=== PATIENT | female | born 1965 | race Caucasian/White ===

== ENCOUNTER 2018-07-25 12:23 | Emergency (ER) | payer SELFPAY ==
[2018-07-25 12:41] VITALS: BP 156/85; PULSE 91; RESP 18; TEMP 36.6; O2SAT 98
--- NOTE | 2018-07-25 13:03 | ED.GENADUL_ITS ---
Discharge Plan Disposition Condition: Improving Discharge Details Chief Complaint: Nausea/Vomit/Diar Clinical Impression: Gastroenteritis, UTI (urinary tract infection) Primary Care Provider: Terese Fischer ED Provider: Rashid Barakat Home Meds and New Rx's Prescriptions: New ciprofloxacin HCl [Cipro] 500 mg tablet 500 mg PO BID Qty: 10 RF: 0 No Action lisinopril 20 MG tablet 20 mg PO DAILY RF: 0 atenolol 50 MG tablet 50 mg PO DAILY Qty: 30 RF: 0 metformin 500 MG tablet 500 mg PO BID@0800,1700 Qty: 30 RF: 1 ibuprofen [Ibuprofen IB] 200 mg Tablet 600 mg PO QID PRNRF: 0 Discharge Instructions Instructions: Urinary Tract Infection in Women (ED) Additional Instructions: Small, frequent sips of fluids to maintain hydration. May use popsicles as well. Please take antibiotics as prescribed both for urinary tract infection and complicated diarrheal illness. Return for any acute concerns. Follow-up with regular doctor if not improving in 5-7 days time Medical Decision Making 53-year-old female presents from home with 1 week of nausea, intermittent episodes of nonbilious, nonbloody emesis, and loose watery stool but is also been nonbloody. Denies recent travel or suspicious food contacts. She states that she feels weak and lightheaded but is not had syncope. She has not had a fever. She is well-appearing with a reassuring exam but does appear clinically dehydrated. Differential diagnosis includes gastroenteritis, colitis, dehydration or electrolyte abnormalities. Patient had IV access established, screening labs obtained, given parenteral fluids and antiemetic. Labs reveal positive urinary tract infection with nitrates and leukoesterase. White blood cell count is 6, hematocrit 40, platelets 280. Chemistries essentially reassuring. Improved following fluids and antiemetic, able to take a popsicle by mouth. She does have both may be a complicated diarrhea and urinary tract infection I do feel treatment with fluoroquinolone is appropriate. Discussed with her home management as well as follow-up and return precautions. HPI General Mode of arrival: ambulatory . Date/Time Provider Initiated Documentation: 07/25/18 12:28 . Limitations to Documentation: no limitations . History of Present Illness 53 year old F presents to the emergency department with the chief complaint of Nausea, vomiting, loose watery stools without blood over days time, described as moderate, Quality is described as burning and aching, and is localized to the abdomen. Patient reports no radiation. Patient started experiencing this day(s) and it has been constant. No relieving factors improve symptom(s), Eating worsens symptoms . Patient notes fever/chills and nausea/vomiting. Patient did receive the following treatments prior to arrival, none Related Data Home Medications Medication Instructions Recorded Confirmed lisinopril 20 mg PO DAILY 06/18/15 07/25/18 atenolol 50 mg PO DAILY #30 tablet 01/12/16 07/25/18 metformin 500 mg PO BID@0800,1700 #30 tab 09/03/17 07/25/18 ciprofloxacin HCl [Cipro] 500 mg PO BID #10 tab 07/25/18 ibuprofen [Ibuprofen IB] 600 mg PO QID PRN 07/25/18 07/25/18 Previous Rx's Medication Instructions Recorded atenolol 50 mg PO DAILY #30 tablet 01/12/16 metformin 500 mg PO BID@0800,1700 #30 tab 09/03/17 ciprofloxacin HCl [Cipro] 500 mg PO BID #10 tab 07/25/18 Allergies Allergy/AdvReac Type Severity Reaction Status Date / Time Sulfa (Sulfonamide Allergy Hives Unverified 07/25/18 12:49 Antibiotics) General Stated Complaint: Nausea/Vomit/Diar NELSY: 3 Review of Systems Review of Systems 6 systems are reviewed and otherwise negative PFSH Social History Smoking/Tobacco Use Status: Never History History Para 5 Hx # Term Pregnancies Multiple births Hx # Pregnancies Ectopic pregnancies AB induced Hx Number of Living Children AB spontaneous Exam Narrative Exam Narrative: GEN: awake, alert, oriented 3. Pleasant, well groomed, interactive. HEAD: Normocephalic, atraumatic ENT: Mucous membranes dry, oropharynx unremarkable, External ear exam unremarkable EYES: PERRL, EOMI NECK: Full ROM, no DELORES, no menigismus CHEST/RESP: Nontender, clear to auscultation bilateral, no wheeze/rhonchi/rales CARDIOVASCULAR: RRR, no murmur, rub cindy. 2+ Rad pulse bilateral ABDOMEN: Soft, nontender, no mass. +Bowel sounds EXT: Full ROM, no edema, no rash Neuro: Grossly normal neurologic exam, conversant, interactive. Psych: Speech fluent, thoughts congruent, affect normal Course Vital Signs Temperature 36.6 C 07/25/18 12:41 Pulse 91 H 07/25/18 12:41 Respiratory Rate 18 07/25/18 12:41 Blood Pressure 156/85 H 07/25/18 12:41 Pulse Oximetry 98 07/25/18 12:41 Temperature 36.6 C 07/25/18 12:41 Temperature Source Oral 07/25/18 12:41 Pulse 91 H 07/25/18 12:41 Respiratory Rate 18 07/25/18 12:41 Respiratory Effort Non-Labored 07/25/18 12:47 Blood Pressure 156/85 H 07/25/18 12:41 Blood Pressure Position Sitting 07/25/18 12:41 Pulse Oximetry 98 07/25/18 12:41 Oxygen Delivery Method Room Air 07/25/18 12:41 Oxygen Flow Rate 0 07/25/18 12:41 Pain Level 4 07/25/18 12:41
[2018-07-25 13:16] LABS: Bilirubin Negative (Negative); Blood Trace-lysed (Negative); Clarity Sl Cloudy; Glucose Negative (Negative); Ketones Negative (Negative); Leukocyte Esterase Trace (Negative); Nitrite Positive (Negative); Specific Gravity 1.025 (1.005-1.025)
[2018-07-25] MEDS: Lactated Ringers 1,000 ML 2000 ML IV (13:20)
[2018-07-25 13:23] LABS: Bacteria Many HPF (Negative); C & S Indicated? No/Sq. Contamination; Casts Negative LPF (Negative); Crystals Negative HPF (Negative); Epithelial Cells Many HPF (Negative); Mucus Trace (Negative)
[2018-07-25] MEDS: Ondansetron 4 MG/2 ML VIAL IVP (13:29)
[2018-07-25 13:43] LABS: Abs Immature Grans 0.01 k/cumm (0.0-0.09); HCT 40.6 % (36.0-46.0); HGB 14.3 g/dL (12.0-15.5); Mean Corp. HGB Concentration 35.2 g/dL (32.0-36.0); Mean Corpuscular Volume 88.1 fL (80-95); Mean Platelet Volume 11.7 fL (8.0-11.0); Platelet Count 280 x1000/uL (130-400); RBC 4.61 m/cumm (4.00-5.20); White Blood Cell Count 6.32 k/cumm (4.4-10.8)
[2018-07-25 13:54] LABS: ALT 30 U/L (12-78); AST 13 U/L (15-37); Albumin 3.5 g/dL (3.4-5.0); Alkaline Phosphatase 99 U/L (46-116); Anion Gap 7.9 mmol/L (3-11); BUN 12 mg/dL (7-18); Bilirubin, Total 0.2 mg/dL (0.2-1.0); CO2 28.1 mmol/L (21.0-32.0); CREATININE 0.71 mg/dL (0.55-1.02); Calcium 8.8 mg/dL (8.5-10.1); Chloride 106 mmol/L (98-107); Glucose 127 mg/dL (70-100); Lipase 127 U/L (73-393); Magnesium 1.6 mg/dL (1.8-2.4); Potassium 3.8 mmol/L (3.5-5.1); Sodium 142 mmol/L (136-145); Total Protein 6.7 g/dL (6.4-8.2)
[2018-07-25 13:56] LABS: Absolute Eosinophil Count 0.44 k/cumm (0.0-0.7); Absolute Lymphocyte Count 2.15 k/cumm (1.2-3.4); Absolute Neutrophil Count 3.03 k/cumm (1.2-6.7); Atypical Lymphocytes % 6; Diff Comment Manual Differential; RBC Morphology Normal
[2018-07-25] MEDS: MAGNESIUM SULFATE 1 GM/100 ML BAG IVPB (14:28)
[2018-07-25 14:34] VITALS: BP 153/88; PULSE 69; RESP 12; TEMP 37; O2SAT 97
[2018-07-25 15:52] VITALS: BP 147/104; PULSE 68; RESP 16; O2SAT 99
== END 2018-07-25 16:01 | disposition home or self-care (01) ==
PROVIDERS: Emergency Provider Emergency Medicine; PCP Nurse Practitioner Family
DX: K52.9 Noninfective gastroenteritis and colitis, unspecified (principal); N39.0 Urinary tract infection, site not specified
CPT/HCPCS: 80053; 83690; 96365; 99284; 81003; 81015; 83735; 85025; J2405; J3475

== ENCOUNTER 2018-10-15 00:05 | Emergency (ER) | payer SELFPAY ==
[2018-10-15 00:08] VITALS: BP 153/89; PULSE 98; RESP 16; TEMP 36.5; O2SAT 98
--- NOTE | 2018-10-15 00:22 | W.ED.GENAD ---
Discharge Plan Disposition Patient Disposition: HOME Condition: Improving Discharge Details Chief Complaint: Sorethroat Clinical Impression: Right shoulder strain, Acute pharyngitis Primary Care Provider: Terese Fischer ED Provider: Rashid Barakat Home Meds and New Rx's Prescriptions: Continued lisinopril 20 MG tablet 20 mg PO DAILY RF: 0 atenolol 50 MG tablet 50 mg PO DAILY Qty: 30 RF: 0 metformin 500 MG tablet 500 mg PO BID@0800,1700 Qty: 30 RF: 1 ibuprofen [Ibuprofen IB] 200 mg Tablet 600 mg PO QID PRNRF: 0 Discharge Instructions Instructions: Pharyngitis (ED) Additional Instructions: Wear sling as needed for comfort after work and in the evenings for 3-5 days time. Gentle range of motion exercises as we discussed. May use Lidoderm patch 12 hours on, 12 hours off. Ibuprofen as needed for pain. Best taken with food. Follow-up with Terese Fischer if not improving in 1 week's time. Return to the emergency department for any acute concerns. 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 She complains of a mild sore throat and of achy right shoulder pain that is worse after her job. Afebrile and well-appearing. Her exam is reassuring and notable for right anterior glenoid tenderness without motor or sensory dysfunction. Rapid strep test obtained and negative. Sore throat likely secondary to viral URI. Patient offered Lidoderm patch and sling. Discussed with the range of motion exercises. She will be treated with acetaminophen. Given single one-time dose of dexamethasone for anti-inflammatory properties. HPI General Mode of arrival: ambulatory. Date/Time Provider Initiated Documentation: 10/15/18 00:06. Limitations to Documentation: no limitations. Information obtained by: patient. History of Present Illness 53 year old F presents to the emergency department with the chief complaint of Right shoulder pain and sore throat, described as moderate, Quality is described as aching, dull and constant, and is localized to the right and upper extremity. Patient reports no radiation. Patient started experiencing this hour(s) and it has been constant. Rest improves symptom(s), Movement worsens symptoms . Patient notes other (Sore throat and runny nose); denies chest pain, cough, fever/chills and rash. Patient did receive the following treatments prior to arrival, none Related Data Home Medications Medication Instructions Recorded Confirmed lisinopril 20 mg PO DAILY 06/18/15 10/15/18 atenolol 50 mg PO DAILY #30 tablet 01/12/16 10/15/18 metformin 500 mg PO BID@0800,1700 #30 tab 09/03/17 10/15/18 ibuprofen [Ibuprofen IB] 600 mg PO QID PRN 07/25/18 10/15/18 Previous Rx's Medication Instructions Recorded atenolol 50 mg PO DAILY #30 tablet 01/12/16 metformin 500 mg PO BID@0800,1700 #30 tab 09/03/17 Allergies Allergy/AdvReac Type Severity Reaction Status Date / Time Sulfa (Sulfonamide Allergy Hives Unverified 07/25/18 12:49 Antibiotics) General Stated Complaint: Sorethroat NELSY: 4 Review of Systems Review of Systems 6 systems reviewed and otherwise negative. 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 Pleasant, well groomed, interactive. HEAD: Normocephalic, atraumatic ENT: Mucous membranes moist, oropharynx unremarkable mild erythema to the tonsillar pillars without exudate or, External ear exam unremarkable EYES: PERRL, EOMI NECK: Full ROM, no DELORES, no menigismus CHEST/RESP: Nontender, clear to auscultation bilateral, no wheeze/rhonchi/rales CARDIOVASCULAR: RRR, no murmur, rub cindy. 2+ Rad pulse bilateral ABDOMEN: Soft, nontender, no mass. +Bowel sounds EXT: Full ROM, no edema, no rash. Right anterior shoulder tender to palpation. Motor is 5 out of 5. Sensation intact throughout. Neuro: Grossly normal neurologic exam, conversant, interactive. Psych: Speech fluent, thoughts congruent, affect normal Course Vital Signs Temperature 36.5 C 10/15/18 00:08 Pulse 98 H 10/15/18 00:08 Respiratory Rate 16 10/15/18 00:08 Blood Pressure 153/89 H 10/15/18 00:08 Pulse Oximetry 98 10/15/18 00:08 Temperature 36.5 C 10/15/18 00:08 Temperature Source Temporal Artery Scan 10/15/18 00:08 Pulse 98 H 10/15/18 00:08 Respiratory Rate 16 10/15/18 00:08 Respiratory Effort 10/15/18 00:11 Blood Pressure 153/89 H 10/15/18 00:08 Blood Pressure Position Sitting 10/15/18 00:08 Pulse Oximetry 98 10/15/18 00:08 Oxygen Delivery Method Room Air 10/15/18 00:08 Oxygen Flow Rate 0 10/15/18 00:08 Comment 10/15/18 00:08
[2018-10-15] MEDS: Dexamethasone 4 MG TAB 8 MG PO (00:33)
[2018-10-15] MEDS: Lidocaine 5% Patch 2 PATCH TP (00:33)
[2018-10-15] MEDS: Acetaminophen 500 MG TAB 1000 MG PO (00:33)
== END 2018-10-15 00:40 | disposition home or self-care (01) ==
LOC: ER 00:42
PROVIDERS: Emergency Provider Emergency Medicine; PCP Nurse Practitioner Family
DX: J02.9 Acute pharyngitis, unspecified (principal); S46.911A Strain of unspecified muscle, fascia and tendon at shoulder and upper arm level, right arm, initial encounter; X50.3XXA Overexertion from repetitive movements, initial encounter
CPT/HCPCS: 99283; J8540; L3650

== ENCOUNTER 2018-11-29 00:15 | Observation (INO) | payer SELFPAY ==
[2018-11-29] VITALS (49 sets, daily range): BP systolic 139–195; BP diastolic 69–149; PULSE 74–99; RESP 14–37; TEMP 35.7–36.6; O2SAT 94–100
--- NOTE | 2018-11-29 01:19 | W.ED.GENAD ---
Discharge Plan Disposition Patient Disposition: [facility] INPATIENT Condition: Fair Discharge Details Chief Complaint: Chest Pain Clinical Impression: Hypertensive urgency, Left arm numbness, Left arm weakness Primary Care Provider: Terese Fischer ED Provider: Heriberto Romero [place] Meds and New Rx's Prescriptions: No Action lisinopril 20 MG tablet 20 mg PO DAILY RF: 0 atenolol 50 MG tablet 50 mg PO DAILY Qty: 30 RF: 0 metformin 500 MG tablet 500 mg PO BID@0800,1700 Qty: 30 RF: 1 ibuprofen [Ibuprofen IB] 200 mg Tablet 600 mg PO QID PRNRF: 0 amlodipine 10 mg Tablet 10 mg PO DAILY RF: 0 Medical Decision Making Patient presenting with complaints of upper back pain and neck pain with associated left arm neurologic symptoms. She is hypertensive. Differential includes dissection, TIA, hypertensive urgency. Her NIH scale is 0 despite her complaining that her left arm still does not feel right. EKG is normal. We will establish IV and get laboratory studies including troponin. Dissection needs to be ruled out so we will get CTA of chest and neck. In discussion with county program technician, no good way to continue this up to brain. Obtained a noncontrast CT head. Will maintain on monitor but as of now no evidence of arrhythmia. Laboratory studies unremarkable other than slightly low potassium and glucose a little high. CT head is negative. CT chest and neck is negative. Patient's blood pressure is still elevated but better than on arrival. She remains unchanged neurologically. Should complete her evaluation with MRI of the brain and ECHO of the heart. There are no telemetry beds upstairs currently but in discussion with the hospitalist he thinks they will be in the morning. We will therefore hold the patient in the ER. Hospitalist, Dr. Gerardo, has seen the patient and put in admission orders. Lab Data Lab results reviewed: Yes I reviewed the patient's lab results. ECG Data Attestation: I personally reviewed and interpreted this ECG (s) as follows: Interpretation: Normal sinus rhythm at 75. Normal axis and intervals. No ST changes. HPI General Mode of arrival: ambulatory. Date/Time Provider Initiated Documentation: 11/29/18 00:54. Limitations to Documentation: no limitations. Information obtained by: patient and RN notes reviewed. HPI Narrative: Patient presents to ED stating she developed left arm weakness and numbness today at work. 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 Symptoms began around 5 PM. She was unable to use her left arm like she normally does and stand most of the groceries with her right arm. She developed some neck and back pain but denies having any chest pain. She denies headache. She felt a little dizzy on and off. There was no shortness of breath. She still states that her arm does not feel right although it is better. She could not afford to not finish her shift so once she finished she drove home which is up here and stopped in the ED. She has never had symptoms like this previously. She does have a history of hypertension and diabetes and has not been able to afford her medications for the last few weeks. She just got them filled today but has not taken them. Related Data Home Medications Medication Instructions Recorded Confirmed lisinopril 20 mg PO DAILY 06/18/15 11/29/18 atenolol 50 mg PO DAILY #30 tablet 01/12/16 11/29/18 metformin 500 mg PO BID@0800,1700 #30 tab 09/03/17 11/29/18 ibuprofen [Ibuprofen IB] 600 mg PO QID PRN 07/25/18 11/29/18 amlodipine 10 mg PO DAILY 11/29/18 11/29/18 Previous Rx's Medication Instructions Recorded atenolol 50 mg PO DAILY #30 tablet 01/12/16 metformin 500 mg PO BID@0800,1700 #30 tab 09/03/17 Allergies Allergy/AdvReac Type Severity Reaction Status Date / Time Sulfa (Sulfonamide Allergy Hives Unverified 07/25/18 12:49 Antibiotics) General Stated Complaint: Chest Pain NELSY: 2 Review of Systems Review of Systems 05/05 Review of Systems completed and is negative except as stated above in HPI (Systems reviewed: Const, Eyes, ENT, Resp, CV, GI, , MSK, Skin, Neuro) [facility] Medical History Diabetes mellitus (Chronic) Hypertension (Chronic) Surgical History History of tubal ligation (Chronic) Social History Smoking/Tobacco Use Status: Never Alcohol Intake: never Drug use: Never Substance use type: does not use Do you feel safe at home: Yes Do you feel safe in your relationship?: Yes History History Para 5 Hx # Term Pregnancies Multiple births Hx # Pregnancies Ectopic pregnancies AB induced Hx Number of Living Children AB spontaneous Exam Narrative Exam Narrative: Vitals: Hypertensive but otherwise normal. Normal oxygen saturation. Const: WDWN female in NAD. HEENT: NC/AT. Normal facial exam. Eyes: Normal conjunctiva and sclera. PERRL and EOMI. Neck: Supple. Trachea midline. Lungs: Normal respiratory effort. Lungs are clear. Cor: RRR without murmur/gallop. Good radial pulses. GI: Soft. NT/ND. No guarding or rebound. Neuro: A+O x 3. CN II - XII in tact. 5/5 strength with no drift. Sensory in tact. Gait normal. Speech normal. Ext: No C/C/E. No deformity or tenderness. Skin: Warm and dry without rash. Course Vital Signs Temperature 97.9 F 11/29/18 00:38 Pulse 89 11/29/18 00:38 Respiratory Rate 18 11/29/18 00:38 Blood Pressure 191/109 H 11/29/18 00:38 Pulse Oximetry 95 11/29/18 00:38 Temperature 97.9 F 11/29/18 00:38 Temperature Source Tympanic 11/29/18 00:38 Pulse 89 11/29/18 00:38 Respiratory Rate 18 11/29/18 01:08 Respiratory Effort 11/29/18 01:08 Respiratory Depth Normal 11/29/18 01:08 Respiratory Pattern Normal 11/29/18 01:08 Blood Pressure 191/109 H 11/29/18 00:38 Pulse Oximetry 95 11/29/18 00:38 Oxygen Delivery Method Room Air 11/29/18 00:38 Oxygen Flow Rate 0 11/29/18 00:38 Pain Level 5 11/29/18 00:38
--- NOTE | 2018-11-29 01:31 | DI.CT_ITS ---
SYMPTOM/DIAGNOSIS: NECK PAIN/LEFT ARM NUMBNESS/WEAKNESS CRANIAL CT (WITHOUT CONTRAST): 11/[address] was performed. The ventricular system is normal in appearance. There is no evidence of an intracranial mass lesion. There is no evidence of a subdural or epidural hematoma. No focal areas of decreased attenuation are seen. CONCLUSION: Normal noncontrast Cranial CT. CT ANGIOGRAPHY CHEST AND NECK: 11/29 CT angiography was performed with multi slice acquisition and multi planar and 3D reconstruction. CT angiography of the chest and neck was performed with intravenous infusion of 100 cc Omnipaque 350. Images obtained through the upper abdomen show unremarkable appearance of visualized portions of liver, spleen, pancreas, adrenals and left kidney. The abdominal aorta and visualized upper abdominal branches are normal. The lungs are clear. Tracheobronchial tree appears intact. No pleural effusion. No mediastinal or hilar adenopathy No evidence of pulmonary embolic disease. Thoracic aorta is of normal diameter and there is no evidence of dissection. Major branches of the aortic arch appear normal. Common carotid arteries are normal bilaterally. Internal carotid arteries are normal in appearance to the skull base with no evidence of aneurysm or dissection and no significant stenosis. Vertebral arteries, left dominant circulation. No evidence of vertebral artery stenosis, aneurysm or dissection on either side. No cervical mass or adenopathy seen. CONCLUSION: Negative CTA chest/neck
[2018-11-29 02:09] LABS: Abs Immature Grans 0.02 k/cumm (0.0-0.09); Absolute Basophil Count 0.02 k/cumm (0.0-0.2); Absolute Eosinophil Count 0.29 k/cumm (0.0-0.7); Absolute Lymphocyte Count 3.88 k/cumm (1.2-3.4); Absolute Monocyte Count 0.73 k/cumm (0.11-0.7); Absolute Neutrophil Count 3.37 k/cumm (1.2-6.7); Basophils % 0.2; Eosinophils % 3.5; HCT 40.7 % (36.0-46.0); HGB 14.7 g/dL (12.0-15.5); Immature Grans % 0.2; Lymphocytes % 46.7; Mean Corp. HGB Concentration 36.1 g/dL (32.0-36.0); Mean Corpuscular Hemoglobin 31.1 pg (27.0-33.0); Mean Corpuscular Volume 86.2 fL (80-95); Mean Platelet Volume 11.6 fL (8.0-11.0); Monocytes % 8.8; Neutrophils % 40.6; Platelet Count 287 x1000/uL (130-400); RBC 4.72 m/cumm (4.00-5.20); RBC Distribution Width 12.2 % (11.7-14.6); White Blood Cell Count 8.31 k/cumm (4.4-10.8)
[2018-11-29] MEDS: Normal Saline 1,000 ML 125 ML IV (02:12)
[2018-11-29 02:22] LABS: ALT 51 U/L (12-78); AST 27 U/L (15-37); Albumin 3.7 g/dL (3.4-5.0); Alkaline Phosphatase 131 U/L (46-116); Anion Gap 10.1 mmol/L (3-11); BUN 9 mg/dL (7-18); Bilirubin, Total 0.2 mg/dL (0.2-1.0); CO2 26.9 mmol/L (21.0-32.0); CREATININE 0.59 mg/dL (0.55-1.02); Calcium 8.8 mg/dL (8.5-10.1); Chloride 102 mmol/L (98-107); Glucose 196 mg/dL (70-100); Magnesium 1.8 mg/dL (1.8-2.4); Potassium 3.4 mmol/L (3.5-5.1); Sodium 139 mmol/L (136-145); Troponin I 0.02 ng/mL (0.00-0.06)
[2018-11-29 02:42] LABS: INR 0.9 (0.9-1.1); PTT Activated 25.2 sec (21.0-31.4); Prothrombin Time 9.3 sec (9.3-11.0)
--- NOTE | 2018-11-29 03:17 | DI.VRAD_ITS ---
EXAM: CT Head Without Contrast EXAM DATE/TIME: 11/29/2018 1:19 AM CLINICAL HISTORY: 53 years old, female; Signs and symptoms; Weakness, extremity; Left; Patient HX: L arm weakness TECHNIQUE: Imaging protocol: Axial computed tomography images of the head/brain without contrast. Coronal and sagittal reformatted images were created and reviewed. Radiation optimization: All CT scans at this facility use at least one of these dose optimization techniques: automated exposure control; mA and/or kV adjustment per patient size (includes targeted exams where dose is matched to clinical indication); or iterative reconstruction. COMPARISON: No relevant prior studies available. FINDINGS: Brain: Normal. No hemorrhage. No significant white matter disease. No edema. Ventricles: Normal. No ventriculomegaly. Bones/joints: Unremarkable. No acute fracture. Sinuses: Visualized sinuses are unremarkable. No acute sinusitis. Mastoid air cells: Visualized mastoid air cells are unremarkable. No mastoid effusion. Soft tissues: Unremarkable. IMPRESSION: No acute intracranial abnormality. Dictated and Authenticated by: Dusty Weber MD. Ordering:MALIKA Louis MD
--- NOTE | 2018-11-29 03:18 | DI.VRAD_ITS ---
EXAM: CT Angiography Neck With Contrast EXAM DATE/TIME: 11/29/2018 1:19 AM CLINICAL HISTORY: 53 years old, female; Signs and symptoms; Cough and other: L arm weakness, back pain, L side numbness; Patient HX: Back pain/left arm numbness/weakness TECHNIQUE: Imaging protocol: Axial computed tomographic angiography images of the neck with intravenous contrast using CT angiography protocol. 3D rendering: MIP reconstructed images were created and reviewed. Radiation optimization: All CT scans at this facility use at least one of these dose optimization techniques: automated exposure control; mA and/or kV adjustment per patient size (includes targeted exams where dose is matched to clinical indication); or iterative reconstruction. COMPARISON: No relevant prior studies available. FINDINGS: VASCULATURE: Right common carotid artery: Normal. No significant stenosis. No dissection or occlusion. Right internal carotid artery: Normal. Extracranial segment is patent with no significant stenosis. No dissection or occlusion. Right external carotid artery: Normal. No occlusion or significant stenosis. Right vertebral artery: Normal. No significant stenosis. No dissection or occlusion. Left common carotid artery: Normal. No significant stenosis. No dissection or occlusion. Left internal carotid artery: Normal. Extracranial segment is patent with no significant stenosis. No dissection or occlusion. Left external carotid artery: Normal. No occlusion or significant stenosis. Left vertebral artery: Normal. No significant stenosis. No dissection or occlusion. NECK: Bones/joints: C5-6 predominant degenerative disk disease and facet arthropathy with neuroforaminal and canal stenosis. Soft tissues: Normal. No significant soft tissue swelling. IMPRESSION: No acute finding. Dictated and Authenticated by: Dusty Weber MD. Ordering:MALIKA Louis MD
[2018-11-29] MEDS: Omnipaque 350 MG/ML 100 ML BTL IJ (03:26)
--- NOTE | 2018-11-29 04:40 | W.PM.HP.N ---
Date of service: 11/29/18 Time of Service: 04:40 Assessment and Plan (1) Hypertensive urgency: Current visit: Yes Status: Acute Her acute neurologic symptoms may have been secondary to hypertensive urgency in setting of microvascular disease, however, we have not completely ruled out a CVA. I will check MRI/MRA of her brain this a.m. and continue to monitor her on telemetry while she is here. I will begin treatment of her HTN w/ resumption of her prior meds but try to not drop her BP too much or too rapidly. If her MRI/MRA does not confirm a CVA then she can be discharged home once her bp is under reasonable control i.e. under 160 systolic. (2) TIA (transient ischemic attack): Current visit: Yes Status: Suspected will keep her on ASA and begin a statin while we check her MRI/MRA of the brain. She will also get an echo while she is here. If no evidence for embolic disease or PAF then she will remain on ASA 81 mg daily. (3) Diabetes mellitus type 2 in obese: Current visit: Yes Status: Chronic will withold her metformin for now as she had iv contrast. monitor glucose AC and give prn novolog per insulin sensitive sliding scale. check her A1C. (4) Essential hypertension: Current visit: Yes Status: Chronic as above. need to be cautious about not dropping her BP too rapidly and possibly worsen her neuro symptoms History of Present Illness Chief Complaint: out of bp meds, L. arm numb/heavy, weak Narrative: 53-year-old female non-smoker with a history of type 2 diabetes mellitus treated with metformin and a history of essential hypertension treated with amlodipine and lisinopril who reportedly has been out of her medications for the last 2 weeks. She has no health insurance despite working for [employer] in [facility]. Today she was at work around 5 PM when she had acute onset of left arm weakness and a feeling of heaviness in her left shoulder and arm radiating down to her left hand. 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 She is right-handed dominant. She finished up her shift around 10:30 PM and picked up her who was at work in [facility] and her encouraged her to come to the emergency department. She arrived to the emergency department around 12:30 AM. She had associated symptoms of headache and dizziness and nausea. The headache was bifrontal in location and she also noted some interscapular back pain and neck pain. On arrival to the emergency department she was noted to be hypertensive with systolic blood pressures as high as 191 and diastolic pressure of 109. Because of her acute headache and neck and back pain she underwent a CTA of her chest and neck to rule out a dissecting aneurysm. CT angiography of her neck showed no significant cervical vascular occlusion or stenosis or dissection. Bones and joints of the neck showed C5-6 predominant degenerative disc disease and facet arthropathy with neuroforaminal canal stenosis. She had no soft tissue swelling. Thoracic CTA showed no acute findings. Noncontrast CT scan of her head showed no acute intracranial abnormalities. Her ECG showed normal sinus rhythm with an isolated PVC but no acute ischemic ST or T wave changes. Laboratory studies include a CMP, magnesium level, troponin level, pro time and PTT and CBC. CMP was remarkable for elevated glucose of 196 and potassium of 3.4. Renal liver function tests were normal. Coagulation profile was normal and CBC was unremarkable. Troponin was negative at 0.02. Dr. Romero call me to see about admitting to the patient to the medical floor without telemetry. I advised him because of her hypertensive presentation and TIA like symptoms she will need telemetry monitoring. We anticipate one of our ICU beds opening up this morning and therefore the patient will be admitted temporarily to the emergency room for continued telemetry monitoring while we pursue completion of TIA work-up including an MRI/MRA of the brain and an echocardiogram. Patient will be resumed on her usual blood pressure medications. Once a telemetry bed opens up patient will be admitted overnight while her blood pressure is brought under control. I ordered a dose of aspirin 3 and 24 mg chewable to be given to the patient. Review of Systems Constitutional Reports system reviewed and no additional complaints, except as docu and Reports weakness Eyes Reports system reviewed and no additional complaints, except as docu, Denies blurry vision, Denies change in vision and Denies loss of vision ENT Reports system reviewed and no additional complaints, except as docu Cardiovascular Reports chest pain with activity and Reports dyspnea on exertion Respiratory Reports dyspnea on exertion Gastrointestinal Reports nausea and Denies vomiting Genitourinary Reports system reviewed and no additional complaints, except as docu Musculoskeletal Reports muscle weakness and Reports numbness Integumentary/Breasts Reports system reviewed and no additional complaints, except as docu Neurologic Reports as per HPI, Denies abnormal movements, Denies abnormal speech, Denies confusion, Reports lack of coordination, Reports focal weakness (Left arm and left hand), Denies loss of vision, Reports numbness, Reports paresthesias and Reports weakness Psychiatric Reports system reviewed and no additional complaints, except as docu and Denies confusion Endocrine Reports system reviewed and no additional complaints, except as docu Hematologic/Lymphatic Reports system reviewed and no additional complaints, except as docu Allergic/Immunologic Reports system reviewed and no additional complaints, except as docu PFSH Medical History Diabetes mellitus type 2 in obese (Chronic) Essential hypertension (Chronic) Diabetes mellitus (Chronic) Hypertension (Chronic) Surgical History History of tubal ligation (Resolved) Social History Smoking/Tobacco Use Status: Never Alcohol Intake: never Drug use: Never Substance use type: does not use Do you feel safe at home: Yes Do you feel safe in your relationship?: Yes History History 6 Para 5 Hx # Term Pregnancies Multiple births Hx # Pregnancies Ectopic pregnancies AB induced Hx Number of Living Children AB spontaneous Meds Home Medications Medication Instructions Recorded Confirmed Type lisinopril 20 mg PO DAILY 06/18/15 11/29/18 History atenolol 50 mg PO DAILY #30 tablet 01/12/16 11/29/18 Rx metformin 500 mg PO BID@0800,1700 #30 tab 09/03/17 11/29/18 Rx ibuprofen [Ibuprofen IB] 600 mg PO QID PRN 07/25/18 11/29/18 History amlodipine 10 mg PO DAILY 11/29/18 11/29/18 History Allergies Allergy/AdvReac Type Severity Reaction Status Date / Time Sulfa (Sulfonamide Allergy Hives Unverified 07/25/18 12:49 Antibiotics) Exam Const General: cooperative, comfortable and no acute distress Nutritional Appearance: overweight Orientation: alert, awake and oriented x3 HENMT Head: normal to inspection, no palpable skull fracture, normocephalic and atraumatic Ears: hearing grossly normal bilaterally, external ears normal and TM's normal bilaterally General nose exam: external nose normal, nares normal and nasal mucous membranes and turbinates normal Face and sinus: normal facial exam Mouth: oral mucosae normal and oropharynx normal Teeth and gingiva: dentition normal Throat: posterior oropharynx normal Eyes General: appearance normal, both eyes and all related structures Visual Hess: normal visual hess by confrontation Alignment and Position: alignment normal Periorbital: periorbital findings normal Eyelids: eyelids normal Conjunctivae: conjunctivae normal Sclera: sclerae normal Cornea: corneas normal Pupils: PERRL EOM: EOM intact bilaterally Direct ophthalmoscopy: normal light reflex Resp Effort & Inspection: normal respiratory effort and able to speak in complete sentences Auscultation: clear to auscultation bilaterally Cardio Jugular venous pressure: no JVD Palpation: normal PMI Rate: regular rate Rhythm: regular rhythm Heart Sounds: S1 normal, S2 normal, normal, physiologic split S2, no gallops, no murmurs and no rubs Pulses: normal peripheral pulses GI Inspection: obesity Palpation: soft and no hepatosplenomegaly Percussion: normal to percussion Auscultation: normal bowel sounds Back/Spine/Pelvis Back: no CVA tenderness Cervical Spine: normal cervical lordosis and cervical ROM normal Thoracic/Lumbar Spine: thoracic and lumbar spine normal to inspection Skin General skin exam: no rashes or lesions noted, elasticity normal and turgor normal Neuro General: alert, awake, oriented x3, moves all extremities, normal light touch, pain and propioception and no focal motor deficits Cranial Nerves: CN's II-XI intact bilaterally, PERRL, accommodation normal, EOM intact bilaterally, no nystagmus, facial strength normal, tongue midline, gag reflex normal, hearing normal, able to rotate head bilaterally and able to elevate shoulders bilaterally Cognition: normal cognition Speech: speech normal Motor: muscle tone normal throughout, strength 5/5 throughout, no pronator drift, no movement abnormalities noted and no fasciculations Sensory Exam: no sensory deficits noted and normal double simultaneous stimulation Plantar Reflexes: Downgoing: right and Equivocal: left Coordination: [id number] test abnormal (some difficulty w/ finger to nose testing w/ her left hand; hesitancy) Pupils: Normal pupillary reactivity/response: bilateral and Mid position: bilateral Extrem General: normal to inspection, full ROM, normal capillary refill, no joint enlargement and no clubbing, cyanosis or edema Psych Appearance: grossly normal Mental Status: mental status grossly normal Speech and Movement: speech and movement normal Mood: congruent mood Affect: normal affect Attitude: cooperative Thought Process: normal Thought Content: normal Insight: insight good Judgment: judgment good Results Imaging Additional studies: CT angiogram of neck: IMPRESSION: No acute finding. CT head w/out contrast: IMPRESSION: No acute intracranial abnormality. EKG: image reviewed Labs : 11/29/18 01:55 11/29/18 01:55 Laboratory Results - last 24 hr 11/29/18 11/29/18 11/29/18 01:55 01:55 01:55 WBC 8.31 RBC 4.72 Hgb 14.7 Hct 40.7 MCV 86.2 MCH 31.1 MCHC 36.1 H RDW 12.2 Plt Count 287 MPV 11.6 H Immature Gran % 0.2 Neutrophils % 40.6 Lymphocytes % 46.7 Monocytes % 8.8 Eosinophils % 3.5 Basophils % 0.2 Absolute Neutrophils 3.37 Absolute Lymphocytes 3.88 H Absolute Monocytes 0.73 H Absolute Eosinophils 0.29 Absolute Basophils 0.02 PT 9.3 INR 0.9 APTT 25.2 Sodium 139 Potassium 3.4 L Chloride 102 Carbon Dioxide 26.9 Anion Gap 10.1 BUN 9 Creatinine 0.59 Estimated GFR/1.73 m2 >= 60.00 Glucose 196 H Calcium 8.8 Magnesium 1.8 Total Bilirubin 0.2 AST 27 ALT 51 Alkaline Phosphatase 131 H Troponin I 0.02 Total Protein 7.0 Albumin 3.7 Last Vital Signs Temp 36.6 C 11/29/18 00:38 Pulse 82 11/29/18 03:46 Resp 20 11/29/18 03:50 BP 172/96 H 11/29/18 03:46 Pulse Ox 95 11/29/18 03:50
[2018-11-29] MEDS: Aspirin 81 MG CHEW 324 MG CH (05:37)
[2018-11-29 06:18] LABS: Cholesterol 214 mg/dL (50-200); HDL Cholesterol 65 mg/dL (40-60); LDL CHOLESTEROL 118 mg/dL (<100); Triglyceride 190 mg/dL (30-150)
--- NOTE | 2018-11-29 06:44 | NUR.NOTE ---
Nursing Note: Pt up to bathroom with steady gait. Pt's breakfast is here.
[2018-11-29 06:50] LABS: Hemoglobin A1C 7.3 % (4.5-6.2)
--- NOTE | 2018-11-29 07:00 | DI.MRI_ITS ---
SYMPTOM/DIAGNOSIS: TIA BRAIN MRI: 11/29 MRI examination of the brain was performed according to the usual protocol. There are a few scattered focal areas of increased signal in periventricular white matter consistent with mild microvascular ischemic change. No other signal abnormality identified in the brain. Ventricular system is normal in appearance. Orbital and temporal bone structures appear intact. There is normal flow void in the [place] vasculature. Diffusion weighted images shows no evidence of intracranial infarct. Susceptibility weighted imaging shows no evidence of hemorrhage. CONCLUSION: Brain MRI essentially negative for age. MR ANGIOGRAPHY [place]: 11/29 MR angiography of the region of [place] was performed according to the usual protocol. There is a left dominant vertebral circulation, Vertebral and basilar arteries appear normal. Intracranial internal carotid arteries appear normal, no evidence of aneurysm, stenosis or dissection. The middle cerebral arteries and major branches appear normal bilaterally with no evidence of aneurysm, stenosis or dissection. Anterior cerebral arteries appear normal bilaterally with no evidence of aneurysm, stenosis or dissection. Posterior cerebral arteries appear normal bilaterally with no evidence of aneurysm, stenosis or dissection. CONCLUSION: Negative MR angiography [place].
[2018-11-29] MEDS: Insulin Aspart 300 UNITS/3 ML PEN SC ×3 (07:11→16:50)
--- NOTE | 2018-11-29 07:30 | MERGE_ITS ---
*[facility]* * Cardiology* [address] [place] [address] Date of study: 11/29/2018 Transthoracic Echocardiography M-mode, complete 2D, complete spectral Doppler, and color Doppler *STUDY CONCLUSIONS* Summary: 1. Left ventricle: The cavity size was normal. Systolic function was hyperdynamic. The estimated ejection fraction was 65-70%. Findings consistent with diastolic dysfunction. There was no evidence of elevated ventricular filling pressure by Doppler parameters. 2. Aortic valve: There was mild regurgitation. 3. Mitral valve: There was mild regurgitation. 4. Left atrium: The atrium was mildly dilated. 5. Right ventricle: The cavity size was normal. Wall thickness was normal. Systolic function was normal. 6. Atrial septum: No defect or patent foramen ovale was identified. 7. Tricuspid valve: There was moderate regurgitation. 8. Pulmonary arteries: Pulmonary systolic pressure was in the range of 35mm Hg to 45mm Hg. 9. Inferior vena cava: The vessel was patent and normal in size. The respirophasic diameter changes were in the normal range (greater than or equal to 50%), consistent with normal central venous pressure. 10. Baseline ECG: Normal sinus rhythm. *PATIENT PRESENTATION* Height: 167.6cm ((66in) ) S/D Pressure: 159 / 94 Weight: 92.1kg ((202.6lb) ) BSA: 2.1m^2 Test start time: 07:45 AM. Test stop time: 08:40 AM. PERFORMING Unknown PERFORMING Nv ORDERING Michael Gerardo REFERRING Michael Gerardo CONSULTING Terese Fischer SUPERVISING EDITOR NEWS REELSHILPA Matthews RT Roth)(CT), RDCS *PROCEDURE DATA* Procedure information: The patient was identified by two identifiers. This study was interpreted by [facility]. Pertinent images and digital data are archived for permanent storage and are available for subsequent review. No prior study was available for comparison. Study status: Routine. Transthoracic echocardiography. M-mode, complete 2D, complete spectral Doppler, and color Doppler. A Transthoracic Echocardiogram was performed. Scanning was performed from the parasternal, apical, subcostal, and suprasternal notch acoustic windows. Images were obtained using an [id number] cardiac ultrasound machine. Image quality was good. Study completion: The patient tolerated the procedure well. History: PMH: TIA , left arm weakness,. dizziness. *CARDIAC ANATOMY* Left ventricle: The cavity size was normal. Systolic function was hyperdynamic. The estimated ejection fraction was 65-70%. The tissue Doppler parameters were abnormal. Findings consistent with diastolic dysfunction. There was no evidence of elevated ventricular filling pressure by Doppler parameters. Aortic valve: Trileaflet. Doppler: There was no stenosis. There was mild regurgitation. VTI ratio of LVOT to aortic valve: 0.77. Valve area (VTI): 2.3cm^2. Indexed valve area (VTI): 1.1cm^2/m^2. Peak velocity ratio of LVOT to aortic valve: 0.74. Valve area (Vmax): 2.2cm^2. Indexed valve area (Vmax): 1.1cm^2/m^2. Mean velocity ratio of LVOT to aortic valve: 0.75. Valve area (Vmean): 2.2cm^2. Indexed valve area (Vmean): 1.1cm^2/m^2. Mean gradient (S): 6.2mm Hg. Peak gradient (S): 12mm Hg. Aorta: Aortic root: The aortic root was normal in size. Ascending aorta: The ascending aorta was mildly dilated. Mitral valve: Doppler: There was no evidence for stenosis. There was mild regurgitation. Valve area by pressure half-time: 3.3cm^2. Indexed valve area by pressure half-time: 1.5cm^2/m^2. Peak gradient (D): 2.2mm Hg. Left atrium: The atrium was mildly dilated. Atrial septum: No defect or patent foramen ovale was identified. Right ventricle: The cavity size was normal. Wall thickness was normal. Systolic function was normal. Pulmonic valve: Doppler: There was no evidence for stenosis. There was no significant regurgitation. Peak gradient (S): 2.9mm Hg. Tricuspid valve: Doppler: There was moderate regurgitation. Pulmonary artery: Poorly visualized. Pulmonary systolic pressure was in the range of 35mm Hg to 45mm Hg. Right atrium: The atrium was normal in size. Pericardium: There was no pericardial effusion. Systemic veins: Inferior vena cava: Well visualized. The vessel was patent and normal in size. The respirophasic diameter changes were in the normal range (greater than or equal to 50%), consistent with normal central venous pressure. Baseline ECG: Normal sinus rhythm. Measurements Left ventricle Value Reference LV ID, ED, PLAX 4.4 cm 3.5 - 6.0 LV ID, ES, PLAX 2.8 cm 2.1 - 4.0 LV PW thickness, ED, PLAX 1.1 cm LV end-diastolic volume, 1-p A2C 65 ml LV ejection fraction, 1-p A2C 67 % LV end-diastolic volume, 1-p A4C 67 ml LV ejection fraction, 1-p A4C 64 % LV e', lateral 0.084 m/sec LV E/e', lateral 9 LV e', medial 0.069 m/sec LV E/e', medial 11 LV e', average 0.076 m/sec LV E/e', average 10 Ventricular septum Value Reference IVS thickness, ED, PLAX 1.1 cm LVOT Value Reference LVOT ID, A-P 2.0 cm LVOT area 3 cm^2 LVOT peak velocity, S 1.28 m/sec LVOT mean velocity, S 0.88 m/sec LVOT VTI, S 26.3 cm LVOT peak gradient, S 6.6 mm Hg LVOT mean gradient, S 3.5 mm Hg Stroke volume (SV), LVOT DP 79 ml Stroke index (SV/bsa), LVOT DP 37 ml/m^2 Aortic valve Value Reference Aortic valve peak velocity, S 1.7 m/sec Aortic valve mean velocity, S 1.18 m/sec Aortic valve VTI, S 34.0 cm Aortic mean gradient, S 6.2 mm Hg Aortic peak gradient, S 12 mm Hg VTI ratio, LVOT/AV 0.77 Aortic valve area, VTI 2.3 cm^2 Velocity ratio, peak, LVOT/AV 0.74 Aortic valve area, peak velocity 2.2 cm^2 Velocity ratio, mean, LVOT/AV 0.75 Aortic valve area, mean velocity 2.2 cm^2 Aortic valve area/bsa, mean velocity 1.1 cm^2/m^2 Aorta Value Reference Aortic root ID, ED 2.9 cm Ascending aorta ID, A-P, S 3.4 cm Left atrium Value Reference LA ID, A-P, ES 3.8 cm LA ID/bsa, A-P 1.8 cm/m^2 <=2.2 LA area, ES, A4C 20.8 cm^2 8.8 - 23.4 LA area, ES, A2C 20 cm^2 LA volume/bsa, ES, 1-p A4C 35 ml/m^2 LA volume, ES, 2-p 64 ml LA volume/bsa, ES, 2-p 31 ml/m^2 LA/aortic root ratio 1.31 Mitral valve Value Reference Mitral E-wave peak velocity 0.74 m/sec Mitral A-wave peak velocity 0.89 m/sec Mitral deceleration time (H) 233 ms 150 - 230 Mitral pressure half-time 68 ms Mitral peak gradient, D 2.2 mm Hg Mitral E/A ratio, peak 0.83 Mitral valve area, PHT, DP 3.3 cm^2 Pulmonary veins Value Reference Pulmonary vein peak velocity, S 0.76 m/sec Pulmonary vein peak velocity, D 0.52 m/sec Pulmonary vein velocity ratio, peak, 1.45 S/D Pulmonary vein A-wave reversal peak 0.36 m/sec velocity Tricuspid valve Value Reference Tricuspid regurg peak velocity 3.1 m/sec Tricuspid peak RV-RA gradient 38.3 mm Hg Right atrium Value Reference RA area, ES, A4C 16.7 cm^2 8.3 - 19.5 Pulmonic valve Value Reference Pulmonic peak gradient, S 2.9 mm Hg Legend: (L) and (H) agustín values outside specified reference range. I have personally reviewed the images and have reviewed and edited the reported findings. Electronically signed by Dusty Villatoro MD 11/29/2018 10:06
--- NOTE | 2018-11-29 08:01 | CMPROGNOTE_ITS ---
Care Management Progress Note 11/29-Hayley Zuñiga RN, requested that Martha be followed by the clinical staff educator once she is admitted. Hayley reports that Martha does not check her blood sugars on a regular basis and she also drinks the coffee latte drinks from [employer], several a day. Martha is being admitted. This CM discussed above with inpatient care management for diabetic education.
[2018-11-29] MEDS: Lisinopril 20 MG TAB PO (11:04)
[2018-11-29] MEDS: amLODIPine 10 MG TAB PO (11:04)
--- NOTE | 2018-11-29 13:41 | DI.MRI_ITS ---
SYMPTOMS/DIAGNOSIS: SUSPECTED RADICULOPATHY, TRANSIENT ISCHEMIC ATTACK CERVICAL SPINE MRI: MRI examination of the cervical spine was performed according to the usual protocol. No significant bony signal abnormality seen. There is no significant narrowing of the bony spinal canal or bony neural foramina. Spinal cord shows normal signal and normal diameter throughout. Note is made of a small to moderate-sized right paracentral disc herniation at C5-6 with perhaps minimal cord deformity associated at this site. Slight narrowing of right neural foramen may be present at this level as well, but this is a questionable finding. No additional disc abnormality identified in the cervical region. CONCLUSION: Small to moderate-sized right paracentral disc herniation at C5-6; question minimal associated cord deformity. Please correlate clinically and with the patient's neurologic exam.
[2018-11-29] MEDS: Ibuprofen 600 MG TAB PO (16:50)
--- NOTE | 2018-11-29 18:18 | W.PM.DS.N ---
Date of service: 11/29/18 Time of Service: 18:18 DS: Diagnosis Discharge Diagnosis (1) Herniated nucleus pulposus, C5-6 right: Status: Acute (2) Atypical chest pain: Status: Chronic (3) Hypertensive urgency: Status: Acute (4) TIA (transient ischemic attack): Status: Ruled-out (5) Diabetes mellitus type 2 in obese: Status: Chronic (6) Essential hypertension: Status: Chronic (7) Radiculopathy affecting upper extremity: Status: Acute (8) Diastolic dysfunction: Status: Chronic (9) Pulmonary hypertension: Status: Chronic (10) GEOFF (obstructive sleep apnea): Status: Suspected Discharge Plan Disposition Patient Disposition: HOME Condition: Stable Discharge Details Reason For Visit: TIA Admit Date/Time: 11/29/18 04:34 Admit Provider: Dayo Gerardo Attending Provider: Dayo Gerardo Primary Care Provider: Terese Fischer [facility] Hospital Course: Ms Rodriguez is a 53 year old female with PMHx of NIDDM2, essential hypertension, obesity with BMI of 32.8, snoring, as well as medication noncompliance due to monitory concerns, who presented to [facility] ED and was observed briefly on 11/29/18 for Left arm numbness and heaviness going on since 5 pm on 11/28/18, thought to be a TIA. There was a little bit of chest pain that the patient states she always has, neck pain a little bit of Left shoulder pain. She describes occasional numbness and tingling in both of her hands. At the time of her presentation, her troponin was negative, her BP was 191/109. There was no evidence of ACS. Chest pain was chronic and not different from her normal. She was ruled out for TIA with negative CT/CTA of her head and neck, MRI/MRA of her head. She also underwent an echocardiogram revealing EF of 65-70%, diastolic dysfunction, pulmonary hypertension with PA pressures of 35 mmHg to 45 mmHg. Her symptoms essentially resolved. She did have an MRI of her c-spine, which revealed a Small to moderate-sized right paracentral disc herniation at C5-6; question minimal associated cord deformity. The findings noted were, of course, contralateral to the symptoms the patient was having. The MRI results were discussed with neurosurgery at [facility] - outpatient follow up was felt appropriate. Patient's information was communicated to [facility] neurosurgery, who will be contacting the patient for follow up. She will also benefit from a stress test as outpatient. Her BP's are much better controlled. She had no arrhythmic events on tele. She is being discharged with her current BP meds (I am writing her a refill). The patient also would benefit from a sleep study as outpatient. She is medically stable for discharge. Please, note that in the below medication reconcilliation discontinue metformin is a system glitch. The patient is to resume metformin in 48 hours. Home Meds and New Rx's Prescriptions: New atorvastatin [Lipitor] 40 mg Tablet 40 mg PO QPM Qty: 30 RF: 0 aspirin 81 mg Tablet,Delayed Release (Dr/Ec) 81 mg PO DAILY Qty: 30 RF: 0 acetaminophen [Tylenol] 325 mg Tablet 650 mg PO Q4H PRN PRNQty: 0 RF: 0 Continued lisinopril 20 MG tablet 20 mg PO DAILY Qty: 30 RF: 0 amlodipine 10 mg Tablet 10 mg PO DAILY Qty: 30 RF: 0 atenolol 50 MG tablet 50 mg PO DAILY Qty: 30 RF: 0 metformin 500 mg Tablet 500 mg PO BID Qty: 0 RF: 0 Changed ibuprofen [Ibuprofen IB] 200 mg Tablet 400 mg PO QID PRNQty: 0 RF: 0 Discontinued metformin 500 MG tablet 500 mg PO BID@0800,1700 Qty: 30 RF: 1 Discharge Instructions Instructions: Cardiac Stress Test (DC), Chest Pain (DC), Chronic Hypertension (DC), Cervical Radiculopathy (GEN), Chronic Neck Pain (DC) Additional Instructions: Resume metformin in 48 hours. Return to the hospital with any fever, bleeding, chest pain that's not like your usual chest pain, shortness of breath. Follow up with [facility] neurosurgery and for your stress test at [facility]. Contact [facility] neurosurgery at [phone] if you don't hear from them on Sunday or Sunday next week to schedule your appointment. Make sure you discuss getting a sleep study to rule out obstructive sleep apnea with your PCP. Activity:: Activity as Tolerated Equipment/Supplies:: No Equipment Needed Diet:: Diabetic cardiac Discharge Orders Discharge Orders: Discharge Order (Routine); Ordered 11/29/18 Ordered By: Mer Gilman Other Ambulatory Orders: Nuclear Medicine Stress Test (Outpt) (ONCE) Timeframe: [id number] Facility: [facility] - Location: CARDIAC LAB Ordered By: Mer Gilman Exam Narrative Exam Narrative: General: Very pleasant obese female, sitting up comfortably in bed, A&Ox3 HEENT: EOMI, MMM, poor dentition Heart: RRR, no m/r/g Lungs: CTAB GI: abdomen is soft, nontender, nondistended Extremities: no e/c/c BLE's, 2+ pedal pulses B DS: Data Vitals/I&O Vitals and I&O: Vital Signs Temperature 36.4 C L 11/29/18 15:59 Temperature Source Tympanic 11/29/18 15:59 Pulse 94 H 11/29/18 15:59 Pulse Rhythm Regular 11/29/18 15:50 Pulse 77 11/29/18 06:20 Respiratory Rate 18 11/29/18 15:59 Respiratory Effort 11/29/18 15:50 Respiratory Depth Normal 11/29/18 15:50 Respiratory Pattern Normal 11/29/18 15:50 Blood Pressure 139/90 11/29/18 15:59 Blood Pressure Mean 102 11/29/18 06:16 Pulse Oximetry 98 11/29/18 15:59 Oxygen Delivery Method Room Air 11/29/18 15:59 Oxygen Flow Rate 0 11/29/18 15:59 Pain Level 8 11/29/18 16:50 Comment 11/29/18 14:55 Intake & Output 11/28/18 11/29/18 11/29/18 23:59 11:59 23:59 Intake Total 988.333 / 988.333 Output Total 400 / 875 475 / 875 Balance -400 / 113.333 513.333 / 113.333 Weight 92.1 kg Intake: IV 748.333 / 748.333 Oral 240 / 240 Output: Urine 400 / 875 475 / 875 Other: Urine Color Yellow Yellow Urine Appearance Clear Clear Urine Odor Normal Voiding Methods Toilet Toilet Completed studies during hospitalization [Text1]: CT brain 11/29/18: Normal noncontrast Cranial CT. CTA chest and neck 11/29/18: Negative CTA chest/neck Brain MRI 11/29/18: Brain MRI essentially negative for age. Brain MRA 11/29/18: Negative MR angiography [place] [facility] [place]. Echo 11/29/18: 1. Left ventricle: The cavity size was normal. Systolic function was hyperdynamic. The estimated ejection fraction was 65-70%. Findings consistent with diastolic dysfunction. There was no evidence of elevated ventricular filling pressure by Doppler parameters. 2. Aortic valve: There was mild regurgitation. 3. Mitral valve: There was mild regurgitation. 4. Left atrium: The atrium was mildly dilated. 5. Right ventricle: The cavity size was normal. Wall thickness was normal. Systolic function was normal. 6. Atrial septum: No defect or patent foramen ovale was identified. 7. Tricuspid valve: There was moderate regurgitation. 8. Pulmonary arteries: Pulmonary systolic pressure was in the range of 35mm Hg to 45mm Hg. 9. Inferior vena cava: The vessel was patent and normal in size. The respirophasic diameter changes were in the normal range (greater than or equal to 50%), consistent with normal central venous pressure. 10. Baseline ECG: Normal sinus rhythm. MRI c-spine 11/29/18; Small to moderate-sized right paracentral disc herniation at C5-6; question minimal associated cord deformity. Please correlate clinically and with the patient's neurologic exam. Labs on day of discharge: Labs from last 24 hours 11/29/18 11/29/18 11/29/18 01:55 01:55 01:55 WBC 8.31 RBC 4.72 Hgb 14.7 Hct 40.7 MCV 86.2 MCH 31.1 MCHC 36.1 H RDW 12.2 Plt Count 287 MPV 11.6 H Immature Gran % 0.2 Neutrophils % 40.6 Lymphocytes % 46.7 Monocytes % 8.8 Eosinophils % 3.5 Basophils % 0.2 Absolute Neutrophils 3.37 Absolute Lymphocytes 3.88 H Absolute Monocytes 0.73 H Absolute Eosinophils 0.29 Absolute Basophils 0.02 PT INR APTT Sodium Potassium Chloride Carbon Dioxide Anion Gap BUN Creatinine Estimated GFR/1.73 m2 Glucose Hemoglobin A1c 7.3 H Calcium Magnesium Total Bilirubin AST ALT Alkaline Phosphatase Troponin I Total Protein Albumin Triglycerides 190 H Total Cholesterol 214 H LDL Cholesterol Direct 118 H HDL Cholesterol 65 H 11/29/18 11/29/18 01:55 01:55 WBC RBC Hgb Hct MCV MCH MCHC RDW Plt Count MPV Immature Gran % Neutrophils % Lymphocytes % Monocytes % Eosinophils % Basophils % Absolute Neutrophils Absolute Lymphocytes Absolute Monocytes Absolute Eosinophils Absolute Basophils PT 9.3 INR 0.9 APTT 25.2 Sodium 139 Potassium 3.4 L Chloride 102 Carbon Dioxide 26.9 Anion Gap 10.1 BUN 9 Creatinine 0.59 Estimated GFR/1.73 m2 >= 60.00 Glucose 196 H Hemoglobin A1c Calcium 8.8 Magnesium 1.8 Total Bilirubin 0.2 AST 27 ALT 51 Alkaline Phosphatase 131 H Troponin I 0.02 Total Protein 7.0 Albumin 3.7 Triglycerides Total Cholesterol LDL Cholesterol Direct HDL Cholesterol PFSH Medical History Diabetes mellitus type 2 in obese (Chronic) Essential hypertension (Chronic) Diabetes mellitus (Chronic) Hypertension (Chronic) Surgical History History of tubal ligation (Resolved) Social History Smoking/Tobacco Use Status: Never Alcohol Intake: never Drug use: Never Substance use type: does not use Do you feel safe at home: Yes Do you feel safe in your relationship?: Yes History History 6 Para 5 Hx # Term Pregnancies Multiple births Hx # Pregnancies Ectopic pregnancies AB induced Hx Number of Living Children AB spontaneous
--- NOTE | 2018-11-29 18:39 | DSE_ITS ---
Date of service: 11/29/18 Time of Service: 18:18 DS: Diagnosis Discharge Diagnosis (1) Herniated nucleus pulposus, C5-6 right: Status: Acute (2) Atypical chest pain: Status: Chronic (3) Hypertensive urgency: Status: Acute (4) TIA (transient ischemic attack): Status: Ruled-out (5) Diabetes mellitus type 2 in obese: Status: Chronic (6) Essential hypertension: Status: Chronic (7) Radiculopathy affecting upper extremity: Status: Acute (8) Diastolic dysfunction: Status: Chronic (9) Pulmonary hypertension: Status: Chronic (10) GEOFF (obstructive sleep apnea): Status: Suspected Discharge Plan Disposition Patient Disposition: HOME Condition: Stable Discharge Details Reason For Visit: TIA Admit Date/Time: 11/29/18 04:34 Admit Provider: Dayo Gerardo Attending Provider: Dayo Gerardo Primary Care Provider: Terese Fischer [facility] Course Hospital Course: Ms oRdriguez is a 53 year old female with PMHx of NIDDM2, essential hypertension, obesity with BMI of 32.8, snoring, as well as medication noncompliance due to monitory concerns, who presented to [facility] ED and was observed briefly on 11/29/18 for Left arm numbness and heaviness going on since 5 pm on 11/28/18, thought to be a TIA. There was a little bit of chest pain that the patient states she always has, neck pain a little bit of Left shoulder pain. She describes occasional numbness and tingling in both of her hands. At the time of her presentation, her troponin was negative, her BP was 191/109. There was no evidence of ACS. Chest pain was chronic and not different from her normal. She was ruled out for TIA with negative CT/CTA of her head and neck, MRI/MRA of her head. She also underwent an echocardiogram revealing EF of 65-70%, diastolic dysfunction, pulmonary hypertension with PA pressures of 35 mmHg to 45 mmHg. Her symptoms essentially resolved. She did have an MRI of her c-spine, which revealed a Small to moderate-sized right paracentral disc herniation at C5-6; question minimal associated cord deformity. The findings noted were, of course, contralateral to the symptoms the patient was having. The MRI results were discussed with neurosurgery at [facility] - outpatient follow up was felt appropriate. Patient's information was communicated to [facility] neurosurgery, who will be contacting the patient for follow up. She will also benefit from a stress test as outpatient. Her BP's are much better controlled. She had no arrhythmic events on tele. She is being discharged with her current BP meds (I am writing her a refill). The patient also would benefit from a sleep study as outpatient. She is medically stable for discharge. Please, note that in the below medication reconcilliation discontinue metformin is a system glitch. The patient is to resume metformin in 48 hours. Home Meds and New Rx's Prescriptions: New atorvastatin [Lipitor] 40 mg Tablet 40 mg PO QPM Qty: 30 RF: 0 aspirin 81 mg Tablet,Delayed Release (Dr/Ec) 81 mg PO DAILY Qty: 30 RF: 0 acetaminophen [Tylenol] 325 mg Tablet 650 mg PO Q4H PRN PRNQty: 0 RF: 0 Continued lisinopril 20 MG tablet 20 mg PO DAILY Qty: 30 RF: 0 amlodipine 10 mg Tablet 10 mg PO DAILY Qty: 30 RF: 0 atenolol 50 MG tablet 50 mg PO DAILY Qty: 30 RF: 0 metformin 500 mg Tablet 500 mg PO BID Qty: 0 RF: 0 Changed ibuprofen [Ibuprofen IB] 200 mg Tablet 400 mg PO QID PRNQty: 0 RF: 0 Discontinued metformin 500 MG tablet 500 mg PO BID@0800,1700 Qty: 30 RF: 1 Discharge Instructions Instructions: Cardiac Stress Test (DC), Chest Pain (DC), Chronic Hypertension (DC), Cervical Radiculopathy (GEN), Chronic Neck Pain (DC) Additional Instructions: Resume metformin in 48 hours. Return to the hospital with any fever, bleeding, chest pain that's not like your usual chest pain, shortness of breath. Follow up with [facility] neurosurgery and for your stress test at [facility]. Contact [facility] neurosurgery at [phone] if you don't hear from them on Sunday or Sunday next week to schedule your appointment. Make sure you discuss getting a sleep study to rule out obstructive sleep apnea with your PCP. Activity:: Activity as Tolerated Equipment/Supplies:: No Equipment Needed Diet:: Diabetic cardiac Discharge Orders Discharge Orders: Discharge Order (Routine); Ordered 11/29/18 Ordered By: Mer Gilman Other Ambulatory Orders: Nuclear Medicine Stress Test (Outpt) (ONCE) Timeframe: 20181206 Facility: [facility] - Location: CARDIAC LAB Ordered By: Mer Gilman Exam Narrative Exam Narrative: General: Very pleasant obese female, sitting up comfortably in bed, A&Ox3 HEENT: EOMI, MMM, poor dentition Heart: RRR, no m/r/g Lungs: CTAB GI: abdomen is soft, nontender, nondistended Extremities: no e/c/c BLE's, 2+ pedal pulses B DS: Data Vitals/I&O Vitals and I&O: Vital Signs Temperature 36.4 C L 11/29/18 15:59 Temperature Source Tympanic 11/29/18 15:59 Pulse 94 H 11/29/18 15:59 Pulse Rhythm Regular 11/29/18 15:50 Pulse 77 11/29/18 06:20 Respiratory Rate 18 11/29/18 15:59 Respiratory Effort 11/29/18 15:50 Respiratory Depth Normal 11/29/18 15:50 Respiratory Pattern Normal 11/29/18 15:50 Blood Pressure 139/90 11/29/18 15:59 Blood Pressure Mean 102 11/29/18 06:16 Pulse Oximetry 98 11/29/18 15:59 Oxygen Delivery Method Room Air 11/29/18 15:59 Oxygen Flow Rate 0 11/29/18 15:59 Pain Level 8 11/29/18 16:50 Comment 11/29/18 14:55 Intake & Output 11/28/18 11/29/18 11/29/18 23:59 11:59 23:59 Intake Total 988.333 / 988.333 Output Total 400 / 875 475 / 875 Balance -400 / 113.333 513.333 / 113.333 Weight 92.1 kg Intake: IV 748.333 / 748.333 Oral 240 / 240 Output: Urine 400 / 875 475 / 875 Other: Urine Color Yellow Yellow Urine Appearance Clear Clear Urine Odor Normal Voiding Methods Toilet Toilet Completed studies during hospitalization [Text1]: CT brain 11/29/18: Normal noncontrast Cranial CT. CTA chest and neck 11/29/18: Negative CTA chest/neck Brain MRI 11/29/18: Brain MRI essentially negative for age. Brain MRA 11/29/18: Negative MR angiography [place] [facility] [place]. Echo 11/29/18: 1. Left ventricle: The cavity size was normal. Systolic function was hyperdynamic. The estimated ejection fraction was 65-70%. Findings consistent with diastolic dysfunction. There was no evidence of elevated ventricular filling pressure by Doppler parameters. 2. Aortic valve: There was mild regurgitation. 3. Mitral valve: There was mild regurgitation. 4. Left atrium: The atrium was mildly dilated. 5. Right ventricle: The cavity size was normal. Wall thickness was normal. Systolic function was normal. 6. Atrial septum: No defect or patent foramen ovale was identified. 7. Tricuspid valve: There was moderate regurgitation. 8. Pulmonary arteries: Pulmonary systolic pressure was in the range of 35mm Hg to 45mm Hg. 9. Inferior vena cava: The vessel was patent and normal in size. The respirophasic diameter changes were in the normal range (greater than or equal to 50%), consistent with normal central venous pressure. 10. Baseline ECG: Normal sinus rhythm. MRI c-spine 11/29/18; Small to moderate-sized right paracentral disc herniation at C5-6; question minimal associated cord deformity. Please correlate clinically and with the patient's neurologic exam. Labs on day of discharge: Labs from last 24 hours 11/29/18 11/29/18 11/29/18 01:55 01:55 01:55 WBC 8.31 RBC 4.72 Hgb 14.7 Hct 40.7 MCV 86.2 MCH 31.1 MCHC 36.1 H RDW 12.2 Plt Count 287 MPV 11.6 H Immature Gran % 0.2 Neutrophils % 40.6 Lymphocytes % 46.7 Monocytes % 8.8 Eosinophils % 3.5 Basophils % 0.2 Absolute Neutrophils 3.37 Absolute Lymphocytes 3.88 H Absolute Monocytes 0.73 H Absolute Eosinophils 0.29 Absolute Basophils 0.02 PT INR APTT Sodium Potassium Chloride Carbon Dioxide Anion Gap BUN Creatinine Estimated GFR/1.73 m2 Glucose Hemoglobin A1c 7.3 H Calcium Magnesium Total Bilirubin AST ALT Alkaline Phosphatase Troponin I Total Protein Albumin Triglycerides 190 H Total Cholesterol 214 H LDL Cholesterol Direct 118 H HDL Cholesterol 65 H 11/29/18 11/29/18 01:55 01:55 WBC RBC Hgb Hct MCV MCH MCHC RDW Plt Count MPV Immature Gran % Neutrophils % Lymphocytes % Monocytes % Eosinophils % Basophils % Absolute Neutrophils Absolute Lymphocytes Absolute Monocytes Absolute Eosinophils Absolute Basophils PT 9.3 INR 0.9 APTT 25.2 Sodium 139 Potassium 3.4 L Chloride 102 Carbon Dioxide 26.9 Anion Gap 10.1 BUN 9 Creatinine 0.59 Estimated GFR/1.73 m2 >= 60.00 Glucose 196 H Hemoglobin A1c Calcium 8.8 Magnesium 1.8 Total Bilirubin 0.2 AST 27 ALT 51 Alkaline Phosphatase 131 H Troponin I 0.02 Total Protein 7.0 Albumin 3.7 Triglycerides Total Cholesterol LDL Cholesterol Direct HDL Cholesterol PFSH Medical History Diabetes mellitus type 2 in obese (Chronic) Essential hypertension (Chronic) Diabetes mellitus (Chronic) Hypertension (Chronic) Surgical History History of tubal ligation (Resolved) Social History Smoking/Tobacco Use Status: Never Alcohol Intake: never Drug use: Never Substance use type: does not use Do you feel safe at home: Yes Do you feel safe in your relationship?: Yes History History 6 Para 5 Hx # Term Pregnancies Multiple births Hx # Pregnancies Ectopic pregnancies AB induced Hx Number of Living Children AB spontaneous
[2018-11-29 19:14] LABS: Troponin I < 0.02 ng/mL (0.00-0.06)
== END 2018-11-29 19:40 | disposition home or self-care (01) ==
LOC: ER 09:45 → MS 10:14
PROVIDERS: Admitting Provider Internal Medicine; Emergency Provider Emergency Medicine; PCP Nurse Practitioner Family; Visit Provider Internal Medicine
DX: I16.0 Hypertensive urgency (principal); G45.9 Transient cerebral ischemic attack, unspecified; I10 Essential (primary) hypertension; T50.906A Underdosing of unspecified drugs, medicaments and biological substances, initial encounter; Z91.120 Patient's intentional underdosing of medication regimen due to financial hardship; M50.122 Cervical disc disorder at C5-C6 level with radiculopathy; R20.8 Other disturbances of skin sensation; E11.9 Type 2 diabetes mellitus without complications; E66.9 Obesity, unspecified; Z79.84 Long term (current) use of oral hypoglycemic drugs; I51.89 Other ill-defined heart diseases; I27.20 Pulmonary hypertension, unspecified; G47.33 Obstructive sleep apnea (adult) (pediatric); I08.3 Combined rheumatic disorders of mitral, aortic and tricuspid valves
CPT/HCPCS: 36415; 36416; 70498; 70544; 71275; 80053; 80061; 82962; 83721; 93005; 96360; 96361; 99217; 99220; 99285; 70450; 70551; 72141; 83036; 83735; 84484; 85025; 85610; 85730; 93010; 93306; G0378; J3490

== ENCOUNTER 2019-01-25 08:14 | Emergency (ER) | payer SELFPAY ==
--- NOTE | 2019-01-25 08:16 | W.ED.GENAD ---
Discharge Plan Disposition Patient Disposition: HOME Condition: Improving Discharge Details Chief Complaint: Dizzy/Sync Clinical Impression: Vertigo, Temporomandibular joint pain Primary Care Provider: Terese Fischer ED Provider: Yokasta Yi Home Meds and New Rx's Prescriptions: New ondansetron 4 mg tablet,disintegrating 4 mg PO QID PRN (Reason: nausea and vomiting) Qty: 14 RF: 0 meclizine 25 mg tablet 25 mg PO TID PRN (Reason: dizziness) Qty: 10 RF: 0 naproxen 250 mg tablet 250 mg PO BID PRN (Reason: pain) Qty: 20 RF: 0 Continued atorvastatin [Lipitor] 40 mg Tablet 40 mg PO QPM Qty: 30 RF: 0 aspirin 81 mg Tablet,Delayed Release (Dr/Ec) 81 mg PO DAILY Qty: 30 RF: 0 acetaminophen [Tylenol] 325 mg Tablet 650 mg PO Q4H PRN PRNQty: 0 RF: 0 lisinopril 20 MG tablet 20 mg PO DAILY Qty: 30 RF: 0 amlodipine 10 mg Tablet 10 mg PO DAILY Qty: 30 RF: 0 ibuprofen [Ibuprofen IB] 200 mg Tablet 400 mg PO QID PRNQty: 0 RF: 0 atenolol 50 MG tablet 50 mg PO DAILY Qty: 30 RF: 0 metformin 500 mg Tablet 500 mg PO BID Qty: 0 RF: 0 Discharge Instructions Instructions: Vertigo (ED), Temporomandibular Disorder (ED) Additional Instructions: Encourage hydration. Please use the Zofran as prescribed to help with nausea if this reoccurs. Use the meclizine as prescribed to help with any recurrence of your vertigo. Please rest today. In regard to your left-sided jaw pain, please take the naproxen as prescribed to help with inflammation. You may augment this with Tylenol as needed for discomfort. May try heat or ice to this area. Please follow up with primary care this week for reevaluation. If you develop headaches, visual changes, weakness, or develop with a new/worsening symptoms please seek care urgently once again. Stand Alone Forms: Work Release Referrals: Terese Fischer [Primary Care Provider] - Discharge Data Discharge Date/Time-TO BE ENTERED AT DEPARTURE: 01/25/19 10:12 Medical Decision Making Patient is a 49-year-old female presents today with chief complaint of vertigo. She reports she had issues with vertigo historically and typically responds very well to meclizine. States that she awoke with the symptoms this morning. Is currently endorsing the room spinning, particularly with movements to the right. She denies any headache or visual changes. No neurologic deficit. She is also endorsing an incidental finding of left TMJ pain that began a few days ago. States it is worse with talking, opening her mouth widely. Does not have any dental pain or pain with chewing. Pain elicited with palpation of the left TMJ. I do not see any evidence of infection. Left ear is unremarkable. Patient has no signs of infection. She is noted to be hypertensive with a blood pressure of 199/103. Patient reports that she typically has quite high blood pressure, it has been elevated like this historically on chart review. Patient medical history also significant for diabetes, GEOFF, radiculopathy, herniated disc, TIA, hypertension. [place]-Hallpike maneuver was performed and positive to the right side with horizontal nystagmus. Exam is otherwise benign. Patient I discussed performing the Carter maneuver and she prefers treatment with meclizine as this worked well for us to correct historically. Will give meclizine Zofran to help with symptom medic management. I do not feel that imaging or other work-up is necessary at this time. I also encouraged hydration as the patient does appear dehydrated. Advised that this is likely associated with the heat that we have been having recently may be exacerbating her symptoms Patient is feeling much improved after Zofran and meclizine is requesting discharge home. We will give her a work note for today. Encourage hydration. I will prescribed meclizine and Zofran to help with symptomatic management. We discussed the Carter maneuver which she declines at this time. We will give her information on how to perform this at home. Patient reports that she has not been able to order picker her typical hypertension medications, states she will try to pick them up today. Has been out for the past 4 to 5 days. I rechecked her blood pressure manually and she is now 170/100. She reports the typical for her, this is confirmed with chart review. Patient was given strict return precautions. To follow-up with primary care this week for reevaluation. She will order picker her hypertensive medications as well as the prescribed medications from here today. All her questions and concerns were addressed she is in agreement this plan. HPI General Mode of arrival: ambulatory. Date/Time Provider Initiated Documentation: 01/25/19 08:15. Limitations to Documentation: no limitations. Information obtained by: patient and RN notes reviewed. History of Present Illness 53 year old F presents to the emergency department with the chief complaint of vertigo, described as severe, with intensity rated at 8. Quality is described as aching (left TMJ), and is localized to the face. Patient reports no radiation. Patient started experiencing this hour(s) and it has been constant. No relieving factors improve symptom(s), No exacerbating factors reported . Patient notes nausea/vomiting (nausea with vertigo); denies chest pain, cough, diaphoresis, fever/chills, headaches, loss of appetite, rash, shortness of breath and weakness. Patient did receive the following treatments prior to arrival, none Related Data Home Medications Medication Instructions Recorded Confirmed acetaminophen [Tylenol] 650 mg PO Q4H PRN PRN #0 tab 11/29/18 01/25/19 amlodipine 10 mg PO DAILY #30 tab 11/29/18 01/25/19 aspirin 81 mg PO DAILY #30 tab 11/29/18 01/25/19 atenolol 50 mg PO DAILY #30 tab 11/29/18 01/25/19 atorvastatin [Lipitor] 40 mg PO QPM #30 tab 11/29/18 01/25/19 ibuprofen [Ibuprofen IB] 400 mg PO QID PRN #0 tab 11/29/18 01/25/19 lisinopril 20 mg PO DAILY #30 tab 11/29/18 01/25/19 metformin 500 mg PO BID #0 tab 11/29/18 01/25/19 meclizine 25 mg PO TID PRN #10 tab 01/25/19 naproxen 250 mg PO BID PRN #20 tab 01/25/19 ondansetron 4 mg PO QID PRN #14 tab 01/25/19 Previous Rx's Medication Instructions Recorded acetaminophen [Tylenol] 650 mg PO Q4H PRN PRN #0 tab 11/29/18 amlodipine 10 mg PO DAILY #30 tab 11/29/18 aspirin 81 mg PO DAILY #30 tab 11/29/18 atenolol 50 mg PO DAILY #30 tab 11/29/18 atorvastatin [Lipitor] 40 mg PO QPM #30 tab 11/29/18 ibuprofen [Ibuprofen IB] 400 mg PO QID PRN #0 tab 11/29/18 lisinopril 20 mg PO DAILY #30 tab 11/29/18 metformin 500 mg PO BID #0 tab 11/29/18 meclizine 25 mg PO TID PRN #10 tab 01/25/19 naproxen 250 mg PO BID PRN #20 tab 01/25/19 ondansetron 4 mg PO QID PRN #14 tab 01/25/19 Allergies Allergy/AdvReac Type Severity Reaction Status Date / Time Sulfa (Sulfonamide Allergy Hives Unverified 01/25/19 08:20 Antibiotics) General NELSY: 2 Review of Systems Constitutional Reports as per HPI, Denies chills, Reports fatigue, Denies fever(s), Denies frequent falls, Denies headache(s), Denies snoring and Denies weakness Eyes Reports as per HPI, Denies blurry vision, Denies change in vision, Denies loss of peripheral vision, Denies loss of vision and Reports photophobia ENT Denies change in voice, Reports vertigo, Denies ear discharge, Denies otalgia, Reports facial pain (pain at left TMJ), Denies headache(s) and Denies neck pain Cardiovascular Reports as per HPI, Denies chest pain, Denies lightheadedness, Denies radiating jaw, neck or arm pain, Denies dyspnea and Denies dyspnea on exertion Respiratory Reports as per HPI, Denies chest congestion, Denies cough, Denies dyspnea, Denies dyspnea on exertion, Denies snoring, Denies stridor and Denies wheezing Gastrointestinal Reports as per HPI, Denies abdominal pain, Denies change in bowel habits, Denies nausea and Denies vomiting Musculoskeletal Reports as per HPI, Denies back pain, Denies myalgias, Denies muscle cramps, Denies neck pain and Denies numbness Integumentary/Breasts Reports as per HPI and Denies rash Neurologic Reports as per HPI, Denies abnormal movements, Denies abnormal speech, Denies behavioral changes, Denies confusion, Reports vertigo, Denies frequent falls, Denies headache(s), Denies focal weakness, Denies loss of vision, Denies numbness, Denies sensory deficit and Denies weakness Psychiatric Denies behavioral changes and Denies confusion Endocrine Reports fatigue Allergic/Immunologic Denies wheezing PFSH Medical History Diabetes mellitus type 2 in obese (Chronic) Essential hypertension (Chronic) Diabetes mellitus (Chronic) Hypertension (Chronic) Surgical History History of tubal ligation (Resolved) Social History Smoking/Tobacco Use Status: Never Alcohol Intake: never Drug use: Never Substance use type: does not use Do you feel safe at home: Yes Do you feel safe in your relationship?: Yes History History 6 Para 5 Hx # Term Pregnancies Multiple births Hx # Pregnancies Ectopic pregnancies AB induced Hx Number of Living Children AB spontaneous Exam Const General: cooperative, healthy appearing, uncomfortable, no acute distress, well developed and well groomed Nutritional Appearance: average body habitus and well nourished Orientation: alert, awake and oriented x3 HENMT Head: normal to inspection, no palpable skull fracture, normocephalic and atraumatic Ears: hearing grossly normal bilaterally, external ears normal and TM's normal bilaterally General nose exam: external nose normal Face and sinus: no crepitus, no edema, no fluctuance, tenderness on the left (TMJ) and dry mucous membranes Mouth: oral mucosae normal, lip normal, tongue normal, oropharynx normal, mucous membranes dry, no muffled voice, abnormal TMJ (pain with palpation over the left TMJ), no trismus and No restricted motion Teeth and gingiva: dentition normal Throat: posterior oropharynx normal Eyes General: appearance normal, both eyes and all related structures Alignment and Position: alignment normal Periorbital: periorbital findings normal Eyelids: eyelids normal Sclera: sclerae normal Cornea: corneas normal Pupils: PERRL EOM: EOM intact bilaterally Neck Neck: normal visual inspection, full ROM, no lymphadenopathy and no meningeal signs Resp Effort & Inspection: normal respiratory effort, able to speak in complete sentences and no respiratory distress Auscultation: clear to auscultation bilaterally, no rales, no rhonchi and no wheezes Cardio Rate: regular rate Rhythm: regular rhythm Heart Sounds: S1 normal and S2 normal GI Inspection: normal to inspection and non-distended Palpation: soft, no hepatosplenomegaly, not firm, no guarding, not rigid and nontender Percussion: normal to percussion Auscultation: normal bowel sounds Back/Spine/Pelvis Cervical Spine: normal cervical lordosis and cervical ROM normal Skin General skin exam: no rashes or lesions noted Neuro General: alert, awake and oriented x3 Cranial Nerves: CN's II-XI intact bilaterally Cognition: normal cognition Speech: speech normal Gait: normal gait Motor: muscle tone normal throughout, strength 5/5 throughout, no pronator drift, no movement abnormalities noted and no fasciculations Sensory Exam: no sensory deficits noted Coordination: [id number] test normal and [id number] test normal Extrem General: normal to inspection, normal capillary refill, no pedal edema and no calf tenderness Psych Appearance: grossly normal and well kempt Mental Status: mental status grossly normal Speech and Movement: speech and movement normal
[2019-01-25 08:17] VITALS: BP 199/103; PULSE 66; RESP 14; TEMP 36.5; O2SAT 97
[2019-01-25] MEDS: Ondansetron O.D.T. 4 MG TABEF PO (08:49)
[2019-01-25] MEDS: Meclizine 25 MG TAB PO (08:49)
--- NOTE | 2019-01-25 08:51 | ED.GENADUL_ITS ---
Discharge Plan Disposition Patient Disposition: HOME Condition: Improving Discharge Details Chief Complaint: Dizzy/Sync Clinical Impression: Vertigo, Temporomandibular joint pain Primary Care Provider: Terese Fischer ED Provider: Yokasta Yi Home Meds and New Rx's Prescriptions: New ondansetron 4 mg tablet,disintegrating 4 mg PO QID PRN (Reason: nausea and vomiting) Qty: 14 RF: 0 meclizine 25 mg tablet 25 mg PO TID PRN (Reason: dizziness) Qty: 10 RF: 0 naproxen 250 mg tablet 250 mg PO BID PRN (Reason: pain) Qty: 20 RF: 0 Continued atorvastatin [Lipitor] 40 mg Tablet 40 mg PO QPM Qty: 30 RF: 0 aspirin 81 mg Tablet,Delayed Release (Dr/Ec) 81 mg PO DAILY Qty: 30 RF: 0 acetaminophen [Tylenol] 325 mg Tablet 650 mg PO Q4H PRN PRNQty: 0 RF: 0 lisinopril 20 MG tablet 20 mg PO DAILY Qty: 30 RF: 0 amlodipine 10 mg Tablet 10 mg PO DAILY Qty: 30 RF: 0 ibuprofen [Ibuprofen IB] 200 mg Tablet 400 mg PO QID PRNQty: 0 RF: 0 atenolol 50 MG tablet 50 mg PO DAILY Qty: 30 RF: 0 metformin 500 mg Tablet 500 mg PO BID Qty: 0 RF: 0 Discharge Instructions Instructions: Vertigo (ED), Temporomandibular Disorder (ED) Additional Instructions: Encourage hydration. Please use the Zofran as prescribed to help with nausea if this reoccurs. Use the meclizine as prescribed to help with any recurrence of your vertigo. Please rest today. In regard to your left-sided jaw pain, please take the naproxen as prescribed to help with inflammation. You may augment this with Tylenol as needed for discomfort. May try heat or ice to this area. Please follow up with primary care this week for reevaluation. If you develop headaches, visual changes, weakness, or develop with a new/worsening symptoms please seek care urgently once again. Stand Alone Forms: Work Release Referrals: Terese Fischer [Primary Care Provider] - Discharge Data Discharge Date/Time-TO BE ENTERED AT DEPARTURE: 01/25/19 10:12 Medical Decision Making Patient is a 49-year-old female presents today with chief complaint of vertigo. She reports she had issues with vertigo historically and typically responds very well to meclizine. States that she awoke with the symptoms this morning. Is currently endorsing the room spinning, particularly with movements to the right. She denies any headache or visual changes. No neurologic deficit. She is also endorsing an incidental finding of left TMJ pain that began a few days ago. States it is worse with talking, opening her mouth widely. Does not have any d ental pain or pain with chewing. Pain elicited with palpation of the left TMJ. I do not see any evidence of infection. Left ear is unremarkable. Patient has no signs of infection. She is noted to be hypertensive with a blood pressure of 199/103. Patient reports that she typically has quite high blood pressure, it has been elevated like this historically on chart review. Patient medical hist ory also significant for diabetes, GEOFF, radiculopathy, herniated disc, TIA, hypertension. [place]-Hallpike maneuver was performed and positive to the right side with horizontal nystagmus. Exam is otherwise benign. Patient I discussed performing the Carter maneuver and she prefers treatment with meclizine as this worked well for us to correct historically. Will give meclizine Zofran to help with symptom medic management. I do not feel that imaging or other work-up is necessary at this time. I also encouraged hydration as the patient does appear dehydrated. Advised that this is likely associated with the heat that we have been having recently may be exacerbating her symptoms Patient is feeling much improved after Zofran and meclizine is requesting discharge home. We will give her a work note for today. Encourage hydration. I will prescribed meclizine and Zofran to help with symptomatic management. We discussed the Carter maneuver which she declines at this time. We will give her information on how to perform this at home. Patient reports that she has not been able to miner pick her typical hypertension medications, states she will try to pick them up today. Has been out for the past 4 to 5 days. I rechecked her blood pressure manually and she is now 170/100. She reports the typical for her, this is confirmed with chart review. Patient was given strict return precautions. To follow-up with primary care this week for reevaluation. She will miner pick her hypertensive medications as well as the prescribed medications from here today. All her questions and concerns were addressed she is in agreement this plan. HPI General Mode of arrival: ambulatory . Date/Time Provider Initiated Documentation: 01/25/19 08:15 . Limitations to Documentation: no limitations . Information obtained by: patient and RN notes reviewed . History of Present Illness 53 year old F presents to the emergency department with the chief complaint of vertigo, described as severe, with intensity rated at 8. Quality is described as aching (left TMJ), and is localized to the face. Patient reports no radiation. Patient started experiencing this hour(s) and it has been constant. No relieving factors improve symptom(s), No exacerbating factors reported . Patient notes nausea/vomiting (nausea with vertigo); denies chest pain, cough, diaphoresis, fever/chills, headaches, loss of appetite, rash, shortness of breath and weakness. Patient did receive the following treatments prior to arrival, none Related Data Home Medications Medication Instructions Recorded Confirmed acetaminophen [Tylenol] 650 mg PO Q4H PRN PRN #0 tab 11/29/18 01/25/19 amlodipine 10 mg PO DAILY #30 tab 11/29/18 01/25/19 aspirin 81 mg PO DAILY #30 tab 11/29/18 01/25/19 atenolol 50 mg PO DAILY #30 tab 11/29/18 01/25/19 atorvastatin [Lipitor] 40 mg PO QPM #30 tab 11/29/18 01/25/19 ibuprofen [Ibuprofen IB] 400 mg PO QID PRN #0 tab 11/29/18 01/25/19 lisinopril 20 mg PO DAILY #30 tab 11/29/18 01/25/19 metformin 500 mg PO BID #0 tab 11/29/18 01/25/19 meclizine 25 mg PO TID PRN #10 tab 01/25/19 naproxen 250 mg PO BID PRN #20 tab 01/25/19 ondansetron 4 mg PO QID PRN #14 tab 01/25/19 Previous Rx's Medication Instructions Recorded acetaminophen [Tylenol] 650 mg PO Q4H PRN PRN #0 tab 11/29/18 amlodipine 10 mg PO DAILY #30 tab 11/29/18 aspirin 81 mg PO DAILY #30 tab 11/29/18 atenolol 50 mg PO DAILY #30 tab 11/29/18 atorvastatin [Lipitor] 40 mg PO QPM #30 tab 11/29/18 ibuprofen [Ibuprofen IB] 400 mg PO QID PRN #0 tab 11/29/18 lisinopril 20 mg PO DAILY #30 tab 11/29/18 metformin 500 mg PO BID #0 tab 11/29/18 meclizine 25 mg PO TID PRN #10 tab 01/25/19 naproxen 250 mg PO BID PRN #20 tab 01/25/19 ondansetron 4 mg PO QID PRN #14 tab 01/25/19 Allergies Allergy/AdvReac Type Severity Reaction Status Date / Time Sulfa (Sulfonamide Allergy Hives Unverified 01/25/19 08:20 Antibiotics) General NELSY: 2 Review of Systems Constitutional Reports as per HPI, Denies chills, Reports fatigue, Denies fever(s), Denies frequent falls, Denies headache(s), Denies snoring and Denies weakness Eyes Reports as per HPI, Denies blurry vision, Denies change in vision, Denies loss of peripheral vision, Denies loss of vision and Reports photophobia ENT Denies change in voice, Reports vertigo, Denies ear discharge, Denies otalgia, Reports facial pain (pain at left TMJ), Denies headache(s) and Denies neck pain Cardiovascular Reports as per HPI, Denies chest pain, Denies lightheadedness, Denies radiating jaw, neck or arm pain, Denies dyspnea and Denies dyspnea on exertion Respiratory Reports as per HPI, Denies chest congestion, Denies cough, Denies dyspnea, Denies dyspnea on exertion, Denies snoring, Denies stridor and Denies wheezing Gastrointestinal Reports as per HPI, Denies abdominal pain, Denies change in bowel habits, Denies nausea and Denies vomiting Musculoskeletal Reports as per HPI, Denies back pain, Denies myalgias, Denies muscle cramps, Denies neck pain and Denies numbness Integumentary/Breasts Reports as per HPI and Denies rash Neurologic Reports as per HPI, Denies abnormal movements, Denies abnormal speech, Denies behavioral changes, Denies confusion, Reports vertigo, Denies frequent falls, Denies headache(s), Denies focal weakness, Denies loss of vision, Denies numbness, Denies sensory deficit and Denies weakness Psychiatric Denies behavioral changes and Denies confusion Endocrine Reports fatigue Allergic/Immunologic Denies wheezing [facility] Medical History Diabetes mellitus type 2 in obese (Chronic) Essential hypertension (Chronic) Diabetes mellitus (Chronic) Hypertension (Chronic) Surgical History History of tubal ligation (Resolved) Social History Smoking/Tobacco Use Status: Never Alcohol Intake: never Drug use: Never Substance use type: does not use Do you feel safe at home: Yes Do you feel safe in your relationship?: Yes History History 6 Para 5 Hx # Term Pregnancies Multiple births Hx # Pregnancies Ectopic pregnancies AB induced Hx Number of Living Children AB spontaneous Exam Const General: cooperative, healthy appearing, uncomfortable, no acute distress, well developed and well groomed Nutritional Appearance: average body habitus and well nourished Orientation: alert, awake and oriented x3 HENMT Head: normal to inspection, no palpable skull fracture, normocephalic and atraumatic Ears: hearing grossly normal bilaterally, external ears normal and TM's normal bilaterally General nose exam: external nose normal Face and sinus: no crepitus, no edema, no fluctuance, tenderness on the left (TMJ) and dry mucous membranes Mouth: oral mucosae normal, lip normal, tongue normal, oropharynx normal, mucous membranes dry, no muffled voice, abnormal TMJ (pain with palpation over the left TMJ), no trismus and No restricted motion Teeth and gingiva: dentition normal Throat: posterior oropharynx normal Eyes General: appearance normal, both eyes and all related structures Alignment and Position: alignment normal Periorbital: periorbital findings normal Eyelids: eyelids normal Sclera: sclerae normal Cornea: corneas normal Pupils: PERRL EOM: EOM intact bilaterally Neck Neck: normal visual inspection, full ROM, no lymphadenopathy and no meningeal signs Resp Effort & Inspection: normal respiratory effort, able to speak in complete sentences and no respiratory distress Auscultation: clear to auscultation bilaterally, no rales, no rhonchi and no wheezes Cardio Rate: regular rate Rhythm: regular rhythm Heart Sounds: S1 normal and S2 normal GI Inspection: normal to inspection and non-distended Palpation: soft, no hepatosplenomegaly, not firm, no guarding, not rigid and nontender Percussion: normal to percussion Auscultation: normal bowel sounds Back/Spine/Pelvis Cervical Spine: normal cervical lordosis and cervical ROM normal Skin General skin exam: no rashes or lesions noted Neuro General: alert, awake and oriented x3 Cranial Nerves: CN's II-XI intact bilaterally Cognition: normal cognition Speech: speech normal Gait: normal gait Motor: muscle tone normal throughout, strength 5/5 throughout, no pronator drift, no movement abnormalities noted and no fasciculations Sensory Exam: no sensory deficits noted Coordination: [id number] test normal and [id number] test normal Extrem General: normal to inspection, normal capillary refill, no pedal edema and no calf tenderness Psych Appearance: grossly normal and well kempt Mental Status: mental status grossly normal Speech and Movement: speech and movement normal
[2019-01-25 10:01] VITALS: BP 172/69; PULSE 65; RESP 18; O2SAT 95
== END 2019-01-25 10:12 | disposition home or self-care (01) ==
PROVIDERS: Emergency Provider Physician Assistant; PCP Nurse Practitioner Family
DX: R42 Dizziness and giddiness (principal); M26.622 Arthralgia of left temporomandibular joint; R11.0 Nausea; E11.9 Type 2 diabetes mellitus without complications; I10 Essential (primary) hypertension
CPT/HCPCS: 99283

== ENCOUNTER 2019-06-01 05:50 | Emergency (ER) | payer SELFPAY ==
[2019-06-01 05:58] VITALS: BP 199/124; PULSE 86; RESP 16; TEMP 36.5; O2SAT 98
--- NOTE | 2019-06-01 06:47 | ED.GENADUL_ITS ---
Discharge Plan Disposition Patient Disposition: HOME Condition: Good Discharge Details Chief Complaint: Dizzy/Sync Clinical Impression: Dizziness Primary Care Provider: Terese Fischer ED Provider: Dorian Almanzar Home Meds and New Rx's Prescriptions: New meclizine 25 mg tablet 25 mg PO TID Qty: 60 RF: 0 ondansetron HCl [Zofran] 4 mg tablet 4 mg PO Q8H Qty: 14 RF: 0 No Action ondansetron 4 mg tablet,disintegrating 4 mg PO QID PRN (Reason: nausea and vomiting) Qty: 14 RF: 0 meclizine 25 mg tablet 25 mg PO TID PRN (Reason: dizziness) Qty: 10 RF: 0 naproxen 250 mg tablet 250 mg PO BID PRN (Reason: pain) Qty: 20 RF: 0 atorvastatin [Lipitor] 40 mg Tablet 40 mg PO QPM Qty: 30 RF: 0 aspirin 81 mg Tablet,Delayed Release (Dr/Ec) 81 mg PO DAILY Qty: 30 RF: 0 acetaminophen [Tylenol] 325 mg Tablet 650 mg PO Q4H PRN PRNQty: 0 RF: 0 lisinopril 20 MG tablet 20 mg PO DAILY Qty: 30 RF: 0 amlodipine 10 mg Tablet 10 mg PO DAILY Qty: 30 RF: 0 ibuprofen [Ibuprofen IB] 200 mg Tablet 400 mg PO QID PRNQty: 0 RF: 0 atenolol 50 MG tablet 50 mg PO DAILY Qty: 30 RF: 0 metformin 500 mg Tablet 500 mg PO BID Qty: 0 RF: 0 Discharge Instructions Instructions: Dizziness (ED) Additional Instructions: At this time your signs and symptoms are concerning for peripheral vertigo. Jessica adlerase take the Zofran and meclizine as directed for this. It is very important that you take your home blood pressure medications, please take this as often as directed. If your symptoms persist or do not improve I would recommend immediate return for the imaging that we discussed. If you notice any worsening of your symptoms, or any new symptoms such as vomiting, diarrhea, fever, chills, shortness of breath, chest pain, numbness, weakness, or fainting , please return immediately to the emergency department for reevaluation. Please follow up with your primary care provider as soon as possible for reassessment and reevaluation. As always, it was a pleasure participating in your medical care today. Stand Alone Forms: Work Release Referrals: Terese Fischer [Primary Care Provider] - Medical Decision Making This is a 54-year-old female with past medical history of chronic hypertension, chronic vertigo, medical noncompliance and diabetes. She presents today for evaluation of mild dizziness. She states that she was driving to work when she turned her head suddenly, and this caused a room spinning sensation. She denies any tinnitus. Symptoms resolved on their own, however she is still sensitive if she moves her head quickly. She denies any chest pain or shortness of breath. She denies any headache. She denies any numbness tingling or weakness. Physical exam demonstrates a normal neurologic exam, no focal neurologic deficits. Patient had an MRI of her head 5 months ago which was normal. She states that her symptoms have otherwise been unchanged since then with her chronic dizziness. Physical exam shows signs and symptoms concerning for peripheral etiology, and clinically inconsistent with central etiology. Signs and symptoms are inconsistent with cerebellar infarct, or acute life- threatening intracranial abnormality at this time. However I did discuss getting further imaging, and that this time the patient states that she would like to hold off on any additional imaging. We will give Zofran and meclizine and reassess. EKG shows no evidence of STEMI or significant abnormality. She does have an inversion in lead III but this is present on prior EKGs. No acute changes. 7:49 AM Repeat exam after medication demonstrates notable improvement of her symptoms. She ambulates well and she does not show any signs of ataxia. Symptoms seem improved. Blood pressure is lowered, I did offer to give her her home blood pressure medications but she does not want these at this time and will take her home meds. She has been able to tolerate p.o. and is able to tolerate oral medications now in general though. I did again offer repeat imaging however she would still like to hold off at this time. With her improvement of her symptoms, and her symptoms being clinically consistent with a peripheral etiology she will be discharged home. We will give Zofran and meclizine for home use, recommend close follow-up with her PCP. Discussed the absolute importance of following her antihypertensive medication regimen. I have extensively reviewed the treatment plan and discharge instructions with the patient. I have addressed all patient concerns at this time. The patient was made aware of what symptoms to monitor for that would warrant a return to the emergency department. Discussed the plan with the patient, they demonstrate verbal understanding and agreement with our assessment and plan at this time. EKG 1: 03 Rate 75, intervals normal, sinus rhythm, no significant ST elevations or depressions, inverted T wave is present in lead III, however this is present on prior EKG from 11/29/2018 as well as 11/01/2016. HPI General Date/Time Provider Initiated Documentation: 06/01/19 05:52 . HPI Narrative: 54-year-old female with a past medical history of medical no ncompliance, hypertension, chronic vertigo, diabetes, presents today for evaluation of dizziness. Patient states that she chronically has vertigo and is always dizzy, because of this often vomits in the morning, and because of this she does not take her blood pressure medications. This morning she was driving to work when she turned her head suddenly and felt notably dizzy which is slightly atypical. She stopped, rested, symptoms went away on their own, she drove to the ER for further evaluation. Currently she states that she feels better and the dizziness is improved. She is concerned that she does need a work note though because she did not arrive at work that her required time. She denies any headache, chest pain, shortness of breath, arm neck or shoulder pain. She denies any numbness or tingling. She denies any recent falls. She denies any vision changes. She describes the dizziness is being made worse with movement of her head, and a room spinning sensation. She denies any tinnitus. She has no other complaints at this time. Related Data Home Medications Medication Instructions Recorded Confirmed acetaminophen [Tylenol] 650 mg PO Q4H PRN PRN #0 tab 11/29/18 01/25/19 amlodipine 10 mg PO DAILY #30 tab 11/29/18 01/25/19 aspirin 81 mg PO DAILY #30 tab 11/29/18 01/25/19 atenolol 50 mg PO DAILY #30 tab 11/29/18 01/25/19 atorvastatin [Lipitor] 40 mg PO QPM #30 tab 11/29/18 01/25/19 ibuprofen [Ibuprofen IB] 400 mg PO QID PRN #0 tab 11/29/18 01/25/19 lisinopril 20 mg PO DAILY #30 tab 11/29/18 01/25/19 metformin 500 mg PO BID #0 tab 11/29/18 01/25/19 meclizine 25 mg PO TID PRN #10 tab 01/25/19 naproxen 250 mg PO BID PRN #20 tab 01/25/19 ondansetron 4 mg PO QID PRN #14 tab 01/25/19 meclizine 25 mg PO TID #60 tab 06/01/19 ondansetron HCl [Zofran] 4 mg PO Q8H #14 tab 06/01/19 Previous Rx's Medication Instructions Recorded acetaminophen [Tylenol] 650 mg PO Q4H PRN PRN #0 tab 11/29/18 amlodipine 10 mg PO DAILY #30 tab 11/29/18 aspirin 81 mg PO DAILY #30 tab 11/29/18 atenolol 50 mg PO DAILY #30 tab 11/29/18 atorvastatin [Lipitor] 40 mg PO QPM #30 tab 11/29/18 ibuprofen [Ibuprofen IB] 400 mg PO QID PRN #0 tab 11/29/18 lisinopril 20 mg PO DAILY #30 tab 11/29/18 metformin 500 mg PO BID #0 tab 11/29/18 meclizine 25 mg PO TID PRN #10 tab 01/25/19 naproxen 250 mg PO BID PRN #20 tab 01/25/19 ondansetron 4 mg PO QID PRN #14 tab 01/25/19 meclizine 25 mg PO TID #60 tab 06/01/19 ondansetron HCl [Zofran] 4 mg PO Q8H #14 tab 06/01/19 Allergies Allergy/AdvReac Type Severity Reaction Status Date / Time Sulfa (Sulfonamide Allergy Hives Unverified 01/25/19 08:20 Antibiotics) General Stated Complaint: Dizzy/Sync NELSY: 3 Review of Systems All systems reviewed & are unremarkable except as noted in HPI and below PFSH Social History Smoking/Tobacco Use Status: Never Alcohol Intake: never Drug use: Never Substance use type: does not use Do you feel safe at home: Yes Do you feel safe in your relationship?: Yes History History 6 Para 5 Hx # Term Pregnancies Multiple births Hx # Pregnancies Ectopic pregnancies AB induced Hx Number of Living Children AB spontaneous Exam Narrative Exam Narrative: 1.Const: Well-nourished, Well-developed, appearing stated age 2.Eyes: PERRL, no conjunctival injection, and symmetrical lids. Notable horizontal nystagmus. No vertical or rotatory nystagmus. 3.ENT: Atraumatic external nose and ears. Moist MM. Neck: Symmetric, trachea midline, No thyromegaly. No evidence of otitis media or externa. 4.CVS: +S1/S2, No murmurs or gallops. Peripheral pulses 2+ and equal in all extremities. Brisk capillary refill in all extremities. 5.RESP: Unlabored respiratory effort. Clear to auscultation bilaterally. No wheezes rales or rhonchi 6.GI: Soft, Nontender/Nondistended, No hepatosplenomegaly. No guarding or rebound. 7.MSK: Normocephalic/Atraumatic, Extremities w/o deformity or ttp No cyanosis or clubbing, Normal movement of all extremities 8.Skin: Warm, Dry. No rashes or lesions. 9.Neuro: inserting operator II-XII grossly intact. Sensation grossly intact, no focal neurologic deficits. All 6 cardinal planes of vision are fully intact. No evidence of rotatory or vertical nystagmus. The patient demonstrated a normal [id number], good dexterity. There was no evidence of dysdiadochokinesia. Patient was able to ambulate without difficulty. There was no wide-based gait. Romberg, and [id number] are both normal on testing. Sensation was intact bilaterally as well as muscle strength bilaterally for all extremities. Patient was able to verbalize butter cup with no slurring, or miss pronunciation. Cerebellar function testing is normal. The patient demonstrates a normal hints exam with no findings concerning for a central event. No vertical nystagmus. She does have notable horizontal nystagmus though. The head impulse test notably worsens her symptoms and is positive suggestive of a peripheral etiology. Normal test of skew. No suggestion of a central cerebellar event. 10.Psych: (AAO) x3. Appropriate mood and affect Course Vital Signs Vital signs: Vital Signs Temperature 36.5 C 06/01/19 05:58 Pulse 86 06/01/19 05:58 Respiratory Rate 16 06/01/19 05:58 Blood Pressure 199/124 H 11/10/19 05:58 Pulse Oximetry 98 06/01/19 05:58 Temperature 36.5 C 06/01/19 05:58 Temperature Source Tympanic 06/01/19 05:58 Pulse 86 06/01/19 05:58 Respiratory Rate 16 06/01/19 05:58 Respiratory Effort 06/01/19 06:03 Blood Pressure 199/124 H 06/01/19 05:58 Blood Pressure Position Sitting 06/01/19 05:58 Pulse Oximetry 98 06/01/19 05:58 Oxygen Delivery Method Room Air 06/01/19 05:58 Oxygen Flow Rate 0 06/01/19 05:58 Pain Level 0 06/01/19 05:58
[2019-06-01] MEDS: Ondansetron 0.8 MG/ML Solution 4 MG PO (07:04)
[2019-06-01] MEDS: Meclizine 25 MG TAB PO (07:04)
[2019-06-01 07:53] VITALS: BP 176/103; PULSE 68; RESP 18; TEMP 36.4; O2SAT 97
[2019-06-01 07:59] VITALS: RESP 14
== END 2019-06-01 08:02 | disposition home or self-care (01) ==
PROVIDERS: Emergency Provider Student in an Organized Health Care Education/Training Program; PCP Nurse Practitioner Family
DX: R42 Dizziness and giddiness (principal); I10 Essential (primary) hypertension; E11.9 Type 2 diabetes mellitus without complications; Z79.84 Long term (current) use of oral hypoglycemic drugs
CPT/HCPCS: 93005; 99283; 93010; J8597

== ENCOUNTER 2019-07-19 00:02 | Emergency (ER) | payer SELFPAY ==
[2019-07-19 00:05] VITALS: BP 183/122; PULSE 132; RESP 96; TEMP 36.2
--- NOTE | 2019-07-19 00:12 | ED.GENADUL_ITS ---
Discharge Plan Disposition Patient Disposition: HOME Condition: Stable Discharge Details Chief Complaint: RespSymp Clinical Impression: Community acquired pneumonia Primary Care Provider: Carl Garvey ED Provider: Dusty Israel Home Meds and New Rx's Prescriptions: New amoxicillin-pot clavulanate [Augmentin] 875-125 mg tablet 1 tab PO BID Qty: 14 RF: 0 azithromycin 250 mg tablet 250 mg PO DAILY 4 Days Qty: 4 RF: 0 Continued hydrochlorothiazide 25 mg tablet 12.5 mg PO DAILY RF: 0 metoprolol succinate 50 mg tablet extended release 24 hr 50 mg PO DAILY RF: 0 meclizine 25 mg tablet 25 mg PO TID PRN (Reason: dizziness) Qty: 10 RF: 0 naproxen 250 mg tablet 250 mg PO BID PRN (Reason: pain) Qty: 20 RF: 0 atorvastatin [Lipitor] 40 mg Tablet 40 mg PO QPM Qty: 30 RF: 0 aspirin 81 mg Tablet,Delayed Release (Dr/Ec) 81 mg PO DAILY Qty: 30 RF: 0 acetaminophen [Tylenol] 325 mg Tablet 650 mg PO Q4H PRN PRNQty: 0 RF: 0 lisinopril 20 MG tablet 20 mg PO DAILY Qty: 30 RF: 0 amlodipine 10 mg Tablet 10 mg PO DAILY Qty: 30 RF: 0 ibuprofen [Ibuprofen IB] 200 mg Tablet 400 mg PO QID PRNQty: 0 RF: 0 atenolol 50 MG tablet 50 mg PO DAILY Qty: 30 RF: 0 metformin 500 mg Tablet 500 mg PO BID Qty: 0 RF: 0 Discharge Instructions Instructions: Community Acquired Pneumonia (ED) Additional Instructions: follow up with your primary care provider within 1 week if you feel more ill, have worsening shortness of breath or weakness return to the emergency department Stand Alone Forms: Work Release Medical Decision Making 54 yo female with hx of htn who hasn't been taking her meds, t2dm, who comes in with 2 weeks of worsening cough and also has had chills without fevers, no vomit, no recent travel. Has had a sore throat and left ear pain as well and body aches. On exam she is speaking in full sentences and has wheezing in both lower lobes with rhonchi also in right lower lobe. HAs normal tm's and normal oropharynx, no pain over hyoid or restricted neck movements. HAs HR of 98 on my exam without murmurs, denies smoking alcohol or drug use. Seems most likely based on her exam to be CAP and will treat with abx and also give a duoneb and steroids and reassess. pt feels much better and wheezing improved, remains hd stable. Will d/c with inhaler and abx and steroid prescription. Advised to f/u with pcp and return precautions given Differential Diagnosis Differential Diagnosis: pna, influenza, bronchitis, uri HPI General Mode of arrival: ambulatory . Date/Time Provider Initiated Documentation: 07/19/19 00:04 . Limitations to Documentation: no limitations . Information obtained by: patient . History of Present Illness 54 year old F presents to the emergency department with the chief complaint of cough, descri bed as moderate, Patient started experiencing this week(s) (2) and it has been constant. No relieving factors improve symptom(s), No exacerbating factors reported . Patient did receive the following treatments prior to arrival, none Related Data Home Medications Medication Instructions Recorded Confirmed acetaminophen [Tylenol] 650 mg PO Q4H PRN PRN #0 tab 11/29/18 07/19/19 amlodipine 10 mg PO DAILY #30 tab 11/29/18 07/19/19 aspirin 81 mg PO DAILY #30 tab 11/29/18 07/19/19 atenolol 50 mg PO DAILY #30 tab 11/29/18 07/19/19 atorvastatin [Lipitor] 40 mg PO QPM #30 tab 11/29/18 07/19/19 ibuprofen [Ibuprofen IB] 400 mg PO QID PRN #0 tab 11/29/18 07/19/19 lisinopril 20 mg PO DAILY #30 tab 11/29/18 07/19/19 metformin 500 mg PO BID #0 tab 11/29/18 07/19/19 meclizine 25 mg PO TID PRN #10 tab 01/25/19 07/19/19 naproxen 250 mg PO BID PRN #20 tab 01/25/19 07/19/19 hydrochlorothiazide 25 mg tablet 12.5 mg PO DAILY tab 07/10/19 07/19/19 metoprolol succinate 50 mg 50 mg PO DAILY 07/10/19 07/19/19 tablet,extended release 24 hr amoxicillin-pot clavulanate 1 tab PO BID #14 tab 07/19/19 [Augmentin] azithromycin 250 mg PO DAILY 4 Days #4 tab 07/19/19 Previous Rx's Medication Instructions Recorded acetaminophen [Tylenol] 650 mg PO Q4H PRN PRN #0 tab 11/29/18 amlodipine 10 mg PO DAILY #30 tab 11/29/18 aspirin 81 mg PO DAILY #30 tab 11/29/18 atenolol 50 mg PO DAILY #30 tab 11/29/18 atorvastatin [Lipitor] 40 mg PO QPM #30 tab 11/29/18 ibuprofen [Ibuprofen IB] 400 mg PO QID PRN #0 tab 11/29/18 lisinopril 20 mg PO DAILY #30 tab 11/29/18 metformin 500 mg PO BID #0 tab 11/29/18 meclizine 25 mg PO TID PRN #10 tab 01/25/19 naproxen 250 mg PO BID PRN #20 tab 01/25/19 amoxicillin-pot clavulanate 1 tab PO BID #14 tab 07/19/19 [Augmentin] azithromycin 250 mg PO DAILY 4 Days #4 tab 07/19/19 Allergies Allergy/AdvReac Type Severity Reaction Status Date / Time Sulfa (Sulfonamide Allergy Hives Unverified 01/25/19 08:20 Antibiotics) General Stated Complaint: RespSymp NELSY: 3 Review of Systems All systems reviewed & are unremarkable except as noted in HPI and below Constitutional Constitutional: Denies fever(s) Cardiovascular Cardiovascular: Denies chest pain Gastrointestinal Gastrointestinal: Denies abdominal pain, Denies nausea and Denies vomiting Musculoskeletal Musculoskeletal: Denies joint swelling Integumentary/Breasts Skin/Breast: Denies rash Psychiatric Psychiatric: Denies depression [facility] Medical History (Updated 07/02/19 @ 09:20 by Yanni Russell) BPPV (benign paroxysmal positional vertigo) (Acute) Diabetes mellitus (Chronic) Diabetes mellitus type 2 in obese (Chronic) Essential hypertension (Chronic) Hypertension (Chronic) Surgical History History of tubal ligation (Resolved) Social History Smoking/Tobacco Use Status: Never Alcohol Intake: never Drug use: Never Substance use type: does not use Do you feel safe at home: Yes Do you feel safe in your relationship?: Yes History History 6 Para 5 Hx # Term Pregnancies Multiple births Hx # Pregnancies Ectopic pregnancies AB induced Hx Number of Living Children AB spontaneous Exam Const General: no acute distress Orientation: alert HENMT Head: normal to inspection Ears: external ears normal General nose exam: external nose normal Mouth: moist mucous membranes Eyes General: appearance normal, both eyes and all related structures Neck Neck: normal visual inspection Resp Effort & Inspection: normal respiratory effort and able to speak in complete sentences Cardio Rate: regular rate Skin General skin exam: no rashes or lesions noted Neuro General: alert and oriented x3 Extrem General: normal to inspection Psych Mental Status: mental status grossly normal Course Vital Signs Vital signs: Vital Signs Temperature 36.2 C L 07/19/19 00:05 Pulse 132 H 07/19/19 00:05 Respiratory Rate 96 H 07/19/19 00:05 Blood Pressure 183/122 H 07/19/19 00:05 Temperature 36.2 C L 07/19/19 00:05 Temperature Source Skin 07/19/19 00:05 Pulse 132 H 07/19/19 00:05 Respiratory Rate 96 H 07/19/19 00:05 Respiratory Effort 07/19/19 00:07 Respiratory Depth Normal 07/19/19 00:07 Blood Pressure 183/122 H 07/19/19 00:05
[2019-07-19 00:17] VITALS: RESP 5
[2019-07-19] MEDS: Albuterol/Ipratropium 3 ML UPD VIAL UPD (00:17)
[2019-07-19] MEDS: predniSONE 20 MG TAB 60 MG PO (00:17)
[2019-07-19] MEDS: Amoxicillin 875/Clav. 125 TAB PO (00:18)
[2019-07-19] MEDS: Azithromycin 250 MG TAB 500 MG PO (00:18)
--- NOTE | 2019-07-19 00:37 | NUR.NOTE ---
BP elevated. pt reports she has not taken her BP meds in several days as she is not feeling well. encouraged to take meds as prescribed.
[2019-07-19] MEDS: Inhaler, Assist Device 1 EACH MC (00:47)
[2019-07-19] MEDS: Albuterol HFA 8 GM 60 PUFF INH IH (00:47)
== END 2019-07-19 00:50 | disposition home or self-care (01) ==
PROVIDERS: Emergency Provider Emergency Medicine; PCP Nurse Practitioner Family
DX: J18.9 Pneumonia, unspecified organism (principal); I10 Essential (primary) hypertension; E11.9 Type 2 diabetes mellitus without complications
CPT/HCPCS: 94640; 99283; J7512; J7620

== ENCOUNTER 2019-07-29 09:40 | Outpatient (REF) | payer BC, SELFPAY ==
[2019-07-29 19:31] LABS: PROTEIN 43.7 mg/dL
[2019-07-29 19:34] LABS: COMMENT (LAB VIEW ONLY) 174.86 mg/dL; Microalb ug/mg Crea 31.1 ug/mg Cr
[2019-07-29 20:03] LABS: COMMENT (LAB VIEW ONLY) 175.45 mg/dL; Prot/Crea Ur Ratio 0.24
== END 2019-07-29 10:00 ==
LOC: NCHCN 09:40
PROVIDERS: PCP Nurse Practitioner Family; Visit Provider Nurse Practitioner Family
DX: Z00.00 Encounter for general adult medical examination without abnormal findings (principal); E11.9 Type 2 diabetes mellitus without complications; I10 Essential (primary) hypertension
CPT/HCPCS: 82043; 82565; 82570; 84156

== ENCOUNTER 2019-10-06 00:32 | Outpatient (CLI) | payer SELFPAY ==
--- NOTE | 2019-10-06 | DI.MAMMO_ITS ---
EXAM: MAMMO SCREENING CLINICAL HISTORY: SCREENING Z12.39 TECHNIQUE: Mammograms were interpreted according to the usual protocol including computer analysis w [employer] CAD system, tomosynthesis and C-view imaging. COMPARISON: Examination is compared with previous examination of February 2006. FINDINGS: The breasts are of moderate density with fairly symmetrical distribution of fibroglandular tissue. N o dominant mass or clumped microcalcification is identified in either breast. Examination is compare d with previous examination of February 2006. There is a question of interval development of an area o f asymmetric density projected centrally in left breast on CC as well as an area of asymmetric densit y projected centrally in the right breast on MLO view. No other significant change seen. IMPRESSION: Additional evaluation requested with bilateral spot compression views to evaluate questionable focal areas of asymmetric density of both breasts. Additional evaluation with breast ultrasound should prob ably be obtained as well. Category 0, breast density category B.
== END 2019-10-06 00:52 ==
PROVIDERS: PCP Nurse Practitioner Family; Visit Provider Nurse Practitioner Family
DX: Z12.31 Encounter for screening mammogram for malignant neoplasm of breast (principal); R92.8 Other abnormal and inconclusive findings on diagnostic imaging of breast
CPT/HCPCS: 77063; 77067

== ENCOUNTER 2019-10-17 03:35 | Outpatient (CLI) | payer BC, SELFPAY ==
--- NOTE | 2019-10-17 | DI.US_ITS ---
EXAM: MG MAMMO SCREEN CALL BACK BI AND US BREAST BI LIMITED CLINICAL HISTORY: F/U ABNORMAL MAMMO, ?INTERVAL DEVELOPMENT ASYMMETRIC DENSITY LT BREAST,?ASYMMETRI C DENSITY RT BREAST. TECHNIQUE: Craniocaudal and mediolateral oblique Full Field Digital Mammography views of the bilater al breast with Computer Aided Diagnosis followed by Tomosynthesis and bilateral breast ultrasound. COMPARISON: Priors for comparison FINDINGS: Mammography/Tomosynthesis: Masses/Architectural Distortion: None seen. Microcalcifications: No suspicious pleomorphic-type are seen. Skin Thickening/Nipple Retraction: None. Bilateral breast US: The upper outer quadrant of the right breast was evaluated. The central left br east was evaluated sonographically. Echotexture: Normal appearance of the glandular tissue. Shadowing: No suspicious foci. Cyst: 0.4 x 0.3 x 0.5 cm cyst at the 4 o'clock position of the left breast 3 cm from the nipple. No masses are seen in the right breast. Solid lesions: None seen. Ductal dilation: None. IMPRESSION: 1. No evidence of malignancy is noted. 2. Unless there is more urgent need, follow-up screening mammography is recommended, as per [employer] guidelines. BI-RADS Cat 1 - Negative Breast Density - Category B - Scattered areas of fibroglandular density The findings were discussed with the patient on the date of the examination. A negative radiographic report should not delay biopsy if a dominant or clinically suspicious mass is present. Up to ten percent of cancers are not identified on mammography. A negative report may reinforce clinical impression. Adenosis and dense breasts may obscure an underlying neoplasm. False positive reports average 6 to 10%. Patient will receive a letter notifying them of these results.
== END 2019-10-17 03:55 ==
PROVIDERS: PCP Nurse Practitioner Family; Visit Provider Nurse Practitioner Family
DX: Z12.31 Encounter for screening mammogram for malignant neoplasm of breast (principal); R92.8 Other abnormal and inconclusive findings on diagnostic imaging of breast; N60.02 Solitary cyst of left breast
CPT/HCPCS: 76642; 77063; 77067

== ENCOUNTER 2019-12-18 10:52 | Outpatient (REF) | payer OTHER, SELFPAY ==
[2019-12-18 15:21] LABS: HCT 45.3 % (36.0-46.0); HGB 16.1 g/dL (12.0-15.5); Mean Corp. HGB Concentration 35.5 g/dL (32.0-36.0); Mean Corpuscular Hemoglobin 31.1 pg (27.0-33.0); Mean Corpuscular Volume 87.5 fL (80-95); Mean Platelet Volume 12.4 fL (8.0-11.0); Platelet Count 309 x1000/uL (130-400); RBC 5.18 m/cumm (4.00-5.20); RBC Distribution Width 11.7 % (11.7-14.6); White Blood Cell Count 8.12 k/cumm (4.4-10.8)
[2019-12-18 16:53] LABS: ALT 51 U/L (14-59); AST 22 U/L (15-37); Albumin 4.3 g/dL (3.4-5.0); Alkaline Phosphatase 146 U/L (46-116); Anion Gap 6.8 mmol/L (3-11); BUN 19 mg/dL (7-18); Bilirubin, Total 0.4 mg/dL (0.2-1.0); CO2 30.2 mmol/L (21.0-32.0); CREATININE 0.95 mg/dL (0.55-1.02); Calcium 9.9 mg/dL (8.5-10.1); Calculated LDL 98 mg/dL (<100); Chloride 98 mmol/L (98-107); Cholesterol 183 mg/dL (<200); Glucose 237 mg/dL (74-106); HDL Cholesterol 66 mg/dL (40-60); Sodium 135 mmol/L (136-145); TSH (W/Ref FT4) 2.67 uIU/mL (0.36-3.74); Total Protein 7.3 g/dL (6.4-8.2); Triglyceride 95 mg/dL (<150)
[2019-12-18 17:12] LABS: Hemoglobin A1C 8.4 % (3.8-5.6)
== END 2019-12-18 11:12 ==
LOC: NCHCN 10:52
PROVIDERS: PCP Nurse Practitioner Family; Visit Provider Nurse Practitioner Family
DX: Z00.00 Encounter for general adult medical examination without abnormal findings (principal); I10 Essential (primary) hypertension; E11.9 Type 2 diabetes mellitus without complications
CPT/HCPCS: 80053; 80061; 85027; 83036; 84443

== ENCOUNTER 2020-01-29 14:56 | Outpatient (REF) | payer OTHER, SELFPAY ==
[2020-01-29 16:17] LABS: Anion Gap 11.3 mmol/L (3-11); BUN 15 mg/dL (7-18); CO2 24.7 mmol/L (21.0-32.0); CREATININE 0.95 mg/dL (0.55-1.02); Calcium 9.6 mg/dL (8.5-10.1); Chloride 101 mmol/L (98-107); Potassium 4.2 mmol/L (3.5-5.1); Sodium 137 mmol/L (136-145)
[2020-01-29 16:22] LABS: HCT 42.9 % (36.0-46.0); HGB 15.2 g/dL (12.0-15.5); Mean Corp. HGB Concentration 35.4 g/dL (32.0-36.0); Mean Corpuscular Hemoglobin 30.8 pg (27.0-33.0); Mean Corpuscular Volume 86.8 fL (80-95); Mean Platelet Volume 12.9 fL (8.0-11.0); Platelet Count 267 x1000/uL (130-400); RBC 4.94 m/cumm (4.00-5.20); RBC Distribution Width 12.1 % (11.7-14.6); White Blood Cell Count 7.76 k/cumm (4.4-10.8)
[2020-01-29 16:30] LABS: Glucose 504 mg/dL (74-106)
== END 2020-01-29 15:16 ==
LOC: NCHCN 14:56
PROVIDERS: PCP Nurse Practitioner Family; Visit Provider Nurse Practitioner Family
DX: I10 Essential (primary) hypertension (principal)
CPT/HCPCS: 80048; 85027

== ENCOUNTER 2020-02-02 15:55 | Outpatient (REF) | payer OTHER, SELFPAY ==
[2020-02-04 17:07] LABS: SARS-CoV-2 RNA Undetected (Undetected)
== END 2020-02-02 16:15 ==
LOC: NCHCN 15:55
PROVIDERS: PCP Nurse Practitioner Family; Visit Provider Nurse Practitioner Family
DX: R11.0 Nausea (principal); R19.7 Diarrhea, unspecified; Z11.59 Encounter for screening for other viral diseases
CPT/HCPCS: U0003

== ENCOUNTER 2020-04-13 01:20 | Outpatient (CLI) | payer OTHER, SELFPAY ==
--- NOTE | 2020-04-13 13:30 | NS.NUTBLAN_ITS ---
ASSESSMENT: Martha ( 55 y/o female) presents for nutrition counseling referral r/t DM2, Hx TIA, elevated A1c, BG. She is currently on 1000mg metformin BID and states that she takes 26u insulin at night. 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 Labs reveal A1c 8.4 ( 12/17) and BG 504 ( 01/28). She recently started seeing a horse trainer at [employer] gym 3x week. She stated that she had [employer] for lunch and she arrived at appointment drinking large soda from there. She reports that she does not like vegetables. INTERVENTION: Educated Martha on the [place] phone ethan to help with understanding CHO content of her lunch and beverage choice today. Explained the concept of simple and complex CHO's, CHO counting and risks and benefits of CCHO diet compliance. Recommended that she consume <60g/CHO/meal period. Suggested she consider non- sugary beverages for hydration. Recommended she inform hand inspector, matte cutter and dentist of her DM status. Provided CHO counting, label reading and CHO/Pro pairing literature to reiterate concepts noted above. Reviewed desirable BG ranges for FBG and postprandial scenarios. PLAN: Martha is on site at [employer] and is able to use RD as a resource for advice on menu/meal planning when needed. She has nutrition dept contact info. She is able to schedule F/U appointment in one month to track progress on weight loss BG levels which she stated she intends to do.
== END 2020-04-13 01:40 ==
PROVIDERS: PCP Nurse Practitioner Family; Visit Provider Dietitian, Registered
DX: E11.9 Type 2 diabetes mellitus without complications (principal); Z79.4 Long term (current) use of insulin; Z71.3 Dietary counseling and surveillance
CPT/HCPCS: 97802

== ENCOUNTER 2020-07-13 22:51 | Outpatient (REF) | payer OTHER, SELFPAY ==
[2020-07-13 12:11] LABS: HCT 41.8 % (36.0-46.0); HGB 14.8 g/dL (11.2-15.7); MCH 31.5 pg (27.0-33.0); MCHC 35.4 % (32.0-36.0); MCV 88.9 fL (80-95); MPV 12.7 fL (8.0-11.0); Platelet Count 286 10^3/uL (130-400); RDW 12.1 % (11.7-14.6); RDW-SD 39.7 fL; WBC 9.81 10^3/uL (4.4-10.8)
[2020-07-13 12:16] LABS: ALT 36 U/L (14-59); AST 23 U/L (15-37); Albumin 3.9 g/dL (3.4-5.0); Alkaline Phosphatase 110 U/L (46-116); Anion Gap 7.8 mmol/L (3-11); BUN 20 mg/dL (7-18); Bilirubin, Total 0.4 mg/dL (0.2-1.0); CO2 27.2 mmol/L (21.0-32.0); CREATININE 0.86 mg/dL (0.55-1.02); Chloride 108 mmol/L (98-107); Glucose 154 mg/dL (74-106); Potassium 4.3 mmol/L (3.5-5.1); Sodium 143 mmol/L (136-145); Total Protein 6.8 g/dL (6.4-8.2)
== END 2020-07-13 23:11 ==
LOC: NCHCN 22:51
PROVIDERS: PCP Nurse Practitioner Family; Visit Provider Family Medicine
DX: R10.9 Unspecified abdominal pain (principal)
CPT/HCPCS: 80053; 85027; 83655

== ENCOUNTER 2020-11-02 12:01 | Outpatient (REF) | payer OTHER, SELFPAY ==
[2020-11-02 17:46] LABS: ALT 27 U/L (14-59); AST 15 U/L (15-37); Alkaline Phosphatase 125 U/L (46-116); Anion Gap 7.3 mmol/L (3-11); BUN 17 mg/dL (7-18); Bilirubin, Total 0.4 mg/dL (0.2-1.0); CO2 26.7 mmol/L (21.0-32.0); CREATININE 0.7 mg/dL (0.55-1.02); Calculated LDL 143 mg/dL (<100); Chloride 104 mmol/L (98-107); Cholesterol 231 mg/dL (<200); Glucose 146 mg/dL (74-106); HDL Cholesterol 70 mg/dL (40-60); Potassium 4.2 mmol/L (3.5-5.1); Sodium 138 mmol/L (136-145); Triglyceride 91 mg/dL (<150)
[2020-11-02 17:48] LABS: Hemoglobin A1C 7.4 % (<5.7)
== END 2020-11-02 12:02 | disposition home or self-care (01) ==
LOC: NCHCN 12:01
PROVIDERS: PCP Nurse Practitioner Family; Visit Provider Physician Assistant
DX: I10 Essential (primary) hypertension (principal); E11.9 Type 2 diabetes mellitus without complications
CPT/HCPCS: 80053; 80061; 83036

== ENCOUNTER 2020-12-19 20:59 | Emergency (ER) | payer OTHER, SELFPAY ==
--- NOTE | 2020-12-19 21:00 | RT.EKG_ITS ---
APPROVED REPORT Exam: Resting ECG Reason for Exam: arm pain Patient Location: E HR:114 bpm ECG Measurements Heart Rate 114 AXIS KS 137 P 49 QRSd 78 QRS 21 QT 322 T -6 QTc 443 Conclusion Sinus tachycardia...rate> 99 Ventricular premature complex...V complex w/ short R-R interval Aberrant complex...small R-R variation, aberrant QRS Probable left atrial enlargement...P >50mS, <-0.10mV V1 Normal [place] No STEMI I have reviewed and interpreted ECG and agree with software generated interpretation.
--- NOTE | 2020-12-19 21:03 | W.ED.GENAD ---
Discharge Plan Disposition Patient Disposition: HOME Condition: Good Discharge Details Clinical Impression: CAP (community acquired pneumonia) Primary Care Provider: Carl Garvey ED Provider: Heriberto Romero [place] Meds and New Rx's Prescriptions: New amoxicillin-pot clavulanate 875-125 mg tablet 1 tab PO BID Qty: 9 RF: 0 azithromycin 250 mg tablet 250 mg PO DAILY Qty: 4 RF: 0 Continued atorvastatin [Lipitor] 40 mg tablet 40 mg PO QPM RF: 0 metoprolol succinate 50 mg tablet extended release 24 hr 50 mg PO DAILY RF: 0 hydrochlorothiazide 25 mg tablet 25 mg PO DAILY RF: 0 valacyclovir [Valtrex] 500 mg tablet 500 mg PO BID RF: 0 polyethylene glycol 3350 [Miralax] 17 gram/dose powder 17 gm PO DAILY RF: 0 albuterol sulfate [ProAir HFA] 90 mcg/actuation HFA aerosol inhaler 2 puff IH Q6H PRNRF: 0 Basaglar KwikPen U-100 Insulin 100 unit/mL (3 mL) insulin pen 26 unit subcut HS RF: 0 fluticasone propionate [Children's Flonase Allergy Rlf] 50 mcg/actuation spray,suspension 1 spray intranasal DAILY RF: 0 metformin 500 mg tablet 1,000 mg PO BID Qty: 0 RF: 0 omeprazole 40 mg capsule,delayed release(DR/EC) 40 mg PO DAILY RF: 0 melatonin 10 mg capsule 10 mg PO HS PRNRF: 0 meclizine 25 mg tablet 25 mg PO TID PRN (Reason: dizziness) Qty: 10 RF: 0 aspirin 81 mg Tablet,Delayed Release (Dr/Ec) 81 mg PO DAILY Qty: 30 RF: 0 acetaminophen [Tylenol] 325 mg Tablet 650 mg PO Q4H PRN PRNQty: 0 RF: 0 lisinopril 20 MG tablet 20 mg PO DAILY Qty: 30 RF: 0 amlodipine 10 mg Tablet 10 mg PO DAILY Qty: 30 RF: 0 ibuprofen [Ibuprofen IB] 200 mg Tablet 400 mg PO QID PRNQty: 0 RF: 0 atenolol 50 MG tablet 50 mg PO DAILY Qty: 30 RF: 0 zolpidem [Ambien] 5 mg tablet 5 mg PO HS PRNRF: 0 Discharge Instructions Instructions: Community Acquired Pneumonia (ED) Additional Instructions: You have a left-sided pneumonia and will be treated with 2 separate antibiotics to take as directed. Please cloth picker at the hospital pharmacy tomorrow morning. Rest and drink plenty of fluids. Out of work until Covid testing has returned negative. Follow-up with primary care in the next 3 to 5 days for recheck. Return to ED for mental status changes, increasing shortness of breath, worsening chest pain, vomiting, other problems. Stand Alone Forms: Work Release Referrals: [facility] [Provider Group] Medical Decision Making 55-year-old female with history of hypertension, diabetes presenting with acute onset of left shoulder and upper chest pain that is worse with movement of the left shoulder, somewhat pleuritic. She is very uncomfortable. She is tachycardic. Saturations are good. Lungs are clear. Arm is neurovascularly intact and her good pulses throughout. Appears to be orthopedic in nature but there is no specific injury. There is no erythema or warmth but there is tenderness along the clavicle, AC joint. No IV drug abuse. EKG is sinus tach with no acute ST changes and no STEMI. IV established fluids and ketorolac ordered. Laboratory studies sent. Chest x-ray of the chest and left shoulder ordered. 00:15 - Patient seems better after the IV Toradol. Laboratory studies are ok. White count normal. Sed rate normal. C-reactive protein mildly elevated. Troponin negative. Glucose a little but rest of electrolytes and kidney function normal. D-dimer positive. Chest x-ray with questionable infiltrate but with positive D-dimer, tachycardia, pleuritic type chest pain CT scan was obtained. This is negative for PE but confirms left pneumonia. Second troponin canceled. Pain likely due to coughing and pulling something in her upper chest. 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 By PSI criteria she is a 2 and can be managed outpatient. Current recommendations by Up-to-Date for outpatient community-acquired pneumonia treatment is Augmentin and a Zithromax which are both started here in the ED. Patient to be off work for the next couple of days while waiting for Covid test returned. Follow-up with primary care in 3 to 5 days for recheck. Return to ED if mental status changes, vomiting, increasing shortness of breath, new or worsening chest pain. Differential Diagnosis Differential Diagnosis: ACS, PE, PTX, septic joint, musculoskeletal pain Lab Data Lab results reviewed: Yes I reviewed the patient's lab results. ECG Data Attestation: I personally reviewed and interpreted this ECG (s) as follows: Prior ECG tracings: not available for review Interpretation: See EKG HPI General Mode of arrival: ambulatory. Date/Time Provider Initiated Documentation: 12/19/20 21:03. Limitations to Documentation: no limitations. Information obtained by: patient and RN notes reviewed. HPI Narrative: Patient presents to ED with left shoulder and upper chest pain onset about half an hour ago. No specific injury. She is right-hand dominant. She has been taking care of her 6-month-old grandchild today. There were no falls, heavy lifting, overhead stretching. Pain started and is worse with movement of the left shoulder. There is some increased pain with breathing. She does not feel short of breath but the pain is taking her breath away. No radiation of pain. She has had a cough for the last couple of days. No fever. No back pain. No abdominal pain, vomiting. No numbness or weakness in the distal left upper extremity. No pain or swelling in her legs. No history of blood clots. No IV drug abuse. Related Data Home Medications Medication Instructions Recorded Confirmed acetaminophen [Tylenol] 650 mg PO Q4H PRN PRN #0 tab 11/29/18 12/19/20 amlodipine 10 mg PO DAILY #30 tab 11/29/18 12/19/20 aspirin 81 mg PO DAILY #30 tab 11/29/18 07/29/19 atenolol 50 mg PO DAILY #30 tab 11/29/18 12/19/20 ibuprofen [Ibuprofen IB] 400 mg PO QID PRN #0 tab 11/29/18 12/19/20 lisinopril 20 mg PO DAILY #30 tab 11/29/18 12/19/20 meclizine 25 mg PO TID PRN #10 tab 01/25/19 12/19/20 metoprolol succinate 50 mg 50 mg PO DAILY 07/10/19 12/19/20 tablet,extended release 24 hr atorvastatin 40 mg tablet 40 mg PO QPM tab 07/29/19 12/19/20 hydrochlorothiazide 25 mg tablet 25 mg PO DAILY tab 07/29/19 12/19/20 albuterol sulfate 90 mcg/actuation 2 puff IH Q6H PRN 01/09/20 12/19/20 aerosol inhaler polyethylene glycol 3350 17 17 gm PO DAILY 01/09/20 12/19/20 gram/dose oral powder valacyclovir 500 mg tablet 500 mg PO BID 01/09/20 12/19/20 fluticasone propionate 50 1 spray INTRANASAL DAILY 04/30/20 12/19/20 mcg/actuation nasal spray,suspension insulin glargine 100 unit/mL (3 26 unit SUBCUT HS ml 04/30/20 12/19/20 mL) subcutaneous pen melatonin 10 mg capsule 10 mg PO HS PRN 12/10/20 12/19/20 metformin 500 mg tablet 1,000 mg PO BID #0 tab 12/10/20 12/19/20 omeprazole 40 mg capsule,delayed 40 mg PO DAILY 12/10/20 12/19/20 release zolpidem [Ambien] 5 mg PO HS PRN 12/19/20 12/19/20 amoxicillin-pot clavulanate 1 tab PO BID #9 tab 12/20/20 azithromycin 250 mg PO DAILY #4 tab 12/20/20 Previous Rx's Medication Instructions Recorded acetaminophen [Tylenol] 650 mg PO Q4H PRN PRN #0 tab 11/29/18 amlodipine 10 mg PO DAILY #30 tab 11/29/18 aspirin 81 mg PO DAILY #30 tab 11/29/18 atenolol 50 mg PO DAILY #30 tab 11/29/18 ibuprofen [Ibuprofen IB] 400 mg PO QID PRN #0 tab 11/29/18 lisinopril 20 mg PO DAILY #30 tab 11/29/18 meclizine 25 mg PO TID PRN #10 tab 01/25/19 metformin 500 mg tablet 1,000 mg PO BID #0 tab 12/10/20 amoxicillin-pot clavulanate 1 tab PO BID #9 tab 12/20/20 azithromycin 250 mg PO DAILY #4 tab 12/20/20 Allergies Allergy/AdvReac Type Severity Reaction Status Date / Time Sulfa (Sulfonamide Allergy Hives Unverified 08/16/20 15:10 Antibiotics) General NELSY: 3 Review of Systems Narrative: 05/05 Review of Systems completed and is negative except as stated above in HPI (Systems reviewed: Const, Eyes, ENT, Resp, CV, GI, , MSK, Skin, Neuro) PFSH Medical History Bilateral carpal tunnel syndrome BPPV (benign paroxysmal positional vertigo) Chronic headaches Complicated grief Constipation Diabetes mellitus Early satiety Erythema multiforme Essential hypertension GERD (gastroesophageal reflux disease) Herpes simplex History of depression Hypertension Insomnia Obesity GEOFF (obstructive sleep apnea) Pulmonary hypertension Sleeping difficulties Surgical History History of tubal ligation Family History (Updated 11/29/18 @ 05:51 by Dayo Gerardo) Mother Heart disease Ovarian cancer Social History Smoking/Tobacco Use Status: Never Smoking risk assessment performed?: Yes Alcohol Intake: current Alcohol Intake frequency: holidays/special occasions only Drug use: Never Substance use type: does not use Household members: spouse Housing: house Number of Children: 5 What is your relationship status?: Panel score (0-1 are the most socially isolated patients): 1 Seatbelt use: always Do you feel safe at home: Yes Do you feel safe in your relationship?: Yes History History 6 Para 5 Hx # Term Pregnancies Multiple births Hx # Pregnancies Ectopic pregnancies AB induced Hx Number of Living Children AB spontaneous Exam Narrative Exam Narrative: Const: WDWN female appears uncomfortable. HEENT: NC/AT. Normal facial exam. Eyes: Normal conjunctiva and sclera. Neck: Supple. Trachea midline. Lungs: Normal respiratory effort. Lungs are clear. Tender to palpation left clavicle, left AC, left upper chest. Cor: RRR without murmur/gallop. Good distal pulses. GI: Soft. NT/ND. No guarding or rebound. Back: No spine or back tenderness. Neuro: A+O x 3. Normal speech, mentation, gait. Cranial nerves II - XII grossly intact. No gross motor or sensory deficit. Ext: No C/C/E. No calf tenderness. Marked decreased range of motion left shoulder due to pain. Neurovascularly intact distally with good pulse, sensation, strength. Skin: Warm and dry without rash.
[2020-12-19 21:07] VITALS: BP 185/96; PULSE 117; RESP 18; TEMP 36.8; O2SAT 98
--- NOTE | 2020-12-19 21:15 | DI.RAD_ITS ---
Exam(s) XR CHEST 2V PA LATERAL EXAM: XR CHEST 2V PA LATERAL CLINICAL HISTORY: CP TECHNIQUE: 2D digital imaging was performed. COMPARISON: No exams were available for comparison FINDINGS: MEDIASTINUM: Normal. HEART: Normal. PULMONARY VASCULATURE: Normal. LUNGS: There is an opacity in the left lower lobe. PLEURAL SPACE: No pleural effusion or pneumothorax. BONE:Within normal limits for the patient's age. OTHER FINDINGS:Normal. IMPRESSION: Left lower lobe opacity. This may represent a pneumonia in the appropriate clinical setting. If the re is no history or symptoms to suggest pneumonia, CT scan should be considered to exclude a mass. DATA REPOSITORY: RADIATION DOSE DELIVERED:
--- NOTE | 2020-12-19 21:30 | DI.RAD_ITS ---
Exam(s) XR SHOULDER LT COMPLETE 2+V EXAM: XR SHOULDER LT COMPLETE 2+V CLINICAL HISTORY: shoulder pain. TECHNIQUE: 2D digital imaging was performed. COMPARISON: No exams were available for comparison FINDINGS: BONES: No acute fracture is present. No bony destructive lesion is seen. JOINTS: No dislocation present. SOFT TISSUE: Normal. Lungs: Left lower lobe opacity. Please see the report for the chest x-ray. IMPRESSION: 1. No acute abnormality. 2. Left lower lobe opacity. DATA REPOSITORY: RADIATION DOSE DELIVERED:
[2020-12-19] MEDS: Ketorolac 30 MG/ML VIAL IVP (21:40)
[2020-12-19] MEDS: Lactated Ringers 1,000 ML 200 ML IV (21:40)
[2020-12-19 21:42] LABS: Abs Immature Grans 0.01 10^3/uL (0.0-0.06); Absolute Basophil Count 0.05 10^3/uL (0.0-0.2); Absolute Eosinophil Count 0.27 10^3/uL (0.0-0.7); Absolute Lymphocyte Count 2.18 10^3/uL (1.2-3.4); Absolute Monocyte Count 0.73 10^3/uL (0.1-0.8); Absolute Neutrophil Count 3.23 10^3/uL (1.2-6.7); Basophils % 0.8; Eosinophils % 4.2; HCT 45.8 % (36.0-46.0); HGB 16.1 g/dL (11.2-15.7); Immature Grans % 0.2; Lymphocytes % 33.7; MCH 30.3 pg (27.0-33.0); MCHC 35.2 % (32.0-36.0); MCV 86.3 fL (80-95); MPV 10.9 fL (8.0-11.0); Monocytes % 11.3; Neutrophils % 49.8; Nucleated RBC 0 %; Platelet Count 315 10^3/uL (130-400); RBC 5.31 10^6/uL (3.93-5.22); RDW 11.5 % (11.7-14.6); RDW-SD 36.3 fL; WBC 6.47 10^3/uL (4.4-10.8)
[2020-12-19 21:44] LABS: ESR 8 mm/hr (0-30)
[2020-12-19 22:00] LABS: ALT 34 U/L (14-59); AST 20 U/L (15-37); Alkaline Phosphatase 164 U/L (46-116); Anion Gap 12.9 mmol/L (3-11); BUN 11 mg/dL (7-18); Bilirubin, Total 0.4 mg/dL (0.2-1.0); C-Reactive Protein 1.47 mg/dL (0.0-0.3); CO2 26.1 mmol/L (21.0-32.0); CREATININE 0.9 mg/dL (0.55-1.02); Calcium 9.4 mg/dL (8.5-10.1); Chloride 102 mmol/L (98-107); Glucose 225 mg/dL (74-106); Magnesium 1.6 mg/dL (1.8-2.4); Potassium 3.7 mmol/L (3.5-5.1); Sodium 141 mmol/L (136-145); Total Protein 7.6 g/dL (6.4-8.2); Troponin I < 0.05 ng/mL (<0.06)
--- NOTE | 2020-12-19 22:00 | DI.CT_ITS ---
Exam(s) CT CHEST PE CTA EXAM: CT CHEST PE CTA CLINICAL HISTORY: left chest/shoulder pain, pleuritic, + ddimer. TECHNIQUE: Imaging Protocol: Axial CT angiography was performed with multi-slice acquisition and mu lti-planar and/or 3D reconstructions. CONTRAST MATERIAL: Intravenous: Omnipaque 350 Contrast volume:100 mL COMPARISON: CT CT THORAX CTA from 11/29/2018 FINDINGS: Tracheobronchial tree: Patent where visualized. Pulmonary parenchyma: There is a patchy infiltrate in the left lower lobe corresponding to the CT abn ormality. No evidence of a pulmonary mass is seen. No architectural distortion. There are calcified granuloma present. Pulmonary Arteries: No evidence of filling defect to suggest pulmonary emboli. Mediastinum and Nancy: No dominant adenopathy or fluid collection. Small hiatal hernia. Visualized thyroid gland: Unremarkable. Pleura: No effusion or pneumothorax. Heart: The heart is not dilated. No coronary artery calcifications are seen. No pericardial effusion. Aorta: Thoracic aorta non-dilated. Upper abdomen: Unremarkable. Soft tissues: Unremarkable. Bones: Normal. IMPRESSION: 1. No evidence of pulmonary embolism, thoracic aortic dissection or aneurysm. 2. Area of consolidation in the left lower lobe consistent with pneumonia in the appropriate clinical setting. A follow-up chest x-ray in 4-6 weeks is suggested to document resolution. RADIATION DOSE DELIVERED: 608.16mGy.cm Total DLP DATA REPOSITORY: All CT scans at this facility are submitted to the National Radiology Data Registry (NRDR) Dose Index Registry (DIR) with the [employer] (ACR). RADIATION OPTIMIZATION: All CT scans at this facility use at least one of these dose optimization te chniques: automated exposure control; mA and/or kV adjustment per patient size (includes targeted exa ms where dose is matched to clinical indication); or iterative reconstruction.
[2020-12-19 22:11] LABS: D-Dimer 731 ng/mlFEU (<500)
[2020-12-19] MEDS: Omnipaque 350 MG/ML 100 ML BTL IJ (22:25)
--- NOTE | 2020-12-19 22:35 | DI.VRAD_ITS ---
PROCEDURE INFORMATION: Exam: XR Chest Exam date and time: 12/19/2020 9:32 PM Age: 55 years old Clinical indication: Other: Chest pain TECHNIQUE: Imaging protocol: XR of the chest. Views: 2 views. COMPARISON: CT THORAX CTA 11/29/2018 3:00 AM FINDINGS: Lungs: There is patchy left lower lobe opacity. Left upper lobe and right lung are otherwise clear without focal consolidation. Pleural spaces: No pleural effusion. No pneumothorax. Heart/Mediastinum: Cardiomediastinal contours within normal limits. Bones/joints: No acute osseous finding. IMPRESSION: Patchy left lower lobe opacity concerning for pneumonia in the appropriate clinical setting. If the patient does not have history/symptoms suggestive for pneumonia, CT is recommended to exclude mass. Dictated and Authenticated by: Romel Masters MD. Ordering:MALIKA Louis MD
--- NOTE | 2020-12-19 22:36 | DI.VRAD_ITS ---
PROCEDURE INFORMATION: Exam: XR Left Shoulder Exam date and time: 12/19/2020 9:32 PM Age: 55 years old Clinical indication: Shoulder; Left; Patient HX: Pain, no known trauma, lrom TECHNIQUE: Imaging protocol: XR Left shoulder. Views: 2 or more views. COMPARISON: No relevant prior studies available. FINDINGS: Bones/joints: No suspicious osseous lytic or blastic lesion. No acute fracture or dislocation. Acromioclavicular and coracoclavicular intervals within normal limits. Lungs: There is patchy left lower lobe opacity. Soft tissues: No focal abnormality. IMPRESSION: 1. No acute fracture or dislocation. 2. Patchy left lower lobe opacity. Dictated and Authenticated by: Romel Masters MD. Ordering:MALIKA Louis MD
[2020-12-19] MEDS: Normal Saline - Diluent 50 ML VIAL IV (23:00)
[2020-12-19] MEDS: Normal Saline Flush 10 ML SYR IVP (23:09)
[2020-12-19 23:16] VITALS: BP 178/79; PULSE 101; RESP 23; TEMP 36.6; O2SAT 97
--- NOTE | 2020-12-19 23:29 | DI.VRAD_ITS ---
PROCEDURE INFORMATION: Exam: CTA Chest With Contrast Exam date and time: 12/19/2020 10:15 PM Age: 55 years old Clinical indication: Left-sided; Patient HX: Left chest/shoulder pain, pleuritic, + ddimer TECHNIQUE: Imaging protocol: Computed tomographic angiography of the chest with contrast. 3D rendering (Not supervised by radiologist): MIP and/or 3D reconstructed images were created by the technologist. Radiation optimization: All CT scans at this facility use at least one of these dose optimization techniques: automated exposure control; mA and/or kV adjustment per patient size (includes targeted exams where dose is matched to clinical indication); or iterative reconstruction. Contrast material: OMNIPAQUE 350; Contrast volume: 100 ml; Contrast route: INTRAVENOUS (IV); COMPARISON: CT THORAX CTA 11/29/2018 3:00 AM FINDINGS: Pulmonary arteries: Pulmonary artery opacification is adequate. No pulmonary embolism. Aorta: No aortic aneurysm. No aortic dissection. Thyroid: No mass. Lungs: There is focal irregular airspace consolidation within the posterolateral left lower lobe with mild surrounding ground-glass opacity. No other area of focal pulmonary consolidation. There are small bilateral benign calcified granulomas. Pleural spaces: Unremarkable. No pneumothorax. No pleural effusion. Heart: No cardiomegaly. No pericardial effusion. Mediastinal space: There is small hiatal hernia. Lymph nodes: There are few calcified mediastinal and hilar lymph nodes, likely sequela of old granulomatous disease. No pathologically enlarged lymph nodes with few scattered prominent lymph nodes, for example 0.9 cm right paratracheal lymph node (series 4, image 11). Bones/joints: Unremarkable. No acute fracture. Soft tissues: No focal abnormality. IMPRESSION: 1. No pulmonary embolism. 2. Focal irregular airspace consolidation within the left lower lobe compatible with pneumonia in the appropriate clinical setting, correlate for appropriate history/symptoms. Follow-up chest radiograph recommended in 4-6 weeks following adequate course of therapy to document resolution. Dictated and Authenticated by: Romel Masters MD. Ordering:MALIKA Louis MD
[2020-12-20] MEDS: Amoxicillin 875/Clav. 125 TAB PO (00:13)
[2020-12-20] MEDS: Azithromycin 250 MG TAB 500 MG PO (00:13)
[2020-12-22 15:00] LABS: COVID-19 RT-PCR UVMMC Result Negative (Negative)
--- NOTE | 2020-12-23 10:46 | NUR.NOTE ---
Nursing Note: Attempted to call pt with result of Covid test--unable to leave message--Mail box full--will attempt call later.
== END 2020-12-20 00:35 | disposition home or self-care (01) ==
PROVIDERS: Emergency Provider Emergency Medicine; PCP Nurse Practitioner Family
DX: J18.8 Other pneumonia, unspecified organism (principal); R79.1 Abnormal coagulation profile; Z03.818 Encounter for observation for suspected exposure to other biological agents ruled out
CPT/HCPCS: 36415; 36416; 71275; 80053; 82962; 85652; 93005; 96361; 96374; 99285; U0003; 71046; 73030; 83735; 84484; 85025; 85379; 86140; 93010; J1885; J3490

== ENCOUNTER 2020-12-24 14:51 | Outpatient (CLI) | payer OTHER, SELFPAY ==
--- NOTE | 2020-12-24 | DI.RAD_ITS ---
Exam(s) XR CHEST 2V PA LATERAL EXAM: XR CHEST 2V PA LATERAL CLINICAL HISTORY: COMMUNITY ACQUIRED PNEUMONIA J18.9 TECHNIQUE: 2D digital imaging was performed. COMPARISON: CR,XR XR CHEST 2V PA LATERAL from 12/19/2020 FINDINGS: MEDIASTINUM: Normal. HEART: Normal. PULMONARY VASCULATURE: Normal. LUNGS: Clear. PLEURAL SPACE: No pleural effusion or pneumothorax. BONE:Within normal limits for the patient's age. OTHER FINDINGS:Normal. IMPRESSION: No acute pulmonary findings. DATA REPOSITORY: RADIATION DOSE DELIVERED:
== END 2020-12-24 15:11 ==
PROVIDERS: PCP Nurse Practitioner Family; Visit Provider Physician Assistant Medical
DX: J18.9 Pneumonia, unspecified organism (principal)
CPT/HCPCS: 71046

== ENCOUNTER 2021-01-19 01:51 | Outpatient (CLI) | payer OTHER, SELFPAY ==
--- NOTE | 2021-01-19 12:15 | DI.MAMMO_ITS ---
Exam(s) MAMMO SCREENING EXAM: MAMMO SCREENING CLINICAL HISTORY: SCREENING,Z12.39. TECHNIQUE: Bilateral full field digital CC and MLO mammographic images were obtained with 3D tomosyn thesis and utilizing computer aided detection (CAD). COMPARISON: Prior mammograms dating back to September 2019, the most recent being December 2019.. Ultrasound examination is reviewed. FINDINGS: There has been no significant change in the appearance and distribution of the fibroglandular tissue. No new significant radiograph findings in left breast. In the right breast there is nodular density located medially in the, slightly below midline measurin g approximately 9 x 7 millimeters and approximately 6 cm in from the nipple. Appears perhaps slightl y larger than last year. There are no malignant-appearing microcalcification groups is region or els ewhere in either breast. Is no new architectural distortion or skin. IMPRESSION: No radiographic evidence of malignancy in left breast Subtle right breast nodule. Spot compression view and follow-up ultrasound BI-RADS Category 0 - Assessment Incomplete: Need additional imaging evaluation Breast Density - Category B - Scattered areas of fibroglandular density Breast density Category C or D implies that the patient has dense breast tissue. Dense breast tissue can make it harder to find cancer on a mammogram. Dense breast tissue is also associated with an incr eased risk of breast cancer. This information about the result of the mammogram report was provided to the patient to raise their awareness. Use this report when you speak with the patient about their risks for breast cancer, which includes their family history. At that time, you may recommend additional screening tests (Ultrasoun d or MRI) as these tests may add significant information. A negative radiographic report should not delay biopsy if a dominant or clinically suspicious mass is present. Up to ten percent of cancers are not identified on mammography. A negative report may reinforce clinical impression. Adenosis and dense breasts may obscure an underlying neoplasm. False positive reports average 6 to 10%. Patient will receive a letter notifying them of these results.
== END 2021-01-19 02:11 ==
PROVIDERS: PCP Nurse Practitioner Family; Visit Provider Physician Assistant
DX: Z12.31 Encounter for screening mammogram for malignant neoplasm of breast (principal); N63.10 Unspecified lump in the right breast, unspecified quadrant; R92.8 Other abnormal and inconclusive findings on diagnostic imaging of breast
CPT/HCPCS: 77063; 77067

== ENCOUNTER 2021-02-08 01:55 | Outpatient (CLI) | payer OTHER, SELFPAY ==
--- NOTE | 2021-02-08 | DI.MAMMO_ITS ---
Exam(s) MG MAMMO SCREEN CALL BACK UNI US BREAST RT LIMITED EXAM: MG MAMMO SCREEN CALL BACK UNI CLINICAL HISTORY: F/U MAMMO, RT BREAST NODULAR DENSITY. TECHNIQUE: Craniocaudal spot compression mammography views of the right breast followed by Tomosyn thesis and right breast ultrasound. COMPARISON: MG MG MAMMO SCREENING from 10/06/2019 MG MG MAMMO SCREEN CALL BACK BI from 10/17/2019 MG MG MAMMO SCREENING from 01/19/2021 FINDINGS: Mammography/Tomosynthesis: Masses/Architectural Distortion: None seen. Microcalcifictions: No suspicious pleomorphic-type are seen. Skin Thickening/Nipple Retraction: None. Right breast US: Echotexture: Normal appearance of the glandular tissue. Shadowing: No suspicious foci. Cyst: None. Solid lesions: None seen. Ductal dilation: None. IMPRESSION: 1. No evidence of malignancy is noted. 2. Unless there is more urgent need, follow-up screening mammography is recommended, as per [place] [employer] guidelines. BI-RADS Category 1 - Negative Breast Density - Category B - Scattered areas of fibroglandular density A negative radiographic report should not delay biopsy if a dominant or clinically suspicious mass is present. Up to ten percent of cancers are not identified on mammography. A negative report may reinforce clinical impression. Adenosis and dense breasts may obscure an underlying neoplasm. False positive reports average 6 to 10%. Patient will receive a letter notifying them of these results.
== END 2021-02-08 02:15 ==
PROVIDERS: PCP Nurse Practitioner Family; Visit Provider Physician Assistant
DX: Z12.31 Encounter for screening mammogram for malignant neoplasm of breast (principal); R92.8 Other abnormal and inconclusive findings on diagnostic imaging of breast
CPT/HCPCS: 76642; 77063; 77067

== ENCOUNTER 2021-04-11 15:44 | Outpatient (REF) | payer OTHER, SELFPAY ==
[2021-04-11 21:09] LABS: Hemoglobin A1C 7.8 % (<5.7)
[2021-04-11 21:20] LABS: ALT 44 U/L (14-59); AST 27 U/L (15-37); Albumin 4.1 g/dL (3.4-5.0); Alkaline Phosphatase 136 U/L (46-116); Anion Gap 9.4 mmol/L (3-11); BUN 17 mg/dL (7-18); Bilirubin, Total 0.3 mg/dL (0.2-1.0); CO2 26.6 mmol/L (21.0-32.0); CREATININE 0.7 mg/dL (0.55-1.02); Calcium 9.2 mg/dL (8.5-10.1); Chloride 108 mmol/L (98-107); Glucose 130 mg/dL (74-106); Sodium 144 mmol/L (136-145); Total Protein 7.1 g/dL (6.4-8.2)
== END 2021-04-11 15:45 | disposition home or self-care (01) ==
LOC: LBN 15:44
PROVIDERS: PCP Nurse Practitioner Family; Visit Provider Nurse Practitioner Family
DX: I10 Essential (primary) hypertension (principal); E11.9 Type 2 diabetes mellitus without complications
CPT/HCPCS: 80053; 83036

== ENCOUNTER 2021-08-13 17:44 | Emergency (ER) | payer OTHER, SELFPAY ==
[2021-08-13 17:48] VITALS: BP 226/121; PULSE 87; RESP 16; TEMP 36.5; O2SAT 98
--- NOTE | 2021-08-13 18:22 | ED.GENADUL_ITS ---
Discharge Plan Disposition Patient Disposition: HOME Condition: Stable Discharge Details Clinical Impression: Infected dental caries Primary Care Provider: Carl Garvey ED Provider: Rose Mary Skinner Home Meds and New Rx's Prescriptions: New penicillin V potassium 500 mg tablet 500 mg PO QID 7 Days Qty: 28 RF: 0 Continued atorvastatin [Lipitor] 40 mg tablet 40 mg PO QPM RF: 0 lidocaine 5 % adhesive patch,medicated 1 patch topical Q24H Qty: 10 RF: 0 metoprolol succinate 50 mg tablet extended release 24 hr 50 mg PO DAILY RF: 0 hydrochlorothiazide 25 mg tablet 25 mg PO DAILY RF: 0 polyethylene glycol 3350 [Miralax] 17 gram/dose powder 17 gm PO DAILY RF: 0 albuterol sulfate [ProAir HFA] 90 mcg/actuation HFA aerosol inhaler 2 puff IH Q6H PRNRF: 0 Basaglar KwikPen U-100 Insulin 100 unit/mL (3 mL) insulin pen 26 unit subcut HS RF: 0 fluticasone propionate [Children's Flonase Allergy Rlf] 50 mcg/actuation spray,suspension 1 spray intranasal DAILY RF: 0 metformin 500 mg tablet 1,000 mg PO BID Qty: 0 RF: 0 omeprazole 40 mg capsule,delayed release(DR/EC) 40 mg PO DAILY RF: 0 melatonin 10 mg capsule 10 mg PO HS PRNRF: 0 meclizine 25 mg tablet 25 mg PO TID PRN (Reason: dizziness) Qty: 10 RF: 0 aspirin 81 mg Tablet,Delayed Release (Dr/Ec) 81 mg PO DAILY Qty: 30 RF: 0 acetaminophen [Tylenol] 325 mg Tablet 650 mg PO Q4H PRN PRNQty: 0 RF: 0 lisinopril 20 MG tablet 20 mg PO DAILY Qty: 30 RF: 0 amlodipine 10 mg Tablet 10 mg PO DAILY Qty: 30 RF: 0 ibuprofen [Ibuprofen IB] 200 mg Tablet 400 mg PO QID PRNQty: 0 RF: 0 atenolol 50 MG tablet 50 mg PO DAILY Qty: 30 RF: 0 zolpidem [Ambien] 5 mg tablet 5 mg PO HS PRNRF: 0 Discharge Instructions Instructions: Dental Caries (ED) Additional Instructions: It is suspected that you have a dental infection. There was no evidence of an abscess on your exam today which is a collection of pus usually best treated with drainage with a needle. Alternate tylenol and motrin as needed and directed for pain. Take tramadol for pain not relieved with Tylenol or Motrin. A prescription for antibiotics has been sent electronically to your pharmacy. Take this as directed until finished. Call a dentist on Sunday morning for follow-up. Your blood pressure was significantly high today. It is recommended that you take your blood pressure medication as directed to prevent complications of untreated high blood pressure including stroke, heart attack, kidney disease, etc. Return immediately to the emergency department if you develop any worsening or new concerning symptoms. Discharge Data Discharge Date/Time-TO BE ENTERED AT DEPARTURE: 08/13/21 19:36 Discharge Physician: Rose Mary Skinner Medical Decision Making 56-year-old female with a history of multiple medical problems including diabetes, hypertension, CVA, GERD who presents with left upper dental pain for the past few weeks. She has extensive dental caries throughout. Her blood pressure is significantly hypertensive, 226/121 on arrival, on recheck 215/137. Patient states I forget to take my blood pressure medication. She has no other acute complaints other than her dental pain. Offered to give patient her blood pressure medication here but she declined stating she will take it at home. Patient requesting stronger pain medication here. She is driving home. Dental block performed at bedside with some relief. She was given a dose of penicillin here, tramadol to go and a prescription for penicillin sent electronically to her pharmacy. Patient given dental follow-up list. Advised to call her primary care doctor on Sunday morning for follow-up and further discussion regarding her blood pressure. She was advised to remember to take her blood pressure medication as directed due to significant complications of untreated high blood pressure including CVA, [place], end-stage renal disease requiring dialysis, among other significant complications. Usual and customary return precautions given prior to discharge. Medical Records Medical records reviewed: Yes I reviewed the patient's medical records. HPI General Mode of arrival: ambulatory . Date/Time Provider Initiated Documentation: 08/13/21 17:59 . Limitations to Documentation: no limitations . Information obtained by: patient . HPI Narrative: Patient is a 56-year-old female who presents with left upper dental pain for the past week. Patient states she has been unable to get into a dentist for a long time. She states she has been taking Tylenol and ibuprofen without relief. She states she feels the left side of her face is now falling. She denies any fever or difficulty breathing. Related Data Home Medications Medication Instructions Recorded Confirmed acetaminophen [Tylenol] 650 mg PO Q4H PRN PRN #0 tab 11/29/18 08/13/21 amlodipine 10 mg PO DAILY #30 tab 11/29/18 08/13/21 aspirin 81 mg PO DAILY #30 tab 11/29/18 08/13/21 atenolol 50 mg PO DAILY #30 tab 11/29/18 08/13/21 ibuprofen [Ibuprofen IB] 400 mg PO QID PRN #0 tab 11/29/18 08/13/21 lisinopril 20 mg PO DAILY #30 tab 11/29/18 08/13/21 meclizine 25 mg PO TID PRN #10 tab 01/25/19 08/13/21 metoprolol succinate 50 mg 50 mg PO DAILY 07/10/19 08/13/21 tablet,extended release 24 hr atorvastatin 40 mg tablet 40 mg PO QPM tab 07/29/19 08/13/21 hydrochlorothiazide 25 mg tablet 25 mg PO DAILY tab 07/29/19 08/13/21 albuterol sulfate 90 mcg/actuation 2 puff IH Q6H PRN 01/09/20 08/13/21 aerosol inhaler polyethylene glycol 3350 17 17 gm PO DAILY 01/09/20 08/13/21 gram/dose oral powder fluticasone propionate 50 1 spray INTRANASAL DAILY 04/30/20 08/13/21 mcg/actuation nasal spray,suspension insulin glargine 100 unit/mL (3 26 unit SUBCUT HS ml 04/30/20 08/13/21 mL) subcutaneous pen melatonin 10 mg capsule 10 mg PO HS PRN 12/10/20 08/13/21 metformin 500 mg tablet 1,000 mg PO BID #0 tab 12/10/20 08/13/21 omeprazole 40 mg capsule,delayed 40 mg PO DAILY 12/10/20 08/13/21 release zolpidem [Ambien] 5 mg PO HS PRN 12/19/20 08/13/21 lidocaine 5 % topical patch 1 patch TOPICAL Q24H #10 ea 06/01/21 08/13/21 penicillin V potassium 500 mg PO QID 7 Days #28 tab 08/13/21 Previous Rx's Medication Instructions Recorded acetaminophen [Tylenol] 650 mg PO Q4H PRN PRN #0 tab 11/29/18 amlodipine 10 mg PO DAILY #30 tab 11/29/18 aspirin 81 mg PO DAILY #30 tab 11/29/18 atenolol 50 mg PO DAILY #30 tab 11/29/18 ibuprofen [Ibuprofen IB] 400 mg PO QID PRN #0 tab 11/29/18 lisinopril 20 mg PO DAILY #30 tab 11/29/18 meclizine 25 mg PO TID PRN #10 tab 01/25/19 metformin 500 mg tablet 1,000 mg PO BID #0 tab 12/10/20 lidocaine 5 % topical patch 1 patch TOPICAL Q24H #10 ea 06/01/21 penicillin V potassium 500 mg PO QID 7 Days #28 tab 08/13/21 Allergies Allergy/AdvReac Type Severity Reaction Status Date / Time Sulfa (Sulfonamide Allergy Hives Verified 08/13/21 17:54 Antibiotics) General Stated Complaint: DentalOral NELSY: 4 Review of Systems All systems reviewed & are unremarkable except as noted in HPI and below Constitutional Constitutional: Reports as per HPI, Denies chills and Denies fever(s) Eyes Eyes: Denies blurry vision ENT Ears, Nose, Mouth, and Throat: Reports dental pain, Denies dizziness, Denies sore throat and Denies throat swelling Cardiovascular Cardiovascular: Denies chest pain and Denies dyspnea Respiratory Respiratory: Denies cough and Denies dyspnea Gastrointestinal Gastrointestinal: Denies abdominal pain, Denies diarrhea and Denies vomiting Genitourinary Genitourinary: Denies hematuria and Denies dysuria Musculoskeletal Musculoskeletal: Denies back pain and Denies numbness Integumentary/Breasts Skin/Breast: Denies lesions and Denies rash Neurologic Neurologic: Denies dizziness, Denies localized weakness and Denies numbness Allergic/Immunologic Allergic/Immunologic: Denies throat swelling PFSH All Active Problems (Updated 08/13/21 @ 19:27 by Rose Mary Skinner DO) Infected dental caries (Acute) Lumbago without sciatica (Acute) CAP (community acquired pneumonia) (Acute) Apnea (Acute) Non compliance w medication regimen (Acute) Screening for colon cancer (Acute) GERD (gastroesophageal reflux disease) (Chronic) Type 2 diabetes mellitus (Acute) Constipation (Acute) Erythema multiforme (Acute) Chronic headaches (Acute) Sleeping difficulties (Acute) Benign paroxysmal vertigo (Acute) Arm numbness (Acute) Bilateral carpal tunnel syndrome (Acute) Pulmonary hypertension (Chronic) Diastolic dysfunction (Chronic) Atypical chest pain (Chronic) Herniated nucleus pulposus, C5-6 right (Acute) Diabetes mellitus type 2 in obese (Chronic) Essential hypertension (Chronic) Hypertensive urgency (Acute) Active Problem List Lumbago without sciatica (Acute) CAP (community acquired pneumonia) (Acute) Apnea (Acute) Non compliance w medication regimen (Acute) Screening for colon cancer (Acute) GERD (gastroesophageal reflux disease) (Chronic) Type 2 diabetes mellitus (Acute) Constipation (Acute) Erythema multiforme (Acute) Chronic headaches (Acute) Sleeping difficulties (Acute) Benign paroxysmal vertigo (Acute) Arm numbness (Acute) Bilateral carpal tunnel syndrome (Acute) Pulmonary hypertension (Chronic) Diastolic dysfunction (Chronic) Atypical chest pain (Chronic) Herniated nucleus pulposus, C5-6 right (Acute) Diabetes mellitus type 2 in obese (Chronic) Essential hypertension (Chronic) Hypertensive urgency (Acute) Medical History BPPV (benign paroxysmal positional vertigo) Complicated grief Diabetes mellitus Early satiety Herpes simplex History of depression Hypertension Insomnia Obesity Surgical History History of tubal ligation Family History Mother Heart disease Ovarian cancer Social History Smoking/Tobacco Use Status: Never Smoking risk assessment performed?: Yes Alcohol Intake: current Alcohol Intake frequency: holidays/special occasions only Drug use: Never Substance use type: does not use Household members: spouse Housing: house Number of Children: 5 What is your relationship status?: Panel score (0-1 are the most socially isolated patients): 1 Seatbelt use: always Do you feel safe at home: Yes Do you feel safe in your relationship?: Yes History History 6 Para 5 Hx # Term Pregnancies Multiple births Hx # Pregnancies Ectopic pregnancies AB induced Hx Number of Living Children AB spontaneous Exam Const General: cooperative, healthy appearing and no acute distress HENMT Head: normal to inspection Ears: hearing grossly normal bilaterally, external ears normal and TM's normal bilaterally Mouth: oral mucosae normal, no drooling and no trismus Teeth image: 1. Extensive dental caries. There is surrounding tenderness, erythema and edema but no fluctuance or drainage noted. Throat: posterior oropharynx normal Eyes General: appearance normal, both eyes and all related structures Neck Neck: normal visual inspection, full ROM, no lymphadenopathy, no meningeal signs, trachea midline, supple and No submandibular swelling Resp Effort & Inspection: normal respiratory effort and able to speak in complete sentences Cardio Rate: regular rate Skin General skin exam: no rashes or lesions noted Neuro General: patient alert, patient awake and patient oriented x3 Motor: muscle tone normal throughout Extrem General: normal to inspection and full ROM Psych Appearance: grossly normal Affect: normal affect Course Vital Signs Vital signs: Vital Signs Temperature 97.7 F 08/13/21 17:48 Pulse 87 08/13/21 17:48 Respiratory Rate 16 08/13/21 17:48 Blood Pressure 226/121 H 08/13/21 17:48 Pulse Oximetry 98 08/13/21 17:48 Temperature 97.7 F 08/13/21 17:48 Temperature Source Skin 08/13/21 17:48 Pulse 87 08/13/21 17:48 Respiratory Rate 16 08/13/21 17:48 Respiratory Effort 08/13/21 17:48 Blood Pressure 226/121 H 08/13/21 17:48 Blood Pressure Position Sitting 08/13/21 17:48 Pulse Oximetry 98 08/13/21 17:48 Oxygen Delivery Method Room Air 08/13/21 17:48 Oxygen Flow Rate 0 08/13/21 17:48 Pain Level 10 08/13/21 17:59 Procedures Nerve Block Nerve Block 1: Local Anesthetic: Bupivicaine 0.5% Amount of anesthesia used (mL): 2 Side: left Intraoral Nerve Block: superior alveolar Procedure Successful: Yes Patient Tolerated Procedure: well Complications: none
[2021-08-13 18:25] VITALS: BP 232/133; PULSE 83; RESP 16; TEMP 36.8; O2SAT 97
[2021-08-13 18:30] VITALS: BP 215/137; RESP 14
--- NOTE | 2021-08-13 18:46 | NUR.NOTE ---
Pt assessment done, systolic BP's on both left and right upper extremity above 200. Pt reports she has not been taking her BP meds as ordered because she keeps forgetting. Pt describes a 10 out of 10 left front tooth and left face & mandible area pain. Pt reports she has been taking regular strength tylenol 4 tabs and regular strength ibuprofen 4 tabs together four times a day. Discussed with pt how this is above the recomended safe dose, pt reports she understands this but her pain is not getting any better pt also reports her stomach is bothering her from all the pain medications she has taking. Dr Skinner updated and went to examine pt.
[2021-08-13] MEDS: Penicillin V POTASSIUM 500 MG TAB PO (19:01)
[2021-08-13] MEDS: Bupivacaine 0.5% Pres-Free 30 ML VIAL IJ (19:01)
== END 2021-08-13 19:36 | disposition home or self-care (01) ==
PROVIDERS: Emergency Provider Physician Assistant; PCP Nurse Practitioner Family
DX: K04.7 Periapical abscess without sinus (principal); K02.9 Dental caries, unspecified
CPT/HCPCS: 64400

== ENCOUNTER 2021-11-22 16:56 | Emergency (ER) | payer SELFPAY ==
[2021-11-22 17:01] VITALS: BP 192/101; PULSE 100; RESP 18; TEMP 36.9; O2SAT 97
--- NOTE | 2021-11-22 17:08 | W.ED.GENAD ---
Discharge Plan Disposition Patient Disposition: HOME Condition: Stable Discharge Details Clinical Impression: Chronic cough Primary Care Provider: Carl Garvey ED Provider: Rose Mary Skinner Home Meds and New Rx's Prescriptions: New benzonatate 100 mg capsule 100 mg PO TID PRN (Reason: cough) Qty: 10 0RF fluticasone propionate [Flonase Allergy Relief] 50 mcg/actuation spray,suspension 1 spray intranasal DAILY Qty: 16 0RF Rx Instructions: administer into each nostril Continued atorvastatin [Lipitor] 40 mg tablet 40 mg PO QPM 0RF lidocaine 5 % adhesive patch,medicated 1 patch topical Q24H Qty: 10 0RF Rx Instructions: leave on most painful area for up to 12 hrs metoprolol succinate 50 mg tablet extended release 24 hr 50 mg PO DAILY 0RF hydrochlorothiazide 25 mg tablet 25 mg PO DAILY 0RF polyethylene glycol 3350 [Miralax] 17 gram/dose powder 17 gm PO DAILY 0RF albuterol sulfate [ProAir HFA] 90 mcg/actuation HFA aerosol inhaler 2 puff IH Q6H PRN0RF Basaglar KwikPen U-100 Insulin 100 unit/mL (3 mL) insulin pen 26 unit subcut HS 0RF fluticasone propionate [Children's Flonase Allergy Rlf] 50 mcg/actuation spray,suspension 1 spray intranasal DAILY 0RF Rx Instructions: administer into each nostril metformin 500 mg tablet 1,000 mg PO BID Qty: 0 0RF omeprazole 40 mg capsule,delayed release(DR/EC) 40 mg PO DAILY 0RF melatonin 10 mg capsule 10 mg PO HS PRN0RF meclizine 25 mg tablet 25 mg PO TID PRN (Reason: dizziness) Qty: 10 0RF aspirin 81 mg Tablet,Delayed Release (Dr/Ec) 81 mg PO DAILY Qty: 30 0RF acetaminophen [Tylenol] 325 mg Tablet 650 mg PO Q4H PRN PRNQty: 0 0RF lisinopril 20 MG tablet 20 mg PO DAILY Qty: 30 0RF Label Comments: non-compliant with regiment amlodipine 10 mg Tablet 10 mg PO DAILY Qty: 30 0RF ibuprofen [Ibuprofen IB] 200 mg Tablet 400 mg PO QID PRNQty: 0 0RF atenolol 50 MG tablet 50 mg PO DAILY Qty: 30 0RF zolpidem [Ambien] 5 mg tablet 5 mg PO HS PRN0RF Label Comments: Take 1 tablet by mouth every night as needed Discharge Instructions Instructions: Acute Cough (ED) Additional Instructions: Your chest x-ray today is reassuring and shows no evidence of acute concerning or significant findings. Your chronic cough could be secondary to gastroesophageal reflux disease, allergies or a viral syndrome. You can try nezm-fvb-glamelp allergy medication such as Riddhi, Zyrtec, Claritin for allergies. A prescription for the cough medication Tessalon Perles and the allergy nasal spray Flonase has been sent electronically to your pharmacy. Follow-up with your primary care doctor in 1 week. Return to the emergency department with any worsening or new concerning symptoms. Stand Alone Forms: Work Release Referrals: Jimmy Marie MD [ [facility] STAFF PHYSICIAN] - Discharge Data Discharge Physician: Rose Mary Skinner Medical Decision Making 56-year-old female with a history of GERD, hypertension, diabetes, sleep apnea who presents with chronic cough for the past 3 weeks. Does admit to occasional nasal congestion, sore throat, and shortness of breath but that she recently had a new kitten. Blood pressure hypertensive which is close to her usual baseline. Patient has a history of noncompliance with her medications. She is non-smoker. Normal ENT exam. Lungs clear bilaterally. She has frequent coughing throughout exam. Differential diagnosis includes GERD, allergies, viral syndrome. History and presentation does not appear consistent with pneumonia, bronchitis, ACS, PE or dissection. Chest x-ray obtained which was unremarkable. Patient advised to try qhgv-fbe-[id number] allergy medicine such as Claritin, Riddhi or Zyrtec. A prescription for Flonase and Tessalon Perles provided. Advised to follow up with the primary care doctor for re-evaluation. Usual and customary return precautions given prior to discharge. Medical Records Medical records reviewed: Yes I reviewed the patient's medical records. Imaging Data Radiologic Study: Radiologist's impression: XR Chest Exam date and time: 11/22/2021 5:36 PM Age: 56 years old Clinical indication: Other: Chronic cough/acute disease TECHNIQUE: Imaging protocol: XR of the chest. Views: 2 views. COMPARISON: CR XR CHEST 2V PA LATERAL 12/24/2020 3:13 PM FINDINGS: Lungs: Unremarkable. No consolidation. Pleural spaces: Unremarkable. No pleural effusion. No pneumothorax. Heart/Mediastinum: Unremarkable. No cardiomegaly. Bones/joints: Unremarkable. IMPRESSION: No acute findings. HPI General Mode of arrival: ambulatory. Date/Time Provider Initiated Documentation: 11/22/21 17:07. Limitations to Documentation: no limitations. Information obtained by: patient. HPI Narrative: Pt is a 56yo F who presents to the ED with a complaint of a chronic cough for the past 3 weeks. She states she feels the congestion in her chest but occasionally does cough up white and yellow phlegm. She does occasionally note to back pain and shortness of breath with coughing but denies any chest pain. She denies any fever but has admitted to occasional sore throat. She says she was tested for COVID as recently as at the [employer] where she works and she was negative. She states her granddaughter had COVID 1 week ago. She does state that she got a new kitten and admits to occasional nasal congestion but denies any watery eyes or sneezing. Related Data Home Medications Medication Instructions Recorded Confirmed acetaminophen 325 mg tablet 650 mg PO Q4H PRN PRN #0 tab 11/29/18 11/22/21 (Tylenol) amlodipine 10 mg tablet 10 mg PO DAILY #30 tab 11/29/18 11/22/21 aspirin 81 mg tablet,delayed 81 mg PO DAILY #30 tab 11/29/18 11/22/21 release atenolol 50 mg tablet 50 mg PO DAILY #30 tab 11/29/18 11/22/21 ibuprofen 200 mg tablet (Ibuprofen 400 mg PO QID PRN #0 tab 11/29/18 11/22/21 IB) lisinopril 20 mg tablet 20 mg PO DAILY #30 tab 11/29/18 11/22/21 meclizine 25 mg tablet 25 mg PO TID PRN #10 tab 01/25/19 11/22/21 metoprolol succinate 50 mg 50 mg PO DAILY 07/10/19 11/22/21 tablet,extended release 24 hr atorvastatin 40 mg tablet (Lipitor) 40 mg PO QPM tab 07/29/19 11/22/21 hydrochlorothiazide 25 mg tablet 25 mg PO DAILY tab 07/29/19 11/22/21 albuterol sulfate 90 mcg/actuation 2 puff IH Q6H PRN 01/09/20 11/22/21 aerosol inhaler (ProAir HFA) polyethylene glycol 3350 17 17 gm PO DAILY 01/09/20 11/22/21 gram/dose oral powder (Miralax) fluticasone propionate 50 1 spray INTRANASAL DAILY 04/30/20 11/22/21 mcg/actuation nasal spray,suspension (Children's Flonase Allergy Relief) insulin glargine 100 unit/mL (3 26 unit SUBCUT HS ml 04/30/20 11/22/21 mL) subcutaneous pen (Basaglar KwikPen U-100 Insulin) melatonin 10 mg capsule 10 mg PO HS PRN 12/10/20 11/22/21 metformin 500 mg tablet 1,000 mg PO BID #0 tab 12/10/20 11/22/21 omeprazole 40 mg capsule,delayed 40 mg PO DAILY 12/10/20 11/22/21 release zolpidem 5 mg tablet (Ambien) 5 mg PO HS PRN 12/19/20 11/22/21 lidocaine 5 % topical patch 1 patch TOPICAL Q24H #10 ea 06/01/21 11/22/21 benzonatate 100 mg capsule 100 mg PO TID PRN #10 cap 11/22/21 fluticasone propionate 50 1 spray INTRANASAL DAILY #16 g 11/22/21 mcg/actuation nasal spray,suspension (Flonase Allergy Relief) Previous Rx's Medication Instructions Recorded acetaminophen 325 mg tablet 650 mg PO Q4H PRN PRN #0 tab 11/29/18 (Tylenol) amlodipine 10 mg tablet 10 mg PO DAILY #30 tab 11/29/18 aspirin 81 mg tablet,delayed 81 mg PO DAILY #30 tab 11/29/18 release atenolol 50 mg tablet 50 mg PO DAILY #30 tab 11/29/18 ibuprofen 200 mg tablet (Ibuprofen 400 mg PO QID PRN #0 tab 11/29/18 IB) lisinopril 20 mg tablet 20 mg PO DAILY #30 tab 11/29/18 meclizine 25 mg tablet 25 mg PO TID PRN #10 tab 01/25/19 metformin 500 mg tablet 1,000 mg PO BID #0 tab 12/10/20 lidocaine 5 % topical patch 1 patch TOPICAL Q24H #10 ea 06/01/21 benzonatate 100 mg capsule 100 mg PO TID PRN #10 cap 11/22/21 fluticasone propionate 50 1 spray INTRANASAL DAILY #16 g 11/22/21 mcg/actuation nasal spray,suspension (Flonase Allergy Relief) Allergies Allergy/AdvReac Type Severity Reaction Status Date / Time Sulfa (Sulfonamide Allergy Hives Verified 11/22/21 17:05 Antibiotics) General Stated Complaint: RespSymp NELSY: 4 Review of Systems All systems reviewed & are unremarkable except as noted in HPI and below Constitutional Constitutional: Reports as per HPI, Denies chills and Denies fever(s) Eyes Eyes: Denies blurry vision ENT Ears, Nose, Mouth, and Throat: Denies dizziness, Reports nasal congestion, Denies sore throat and Denies throat swelling Cardiovascular Cardiovascular: Denies chest pain and Denies dyspnea Respiratory Respiratory: Reports cough and Denies dyspnea Gastrointestinal Gastrointestinal: Denies abdominal pain, Denies diarrhea and Denies vomiting Genitourinary Genitourinary: Denies hematuria and Denies dysuria Musculoskeletal Musculoskeletal: Denies back pain and Denies numbness Integumentary/Breasts Skin/Breast: Denies lesions and Denies rash Neurologic Neurologic: Denies dizziness, Denies localized weakness and Denies numbness Allergic/Immunologic Allergic/Immunologic: Denies throat swelling PFSH All Active Problems (Updated 11/22/21 @ 17:39 by Rose Mary Skinner DO) Chronic cough (Acute) Lumbago without sciatica (Acute) CAP (community acquired pneumonia) (Acute) Apnea (Acute) Non compliance w medication regimen (Acute) Screening for colon cancer (Acute) GERD (gastroesophageal reflux disease) (Chronic) Type 2 diabetes mellitus (Acute) Constipation (Acute) Erythema multiforme (Acute) Chronic headaches (Acute) Sleeping difficulties (Acute) Benign paroxysmal vertigo (Acute) Arm numbness (Acute) Bilateral carpal tunnel syndrome (Acute) Pulmonary hypertension (Chronic) Diastolic dysfunction (Chronic) Atypical chest pain (Chronic) Herniated nucleus pulposus, C5-6 right (Acute) Diabetes mellitus type 2 in obese (Chronic) Essential hypertension (Chronic) Hypertensive urgency (Acute) Active Problem List Lumbago without sciatica (Acute) CAP (community acquired pneumonia) (Acute) Apnea (Acute) Non compliance w medication regimen (Acute) Screening for colon cancer (Acute) GERD (gastroesophageal reflux disease) (Chronic) Type 2 diabetes mellitus (Acute) Constipation (Acute) Erythema multiforme (Acute) Chronic headaches (Acute) Sleeping difficulties (Acute) Benign paroxysmal vertigo (Acute) Arm numbness (Acute) Bilateral carpal tunnel syndrome (Acute) Pulmonary hypertension (Chronic) Diastolic dysfunction (Chronic) Atypical chest pain (Chronic) Herniated nucleus pulposus, C5-6 right (Acute) Diabetes mellitus type 2 in obese (Chronic) Essential hypertension (Chronic) Hypertensive urgency (Acute) Medical History BPPV (benign paroxysmal positional vertigo) Complicated grief Diabetes mellitus Early satiety Herpes simplex History of depression Hypertension Insomnia Obesity Surgical History History of tubal ligation Family History Mother Heart disease Ovarian cancer Social History Smoking/Tobacco Use Status: Never Smoking risk assessment performed?: Yes Alcohol Intake: current Alcohol Intake frequency: holidays/special occasions only Drug use: Never Substance use type: does not use Household members: spouse Housing: house Number of Children: 5 What is your relationship status?: Panel score (0-1 are the most socially isolated patients): 1 Seatbelt use: always Do you feel safe at home: Yes Do you feel safe in your relationship?: Yes History History 6 Para 5 Hx # Term Pregnancies Multiple births Hx # Pregnancies Ectopic pregnancies AB induced Hx Number of Living Children AB spontaneous Exam Const General: cooperative and no acute distress Orientation: alert, awake and oriented x3 HENMT Head: normal to inspection Ears: hearing grossly normal bilaterally, external ears normal and TM's normal bilaterally General nose exam: external nose normal Mouth: oral mucosae normal Throat: posterior oropharynx normal Eyes General: appearance normal, both eyes and all related structures Neck Neck: normal visual inspection Resp Effort & Inspection: normal respiratory effort and able to speak in complete sentences Auscultation: clear to auscultation bilaterally Cardio Rate: regular rate Rhythm: regular rhythm Skin General skin exam: no rashes or lesions noted Neuro General: patient alert, patient awake and patient oriented x3 Motor: muscle tone normal throughout Extrem General: normal to inspection and full ROM Psych Appearance: grossly normal Affect: normal affect Course Vital Signs Vital signs: Vital Signs Temperature 98.4 F 11/22/21 17:01 Pulse 100 H 11/22/21 17:01 Respiratory Rate 18 11/22/21 17:01 Blood Pressure 192/101 H 11/22/21 17:01 Pulse Oximetry 97 11/22/21 17:01 Temperature 98.4 F 11/22/21 17:01 Temperature Source Temporal Artery Scan 11/22/21 17:01 Pulse 100 H 11/22/21 17:01 Respiratory Rate 18 11/22/21 17:01 Respiratory Effort Non-Labored 11/22/21 17:04 Blood Pressure 192/101 H 11/22/21 17:01 Blood Pressure Position Sitting 11/22/21 17:01 Pulse Oximetry 97 11/22/21 17:01 Oxygen Delivery Method Room Air 11/22/21 17:01 Oxygen Flow Rate 0 11/22/21 17:01 Pain Level 3 11/22/21 17:01
--- NOTE | 2021-11-22 17:15 | DI.RAD_ITS ---
Exam(s) XR CHEST 2V PA LATERAL EXAM: XR CHEST 2V PA LATERAL CLINICAL HISTORY: chronic cough, r/o acute disease. TECHNIQUE: 2D digital imaging was performed. COMPARISON: CR XR CHEST 2V PA LATERAL from 12/24/2020 FINDINGS: 2 views: Heart size is normal. The mediastinum is not widened. Lungs are clear. No infiltrates nor pleural effusions. IMPRESSION: No acute pulmonary findings.No significant change compared to 12/24/2020. DATA REPOSITORY: RADIATION DOSE DELIVERED:
--- NOTE | 2021-11-22 18:09 | DI.VRAD_ITS ---
PROCEDURE INFORMATION: Exam: XR Chest Exam date and time: 11/22/2021 5:36 PM Age: 56 years old Clinical indication: Other: Chronic cough/acute disease TECHNIQUE: Imaging protocol: XR of the chest. Views: 2 views. COMPARISON: CR XR CHEST 2V PA LATERAL 12/24/2020 3:13 PM FINDINGS: Lungs: Unremarkable. No consolidation. Pleural spaces: Unremarkable. No pleural effusion. No pneumothorax. Heart/Mediastinum: Unremarkable. No cardiomegaly. Bones/joints: Unremarkable. IMPRESSION: No acute findings. Dictated and Authenticated by: Kerri Barnes MD. Ordering:ASIM Bazzi MD
== END 2021-11-22 18:35 | disposition home or self-care (01) ==
PROVIDERS: Emergency Provider Physician Assistant; PCP Nurse Practitioner Family
DX: R05.3 Chronic cough (principal)
CPT/HCPCS: 99283; 71046

== ENCOUNTER 2022-01-25 22:30 | Emergency (ER) | payer SELFPAY ==
[2022-01-25 22:40] VITALS: BP 202/114; PULSE 89; RESP 14; TEMP 36.3; O2SAT 97
--- NOTE | 2022-01-25 23:06 | W.ED.GENAD ---
Discharge Plan Disposition Patient Disposition: HOME Condition: Stable Discharge Details Clinical Impression: Yeast infection Primary Care Provider: Carl Garvey ED Provider: Rashid Barakat Home Meds and New Rx's Prescriptions: New fluconazole [Diflucan] 150 mg tablet 150 mg PO ONCE Qty: 1 0RF Rx Instructions: as a single dose, if needed Continued atorvastatin [Lipitor] 40 mg tablet 40 mg PO QPM lidocaine 5 % adhesive patch,medicated 1 patch topical Q24H Qty: 10 0RF Rx Instructions: leave on most painful area for up to 12 hrs metoprolol succinate 50 mg tablet extended release 24 hr 50 mg PO DAILY hydrochlorothiazide 25 mg tablet 25 mg PO DAILY polyethylene glycol 3350 [Miralax] 17 gram/dose powder 17 gm PO DAILY albuterol sulfate [ProAir HFA] 90 mcg/actuation HFA aerosol inhaler 2 puff IH Q6H PRN insulin glargine [Basaglar KwikPen U-100 Insulin] 100 unit/mL (3 mL) insulin pen 26 unit subcut HS fluticasone propionate [Children's Flonase Allergy Rlf] 50 mcg/actuation spray,suspension 1 spray intranasal DAILY Rx Instructions: administer into each nostril metformin 500 mg tablet 1,000 mg PO BID Qty: 0 0RF omeprazole 40 mg capsule,delayed release(DR/EC) 40 mg PO DAILY melatonin 10 mg capsule 10 mg PO HS PRN meclizine 25 mg tablet 25 mg PO TID PRN (Reason: dizziness) Qty: 10 0RF benzonatate 100 mg capsule 100 mg PO TID PRN (Reason: cough) Qty: 10 0RF fluticasone propionate [Flonase Allergy Relief] 50 mcg/actuation spray,suspension 1 spray intranasal DAILY Qty: 16 0RF Rx Instructions: administer into each nostril aspirin 81 mg Tablet,Delayed Release (Dr/Ec) 81 mg PO DAILY Qty: 30 0RF acetaminophen [Tylenol] 325 mg Tablet 650 mg PO Q4H PRN PRNQty: 0 0RF lisinopril 20 MG tablet 20 mg PO DAILY Qty: 30 0RF Label Comments: non-compliant with regiment amlodipine 10 mg Tablet 10 mg PO DAILY Qty: 30 0RF ibuprofen [Ibuprofen IB] 200 mg Tablet 400 mg PO QID PRNQty: 0 0RF atenolol 50 MG tablet 50 mg PO DAILY Qty: 30 0RF zolpidem [Ambien] 5 mg tablet 5 mg PO HS PRN Label Comments: Take 1 tablet by mouth every night as needed Discharge Instructions Instructions: Yeast Infection (ED) Additional Instructions: May repeat Diflucan in 5 days if needed. Resume your medications as prescribed. You may trial taking lisinopril at bedtime. Please follow-up with Carl Garvey in the office for recheck. Return to the ER for any acute concerns. Medical Decision Making 56-year-old female presents with days of intermittent episodes of urinary frequency, urgency, burning. No flank pain or vomiting. She has not been systemically ill. She is afebrile but hypertensive. She will relate that she has difficulty taking all her blood pressure medications together in the morning. Therefore she sometimes does not take them. I counseled her to begin by trying taking lisinopril at bedtime as an initial approach which she will pursue tonight. In the emergency department her urinalysis shows glucosuria but no evidence of infection. She has had itching as one of her predominant symptoms at her internal vaginal introitus. She wishes to defer vaginal exam this evening. Do think a trial of treatment with Diflucan for yeast infection is reasonable. She will follow-up with Carl Garvey in the office for recheck. She stated she would make the appointment. [facility] General Mode of arrival: ambulatory. Date/Time Provider Initiated Documentation: 01/25/22 22:32. Limitations to Documentation: no limitations. Information obtained by: patient. History of Present Illness 56 year old F presents to the emergency department with the chief complaint of Urinary frequency, urgency, described as moderate and similar to prior episodes, and is localized to the abdomen and pelvis. Patient reports no radiation. Patient started experiencing this day(s) and it has been intermittent. No relieving factors improve symptom(s), No exacerbating factors reported . Patient notes denies fever/chills and nausea/vomiting. Patient did receive the following treatments prior to arrival, none Related Data Home Medications Medication Instructions Recorded Confirmed acetaminophen 325 mg tablet 650 mg PO Q4H PRN PRN #0 tabs 11/29/18 01/25/22 (Tylenol) amlodipine 10 mg tablet 10 mg PO DAILY #30 tabs 11/29/18 11/22/21 aspirin 81 mg tablet,delayed 81 mg PO DAILY #30 tabs 11/29/18 11/22/21 release atenolol 50 mg tablet 50 mg PO DAILY #30 tabs 11/29/18 11/22/21 ibuprofen 200 mg tablet (Ibuprofen 400 mg PO QID PRN #0 tabs 11/29/18 01/25/22 IB) lisinopril 20 mg tablet 20 mg PO DAILY #30 tabs 11/29/18 11/22/21 meclizine 25 mg tablet 25 mg PO TID PRN dizziness #10 tabs 01/25/19 01/25/22 metoprolol succinate 50 mg 50 mg PO DAILY 07/10/19 11/22/21 tablet,extended release 24 hr atorvastatin 40 mg tablet (Lipitor) 40 mg PO QPM 07/29/19 01/25/22 hydrochlorothiazide 25 mg tablet 25 mg PO DAILY 07/29/19 01/25/22 albuterol sulfate 90 mcg/actuation 2 puff inhalation Q6H PRN 01/09/20 01/25/22 aerosol inhaler (ProAir HFA) polyethylene glycol 3350 17 17 gm PO DAILY 01/09/20 11/22/21 gram/dose oral powder (Miralax) fluticasone propionate 50 1 spray intranasal DAILY 04/30/20 01/25/22 mcg/actuation nasal spray,suspension (Children's Flonase Allergy Relief) insulin glargine 100 unit/mL (3 26 unit subcut HS 04/30/20 01/25/22 mL) subcutaneous pen (Basaglar KwikPen U-100 Insulin) melatonin 10 mg capsule 10 mg PO HS PRN 12/10/20 11/22/21 metformin 500 mg tablet 1,000 mg PO BID #0 tabs 12/10/20 11/22/21 omeprazole 40 mg capsule,delayed 40 mg PO DAILY 12/10/20 01/25/22 release zolpidem 5 mg tablet (Ambien) 5 mg PO HS PRN 12/19/20 01/25/22 lidocaine 5 % topical patch 1 patch topical Q24H Lumbago #10 ea 06/01/21 11/22/21 benzonatate 100 mg capsule 100 mg PO TID PRN cough #10 caps 11/22/21 fluticasone propionate 50 1 spray intranasal DAILY #16 grams 11/22/21 01/25/22 mcg/actuation nasal spray,suspension (Flonase Allergy Relief) fluconazole 150 mg tablet 150 mg PO ONCE #1 tab 01/25/22 (Diflucan) Previous Rx's Medication Instructions Recorded acetaminophen 325 mg tablet 650 mg PO Q4H PRN PRN #0 tabs 11/29/18 (Tylenol) amlodipine 10 mg tablet 10 mg PO DAILY #30 tabs 11/29/18 aspirin 81 mg tablet,delayed 81 mg PO DAILY #30 tabs 11/29/18 release atenolol 50 mg tablet 50 mg PO DAILY #30 tabs 11/29/18 ibuprofen 200 mg tablet (Ibuprofen 400 mg PO QID PRN #0 tabs 11/29/18 IB) lisinopril 20 mg tablet 20 mg PO DAILY #30 tabs 11/29/18 meclizine 25 mg tablet 25 mg PO TID PRN dizziness #10 tabs 01/25/19 metformin 500 mg tablet 1,000 mg PO BID #0 tabs 12/10/20 lidocaine 5 % topical patch 1 patch topical Q24H Lumbago #10 ea 06/01/21 benzonatate 100 mg capsule 100 mg PO TID PRN cough #10 caps 11/22/21 fluticasone propionate 50 1 spray intranasal DAILY #16 grams 11/22/21 mcg/actuation nasal spray,suspension (Flonase Allergy Relief) fluconazole 150 mg tablet 150 mg PO ONCE #1 tab 01/25/22 (Diflucan) Allergies Allergy/AdvReac Type Severity Reaction Status Date / Time Sulfa (Sulfonamide Allergy Hives Verified 01/25/22 22:45 Antibiotics) General Stated Complaint: Urinary NELSY: 4 Review of Systems Narrative: No flank pain, fever, vomiting. Has had trouble taking her blood pressure medications. No headaches. Sick systems reviewed and otherwise negative PFSH All Active Problems (Updated 01/25/22 @ 23:20 by Rashid Barakat MD) Yeast infection (Acute) Lumbago without sciatica (Acute) CAP (community acquired pneumonia) (Acute) Apnea (Acute) Non compliance w medication regimen (Acute) Screening for colon cancer (Acute) GERD (gastroesophageal reflux disease) (Chronic) Type 2 diabetes mellitus (Acute) Constipation (Acute) Erythema multiforme (Acute) Chronic headaches (Acute) Sleeping difficulties (Acute) Benign paroxysmal vertigo (Acute) Arm numbness (Acute) Bilateral carpal tunnel syndrome (Acute) Pulmonary hypertension (Chronic) Diastolic dysfunction (Chronic) Atypical chest pain (Chronic) Herniated nucleus pulposus, C5-6 right (Acute) Diabetes mellitus type 2 in obese (Chronic) Essential hypertension (Chronic) Hypertensive urgency (Acute) Medical History BPPV (benign paroxysmal positional vertigo) Complicated grief Diabetes mellitus Early satiety Herpes simplex History of depression Hypertension Insomnia Obesity Surgical History History of tubal ligation Family History Mother Heart disease Ovarian cancer Social History Smoking/Tobacco Use Status: Never Smoking risk assessment performed?: Yes Alcohol Intake: current Alcohol Intake frequency: holidays/special occasions only Drug use: Never Substance use type: does not use Household members: spouse Housing: house Number of Children: 5 What is your relationship status?: Panel score (0-1 are the most socially isolated patients): 1 Seatbelt use: always Do you feel safe at home: Yes Do you feel safe in your relationship?: Yes History History 6 Para 5 Hx # Term Pregnancies Multiple births Hx # Pregnancies Ectopic pregnancies AB induced Hx Number of Living Children AB spontaneous Exam Narrative Exam Narrative: GEN: awake, alert, oriented 3. Pleasant, well groomed, interactive. HEAD: Normocephalic, atraumatic ENT: Mucous membranes moist, oropharynx unremarkable, External ear exam unremarkable EYES: PERRL, EOMI NECK: Full ROM, no DELORES, no menigismus CHEST/RESP: Nontender, clear to auscultation bilateral, no wheeze/rhonchi/rales CARDIOVASCULAR: RRR, no murmur, rub cindy. 2+ Rad pulse bilateral ABDOMEN: Soft, mild suprapubic tenderness without rebound or guarding, no mass. +Bowel sounds EXT: Full ROM, no edema, no rash Neuro: Grossly normal neurologic exam, conversant, interactive. Psych: Speech fluent, thoughts congruent, affect normal Course Vital Signs Vital signs: Vital Signs Temperature 36.3 C L 01/25/22 22:40 Pulse 89 01/25/22 22:40 Respiratory Rate 14 01/25/22 22:40 Blood Pressure 202/114 H 01/25/22 22:40 Pulse Oximetry 97 01/25/22 22:40 Temperature 36.3 C L 01/25/22 22:40 Temperature Source Skin 01/25/22 22:40 Pulse 89 01/25/22 22:40 Respiratory Rate 14 01/25/22 22:40 Respiratory Effort Non-Labored 01/25/22 22:51 Blood Pressure 202/114 H 01/25/22 22:40 Blood Pressure Position Sitting 01/25/22 22:40 Pulse Oximetry 97 01/25/22 22:40 Oxygen Delivery Method Room Air 01/25/22 22:40 Oxygen Flow Rate 0 01/25/22 22:40 Pain Level 5 01/25/22 22:51 Lab/Test Results Lab/Test Results: 01/25/22 22:51 Urine - Clean Catch Urine Culture - Pending
[2022-01-25 23:11] LABS: Bilirubin Negative (Negative); Blood Moderate (Negative); Clarity Clear (Clear); Glucose >=1000 mg/dL (Negative); Ketones Negative (Negative); Leukocyte Esterase Negative (Negative); Nitrite Negative (Negative); Urobilinogen 0.2 EU/dL (Up TO 0.2); pH 5.5 (5-8)
[2022-01-25 23:13] LABS: Bacteria Negative HPF (Negative); C & S Indicated? C&S Done As Ordered; Casts Negative LPF (Negative); Crystals Negative HPF (Negative); Epithelial Cells Rare HPF (Negative); Mucus Negative (Negative); RBC 0-2 HPF (0-2); WBC 0-2 HPF (0-5)
[2022-01-25] MEDS: Fluconazole 150 MG TAB PO (23:46)
[2022-01-25 23:47] VITALS: BP 198/112; PULSE 80; RESP 14; TEMP 36.1; O2SAT 97
== END 2022-01-26 00:02 | disposition home or self-care (01) ==
PROVIDERS: Emergency Medicine; Emergency Provider Emergency Medicine; PCP Nurse Practitioner Family
DX: B37.3 Candidiasis of vulva and vagina (principal)
CPT/HCPCS: 99283; 81003; 81015; 87086

== ENCOUNTER 2022-03-06 18:29 | Outpatient (REF) | payer SELFPAY | END 2022-03-06 18:30 | disposition home or self-care (01) | LOC: NCHCN 18:29 | PROVIDERS: PCP Nurse Practitioner Family; Visit Provider Nurse Practitioner Family | DX: R30.0 Dysuria (principal) | CPT/HCPCS: 87480; 87510; 87660 ==

== ENCOUNTER 2022-07-25 16:56 | Emergency (ER) | payer SELFPAY ==
[2022-07-25 17:08] VITALS: BP 241/130; PULSE 77; RESP 18; TEMP 37; O2SAT 97
--- NOTE | 2022-07-25 17:18 | ED.GENADUL_ITS ---
Discharge Plan Disposition Patient Disposition: Home Condition: Improving Discharge Details Clinical Impression: Odontalgia Primary Care Provider: None,None ED Provider: Rashid Barakat Home Meds and New Rx's Prescriptions: New penicillin V potassium 500 mg tablet 500 mg PO TID 10 Days Qty: 30 0RF hydrocodone-acetaminophen 5-325 mg tablet 1 tab PO BID PRN (Reason: pain) Qty: 7 0RF Continued atorvastatin [Lipitor] 40 mg tablet 40 mg PO QPM lidocaine 5 % adhesive patch,medicated 1 patch topical Q24H Qty: 10 0RF Rx Instructions: leave on most painful area for up to 12 hrs metoprolol succinate 50 mg tablet extended release 24 hr 50 mg PO DAILY hydrochlorothiazide 25 mg tablet 25 mg PO DAILY polyethylene glycol 3350 [Miralax] 17 gram/dose powder 17 gm PO DAILY albuterol sulfate [ProAir HFA] 90 mcg/actuation HFA aerosol inhaler 2 puff IH Q6H PRN insulin glargine [Basaglar KwikPen U-100 Insulin] 100 unit/mL (3 mL) insulin pen 26 unit subcut HS fluticasone propionate [Children's Flonase Allergy Rlf] 50 mcg/actuation spray,suspension 1 spray intranasal DAILY Rx Instructions: administer into each nostril metformin 500 mg tablet 1,000 mg PO BID Qty: 0 0RF omeprazole 40 mg capsule,delayed release(DR/EC) 40 mg PO DAILY melatonin 10 mg capsule 10 mg PO HS PRN meclizine 25 mg tablet 25 mg PO TID PRN (Reason: dizziness) Qty: 10 0RF benzonatate 100 mg capsule 100 mg PO TID PRN (Reason: cough) Qty: 10 0RF fluticasone propionate [Flonase Allergy Relief] 50 mcg/actuation spray,suspension 1 spray intranasal DAILY Qty: 16 0RF Rx Instructions: administer into each nostril fluconazole [Diflucan] 150 mg tablet 150 mg PO ONCE Qty: 1 0RF Rx Instructions: as a single dose, if needed aspirin 81 mg Tablet,Delayed Release (Dr/Ec) 81 mg PO DAILY Qty: 30 0RF acetaminophen [Tylenol] 325 mg Tablet 650 mg PO Q4H PRN PRNQty: 0 0RF lisinopril 20 MG tablet 20 mg PO DAILY Qty: 30 0RF Label Comments: non-compliant with regiment amlodipine 10 mg Tablet 10 mg PO DAILY Qty: 30 0RF ibuprofen [Ibuprofen IB] 200 mg Tablet 400 mg PO QID PRNQty: 0 0RF atenolol 50 MG tablet 50 mg PO DAILY Qty: 30 0RF zolpidem [Ambien] 5 mg tablet 5 mg PO HS PRN Label Comments: Take 1 tablet by mouth every night as needed Discharge Instructions Instructions: Toothache (ED) Additional Instructions: Warm salt water gargles to reduce discomfort. May continue ibuprofen as needed for pain. May use the provided hydrocodone with Tylenol as needed for severe or breakthrough pain. No alcohol, driving, or additional Tylenol with this medication. We will ask our care managers to arrange a follow-up for you in primary care clinic. You need to restart your medications including those for blood pressure and diabetes. Take the penicillin as prescribed until finished. Return to the ER for any acute concern. Medical Decision Making This is a 57-year-old female who presents with right lower dental pain, she has poor dentition, has not been taking her medications and needs to follow-up with her primary care physician as she is well aware. Today she has an apical tooth infection, we will treat with a course of penicillin. She does not wish further work-up at this time. She was consented for the use of a small number of narcotics. She is stable and appropriate to discharge home. HPI General Mode of arrival: ambulatory . Date/Time Provider Initiated Documentation: 07/25/22 16:57 . Limitations to Documentation: no limitations . Information obtained by: patient . History of Present Illness 57 year old F presents to the emergency department with the chief complaint of Right lower dental pain, poor dentition, described as moderate, Quality is described as dull and constant, and is localized to the face, mouth and right. Patient reports no radiation. Patient started experiencing this hour(s) and it has been constant. No relieving factors improve symptom(s), No exacerbating factors reported . Patient notes denies cough, fever/chills and shortness of breath. Patient did receive the following treatments prior to arrival, NSAID Related Data Home Medications Medication Instructions Recorded Confirmed acetaminophen 325 mg tablet 650 mg PO Q4H PRN PRN #0 tabs 11/29/18 07/25/22 (Tylenol) amlodipine 10 mg tablet 10 mg PO DAILY #30 tabs 11/29/18 07/25/22 aspirin 81 mg tablet,delayed 81 mg PO DAILY #30 tabs 11/29/18 07/25/22 release atenolol 50 mg tablet 50 mg PO DAILY #30 tabs 11/29/18 07/25/22 ibuprofen 200 mg tablet (Ibuprofen 400 mg PO QID PRN #0 tabs 11/29/18 07/25/22 IB) lisinopril 20 mg tablet 20 mg PO DAILY #30 tabs 11/29/18 07/25/22 meclizine 25 mg tablet 25 mg PO TID PRN dizziness #10 tabs 01/25/19 07/25/22 metoprolol succinate 50 mg 50 mg PO DAILY 07/10/19 07/25/22 tablet,extended release 24 hr atorvastatin 40 mg tablet (Lipitor) 40 mg PO QPM 07/29/19 07/25/22 hydrochlorothiazide 25 mg tablet 25 mg PO DAILY 07/29/19 07/25/22 albuterol sulfate 90 mcg/actuation 2 puff inhalation Q6H PRN 01/09/20 07/25/22 aerosol inhaler (ProAir HFA) polyethylene glycol 3350 17 17 gm PO DAILY 01/09/20 07/25/22 gram/dose oral powder (Miralax) fluticasone propionate 50 1 spray intranasal DAILY 04/30/20 07/25/22 mcg/actuation nasal spray,suspension (Children's Flonase Allergy Relief) insulin glargine 100 unit/mL (3 26 unit subcut HS 04/30/20 07/25/22 mL) subcutaneous pen (Ch[employer] [place] U-100 Insulin) melatonin 10 mg capsule 10 mg PO HS PRN 12/10/20 07/25/22 metformin 500 mg tablet 1,000 mg PO BID #0 tabs 12/10/20 07/25/22 omeprazole 40 mg capsule,delayed 40 mg PO DAILY 12/10/20 07/25/22 release zolpidem 5 mg tablet (Ambien) 5 mg PO HS PRN 12/19/20 07/25/22 lidocaine 5 % topical patch 1 patch topical Q24H Lumbago #10 ea 06/01/21 07/25/22 benzonatate 100 mg capsule 100 mg PO TID PRN cough #10 caps 11/22/21 07/25/22 fluticasone propionate 50 1 spray intranasal DAILY #16 grams 11/22/21 07/25/22 mcg/actuation nasal spray,suspension (Flonase Allergy Relief) fluconazole 150 mg tablet 150 mg PO ONCE #1 tab 01/25/22 07/25/22 (Diflucan) hydrocodone 5 mg-acetaminophen 325 1 tab PO BID PRN pain #7 tabs 07/25/22 mg tablet penicillin V potassium 500 mg 500 mg PO TID 10 days #30 tabs 07/25/22 tablet Previous Rx's Medication Instructions Recorded acetaminophen 325 mg tablet 650 mg PO Q4H PRN PRN #0 tabs 11/29/18 (Tylenol) amlodipine 10 mg tablet 10 mg PO DAILY #30 tabs 11/29/18 aspirin 81 mg tablet,delayed 81 mg PO DAILY #30 tabs 11/29/18 release atenolol 50 mg tablet 50 mg PO DAILY #30 tabs 11/29/18 ibuprofen 200 mg tablet (Ibuprofen 400 mg PO QID PRN #0 tabs 11/29/18 IB) lisinopril 20 mg tablet 20 mg PO DAILY #30 tabs 11/29/18 meclizine 25 mg tablet 25 mg PO TID PRN dizziness #10 tabs 01/25/19 metformin 500 mg tablet 1,000 mg PO BID #0 tabs 12/10/20 lidocaine 5 % topical patch 1 patch topical Q24H Lumbago #10 ea 06/01/21 benzonatate 100 mg capsule 100 mg PO TID PRN cough #10 caps 11/22/21 fluticasone propionate 50 1 spray intranasal DAILY #16 grams 11/22/21 mcg/actuation nasal spray,suspension (Flonase Allergy Relief) fluconazole 150 mg tablet 150 mg PO ONCE #1 tab 01/25/22 (Diflucan) hydrocodone 5 mg-acetaminophen 325 1 tab PO BID PRN pain #7 tabs 07/25/22 mg tablet penicillin V potassium 500 mg 500 mg PO TID 10 days #30 tabs 07/25/22 tablet Allergies Allergy/AdvReac Type Severity Reaction Status Date / Time Sulfa (Sulfonamide Allergy Hives Verified 07/25/22 17:14 Antibiotics) General Stated Complaint: DentalOral NELSY: 4 Review of Systems Narrative: No difficulty swallowing, no drooling, no change to voice. Not currently taking her medications. Has plans to follow-up with primary care. 6 systems were reviewed and otherwise negative. PFSH All Active Problems (Updated 07/25/22 @ 17:23 by Rashid Barakat MD) Odontalgia (Acute) Lumbago without sciatica (Acute) CAP (community acquired pneumonia) (Acute) Apnea (Acute) Non compliance w medication regimen (Acute) Screening for colon cancer (Acute) GERD (gastroesophageal reflux disease) (Chronic) Type 2 diabetes mellitus (Acute) Constipation (Acute) Erythema multiforme (Acute) Chronic headaches (Acute) Sleeping difficulties (Acute) Benign paroxysmal vertigo (Acute) Arm numbness (Acute) Bilateral carpal tunnel syndrome (Acute) Pulmonary hypertension (Chronic) Diastolic dysfunction (Chronic) Atypical chest pain (Chronic) Herniated nucleus pulposus, C5-6 right (Acute) Diabetes mellitus type 2 in obese (Chronic) Essential hypertension (Chronic) Hypertensive urgency (Acute) Medical History BPPV (benign paroxysmal positional vertigo) Complicated grief Diabetes mellitus Early satiety Herpes simplex History of depression Hypertension Insomnia Obesity Surgical History History of tubal ligation Family History Mother Heart disease Ovarian cancer Social History Smoking/Tobacco Use Status: Never Smoking risk assessment performed?: Yes Alcohol Intake: current Alcohol Intake frequency: holidays/special occasions only Drug use: Never Substance use type: does not use Household members: spouse Housing: house Number of Children: 5 What is your relationship status?: Panel score (0-1 are the most socially isolated patients): 1 Seatbelt use: always Do you feel safe at home: Yes Do you feel safe in your relationship?: Yes History History 6 Para 5 Hx # Term Pregnancies Multiple births Hx # Pregnancies Ectopic pregnancies AB induced Hx Number of Living Children AB spontaneous Exam Narrative Exam Narrative: GEN: awake, alert, oriented 3. Pleasant, well groomed, interactive. HEAD: Normocephalic, atraumatic ENT: Mucous membranes moist, oropharynx with poor dentition throughout. Missing teeth and partially broken teeth. There is dental caries and tenderness at the lower right lateral incisors. No significant buccal or lingual fluctuance. EYES: PERRL, EOMI NECK: Full ROM, no DELORES, no menigismus CHEST/RESP: Nontender, clear to auscultation bilateral, no wheeze/rhonchi/rales CARDIOVASCULAR: RRR, no murmur, rub cindy. 2+ Rad pulse bilateral Neuro: Grossly normal neurologic exam, conversant, interactive. Psych: Speech fluent, thoughts congruent, affect normal Course Vital Signs Vital signs: Vital Signs Temperature 37.0 C 07/25/22 17:08 Pulse 77 07/25/22 17:08 Respiratory Rate 18 07/25/22 17:08 Blood Pressure 241/130 H 07/25/22 17:08 Pulse Oximetry 97 07/25/22 17:08 Temperature 37.0 C 07/25/22 17:08 Temperature Source Temporal Artery Scan 07/25/22 17:08 Pulse 77 07/25/22 17:08 Respiratory Rate 18 07/25/22 17:08 Respiratory Effort Non-Labored 07/25/22 17:14 Blood Pressure 241/130 H 07/25/22 17:08 Blood Pressure Position Sitting 07/25/22 17:08 Pulse Oximetry 97 07/25/22 17:08 Oxygen Delivery Method Room Air 07/25/22 17:08 Oxygen Flow Rate 0 07/25/22 17:08
--- NOTE | 2022-07-25 17:28 | NUR.NOTE ---
Nursing Note: Referral faxed to PCP for hypertension in 7 to 10 days.
[2022-07-25] MEDS: Penicillin V POTASSIUM 500 MG TAB, 4 TABS/BTL PO (17:32)
--- NOTE | 2022-07-30 16:59 | NUR.NOTE ---
Nursing Note: 1700 Patient called stating that she picked up the antibiotic but is unable to find it. Per Dr Israel I called the prescription in to [facility] in [place] to be filled again. Patient is aware and will pick it up tomorrow.
== END 2022-07-25 17:29 | disposition home or self-care (01) ==
PROVIDERS: Emergency Provider Emergency Medicine
DX: K08.89 Other specified disorders of teeth and supporting structures (principal); K04.7 Periapical abscess without sinus
CPT/HCPCS: 99283; 99284

== ENCOUNTER 2022-08-09 18:00 | Outpatient (REF) | payer SELFPAY ==
[2022-08-09 19:53] LABS: HCT 44.4 % (36.0-46.0); HGB 15.5 g/dL (11.2-15.7); MCH 30.5 pg (27.0-33.0); MCHC 34.9 % (32.0-36.0); MCV 87 fL (80-95); MPV 12.4 fL (8.0-11.0); Platelet Count 315 10^3/uL (130-400); RBC 5.09 10^6/uL (3.93-5.22); RDW 11.4 % (11.7-14.6); RDW-SD 36.7 fL; WBC 8.23 10^3/uL (4.4-10.8)
[2022-08-09 20:02] LABS: ALT 45 U/L (14-59); AST 30 U/L (15-37); Albumin 4.1 g/dL (3.4-5.0); Alkaline Phosphatase 146 U/L (46-116); Anion Gap 8.7 mmol/L (3-11); BUN 15 mg/dL (7-18); Bilirubin, Total 0.3 mg/dL (0.2-1.0); CO2 26.3 mmol/L (21.0-32.0); CREATININE 0.7 mg/dL (0.55-1.02); Calculated LDL 118 mg/dL (<100); Chloride 104 mmol/L (98-107); Cholesterol 232 mg/dL (<200); Estimated GFR 100.19 (mL/min/1.73m2); Glucose 238 mg/dL (74-106); HDL Cholesterol 79 mg/dL (40-60); Potassium 3.8 mmol/L (3.5-5.1); Sodium 139 mmol/L (136-145); Total Protein 7.6 g/dL (6.4-8.2); Triglyceride 175 mg/dL (<150)
[2022-08-09 20:03] LABS: COMMENT (LAB VIEW ONLY) 56.15 mg/dL; Microalb ug/mg Crea 44.9 ug/mg Cr
[2022-08-10 14:56] LABS: Hemoglobin A1C 8.9 % (<5.7)
== END 2022-08-09 18:01 | disposition home or self-care (01) ==
LOC: NCHCN 18:00
PROVIDERS: Visit Provider Nurse Practitioner Family
DX: E11.9 Type 2 diabetes mellitus without complications (principal); I10 Essential (primary) hypertension
CPT/HCPCS: 80053; 80061; 85027; 82043; 82570; 83036

== ENCOUNTER 2023-01-26 15:10 | Emergency (ER) | payer SELFPAY ==
[2023-01-26 15:12] VITALS: BP 210/103; PULSE 99; RESP 16; TEMP 36.8; O2SAT 99
--- NOTE | 2023-01-26 15:47 | ED.GENADUL_ITS ---
Discharge Plan Disposition Patient Disposition: Home Condition: Improving Discharge Details Clinical Impression: Rash, Hypertension Primary Care Provider: None,None ED Provider: Jorge Rothman Home Meds and New Rx's Prescriptions: New hydrochlorothiazide 25 mg tablet 25 mg PO DAILY Qty: 30 1RF lisinopril 20 mg tablet 20 mg PO DAILY Qty: 30 1RF No Action atorvastatin [Lipitor] 40 mg tablet 40 mg PO QPM Patient Comments: pt states not taking any of her meds because she cant see her PCP lidocaine 5 % adhesive patch,medicated 1 patch topical Q24H Qty: 10 0RF Patient Comments: pt states not taking any of her meds because she cant see her PCP Rx Instructions: leave on most painful area for up to 12 hrs metoprolol succinate 50 mg tablet extended release 24 hr 50 mg PO DAILY Rx Instructions: pt states not taking any of her meds because she cant see her PCP hydrochlorothiazide 25 mg tablet 25 mg PO DAILY Patient Comments: pt states not taking any of her meds because she cant see her PCP polyethylene glycol 3350 [Miralax] 17 gram/dose powder 17 gm PO DAILY Rx Instructions: pt states not taking any of her meds because she cant see her PCP albuterol sulfate [ProAir HFA] 90 mcg/actuation HFA aerosol inhaler 2 puff IH Q6H PRN Patient Comments: pt states not taking any of her meds because she cant see her PCP insulin glargine [Basaglar KwikPen U-100 Insulin] 100 unit/mL (3 mL) insulin pen 26 unit subcut HS Patient Comments: pt states not taking any of her meds because she cant see her PCP fluticasone propionate [Children's Flonase Allergy Rlf] 50 mcg/actuation spray,suspension 1 spray intranasal DAILY Patient Comments: pt states not taking any of her meds because she cant see her PCP Rx Instructions: administer into each nostril metformin 500 mg tablet 1,000 mg PO BID Qty: 0 0RF Rx Instructions: pt states not taking any of her meds because she cant see her PCP omeprazole 40 mg capsule,delayed release(DR/EC) 40 mg PO DAILY Rx Instructions: pt states not taking any of her meds because she cant see her PCP melatonin 10 mg capsule 10 mg PO HS PRN Rx Instructions: pt states not taking any of her meds because she cant see her PCP meclizine 25 mg tablet 25 mg PO TID PRN (Reason: dizziness) Qty: 10 0RF Rx Instructions: pt states not taking any of her meds because she cant see her PCP benzonatate 100 mg capsule 100 mg PO TID PRN (Reason: cough) Qty: 10 0RF Patient Comments: pt states not taking any of her meds because she cant see her PCP fluticasone propionate [Flonase Allergy Relief] 50 mcg/actuation spray,suspension 1 spray intranasal DAILY Qty: 16 0RF Patient Comments: pt states not taking any of her meds because she cant see her PCP Rx Instructions: administer into each nostril fluconazole [Diflucan] 150 mg tablet 150 mg PO ONCE Qty: 1 0RF Patient Comments: pt states not taking any of her meds because she cant see her PCP Rx Instructions: as a single dose, if needed hydrocodone-acetaminophen 5-325 mg tablet 1 tab PO BID PRN (Reason: pain) Qty: 7 0RF Patient Comments: pt states not taking any of her meds because she cant see her PCP aspirin 81 mg Tablet,Delayed Release (Dr/Ec) 81 mg PO DAILY Qty: 30 0RF Patient Comments: pt states not taking any of her meds because she cant see her PCP acetaminophen [Tylenol] 325 mg Tablet 650 mg PO Q4H PRN PRNQty: 0 0RF Patient Comments: pt states not taking any of her meds because she cant see her PCP lisinopril 20 MG tablet 20 mg PO DAILY Qty: 30 0RF Patient Comments: non-compliant with regiment Rx Instructions: pt states not taking any of her meds because she cant see her PCP amlodipine 10 mg Tablet 10 mg PO DAILY Qty: 30 0RF Patient Comments: pt states not taking any of her meds because she cant see her PCP ibuprofen [Ibuprofen IB] 200 mg Tablet 400 mg PO QID PRNQty: 0 0RF Patient Comments: pt states not taking any of her meds because she cant see her PCP atenolol 50 MG tablet 50 mg PO DAILY Qty: 30 0RF Patient Comments: pt states not taking any of her meds because she cant see her PCP zolpidem [Ambien] 5 mg tablet 5 mg PO HS PRN Patient Comments: Take 1 tablet by mouth every night as needed Rx Instructions: pt states not taking any of her meds because she cant see her PCP Discharge Instructions Instructions: Acute Rash (ED), Hypertension (ED) Additional Instructions: Please follow-up with primary care referral. Take medication as prescribed Stand Alone Forms: Work Release Medical Decision Making 57-year-old female presents with diffuse papular rash involving bilateral lower extremities from level of ankle to thighs a few scattered lesions on the umbilicus and right elbow with the right elbow lesion having a pustular component, no other areas of vesicles or pustules, no crusting, no purpura petechia although the papules have a dark pink appearance; no involvement of oral or ocular mucosa. Patient describes the rash as very itchy. Noted to be borderline tachycardic and hypertensive likely related to discomfort. Patient is nonmeningeal afebrile nontoxic. Consider exposure to environmental antigens versus heat rash versus less likely measles or varicella low suspicion for herpes infection given no vesicular or pustule lesions, low suspicion for ITP or TTP given lesions do not appear to be petechial or purpuric and are very well localized to bilateral lower extremities in a discrete pattern, also consider folliculitis however again no pustules noted and patient endorses only infrequent shaving. Will obtain basic labs to assess platelet count liver function PT/INR PTT, will send tick panel. Will trial dexamethasone and Benadryl likely home with close follow-up and return precautions 17: 36 patient feeling better after meds. Platelets and coagulation panel normal. No systemic or laboratory signs of infection. Home care instructions and return precautions given. Patient requesting advice regarding her chronic hypertension she has not been taking the 4 antihypertensives that she has been prescribed I counseled her that they could start would be to begin again with her lisinopril and HCTZ, she is in need of a new primary care physician we will provide follow-up. HPI General Date/Time Provider Initiated Documentation: 01/26/23 15:32 . 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 Since then has noted this rash on her lower extremities. No ocular oral lesions. No fevers no chills no nausea no vomiting. No trouble breathing no chest pain. No recent travel Related Data Home Medications Medication Instructions Recorded Confirmed acetaminophen 325 mg tablet 650 mg PO Q4H PRN PRN #0 tabs 11/29/18 07/25/22 (Tylenol) amlodipine 10 mg tablet 10 mg PO DAILY #30 tabs 11/29/18 07/25/22 aspirin 81 mg tablet,delayed 81 mg PO DAILY #30 tabs 11/29/18 07/25/22 release atenolol 50 mg tablet 50 mg PO DAILY #30 tabs 11/29/18 07/25/22 ibuprofen 200 mg tablet (Ibuprofen 400 mg PO QID PRN #0 tabs 11/29/18 07/25/22 IB) lisinopril 20 mg tablet 20 mg PO DAILY #30 tabs 11/29/18 07/25/22 meclizine 25 mg tablet 25 mg PO TID PRN dizziness #10 tabs 01/25/19 07/25/22 metoprolol succinate 50 mg 50 mg PO DAILY 07/10/19 07/25/22 tablet,extended release 24 hr atorvastatin 40 mg tablet (Lipitor) 40 mg PO QPM 07/29/19 07/25/22 hydrochlorothiazide 25 mg tablet 25 mg PO DAILY 07/29/19 07/25/22 albuterol sulfate 90 mcg/actuation 2 puff inhalation Q6H PRN 01/09/20 07/25/22 aerosol inhaler (ProAir HFA) polyethylene glycol 3350 17 17 gm PO DAILY 01/09/20 07/25/22 gram/dose oral powder (Miralax) fluticasone propionate 50 1 spray intranasal DAILY 04/30/20 07/25/22 mcg/actuation nasal spray,suspension (Children's Flonase Allergy Relief) insulin glargine 100 unit/mL (3 26 unit subcut HS 04/30/20 07/25/22 mL) subcutaneous pen (Basaglar KwberenicePen U-100 Insulin) melatonin 10 mg capsule 10 mg PO HS PRN 12/10/20 07/25/22 metformin 500 mg tablet 1,000 mg PO BID #0 tabs 12/10/20 07/25/22 omeprazole 40 mg capsule,delayed 40 mg PO DAILY 12/10/20 07/25/22 release zolpidem 5 mg tablet (Ambien) 5 mg PO HS PRN 12/19/20 07/25/22 lidocaine 5 % topical patch 1 patch topical Q24H Lumbago #10 ea 06/01/21 07/25/22 benzonatate 100 mg capsule 100 mg PO TID PRN cough #10 caps 11/22/21 07/25/22 fluticasone propionate 50 1 spray intranasal DAILY #16 grams 11/22/21 07/25/22 mcg/actuation nasal spray,suspension (Flonase Allergy Relief) fluconazole 150 mg tablet 150 mg PO ONCE #1 tab 01/25/22 07/25/22 (Diflucan) hydrocodone 5 mg-acetaminophen 325 1 tab PO BID PRN pain #7 tabs 07/25/22 mg tablet hydrochlorothiazide 25 mg tablet 25 mg PO DAILY #30 tabs 01/26/23 lisinopril 20 mg tablet 20 mg PO DAILY #30 tabs 01/26/23 Previous Rx's Medication Instructions Recorded acetaminophen 325 mg tablet 650 mg PO Q4H PRN PRN #0 tabs 11/29/18 (Tylenol) amlodipine 10 mg tablet 10 mg PO DAILY #30 tabs 11/29/18 aspirin 81 mg tablet,delayed 81 mg PO DAILY #30 tabs 11/29/18 release atenolol 50 mg tablet 50 mg PO DAILY #30 tabs 11/29/18 ibuprofen 200 mg tablet (Ibuprofen 400 mg PO QID PRN #0 tabs 11/29/18 IB) lisinopril 20 mg tablet 20 mg PO DAILY #30 tabs 11/29/18 meclizine 25 mg tablet 25 mg PO TID PRN dizziness #10 tabs 01/25/19 metformin 500 mg tablet 1,000 mg PO BID #0 tabs 12/10/20 lidocaine 5 % topical patch 1 patch topical Q24H Lumbago #10 ea 06/01/21 benzonatate 100 mg capsule 100 mg PO TID PRN cough #10 caps 11/22/21 fluticasone propionate 50 1 spray intranasal DAILY #16 grams 11/22/21 mcg/actuation nasal spray,suspension (Flonase Allergy Relief) fluconazole 150 mg tablet 150 mg PO ONCE #1 tab 01/25/22 (Diflucan) hydrocodone 5 mg-acetaminophen 325 1 tab PO BID PRN pain #7 tabs 07/25/22 mg tablet hydrochlorothiazide 25 mg tablet 25 mg PO DAILY #30 tabs 01/26/23 lisinopril 20 mg tablet 20 mg PO DAILY #30 tabs 01/26/23 Allergies Allergy/AdvReac Type Severity Reaction Status Date / Time Sulfa (Sulfonamide Allergy Hives Verified 01/26/23 15:17 Antibiotics) General Stated Complaint: RashLesion NELSY: 4 Review of Systems Narrative: Review of Systems Constitutional: negative Eyes: negative ENT: negative Cardiovascular: negative Respiratory: negative Gastrointestinal: negative : negative Musculoskeletal: negative Skin: Rash Neurologic: negative Psych: negative PFSH All Active Problems (Updated 01/26/23 @ 17:37 by Jorge Rothman MD) Rash (Acute) Hypertension (Chronic) Lumbago without sciatica (Acute) CAP (community acquired pneumonia) (Acute) Apnea (Acute) Non compliance w medication regimen (Acute) Screening for colon cancer (Acute) GERD (gastroesophageal reflux disease) (Chronic) Type 2 diabetes mellitus (Acute) Constipation (Acute) Erythema multiforme (Acute) Chronic headaches (Acute) Sleeping difficulties (Acute) Benign paroxysmal vertigo (Acute) Arm numbness (Acute) Bilateral carpal tunnel syndrome (Acute) Pulmonary hypertension (Chronic) Diastolic dysfunction (Chronic) Atypical chest pain (Chronic) Herniated nucleus pulposus, C5-6 right (Acute) Diabetes mellitus type 2 in obese (Chronic) Essential hypertension (Chronic) Hypertensive urgency (Acute) Medical History BPPV (benign paroxysmal positional vertigo) Complicated grief Diabetes mellitus Early satiety Herpes simplex History of depression Hypertension Insomnia Obesity Surgical History History of tubal ligation Family History Mother Heart disease Ovarian cancer Social History Smoking/Tobacco Use Status: Never Smoking risk assessment performed?: Yes Alcohol Intake: current Alcohol Intake frequency: holidays/special occasions only Drug use: Never Substance use type: does not use Household members: spouse Housing: house Number of Children: 5 What is your relationship status?: Panel score (0-1 are the most socially isolated patients): 1 Seatbelt use: always Do you feel safe at home: Yes Do you feel safe in your relationship?: Yes History History 6 Para 5 Hx # Term Pregnancies Multiple births Hx # Pregnancies Ectopic pregnancies AB induced Hx Number of Living Children AB spontaneous Exam Narrative Exam Narrative: Physical Examination General: alert, awake, cooperative, resting comfortably, no acute distress HEENT: normocephalic, atraumatic; PERRL, EOM intact, conjunctiva normal; no nasal discharge; moist mucous membranes, oral and pharyngeal mucosa normal, tolerating secretions Neck: supple, trachea midline; full ROM Chest: normal to inspection Respiratory: normal respiratory effort, speaking in full sentences Skin: Papular rash dark pink in color localized to bilateral lower extremities from ankles to thighs 1 or 2 lesions involving the umbilicus and skin overlying right olecranon, of note the lesion over the right elbow is a pustule no other pustules scabs or crusting noted, no oral lesions no ocular lesions, no involvement of the soles of the hands of the feet in fact no involvement of the dorsal aspect of other the feet of the hands as well Neuro: AAOx3, normal speech, moving all extremities Extremities: No peripheral edema Psych: Appropriate mood and affect Course Vital Signs Vital signs: Vital Signs Temperature 36.8 C 01/26/23 15:12 Pulse 99 H 01/26/23 15:12 Respiratory Rate 16 01/26/23 15:12 Blood Pressure 210/103 H 01/26/23 15:12 Pulse Oximetry 99 01/26/23 15:12 Temperature 36.8 C 01/26/23 15:12 Temperature Source Skin 01/26/23 15:12 Pulse 99 H 01/26/23 15:12 Respiratory Rate 16 01/26/23 15:12 Blood Pressure 210/103 H 01/26/23 15:12 Blood Pressure Position Sitting 01/26/23 15:12 Pulse Oximetry 99 01/26/23 15:12 Oxygen Delivery Method Room Air 01/26/23 15:12 Oxygen Flow Rate 0 01/26/23 15:12 Pain Level 6 01/26/23 15:12
[2023-01-26] MEDS: Dexamethasone 10 MG/ML VIAL IVP (16:01)
[2023-01-26] MEDS: diphenhydrAMINE 50 MG/ML VIAL 25 MG IVP (16:02)
[2023-01-26 16:11] LABS: Abs Immature Grans 0.03 10^3/uL (0.0-0.06); Absolute Basophil Count 0.07 10^3/uL (0.0-0.2); Absolute Eosinophil Count 0.24 10^3/uL (0.0-0.7); Absolute Lymphocyte Count 2.51 10^3/uL (1.2-3.4); Absolute Monocyte Count 0.61 10^3/uL (0.1-0.8); Absolute Neutrophil Count 4.92 10^3/uL (1.2-6.7); Basophils % 0.8; Eosinophils % 2.9; HCT 45.1 % (36.0-46.0); HGB 15.9 g/dL (11.2-15.7); Immature Grans % 0.4; MCH 30.3 pg (27.0-33.0); MCHC 35.3 % (32.0-36.0); MCV 86 fL (80-95); MPV 11.2 fL (8.0-11.0); Monocytes % 7.3; Neutrophils % 58.6; Platelet Count 319 10^3/uL (130-400); RBC 5.24 10^6/uL (3.93-5.22); RDW 11.4 % (11.7-14.6); RDW-SD 36.2 fL; WBC 8.38 10^3/uL (4.4-10.8)
[2023-01-26 16:27] LABS: ALT 39 U/L (14-59); AST 15 U/L (15-37); Alkaline Phosphatase 227 U/L (46-116); Anion Gap 10.1 mmol/L (3-11); BUN 10 mg/dL (7-18); Bilirubin, Total 0.5 mg/dL (0.2-1.0); CO2 29.9 mmol/L (21.0-32.0); CREATININE 0.8 mg/dL (0.55-1.02); Calcium 9.5 mg/dL (8.5-10.1); Chloride 102 mmol/L (98-107); Estimated GFR 85.35 (mL/min/1.73m2); Glucose 327 mg/dL (74-106); Potassium 3.6 mmol/L (3.5-5.1); Sodium 142 mmol/L (136-145); Total Protein 7.8 g/dL (6.4-8.2)
[2023-01-26 17:06] LABS: INR 0.9 (0.9-1.1); PTT Activated 23.2 sec (21.5-31.9); Prothrombin Time 9.6 sec (9.3-11.0)
--- NOTE | 2023-01-26 17:37 | NUR.NOTE ---
Nursing Note: PT needs to establish care with PCP for follow up next week for chronic hypertension. Yessenia, ED
[2023-01-29 11:57] LABS: Lyme Ab w Rflx to Lyme Confirm Negative (Negative)
--- NOTE | 2023-01-30 08:52 | PDOC.CMACT ---
Date of service: 01/30/23 Time of Service: 08:52 Care Management Activity Note Activity Note Text Activity Note Text: Martha is seen in the ED for hypertension and a rash. CM receives a request from ED provider to help patient establish with a PCP but a review of her chart reveals she is already established with a PCP at [facility]. CM telephones the [facility] and is advised that patient is assigned to COOKIE Mendosa. CM then contacts [facility] and requests that patient's PCP be updated in the chart. CM also faxes ED Visit Note to the [facility] and requests that a follow up appointment be scheduled for patient.
[2023-01-30 15:13] LABS: Anaplasma phagocytophilum Negative (Negative); B. miyamotoi PCR Negative (Negative); Babesia divergens/MO-1 Negative (Negative); Babesia duncani Negative (Negative); Babesia microti Negative (Negative); Ehrlichia chaffeensis Negative (Negative); Ehrlichia ewingii/canis Negative (Negative); Ehrlichia muris eauclairensis Negative (Negative)
== END 2023-01-26 18:35 | disposition home or self-care (01) ==
PROVIDERS: Emergency Provider Emergency Medicine
DX: R21 Rash and other nonspecific skin eruption (principal); I10 Essential (primary) hypertension
CPT/HCPCS: 80053; 87798; 96374; 96375; 99284; 85025; 85610; 85730; 86618; J1100; J1200

== ENCOUNTER 2023-03-06 22:05 | Emergency (ER) | payer SELFPAY ==
[2023-03-06 22:08] VITALS: BP 229/93; PULSE 78; RESP 18; TEMP 36.6; O2SAT 98
--- NOTE | 2023-03-06 22:37 | W.ED.GENAD ---
Discharge Plan Disposition Patient Disposition: Home Condition: Stable Discharge Details Clinical Impression: Eanyanetboone Primary Care Provider: Unknown,Unknown ED Provider: Jorge Rothman Home Meds and New Rx's Prescriptions: New cephalexin 500 mg capsule 500 mg PO TID 5 Days Qty: 15 0RF No Action atorvastatin [Lipitor] 40 mg tablet 40 mg PO QPM Patient Comments: pt states not taking any of her meds because she cant see her PCP lidocaine 5 % adhesive patch,medicated 1 patch topical Q24H Qty: 10 0RF Patient Comments: pt states not taking any of her meds because she cant see her PCP Rx Instructions: leave on most painful area for up to 12 hrs metoprolol succinate 50 mg tablet extended release 24 hr 50 mg PO DAILY Rx Instructions: pt states not taking any of her meds because she cant see her PCP hydrochlorothiazide 25 mg tablet 25 mg PO DAILY Patient Comments: pt states not taking any of her meds because she cant see her PCP polyethylene glycol 3350 [Miralax] 17 gram/dose powder 17 gm PO DAILY Rx Instructions: pt states not taking any of her meds because she cant see her PCP albuterol sulfate [ProAir HFA] 90 mcg/actuation HFA aerosol inhaler 2 puff IH Q6H PRN Patient Comments: pt states not taking any of her meds because she cant see her PCP insulin glargine [Basaglar KwikPen U-100 Insulin] 100 unit/mL (3 mL) insulin pen 26 unit subcut HS Patient Comments: pt states not taking any of her meds because she cant see her PCP fluticasone propionate [Children's Flonase Allergy Rlf] 50 mcg/actuation spray,suspension 1 spray intranasal DAILY Patient Comments: pt states not taking any of her meds because she cant see her PCP Rx Instructions: administer into each nostril metformin 500 mg tablet 1,000 mg PO BID Qty: 0 0RF Rx Instructions: pt states not taking any of her meds because she cant see her PCP omeprazole 40 mg capsule,delayed release(DR/EC) 40 mg PO DAILY Rx Instructions: pt states not taking any of her meds because she cant see her PCP melatonin 10 mg capsule 10 mg PO HS PRN Rx Instructions: pt states not taking any of her meds because she cant see her PCP meclizine 25 mg tablet 25 mg PO TID PRN (Reason: dizziness) Qty: 10 0RF Rx Instructions: pt states not taking any of her meds because she cant see her PCP benzonatate 100 mg capsule 100 mg PO TID PRN (Reason: cough) Qty: 10 0RF Patient Comments: pt states not taking any of her meds because she cant see her PCP fluticasone propionate [Flonase Allergy Relief] 50 mcg/actuation spray,suspension 1 spray intranasal DAILY Qty: 16 0RF Patient Comments: pt states not taking any of her meds because she cant see her PCP Rx Instructions: administer into each nostril fluconazole [Diflucan] 150 mg tablet 150 mg PO ONCE Qty: 1 0RF Patient Comments: pt states not taking any of her meds because she cant see her PCP Rx Instructions: as a single dose, if needed hydrocodone-acetaminophen 5-325 mg tablet 1 tab PO BID PRN (Reason: pain) Qty: 7 0RF Patient Comments: pt states not taking any of her meds because she cant see her PCP aspirin 81 mg Tablet,Delayed Release (Dr/Ec) 81 mg PO DAILY Qty: 30 0RF Patient Comments: pt states not taking any of her meds because she cant see her PCP acetaminophen [Tylenol] 325 mg Tablet 650 mg PO Q4H PRN PRNQty: 0 0RF Patient Comments: pt states not taking any of her meds because she cant see her PCP lisinopril 20 MG tablet 20 mg PO DAILY Qty: 30 0RF Patient Comments: non-compliant with regiment Rx Instructions: pt states not taking any of her meds because she cant see her PCP amlodipine 10 mg Tablet 10 mg PO DAILY Qty: 30 0RF Patient Comments: pt states not taking any of her meds because she cant see her PCP ibuprofen [Ibuprofen IB] 200 mg Tablet 400 mg PO QID PRNQty: 0 0RF Patient Comments: pt states not taking any of her meds because she cant see her PCP atenolol 50 MG tablet 50 mg PO DAILY Qty: 30 0RF Patient Comments: pt states not taking any of her meds because she cant see her PCP zolpidem [Ambien] 5 mg tablet 5 mg PO HS PRN Patient Comments: Take 1 tablet by mouth every night as needed Rx Instructions: pt states not taking any of her meds because she cant see her PCP hydrochlorothiazide 25 mg tablet 25 mg PO DAILY Qty: 30 1RF lisinopril 20 mg tablet 20 mg PO DAILY Qty: 30 1RF Discharge Instructions Instructions: Mehdi (ED) Additional Instructions: Please continue with warm compresses to eye take antibiotics as prescribed. Return to emergency department for any worsening symptoms Medical Decision Making 58-year-old female presents with painful upper eyelid, evidence of likely stye medial upper eyelid, some surrounding induration and erythema, afebrile nontoxic. No proptosis, extraocular motion intact, conjunctiva normal. No contact lens wearing. No signs of trauma. Given diabetic patient will start Keflex counseled patient to continue with warm compresses given strict return precautions for worsening symptoms. HPI General Date/Time Provider Initiated Documentation: 03/06/23 22:12. HPI Narrative: 58-year-old female presents with swelling to right eyelid over the last day, patient is a diabetic, painful area with increased tearing Related Data Home Medications Medication Instructions Recorded Confirmed acetaminophen 325 mg tablet 650 mg PO Q4H PRN PRN #0 tabs 11/29/18 07/25/22 (Tylenol) amlodipine 10 mg tablet 10 mg PO DAILY #30 tabs 11/29/18 07/25/22 aspirin 81 mg tablet,delayed 81 mg PO DAILY #30 tabs 11/29/18 07/25/22 release atenolol 50 mg tablet 50 mg PO DAILY #30 tabs 11/29/18 07/25/22 ibuprofen 200 mg tablet (Ibuprofen 400 mg PO QID PRN #0 tabs 11/29/18 07/25/22 IB) lisinopril 20 mg tablet 20 mg PO DAILY #30 tabs 11/29/18 07/25/22 meclizine 25 mg tablet 25 mg PO TID PRN dizziness #10 tabs 01/25/19 07/25/22 metoprolol succinate 50 mg 50 mg PO DAILY 07/10/19 07/25/22 tablet,extended release 24 hr atorvastatin 40 mg tablet (Lipitor) 40 mg PO QPM 07/29/19 07/25/22 hydrochlorothiazide 25 mg tablet 25 mg PO DAILY 07/29/19 07/25/22 albuterol sulfate 90 mcg/actuation 2 puff inhalation Q6H PRN 06/19/20 01/03/23 aerosol inhaler (ProAir HFA) polyethylene glycol 3350 17 17 gm PO DAILY 01/09/20 07/25/22 gram/dose oral powder (Miralax) fluticasone propionate 50 1 spray intranasal DAILY 04/30/20 07/25/22 mcg/actuation nasal spray,suspension (Children's Flonase Allergy Relief) insulin glargine 100 unit/mL (3 26 unit subcut HS 04/30/20 07/25/22 mL) subcutaneous pen (Basaglar KwikPen U-100 Insulin) melatonin 10 mg capsule 10 mg PO HS PRN 12/10/20 07/25/22 metformin 500 mg tablet 1,000 mg PO BID #0 tabs 12/10/20 07/25/22 omeprazole 40 mg capsule,delayed 40 mg PO DAILY 12/10/20 07/25/22 release zolpidem 5 mg tablet (Ambien) 5 mg PO HS PRN 12/19/20 07/25/22 lidocaine 5 % topical patch 1 patch topical Q24H Lumbago #10 ea 06/01/21 07/25/22 benzonatate 100 mg capsule 100 mg PO TID PRN cough #10 caps 11/22/21 07/25/22 fluticasone propionate 50 1 spray intranasal DAILY #16 grams 11/22/21 07/25/22 mcg/actuation nasal spray,suspension (Flonase Allergy Relief) fluconazole 150 mg tablet 150 mg PO ONCE #1 tab 01/25/22 07/25/22 (Diflucan) hydrocodone 5 mg-acetaminophen 325 1 tab PO BID PRN pain #7 tabs 07/25/22 mg tablet hydrochlorothiazide 25 mg tablet 25 mg PO DAILY #30 tabs 01/26/23 lisinopril 20 mg tablet 20 mg PO DAILY #30 tabs 01/26/23 cephalexin 500 mg capsule 500 mg PO TID 5 days #15 caps 03/06/23 Previous Rx's Medication Instructions Recorded acetaminophen 325 mg tablet 650 mg PO Q4H PRN PRN #0 tabs 11/29/18 (Tylenol) amlodipine 10 mg tablet 10 mg PO DAILY #30 tabs 11/29/18 aspirin 81 mg tablet,delayed 81 mg PO DAILY #30 tabs 11/29/18 release atenolol 50 mg tablet 50 mg PO DAILY #30 tabs 11/29/18 ibuprofen 200 mg tablet (Ibuprofen 400 mg PO QID PRN #0 tabs 11/29/18 IB) lisinopril 20 mg tablet 20 mg PO DAILY #30 tabs 11/29/18 meclizine 25 mg tablet 25 mg PO TID PRN dizziness #10 tabs 01/25/19 metformin 500 mg tablet 1,000 mg PO BID #0 tabs 12/10/20 lidocaine 5 % topical patch 1 patch topical Q24H Lumbago #10 ea 06/01/21 benzonatate 100 mg capsule 100 mg PO TID PRN cough #10 caps 11/22/21 fluticasone propionate 50 1 spray intranasal DAILY #16 grams 11/22/21 mcg/actuation nasal spray,suspension (Flonase Allergy Relief) fluconazole 150 mg tablet 150 mg PO ONCE #1 tab 01/25/22 (Diflucan) hydrocodone 5 mg-acetaminophen 325 1 tab PO BID PRN pain #7 tabs 07/25/22 mg tablet hydrochlorothiazide 25 mg tablet 25 mg PO DAILY #30 tabs 01/26/23 lisinopril 20 mg tablet 20 mg PO DAILY #30 tabs 01/26/23 cephalexin 500 mg capsule 500 mg PO TID 5 days #15 caps 03/06/23 Allergies Allergy/AdvReac Type Severity Reaction Status Date / Time Sulfa (Sulfonamide Allergy Hives Verified 03/06/23 22:15 Antibiotics) General Stated Complaint: EyeProblem NELSY: 4 Review of Systems Narrative: Review of Systems Constitutional: negative Eyes: Eyelid swelling ENT: negative Cardiovascular: negative Respiratory: negative Gastrointestinal: negative : negative Musculoskeletal: negative Skin: negative Neurologic: negative Psych: negative PFSH All Active Problems (Updated 03/06/23 @ 22:42 by Jorge Rothman MD) Hordeolum (Acute) Lumbago without sciatica (Acute) CAP (community acquired pneumonia) (Acute) Apnea (Acute) Non compliance w medication regimen (Acute) Screening for colon cancer (Acute) GERD (gastroesophageal reflux disease) (Chronic) Type 2 diabetes mellitus (Acute) Constipation (Acute) Erythema multiforme (Acute) Chronic headaches (Acute) Sleeping difficulties (Acute) Benign paroxysmal vertigo (Acute) Arm numbness (Acute) Bilateral carpal tunnel syndrome (Acute) Pulmonary hypertension (Chronic) Diastolic dysfunction (Chronic) Atypical chest pain (Chronic) Herniated nucleus pulposus, C5-6 right (Acute) Diabetes mellitus type 2 in obese (Chronic) Essential hypertension (Chronic) Hypertensive urgency (Acute) Medical History BPPV (benign paroxysmal positional vertigo) Complicated grief Diabetes mellitus Early satiety Herpes simplex History of depression Hypertension Insomnia Obesity Surgical History History of tubal ligation Family History Mother Heart disease Ovarian cancer Social History Smoking/Tobacco Use Status: Never Smoking risk assessment performed?: Yes Alcohol Intake: current Alcohol Intake frequency: holidays/special occasions only Drug use: Never Substance use type: does not use Household members: spouse Housing: house Number of Children: 5 What is your relationship status?: Panel score (0-1 are the most socially isolated patients): 1 Seatbelt use: always Do you feel safe at home: Yes Do you feel safe in your relationship?: Yes History History 6 Para 5 Hx # Term Pregnancies Multiple births Hx # Pregnancies Ectopic pregnancies AB induced Hx Number of Living Children AB spontaneous Exam Narrative Exam Narrative: Physical Examination General: alert, awake, cooperative, resting comfortably, no acute distress HEENT: normocephalic, atraumatic; PERRL, EOM intact, conjunctiva normal; stye to medial upper lid; some erythema and induration to surrounding upper lid; no proptosis; no nasal discharge; moist mucous membranes, oral and pharyngeal mucosa normal, tolerating secretions Neck: supple, trachea midline; full ROM Chest: normal to inspection Course Vital Signs Vital signs: Vital Signs Temperature 36.6 C 03/06/23 22:08 Pulse 78 03/06/23 22:08 Respiratory Rate 18 03/06/23 22:08 Blood Pressure 229/93 H 03/06/23 22:08 Pulse Oximetry 98 03/06/23 22:08 Temperature 36.6 C 03/06/23 22:08 Temperature Source Skin 03/06/23 22:08 Pulse 78 03/06/23 22:08 Respiratory Rate 18 03/06/23 22:08 Respiratory Effort Normal 08/15/23 22:12 Blood Pressure 229/93 H 03/06/23 22:08 Blood Pressure Position Sitting 03/06/23 22:08 Pulse Oximetry 98 03/06/23 22:08 Oxygen Delivery Method Room Air 03/06/23 22:08 Oxygen Flow Rate 0 03/06/23 22:08
[2023-03-06] MEDS: Cephalexin 500 MG CAP PO (22:45)
--- NOTE | 2023-03-07 11:27 | NUR.NOTE ---
Nursing Note:in chart after pt called and asked about eye drops
== END 2023-03-06 22:53 | disposition home or self-care (01) ==
PROVIDERS: Emergency Provider Emergency Medicine
DX: H00.011 Hordeolum externum right upper eyelid (principal)
CPT/HCPCS: 99283; 99284

== ENCOUNTER 2023-04-21 19:32 | Emergency (ER) | payer SELFPAY ==
[2023-04-21 19:47] VITALS: BP 217/135; PULSE 90; RESP 16; TEMP 37.2; O2SAT 99
[2023-04-21 21:05] LABS: Abs Immature Grans 0.02 10^3/uL (0.0-0.06); Absolute Basophil Count 0.05 10^3/uL (0.0-0.2); Absolute Lymphocyte Count 3.05 10^3/uL (1.2-3.4); Absolute Monocyte Count 0.48 10^3/uL (0.1-0.8); Absolute Neutrophil Count 3.24 10^3/uL (1.2-6.7); Basophils % 0.7; Eosinophils % 2.8; HCT 44.2 % (36.0-46.0); HGB 15.7 g/dL (11.2-15.7); Immature Grans % 0.3; Lymphocytes % 43.3; MCH 30.5 pg (27.0-33.0); MCHC 35.5 % (32.0-36.0); MCV 86 fL (80-95); MPV 10.6 fL (8.0-11.0); Monocytes % 6.8; Neutrophils % 46.1; Platelet Count 348 10^3/uL (130-400); RBC 5.15 10^6/uL (3.93-5.22); RDW 11.3 % (11.7-14.6); RDW-SD 35.5 fL; WBC 7.04 10^3/uL (4.4-10.8)
--- NOTE | 2023-04-21 21:14 | DI.RAD_ITS ---
Exam(s) XR CHEST 2V PA LATERAL EXAM: XR CHEST 2V PA LATERAL CLINICAL HISTORY: ? pneumonia, URI. TECHNIQUE: 2D digital imaging was performed. COMPARISON: CR,XR XR CHEST 2V PA LATERAL from 11/22/2021 FINDINGS: 2 views: Heart size is normal. The mediastinum is not widened. Lungs are clear. No infiltrates nor pleural effusions. IMPRESSION: No acute pulmonary findings. DATA REPOSITORY: RADIATION DOSE DELIVERED:
[2023-04-21] MEDS: hydroCHLOROthiazide 25 MG TAB PO (21:18)
[2023-04-21] MEDS: Atenolol 25 MG TAB PO (21:18)
[2023-04-21 21:23] LABS: ALT 32 U/L (14-59); AST 15 U/L (15-37); Albumin 3.6 g/dL (3.4-5.0); Alkaline Phosphatase 208 U/L (46-116); Anion Gap 9.1 mmol/L (3-11); BUN 14 mg/dL (7-18); Bilirubin, Total 0.3 mg/dL (0.2-1.0); CO2 26.9 mmol/L (21.0-32.0); CREATININE 0.7 mg/dL (0.55-1.02); Calcium 9.5 mg/dL (8.5-10.1); Chloride 102 mmol/L (98-107); Estimated GFR 99.57 (mL/min/1.73m2); Glucose 258 mg/dL (74-106); Potassium 3.3 mmol/L (3.5-5.1); Sodium 138 mmol/L (136-145); Total Protein 7.5 g/dL (6.4-8.2)
[2023-04-21 21:30] LABS: Bilirubin Negative (Negative); Blood Negative (Negative); Clarity Clear (Clear); Glucose 500 mg/dL (Negative); Ketones Negative (Negative); Leukocyte Esterase Negative (Negative); Nitrite Negative (Negative); Specific Gravity >= 1.030 (1.005-1.025); Urobilinogen 0.2 mg/dL (Up to 0.2); pH 5.5 (5-8)
--- NOTE | 2023-04-21 21:39 | DI.VRAD_ITS ---
PROCEDURE INFORMATION: Exam: XR Chest Exam date and time: 04/21/2023 9:11 PM Age: 58 years old Clinical indication: Other: Pneumonia, uri TECHNIQUE: Imaging protocol: Radiologic exam of the chest. Views: 2 views. COMPARISON: CR XR CHEST 2V PA LATERAL 11/22/2021 5:36 PM FINDINGS: Lungs: Unremarkable. No consolidation. Pleural spaces: Unremarkable. No pleural effusion. No pneumothorax. Heart/Mediastinum: Unremarkable. No cardiomegaly. Bones/joints: Unremarkable. IMPRESSION: No acute findings. Dictated and Authenticated by: Danisha Arce MD. Ordering:AUTUMN Galvez MD
[2023-04-21 21:40] LABS: Bacteria Negative HPF (Negative); C & S Indicated? No; Casts Negative LPF (Negative); Crystals Negative HPF (Negative); Epithelial Cells Few HPF (Negative); Mucus Negative (Negative); RBC 0-2 HPF (0-2)
[2023-04-21] MEDS: Inhaler, Assist Device 1 EACH MC (22:00)
[2023-04-21 22:20] VITALS: BP 201/116; PULSE 68; RESP 16; TEMP 37.2; O2SAT 99
[2023-04-21] MEDS: Ondansetron O.D.T. 4 MG TABEF, 3 TABS/BTL PO (22:20)
[2023-04-21] MEDS: Albuterol HFA 8 GM 60 PUFF INH IH (22:20)
--- NOTE | 2023-04-22 01:34 | NUR.NOTE ---
Pt placed on care management referral to speak with someone about insurance.
--- NOTE | 2023-04-22 18:38 | ED.GENADUL_ITS ---
Discharge Plan Disposition Patient Disposition: Home Discharge Details Clinical Impression: Nausea & vomiting, Hypertension, Bronchitis, Diabetes Primary Care Provider: None,None ED Provider: Melanie Hwang Home Meds and New Rx's Prescriptions: New metoprolol succinate 50 mg tablet extended release 24 hr 50 mg PO DAILY Qty: 30 0RF lisinopril 20 mg tablet 20 mg PO DAILY Qty: 30 0RF metformin 1,000 mg tablet 1,000 mg PO BID Qty: 60 0RF prednisone 20 mg tablet 40 mg PO ONCE Qty: 6 0RF Continued atorvastatin [Lipitor] 40 mg tablet 40 mg PO QPM Patient Comments: pt states not taking any of her meds because she cant see her PCP lidocaine 5 % adhesive patch,medicated 1 patch topical Q24H Qty: 10 0RF Patient Comments: pt states not taking any of her meds because she cant see her PCP Rx Instructions: leave on most painful area for up to 12 hrs metoprolol succinate 50 mg tablet extended release 24 hr 50 mg PO DAILY Rx Instructions: pt states not taking any of her meds because she cant see her PCP hydrochlorothiazide 25 mg tablet 25 mg PO DAILY Patient Comments: pt states not taking any of her meds because she cant see her PCP polyethylene glycol 3350 [Miralax] 17 gram/dose powder 17 gm PO DAILY Rx Instructions: pt states not taking any of her meds because she cant see her PCP albuterol sulfate [ProAir HFA] 90 mcg/actuation HFA aerosol inhaler 2 puff IH Q6H PRN Patient Comments: pt states not taking any of her meds because she cant see her PCP insulin glargine [Karliagldev Rivera U-100 Insulin] 100 unit/mL (3 mL) insulin pen 26 unit subcut HS Patient Comments: pt states not taking any of her meds because she cant see her PCP fluticasone propionate [Children's Flonase Allergy Rlf] 50 mcg/actuation spray,suspension 1 spray intranasal DAILY Patient Comments: pt states not taking any of her meds because she cant see her PCP Rx Instructions: administer into each nostril metformin 500 mg tablet 1,000 mg PO BID Qty: 0 0RF Rx Instructions: pt states not taking any of her meds because she cant see her PCP omeprazole 40 mg capsule,delayed release(DR/EC) 40 mg PO DAILY Rx Instructions: pt states not taking any of her meds because she cant see her PCP melatonin 10 mg capsule 10 mg PO HS PRN Rx Instructions: pt states not taking any of her meds because she cant see her PCP meclizine 25 mg tablet 25 mg PO TID PRN (Reason: dizziness) Qty: 10 0RF Rx Instructions: pt states not taking any of her meds because she cant see her PCP benzonatate 100 mg capsule 100 mg PO TID PRN (Reason: cough) Qty: 10 0RF Patient Comments: pt states not taking any of her meds because she cant see her PCP fluticasone propionate [Flonase Allergy Relief] 50 mcg/actuation spray,suspension 1 spray intranasal DAILY Qty: 16 0RF Patient Comments: pt states not taking any of her meds because she cant see her PCP Rx Instructions: administer into each nostril fluconazole [Diflucan] 150 mg tablet 150 mg PO ONCE Qty: 1 0RF Patient Comments: pt states not taking any of her meds because she cant see her PCP Rx Instructions: as a single dose, if needed hydrocodone-acetaminophen 5-325 mg tablet 1 tab PO BID PRN (Reason: pain) Qty: 7 0RF Patient Comments: pt states not taking any of her meds because she cant see her PCP aspirin 81 mg Tablet,Delayed Release (Dr/Ec) 81 mg PO DAILY Qty: 30 0RF Patient Comments: pt states not taking any of her meds because she cant see her PCP acetaminophen [Tylenol] 325 mg Tablet 650 mg PO Q4H PRN PRNQty: 0 0RF Patient Comments: pt states not taking any of her meds because she cant see her PCP lisinopril 20 MG tablet 20 mg PO DAILY Qty: 30 0RF Patient Comments: non-compliant with regiment Rx Instructions: pt states not taking any of her meds because she cant see her PCP amlodipine 10 mg Tablet 10 mg PO DAILY Qty: 30 0RF Patient Comments: pt states not taking any of her meds because she cant see her PCP ibuprofen [Ibuprofen IB] 200 mg Tablet 400 mg PO QID PRNQty: 0 0RF Patient Comments: pt states not taking any of her meds because she cant see her PCP atenolol 50 MG tablet 50 mg PO DAILY Qty: 30 0RF Patient Comments: pt states not taking any of her meds because she cant see her PCP zolpidem [Ambien] 5 mg tablet 5 mg PO HS PRN Patient Comments: Take 1 tablet by mouth every night as needed Rx Instructions: pt states not taking any of her meds because she cant see her PCP hydrochlorothiazide 25 mg tablet 25 mg PO DAILY Qty: 30 1RF lisinopril 20 mg tablet 20 mg PO DAILY Qty: 30 1RF Discharge Instructions Instructions: Acute Bronchitis (ED), Acute Nausea and Vomiting (ED), Hypertension (ED) Additional Instructions: Please fill all your medications tomorrow at [facility] I am placing you on the care management list for follow-up Take medications as prescribed, I do recommend following up with primary care doctor, as you need regular care Take Zofran as needed for nausea and vomiting Use your inhaler, 2 puffs every 4-6 hours as needed for cough, wheeze, shortness of breath If the inhaler is not helping you may try several bursts of steroid, have given you prescription Discontinue the antibiotic Discharge Data Discharge Date/Time-TO BE ENTERED AT DEPARTURE: 04/21/23 22:58 Medical Decision Making This 58-year-old female presents with report of nausea and vomiting after starting doxycycline She is afebrile and nontoxic, she has no hypoxia, her blood pressure is markedly elevated, she is not exhibiting any signs of endorgan failure, she has not been taking her blood pressure meds, I did initiate metoprolol and lisinopril Pupils are equal round reactive to light and accommodation, patient is alert and oriented, cranial nerves II through XII intact, lungs clear to auscultation, no acute distress Chest x-ray does not show evidence of pneumonia We will take patient off antibiotics and give her a single dose of steroid and an inhaler She is also prescribed metformin, metoprolol, and lisinopril for home Care management will be involved as patient is unable to afford medications or insurance and apparently does not qualify for Medicaid, it is essential that this patient have a primary care physician especially with her comorbidities At time of discharge, she is ambulatory with steady gait, alert, oriented, in no acute distress, diagnostic labs were reviewed with patient, will hold on hydrochlorothiazide which is also on patient's list secondary to hypokalemia, will take potassium Glucose 258, no evidence of diabetic ketoacidosis, will reinitiate metformin, prescriptions are sent to [facility], these are 4 and $5 at [facility], she feels as though she can afford this amount return precautions reviewed and patient expressed understanding HPI General Date/Time Provider Initiated Documentation: 04/21/23 20:34 . HPI Narrative: This 58-year-old female presents with nausea and vomiting which started after initiation of doxycycline which was prescribed empirically for suspected pneumonia. Patient states she had a cough for the past week. She denies any shortness of breath or wheezing. She has past medical history of hypertension and diabetes, she has not taken meds for days for the past several months that she lost her insurance. She denies any headache, chest pain, current shortness of breath. She presents predominantly for nausea, concerned she may be allergic to the doxycycline Related Data Home Medications Medication Instructions Recorded Confirmed acetaminophen 325 mg tablet 650 mg PO Q4H PRN PRN #0 tabs 11/29/18 07/25/22 (Tylenol) amlodipine 10 mg tablet 10 mg PO DAILY #30 tabs 11/29/18 07/25/22 aspirin 81 mg tablet,delayed 81 mg PO DAILY #30 tabs 11/29/18 07/25/22 release atenolol 50 mg tablet 50 mg PO DAILY #30 tabs 11/29/18 07/25/22 ibuprofen 200 mg tablet (Ibuprofen 400 mg PO QID PRN #0 tabs 11/29/18 07/25/22 IB) lisinopril 20 mg tablet 20 mg PO DAILY #30 tabs 11/29/18 07/25/22 meclizine 25 mg tablet 25 mg PO TID PRN dizziness #10 tabs 01/25/19 07/25/22 metoprolol succinate 50 mg 50 mg PO DAILY 07/10/19 07/25/22 tablet,extended release 24 hr atorvastatin 40 mg tablet (Lipitor) 40 mg PO QPM 07/29/19 07/25/22 hydrochlorothiazide 25 mg tablet 25 mg PO DAILY 07/29/19 07/25/22 albuterol sulfate 90 mcg/actuation 2 puff inhalation Q6H PRN 01/09/20 07/25/22 aerosol inhaler (ProAir HFA) polyethylene glycol 3350 17 17 gm PO DAILY 01/09/20 07/25/22 gram/dose oral powder (Miralax) fluticasone propionate 50 1 spray intranasal DAILY 04/30/20 07/25/22 mcg/actuation nasal spray,suspension (Children's Flonase Allergy Relief) insulin glargine 100 unit/mL (3 26 unit subcut HS 04/30/20 07/25/22 mL) subcutaneous pen (Basaglar KwikPen U-100 Insulin) melatonin 10 mg capsule 10 mg PO HS PRN 12/10/20 07/25/22 metformin 500 mg tablet 1,000 mg PO BID #0 tabs 12/10/20 07/25/22 omeprazole 40 mg capsule,delayed 40 mg PO DAILY 12/10/20 07/25/22 release zolpidem 5 mg tablet (Ambien) 5 mg PO HS PRN 12/19/20 07/25/22 lidocaine 5 % topical patch 1 patch topical Q24H Lumbago #10 ea 06/01/21 3 benzonatate 100 mg capsule 100 mg PO TID PRN cough #10 caps 11/22/21 07/25/22 fluticasone propionate 50 1 spray intranasal DAILY #16 grams 11/22/21 07/25/22 mcg/actuation nasal spray,suspension (Flonase Allergy Relief) fluconazole 150 mg tablet 150 mg PO ONCE #1 tab 01/25/22 07/25/22 (Diflucan) hydrocodone 5 mg-acetaminophen 325 1 tab PO BID PRN pain #7 tabs 07/25/22 mg tablet hydrochlorothiazide 25 mg tablet 25 mg PO DAILY #30 tabs 01/26/23 lisinopril 20 mg tablet 20 mg PO DAILY #30 tabs 01/26/23 lisinopril 20 mg tablet 20 mg PO DAILY #30 tabs 04/21/23 metformin 1,000 mg tablet 1,000 mg PO BID #60 tabs 04/21/23 metoprolol succinate 50 mg 50 mg PO DAILY #30 tabs 04/21/23 tablet,extended release 24 hr prednisone 20 mg tablet 40 mg PO ONCE #6 tabs 04/21/23 Previous Rx's Medication Instructions Recorded acetaminophen 325 mg tablet 650 mg PO Q4H PRN PRN #0 tabs 11/29/18 (Tylenol) amlodipine 10 mg tablet 10 mg PO DAILY #30 tabs 11/29/18 aspirin 81 mg tablet,delayed 81 mg PO DAILY #30 tabs 11/29/18 release atenolol 50 mg tablet 50 mg PO DAILY #30 tabs 11/29/18 ibuprofen 200 mg tablet (Ibuprofen 400 mg PO QID PRN #0 tabs 11/29/18 IB) lisinopril 20 mg tablet 20 mg PO DAILY #30 tabs 11/29/18 meclizine 25 mg tablet 25 mg PO TID PRN dizziness #10 tabs 01/25/19 metformin 500 mg tablet 1,000 mg PO BID #0 tabs 12/10/20 lidocaine 5 % topical patch 1 patch topical Q24H Lumbago #10 ea 06/01/21 benzonatate 100 mg capsule 100 mg PO TID PRN cough #10 caps 11/22/21 fluticasone propionate 50 1 spray intranasal DAILY #16 grams 11/22/21 mcg/actuation nasal spray,suspension (Flonase Allergy Relief) fluconazole 150 mg tablet 150 mg PO ONCE #1 tab 01/25/22 (Diflucan) hydrocodone 5 mg-acetaminophen 325 1 tab PO BID PRN pain #7 tabs 07/25/22 mg tablet hydrochlorothiazide 25 mg tablet 25 mg PO DAILY #30 tabs 01/26/23 lisinopril 20 mg tablet 20 mg PO DAILY #30 tabs 01/26/23 lisinopril 20 mg tablet 20 mg PO DAILY #30 tabs 04/21/23 metformin 1,000 mg tablet 1,000 mg PO BID #60 tabs 04/21/23 metoprolol succinate 50 mg 50 mg PO DAILY #30 tabs 04/21/23 tablet,extended release 24 hr prednisone 20 mg tablet 40 mg PO ONCE #6 tabs 04/21/23 Allergies Allergy/AdvReac Type Severity Reaction Status Date / Time Sulfa (Sulfonamide Allergy Hives Verified 04/21/23 19:54 Antibiotics) General Stated Complaint: RespSymp NELSY: 3 PFSH All Active Problems (Updated 04/21/23 @ 21:57 by LY Mota) Nausea & vomiting (Acute) Hypertension (Chronic) Bronchitis (Acute) Diabetes (Chronic) Lumbago without sciatica (Acute) CAP (community acquired pneumonia) (Acute) Apnea (Acute) Non compliance w medication regimen (Acute) Screening for colon cancer (Acute) GERD (gastroesophageal reflux disease) (Chronic) Type 2 diabetes mellitus (Acute) Constipation (Acute) Erythema multiforme (Acute) Chronic headaches (Acute) Sleeping difficulties (Acute) Benign paroxysmal vertigo (Acute) Arm numbness (Acute) Bilateral carpal tunnel syndrome (Acute) Pulmonary hypertension (Chronic) Diastolic dysfunction (Chronic) Atypical chest pain (Chronic) Herniated nucleus pulposus, C5-6 right (Acute) Diabetes mellitus type 2 in obese (Chronic) Essential hypertension (Chronic) Hypertensive urgency (Acute) Medical History BPPV (benign paroxysmal positional vertigo) Complicated grief Diabetes mellitus Early satiety Herpes simplex History of depression Hypertension Insomnia Obesity Surgical History History of tubal ligation Family History Mother Heart disease Ovarian cancer Social History Smoking/Tobacco Use Status: Never Smoking risk assessment performed?: Yes Alcohol Intake: current Alcohol Intake frequency: holidays/special occasions only Drug use: Never Substance use type: does not use Household members: spouse Housing: house Number of Children: 5 What is your relationship status?: Panel score (0-1 are the most socially isolated patients): 1 Seatbelt use: always Do you feel safe at home: Yes Do you feel safe in your relationship?: Yes History History 6 Para 5 Hx # Term Pregnancies Multiple births Hx # Pregnancies Ectopic pregnancies AB induced Hx Number of Living Children AB spontaneous Course Vital Signs Vital signs: Vital Signs Temperature 37.2 C 04/21/23 19:47 Pulse 90 04/21/23 19:47 Respiratory Rate 16 04/21/23 19:47 Blood Pressure 217/135 H 04/21/23 19:47 Pulse Oximetry 99 04/21/23 19:47 Temperature 37.2 C 04/21/23 22:20 Temperature Source Oral 04/21/23 19:47 Pulse 68 04/21/23 22:20 Respiratory Rate 16 04/21/23 22:20 Respiratory Effort Normal 04/22/23 01:04 Respiratory Depth Normal 04/22/23 01:04 Blood Pressure 201/116 H 04/21/23 22:20 Blood Pressure Position Sitting 04/21/23 19:47 Pulse Oximetry 99 04/21/23 22:20 Oxygen Delivery Method Room Air 04/21/23 19:47 Oxygen Flow Rate 0 04/21/23 19:47 Pain Level 4 04/21/23 22:20 Comment stomach hurts. 04/21/23 19:47 Lab/Test Results Lab/Test Results: Laboratory Tests Range/Units 04/21/23 04/21/23 04/21/23 20:50 20:57 20:57 WBC (4.4-10.8) 10^3/uL 7.04 RBC (3.93-5.22) 10^6/uL 5.15 Hgb (11.2-15.7) g/dL 15.7 Hct (36.0-46.0) % 44.2 MCV (80-95) fL 86 MCH (27.0-33.0) pg 30.5 MCHC (32.0-36.0) % 35.5 RDW (11.7-14.6) % 11.3 L Plt Count (130-400) 10^3/uL 348 MPV (8.0-11.0) fL 10.6 Immature Gran % 0.3 Neutrophils % 46.1 Lymphocytes % 43.3 Monocytes % 6.8 Eosinophils % 2.8 Basophils % 0.7 Nucleated RBC % (0.0-0.3) % 0.0 Absolute Neutrophils (1.2-6.7) 10^3/uL 3.24 Absolute Lymphocytes (1.2-3.4) 10^3/uL 3.05 Absolute Monocytes (0.1-0.8) 10^3/uL 0.48 Absolute Eosinophils (0.0-0.7) 10^3/uL 0.20 Absolute Basophils (0.0-0.2) 10^3/uL 0.05 Sodium Cancelled 138 Potassium Cancelled 3.3 L Chloride Cancelled 102 Carbon Dioxide Cancelled 26.9 Anion Gap Cancelled 9.1 BUN Cancelled 14 Creatinine Cancelled 0.7 Est GFR (CKD-EPI 2020) Cancelled 99.57 Glucose Cancelled 258 H Calcium Cancelled 9.5 Total Bilirubin Cancelled 0.3 AST Cancelled 15 ALT Cancelled 32 Alkaline Phosphatase Cancelled 208 H Total Protein Cancelled 7.5 Albumin Cancelled 3.6 Urine Color (Yellow) Urine Clarity (Clear) Urine pH (5-8) Ur Specific Galien (1.005-1.025) Urine Protein (Negative) mg/dL Urine Ketones (Negative) mg/dL Urine Blood (Negative) Urine Nitrite (Negative) Urine Bilirubin (Negative) Urine Urobilinogen (Up to 0.2) mg/dL Ur Leukocyte Esterase (Negative) Urine RBC (0-2) HPF Urine WBC (0-5) HPF Ur Epithelial Cells (Negative) HPF Urine Crystals (Negative) HPF Urine Bacteria (Negative) HPF Urine Casts (Negative) LPF Urine Mucus (Negative) Ur Culture Indicated? Urine Glucose (Negative) mg/dL Range/Units 04/21/23 21:25 WBC (4.4-10.8) 10^3/uL RBC (3.93-5.22) 10^6/uL Hgb (11.2-15.7) g/dL Hct (36.0-46.0) % MCV (80-95) fL MCH (27.0-33.0) pg MCHC (32.0-36.0) % RDW (11.7-14.6) % Plt Count (130-400) 10^3/uL MPV (8.0-11.0) fL Immature Gran % Neutrophils % Lymphocytes % Monocytes % Eosinophils % Basophils % Nucleated RBC % (0.0-0.3) % Absolute Neutrophils (1.2-6.7) 10^3/uL Absolute Lymphocytes (1.2-3.4) 10^3/uL Absolute Monocytes (0.1-0.8) 10^3/uL Absolute Eosinophils (0.0-0.7) 10^3/uL Absolute Basophils (0.0-0.2) 10^3/uL Sodium Potassium Chloride Carbon Dioxide Anion Gap BUN Creatinine Est GFR (CKD-EPI 2020) Glucose Calcium Total Bilirubin AST ALT Alkaline Phosphatase Total Protein Albumin Urine Color (Yellow) Yellow Urine Clarity (Clear) Clear Urine pH (5-8) 5.5 Ur Specific Galien (1.005-1.025) >= 1.030 H Urine Protein (Negative) mg/dL Trace H Urine Ketones (Negative) mg/dL Negative Urine Blood (Negative) Negative Urine Nitrite (Negative) Negative Urine Bilirubin (Negative) Negative Urine Urobilinogen (Up to 0.2) mg/dL 0.2 Ur Leukocyte Esterase (Negative) Negative Urine RBC (0-2) HPF 0-2 Urine WBC (0-5) HPF 3-5 Ur Epithelial Cells (Negative) HPF Few Urine Crystals (Negative) HPF Negative Urine Bacteria (Negative) HPF Negative Urine Casts (Negative) LPF Negative Urine Mucus (Negative) Negative Ur Culture Indicated? No Urine Glucose (Negative) mg/dL 500 H
== END 2023-04-21 22:58 | disposition home or self-care (01) ==
PROVIDERS: Emergency Medicine; Emergency Provider Physician Assistant
DX: R11.2 Nausea with vomiting, unspecified; I10 Essential (primary) hypertension; E11.9 Type 2 diabetes mellitus without complications; J20.9 Acute bronchitis, unspecified
CPT/HCPCS: 80053; 99284; 71046; 81003; 81015; 85025

== ENCOUNTER 2023-04-27 19:41 | Emergency (ER) | payer SELFPAY ==
[2023-04-27 19:47] VITALS: BP 197/115; PULSE 104; RESP 18; TEMP 37.3; O2SAT 98
--- NOTE | 2023-04-27 19:50 | ED.GENADUL_ITS ---
Discharge Plan Disposition Patient Disposition: Home Discharge Details Clinical Impression: Acute pain of left knee Primary Care Provider: None,None ED Provider: Dorian Almanzar Home Meds and New Rx's Prescriptions: No Action atorvastatin [Lipitor] 40 mg tablet 40 mg PO QPM Patient Comments: pt states not taking any of her meds because she cant see her PCP lidocaine 5 % adhesive patch,medicated 1 patch topical Q24H Qty: 10 0RF Patient Comments: pt states not taking any of her meds because she cant see her PCP Rx Instructions: leave on most painful area for up to 12 hrs metoprolol succinate 50 mg tablet extended release 24 hr 50 mg PO DAILY Rx Instructions: pt states not taking any of her meds because she cant see her PCP hydrochlorothiazide 25 mg tablet 25 mg PO DAILY Patient Comments: pt states not taking any of her meds because she cant see her PCP polyethylene glycol 3350 [Miralax] 17 gram/dose powder 17 gm PO DAILY Rx Instructions: pt states not taking any of her meds because she cant see her PCP albuterol sulfate [ProAir HFA] 90 mcg/actuation HFA aerosol inhaler 2 puff IH Q6H PRN Patient Comments: pt states not taking any of her meds because she cant see her PCP insulin glargine [Basaglar KwikPen U-100 Insulin] 100 unit/mL (3 mL) insulin pen 26 unit subcut HS Patient Comments: pt states not taking any of her meds because she cant see her PCP fluticasone propionate [Children's Flonase Allergy Rlf] 50 mcg/actuation spray,suspension 1 spray intranasal DAILY Patient Comments: pt states not taking any of her meds because she cant see her PCP Rx Instructions: administer into each nostril metformin 500 mg tablet 1,000 mg PO BID Qty: 0 0RF Rx Instructions: pt states not taking any of her meds because she cant see her PCP omeprazole 40 mg capsule,delayed release(DR/EC) 40 mg PO DAILY Rx Instructions: pt states not taking any of her meds because she cant see her PCP melatonin 10 mg capsule 10 mg PO HS PRN Rx Instructions: pt states not taking any of her meds because she cant see her PCP meclizine 25 mg tablet 25 mg PO TID PRN (Reason: dizziness) Qty: 10 0RF Rx Instructions: pt states not taking any of her meds because she cant see her PCP benzonatate 100 mg capsule 100 mg PO TID PRN (Reason: cough) Qty: 10 0RF Patient Comments: pt states not taking any of her meds because she cant see her PCP fluticasone propionate [Flonase Allergy Relief] 50 mcg/actuation spray,suspension 1 spray intranasal DAILY Qty: 16 0RF Patient Comments: pt states not taking any of her meds because she cant see her PCP Rx Instructions: administer into each nostril fluconazole [Diflucan] 150 mg tablet 150 mg PO ONCE Qty: 1 0RF Patient Comments: pt states not taking any of her meds because she cant see her PCP Rx Instructions: as a single dose, if needed hydrocodone-acetaminophen 5-325 mg tablet 1 tab PO BID PRN (Reason: pain) Qty: 7 0RF Patient Comments: pt states not taking any of her meds because she cant see her PCP aspirin 81 mg Tablet,Delayed Release (Dr/Ec) 81 mg PO DAILY Qty: 30 0RF Patient Comments: pt states not taking any of her meds because she cant see her PCP acetaminophen [Tylenol] 325 mg Tablet 650 mg PO Q4H PRN PRNQty: 0 0RF Patient Comments: pt states not taking any of her meds because she cant see her PCP lisinopril 20 MG tablet 20 mg PO DAILY Qty: 30 0RF Patient Comments: non-compliant with regiment Rx Instructions: pt states not taking any of her meds because she cant see her PCP amlodipine 10 mg Tablet 10 mg PO DAILY Qty: 30 0RF Patient Comments: pt states not taking any of her meds because she cant see her PCP ibuprofen [Ibuprofen IB] 200 mg Tablet 400 mg PO QID PRNQty: 0 0RF Patient Comments: pt states not taking any of her meds because she cant see her PCP atenolol 50 MG tablet 50 mg PO DAILY Qty: 30 0RF Patient Comments: pt states not taking any of her meds because she cant see her PCP zolpidem [Ambien] 5 mg tablet 5 mg PO HS PRN Patient Comments: Take 1 tablet by mouth every night as needed Rx Instructions: pt states not taking any of her meds because she cant see her PCP hydrochlorothiazide 25 mg tablet 25 mg PO DAILY Qty: 30 1RF lisinopril 20 mg tablet 20 mg PO DAILY Qty: 30 1RF metoprolol succinate 50 mg tablet extended release 24 hr 50 mg PO DAILY Qty: 30 0RF lisinopril 20 mg tablet 20 mg PO DAILY Qty: 30 0RF metformin 1,000 mg tablet 1,000 mg PO BID Qty: 60 0RF prednisone 20 mg tablet 40 mg PO ONCE Qty: 6 0RF Discharge Instructions Instructions: Knee Pain (ED) Additional Instructions: At this time your x-ray does not show any evidence of fracture, however there is evidence of a small little calcification in the joint. This may have been causing the chronic pain that you have been feeling. I suspect that the pain that occurred today is likely secondary to a ligamentous injury. Please use the knee brace as directed. I would recommend using it for the next 2+ weeks until you are able to follow-up with the client technologies specialist. Please use the crutches and perform weightbearing as tolerated on your knee. Take Tylenol and Motrin as needed for pain. If you notice any worsening of your symptoms, or any new symptoms such as vomiting, diarrhea, fever, chills, shortness of breath, chest pain, numbness, weakness, or fainting , please return immediately to the emergency department for reevaluation. Please follow up with your primary care provider as soon as possible for reassessment and reevaluation. As always, it was a pleasure participating in your medical care today. Stand Alone Forms: Work Release Referrals: En Mix MD [ [facility] STAFF PHYSICIAN] - Darian Ramirez MD [ [facility] STAFF PHYSICIAN] - Medical Decision Making 58-year-old female with past medical history of hypertension, type 2 diabetes, GERD, presents today for left knee pain. Patient was jumping/doing jumping jacks with her grandchildren when she suddenly heard a pop in her left lateral knee, and fell down because of this. Pain occurred in the left lateral aspect as well as the posterior aspect. She took Tylenol and Motrin with no improvement. Pain is continued since then. Worse with ambulation. Improved by nothing. She denies numbness or tingling. No other complaints at this time. No other modifying factors. Physical exam demonstrates a stable knee, positive Frank's test, tenderness over the fibular head, and the posterior aspect of the knee. Concern for fracture versus ligamentous injury. We will get an x-ray, monitor closely and reassess. 9:26 PM X-ray shows no evidence of acute process. There is a small calcification anterior joint recess on the lateral view, concerning for a small intra- articular ossific body. Patient does admit to chronic pain in her left knee over the last few months to year. This may be related to this. Uncertain for sure. We will give the patient a hinged knee brace, crutches, with recommendation for weightbearing as tolerated. I suspect there was a ligamentous pathology that caused the pop that she initially heard. Although pain is present for most movements of the knee it does not feel unstable on exam. Will recommend follow-up with orthopedics in the next 2 weeks for reassessment. Discussed red flags for which to return. I have extensively reviewed the treatment plan and discharge instructions with the patient. I have addressed all patient concerns at this time. The patient was made aware of what symptoms to monitor for that would warrant a return to the emergency department. Discussed the plan with the patient, they demonstrate verbal understanding and agreement with our assessment and plan at this time. The documentation in this chart was dictated using [employer] dictation software. Please excuse any dictation errors. FINDINGS: Bones/joints: No fracture. Normal alignment. No joint effusion. No blastic or lytic lesions. Joint spaces are well-maintained. 2.5 mm calcification projects in the anterior joint recess on the lateral view, possibly a very small intra-articular body. Soft tissues: No gross soft tissue abnormalities. IMPRESSION: 1. A 2.5 mm calcification projects in the anterior joint recess on the lateral view, suspicious for a small intra-articular ossific body. 2. No fracture. Thank you for allowing us to participate in the care of your patient. Dictated and Authenticated by: Brandin Marquez MD 04/27/2023 9:03 PM Eastern Time ([place] & [place]) HPI General Date/Time Provider Initiated Documentation: 04/27/23 19:44 . HPI Narrative: 58-year-old female with past medical history of hypertension, type 2 diabetes, GERD, presents today for left knee pain. Patient was jumping/doing jumping jacks with her grandchildren when she suddenly heard a pop in her left lateral knee, and fell down because of this. Pain occurred in the left lateral aspect as well as the posterior aspect. She took Tylenol and Motrin with no improvement. Pain is continued since then. Worse with ambulation. Improved by nothing. She denies numbness or tingling. No other complaints at this time. No other modifying factors. Related Data Home Medications Medication Instructions Recorded Confirmed acetaminophen 325 mg tablet 650 mg PO Q4H PRN PRN #0 tabs 11/29/18 07/25/22 (Tylenol) amlodipine 10 mg tablet 10 mg PO DAILY #30 tabs 11/29/18 07/25/22 aspirin 81 mg tablet,delayed 81 mg PO DAILY #30 tabs 11/29/18 07/25/22 release atenolol 50 mg tablet 50 mg PO DAILY #30 tabs 11/29/18 07/25/22 ibuprofen 200 mg tablet (Ibuprofen 400 mg PO QID PRN #0 tabs 11/29/18 07/25/22 IB) lisinopril 20 mg tablet 20 mg PO DAILY #30 tabs 11/29/18 07/25/22 meclizine 25 mg tablet 25 mg PO TID PRN dizziness #10 tabs 01/25/19 07/25/22 metoprolol succinate 50 mg 50 mg PO DAILY 07/10/19 07/25/22 tablet,extended release 24 hr atorvastatin 40 mg tablet (Lipitor) 40 mg PO QPM 07/29/19 07/25/22 hydrochlorothiazide 25 mg tablet 25 mg PO DAILY 07/29/19 07/25/22 albuterol sulfate 90 mcg/actuation 2 puff inhalation Q6H PRN 01/09/20 07/25/22 aerosol inhaler (ProAir HFA) polyethylene glycol 3350 17 17 gm PO DAILY 01/09/20 07/25/22 gram/dose oral powder (Miralax) fluticasone propionate 50 1 spray intranasal DAILY 04/30/20 07/25/22 mcg/actuation nasal spray,suspension (Children's Flonase Allergy Relief) insulin glargine 100 unit/mL (3 26 unit subcut HS 04/30/20 07/25/22 mL) subcutaneous pen (Basaglar KwikPen U-100 Insulin) melatonin 10 mg capsule 10 mg PO HS PRN 12/10/20 07/25/22 metformin 500 mg tablet 1,000 mg PO BID #0 tabs 12/10/20 07/25/22 omeprazole 40 mg capsule,delayed 40 mg PO DAILY 12/10/20 07/25/22 release zolpidem 5 mg tablet (Ambien) 5 mg PO HS PRN 12/19/20 07/25/22 lidocaine 5 % topical patch 1 patch topical Q24H Lumbago #10 ea 06/01/21 07/25/22 benzonatate 100 mg capsule 100 mg PO TID PRN cough #10 caps 11/22/21 07/25/22 fluticasone propionate 50 1 spray intranasal DAILY #16 grams 11/22/21 07/25/22 mcg/actuation nasal spray,suspension (Flonase Allergy Relief) fluconazole 150 mg tablet 150 mg PO ONCE #1 tab 01/25/22 07/25/22 (Diflucan) hydrocodone 5 mg-acetaminophen 325 1 tab PO BID PRN pain #7 tabs 07/25/22 mg tablet hydrochlorothiazide 25 mg tablet 25 mg PO DAILY #30 tabs 01/26/23 lisinopril 20 mg tablet 20 mg PO DAILY #30 tabs 01/26/23 lisinopril 20 mg tablet 20 mg PO DAILY #30 tabs 04/21/23 metformin 1,000 mg tablet 1,000 mg PO BID #60 tabs 04/21/23 metoprolol succinate 50 mg 50 mg PO DAILY #30 tabs 04/21/23 tablet,extended release 24 hr prednisone 20 mg tablet 40 mg PO ONCE #6 tabs 04/21/23 Previous Rx's Medication Instructions Recorded acetaminophen 325 mg tablet 650 mg PO Q4H PRN PRN #0 tabs 11/29/18 (Tylenol) amlodipine 10 mg tablet 10 mg PO DAILY #30 tabs 11/29/18 aspirin 81 mg tablet,delayed 81 mg PO DAILY #30 tabs 11/29/18 release atenolol 50 mg tablet 50 mg PO DAILY #30 tabs 11/29/18 ibuprofen 200 mg tablet (Ibuprofen 400 mg PO QID PRN #0 tabs 11/29/18 IB) lisinopril 20 mg tablet 20 mg PO DAILY #30 tabs 11/29/18 meclizine 25 mg tablet 25 mg PO TID PRN dizziness #10 tabs 01/25/19 metformin 500 mg tablet 1,000 mg PO BID #0 tabs 12/10/20 lidocaine 5 % topical patch 1 patch topical Q24H Lumbago #10 ea 06/01/21 benzonatate 100 mg capsule 100 mg PO TID PRN cough #10 caps 11/22/21 fluticasone propionate 50 1 spray intranasal DAILY #16 grams 11/22/21 mcg/actuation nasal spray,suspension (Flonase Allergy Relief) fluconazole 150 mg tablet 150 mg PO ONCE #1 tab 01/25/22 (Diflucan) hydrocodone 5 mg-acetaminophen 325 1 tab PO BID PRN pain #7 tabs 07/25/22 mg tablet hydrochlorothiazide 25 mg tablet 25 mg PO DAILY #30 tabs 01/26/23 lisinopril 20 mg tablet 20 mg PO DAILY #30 tabs 01/26/23 lisinopril 20 mg tablet 20 mg PO DAILY #30 tabs 04/21/23 metformin 1,000 mg tablet 1,000 mg PO BID #60 tabs 04/21/23 metoprolol succinate 50 mg 50 mg PO DAILY #30 tabs 04/21/23 tablet,extended release 24 hr prednisone 20 mg tablet 40 mg PO ONCE #6 tabs 04/21/23 Allergies Allergy/AdvReac Type Severity Reaction Status Date / Time Sulfa (Sulfonamide Allergy Hives Verified 04/27/23 19:58 Antibiotics) General NELSY: 3 Review of Systems All systems reviewed & are unremarkable except as noted in HPI and below PFSH All Active Problems (Updated 04/27/23 @ 21:17 by Dorian Almanzar DO) Nausea & vomiting (Acute) Hypertension (Chronic) Bronchitis (Acute) Diabetes (Chronic) Acute pain of left knee (Acute) Lumbago without sciatica (Acute) CAP (community acquired pneumonia) (Acute) Apnea (Acute) Non compliance w medication regimen (Acute) Screening for colon cancer (Acute) GERD (gastroesophageal reflux disease) (Chronic) Type 2 diabetes mellitus (Acute) Constipation (Acute) Erythema multiforme (Acute) Chronic headaches (Acute) Sleeping difficulties (Acute) Benign paroxysmal vertigo (Acute) Arm numbness (Acute) Bilateral carpal tunnel syndrome (Acute) Pulmonary hypertension (Chronic) Diastolic dysfunction (Chronic) Atypical chest pain (Chronic) Herniated nucleus pulposus, C5-6 right (Acute) Diabetes mellitus type 2 in obese (Chronic) Essential hypertension (Chronic) Hypertensive urgency (Acute) Medical History BPPV (benign paroxysmal positional vertigo) Complicated grief Diabetes mellitus Early satiety Herpes simplex History of depression Hypertension Insomnia Obesity Surgical History History of tubal ligation Family History Mother Heart disease Ovarian cancer Social History Smoking/Tobacco Use Status: Never Smoking risk assessment performed?: Yes Alcohol Intake: current Alcohol Intake frequency: holidays/special occasions only Drug use: Never Substance use type: does not use Household members: spouse Housing: house Number of Children: 5 What is your relationship status?: Panel score (0-1 are the most socially isolated patients): 1 Seatbelt use: always Do you feel safe at home: Yes Do you feel safe in your relationship?: Yes History History 6 Para 5 Hx # Term Pregnancies Multiple births Hx # Pregnancies Ectopic pregnancies AB induced Hx Number of Living Children AB spontaneous Exam Narrative Exam Narrative: 1.Const: Well-nourished, Well-developed, appearing stated age 2.Eyes: PERRL, no conjunctival injection, and symmetrical lids. 3.ENT: Atraumatic external nose and ears. Moist MM. Neck: Symmetric, trachea midline, No thyromegaly. 4.CVS: +S1/S2, No murmurs or gallops. Peripheral pulses 2+ and equal in all extremities. Brisk capillary refill in all extremities. 5.RESP: Unlabored respiratory effort. Clear to auscultation bilaterally. No wheezes rales or rhonchi 6.GI: Soft, Nontender/Nondistended, No hepatosplenomegaly. No guarding or rebound. 7.MSK: Left knee: The knee is stable to varus, valgus, and anterior drawer stress. No deformity. Patellar grind test is negative. Frank test is positive for pain. Patient is able to walk with mild to moderate pain. No edema or warmth to the joint. Tenderness over the fibular head, and posterior popliteal space. 8.Skin: Warm, Dry. No rashes or lesions. 9.Neuro: green marketer II-XII grossly intact. Sensation grossly intact, no focal neurologic deficits. 10.Psych: (AAO) x3. Appropriate mood and affect
--- NOTE | 2023-04-27 20:39 | DI.RAD_ITS ---
Exam(s) XR KNEE LT 3V AP,LAT,LAINEY EXAM: XR KNEE LT 3V AP,LAT,LAINEY CLINICAL HISTORY: felt pop in lateral knee, lateral knee pain. TECHNIQUE: 2D digital imaging was performed of the left knee. Three images were obtained. AP, late ral and PA tunnel views were obtained. COMPARISON: No exams were available for comparison FINDINGS: BONES: No acute fracture is present. No bony destructive lesion is seen. JOINTS: The knee is normally aligned. No joint effusion is seen. On the lateral view there is a 3 mm density in the anterior joint space which may represent a loose body. SOFT TISSUE: Normal. IMPRESSION: No acute fracture or dislocation. No joint effusion. DATA REPOSITORY: RADIATION DOSE DELIVERED:
--- NOTE | 2023-04-27 21:04 | DI.VRAD_ITS ---
PROCEDURE INFORMATION: Exam: XR Left Knee Exam date and time: 04/27/2023 8:33 PM Age: 58 years old Clinical indication: Left; Patient HX: Benoit pop in lateral knee, lateral knee pain; Additional info: Done on table TECHNIQUE: Imaging protocol: Radiologic exam of the left knee. Views: 3 views. COMPARISON: No relevant prior studies available. FINDINGS: Bones/joints: No fracture. Normal alignment. No joint effusion. No blastic or lytic lesions. Joint spaces are well-maintained. 2.5 mm calcification projects in the anterior joint recess on the lateral view, possibly a very small intra-articular body. Soft tissues: No gross soft tissue abnormalities. IMPRESSION: 1. A 2.5 mm calcification projects in the anterior joint recess on the lateral view, suspicious for a small intra-articular ossific body. 2. No fracture. Dictated and Authenticated by: Brandin Marquez MD. Ordering:SHELDON Alarcon MD
== END 2023-04-27 21:31 | disposition home or self-care (01) ==
PROVIDERS: Emergency Provider Student in an Organized Health Care Education/Training Program
DX: M25.562 Pain in left knee (principal); Y93.A2 Activity, calisthenics
CPT/HCPCS: 29505; 73562; 99283

== ENCOUNTER 2023-06-17 07:44 | Emergency (ER) | payer OTHER, SELFPAY ==
[2023-06-17 07:50] VITALS: BP 199/113; PULSE 90; RESP 16; TEMP 36.6; O2SAT 97
--- NOTE | 2023-06-17 07:52 | W.ED.GENAD ---
Discharge Plan Disposition Patient Disposition: Home Discharge Details Clinical Impression: Tinea corporis Primary Care Provider: Danisha Johnson ED Provider: Brandin Loja Home Meds and New Rx's Prescriptions: New clotrimazole 1 % cream 1 applic topical BID 28 Days Qty: 30 0RF Continued albuterol sulfate [ProAir HFA] 90 mcg/actuation HFA aerosol inhaler 2 puff IH Q6H PRN Patient Comments: pt states not taking any of her meds because she cant see her PCP insulin glargine [Basaglar KwikPen U-100 Insulin] 100 unit/mL (3 mL) insulin pen 26 unit subcut HS Patient Comments: pt states not taking any of her meds because she cant see her PCP omeprazole 40 mg capsule,delayed release(DR/EC) 40 mg PO DAILY Rx Instructions: pt states not taking any of her meds because she cant see her PCP fluticasone propionate [Flonase Allergy Relief] 50 mcg/actuation spray,suspension 1 spray intranasal DAILY Qty: 16 0RF Patient Comments: pt states not taking any of her meds because she cant see her PCP Rx Instructions: administer into each nostril acetaminophen [Tylenol] 325 mg Tablet 650 mg PO Q4H PRN PRNQty: 0 0RF Patient Comments: pt states not taking any of her meds because she cant see her PCP ibuprofen [Ibuprofen IB] 200 mg Tablet 400 mg PO QID PRNQty: 0 0RF Patient Comments: pt states not taking any of her meds because she cant see her PCP atenolol 50 MG tablet 50 mg PO DAILY Qty: 30 0RF Patient Comments: pt states not taking any of her meds because she cant see her PCP zolpidem [Ambien] 5 mg tablet 5 mg PO HS PRN Patient Comments: Take 1 tablet by mouth every night as needed Rx Instructions: pt states not taking any of her meds because she cant see her PCP hydrochlorothiazide 25 mg tablet 25 mg PO DAILY Qty: 30 1RF metformin 1,000 mg tablet 1,000 mg PO BID Qty: 60 0RF Discharge Instructions Instructions: Skin Yeast Infection (ED) Additional Instructions: You were seen in the emergency department for your rash. You have a yeast infection on your abdomen. Please follow-up with your primary care provider later this week. Please use this lotion that has been prescribed twice a day for the next 4 weeks. Please return to the emergency department if you develop fevers chills chest pain or shortness of breath. HPI General Date/Time Provider Initiated Documentation: 06/17/23 07:52. HPI Narrative: MDM This is an overall very well-appearing normothermic and not tachycardic but hypertensive 58-year-old female with right sided abdominal rash most consistent with tinea corporis given history of diabetes and nonadherence with insulin. No recent new medications to suggest fixed drug reaction. No vesicles to suggest zoster. No pain out of proportion to suggest necrotizing soft tissue infection.No significant pain to suggest herpes. No scaling to suggest psoriasis. No tick bites to suggest Lyme disease. No necrotic area to suggest melanoma. No urticaria to suggest anaphylaxis. I have asked health coating and embossing unit operator Sarkis to have the patient seen next week by her primary care provider. Given tinea and nonadherence with insulin therapy well check basic labs to ensure patient is not in DKA. She does report adherence with her metformin. 9:15 AM CBC lacks anemia thrombocytopenia and leukocytosis. Basic metabolic panel showing hyperglycemia but no anion gap and normal bicarbonate??not consistent with DKA. No AGUILAR. Urinalysis showing ketonuria and glucosuria. Nitrite negative not consistent with UTI. Urinary frequency likely secondary to glucosuria. Will discharge with an empiric trial of expectant outpatient management. Chronic conditions affecting the care of the patient: Diabetes History obtained from an outside historian: N/A External [place] [facility] [place]: Clotrimazole Social determinants of health affecting disposition: Unable to afford insulin Management discussed with: N/A Treatment/interventions considered: N/A Response to therapies provided: N/A HPI This is a 58-year-old diabetic female not adherent with home medications secondary to cost arrived to the emergency department via private vehicle in the setting of a rash on her right hip. Patient reports that the sore has been present for 1 to 2 weeks. It itches. She was seen recently in the emergency department in [place] and given cephalexin. She is attempted treatment at home with triple antibiotic cream and topical Benadryl. She denies any trauma to her side. No recent bites. She says that the area itches. She says that she has never had similar symptoms. She denies fevers chills chest pain shortness of breath dysuria but endorses urinary frequency. No abnormal vaginal discharge. Denies routine tobacco, ethanol, and illicits. Has also noted some small sores on her arms. Exam General: Well-appearing in no acute distress speaking in complete sentences. Head: Normocephalic, atraumatic. Eye: Extraocular eye movements intact. No conjunctival injection. No scleral icterus. Ear, nose, mouth, throat: Grossly normal inspection. Normal voice, handling secretions normally. Neck: Trachea midline. Cardiovascular: Well-perfused distal extremities. Respiratory: Nonlabored respiration. Gastrointestinal: Nondistended abdomen. Musculoskeletal: No edema. Moving all 4 extremities spontaneously. Skin: On the right side of the abdomen there is erythematous annular scaling plaque with an active border. Plaques are slightly macerated in the intertriginous areas. There are some satellite lesions. Picture of rash as follows: On the patient's right arm there are several scaling plaques that are small less than 1 cm. Neurologic: Alert and appropriate, no apparent acute deficits. Psychiatric: Mood and manner are appropriate. Grooming and personal hygiene are appropriate. Related Data Home Medications Medication Instructions Recorded Confirmed acetaminophen 325 mg tablet 650 mg (2 x 325 mg) PO Q4H PRN PRN 11/29/18 06/17/23 (Tylenol) #0 tabs atenolol 50 mg tablet 50 mg PO DAILY #30 tabs 11/29/18 06/17/23 ibuprofen 200 mg tablet (Ibuprofen 400 mg (2 x 200 mg) PO QID PRN #0 11/29/18 06/17/23 IB) tabs albuterol sulfate 90 mcg/actuation 2 puff inhalation Q6H PRN 01/09/20 06/17/23 aerosol inhaler (ProAir HFA) insulin glargine 100 unit/mL (3 26 unit subcut HS 04/30/20 06/17/23 mL) subcutaneous pen (Basaglar KwikPen U-100 Insulin) omeprazole 40 mg capsule,delayed 40 mg PO DAILY 12/10/20 06/17/23 release zolpidem 5 mg tablet (Ambien) 5 mg PO HS PRN 12/19/20 05/21/23 fluticasone propionate 50 1 spray intranasal DAILY #16 grams 11/22/21 06/17/23 mcg/actuation nasal spray,suspension (Flonase Allergy Relief) hydrochlorothiazide 25 mg tablet 25 mg PO DAILY #30 tabs 01/26/23 06/17/23 metformin 1,000 mg tablet 1,000 mg PO BID #60 tabs 04/21/23 06/17/23 clotrimazole 1 % topical cream 1 applic topical BID 4 weeks #30 06/17/23 grams Previous Rx's Medication Instructions Recorded acetaminophen 325 mg tablet 650 mg (2 x 325 mg) PO Q4H PRN PRN 11/29/18 (Tylenol) #0 tabs atenolol 50 mg tablet 50 mg PO DAILY #30 tabs 11/29/18 ibuprofen 200 mg tablet (Ibuprofen 400 mg (2 x 200 mg) PO QID PRN #0 11/29/18 IB) tabs fluticasone propionate 50 1 spray intranasal DAILY #16 grams 11/22/21 mcg/actuation nasal spray,suspension (Flonase Allergy Relief) hydrochlorothiazide 25 mg tablet 25 mg PO DAILY #30 tabs 01/26/23 metformin 1,000 mg tablet 1,000 mg PO BID #60 tabs 04/21/23 clotrimazole 1 % topical cream 1 applic topical BID 4 weeks #30 06/17/23 grams Allergies Allergy/AdvReac Type Severity Reaction Status Date / Time Sulfa (Sulfonamide Allergy Hives Verified 06/17/23 07:56 Antibiotics) General NELSY: 3 PFSH All Active Problems (Updated 06/17/23 @ 08:14 by Brandin Loja MD) Tinea corporis (Acute) Tear of medial meniscus of left knee (Acute ~04/27/23) Lumbago without sciatica (Acute) CAP (community acquired pneumonia) (Acute) Apnea (Acute) Non compliance w medication regimen (Acute) Screening for colon cancer (Acute) GERD (gastroesophageal reflux disease) (Chronic) Type 2 diabetes mellitus (Acute) Constipation (Acute) Erythema multiforme (Acute) Chronic headaches (Acute) Sleeping difficulties (Acute) Benign paroxysmal vertigo (Acute) Arm numbness (Acute) Bilateral carpal tunnel syndrome (Acute) Pulmonary hypertension (Chronic) Diastolic dysfunction (Chronic) Atypical chest pain (Chronic) Herniated nucleus pulposus, C5-6 right (Acute) Diabetes mellitus type 2 in obese (Chronic) Essential hypertension (Chronic) Hypertensive urgency (Acute) Medical History BPPV (benign paroxysmal positional vertigo) Complicated grief Diabetes mellitus Early satiety Herpes simplex History of depression Hypertension Insomnia Obesity Surgical History History of tubal ligation Family History Mother Heart disease Ovarian cancer Social History Smoking/Tobacco Use Status: Never Smoking risk assessment performed?: Yes Alcohol Intake: current Alcohol Intake frequency: holidays/special occasions only Drug use: Never Substance use type: does not use Household members: spouse Housing: house Number of Children: 5 What is your relationship status?: Panel score (0-1 are the most socially isolated patients): 1 Seatbelt use: always Do you feel safe at home: Yes Do you feel safe in your relationship?: Yes History History 6 Para 5 Hx # Term Pregnancies Multiple births Hx # Pregnancies Ectopic pregnancies AB induced Hx Number of Living Children AB spontaneous
[2023-06-17] MEDS: Normal Saline 500 ML IV (08:28)
[2023-06-17 08:29] LABS: Abs Immature Grans 0.01 10^3/uL (0.0-0.06); Absolute Basophil Count 0.06 10^3/uL (0.0-0.2); Absolute Eosinophil Count 0.55 10^3/uL (0.0-0.7); Absolute Monocyte Count 0.59 10^3/uL (0.1-0.8); Absolute Neutrophil Count 4.22 10^3/uL (1.2-6.7); Basophils % 0.8; Eosinophils % 6.9; HCT 43.7 % (36.0-46.0); HGB 15.2 g/dL (11.2-15.7); Immature Grans % 0.1; Lymphocytes % 31.5; MCH 30.2 pg (27.0-33.0); MCHC 34.8 % (32.0-36.0); MCV 87 fL (80-95); MPV 11.5 fL (8.0-11.0); Monocytes % 7.4; Neutrophils % 53.3; Platelet Count 285 10^3/uL (130-400); RBC 5.03 10^6/uL (3.93-5.22); RDW 11.6 % (11.7-14.6); WBC 7.93 10^3/uL (4.4-10.8)
[2023-06-17 08:46] LABS: Anion Gap 7.1 mmol/L (3-11); BUN 25 mg/dL (7-18); CO2 25.9 mmol/L (21.0-32.0); CREATININE 0.9 mg/dL (0.55-1.02); Calcium 8.8 mg/dL (8.5-10.1); Chloride 104 mmol/L (98-107); Estimated GFR 73.64 (mL/min/1.73m2); Glucose 321 mg/dL (74-106); Potassium 4.6 mmol/L (3.5-5.1); Sodium 137 mmol/L (136-145)
[2023-06-17 08:56] LABS: Bilirubin Negative (Negative); Blood Negative (Negative); Clarity Clear (Clear); Glucose >=1000 mg/dL (Negative); Ketones Trace mg/dL (Negative); Leukocyte Esterase Negative (Negative); Nitrite Negative (Negative); Urobilinogen 0.2 mg/dL (Up to 0.2)
[2023-06-17] MEDS: Clotrimazole 1% 15 GM TUBE TP (08:57)
[2023-06-17 09:18] VITALS: BP 185/101; PULSE 78; RESP 18; TEMP 36.3; O2SAT 99
[2023-06-17 09:48] VITALS: BP 185/101; PULSE 78; RESP 18; TEMP 36.3; O2SAT 99
--- NOTE | 2023-06-17 11:53 | NUR.NOTE ---
Referral faxed to PCP for hyperglycemia, uncontrolled diabetes, yeast infection; to be done next week. Nursing Note:
== END 2023-06-17 10:15 | disposition home or self-care (01) ==
PROVIDERS: Emergency Provider Emergency Medicine; PCP Nurse Practitioner Family
DX: B35.4 Tinea corporis (principal); E11.9 Type 2 diabetes mellitus without complications; T38.3X6A Underdosing of insulin and oral hypoglycemic [antidiabetic] drugs, initial encounter; Z91.148 Patient's other noncompliance with medication regimen for other reason; Y92.019 Unspecified place in single-family (private) house as the place of occurrence of the external cause
CPT/HCPCS: 80048; 96360; 99283; 81003; 85025

== ENCOUNTER 2023-06-19 20:31 | Emergency (ER) | payer OTHER, SELFPAY ==
[2023-06-19 20:33] VITALS: BP 250/130; PULSE 86; RESP 20; TEMP 36.6; O2SAT 98
[2023-06-19] MEDS: metFORMIN 500 MG TAB 1000 MG PO (21:37)
[2023-06-19] MEDS: Fluconazole 150 MG TAB PO (21:37)
[2023-06-19] MEDS: diphenhydrAMINE 25 MG CAP 50 MG PO (21:38)
[2023-06-19 21:41] VITALS: BP 251/126
[2023-06-19] MEDS: hydroCHLOROthiazide 25 MG TAB PO (21:47)
--- NOTE | 2023-06-19 22:33 | ED.GENADUL_ITS ---
Discharge Plan Disposition Patient Disposition: Home Discharge Details Clinical Impression: Tinea corporis, Acute hyperglycemia, Diabetes mellitus type 2 in obese Primary Care Provider: Danisha Johnson ED Provider: Melanie Hwang Home Meds and New Rx's Prescriptions: New insulin glargine [Lantus Solostar U-100 Insulin] 100 unit/mL (3 mL) insulin pen 15 unit subcut HS Qty: 15 0RF fluconazole 150 mg tablet 150 mg PO QWEEK 21 Days Qty: 3 0RF metformin 1,000 mg tablet 1,000 mg PO BID Qty: 60 0RF Continued albuterol sulfate [ProAir HFA] 90 mcg/actuation HFA aerosol inhaler 2 puff IH Q6H PRN Patient Comments: pt states not taking any of her meds because she cant see her PCP insulin glargine [Basaglar KwikPen U-100 Insulin] 100 unit/mL (3 mL) insulin pen 26 unit subcut HS Patient Comments: pt states not taking any of her meds because she cant see her PCP omeprazole 40 mg capsule,delayed release(DR/EC) 40 mg PO DAILY Rx Instructions: pt states not taking any of her meds because she cant see her PCP fluticasone propionate [Flonase Allergy Relief] 50 mcg/actuation spray,suspension 1 spray intranasal DAILY Qty: 16 0RF Patient Comments: pt states not taking any of her meds because she cant see her PCP Rx Instructions: administer into each nostril clotrimazole 1 % cream 1 applic topical BID 28 Days Qty: 30 0RF acetaminophen [Tylenol] 325 mg Tablet 650 mg PO Q4H PRN PRNQty: 0 0RF Patient Comments: pt states not taking any of her meds because she cant see her PCP ibuprofen [Ibuprofen IB] 200 mg Tablet 400 mg PO QID PRNQty: 0 0RF Patient Comments: pt states not taking any of her meds because she cant see her PCP atenolol 50 MG tablet 50 mg PO DAILY Qty: 30 0RF Patient Comments: pt states not taking any of her meds because she cant see her PCP zolpidem [Ambien] 5 mg tablet 5 mg PO HS PRN Patient Comments: Take 1 tablet by mouth every night as needed Rx Instructions: pt states not taking any of her meds because she cant see her PCP hydrochlorothiazide 25 mg tablet 25 mg PO DAILY Qty: 30 1RF metformin 1,000 mg tablet 1,000 mg PO BID Qty: 60 0RF Discharge Instructions Instructions: Diabetic Hyperglycemia (ED), Skin Yeast Infection (ED) Additional Instructions: Take the Diflucan, 1 tablet a week, do not take your next dose of Diflucan until next Sunday as you received a dose today You may take Benadryl occasionally as needed for itch but do not take every 8 hours as it can interact with your Diflucan You may apply topical Benadryl to your rash Wash your hands frequently This rash is yeast from your blood sugar being very high, please fill the prescription for your Lantus and use the amount suggested Also reinitiate your metformin, you should be taking this twice a day I am placing you on follow-up for your primary care physician Referrals: Danisha Johnson [Primary Care Provider] - 5 days Medical Decision Making Disheveled 58-year-old female presenting with significant hypertension although asymptomatic, no headache, chest pain, shortness of breath, or neurological changes, no obvious evidence of endorgan failure, had blood work drawn 2 days ago the, this was reviewed Blood sugar on the was 321, no evidence of DKA in this DM2 patient Repeat blood sugar today was 221, I had a long discussion with patient regarding medical noncompliance, I did supply her with a prescription for insulin Lantus, this is $35 at [facility] and she was made aware of this, she will reinitiate her Lantus tomorrow, she is listed as being on 26 units however she is not taken it for several months and so I will reinitiate 15 units. Every night She will also reinitiate her metformin 1000 mg twice a day, dose was given this evening Her rash is consistent with significant tinea corporis, I will prescribe Diflucan 1 dose weekly for the next 4 weeks, she received her dose this evening She is aware that the rash is likely related to her significant hyperglycemia and poorly controlled diabetes, she tells me she will reinitiate her meds and she actually has an appointment for follow-up on the She will likely need readjustment of her medications In terms of the blood pressure, she is markedly hypertensive but again asymptomatic and so urgently reducing this would likely be more harm than benefit Will give patient her atenolol and hydrochlorothiazide and she will reinitiate her meds, she states she does not fact have them at home and has not been taking them Return precautions reviewed in detail patient expressed understanding Patient is alert, oriented, and fully of decisional capacity at time of my assessment HPI General Date/Time Provider Initiated Documentation: 06/19/23 20:57 . HPI Narrative: This 58-year-old female with history of medical noncompliance, history of diabetes, hypertension presents with report of nonhealing rash to trunk with e xtension into legs and groin. States that she is not taking her insulin nor her metformin. She also has been noncompliant with her antihypertensives. She states she simply forgets to take her oral medications and that she is unable to afford her insulin as it cost $100 per patient. She states she had blood work checked a couple of days ago and was told to use topical antifungal creams which she has been doing 3 times a day without relief in symptoms. She also took a course of Keflex which she finished 2 days ago and did not improve her symptoms. She denies any fever or chills. She states the rash is itchy and now painful. She denies any increased hunger, thirst, or urination. Denies chance of . Related Data Home Medications Medication Instructions Recorded Confirmed acetaminophen 325 mg tablet 650 mg (2 x 325 mg) PO Q4H PRN PRN 11/29/18 06/19/23 (Tylenol) #0 tabs atenolol 50 mg tablet 50 mg PO DAILY #30 tabs 11/29/18 06/19/23 ibuprofen 200 mg tablet (Ibuprofen 400 mg (2 x 200 mg) PO QID PRN #0 11/29/18 06/19/23 IB) tabs albuterol sulfate 90 mcg/actuation 2 puff inhalation Q6H PRN 01/09/20 06/19/23 aerosol inhaler (ProAir HFA) insulin glargine 100 unit/mL (3 26 unit subcut HS 04/30/20 06/19/23 mL) subcutaneous pen (Basaglar KwikPen U-100 Insulin) omeprazole 40 mg capsule,delayed 40 mg PO DAILY 12/10/20 06/19/23 release zolpidem 5 mg tablet (Ambien) 5 mg PO HS PRN 12/19/20 06/19/23 fluticasone propionate 50 1 spray intranasal DAILY #16 grams 11/22/21 06/19/23 mcg/actuation nasal spray,suspension (Flonase Allergy Relief) hydrochlorothiazide 25 mg tablet 25 mg PO DAILY #30 tabs 01/26/23 06/19/23 metformin 1,000 mg tablet 1,000 mg PO BID #60 tabs 04/21/23 06/19/23 clotrimazole 1 % topical cream 1 applic topical BID 4 weeks #30 06/17/23 06/19/23 grams fluconazole 150 mg tablet 150 mg PO QWEEK 3 weeks #3 tabs 06/19/23 insulin glargine 100 unit/mL (3 15 unit (0.15 mL) subcut HS #15 mL 06/19/23 mL) subcutaneous pen (Lantus Solostar U-100 Insulin) metformin 1,000 mg tablet 1,000 mg PO BID #60 tabs 06/19/23 Previous Rx's Medication Instructions Recorded acetaminophen 325 mg tablet 650 mg (2 x 325 mg) PO Q4H PRN PRN 11/29/18 (Tylenol) #0 tabs atenolol 50 mg tablet 50 mg PO DAILY #30 tabs 11/29/18 ibuprofen 200 mg tablet (Ibuprofen 400 mg (2 x 200 mg) PO QID PRN #0 11/29/18 IB) tabs fluticasone propionate 50 1 spray intranasal DAILY #16 grams 11/22/21 mcg/actuation nasal spray,suspension (Flonase Allergy Relief) hydrochlorothiazide 25 mg tablet 25 mg PO DAILY #30 tabs 01/26/23 metformin 1,000 mg tablet 1,000 mg PO BID #60 tabs 04/21/23 clotrimazole 1 % topical cream 1 applic topical BID 4 weeks #30 06/17/23 grams fluconazole 150 mg tablet 150 mg PO QWEEK 3 weeks #3 tabs 06/19/23 insulin glargine 100 unit/mL (3 15 unit (0.15 mL) subcut HS #15 mL 06/19/23 mL) subcutaneous pen (Lantus Solostar U-100 Insulin) metformin 1,000 mg tablet 1,000 mg PO BID #60 tabs 06/19/23 Allergies Allergy/AdvReac Type Severity Reaction Status Date / Time Sulfa (Sulfonamide Allergy Hives Verified 06/17/23 07:56 Antibiotics) General Stated Complaint: RashLesion NELSY: 4 PFSH All Active Problems (Updated 06/19/23 @ 21:31 by LY Mota) Acute hyperglycemia (Acute) Tinea corporis (Acute) Tinea corporis (Acute) Tear of medial meniscus of left knee (Acute ~04/27/23) Lumbago without sciatica (Acute) CAP (community acquired pneumonia) (Acute) Apnea (Acute) Non compliance w medication regimen (Acute) Screening for colon cancer (Acute) GERD (gastroesophageal reflux disease) (Chronic) Type 2 diabetes mellitus (Acute) Constipation (Acute) Erythema multiforme (Acute) Chronic headaches (Acute) Sleeping difficulties (Acute) Benign paroxysmal vertigo (Acute) Arm numbness (Acute) Bilateral carpal tunnel syndrome (Acute) Pulmonary hypertension (Chronic) Diastolic dysfunction (Chronic) Atypical chest pain (Chronic) Herniated nucleus pulposus, C5-6 right (Acute) Diabetes mellitus type 2 in obese (Chronic) Essential hypertension (Chronic) Hypertensive urgency (Acute) Medical History BPPV (benign paroxysmal positional vertigo) Complicated grief Diabetes mellitus Early satiety Herpes simplex History of depression Hypertension Insomnia Obesity Surgical History History of tubal ligation Family History Mother Heart disease Ovarian cancer Social History Smoking/Tobacco Use Status: Never Smoking risk assessment performed?: Yes Alcohol Intake: current Alcohol Intake frequency: holidays/special occasions only Drug use: Never Substance use type: does not use Household members: spouse Housing: house Number of Children: 5 What is your relationship status?: Panel score (0-1 are the most socially isolated patients): 1 Seatbelt use: always Do you feel safe at home: Yes Do you feel safe in your relationship?: Yes History History 6 Para 5 Hx # Term Pregnancies Multiple births Hx # Pregnancies Ectopic pregnancies AB induced Hx Number of Living Children AB spontaneous Course Vital Signs Vital signs: Vital Signs Temperature 36.6 C 06/19/23 20:33 Pulse 86 06/19/23 20:33 Respiratory Rate 20 06/19/23 20:33 Blood Pressure 250/130 H 06/19/23 20:33 Pulse Oximetry 98 06/19/23 20:33 Temperature 36.6 C 06/19/23 20:33 Pulse 86 06/19/23 20:33 Respiratory Rate 20 06/19/23 20:33 Respiratory Effort Normal 06/19/23 20:35 Blood Pressure 251/126 H 06/19/23 21:41 Pulse Oximetry 98 06/19/23 20:33 Oxygen Delivery Method Room Air 06/19/23 20:33 Oxygen Flow Rate 0 06/19/23 20:33 Comment pt is on blood pressure medications - pt did not take medications this morning 06/19/23 20:33
== END 2023-06-19 21:49 | disposition home or self-care (01) ==
PROVIDERS: Emergency Provider Physician Assistant; PCP Nurse Practitioner Family
DX: B35.4 Tinea corporis; E11.65 Type 2 diabetes mellitus with hyperglycemia; I10 Essential (primary) hypertension; Z79.4 Long term (current) use of insulin; Z79.84 Long term (current) use of oral hypoglycemic drugs; Z79.899 Other long term (current) drug therapy; Z91.148 Patient's other noncompliance with medication regimen for other reason; Z88.2 Allergy status to sulfonamides
CPT/HCPCS: 82962; 99283; 99284

== ENCOUNTER → 2023-06-26 01:11 | Outpatient (CLI) | payer OTHER, SELFPAY ==
--- OUTSIDE RECORDS SUMMARY | 2023-06-26 01:14 | XMS_ITS | Continuity of Care Document ---
Author Name Unknown Organization [facility] Ambulatory Clinics Address [address] [place] [address] Encounter [facility] NBR [id number] Date(s): 06/05/23 - 06/05/23 [facility] [address], [place] [address] Encounter Diagnosis Cellulitis(Discharge Diagnosis) - 06/05/23 Discharge Disposition: Home or Self Care Attending Physician: Josette Blanco APRN Admitting Physician: Danisha Johnson MD Allergies, Adverse Reactions, Alerts Substance Reaction Severity Status sulfa drugs Unknown Active Medications Advil 0 Refill(s) Start Date: 09/28/22 Status: Ordered amlodipine-atorvastatin 10 mg-40 mg oral tablet 1 tab, Oral, Daily, # 30 tab, 0 Refill(s) Start Date: 09/28/22 Status: Ordered cephalexin 500 mg oral capsule 500 mg = 1 cap, Oral, QID, # 28 cap, 0 Refill(s), Pharmacy: [id number], 165.1, cm, 09/28/22 9:13:00 EST, Height Start Date: 06/05/23 Stop Date: 06/12/23 Status: Ordered doxycycline hyclate 100 mg oral capsule 100 mg = 1 cap, Oral, BID, # 14 cap, 0 Refill(s), Pharmacy: [id number] Start Date: 04/20/23 Stop Date: 04/27/23 Status: Ordered fluconazole 150 mg oral tablet 150 mg = 1 tab, Oral, Once, Repeat in 3 days if symptoms persist., # 2 tab, 0 Refill(s), Pharmacy: [id number] Start Date: 12/24/22 Status: Ordered hydroCHLOROthiazide 25 mg oral tablet 25 mg = 1 tab, Oral, BID, 0 Refill(s) Start Date: 09/28/22 Status: Ordered metFORMIN 1000 mg oral tablet 1,000 mg = 1 tab, Oral, BID, # 180 tab, 0 Refill(s) Start Date: 09/28/22 Status: Ordered Metoprolol Succinate ER 100 mg oral tablet, extended release 100 mg = 1 tab, Oral, Daily, # 30 tab, 0 Refill(s) Start Date: 09/28/22 Status: Ordered valACYclovir 500 mg oral tablet 0 Refill(s) Start Date: 09/28/22 Status: Ordered Problem List Condition Confirmation Course Effective Dates Status Health St [facility] Informant Diabetes Confirmed Active High cholesterol Confirmed Active Hypertension Confirmed Active Vital Signs Most recent to oldest [Reference Range]: 1 Temperature Tympanic [36.6-38.1 Deg C] 3 6.6 Deg C (06/05/23 6:32 PM) Peripheral Pulse Rate [60-100 bpm] 80 bp m (06/05/23 6:32 PM) Respiratory Rate [12-24 br/min] 17 br/mi n (06/05/23 6:32 PM) Blood Pressure [90-140/60-90 mmHg] 173/1 08mmHg *HI* (06/05/23 6:32 PM) Mean Arterial Pressure, Cuff [70-110 mmH g] 130 mmHg *>HHI* (06/05/23 6:32 PM) Social History Social History Type Response Tobacco Never tobacco user T obacco Use:. Sex Outpatient Summary note * Josette Blanco, [employer]: PERFORM Event Display: Ambulatory Patient Summary Authored Date: [id number] EARL ESTRADA :1965 Age:58 years Sex:Female Visit Date:06/05/2023 Ambulatory Visit Instructions We would like to thank you for allowing us to assist you with your healthcare needs. The following includes patient education materials and information regarding your injury/illness. Your Next Steps Instructions From Your Care Team Take the antibiotics as instructed monitor for any worsening signs or symptoms, cool compresses to area.?? Try to keep the area clean and dry, do not traumatize the skin. ??Follow-up with your primary care for lack of improvement Medications What How Much When Why Instructions New cephalexin (cephalexin 500 mg oral capsule) 1 Capsules Oral (given by mouth) 4 times a day Duration: 7 Days Pickup at [facility] Unchanged amlodipine-atorvastatin (amlodipine-atorvastatin 10 mg-40 mg oral tablet) 1 tab Oral (given by mouth) Every day Unchanged doxycycline (doxycycline hyclate 100 mg oral capsule) 1 Capsules Oral (given by mouth) 2 times a day Lower respiratory tract infection Duration: 7 Days Unchanged fluconazole (fluconazole 150 mg oral tablet) 1 tab Oral (given by mouth) Once Vaginitis Repeat in 3 days if symptoms persist. ?? Unchanged hydroCHLOROthiazide (hydroCHLOROthiazide 25 mg oral tablet) 1 tab Oral (given by mouth) 2 times a day Unchanged ibuprofen (Advil) Unchanged metFORMIN (metFORMIN 1000 mg oral tablet) 1 tab Oral (given by mouth) 2 times a day Unchanged metoprolol (Metoprolol Succinate ER 100 mg oral tablet, extended release) 1 tab Oral (given by mouth) Every day Unchanged valACYclovir (valACYclovir 500 mg oral tablet) Pharmacy Information [id number]: [address], [place] [id number] [phone] Your Summary Your Diagnosis Cellulitis Problems Ongoing - Any problem that you are currently receiving treatment for. Diabetes High cholesterol Hypertension Your Care Team Admitting Physician - Danisha Johnson MD Attending Physician - Josette Blanco, GENE Discharge Vitals Temperature??(Tympanic) 97.9 ??F (36.6 ??C) Heart Rate??(Peripheral) 80 Respiratory Rate?? 17 Blood Pressure?? 173/108?? Allergies sulfa drugs Electronically Signed on: 06/05/2023 18:45 ESTSigned by:BOOGIE
--- OUTSIDE RECORDS SUMMARY | 2023-06-26 01:14 | XMS_ITS | Continuity of Care Document ---
Author Name Unknown Organization [facility] Address [address] [place] [address] Encounter [facility] NBR [id number] Date(s): 09/28/22 - 09/28/22 [facility] [address] [place] [address]- Discharge Disposition: Home or Self Care Attending Physician: Yamileth Isaacs PA-C Admitting Physician: Yamileth Isaacs PA-C Allergies, Adverse Reactions, Alerts Substance Reaction Severity Status sulfa drugs Unknown Active Assessment and Plan Diagnostic Tests Pending * Urine Culture 09/28/22 Medications Advil 0 Refill(s) Start Date: 09/28/22 Status: Ordered amlodipine-atorvastatin 10 mg-40 mg oral tablet 1 tab, Oral, Daily, # 30 tab, 0 Refill(s) Start Date: 09/28/22 Status: Ordered hydroCHLOROthiazide 25 mg oral tablet [...] 0 Refill(s) Start Date: 09/28/22 Status: Ordered nitrofurantoin macrocrystals-monohydrate 100 mg oral capsule 100 mg = 1 cap, Oral, BID, # 10 cap, 0 Refill(s), Pharmacy: [facility] Start Date: 09/28/22 Stop Date: 10/03/22 Status: Ordered Pyridium 100 mg oral tablet 200 mg = 2 tab, Oral, TID(PC), # 12 tab, 0 Refill(s), Pharmacy: [facility] Start Date: 09/28/22 Stop Date: 09/30/22 Status: Ordered valACYclovir 500 mg oral tablet 0 Refill(s) Start Date: 09/28/22 Status: Ordered Problem List Condition Confirmation Course Effective Dates Status Health [facility] Informant Diabetes Confirmed Active High cholesterol Confirmed Active Hypertension Confirmed Active Social History Social History Type Response Tobacco Never tobacco user T obacco Use:. Sex
--- OUTSIDE RECORDS SUMMARY | 2023-06-26 01:14 | XMS_ITS | Continuity of Care Document ---
Author Name Unknown Organization [facility] Ambulatory Clinics Address [address] [place] [address] Encounter [facility] NBR [id number] Date(s): 12/24/22 - 12/24/22 [facility] Ambulatory Clinics [address] [place], [place] [address] Encounter Diagnosis Vulvovaginal candidiasis(Discharge Diagnosis) - 12/24/22 Discharge Disposition: Home or Self Care Attending Physician: Ferny LLANES, Yamileth Allergies, Adverse Reactions, Alerts Substance Reaction Severity Status sulfa drugs Unknown Active Medications Advil 0 Refill(s) Start Date: 09/28/22 Status: Ordered amlodipine-atorvastatin 10 mg-40 mg oral tablet 1 tab, Oral, Daily, # 30 tab, 0 Refill(s) Start Date: 09/28/22 Status: Ordered fluconazole 150 mg oral tablet 150 mg = 1 tab, Oral, Once, Repeat in 3 days if symptoms persist., # 2 tab, 0 Refill(s), Pharmacy: [id number] Start Date: 12/24/22 Status: Ordered hydroCHLOROthiazide 25 [...] to oldest [Reference Range]: 1 Temperature Tympanic [36.6-37.9 Deg C] 3 6.6 Deg C (12/24/22 1:39 PM) Peripheral Pulse Rate [60-100 bpm] 92 bp m (12/24/22 1:39 PM) Blood Pressure [90-140/60-90 mmHg] 221/1 13mmHg *HI* (12/24/22 1:39 PM) Weight 84.37 kg (12/24/22 1:39 PM) Weight Measured (lbs) 186.004 lb (12/24/22 1:39 PM) Social History Social History Type Response Tobacco Never tobacco user T obacco Use:. Sex Hospital Discharge Instructions Patient Education 12/24/2022 13:09:49 Vaginitis Vaginitis Vaginitis is a condition in which the vaginal tissue swells and becomes irritated. This condition is most often caused by a change in the normal balance of bacteria and yeast that live in the vagina.This change causes an overgrowth of certain bacteria or yeast, which causes the inflammation. Thereare different types of vaginitis. What are the causes? The cause of this condition depends on the type of vaginitis. It can be caused by: ??? Bacteria (bacterial vaginosis). ??? Yeast, which is a fungus (candidiasis). ??? A parasite (trichomoniasis vaginitis). ??? A virus (viral vaginitis). ??? Low hormone levels (atrophic vaginitis). Low hormone levels can occur during , , or after menopause. ??? Irritants, such as bubble baths, scented tampons, and feminine sprays (allergic vaginitis). Other factors can change the normal balance of the yeast and bacteria that live in the vagina. These include: ??? Antibiotic medicines. ??? Poor hygiene. ??? Diaphragms, vaginal sponges, spermicides, control pills, and intrauterine devices (IUDs). ??? Sex. ??? Infection. ??? Uncontrolled diabetes. ??? A weakened body defense system (immune system). What increases the risk? This condition is more likely to develop in women who: ??? Smoke or are exposed to secondhand smoke. ??? Use vaginal douches, scented tampons, or scented sanitary pads. ??? Wear tight-fitting pants or thong underwear. ??? Use oral control pills or an IUD. ??? Have sex without a condom or have multiple partners. ??? Have an STI. ??? Frequently use the spermicide nonoxynol-9. ??? Eat lots of foods high in sugar or who have uncontrolled diabetes. ??? Have low estrogen levels. ??? Have a weakened immune system from an immune disorder or medical treatment. ??? Are or . What are the signs or symptoms? Symptoms vary depending on the cause of the vaginitis. Common symptoms include: ??? Abnormal vaginal discharge. ??? The discharge is white, mehta, or yellow with bacterial vaginosis. ??? The discharge is thick, white, and cheesy with a yeast infection. ??? The discharge is frothy and yellow or greenish with trichomoniasis. ??? A bad vaginal smell. The smell is fishy with bacterial vaginosis. ??? Vaginal itching, pain, or swelling. ??? Pain with sex. ??? Pain or burning when urinating. Sometimes there are no symptoms. How is this diagnosed? This condition is diagnosed based on your symptoms and medical history. A physical exam, including a pelvic exam, will also be done. You may also have other tests, including: ??? Tests to determine the pH level (acidity or alkalinity) of your vagina. ??? A whiff test to assess the odor that results when a sample of your vaginal discharge is mixed with a potassium hydroxide solution. ??? Tests of vaginal fluid. A sample will be examined under a microscope. How is this treated? Treatment varies depending on the type of vaginitis you have. Your treatment may include: ??? Antibiotic creams or pills to treat bacterial vaginosis and trichomoniasis. ??? Antifungal medicines, such as vaginal creams or suppositories, to treat a yeast infection. ??? Medicine to ease discomfort if you have viral vaginitis. Your sexual partner should also be treated. ??? Estrogen delivered in a cream, pill, suppository, or vaginal ring to treat atrophic vaginitis. If vaginal dryness occurs, lubricants and moisturizing creams may help. You may need to avoid scented soaps, sprays, or douches. ??? Stopping use of a product that is causing allergic vaginitis and then using a vaginal cream to treat the symptoms. Follow these instructions at home: Lifestyle ??? Keep your genital area clean and dry. Avoid soap, and only rinse the area with water. ??? Do not douche or use tampons until your health care provider says it is okay. Use sanitary pads, if needed. ??? Do not have sex until your health care provider approves. When you can return to sex, practice safe sex and use condoms. ??? Wipe from front to back. This avoids the spread of bacteria from the rectum to the vagina. General instructions ??? Take zbbp-bfo-uyzbqrx and prescription medicines only as told by your health care provider. ??? If you were prescribed an antibiotic medicine, take or use it as told by your health care provider. Do not stop taking or using the antibiotic even if you start to feel better. ??? Keep all follow-up visits. This is important. How is this prevented? Use mild, unscented products. Do not use things that can irritate the vagina, such as fabric softeners. Avoid the following products if they are scented: ??? Feminine sprays. ??? Detergents. ??? Tampons. ??? Feminine hygiene products. ??? Soaps or bubble baths. ??? Let air reach your genital area. To do this: ??? Wear cotton underwear to reduce moisture buildup. ??? Avoid wearing underwear while you sleep. ??? Avoid wearing tight pants and underwear or nylons without a cotton panel. ??? Avoid wearing thong underwear. ??? Take off any wet clothing, such as bathing suits, as soon as possible. ??? Practice safe sex and use condoms. Contact a health care provider if: ??? You have abdominal or pelvic pain. ??? You have a fever or chills. ??? You have symptoms that last for more than 2???3 days. Get help right away if: ??? You have a fever and your symptoms suddenly get worse. Summary ??? Vaginitis is a condition in which the vaginal tissue becomes inflamed.This condition is most often caused by a change in the normal balance of bacteria and yeast that live in the vagina. ??? Treatment varies depending on the type of vaginitis you have. ??? Do not douche, use tampons, or have sex until your health care provider approves. When you can return to sex, practice safe sex and use condoms. This information is not intended to replace advice given to you by your health care provider. Make sure you discuss any questions you have with your health care provider. Document Revised: 01/06/2021 Document Reviewed: 01/06/2021 [employer] Patient Education ?? 2021 [employer]. Physician Outpatient Note * Yamileth Isaacs PA-C: PERFORM Event Display: Office Clinic Note Physician Authored Date: [id number] EARL ESTRADA :1965 Age:57 years Sex:Female Visit Date:12/24/2022 Chief Complaint Pt reports ??sore raw itchy outer vagina x 3 weeks History of Present Illness Patient is a 57-year-old male with history of diabetes, noncompliant with her medications, that presents to the urgent care office today with 3-week history??of??vulvar??redness, irritation??and white thick discharge.?? No recent antibiotic use. ??She has been using a topical cream without any improvement of symptoms. ??No new sexual partners.?? No odor. ??No fever chills, belly pain, flank pain. Physical Exam Vitals & Measurements T:??36.6?C ??(Tympanic)?? HR:??92??(Peripheral)?? BP:??221/113?? SpO2:??98%?? WT:??84.37??kg?? Patient is well-appearing and in no acute distress, very pleasant,??dressed appropriately. Normal heart rate. ??Lung hess are clear. ??Abdomen is soft and nontender without any rigidity orguarding. Vulvar??and introitus erythema, white thick??discharge -swab taken. No satellite lesions.?? No open ulcerations or vesicular lesions. Urethra is patent. No inguinal lymphadenopathy. Anus is normal in appearance. Medical Decision Making: Vaginal irritation: 57-year-old??diabetic female noncompliant with her medications experiencing 3??weeks of vaginitis.?? Differential includes??vaginal candidiasis versus??bacterial vaginosis.?? STI unlikely. ??Pending??culture. ??I did initiate oral fluconazole??today at her request.?? I strongly recommended that she restart her diabetic medications, as it is likely the cause of her current symptoms. ??She is agreeable with this plan.?? Return precautions provided. Assessment/Plan 1.??Vulvovaginal candidiasis??B37.31 Orders: fluconazole 150 mg oral tablet, 150 mg = 1 tab, Oral, Once, Repeat in 3 days if symptoms persist., # 2 tab, 0 Refill(s), Pharmacy: [id number] Patient Instructions I will call you with the results of the vaginal swab. If you wish you may start the fluconazole??prescription. ??Take 1 tablet today and repeat again in 3 days if symptoms persist. Please make sure you are taking your diabetic medications.?? If this is used it is likely due to??high blood sugars. Patient Education Vaginitis Problem List/Past Medical History Ongoing Diabetes High cholesterol Hypertension Historical No qualifying data Medications Advil amlodipine-atorvastatin 10 mg-40 mg oral tablet, 1 tab, Oral, Daily fluconazole 150 mg oral tablet, 150 mg= 1 tab, Oral, Once hydroCHLOROthiazide 25 mg oral tablet, 25 mg= 1 tab, Oral, BID metFORMIN 1000 mg oral tablet, 1000 mg= 1 tab, Oral, BID Metoprolol Succinate ER 100 mg oral tablet, extended release, 100 mg= 1 tab, Oral, Daily valACYclovir 500 mg oral tablet Allergies sulfa drugs Social History Electronic Cigarette/Vaping Electronic Cigarette Use: Never. Tobacco Never tobacco user Tobacco Use:. Electronically Signed on 12/24/22 06:24 PM Yamileth Isaacs PA-C Outpatient Summary note * Yamileth Isaacs PA-C: PERFORM Event Display: Ambulatory Patient Summary Authored Date: [id number] EARL ESTRADA :1965 Age:57 years Sex:Female Visit Date:12/24/2022 Ambulatory Visit Instructions We would like to thank you for allowing us to assist you with your healthcare needs. The following includes patient education materials and information regarding your injury/illness. Your Next Steps Instructions From Your Care Team I will call you with the results of the vaginal swab. If you wish you may start the fluconazole??prescription. ??Take 1 tablet today and repeat again in 3 days if symptoms persist. Please make sure you are taking your diabetic medications.?? If this is used it is likely due to??high blood sugars. You Need to Complete the Following Xpress MVP (GeneXpert), Vaginal, Routine Collect, 12/24/22, Once, Nurse collect, Print Label, Vaginitis, Order for future visit Medications What How Much When Why Instructions New fluconazole (fluconazole 150 mg oral tablet) 1 tab Oral (given by mouth) Once Vaginitis Repeat in 3 days if symptoms persist. ?? Pickup at [id number] Unchanged amlodipine-atorvastatin (amlodipine-atorvastatin 10 mg-40 mg oral tablet) 1 tab Oral (given by mouth) Every day Unchanged hydroCHLOROthiazide (hydroCHLOROthiazide 25 mg oral tablet) [...] (valACYclovir 500 mg oral tablet) Pharmacy Information [id number]: [address] [place], [place] [id number] [phone] Your Summary Your Diagnosis Vaginitis Problems Ongoing - Any problem that you are currently receiving treatment for. Diabetes High cholesterol Hypertension Your Care Team Attending Physician - Yamileth Isaacs PA-C Discharge Vitals Temperature??(Tympanic) 97.9 ??F (36.6 ??C) Heart Rate??(Peripheral) 92 Blood Pressure?? 221/113?? Weight?? 186.04 lb (84.37 kg) Allergies sulfa drugs Education Materials Vaginitis Vaginitis is a condition in which the vaginal tissue swells and becomes irritated. This condition is most often caused by a change in the normal balance of bacteria and yeast that live in the vagina.This change causes an overgrowth of certain bacteria or yeast, which causes the inflammation. Thereare different types of vaginitis. What are the causes? The cause of this condition depends on the type of vaginitis. It can be caused by: ? Bacteria (bacterial vaginosis). ? Yeast, which is a fungus (candidiasis). ? A parasite (trichomoniasis vaginitis). ? A virus (viral vaginitis). ? Low hormone levels (atrophic vaginitis). Low hormone levels can occur during , , or after menopause. ? Irritants, such as bubble baths, scented tampons, and feminine sprays (allergic vaginitis). Other factors can change the normal balance of the yeast and bacteria that live in the vagina. These include: ? Antibiotic medicines. ? Poor hygiene. ? Diaphragms, vaginal sponges, spermicides, control pills, and intrauterine devices (IUDs). ? Sex. ? Infection. ? Uncontrolled diabetes. ? A weakened body defense system (immune system). What increases the risk? This condition is more likely to develop in women who: ? Smoke or are exposed to secondhand smoke. ? Use vaginal douches, scented tampons, or scented sanitary pads. ? Wear tight-fitting pants or thong underwear. ? Use oral control pills or an IUD. ? Have sex without a condom or have multiple partners. ? Have an STI. ? Frequently use the spermicide nonoxynol-9. ? Eat lots of foods high in sugar or who have uncontrolled diabetes. ? Have low estrogen levels. ? Have a weakened immune system from an immune disorder or medical treatment. ? Are or . What are the signs or symptoms? Symptoms vary depending on the cause of the vaginitis. Common symptoms include: ? Abnormal vaginal discharge. ? The discharge is white, mehta, or yellow with bacterial vaginosis. ? The discharge is thick, white, and cheesy with a yeast infection. ? The discharge is frothy and yellow or greenish with trichomoniasis. ? A bad vaginal smell. The smell is fishy with bacterial vaginosis. ? Vaginal itching, pain, or swelling. ? Pain with sex. ? Pain or burning when urinating. Sometimes there are no symptoms. How is this diagnosed? This condition is diagnosed based on your symptoms and medical history. A physical exam, including a pelvic exam, will also be done. You may also have other tests, including: ? Tests to determine the pH level (acidity or alkalinity) of your vagina. ? A whiff test to assess the odor that results when a sample of your vaginal discharge is mixed with a potassium hydroxide solution. ? Tests of vaginal fluid. A sample will be examined under a microscope. How is this treated? Treatment varies depending on the type of vaginitis you have. Your treatment may include: ? Antibiotic creams or pills to treat bacterial vaginosis and trichomoniasis. ? Antifungal medicines, such as vaginal creams or suppositories, to treat a yeast infection. ? Medicine to ease discomfort if you have viral vaginitis. Your sexual partner should also be treated. ? Estrogen delivered in a cream, pill, suppository, or vaginal ring to treat atrophic vaginitis. If vaginal dryness occurs, lubricants and moisturizing creams may help. You may need to avoid scented soaps, sprays, or douches. ? Stopping use of a product that is causing allergic vaginitis and then using a vaginal cream to treat the symptoms. Follow these instructions at home: Lifestyle ? Keep your genital area clean and dry. Avoid soap, and only rinse the area with water. ? Do not douche or use tampons until your health care provider says it is okay. Use sanitary pads, ifneeded. ? Do not have sex until your health care provider approves. When you can return to sex, practice safesex and use condoms. ? Wipe from front to back. This avoids the spread of bacteria from the rectum to the vagina. General instructions ? Take fxal-tip-sdndzeh and prescription medicines only as told by your health care provider. ? If you were prescribed an antibiotic medicine, take or use it as told by your health care provider.Do not stop taking or using the antibiotic even if you start to feel better. ? Keep all follow-up visits. This is important. How is this prevented? Use mild, unscented products. Do not use things that can irritate the vagina, such as fabric softeners. Avoid the following products if they are scented: ? Feminine sprays. ? Detergents. ? Tampons. ? Feminine hygiene products. ? Soaps or bubble baths. ? Let air reach your genital area. To do this: ? Wear cotton underwear to reduce moisture buildup. ? Avoid wearing underwear while you sleep. ? Avoid wearing tight pants and underwear or nylons without a cotton panel. ? Avoid wearing thong underwear. ? Take off any wet clothing, such as bathing suits, as soon as possible. ? Practice safe sex and use condoms. Contact a health care provider if: ? You have abdominal or pelvic pain. ? You have a fever or chills. ? You have symptoms that last for more than 2???3 days. Get help right away if: ? You have a fever and your symptoms suddenly get worse. Summary ? Vaginitis is a condition in which the vaginal tissue becomes inflamed.This condition is most often caused by a change in the normal balance of bacteria and yeast that live in the vagina. ? Treatment varies depending on the type of vaginitis you have. ? Do not douche, use tampons, or have sex until your health care provider approves. When you can return to sex, practice safe sex and use condoms. This information is not intended to replace advice given to you by your health care provider. Make sure you discuss any questions you have with your health care provider. Document Revised: 01/06/2021 Document Reviewed: 01/06/2021 [facility] Patient Education ?? 2021 [employer] Electronically Signed on: 12/24/2022 14:10 EDTSigned by:CAROLE
--- OUTSIDE RECORDS SUMMARY | 2023-06-26 01:14 | XMS_ITS | Continuity of Care Document ---
Author Name Unknown Organization [facility] Address [address] [place] [address] Encounter [facility] FIN NBR [id number] Date(s): 12/24/22 - 12/24/22 [facility] [address] [place] [address]- Discharge Disposition: Home or Self Care Attending [...] persist., # 2 tab, 0 Refill(s), Pharmacy: [id number] Start Date: 12/24/22 Status: Ordered hydroCHLOROthiazide 25 [...] High cholesterol Confirmed Active Hypertension Confirmed Active Results Laboratory List Name Date Xpress MVP (GeneXpert) (Multiplex Vagina l Panel Xpress (GeneXpert)) 12/24/22 Most recent to oldest [Reference Range]: 1 Bacterial Vaginosis MVP (GeneXpert) [Neg ative] Negative (12/24/22 2:00 PM) Kaye glab-krus MVP (GeneXpert) [Not D etected] Not Detected (12/24/22 2:00 PM) Kaye group MVP (GeneXpert) [Not Detec anat] Detected *ABN* (12/24/22 2:00 PM) Trichomonas vaginalis MVP (GeneXpert) [N ot Detected] Not Detected (12/24/22 2:00 PM) Social History Social History Type Response Tobacco Never tobacco user T obacco Use:. Sex
--- OUTSIDE RECORDS SUMMARY | 2023-06-26 01:14 | XMS_ITS | Continuity of Care Document ---
Author Name Unknown Organization [facility] Address [address] [place] [address] Encounter [facility] NBR [id number] Date(s): 04/20/23 - 04/20/23 [facility] [address] [place], [place] [address] Encounter Diagnosis Cough(Discharge Diagnosis) - 04/20/23 Lower respiratory tract infection(Discharge Diagnosis) - 04/20/23 Discharge Disposition: Home or Self Care Attending Physician: LY Joiner Admitting Physician: LY Joiner Allergies, Adverse Reactions, Alerts Substance Reaction Severity Status sulfa drugs Unknown Active Assessment and Plan Diagnostic Tests Pending * SARS-CoV-2 (Covid-19) AG ([facility]) POCT 04/20/23 Functional Status 04/20/23 Other exposure to Infectious Disease COV ID-19 Symptoms Present Medications Advil 0 Refill(s) Start Date: 09/28/22 Status: Ordered amlodipine-atorvastatin 10 mg-40 mg oral tablet 1 tab, Oral, Daily, # 30 tab, 0 Refill(s) Start Date: 09/28/22 Status: Ordered doxycycline hyclate 100 mg oral capsule 100 mg = 1 cap, Oral, BID, # 14 cap, 0 Refill(s), Pharmacy: [id number] Start Date: 04/20/23 Stop Date: 04/27/23 Status: Ordered fluconazole 150 mg oral tablet 150 mg = 1 tab, Oral, Once, Repeat in 3 days if symptoms persist., # 2 tab, 0 Refill(s), [id number] Start Date: 12/24/22 Status: Ordered [...] Confirmed Active Results Laboratory List Name Date SARS-CoV-2 (Covid-19) AG ([facility]) POCT Most recent to oldest [Reference Range]: 1 SARS-CoV or CoV-2 (COVID-19) Ag ([facility]) [Negative] Negative (04/20/23 1:58 PM) Employed in healthcare? Unknown *NA* (04/20/23 1:58 PM) Symptomatic as defined by CDC? Unknown *NA* (04/20/23 1:58 PM) Date of onset (Lab) Unknown *NA* (04/20/23 1:58 PM) Hospitalized due to COVID-19? Unknown *NA* (04/20/23 1:58 PM) In ICU? Unknown *NA* (04/20/23 1:58 PM) Group care resident? Unknown *NA* (04/20/23 1:58 PM) status? Unknown *NA* (04/20/23 1:58 PM) Vital Signs Most recent to oldest [Reference Range]: 1 Temperature Oral [35.8-37.3 Deg C] 36.9 Deg C (04/20/23 1:31 PM) Peripheral Pulse Rate [60-100 bpm] 94 bp m (04/20/23 1:31 PM) Respiratory Rate [12-24 br/min] 18 br/mi n (04/20/23 1:31 PM) Blood Pressure [90-140/60-90 mmHg] 190/1 11mmHg *HI* (04/20/23 1:31 PM) Social History Social History Type Response Tobacco Never tobacco user T obacco Use:. Sex Hospital Discharge Instructions Patient Education 04/20/2023 13:21:42 Cough, Adult, Hhqn-bg-Quqa Cough, Adult A cough helps to clear your throat and lungs. A cough may be a sign of an illness or another medical condition. An acute cough may only last 2???3 weeks, while a chronic cough may last 8 or more weeks. Many things can cause a cough. They include: ??? Germs (viruses or bacteria) that attack the airway. ??? Breathing in things that bother (irritate) your lungs. ??? Allergies. ??? Asthma. ??? Mucus that runs down the back of your throat (postnasal drip). ??? Smoking. ??? Acid backing up from the stomach into the tube that moves food from the mouth to the stomach (gastroesophageal reflux). ??? Some medicines. ??? Lung problems. ??? Other medical conditions, such as heart failure or a blood clot in the lung (pulmonary embolism). Follow these instructions at home: Medicines ??? Take hbyn-eiy-uwumvuo and prescription medicines only as told by your doctor. ??? Talk with your doctor before you take medicines that stop a cough (cough suppressants). Lifestyle ??? Do not smoke, and try not to be around smoke. Do not use any products that contain nicotine or tobacco, such as cigarettes, e-cigarettes, and chewing tobacco. If you need help quitting, ask your doctor. ??? Drink enough fluid to keep your pee (urine) pale yellow. ??? Avoid caffeine. ??? Do not drink alcohol if your doctor tells you not to drink. General instructions ??? Watch for any changes in your cough. Tell your doctor about them. ??? Always cover your mouth when you cough. ??? Stay away from things that make you cough, such as perfume, candles, campfire smoke, or cleaning products. ??? If the air is dry, use a cool mist vaporizer or humidifier in your home. ??? If your cough is worse at night, try using extra pillows to raise your head up higher while yousleep. ??? Rest as needed. ??? Keep all follow-up visits as told by your doctor. This is important. Contact a doctor if: ??? You have new symptoms. ??? You cough up pus. ??? Your cough does not get better after 2???3 weeks, or your cough gets worse. ??? Cough medicine does not help your cough and you are not sleeping well. ??? You have pain that gets worse or pain that is not helped with medicine. ??? You have a fever. ??? You are losing weight and you do not know why. ??? You have night sweats. Get help right away if: ??? You cough up blood. ??? You have trouble breathing. ??? Your heartbeat is very fast. These symptoms may be an emergency. Do not wait to see if the symptoms will go away. Get medical help right away. Call your local emergency services (911 in the [place] Do not drive yourself to the hospital. Summary ??? A cough helps to clear your throat and lungs. Many things can cause a cough. ??? Take umce-yvs-sguijow and prescription medicines only as told by your doctor. ??? Always cover your mouth when you cough. ??? Contact a doctor if you have new symptoms or you have a cough that does not get better or gets worse. This information is not intended to replace advice given to you by your health care provider. Make sure you discuss any questions you have with your health care provider. Document Revised: 08/27/2020 Document Reviewed: 07/28/2019 [employer] Patient Education ?? 2022 [employer] tea. Physician Outpatient Note * LY Joiner: PERFORM Event Display: Office Clinic Note Physician Authored Date: [id number] JOSMICHELLE EARL Diego :1965 Age:58 years Sex:Female Visit Date:04/20/2023 Chief Complaint Cough with green sputum, congestion, shortness of breath with exertion. History of Present Illness Presents 1 week history which started as typical upper respiratory infection with runny nose mild sore throat these improved now with cough which is productive. ??Did have 1 episode of blood-tinged sputum. ??No gross??hemoptysis.?? Cough has become more productive. ??More chest tightness??some mild??shortness of breath with??coughing but no shortness of breath at rest. ??Denies any dyspnea on exertion. ??No known COVID exposures. ??Did not do any home testing.?? She denies any abdominal pain, vomiting. Physical Exam Vitals & Measurements T:??36.9?C ??(Oral)?? HR:??94??(Peripheral)?? RR:??18?? BP:??190/111?? SpO2:??96%?? Pain Score:??5?? General: Alert and oriented, well nourished, no acute distress. Eye:??Pupils are reactive, conjunctiva clear. HENT: Normocephalic, clear tympanic membranes, throat clear no exudate and uvula is midline Neck: Supple, non-tender, no lymphadenopathy Lungs: Mild right lower rhonchi no rales or wheezes. ??Nonlabored respirations. Heart: Normal rate, regular rhythm, no murmur, gallop or edema. Abdomen: Soft, non-tender, non-distended, no masses, no CVA tenderness. Musculoskeletal: Normal range of motion and strength, no tenderness or swelling. Skin: Skin is warm, dry, no rashes or lesions in examined areas. Neurologic: Awake, alert and oriented X3, normal cognition and interaction. Psychiatric: Cooperative, appropriate mood and affect. Assessment/Plan 1.??Lower respiratory tract infection??J22 Rapid COVID testing negative. ??Given duration of symptoms and??double worsening would recommend starting antibiotics.?? She also had concerns about intermittent left lower quadrant pain. ??She is postmenopausal. ??She is concerned as she has a family history of ovarian cancer. ??I have recommendedshe contact women's health??for??general gynecological care and further evaluation emergency departm ent if her abdominal pain becomes constant or changes or worsens.? Ordered: doxycycline hyclate 100 mg oral capsule, 100 mg = 1 cap, Oral, BID, # 14 cap, 0 Refill(s), Pharmacy: [id number] ?? Cough??R05.9 Ordered: SARS-CoV-2 (Covid-19) AG ([facility]) POCT, Swab, Routine, RT - Routine, Collected Y/N, Once, 04/20/23 14:05:00 EDT, Cough ?? Patient Instructions Finish all antibiotics, recheck if not improving in 3 to 5 days.?? Contact women's health to establish for BORDER PATROL AGENT care. Patient Education Cough, Adult, Rdvr-ze-Mlai Problem List/Past Medical History Ongoing Diabetes High cholesterol Hypertension Historical No qualifying data Medications Advil amlodipine-atorvastatin 10 mg-40 mg oral tablet, 1 tab, Oral, Daily doxycycline hyclate 100 mg oral capsule, 100 mg= 1 cap, Oral, BID fluconazole 150 mg oral tablet, 150 mg= [...] Never. Tobacco Never tobacco user Tobacco Use:. Lab Results Test Name Test Result Date/Time SARS-CoV or CoV-2 (COVID-19) Ag ([facility]) Negative 04/20/2023 13:58 EDT Electronically Signed on 04/20/23 02:28 PM LY Joiner Outpatient Summary note * LY Joiner: PERFORM Event Display: Ambulatory Patient Summary Authored Date: [id number] SEAN EARL S :1965 Age:58 years Sex:Female Visit Date:04/20/2023 Ambulatory Visit Instructions We would like to thank you for allowing us to assist you with your healthcare needs. The following includes patient education materials and information regarding your injury/illness. Your Next Steps Instructions From Your Care Team Finish all antibiotics, recheck if not improving in 3 to 5 days.?? Contact women's health to establish for BORDER PATROL AGENT care. Medications What How Much When Why Instructions New doxycycline (doxycycline hyclate 100 mg oral capsule) 1 Capsules Oral (given by mouth) 2 times a day Lower respiratory tract infection Duration: 7 Days Pickup at [id number] Unchanged amlodipine-atorvastatin (amlodipine-atorvastatin 10 mg-40 mg oral tablet) 1 tab Oral (given by mouth) Every day Unchanged fluconazole (fluconazole 150 mg oral tablet) [...] (valACYclovir 500 mg oral tablet) Pharmacy Information [id number]: [address] [place], [place] [id number] [phone] Your Summary Your Diagnosis Lower respiratory tract infection Cough Problems Ongoing - Any problem that you are currently receiving treatment for. Diabetes High cholesterol Hypertension Outstanding Tests SARS-CoV-2 (Covid-19) AG ([facility]) POCT?-- Results Pending -- Tests Performed Test Name Test Result Date/Time SARS-CoV or CoV-2 (COVID-19) Ag ([facility]) Negative 04/20/2023 13:58 EDT Your Care Team Admitting Physician - LY Joiner Attending Physician - LY Joiner Discharge Vitals Temperature??(Oral) 98.4 ??F (36.9 ??C) Heart Rate??(Peripheral) 94 Respiratory Rate?? 18 Blood Pressure?? 190/111?? Allergies sulfa drugs Education Materials Cough, Adult A cough helps to clear your throat and lungs. A cough may be a sign of an illness or another medical condition. An acute cough may only last 2???3 weeks, while a chronic cough may last 8 or more weeks. Many things can cause a cough. They include: ? Germs (viruses or bacteria) that attack the airway. ? Breathing in things that bother (irritate) your lungs. ? Allergies. ? Asthma. ? Mucus that runs down the back of your throat (postnasal drip). ? Smoking. ? Acid backing up from the stomach into the tube that moves food from the mouth to the stomach (gastroesophageal reflux). ? Some medicines. ? Lung problems. ? Other medical conditions, such as heart failure or a blood clot in the lung (pulmonary embolism). Follow these instructions at home: Medicines ? Take watw-prb-rnymgxe and prescription medicines only as told by your doctor. ? Talk with your doctor before you take medicines that stop a cough (cough suppressants). Lifestyle ? Do not smoke, and try not to be around smoke. Do not use any products that contain nicotine or tobacco, such as cigarettes, e-cigarettes, and chewing tobacco. If you need help quitting, ask your doctor. ? Drink enough fluid to keep your pee (urine) pale yellow. ? Avoid caffeine. ? Do not drink alcohol if your doctor tells you not to drink. General instructions ? Watch for any changes in your cough. Tell your doctor about them. ? Always cover your mouth when you cough. ? Stay away from things that make you cough, such as perfume, candles, campfire smoke, or cleaning products. ? If the air is dry, use a cool mist vaporizer or humidifier in your home. ? If your cough is worse at night, try using extra pillows to raise your head up higher while you sleep. ? Rest as needed. ? Keep all follow-up visits as told by your doctor. This is important. Contact a doctor if: ? You have new symptoms. ? You cough up pus. ? Your cough does not get better after 2???3 weeks, or your cough gets worse. ? Cough medicine does not help your cough and you are not sleeping well. ? You have pain that gets worse or pain that is not helped with medicine. ? You have a fever. ? You are losing weight and you do not know why. ? You have night sweats. Get help right away if: ? You cough up blood. ? You have trouble breathing. ? Your heartbeat is very fast. These symptoms may be an emergency. Do not wait to see if the symptoms will go away. Get medical help right away. Call your local emergency services (911 in the [place] Do not drive yourself to the hospital. Summary ? A cough helps to clear your throat and lungs. Many things can cause a cough. ? Take eqgh-jid-ukwvmjp and prescription medicines only as told by your doctor. ? Always cover your mouth when you cough. ? Contact a doctor if you have new symptoms or you have a cough that does not get better or gets worse. This information is not intended to replace advice given to you by your health care provider. Make sure you discuss any questions you have with your health care provider. Document Revised: 08/27/2020 Document Reviewed: 07/28/2019 Elsevier Patient Education ?? 2022 [employer] Electronically Signed on: 04/20/2023 14:24 EDTSigned by:JUDITH
--- OUTSIDE RECORDS SUMMARY | 2023-06-26 01:14 | XMS_ITS | Continuity of Care Document ---
Author Name Unknown Organization [facility] Ambulatory Clinics Address [address] [place] [address] Encounter [facility] NBR [id number] Date(s): 09/28/22 - 09/28/22 [facility] Ambulatory Clinics [address] [place], [place] [address] Encounter Diagnosis Dysuria(Discharge Diagnosis) - 09/28/22 Hyperglycemia(Discharge Diagnosis) - 09/28/22 Discharge Disposition: Home or Self Care Attending Physician: Yamileth Isaacs PA-C Allergies, Adverse Reactions, Alerts Substance Reaction Severity Status sulfa drugs Unknown Active Functional Status 09/28/22 Other exposure to Infectious Disease Non e Medications Advil 0 Refill(s) Start Date: 09/28/22 [...] BID, # 10 cap, 0 Refill(s), Pharmacy: [id number] Start Date: 09/28/22 Stop Date: 10/03/22 Status: Ordered Pyridium 100 mg oral tablet 200 mg = 2 tab, Oral, TID(PC), # 12 tab, 0 Refill(s), [facility]acy: [id number] Start Date: 09/28/22 Stop Date: 09/30/22 Status: Ordered valACYclovir 500 mg oral tablet 0 Refill(s) Start Date: 09/28/22 Status: Ordered Problem List Condition Confirmation Course Effective Dates Status Health [facility] Informant Diabetes Confirmed Active High cholesterol Confirmed Active Hypertension Confirmed Active Results Laboratory List Name Date Glucose POCT 09/28/22 .Urinalysis POCT 09/28/22 Most recent to oldest [Reference Range]: 1 Glucose POC 324 *NA* (09/28/22 9:37 AM) Specific [place], Ur POC 1.015 *NA* (09/28/22 9:22 AM) Specimen Color POC [Yellow] Yellow (09/28/22 9:22 AM) Glucose, Urine POC >=1000 mg/dL *NA* (09/28/22 9:22 AM) Bilirubin, Urine POC [Negative] Negative (09/28/22 9:22 AM) Ketones, Urine POC [Negative mg/dL] Nega tive mg/dL (09/28/22 9:22 AM) Blood, Urine POC [Negative] Negative (09/28/22 9:22 AM) pH, Urine POC 7.00 *NA* (09/28/22 9:22 AM) Protein, Urine POC [Negative mg/dL] Nega tive mg/dL (09/28/22 9:22 AM) Urobilinogen, Urine POC [0.2] 0.2 (09/28/22 9:22 AM) Nitrite, Urine POC [Negative] Negative (09/28/22 9:22 AM) Leuk Esterase, Urine POC [Negative] Nega tive (09/28/22 9:22 AM) Clarity, Urine POC [Clear] Clear (09/28/22 9:22 AM) Vital Signs Most recent to oldest [Reference Range]: 1 Temperature Tympanic [36.6-37.9 Deg C] 3 6.7 Deg C (09/28/22 9:13 AM) Peripheral Pulse Rate [60-100 bpm] 86 bp m (09/28/22 9:13 AM) Blood Pressure [90-140/60-90 mmHg] 173/1 06mmHg *HI* (09/28/22 9:13 AM) Weight 86.18 kg (09/28/22 9:13 AM) Weight Measured (lbs) 189.994 lb (09/28/22 9:13 AM) Height 165.10 cm (09/28/22 9:13 AM) Height/Length Measured (inches) 65 inch (09/28/22 9:13 AM) BSA Measured 1.99 m2 (09/28/22 9:13 AM) Body Mass Index 31.62 kg/m2 (09/28/22 9:13 AM) Social History Social History Type Response Tobacco Never tobacco user T obacco Use:. Sex Physician Outpatient Note * Yamileth Isaacs PA-C: PERFORM Event Display: Office Clinic Note Physician Authored Date: [id number] EARL ESTRADA :1965 Age:57 years Sex:Female Visit Date:09/28/2022 Chief Complaint pt reports frequent urination, feelings of urgency, burning sensation symptoms started 3-4 days ago History of Present Illness Patient is a??57-year-old female with history of type 2 diabetes??that presents to the urgent care office today??with 4 days of??burning with urination, increased urinary frequency??and urgency.?? History of UTI??in the last year.?? No hematuria. ??No fever, chills, Jacobo pain, nausea or vomiting??or flank??pain. ??No history of bladder or renal calculus.?? No vaginal symptoms. ??No recent antibiotic use.?? No new sexual partners.?? She has not tried anything ajro-ece-rdgiyns for symptom management. ?? She has discontinued using her??insulin, only taking the metformin, due to side effects.?? Unfortunately she does not have insurance to restart her??antidiabetic medications. Physical Exam Vitals & Measurements T:??36.7?C ??(Tympanic)?? HR:??86??(Peripheral)?? BP:??173/106?? SpO2:??98%?? HT:??165.10??cm?? WT:??86.18??kg?? BMI:??31.62?? Pain Score:??4?? BSA:??1.99?? She is well-appearing and in no acute distress, very pleasant, reliable historian. Nondiaphoretic. Normal heart rate. ??Lung sounds are clear. Abdomen soft and nontender. ??No CVA tenderness. Medical Decision Making: Dysuria, 4 days: 57-year-old female??with type 2 diabetes??with 3 to 4 days of acute urinary symptoms.?? Urinalysis is positive for only??glucose. ??No nitrates or leukocytes. ??Pending urine culture.?? Her??fingerstick glucose was 334 here in the office.?? I suspect??her urinary symptoms are due to hyperglycemia. ??She will contact her PCP??regarding??blood sugar??control. ??She will use Pyridium for symptom management in the meantime. ??If culture is positive, she will start the Macrobid??twice daily x5 days.?? She has strict return precautions. ??She declined discharge instructions today. Assessment/Plan 1.??Dysuria??R30.0 Ordered: nitrofurantoin macrocrystals-monohydrate 100 mg oral capsule, 100 mg = 1 cap, Oral, BID, # 10 cap, 0 Refill(s), [facility] Pyridium 100 mg oral tablet, 200 mg = 2 tab, Oral, TID(PC), # 12 tab, 0 Refill(s), Pharmacy: [facility] Blood Glucose Clinic POC (RE), 09/28/22 9:34:00 EST, Dysuria, 09/28/22 9:34:00 EST Urine Culture, Urine, Routine collect, RT - Routine, 09/28/22, Once, Nurse collect, Dysuria, Order for future visit ?? 2.??Hyperglycemia??R73.9 Ordered: nitrofurantoin macrocrystals-monohydrate 100 mg oral capsule, 100 mg = 1 cap, Oral, BID, # 10 cap, 0 Refill(s), Pharmacy: [id number] ?? Orders: Urine Dipstick Clinic POC (RE), 09/28/22 9:22:00 EST, UTI symptoms, 09/28/22 9:22:00 EST Future Orders Urine Culture, Urine, Routine collect, RT - Routine, 09/28/22, Once, Nurse collect, Dysuria, Order for future visit Problem List/Past Medical History Ongoing Diabetes High cholesterol Hypertension Historical No qualifying data Medications Advil amlodipine-atorvastatin 10 mg-40 mg oral tablet, 1 tab, Oral, Daily hydroCHLOROthiazide 25 mg oral tablet, 25 mg= 1 tab, Oral, BID metFORMIN 1000 mg oral tablet, 1000 mg= 1 tab, Oral, BID Metoprolol Succinate ER 100 mg oral tablet, extended release, 100 mg= 1 tab, Oral, Daily nitrofurantoin macrocrystals-monohydrate 100 mg oral capsule, 100 mg= 1 cap, Oral, BID Pyridium 100 mg oral tablet, 200 mg= 2 tab, Oral, TID(PC) valACYclovir 500 mg oral tablet Allergies sulfa drugs Social History Electronic Cigarette/Vaping Electronic Cigarette Use: Never. Tobacco Never tobacco user Tobacco Use:. Lab Results Test Name Test Result Date/Time Specimen Color POC Yellow 09/28/2022 09:22 EST Clarity, Urine POC Clear 09/28/2022 09:22 EST Glucose, Urine POC >=1000 09/28/2022 09:22 EST Bilirubin, Urine POC Negative 09/28/2022 09:22 EST Ketones, Urine POC Negative 09/28/2022 09:22 EST Specific [place], Ur POC 1.015 09/28/2022 09:22 EST pH, Urine POC 7.00 09/28/2022 09:22 EST Protein, Urine POC Negative 09/28/2022 09:22 EST Urobilinogen, Urine POC 0.2 09/28/2022 09:22 EST Nitrite, Urine POC Negative 09/28/2022 09:22 EST Blood, Urine POC Negative 09/28/2022 09:22 EST Leuk Esterase, Urine POC Negative 09/28/2022 09:22 EST Electronically Signed on 09/28/22 10:05 AM Yamileth Isaacs PA-C
--- NOTE | 2023-06-26 07:30 | DI.MRI_ITS ---
Exam(s) MR LOWER JOINT LT WO EXAM: MR LOWER JOINT LT WO CLINICAL HISTORY: PAIN,tear of medial meniscus lt knee,S83.242a. TECHNIQUE: Multiplanar multisequence MRI was performed. COMPARISON: CR,XR XR KNEE LT 3V AP,LAT,LAINEY from 04/27/2023 FINDINGS: BONES: Mild contusions of the medial femoral condyle lateral tibial plateau. JOINTS: A small joint effusion is present. Articular cartilage: Patellofemoral joint: Articular cartilage is unremarkable. Medial femoral tibial joint: Articular cartilage is unremarkable. Lateral femoral tibial joint: Articular cartilage is unremarkable. TENDONS: Extensor mechanism: Unremarkable. Medial retinaculum: Unremarkable. Lateral retinaculum: Unremarkable. Popliteus: Unremarkable. MUSCLES: Unremarkable. MENISCI: The medial meniscus stellate tear of the posterior horn and body. The lateral meniscus is unremarkable. SOFT TISSUES: Small Arce's cyst. LIGAMENTS: Anterior Cruciate: Full-thickness tear. Posterior Cruciate: Unremarkable. Medial Collateral:Unremarkable. Lateral Collateral: Unremarkable. IMPRESSION: Full-thickness ACL tear. Stellate tear the posterior horn and body of the medial meniscus. DATA REPOSITORY:
== END ==
PROVIDERS: PCP Nurse Practitioner Family; Visit Provider Student in an Organized Health Care Education/Training Program
DX: S83.242A Other tear of medial meniscus, current injury, left knee, initial encounter (principal); S83.512A Sprain of anterior cruciate ligament of left knee, initial encounter; X58.XXXA Exposure to other specified factors, initial encounter
CPT/HCPCS: 73721

== ENCOUNTER 2023-07-12 13:36 | Emergency (ER) | payer OTHER, SELFPAY ==
[2023-07-12 13:44] VITALS: BP 209/137; PULSE 86; RESP 18; TEMP 37.1; O2SAT 99
--- OUTSIDE RECORDS SUMMARY | 2023-07-12 13:53 | XMS_ITS | Continuity of Care Document ---
Author Name Unknown Organization [facility] Address [address] [place] [address] Encounter [facility] NBR [id number] Date(s): 07/01/23 - 07/01/23 [facility] [address] [place] [address]- Encounter Diagnosis Rash and other nonspecific skin eruption(Final) - Discharge Disposition: Home or Self Care Attending Physician: Clotilde Castillo PA-C Admitting Physician: Clotilde Castillo PA-C Referring Physician: Clotilde Castillo PA-C Allergies, Adverse Reactions, Alerts Substance Reaction Severity Status sulfa drugs Unknown Active Assessment and Plan Diagnostic Tests Pending * BIRDIE w/Reflex LC 07/01/23 Future Scheduled Tests Laboratory* Pathology Request 07/01/23 Medications Advil 0 Refill(s) Start Date: 09/28/22 Status: Ordered amlodipine-atorvastatin 10 mg-40 mg oral tablet 1 tab, Oral, Daily, # 30 tab, 0 Refill(s) Start Date: 09/28/22 Status: Ordered cephalexin 500 mg oral capsule 500 mg = 1 cap, Oral, QID, # 28 cap, 0 Refill(s), Pharmacy: [facility], 165.1, cm, 09/28/22 9:13:00 EST, Height Start Date: 06/05/23 Stop Date: 06/12/23 Status: Ordered clindamycin 300 mg oral capsule 300 mg = 1 cap, Oral, every 8 hr, # 21 cap, 0 Refill(s), Pharmacy: [facility], 165.1, cm, 09/28/22 9:13:00 EST, Height, 83.91, kg, 06/26/23 13:40:00 EST, Weight Dosing Start Date: 07/01/23 Stop Date: 07/08/23 Status: Ordered clotrimazole 1% topical cream 1 ethan, Topical, BID, # 60 g, 0 Refill(s), Pharmacy: [facility], 165.1, cm, 09/28/22 9:13:00 EST, Height, 83.91, kg, 06/26/23 13:40:00 EST, Weight Dosing Start Date: 06/26/23 Status: Ordered Diflucan 200 mg oral tablet 200 mg = 1 tab, Oral, Daily, # 7 tab, 0 Refill(s), Pharmacy: [facility], 165.1, cm, 09/28/22 9:13:00 EST, Height, 83.91, kg, 06/26/23 13:40:00 EST, Weight Dosing Start Date: 07/01/23 Stop Date: 07/08/23 Status: Ordered doxycycline hyclate 100 mg oral capsule 100 mg = 1 cap, Oral, BID, # 14 cap, 0 Refill(s), Pharmacy: [facility] Start Date: 04/20/23 Stop Date: 04/27/23 Status: Ordered fluconazole 200 mg oral tablet 200 mg = 1 tab, Oral, Daily, # 7 tab, 0 Refill(s), Pharmacy: [facility], 165.1, cm, 09/28/22 9:13:00 EST, Height, 83.91, kg, 06/26/23 13:40:00 EST, Weight Dosing Start Date: 06/26/23 Stop Date: 07/03/23 Status: Ordered hydroCHLOROthiazide 25 mg oral tablet 25 mg = 1 tab, Oral, BID, 0 Refill(s) Start Date: 09/28/22 Status: Ordered hydrOXYzine pamoate 25 mg oral capsule See Instructions, PRN as needed for itching, 1 cap prn up to 3 times per day for itching, # 15 cap,0 Refill(s), Pharmacy: [place] [id number], 165.1, cm, 09/28/22 9:13:00 EST, Height, 83.91, kg, 06/26/23 13:40:00 EST, Weight Dosing Start Date: 07/01/23 Status: Ordered metFORMIN 1000 mg oral tablet 1,000 mg = 1 tab, Oral, BID, # 180 tab, 0 Refill(s) Start Date: 09/28/22 Status: Ordered Metoprolol Succinate ER 100 mg oral tablet, extended release 100 mg = 1 tab, Oral, Daily, # 30 tab, 0 Refill(s) Start Date: 09/28/22 Status: Ordered nystatin 100,000 units/g topical ointment 1 ethan, Topical, TID, # 30 g, 2 Refill(s), Pharmacy: [facility], 165.1, cm, 09/28/22 9:13:00 EST, Height, 83.91, kg, 06/26/23 13:40:00 EST, Weight Dosing Start Date: 07/01/23 Stop Date: 09/02/23 Status: Ordered valACYclovir 500 mg oral tablet 0 Refill(s) Start Date: 09/28/22 Status: Ordered Problem List Condition Confirmation Course Effective Dates Status Health [facility] Informant Diabetes Confirmed Active High cholesterol Confirmed Active Hypertension Confirmed Active Results Laboratory List Name Date Automated Diff 07/01/23 CBC w/ Diff 07/01/23 Comprehensive Metabolic Panel (CMP) 06/22 Most recent to oldest [Reference Range]: 1 WBC [4.8-10.8 K/mcL] 9.8 K/mcL (07/01/23 1:58 PM) RBC [4.20-5.40 Million/mcL] 4.96 Million /mcL (07/01/23 1:58 PM) Neutro Auto [42.2-75.2 %] 50.6 % (07/01/23 1:58 PM) Lymph Auto [20.5-51.1 %] 33.8 % (07/01/23 1:58 PM) [place]ina Auto [1.7-9.3 %] 5.6 % (07/01/23 1:58 PM) Basophil Auto [0.0-0.8 %] 0.4 % (07/01/23 1:58 PM) BUN [7-25 mg/dL] 19 mg/dL (07/01/23 1:58 PM) Glucose Level [70-109 mg/dL] 194 mg/dL *HI* (07/01/23 1:58 PM) Potassium Level [3.5-5.1 mmol/L] 3.8 mmo l/L (07/01/23 1:58 PM) Baso Absolute [0.0-0.2 K/mcL] 0.0 K/mcL (07/01/23 1:58 PM) MCV [81.0-99.0 fL] 89.6 fL (07/01/23 1:58 PM) AST [13-39 IntlUnit/L] 18 IntlUnit/L (07/01/23 1:58 PM) ALT [7-52 IntlUnit/L] 19 IntlUnit/L (07/01/23 1:58 PM) MCHC [32.0-37.0 g/dL] 34.4 g/dL (07/01/23 1:58 PM) Osmolality [275-295 mOsm/kg] 289 mOsm/kg (07/01/23 1:58 PM) Sodium Level [136-145 mmol/L] 141 mmol/L (07/01/23 1:58 PM) Lymph Absolute [1.2-3.4 K/mcL] 3.3 K/mcL (07/01/23 1:58 PM) Hct [37.0-47.0 %] 44.4 % (07/01/23 1:58 PM) Calcium Level [8.6-10.3 mg/dL] 9.5 mg/dL (07/01/23 1:58 PM) [place]ina Absolute [0.1-0.6 K/mcL] 0.6 K/mcL (07/01/23 1:58 PM) Albumin Level [3.5-5.7 g/dL] 4.3 g/dL (07/01/23 1:58 PM) Protein Total [6.4-8.9 g/dL] 6.7 g/dL (07/01/23 1:58 PM) MCH [27.0-31.0 pg] 30.8 pg (07/01/23 1:58 PM) Neutro Absolute [1.4-6.5 K/mcL] 5.0 K/mc L (07/01/23 1:58 PM) Bilirubin Total [0.3-1.0 mg/dL] 0.3 mg/d L (07/01/23 1:58 PM) Hgb [12.0-16.0 g/dL] 15.3 g/dL (07/01/23 1:58 PM) Alk Phos [34-104 IntlUnit/L] 107 IntlUni t/L *HI* (07/01/23 1:58 PM) MPV [7.4-10.4 fL] 9.8 fL (07/01/23 1:58 PM) Platelets [130-400 K/mcL] 298 K/mcL (07/01/23 1:58 PM) CO2 [21-31 mmol/L] 24 mmol/L (07/01/23 1:58 PM) Eos Absolute [0.0-0.2 K/mcL] 0.9 K/mcL *HI* (07/01/23 1:58 PM) Chloride Level [98-107 mmol/L] 107 mmol/ L (07/01/23 1:58 PM) RDW-CV [11.5-14.5 %] 12.8 % (07/01/23 1:58 PM) A/G Ratio [1.0-2.5 g/dL] 1.8 g/dL (07/01/23 1:58 PM) BUN/Creat Ratio [8.0-20.0] 27.1 *HI* (07/01/23 1:58 PM) Globulin [2.3-3.5 g/dL] 2.4 g/dL (07/01/23 1:58 PM) Creatinine Level [0.60-1.20 mg/dL] 0.70 mg/dL (07/01/23 1:58 PM) Anion Gap [3.0-12.0] 10.0 (07/01/23 1:58 PM) Eos, Auto [0.00-3.00 %] 9.60 % *HI* (07/01/23 1:58 PM) eGFR CKD-EPI [>=60 mL/min/1.73 m2] 100 m L/min/1.73 m2 (07/01/23 1:58 PM) Social History Social History Type Response Tobacco Never tobacco user T obacco Use:. Sex Patient Care team information Care Team Related Persons Name: TRACI ESTRADA Name: JOSMICHELLE TRACI
--- OUTSIDE RECORDS SUMMARY | 2023-07-12 13:53 | XMS_ITS | Continuity of Care Document ---
Author Name Unknown Organization [facility] Address [address] [place] [address] Encounter [facility] NBR [id number] Date(s): 07/10/23 - 07/10/[address] [facility] [address] [place] [address]- Encounter Diagnosis Secondary infection of skin(Discharge Diagnosis) - 07/10/23 Cyst of skin(Discharge Diagnosis) - 07/10/23 Other specified local infections of the skin and subcutaneous tissue(Final) - Follicular cyst of the skin and subcutaneous tissue, unspecified(Final) - Discharge Disposition: Home or Self Care Attending Physician: Clotilde Castillo PA-C Allergies, Adverse Reactions, Alerts Substance Reaction Severity Status sulfa drugs Unknown Active Assessment and Plan Future Scheduled Tests Laboratory* Pathology Request 07/01/23 Medications Advil 0 Refill(s) Start Date: 09/28/22 Status: Ordered amlodipine-atorvastatin 10 mg-40 mg oral tablet 1 tab, Oral, Daily, # 30 tab, 0 Refill(s) Start Date: 09/28/22 Status: Ordered cephalexin 500 mg oral capsule 500 mg = 1 cap, Oral, QID, # 28 cap, 0 Refill(s), [facility], 165.1, cm, 09/28/22 9:13:00 EST, Height Start Date: 06/05/23 Stop Date: 06/12/23 Status: Ordered clindamycin 300 mg oral capsule 300 mg = 1 cap, Oral, every 8 hr, # 21 cap, 0 Refill(s), [facility], 165.1, cm, 09/28/22 9:13:00 EST, Height, 83.91, kg, 06/26/23 13:40:00 EST, Weight Dosing Start Date: 07/01/23 Stop Date: 07/08/23 Status: Ordered clotrimazole 1% topical cream 1 ethan, Topical, BID, # 60 g, 0 Refill(s), Pharmacy: [facility], 165.1, cm, 09/28/22 9:13:00 EST, Height, 83.91, kg, 06/26/23 13:40:00 EST, Weight Dosing Start Date: 06/26/23 Status: Ordered Diflucan 200 mg oral tablet 200 mg = 1 tab, Oral, Daily, # 7 tab, 0 Refill(s), Pharmacy: [facility], 165.1, cm, 09/28/22 9:13:00 EST, Height, 83.91, kg, 06/26/23 13:40:00 EST, Weight Dosing Start Date: 07/01/23 Stop Date: 07/08/23 Status: Ordered doxycycline hyclate 100 mg oral capsule 100 mg = 1 cap, Oral, BID, # 14 cap, 0 Refill(s), Pharmacy: [facility] Start Date: 04/20/23 Stop Date: 04/27/23 Status: Ordered fluconazole 200 mg oral tablet 200 mg = 1 tab, Oral, Daily, # 7 tab, 0 Refill(s), Pharmacy: [facility], 165.1, cm, 09/28/22 9:13:00 EST, Height, 83.91, [...] for itching, # 15 cap,0 Refill(s), Pharmacy: [facility], 165.1, cm, 09/28/22 9:13:00 EST, Height, 83.91, [...] TID, # 30 g, 2 Refill(s), Pharmacy: [facility], 165.1, cm, 09/28/22 9:13:00 EST, Height, 83.91, kg, 06/26/23 13:40:00 EST, Weight Dosing Start Date: 07/01/23 Stop Date: 09/02/23 Status: Ordered predniSONE 10 mg oral tablet See Instruction, Oral, Daily, 4 tabs daily x3 days, 3 tabs daily x3 days, 2 tabs daily x3 days, 1 tab daily x3 days, # 30 tab, 0 Refill(s), Pharmacy: [facility], 165.1, cm, 09/28/22 9:13:00 EST, Height, 83.91, kg, 06/26/23 13:40:00 EST, Weight Dosing Start Date: 07/05/23 Stop Date: 07/17/23 Status: Ordered triamcinolone 0.1% topical cream 1 ethan, Topical, BID, # 60 g, 1 Refill(s), Pharmacy: [facility], 165.1, cm, 09/28/22 9:13:00 EST, Height, 83.91, kg, 06/26/23 13:40:00 EST, Weight Dosing Start Date: 07/05/23 Stop Date: 08/02/23 Status: Ordered valACYclovir 500 mg oral tablet 0 Refill(s) Start Date: 09/28/22 Status: Ordered Problem List Condition Confirmation Course Effective Dates Status Health [facility] Informant Diabetes Confirmed Active High cholesterol Confirmed Active Hypertension Confirmed Active Vital Signs Most recent to oldest [Reference Range]: 1 Peripheral Pulse Rate [60-100 bpm] 92 bp m (07/10/23 1:27 PM) Blood Pressure [90-140/60-90 mmHg] 187/1 15mmHg *HI* (07/10/23 1:27 PM) Mean Arterial Pressure, Cuff [70-110 mmH g] 139 mmHg *>HHI* (07/10/23 1:27 PM) Social History Social History Type Response Tobacco Never tobacco user T obacco Use:. Sex Physician Outpatient Note * Clotilde Castillo PA-C: PERFORM Event Display: Office Clinic Note Physician Authored Date: [id number] EARL ESTRADA :1965 Age:58 years Sex:Female Visit Date:07/10/2023 Chief Complaint look at stitches for infection. also would like spot on chin History of Present Illness This is a 58-year-old female who presents for recheck. ??See previous notes. ??Patiently recently diagnosed with??a widespread eosinophilic rash and is currently being treated with??a prednisone taper and??topical triamcinolone mixed with Sarna.?? Rash was initially thought to be fungal in origin but she failed Diflucan??and??topical??clotrimazole and nystatin, which prompted??a biopsy of the??rash, which revealed an eosinophilic dermatitis, possibly an exaggerated reaction to topical neomycin that she was using for??a skin abscess.?? She notes that she has seen significant improvement in herrash on the prednisone and the triamcinolone.?? She was seen for suture removal of a biopsy site 2 days ago??and there was concern for secondary infection.?? It was advised that she follow-up for recheck today. ??She notes that the site is less tender and inflamed today but she does have a spot on her chin which has been??very tender, enlarging, red, warm to touch. ??It has not been draining. Physical Exam Vitals & Measurements HR:??92??(Peripheral)?? BP:??187/115?? SpO2:??97%?? General: Alert and oriented x 3, no acute distress, well-nourished and hydrated Skin: improving faintly erythematous??plaques and satellite papules??in between and under the breasts,??under the??abdominal pad,??in the inguinal creases.?The biopsy site??appears slightly erythematous??but is nontender, nonfluctuant, no evidence of abscess. ??Examination of the chin reveals a?? tender, inflamed,??erythematous??nodule??with evidence of excoriation. Procedure Informed consent obtained. ??The site on patient's chin was??cleansed and anesthetized with 2 cc of2% lidocaine without epinephrine.?? The site was then cleansed with iodine.?? A single stab incision was made using a 15 blade.?? Only bloody contents were expressed from the site, there was no purulent drainage.?? Patient tolerated well. ??Bacitracin and a bandage were applied Assessment/Plan 1.??Cyst of skin??L72.9 Overall patient's rash is significantly improving.?? Due to scratching it does appear that she has developed a secondary skin infection. ??I had previously put patient on a course of clindamycin??however she notes that she stopped taking it as soon as she started the prednisone so really only took 1 days worth. ??We discussed that the prednisone could be exacerbating the secondary skin??infection??however it is important that she remain on this prednisone as it is clearing her rash.?? Her primary concern is an inflamed nodule on her chin. ??Attempt was made to I&D however there is no purulent??drainage. ??See procedure note below.?? At this time, I recommended warm compresses to the infl brayden areas on her skin.?? I strongly advised that she get back on the clindamycin that was prescribed for secondary infection.?? Stressed the importance of avoiding manipulating or picking at the lesions as this could worsen infection risk.?? She expresses understanding. ??Patient agrees to follow-up if not readily improving over the next week. 2.??Secondary infection of skin??L08.89 Patient Instructions It is reassuring that your rash is improving with a course of prednisone.?? As we discussed,??thereis concern for secondary infection of a few of your skin lesions. ??The prednisone may be??contributing??but it is important that you stay on this medication??as this is what is helping clear your rash. ??I am recommending that you resume the clindamycin medication, which is the antibiotic that youwere initially prescribed.?Please apply frequent warm compresses to the area on your chin.?? If at any point any of your lesions are becoming increasingly painful, swollen, red, or if you are developing a fever it is important that you return to??clinic for recheck. ??Please follow-up for any wor sening symptoms Problem List/Past Medical History Ongoing Diabetes High cholesterol Hypertension Historical No qualifying data Medications Advil amlodipine-atorvastatin 10 mg-40 mg oral tablet, 1 tab, Oral, Daily cephalexin 500 mg oral capsule, 500 mg= 1 cap, Oral, QID clindamycin 300 mg oral capsule, 300 mg= 1 cap, Oral, every 8 hr clotrimazole 1% topical cream, 1 ethan, Topical, BID Diflucan 200 mg oral tablet, 200 mg= 1 tab, Oral, Daily doxycycline hyclate 100 mg oral capsule, 100 mg= 1 cap, Oral, BID fluconazole 200 mg oral tablet, 200 mg= 1 tab, Oral, Daily hydroCHLOROthiazide 25 mg oral tablet, 25 mg= 1 tab, Oral, BID hydrOXYzine pamoate 25 mg oral capsule, See Instructions, PRN metFORMIN 1000 mg oral tablet, 1000 mg= 1 tab, Oral, BID Metoprolol Succinate ER 100 mg oral tablet, extended release, 100 mg= 1 tab, Oral, Daily nystatin 100,000 units/g topical ointment, 1 ethan, Topical, TID, 2 refills predniSONE 10 mg oral tablet, See Instruction, Oral, Daily triamcinolone 0.1% topical cream, 1 ethan, Topical, BID, 1 refills valACYclovir 500 mg oral tablet Allergies sulfa drugs Social History Electronic Cigarette/Vaping Electronic Cigarette Use: Never. Tobacco Never tobacco user Tobacco Use:. Electronically Signed on 07/10/23 02:37 PM Clotilde Castillo PA-C Outpatient Summary note * Clotilde Castillo PA-C: PERFORM Event Display: Ambulatory Patient Summary Authored Date: [id number] EARL ESTRADA :1965 Age:58 years Sex:Female Visit Date:07/10/2023 Ambulatory Visit Instructions We would like to thank you for allowing us to assist you with your healthcare needs. The following includes patient education materials and information regarding your injury/illness. Your Next Steps Instructions From Your Care Team It is reassuring that your rash is improving with a course of prednisone.?? As we discussed,??thereis concern for secondary infection of a few of your skin lesions. ??The prednisone may be??contributing??but it is important that you stay on this medication??as this is what is helping clear your rash. ??I am recommending that you resume the clindamycin medication, which is the antibiotic that youwere initially prescribed.?Please apply frequent warm compresses to the area on your chin.?? If at any point any of your lesions are becoming increasingly painful, swollen, red, or if you are developing a fever it is important that you return to??clinic for recheck. ??Please follow-up for any wor sening symptoms Medications What How Much When Why Instructions Unchanged amlodipine-atorvastatin (amlodipine-atorvastatin 10 mg-40 mg oral tablet) 1 tab Oral (given by mouth) Every day Unchanged cephalexin (cephalexin 500 mg oral capsule) 1 Capsules Oral (given by mouth) 4 times a day Duration: 7 Days Unchanged clindamycin (clindamycin 300 mg oral capsule) 1 Capsules Oral (given by mouth) Every 8 hours Pruritic intertrigo Rash Duration: 7 Days Unchanged clotrimazole topical (clotrimazole 1% topical cream) 1 Application Topical (on the skin) 2 times a day Intertrigo Unchanged doxycycline (doxycycline hyclate 100 mg oral capsule) 1 Capsules Oral (given by mouth) 2 times a day Lower respiratory tract infection Duration: 7 Days Unchanged fluconazole (Diflucan 200 mg oral tablet) 1 tab Oral (given by mouth) Every day Pruritic intertrigo Rash Duration: 7 Days Unchanged fluconazole (fluconazole 200 mg oral tablet) 1 tab Oral (given by mouth) Every day Intertrigo Duration: 7 Days Unchanged hydroCHLOROthiazide (hydroCHLOROthiazide 25 mg oral tablet) 1 tab Oral (given by mouth) 2 times a day Unchanged hydrOXYzine (hydrOXYzine pamoate 25 mg oral capsule) See instructions Pruritic intertrigo Rash 1 cap prn up to 3 times per day for itching, As needed for as needed for itching ?? Unchanged ibuprofen (Advil) Unchanged metFORMIN (metFORMIN 1000 mg oral tablet) 1 tab Oral (given by mouth) 2 times a day Unchanged metoprolol (Metoprolol Succinate ER 100 mg oral tablet, extended release) 1 tab Oral (given by mouth) Every day Unchanged nystatin topical (nystatin 100,000 units/ g topical ointment) 1 Application Topical (on the skin) 3 times a day Pruritic intertrigo Rash Duration: 21 Days Unchanged predniSONE (predniSONE 10 mg oral tablet) See Instruction Oral (given by mouth) Every day Duration: 12 Days 4 tabs daily x3 days, 3 tabs daily x3 days, 2 tabs daily x3 days, 1 tab daily x3 days ?? Unchanged triamcinolone topical (triamcinolone 0.1% topical cream) 1 Application Topical (on the skin) 2 times a day Duration: 14 Days Unchanged valACYclovir (valACYclovir 500 mg oral tablet) Your Summary Your Diagnosis Secondary infection of skin Problems Ongoing - Any problem that you are currently receiving treatment for. Diabetes High cholesterol Hypertension Your Care Team Attending Physician - Clotiled Castillo PA-C Discharge Vitals Heart Rate??(Peripheral) 92 Blood Pressure?? 187/115?? Allergies sulfa drugs Electronically Signed on: 07/10/2023 14:13 ESTSigned by:OLVIN Patient Care team information Care Team Related Persons Name: TRACI ESTRADA Name: TRACI ESTRADA
--- OUTSIDE RECORDS SUMMARY | 2023-07-12 13:53 | XMS_ITS | Continuity of Care Document ---
Author Name Unknown Organization [facility] Ambulatory Clinics Address [address] [place] [address] Encounter [facility] NBR [id number] Date(s): 07/08/23 - 07/08/23 [facility] [address] [place], [place] [address] Encounter Diagnosis Status post biopsy of skin(Discharge Diagnosis) - 07/08/23 Discharge Disposition: Home or Self Care Attending Physician: Josette Blanco APRN Admitting Physician: Josette Blanco APRN Allergies, Adverse Reactions, Alerts Substance Reaction Severity Status sulfa drugs Unknown Active Assessment and Plan Future Scheduled Tests Laboratory* Pathology Request 07/01/23 Functional Status 07/08/23 Other exposure to Infectious Disease Non e Medications Advil 0 Refill(s) Start Date: 09/28/22 Status: Ordered amlodipine-atorvastatin 10 mg-40 mg oral tablet 1 tab, Oral, Daily, # 30 tab, 0 Refill(s) Start Date: 09/28/22 Status: Ordered cephalexin 500 mg oral capsule 500 mg = 1 cap, Oral, QID, # 28 cap, 0 Refill(s), Pharmacy: [facility], 165.1, cm, 09/28/22 9:13:00 EST, Height Start Date: 06/05/23 Stop Date: 06/12/23 Status: Ordered clindamycin 300 mg oral capsule 300 mg = 1 cap, Oral, every 8 hr, # 21 cap, 0 Refill(s), Pharmacy: [facility], 165.1, cm, 09/28/22 9:13:00 EST, Height, 83.91, kg, 06/26/23 13:40:00 EST, Weight Dosing Start Date: 07/01/23 Stop Date: 07/08/23 Status: Ordered clotrimazole 1% topical cream 1 ethan, Topical, BID, # 60 g, 0 Refill(s), Pharmacy: [facility], 165.1, cm, 09/28/22 9:13:00 EST, Height, 83.91, kg, 06/26/23 13:40:00 EST, Weight Dosing Start Date: 06/26/23 Status: Ordered Diflucan 200 mg oral tablet 200 mg = 1 tab, Oral, Daily, # 7 tab, 0 Refill(s), Pharmacy: [facility], 165.1, cm, 09/28/22 9:13:00 EST, Height, 83.91, kg, 06/26/23 13:40:00 EST, Weight Dosing Start Date: 07/01/23 Stop Date: 07/08/23 Status: Ordered doxycycline hyclate 100 mg oral capsule 100 mg = 1 cap, Oral, BID, # 14 cap, 0 Refill(s), Pharmacy: [place] [id number] Start Date: 04/20/23 Stop Date: 04/27/23 Status: Ordered fluconazole 200 mg oral tablet 200 mg = 1 tab, Oral, Daily, # 7 tab, 0 Refill(s), Pharmacy: [facility], 165.1, cm, 09/28/22 9:13:00 EST, Height, 83.91, [...] for itching, # 15 cap,0 Refill(s), Pharmacy: [facility], 165.1, cm, 09/28/22 9:13:00 EST, Height, 83.91, [...] TID, # 30 g, 2 Refill(s), Pharmacy: [facility], 165.1, cm, 09/28/22 9:13:00 EST, Height, 83.91, kg, 06/26/23 13:40:00 EST, Weight Dosing Start Date: 07/01/23 Stop Date: 09/02/23 Status: Ordered predniSONE 10 mg oral tablet See Instruction, Oral, Daily, 4 tabs daily x3 days, 3 tabs daily x3 days, 2 tabs daily x3 days, 1 tab daily x3 days, # 30 tab, 0 Refill(s), Pharmacy: [facility], 165.1, cm, 09/28/22 9:13:00 EST, Height, 83.91, kg, 06/26/23 13:40:00 EST, Weight Dosing Start Date: 07/05/23 Stop Date: 07/17/23 Status: Ordered triamcinolone 0.1% topical cream 1 ethan, Topical, BID, # 60 g, 1 Refill(s), Pharmacy: [facility], 165.1, cm, 09/28/22 9:13:00 [...] 1 Temperature Tympanic [36.6-38.1 Deg C] 3 6.3 Deg C *LOW* (07/08/23 1:01 PM) Peripheral Pulse Rate [60-100 bpm] 85 bp m (07/08/23 1:01 PM) Respiratory Rate [12-24 br/min] 18 br/mi n (07/08/23 1:01 PM) Blood Pressure [90-140/60-90 mmHg] 160/1 04mmHg *HI* (07/08/23 1:01 PM) Mean Arterial Pressure, Cuff [70-110 mmH g] 123 mmHg *>HHI* (07/08/23 1:01 PM) Social History Social History Type Response Tobacco Never tobacco user T obacco Use:. Sex Physician Outpatient Note * Josette Blanco, AUTOMATIC STACKER: PERFORM Event Display: Office Clinic Note Physician Authored Date: [id number] EARL ESTRADA :1965 Age:58 years Sex:Female Visit Date:07/08/2023 Chief Complaint Stitch removal from LLQ, states painful with pus drainage History of Present Illness Patient is a 58-year-old female who presents today for??recheck and stitch removal from a??punch biopsy??that was done approximately 7 days ago. ??She has??been evaluated numerous times for??worsening rash, initially??thought to be cellulitic??or??fungal in nature, provider did a punch biopsy last week??and has evaluated those findings with the patient. ??She states that there is some drainage atthe biopsy site. Review of Systems see hpi Physical Exam Vitals & Measurements T:??36.3?C ??(Tympanic)?? HR:??85??(Peripheral)?? RR:??18?? BP:??160/104?? SpO2:??99%?? Pain Score:??8?? There is an approximate 0.5 cm??biopsy site with 2??intact sutures, there is positive exudate and moisture Medical Decision Making: Patient was evaluated for??infection of a biopsy site, she did have 2 intact??sutures which were removed. ??We did discuss local irritation and infection from the suture. ??She has been on??antibiotics and steroids and topical ointments??in excess over the last??few months. ??I did suggest that??we do watchful waiting keep the area clean and dry and see with??the removal of sutures if she??has a decrease irritation to the site. ??I did recommend that she return in 2 days for evaluation. ??Also is in the process of establishing primary care Assessment/Plan 1.??Status post biopsy of skin??Z98.890 Problem List/Past Medical History Ongoing Diabetes High [...] tobacco user Tobacco Use:. Electronically Signed on 07/08/23 04:26 PM Josette Blanco APRN Patient Care team information Care Team Related Persons Name: TRACI ESTRADA Name: TRACI ESTRADA
--- OUTSIDE RECORDS SUMMARY | 2023-07-12 13:53 | XMS_ITS | Continuity of Care Document ---
Author Name Unknown Organization [facility] Address [address] [place] [address] Encounter [facility] NBR [id number] Date(s): 07/01/23 - 07/01/23 [facility] [address] [place] [address]- Discharge Disposition: Home or Self Care Attending [...] QID, # 28 cap, 0 Refill(s), Pharmacy: [facility], 165.1, cm, 09/28/22 9:13:00 EST, Height Start Date: 06/05/23 Stop Date: 06/12/23 Status: Ordered clindamycin 300 mg oral capsule 300 mg = 1 cap, Oral, every 8 hr, # 21 cap, 0 Refill(s), Pharmacy: [facility], 165.1, cm, 09/28/22 9:13:00 EST, Height, 83.91, kg, 06/26/23 13:40:00 EST, Weight Dosing Start Date: 07/01/23 Stop Date: 07/08/23 Status: Ordered clotrimazole 1% topical cream 1 ethan, Topical, BID, # 60 g, 0 Refill(s), Pharmacy: [place] [address], 165.1, cm, 09/28/22 9:13:00 EST, Height, 83.91, kg, 06/26/23 13:40:00 EST, Weight Dosing Start Date: 06/26/23 Status: Ordered Diflucan 200 mg oral tablet 200 mg = 1 tab, Oral, Daily, # 7 tab, 0 Refill(s), Pharmacy: [place] [address], 165.1, cm, 09/28/22 9:13:00 EST, Height, 83.91, kg, 06/26/23 13:40:00 EST, Weight Dosing Start Date: 07/01/23 Stop Date: 07/08/23 Status: Ordered doxycycline hyclate 100 mg oral capsule 100 mg = 1 cap, Oral, BID, # 14 cap, 0 Refill(s), Pharmacy: [place] [id number] Start Date: 04/20/23 Stop Date: 04/27/23 Status: Ordered fluconazole 200 mg oral tablet 200 mg = 1 tab, Oral, Daily, # 7 tab, 0 Refill(s), Pharmacy: [place] [address], 165.1, cm, 09/28/22 9:13:00 EST, Height, 83.91, [...] for itching, # 15 cap,0 Refill(s), Pharmacy: [place] [address], 165.1, cm, 09/28/22 9:13:00 EST, Height, 83.91, [...] TID, # 30 g, 2 Refill(s), Pharmacy: [facility], 165.1, cm, 09/28/22 9:13:00 [...]
--- OUTSIDE RECORDS SUMMARY | 2023-07-12 13:53 | XMS_ITS | Continuity of Care Document ---
Author Name Unknown Organization [facility] Ambulatory Clinics Address [address] [place] [address] Encounter [facility] NBR [id number] Date(s): 06/26/23 - 06/26/23 [facility] Ambulatory Clinics [address] [place] [address]- Encounter Diagnosis Intertrigo(Discharge Diagnosis) - 06/26/23 Erythema intertrigo(Final) - Discharge Disposition: Home or Self Care Attending Physician: Josette Blanco APRN Allergies, Adverse Reactions, Alerts Substance Reaction Severity Status sulfa drugs Unknown Active Medications Advil 0 Refill(s) Start Date: 09/28/22 Status: Ordered amlodipine-atorvastatin 10 mg-40 mg oral tablet 1 tab, Oral, Daily, # 30 tab, 0 Refill(s) Start Date: 09/28/22 Status: Ordered cephalexin 500 mg oral capsule 500 mg = 1 cap, Oral, QID, # 28 cap, 0 Refill(s), Pharmacy: [facility], 165.1, cm, 09/28/22 9:13:00 EST, Height Start Date: 06/05/23 Stop Date: 06/12/23 Status: Ordered clotrimazole 1% topical cream 1 ethan, Topical, BID, # 60 g, 0 Refill(s), Pharmacy: [facility], 165.1, cm, 09/28/22 9:13:00 EST, Height, 83.91, kg, 06/26/23 13:40:00 EST, Weight Dosing Start Date: 06/26/23 Status: Ordered doxycycline hyclate 100 mg oral capsule 100 mg = 1 cap, Oral, BID, # 14 cap, 0 Refill(s), Pharmacy: [facility] Start Date: 04/20/23 Stop Date: 04/27/23 Status: Ordered fluconazole 200 mg oral tablet 200 mg = 1 tab, Oral, Daily, # 7 tab, 0 Refill(s), Pharmacy: [facility], 165.1, cm, 09/28/22 9:13:00 [...] Range]: 1 Peripheral Pulse Rate [60-100 bpm] 88 bp m (06/26/23 1:25 PM) Blood Pressure [90-140/60-90 mmHg] 196/1 16mmHg *HI* (06/26/23 1:25 PM) Mean Arterial Pressure, Cuff [70-110 mmH g] 143 mmHg *>HHI* (06/26/23 1:25 PM) Weight 83.91 kg (06/26/23 1:25 PM) Weight Measured (lbs) 184.99 lb (06/26/23 1:25 PM) Weight Dosing 83.910 kg (06/26/23 1:25 PM) Social History Social History Type Response Tobacco Never tobacco user T obacco Use:. Sex Hospital Discharge Instructions Patient Education 06/26/2023 12:48:33 Intertrigo Intertrigo Intertrigo is skin irritation or inflammation (dermatitis) that occurs when folds of skin rub together. The irritation can cause a rash and make skin raw and itchy. This condition most commonly occurs in the skin folds of these areas: ??? Toes. ??? Armpits. ??? Groin. ??? Under the belly. ??? Under the breasts. ??? Buttocks. Intertrigo is not passed from person to person (is not contagious). What are the causes? This condition is caused by heat, moisture, rubbing (friction), and not enough air circulation. Thecondition can be made worse by: ??? Sweat. ??? Bacteria. ??? A fungus, such as yeast. What increases the risk? This condition is more likely to occur if you have moisture in your skin folds. You are more likelyto develop this condition if you: ??? Have diabetes. ??? Are overweight. ??? Are not able to move around or are not active. ??? Live in a warm and moist climate. ??? Wear splints, braces, or other medical devices. ??? Are not able to control your bowels or bladder (have incontinence). What are the signs or symptoms? Symptoms of this condition include: ??? A pink or red skin rash in the skin fold or near the skin fold. ??? Raw or scaly skin. ??? Itchiness. ??? A burning feeling. ??? Bleeding. ??? Leaking fluid. ??? A bad smell. How is this diagnosed? This condition is diagnosed with a medical history and physical exam. You may also have a skin swabto test for bacteria or a fungus. How is this treated? This condition may be treated by: ??? Cleaning and drying your skin. ??? Taking an antibiotic medicine or using an antibiotic skin cream for a bacterial infection. ??? Using an antifungal cream on your skin or taking pills for an infection that was caused by a fungus, such as yeast. ??? Using a steroid ointment to relieve itchiness and irritation. ??? the skin fold with a clean cotton cloth to absorb moisture and allow air to flow into the area. Follow these instructions at home: ??? Keep the affected area clean and dry. ??? Do not scratch your skin. ??? Stay in a cool environment as much as possible. Use an air conditioner or fan, if available. ??? Apply [id number] and prescription medicines only as told by your health care provider. ??? If you were prescribed an antibiotic medicine, use it as told by your health care provider. Do not stop using the antibiotic even if your condition improves. ??? Keep all follow-up visits as told by your health care provider. This is important. How is this prevented? Maintain a healthy weight. ??? Take care of your feet, especially if you have diabetes. Foot care includes: ??? Wearing shoes that fit well. ??? Keeping your feet dry. ??? Wearing clean, breathable socks. ??? Protect the skin around your groin and buttocks, especially if you have incontinence. Skin protection includes: ??? Following a regular cleaning routine. ??? Using skin protectant creams, powders, or ointments. ??? Changing protection pads frequently. ??? Do not wear tight clothes. Wear clothes that are loose, absorbent, and made of cotton. ??? Wear a bra that gives good support, if needed. ??? Shower and dry yourself well after activity or exercise. Use a hair spring cutter on a cool setting to dry between skin folds, especially after you bathe. ??? If you have diabetes, keep your blood sugar under control. Contact a health care provider if: ??? Your symptoms do not improve with treatment. ??? Your symptoms get worse or they spread. ??? You notice increased redness and warmth. ??? You have a fever. Summary ??? Intertrigo is skin irritation or inflammation (dermatitis) that occurs when folds of skin rub together. ??? This condition is caused by heat, moisture, rubbing (friction), and not enough air circulation. ??? This condition may be treated by cleaning and drying your skin and with medicines. ??? Apply vtii-qxq-qtzthdj and prescription medicines only as told by your health care provider. ??? Keep all follow-up visits as told by your health care provider. This is important. This information is not intended to replace advice given to you by your health care provider. Make sure you discuss any questions you have with your health care provider. Document Revised: 04/24/2022 Document Reviewed: 04/24/2022 Elsevier Patient Education ?? 2022 [employer] Physician Outpatient Note * Josette Blanco, CFD ENGINEER: PERFORM Event Display: Office Clinic Note Physician Authored Date: [id number] EARL ESTRADA :1965 Age:58 years Sex:Female Visit Date:06/26/2023 Chief Complaint has had rash for 1 mo. Spreading all over body including chest, legs, eye, and fingers. PT states its very itchy and painful History of Present Illness Patient is a 58-year-old female who presents today with a chief complaint of worsening rash. ??Patient was evaluated approximately a month ago and had a mild??erythematous rash??to the right??flank. ??She was treated for cellulitis. ??She states??that she has continued to have spreading rash. ??States that it is now under her abdomen??and underneath her breast.?? She denies any fever chills or bodyaches.?? She is diabetic. Review of Systems see hpi Physical Exam Vitals & Measurements HR:??88??(Peripheral)?? BP:??196/116?? SpO2:??97%?? WT:??83.91??kg?? Erythematous, excoriated and blistering rash??under bilateral breasts, abdominal fold and groin Medical Decision Making: Patient was evaluated for worsening rash does appear to be fungal??in nature. ??Reports that her sugars have been elevated and she has been using a steroid cream which is probably been??making it progressively worse. ??She was provided fluconazole??and??clotrimazole cream. ??I did recommend that she follow-up with her primary care regarding increased blood sugar, blood pressure. Assessment/Plan 1.??Intertrigo??L30.4 Ordered: clotrimazole 1% topical cream, 1 ethan, Topical, BID, # 60 g, 0 Refill(s), Pharmacy: [id number], 165.1, cm, 09/28/22 9:13:00 EST, Height, 83.91, kg, 06/26/23 13:40:00 EST, Weight Dosing fluconazole 200 mg oral tablet, 200 mg = 1 tab, Oral, Daily, # 7 tab, 0 Refill(s), Pharmacy: [facility], 165.1, cm, 09/28/22 9:13:00 EST, Height, 83.91, kg, 06/26/23 13:40:00 EST, Weight Dosing ?? Patient Education Intertrigo Problem List/Past Medical History Ongoing Diabetes High cholesterol Hypertension Historical No qualifying data Medications Advil amlodipine-atorvastatin 10 mg-40 mg oral tablet, 1 tab, Oral, Daily cephalexin 500 mg oral capsule, 500 mg= 1 cap, Oral, QID clotrimazole 1% topical cream, 1 ethan, Topical, BID doxycycline hyclate 100 mg oral capsule, 100 [...] tobacco user Tobacco Use:. Electronically Signed on 06/26/23 08:03 PM Josette Blanco APRN Outpatient Summary note * Josette Blanco APRN: PERFORM Event Display: Ambulatory Patient Summary Authored Date: [id number] EARL ESTRADA :1965 Age:58 years Sex:Female Visit Date:06/26/2023 Ambulatory Visit Instructions We would like to thank you for allowing us to assist you with your healthcare needs. The following includes patient education materials and information regarding your injury/illness. Medications What How Much When Why Instructions New clotrimazole topical (clotrimazole 1% topical cream) 1 Application Topical (on the skin) 2 times a day Intertrigo Pickup at [place] [address] Changed fluconazole (fluconazole 200 mg oral tablet) 1 tab Oral (given by mouth) Every day Intertrigo Duration: 7 Days Pickup at [place] [address] Unchanged amlodipine-atorvastatin (amlodipine-atorvastatin 10 mg-40 mg oral tablet) 1 tab Oral (given by mouth) Every day Unchanged cephalexin (cephalexin 500 mg oral capsule) 1 Capsules Oral (given by mouth) 4 times a day Duration: 7 Days Unchanged doxycycline (doxycycline hyclate 100 mg oral capsule) 1 Capsules Oral (given by mouth) 2 times a day Lower respiratory tract infection Duration: 7 Days Unchanged hydroCHLOROthiazide (hydroCHLOROthiazide 25 [...] (valACYclovir 500 mg oral tablet) Pharmacy Information [facility]: [address], [place] [id number] [phone] Your Summary Your Diagnosis Intertrigo Problems Ongoing - Any problem that you are currently receiving treatment for. Diabetes High cholesterol Hypertension Your Care Team Attending Physician - Josette Blanco, GENE Discharge Vitals Heart Rate??(Peripheral) 88 Blood Pressure?? 196/116?? Weight?? 185.02 lb (83.91 kg) Allergies sulfa drugs Education Materials Intertrigo Intertrigo is skin irritation or inflammation (dermatitis) that occurs when folds of skin rub together. The irritation can cause a rash and make skin raw and itchy. This condition most commonly occurs in the skin folds of these areas: ? Toes. ? Armpits. ? Groin. ? Under the belly. ? Under the breasts. ? Buttocks. Intertrigo is not passed from person to person (is not contagious). What are the causes? This condition is caused by heat, moisture, rubbing (friction), and not enough air circulation. Thecondition can be made worse by: ? Sweat. ? Bacteria. ? A fungus, such as yeast. What increases the risk? This condition is more likely to occur if you have moisture in your skin folds. You are more likelyto develop this condition if you: ? Have diabetes. ? Are overweight. ? Are not able to move around or are not active. ? Live in a warm and moist climate. ? Wear splints, braces, or other medical devices. ? Are not able to control your bowels or bladder (have incontinence). What are the signs or symptoms? Symptoms of this condition include: ? A pink or red skin rash in the skin fold or near the skin fold. ? Raw or scaly skin. ? Itchiness. ? A burning feeling. ? Bleeding. ? Leaking fluid. ? A bad smell. How is this diagnosed? This condition is diagnosed with a medical history and physical exam. You may also have a skin swabto test for bacteria or a fungus. How is this treated? This condition may be treated by: ? Cleaning and drying your skin. ? Taking an antibiotic medicine or using an antibiotic skin cream for a bacterial infection. ? Using an antifungal cream on your skin or taking pills for an infection that was caused by a fungus, such as yeast. ? Using a steroid ointment to relieve itchiness and irritation. ? the skin fold with a clean cotton cloth to absorb moisture and allow air to flow into the area. Follow these instructions at home: ? Keep the affected area clean and dry. ? Do not scratch your skin. ? Stay in a cool environment as much as possible. Use an air conditioner or fan, if available. ? Apply yiyt-rjf-xvyefwz and prescription medicines only as told by your health care provider. ? If you were prescribed an antibiotic medicine, use it as told by your health care provider. Do not stop using the antibiotic even if your condition improves. ? Keep all follow-up visits as told by your health care provider. This is important. How is this prevented? Maintain a healthy weight. ? Take care of your feet, especially if you have diabetes. Foot care includes: ? Wearing shoes that fit well. ? Keeping your feet dry. ? Wearing clean, breathable socks. ? Protect the skin around your groin and buttocks, especially if you have incontinence. Skin protection includes: ? Following a regular cleaning routine. ? Using skin protectant creams, powders, or ointments. ? Changing protection pads frequently. ? Do not wear tight clothes. Wear clothes that are loose, absorbent, and made of cotton. ? Wear a bra that gives good support, if needed. ? Shower and dry yourself well after activity or exercise. Use a hair spring cutter on a cool setting to dry between skin folds, especially after you bathe. ? If you have diabetes, keep your blood sugar under control. Contact a health care provider if: ? Your symptoms do not improve with treatment. ? Your symptoms get worse or they spread. ? You notice increased redness and warmth. ? You have a fever. Summary ? Intertrigo is skin irritation or inflammation (dermatitis) that occurs when folds of skin rub together. ? This condition is caused by heat, moisture, rubbing (friction), and not enough air circulation. ? This condition may be treated by cleaning and drying your skin and with medicines. ? Apply bskt-bhl-zmsjizn and prescription medicines only as told by your health care provider. ? Keep all follow-up visits as told by your health care provider. This is important. This information is not intended to replace advice given to you by your health care provider. Make sure you discuss any questions you have with your health care provider. Document Revised: 04/24/2022 Document Reviewed: 04/24/2022 [employer] Patient Education ?? 2022 [employer] Electronically Signed on: 06/26/2023 13:48 ESTSigned by:BOOGIE
--- OUTSIDE RECORDS SUMMARY | 2023-07-12 13:53 | XMS_ITS | Continuity of Care Document ---
Author Name Unknown Organization [facility] Ambulatory Clinics Address [address] [place] [address] Encounter [facility] FIN NBR [id number] Date(s): 07/01/23 - 07/01/23 [facility] Ambulatory Clinics [address] [place], [place] [address] Encounter Diagnosis Rash(Discharge Diagnosis) - 07/01/23 Pruritic intertrigo(Discharge Diagnosis) - 07/01/23 Discharge Disposition: Home or Self Care Attending [...] QID, # 28 cap, 0 Refill(s), Pharmacy: [facility], 165.1, cm, 09/28/22 9:13:00 EST, Height Start Date: 06/05/23 Stop Date: 06/12/23 Status: Ordered clindamycin 300 mg oral capsule 300 mg = 1 cap, Oral, every 8 hr, # 21 cap, 0 Refill(s), [facility], 165.1, cm, 09/28/22 9:13:00 EST, Height, 83.91, kg, 06/26/23 13:40:00 EST, Weight Dosing Start Date: 07/01/23 Stop Date: 07/08/23 Status: Ordered clotrimazole 1% topical cream 1 ethan, Topical, BID, # 60 g, 0 Refill(s), Pharmacy: [facility] [id number], 165.1, cm, 09/28/22 9:13:00 EST, Height, 83.91, kg, 06/26/23 13:40:00 EST, Weight Dosing Start Date: 06/26/23 Status: Ordered Diflucan 200 mg oral tablet 200 mg = 1 tab, Oral, Daily, # 7 tab, 0 Refill(s), Pharmacy: [facility] [id number], 165.1, cm, 09/28/22 9:13:00 EST, Height, 83.91, kg, 06/26/23 13:40:00 EST, Weight Dosing Start Date: 07/01/23 Stop Date: 07/08/23 Status: Ordered doxycycline hyclate 100 mg oral capsule 100 mg = 1 cap, Oral, BID, # 14 cap, 0 Refill(s), Pharmacy: [facility] [id number] Start Date: 04/20/23 Stop Date: 04/27/23 Status: Ordered fluconazole 200 mg oral tablet 200 mg = 1 tab, Oral, Daily, # 7 tab, 0 Refill(s), Pharmacy: [facility] [id number], 165.1, cm, 09/28/22 9:13:00 EST, Height, 83.91, [...] for itching, # 15 cap,0 Refill(s), Pharmacy: [facility] [address], 165.1, cm, 09/28/22 9:13:00 EST, Height, 83.91, [...] TID, # 30 g, 2 Refill(s), Pharmacy: [facility], 165.1, cm, 09/28/22 9:13:00 [...] 1 Temperature Tympanic [36.6-38.1 Deg C] 3 6.8 Deg C (07/01/23 1:42 PM) Peripheral Pulse Rate [60-100 bpm] 84 bp m (07/01/23 1:42 PM) Blood Pressure [90-140/60-90 mmHg] 162/1 03mmHg *HI* (07/01/23 1:42 PM) Mean Arterial Pressure, Cuff [70-110 mmH g] 123 mmHg *>HHI* (07/01/23 1:42 PM) Social History Social History Type Response Tobacco Never tobacco user T obacco Use:. Sex Hospital Discharge Instructions Patient Education 07/01/2023 13:35:56 Intertrigo, Vazt-jn-Outl Intertrigo Intertrigo is skin irritation (inflammation) that happens in warm, moist areas of the body. The irritation can cause a rash and make skin raw and itchy. The rash is usually pink or red. It happens mostly between folds of skin or where skin rubs together, such as: ??? Between the toes. ??? In the armpits. ??? In the groin area. ??? Under the belly. ??? Under the breasts. ??? Around the butt area. This condition is not passed from person to person (is not contagious). What are the causes? Heat, moisture, rubbing, and not enough air movement. ??? The condition can be made worse by: ??? Sweat. ??? Bacteria. ??? A fungus, such as yeast. What increases the risk? Moisture in your skin folds. ??? You are more likely to develop this condition if you: ??? Have diabetes. ??? Are overweight. ??? Are not able to move around. ??? Live in a warm and moist climate. ??? Wear splints, braces, or other medical devices. ??? Are not able to control your pee (urine) or poop (stool). What are the signs or symptoms? A pink or red skin rash in the skin fold or near the skin fold. ??? Raw or scaly skin. ??? Itching. ??? A burning feeling. ??? Bleeding. ??? Leaking fluid. ??? A bad smell. How is this treated? Cleaning and drying your skin. ??? Taking an antibiotic medicine or using an antibiotic skin cream for a bacterial infection. ??? Using an antifungal cream on your skin or taking pills for an infection that was caused by a fungus, such as yeast. ??? Using a steroid ointment to stop the itching and irritation. ??? the skin fold with a clean cotton cloth to absorb moisture and allow air to flow into the area. Follow these instructions at home: ??? Keep the affected area clean and dry. ??? Do not scratch your skin. ??? Stay cool as much as you can. Use an air conditioner or a fan, if you have one. ??? Apply ynta-ihj-ehcetdi and prescription medicines only as told by your doctor. ??? If you were prescribed an antibiotic medicine, use it as told by your doctor. Do not stop usingthe antibiotic even if your condition starts to get better. ??? Keep all follow-up visits as told by your doctor. This is important. How is this prevented? Stay at a healthy weight. ??? Take care of your feet. This is very important if you have diabetes. You should: ??? Wear shoes that fit well. ??? Keep your feet dry. ??? Wear clean cotton or wool socks. ??? Protect the skin in your groin and butt area as told by your doctor. To do this: ??? Follow a regular cleaning routine. ??? Use creams, powders, or ointments that protect your skin. ??? Change protection pads often. ??? Do not wear tight clothes. Wear clothes that: ??? Are loose. ??? Take moisture away from your body. ??? Are made of cotton. ??? Wear a bra that gives good support, if needed. ??? Shower and dry yourself well after being active. Use a criminal justice department chair on a cool setting to dry between skin folds. ??? Keep your blood sugar under control if you have diabetes. Contact a doctor if: ??? Your symptoms do not get better with treatment. ??? Your symptoms get worse or they spread. ??? You notice more redness and warmth. ??? You have a fever. Summary ??? Intertrigo is skin irritation that occurs when folds of skin rub together. ??? This condition is caused by heat, moisture, and rubbing. ??? This condition may be treated by cleaning and drying your skin and with medicines. ??? Apply otfl-jmr-xzfyuau and prescription medicines only as told by your doctor. ??? Keep all follow-up visits as told by your doctor. This is important. This information is not intended to replace advice given to you by your health care provider. Make sure you discuss any questions you have with your health care provider. Document Revised: 04/24/2022 Document Reviewed: 04/24/2022 [facility] Patient Education ?? 2022 [employer]. Physician Outpatient Note * Clotilde Castillo PA-C: PERFORM Event Display: Office Clinic Note Physician Authored Date: [id number] EARL ESTRADA :1965 Age:58 years Sex:Female Visit Date:07/01/2023 Chief Complaint Severe rash all over her body. Pustles have formed - patient popped them. Significant itchiness andshe states she is in pain. 6 weeks History of Present Illness This is a 58-year-old female??with past medical history of diabetes??who presents??for evaluation of ongoing rash.?? Patient has been seen??twice here and twice??at another hospital??for this rash??over the past month and a half.?? It began as an inflamed pustule in the right lower abdomen.?? She was prescribed cephalexin for possible cellulitis.?? She notes at that time she was becoming covered with neomycin and a bandage.?? Symptoms did not improve and the rash has been rapidly spreading since.?? She reports that it is burning, itchy, painful. ??It is??in between and under her bilateral breast, radiating up to her neck and now onto her face. ??She also??has the rash in the inguinal??and infra abdominal folds.?? She was most recently seen 5 days ago and put on a 7-day course of Diflucan and??topical clotrimazole for presumed??intertrigo.?? She notes that she has not seen any improvement on this regimen and symptoms are worsening and spreading.?? She denies fever, chills, nausea, vomiting, body aches, weakness.?? So far she has been treated with oral and topical antibiotics, oral and topical anti and fungals without improvement.?? Patient is a diabetic, has not been to a doctor jenelle year as??they refused to see her as she is behind on payment. ??She has been??taking her medications for diabetes.?? Her blood sugar readings have recently been between??120 and 170. Physical Exam Vitals & Measurements T:??36.8?C ??(Tympanic)?? HR:??84??(Peripheral)?? BP:??162/103?? SpO2:??98%?? General: Alert and oriented x 3, no acute distress, well-nourished and hydrated Skin: severe eruption of??erythematous, well-demarcated, shiny??plaques in between and under the breasts,??under the??abdominal pad,??in the inguinal creases.?? There are several of diffuse erythematous??satellite??papules near the skin folds, sparing the mid abdomen,??with evidence of excoriation.?? Several inflamed pustules noted. Assessment/Plan 1.??Pruritic intertrigo??L30.4 Patient presenting for follow-up of ongoing rash that has been present for 1-1/2 months.?? She has been treated with??antibiotics,??topical steroids,??oral and topical antifungals without improvement.?? She has been on a course of??Diflucan daily and topical clotrimazole??but notes that the rash isonly been worsening and spreading.?? Given lack of improvement??with antifungals for presumed intert jose e,??I did recommend a biopsy??today which she was receptive to. ??A single 4 mm punch biopsy wasperformed. ??See procedure note below.?? A CBC, metabolic panel??were drawn??which showed high eosinophil count but normal WBC, red blood cells, hemoglobin, hematocrit, platelets.?? Metabolic panel shows normal creatinine, slightly elevated alk phos but normal AST/ALT.?? I did send for an BIRDIE with reflex??to rule out??dermatomyositis.?? I will follow-up with patient pending the results of her biopsy and BIRDIE. ??In the meantime, we will prolong her course of Diflucan??for another 7 days and switch her to topical nystatin ointment.?? Given she does have several inflamed pustules??I would like tocover her for secondary??bacterial infection as well and a prescription for clindamycin was sent.??I sent a prescription for hydroxyzine for her to take??as needed for itching. ??Caution patient that this medication can be sedating??and advise she only take in the evening if this is the case and never while working or driving.?? Stressed the importance of her keeping the areas clean and dry. ??Recommended use of an antifungal powder??after bathing.?? Patient understands to follow-up for any acutely worsening symptoms, fever, malaise.?? Encouraged she establish with primary care for ongoing management of her diabetes and hypertension. Ordered: clindamycin 300 mg oral capsule, 300 mg = 1 cap, Oral, every 8 hr, # 21 cap, 0 Refill(s), Pharmacy:[facility], 165.1, cm, 09/28/22 9:13:00 EST, Height, 83.91, kg, 06/26/23 13:40:00 EST, Weight Dosing Diflucan 200 mg oral tablet, 200 mg = 1 tab, Oral, Daily, # 7 tab, 0 Refill(s), Pharmacy: [facility] [address], 165.1, cm, 09/28/22 9:13:00 EST, Height, 83.91, kg, 06/26/23 13:40:00 EST, Weight Dosing hydrOXYzine pamoate 25 mg oral capsule, See Instructions, PRN as needed for itching, 1 cap prn up to 3 times per day for itching, # 15 cap, 0 Refill(s), Pharmacy: [facility] [address], 165.1, cm, 09/28/22 9:13:00 EST, Height, 83.91, kg, 06/26/23 13:40:00 EST, Weight Dosing nystatin 100,000 units/g topical ointment, 1 ethan, Topical, TID, # 30 g, 2 Refill(s), Pharmacy: [facility] [address], 165.1, cm, 09/28/22 9:13:00 EST, Height, 83.91, kg, 06/26/23 13:40:00 EST, WeightDosing ?? 2.??Rash??R21 Ordered: clindamycin 300 mg oral capsule, 300 mg = 1 cap, Oral, every 8 hr, # 21 cap, 0 Refill(s), Pharmacy:[facility] [address], 165.1, cm, 09/28/22 9:13:00 EST, Height, 83.91, kg, 06/26/23 13:40:00 EST, Weight Dosing Diflucan 200 mg oral tablet, 200 mg = 1 tab, Oral, Daily, # 7 tab, 0 Refill(s), Pharmacy: [facility] [address], 165.1, cm, 09/28/22 9:13:00 EST, Height, 83.91, kg, 06/26/23 13:40:00 EST, Weight Dosing hydrOXYzine pamoate 25 mg oral capsule, See Instructions, PRN as needed for itching, 1 cap prn up to 3 times per day for itching, # 15 cap, 0 Refill(s), Pharmacy: [facility] [address], 165.1, cm, 09/28/22 9:13:00 EST, Height, 83.91, kg, 06/26/23 13:40:00 EST, Weight Dosing nystatin 100,000 units/g topical ointment, 1 ethan, Topical, TID, # 30 g, 2 Refill(s), Pharmacy: [facility], 165.1, cm, 09/28/22 9:13:00 EST, Height, 83.91, kg, 06/26/23 13:40:00 EST, WeightDosing BIRDIE w/Reflex LC, Blood, Routine, Collected, 07/01/23 13:58:00 EST, by LTTLUC, Once, Lab Collect, Rash Pathology Request, AP Specimen, Routine Collect, 07/01/23, Once, Nurse collect, Print Label, Rash, Order for future visit ?? Patient Instructions We obtained a biopsy of your rash today. ??I will follow-up with you pending these results.?? In the meantime, I am recommending that we??prolong your course of Diflucan to 200 mg once daily for 7 days.?? I have also sent in a prescription for topical nystatin cream??that you can apply 3 times a day to the affected areas.?? I??also am recommending that we put you on an oral antibiotic??due to??the pustules and concern for secondary infection.?? I sent a prescription for hydroxyzine, which can be used for itching. ??I recommend taking this at nighttime as it can be a bit sedating. ??If you do not feel tired on it you can take during the daytime up to 3 times a day. ??We alexus blood work todayto evaluate your blood counts, kidney function, liver function, and to assess for possible autoimmune disease.?? I will follow-up with you pending these results.?? In the meantime, please try to keepthe areas clean and dry. ??You can use an doev-fwd-edaiauh powder??such as antifungal Goldbond to keep the areas dry.?? Continue to take your??medications for diabetes.?? We will follow-up pending test results, for any new or worsening symptoms please return for recheck Future Orders Pathology Request, AP Specimen, Routine Collect, 07/01/23, Once, Nurse collect, Print Label, Rash, Order for future visit Patient Education Intertrigo, Eunx-gi-Bhbv Problem List/Past Medical History Ongoing Diabetes High [...] ointment, 1 ethan, Topical, TID, 2 refills valACYclovir 500 mg oral tablet Allergies sulfa drugs Social History Electronic Cigarette/Vaping Electronic Cigarette Use: Never. Tobacco Never tobacco user Tobacco Use:. Electronically Signed on 07/01/23 03:01 PM Clotilde Castillo PA-C Outpatient Summary note * Clotilde Castillo PA-C: PERFORM Event Display: Ambulatory Patient Summary Authored Date: [id number] EARL ESTRADA :1965 Age:58 years Sex:Female Visit Date:07/01/2023 Ambulatory Visit Instructions We would like to thank you for allowing us to assist you with your healthcare needs. The following includes patient education materials and information regarding your injury/illness. Your Next Steps Instructions From Your Care Team We obtained a biopsy of your rash today. ??I will follow-up with you pending these results.?? In the meantime, I am recommending that we??prolong your course of Diflucan to 200 mg once daily for 7 days.?? I have also sent in a prescription for topical nystatin cream??that you can apply 3 times a day to the affected areas.?? I??also am recommending that we put you on an oral antibiotic??due to??the pustules and concern for secondary infection.?? I sent a prescription for hydroxyzine, which can be used for itching. ??I recommend taking this at nighttime as it can be a bit sedating. ??If you do not feel tired on it you can take during the daytime up to 3 times a day. ??We alexus blood work todayto evaluate your blood counts, kidney function, liver function, and to assess for possible autoimmune disease.?? I will follow-up with you pending these results.?? In the meantime, please try to keepthe areas clean and dry. ??You can use an zore-oho-hngoqqe powder??such as antifungal Goldbond to keep the areas dry.?? Continue to take your??medications for diabetes.?? We will follow-up pending test results, for any new or worsening symptoms please return for recheck You Need to Complete the Following Pathology Request, AP Specimen, Routine Collect, 07/01/23, Once, Nurse collect, Print Label, Rash, Order for future visit Medications What How Much When Why Instructions Unchanged amlodipine-atorvastatin (amlodipine-atorvastatin 10 mg-40 mg oral tablet) 1 tab Oral (given by mouth) Every day Unchanged cephalexin (cephalexin 500 mg oral capsule) 1 Capsules Oral (given by mouth) 4 times a day Duration: 7 Days Unchanged clotrimazole topical (clotrimazole 1% topical cream) 1 Application Topical (on the skin) 2 times a day Intertrigo Unchanged doxycycline (doxycycline hyclate 100 mg oral capsule) 1 Capsules Oral (given by mouth) 2 times a day Lower respiratory tract infection Duration: 7 Days Unchanged fluconazole (fluconazole 200 [...] mg oral tablet) Your Summary Your Diagnosis Pruritic intertrigo Rash Problems Ongoing - Any problem that you are currently receiving treatment for. Diabetes High cholesterol Hypertension Your Care Team Attending Physician - Clotilde Castillo PA-C Discharge Vitals Temperature??(Tympanic) 98.2 ??F (36.8 ??C) Heart Rate??(Peripheral) 84 Blood Pressure?? 162/103?? Allergies sulfa drugs Education Materials Intertrigo Intertrigo is skin irritation (inflammation) that happens in warm, moist areas of the body. The irritation can cause a rash and make skin raw and itchy. The rash is usually pink or red. It happens mostly between folds of skin or where skin rubs together, such as: ? Between the toes. ? In the armpits. ? In the groin area. ? Under the belly. ? Under the breasts. ? Around the butt area. This condition is not passed from person to person (is not contagious). What are the causes? Heat, moisture, rubbing, and not enough air movement. ? The condition can be made worse by: ? Sweat. ? Bacteria. ? A fungus, such as yeast. What increases the risk? Moisture in your skin folds. ? You are more likely to develop this condition if you: ? Have diabetes. ? Are overweight. ? Are not able to move around. ? Live in a warm and moist climate. ? Wear splints, braces, or other medical devices. ? Are not able to control your pee (urine) or poop (stool). What are the signs or symptoms? A pink or red skin rash in the skin fold or near the skin fold. ? Raw or scaly skin. ? Itching. ? A burning feeling. ? Bleeding. ? Leaking fluid. ? A bad smell. How is this treated? Cleaning and drying your skin. ? Taking an antibiotic medicine or using an antibiotic skin cream for a bacterial infection. ? Using an antifungal cream on your skin or taking pills for an infection that was caused by a fungus, such as yeast. ? Using a steroid ointment to stop the itching and irritation. ? the skin fold with a clean cotton cloth to absorb moisture and allow air to flow into the area. Follow these instructions at home: ? Keep the affected area clean and dry. ? Do not scratch your skin. ? Stay cool as much as you can. Use an air conditioner or a fan, if you have one. ? Apply edyb-kau-fzqnliz and prescription medicines only as told by your doctor. ? If you were prescribed an antibiotic medicine, use it as told by your doctor. Do not stop using theantibiotic even if your condition starts to get better. ? Keep all follow-up visits as told by your doctor. This is important. How is this prevented? Stay at a healthy weight. ? Take care of your feet. This is very important if you have diabetes. You should: ? Wear shoes that fit well. ? Keep your feet dry. ? Wear clean cotton or wool socks. ? Protect the skin in your groin and butt area as told by your doctor. To do this: ? Follow a regular cleaning routine. ? Use creams, powders, or ointments that protect your skin. ? Change protection pads often. ? Do not wear tight clothes. Wear clothes that: ? Are loose. ? Take moisture away from your body. ? Are made of cotton. ? Wear a bra that gives good support, if needed. ? Shower and dry yourself well after being active. Use a criminal justice department chair on a cool setting to dry between skin folds. ? Keep your blood sugar under control if you have diabetes. Contact a doctor if: ? Your symptoms do not get better with treatment. ? Your symptoms get worse or they spread. ? You notice more redness and warmth. ? You have a fever. Summary ? Intertrigo is skin irritation that occurs when folds of skin rub together. ? This condition is caused by heat, moisture, and rubbing. ? This condition may be treated by cleaning and drying your skin and with medicines. ? Apply ltan-gnc-ndvfhwt and prescription medicines only as told by your doctor. ? Keep all follow-up visits as told by your doctor. This is important. This information is not intended to replace advice given to you by your health care provider. Make sure you discuss any questions you have with your health care provider. Document Revised: 04/24/2022 Document Reviewed: 04/24/2022 [employer] Patient Education ?? 2022 [facility] Electronically Signed on: 07/01/2023 14:39 ESTSigned by:OLVIN Patient Care team information Care Team Related Persons Name: TRACI ESTRADA Name: TRACI ESTRADA
[2023-07-12] MEDS: Lidocaine/Epinephri/Tetracaine Topical Gel 3 ML (14:21)
[2023-07-12 14:27] VITALS: BP 209/137; PULSE 86; RESP 18; TEMP 37.1; O2SAT 99
--- NOTE | 2023-07-12 14:38 | ED.GENADUL_ITS ---
Discharge Plan Disposition Patient Disposition: Home Discharge Details Clinical Impression: Cellulitis of chin Primary Care Provider: Danisha Johnson ED Provider: Dorian Almanzar Home Meds and New Rx's Prescriptions: New clindamycin HCl 150 mg capsule 450 mg PO Q6H 7 Days Qty: 84 0RF No Action fluticasone propionate [Flonase Allergy Relief] 50 mcg/actuation spray,suspension 1 spray intranasal DAILY Qty: 16 0RF Patient Comments: pt states not taking any of her meds because she cant see her PCP Rx Instructions: administer into each nostril clotrimazole 1 % cream 1 applic topical BID 28 Days Qty: 30 0RF (DME) blood-glucose meter [Easy Touch Glucose Monitor] Misc MISCELLANEOUS Patient Comments: Use 1 unit as directed four times a day (DME) Easy Touch Test Strip Strip MISCELLANEOUS Patient Comments: Use 1 strip via meter four times a day acetaminophen [Tylenol] 325 mg Tablet 650 mg PO Q4H PRN PRNQty: 0 0RF Patient Comments: pt states not taking any of her meds because she cant see her PCP ibuprofen [Ibuprofen IB] 200 mg Tablet 400 mg PO QID PRNQty: 0 0RF Patient Comments: pt states not taking any of her meds because she cant see her PCP atenolol 50 MG tablet 50 mg PO DAILY Qty: 30 0RF Patient Comments: pt states not taking any of her meds because she cant see her PCP hydrochlorothiazide 25 mg tablet 25 mg PO DAILY Qty: 30 1RF insulin glargine [Lantus Solostar U-100 Insulin] 100 unit/mL (3 mL) insulin pen 15 unit subcut HS Qty: 15 0RF metformin 1,000 mg tablet 1,000 mg PO BID Qty: 60 0RF Discharge Instructions Instructions: Cellulitis (ED) Additional Instructions: At this time you have evidence of a bacterial infection on your chin still. Please continue to take Tylenol and Motrin for pain. You can take 1000 mg of Tylenol every 6 hours and 800 mg of Motrin every 6 hours. These are the maximum doses. We are increasing your antibiotic dose. I have sent a new prescription to your pharmacy. Please stop taking the old clindamycin prescription/dosing, and instead take this new dose. It will be 450 mg of clindamycin (3 tabs) every 6 hours. If you notice any worsening of your symptoms, or any new symptoms such as vomi ting, diarrhea, fever, chills, shortness of breath, chest pain, numbness, weakness, or fainting , please return immediately to the emergency department for reevaluation. Please follow up with your primary care provider as soon as possible for reassessment and reevaluation. As always, it was a pleasure participating in your medical care today. Referrals: Danisha Johnson [Primary Care Provider] - Discharge Data Discharge Date/Time-TO BE ENTERED AT DEPARTURE: 07/12/23 15:10 Medical Decision Making 58-year-old female with a past medical history of hypertension, type 2 diabetes, GERD, who presents today for a lesion on her chin. Patient states that she initially had rash all over her which started around 4 to 8 weeks ago, which was treated with clindamycin for 2 days, and then transitioned to prednisone. This was done at [facility]. During that time she developed a lesion on her chin, it has been present for the last 4 to 7 days. 4 days ago she went to the [facility] urgent [facility] again and had it lanced there. Per patient report there was no pus, but there was some blood. She was started on clindamycin, 300 mg every 6 hours. Since then she has had continued pain, but no real improvement of the redness or swelling. She presents for reassessment. She has been taking the antibiotic for the last 4 days as prescribed. She denies difficulty swallowing or drinking. No fever or chills. She has been taking Tylenol and Motrin but this has not been helping. No other complaints at this time. No other modifying factors. Exam demonstrates evidence of cellulitis on the chin, as well as a small area of purulence at the center of the chin. It is mildly firm and tender. Bedside ultrasound does not show evidence of large fluid collection or pocket. There is some mild cobblestoning on ultrasound. Discussed risks and benefits of removal of the purulent component. The area had let applied and sat for about 20 to 30 minutes. After this the superficial component was gently scraped off with an 11 blade, small amount of purulence was noted. This was swabbed and sent for culture. I did offer to incise with an 11 blade or 18-gauge, however patient declined. With no large fluid pocket noted on ultrasound I do not see further instrumentation being overly beneficial. I do feel that higher clindamycin dose is appropriate at this time. Will recommend 450 mg every 6 hours. Patient has been given 4 tablets of oxycodone for home use for pain as needed as she states she is having moderate pain. No current concerning evidence to suggest Ludewig's angina, oropharyngeal airway compromise or other concerning abnormalities. Discussed red flags for which to return. I have extensively reviewed the treatment plan and discharge instructions with the patient. I have addressed all patient concerns at this time. The patient was made aware of what symptoms to monitor for that would warrant a return to the emergency department. Discussed the plan with the patient, they demonstrate verbal understanding and agreement with our assessment and plan at this time. The documentation in this chart was dictated using [employer] dictation software. Please excuse any dictation errors. HPI General Date/Time Provider Initiated Documentation: 07/12/23 14:03 . HPI Narrative: 58-year-old female with a past medical history of hypertension, type 2 diabetes, GERD, who presents today for a lesion on her chin. Patient states that she initially had rash all over her which started around 4 to 8 weeks ago, which was treated with clindamycin for 2 days, and then transitioned to prednisone. This was done at [facility]. During that time she developed a lesion on her chin, it has been present for the last 4 to 7 days. 4 days ago she went to the [facility] urgent [facility] again and had it lanced there. Per patient report there was no pus, but there was some blood. She was started on clindamycin, 300 mg every 6 hours. Since then she has had continued pain, but no real improvement of the redness or swelling. She presents for reassessment. She has been taking the antibiotic for the last 4 days as prescribed. She denies difficulty swallowing or drinking. No fever or chills. She has been taking Tylenol and Motrin but this has not been helping. No other complaints at this time. No other modifying factors. Related Data Home Medications Medication Instructions Recorded Confirmed acetaminophen 325 mg tablet 650 mg (2 x 325 mg) PO Q4H PRN PRN 11/29/18 07/12/23 (Tylenol) #0 tabs atenolol 50 mg tablet 50 mg PO DAILY #30 tabs 11/29/18 07/12/23 ibuprofen 200 mg tablet (Ibuprofen 400 mg (2 x 200 mg) PO QID PRN #0 11/29/18 07/12/23 IB) tabs fluticasone propionate 50 1 spray intranasal DAILY #16 grams 11/22/21 07/12/23 mcg/actuation nasal spray,suspension (Flonase Allergy Relief) hydrochlorothiazide 25 mg tablet 25 mg PO DAILY #30 tabs 01/26/23 07/12/23 clotrimazole 1 % topical cream 1 applic topical BID 4 weeks #30 06/17/23 07/12/23 grams insulin glargine 100 unit/mL (3 15 unit (0.15 mL) subcut HS #15 mL 06/19/23 1 09/12/22 mL) subcutaneous pen (Lantus Solostar U-100 Insulin) metformin 1,000 mg tablet 1,000 mg PO BID #60 tabs 06/19/23 07/12/23 blood sugar diagnostic (Easy Touch 07/12/23 07/12/23 Test Strip) blood-glucose meter (Easy Touch 07/12/23 07/12/23 Glucose Monitor) clindamycin HCl 150 mg capsule 450 mg (3 x 150 mg) PO Q6H 7 days 07/12/23 #84 caps Previous Rx's Medication Instructions Recorded acetaminophen 325 mg tablet 650 mg (2 x 325 mg) PO Q4H PRN PRN 11/29/18 (Tylenol) #0 tabs atenolol 50 mg tablet 50 mg PO DAILY #30 tabs 11/29/18 ibuprofen 200 mg tablet (Ibuprofen 400 mg (2 x 200 mg) PO QID PRN #0 11/29/18 IB) tabs fluticasone propionate 50 1 spray intranasal DAILY #16 grams 11/22/21 mcg/actuation nasal spray,suspension (Flonase Allergy Relief) hydrochlorothiazide 25 mg tablet 25 mg PO DAILY #30 tabs 01/26/23 clotrimazole 1 % topical cream 1 applic topical BID 4 weeks #30 06/17/23 grams insulin glargine 100 unit/mL (3 15 unit (0.15 mL) subcut HS #15 mL 06/19/23 mL) subcutaneous pen (Lantus Solostar U-100 Insulin) metformin 1,000 mg tablet 1,000 mg PO BID #60 tabs 06/19/23 clindamycin HCl 150 mg capsule 450 mg (3 x 150 mg) PO Q6H 7 days 07/12/23 #84 caps Allergies Allergy/AdvReac Type Severity Reaction Status Date / Time Sulfa (Sulfonamide Allergy Hives Verified 07/12/23 14:32 Antibiotics) General Stated Complaint: Cellulitis NELSY: 4 Review of Systems All systems reviewed & are unremarkable except as noted in HPI and below PFSH All Active Problems Cellulitis of chin (Acute) Left ACL tear (Acute) Acute hyperglycemia (Acute) Tinea corporis (Acute) Tinea corporis (Acute) Tear of medial meniscus of left knee (Acute ~04/27/23) Lumbago without sciatica (Acute) CAP (community acquired pneumonia) (Acute) Apnea (Acute) Non compliance w medication regimen (Acute) Screening for colon cancer (Acute) GERD (gastroesophageal reflux disease) (Chronic) Type 2 diabetes mellitus (Acute) Constipation (Acute) Erythema multiforme (Acute) Chronic headaches (Acute) Sleeping difficulties (Acute) Benign paroxysmal vertigo (Acute) Arm numbness (Acute) Bilateral carpal tunnel syndrome (Acute) Pulmonary hypertension (Chronic) Diastolic dysfunction (Chronic) Atypical chest pain (Chronic) Herniated nucleus pulposus, C5-6 right (Acute) Diabetes mellitus type 2 in obese (Chronic) Essential hypertension (Chronic) Hypertensive urgency (Acute) Medical History History of depression Herpes simplex Insomnia Complicated grief Early satiety Obesity BPPV (benign paroxysmal positional vertigo) Diabetes mellitus Hypertension Surgical History History of tubal ligation Family History Mother Heart disease Ovarian cancer Social History Smoking/Tobacco Use Status: Never Smoking risk assessment performed?: Yes Alcohol Intake: current Alcohol Intake frequency: holidays/special occasions only Drug use: Never Substance use type: does not use Household members: spouse Housing: house Number of Children: 5 What is your relationship status?: Panel score (0-1 are the most socially isolated patients): 1 Seatbelt use: always Do you feel safe at home: Yes Do you feel safe in your relationship?: Yes History History 6 Para 5 Hx # Term Pregnancies Multiple births Hx # Pregnancies Ectopic pregnancies AB induced Hx Number of Living Children AB spontaneous Exam Narrative Exam Narrative: 1.Const: Well-nourished, Well-developed, appearing stated age 2.Eyes: PERRL, no conjunctival injection, and symmetrical lids. 3.ENT: Atraumatic external nose and ears. Moist MM. Neck: Symmetric, trachea midline, No thyromegaly. 4.CVS: +S1/S2, No murmurs or gallops. Peripheral pulses 2+ and equal in all extremities. Brisk capillary refill in all extremities. 5.RESP: Unlabored respiratory effort. Clear to auscultation bilaterally. No wheezes rales or rhonchi 6.GI: Soft, Nontender/Nondistended, No hepatosplenomegaly. No guarding or rebound. 7.MSK: Normocephalic/Atraumatic, Extremities w/o deformity or ttp No cyanosis or clubbing, Normal movement of all extremities 8.Skin: Patient's chin demonstrates an area of erythema with a slight purulent center diameter is roughly 2 and half centimeters. Bedside ultrasound shows no large fluid collection. There is cobblestoning on the chin though. No extension under the tongue. No evidence of Ludewig's angina. No swelling or edema in the neck. 9.Neuro: wall taper helper II-XII grossly intact. Sensation grossly intact, no focal neurologic deficits. 10.Psych: (AAO) x3. Appropriate mood and affect Course Vital Signs Vital signs: Vital Signs Temperature 37.1 C 07/12/23 13:44 Pulse 86 07/12/23 13:44 Respiratory Rate 18 07/12/23 13:44 Blood Pressure 209/137 H 07/12/23 13:44 Pulse Oximetry 99 07/12/23 13:44 Temperature 37.1 C 07/12/23 14:27 Pulse 86 07/12/23 14:27 Respiratory Rate 18 07/12/23 14:27 Respiratory Effort Normal, Non-Labored 07/12/23 14:25 Blood Pressure 209/137 H 07/12/23 14:27 Blood Pressure Position Sitting 07/12/23 14:27 Pulse Oximetry 99 07/12/23 14:27 Oxygen Delivery Method Room Air 07/12/23 14:27 Oxygen Flow Rate 0 07/12/23 14:27 Pain Level 10 07/12/23 14:27 Comment has not taken BP medication for a couple of days 07/12/23 14:27 Procedures Abscess I/D Site: Face Technique: Incised with #11 Blade Amount of fluid expressed (mL): 0.5 Irrigation: No Packing used?: None
[2023-07-12 14:43] VITALS: BP 220/140
[2023-07-12] MEDS: Clindamycin 150 MG CAP, 12 CAPS/BTL 450 MG PO (15:08)
--- NOTE | 2023-07-14 10:51 | NUR.NOTE ---
Accessed pt chart to determine antibiotic given to patient on discharge for culture result. Nursing Note:
== END 2023-07-12 15:10 | disposition home or self-care (01) ==
PROVIDERS: Emergency Provider Student in an Organized Health Care Education/Training Program; PCP Nurse Practitioner Family
DX: L03.211 Cellulitis of face (principal); E11.9 Type 2 diabetes mellitus without complications; I10 Essential (primary) hypertension; Z79.4 Long term (current) use of insulin; Z79.84 Long term (current) use of oral hypoglycemic drugs
CPT/HCPCS: 87077; 99282; 99283; 87070; 87186; 87205

== ENCOUNTER 2024-02-17 09:20 | Emergency (ER) | payer SELFPAY ==
[2024-02-17] VITALS (17 sets, daily range): BP systolic 161–195; BP diastolic 72–109; PULSE 72–93; RESP 18–20; TEMP 35.7–36.6; O2SAT 92–98
--- OUTSIDE RECORDS SUMMARY | 2024-02-17 09:34 | XMS_ITS | Continuity of Care Document ---
Author Organization [facility] Address [address] [place] [address] Encounter LTTL_SC FIN NBR [id number] Date(s): 07/13/23 - 07/13/23 [facility] [address] [place] [address]- Encounter Diagnosis MRSA cellulitis(Discharge Diagnosis) - 07/13/23 Methicillin resistant Staphylococcus aureus infection as the cause of diseases classified elsewhere(Discharge Diagnosis) - 07/13/23 Discharge Disposition: Home or Self Care Attending Physician: Jim Beal MD Admitting Physician: Jim Beal MD Allergies, Adverse Reactions, Alerts Substance Reaction Severity Status Triple Antibiotic Unknown Active sulfa drugs Unknown Active Assessment and Plan Future Scheduled Tests Laboratory* Pathology Request 07/01/23 Medications Advil 0 Refill(s) Start Date: 09/28/22 Status: Ordered amlodipine-atorvastatin 10 mg-40 mg oral tablet 1 tab, Oral, Daily, # 30 tab, 0 Refill(s) Start Date: 09/28/22 Status: Ordered cephalexin 500 mg oral capsule 500 mg = 1 cap, Oral, QID, # 28 cap, 0 Refill(s), Pharmacy: [facility], 165.1, cm, 09/28/22 9:13:00 EST, Height Start Date: 06/05/23 Stop Date: 06/12/23 Status: Ordered clindamycin 300 mg oral capsule 300 mg = 1 cap, Oral, every 8 hr, # 21 cap, 0 Refill(s), Pharmacy: [facility], 165.1, cm, 09/28/22 9:13:00 EST, Height, 83.91, kg, 06/26/23 13:40:00 EST, Weight Dosing Start Date: 07/01/23 Stop Date: 07/08/23 Status: Ordered clotrimazole 1% topical cream 1 ethan, Topical, BID, # 60 g, 0 Refill(s), Pharmacy: [facility] [id number], 165.1, cm, 09/28/22 9:13:00 EST, Height, 83.91, kg, 06/26/23 13:40:00 EST, Weight Dosing Start Date: 06/26/23 Status: Ordered Diflucan 200 mg oral tablet 200 mg = 1 tab, Oral, Daily, # 7 tab, 0 Refill(s), Pharmacy: [facility] [id number], 165.1, cm, 09/28/22 9:13:00 EST, Height, 83.91, kg, 06/26/23 13:40:00 EST, Weight Dosing Start Date: 07/01/23 Stop Date: 07/08/23 Status: Ordered doxycycline hyclate 100 mg oral capsule 100 mg = 1 cap, Oral, BID, # 14 cap, 0 Refill(s), Pharmacy: [facility] [id number] Start Date: 04/20/23 Stop Date: 04/27/23 Status: Ordered doxycycline hyclate 100 mg oral tablet 100 mg = 1 tab, Oral, BID, X 14 days, # 28 tab, 0 Refill(s), 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, Pharmacy: [facility] [id number], 167, cm, 07/13/23 10:15:00 EST, Height, 83.91, kg, 07/13/23 10:20:00 EST, Weight Dosing Start Date: 07/13/23 Stop Date: 07/27/23 Status: Ordered fluconazole 200 mg oral tablet 200 mg = 1 tab, Oral, Daily, # 7 tab, 0 Refill(s), Pharmacy: [facility] [id number], 165.1, cm, 09/28/22 9:13:00 EST, Height, 83.91, [...] for itching, # 15 cap,0 Refill(s), Pharmacy: [facility], 165.1, cm, 09/28/22 9:13:00 EST, [...] TID, # 30 g, 2 Refill(s), Pharmacy: [facility], 165.1, cm, 09/28/22 9:13:00 EST, Height, 83.91, kg, 06/26/23 13:40:00 EST, Weight Dosing Start Date: 07/01/23 Stop Date: 09/02/23 Status: Ordered oxyCODONE 5 mg oral capsule 5 mg = 1 cap, Oral, every 6 hr, PRN as needed for pain, X 2 days, # 8 cap, 0 Refill(s), 07/15/23 11:21:00 AM 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, Pharmacy: [facility], 167, cm, 07/13/23 10:15:00 EST, Height, 83.91, kg, 07/13/23 10:20:00 EST, Weight Dosing Start Date: 07/13/23 Stop Date: 07/15/23 Status: Ordered predniSONE 10 mg oral tablet See Instruction, Oral, Daily, 4 tabs daily x3 days, 3 tabs daily x3 days, 2 tabs daily x3 days, 1 tab daily x3 days, # 30 tab, 0 Refill(s), Pharmacy: [facility], 165.1, cm, 09/28/22 9:13:00 EST, Height, 83.91, kg, 06/26/23 13:40:00 EST, Weight Dosing Start Date: 07/05/23 Stop Date: 07/17/23 Status: Ordered triamcinolone 0.1% topical cream 1 ethan, Topical, BID, # 60 g, 1 Refill(s), Pharmacy: [facility], 165.1, cm, 09/28/22 9:13:00 EST, Height, 83.91, kg, 06/26/23 13:40:00 EST, Weight Dosing Start Date: 07/05/23 Stop Date: 08/02/23 Status: Ordered valACYclovir 500 mg oral tablet 0 Refill(s) Start Date: 09/28/22 Status: Ordered Problem List Condition Confirmation Course Effective Dates Status Health St atus Informant Diabetes Confirmed Active High cholesterol Confirmed Active Hypertension Confirmed Active Results Laboratory List Name Date CBC w/ Diff 07/13/23 Comprehensive Metabolic Panel (CMP) 06/23 09/14 Lyme Disease (Borrelia Burgdorferi Abs) 07/13/23 Automated Diff 07/13/23 Most recent to oldest [Reference Range]: 1 WBC [4.8-10.8 K/mcL] 18.3 K/mcL *HI* (07/13/23 10:55 AM) RBC [4.20-5.40 Million/mcL] 5.38 Million /mcL (07/13/23 10:55 AM) Neutro Auto [42.2-75.2 %] 79.7 % *HI* (07/13/23 10:55 AM) Lymph Auto [20.5-51.1 %] 11.0 % *LOW* (07/13/23 10:55 AM) Morrison Auto [1.7-9.3 %] 6.7 % (07/13/23 10:55 AM) Basophil Auto [0.0-0.8 %] 0.7 % (07/13/23 10:55 AM) BUN [7-25 mg/dL] 12 mg/dL (07/13/23 10:55 AM) Glucose Level [70-109 mg/dL] 280 mg/dL *HI* (07/13/23 10:55 AM) Potassium Level [3.5-5.1 mmol/L] 3.4 mmo l/L *LOW* (07/13/23 10:55 AM) Baso Absolute [0.0-0.2 K/mcL] 0.1 K/mcL (07/13/23 10:55 AM) MCV [81.0-99.0 fL] 88.9 fL (07/13/23 10:55 AM) AST [13-39 IntlUnit/L] 8 IntlUnit/L *LOW* (07/13/23 10:55 AM) ALT [7-52 IntlUnit/L] 14 IntlUnit/L (07/13/23 10:55 AM) MCHC [32.0-37.0 g/dL] 34.4 g/dL (07/13/23 10:55 AM) Osmolality [275-295 mOsm/kg] 286 mOsm/kg (07/13/23 10:55 AM) Sodium Level [136-145 mmol/L] 138 mmol/L (07/13/23 10:55 AM) Lymph Absolute [1.2-3.4 K/mcL] 2.0 K/mcL (07/13/23 10:55 AM) Hct [37.0-47.0 %] 47.9 % *HI* (07/13/23 10:55 AM) Calcium Level [8.6-10.3 mg/dL] 9.4 mg/dL (07/13/23 10:55 AM) Morrison Absolute [0.1-0.6 K/mcL] 1.2 K/mcL *HI* (07/13/23 10:55 AM) Albumin Level [3.5-5.7 g/dL] 4.3 g/dL (07/13/23 10:55 AM) Protein Total [6.4-8.9 g/dL] 7.2 g/dL (07/13/23 10:55 AM) MCH [27.0-31.0 pg] 30.6 pg (07/13/23 10:55 AM) Neutro Absolute [1.4-6.5 K/mcL] 14.6 K/m cL *HI* (07/13/23 10:55 AM) Bilirubin Total [0.3-1.0 mg/dL] 0.8 mg/d L (07/13/23 10:55 AM) Hgb [12.0-16.0 g/dL] 16.5 g/dL *HI* (07/13/23 10:55 AM) Alk Phos [34-104 IntlUnit/L] 131 IntlUni t/L *HI* (07/13/23 10:55 AM) MPV [7.4-10.4 fL] 9.6 fL (07/13/23 10:55 AM) Platelets [130-400 K/mcL] 322 K/mcL (07/13/23 10:55 AM) CO2 [21-31 mmol/L] 28 mmol/L (07/13/23 10:55 AM) Eos Absolute [0.0-0.2 K/mcL] 0.3 K/mcL *HI* (07/13/23 10:55 AM) Chloride Level [98-107 mmol/L] 100 mmol/ L (07/13/23 10:55 AM) RDW-CV [11.5-14.5 %] 12.5 % (07/13/23 10:55 AM) A/G Ratio [1.0-2.5 g/dL] 1.5 g/dL (07/13/23 10:55 AM) BUN/Creat Ratio [8.0-20.0] 20.0 (07/13/23 10:55 AM) Globulin [2.3-3.5 g/dL] 2.9 g/dL (07/13/23 10:55 AM) Lyme IgG [Negative] Negative 1 (07/13/23 10:55 AM) Lyme IgM [Negative] Negative 2 (07/13/23 10:55 AM) Creatinine Level [0.60-1.20 mg/dL] 0.60 mg/dL (07/13/23 10:55 AM) Anion Gap [3.0-12.0] 10.0 (07/13/23 10:55 AM) Eos, Auto [0.00-3.00 %] 1.90 % (07/13/23 10:55 AM) eGFR CKD-EPI [>=60 mL/min/1.73 m2] 103 m L/min/1.73 m2 (07/13/23 10:55 AM) 1Interpretive Data: A negative result in the VIDAS Lyme IgG II assay or the [facility]IDAS Lyme IgM II assay does not rule out the possibility of B. Burgdorferi infection in a patient. Patients in early stages of infection who have undergone antibiotic therapy may not produce measurable antibodies. If clinical history and/or syptoms are suggestive of Lyme Disease, a second specimen should be collected in 4-6 weeks. Lyme Western Blot testing reflexed. Results to follow. POSITIVE RESULTS ARE REPORTED TO THE [facility]. 2Interpretive Data: A negative result in the VIDAS Lyme IgG II assay or the [facility]AS Lyme IgM II assay does not rule out the possibility of B. Burgdorferi infection in a patient. Patients in early stages of infection who have undergone antibiotic therapy may not produce measurable antibodies. If clinical history and/or syptoms are suggestive of Lyme Disease, a second specimen should be collected in 4-6 weeks. Lyme Western Blot testing reflexed. Results to follow. POSITIVE RESULTS ARE REPORTED TO THE [facility]. Vital Signs Most recent to oldest [Reference Range]: 1 2 3 Temperature Oral [35.8-37.3 Deg C] 36.3 Deg C (07/13/23 9:49 AM) Heart Rate Monitored [60-100 bpm] 95 bpm (07/13/23 11:23 AM) 101 bpm *HI* (07/13/23 9:49 AM) Respiratory Rate [12-24 br/min] 14 br/min (07/13/23 11:23 AM) 18 br/min (07/13/23 9:49 AM) Blood Pressure [90-140/60-90 mmHg] 152/86mmHg *HI* (07/13/23 12:03 PM) 186/90mmHg *HI* (07/13/23 11:23 AM) 232/121mmHg *HI* (07/13/23 9:49 AM) Mean Arterial Pressure, Cuff [70-110 mmHg] 108 mmHg (07/13/23 12:03 PM) 122 mmHg *>HHI* (07/13/23 11:23 AM) 158 mmHg *>HHI* (07/13/23 9:49 AM) Blood Pressure Location Left arm (07/13/23 12:03 PM) Blood Pressure Method Automatic (07/13/23 12:03 PM) Weight 83.91 kg (07/13/23 9:49 AM) Weight Dosing 83.910 kg (07/13/23 9:49 AM) Height 167 cm (07/13/23 9:49 AM) Body Mass Index 30.09 kg/m2 (07/13/23 9:49 AM) Social History Social History Type Response Tobacco Never tobacco user T obacco Use:. Sex Hospital Discharge Instructions Patient Education 07/13/2023 11:49:33 Cellulitis, Adult Cellulitis, Adult Cellulitis is a skin infection. The infected area is usually warm, red, swollen, and tender. This condition occurs most often in the arms and lower legs. The infection can travel to the muscles, blood, and underlying tissue and become serious. It is very important to get treated for this condition. What are the causes? Cellulitis is caused by bacteria. The bacteria enter through a break in the skin, such as a cut, burn, insect bite, open sore, or crack. What increases the risk? This condition is more likely to occur in people who: ??? Have a weak body defense system (immune system). ??? Have open wounds on the skin, such as cuts, kirk, bites, and scrapes. Bacteria can enter the body through these open wounds. ??? Are older than 60 years of age. ??? Have diabetes. ??? Have a type of long-lasting (chronic) liver disease (cirrhosis) or kidney disease. ??? Are obese. ??? Have a skin condition such as: ??? Itchy rash (eczema). ??? Slow movement of blood in the veins (venous stasis). ??? Fluid buildup below the skin (edema). ??? Have had radiation therapy. ??? Use IV drugs. What are the signs or symptoms? Symptoms of this condition include: ??? Redness, streaking, or spotting on the skin. ??? Swollen area of the skin. ??? Tenderness or pain when an area of the skin is touched. ??? Warm skin. ??? A fever. ??? Chills. ??? Blisters. How is this diagnosed? This condition is diagnosed based on a medical history and physical exam. You may also have tests, including: ??? Blood tests. ??? Imaging tests. How is this treated? Treatment for this condition may include: ??? Medicines, such as antibiotic medicines or medicines to treat allergies (antihistamines). ??? Supportive care, such as rest and application of cold or warm cloths (compresses) to the skin. ??? Hospital care, if the condition is severe. The infection usually starts to get better within 1???2 days of treatment. Follow these instructions at home: Medicines ??? Take gehn-gsb-hmqoxdc and prescription medicines only as told by your health care provider. ??? If you were prescribed an antibiotic medicine, take it as told by your health care provider. Donot stop taking the antibiotic even if you start to feel better. General instructions ??? Drink enough fluid to keep your urine pale yellow. ??? Do not touch or rub the infected area. ??? Raise (elevate) the infected area above the level of your heart while you are sitting or lying down. ??? Apply warm or cold compresses to the affected area as told by your health care provider. ??? Keep all follow-up visits as told by your health care provider. This is important. These visitslet your health care provider make sure a more serious infection is not developing. Contact a health care provider if: ??? You have a fever. ??? Your symptoms do not begin to improve within 1???2 days of starting treatment. ??? Your bone or joint underneath the infected area becomes painful after the skin has healed. ??? Your infection returns in the same area or another area. ??? You notice a swollen bump in the infected area. ??? You develop new symptoms. ??? You have a general ill feeling (malaise) with muscle aches and pains. Get help right away if: ??? Your symptoms get worse. ??? You feel very sleepy. ??? You develop vomiting or diarrhea that persists. ??? You notice red streaks coming from the infected area. ??? Your red area gets larger or turns dark in color. These symptoms may represent a serious problem that is an emergency. Do not wait to see if the symptoms will go away. Get medical help right away. Call your local emergency services (911 in the [place] Do not drive yourself to the hospital. Summary ??? Cellulitis is a skin infection. This condition occurs most often in the arms and lower legs. ??? Treatment for this condition may include medicines, such as antibiotic medicines or antihistamines. ??? Take hflo-ynb-fpyfppd and prescription medicines only as told by your health care provider. If you were prescribed an antibiotic medicine, do not stop taking the antibiotic even if you start to feel better. ??? Contact a health care provider if your symptoms do not begin to improve within 1???2 days of starting treatment or your symptoms get worse. ??? Keep all follow-up visits as told by your health care provider. This is important. These visitslet your health care provider make sure that a more serious infection is not developing. This information is not intended to replace advice given to you by your health care provider. Make sure you discuss any questions you have with your health care provider. Document Revised: 04/20/2022 Document Reviewed: 04/20/2022 [employer] Patient Education ?? 2022 [employer]. Follow Up Care 07/13/2023 09:49:11 With:Tylenol/Motrin for Pain/Fever Relief Address:Unknown When:1 month With:Drink Fluids Address:Unknown When:1 month Physician Emergency department Note * LY Royal: PERFORM Event Display: ED Note Physician Authored Date: [id number] EARL ESTRADA :1965 Age:58 years Sex:Female Visit Date:07/13/2023 Basic Information Time Seen: LY Royal / 07/13/2023 10:03 Chief Complaint C/O skin infection for 8 weeks. Rash started on lower abdomen, spread to upper abdomen, and to chin. Now has 3 abscesses in those areas that have been popped at [facility]gent Care [facility]. On round 2 of clindamycin. Oxycodone & tylenol 0330, motrin at 9300. History Of Present Illness: Patient is a diabetic 58-year-old female here for concern of worsening cellulitis.?? She explains that she has had multiple evaluations for this??rash since June 26.?? Initially lesion was on her abdomen that she has 2 lesions on her abdomen??and 1 on her chin. ??Initially??was thought to be a fungal infection and she was treated with??a week of Diflucan which was later extended an additional week.?? At a follow-up??with a??were concerned about a cellulitis and started her on a Keflex and then clindamycin. She was recently evaluated in our urgent care??and a biopsy was sent. ??Last night she was seen at an bariatric??and they I&D the lesion on her??chin.?? She is experiencing localized??tenderness and edema however no discharge present.? Review of Systems: See HPI Physical Exam Vitals & Measurements T:??36.3?C ??(Oral)?? HR:??95??(Monitored)?? RR:??14?? BP:??152/86?? SpO2:??96%?? HT:??167??cm?? WT:??83.91??kg?? BMI:??30.09?? O2 Therapy:??Room air?? General: Patient is alert and engaging, appears well. Is in no acute distress. Speaking comfortablyin full sentences.?? Constitutional: No fevers, chills or diaphoresis.?? HEENT: Head normocephalic and atraumatic. Neck supple with FROM w/o lymphadenopathy there is a indurated area measuring approximately 1 cm in diameter to surrounded by 3 cm of erythema.?? Localized edema however there is no edema extending to the??soft tissues of the??neck. Respiratory: ??No obvious work of breathing, regular rate. BS equal b/l, clear to auscultation. Cardiovascular: Heart regular rate and rhythm w/o murmurs, rubs or gallops. No peripheral edema present.?? GI: normoactive BS. Abdomen soft non tender, nondistended without guarding, rebound or rigidity. NoHSM Extremities: No obvious deformities. FROM.?? Integumentary: Lesion on the skin as described above.?? 2 liver lesions on the abdomen. ??Both havea central comedone??with surrounding??induration approximately 1 cm and then an annular??area of erythema??between 4 and 5 cm in diameter.?? No streaking crepitus or discharge present. ??No fluctuance present. Neuro: CN III-XII grossly intact.?? Psychiatric: acting appropriate for age and circumstance. Normal mood without obvious ??affect.?? Medical Decision Making: Patient is a pleasant 58-year-old female here for concern of worsening cellulitis. ??Patient appears in distress due to the pain. ??Vitals obtained and reviewed. ??She is afebrile hemodynamically stable. ??Patient has been evaluated multiple times for these abscesses. ??She has been on??2 weeks of Diflucan, Keflex??as well as topical steroids and antifungals without any improvement.?? Most recently she was seen at??[facility] last night and had an I&D done of the abscess on the chin. ??And startedon clindamycin. She was also seen last week in our urgent care and had a??skin biopsy done??was able to access these results??and pathology report showed superficial and deep perivascular dermatitis with??eosinophils. My concern??at this point would be MRSA or spider bites. Clindamycin likely does not with appropriate coverage for MRSA and so she will be switched to doxycycline as patient has a sulfa allergy and cannot use Bactrim.?? Unfortunately there is no??fluctuance present or discharge so an I&D and wound culture??were not able to??be obtained. Patient's blood pressure significantly elevated. ??She is not experiencing any headache vision changes or chest pain however she has not taken her daily??hypertensive medications so she was given these while in the ED.??after administration of??her hypertensive medications??repeat blood pressure was 152/86. Because of the pain patient was given Dilaudid??and made her comfortable.?? Given her first dose ofdoxycycline while in the emergency department and observed??until she was??safe to drive. ??Patienthas been treated with 2 days of oxycodone and I extended this additional 2 days??for her to use as the pain while the antibiotics??take effect. Procedure No Qualifying Data Assessment/Plan 1.??MRSA cellulitis??L03.90 Discharged home will??stop the clindamycin and start on doxycycline.?? Wound care discussed with patient in depth.?? Also??discussed?? the possibility of insect/arachnoid bites and??does a trial of an tableau architect in the home.?? Dermatology referral sent. ??Close follow-up and return precautions understood. Methicillin resistant Staphylococcus aureus infection as the cause of diseases classified elsewhere??B95.62 Orders: doxycycline hyclate 100 mg oral tablet, 100 mg = 1 tab, Oral, BID, X 14 days, # 28 tab, 0 Refill(s), 07/27/23 12:47:00 EST, Pharmacy: [id number], 167, cm, 07/13/23 10:15:00 EST, Height, 83.91, kg, 07/13/23 10:20:00 EST, Weight Dosing oxyCODONE 5 mg oral capsule, 5 mg = 1 cap, Oral, every 6 hr, PRN as needed for pain, X 2 days, # 8 cap, 0 Refill(s), 07/15/23 12:21:00 EST, Pharmacy: [id number], 167, cm, 07/13/23 10:15:00EST, Height, 83.91, kg, 07/13/23 10:20:00 EST, Weight Dosing Discharge Patient, 07/13/23 12:49:00 EST, Home Independently Patient Education Cellulitis, Adult Follow Up With When Contact Information Tylenol/Motrin for Pain/Fever Relief Within 1 month Additional Instructions: Drink Fluids Within 1 month Additional Instructions: Medication Reconciliation New Prescription oxyCODONE (oxyCODONE 5 mg oral capsule)1 Capsules Oral (given by mouth) every 6 hours as needed as needed for pain for 2 Days. Refills: 0. ?? Changed doxycycline (doxycycline hyclate 100 mg oral capsule)1 Capsules Oral (given by mouth) 2 times a dayfor 7 Days. Refills: 0. ?? doxycycline (doxycycline hyclate 100 mg oral tablet)1 tab Oral (given by mouth) 2 times a day for 14 Days. Refills: 0. ?? Unchanged amlodipine-atorvastatin (amlodipine-atorvastatin 10 mg-40 mg oral tablet)1 tab Oral (given by mouth) every day. ?? cephalexin (cephalexin 500 mg oral capsule)1 Capsules Oral (given by mouth) 4 times a day for 7 Days. Refills: 0. ?? clindamycin (clindamycin 300 mg oral capsule)1 Capsules Oral (given by mouth) every 8 hours for 7 Days. Refills: 0. ?? clotrimazole topical (clotrimazole 1% topical cream)1 Application Topical (on the skin) 2 times a day. Refills: 0. ?? fluconazole (Diflucan 200 mg oral tablet)1 tab Oral (given by mouth) every day for 7 Days. Refills:0. ?? fluconazole (fluconazole 200 mg oral tablet)1 tab Oral (given by mouth) every day for 7 Days. Refills: 0. ?? hydroCHLOROthiazide (hydroCHLOROthiazide 25 mg oral tablet)1 tab Oral (given by mouth) 2 times a day. ?? hydrOXYzine (hydrOXYzine pamoate 25 mg oral capsule)1 cap prn up to 3 times per day for itching; asneeded as needed for itching. Refills: 0. ?? ibuprofen (Advil) ?? metFORMIN (metFORMIN 1000 mg oral tablet)1 tab Oral (given by mouth) 2 times a day. ?? metoprolol (Metoprolol Succinate ER 100 mg oral tablet, extended release)1 tab Oral (given by mouth) every day. ?? nystatin topical (nystatin 100,000 units/g topical ointment)1 Application Topical (on the skin) 3 times a day for 21 Days. Refills: 2. ?? predniSONE (predniSONE 10 mg oral tablet)See Instruction Oral (given by mouth) every day for 12 Days. 4 tabs daily x3 days, 3 tabs daily x3 days, 2 tabs daily x3 days, 1 tab daily x3 days. Refills: 0. ?? triamcinolone topical (triamcinolone 0.1% topical cream)1 Application Topical (on the skin) 2 timesa day for 14 Days. Refills: 1. ?? valACYclovir (valACYclovir 500 mg oral tablet) Problem List/Past Medical History Ongoing Diabetes High cholesterol Hypertension Historical No qualifying data Medication Administration Given Sodium Chloride 0.9%, 1000 mL, Hydration Bolus amLODIPine, 10 mg, Oral Dilaudid, 1 mg, IV Push Dilaudid, 1 mg, IV Push hydroCHLOROthiazide, 25 mg, Oral Metoprolol Succinate ER, 100 mg, Oral ondansetron, 4 mg, IV Push Allergies Triple Antibiotic sulfa drugs Social History Electronic Cigarette/Vaping Electronic Cigarette Use: Never. Tobacco Never tobacco user Tobacco Use:. Referral Orders Referral Management, Medical Service: Dermatology, Reason: Cellulitis, Start: 07/13/23 Lab Results CBC and Differential?? LATEST RESULTS?? HISTORICAL RESULTS?? WBC?? 07/13/23 10:55?? 18.3 ??High?? 07/01/23?? 9.8?? RBC?? 07/13/23 10:55?? 5.38?? 07/01/23?? 4.96?? Hgb?? 07/13/23 10:55?? 16.5 ??High?? 07/01/23?? 15.3?? Hct?? 07/13/23 10:55?? 47.9 ??High?? 07/01/23?? 44.4?? MCV?? 07/13/23 10:55?? 88.9?? 07/01/23?? 89.6?? MCH?? 07/13/23 10:55?? 30.6?? 07/01/23?? 30.8?? MCHC?? 07/13/23 10:55?? 34.4?? 07/01/23?? 34.4?? RDW-CV?? 07/13/23 10:55?? 12.5?? 07/01/23?? 12.8?? Platelets?? 07/13/23 10:55?? 322?? 07/01/23?? 298?? MPV?? 07/13/23 10:55?? 9.6?? 07/01/23?? 9.8?? Neutro Auto?? 07/13/23 10:55?? 79.7 ??High?? 07/01/23?? 50.6?? Lymph Auto?? 07/13/23 10:55?? 11.0 ??Low?? 07/01/23?? 33.8?? Morrison Auto?? 07/13/23 10:55?? 6.7?? 07/01/23?? 5.6?? Eos, Auto?? 07/13/23 10:55?? 1.90?? 07/01/23?? 9.60 ??High?? Basophil Auto?? 07/13/23 10:55?? 0.7?? 07/01/23?? 0.4?? Neutro Absolute?? 07/13/23 10:55?? 14.6 ??High?? 07/01/23?? 5.0?? Lymph Absolute?? 07/13/23 10:55?? 2.0?? 07/01/23?? 3.3?? Morrison Absolute?? 07/13/23 10:55?? 1.2 ??High?? 07/01/23?? 0.6?? Eos Absolute?? 07/13/23 10:55?? 0.3 ??High?? 07/01/23?? 0.9 ??High?? Baso Absolute?? 07/13/23 10:55?? 0.1?? 07/01/23?? 0.0? Routine Chemistry?? LATEST RESULTS?? HISTORICAL RESULTS?? Sodium Level?? 07/13/23 10:55?? 138?? 07/01/23?? 141?? Potassium Level?? 07/13/23 10:55?? 3.4 ??Low?? 07/01/23?? 3.8?? Chloride Level?? 07/13/23 10:55?? 100?? 07/01/23?? 107?? CO2?? 07/13/23 10:55?? 28?? 07/01/23?? 24?? Alk Phos?? 07/13/23 10:55?? 131 ??High?? 07/01/23?? 107 ??High?? AST?? 07/13/23 10:55?? 8 ??Low?? 07/01/23?? 18?? ALT?? 07/13/23 10:55?? 14?? 07/01/23?? 19?? BUN?? 07/13/23 10:55?? 12?? 07/01/23?? 19?? Glucose Level?? 07/13/23 10:55?? 280 ??High?? 07/01/23?? 194 ??High?? Creatinine Level?? 07/13/23 10:55?? 0.60?? 07/01/23?? 0.70?? BUN/Creat Ratio?? 07/13/23 10:55?? 20.0?? 07/01/23?? 27.1 ??High?? eGFR CKD-EPI?? 07/13/23 10:55?? 103?? 07/01/23?? 100?? Calcium Level?? 07/13/23 10:55?? 9.4?? 07/01/23?? 9.5?? Protein Total?? 12/22/23 10:55?? 7.2?? 07/01/23?? 6.7?? Albumin Level?? 07/13/23 10:55?? 4.3?? 07/01/23?? 4.3?? Globulin?? 07/13/23 10:55?? 2.9?? 07/01/23?? 2.4?? A/G Ratio?? 07/13/23 10:55?? 1.5?? 07/01/23?? 1.8?? Bilirubin Total?? 07/13/23 10:55?? 0.8?? 07/01/23?? 0.3?? Anion Gap?? 07/13/23 10:55?? 10.0?? 07/01/23?? 10.0?? Osmolality?? 07/13/23 10:55?? 286?? 07/01/23?? 289? Infectious Disease?? LATEST RESULTS?? Lyme IgG?? 07/13/23 10:55?? Negative?? Lyme IgM?? 07/13/23 10:55?? Negative? Electronically Signed on 07/13/23 05:02 PM [facility] Discharge instructions * [facility]: PERFORM Event Display: ED Discharge Information Authored Date: [id number] ERAL ESTRADA :1965 Age:58 years Sex:Female Visit Date:07/13/2023 Discharge Instructions We would like to thank you for allowing us to assist you with your healthcare needs. The following includes patient education materials and information regarding your injury/illness. Diagnosis from Today's Visit MRSA cellulitis Methicillin resistant Staphylococcus aureus infection as the cause of diseases classified elsewhere Discharge Vitals Temperature??(Oral) 97.3 ??F (36.3 ??C) Heart Rate??(Monitored) 95 Respiratory Rate?? 14 Blood Pressure?? 152/86?? Height?? 65.75 in (167 cm) Weight?? 185.02 lb (83.91 kg) BMI?? 30.09 Allergies Triple Antibiotic sulfa drugs What to Do Next Instructions from Your Care Team Today for concerns of a worsening cellulitis. ??My concerns at this time??are MRSA or spider bite.?? I would have use discontinue the clindamycin and start on a doxycycline as this has better coverage for MRSA.?? Please take this twice a day for the next 2 weeks.?? I have also sent you in an additional 2 days of oxycodone??to use as needed for the pain.?? If at any point the pain??swelling worsens or if any abscesses develop??and are draining please return to the emergency department. ??I have sent in a dermatology??referral for you. ??You expressed to me that you do live in an older house??and if these are??spider bites it would be beneficial to contact??a??tableau architect??for the home. You Need to Schedule the Following Appointments Follow Up with??Tylenol/Motrin for Pain/Fever Relief When:??Within 1 month Follow Up with??Drink Fluids When:??Within 1 month You were treated today on an emergency basis; it may be jimenez to contact your primary care provider to notify them of your visit today. You may have been referred to your regular doctor or a specialist, please follow up as instructed. If your condition worsens or you can't get in to see the doctor, contact the Emergency Department. Medications What How Much When Why Instructions Next Dose New oxyCODONE (oxyCODONE 5 mg oral capsule) 1 Capsules Oral (given by mouth) Every 6 hours as needed for as needed for pain Duration: 2 Days Pickup at [facility] [id number] Changed doxycycline (doxycycline hyclate 100 mg oral capsule) 1 Capsules Oral (given by mouth) 2 times a day Lower respiratory tract infection Duration: 7 Days Changed doxycycline (doxycycline hyclate 100 mg oral tablet) 1 tab Oral (given by mouth) 2 times a day Duration: 14 Days Pickup at [place] [address] Unchanged amlodipine-atorvastatin (amlodipine-atorvastatin 10 mg-40 mg oral [...] skin) 2 times a day Intertrigo Unchanged fluconazole (Diflucan 200 mg oral tablet) [...] (valACYclovir 500 mg oral tablet) Pharmacy Information [facility] [address] [place], [place] [phone] Education Materials Cellulitis, Adult Cellulitis is a skin infection. The infected area is usually warm, red, swollen, and tender. This condition occurs most often in the arms and lower legs. The infection can travel to the muscles, blood, and underlying tissue and become serious. It is very important to get treated for this condition. What are the causes? Cellulitis is caused by bacteria. The bacteria enter through a break in the skin, such as a cut, burn, insect bite, open sore, or crack. What increases the risk? This condition is more likely to occur in people who: ? Have a weak body defense system (immune system). ? Have open wounds on the skin, such as cuts, kirk, bites, and scrapes. Bacteria can enter the body through these open wounds. ? Are older than 60 years of age. ? Have diabetes. ? Have a type of long-lasting (chronic) liver disease (cirrhosis) or kidney disease. ? Are obese. ? Have a skin condition such as: ? Itchy rash (eczema). ? Slow movement of blood in the veins (venous stasis). ? Fluid buildup below the skin (edema). ? Have had radiation therapy. ? Use IV drugs. What are the signs or symptoms? Symptoms of this condition include: ? Redness, streaking, or spotting on the skin. ? Swollen area of the skin. ? Tenderness or pain when an area of the skin is touched. ? Warm skin. ? A fever. ? Chills. ? Blisters. How is this diagnosed? This condition is diagnosed based on a medical history and physical exam. You may also have tests, including: ? Blood tests. ? Imaging tests. How is this treated? Treatment for this condition may include: ? Medicines, such as antibiotic medicines or medicines to treat allergies (antihistamines). ? Supportive care, such as rest and application of cold or warm cloths (compresses) to the skin. ? Hospital care, if the condition is severe. The infection usually starts to get better within 1???2 days of treatment. Follow these instructions at home: Medicines ? Take mouk-rqx-xekrxyv and prescription medicines only as told by your health care provider. ? If you were prescribed an antibiotic medicine, take it as told by your health care provider. Do notstop taking the antibiotic even if you start to feel better. General instructions ? Drink enough fluid to keep your urine pale yellow. ? Do not touch or rub the infected area. ? Raise (elevate) the infected area above the level of your heart while you are sitting or lying down. ? Apply warm or cold compresses to the affected area as told by your health care provider. ? Keep all follow-up visits as told by your health care provider. This is important. These visits letyour health care provider make sure a more serious infection is not developing. Contact a health care provider if: ? You have a fever. ? Your symptoms do not begin to improve within 1???2 days of starting treatment. ? Your bone or joint underneath the infected area becomes painful after the skin has healed. ? Your infection returns in the same area or another area. ? You notice a swollen bump in the infected area. ? You develop new symptoms. ? You have a general ill feeling (malaise) with muscle aches and pains. Get help right away if: ? Your symptoms get worse. ? You feel very sleepy. ? You develop vomiting or diarrhea that persists. ? You notice red streaks coming from the infected area. ? Your red area gets larger or turns dark in color. These symptoms may represent a serious problem that is an emergency. Do not wait to see if the symptoms will go away. Get medical help right away. Call your local emergency services (911 in the [place] Do not drive yourself to the hospital. Summary ? Cellulitis is a skin infection. This condition occurs most often in the arms and lower legs. ? Treatment for this condition may include medicines, such as antibiotic medicines or antihistamines. ? Take wqce-uks-sjxoroa and prescription medicines only as told by your health care provider. If you were prescribed an antibiotic medicine, do not stop taking the antibiotic even if you start to feel better. ? Contact a health care provider if your symptoms do not begin to improve within 1???2 days of starting treatment or your symptoms get worse. ? Keep all follow-up visits as told by your health care provider. This is important. These visits letyour health care provider make sure that a more serious infection is not developing. This information is not intended to replace advice given to you by your health care provider. Make sure you discuss any questions you have with your health care provider. Document Revised: 04/20/2022 Document Reviewed: 04/20/2022 Elsevier Patient Education ?? 2022 [employer] Tests Performed Medications and Immunizations Administered Given Sodium Chloride 0.9%, 1000 mL, Hydration Bolus amLODIPine, 10 mg, Oral Dilaudid, 1 mg, IV Push Dilaudid, 1 mg, IV Push hydroCHLOROthiazide, 25 mg, Oral Metoprolol Succinate ER, 100 mg, Oral Lab Test Name Test Result Date/Time WBC 18.3 K/mcL 07/13/2023 10:55 EST RBC 5.38 Million/mcL 07/13/2023 10:55 EST Hgb 16.5 g/dL 07/13/2023 10:55 EST Hct 47.9 % 07/13/2023 10:55 EST MCV 88.9 fL 07/13/2023 10:55 EST MCH 30.6 pg 07/13/2023 10:55 EST MCHC 34.4 g/dL 07/13/2023 10:55 EST RDW-CV 12.5 % 07/13/2023 10:55 EST Platelets 322 K/mcL 07/13/2023 10:55 EST MPV 9.6 fL 07/13/2023 10:55 EST Neutro Auto 79.7 % 07/13/2023 10:55 EST Lymph Auto 11.0 % 07/13/2023 10:55 EST Morrison Auto 6.7 % 07/13/2023 10:55 EST Eos, Auto 1.90 % 07/13/2023 10:55 EST Basophil Auto 0.7 % 07/13/2023 10:55 EST Neutro Absolute 14.6 K/mcL 07/13/2023 10:55 EST Lymph Absolute 2.0 K/mcL 07/13/2023 10:55 EST Morrison Absolute 1.2 K/mcL 07/13/2023 10:55 EST Eos Absolute 0.3 K/mcL 07/13/2023 10:55 EST Baso Absolute 0.1 K/mcL 07/13/2023 10:55 EST Sodium Level 138 mmol/L 07/13/2023 10:55 EST Potassium Level 3.4 mmol/L 07/13/2023 10:55 EST Chloride Level 100 mmol/L 07/13/2023 10:55 EST CO2 28 mmol/L 07/13/2023 10:55 EST Alk Phos 131 IntlUnit/L 07/13/2023 10:55 EST AST 8 IntlUnit/L 07/13/2023 10:55 EST ALT 14 IntlUnit/L 07/13/2023 10:55 EST BUN 12 mg/dL 07/13/2023 10:55 EST Glucose Level 280 mg/dL 07/13/2023 10:55 EST Creatinine Level 0.60 mg/dL 07/13/2023 10:55 EST BUN/Creat Ratio 20.0 07/13/2023 10:55 EST eGFR CKD-EPI 103 mL/min/1.73 m2 07/13/2023 10:55 EST Calcium Level 9.4 mg/dL 07/13/2023 10:55 EST Protein Total 7.2 g/dL 07/13/2023 10:55 EST Albumin Level 4.3 g/dL 07/13/2023 10:55 EST Globulin 2.9 g/dL 07/13/2023 10:55 EST A/G Ratio 1.5 g/dL 07/13/2023 10:55 EST Bilirubin Total 0.8 mg/dL 07/13/2023 10:55 EST Anion Gap 10.0 07/13/2023 10:55 EST Osmolality 286 mOsm/kg 07/13/2023 10:55 EST Lyme IgG Negative 07/13/2023 10:55 EST Lyme IgM Negative 07/13/2023 10:55 EST Patient/Roll Mill Operator Signature Patient Name:EARL ESTRADA I have received this information and my questions have been answered. Patient/Roll Mill Operator Name: Patient/Roll Mill Operator Signature: Relationship to Patient: Witness Name/Signature: Date: Electronically Signed on: 07/13/2023 12:51 ESTSigned by:ROGELIO Patient Care team information Care Team Personnel Name: [facility] Position: Physician Member Role: Physician Address: Address: [address] [place] [id number] Name: [facility] Position: Nurse Member Role: ED Nurse Care Team Related Persons Name: TRACI ESTRADA Name: TRACI ESTRADA
--- OUTSIDE RECORDS SUMMARY | 2024-02-17 09:34 | XMS_ITS | Continuity of Care Document ---
Author Organization [facility] Address [address] [place] [address] Care Team Providers Care Underbaster Name Role Phone ELLYN KAHN APRN Primary Care Physician Encounter [facility] FIN NBR [id number] Date(s): 02/15/24 - 02/15/[address] [address] Encounter Diagnosis RUQ abdominal pain(Discharge Diagnosis) - 02/15/24 Discharge Disposition: Home or Self Care Attending Physician: Marquez Cruz MD Admitting Physician: Marquez Cruz MD Allergies, Adverse Reactions, Alerts Substance Reaction Severity Status Triple Antibiotic Persistent redness of skin Mild Active sulfa drugs 1 Rash Moderate Active 1tolerates hctz, no rash Assessment and Plan Extracted from: Title:ED Provider Note Author:Han Paulson MD Date:02/15/24 1.??RUQ abdominal pain??R10. 11 ??Clinically most likely cholecystitis. ??CT with contrast to rule out other causes.?? Acetaminophen running.?? General surgery called for consultation.?? Case??transferred to Dr. Washington in stable condition. Orders: acetaminophen, 1,000 mg = 100 mL, IV Piggyback, Injection, Once, Administer over: 15 minutes, First Dose: 02/15/24 8:14:00 EDT, Stop Date: 02/15/24 8:14:00 EDT, Physician Stop, STAT, 400 mL/hr amLODIPine, 5 mg = 1 tab, Oral, Tab, Once, First Dose: 02/15/24 9:00:00 EDT, Stop Date: 02/15/24 9:00:00 EDT, Physician Stop, Routine Sodium Chloride 0.9% 1,000 mL, Total Volume (mL): 1,000, 1,000 mL, Soln-IV, Hydration Bolus, 999 mL/hr, Order Duration: 1 doses, Start Date: 02/15/24 8:14:00 EDT, Stop Date: 02/15/24 9:13:00 EDT, 83.9 kg, Populate Charting Weight From Order, 1.98, m2 CT Abdomen and Pelvis w/ Contrast, 02/15/24 8:52:00 EDT, Stat, Reason: RUQ pain, US neg yvette, Transport Mode: Patient Bed GGT, Blood, Stat, 02/15/24 8:14:00 EDT, Once, Nurse collect US Abdomen Limited, 02/15/24 8:14:00 EDT, Stat, Reason: RUQ pain high likelihood Yvette, Transport Mode: Patient Bed Future Scheduled Tests Laboratory* Pathology Request 07/01/23 Radiology* US Abdomen Complete 11/09/23 * US Abdomen Complete 11/26/23 Medications hydroCHLOROthiazide 12.5 mg oral tablet 12.5 mg = 1 tab, Oral, every morning Start Date: 11/16/23 Status: Ordered Lantus Solostar Pen 100 units/mL subcutaneous solution 10 units =, Subcutaneous, every night at bedtime Start Date: 11/16/23 Status: Ordered lisinopril 40 mg oral tablet 40 mg = 1 tab, Oral, Daily, for high blood pressure Start Date: 11/16/23 Status: Ordered meloxicam 7.5 mg oral tablet 7.5 mg = 1 tab, Oral, BID, take with food for pain Start Date: 11/16/23 Status: Ordered metFORMIN 1000 mg oral tablet 1,000 mg = 1 tab, Oral, BID, # 180 tab, 0 Refill(s) Start Date: 09/28/22 Status: Ordered NexIUM 40 mg oral delayed release capsule 40 mg = 1 cap, Oral, Daily, X 30 days, # 30 cap, 0 Refill(s), 03/16/24 9:23:00 AM CDT, Pharmacy: [facility], 167.6, cm, 02/15/24 7:18:00 EDT, Height, 83.9, kg, 02/15/24 7:27:00 EDT, WeightDosing Start Date: 02/15/24 Stop Date: 03/16/24 Status: Ordered Tylenol Extra Strength 500 mg oral tablet 1,000 mg = 2 tab, Oral, every 8 hr, PRN as needed for pain, 0 Refill(s) Start Date: 07/15/23 Status: Ordered Mental Status 02/15/24 Eye Opening Response [place] Spontaneous ly Best Verbal Response [place] Oriented Best Motor Response Lianet Obeys comman ds Lianet Coma Score 15 Problem List Condition Confirmation Course Effective Dates Status H ealth Status Informant Diabetes Confirmed Active High cholesterol Confirmed Active Hypertension Confirmed Active Methicillin resistant Staphylococcus aureus 1 Confirmed 07/18/23 Active 1Problem added by Rule (LH_IC_MDRO_MRSA) following Wound Culture Deep from Abscess collected on 16-JUL-2023 16:51:00 EST tested positive for MRSA. Results Laboratory List Name Date Glucose POCT 02/15/24 Troponin-I High Sensitivity (High Sensit ivityTroponin-I) 02/15/24 Blood Gas Venous 02/15/24 CBC w/ Diff 02/15/24 Comprehensive Metabolic Panel (CMP) 02/14 Lipase Level 02/15/24 Magnesium Level 02/15/24 Troponin-I High Sensitivity (High Sensit ivityTroponin-I) 02/15/24 Automated Diff 02/15/24 GGT 02/15/24 PT/ INR 02/15/24 Glucose POCT 02/15/24 Most recent to oldest [Reference Range]: 1 2 WBC [4.8-10.8 K/mcL] 5.7 K/mcL (02/15/24 7:30 AM) RBC [4.20-5.40 Million/mcL] 5.01 Million /mcL (02/15/24 7:30 AM) Neutro Auto [42.2-75.2 %] 50.1 % (02/15/24 7:30 AM) Lymph Auto [20.5-51.1 %] 36.3 % (02/15/24 7:30 AM) Juab Auto [1.7-9.3 %] 8.2 % (02/15/24 7:30 AM) Basophil Auto [0.0-0.8 %] 1.1 % *HI* (02/15/24 7:30 AM) Prothrombin Time [9.1-10.6 seconds] 9.1 seconds (02/15/24 7:20 AM) INR [0.9-1.1] 0.9 1 (02/15/24 7:20 AM) BUN [7-25 mg/dL] 13 mg/dL (02/15/24 7:30 AM) Glucose POC 235 *NA* (02/15/24 9:59 AM) 324 *NA* (02/15/24 7:15 AM) Glucose Level [70-109 mg/dL] 323 mg/dL *HI* (02/15/24 7:30 AM) Potassium Level [3.5-5.1 mmol/L] 4.1 mmo l/L (02/15/24 7:30 AM) Baso Absolute [0.0-0.2 K/mcL] 0.1 K/mcL (02/15/24 7:30 AM) MCV [81.0-99.0 fL] 90.1 fL (02/15/24 7:30 AM) CO2 Total Venous [22.0-26.0 mmol/L] 27.9 mmol/L *HI* (02/15/24 7:30 AM) HCO3 Venous [22.0-29.0 mmol/L] 26.6 mmol /L (02/15/24 7:30 AM) AST [13-39 IntlUnit/L] 49 IntlUnit/L *HI* (02/15/24 7:30 AM) ALT [7-52 IntlUnit/L] 46 IntlUnit/L (02/15/24 7:30 AM) MCHC [32.0-37.0 g/dL] 34.8 g/dL (02/15/24 7:30 AM) Osmolality [275-295 mOsm/kg] 286 mOsm/kg (02/15/24 7:30 AM) Sodium Level [136-145 mmol/L] 137 mmol/L (02/15/24 7:30 AM) Lymph Absolute [1.2-3.4 K/mcL] 2.1 K/mcL (02/15/24 7:30 AM) Hct [37.0-47.0 %] 45.1 % (02/15/24 7:30 AM) Lipase Level [11-82 unit/L] 25 unit/L 2 (02/15/24 7:30 AM) Calcium Level [8.6-10.3 mg/dL] 9.0 mg/dL (02/15/24 7:30 AM) [place] Absolute [0.1-0.6 K/mcL] 0.5 K/mcL (02/15/24 7:30 AM) Albumin Level [3.5-5.7 g/dL] 4.4 g/dL (02/15/24 7:30 AM) Protein Total [6.4-8.9 g/dL] 7.1 g/dL (02/15/24 7:30 AM) MCH [27.0-31.0 pg] 31.3 pg *HI* (02/15/24 7:30 AM) Magnesium Level [1.9-2.7 mg/dL] 1.8 mg/d L *LOW* (02/15/24 7:30 AM) Neutro Absolute [1.4-6.5 K/mcL] 2.9 K/mc L (02/15/24 7:30 AM) Bilirubin Total [0.3-1.0 mg/dL] 0.4 mg/d L (02/15/24 7:30 AM) Hgb [12.0-16.0 g/dL] 15.7 g/dL (02/15/24 7:30 AM) Alk Phos [34-104 IntlUnit/L] 111 IntlUni t/L *HI* (02/15/24 7:30 AM) MPV [7.4-10.4 fL] 9.7 fL (02/15/24 7:30 AM) pCO2 Michael [42.0-53.0 mmHg] 43.0 mmHg (02/15/24 7:30 AM) Platelets [130-400 K/mcL] 280 K/mcL (02/15/24 7:30 AM) CO2 [21-31 mmol/L] 25 mmol/L (02/15/24 7:30 AM) Eos Absolute [0.0-0.2 K/mcL] 0.2 K/mcL (02/15/24 7:30 AM) GGT [9-64 IntlUnit/L] 219 IntlUnit/L *HI* (02/15/24 7:20 AM) pH Michael [7.32-7.43 pH unit(s)] 7.40 pH un it(s) (02/15/24 7:30 AM) Chloride Level [98-107 mmol/L] 103 mmol/ L (02/15/24 7:30 AM) RDW-CV [11.5-14.5 %] 12.6 % (02/15/24 7:30 AM) A/G Ratio [1.0-2.5 g/dL] 1.6 g/dL (02/15/24 7:30 AM) BUN/Creat Ratio [8.0-20.0] 21.7 *HI* (02/15/24 7:30 AM) Globulin [2.3-3.5 g/dL] 2.7 g/dL (02/15/24 7:30 AM) Creatinine Level [0.60-1.20 mg/dL] 0.60 mg/dL (02/15/24 7:30 AM) Troponin-I HS [<=12 ng/L] 4 ng/L 3 (02/15/24 8:03 AM) 5 ng/L 4 (02/15/24 7:30 AM) Anion Gap [3.0-12.0] 9.0 (02/15/24 7:30 AM) Eos, Auto [0.00-3.00 %] 4.30 % *HI* (02/15/24 7:30 AM) eGFR CKD-EPI [>=60 mL/min/1.73 m2] 103 m L/min/1.73 m2 (02/15/24 7:30 AM) 1Interpretive Data: THERAPEUTIC INR RANGES FOR WARFARIN Uncomplicated venous thromboembolic disease 2-3 Lupus Anticoagulant and recurrent thrombosis 3-3.5 Mechanical prosthetic valve or recurrent thrombosis 2.5-3.5 2Interpretive Data: A-ltxgae-x-benzoquinone imine (meabolite of Acetaminophen) will generate erroneously low lipase results in samples for patients that have taken toxic doses of acetaminophen. 3Interpretive Data: The Indu ACCESS high-sensitivity Troponin I (hsTNI) 99 percentile cutoffs forhealthy adults are 12 ng/L or less for females and 20 ng/L or less for males. SERIAL MEASUREMENT IS HIGHLY RECOMMENDED for the diagnosis or exclusion of Acute Coronary Syndromes(ACS). Please refer to the High-Sensitivity Troponin Algorithm 2022 for guidance. As with all markers of cardiac injury, elevations of hsTnI do not in and of themselves indicate thepresence of an ischemic mechanism. Many other disease states can be associated with elevations via mechanisms different from those that cause injury in patients with ACS. These include trauma (contusion, ablation, pacing); congestive heart failure; pulmonary embolism; kidney failure; and myocarditis. Clinical judgement is necessary to distinguish patients who have ischemic heart disease from those who do not. 4Interpretive Data: The Indu ACCESS high-sensitivity Troponin I (hsTNI) 99 percentile cutoffs forhealthy adults are 12 ng/L or less for females and 20 ng/L or less for males. SERIAL MEASUREMENT IS HIGHLY RECOMMENDED for the diagnosis or exclusion of Acute Coronary Syndromes(ACS). Please refer to the High-Sensitivity Troponin Algorithm 2022 for guidance. As with all markers of cardiac injury, elevations of hsTnI do not in and of themselves indicate thepresence of an ischemic mechanism. Many other disease states can be associated with elevations via mechanisms different from those that cause injury in patients with ACS. These include trauma (contusion, ablation, pacing); congestive heart failure; pulmonary embolism; kidney failure; and myocarditis. Clinical judgement is necessary to distinguish patients who have ischemic heart disease from those who do not. Radiology Reports * Exam Date Time Procedure Performing Provider Status 02/15/24 9:[address] Abdomen and Pelvis w/ Contrast Kiah Byers; Jc (Verified) Notes: (CT Abdomen and Pelvis w/ Contrast) Reason For Exam: RUQ pain, US neg yvette CT Abdomen and Pelvis w/ Contrast EXAM DESCRIPTION: CT Abdomen and Pelvis w/ Contrast 02/15/2024 INDICATION: RUQ PAIN, US NEG YVETTE TECHNIQUE: All CT scans at this facility use at least one of these dose optimization techniques: Automated exposure control; mA and/or kV adjustment per patient size (includes targeted exams where dose is matched to clinical indication); or iterative reconstruction. Technique: Axial CT images of the abdomen/pelvis with IV contrast administration 100 cc of Isovue-300 contrast was utilized COMPARISON: None FINDINGS: Ovoid nodular opacity in the inferior aspect of the left breast. Neoplastic lesion can not be excluded, and mammographic correlation is recommended. No focal hepatic lesion. Normal enhancement of the main hepatic veins and main portal vein Normal spleen size without focal mass No calcified gallstones in the gallbladder. Adrenal glands and pancreas appear within normal limits Tiny low-attenuation lesion involving the mid right kidney which is too small to characterize. This may reflect small cyst. Otherwise no focal renal mass, hydronephrosis or perinephric fluid collection on either side. No pelvic mass identified Normal caliber abdominal aorta No retroperitoneal adenopathy in the abdomen or pelvis. No bowel dilatation to suggest obstruction or ileus. No free intraperitoneal air, ascites or inflammatory changes. Normal appendix. Scattered colonic diverticula. The visualized lung bases are clear. No suspicious regional osseous lesions. Tiny sclerotic focus in the left femoral head likely reflecting bone island. IMPRESSION: Nonobstructive bowel pattern. No free air or inflammatory changes. Normal appendix Tiny low-attenuation right renal lesion which is difficult to characterize based on size. This likely reflects small cyst. Otherwise no abdominal/pelvic mass or adenopathy Ovoid nodular lesion in the left inferior breast. Neoplastic lesion cannot be excluded. Nonemergent mammographic correlation is recommended. JOB #: [id number] Final Signed by: Patricio Quarles MD Signed (Electronic Signature): 02/15/2024 9:41 am * Exam Date Time Procedure Performing Provider Status 02/15/24 8:58 AM US Abdomen Limited DomainUser, Generat ed; Auth (Verified) Notes: (US Abdomen Limited) Reason For Exam: RUQ pain high likelihood Yvette US Abdomen Limited EXAM DESCRIPTION: US Abdomen Limited 02/15/2024 INDICATION: RUQ PAIN HIGH LIKELIHOOD YVETTE TECHNIQUE: Grayscale and color Doppler ultrasound examination of the right upper quadrant region of the abdomen. COMPARISON: None FINDINGS: The liver is mildly enlarged measuring 17.3 cm in maximum dimension. Diffusely increased hepatic echogenicity suggesting hepatic steatosis. No focal hepatic lesion identified. The main portal vein is patent with normal flow direction The pancreas is unremarkable No ascites in right upper quadrant No cholelithiasis, gallbladder wall thickening or pericholecystic fluid accumulation. No biliary dilatation with common bile duct diameter of 4 mm. Positive sonographic Buitrago sign Right kidney measures 12.7 cm in maximum dimension. No focal right renal mass, hydronephrosis or perinephric fluid collection. IMPRESSION: Mild hepatomegaly with findings suggesting hepatic steatosis. No cholelithiasis or biliary dilatation. Positive sonographic Buitrago sign. JOB #: [id number] Final Signed by: Patricio Quarles MD Signed (Electronic Signature): 02/15/2024 9:06 am * Exam Date Time Procedure Performing Provider Status 02/15/24 7:41 AM XR Chest 1 View Nickie Bernabe; Auth (Ve rified) Notes: (XR Chest 1 View) Reason For Exam: Chest Pain XR Chest 1 View EXAM DESCRIPTION: XR Chest 1 View 02/15/2024 INDICATION: CHEST PAIN COMPARISON: None FINDINGS: Clear lungs with no focal infiltrate or pulmonary edema. Normal cardiomediastinal contour. No significant pleural effusion or pneumothorax. Spondylotic changes of the dorsal spine. IMPRESSION: No active chest disease. JOB #: [id number] Final Signed by: Patricio Quarles MD Signed (Electronic Signature): 02/15/2024 8:12 am Vital Signs Most recent to oldest [Reference Range]: 1 2 3 Temperature Temporal Artery [36-38 Deg C] 36.3 Deg C (02/15/24 7:18 AM) Heart Rate Monitored [60-100 bpm] 77 bpm (02/15/24 10:30 AM) 69 bpm (02/15/24 10:00 AM) 73 bpm (02/15/24 9:30 AM) Respiratory Rate [12-24 br/min] 16 br/min (02/15/24 10:30 AM) 20 br/min (02/15/24 10:00 AM) 13 br/min (02/15/24 9:00 AM) Blood Pressure [90-140/60-90 mmHg] 187/100mmHg *HI* (02/15/24 10:30 AM) 180/100mmHg *HI* (02/15/24 10:00 AM) 182/95mmHg *HI* (02/15/24 9:30 AM) Mean Arterial Pressure, Cuff [65-140 mmHg] 129 mmHg (02/15/24 10:30 AM) 127 mmHg (02/15/24 10:00 AM) 124 mmHg (02/15/24 9:30 AM) Mean Arterial Pressure Cuff 129 mmHg (02/15/24 9:00 AM) 144 mmHg (02/15/24 8:30 AM) 125 mmHg (02/15/24 8:00 AM) Weight 83.9 kg (02/15/24 7:18 AM) Weight Dosing 83.900 kg (02/15/24 7:18 AM) Height 167.6 cm (02/15/24 7:18 AM) Body Mass Index 29.87 kg/m2 (02/15/24 7:18 AM) Social History Social History Type Response Tobacco Never tobacco user T obacco Use:. Sex Hospital Discharge Instructions Patient Education 02/15/2024 09:22:11 Abdominal Pain, Adult Abdominal Pain, Adult Pain in the abdomen (abdominal pain) can be caused by many things. Often, abdominal pain is not serious and it gets better with no treatment or by being treated at home. However, sometimes abdominal pain is serious. Your health care provider will ask questions about your medical history and do a physical exam to try to determine the cause of your abdominal pain. Follow these instructions at home: Medicines ??? Take dcyw-zmt-dprokqo and prescription medicines only as told by your health care provider. ??? Do not take a laxative unless told by your health care provider. General instructions ??? Watch your condition for any changes. ??? Drink enough fluid to keep your urine pale yellow. ??? Keep all follow-up visits as told by your health care provider. This is important. Contact a health care provider if: ??? Your abdominal pain changes or gets worse. ??? You are not hungry or you lose weight without trying. ??? You are constipated or have diarrhea for more than 2???3 days. ??? You have pain when you urinate or have a bowel movement. ??? Your abdominal pain wakes you up at night. ??? Your pain gets worse with meals, after eating, or with certain foods. ??? You are vomiting and cannot keep anything down. ??? You have a fever. ??? You have blood in your urine. Get help right away if: ??? Your pain does not go away as soon as your health care provider told you to expect. ??? You cannot stop vomiting. ??? Your pain is only in areas of the abdomen, such as the right side or the left lower portion of the abdomen. Pain on the right side could be caused by appendicitis. ??? You have bloody or black stools, or stools that look like tar. ??? You have severe pain, cramping, or bloating in your abdomen. ??? You have signs of dehydration, such as: ??? Dark urine, very little urine, or no urine. ??? Cracked lips. ??? Dry mouth. ??? Sunken eyes. ??? Sleepiness. ??? Weakness. ??? You have trouble breathing or chest pain. Summary ??? Often, abdominal pain is not serious and it gets better with no treatment or by being treated at home. However, sometimes abdominal pain is serious. ??? Watch your condition for any changes. ??? Take lrem-nfr-kuafzsy and prescription medicines only as told by your health care provider. ??? Contact a health care provider if your abdominal pain changes or gets worse. ??? Get help right away if you have severe pain, cramping, or bloating in your abdomen. This information is not intended to replace advice given to you by your health care provider. Make sure you discuss any questions you have with your health care provider. Document Revised: 08/27/2020 Document Reviewed: 11/17/2019 [employer] Patient Education ?? 2022 [employer]. Follow Up Care 02/15/2024 07:03:28 With:primary care physician Address: When:3 to 5 days Comments:Please follow-up with your primary care doctor both about your abdominal discomfort but also about the nodule seen in your left breast as you will need to get??an outpatient??mammogram scheduled??to further evaluate this With:Jeffery Batres MD Address: [address] [place] [id number]- When:1 to 2 weeks Physician Emergency department Note * Han Paulson MD: PERFORM, MODIFY Event Display: ED Note Physician Authored Date: [id number] EARL ESTRADA :1965 Age:59 years Sex:Female Visit Date:02/15/2024 Primary Care Physician: ELLYN KAHN APRN Basic Information Time Seen: Han Paulson MD / 02/15/2024 08:08 Chief Complaint upper abdominal pain - pt reports having pain for 1 month, worsening this AM.HX of gallstones. hurts with deep breath. pt is non-compliant with medications and diabetes management. ?? sent pt for gallbladder ultrasound which she missed.Gluc 324 History Of Present Illness: 59-year-old female nonadherent to medication regimen with uncontrolled type 2 diabetes mellitus presents with a??onset at approximately 0500 hrs. of??moderately severe mostly steady??epigastric and right upper quadrant pain??with radiation to her right shoulder??and up toward her chest.?? She has no cardiac or respiratory history. ??She has had multiple episodes of been told it is her gallbladder. ??She missed her planned??ultrasound.?? She has had no fever, change in color of her urine or stool,??or??other systemic complications.?? She has been moving her bowels without difficulty without blood and urinating without dysuria gross hematuria or frequency.?? She is not taking any of her medications in the last 2 days. Review of Systems: Constitutional:??No fevers, chills, sweats Respiratory:??No shortness of breath, cough Cardiovascular:??No chest pain, palpitations, syncope Gastrointestinal:??No nausea, vomiting, diarrhea, constipation Genitourinary:??No hematuria, or other concerning urinary symptoms Musculoskeletal:??No significant new joint, muscle, or other MSK complaints Integumentary:??No rash, pruritus, or significant skin complaints Neurologic:??Alert, grossly oriented, no focal neurological complaints, able to give a history and consents to examination Physical Exam Vitals & Measurements T:??36.3?C ??(Temporal Artery)?? HR:??80??(Monitored)?? RR:??14?? BP:??225/121?? SpO2:??96%?? HT:??167.6??cm?? WT:??83.9??kg?? BMI:??29.87?? Pain Score:??8?? O2 Therapy:??Room air?? Physical exam reveals an obese alert interactive female who is in no obvious distress with significant hypertension.?? Otherwise vital signs are unremarkable HEENT unremarkable with dry MM Chest clear no wheezes or crackles CV n ormal RR, no m or ES Abd obese soft + BS,?? Markedly tender epigastric and RUQ with referred tenderness but no rebound. Medical Decision Making: Patient is a high pretest probability for cholecystitis acutely. ??An ultrasound was ordered and per certified phlebotomy technician unremarkable. ??Alkaline phosphatase was elevated. ??White count not significantly so.?? CT with contrast ordered. ??A liter of fluid, 8 units of insulin, and her??amlodipine which she has not taken ordered.?? Pending CT scan her care was transferred to Dr. Washington in stable condition having received acetaminophen for analgesia.?? Surgery was consulted??for their opinion??pending CT. Procedure No Qualifying Data Assessment/Plan 1.??RUQ abdominal pain??R10.11 ??Clinically most likely cholecystitis. ??CT with contrast to rule out other causes.?? Acetaminophen running.?? General surgery called for consultation.?? Case??transferred to Dr. Washington in stable condition. Orders: acetaminophen, 1,000 mg = 100 mL, IV Piggyback, Injection, Once, Administer over: 15 minutes, FirstDose: 02/15/24 8:14:00 EDT, Stop Date: 02/15/24 8:14:00 EDT, Physician Stop, STAT, 400 mL/hr amLODIPine, 5 mg = 1 tab, Oral, Tab, Once, First Dose: 02/15/24 9:00:00 EDT, Stop Date: 02/15/24 9:00:00 EDT, Physician Stop, Routine Sodium Chloride 0.9% 1,000 mL, Total Volume (mL): 1,000, 1,000 mL, Soln-IV, Hydration Bolus, 999 mL/hr, Order Duration: 1 doses, Start Date: 02/15/24 8:14:00 EDT, Stop Date: 02/15/24 9:13:00 EDT, 83.9 kg, Populate Charting Weight From Order, 1.98, m2 CT Abdomen and Pelvis w/ Contrast, 02/15/24 8:52:00 EDT, Stat, Reason: RUQ pain, US neg yvette, Transport Mode: Patient Bed GGT, Blood, Stat, 02/15/24 8:14:00 EDT, Once, Nurse collect US Abdomen Limited, 02/15/24 8:14:00 EDT, Stat, Reason: RUQ pain high likelihood Yvette, Transport Mode: Patient Bed Medication Reconciliation Unchanged acetaminophen (Tylenol Extra Strength 500 mg oral tablet)2 tab Oral (given by mouth) every 8 hours as needed as needed for pain. ?? hydroCHLOROthiazide (hydroCHLOROthiazide 12.5 mg oral tablet)1 tab Oral (given by mouth) every morning. ?? insulin glargine (Lantus Solostar Pen 100 units/mL subcutaneous solution)10 Units Subcutaneous (under the skin) every night at bedtime. ?? lisinopril (lisinopril 40 mg oral tablet)1 tab Oral (given by mouth) every day. for high blood pressure. ?? meloxicam (meloxicam 7.5 mg oral tablet)1 tab Oral (given by mouth) 2 times a day. take with food for pain. ?? metFORMIN (metFORMIN 1000 mg oral tablet)1 tab Oral (given by mouth) 2 times a day. Problem List/Past Medical History Ongoing Diabetes High cholesterol Hypertension Methicillin resistant Staphylococcus aureus Historical No qualifying data Medication Administration Given insulin aspart, 8 units, Subcutaneous Allergies sulfa drugs??(Rash) Triple Antibiotic??(Persistent redness of skin) Social History Alcohol Never Electronic Cigarette/Vaping Electronic Cigarette Use: Never. Home/Environment Living situation: Home/Independent. Substance Use Never Tobacco Never tobacco user Tobacco Use:. Diagnostic Results XR Chest 1 View 02/15/2024 08:14 EDT XR Chest 1 View ?? 02/15/24 08:12:31 EXAM DESCRIPTION: XR Chest 1 View ?? 02/15/2024 ?? INDICATION: CHEST PAIN ?? COMPARISON: None ?? FINDINGS: Clear lungs with no focal infiltrate or pulmonary edema. ?? Normal cardiomediastinal contour. ?? No significant pleural effusion or pneumothorax. ?? Spondylotic changes of the dorsal spine. ?? IMPRESSION: No active chest disease. ? JOB #: [id number] Electronically Signed By: ?? Signed By: Patricio Quarles MD Lab Results CBC and Differential?? LATEST RESULTS?? HISTORICAL RESULTS?? WBC?? 02/15/24 07:30?? 5.7?? 07/17/23?? 7.1?? RBC?? 02/15/24 07:30?? 5.01?? 07/17/23?? 4.25?? Hgb?? 02/15/24 07:30?? 15.7?? 07/17/23?? 12.9?? Hct?? 02/15/24 07:30?? 45.1?? 07/17/23?? 38.2?? MCV?? 02/15/24 07:30?? 90.1?? 07/17/23?? 89.8?? MCH?? 02/15/24 07:30?? 31.3 ??High?? 07/17/23?? 30.3?? MCHC?? 02/15/24 07:30?? 34.8?? 07/17/23?? 33.7?? RDW-CV?? 02/15/24 07:30?? 12.6?? 07/17/23?? 12.4?? Platelets?? 02/15/24 07:30?? 280?? 07/17/23?? 306?? MPV?? 02/15/24 07:30?? 9.7?? 07/17/23?? 8.8?? Neutro Auto?? 02/15/24 07:30?? 50.1?? 07/17/23?? 40.6 ??Low?? Lymph Auto?? 02/15/24 07:30?? 36.3?? 07/17/23?? 41.0?? Juab Auto?? 02/15/24 07:30?? 8.2?? 07/17/23?? 7.7?? Eos, Auto?? 02/15/24 07:30?? 4.30 ??High?? 07/17/23?? 10.00 ??High?? Basophil Auto?? 02/15/24 07:30?? 1.1 ??High?? 07/17/23?? 0.7?? Neutro Absolute?? 02/15/24 07:30?? 2.9?? 07/17/23?? 2.9?? Lymph Absolute?? 02/15/24 07:30?? 2.1?? 07/17/23?? 2.9?? Juab Absolute?? 02/15/24 07:30?? 0.5?? 07/17/23?? 0.6?? Eos Absolute?? 02/15/24 07:30?? 0.2?? 07/17/23?? 0.7 ??High?? Baso Absolute?? 02/15/24 07:30?? 0.1?? 07/17/23?? 0.0? Blood Gases?? LATEST RESULTS?? pH Michael?? 02/15/24 07:30?? 7.40?? pCO2 Michael?? 02/15/24 07:30?? 43.0?? HCO3 Venous?? 02/15/24 07:30?? 26.6?? CO2 Total Venous?? 02/15/24 07:30?? 27.9 ??High? Coagulation?? LATEST RESULTS?? Prothrombin Time?? 02/15/24 07:20?? 9.1?? INR?? 02/15/24 07:20?? 0.9? Routine Chemistry?? LATEST RESULTS?? HISTORICAL RESULTS?? Sodium Level?? 02/15/24 07:30?? 137?? 07/17/23?? 138?? Potassium Level?? 02/15/24 07:30?? 4.1?? 07/17/23?? 4.2?? Chloride Level?? 02/15/24 07:30?? 103?? 07/17/23?? 109 ??High?? CO2?? 02/15/24 07:30?? 25?? 07/17/23?? 24?? Alk Phos?? 02/15/24 07:30?? 111 ??High?? 07/15/23?? 139 ??High?? AST?? 02/15/24 07:30?? 49 ??High?? 07/15/23?? 12 ??Low?? ALT?? 02/15/24 07:30?? 46?? 07/15/23?? 16?? BUN?? 02/15/24 07:30?? 13?? 07/17/23?? 17?? Glucose Level?? 02/15/24 07:30?? 323 ??High?? 07/17/23?? 243 ??High?? Creatinine Level?? 02/15/24 07:30?? 0.60?? 07/17/23?? 0.60?? BUN/Creat Ratio?? 02/15/24 07:30?? 21.7 ??High?? 07/17/23?? 28.3 ??High?? eGFR CKD-EPI?? 02/15/24 07:30?? 103?? 07/17/23?? 103?? Calcium Level?? 02/15/24 07:30?? 9.0?? 07/17/23?? 8.6?? Protein Total?? 02/15/24 07:30?? 7.1?? 07/15/23?? 6.5?? Albumin Level?? 02/15/24 07:30?? 4.4?? 07/15/23?? 3.6?? Globulin?? 02/15/24 07:30?? 2.7?? 07/15/23?? 2.9?? A/G Ratio?? 02/15/24 07:30?? 1.6?? 07/15/23?? 1.2?? Bilirubin Total?? 02/15/24 07:30?? 0.4?? 07/15/23?? 0.7?? Anion Gap?? 02/15/24 07:30?? 9.0?? 07/17/23?? 5.0?? Lipase Level?? 02/15/24 07:30?? 25? Magnesium Level?? 02/15/24 07:30?? 1.8 ??Low? Osmolality?? 02/15/24 07:30?? 286?? 07/17/23?? 285?? Glucose POC?? 02/15/24 07:15?? 324?? 07/17/23?? 257? Cardiac Isoenzymes?? LATEST RESULTS?? Troponin-I HS?? 02/15/24 08:03?? 4? Electronically Signed on 02/15/2024 09:01 EDT Han Paulson MD Electronically Signed on 02/15/2024 09:17 EDT Han Paulson MD Emergency department Discharge instructions * Mary Washington MD: PERFORM Event Display: ED Discharge Information Authored Date: [id number] EARL ESTRADA :1965 Age:59 years Sex:Female Visit Date:02/15/2024 Primary Care Physician: ELLYN KAHN APRN Discharge Instructions We would like to thank you for allowing us to assist you with your healthcare needs. The following includes patient education materials and information regarding your injury/illness. Diagnosis from Today's Visit RUQ abdominal pain Discharge Vitals Temperature??(Temporal Artery) 97.3 ??F (36.3 ??C) Heart Rate??(Monitored) 77 Respiratory Rate?? 16 Blood Pressure?? 187/100?? SpO2?? 97% Height?? 65.98 in (167.6 cm) Weight?? 185.00 lb (83.9 kg) BMI?? 29.87 Allergies sulfa drugs??(Rash) Triple Antibiotic??(Persistent redness of skin) What to Do Next You Need to Schedule the Following Appointments Follow Up with??primary care physician When:??Within 3 to 5 days Why: Please follow-up with your primary care doctor both about your abdominal discomfort but also about the nodule seen in your left breast as you will need to get??an outpatient??mammogram scheduled??to further evaluate this Follow Up with??Jeffery Batres MD When:??Within 1 to 2 weeks Where: [address] [place] [id number]- You were treated today on an emergency [...] Much When Why Instructions Next Dose New esomeprazole (NexIUM 40 mg oral delayed release capsule) 1 Capsules Oral (given by mouth) Every day RUQ abdominal pain Duration: 30 Days Pickup at [facility] Unchanged acetaminophen (Tylenol Extra Strength 500 mg oral tablet) 2 tab Oral (given by mouth) Every 8 hours as needed for as needed for pain Unchanged hydroCHLOROthiazide (hydroCHLOROthiazide 12.5 mg oral tablet) 1 tab Oral (given by mouth) Every morning Unchanged insulin glargine (Lantus Solostar Pen 100 units/ mL subcutaneous solution) 10 Units Subcutaneous (under the skin) Every night at bedtime Unchanged lisinopril (lisinopril 40 mg oral tablet) 1 tab Oral (given by mouth) Every day for high blood pressure ?? Unchanged meloxicam (meloxicam 7.5 mg oral tablet) 1 tab Oral (given by mouth) 2 times a day take with food for pain ?? Unchanged metFORMIN (metFORMIN 1000 mg oral tablet) 1 tab Oral (given by mouth) 2 times a day Pharmacy Information [facility]: [address] [place] [address] [phone] Education Materials Abdominal Pain, Adult Pain in the abdomen (abdominal pain) can be caused by many things. Often, abdominal pain is not serious and it gets better with no treatment or by being treated at home. However, sometimes abdominal pain is serious. Your health care provider will ask questions about your medical history and do a physical exam to try to determine the cause of your abdominal pain. Follow these instructions at home: Medicines ? Take rxqj-umy-lwlbirn and prescription medicines only as told by your health care provider. ? Do not take a laxative unless told by your health care provider. General instructions ? Watch your condition for any changes. ? Drink enough fluid to keep your urine pale yellow. ? Keep all follow-up visits as told by your health care provider. This is important. Contact a health care provider if: ? Your abdominal pain changes or gets worse. ? You are not hungry or you lose weight without trying. ? You are constipated or have diarrhea for more than 2???3 days. ? You have pain when you urinate or have a bowel movement. ? Your abdominal pain wakes you up at night. ? Your pain gets worse with meals, after eating, or with certain foods. ? You are vomiting and cannot keep anything down. ? You have a fever. ? You have blood in your urine. Get help right away if: ? Your pain does not go away as soon as your health care provider told you to expect. ? You cannot stop vomiting. ? Your pain is only in areas of the abdomen, such as the right side or the left lower portion of the abdomen. Pain on the right side could be caused by appendicitis. ? You have bloody or black stools, or stools that look like tar. ? You have severe pain, cramping, or bloating in your abdomen. ? You have signs of dehydration, such as: ? Dark urine, very little urine, or no urine. ? Cracked lips. ? Dry mouth. ? Sunken eyes. ? Sleepiness. ? Weakness. ? You have trouble breathing or chest pain. Summary ? Often, abdominal pain is not serious and it gets better with no treatment or by being treated at home. However, sometimes abdominal pain is serious. ? Watch your condition for any changes. ? Take [id number]-[id number] and prescription medicines only as told by your health care provider. ? Contact a health care provider if your abdominal pain changes or gets worse. ? Get help right away if you have severe pain, cramping, or bloating in your abdomen. This information is not intended to replace advice given to you by your health care provider. Make sure you discuss any questions you have with your health care provider. Document Revised: 08/27/2020 Document Reviewed: 11/17/2019 [employer] Patient Education ?? 2022 [employer] Tests Performed Radiology CT Abdomen and Pelvis w/ Contrast 02/15/2024 09:43 EDT US Abdomen Limited 02/15/2024 09:08 EDT XR Chest 1 View 02/15/2024 08:14 EDT Medications and Immunizations Administered Given Sodium Chloride 0.9%, 1000 mL, Hydration Bolus acetaminophen, 1000 mg, IV Piggyback amLODIPine, 5 mg, Oral insulin aspart, 8 units, Subcutaneous Lab Test Name Test Result Date/Time WBC 5.7 K/mcL 02/15/2024 07:30 EDT RBC 5.01 Million/mcL 02/15/2024 07:30 EDT Hgb 15.7 g/dL 02/15/2024 07:30 EDT Hct 45.1 % 02/15/2024 07:30 EDT MCV 90.1 fL 02/15/2024 07:30 EDT MCH 31.3 pg 02/15/2024 07:30 EDT MCHC 34.8 g/dL 02/15/2024 07:30 EDT RDW-CV 12.6 % 02/15/2024 07:30 EDT Platelets 280 K/mcL 02/15/2024 07:30 EDT MPV 9.7 fL 02/15/2024 07:30 EDT Neutro Auto 50.1 % 02/15/2024 07:30 EDT Lymph Auto 36.3 % 02/15/2024 07:30 EDT Juab Auto 8.2 % 02/15/2024 07:30 EDT Eos, Auto 4.30 % 02/15/2024 07:30 EDT Basophil Auto 1.1 % 02/15/2024 07:30 EDT Neutro Absolute 2.9 K/mcL 02/15/2024 07:30 EDT Lymph Absolute 2.1 K/mcL 02/15/2024 07:30 EDT Juab Absolute 0.5 K/mcL 02/15/2024 07:30 EDT Eos Absolute 0.2 K/mcL 02/15/2024 07:30 EDT Baso Absolute 0.1 K/mcL 02/15/2024 07:30 EDT pH Michael 7.40 pH unit(s) 02/15/2024 07:30 EDT pCO2 Michael 43.0 mmHg 02/15/2024 07:30 EDT HCO3 Venous 26.6 mmol/L 02/15/2024 07:30 EDT CO2 Total Venous 27.9 mmol/L 02/15/2024 07:30 EDT Prothrombin Time 9.1 seconds 02/15/2024 07:20 EDT INR 0.9 02/15/2024 07:20 EDT Sodium Level 137 mmol/L 02/15/2024 07:30 EDT Potassium Level 4.1 mmol/L 02/15/2024 07:30 EDT Chloride Level 103 mmol/L 02/15/2024 07:30 EDT CO2 25 mmol/L 02/15/2024 07:30 EDT Alk Phos 111 IntlUnit/L 02/15/2024 07:30 EDT AST 49 IntlUnit/L 02/15/2024 07:30 EDT ALT 46 IntlUnit/L 02/15/2024 07:30 EDT BUN 13 mg/dL 02/15/2024 07:30 EDT Glucose Level 323 mg/dL 02/15/2024 07:30 EDT Creatinine Level 0.60 mg/dL 02/15/2024 07:30 EDT BUN/Creat Ratio 21.7 02/15/2024 07:30 EDT eGFR CKD-EPI 103 mL/min/1.73 m2 02/15/2024 07:30 EDT Calcium Level 9.0 mg/dL 02/15/2024 07:30 EDT Protein Total 7.1 g/dL 02/15/2024 07:30 EDT Albumin Level 4.4 g/dL 02/15/2024 07:30 EDT Globulin 2.7 g/dL 02/15/2024 07:30 EDT A/G Ratio 1.6 g/dL 02/15/2024 07:30 EDT Bilirubin Total 0.4 mg/dL 02/15/2024 07:30 EDT Anion Gap 9.0 02/15/2024 07:30 EDT Lipase Level 25 unit/L 02/15/2024 07:30 EDT Magnesium Level 1.8 mg/dL 02/15/2024 07:30 EDT Osmolality 286 mOsm/kg 02/15/2024 07:30 EDT Glucose POC 235 02/15/2024 09:59 EDT Troponin-I HS 4 ng/L 02/15/2024 08:03 EDT Patient/Radio Electronics Technician Signature Patient Name:EARL ESTRADA I have received this information and my questions have been answered. Patient/Radio Electronics Technician Name: Patient/Radio Electronics Technician Signature: Relationship to Patient: Witness Name/Signature: Date: Electronically Signed on: 02/15/2024 10:32 EDTSigned by: Patient Care team information Care Team Personnel Name: ELLYN KAHN APRN Position: No Access Member Role: Primary Care Physician Address: Address: [address] [place] [id number] Care Team Related Persons Name: TRACI ESTRADA Name: TRACI ESTRADA
--- OUTSIDE RECORDS SUMMARY | 2024-02-17 09:34 | XMS_ITS | Continuity of Care Document ---
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 Name Role Phone ELLYN KAHN APRN Primary Care Physician Encounter LTTL_ME FIN NBR [id number] Date(s): 11/16/23 - 11/16/[address] [id number] Encounter Diagnosis Muscle spasm(Discharge Diagnosis) - 11/16/23 Lumbago(Discharge Diagnosis) - 11/16/23 Discharge Disposition: Home f/u Internal Provider Attending Physician: Jeffery Handy DO Admitting Physician: Jeffery Handy DO Allergies, Adverse Reactions, Alerts Substance Reaction Severity Status Triple Antibiotic Persistent redness of skin Mild Active sulfa drugs 1 Rash Moderate Active 1tolerates hctz, no rash Assessment and Plan Extracted from: Title:ED Provider Note Author:LY Royal Date:11/16/23 Assessment/Plan 1.??Muscle spasm??M62.838 ??Patient discharged home. ??Will treat supportively??with??topical analgesics, NSAIDs and muscle relaxer. ??Has??close follow-up with her primary care already established and strict return precautions understood. Ordered: cyclobenzaprine 5 mg oral tablet, 5 mg = 1 tab, Oral, BID, PRN as needed for muscle spasm, X 5 days, # 10 tab, 0 Refill(s), 11/21/23 15:53:00 EDT, Pharmacy: [facility], 167, cm, 07/15/23 15:51:00 EST, Height, 83, kg, 07/15/23 8:09:00 EST, Weight Dosing lidocaine 5% topical film, 1 patches, Topical, Daily, remove patches after 12 hours, X 7 days, # 7 patches, 0 Refill(s), 11/23/23 16:51:00 EDT, Pharmacy: [facility], 167, cm, 07/15/23 15:51:00 EST, Height, 83, kg, 07/15/23 8:09:00 EST, Weight Dosing Discharge Patient, 11/16/23 16:50:00 EDT, Home Independently ?? 2.??Lumbago??M54.50 Ordered: cyclobenzaprine 5 mg oral tablet, 5 mg = 1 tab, Oral, BID, PRN as needed for muscle spasm, X 5 days, # 10 tab, 0 Refill(s), 11/21/23 15:53:00 EDT, Pharmacy: [facility], 167, cm, 07/15/23 15:51:00 EST, Height, 83, kg, 07/15/23 8:09:00 EST, Weight Dosing lidocaine 5% topical film, 1 patches, Topical, Daily, remove patches after 12 hours, X 7 days, # 7 patches, 0 Refill(s), 11/23/23 16:51:00 EDT, Pharmacy: [facility], 167, cm, 07/15/23 15:51:00 EST, Height, 83, kg, 07/15/23 8:09:00 EST, Weight Dosing Discharge Patient, 11/16/23 16:50:00 EDT, Home Independently ?? Patient Education Acute Back Pain, Adult Heat Therapy Follow Up With When Contact Information ELLYN KAHN APRN Within 1 week [address] [place] [address]- ?? Additional Instructions: Future Appointments Future Scheduled Tests Laboratory* Pathology Request 07/01/23 Radiology* US Abdomen Complete 11/09/23 * US Abdomen Complete 11/26/23 Medications cyclobenzaprine 5 mg oral tablet 5 mg = 1 tab, Oral, BID, PRN as needed for muscle spasm, X 5 days, # 10 tab, 0 Refill(s), 11/21/23 2:53:00 PM CDT, Pharmacy: [facility], 167, cm, 07/15/23 15:51:00 EST, Height, 83, kg, 07/15/23 8:09:00 EST, Weight Dosing Start Date: 11/16/23 Stop Date: 11/21/23 Status: Ordered hydroCHLOROthiazide 12.5 mg oral tablet 12.5 mg = 1 tab, Oral, every morning Start Date: 11/16/23 Status: Ordered Lantus Solostar Pen 100 units/mL subcutaneous solution 10 units =, Subcutaneous, every night at bedtime Start Date: 11/16/23 Status: Ordered lidocaine 5% topical film 1 patches, Topical, Daily, remove patches after 12 hours, X 7 days, # 7 patches, 0 Refill(s), 11/23/23 3:51:00 PM CDT, Pharmacy: [facility], 167, cm, 07/15/23 15:51:00 EST, Height, 83, kg, 07/15/23 8:09:00 EST, Weight Dosing Start Date: 11/16/23 Stop Date: 11/23/23 Status: Ordered lisinopril 40 mg oral tablet [...] 0 Refill(s) Start Date: 09/28/22 Status: Ordered Tylenol Extra Strength 500 mg oral tablet 1,000 mg = 2 tab, Oral, every 8 hr, PRN as needed for pain, 0 Refill(s) Start Date: 07/15/23 Status: Ordered Mental Status 11/16/23 Eye Opening Response Farina Spontaneous ly Best Verbal Response Farina Oriented Best Motor Response Lianet Obeys comman ds Farina Coma Score 15 Problem List Condition Confirmation Course Effective Dates Status H ealth Status Informant Diabetes Confirmed Active High cholesterol Confirmed Active Hypertension Confirmed Active Methicillin resistant Staphylococcus aureus 1 Confirmed 07/18/23 Active 1Problem added by Rule (LH_IC_MDRO_MRSA) following Wound Culture Deep from Abscess collected on 16-JUL-2023 16:51:00 EST tested positive for MRSA. Results Laboratory List Name Date Urinalysis with Micro if Indicated and C ulture if Indicated 11/16/23 Most recent to oldest [Reference Range]: 1 UA Color [Yellow] Yellow (11/16/23 4:32 PM) UA Urobilinogen [0.2] 0.2 (11/16/23 4:32 PM) UA Bili [Negative] Negative (11/16/23 4:32 PM) UA Ketones [Negative] Negative (11/16/23 4:32 PM) UA Leuk Est [Negative] Negative (11/16/23 4:32 PM) UA Nitrite [Negative] Negative (11/16/23 4:32 PM) UA Glucose [Negative] 500 *ABN* (11/16/23 4:32 PM) UA Protein [Negative] Negative (11/16/23 4:32 PM) UA Blood [Negative] Negative (11/16/23 4:32 PM) UA Spec Grav [1.001-1.030] >=1.030 *NA* (11/16/23 4:32 PM) UA pH [5.00-9.00] 5.50 (11/16/23 4:32 PM) UA Appear [Clear] Clear (11/16/23 4:32 PM) Urine Srce Clean Catch (11/16/23 4:32 PM) Vital Signs Most recent to oldest [Reference Range]: 1 2 3 Temperature Oral [35.8-37.3 Deg C] 36.7 Deg C (11/16/23 2:58 PM) Peripheral Pulse Rate [60-100 bpm] 76 bpm (11/16/23 5:06 PM) 87 bpm (11/16/23 2:58 PM) Respiratory Rate [12-24 br/min] 16 br/min (11/16/23 5:06 PM) 16 br/min (11/16/23 2:58 PM) Blood Pressure [90-140/60-90 mmHg] 180/100mmHg *HI* (11/16/23 5:06 PM) 190/109mmHg *HI* (11/16/23 4:02 PM) 184/106mmHg *HI* (11/16/23 2:58 PM) Mean Arterial Pressure, Cuff [65-140 mmHg] 127 mmHg (11/16/23 5:06 PM) 132 mmHg (11/16/23 2:58 PM) Weight Estimated 79 kg (11/16/23 2:58 PM) Body Mass Index Estimated 28.33 kg/m2 (11/16/23 2:58 PM) Height/Length Estimated 167 cm (11/16/23 2:58 PM) Social History Social History Type Response Tobacco Never tobacco user T obacco Use:. Sex Hospital Discharge Instructions Patient Education 11/16/2023 15:52:00 Acute Back Pain, Adult Acute Back Pain, Adult Acute back pain is sudden and usually short-lived. It is often caused by an injury to the muscles and tissues in the back. The injury may result from: ??? A muscle, tendon, or ligament getting overstretched or torn. Ligaments are tissues that connectbones to each other. Lifting something improperly can cause a back strain. ??? Wear and tear (degeneration) of the spinal disks. Spinal disks are circular tissue that providecushioning between the bones of the spine (vertebrae). ??? Twisting motions, such as while playing sports or doing yard work. ??? A hit to the back. ??? Arthritis. You may have a physical exam, lab tests, and imaging tests to find the cause of your pain. Acute back pain usually goes away with rest and home care. Follow these instructions at home: Managing pain, stiffness, and swelling ??? Take huzz-txe-tepjrls and prescription medicines only as told by your health care provider. Treatment may include medicines for pain and inflammation that are taken by mouth or applied to the skin, or muscle relaxants. ??? Your health care provider may recommend applying ice during the first 24???48 hours after your pain starts. To do this: ??? Put ice in a plastic bag. ??? Place a towel between your skin and the bag. ??? Leave the ice on for 20 minutes, 2???3 times a day. ??? Remove the ice if your skin turns bright red. This is very important. If you cannot feel pain, heat, or cold, you have a greater risk of damage to the area. ??? If directed, apply heat to the affected area as often as told by your health care provider. Usethe heat source that your health care provider recommends, such as a moist heat pack or a heating pad. ??? Place a towel between your skin and the heat source. ??? Leave the heat on for 20???30 minutes. ??? Remove the heat if your skin turns bright red. This is especially important if you are unable to feel pain, heat, or cold. You have a greater risk of getting burned. Activity ??? Do not stay in bed. Staying in bed for more than 1???2 days can delay your recovery. ??? Sit up and stand up straight. Avoid leaning forward when you sit or hunching over when you stand. ??? If you work at a desk, sit close to it so you do not need to lean over. Keep your chin tucked in. Keep your neck drawn back, and keep your elbows bent at a 90-degree angle (right angle). ??? Sit high and close to the steering wheel when you drive. Add lower back (lumbar) support to your car seat, if needed. ??? Take short walks on even surfaces as soon as you are able. Try to increase the length of time you walk each day. ??? Do not sit, drive, or lockstitch shoulder joiner one place for more than 30 minutes at a time. Sitting or standing for long periods of time can put stress on your back. ??? Do not drive or use heavy machinery while taking prescription pain medicine. ??? Use proper lifting techniques. When you bend and lift, use positions that put less stress on your back: ??? Bend your knees. ??? Keep the load close to your body. ??? Avoid twisting. ??? Exercise regularly as told by your health care provider. Exercising helps your back heal fasterand helps prevent back injuries by keeping muscles strong and flexible. ??? Work with a physical therapist to make a safe exercise program, as recommended by your health care provider. Do any exercises as told by your physical therapist. Lifestyle ??? Maintain a healthy weight. Extra weight puts stress on your back and makes it difficult to havegood posture. ??? Avoid activities or situations that make you feel anxious or stressed. Stress and anxiety increase muscle tension and can make back pain worse. Learn ways to manage anxiety and stress, such as through exercise. General instructions ??? Sleep on a firm mattress in a comfortable position. Try lying on your side with your knees slightly bent. If you lie on your back, put a pillow under your knees. ??? Keep your head and neck in a straight line with your spine (neutral position) when using electronic equipment like smartphones or pads. To do this: ??? Raise your smartphone or pad to look at it instead of bending your head or neck to look down. ??? Put the smartphone or pad at the level of your face while looking at the screen. ??? Follow your treatment plan as told by your health care provider. This may include: ??? Cognitive or behavioral therapy. ??? Acupuncture or massage therapy. ??? Meditation or yoga. Contact a health care provider if: ??? You have pain that is not relieved with rest or medicine. ??? You have increasing pain going down into your legs or buttocks. ??? Your pain does not improve after 2 weeks. ??? You have pain at night. ??? You lose weight without trying. ??? You have a fever or chills. ??? You develop nausea or vomiting. ??? You develop abdominal pain. Get help right away if: ??? You develop new bowel or bladder control problems. ??? You have unusual weakness or numbness in your arms or legs. ??? You feel faint. These symptoms may represent a serious problem that is an emergency. Do not wait to see if the symptoms will go away. Get medical help right away. Call your local emergency services (911 in the [place] Do not drive yourself to the hospital. Summary ??? Acute back pain is sudden and usually short-lived. ??? Use proper lifting techniques. When you bend and lift, use positions that put less stress on your back. ??? Take alts-nri-rihucys and prescription medicines only as told by your health care provider, andapply heat or ice as told. This information is not intended to replace advice given to you by your health care provider. Make sure you discuss any questions you have with your health care provider. Document Revised: 09/30/2021 Document Reviewed: 09/30/2021 [employer] Patient Education ?? 2022 [employer]. 11/16/2023 15:51:51 Heat Therapy Heat Therapy Heat therapy is the use of heat to help ease sore, stiff, injured, and tight muscles and joints. Heat relaxes muscles, which may help to relieve pain and muscle spasms. What are the risks? If you have any of the following conditions, do not use heat therapy unless your health care provider approves. These conditions include: ??? New bruises. ??? Open wounds. ??? Healing wounds, infected skin, or scarred skin in the area being treated. ??? Poor circulation. ??? Numbness in the area being treated. ??? Unusual swelling of the area being treated. ??? Blood clots. ??? Diabetes or heart disease. ??? Cancer. ??? Inability to communicate pain. This may include young children and people who have problems with their brain function (dementia). How to use heat therapy Use the heat source that your health care provider recommends, such as: ??? Moist heat pack. ??? Hot water bottle. ??? Electric heating pad. ??? Heated gel pack. ??? Heated wrap. ??? Warm water bath. Follow your health care provider's instructions about when and how to use heat therapy. In general,you should: 1. Place a towel between your skin and the heat source. 2. Leave the heat on for 20???30 minutes. Your skin may turn pink. 3. Remove the heat if your skin turns bright red. This is especially important if you are unable tofeel pain, heat, or cold. You may have a greater risk of getting burned. If directed, you can also soak in a warm water bath. To prepare: 1. Put a non-slip padding in the bathtub to prevent slips or falls. 2. Fill a bathtub with warm water. 3. Always check the water temperature before getting into the bathtub. 4. Soak in the water for 15???20 minutes, or for as long as you are told by your health care provider. 5. When you are done, carefully stand up. You may feel dizzy. 6. After the bath, pat yourself dry. Do not rub your skin to dry it. General recommendations ??? Be careful to avoid burning your skin. High heat or long exposure to heat can cause kirk. ??? Do not sleep while using heat therapy. Only use heat therapy while you are awake. ??? Check your skin during heat therapy. ??? Do not use heat therapy: ??? For new injuries, especially if you have swelling on the injured area. ??? On areas of skin that are already irritated, such as with a rash or sunburn. ??? If your skin turns bright red. Contact a health care provider if you have: ??? Blisters, redness, swelling, or numbness in the area where you use heat therapy. ??? New pain. ??? Pain that gets worse. Summary ??? Heat therapy is the use of heat to help ease sore, stiff, injured, and tight muscles and joints. Heat relaxes muscles, which may help relieve pain. ??? If you have poor circulation, healing wounds, diabetes, numbness or swelling in the treatment area, blood clots, cancer, or the inability to communicate pain, do not use heat therapy unless your health care provider approves. ??? Be careful to avoid burning your skin. Only use heat therapy while you are awake. ??? Follow your health care provider's instructions about when and how to use heat therapy. This information is not intended to replace advice given to you by your health care provider. Make sure you discuss any questions you have with your health care provider. Document Revised: 05/11/2021 Document Reviewed: 05/11/2021 [employer] Patient Education ?? 2022 [employer] Follow Up Care 11/16/2023 14:47:37 With:ELLYN KAHN APRN Address: [address] [place] [address]- When:1 week Physician Emergency department Note * LY Royal: PERFORM Event Display: ED Note Physician Authored Date: [id number] JOSMICHELLE EARL Johnathon :1965 Age:58 years Sex:Female Visit Date:11/16/2023 Primary Care Physician: ELLYN KAHN APRN Basic Information Time Seen: LY Royal / 11/16/2023 14:50 Chief Complaint Pt arrives with complaints of low back pain that has persisted since last night. Pt states she has hx of gallbladder issues. History Of Present Illness: This is a 58-year-old female with history of biliary colic??currently being worked up by her primary care here for concerns of low back pain.?? She explains that the back pain has been consistent forthe past??3 days and started around 4 in the afternoon.?? 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 She??has had right upper abdominal pain and nausea which occurs after eating??for the past few months.?? She??has had recent labs done and has a??ultrasound scheduled for next week.?? She is not currently having any abdominal pains. ??Denies any flank pains. ??Denies any nausea vomiting or fevers.?? Has been ambulating well.?? Explains that she does have a limp due to a??meniscal injury of the left knee??but??explains the back pain has not affected her gait.?Denies??paresthesias or paralysis. Review of Systems: See HPI Physical Exam Vitals & Measurements T:??36.7?C ??(Oral)?? HR:??76??(Peripheral)?? RR:??16?? BP:??180/100?? SpO2:??96%?? HT:??167??cm?? WT:??79??kg??(Estimated)?? BMI:??28.33?? Pain Score:??4?? O2 Therapy:??Room air?? General: Patient is alert and engaging, appears well. Is in no acute distress. Speaking comfortablyin full sentences.?? Constitutional: No fevers, chills or diaphoresis.?? HEENT: Head normocephalic and atraumatic. Neck supple with FROM w/o lymphadenopathy or JVD. Tracheamidline. No c-spine tenderness. EOMs intact w/o pain. Pupils equal and reactive to light. TMs visulized bilaterally with normal color and landmarks present w/o erythema or effusion.?? Respiratory: ??No obvious work of breathing, regular rate. BS equal b/l, clear to auscultation.?? Cardiovascular: Heart regular rate and rhythm w/o murmurs, rubs or gallops. No peripheral edema present.?? GI: normoactive BS. Abdomen soft non tender, nondistended without guarding, rebound or rigidity. NoHSM Back: TTP of the lumbar spine and paraspinals. FROM of the lumbar spine, with flexion and rotation.Normal gait.?? Extremities: No obvious deformities. FROM.?? Integumentary: Skin warm and pink. No rashes or ecchymosis present.?? Neuro: CN III-XII grossly intact.?? Psychiatric: acting appropriate for age and circumstance. Normal mood without obvious ??affect.?? Medical Decision Making: This is a pleasant well-appearing 58-year-old female??here for concern of low back pain. ??Vitals obtained and reviewed. ??BP elevated. ??States that she did not take her hypertensive this to have medications this morning??she was given her daily dose of lisinopril. ??It did decrease on repeat. ??She has no acute distress. ??Patient is ambulating well around the room with good range of motion of the back however??describes pain at the??extent of??flexion and with tenderness to palpation to the lumbar spine and paraspinals.?? She is??afebrile and hemodynamically stable.?? There is no??history of trauma to the back??or history suspicious for malignancy.?? Neurological exam is??normal. ??She is not experiencing any??weakness,??neurological deficits, abdominal pains, saddle anesthesia bowel or bladder??incontinence or dysfunction.?? Do not suspect pyelonephritis, biliary colic,??spinal abscess, cauda equina,??aortic dissection, malignacy?? based on history??and physical.?Do not feel that imaging would be??beneficial at this time. ??She was given??Toradol IM lidocaine patches while inthe ED with some improvement. ??Patient does describe a history of biliary colic however this pain is??in the lumbar spine and does not radiate into the abdomen. ??Do not believe that this is in relation to her gallbladder. ??Discussed??outpatient treatment with??course of NSAIDs, lidocaine patchesand topical analgesics??and patient is agreeable to this??plan. Has close follow-up with her primary care already established. Procedure No Qualifying Data Assessment/Plan 1.??Muscle spasm??M62.838 ??Patient discharged home. ??Will treat supportively??with??topical analgesics, NSAIDs and muscle relaxer. ??Has??close follow-up with her primary care already established and strict return precautions understood. Ordered: cyclobenzaprine 5 mg oral tablet, 5 mg = 1 tab, Oral, BID, PRN as needed for muscle spasm, X 5 days, # 10 tab, 0 Refill(s), 11/21/23 15:53:00 EDT, Pharmacy: [facility], 167, cm, 07/15/23 15:51:00 EST, Height, 83, kg, 07/15/23 8:09:00 EST, Weight Dosing lidocaine 5% topical film, 1 patches, Topical, Daily, remove patches after 12 hours, X 7 days, # 7 patches, 0 Refill(s), 11/23/23 16:51:00 EDT, Pharmacy: [facility], 167, cm, 07/15/23 15:51:00 EST, Height, 83, kg, 07/15/23 8:09:00 EST, Weight Dosing Discharge Patient, 11/16/23 16:50:00 EDT, Home Independently ?? 2.??Lumbago??M54.50 Ordered: cyclobenzaprine 5 mg oral tablet, 5 mg = 1 tab, Oral, BID, PRN as needed for muscle spasm, X 5 days, # 10 tab, 0 Refill(s), 11/21/23 15:53:00 EDT, Pharmacy: [facility], 167, cm, 07/15/23 15:51:00 EST, Height, 83, kg, 07/15/23 8:09:00 EST, Weight Dosing lidocaine 5% topical film, 1 patches, Topical, Daily, remove patches after 12 hours, X 7 days, # 7 patches, 0 Refill(s), 11/23/23 16:51:00 EDT, Pharmacy: [facility], 167, cm, 07/15/23 15:51:00 EST, Height, 83, kg, 07/15/23 8:09:00 EST, Weight Dosing Discharge Patient, 11/16/23 16:50:00 EDT, Home Independently ?? Patient Education Acute Back Pain, Adult Heat Therapy Follow Up With When Contact Information ELLYN KAHN APRN Within 1 week [address] [place] [address]- Additional Instructions: Medication Reconciliation New Prescription cyclobenzaprine (cyclobenzaprine 5 mg oral tablet)1 tab Oral (given by mouth) 2 times a day as needed as needed for muscle spasm for 5 Days. Refills: 0. ?? lidocaine topical (lidocaine 5% topical film)1 patch(es) Topical (on the skin) every day for 7 Days. remove patches after 12 hours. Refills: 0. ?? Unchanged acetaminophen (Tylenol Extra Strength 500 mg [...] Historical No qualifying data Medication Administration Given lidocaine 5% topical film, 1 patches, Transdermal. For: Muscle spasm,??Lumbago lisinopril, 40 mg, Oral. For: Muscle spasm,??Lumbago Toradol, 30 mg, Intramuscular Allergies sulfa drugs??(Rash) Triple Antibiotic??(Persistent redness of skin) Social History Alcohol Never Electronic Cigarette/Vaping Electronic Cigarette Use: Never. Home/Environment Living situation: Home/Independent. Substance Use Never Tobacco Never tobacco user Tobacco Use:. Lab Results UA Macroscopic?? LATEST RESULTS?? Urine Srce?? 11/16/23 16:32?? Clean Catch?? UA Color?? 11/16/23 16:32?? Yellow?? UA Appear?? 11/16/23 16:32?? Clear?? UA Glucose?? 11/16/23 16:32?? 500 Abnormal?? UA Bili?? 11/16/23 16:32?? Negative?? UA Ketones?? 11/16/23 16:32?? Negative?? UA Spec Grav?? 04/26/24 16:32?? >=1.030?? UA Blood?? 11/16/23 16:32?? Negative?? UA pH?? 11/16/23 16:32?? 5.50?? UA Protein?? 11/16/23 16:32?? Negative?? UA Urobilinogen?? 11/16/23 16:32?? 0.2?? UA Nitrite?? 11/16/23 16:32?? Negative?? UA Leuk Est?? 11/16/23 16:32?? Negative? Electronically Signed on 11/16/23 06:46 PM LY Royal Emergency department Discharge instructions * LY Royal: PERFORM Event Display: ED Discharge Information Authored Date: [id number] EARL ESTRADA :1965 Age:58 years Sex:Female Visit Date:11/16/2023 Primary Care Physician: ELLYN KAHN APRN Discharge Instructions We would like to thank you for allowing us to assist you with your healthcare needs. The following includes patient education materials and information regarding your injury/illness. Diagnosis from Today's Visit Muscle spasm Lumbago Discharge Vitals Temperature??(Oral) 98.1 ??F (36.7 ??C) Heart Rate??(Peripheral) 87 Respiratory Rate?? 16 Blood Pressure?? 190/109?? SpO2?? 100% Height?? 65.75 in (167 cm) Weight??(Estimated) 174.20 lb (79 kg) BMI?? 28.33 Allergies sulfa drugs??(Rash) Triple Antibiotic??(Persistent redness of skin) What to Do Next Instructions from Your Care Team You are seen here for low back pain. ??I believe this is muscular skeletal in nature.?? Due to its location and I do not??believe it is??in relation to??the biliary colic you have experienced in the past.?I sent in a prescription for muscle relaxant??and lidocaine patches to use. ??Please use warm compresses over the area and can use a topical analgesics such as Arnica or emu ointment as well.??Please have close follow-up with your primary care within the next week. ??Please continue your??workup for the biliary colic and have your ultrasound done on November 25 as was previously scheduled. ??Return to the emergency room with any abdominal pain, loss of movement or sensation of the upper or lower extremities. ??And any upper back pains fevers or inability to??have bowel movements or urinate. You Need to Schedule the Following Appointments Follow Up with??ELLYN KAHN APRN When:??Within 1 week Where: [address] [place] [address] [id number]- Upcoming Scheduled Appointments Sunday. 2023 7:00 AM EDT ?? Where: [facility] Diagnostic Imaging Status: Confirmed You were treated today on an emergency [...] Much When Why Instructions Next Dose New cyclobenzaprine (cyclobenzaprine 5 mg oral tablet) 1 tab Oral (given by mouth) 2 times a day as needed for as needed for muscle spasm Muscle spasm Lumbago Duration: 5 Days Pickup at [facility] New lidocaine topical (lidocaine 5% topical film) 1 patch(es) Topical (on the skin) Every day Muscle spasm Lumbago Duration: 7 Days remove patches after 12 hours ?? Pickup at [facility] Unchanged acetaminophen (Tylenol Extra Strength 500 [...] mouth) 2 times a day Pharmacy Information [facility]: [address], [place] [id number] [phone] Education Materials Acute Back Pain, Adult Acute back pain is sudden and usually short-lived. It is often caused by an injury to the muscles and tissues in the back. The injury may result from: ? A muscle, tendon, or ligament getting overstretched or torn. Ligaments are tissues that connect bones to each other. Lifting something improperly can cause a back strain. ? Wear and tear (degeneration) of the spinal disks. Spinal disks are circular tissue that provide cushioning between the bones of the spine (vertebrae). ? Twisting motions, such as while playing sports or doing yard work. ? A hit to the back. ? Arthritis. You may have a physical exam, lab tests, and imaging tests to find the cause of your pain. Acute back pain usually goes away with rest and home care. Follow these instructions at home: Managing pain, stiffness, and swelling ? Take angw-bfc-pgrrgkd and prescription medicines only as told by your health care provider. Treatment may include medicines for pain and inflammation that are taken by mouth or applied to the skin, or muscle relaxants. ? Your health care provider may recommend applying ice during the first 24???48 hours after your painstarts. To do this: ? Put ice in a plastic bag. ? Place a towel between your skin and the bag. ? Leave the ice on for 20 minutes, 2???3 times a day. ? Remove the ice if your skin turns bright red. This is very important. If you cannot feel pain, heat, or cold, you have a greater risk of damage to the area. ? If directed, apply heat to the affected area as often as told by your health care provider. Use theheat source that your health care provider recommends, such as a moist heat pack or a heating pad. ? Place a towel between your skin and the heat source. ? Leave the heat on for 20???30 minutes. ? Remove the heat if your skin turns bright red. This is especially important if you are unable to feel pain, heat, or cold. You have a greater risk of getting burned. Activity ? Do not stay in bed. Staying in bed for more than 1???2 days can delay your recovery. ? Sit up and stand up straight. Avoid leaning forward when you sit or hunching over when you stand. ? If you work at a desk, sit close to it so you do not need to lean over. Keep your chin tucked in. Keep your neck drawn back, and keep your elbows bent at a 90-degree angle (right angle). ? Sit high and close to the steering wheel when you drive. Add lower back (lumbar) support to your car seat, if needed. ? Take short walks on even surfaces as soon as you are able. Try to increase the length of time you walk each day. ? Do not sit, drive, or lockstitch shoulder joiner one place for more than 30 minutes at a time. Sitting or standing for long periods of time can put stress on your back. ? Do not drive or use heavy machinery while taking prescription pain medicine. ? Use proper lifting techniques. When you bend and lift, use positions that put less stress on your back: ? Bend your knees. ? Keep the load close to your body. ? Avoid twisting. ? Exercise regularly as told by your health care provider. Exercising helps your back heal faster andhelps prevent back injuries by keeping muscles strong and flexible. ? Work with a physical therapist to make a safe exercise program, as recommended by your health care provider. Do any exercises as told by your physical therapist. Lifestyle ? Maintain a healthy weight. Extra weight puts stress on your back and makes it difficult to have good posture. ? Avoid activities or situations that make you feel anxious or stressed. Stress and anxiety increase muscle tension and can make back pain worse. Learn ways to manage anxiety and stress, such as through exercise. General instructions ? Sleep on a firm mattress in a comfortable position. Try lying on your side with your knees slightlybent. If you lie on your back, put a pillow under your knees. ? Keep your head and neck in a straight line with your spine (neutral position) when using electronicequipment like smartphones or pads. To do this: ? Raise your smartphone or pad to look at it instead of bending your head or neck to look down. ? Put the smartphone or pad at the level of your face while looking at the screen. ? Follow your treatment plan as told by your health care provider. This may include: ? Cognitive or behavioral therapy. ? Acupuncture or massage therapy. ? Meditation or yoga. Contact a health care provider if: ? You have pain that is not relieved with rest or medicine. ? You have increasing pain going down into your legs or buttocks. ? Your pain does not improve after 2 weeks. ? You have pain at night. ? You lose weight without trying. ? You have a fever or chills. ? You develop nausea or vomiting. ? You develop abdominal pain. Get help right away if: ? You develop new bowel or bladder control problems. ? You have unusual weakness or numbness in your arms or legs. ? You feel faint. These symptoms may represent a serious problem that is an emergency. Do not wait to see if the symptoms will go away. Get medical help right away. Call your local emergency services (911 in the [place] Do not drive yourself to the hospital. Summary ? Acute back pain is sudden and usually short-lived. ? Use proper lifting techniques. When you bend and lift, use positions that put less stress on your back. ? Take jjjm-hlh-wvtysve and prescription medicines only as told by your health care provider, and apply heat or ice as told. This information is not intended to replace advice given to you by your health care provider. Make sure you discuss any questions you have with your health care provider. Document Revised: 09/30/2021 Document Reviewed: 09/30/2021 Elsevier Patient Education ?? 2022 [employer] Heat Therapy Heat therapy is the use of heat to help ease sore, stiff, injured, and tight muscles and joints. Heat relaxes muscles, which may help to relieve pain and muscle spasms. What are the risks? If you have any of the following conditions, do not use heat therapy unless your health care provider approves. These conditions include: ? New bruises. ? Open wounds. ? Healing wounds, infected skin, or scarred skin in the area being treated. ? Poor circulation. ? Numbness in the area being treated. ? Unusual swelling of the area being treated. ? Blood clots. ? Diabetes or heart disease. ? Cancer. ? Inability to communicate pain. This may include young children and people who have problems with their brain function (dementia). How to use heat therapy Use the heat source that your health care provider recommends, such as: ? Moist heat pack. ? Hot water bottle. ? Electric heating pad. ? Heated gel pack. ? Heated wrap. ? Warm water bath. Follow your health care provider's instructions about when and how to use heat therapy. In general,you should: 1.?? Place a towel between your skin and the heat source. 2.?? Leave the heat on for 20???30 minutes. Your skin may turn pink. 3.?? Remove the heat if your skin turns bright red. This is especially important if you are unable to feel pain, heat, or cold. You may have a greater risk of getting burned. If directed, you can also soak in a warm water bath. To prepare: 1.?? Put a non-slip padding in the bathtub to prevent slips or falls. 2.?? Fill a bathtub with warm water. 3.?? Always check the water temperature before getting into the bathtub. 4.?? Soak in the water for 15???20 minutes, or for as long as you are told by your health care provider. 5.?? When you are done, carefully stand up. You may feel dizzy. 6.?? After the bath, pat yourself dry. Do not rub your skin to dry it. General recommendations ? Be careful to avoid burning your skin. High heat or long exposure to heat can cause kirk. ? Do not sleep while using heat therapy. Only use heat therapy while you are awake. ? Check your skin during heat therapy. ? Do not use heat therapy: ? For new injuries, especially if you have swelling on the injured area. ? On areas of skin that are already irritated, such as with a rash or sunburn. ? If your skin turns bright red. Contact a health care provider if you have: ? Blisters, redness, swelling, or numbness in the area where you use heat therapy. ? New pain. ? Pain that gets worse. Summary ? Heat therapy is the use of heat to help ease sore, stiff, injured, and tight muscles and joints. Heat relaxes muscles, which may help relieve pain. ? If you have poor circulation, healing wounds, diabetes, numbness or swelling in the treatment area,blood clots, cancer, or the inability to communicate pain, do not use heat therapy unless your health care provider approves. ? Be careful to avoid burning your skin. Only use heat therapy while you are awake. ? Follow your health care provider's instructions about when and how to use heat therapy. This information is not intended to replace advice given to you by your health care provider. Make sure you discuss any questions you have with your health care provider. Document Revised: 05/11/2021 Document Reviewed: 05/11/2021 Elsevier Patient Education ?? 2022 [employer] Tests Performed Medications and Immunizations Administered Given lidocaine 5% topical film, 1 patches, Transdermal. For: Muscle spasm,??Lumbago lisinopril, 40 mg, Oral. For: Muscle spasm,??Lumbago Toradol, 30 mg, Intramuscular Lab Test Name Test Result Date/Time Urine Srce Clean Catch 11/16/2023 16:32 EDT UA Color YELLOW. 11/16/2023 16:32 EDT UA Appear CLEAR. 11/16/2023 16:32 EDT UA Glucose 500 11/16/2023 16:32 EDT UA Bili NEGATIVE 11/16/2023 16:32 EDT UA Ketones NEGATIVE 11/16/2023 16:32 EDT UA Spec Grav >=1.030 11/16/2023 16:32 EDT UA Blood NEGATIVE 11/16/2023 16:32 EDT UA pH 5.50 11/16/2023 16:32 EDT UA Protein NEGATIVE 11/16/2023 16:32 EDT UA Urobilinogen 0.2 11/16/2023 16:32 EDT UA Nitrite NEGATIVE 11/16/2023 16:32 EDT UA Leuk Est NEGATIVE 11/16/2023 16:32 EDT Patient/Unbundler Signature Patient Name:JOSEARL MARTINEZ Johnathon I have received this information and my questions have been answered. Patient/Unbundler Name: Patient/Unbundler Signature: Relationship to Patient: Witness Name/Signature: Date: Electronically Signed on: 11/16/2023 16:53 EDTSigned by:ROGELIO Patient Care team information Care Team Personnel Name: ELLYN KAHN APRN Position: No Access Member Role: Primary Care Physician Address: Address: [address] [place] [address]- Care Team Related Persons Name: TRACI ESTRADA Name: TRACI ESTRADA
--- OUTSIDE RECORDS SUMMARY | 2024-02-17 09:34 | XMS_ITS | Continuity of Care Document ---
Author Organization [facility] Address [address] [place] [address] Care Team Providers Care Furnace Combustion Analyst Name Role Phone ELLYN KAHN APRN Primary Care Physician Encounter [facility] FIN NBR [id number] Date(s): 09/28/23 - 09/28/23 [facility] [address] [place], [place] [address] Discharge Disposition: Home Allergies, Adverse Reactions, Alerts Substance Reaction Severity Status Triple Antibiotic Unknown Active sulfa drugs Unknown Active Assessment and Plan Future Appointments Future Scheduled Tests Laboratory* Pathology Request 07/01/23 Medications Advil 800 mg =, Oral, every 8 hr, alturnating with acetaminophen 1000mg every 8 hours,, takes one or the other every four hours, 0 Refill(s) Start Date: 09/28/22 Status: Ordered amlodipine-atorvastatin 10 mg-40 mg oral tablet 1 tab, Oral, Daily, # 30 tab, 0 Refill(s) Start Date: 09/28/22 Status: Ordered chlorhexidine 4% topical soap See Instructions, as directed, # 120 mL, 0 Refill(s), called to pharmacy (Rx) Start Date: 07/17/23 Status: Ordered doxycycline hyclate 100 mg oral tablet TAKE 1 TABLET BY MOUTH TWICE DAILY FOR 14 DAYS Start Date: 07/24/23 Status: Ordered metFORMIN 1000 mg oral tablet 1,000 mg = 1 tab, Oral, BID, # 180 tab, 0 Refill(s) Start Date: 09/28/22 Status: Ordered mupirocin 2% topical cream 1 ethan, Topical, TID, # 30 g, 1 Refill(s), Pharmacy: [facility], 167, cm, 07/15/23 15:51:00 EST, Height, 83, kg, 07/15/23 8:09:00 EST, Weight Dosing Start Date: 07/17/23 Stop Date: 08/06/23 Status: Ordered oxyCODONE 5 mg oral tablet 5 mg = 1 tab, Oral, every 6 hr, PRN as needed for pain, # 8 tabs from [facility] ED, 0 Refill(s) Start Date: 07/13/23 Status: Ordered Tylenol Extra Strength 500 mg oral tablet 1,000 mg = 2 tab, Oral, every 8 hr, altunating with ibuprofen 800mg every 8 hours (takes one or theother every 4 hours), 0 Refill(s) Start Date: 07/15/23 Status: Ordered Problem List Condition Confirmation Course Effective Dates Status H ealth Status Informant Diabetes Confirmed Active High cholesterol Confirmed Active Hypertension Confirmed Active Methicillin resistant Staphylococcus aureus 1 Confirmed 07/18/23 Active 1Problem added by Rule (LH_IC_MDRO_MRSA) following Wound Culture Deep from Abscess collected on 16-JUL-2023 16:51:00 EST tested positive for MRSA. Social History Social History Type Response Tobacco Never tobacco user T obacco Use:. Sex Patient Care team information Care Team Personnel Name: ELLYN KAHN APRN Position: No Access Member Role: Primary Care Physician Address: Address: [address] [place] [address]- Care Team Related Persons Name: TRACI ESTRADA Name: TRACI ESTRADA
--- OUTSIDE RECORDS SUMMARY | 2024-02-17 09:35 | XMS_ITS | Continuity of Care Document ---
Author Organization [facility] Address [address] [place] [address] Encounter [facility] FIN NBR [id number] Date(s): 07/17/23 - 07/17/23 [facility] [address] [place], [place] [address] Discharge Disposition: Home or Self Care Attending Physician: Reji Navas DO Allergies, Adverse Reactions, Alerts Substance Reaction [...] pharmacy (Rx) Start Date: 07/17/23 Status: Ordered metFORMIN 1000 mg oral tablet 1,000 mg = 1 tab, Oral, BID, # 180 tab, 0 Refill(s) Start Date: 09/28/22 Status: Ordered mupirocin 2% topical cream 1 ethan, Topical, TID, # 30 g, 1 Refill(s), Pharmacy: [facility], 167, cm, 07/15/23 15:51:00 EST, Height, 83, kg, 07/15/23 8:09:00 EST, Weight Dosing Start Date: 07/17/23 Stop Date: 08/06/23 Status: Ordered oxyCODONE 5 mg oral tablet 5 mg = 1 tab, Oral, every 6 hr, PRN as needed for pain, # 8 tabs from [facility] ED, 0 Refill(s) Start Date: 07/13/23 Status: [...] Never tobacco user T obacco Use:. Sex Consult note * Reji Navas, DO: PERFORM, MODIFY Event Display: Consultation Note Generic Authored Date: [id number] EARL ESTRADA :1965 Age:58 years Sex:Female Visit Date:07/17/2023 Reason for Consultation Chin abscess History of Present Illness The hospitalist service and Dr. Gudino contacted ENT requesting consult regarding a anterior midline chin abscess, she was admitted over the weekend and has been placed on IV vancomycin, she has had numerous??bouts of??skin cellulitis and abscess,??general surgery has evaluated the 1 on her anterior abdomen.?? She does have very poor dentition as well she admits to??virtually no dental care,??shehas a new job starting with the [employer], she is hoping to??be more vigilant on??healthcare needs??going forward. ??She feels 80% better on the IV antibiotics, she has no airway difficulty, no trouble swallowing, she is anticipated to be discharged today Review of Systems Negative for new cardiac, respiratory, , GI symptoms Physical Exam Anterior??midline chin induration??approximately 4 cm with a central opening to the??skin with mildpurulence, very little fluctuance identified, floor mouth soft, full range of motion, widespread dental caries with dental decay??on the mandible, edentulous??of the maxilla except for??a few??severely decayed??tooth??roots on the right upper side, stable airway Assessment/Plan Ordered: mupirocin 2% topical cream, 1 ethan, Topical, TID, # 30 g, 1 Refill(s), Pharmacy: [facility], 167, cm, 07/15/23 15:51:00 EST, Height, 83, kg, 07/15/23 8:09:00 EST, Weight Dosing Anterior chin facial??abscess induration and cellulitis, suspect MRSA- recommend??3 times daily soaks with??peroxide, reviewed with the hospital service, Dr. Roy will provide the appropriate oral??coverage as an outpatient,??patient will follow-up in ENT next week,??offer??for incision and drainageat bedside was discussed today patient declined as she is 80% better,??she agrees to follow-up nextweek??to Problem List/Past Medical History Ongoing Diabetes High cholesterol Hypertension Historical No qualifying data Medications Inpatient acetaminophen, 1000 mg= 2 tab, Oral, every 8 hr ([facility]) Dextrose 50% injection, 25 g= 50 mL, IV Push, As Directed enoxaparin, 40 mg= 0.4 mL, Subcutaneous, Daily glucagon, 1 mg= 1 EA, Subcutaneous, As Directed ibuprofen, 600 mg= 1 tab, Oral, every 6 hr, PRN insulin aspart Sliding Scale - Medium Dose, Insulin Aspart Sliding Scale See Comments, Subcutaneous, AC & bedtime insulin glargine, 17 units= 0.17 mL, Subcutaneous, every evening melatonin 3 mg oral tablet, 9 mg= 3 tab, Oral, every night at bedtime, PRN ondansetron, 4 mg= 2 mL, IV Push, every 6 hr, PRN oxyCODONE 5 mg oral tablet, 5 mg= 1 tab, Oral, BID, PRN petrolatum topical, 1 ethan, Topical, QID potassium chloride, 40 mEq= 2 tab, Oral, BID traZODone, 50 mg= 1 tab, Oral, every night at bedtime, PRN vancomycin, 1250 mg= 250 mL, IV Piggyback, every 12 hr Home Advil, 800 mg, Oral, every 8 hr amlodipine-atorvastatin 10 mg-40 mg oral tablet, 1 tab, Oral, Daily doxycycline hyclate 100 mg oral tablet, 100 mg= 1 tab, Oral, BID metFORMIN 1000 mg oral tablet, 1000 mg= 1 tab, Oral, BID oxyCODONE 5 mg oral tablet, 5 mg= 1 tab, Oral, every 6 hr, PRN Tylenol Extra Strength 500 mg oral tablet, 1000 mg= 2 tab, Oral, every 8 hr valACYclovir 500 mg oral tablet, 500 mg= 1 tab, Oral, Daily, PRN Allergies Triple Antibiotic sulfa drugs Social History Alcohol Never Electronic Cigarette/Vaping Electronic Cigarette Use: Never. Home/Environment Living situation: Home/Independent. Substance Use Never Tobacco Never tobacco user Tobacco Use:. Electronically Signed on 07/17/23 12:49 PM Reji Navas DO Patient Care team information Care Team Related Persons Name: TRACI ESTRADA Name: TRACI ESTRADA
--- OUTSIDE RECORDS SUMMARY | 2024-02-17 09:35 | XMS_ITS | Continuity of Care Document ---
Author Organization [facility] Address [address] [place] [address] Encounter LTTL_MI FIN NBR [id number] Date(s): 07/15/23 - 07/17/23 [facility] [address] [place] [address]- Encounter Diagnosis Diabetes(Discharge Diagnosis) - 07/15/23 Abscess(Discharge Diagnosis) - 07/15/23 Hypertension(Discharge Diagnosis) - 07/15/23 Cutaneous abscess of face(Final) - Cutaneous abscess of abdominal wall(Final) - Cellulitis of abdominal wall(Final) - Cellulitis of face(Final) - Nausea(Final) - Type 2 diabetes mellitus without complications(Final) - Pure hypercholesterolemia, unspecified(Final) - Essential (primary) hypertension(Final) - Other fpc (current) drug therapy(Final) - Discharge Disposition: Home or Self Care Attending Physician: Dusty Gudino MD Admitting Physician: Dusty Gudino MD Allergies, Adverse Reactions, Alerts Substance Reaction Severity Status Triple Antibiotic Unknown Active sulfa drugs Unknown Active Assessment and Plan Future Appointments Future Scheduled Tests Laboratory* Pathology Request 07/01/23 Functional Status 07/17/23 Living Environment Living Situation: Current Home Treatments: Home Devices/Equipment Professional Skilled Services: Special Services and Community Resources: None Sensory Deficits: Performed by: Lenka Cohen-07/17/23 08:55:00 Living Situation: Home independently Current Home Treatments: Home Devices/Equipment Professional Skilled Services: Special Services and Community Resources: Sensory Deficits: Performed by: Jim Capps-07/15/23 15:49:00 Lives In Multilevel home Lives With Spouse Living Situation Home independently Home Barriers None Special Services and Community Resources None Number of Stairs Inside 12 Number of Stairs Outside 3 07/16/23 Personal Care Provided Other: hs care of ferdanisha, pt declined and stated that she had a shower today 07/16/23 Lunch Percent 75 07/16/23 Breakfast Percent 100 Medications Advil 800 mg =, Oral, every [...] needed for pain, # [address] [facility] ED, 0 Refill(s) Start Date: 07/13/23 Status: Ordered Tylenol Extra Strength 500 mg oral tablet 1,000 mg = 2 tab, Oral, every 8 hr, altunating with ibuprofen 800mg every 8 hours (takes one or theother every 4 hours), 0 Refill(s) Start Date: 07/15/23 Status: Ordered Mental Status 07/15/23 Eye Opening Response Lianet Spontaneous ly Best Verbal Response [place] Oriented Best Motor Response [place] Obeys comman ds Lianet Coma Score 15 [...] Results Laboratory List Name Date Glucose POCT 07/17/23 Glucose POCT 07/17/23 Glucose POCT 07/17/23 Automated Diff 07/17/23 C-Reactive Protein 07/17/23 Basic Metabolic Panel (BMP) 07/17/23 CBC w/ Diff 07/17/23 Automated Diff 07/16/23 Basic Metabolic Panel (BMP) 07/16/23 CBC w/ Diff 07/16/23 C-Reactive Protein 07/15/23 CBC w/ Diff 07/15/23 Comprehensive Metabolic Panel (CMP) 06/23 11/12 Sedimentation Rate (ESR) 07/15/23 Automated Diff 07/15/23 Most recent to oldest [Reference Range]: 1 2 3 WBC [4.8-10.8 K/mcL] 7.1 K/mcL (07/17/23 6:22 AM) 8.0 K/mcL (07/16/23 5:55 AM) 12.9 K/mcL *HI* (07/15/23 9:00 AM) RBC [4.20-5.40 Million/mcL] 4.25 Million/mcL (07/17/23 6:22 AM) 4.30 Million/mcL (07/16/23 5:55 AM) 5.12 Million/mcL (07/15/23 9:00 AM) Neutro Auto [42.2-75.2 %] 40.6 % *LOW* (07/17/23 6:22 AM) 43.6 % (07/16/23 5:55 AM) 69.4 % (07/15/23 9:00 AM) Lymph Auto [20.5-51.1 %] 41.0 % (07/17/23 6:22 AM) 40.4 % (07/16/23 5:55 AM) 20.2 % *LOW* (07/15/23 9:00 AM) Millard Auto [1.7-9.3 %] 7.7 % (07/17/23 6:22 AM) 7.9 % (07/16/23 5:55 AM) 7.4 % (07/15/23 9:00 AM) Basophil Auto [0.0-0.8 %] 0.7 % (07/17/23 6:22 AM) 0.6 % (07/16/23 5:55 AM) 0.5 % (07/15/23 9:00 AM) BUN [7-25 mg/dL] 17 mg/dL (07/17/23 6:22 AM) 19 mg/dL (07/16/23 5:55 AM) 14 mg/dL (07/15/23 9:00 AM) Glucose POC 257 *NA* (07/17/23 5:14 PM) 218 *NA* (07/17/23 12:30 PM) 255 *NA* (07/17/23 9:29 AM) Glucose Level [70-109 mg/dL] 243 mg/dL *HI* (07/17/23 6:22 AM) 284 mg/dL *HI* (07/16/23 5:55 AM) 273 mg/dL *HI* (07/15/23 9:00 AM) Potassium Level [3.5-5.1 mmol/L] 4.2 mmol/L (07/17/23 6:22 AM) 3.8 mmol/L (07/16/23 5:55 AM) 3.4 mmol/L *LOW* (07/15/23 9:00 AM) Baso Absolute [0.0-0.2 K/mcL] 0.0 K/mcL (07/17/23 6:22 AM) 0.0 K/mcL (07/16/23 5:55 AM) 0.1 K/mcL (07/15/23 9:00 AM) MCV [81.0-99.0 fL] 89.8 fL (07/17/23 6:22 AM) 88.6 fL (07/16/23 5:55 AM) 88.6 fL (07/15/23 9:00 AM) CRP [<=10.0 mg/L] 42.4 mg/L *HI* (07/17/23 6:27 AM) 180.4 mg/L *HI* (07/15/23 9:00 AM) AST [13-39 IntlUnit/L] 12 IntlUnit/L *LOW* (07/15/23 9:00 AM) ALT [7-52 IntlUnit/L] 16 IntlUnit/L (07/15/23 9:00 AM) MCHC [32.0-37.0 g/dL] 33.7 g/dL (07/17/23:22 AM) 34.3 g/dL (07/16/23 5:55 AM) 34.5 g/dL (07/15/23 9:00 AM) Osmolality [275-295 mOsm/kg] 285 mOsm/kg (07/17/23 6:22 AM) 290 mOsm/kg (07/16/23 5:55 AM) 282 mOsm/kg (07/15/23 9:00 AM) Sodium Level [136-145 mmol/L] 138 mmol/L (07/17/23:22 AM) 139 mmol/L (07/16/23 5:55 AM) 136 mmol/L (07/15/23 9:00 AM) Lymph Absolute [1.2-3.4 K/mcL] 2.9 K/mcL (07/17/23:22 AM) 3.2 K/mcL (07/16/23 5:55 AM) 2.6 K/mcL (07/15/23 9:00 AM) Hct [37.0-47.0 %] 38.2 % (07/17/23:22 AM) 38.1 % (07/16/23:55 AM) 45.4 % (07/15/23 9:00 AM) Calcium Level [8.6-10.3 mg/dL] 8.6 mg/dL (07/17/23:22 AM) 8.3 mg/dL *LOW* (07/16/23 5:55 AM) 9.1 mg/dL (07/15/23 9:00 AM) Millard Absolute [0.1-0.6 K/mcL] 0.6 K/mcL (07/17/23:22 AM) 0.6 K/mcL (07/16/23 5:55 AM) 1.0 K/mcL *HI* (07/15/23 9:00 AM) Albumin Level [3.5-5.7 g/dL] 3.6 g/dL (07/15/23 9:00 AM) Protein Total [6.4-8.9 g/dL] 6.5 g/dL (07/15/23 9:00 AM) MCH [27.0-31.0 pg] 30.3 pg (07/17/23:22 AM) 30.4 pg (07/16/23 5:55 AM) 30.5 pg (07/15/23 9:00 AM) Neutro Absolute [1.4-6.5 K/mcL] 2.9 K/mcL (07/17/23 6:22 AM) 3.5 K/mcL (07/16/23 5:55 AM) 9.0 K/mcL *HI* (07/15/23 9:00 AM) Bilirubin Total [0.3-1.0 mg/dL] 0.7 mg/dL (07/15/23 9:00 AM) Hgb [12.0-16.0 g/dL] 12.9 g/dL (07/17/23 6:22 AM) 13.1 g/dL 1 (07/16/23 5:55 AM) 15.6 g/dL (07/15/23 9:00 AM) Alk Phos [34-104 IntlUnit/L] 139 IntlUnit/L *HI* (07/15/23 9:00 AM) MPV [7.4-10.4 fL] 8.8 fL (07/17/23 6:22 AM) 8.9 fL (07/16/23 5:55 AM) 9.2 fL (07/15/23 9:00 AM) Platelets [130-400 K/mcL] 306 K/mcL (07/17/23 6:22 AM) 290 K/mcL (07/16/23 5:55 AM) 331 K/mcL (07/15/23 9:00 AM) CO2 [21-31 mmol/L] 24 mmol/L (07/17/23 6:22 AM) 25 mmol/L (07/16/23 5:55 AM) 28 mmol/L (07/15/23 9:00 AM) Eos Absolute [0.0-0.2 K/mcL] 0.7 K/mcL *HI* (07/17/23 6:22 AM) 0.6 K/mcL *HI* (07/16/23 5:55 AM) 0.3 K/mcL *HI* (07/15/23 9:00 AM) Chloride Level [98-107 mmol/L] 109 mmol/L *HI* (07/17/23 6:22 AM) 106 mmol/L (07/16/23 5:55 AM) 99 mmol/L (07/15/23 9:00 AM) RDW-CV [11.5-14.5 %] 12.4 % (07/17/23 6:22 AM) 12.3 % (07/16/23 5:55 AM) 12.5 % (07/15/23 9:00 AM) A/G Ratio [1.0-2.5 g/dL] 1.2 g/dL (07/15/23 9:00 AM) BUN/Creat Ratio [8.0-20.0] 28.3 *HI* (07/17/23 6:22 AM) 31.7 *HI* (07/16/23 5:55 AM) 23.3 *HI* (07/15/23 9:00 AM) Globulin [2.3-3.5 g/dL] 2.9 g/dL (07/15/23 9:00 AM) Slide Review Not Indicated (07/17/23:22 AM) Not Indicated (07/16/23 5:55 AM) Creatinine Level [0.60-1.20 mg/dL] 0.60 mg/dL (07/17/23 6:22 AM) 0.60 mg/dL (07/16/23 5:55 AM) 0.60 mg/dL (07/15/23 9:00 AM) Anion Gap [3.0-12.0] 5.0 (07/17/23 6:22 AM) 8.0 (07/16/23 5:55 AM) 9.0 (07/15/23 9:00 AM) Eos, Auto [0.00-3.00 %] 10.00 % *HI* (07/17/23 6:22 AM) 7.50 % *HI* (07/16/23 5:55 AM) 2.50 % (07/15/23 9:00 AM) eGFR CKD-EPI [>=60 mL/min/1.73 m2] 103 mL/min/1.73 m2 (07/17/23 6:22 AM) 103 mL/min/1.73 m2 (07/16/23 5:55 AM) 103 mL/min/1.73 m2 (07/15/23 9:00 AM) ESR, Westergren [0-20 mm/hr] 34 mm/hr *HI* (07/15/23 9:00 AM) 1Result Comment: Results verified by repeat analysis. Orders for Microbiology Reports Name Date Wound Culture Deep (Wound Culture, Aero & Anaero w/ GS) 07/16/23 Blood Culture 07/15/23 Blood Culture 07/15/23 Microbiology Reports TEST:Wound Culture Deep STATUS:Order in Progress BODY SITE:Chin SOURCE:Abscess COLLECTED DATE/TIME:07/16/23 4:45 PM FINAL REPORT Light Methicillin-Resistant Staphylococcus aureus ORGANISM:Methicillin-Resistant Staphylococcus aureus Susceptibilty: Methicillin-Resistant Staphylococcus aureus Tested Drug JOHN Dilution JOHN Interpretati on Vancomycin <=0.5 S Trimethoprim/Sulfa >=320 R Cefazolin R Ceftriaxone R Oxacillin >=4 R Linezolid 1 S Erythromycin >=8 R Doxycycline <=0.5 S Clindamycin >=4 R TEST:Blood Culture STATUS:Order in Progress BODY SITE:Right Arm SOURCE:Blood COLLECTED DATE/TIME:07/15/23 9:32 AM PRELIMINARY REPORT No growth at 2 days. TEST:Blood Culture STATUS:Order in Progress BODY SITE:Left Arm SOURCE:Blood COLLECTED DATE/TIME:07/15/23 9:00 AM PRELIMINARY REPORT No growth at 2 days. Radiology Reports * Exam Date Time Procedure Performing Provider Status 07/17/23 6:54 AM US Soft Tissue DomainUser, Generated; Auth (Verified) Notes: (US Soft Tissue) Reason For Exam: eval for abscess in mid abd area US Soft Tissue EXAM DESCRIPTION: US Soft Tissue 07/17/2023 INDICATION: EVAL FOR ABSCESS IN MID ABD AREA TECHNIQUE: Grayscale ultrasound examination of the left mid abdominal wall was performed in the vicinity of clinical concern. Static and cine clip images were obtained. COMPARISON: None FINDINGS: Ovoid irregularly marginated hypoechoic heterogeneous collection in the superficial soft tissues of the left mid abdominal wall measuring approximately 2.2 x 1.7 x 1.5 cm suspicious for abscess or possible complex fluid collection such as hematoma. IMPRESSION: Irregular ovoid collection in the superficial soft tissues of the left mid abdominal wall in the vicinity of clinical concern measuring 2.2 x 1.7 x 1.5 cm which may reflect abscess or complex fluid collection such as hematoma. JOB #: [id number] Final Signed by: Patricio Quarles MD Signed (Electronic Signature): 07/17/2023 8:50 am * Exam Date Time Procedure Performing Provider Status 07/15/23 9:[address] Neck Soft Tissue w/ Contrast Nickie Dickinson; Auth (Verified) Notes: (CT Neck Soft Tissue w/ Contrast) Reason For Exam: pain and swelling CT Neck Soft Tissue w/ Contrast PROCEDURE INFORMATION: Exam: CT Neck With Contrast Exam date and time: 07/15/2023 9:06 AM Age: 58 years old Clinical indication: Neck pain; Patient HX: Chin and neck redness and swelling; Additional info: Pain and swelling TECHNIQUE: Imaging protocol: Computed tomography of the neck with contrast. Radiation optimization: All CT scans at this facility use at least one of these dose optimization techniques: automated exposure control; mA and/or kV adjustment per patient size (includes targeted exams where dose is matched to clinical indication); or iterative reconstruction. Contrast material: ISOVUE 300; Contrast volume: 100 ml; Contrast route: INTRAVENOUS (IV); REPORTING DATA: Count of CT and Cardiac NM exams in prior 12 months: This patient has received 0 known CTs and 0 known cardiac nuclear medicine studies in the 12 months prior to the current study. COMPARISON: No relevant prior studies available. FINDINGS: Oral cavity: Oral cavity is degraded by artifacts Dental: Anterior mandibular incisor/canine unfilled dental caries Pharynx: Unremarkable. No significant tonsillar enlargement. Larynx: Airway occlusion level of the glottis likely due to swelling or phonation during image acquisition. Airway is otherwise widely patent. Prevertebral and retropharyngeal spaces: Unremarkable. Salivary glands: Normal. Glands are normal in size. Thyroid: Normal. No enlarged or calcified nodules. Lymph nodes: Calcified sub cm precarinal lymph nodes. No significant adenopathy . Trachea: See Larynx finding. Lungs: See Larynx finding. Bones/joints: C5-C6 mild disc space height narrowing consistent with degenerative disc disease and osteophyte formation the endplates. No foraminal stenosis. Similar degenerative disc disease /degenerative plate changes superior thoracic level. Soft tissues: Anterior and submandibular subcutaneous fat stranding with rim enhancing non air containing irregularly-shaped multilobulated approximate 2.5 cm craniocaudal by 1 cm AP by up to 1.1 cm transverse abscess/phlegmon. No mandibular periosteal reaction, cortical destruction or osteolysis. IMPRESSION: 1. Anterior mandibular/submandibular subcutaneous cellulitis and abscess without mandibular osteomyelitis likely secondary to dental disease and mandibular tooth periapical abscess formation 2. Additional findings/limitations as noted. THIS DOCUMENT HAS BEEN ELECTRONICALLY SIGNED BY ADOLFO HERBERT MD on 07/15/2023 09:43 AM Final Signed by: Adolfo Herbert MD Signed (Electronic Signature): 07/15/2023 9:43 am Vital Signs Most recent to oldest [Reference Range]: 1 2 3 Temperature Oral [35.8-37.3 Deg C] 37 Deg C (07/15/23 3:51 PM) 36.7 Deg C (07/15/23 7:54 AM) Temperature Temporal Artery [36-38 Deg C] 35.8 Deg C *LOW* (07/17/23 12:35 PM) 36.1 Deg C (07/17/23 9:50 AM) 36.5 Deg C (07/17/23 2:14 AM) Temperature Temporal Artery (DegF) [97.3-100 Deg F] 98.24 Deg F (07/16/23 8:59 PM) Peripheral Pulse Rate [60-100 bpm] 83 bpm (07/17/23 12:35 PM) 78 bpm (07/17/23 9:50 AM) 79 bpm (07/17/23 2:14 AM) Heart Rate Monitored [60-100 bpm] 109 bpm *HI* (07/15/23 7:54 AM) Respiratory Rate [12-24 br/min] 16 br/min (07/17/23 12:35 PM) 16 br/min (07/17/23 9:50 AM) 18 br/min (07/17/23 2:14 AM) Blood Pressure [90-140/60-90 mmHg] 156/95mmHg *HI* (07/17/23 12:35 PM) 179/87mmHg 1 *HI* (07/17/23 9:50 AM) 151/87mmHg *HI* (07/17/23 2:14 AM) Mean Arterial Pressure, Cuff [70-110 mmHg] 120 mmHg *HI* (07/15/23 2:24 PM) 110 mmHg (07/15/23 1:07 PM) 116 mmHg *HI* (07/15/23 12:24 PM) Mean Arterial Pressure Cuff 108 mmHg (07/15/23 1:07 PM) 113 mmHg (07/15/23 12:24 PM) 109 mmHg (07/15/23 11:47 AM) Blood Pressure Location Right arm (07/17/23 2:14 AM) Left arm (07/16/23 9:16 PM) Right arm (07/16/23 8:59 PM) Blood Pressure Method Automatic (07/17/23 12:35 PM) Automatic (07/17/23 9:50 AM) Automatic (07/17/23 2:14 AM) Weight 77.9 kg (07/15/23 3:51 PM) 77.9 kg (07/15/23 3:51 PM) 77.9 kg (07/15/23 3:50 PM) Weight Dosing 83.000 kg (07/15/23 7:54 AM) Usual Weight 84 kg (07/15/23 3:51 PM) Height 167 cm (07/15/23 3:51 PM) 167 cm (07/15/23 7:54 AM) Body Mass Index 27.93 kg/m2 (07/15/23 3:51 PM) 29.76 kg/m2 (07/15/23 7:54 AM) 1Result Comment: notified provider Social History Social History Type Response Tobacco Never tobacco user T obacco Use:. Sex Hospital Discharge Instructions Patient Education 07/17/2023 14:35:24 Skin Abscess Skin Abscess A skin abscess is an infected area on or under your skin that contains a collection of pus and other material. An abscess may also be called a furuncle, carbuncle, or boil. An abscess can occur in oron almost any part of your body. Some abscesses break open (rupture) on their own. Most continue to get worse unless they are treated. The infection can spread deeper into the body and eventually into your blood, which can make you feel ill. Treatment usually involves draining the abscess. What are the causes? An abscess occurs when germs, like bacteria, pass through your skin and cause an infection. This may be caused by: ??? A scrape or cut on your skin. ??? A puncture wound through your skin, including a needle injection or insect bite. ??? Blocked oil or sweat glands. ??? Blocked and infected hair follicles. ??? A cyst that forms beneath your skin (sebaceous cyst) and becomes infected. What increases the risk? This condition is more likely to develop in people who: ??? Have a weak body defense system (immune system). ??? Have diabetes. ??? Have dry and irritated skin. ??? Get frequent injections or use illegal IV drugs. ??? Have a foreign body in a wound, such as a splinter. ??? Have problems with their lymph system or veins. What are the signs or symptoms? Symptoms of this condition include: ??? A painful, firm bump under the skin. ??? A bump with pus at the top. This may break through the skin and drain. Other symptoms include: ??? Redness surrounding the abscess site. ??? Warmth. ??? Swelling of the lymph nodes (glands) near the abscess. ??? Tenderness. ??? A sore on the skin. How is this diagnosed? This condition may be diagnosed based on: ??? A physical exam. ??? Your medical history. ??? A sample of pus. This may be used to find out what is causing the infection. ??? Blood tests. ??? Imaging tests, such as an ultrasound, CT scan, or MRI. How is this treated? A small abscess that drains on its own may not need treatment. Treatment for larger abscesses may include: ??? Moist heat or heat pack applied to the area several times a day. ??? A procedure to drain the abscess (incision and drainage). ??? Antibiotic medicines. For a severe abscess, you may first get antibiotics through an IV and then change to antibiotics by mouth. Follow these instructions at home: Medicines ??? Take [id number] and prescription medicines only as told by your health care provider. ??? If you were prescribed an antibiotic medicine, take it as told by your health care provider. Donot stop taking the antibiotic even if you start to feel better. Abscess care ??? If you have an abscess that has not drained, apply heat to the affected area. Use the heat source that your health [...] have a greater risk of getting burned. ??? Follow instructions from your health care provider about how to take care of your abscess. Makesure you: ??? Cover the abscess with a bandage (dressing). ??? Change your dressing or gauze as told by your health care provider. ??? Wash your hands with soap and water before you change the dressing or gauze. If soap and water are not available, use hand plastic parts fabricator. ??? Check your abscess every day for signs of a worsening infection. Check for: ??? More redness, swelling, or pain. ??? More fluid or blood. ??? Warmth. ??? More pus or a bad smell. General instructions ??? To avoid spreading the infection: ??? Do not share personal care items, towels, or hot tubs with others. ??? Avoid making skin contact with other people. ??? Keep all follow-up visits as told by your health care provider. This is important. Contact a health care provider if you have: ??? More redness, swelling, or pain around your abscess. ??? More fluid or blood coming from your abscess. ??? Warm skin around your abscess. ??? More pus or a bad smell coming from your abscess. ??? Muscle aches. ??? Chills or a general ill feeling. Get help right away if you: ??? Have severe pain. ??? See red streaks on your skin spreading away from the abscess. ??? See redness that spreads quickly. ??? Have a fever or chills. Summary ??? A skin abscess is an infected area on or under your skin that contains a collection of pus and other material. ??? A small abscess that drains on its own may not need treatment. ??? Treatment for larger abscesses may include having a procedure to drain the abscess and taking an antibiotic. This information is not intended to replace advice given to you by your health care provider. Make sure you discuss any questions you have with your health care provider. Document Revised: 04/17/2022 Document Reviewed: 04/17/2022 Elsevier Patient Education ?? 2022 [employer] 07/17/2023 14:11:50 Blank Education (Custom) Plate Method for Diabetes The following guidance to build a healthy plate to control carbohydrates. Divide a 9-inch plate into 3 sections, and consider your beverage the 4th section of your meal: Section 1: Non-starchy vegetables Fill ?? of your plate to include non-starchy vegetables Asparagus, broccoli, brussels sprouts, cabbage, carrots, cauliflower, celery, cucumber, green beans, mushrooms, peppers, salad greens, tomatoes, or zucchini. Section 2: Protein foods Fill ?? of your plate to include a lean protein Lean meat, poultry, fish, seafood, cheese, eggs, lean deli meat, tofu, beans, lentils, nuts or nut butters. Section 3: Carbohydrate foods Fill ?? of your plate to include carbohydrate foods Whole grains, whole wheat bread, brown rice, whole grain pasta, polenta, corn tortillas, fruit, or starchy vegetables (potatoes, green peas, corn, beans, acorn squash, and butternut squash). One cup of milk also counts as a food that contains carbohydrate. Section 4: Beverage Choose water or a low-calorie drink for your beverage. Unsweetened tea, coffee, or flavored/sparkling water without added sugar. Image reprinted with permission from [employer]. Copyright 2021 by [employer]. Follow Up Care 07/15/2023 07:54:54 With:Follow up with primary care provider Address: When:1 month Comments:appointment set at [facility] on 07/24 at 08:00 am With:Reji Navas Address: [address] [place] [phone] Business (1) When:1 week Comments:07/25/2022 at 08:15 am with Ravi. Discharge instructions * Trish Hollingsworth: PERFORM Event Display: Discharge Instructions Authored Date: [id number] EARL ESTRADA :1965 Age:58 years Sex:Female Visit Date:07/15/2023 Hospital Discharge Instructions We would like to thank you for allowing us to assist you with your healthcare needs. The following includes patient education materials and information regarding your injury/illness. Your Next Steps Instructions From Your Care Team We will give you 1 bottle of Hibiclens??that is all the pharmacy has,??how to use this every day orevery other day in the shower as I described to you??and it may go some way to help prevent any infections in the future Follow Up Appointments Follow Up with??Follow up with primary care provider When:??Within 1 month Why: appointment set at [facility] on 07/24 at 08:00 am Follow Up with??Reji Navas When:??Within 1 week Why: 07/25/2022 at 08:15 am with Ravi. Where: [address] [place] [phone] [facility] (1) The Following Services Have Been Arranged for You Special Services and Community Resources - None Medications What How Much When Instructions Next Dose New chlorhexidine topical (chlorhexidine 4% topical soap)See instructions as directed ?? Unchanged acetaminophen (Tylenol Extra Strength 500 mg oral tablet) 2 tab Oral (given by mouth) Every 8 hours altunating with ibuprofen 800mg every 8 hours (takes one or the other every 4 hours) ?? Unchanged amlodipine-atorvastatin (amlodipine-atorvastatin 10 mg-40 mg oral tablet) 1 tab Oral (given by mouth) Every day Unchanged ibuprofen (Advil) 800 Milligrams Oral (given by mouth) Every 8 hours alturnating with acetaminophen 1000mg every 8 hours,, takes one or the other every four hours ?? Unchanged metFORMIN (metFORMIN 1000 mg oral tablet) 1 tab Oral (given by mouth) 2 times a day Unchanged mupirocin topical (mupirocin 2% topical cream) 1 Application Topical (on the skin) 3 times a day Duration: 10 Days Unchanged oxyCODONE (oxyCODONE 5 mg oral tablet) 1 tab Oral (given by mouth) Every 6 hours as needed for as needed for pain # [address] [facility] ED ? What How Much When Why Comments Stop Taking cephalexin (cephalexin 500 mg oral capsule) 1 Capsules Oral (given by mouth) 4 times a day Duration: 7 Days Stop Taking clindamycin (clindamycin 300 mg oral capsule) 1 Capsules Oral (given by mouth) Every 8 hours Pruritic intertrigo Rash Duration: 7 Days Stop Taking clotrimazole topical (clotrimazole 1% topical cream) 1 Application Topical (on the skin) 2 times a day Intertrigo Stop Taking doxycycline (doxycycline hyclate 100 mg oral capsule) 1 Capsules Oral (given by mouth) 2 times a day Lower respiratory tract infection Duration: 7 Days Stop Taking doxycycline (doxycycline hyclate 100 mg oral tablet) 1 tab Oral (given by mouth) 2 times a day Duration: 14 Days Stop Taking fluconazole (Diflucan 200 mg oral tablet) 1 tab Oral (given by mouth) Every day Pruritic intertrigo Rash Duration: 7 Days Stop Taking fluconazole (fluconazole 200 mg oral tablet) 1 tab Oral (given by mouth) Every day Intertrigo Duration: 7 Days Stop Taking hydroCHLOROthiazide (hydroCHLOROthiazide 25 mg oral tablet) 1 tab Oral (given by mouth) 2 times a day Stop Taking hydrOXYzine (hydrOXYzine pamoate 25 mg oral capsule) See instructions Pruritic intertrigo Rash 1 cap prn up to 3 times per day for itching, As needed for as needed for itching ?? Stop Taking metoprolol (Metoprolol Succinate ER 100 mg oral tablet, extended release) 1 tab Oral (given by mouth) Every day Stop Taking nystatin topical (nystatin 100,000 units/ g topical ointment) 1 Application Topical (on the skin) 3 times a day Pruritic intertrigo Rash Duration: 21 Days Stop Taking predniSONE (predniSONE 10 mg oral tablet) See Instruction Oral (given by mouth) Every day Duration: 12 Days 4 tabs daily x3 days, 3 tabs daily x3 days, 2 tabs daily x3 days, 1 tab daily x3 days ?? Stop Taking triamcinolone topical (triamcinolone 0.1% topical cream) 1 Application Topical (on the skin) 2 times a day Duration: 14 Days Stop Taking valACYclovir (valACYclovir 500 mg oral tablet) 1 tab Oral (given by mouth) Every day as needed for other (see comment) as needed for cold sore ?? Your Summary Your Care Team Admitting Physician - Dusty Gudino MD Attending Physician - Dusty Gudino MD Your Diagnosis Diabetes Abscess Hypertension Problems Ongoing - Any problem that you are currently receiving treatment for. Diabetes High cholesterol Hypertension Tests Performed/Pending Automated Diff BMP C-Reactive Protein CBC w/ Diff CMP Glucose POCT Sedimentation Rate (ESR) CT Neck Soft Tissue w/ Contrast US Soft Tissue Discharge Vitals Temperature??(Temporal Artery) 96.4 ??F (35.8 ??C) Heart Rate??(Peripheral) 83 Respiratory Rate?? 16 Blood Pressure?? 156/95?? Allergies Triple Antibiotic sulfa drugs Education Materials Skin Abscess A skin abscess is an infected area on or under your skin that contains a collection of pus and other material. An abscess may also be called a furuncle, carbuncle, or boil. An abscess can occur in oron almost any part of your body. Some abscesses break open (rupture) on their own. Most continue to get worse unless they are treated. The infection can spread deeper into the body and eventually into your blood, which can make you feel ill. Treatment usually involves draining the abscess. What are the causes? An abscess occurs when germs, like bacteria, pass through your skin and cause an infection. This may be caused by: ? A scrape or cut on your skin. ? A puncture wound through your skin, including a needle injection or insect bite. ? Blocked oil or sweat glands. ? Blocked and infected hair follicles. ? A cyst that forms beneath your skin (sebaceous cyst) and becomes infected. What increases the risk? This condition is more likely to develop in people who: ? Have a weak body defense system (immune system). ? Have diabetes. ? Have dry and irritated skin. ? Get frequent injections or use illegal IV drugs. ? Have a foreign body in a wound, such as a splinter. ? Have problems with their lymph system or veins. What are the signs or symptoms? Symptoms of this condition include: ? A painful, firm bump under the skin. ? A bump with pus at the top. This may break through the skin and drain. Other symptoms include: ? Redness surrounding the abscess site. ? Warmth. ? Swelling of the lymph nodes (glands) near the abscess. ? Tenderness. ? A sore on the skin. How is this diagnosed? This condition may be diagnosed based on: ? A physical exam. ? Your medical history. ? A sample of pus. This may be used to find out what is causing the infection. ? Blood tests. ? Imaging tests, such as an ultrasound, CT scan, or MRI. How is this treated? A small abscess that drains on its own may not need treatment. Treatment for larger abscesses may include: ? Moist heat or heat pack applied to the area several times a day. ? A procedure to drain the abscess (incision and drainage). ? Antibiotic medicines. For a severe abscess, you may first get antibiotics through an IV and then change to antibiotics by mouth. Follow these instructions at home: Medicines ? Take dlzq-fqv-wwtaatc and prescription medicines only as told by your health care provider. ? If you were prescribed an antibiotic medicine, take it as told by your health care provider. Do notstop taking the antibiotic even if you start to feel better. Abscess care ? If you have an abscess that has not drained, apply heat to the affected area. Use the heat source that your health [...] have a greater risk of getting burned. ? Follow instructions from your health care provider about how to take care of your abscess. Make sure you: ? Cover the abscess with a bandage (dressing). ? Change your dressing or gauze as told by your health care provider. ? Wash your hands with soap and water before you change the dressing or gauze. If soap and water are not available, use hand plastic parts fabricator. ? Check your abscess every day for signs of a worsening infection. Check for: ? More redness, swelling, or pain. ? More fluid or blood. ? Warmth. ? More pus or a bad smell. General instructions ? To avoid spreading the infection: ? Do not share personal care items, towels, or hot tubs with others. ? Avoid making skin contact with other people. ? Keep all follow-up visits as told by your health care provider. This is important. Contact a health care provider if you have: ? More redness, swelling, or pain around your abscess. ? More fluid or blood coming from your abscess. ? Warm skin around your abscess. ? More pus or a bad smell coming from your abscess. ? Muscle aches. ? Chills or a general ill feeling. Get help right away if you: ? Have severe pain. ? See red streaks on your skin spreading away from the abscess. ? See redness that spreads quickly. ? Have a fever or chills. Summary ? A skin abscess is an infected area on or under your skin that contains a collection of pus and other material. ? A small abscess that drains on its own may not need treatment. ? Treatment for larger abscesses may include having a procedure to drain the abscess and taking an antibiotic. This information is not intended to replace advice given to you by your health care provider. Make sure you discuss any questions you have with your health care provider. Document Revised: 04/17/2022 Document Reviewed: 04/17/2022 Elsevier Patient Education ?? 2022 [employer] Plate Method for Diabetes ? The following guidance to build a healthy plate to control carbohydrates. Divide a 9-inch plate into 3 sections, and consider your beverage the 4th section of your meal: ? Section 1: Non-starchy vegetables ? Fill ?? of your plate to include non-starchy vegetables ? Asparagus, broccoli, brussels sprouts, cabbage, carrots, cauliflower, celery, cucumber, green beans, mushrooms, peppers, salad greens, tomatoes, or zucchini. ? Section 2: Protein foods ? Fill ?? of your plate to include a lean protein ? Lean meat, poultry, fish, seafood, cheese, eggs, lean deli meat, tofu, beans, lentils, nuts or nut butters. ? Section 3: Carbohydrate foods ? Fill ?? of your plate to include carbohydrate foods ? Whole grains, whole wheat bread, brown rice, whole grain pasta, polenta, corn tortillas, fruit, or starchy vegetables (potatoes, green peas, corn, beans, acorn squash, and butternut squash). One cup of milk also counts as a food that contains carbohydrate. ? Section 4: Beverage ? Choose water or a low-calorie drink for your beverage. ? Unsweetened tea, coffee, or flavored/sparkling water without added sugar. ? Image reprinted with permission from [employer]. Copyright 2021 by the [employer]. Medication Information chlorhexidine topical?? (klor HEX i randi TOP i isrrael) ?? Antiseptic Skin Cleanser, Betasept, Biopatch, [place], ChloraPrep One-Step, Estrella-Hex, Estrella-Hex4, Hibiclens, Scrub Care Exidine, Spectrum-4? What is the most important information I should know about chlorhexidine topical? Chlorhexidine can cause a rare but serious allergic reaction that may be life- threatening.?Get emergency medical help if you have: ??hives, severe skin rash; wheezing, difficult breathing; cold sweats, severe dizziness; swelling of your face, lips, tongue, or throat. ?? What is chlorhexidine topical? Chlorhexidine is an antiseptic that fights bacteria. ?? Chlorhexidine topical (for the skin) is used to clean the skin to prevent infection that may be caused by surgery, injection, or skin injury. ?? Chlorhexidine topical may also be used for purposes not listed in this medication guide. ?? What should I discuss with my healthcare provider before using chlorhexidine topical? You should not use chlorhexidine topical if you are allergic to it. ?? Ask a doctor or pharmacist if it is safe for you to use this medicine if you have any allergies to food, dyes, animals, or medicines. ?? It is not known whether chlorhexidine topical will harm an unborn baby. Tell your doctor if you are. ?? It is not known whether chlorhexidine topical passes into breast milk or if it could affect the nursing baby. ??Tell your doctor if you are breast-feeding. ?? Be very careful when using chlorhexidine topical on a child younger than 2 months old. ??This medicine may cause severe irritation or chemical kirk on a very young child. ?? How should I use chlorhexidine topical? Use exactly as directed on the label, or as prescribed by your doctor. Do not use in larger or smaller amounts or for longer than recommended. ?? Do not take by mouth. ??Chlorhexidine topical is for use only on the skin. ? Rinse the skin before applying chlorhexidine topical. ??Apply only enough medicine to cover the area you are treating. ??Do not apply this medicine to deep cuts, scrapes, or open skin wounds. ? To use chlorhexidine topical??soap, apply only enough to cover the area you are treating. ??Wash the area gently, then rinse thoroughly with plain water. ??Avoid using over large areas of skin. ?? This medicine is made under sterile conditions, but its contents are not sterilized. ??It is possible for bacteria to get inside the product and contaminate it, which could spread infection. ??To avoid contaminating your medicine with bacteria: ?Use only the swab, pad, or applicator provided with your medicine. ?If no applicator is provided, use only a clean cotton ball or cotton swab to apply this medicine. ?Do not touch the tip of the medicine bottle with your fingers or touch it to your skin. ?Do not dilute the medicine with water or other liquid. ?Use the applicator (pad, swab, or other dressing) only once. ??Throw away after one use. ?? Call your doctor if your symptoms do not improve, or if they get worse while using chlorhexidine topical. ?? Store at room temperature away from moisture and heat. ??Do not freeze. ??Keep the bottle tightly closed when not in use. ?? If this medicine is packaged in a single-use wrapper hand or other container, use it only once. ??Throw away after one use, even if there is still medicine left in it. ??Do not save for later use. ?? What happens if I miss a dose? Use the missed dose as soon as you remember. ??Skip the missed dose if it is almost time for your next scheduled dose. ??Do not??use extra medicine to make up the missed dose. ?? What happens if I overdose? An overdose of chlorhexidine topical is not expected to be dangerous. ??Seek emergency medical attention or call the Poison Help line at if anyone has accidentally swallowed the medication. ?? What should I avoid while using chlorhexidine topical? Avoid getting this medicine in your eyes, ears, nose, mouth, rectum, or vagina. ??If this does happen, rinse with water. ? Avoid using other medicines on the areas you treat with chlorhexidine topical unless your doctor tells you to. ?? Avoid getting this medicine on your clothing or other fabrics. ??Do not use bleach to wash any fabric exposed to chlorhexidine or the medicine may cause a permanent stain. ?? What are the possible side effects of chlorhexidine topical? Chlorhexidine can cause a rare but serious allergic reaction that may be life- threatening. ??Get emergency medical help if you have??signs of an allergic reaction:?hives, severe skin rash; wheezing, difficult breathing; cold sweats, severe dizziness; swelling of your face, lips, tongue, or throat. ?? Stop using chlorhexidine topical and call your doctor at once if you have: ?severe burning, itching, or redness; ?blistering or peeling; ?swelling or severe skin rash; or ?any other severe irritation of treated skin. ?? Less serious side effects are more likely, and you may have none at all. ?? This is not a complete list of side effects and others may occur. Call your doctor for medical advice about side effects. You may report side effects to FDA at 7-505-NNR-5706. ?? What other drugs will affect chlorhexidine topical? It is not likely that other drugs you take orally or inject will have an effect on topically applied chlorhexidine. ??But many drugs can interact with each other. ??Tell each of your health care providers about all medicines you use, including prescription and glru-pmt-onnroyu medicines, vitamins, and herbal products. ?? Where can I get more information? Your pharmacist can provide more information about chlorhexidine topical. ?? Remember, keep this and all other medicines out of the reach of children, never share your medicines with others, and use this medication only for the indication prescribed. ?? Every effort has been made to ensure that the information provided by [employer]. ('[employer]') is accurate, up-to-date, and complete, but no guarantee is made to that effect. Drug information contained herein may be time sensitive. [employer] information has been compiled for use by healthcare practitioners and consumers in the [place] and therefore [employer] does not warrant that uses outside of the [place] are appropriate, unless specifically indicated otherwise. [employer] drug information does not endorse drugs, diagnose patients or recommend therapy. [employer] drug information isan informational resource designed to assist licensed healthcare practitioners in caring for their p atients and/or to serve consumers viewing this service as a supplement to, and not a substitute for, the expertise, skill, knowledge and judgment of healthcare practitioners. The absence of a warningfor a given drug or drug combination in no way should be construed to indicate that the drug or drug combination is safe, effective or appropriate for any given patient. [employer] does not assume any responsibility for any aspect of healthcare administered with the aid of information [employer] provides. The information contained herein is not intended to cover all possible uses, directions, precautions, warnings, drug interactions, allergic reactions, or adverse effects. If you have questions about the drugs you are taking, check with your doctor, nurse or pharmacist.? Copyright [employer] Version: 03.23. Revision Date: 02/21/2023. ? Patient/Floorperson Signature Patient Name:EARL ESTRADA I have received this information and my questions have been answered. Patient/Floorperson Name: Patient/Floorperson Signature: Relationship to Patient: Witness Name/Signature: Date: Electronically Signed on: 07/17/2023 16:11 ESTSigned by:AF * Event Display: Discharge Instructions Physician Emergency department Note * Jeffery Handy, DO: PERFORM, MODIFY, MODIFY Event Display: ED Note Physician Authored Date: [id number] EARL ESTRADA :1965 Age:58 years Sex:Female Visit Date:07/15/2023 9:00 AM: Signout from overnight ED attending.?? Patient has been fighting multiple episodes of abscess development in various areas on the body.?? The one that she is concerned about here in the ER is anterior midline chin with submandibular space firmness/swelling.?? No airway compromise-specifically no stertor/stridor, sniffing position, voice change or difficulty with secretions. ?? 9:15 AM: Physical examination independently performed.?? Patient has tissue in the sublingual spacethat is below the gingiva. Sublingual space is somewhat firm however more firm to palpation ?? 9:45 AM: CT revealed anterior mandibular/submandibular subcutaneous cellulitis and abscess without mandibular osteomyelitis likely secondary to dental disease and mandibular tooth periapical abscess formation. ?? 10:20 AM: Consult with [facility] as our ENT is not covering call over the holiday.?? Awaiting callback.?? In the meantime the patient received 900 mg clindamycin intravenously and gentle IV fluid maintenance after bolus finished.?? Screening laboratory workup does reveal elevated inflammatory markers and leukocytosis.?? No fever or evidence of sepsis.?? Patient remains without evidence of airway compromise. ?? 11:45 AM: Spoke with ENT resident Dr. Candelaria who will staffed the case with her attending after reviewing the images, discussing laboratory findings and physical examination findings for final disposition planning. ?? 2:15 PM: Spoke with Dr. Candelaria who staffed the case with her attending. ??She recommended hospitalization overnight for IV antibiotics??but??did not offer??any specific regimen or??interval frequency.?? She preferred??to have??culture directed antibiotic therapy. ??I??performed ??bedside ultrasound of??the anterior chin region. ??The area of abscess was identified although??more cellulitic than actual fluid collection on ultrasound.?? After discussion with patient she preferred to??not have the??culture obtained??which I do not feel??is unreasonable.?? I will consult??Dr. Gudino for admission. ?? 2:30 PM: Spoke with Dr. Gudino who??agreed to admit the patient to the internal medicine service.??We decided on cefepime 2 g every 8 hours, vancomycin 1 g load with request for pharmacy??evaluation,??metronidazole 500 mg every 8 hours and gentle IV fluid hydration. ??Patient will be allowed to eat.?? Please see admission history and physical examination. Electronically Signed on 07/15/23 03:35 PM Jeffery Handy, DO * Marquez Cruz MD: PERFORM Event Display: ED Note Physician Authored Date: [id number] EARL ESTRADA :1965 Age:58 years Sex:Female Visit Date:07/15/2023 Basic Information Time Seen: Marquez Cruz MD / 07/15/2023 08:35 Chief Complaint began with a rash 8 weeks ago on her chin. She has been seen at and the ER for this, been on keflex, clindmycin and now on doxy. Comes in today because she is having difficulty openin her mouth and she has nausea. No fevers History Of Present Illness: Patient has been dealing with multiple abscesses on her body for 8 weeks. ??Particularly there is 1on her chin??which seems to be getting??worse??over the past several weeks. ??She has been on multiple antibiotics and currently is on??doxycycline. ??She comes in today because now she feels that there is some??pain??and swelling??down into??the front of her neck??and feels a little full sensationunder her tongue??and??feels this is a sensation of difficulty opening her mouth. ??She is able to eat drink??and breathe??without much distress.?? She is waiting to get into see??a regular doctor sothat she may get??a??dermatological follow-up. ??She is a diabetic??and states that her sugars havebeen in the??120 range??up until she was put on??steroids lately. Review of Systems: Review of systems negative other than that stated above Physical Exam Vitals & Measurements T:??36.7?C ??(Oral)?? HR:??109??(Monitored)?? RR:??18?? BP:??168/103?? SpO2:??100%?? HT:??167??cm?? WT:??83??kg?? BMI:??29.76?? Pain Score:??5?? General: Alert and oriented, well nourished, no acute distress. Eye: PERRL, EOMI, normal conjunctiva. HENT: Patient does have a large firm??erythematous??slightly??abraded??abscess/cellulitis on her chin.?? In the center is some dark??dried fluid where she states there is been some drainage.?? There is not a soft fluctuant feeling but rather a firm??feeling around the entire area??which is about??6x 4 cm.?? Inferior to this??chin abscess??there is some mild erythema and mild tenderness??of the??anterior portion of the neck. ??No obvious??lymphadenopathy.?? When she lifts her tongue it does not??seem as though there is significant fullness??sublingually.?? There is no trismus. ?? Lungs: Clear to auscultation and percussion, non-labored respiration. Heart: Normal rate, regular rhythm, no murmur, gallop or edema. Abdomen: Soft, non-tender, non-distended, normal bowel sounds, no masses. Musculoskeletal: Normal range of motion and strength, no tenderness or swelling. Skin: Skin is warm, dry and appropriate for ethnicity, she has several other scattered small??ulcers/lesions??that are in various stages of healing. ??Each 1 is about 2 x 3 cm. Neurologic: Awake, alert and oriented X4, CN II-XII intact. Psychiatric: Cooperative, appropriate mood and affect. Procedure No Qualifying Data Reexamination/Reevaluation I feel that??given the complaint of??difficulty opening her mouth with a sensation of fullness under the tongue and some redness and tenderness to the neck??certainly Dario's angina??must be ruled out. ??Blood work??including blood cultures??and CT of the area have been??ordered.?? At time dictation Dr. Handy will be taking over the care of the patient Assessment/Plan Ordered: Blood Culture, Blood, Stat collect, ST - Stat, 07/15/23 8:42:00 EST, Once, Nurse collect, Print Label Blood Culture, Blood, Stat collect, ST - Stat, 07/15/23 8:42:00 EST, Once, Nurse collect, Print Label C-Reactive Protein, Blood, Stat, 07/15/23 8:42:00 EST, Once, Nurse collect CBC w/ Diff, Blood, Stat, 07/15/23 8:42:00 EST, Once, Nurse collect Comprehensive Metabolic Panel, Blood, Stat, 07/15/23 8:42:00 EST, Once, Nurse collect CT Neck Soft Tissue w/ Contrast, 07/15/23 8:42:00 EST, Stat, Reason: pain and swelling, Transport Mode: Stretcher Sedimentation Rate (ESR), Blood, Stat, 07/15/23 8:42:00 EST, Once, Nurse collect Medication Reconciliation Unchanged amlodipine-atorvastatin (amlodipine-atorvastatin 10 mg-40 mg oral [...] 2 times a day. Refills: 0. ?? doxycycline (doxycycline hyclate 100 mg oral capsule)1 Capsules Oral (given by mouth) 2 times a dayfor 7 Days. Refills: 0. ?? doxycycline (doxycycline hyclate 100 mg oral tablet)1 tab Oral (given by mouth) 2 times a day for 14 Days. Refills: 0. ?? fluconazole (Diflucan 200 mg [...] day for 21 Days. Refills: 2. ?? oxyCODONE (oxyCODONE 5 mg oral capsule)1 Capsules Oral (given by mouth) every 6 hours as needed as needed for pain for 2 Days. Refills: 0. ?? predniSONE (predniSONE 10 mg oral tablet)See [...] High cholesterol Hypertension Historical No qualifying data Allergies Triple Antibiotic sulfa drugs Social History Alcohol Never Electronic Cigarette/Vaping Electronic Cigarette Use: Never. Substance Use Never Tobacco Never tobacco user Tobacco Use:. Electronically Signed on 07/15/23 08:48 AM Marquez Cruz MD Nutrition and dietetics Progress note * Ambar [place]: PERFORM Event Display: Nutrition Note Authored Date: [id number] Assessment and Monitoring ?? Reason for Referral:??MST score 2 ?? Usual Body Weight: Weight Change: Skin: Edema: Chewing/Swallowing: GI: Eating Habits at Home: ? Nutrition Assessment: 58 yo F admit with abscess on chin. on ABT- reports likely d/c later today.Reports think's she ??lost ~15# past couple weeks- just r/t infection, not feeling well. Eating well??here, tolerates Regular diet without issue.??PMH significant DM, HTN, high chol. DM managed by insulin. reports?? checking blood??sugars at night. Unsure A1c, blood sugars elevated here- could be r/t increased appetite andinfection.??diagnosed with diabetes about 4??years ago. Right now doesn't have insurance, reports will be having federal insurance starting Jul??30.?? Talked about seeing a public health educator once has insurance-??hasn't been??before.??once able and has insurance, it may be a good idea to have more education outpatient for diabetes. patient sounds interested. ??went over briefly plate method, doesn't count carbs right now. she does know foods that raise blood sugars. will put plate method in patient??education.??Monitoring. ? Monitor/Evaluation:?? Nutrition Diagnosis decreased carb needs r/t impaired insulin production as evidenced by elevated blood sugars/infection. Nutrition Goals No s/sx hyper,hypoglcemia skin healing labs wnl Nutrition Interventions Continue current diet diet edu. prn Anthropometrics/Estimated Needs Osuvqv15.9 kg(Recorded: 07/15/2023 15:51 EST) Usual Uonfrp94 kg(Recorded: 07/15/2023 15:51 EST) Dfivgp792 cm(Recorded: 07/15/2023 15:51 EST) Body Mass Index27.93 kg/m2(Recorded: 07/15/2023 15:51 EST) Estimated Energy Needs: 1950-2340kcal (25-30kcal/kg actual BW) Estimated Fluid Needs: 1950-2340ml (1ml/kcal) Estimated Protein Needs: 62-78g (.8-1.0g/kg actual BW) ?? Reason for Visit Abscess Problem List/Past Medical History Ongoing Diabetes High cholesterol Hypertension Historical No qualifying data Social History Alcohol Never Electronic Cigarette/Vaping Electronic Cigarette Use: Never. Home/Environment Living situation: Home/Independent. Substance Use Never Tobacco Never tobacco user Tobacco Use:. Diet Orders Diet Order, 07/15/23 15:03:00 EST, Regular Allergies Triple Antibiotic sulfa drugs Nutrition Lab Results Test Name Test Result Date/Time WBC 7.1 K/mcL 07/17/2023 06:22 EST Hgb 12.9 g/dL 07/17/2023 06:22 EST Hct 38.2 % 07/17/2023 06:22 EST MCV 89.8 fL 07/17/2023 06:22 EST Platelets 306 K/mcL 07/17/2023 06:22 EST Sodium Level 138 mmol/L 07/17/2023 06:22 EST Potassium Level 4.2 mmol/L 07/17/2023 06:22 EST Chloride Level 109 mmol/L 07/17/2023 06:22 EST CO2 24 mmol/L 07/17/2023 06:22 EST Alk Phos 139 IntlUnit/L 07/15/2023 09:00 EST ALT 16 IntlUnit/L 07/15/2023 09:00 EST BUN 17 mg/dL 07/17/2023 06:22 EST Glucose Level 243 mg/dL 07/17/2023 06:22 EST Creatinine Level 0.60 mg/dL 07/17/2023 06:22 EST Albumin Level 3.6 g/dL 07/15/2023 09:00 EST Bilirubin Total 0.7 mg/dL 07/15/2023 09:00 EST Medications Inpatient acetaminophen, 1000 mg= 2 tab, Oral, every 8 hr (haris) dalbavancin Dextrose 50% injection, 25 g= 50 mL, [...] PRN petrolatum topical, 1 ethan, Topical, QID traZODone, 50 mg= 1 tab, Oral, every night at bedtime, PRN Home Advil, 800 mg, Oral, every 8 hr amlodipine-atorvastatin 10 mg-40 mg oral tablet, 1 tab, Oral, Daily doxycycline hyclate 100 mg oral tablet, 100 mg= 1 tab, Oral, BID metFORMIN 1000 mg oral tablet, 1000 mg= 1 tab, Oral, BID mupirocin 2% topical cream, 1 ethan, Topical, TID, 1 refills oxyCODONE 5 mg oral tablet, 5 mg= 1 tab, Oral, every 6 hr, PRN Tylenol Extra Strength 500 mg oral tablet, 1000 mg= 2 tab, Oral, every 8 hr valACYclovir 500 mg oral tablet, 500 mg= 1 tab, Oral, Daily, PRN Electronically Signed on 07/17/23 03:39 PM Ambar West * Ambar West: PERFORM Event Display: Nutrition Note Authored Date: [id number] score MST- given good appetite here, anticipate return of appetite and will maintain weight withoutintervention of needing high calorie foods/protein/shake etc. Electronically Signed on 07/17/23 03:41 PM Ambar Wset Progress note * Dusty Gudino MD: PERFORM Event Display: Progress Note - Physician Authored Date: [id number] EARL ESTRADA :1965 Age:58 years Sex:Female Visit Date:07/15/2023 Subjective Patient feeling improved Objective Vitals & Measurements T:??36.1?C ??(Temporal Artery)?? TMIN:??36.1?C ??(Temporal Artery)?? TMAX:??36.5?C ??(Temporal Artery)?? HR:??86??(Peripheral)?? RR:??14?? BP:??140/75?? SpO2:??95%?? Pain Score:??2?? O2 Therapy:??Room air?? Physical Exam General:??Alert and oriented, No acute distress Eye:??PERRL, EOMI, normal conjunctiva Lungs:??Clear to auscultation and percussion, Non-labored respiration Heart:??Normal rate, Normal rhythm, No murmur, No gallop Abdomen:??Soft, non-tender, non-distended, normal bowel sounds, no masses Chin now with some pus draining??cultured??looks much better than yesterday Abdominal area with improving erythema still a tiny bit of possible fluctuance Lab Results Labs??(Last four charted values) WBC ?8.0?(DEC 25)?H??12.9?(DEC 24) Hgb ?13.1?(DEC 25)?15.6?(DEC 24) Hct ?38.1?(DEC 25)?45.4?(DEC 24) Plt ?290?(DEC 25)?331?(DEC 24) Na ?139?(DEC 25)?136?(DEC 24) K ?3.8?(DEC 25)?L??3.4?(DEC 24) CO2 ?25?(DEC 25)?28?(DEC 24) Cr ?0.60?(DEC 25)?0.60?(JUL 15) BUN ?19?(JUL 16)?14?(JUL 15) Glucose Random ?H??284?(JUL 16)?H??273?(JUL 15) Diagnostic Results Medications (12) Active Scheduled: (9) Acetaminophen 500 mg Tab [LTTL] ??1,000 mg 2 tab, Oral, every 8 hr (haris) Dextrose 50% Inj 50 mL Syringe [LTTL] ??25 g 50 mL, IV Push, As Directed Enoxaparin 40 mg/0.4 mL Inj Syr [LTTL] ??40 mg 0.4 mL, Subcutaneous, Daily Glucagon 1 mg Inj ??[LTTL] ??1 mg 1 EA, Subcutaneous, As Directed Insulin aspart 100 units/mL Inj 3 ml Pen [LTTL] ??Insulin Aspart Sliding Scale See Comments, Subcutaneous, AC Insulin glargine-yfgn 100 units/mL 3 mL pen [LTTL] ??10 units 0.1 mL, Subcutaneous, every evening Petrolatum 41% Top Oint 50 gm [LTTL] ??1 ethan, Topical, QID Potassium Chloride 20 mEq ER Tab [LTTL] ??40 mEq 2 tab, Oral, BID vancomycin ??1,250 mg 250 mL, IV Piggyback, every 12 hr Continuous: (0) PRN: (3) Ibuprofen 600 mg Tab [LTTL] ??600 mg 1 tab, Oral, every 6 hr Ondansetron 2 mg/mL Inj 2 ml Vial [LTTL] ??4 mg 2 mL, IV Push, every 6 hr oxyCODONE 5 mg Tab [LTTL] ??5 mg 1 tab, Oral, BID Assessment/Plan 1.??Diabetes??E11.9 Will start going up on insulin blood sugars are high Ordered: ibuprofen, 600 mg = 1 tab, Oral, Tab, every 6 hr for 30 days, PRN pain, First Dose: 07/16/23 14:09:00 EST, Stop Date: 08/15/23 14:08:00 EST, Physician Stop, Routine insulin glargine, 10 units = 0.1 mL, Subcutaneous, Soln, every evening, First Dose: 07/15/23 21:00:00 EST, Physician Stop, Routine petrolatum topical, 1 ethan, Topical, Ointment, QID, First Dose: 07/15/23 17:00:00 EST, Physician Stop, Routine US Soft Tissue, 07/16/23 16:52:00 EST, Routine, Reason: eval for abscess in mid abd area, TransportMode: Wheelchair, Diabetes Abscess Hypertension Wound Culture Deep, Abscess, Chin, Routine collect, RT - Routine, 07/16/23 16:51:00 EST, Once, Nurse collect, Diabetes Abscess Hypertension, Print Label ?? 2.??Abscess??L02.91 Medically improving greatly now we will get a skin culture from the abscess on the chin this is draining on its own, continue vancomycin tomorrow order abdominal ultrasound over soft tissue to look for??abscess in that area Ordered: ibuprofen, 600 mg = 1 tab, Oral, Tab, every 6 hr for 30 days, PRN pain, First Dose: 07/16/23 14:09:00 EST, Stop Date: 08/15/23 14:08:00 EST, Physician Stop, Routine insulin glargine, 10 units = 0.1 mL, Subcutaneous, Soln, every evening, First Dose: 07/15/23 21:00:00 EST, Physician Stop, Routine petrolatum topical, 1 ethan, Topical, Ointment, QID, First Dose: 07/15/23 17:00:00 EST, Physician Stop, Routine US Soft Tissue, 07/16/23 16:52:00 EST, Routine, Reason: eval for abscess in mid abd area, TransportMode: Wheelchair, Diabetes Abscess Hypertension Wound Culture Deep, Abscess, Chin, Routine collect, RT - Routine, 07/16/23 16:51:00 EST, Once, Nurse collect, Diabetes Abscess Hypertension, Print Label ?? 3.??Hypertension??I10 Ordered: ibuprofen, 600 mg = 1 tab, Oral, Tab, every 6 hr for 30 days, PRN pain, First Dose: 07/16/23 14:09:00 EST, Stop Date: 08/15/23 14:08:00 EST, Physician Stop, Routine insulin glargine, 10 units = 0.1 mL, Subcutaneous, Soln, every evening, First Dose: 07/15/23 21:00:00 EST, Physician Stop, Routine petrolatum topical, 1 ethan, Topical, Ointment, QID, First Dose: 07/15/23 17:00:00 EST, Physician Stop, Routine US Soft Tissue, 07/16/23 16:52:00 EST, Routine, Reason: eval for abscess in mid abd area, TransportMode: Wheelchair, Diabetes Abscess Hypertension Wound Culture Deep, Abscess, Chin, Routine collect, RT - Routine, 07/16/23 16:51:00 EST, Once, Nurse collect, Diabetes Abscess Hypertension, Print Label ?? Orders: acetaminophen, 1,000 mg = 2 tab, Oral, Tab, every 8 hr (haris), First Dose: 07/16/23 10:00:00 EST, Routine oxyCODONE 5 mg oral tablet, 5 mg = 1 tab, Oral, Tab, BID, PRN pain, First Dose: 07/15/23 16:55:00 EST, Routine Electronically Signed on 07/16/23 04:54 PM Dusty Gudino MD History and physical note * Dusty Gudino MD: PERFORM Event Display: History and Physical Authored Date: [id number] EARL ESTRADA :1965 Age:58 years Sex:Female Visit Date:07/15/2023 Chief Complaint Abscess History of Present Illness Patient has been dealing with multiple abscesses on her body for 8 weeks. ??Particularly there is 1on her chin??which seems to be getting??worse??over the past several weeks. ??She has been on multiple antibiotics and currently is on??doxycycline. ??She comes in today because now she feels that there is some??pain??and swelling??down into??the front of her neck??and feels a little full sensationunder her tongue??and??feels this is a sensation of difficulty opening her mouth. [1] no drug use, no known contacts with caries of MRSA and??not working??healthcare. ?? Not having fevers chills Review of Systems Constitutional:??No fevers overnight Respiratory:??No shortness of breath Cardiovascular:??No Chest pain Gastrointestinal:??No nausea, vomiting, diarrhea Musculoskeletal:??No new joint pain Physical Exam Vitals & Measurements T:??37?C ??(Oral)?? TMIN:??36.7?C ??(Oral)?? TMAX:??37?C ??(Oral)?? HR:??147??(Peripheral)?? RR:??18?? BP:??160/91?? SpO2:??98%?? HT:??167??cm?? WT:??77.9??kg?? WT:??77.9??kg?? BMI:??27.93?? Pain Score:??5?? O2 Therapy:??Room air?? General:??Alert and oriented, No acute distress Eye:??PERRL, EOMI, normal conjunctiva Lungs:??Clear to auscultation and percussion, Non-labored respiration Heart:??Normal rate, Normal rhythm, No murmur, No gallop Abdomen:??Soft, non-tender, non-distended, normal bowel sounds, no masses Skin exam with??in the middle the chin??some scabbing over the??very firm area hard to tell with pus??what is??induration for cellulitis??but overall has??no evidence of deep space neck infection no tenderness along the side of the neck. Drained abscess??some small cellulitis in the left upper abdomen area ?? Labs??(Last four charted values) WBC ?H??12.9?(JUL 15) Hgb ?15.6?(JUL 15) Hct ?45.4?(JUL 15) Plt ?331?(JUL 15) Na ?136?(JUL 15) K ?L??3.4?(JUL 15) CO2 ?28?(JUL 15) Cr ?0.60?(JUL 15) BUN ?14?(JUL 15) Glucose Random ?H??273?(JUL 15) Assessment/Plan 1.??Diabetes??E11.9 Insulin sliding scale, will add some glargine as well Ordered: petrolatum topical, 1 ethan, Topical, Ointment, QID, First Dose: 07/15/23 17:00:00 EST, Physician Stop, Routine potassium chloride, 40 mEq = 2 tab, Oral, Tab-ER, BID for 30 days, First Dose: 07/15/23 21:00:00 EST, Stop Date: 08/14/23 20:59:00 EST, Physician Stop, Routine Blood Glucose Monitoring POC RE, 07/15/23 15:04:00 EST, AC & bedtime, Diabetes Abscess Hypertension ?? 2.??Abscess??L02.91 For now we will do the broad-spectrum antibiotics of Vanco??cefepime??Flagyl anticipate these are all MRSA infections??and likely switch to just Vanco tomorrow Ordered: petrolatum topical, 1 ethan, Topical, Ointment, QID, First Dose: 07/15/23 17:00:00 EST, Physician Stop, Routine potassium chloride, 40 mEq = 2 tab, Oral, Tab-ER, BID for 30 days, First Dose: 07/15/23 21:00:00 EST, Stop Date: 08/14/23 20:59:00 EST, Physician Stop, Routine Blood Glucose Monitoring POC RE, 07/15/23 15:04:00 EST, AC & bedtime, Diabetes Abscess Hypertension ?? 3.??Hypertension??I10 Monitor but hold antihypertensives while here ?? Lovenox for DVT prophylaxis, full code Ordered: petrolatum topical, 1 ethan, Topical, Ointment, QID, First Dose: 07/15/23 17:00:00 EST, Physician Stop, Routine potassium chloride, 40 mEq = 2 tab, Oral, Tab-ER, BID for 30 days, First Dose: 07/15/23 21:00:00 EST, Stop Date: 08/14/23 20:59:00 EST, Physician Stop, Routine Blood Glucose Monitoring POC RE, 07/15/23 15:04:00 EST, AC & bedtime, Diabetes Abscess Hypertension ?? Orders: enoxaparin, 40 mg = 0.4 mL, Subcutaneous, Injection, Daily, First Dose: 07/16/23 9:00:00 EST, Routine glucagon, 1 mg = 1 EA, Subcutaneous, Injection, As Directed, First Dose: 07/15/23 15:05:00 EST, Physician Stop, Routine Dextrose 50% injection, 25 g = 50 mL, IV Push, Injection, As Directed, First Dose: 07/15/23 15:05:00 EST, Physician Stop, Routine insulin aspart Sliding Scale - Low Dose, Insulin Aspart Sliding Scale See Comments, Subcutaneous, Injection, AC, First Dose: 07/15/23 16:30:00 EST, Routine vancomycin, 1,250 mg = 250 mL, IV Piggyback, Injection, every 12 hr, Antibiotic Indication Cellulitis, Administer over: 90 minutes, First Dose: 07/15/23 18:00:00 EST, Stop Date: 08/14/23 17:59:00 EST, Physician Stop, Routine, 166.67 mL/hr Ambulate, 07/15/23 15:03:00 EST, Constant order Basic Metabolic Panel, Blood, Routine, 07/15/23 15:04:00 EST, Daily, for 3 days, Lab Collect CBC w/ Diff, Blood, Routine, 07/15/23 15:04:00 EST, Daily, for 3 days, Lab Collect Diet Order, 07/15/23 15:03:00 EST, Regular Patient Condition, 07/15/23 15:03:00 EST, Condition Guarded PSO Admit to Inpatient, [facility], Inpatient, 07/15/23 14:58:00 EST, 07/15/23 14:58:00 EST, 07/15/23 14:58:00 EST, Less than 96 hours Resuscitation Status, 07/15/23 15:03:00 EST, Full Code Vital Signs, 07/15/23 15:03:00 EST, QID Images (07/15/2023 09:[address] Neck Soft Tissue w/ Contrast) Soft tissues: Anterior and submandibular subcutaneous fat stranding with rim?? enhancing non air containing irregularly-shaped multilobulated approximate 2.5?? cm craniocaudal by 1 cm AP by up to 1.1 cm transverse abscess/phlegmon. No?? mandibular periosteal reaction, cortical destruction or osteolysis.? IMPRESSION:?? 1. ?? Anterior mandibular/submandibular subcutaneous cellulitis and abscess?? without mandibular osteomyelitis likely secondary to dental disease and?? mandibular tooth periapical abscess formation?? 2. ?? Additional findings/limitations as noted.? [2] Problem List/Past Medical History Ongoing Diabetes High cholesterol Hypertension Historical No qualifying data Medications Inpatient cefepime Dextrose 50% injection, 25 g= 50 mL, IV Push, As Directed enoxaparin, 40 mg= 0.4 mL, Subcutaneous, Daily glucagon, 1 mg= 1 EA, Subcutaneous, As Directed insulin aspart Sliding Scale - Low Dose, Insulin Aspart Sliding Scale See Comments, Subcutaneous, AC metroNIDAZOLE, 500 mg= 100 mL, IV Piggyback, every 8 hr NS drip 1,000 mL, 1000 mL, IV petrolatum topical, 1 ethan, Topical, QID potassium chloride, 40 mEq= 2 tab, Oral, BID vancomycin, 1250 mg= 250 mL, IV Piggyback, [...] Never Electronic Cigarette/Vaping Electronic Cigarette Use: Never. Substance Use Never Tobacco Never tobacco user Tobacco Use:. Lab Results Test Name Test Result Date/Time WBC 12.9 K/mcL 07/15/2023 09:00 EST RBC 5.12 Million/mcL 07/15/2023 09:00 EST Hgb 15.6 g/dL 07/15/2023 09:00 EST Hct 45.4 % 07/15/2023 09:00 EST MCV 88.6 fL 07/15/2023 09:00 EST MCH 30.5 pg 07/15/2023 09:00 EST MCHC 34.5 g/dL 07/15/2023 09:00 EST RDW-CV 12.5 % 07/15/2023 09:00 EST Platelets 331 K/mcL 07/15/2023 09:00 EST MPV 9.2 fL 07/15/2023 09:00 EST Neutro Auto 69.4 % 07/15/2023 09:00 EST Lymph Auto 20.2 % 07/15/2023 09:00 EST Millard Auto 7.4 % 07/15/2023 09:00 EST Eos, Auto 2.50 % 07/15/2023 09:00 EST Basophil Auto 0.5 % 07/15/2023 09:00 EST Neutro Absolute 9.0 K/mcL 07/15/2023 09:00 EST Lymph Absolute 2.6 K/mcL 07/15/2023 09:00 EST Millard Absolute 1.0 K/mcL 07/15/2023 09:00 EST Eos Absolute 0.3 K/mcL 07/15/2023 09:00 EST Baso Absolute 0.1 K/mcL 07/15/2023 09:00 EST ESR, Westergren 34 mm/hr 07/15/2023 09:00 EST Sodium Level 136 mmol/L 07/15/2023 09:00 EST Potassium Level 3.4 mmol/L 07/15/2023 09:00 EST Chloride Level 99 mmol/L 07/15/2023 09:00 EST CO2 28 mmol/L 07/15/2023 09:00 EST Alk Phos 139 IntlUnit/L 07/15/2023 09:00 EST AST 12 IntlUnit/L 07/15/2023 09:00 EST ALT 16 IntlUnit/L 07/15/2023 09:00 EST BUN 14 mg/dL 07/15/2023 09:00 EST Glucose Level 273 mg/dL 07/15/2023 09:00 EST Creatinine Level 0.60 mg/dL 07/15/2023 09:00 EST BUN/Creat Ratio 23.3 07/15/2023 09:00 EST eGFR CKD-EPI 103 mL/min/1.73 m2 07/15/2023 09:00 EST Calcium Level 9.1 mg/dL 07/15/2023 09:00 EST Protein Total 6.5 g/dL 07/15/2023 09:00 EST Albumin Level 3.6 g/dL 07/15/2023 09:00 EST Globulin 2.9 g/dL 07/15/2023 09:00 EST A/G Ratio 1.2 g/dL 07/15/2023 09:00 EST Bilirubin Total 0.7 mg/dL 07/15/2023 09:00 EST Anion Gap 9.0 07/15/2023 09:00 EST Osmolality 282 mOsm/kg 07/15/2023 09:00 EST CRP 180.4 mg/L 07/15/2023 09:00 EST Glucose POC 217 07/15/2023 16:32 EST [1]??ED Provider Note; Marquez Cruz MD 07/15/2023 08:48 EST [2]??CT Neck Soft Tissue w/ Contrast; Adolfo Herbert MD 07/15/2023 09:17 EST Electronically Signed on 07/15/23 04:52 PM Dusty Gudino MD Discharge summary * Dusty Gudino MD: PERFORM Event Display: Discharge Summary Authored Date: [id number] EARL ESTRADA :1965 Age:58 years Sex:Female Visit Date:07/15/2023 Hospital Course 58-year-old female with history of diabetes??presented to hospital with about 8 weeks of intermittent skin infections??requiring drainages.?? She had an abscess over the chin in the abdomen here which was treated with vancomycin, culture results showing MRSA.?Both areas are draining pretty well on her own, ENT??took a look at the 1 on the chin talk with her about pros and cons of further drainage and she declined??given how much she is improved which??I cannot testify horacio??she is much better than on admission. ?? She will get her dose of??dalbavancin today on the day of??discharge??which should cover antibiotics for over a week??she will follow-up with general surgery and wound clinic for the abdomen and ENT for the chin??she is working on getting a new primary care doctor with [facility]. Physical Exam Vitals & Measurements T:??35.8?C ??(Temporal Artery)?? TMIN:??35.8?C ??(Temporal Artery)?? TMAX:??36.8?C ??(Temporal Artery)?? HR:??83??(Peripheral)?? RR:??16?? BP:??156/95?? SpO2:??97%?? Pain Score:??0?? O2 Therapy:??Room air?? General:??[Alert and oriented, No acute distress] Eye: [PERRL, EOMI, normal conjunctiva] Lungs:??[Clear to auscultation and percussion,??Non-labored respiration] Heart:??[ Normal rate,??Normal rhythm,??No murmur, No gallop] Abdomen:??[Soft, non-tender, non-distended, normal bowel sounds, no masses chin, looks substantially better there is no longer any dry cracked inflamed areas??not hot to the touch and only a teeny amount of pus??can be expressed now much less pain, some induration around the area ?? Abdominal skin lesion now draining pus??slight erythema around Social History Alcohol Never Electronic Cigarette/Vaping Electronic Cigarette Use: Never. Home/Environment Living situation: Home/Independent. Substance Use Never Tobacco Never tobacco user Tobacco Use:. Lab Results Labs??(Last four charted values) WBC ?7.1?(JUL 17)?8.0?(JUL 16)?H??12.9?(DEC 24) Hgb ?12.9?(DEC 26)?13.1?(DEC 25)?15.6?(DEC 24) Hct ?38.2?(DEC 26)?38.1?(DEC 25)?45.4?(DEC 24) Plt ?306?(DEC 26)?290?(DEC 25)?331?(DEC 24) Na ?138?(DEC 26)?139?(DEC 25)?136?(DEC 24) K ?4.2?(DEC 26)?3.8?(DEC 25)?L??3.4?(DEC 24) CO2 ?24?(DEC 26)?25?(DEC 25)?28?(DEC 24) Cr ?0.60?(DEC 26)?0.60?(DEC 25)?0.60?(DEC 24) BUN ?17?(DEC 26)?19?(DEC 25)?14?(DEC 24) Glucose Random ?H??243?(JUL 17)?H??284?(JUL 16)?H??273?(JUL 15) Discharge Plan 1.??Diabetes??E11.9 She takes metformin??blood sugars likely higher based on infection??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 Navas, Diabetes Abscess Hypertension Wound Culture Deep, Abscess, Chin, Routine collect, RT - Routine, 07/16/23 16:51:00 EST, Once, Nurse collect, Diabetes Abscess Hypertension, Print Label ?? 2.??Abscess??L02.91 Dalbavancin??as described above??wound care clinic as described above Ordered: insulin glargine, 17 units = 0.17 mL, Subcutaneous, Soln, every evening, First Dose: 07/16/23 21:00:00 EST, Physician Stop, Routine Discharge Patient, 07/17/23 11:28:00 EST Follow Up Appointment, 07/17/23 15:42:00 EST, referall to Gen Surg clinic for abdominal wound, Diabetes Abscess Hypertension Follow Up Appointment, 07/17/23 15:42:00 EST, follow up with ENT Dr. Navas, Diabetes Abscess Hypertension Wound Culture Deep, Abscess, Chin, Routine collect, RT - Routine, 07/16/23 16:51:00 EST, Once, Nurse collect, Diabetes Abscess Hypertension, Print Label ?? 3.??Hypertension??I10 Ordered: insulin glargine, 17 units = 0.17 mL, Subcutaneous, Soln, every evening, First Dose: 07/16/23 21:00:00 EST, Physician Stop, Routine Discharge Patient, 07/17/23 11:28:00 EST Follow Up Appointment, 07/17/23 15:42:00 EST, referall to Gen Surg clinic for abdominal wound, Diabetes Abscess Hypertension Follow Up Appointment, 07/17/23 15:42:00 EST, follow up with ENT Dr. Navas, Diabetes Abscess Hypertension Wound Culture Deep, Abscess, Chin, Routine collect, RT - Routine, 07/16/23 16:51:00 EST, Once, Nurse collect, Diabetes Abscess Hypertension, Print Label ?? Orders: chlorhexidine 4% topical soap, See Instructions, as directed, # 120 mL, 0 Refill(s), called to pharmacy (Rx) Dextrose 50% injection, 25 g = 50 mL, IV Push, Injection, As Directed, First Dose: 07/16/23 16:57:00 EST, Physician Stop, Routine All Diagnoses This Visit Diabetes Abscess Hypertension Patient Instructions We will give you 1 bottle of Hibiclens??that is all the pharmacy has,??how to use this every day orevery other day in the shower as I described to you??and it may go some way to help prevent any infections in the future Patient Education Skin Abscess Blank Education (Custom) Follow Up With When Contact Information Follow up with primary care provider Within 1 month Additional Instructions: Medication Reconciliation New Prescription chlorhexidine topical (chlorhexidine 4% topical soap)as directed. Refills: 0. ?? Unchanged acetaminophen (Tylenol Extra Strength 500 mg oral tablet)2 tab Oral (given by mouth) every 8 hours.altunating with ibuprofen 800mg every 8 hours (takes one or the other every 4 hours). ?? amlodipine-atorvastatin (amlodipine-atorvastatin 10 mg-40 mg oral tablet)1 tab Oral (given by mouth) every day. ?? ibuprofen (Advil)800 Milligrams Oral (given by mouth) every 8 hours. alturnating with [id number] every 8 hours,, takes one or the other every four hours. ?? metFORMIN (metFORMIN 1000 mg oral tablet)1 tab Oral (given by mouth) 2 times a day. ?? mupirocin topical (mupirocin 2% topical cream)1 Application Topical (on the skin) 3 times a day for10 Days. Refills: 1. ?? oxyCODONE (oxyCODONE 5 mg oral tablet)1 tab Oral (given by mouth) every 6 hours as needed as neededfor pain. # [address] [facility]. ?? Discontinued cephalexin (cephalexin 500 mg oral capsule)1 Capsules Oral (given by mouth) 4 times a day for 7 Days. Refills: 0. ?? clindamycin (clindamycin 300 mg oral capsule)1 Capsules Oral (given by mouth) every 8 hours for 7 Days. Refills: 0. ?? clotrimazole topical (clotrimazole 1% topical cream)1 Application Topical (on the skin) 2 times a day. Refills: 0. ?? doxycycline (doxycycline hyclate 100 mg oral capsule)1 Capsules Oral (given by mouth) 2 times a dayfor 7 Days. Refills: 0. ?? doxycycline (doxycycline hyclate 100 mg oral tablet)1 tab Oral (given by mouth) 2 times a day for 14 Days. Refills: 0. ?? fluconazole (Diflucan 200 mg [...] as needed for itching. Refills: 0. ?? metoprolol (Metoprolol Succinate ER 100 mg [...] 1. ?? valACYclovir (valACYclovir 500 mg oral tablet)1 tab Oral (given by mouth) every day as needed other(see comment). as needed for cold sore. Electronically Signed on 07/17/23 03:51 PM Dusty Gudino MD Patient Care team information Care Team Personnel Name: Marquez Cruz MD Position: Physician Member Role: ED Physician Address: Address: [address] [place] [address] [place] Name: Jeffery Handy DO Position: Physician Member Role: Physician Address: Address: [address] [place] [address] [place] Name: Maryellen Chicas Position: Nurse Member Role: Registered Nurse Care Team Related Persons Name: TRACI ESTRADA Name: TRACI ESTRADA
--- OUTSIDE RECORDS SUMMARY | 2024-02-17 09:35 | XMS_ITS | Encounter Summary ---
Author Organization [facility] Address [address] [place] [address] Care Team Providers Care Manager Membership Name Role Phone Aaliyah Terese K GRID MAKER Primary Care Provider [phone] Encounter Details Date Type Department Care Team (Late st Contact Info) Description 08/05/[address] [facility] Pathology & Laboratory Medicine - [address] [address] Unknown, Provider, Social History Tobacco Use Types Packs/Day Years Used Date Smoking Tobacco: Never Smokeless Tobacco: Never Alcohol Use Standard Drinks/Week Comments No 0 (1 standard drink = 0.6 oz pur e alcohol) Sex and Gender Information Value Date Recorded Sex Assigned at Not on file Gender Identity Not on file Sexual Orientation Not on file documented as of this encounter Plan of Treatment Not on file documented as of this encounter Procedures Procedure Name Priority Date/Time Associated Diagnosis Comments QUANTIFERON TB GOLD PLUS Routine 08/04/2019 12:50 EST documented in this encounter Results * QUANTIFERON TB GOLD PLUS (08/04/2019 12:50 EST) Quantiferon Interpretation Negative Negative 08/06/2019 13:25 EST [facility] Comment: No interferon-gamma response to M. tuberculosis antigens was detected. ??Infection with M. tuberculosis is unlikely. A single negative result does not exclude infection with M. tuberculosis. ??In patients at high risk for M. tuberculosis infection, a second test should be considered in accordance with the 2017 ATS/IDSA/CDC Clinical Practice Guidelines for Diagnosis of Tuberculosis in Adults and Children. [Pennie GEORGE et. al. Clin. Infect. Dis. 2017:64 (2) ??: 111-115]. Results were obtained with the Qiagen QuantiFERON TB Gold Plus CHEMO. TB1 Ag minus Nil 0.00 IU/ml 08/06/19 20 13:25 EST [facility] TB2 Ag minus Nil 0.00 IU/mL 08/06/19 20 13:25 EST [facility] Blood VENOUS BLOOD / Unknown 08/04/2019 12:50 EST 08/05/2019 16:12 EST Narrative [facility] - 08/06/2019 13:25 EST Results were obtained with the Qiagen QuantiFERON-TB Gold Plus CHEMO. Provider Unknown CHEMISTRY & BLOOD GA S ORDERABLES Performing Organization Address City/State/[facility] Co de Phone Number [facility] [address] [place] [address] documented in this encounter Visit Diagnoses Not on filedocumented in this encounter Care Teams Manager Membership Relationship Specialty Start Date End Date Terese Fischer NP [address] [place] [address] PCP - General 12/19/18 documented as of this encounter
--- OUTSIDE RECORDS SUMMARY | 2024-02-17 09:35 | XMS_ITS | Encounter Summary ---
Author Organization [facility] Address [address] [place] [address] Care Team Providers Care Aids Nurse Name Role Phone None, Provider Primary Care Provider Unavailabl e Encounter Details Date Type Department Care Team (Late st Contact Info) Description 02/12/2018 Phlebotomy Only [facility] [address] [place] [address] Cylinder Valve Repairer, Outpatient Social History Tobacco Use Types Packs/Day Years Used Date Smoking Tobacco: Never Alcohol Use Standard Drinks/Week Comments No 0 (1 standard drink = 0.6 oz pur e alcohol) Sex and Gender Information Value Date Recorded Sex Assigned at Not on file Gender Identity Not on file Sexual Orientation Not on file documented as of this encounter Plan of Treatment Not on file documented as of this encounter Visit Diagnoses Not on filedocumented in this encounter Care Teams Aids Nurse Relationship Specialty Start Date End Date None, Provider PCP - General 01/31/18 12/18/18 documented as of this encounter
--- OUTSIDE RECORDS SUMMARY | 2024-02-17 09:35 | XMS_ITS | Encounter Summary ---
Author Organization [facility] Address [address] [place] [address] Care Team Providers Care Customer Relations Specialist Name Role Phone Jim Chadwick MD Primary Care Provider [phone] Reason for Visit * Reason Comments New Patient Visit Itchy rash that bega n 4 weeks ago Encounter Details Date Type Department Care Team (Late st Contact Info) Description 04/24/2012 13:00 EDT Office Visit [facility] Dermatology [address] [address] Kendy Ash, PALb [address] [place] [address], [address] [place] [address] Contact dermatitis and other eczema due to other chemical products; Id reaction Social History Tobacco Use Types Packs/Day Years Used Date Smoking Tobacco: Never Alcohol Use Standard Drinks/Week Comments No 0 (1 standard drink = 0.6 oz pur e alcohol) Sex and Gender Information Value Date Recorded Sex Assigned at Not on file Gender Identity Not on file Sexual Orientation Not on file documented as of this encounter Ordered Prescriptions Prescription Sig Dispensed Refills Start Date End Da te triamcinolone (KENALOG) 0.1 % ointment Apply and rub in well to the less itchy areas 60 g 0 04/24/2012 clobetasol (TEMOVATE) 0.05 % cream Use once a day and rub in well until rash is gone 60 g 1 04/24/2012 documented in this encounter Progress Notes * Shahnaz Doll MD - 04/24/2012 1617 EDT I was the supervising physician and was present in the clinic during this visit. Note reviewed, patient was not seen by me. SHAHNAZ DOLL MD * NilsaGastona LY Bansal - 04/24/2012 1409 EDT DERMATOLOGY OUT PATIENT PROGRESS NOTE PROBLEM: RASH SUBJECTIVE: Patient presents today for evaluation of a rash on the torso, upper extremities, lower extremities (and left inguinal crease) and hands. Present for: a month Itchy? Yes: extremely Painful? No Evaluated by other provider? Yes (ED and PCP X 2) 1. Had tattoo applied by non-licensed person 1 month ago (has 2 other tattoos from another pastry artist who is licensed) 2. About 1 1/2 weeks after, she noticed the red heart-shaped winged tattoo had completely disappeared 3. Itching began over the area of the tattoo on the right hand and redness and rash spread up theright arm 4. Went to local ED - told it was scabies, treated twice with permethrin but itching and rash continued OTC treatments tried: OTC HC, permethrin Rx treatments tried: 1. TMP/SMX X 5 days - rash 'worsened' - thought med allergy 2. Changed to Keflex (still taking) 3. Took taper course of prednisone (no real help) 4. Hydroxyzine 50 mg - helps a bit with itching 5. Triamcinolone 0.5% cream - no real help Aggravating / alleviating factors: heat, scratching Recent travel? No Other household members with similar rash? No Personal history of similar rash? No New medications? No Change in any products (lotions, soaps, laundry products, make-up)? No RECENT ILLNESS? No I reviewed outside notes from Mitlon Kerr's office. OBJECTIVE: No apparent distress. Appropriate affect and demeanor. SKIN EXAM: The following areas were examined: head (including scalp and face), neck, back, chest, breasts, axillae, abdomen, upper extremities, lower extremities, hands and feet . FINDINGS: 1. Right dorsal hand - lichenified patch over 1st web space and anatomic snuffbox; pink, scaly patches over hand and extensor surface of arm 2. Left hand and arm - similar, though much less prominent findings 3. Torso - multiple pink, scaly papules along lower back, breasts 4. Legs - scattered folliculocentric papules, some crusted 5. Left inguinal crease (deep) - 6 X 4 cm oval pink patch 6. 2 other tattoos (tiger and a Tigger) - all colors intact with no erythema or edema 7. Hands - no joint swelling, FROM both hands with no pain elicited . BIOPSY DONE? no CULTURE DONE? n/a HUANG: Not Indicated ASSESSMENT: 1. Contact dermatitis - unclear precipitant (could have been needle, substance used for tattoo - was NOT tattoo ink as these DO NOT disappear) 2. Id reaction PLAN: 1. Clobetasol cream twice a day to the worst areas, once a day to other areas until clear (rub in well) 2. Finish Keflex and prednisone taper 3. Triamcinolone 0.1% ointment (for a few days only to groin, breast) 4. Continue hydroxyzine 5. Reassured she is not contagious 6. Cool compresses to itchiest areas 7. Call me in 2 weeks to report 8. 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 Suggest Hep C serology (unknown needle source) 10. Follow up: if worsening or with any concerns Discussed with MD Kendy Watson PA 14:09 04/24/2012 * Suma Escalante - 04/24/2012 1325 EDT A complete 12 point review of systems was obtained and reviewed. All systems are negative except for: rash, itching, new or changing skin lesions, difficulty sleeping. Suma Escalante 04/24/2012 13:25 Kendy Ash PA-C 15:28 04/24/2012 documented in this encounter Plan of Treatment Not on file documented as of this encounter Visit Diagnoses Diagnosis Contact dermatitis and other eczema due to other chemical products Id reaction Contact dermatitis and other eczema due to other specified agent documented in this encounter Historical Medications * This list may reflect changes made after this encounter. Medication Sig Dispensed Refills Start Date End Date hydrOXYzine (ATARAX) 50 mg tablet Take 50 mg by mouth as needed. predniSONE (DELTASONE) 20 mg tablet Take 20 mg by mouth as needed. cephALEXin (KEFLEX) 500 mg capsule Take 500 mg by mouth 4 times daily. ATENOLOL ORAL Take 40 mg by mouth daily. added in this encounter Care Teams Customer Relations Specialist Relationship Specialty Start Date End Date Jim Chadwick MD [address] [place] [address] PCP - General 07/26/10 01/30/18 documented as of this encounter
--- OUTSIDE RECORDS SUMMARY | 2024-02-17 09:35 | XMS_ITS | Encounter Summary ---
Author Organization [facility] Address [address] [place] [address] Care Team Providers Care Fuller Brush Worker Name Role Phone Terese Fischer BUTCHER OR SMALLGOODS MAKER Primary Care Provider [phone] Encounter Details Date Type Department Care Team (Late st Contact Info) Description 07/13/2020 Lab Requisition [facility] Pathology & Laboratory Medicine - [address] [address] Outr Resulting Lab, Provider Social History Tobacco Use Types Packs/Day Years Used Date Smoking Tobacco: Never Smokeless Tobacco: Never Alcohol Use Standard Drinks/Week Comments No 0 (1 standard drink = 0.6 oz pur e alcohol) Interpersonal Safety Answer Date Record ed Physically Hurt Never 02/22/2020 Verbally Threaten Not on file 02/22/2020 Sex and Gender Information Value Date Recorded Sex Assigned at Not on file Gender Identity Not on file Sexual Orientation Not on file documented as of this encounter Plan of Treatment Not on file documented as of this encounter Procedures Procedure Name Priority Date/Time Associated Diagnosis Comments [facility] Routine 07/13/2020 10:45 EST documented in this encounter Results * [facility] (07/13/2020 10:45 EST) Lead <2.0 <=4.9 ug/dL 07/14/2020 11:18 EST [facility] Blood VENOUS BLOOD / Unknown 07/13/2020 10:45 EST 07/13/2020 21:05 EST Narrative [facility] - 07/14/2020 11:18 EST Testing performed using Graphite Furnace Atomic Absorption Spectroscopy. This test was developed and its performance characteristics determined by the [facility]. ??It has not been cleared or approved by the FDA. ??The laboratory is regulated under CLIA as qualified to perform high complexity testing. ??This test is used for clinical purposes. Provider Outr Resulting Lab CHEMISTRY & BLOOD GAS ORDERABLES [facility] [address] [place] [address] documented in this encounter Visit Diagnoses Not on filedocumented in this encounter Care Teams Fuller Brush Worker Relationship Specialty Start Date End Date Terese Fischer NP [address] [place] [phone] PCP - General 12/19/18 documented as of this encounter
--- OUTSIDE RECORDS SUMMARY | 2024-02-17 09:35 | XMS_ITS | Clinical Summary ---
Author Organization [facility] Address [address] [place] [address] Care Team Providers Care Application Packager Name Role Phone Aaliyah Terese Dalia FUR EXAMINER Primary Care Provider [phone] Allergies No known active allergies Medications Medication Sig Dispensed Refills Start Date End Date Status lisinopril (PRINIVIL, ZESTRIL) 40 mg tablet Take 80 mg by mouth daily. Active ATENOLOL ORAL Take 40 mg by mouth daily. Active cephALEXin (KEFLEX) 500 mg capsule Take 500 mg by mouth 4 times daily. Active predniSONE (DELTASONE) 20 mg tablet Take 20 mg by mouth as needed. Active hydrOXYzine (ATARAX) 50 mg tablet Take 50 mg by mouth as needed. Active clobetasol (TEMOVATE) 0.05 % cream Use once a day and rub in well until rash is gone 60 g 1 04/24/2012 Active Additional Information Patient not taking.Reported on 12/19/2018 triamcinolone (KENALOG) 0.1 % ointment Apply and rub in well to the less itchy areas 60 g 0 04/24/2012 Active Additional Information Patient not taking.Reported on 12/19/2018 metFORMIN (GLUCOPHAGE) 500 mg tablet Take 500 mg by mouth 2 times daily. Active Active Problems Problem Noted Date Diagnosed Date Contact dermatitis and other eczema due to other chemical products 04/24/2012 Surgical History Surgery Date Site/Laterality Comments CARDIAC SURGERY Medical History Medical History Date Comments Hypertension Family History Medical History Relation Comments Diabetes Mother Heart Disease Mother Hypertension Mother Stroke Mother Cancer Sister 2 Relation Status Comments Father Alive Mother Alive Sister 1 Alive Sister 2 Alive Social History Tobacco Use Types Packs/Day Years [...] on file Sexual Orientation Not on file Obstetrics History Last Filed Vital Signs Vital Sign Reading Time Taken Comments Blood Pressure 114/71 09/21/20105 EST Pulse 124 09/21/20102036 EST Temperature 37.3 ??C (99.1 ??F) 09/21/20102036 EST Respiratory Rate 16 09/21/20102036 EST Oxygen Saturation 93% 09/21/20102344 EST Inhaled Oxygen Concentration - - Weight 91.2 kg (201 lb) 09/21/20102036 EST Height 167.6 cm (5' 6) 09/21/20102036 EST Body Mass Index 32.44 09/21/20102036 EST Plan of Treatment Health Maintenance Due Date Last Done Comments Hepatitis C Screen 1965 Hepatitis B Vaccine (1 of 3 - 19+ 3-dose series) 02/04 COVID-19 Vaccine (2022- season) 2023 Care Teams Application Packager Relationship Specialty Start Date End Date Terese Fischer, FUR EXAMINER [address] [place] [phone] PCP - General 12/19/18
--- OUTSIDE RECORDS SUMMARY | 2024-02-17 09:35 | XMS_ITS | Encounter Summary ---
[place] [address] Care Team Providers Care Turpentine Distiller Name Role Phone Carl Garvey DNP Primary Care Provider [phone] Encounter Details Date Type Department Care Team (Late st Contact Info) Description 05/06/2020 [place] [phone] Ruthann Xie Social History Tobacco Use Types Packs/Day Years [...] on filedocumented in this encounter Care Teams Turpentine Distiller Relationship Specialty Start Date End Date Carl Garvey DNP PCP - General Family Medicine 05/03/20 documented as of this encounter
--- OUTSIDE RECORDS SUMMARY | 2024-02-17 09:35 | XMS_ITS | Encounter Summary ---
Author Organization [facility] Address [address] [place] [address] Care Team Providers Care Automatic Fancy Machine Operator Name Role Phone Jim Chadwick MD Primary Care Provider [phone] Encounter Details Date Type Department Care Team (Late st Contact Info) Description 09/08/2010 Results Only [facility] - [facility] [address] [place] [address] Jim Chadwick MD [address] [place] [id number] Social History Tobacco Use Types Packs/Day Years [...] Procedure Name Priority Date/Time Associated Diagnosis Comments COMPLETE BLOOD COUNT Routine 09/08/2010 9:30 EST ZZCA 125 Routine 09/08/2010 9:30 EST URIC ACID Routine 09/08/2010 9:30 EST TSH Routine 09/08/2010 9:30 EST LIPID PROFILE (INCLUDES CHOLESTEROL, TRIGLYCERIDES, HDL, LDL) Routine 09/08/2010 9:30 EST COMPREHENSIVE METABOLIC PANEL (CMP) Routine 09/08/2010 9:30 EST documented in this encounter Results * URIC ACID (09/08/2010 9:30 EST) Uric Acid 5.1 2.2 - 7.7 mg/dl [facility] 09/08/2010 9:30 EST 09/08/2010 19:21 EST Jim Chadwick MD CHEMISTRY & BLOOD GA S ORDERABLES Performing Organization Address [facility] Phone Number [facility] [address] [place] [address] * TSH (09/08/2010 9:30 EST) TSH 1.58 0.35 - 5.00 uIU/ml [facility] 09/08/2010 9:30 EST 09/08/2010 19:21 EST Jim Chadwick MD CHEMISTRY & BLOOD GA S ORDERABLES Performing Organization Address [facility] Phone Number [facility] [address] [place] [address] * LIPID PROFILE (INCLUDES CHOLESTEROL, TRIGLYCERIDES, HDL, LDL) (09/08/2010 9:30 EST) Cholesterol 183 mg/dl [facility] Comment:Desirable:<200 Borde rline High:200-239 High:>hc=241 Triglycerides 69 35 - 160 mg/dl [facility] HDL 66 mg/dl [facility] Comment:Low:<40 High(Desirab le):>or=60 LDL, Calculated 103 mg/dl [facility] Comment: Optimal:<100 Above optimal:100-129 Borderline High:130-159 High:160-189 Very High:>lp=257 Chol/HDL Ratio 2.8 [facility] Fasting? Yes [facility] 09/08/2010 9:30 EST 09/08/2010 19:21 EST Jim Chadwick MD CHEMISTRY & BLOOD GA S ORDERABLES Performing Organization Address [facility] de Phone Number [facility] [address] [place] [address] * (ABNORMAL) COMPREHENSIVE METABOLIC PANEL (CMP) (09/08/2010 9:30 EST) Potassium 4.4 3.5 - 5.0 mEq/L [facility] Sodium 139 136 - 145 mEq/L [facility] Chloride 102 96 - 110 mEq/L [facility] CO2 27 24 - 32 mEq/L [facility] Total Alkaline Phosphatase 103 38 - 126 U/L [facility] Bilirubin, Total <0.5 0.2 - 1.3 mg/dl [facility] AST 25 15 - 46 U/L [facility] ALT 50 9 - 52 U/L [facility] Albumin 4.2 3.4 - 4.9 g/dl [facility] Total Protein 6.9 6.5 - 8.3 g/dl [facility] Creatinine 0.75 0.7 - 1.5 mg/dl [facility] GFR, Calculated >60 ml/min/1.7 3m2 [facility] BUN 17 10 - 26 mg/dl [facility] Calcium 9.1 8.5 - 10.5 mg/dl [facility] Calculated Calcium 9.3 8.5 - 10.5 mg/dl [facility] Glucose, Serum 123(H) 70 - 100 mg/dl [facility] Fasting? Yes [facility] 09/08/2010 9:30 EST 09/08/2010 19:21 EST Jim Chadwick MD CHEMISTRY & BLOOD GA S ORDERABLES [facility] [address] [place] [address] * HEMAGRAM (09/08/2010 9:30 EST) WBC 8.00 4.0 - 12.4 K/cmm [facility] RBC 4.47 3.86 - 5.04 M/cmm [facility] Hemoglobin 13.2 11.6 - 15.2 gm/dl [facility] HCT 38.7 34.9 - 44.4 % [facility] MCV 87 81 - 98 fl [facility] MCH 29.5 26.7 - 33.3 pg [facility] MCHC 34.0 32.1 - 35.9 gm/dl [facility] PLT 288 141 - 320 K/cmm [facility] RDW-CV 14.1 11.7 - 14.6 % [facility] 09/08/2010 9:30 EST 09/08/2010 19:21 EST Jim Chadwick MD HEMATOLOGY & PF4 ORD ERABLES Performing Organization Address [facility] Co de Phone Number [facility] [address] [place] [address] * CA 125 (09/08/2010 9:30 EST) CA 125 32 0 - 35 U/ml [facility] Comment: ??Serum CA125 concentrations should not be interpreted as absolute evidence for the presence or absence of malignant disease. ?? Assayed utilizing [employer] technology. Values obtained by using different assay methods cannot be used interchangeably. 09/08/2010 9:30 EST 09/08/2010 19:21 EST Jim Chadwick MD CHEMISTRY & BLOOD GA S ORDERABLES Performing Organization Address [facility] Co de Phone Number [facility] [address] [place] [address] documented in this encounter Visit Diagnoses Not on filedocumented in this encounter Care Teams Automatic Fancy Machine Operator Relationship Specialty Start Date End Date Jim Chadwick MD [address] [place] [address] PCP - General 07/26/10 01/30/18 documented as of this encounter
--- OUTSIDE RECORDS SUMMARY | 2024-02-17 09:35 | XMS_ITS | Encounter Summary ---
Author Organization [facility] Address [address] [place] [address] Care Team Providers Care Store Hand Name Role Phone Terese Fischer MANAGER OF DISASTER RECOVERY Primary Care Provider Encounter Details Date Type Department Care Team (Late st Contact Info) Description 01/27/2023 Lab Requisition [facility] Pathology & Laboratory Medicine - [address] [address] Outr Resulting Lab, Provider Social History Tobacco [...] Procedure Name Priority Date/Time Associated Diagnosis Comments LYME AB Routine 01/26/2023 15:55 EDT documented in this encounter Results * LYME AB (01/26/2023 15:55 EDT) Lyme Ab Negative Negative 01/29/2023 11:53 EDT [facility] Blood VENOUS BLOOD / Unknown 01/26/2023 15:55 EDT 01/27/2023 21:28 EDT Provider Outr Resulting Lab IMMUNOLOGY A ND SEROLOGY ORDERABLES [facility] [address] [place] [address] documented in this encounter Visit Diagnoses Not on filedocumented in this encounter Care Teams Store Hand Relationship Specialty Start Date End Date Terese Fischer NP [address] [place] [phone] PCP - General 12/19/18 documented as of this encounter
--- OUTSIDE RECORDS SUMMARY | 2024-02-17 09:35 | XMS_ITS | Encounter Summary ---
Author Organization [facility] Address [address] [place] [address] Care Team Providers Care Sound Art Instructor Name Role Phone Terese Fischer DOUBLE BOTTOM DRIVER Primary Care Provider [phone] Encounter Details Date Type Department Care Team (Late st Contact Info) Description 12/21/2020 Lab Requisition [facility] Pathology & Laboratory Medicine - [address] [address] Outr Resulting Lab, Provider Social History Tobacco [...] Procedure Name Priority Date/Time Associated Diagnosis Comments ZZCOVID-19 TEST [facility] PCR Today 12/20/2020 0:15 EDT COVID-19 TESTING Routine 12/20/2020 0:15 EDT documented in this encounter Results * COVID-19 TEST [facility] PCR (12/20/2020 0:15 EDT) Swab ENTIRE NASOPHARYNX / Unknown 12/20/2020 0:15 EDT 12/21/2020 16:10 EDT Provider Outr Resulting Lab MICROBIOLOGY - GENERAL ORDERABLES [facility] [address] [place] [address] * COVID-19 TESTING (12/20/2020 0:15 EDT) COVID-19 rt-PCR Result Negative Negative 12/22/2020 14:[address] [facility] Comment: This test has not been FDA cleared or approved. This test has been authorized by FDA under an EUA for use by authorized laboratories. This test has been authorized only for detection of nucleic acid from 2019-nCoV, not for any other viruses or pathogens. This test is only authorized for the duration of the declaration that circumstances exist justifying the authorization of emergency use of in vitro diagnostic tests for detection and/or diagnosis of 2019-nCoV under section 564(b)(1) of Act, 21 U.S.C ?? 360bbb-3(b) (1), unless the authorization is terminated or revoked sooner. Negative results do not preclude 2019-nCoV infection and should not be used as the sole basis for treatment or other patient management decisions. Negative results must be combined with clinical observations, patient history, and epidemiological information. This test was developed and its performance characteristics determined by [facility]. It has not been cleared or approved by the US Food and Drug Administration. FDA does not require this test to go through premarket FDA review. This test is used for clinical purposes. It should not be regarded as investigational or for research. This laboratory is certified under the Clinical Laboratory Improvement Amendments (CLIA) as qualified to perform high complexity clinical laboratory testing. This test is based on the [facility] COVID-19 Emergency Use Authorization (EUA) assay, with minor modification as defined by the FDA Performed on the [employer] 7 Flex RT-PCR System. Performing Lab [facility] Lab 12/22/2020 14:[address] [facility] Swab 12/20/2020 0:15 EDT 12/21/2020 16:10 EDT Provider Outr Resulting Lab MICROBIOLOGY - GENERAL ORDERABLES Performing Organization Address City/[facility]/ZIP Co de Phone Number [facility] [address] [place] [address] documented in this encounter Visit Diagnoses Not on filedocumented in this encounter Care Teams Sound Art Instructor Relationship Specialty Start Date End Date Terese Fischer, DOUBLE BOTTOM DRIVER [address] [place] [id number] PCP - General 12/19/18 documented as of this encounter
--- OUTSIDE RECORDS SUMMARY | 2024-02-17 09:35 | XMS_ITS | Encounter Summary ---
Author Organization [facility] Address [facility] [place] [address] Care Team Providers Care Cable Tower Operator Name Role Phone Carl Garvey DNP Primary Care Provider Reason for Visit * Reason Comments Urinary Frequency ? UTI or yeast Encounter Details Date Type Department Care Team (Late st Contact Info) Description 02/07/2022 7:58 AM EDT - 02/07/2022 10:15 AM EDT Emergency Emergency Services at [address] [phone] Carter Murphy MD [facility] [place] [address] Hyperglycemia; Hypertension, unspecified type; Vaginal pain Discharge Disposition: Home Social History Tobacco Use Types Packs/Day Years Used Date Smoking Tobacco: Never Smokeless Tobacco: Never Alcohol Use Standard Drinks/Week Comments No 0 (1 standard drink = 0.6 oz pur e alcohol) Sex and Gender Information Value Date Recorded Sex Assigned at Not on file Gender Identity Not on file Sexual Orientation Not on file documented as of this encounter Last Filed Vital Signs Vital Sign Reading Time Taken Comments Blood Pressure 221/117 02/07/2022 10:02 AM EDT Pulse 93 02/07/2022 8:01 AM EDT Temperature - - Respiratory Rate 17 02/07/2022 8:01 AM EDT Oxygen Saturation 91% 02/07/2022 8:01 AM EDT Inhaled Oxygen Concentration - - Weight 88.5 kg (195 lb) 02/07/2022 8:01 AM EDT Height 162.6 cm (5' 4) 02/07/2022 8:01 AM EDT Body Mass Index 33.47 02/07/2022 8:01 AM EDT documented in this encounter Discharge Instructions * Discharge Instructions* Krysten Frey - 02/07/2022 8:40 AM EDT You were seen in the emergency room due to urinary frequency at home. Your urine did not show signsof a UTI however did show significant glucose .You are being prescribed 1 dose of Diflucan to treata presumed yeast infection and will be contacted tomorrow if your yeast culture is positive. Your blood pressure and glucose were very high while in the emergency room. This is not an emergency but needs to be urgently addressed by your primary care physician. You have been re-prescribed metformin and lisinopril to restart and should call your primary care physician right away to schedule an appointment and discuss restarting the rest of your medications. You received a first dose of lisinopril in the emergency room. Please restart your insulin as prescribed. Your prescriptions have been sent to [facility] in [place]. Please pick them up today and start taking as prescribed. If you experience any new or worsening symptoms including difficulty breathing, chest pain, fever, chills, confusion, loss of vision, numbness, weakness or any other concerning symptoms please seek medical care immediately. documented in this encounter Medications at Time of Discharge Medication Sig Dispensed Refills Start Date End Date lisinopriL (Zestril) 20 mg Tablet Take 0.5 tablets by mouth daily. 30 tablet 02/07/2022 metFORMIN (FORTAMET) 500 mg Tablet Extended Rel 24 hr Take 1 tablet by mouth 2 times daily (with meals). 60 tablet 3 02/07/2022 benzonatate (TESSALON) 100 mg Capsule Take 1 capsule by mouth 3 times daily as needed for Cough. 30 tablet 0 04/03/2015 ibuprofen (ADVIL;MOTRIN) 600 mg Tablet Take 1 tablet by mouth every 6 hours as needed for Pain. 30 tablet 0 01/24/2015 meclizine (ANTIVERT) 25 mg tablet Take 1 tablet by mouth 3 times daily as needed for Dizziness. 30 tablet 0 08/03/2013 lisinopril (PRINIVIL;ZESTRIL) 20 mg tablet Take 20 mg by mouth daily. atenolol (TENORMIN) 25 mg tablet Take 25 mg by mouth daily. fluconazole (Diflucan) 150 mg Tablet Take 1 tablet by mouth once for 1 dose. 1 tablet 02/07/2022 02/07/2022 documented as of this encounter Progress Notes * Jose Roberto Mayorga MD - 02/07/2022 10:15 AM EDT Rx'd fluconazole documented in this encounter ED Notes * Eufemia Gunn RN - 02/07/2022 10:10 AM EDT Discharge instructions reviewed, pt given GOOD RX card to help reduce cost of her prescriptions. All questions answered, pt d/c'd via ambulatory. * Carter Murphy MD - 02/07/2022 9:43 AM EDT ED Attending Note 57 yo F w/ hx HTN, DM non compliant w/ meds p/w urinary frequency. UA w/ elevated glucose, not c/w UTI. Pt hyperglycemic. Hypertensive. Pelvic exam performed by resident not c/w infectious. Exam w/ heart RRR, clear b/l breath sounds, abdomen soft / non-tender, AO3, no focal neuro deficits. Likely urinary frequency 2/2 hyperglycemia. Will restart pt's antihypertensive meds and metformin. Pt statesPCP f/u tomorrow. Return precautions. Did this case involve critical care? No Carter Murphy MD 02/07/22 0944 * Krysten Frey - 02/07/2022 8:00 AM EDT Chief Complaint Patient presents with ??? Urinary Frequency ? UTI or yeast HPI This is a 57 y/o woman w/ PMH HTN, migraines presenting with urinary frequency and dysuria. She reports 3 weeks of vaginal itching, burning, and several weeks of lower abdominal discomfort and urinary frequency. She was seen one week ago at [facility] and was told she had a yeast infection, took 1 dose diflucan but did not note any significant improvement. She denies any concern for STDs. On review of systems she also notes intermittent headaches without visual changes, weakness or numbness. Also endorses acid reflux that sometimes causes her to vomit but not daily. She has not taken any of her medications for a month because she lost them. Home meds were atenolol, lisinopril/HCTZ, metformin, metoprolol. She plans to see her PCP tomorrow to discuss restarting. She took 27 units of basaglar insulin last night which was her prior dose, but has not taken it otherwise in a month. Patient Active Problem List Diagnosis Code ??? HTN (hypertension) I10 ??? Migraine headache G43.909 Allergies Allergen Reactions ??? Sulfa (Sulfonamide Antibiotics) Rash No family history on file. No past surgical history on file. Review of Systems Constitutional: Positive for fatigue. Negative for appetite change, chills and fever. HENT: Negative for rhinorrhea and sore throat. Gastrointestinal: Positive for abdominal pain, nausea and vomiting. Negative for blood in stool. Endocrine: Positive for polydipsia and polyuria. Genitourinary: Positive for frequency, pelvic pain, urgency and vaginal pain. Negative for dysuria. Musculoskeletal: Negative. Skin: Negative. Neurological: Positive for headaches. Psychiatric/Behavioral: Negative. Physical Exam Constitutional: Appearance: She is not ill-appearing or diaphoretic. HENT: Head: Normocephalic. Eyes: Conjunctiva/sclera: Conjunctivae normal. Cardiovascular: Rate and Rhythm: Normal rate. Pulmonary: Effort: Pulmonary effort is normal. Abdominal: General: There is no distension. Palpations: Abdomen is soft. Tenderness: There is no abdominal tenderness. There is no guarding. Genitourinary: General: Normal vulva. Vagina: No vaginal discharge. Comments: Normal-appearing pink vaginal mucosa. No significant discharge. No lesions or rashes Musculoskeletal: Cervical back: Neck supple. No rigidity. Right lower leg: No edema. Left lower leg: No edema. Skin: General: Skin is warm and dry. Findings: No rash. Neurological: General: No focal deficit present. Mental Status: She is alert and oriented to person, place, and time. Cranial Nerves: No cranial nerve deficit. Motor: No weakness. Gait: Gait normal. MDM This is a 57 y/o woman w/ PMH HTN, migraines presenting with urinary frequency and vulvar pain after stopping all of her medications a few weeks ago. She is well-appearing on arrival with vital signssignificant for hypertension to 208/115. She has had some recent headaches, but has no neurodeficits currently and no chest pain visual changes or abdominal tenderness to raise concern for acute end organ damage.regarding urinary frequency and labial discomfort, considered UTI, BV, yeast infection amongst other possible etiologies. With significant glucosuria I suspect her frequency is related toher uncontrolled hyperglycemia Pelvic exam did not show any abnormal discharge or rash; but UA showed small amount of yeast, so will give 1 dose of Diflucan and further management would depend on yeast culture results. For hyperglycemia (currently well appearing with no clinical signs of DKA or HHNS), I counseled her to restart her home insulin and also re-prescribed her lisinopril and metformin. Gave first dose of lisinopril while in the emergency department. She remains significantly hypertensive but without signs of endorgan involvement and is well-appearing. She understands the plan to call her PCP right away to discuss restarting her medications. Discussed return precautions in detail and she understands the importance of returning for any new or worsening symptoms. Discharged in good condition. 1. Hyperglycemia 2. Hypertension, unspecified type 3. Vaginal pain Krysten Frey MD Resident 02/07/22 1024 Associated attestation - Carter Murphy MD - 02/07/2022 10:33 AM EDT ED ATTENDING ATTESTATION NOTE The patient was seen in conjunction with the resident physician. I have independently performed thekey portions of the history and physical exam. I have reviewed the nursing notes, vital signs, and all diagnostic studies personally including labs, imaging studies and EKGs. I have discussed the details of the case with the resident and agree with the assessment and plan as described in the resident note unless noted otherwise. documented in this encounter Miscellaneous Notes * ED Triage - Eufemia Gunn RN - 02/07/2022 8:02 AM EDT Yeast infection a week ago, treated with monistat. Feel that yeast infection still hasnt fully goneaway. Now experiencing pain in abdomen, urinary frequency. Denies blood in urine or painful urination. HPI (Adult) Stated Reason for Visit: frequency, urgency, dysuria History Obtained From: patient Duration (Days): 4 Medications/Treatments Prior to Arrival: medication Additional Details: monistat documented in this encounter Plan of Treatment Not on file documented as of this encounter Procedures Procedure Name Priority Date/Time Associated Diagnosis Comments HC FUNGUS CULTURE, MISC SOURCE STAT 02/07/2022 8:27 AM EDT POCT GLUCOSE Routine 02/07/2022 8:23 AM EDT URINALYSIS MICROSCOPIC EXAM STAT 02/07/2022 7:58 AM EDT URINALYSIS WITH REFLEX CULTURE STAT 02/07/2022 7:58 AM EDT documented in this encounter Results * (ABNORMAL) Yeast culture Vaginal (02/07/2022 8:27 AM EDT) Yeast Culture Rare Kaye albicans(A) [facility] Organism Kaye albicans(A) [facility] Vaginal 02/07/2022 8:27 AM EDT 02/07/2022 11:58 AM EDT Narrative Resulting Agency Comment Spec In Lab Carter Murphy MD MICROBIOLOGY - GENER AL ORDERABLES [facility] [place] [address] * (ABNORMAL) POCT Glucose (02/07/2022 8:23 AM EDT) [facility] POC Glucose 428(H) 65 - 199 mg/dL LABORATORY Comment: Supplemental ranges: <140 mg/dL before meals <180 mg/dL all other times of the day Blood 02/07/2022 8:23 AM EDT 02/07/2022 8:23 AM EDT Carter Murphy MD POINT OF CARE TEST O RDERABLES Performing Organization Address [facility] de Phone Number LABORATORY [address] [place] [address] * (ABNORMAL) Urinalysis Microscopic Exam (02/07/2022 7:58 AM EDT) [facility] RBC UA 6(H) 0 - 4 /HPF LABORATORY WBC UA 2 0 - 5 /HPF LABORATORY Bacteria UA Few(A) None /HPF [facility] Yeast [place]ang UA Few(A) None /HPF [facility] Squam Epith UA 4 <=4 /HPF LABORATORY Trans Epith UA <1 <=1 /HPF LABORATORY Clean Catch Urine 02/07/2022 7:58 AM EDT 02/07/2022 8:15 AM EDT Narrative Resulting Agency Comment Spec In Lab Krysten Frey MD URINE ORDERABLES Performing Organization Address [facility] de Phone Number LABORATORY [address] [place] [address] * (ABNORMAL) Urinalysis with reflex Culture (02/07/2022 7:58 AM EDT) [facility] Glucose UA >=500(Criti rachael) Negative mg/dL [facility] Comment: Urinalysis result NOT critical without a combination of Glucose greater than or equal to 500mg/dl AND Ketones greater than or equal to 80mg/dl. 02/07/22 08:18 [facility] Protein UA Negative Negative [facility] Bilirubin UA Negative Negative [facility] Comment: Clinical correlation required for positive Urine Bilirubin results as false positive may occur with some drugs and drug related products. If a false positive is suspected a serum total bilirubin should be considered if clinically indicated. Urobilinogen UA Normal Normal mg/dL LABORATORY pH UA 5.0 5.0 - 8.0 LABORATORY Blood UA Trace(A) Negative LABORATORY Ketones UA Negative Negative LABORATORY Nitrite UA Negative Negative LABORATORY Leukocytes UA Negative Negative LABORATORY Appearance UA Clear Clear LABORATORY Spec [place] UA 1.010 1.006 - 1.030 LABORATORY Color UA Yellow Yellow LABORATORY Culture Reflexed No LABORATORY Clean Catch Urine 02/07/2022 7:58 AM EDT 02/07/2022 8:15 AM EDT Narrative Resulting Agency Comment Spec In Lab Carter Murphy MD URINE ORDERABLES Performing Organization Address City/State/[facility] Co de Phone Number LABORATORY [address] [place] [address] documented in this encounter Visit Diagnoses Diagnosis Hyperglycemia Other abnormal glucose Hypertension, unspecified type Vaginal pain Unspecified symptom associated with female genital organs documented in this encounter Administered Medications Inactive Administered Medications - up to 3 most recent administrations Medication Order MAR Action Action Date Dose Rate Site lisinopriL (Zestril) tablet 10 mg 10 mg, Oral, ONCE, 1 dose, On Sun02/07/22 at 0910, STAT Given 02/07/2022 9:13 AM EDT 10 mg documented in this encounter Active and Recently Administered Medications Times are shown in EDT. Scheduled Medication Order 2022 02/06/2022 02/07/2022 lisinopriL (Zestril) tablet 10 mg (COMPLETED) 10 mg, Oral, ONCE, 1 dose, On Sun02/07/22 at 0910, STAT 0913 (Given - Provid er: Eufemia Gunn RN) documented in this encounter Care Teams Cable Tower Operator Relationship Specialty Start Date End Date Carl Garvey DNP PCP - General Family Medicine 05/03/20 documented as of this encounter
--- OUTSIDE RECORDS SUMMARY | 2024-02-17 09:35 | XMS_ITS | Encounter Summary ---
Author Organization [facility] Address [address] [place] [address] Care Team Providers Care Office Assistance Name Role Phone Unavailable Primary Care Provider Unavailabl e Encounter Details Date Type Department Care Team (Late st Contact Info) Description 01/05/2003 14:55 EDT Hospital Encounter [facility] - Other [address] [place] [address] Ad Hwang MD [address] [place] [address] Social History Tobacco Use Types Packs/Day Years [...] Procedure Name Priority Date/Time Associated Diagnosis Comments CYTOPATHOLOGY Routine 01/05/2003 0:00 EDT documented in this encounter Results * CYTOPATHOLOGY (01/05/2003 0:00 EDT) Pathology Report: CYTOPATHOLOGY REPORT Reports generated via electronic interface contain original data; however they are lacking the format of the original report. Caution should be taken when reading/interpreti ng unformatted reports. Name: ? EARL RODRIGUEZ ? Accession #: ? [id number] : ? 1965 (Age: 37) ??F ?Collect Date: ? 01/05/2003 Location: ? [facility] ? Receive Date: ? 01/06/2003 Provider: ?AD HWANG MD Copy to: ? Specimen/Source: ?ThinPrep Pap Test, Cervix/Endocervix Last Menstrual Period: ? Other: ? HPVA - HPV testing requested if ASC-US on the current ThinPrep Pap test. ? SPECIMEN ADEQUACY ? Satisfactory for Evaluation - transformation zone component present GENERAL CATEGORIZATION ? Negative for Intraepithelial Lesion or Malignancy ? Document reviewed and electronically signed by: ? JOSÉ Laura(ASCP) ? Report Date: ??01/08/2003 13:57 End of Report ALEX GEORGE 01/05/2003 01/06/2003 Ad Hwang MD PATHOLOGY ORDER [facility] [address] [place] [address] documented in this encounter Visit Diagnoses Not on filedocumented in this encounter
--- OUTSIDE RECORDS SUMMARY | 2024-02-17 09:35 | XMS_ITS | Encounter Summary ---
Author Organization [facility] Address [address] [place] [address] Care Team Providers Care Personal Injury Litigation Paralegal Name Role Phone Terese Fischer [employer]TER [employer]CH Primary Care Provider [phone] Reason for Referral * PT/OT/ST (Routine) - Specialty Report Received Specialty Diagnoses / Procedures Referred By Laurel garrett Referred To Contact Diagnoses Neck pain Bilateral arm pain Numbness and tingling Daily Scott PA-C [address] [place] [address] [place] [address] Referral ID Status Reason Start Date Expiration Date Visits Requested Visits Authorized [id number] Specialty Report Received Specialty Services Required 12/19/2018 1 1 Question Answer Reason for Request: neck pain bl arm pain w/ n/t Reason for Visit * Reason Comments Follow-up MRI Neck Pain * Consult, Test and Treat (Routine) - Closed Specialty Diagnoses / Procedures Referred By Contac t Referred To Contact Orthopedic Surgery Diagnoses Neck pain Unknown, Provider, [facility] [address] [address] Referral ID Status Reason Start Date Expiration Date Visits Re quested Visits Authorized [id number] Closed 1 1 Encounter Details Date Type Department Care Team (Late st Contact Info) Description 12/19/2018 9:00 EDT Office Visit [facility] - [address] [address] Daily Scott PA-C [address] [facility] [place] [address] Neck pain (Primary Dx); Bilateral arm pain; Numbness and tingling Discharge Disposition: Auto Discharge Social History Tobacco Use Types Packs/Day Years Used Date Smoking Tobacco: Never Smokeless Tobacco: Never Alcohol Use Standard Drinks/Week Comments No 0 (1 standard drink = 0.6 oz pur e alcohol) Sex and Gender Information Value Date Recorded Sex Assigned at Not on file Gender Identity Not on file Sexual Orientation Not on file documented as of this encounter Discharge Diagnoses Diagnosis M48.02 Spinal stenosis, cervical region-M48.02[ICD-10-CM] M43.12 Spondylolisthesis, cervical region-M43.12[ICD-10-CM] documented in this encounter Discharge Disposition Disposition Code Departure Means Destination Auto Discharge documented in this encounter Progress Notes * Daily Puri PA - 12/19/2018 0900 EDT Martha Rodriguez is being seen as a consultation from Dr. Hdz. Chief Complaint Patient presents with ??? Follow-up MRI ??? Neck Pain The primary encounter diagnosis was Neck pain. Diagnoses of Bilateral arm pain and Numbness and tingling were also pertinent to this visit. SUBJECTIVE: HPI 53-year-old female here today with acute onset 50% neck pain and 50% bilateral arm pain and paresthesias R>L (at onset L>R) which courses to the posterior shoulders, shoulder blades occasionally into the anterior lateral arm, dorsal and ventral forearm and into all of her fingers 2 to weeks with sudden atraumatic onset. Patient describes pain as dull and states symptoms are constant, wax and wane throughout the day. At onset left arm was worse in the right, today right arm is worse than the left. Otherwise, intensity of symptoms have remained unchanged since onset. Patient states it sometimes feels like her arms are not attached to her body. Denies bowel or bladder dysfunction. She d enies feeling clumsy on her feet. Denies falling. Endorses occasional difficulty gripping objects with her hands. Alleviating positions: None. Aggravating positions: Forward flexion, neck extension, lifting, pulling. Pain today 5/10, worst is 9/10. Patient states that at onset she thought she was having a stroke and therefore went to the ED in [facility] where, per patient work-up ruled out stroke. Records have been requested. Cervical MRIdemonstrates moderate right paracentral disc herniation at C5-C6 with perhaps mild central canal stenosis. No denzel cord compression or cord signal change. Conservative treatment: Physical therapy: None. Heat provides some temporary relief. Ibuprofen provides some temporary relief. No cervical injections. Social history: Non-smoker. 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 She is joined today by her and daughter. Patient Active Problem List Diagnosis ??? 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 Hypertension Past Surgical History: Procedure Laterality Date ??? CARDIAC SURGERY Social History Tobacco Use ??? Smoking status: Never Smoker ??? Smokeless tobacco: Never Used Substance Use Topics ??? Alcohol use: No Family History Problem Relation Age of Onset ??? Diabetes Mother ??? Heart Disease Mother ??? Hypertension Mother ??? Stroke Mother ??? Cancer Sister Current Outpatient Medications Medication Sig Dispense Refill ??? ATENOLOL ORAL Take 40 mg by mouth daily. ??? cephALEXin (KEFLEX) 500 mg capsule Take 500 mg by mouth 4 times daily. ??? clobetasol (TEMOVATE) 0.05 % cream Use once a day and rub in well until rash is gone (Patient not taking: Reported on 12/19/2018) 60 g 1 ??? hydrOXYzine (ATARAX) 50 mg tablet Take 50 mg by mouth as needed. ??? lisinopril (PRINIVIL, ZESTRIL) 40 mg tablet Take 80 mg by mouth daily. ??? metFORMIN (GLUCOPHAGE) 500 mg tablet Take 500 mg by mouth 2 times daily. ??? predniSONE (DELTASONE) 20 mg tablet Take 20 mg by mouth as needed. ??? triamcinolone (KENALOG) 0.1 % ointment Apply and rub in well to the less itchy areas (Patient not taking: Reported on 12/19/2018) 60 g 0 No current facility-administered medications for this visit. No Known Allergies Review of Systems Constitutional: Positive for activity change. Eyes: Negative for visual disturbance. Respiratory: Negative for shortness of breath. Cardiovascular: Negative for chest pain. Gastrointestinal: Negative for constipation. Genitourinary: Negative for difficulty urinating. Musculoskeletal: Positive for back pain. Neurological: Positive for numbness and headaches. Psychiatric/Behavioral: Negative for dysphoric mood. The patient is not nervous/anxious. Physical Exam Constitutional: She appears well-developed. Eyes: EOM are normal. Cardiovascular: Normal rate. Pulmonary/Chest: Effort normal. Musculoskeletal: She exhibits tenderness. Neurological: She is alert. Skin: Skin is dry. Psychiatric: She has a normal mood and affect. Ortho Exam Neurologic Exam Cranial Nerves CN III, IV, Extraocular motions are normal. OBJECTIVE: Gait normal. Tandem: Negative. Romberg negative static and dynamic. TTP of bilateral upper trapezius. Cervical range of motion: Reduced cervical flexion with mild discomfort. Strength 5/5 deltoids, biceps, triceps, wrist extension, wrist flexion international logistics manager, intrinsics bilaterally. Sensation to light touch touch reduced along left lateral shoulder, otherwise intact throughout upper extremities bilaterally. Reflexes biceps: Absent on the right, 2+ in the left. Brachial radialis: 2+ bilaterally. Triceps: Absent on the right, 1+ on the left. Ankle clonus: Negative. Ester's: Negative. Radial pulse: +2 bilaterally. Spurling's: Negative bilaterally. Phalen's: Positive on the right for right shoulder pain, UNC: Positive bilaterally for posterior shoulder pain. Tinel's: Negative bilaterally. Imaging: Today, 12/19/2018, I ordered plain radiographs and independently read the following: Cervical plain radiographs, AP/LAT/flex/ex, 12/19/2018: Loss of cervical lordosis. Mild loss of discheight at C5-C6, otherwise well-maintained throughout cervical spine. No listhesis noted. Mild facet arthropathy and cervical spine. Cervical MRI without contrast, 11/29/2018: Moderate right paracentral disc herniation at C5-C6 with perhaps mild foraminal narrowing and mild central canal stenosis. No denzel cord compression or cord signal change. ASSESSMENT: 53-year-old female with neck and bilateral arm symptoms R>L involving multiple dermatomes which is not clearly radicular in nature. Cervical MRI demonstrates only mild right C6 nerve root impingement, therefore not concordant with patient's symptoms. We discussed multiple options including bilateral upper extremity EMG, physical therapy, medical management, injection therapy, surgical consult.At this point, Martha would like to proceed with PT as she has not trialed this yet. Additionally, she would like to get a bilateral upper extremity EMG to evaluate for peripheral neuropathy. She does work as a cashier self service [employer] and is engaged in frequent repetitive motion. Physical exam is also suggestive of peripheral neuropathy. PLAN: 1. Begin physical therapy with progressive home exercise program PRN. 2. Proceed with bilateral upper extremity EMG to rule out nerve root compression versus peripheral source. 3. Follow-up with me 1 week later. 4. Based on results of EMG, consider NELSY at C7-T1 versus referral to upper extremity for peripheralneuropathy. 5. Activities as tolerated. 6. NSAIDs, APAP, heat, ice as needed. 7. Consider gabapentin. Dr. Bowen was available for consultation, however consult was not required. All or part of this document has been prepared with speech recognition software and/or keyboard data modeling architect techniques. Minor irregularities may be present. Other Orders Placed This Visit Procedures ??? Amb Consult/Follow Up Physical Therapy documented in this encounter Plan of Treatment Scheduled Referrals Name Type Priority Associated Diagnoses Orde r Schedule AMB CONS/FOLLOW UP PHYSICAL THERAPY Outpatient Referral Routine Neck pain Bilateral Arm Pain Numbness and tingling Ordered: 12/19/2018 documented as of this encounter Visit Diagnoses Diagnosis Neck pain- Primary Cervicalgia Bilateral arm pain Pain in limb Numbness and tingling Disturbance of skin sensation documented in this encounter Historical Medications * This list may reflect changes made after this encounter. Medication Sig Dispensed Refills Start Date End Date metFORMIN (GLUCOPHAGE) 500 mg tablet Take 500 mg by mouth 2 times daily. added in this encounter Care Teams Personal Injury Litigation Paralegal Relationship Specialty Start Date End Date Terese Fischer NP [address] [place] [phone] PCP - General 12/19/18 documented as of this encounter
--- OUTSIDE RECORDS SUMMARY | 2024-02-17 09:35 | XMS_ITS | Encounter Summary ---
Author Organization [facility] [place] [address] Care Team Providers Care Sales Superintendent Name Role Phone Carl Garvey DNP Primary Care Provider [phone] Encounter Details Date Type Department Care Team (Late st Contact Info) Description 07/15/2023 10:35 AM EST Ancillary [place] [address] Romulo Kamara MD [facility] [place] [address] Social History Tobacco Use Types Packs/Day Years [...] Procedure Name Priority Date/Time Associated Diagnosis Comments FILM LIBRARY - STORAGE ONLY CT NECK Routine 07/15/2023 10:33 AM EST documented in this encounter Results * Film Library- Storage Only CT Neck (07/15/2023 10:33 AM EST) Narrative [facility] - 07/15/2023 10:33 AM EST This exam is auto-finalizing. It's purpose is for storage only. Romulo Kamara MD IMG FILM LIBRARY ORD ERABLES [facility] [place], [place] documented in this encounter Visit Diagnoses Not on filedocumented in this encounter Care Teams Sales Superintendent Relationship Specialty Start Date End Date Carl Garvey DNP PCP - General Family Medicine 05/03/20 documented as of this encounter
--- OUTSIDE RECORDS SUMMARY | 2024-02-17 09:35 | XMS_ITS | Encounter Summary ---
Author Organization [facility] Address [address] [place] [address] Care Team Providers Care Director Security Management Name Role Phone None, Provider Primary Care Provider Unavailabl e Reason for Visit * Reason Comments Genetic Evaluation Encounter Details Date Type Department Care Team (Late st Contact Info) Description 02/12/2018 13:30 EDT Office Visit [facility] Hematology & Oncology - [facility] [address], [place] [address] Unknown, Provider, Rae Marx, MS [address] [place], [place] [phone] Encounter for nonprocreative genetic counseling (Primary Dx); Family history of ovarian cancer; Family history of BRCA1 gene positive Discharge Disposition: Auto Discharge Social History Tobacco Use Types Packs/Day Years Used Date Smoking Tobacco: Never Alcohol Use Standard Drinks/Week Comments No 0 (1 standard drink = 0.6 oz pur e alcohol) Sex and Gender Information Value Date Recorded Sex Assigned at Not on file Gender Identity Not on file Sexual Orientation Not on file documented as of this encounter Discharge Diagnoses Diagnosis Z84.81 Family history of carrier of genetic disease-Z84.81[ICD-10-CM] Z80.41 Family history of malignant neoplasm of ovary-Z80.41[ICD-10-CM] Z71.83 Encounter for nonprocreative genetic counseling-Z71.83[ICD-10-CM] documented in this encounter Discharge Disposition Disposition Code Departure Means Destination Auto Discharge documented in this encounter Progress Notes * Rae Marx - 02/12/2018 1330 EDT Martha was seen along with her sister on 02/12/18. Her sister tested positive for a BRCA1 mutation and previously had ovarian cancer. Their mother and maternal grandmother also had ovarian cancer. Martha understands she has a 50% chance of having the same BRCA1 mutation, and if she is positive would have increased risk for both breast and ovarian cancer. I discussed the risks, benefits, and limitations of this testing, and Martha ultimately chose to have her blood drawn and sent to [facility] laboratory for BRCA1 testing. I will call Martha by phone with her results. If positive, she will return to [facility] to discuss in detail. documented in this encounter Plan of Treatment Not on file documented as of this encounter Procedures Procedure Name Priority Date/Time Associated Diagnosis Comments PATHOLOGY - SCANNED 02/22/2018 20:32 EDT documented in this encounter Results * PATHOLOGY - SCANNED (02/22/2018 20:32 EDT) 02/22/2018 20:3 2 EDT Scan 2 [facility] INFO SERVICE AN D SUPPORT & PHONE RESULT documented in this encounter Visit Diagnoses Diagnosis Encounter for nonprocreative genetic counseling- Primary Family history of ovarian cancer Family history of malignant neoplasm of ovary Family history of BRCA1 gene positive Family history of genetic disease carrier documented in this encounter Care Teams Director Security Management Relationship Specialty Start Date End Date None, Provider PCP - General 01/31/18 12/18/18 documented as of this encounter
--- OUTSIDE RECORDS SUMMARY | 2024-02-17 09:35 | XMS_ITS | Encounter Summary ---
Author Organization [facility] Address [facility] [place] [address] Care Team Providers Care Hand Nailer Name Role Phone Carl Garvey DNP Primary Care Provider [phone] Encounter Details Date Type Department Care Team (Late st Contact Info) Description 07/15/2023 Notes [place] [address] Bethanie Candelaria MD [facility] [place] [address] Social History Tobacco Use Types Packs/Day Years Used Date Smoking Tobacco: Never Smokeless Tobacco: Never Alcohol Use Standard Drinks/Week Comments No 0 (1 standard drink = 0.6 oz pur e alcohol) Sex and Gender Information Value Date Recorded Sex Assigned at Not on file Gender Identity Not on file Sexual Orientation Not on file documented as of this encounter Progress Notes * Bethanie Candelaria MD - 07/15/2023 2:00 PM EST Called by Transfer Center by Dr. Lizarraga at [place] on 07/15 regarding Martha Rodriguez. Martha Rodriguez is a 58 y.o. female who presented with worsening facial swelling and a chin abscess. She recently had an I&D earlier June. She has a history of multiple abdominal and axillary abscesses. On presentation, she appeared non-toxic, no stridor or shortness of breath at this time. She has some swelling along her FOM, but this has not impeded her ability to swallow or breath at this time. No concerns for impending airway issues. No fevers per OSH provider. CT scan shows a sub 2cm superficial chin fluid collection and inflammation in the region. Impression Soft tissue abscess Submandibular infection Recommendations/Plan - Recommend needle I&D of the fluid collection and to send for cultures - IV antibiotics (culture driven) - Control of blood glucoses and diabetes ENT is available for any further questions or consultation. Of note, at the time of this phone call, there were no medicine beds available for transfer for the patient, therefore all recommendations we discussed were for the patient to continue care at [facility]. We reviewed for any clinical changes, or questions, we would be happy to re-engage and discuss how we could best help the patent with next steps. This patient was discussed with Dr. Kamara. Bethanie Candelaria MD, PGY4 07/15/23 documented in this encounter Plan of Treatment Not on file documented as of this encounter Visit Diagnoses Not on filedocumented in this encounter Care Teams Hand Nailer Relationship Specialty Start Date End Date Carl Garvey DNP PCP - General Family Medicine 05/03/20 documented as of this encounter
--- OUTSIDE RECORDS SUMMARY | 2024-02-17 09:35 | XMS_ITS | Encounter Summary ---
Author Organization [facility] Address [address] [place] [address] Care Team Providers Care Customer Quality Specialist Name Role Phone Berry Chadwick MD Primary Care Provider [phone] Reason for Visit * Reason Comments Chest Pain Onset right sided ch est pain yesterday with numbness to right hand. Denies SOB/N/V. Skin pink/warm/dry. Encounter Details Date Type Department Care Team (Late st Contact Info) Description 09/19/2010 9:39 EST - 09/19/2010 11:47 EST Emergency [facility] Emergency Department - [address] [address] Rashid Alfaro MD Emergency, MD Arpan Chest wall pain Discharge Disposition: Home or Self Care Social History Tobacco Use Types Packs/Day Years [...] Sign Reading Time Taken Comments Blood Pressure 160/91 09/19/2010 0943 EST Pulse 88 09/19/2010 0943 EST Temperature 36.7 ??C (98.1 ??F) 09/19/2010 0943 EST Respiratory Rate 16 09/19/2010 1145 EST Oxygen Saturation 99% 09/19/2010 0943 EST Inhaled Oxygen Concentration - - Weight 93 kg (205 lb) 09/19/2010 0943 EST Height - - Body Mass Index - - documented in this encounter Discharge Instructions * Discharge Instructions* Naima Alfaro MD - 09/19/2010 11:33 EST 1. Regular activity with the exception of being less active with your Right arm and not lifting heavy objects with it. 2. Please return if you have increased pain or new symptoms, like fever or vomiting. 3. Follow with your doctor if not back to normal in 3-4 days. documented in this encounter Medications at Time of Discharge Medication Sig Dispensed Refills Start Date End Date lisinopril (PRINIVIL, ZESTRIL) 40 mg tablet Take 80 mg by mouth daily. documented as of this encounter Discharge Disposition Disposition Code Departure Means Destination Comment s Home or Self Care Walk-out Home documented in this encounter Procedure Notes * Inpatient, Physician - 09/19/2010 0000 ESTAssociated Order(s): ECG REPORT - SCANNED documented in this encounter ED Notes * Rosy Haynes RN - 09/19/2010 1146 EST amb out indep * Chasidy Fan RN - 09/19/2010 1035 EST 12 Lead EKG Performed by CHASIDY FAN RN and shown to Naima Alfaro MD. * Chasidy Fan RN - 09/19/2010 1021 EST Blood drawn from IV catheter at insertion time. * Naima Alfaro MD - 09/19/2010 1003 EST DOS: 09/19/2010 Chief Complaint Patient presents with ??? Chest Pain Onset right sided chest pain yesterday with numbness to right hand. Denies SOB/N/V. Skin pink/warm/dry. The patient is a 45 y.o. female who presents today with Chest Pain HPI Comments: Patient notes she feels her right hand is occasionally going numb. The history is provided by the patient. Chest Pain This is a new problem. The current episode started 1 day ago. The onset was undetermined in nature.The problem has not changed since onset. The pain is associated with raising an arm and movement. Pain location: right lateral into shoulder. The quality of the pain is described as dull. Duration ofepisode(s) is 1 day. The symptoms are aggravated by certain positions. Pertinent negatives include no diaphoresis, no fever, no malaise/fatigue, no numbness, no claudication, no exertional chest pressure, no irregular heartbeat, no near- syncope, no orthopnea, no palpitations, no PND, no syncope, noabdominal pain, no nausea, no vomiting, no headaches, no back pain, no leg pain, no lower extremity edema, no dizziness, no weakness, no cough, no hemoptysis, no shortness of breath and no sputum production. She has tried nothing for the symptoms. Risk factors for CAD include HTN.Patient's risk factors do not include diabetes, coronary artery disease in family, hyperlipidemia or tobacco use. Review of Systems Constitutional: Negative for fever, malaise/fatigue and diaphoresis. Respiratory: Negative for cough, hemoptysis, sputum production and shortness of breath. Cardiovascular: Positive for chest pain. Negative for palpitations, orthopnea, claudication, syncope and PND. Gastrointestinal: Negative for nausea, vomiting and abdominal pain. Musculoskeletal: Negative for back pain. Neurological: Negative for dizziness, weakness, numbness and headaches. All other systems reviewed and are negative. Past Medical History Diagnosis Date ??? Hypertension History reviewed. No pertinent past surgical history. No Known Allergies History Substance Use Topics ??? Smoking status: Never Smoker ??? Smokeless tobacco: Not on file ??? Alcohol Use: No History reviewed. No pertinent family history. Vital Signs Temp: 36.7 ??C (98.1 ??F) Temp src: Oral Pulse: 88 Resp: 16 SpO2: 99 % BP: 160/91 mmHg BP Device: BP Machine Patient Position: Sitting BP Cuff Location: Right arm O2 Device: None (Room air) Physical Exam Nursing note and vitals reviewed. Constitutional: She is oriented to person, place, and time. She appears well- developed and well-nourished. No distress. HENT: Head: Normocephalic and atraumatic. Eyes: Extraocular motions are normal. Pupils are equal, round, and reactive to light. Neck: Normal range of motion. Cardiovascular: Normal rate, regular rhythm and normal heart sounds. No murmur heard. Pulmonary/Chest: Effort normal and breath sounds normal. No respiratory distress. She has no wheezes. She has no rales. She exhibits tenderness (has notable tenderness on the right chest just to the right of the sternum). Abdominal: Soft. Bowel sounds are normal. Musculoskeletal: Normal range of motion. She exhibits no edema (well-perfused right arm with strongpulses and no evidence of venous obstruction) and no tenderness. Good pulse and no evidence of venous obstruction Neurological: She is alert and oriented to person, place, and time. Normal reflexes and light sensation Skin: Skin is warm and dry. Radiology orders: CHEST PA AND LATERAL CHEST PA AND LATERAL Final result not shown here.: EKG 12-LEAD (Results Pending) Procedures ED Course: EKG is normal. Chest x-ray is normal. Labs are normal. Pain is easily reproduced by palpation of the right upper chest. Discharge Prescriptions New Prescriptions No Discharge Prescriptions for this patient MDM Number of Diagnoses or Management Options Chest wall pain: Diagnosis management comments: 5 Amount and/or Complexity of Data Reviewed Clinical lab tests: reviewed Tests in the radiology section of CPT??: reviewed Tests in the medicine section of CPT??: reviewed Discussion of test results with the performing providers: yes 1. Chest wall pain (786.52Q) PCP: BERRY CHADWICK MD 09/20/2010 7:53 documented in this encounter Miscellaneous Notes * Scanned Note-Null - Inpatient, Physician - 09/19/2010 0000 EST documented in this encounter Plan of Treatment Not on file documented as of this encounter Procedures Procedure Name Priority Date/Time Associated Diagnosis Comments ECG REPORT - SCANNED 09/22/2010 20:44 EST CHEST PA AND LATERAL STAT 09/19/2010 10:44 EST TROPONIN I STAT 09/19/2010 10:11 EST D-DIMER STAT 09/19/2010 10:11 EST EKG 12-LEAD STAT 09/19/2010 10:01 EST documented in this encounter Results * ECG REPORT - SCANNED (09/22/2010 20:44 EST) 09/22/2010 20:4 4 EST Narrative Procedure Note Inpatient, Physician - 09/19/2010 0:00 EST Physician Inpatient MD PROCEDURE/MINOR S URGICAL ORDERABLES * CHEST PA AND LATERAL (09/19/2010 10:44 EST) Anatomical Region Laterality Modality Other 09/19/2010 10:4 4 EST 09/19/2010 10:50 EST Narrative 09/19/2010 10:50 EST CHEST PA AND LAT ??Sep 19, 2010 10:44:00 AM Signs and Symptoms/Comments: ?? CHEST PAIN Comparisons: none Findings: The lungs are clear and there is no evidence of pleural disease. The cardiac silhouette and pulmonary vascularity are normal. The skeleton is unremarkable for age. Impression: No significant abnormality Procedure Note 09/19/2010 CHEST PA AND LAT Sep 19, 2010 10:44:00 AM Signs and Symptoms/Comments: CHEST PAIN Comparisons: none Findings: The lungs are clear and there is no evidence of pleural disease. The cardiac silhouette and pulmonary vascularity are normal. The skeleton is unremarkable for age. Impression: No significant abnormality Rashid Alfaro MD IMG DIAGNOSTIC IM AGING ORDERABLES * TROPONIN I (09/19/2010 10:11 EST) Troponin I pre 2011 <0.05 <0.81 ng/ml [facility] Comment: Reference Range: Normal: ??Less than 0.05 Indeterminate: ??0.05-0.80 Positive: ?? Greater than 0.80 Blood specimen (specimen) 09/19/2010 10:11 EST 09/19/2010 10:24 EST Rashid Alfaro MD CHEMISTRY & BLOOD GAS ORDERABLES Performing Organization Address City/[facility] Co de Phone Number [facility] [address] [place] [address] * D-DIMER (09/19/2010 10:11 EST) D-Dimer <200 <230 ng/mL [facility] Comment:CUTOFF VALUE FOR THE EXCLUSION OF DVT and PE: 230 ng/mL Blood specimen (specimen) 09/19/2010 10:11 EST 09/19/2010 10:24 EST Rashid Alfaro MD HEMATOLOGY & PF4 ORDERABLES Performing Organization Address [facility] de Phone Number [facility] [address] [place] [address] documented in this encounter Visit Diagnoses Diagnosis Chest wall pain Painful respiration documented in this encounter Historical Medications * This list may reflect changes made after this encounter. Medication Sig Dispensed Refills Start Date End Date lisinopril (PRINIVIL, ZESTRIL) 40 mg tablet Take 80 mg by mouth daily. added in this encounter Orders EKG Orders Without Results Count Last Ordered D ate First Ordered Date EKG 12-LEAD 1 09/19/2010 documented in this encounter Care Teams Customer Quality Specialist Relationship Specialty Start Date End Date Berry Chadwick MD [address] [place] [address] PCP - General 07/26/10 01/30/18 documented as of this encounter
--- OUTSIDE RECORDS SUMMARY | 2024-02-17 09:35 | XMS_ITS | Encounter Summary ---
Author Organization [facility] Address [address] [place] [address] Care Team Providers Care Press Operator [employer] Name Role Phone Berry Chadwick MD Primary Care Provider [phone] Reason for Visit * Reason Comments Chest Pain Pt arrives via EMS a fter developing increasing chest pain at work. Pt also c/o SOB. Pt states that this has been going on for 4 days and saw her PCP yesterday nad was told that they would follow up next week. Pt had 325mg of ASA and 0.4 mg Nitro SL en route. Pt states chest pain continues. Face flushed. Pt A&Ox3. No resp distress noted. Pt speaking in full sentences. Encounter Details Date Type Department Care Team (Late st Contact Info) Description 09/21/2010 20:18 EST - 09/22/2010 0:04 EST Emergency [facility] Emergency Department - [address] [id number] Heriberto Morrison MD [address] [place] [address], [address] [place] [phone] Emergency, MD Arpan Chest pain Discharge Disposition: Home or Self Care [...] Reading Time Taken Comments Blood Pressure 114/71 09/21/2010 2345 EST Pulse 124 09/21/20102036 EST Temperature 37.3 ??C (99.1 ??F) 09/21/20102036 EST Respiratory Rate 16 09/21/20102036 EST Oxygen Saturation 93% 09/21/2010 2345 EST Inhaled Oxygen Concentration - - Weight 91.2 kg (201 lb) 09/21/20102036 EST Height 167.6 cm (5' 6) 09/21/20102036 EST Body Mass Index 32.44 09/21/20102036 EST documented in this encounter Discharge Instructions * Discharge Instructions* Heriberto Morrison IV, MD - 09/21/2010 23:52 EST You will be contacted by the cardiology service to arrange an outpatient stress test. Discuss your symptoms with your primary care provider. Try an antacid; if your symptoms resolve, consider follow up with a radiologic technician. documented in this encounter Medications at Time of Discharge Medication Sig Dispensed Refills Start Date End Date lisinopril (PRINIVIL, ZESTRIL) 40 mg tablet Take 80 mg by mouth daily. documented as of this encounter Discharge Disposition Disposition Code Departure Means Destination Home or Self Care Car Home documented in this encounter Procedure Notes * Inpatient, Physician - 09/21/2010 0000 ESTAssociated Order(s): ECG REPORT - SCANNED documented in this encounter ED Notes * Heriberto Morrison IV, MD - 09/30/20102123 EST DOS: 09/21/2010 Chief Complaint Patient presents with ??? Chest Pain Pt arrives via EMS after developing increasing chest pain at work. Pt also c/o SOB. Pt states that this has been going on for 4 days and saw her PCP yesterday nad was told that they would follow up next week. Pt had 325mg of ASA and 0.4 mg Nitro SL en route. Pt states chest pain continues. Face flushed. Pt A&Ox3. No resp distress noted. Pt speaking in full sentences. The patient is a 45 y.o. female who presents today with Chest Pain Chest Pain This is a new problem. The current episode started 3 hours ago. The onset was sudden in nature. Theproblem has not changed since onset. The pain is associated with an emotional upset. The pain is present in the substernal region. The pain is moderate. The quality of the pain is described as pressure-like. The pain does not radiate. Duration of episode(s) is 3 hours. The symptoms are aggravated by deep breathing, exertion and certain positions. Associated symptoms include shortness of breath. Pertinent negatives include no diaphoresis, no fever, no abdominal pain, no back pain, no dizziness, no cough and no hemoptysis. She has tried nothing for the symptoms. Patient's risk factors do not include diabetes, coronary artery disease in family or HTN.There is no history of DM, HTN or PE. Procedure history is negative for exercise treadmill test. The history is provided by the patient. Review of Systems Constitutional: Negative for fever, diaphoresis and activity change. HENT: Negative. Eyes: Negative. Respiratory: Positive for shortness of breath. Negative for cough and hemoptysis. Cardiovascular: Positive for chest pain. Gastrointestinal: Negative for abdominal pain. Genitourinary: Negative for dysuria. Musculoskeletal: Negative for back pain. Skin: Negative. Neurological: Negative. Negative for dizziness. Hematological: Does not bruise/bleed easily. Psychiatric/Behavioral: The patient is nervous/anxious. All other systems reviewed and are negative. Past Medical History Diagnosis Date ??? Hypertension Past Surgical History Procedure Date ??? Cardiac surgery No Known Allergies History Substance Use Topics ??? Smoking status: Never Smoker ??? Smokeless tobacco: Not on file ??? Alcohol Use: No History reviewed. No pertinent family history. Vital Signs Temp: 37.3 ??C (99.1 ??F) Temp src: Oral Pulse: 124 Heart Rate: 101 BPM Resp: 16 SpO2: 93 % BP: 114/71 mmHg BP Device: BP Machine O2 Device: None (Room air) Physical Exam Nursing note and vitals reviewed. Constitutional: She is oriented to person, place, and time. She appears well- developed and well-nourished. HENT: Head: Normocephalic and atraumatic. Eyes: Pupils are equal, round, and reactive to light. Neck: Neck supple. Cardiovascular: Normal rate and intact distal pulses. Pulmonary/Chest: Effort normal. No respiratory distress. Musculoskeletal: Normal range of motion. Neurological: She is alert and oriented to person, place, and time. Skin: Skin is warm and dry. Psychiatric: Her behavior is normal. Thought content normal. V anxious Radiology orders: None Patient had laboratory tests ordered which were reviewed and interpreted by myself. Please see laboratory results for detailed information. Neg trop. NSR, no acute ischemia, no significant ST changes or T-wave abnormalities, independently viewed andinterpreted by myself Procedures ED Course: Pt presents with atypical CP History most c/w anxiety Sx for days intermittently and nl ekg, neg enzymes D?w cards to arrange outpt stress test D/c to home F/u PCP and with stress test Discharge Prescriptions New Prescriptions No Discharge Prescriptions for this patient MDM Number of Diagnoses or Management Options Chest pain: Diagnosis management comments: 5 1. Chest pain (786.50F) PCP: BERRY CHADWICK MD 09/30/2010 21:24 * Esperanza Gross RN - 09/22/2010 0003 EST Pt states pain gone. Sleeping upon entering room. Easily arousable. Pt verbalized understanding of d/c instructions. * Esperanza Gross RN - 09/21/2010 2259 EST Pt sleeping but awakens easily. Pt states that pain is better. Continues on ekg monitor, side rails in upright position, call [place] attached. * Esperanza Gross RN - 09/21/20102047 EST IV established by EMS. Labs drawn and sent. Pt on ekg monitor, side rails in upright position, call [place] attached. * Guillermo Estrada - 09/21/20102034 EST 12 Lead EKG Performed by Guillermo Estrada and shown to Rashid Alfaro MD documented in this encounter Miscellaneous Notes * Scanned Note-Null - Inpatient, Physician - 09/21/2010 0000 EST * Scanned Note-Null - Inpatient, Physician - 09/21/2010 0000 EST * Scanned Note-Null - Inpatient, Physician - 09/21/2010 0000 EST documented in this encounter Plan of Treatment Not on file documented as of this encounter Procedures Procedure Name Priority Date/Time Associated Diagnosis Comments ECG REPORT - SCANNED 09/29/2010 22:07 EST PROFILE ED CARDIAC PACK STAT 09/21/2010 20:49 EST D-DIMER STAT 09/21/2010 20:49 EST HOLD BLUE TOP Routine 09/21/2010 20:11 EST documented in this encounter Results * ECG REPORT - SCANNED (09/29/2010 22:07 EST) 09/29/2010 22:0 7 EST Narrative Procedure Note Inpatient, Physician - 09/21/2010 0:00 EST Physician Inpatient MD PROCEDURE/MINOR S URGICAL ORDERABLES * (ABNORMAL) PROFILE ED CARDIAC PACK (09/21/2010 20:49 EST) WBC 9.69 4.0 - 12.4 K/cmm [facility] RBC 4.33 3.86 - 5.04 M/cmm [facility] Hemoglobin 12.8 11.6 - 15.2 gm/dl [facility] HCT 37.3 34.9 - 44.4 % [facility] MCV 86 81 - 98 fl [facility] MCH 29.5 26.7 - 33.3 pg [facility] MCHC 34.3 32.1 - 35.9 gm/dl [facility] PLT 258 141 - 320 K/cmm [facility] RDW-CV 14.5 11.7 - 14.6 % [facility] % Neutrophils 60.3 45.5 - 79.7 % [facility] % Lymphocytes 30.0 15.0 - 46.8 % [facility] % Monocytes 6.4 1.8 - 12.0 % [facility] % Eosinophils 2.5 0.6 - 6.9 % [facility] % Basophils 0.8 0.2 - 1.4 % [facility] ABS Neutrophils 5.84 2.20 - 8.85 K/cmm [facility] ABS Lymphs 2.91 1.09 - 3.30 K/cmm [facility] ABS Monocytes 0.62 0.1 - 0.8 K/cmm [facility] ABS Eosinophils 0.24 0.03 - 0.61 K/cmm [facility] ABS Basophils 0.08 0.01 - 0.11 K/cmm [facility] Type of Diff: Automated [facility] Pro Time 10.4 9.5 - 12.9 secs [facility] Comment:Note new prothrombin time reference range effective 2010 I.N.R. 0.9 0.9 - 1.1 Ratio [facility] Comment: ??Moderate Intensity Coumadin INR = 2.0-3.0 Adjustments in anticoagulant therapy dose should be based upon the INR and NOT the Pro Time. ?? PTT 26 24 - 35 secs [facility] Comment:Therapeutic Heparin range: 60-90 seconds Sodium 138 136 - 145 mEq/L [facility] Potassium 3.8 3.5 - 5.0 mEq/L [facility] Chloride 105 96 - 110 mEq/L [facility] CO2 21(L) 24 - 32 mEq/L [facility] BUN 17 10 - 26 mg/dl [facility] Creatinine 0.80 0.7 - 1.5 mg/dl [facility] GFR, Calculated >60 ml/min/1. 73m2 [facility] Glucose, Screening 117(H) 70 - 100 mg/dl [facility] Magnesium 1.8 1.7 - 2.8 mg/dl [facility] CK 100 30 - 135 U/L [facility] MB 0.7 0 - 5.0 ng/ml [facility] CK-MB Index Not calculated, normal MB. 0 - 2.5 [facility] Troponin I pre 2011 <0.05 <0.81 ng/ml [facility] Comment: Reference Range: Normal: ??Less than 0.05 Indeterminate: ??0.05-0.80 Positive: ?? Greater than 0.80 Blood specimen (specimen) 09/21/2010 20:49 EST 09/21/2010 20:53 EST Heriberto Morrison MD PACKAGES & D NA PROBE ORDERABLES Performing Organization Address [facility] Phone Number [facility] [address] [place] [address] * D-DIMER (09/21/2010 20:49 EST) D-Dimer <200 <230 ng/mL [facility] Comment:CUTOFF VALUE FOR THE EXCLUSION OF DVT and PE: 230 ng/mL Blood specimen (specimen) 09/21/2010 20:49 EST 09/21/2010 20:53 EST Heriberto Morrison MD HEMATOLOGY & PF4 ORDERABLES Performing Organization Address [facility] [place] [address] * HOLD BLUE TOP (09/21/2010 20:11 EST) Hold Blue Top Sample for coagulation will be discarded after 4 hours [facility] 09/21/2010 20:1 1 EST 09/21/2010 20:55 EST Heriberto Morrison MD LAB INFO SER VICE AND SUPPORT & PHONE RESULT Performing Organization Address [facility] Phone Number [facility] [address] [place] [address] documented in this encounter Visit Diagnoses Diagnosis Chest pain Chest pain, unspecified documented in this encounter Administered Medications Inactive Administered Medications - up to 3 most recent administrations Medication Order MAR Action Action Date Dose Rate Site ketorolac (TORADOL) injection 30 mg 30 mg, intravenous, NOW X1, 1 dose, On Sun09/21/10 at 2215, STAT Given 09/21/2010 22:10 EST 30 mg lorazepam (ATIVAN) injection 1 mg 1 mg, intravenous, NOW X1, 1 dose, On Sun09/21/10 at 2100, STAT Given 09/21/2010 20:57 EST 1 mg lorazepam (ATIVAN) injection 1 mg 1 mg, intravenous, NOW X1, 1 dose, On Sun09/21/10 at 2215, STAT Given 09/21/2010 22:34 EST 1 mg sodium chloride 0.9 % 1,000 mL BOLUS 1,000 mL, intravenous, Once (Without Time Specified), 1 dose, Starting on Sun09/21/10 at 2030, Until Sun09/21/10 at 2056, STAT Given 09/21/2010 20:57 EST 1,000 mL documented in this encounter Active and Recently Administered Medications Times are shown in EST. Scheduled Medication Order 09/20/2010 09/21/2010 09/22/2010 ketorolac (TORADOL) injection 30 mg (COMPLETED) 30 mg, intravenous, NOW X1, 1 dose, On Sun09/21/10 at 2215, STAT 2210 (Given - Provider: Radha Gross RN) lorazepam (ATIVAN) injection 1 mg (COMPLETED) 1 mg, intravenous, NOW X1, 1 dose, On Sun09/21/10 at 2100, STAT 2056 (Given - Provider: Radha Gross RN) lorazepam (ATIVAN) injection 1 mg (COMPLETED) 1 mg, intravenous, NOW X1, 1 dose, On Sun09/21/10 at 2215, STAT 2234 (Given - Provider: Radha Gross RN) sodium chloride 0.9 % 1,000 mL BOLUS (COMPLETED) 1,000 mL, intravenous, Once (Without Time Specified), 1 dose, Starting on Sun09/21/10 at 2030, Until Sun09/21/10 at 2056, STAT 2056 (Given - Provider: Radha Gross RN) documented in this encounter Care Teams [employer] Operator [employer] Relationship Specialty Start Date End Date Berry Chadwick MD [address] [place] [address] PCP - General 07/26/10 01/30/18 documented as of this encounter
--- OUTSIDE RECORDS SUMMARY | 2024-02-17 09:35 | XMS_ITS | Encounter Summary ---
Author Organization [facility] Address [address] [place] [address] Care Team Providers Care Print Shop Chief Clerk Name Role Phone Chris Fischera Dalia TREE CARE FOREMAN Primary Care Provider Reason for Referral * Radiology Services (Routine) - New Request Specialty Diagnoses / Procedures Referred By Laurel garrett Referred To Contact Diagnoses Neck pain Procedures CERVICAL SPINE 4 OR MORE VIEWS Daily Scott PA-C [address] [place] [phone] Referral ID Status Reason Start Date Expiration Date V isits Requested Visits Authorized [id number] New Request 12/18/2018 1 1 Encounter Details Date Type Department Care Team (Late st Contact Info) Description 12/19/2018 Orders Only [facility] Spine Program - [address] [address] Daily Scott PA-C [address] [place] [address] [place] [address] Neck pain (Primary Dx) Social History Tobacco Use Types Packs/Day Years [...] Procedure Name Priority Date/Time Associated Diagnosis Comments CERVICAL SPINE 4 OR MORE VIEWS Routine 12/19/2018 9:42 EDT Neck pain documented in this encounter Results * CERVICAL SPINE 4 OR MORE VIEWS (12/19/2018 9:42 EDT) Anatomical Region Laterality Modality Other 12/19/2018 9:42 EDT 12/20/2018 23:37 EDT Narrative 12/20/2018 23:37 EDT CERVICAL SPINE 4 OR MORE VIEWS ??12/19/2018 9:42 AM Clinical History/Comments: M54.7-[id number]; Neck Pain Comparison: MRI of the cervical spine from [facility] on November 29, 2018 Technique: AP and lateral flexion, neutral and extension views of the cervical spine were obtained. Findings: Craniocervical and atlantoaxial alignments are anatomic. There is minimal anterolisthesis of C6 on C7 appears similar on the flexion, neutral and extension views. Vertebral body heights are preserved. There is mild disc space narrowing with small anterior marginal osteophytes and uncovertebral spurring at C5-6 consistent with disc degeneration. Marked facet osteoarthropathy is not appreciated. Procedure Note Lis Prather MD, MD - 12/20/2018 CERVICAL SPINE 4 OR MORE VIEWS 12/19/2018 9:42 AM Clinical History/Comments: M54.0-[id number]; Neck Pain Comparison: MRI of the cervical spine from [facility] on November 29, 2018 Technique: AP and lateral flexion, neutral and extension views of the cervical spine were obtained. Findings: Craniocervical and atlantoaxial alignments are anatomic. There is minimal anterolisthesis of C6 on C7 appears similar on the flexion, neutral and extension views. Vertebral body heights are preserved. There is mild disc space narrowing with small anterior marginal osteophytes and uncovertebral spurring at C5-6 consistent with disc degeneration. Marked facet osteoarthropathy is not appreciated. Daily Scott PA-C [facility] ORDERABLES documented in this encounter Visit Diagnoses Diagnosis Neck pain- Primary Cervicalgia documented in this encounter Care Teams Print Shop Chief Clerk Relationship Specialty Start Date End Date Terese Fischer TREE CARE FOREMAN [address] [place] [phone] PCP - General 12/19/18 documented as of this encounter
--- OUTSIDE RECORDS SUMMARY | 2024-02-17 09:35 | XMS_ITS | Referral Summary ---
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 04/24/2012 Social History Tobacco Use Types Packs/Day Years [...] on file Sexual Orientation Not on file Last Filed Vital Signs Vital Sign Reading Time Taken Comments Blood Pressure 114/71 09/21/20102344 EST Pulse 124 09/21/20102036 EST Temperature 37.3 ??C (99.1 ??F) 09/21/20102036 EST Respiratory Rate 16 09/21/20102036 EST Oxygen Saturation 93% 09/21/20102344 EST Inhaled Oxygen Concentration - - Weight 91.2 kg (201 lb) 09/21/20102036 EST Height 167.6 cm (5' 6) 09/21/20102036 EST Body Mass Index 32.44 09/21/20102036 EST Plan of Treatment Not on file Care Teams Storage Garage Manager Relationship Specialty Start Date End Date Terese Fischer ROAD SERVICE LOCKSMITH [address] [place] [address] PCP - General 12/19/18
--- OUTSIDE RECORDS SUMMARY | 2024-02-17 09:35 | XMS_ITS | Encounter Summary ---
Author Organization [facility] Address [address] [place] [address] Care Team Providers Care Front Desk Monitor Name Role Phone None, Provider Primary Care Provider Unavailabl e Encounter Details Date Type Department Care Team (Late st Contact Info) Description 12/02/2018 Results Only Imaging [facility]- [facility] [phone] Unknown, Provider, Social History Tobacco Use Types Packs/Day Years Used Date Smoking Tobacco: Never Alcohol Use Standard Drinks/Week Comments No 0 (1 standard drink = 0.6 oz pur e alcohol) Sex and Gender Information Value Date Recorded Sex Assigned at Not on file Gender Identity Not on file Sexual Orientation Not on file documented as of this encounter Plan of Treatment Pending Results Name Type Priority Associated Diagnoses Date /Time OUTSIDE IMAGES - US BODY Imaging 12/02/2018 9:30 EDT documented as of this encounter Visit Diagnoses Not on filedocumented in this encounter Care Teams Front Desk Monitor Relationship Specialty Start Date End Date None, Provider PCP - General 01/31/18 12/18/18 documented as of this encounter
--- OUTSIDE RECORDS SUMMARY | 2024-02-17 09:35 | XMS_ITS | Encounter Summary ---
Author Organization [facility] Address [address] [place] [address] Care Team Providers Care Tassel Making Machine Operator Name Role Phone Aaliyah Terese Dalia BRANCH SALES AND SERVICE REPRESENTATIVE Primary Care Provider [phone] Encounter Details Date Type Department Care Team (Late st Contact Info) Description 08/04/2019 Lab Requisition [facility] Pathology & Laboratory Medicine - [address] [address] Unknown, Provider, Social History Tobacco Use Types [...] Procedure Name Priority Date/Time Associated Diagnosis Comments HOLD SST Routine 08/04/2019 21:23 EST HOLD SST Routine 08/04/2019 21:23 EST HOLD SST Routine 08/04/2019 21:23 EST HOLD SST Routine 08/04/2019 21:23 EST MEASLES IGG AB Routine 08/04/2019 12:50 EST RUBELLA IGG ANTIBODY Routine 08/04/2019 12:50 EST HEPATITIS B SURFACE ANTIBODY Routine 08/04/2019 12:50 EST VARICELLA IGG ANTIBODY Routine 08/04/2019 12:50 EST MUMPS ANTIBODY IGG Routine 08/04/2019 12 :50 EST documented in this encounter Results * HOLD SST (08/04/2019 21:23 EST) Hold Hold 08/04/2019 22:30 EST [facility] Blood VENOUS BLOOD / Unknown 08/04/2019 21:23 EST 08/04/2019 21:23 EST Provider Unknown MD LAB INFO SERVICE AND SUPPORT & PHONE RESULT Performing Organization Address City/[facility]/ZIP Co de Phone Number [facility] [address] [place] [phone] * HOLD SST (08/04/2019 21:23 EST) Hold Hold 08/04/2019 22:30 EST [facility] Blood VENOUS BLOOD / Unknown 08/04/2019 21:23 EST 08/04/2019 21:23 EST Provider Unknown LAB INFO SERVICE AND SUPPORT & PHONE RESULT Performing Organization Address City/[facility]/ZIP Co de Phone Number [facility] [address] [place] [phone] * HOLD SST (08/04/2019 21:23 EST) Hold Hold 08/04/2019 22:30 EST [facility] Blood VENOUS BLOOD / Unknown 08/04/2019 21:23 EST 08/04/2019 21:23 EST Provider Unknown LAB INFO SERVICE AND SUPPORT & PHONE RESULT Performing Organization Address City/[facility]/ZIP Co de Phone Number [facility] [address] [place] [phone] * HOLD SST (08/04/2019 21:23 EST) Hold Hold 08/04/2019 22:30 EST [facility] Blood VENOUS BLOOD / Unknown 08/04/2019 21:23 EST 08/04/2019 21:23 EST Provider Unknown MD LAB INFO SERVICE AND SUPPORT & PHONE RESULT Performing Organization Address City/[facility]/ZIP Co de Phone Number [facility] [address] [place] [address] * HEPATITIS B SURFACE ANTIBODY (08/04/2019 12:50 EST) Hep B Surface Ab, Quantitative 4.6 See Note mIU/mL 08/05/2019 9:06 EST [facility] Comment: Reference Range for Hep B Surface Ab, Quant: Positive: >= 10.0 mIU/mL Negative: ??< 10.0 mIU/mL Patient is presumed to not be immune to infection with Hepatitis B Virus. Hep B Surface Ab, Qualitative Negative See Note 08/05/2019 9:06 EST [facility] Comment: Reference Range for Hep B Surface Ab, Qual: Unvaccinated: ??Negative Vaccinated: ??Positive Blood VENOUS BLOOD / Unknown Venipuncture / Unknown 08/04/2019 12:50 EST 08/04/2019 21:22 EST Provider Unknown CHEMISTRY & BLOOD GA S ORDERABLES Performing Organization Address [facility] Co de Phone Number [facility] [address] [place] [address] * MEASLES IGG AB (08/04/2019 12:50 EST) Pathologist [facility] Measles IgG Ab Negative See Note 08/05/2019 11:16 EST [facility] Comment:Absence of detectabl e measles virus IgG antibodies. A negative result generally indicates that the patient is susceptible to measles. Blood VENOUS BLOOD / Unknown Venipuncture / Unknown 08/04/2019 12:50 EST 08/04/2019 21:22 EST Provider Unknown IMMUNOLOGY AND SEROL OGY ORDERABLES Performing Organization Address City/[facility]/ZIP Co de Phone Number [facility] [address] [place] [address] * VARICELLA IGG ANTIBODY (08/04/2019 12:50 EST) Varicella IgG Ab Positive See Note 08/05/2019 11:16 EST [facility] Comment:Presence of detectab le Varicella Zoster virus IgG antibodies. Blood VENOUS BLOOD / Unknown Venipuncture / Unknown 08/04/2019 12:50 EST 08/04/2019 21:22 EST Provider Unknown MD IMMUNOLOGY AND SEROL OGY ORDERABLES Performing Organization Address City/[facility]/ZIP Co de Phone Number [facility] [address] [place] [address] * MUMPS ANTIBODY IGG (08/04/2019 12:50 EST) Mumps Antibody IgG Negative See Note 08/05/2019 11:16 EST [facility] Comment:Absence of detectabl e mumps virus IgG antibodies. A negative result generally indicates that the patient is susceptible to mumps. Blood VENOUS BLOOD / Unknown Venipuncture / Unknown 08/04/2019 12:50 EST 08/04/2019 21:22 EST Provider Unknown MD IMMUNOLOGY AND SEROL OGY ORDERABLES Performing Organization Address [facility] Co de Phone Number [facility] [address] [place] [address] * RUBELLA IGG ANTIBODY (08/04/2019 12:50 EST) Rubella IgG Ab Positive See Note 08/05/2019 11:16 EST [facility] Comment:Positive for IgG ant ibodies to Rubella virus. Blood VENOUS BLOOD / Unknown Venipuncture / Unknown 08/04/2019 12:50 EST 08/04/2019 21:22 EST Provider Unknown MD CHEMISTRY & BLOOD GA S ORDERABLES Performing Organization Address [facility] Co de Phone Number [facility] [address] [place] [address] documented in this encounter Visit Diagnoses Not on filedocumented in this encounter Care Teams Tassel Making Machine Operator Relationship Specialty Start Date End Date Terese Fischer, BRANCH SALES AND SERVICE REPRESENTATIVE [address] [place] [phone] PCP - General 12/19/18 documented as of this encounter
--- OUTSIDE RECORDS SUMMARY | 2024-02-17 09:35 | XMS_ITS | Encounter Summary ---
[place] [address] Care Team Providers Care School Manager Name Role Phone Nat Baker MD Primary Care Provider [phone] Encounter Details Date Type Department Care Team (Late st Contact Info) Description 12/02/2018 External Results Non-Invasive [place] [phone] Social History Tobacco Use Types Packs/Day Years [...] Procedure Name Priority Date/Time Associated Diagnosis Comments ECHO SCAN (SCAN) Routine 12/02/2018 documented in this encounter Results * Scan Doc: Echo (12/02/2018) Anatomical Region Laterality Modality Cardiac Other Historical Provider MD MARTINEZ MGR SCAN EX T ORDR/RSLT documented in this encounter Visit Diagnoses Not on filedocumented in this encounter Care Teams School Manager Relationship Specialty Start Date End Date Nat Baker MD [address] [place] [address] PCP - General 11/11/18 02/27/19 documented as of this encounter
--- OUTSIDE RECORDS SUMMARY | 2024-02-17 09:35 | XMS_ITS | Encounter Summary ---
Author Organization [facility] Address [address] [place] [address] Care Team Providers Care Hog Scraper Name Role Phone None, Provider Primary Care Provider Unavailabl e Encounter Details Date Type Department Care Team (Late st Contact Info) Description 02/12/2018 Results Only [facility] Hematology & Oncology - [facility] [address] [place] [address] [place] [address] [place] [phone] Social History Tobacco Use Types Packs/Day Years [...] Procedure Name Priority Date/Time Associated Diagnosis Comments REFERRAL TEST 1 Routine 02/12/2018 14:51 EDT documented in this encounter Results * REFERRAL TEST 1 (02/12/2018 14:51 EDT) Test Name Family Variant Testing, BRCA1 02/12/2018 15:[address] [facility] Result See Pathology Scanned Report in [facility]. 02/25/2018 11:[address] [facility] Comment:Assayed at [facility], [place], [place] Ref Lab [facility] 02/12/2018 15:[address] [facility] Date Sample Shipped 02/12/2018 02/12/2018 15:[address] [facility] TOPOGRAPHY UNKNOWN / Unknown 02/12/2018 14:51 EDT 02/12/2018 15:12 EDT Irene Lopez MD LAB INFO SERVICE AND SUPPORT & PHONE RESULT [facility] [address] [place] [address] documented in this encounter Visit Diagnoses Not on filedocumented in this encounter Care Teams Hog Scraper Relationship Specialty Start Date End Date None, Provider PCP - General 01/31/18 12/18/18 documented as of this encounter
--- OUTSIDE RECORDS SUMMARY | 2024-02-17 09:35 | XMS_ITS | Encounter Summary ---
Author Organization [facility] Address [address] [place] [address] Care Team Providers Care Slab Lifting Supervisor Name Role Phone Jim Chadwick MD Primary Care Provider [phone] None, Provider Primary Care Provider Terese Rob CARE MANAGER CNA Primary Care Provider [phone] Encounter Details Date Type Department Care Team (Late st Contact Info) Description 09/21/2010 Orders Only [facility] Cardiology - [address] [place], [place] [phone] Jim Fowler MD [address] [place] [phone] Chest pain (Primary Dx) Social History Tobacco Use [...] Name Type Priority Associated Diagnoses Date /Time EXERCISE TOLERANCE TEST Cardiac Services Routine Chest pain 09/28/2010 9:15 EST documented as of this encounter Visit Diagnoses Diagnosis Chest pain- Primary Chest pain, unspecified documented in this encounter Care Teams Slab Lifting Supervisor Relationship Specialty Start Date End Date Jim Chadwick MD [address] [place] [address] PCP - General 07/26/10 01/30/18 None, Provider PCP - General 01/31/18 12/18/18 Terese Fischer NP [address] [place] [phone] PCP - General 12/19/18 documented as of this encounter
--- OUTSIDE RECORDS SUMMARY | 2024-02-17 09:35 | XMS_ITS | Encounter Summary ---
Author Organization [facility] Address [address] [place] [address] Care Team Providers Care Studio Technician Name Role Phone Jim Chadwick MD Primary Care Provider [phone] Encounter Details Date Type Department Care Team (Latest Contact Info) Description 09/08/2010 15:01 EST - 09/08/2010 15:02 [facility] Hospital Encounter [facility] - Other [address] [place] [address] Jim Chadwick MD [address] [facility] [place] [place] [address] Discharge Disposition: Home or Self Care Social History Tobacco Use Types Packs/Day Years Used Date Smoking Tobacco: Never Alcohol Use Standard Drinks/Week Comments No 0 (1 standard drink = 0.6 oz pur e alcohol) Sex and Gender Information Value Date Recorded Sex Assigned at Not on file Gender Identity Not on file Sexual Orientation Not on file documented as of this encounter Discharge Disposition Disposition Code Departure Means Destination Home or Self Care documented in this encounter Plan of Treatment Not on file documented as of this encounter Visit Diagnoses Not on filedocumented in this encounter Care Teams Studio Technician Relationship Specialty Start Date End Date Jim Chadwick MD [address] [facility] [employer] [place] [phone] PCP - General 07/26/10 01/30/18 documented as of this encounter
--- OUTSIDE RECORDS SUMMARY | 2024-02-17 09:35 | XMS_ITS | Encounter Summary ---
Author Organization [facility] Address [address] [place] [address] Care Team Providers Care Institutional Cook Name Role Phone Aaliyah Terese Dalia HEAD TEACHER Primary Care Provider [phone] Encounter Details Date Type Department Care Team (Late st Contact Info) Description 07/03/2023 Lab Requisition [facility] Pathology & Laboratory Medicine - [address] [address] Clotilde Castillo PA-C [address] [place] [address] Erythema intertrigo; Rash and other nonspecific skin eruption Social History Tobacco Use Types Packs/Day Years [...] Procedure Name Priority Date/Time Associated Diagnosis Comments SURGICAL PATHOLOGY Today 07/01/2023 14 :45 EST Erythema intertrigo Rash and other nonspecific skin eruption documented in this encounter Results * SURGICAL PATHOLOGY (07/01/2023 14:45 EST) Note to Patient The following pathology results have been interpreted by your pathologist and may be available to you before your health provider has had the opportunity to review them. Please allow time for your provider to receive these results and explore management options, if applicable. 07/04/2023 11:12 [facility] Final Diagnosis A. SKIN OF ABDOMEN, RIGHT LOWER, BIOPSY: - Superficial and deep perivascular dermatitis with eosinophils. See microscopic and comment. 07/04/2023 11:12 [facility] Diagnosis Comment The findings are most suggestive of a dermal hypersensitivity reaction. The density and depth of the infiltrate raise an arthropod assault reaction as a consideration. Clinical correlation is recommended. 07/04/2023 11:12 [facility] Attestation By the signature below, the attending physician certifies that they have 1) personally conducted a gross and/or microscopic examination of the described specimen(s), and/or personally interpreted the results of laboratory testing of the described specimen(s), and 2) personally rendered or confirmed the above diagnosis. 07/04/2023 11:12 [facility] at 1112 Microscopic Description Sections consist of a punch biopsy of skin. There is compact orthokeratosis overlying an epidermis which shows acanthosis and mild spongiosis. Within the dermis is a dense, superficial and deep, mixed inflammatory infiltrate which includes lymphomononuclear cells and numerous eosinophils. The lymphomononuclear cells are generally small with a spectrum of forms. Patchy neutrophils are noted with an exocytosis into the overlying epidermis. The dermal collagen bundles show some fibrosis. 07/04/2023 11:12 [facility] Clinical History Rash R lower abdomen; 4 mm punch biopsy for pathology review; clinical diagnosis code: R21, L30.4 07/04/2023 11:12 [facility] Gross Description A. Received in formalin labelled with proper patient identification (initials S, L) and right lower abdomen is a pale hill circular skin, 0.4 cm in diameter and excised to a depth of 0.4 cm. Bisected and entirely submitted in A1. LY ANDREWS(ASCP) 07/03/2023 10:27 07/04/2023 11:12 [facility] Performing Lab [facility] 07/04/2023 11:12 [facility] Scanned Images 07/04/2023 11:12 EST [facility] Tissue SPECIMEN FROM SKIN / Unknown 07/01/2023 14:45 EST 07/03/2023 10:12 EST Clotilde Castillo PA-C PATHOLOGY ORDERABLE S [facility] [address] [place] [address] documented in this encounter Visit Diagnoses Diagnosis Erythema intertrigo Other specified erythematous condition Rash and other nonspecific skin eruption documented in this encounter Care Teams Institutional Cook Relationship Specialty Start Date End Date Terese Fischer NP [address] [place] [address] PCP - General 12/19/18 documented as of this encounter
--- OUTSIDE RECORDS SUMMARY | 2024-02-17 09:35 | XMS_ITS | Encounter Summary ---
Author Organization [facility] Address [address] [place] [address] Care Team Providers Care Cuff Stitcher Name Role Phone Jim Chadwick MD Primary Care Provider [phone] Reason for Visit * Reason Comments Pelvic Pain has had a growth in pelvic area,having pain and growth has changed Encounter Details Date Type Department Care Team (Late st Contact Info) Description 07/26/2010 9:41 EST - 07/26/2010 10:48 EST Emergency [facility] Emergency Department - [address] [address] Isra Gutierrez MD [facility] [place] [address] Emergency, MD Arpan Infected sebaceous cyst Discharge Disposition: Home or Self Care Social [...] Sign Reading Time Taken Comments Blood Pressure 200/78 07/26/2010 0954 EST Pulse 84 07/26/2010 0954 EST Temperature 35.3 ??C (95.5 ??F) 07/26/2010 0954 EST Respiratory Rate 16 07/26/2010 0954 EST Oxygen Saturation 100% 07/26/2010 0954 EST Inhaled Oxygen Concentration - - Weight - - Height - - Body Mass Index - - documented in this encounter Discharge Instructions * Attachments The following attachments cannot be sent through Care Everywhere. * SKIN ABSCESS: AFTER YOUR VISIT (WELSH) documented in this encounter Discharge Disposition Disposition Code Departure Means Destination Home or Self Care Walk-out Home documented in this encounter ED Notes * Isra Gutierrez MD - 07/26/2010 1024 EST DOS: 07/26/2010 Chief Complaint Patient presents with ??? Pelvic Pain has had a growth in pelvic area,having pain and growth has changed The patient is a 45 y.o. female who presents today with Pelvic Pain The history is provided by the patient. Pelvic Pain This is a new problem. The current episode started 3 to 5 days ago. The problem occurs continuously. The problem has been gradually worsening. The pain is mild. Nothing relieves the symptoms. Nothingaggravates the symptoms. Associated symptoms include abdominal pain (small abscess on anterior right lower abd wall ). Pertinent negatives include no fever. Review of Systems Constitutional: Negative for fever. Gastrointestinal: Positive for abdominal pain (small abscess on anterior right lower abd wall ). All other systems reviewed and are negative. Past Medical History Diagnosis Date ??? Hypertension History reviewed. No pertinent past surgical history. No Known Allergies History Substance Use Topics ??? Tobacco Use: Never ??? Alcohol Use: No History reviewed. No pertinent family history. Vital Signs Temp: 35.3 ??C (95.5 ??F) Temp src: Tympanic Pulse: 84 Resp: 16 SpO2: 100 % BP: 200/78 mmHg BP Device: BP Machine Patient Position: Sitting O2 Device: None (Room air) Physical Exam Nursing note and vitals reviewed. Constitutional: She is oriented to person, place, and time. She appears well- developed and well-nourished. HENT: Head: Normocephalic and atraumatic. Mouth/Throat: Oropharynx is clear and moist. Eyes: Conjunctivae and extraocular motions are normal. Pupils are equal, round, and reactive to light. Neck: Normal range of motion. Neck supple. Cardiovascular: Normal rate, regular rhythm, normal heart sounds and intact distal pulses. Pulmonary/Chest: Effort normal and breath sounds normal. She has no wheezes. She has no rales. Abdominal: Soft. Bowel sounds are normal. No tenderness. She has no rebound and no guarding. Small 1 cm sebaceous cyst with localized drainage and infection on right lower abd Musculoskeletal: Normal range of motion. She exhibits no edema and no tenderness. Neurological: She is alert and oriented to person, place, and time. No cranial nerve deficit. Skin: Skin is warm and dry. Psychiatric: She has a normal mood and affect. Her behavior is normal. Radiology orders: None Procedures ED Course: I&D of sebaceous cyst . Prepped draped , analgesia with 1% lidocaine and incised with 11 blade.Contents removed , shell removed and irrigated with ns. Packed with 1/4 in packing Discharge Prescriptions No Discharge Prescriptions for this patient MDM Number of Diagnoses or Management Options Infected sebaceous cyst: Diagnosis management comments: 3 1. Infected sebaceous cyst (706.2CF) PCP: DOCTOR CAREY MD 07/26/2010 10:28 documented in this encounter Miscellaneous Notes * Scanned Note-Null - Inpatient, Physician - 07/26/2010 0000 EST documented in this encounter Plan of Treatment Not on file documented as of this encounter Visit Diagnoses Diagnosis Infected sebaceous cyst Sebaceous cyst documented in this encounter Care Teams Cuff Stitcher Relationship Specialty Start Date End Date Jim Chadwick MD [address] [place] [address] PCP - General 07/26/10 01/30/18 documented as of this encounter
--- OUTSIDE RECORDS SUMMARY | 2024-02-17 09:35 | XMS_ITS | Clinical Summary ---
Author Organization [facility] Address [facility] [place] [address] Care Team Providers Care Facility Practice Specialist Name Role Phone Mare, Carl Bairdhailey DNP Primary Care Provider [phone] Allergies Active Allergy Reactions Criticality Noted Date Comments Sulfa (Sulfonamide Antibiotics) Rash 01/20 Medications Medication Sig Dispensed Refills Start Date End Date Status lisinopril (PRINIVIL;ZESTRIL) 20 mg tablet Take 20 mg by mouth daily. Active atenolol (TENORMIN) 25 mg tablet Take 25 mg by mouth daily. Active meclizine (ANTIVERT) 25 mg tablet Take 1 tablet by mouth 3 times daily as needed for Dizziness. 30 tablet 0 08/03/2013 Active ibuprofen (ADVIL;MOTRIN) 600 mg Tablet Take 1 tablet by mouth every 6 hours as needed for Pain. 30 tablet 0 01/24/2015 Active benzonatate (TESSALON) 100 mg Capsule Take 1 capsule by mouth 3 times daily as needed for Cough. 30 tablet 0 04/03/2015 Active lisinopriL (Zestril) 20 mg Tablet Take 0.5 tablets by mouth daily. 30 tablet 02/07/2022 Active metFORMIN (FORTAMET) 500 mg Tablet Extended Rel 24 hr Take 1 tablet by mouth 2 times daily (with meals). 60 tablet 3 02/07/2022 Active Active Problems Problem Noted Date Diagnosed Date HTN (hypertension) 02/14/2013 Migraine headache 02/14/2013 Immunizations Name Administration Dates Next Due Influenza Trivalent w/Preservative 04/18/2012 Td Adult, Absorbed 04/18/2012 Social History Tobacco Use Types Packs/Day Years [...] Pulse 93 02/07/2022 8:01 AM EDT Temperature 37.3 ??C (99.1 ??F) 08/02/2015 1:12 PM ES T Respiratory Rate 17 02/07/2022 8:01 AM EDT Oxygen Saturation 91% 02/07/2022 8:01 AM EDT Inhaled Oxygen Concentration - - Weight 88.5 kg (195 lb) 02/07/2022 8:01 AM EDT Height 162.6 cm (5' 4) 02/07/2022 8:01 AM EDT Body Mass Index 33.47 02/07/2022 8:01 AM EDT Plan of Treatment Health Maintenance Due Date Last Done Comments CT Colonography 1964 Colonoscopy 1964 Colorectal Cancer Screening 1964 FIT DNA 1964 FIT 1964 Sigmoidoscopy (10 year) with FIT yearly 1964 Sigmoidoscopy 1964 HIV screen 02/04/1982 Hepatitis C Screening 02/04/1982 Tdap adult 02/04/1983 HPV test 02/04/1994 PAP Smear 02/04/1994 Breast Cancer Share Decision Needed 2004 Breast Cancer screening 2004 Zoster vaccine (1 of 2) 02/04/2014 Diabetes Screening (HgbA1C o r Glucose) 08/06/2018 08/06/2015, 04/30/2014, 02/14/2013 Advance Directive 02/04/2019 Lipid Screening 08/06/2020 08/06/2015 Tetanus vaccine 04/18/2022 04/18/2012 Covid-19 Vaccine ( - 2022-24 season) 2023 Influenza (Flu) vaccine (1 o f 1 - Influenza standard series) 03/23/2024 04/18/2012 Procedures Procedure Name Priority Date/Time Associated Diagnosis Comments LIPID PANEL (REFLEX DIRECT LDL) Routine 08/06/2015 HEMOGLOBIN A1C Routine 08/06/2015 from Last 3 Months or Most Recently Relevant to Health Maintenance Results * (ABNORMAL) Hemoglobin A1c (08/06/2015) Est Avg Gluc 162.8(ExtH ) 82.5 - 116.9 [facility] ARRIAGA DAY CONVERSION Hemoglobin A1C 7.3(ExtH) 4.5 - 6.2 [facility] DAY CONVERSION 08/06/2015 Results Provider Apd Conversion MD GUILLERMO VINSON ORDERABLES [facility] DAY CONVERSION * (ABNORMAL) Lipid Panel (08/06/2015) Chol/HDL Ratio 3.3(Exter nal Lab) 3.2 - 4.4 [facility] DAY CONVERSION VLDL 25.2(Exte rnal Lab) [facility] DAY CONVERSION LDL Cholesterol 119(Exter nal Lab) [facility] DAY CONVERSION HDL 64(ExtH) 40 - 60 [facility] ARRIAGA DAY CONVERSION Triglycerides 126(Exter nal Lab) 30 - 150 [facility] ARRIAGA DAY CONVERSION Chol, Total 208(ExtH) 50 - 200 DORA PE CK DAY CONVERSION 08/06/2015 Results Provider Apd Conversion MD GUILLERMO VINSON ORDERABLES DORA ARRIAGA DAY CONVERSION from Last 3 Months or Most Recently Relevant to Health Maintenance Care Teams Facility Practice Specialist Relationship Specialty Start Date End Date Carl Garvey DNP PCP - General Family Medicine 05/03/20
--- OUTSIDE RECORDS SUMMARY | 2024-02-17 09:35 | XMS_ITS | Encounter Summary ---
Author Organization [facility] Address [address] [place] [address] Care Team Providers Care Steam Pressure Chamber Operator Name Role Phone Terese Fischer RADIAGRAPH OPERATOR Primary Care Provider Reason for Referral * Referral (Routine) - Closed Specialty Diagnoses / Procedures Referred By Laurel garrett Referred To Contact Physical Medicine and Rehab Diagnoses Neck pain Hand numbness Procedures EMG/NERVE CONDUCTION STUDY Daily Scott PA-C [address] [place] [address] [facility] Phys Med Rehab [address] [facility] [place] [address] Referral ID Status Reason Start Date Expiration Date Visits Re quested Visits Authorized [id number] Closed 12/19/2018 1 1 Reason for Visit * Reason Onset Date Comments Neck Pain 12/19/2018 Encounter Details Date Type Department Care Team (Late st Contact Info) Description 12/19/2018 Orders Only [facility] Spine [facility] - [place] [address] [place] [address] Daily Scott PA-C [address] [place] [phone] Neck pain (Primary Dx); Hand numbness Social History Tobacco Use Types Packs/Day Years Used Date Smoking Tobacco: Never Smokeless Tobacco: Never Alcohol Use Standard Drinks/Week Comments No 0 (1 standard drink = 0.6 oz pur e alcohol) Sex and Gender Information Value Date Recorded Sex Assigned at Not on file Gender Identity Not on file Sexual Orientation Not on file documented as of this encounter Plan of Treatment Scheduled Orders Name Type Priority Associated Diagnoses Orde r Schedule EMG/NERVE CONDUCTION STUDY Procedures Routine Neck pain Hand numbness Ordered: 12/19/2018 documented as of this encounter Visit Diagnoses Diagnosis Neck pain- Primary Cervicalgia Hand numbness Disturbance of skin sensation documented in this encounter Care Teams Steam Pressure Chamber Operator Relationship Specialty Start Date End Date Terese Fischer NP [address] [place] [address] PCP - General 12/19/18 documented as of this encounter
--- OUTSIDE RECORDS SUMMARY | 2024-02-17 09:35 | XMS_ITS | Encounter Summary ---
Author Organization [facility] Address [address] [place] [address] Care Team Providers Care Receivable Executive Name Role Phone None, Provider Primary Care Provider Unavailabl e Encounter Details Date Type Department Care Team (Late st Contact Info) Description 11/30/2018 Results Only Imaging [facility]- [facility]ISM [phone] Unknown, Provider, Social History Tobacco Use Types [...] Associated Diagnoses Date /Time OUTSIDE IMAGES - CT NEURO Imaging 11/30/2018 9:47 EDT OUTSIDE IMAGES - CT CHEST Imaging 11/30/2018 9:47 EDT OUTSIDE IMAGES - CT NEURO Imaging 11/30/2018 9:47 EDT OUTSIDE IMAGES - MR NEURO Imaging 11/30/2018 9:47 EDT OUTSIDE IMAGES - MR NEURO Imaging 11/30/2018 9:47 EDT documented as of this encounter Visit Diagnoses Not on filedocumented in this encounter Care Teams Receivable Executive Relationship Specialty Start Date End Date None, Provider PCP - General 01/31/18 12/18/18 documented as of this encounter
--- OUTSIDE RECORDS SUMMARY | 2024-02-17 09:36 | XMS_ITS | Encounter Summary ---
Author Organization [facility] [address] Care Team Providers Care Engineering Drafter Name Role Phone Nat Baker MD Primary Care Provider [phone] Encounter Details Date Type Department Care Team (Late st Contact Info) Description 07/08/2014 Abstract Cherelle Jones Conversion Results [address] [place] [id number] Apd Conversion, Flowsheet Provider, Social History Tobacco Use Types Packs/Day [...] Sign Reading Time Taken Comments Blood Pressure 142/98 07/08/2014 2:17 PM EST Petrona rced from APD Conversion Pulse - - Temperature - - Respiratory Rate - - Oxygen Saturation - - Inhaled Oxygen Concentration - - Weight - - Height - - Body Mass Index - - documented in this encounter Plan of Treatment Not on file documented as of this encounter Visit Diagnoses Not on filedocumented in this encounter Care Teams Engineering Drafter Relationship Specialty Start Date End Date Nat Baker MD [address] [place] [address] PCP - General 11/11/18 02/27/19 documented as of this encounter
--- OUTSIDE RECORDS SUMMARY | 2024-02-17 09:36 | XMS_ITS | Encounter Summary ---
Author Organization [facility] [place] [address] Care Team Providers Care Machining Department Supervisor Name Role Phone None Primary Care Provider Unavailabl e Reason for Visit * Reason Comments Abdominal Pain Encounter Details Date Type Department Care Team (Late st Contact Info) Description 02/14/2013 4:03 AM EDT - 02/14/2013 6:19 AM EDT Emergency [place] [address] Orville Martinez MD [facility] [place] [address] Diverticulitis (Primary Dx); Headache Discharge Disposition: Home Social History Tobacco Use Types Packs/Day Years Used Date Smoking Tobacco: Never Sex and Gender Information Value Date Recorded Sex Assigned at Not on file Gender Identity Not on file Sexual Orientation Not on file documented as of this encounter Last Filed Vital Signs Vital Sign Reading Time Taken Comments Blood Pressure 130/81 02/14/2013 6:18 AM EDT Pulse 98 02/14/2013 6:18 AM EDT Temperature 36.9 ??C (98.4 ??F) 02/14/2013 4:26 AM ED T Respiratory Rate 16 02/14/2013 6:18 AM EDT Oxygen Saturation 98% 02/14/2013 6:18 AM EDT Inhaled Oxygen Concentration - - Weight 72.6 kg (160 lb) 02/14/2013 4:26 AM EDT Height - - Body Mass Index - - documented in this encounter Discharge Instructions * Discharge Instructions* Kayleigh Castillo - 02/14/2013 6:24 AM EDT You have been diagnosed with diverticulitis. We are prescribing 2 antibiotics for treatment: Ciprofloxacin and Metronidazole. Please take these antibiotics as directed until you complete the course. Return to the Emergency Room if your symptoms worsen or you experience fever, blood in your stool, vomiting, or a distended abdomen. * Attachments The following attachments cannot be sent through Care Everywhere. * DIVERTICULITIS: AFTER YOUR VISIT (SAUDI ARABIAN) * HEADACHE: AFTER YOUR VISIT TO THE EMERGENCY ROOM (SAUDI ARABIAN) documented in this encounter Medications at Time of Discharge Medication Sig Dispensed Refills Start Date End Date lisinopril (PRINIVIL;ZESTRIL) 20 mg tablet Take 20 mg by mouth daily. atenolol (TENORMIN) 25 mg tablet Take 25 mg by mouth daily. ciprofloxacin (CIPRO) 500 mg tablet Take 1 tablet by mouth 2 times daily for 10 days. 19 tablet 0 02/14/2013 02/24/2013 metroNIDAZOLE (FLAGYL) 500 mg tablet Take 1 tablet by mouth 2 times daily for 10 days. 19 tablet 0 02/14/2013 02/24/2013 OXYcodone (ROXICODONE) 5 mg immediate release tablet Take 1-2 tablets by mouth every 4 hours as needed for Pain. 20 tablet 0 02/14/2013 02/07/2022 documented as of this encounter ED Notes * Anna Marie Pelayo RN - 02/14/2013 5:48 AM EDT Returned from CT. * Anna Marie Pelayo RN - 02/14/2013 5:[address] Martinez and female medical student at bedside to perform pelvic exam. * Orville Martinez MD - 02/14/2013 4:54 AM EDT Chief Complaint Patient presents with ??? Abdominal Pain HPI 48 y.o. female with hx HTN who presents to the ED c/o abdominal pain x 4-5 days. She describes the pain as waxing/waning severity 8-10/10, localized to the LLQ with radiation to the left back/flank. Has had loose, non-bloody bowel movements. She has nausea but no vomiting. No similar in the past. No fever/chills. Prior abdominal surgery is TL. Also notes headache x 4-5 days. Constant over that time. Bilateral, retro-orbital, throbbing, constant, 8/10, different from prior migraine pattern. No aura. No photophobia, but does phonophobia. No focal weakness, difficulty ambulating, slurring ofspeech. No head injury. No anticoagulation use. No rashes. Seen at OSH ([facility]) and had some evaluation, patient unclear though sure she did not get a CT head or LP. Using ibuprofen with little improvement. No Known Allergies Review of Systems Constitutional: Negative for fever, chills and diaphoresis. HENT: Negative for congestion, rhinorrhea, neck pain and neck stiffness. Eyes: Negative for pain and redness. Respiratory: Negative for cough and shortness of breath. Cardiovascular: Negative for chest pain and palpitations. Gastrointestinal: Positive for nausea and abdominal pain. Negative for vomiting. Genitourinary: Negative for dysuria, urgency and difficulty urinating. Musculoskeletal: Negative for myalgias and arthralgias. Skin: Negative for color change and rash. Neurological: Positive for headaches. Negative for dizziness and light-headedness. Hematological: Negative for adenopathy. Does not bruise/bleed easily. BP 142/87 Pulse 111 Temp(Src) 36.9 ??C (98.4 ??F) (Oral) Resp 18 Wt 72.576 kg (160 lb) SpO2 97% LMP 01/24/2013 Physical Exam Nursing note and vitals reviewed. Constitutional: She is oriented to person, place, and time. She appears well- developed and well-nourished. No distress. Well appearing female in NAD HENT: Head: Normocephalic and atraumatic. Mouth/Throat: Oropharynx is clear and moist. No oropharyngeal exudate. Eyes: Conjunctivae normal and EOM are normal. Pupils are equal, round, and reactive to light. Neck: Normal range of motion. Neck supple. No meningismus Cardiovascular: Normal rate, regular rhythm, normal heart sounds and intact distal pulses. Exam reveals no gallop and no friction rub. No murmur heard. Pulmonary/Chest: Effort normal and breath sounds normal. No respiratory distress. She has no wheezes. She has no rales. She exhibits no tenderness. Abdominal: Soft. Bowel sounds are normal. She exhibits no distension and no mass. There is tenderness. There is no rebound and no guarding. Mild RUQ TTP. Moderate LLQ TTP. No rebound or gaurding. Genitourinary: Left CVA TTP Musculoskeletal: Normal range of motion. She exhibits no edema and no tenderness. Lymphadenopathy: She has no cervical adenopathy. Neurological: She is alert and oriented to person, place, and time. Skin: Skin is warm and dry. No rash noted. She is not diaphoretic. No erythema. No pallor. Psychiatric: She has a normal mood and affect. Procedures None ED Course: IV established and blood drawn. Given 30mg IV toradol for management of headache with improvement. UPT negative. UA negative for infection, though trace blood. CBC remarkable for WBC 13. BMP reviewd and unremarkable. CT scan showed inflammatory changes in LLQ c/w diverticulitis. Given 500mg flagyl and 500mg cipro. Discharged in stable condition after reviewing discharged instructions and return precautions. MDM 1. Abdominal pain. CT scan and exam c/w with early diverticulitis without complication. Gulliver rhonda stable for outpatient management. Considered stone but unlikely given CT findings. Considered ovarian pathology but pelvic exam less concerning and alternative dx more likely. 2. Headache. Low suspicion for SAH. No concern for meningitis. Low suspicion for mass lesion. Assessment: 1. Diveritulitis; 2. Primary Headache Plan: Discharge. Cipro/flagyl x 10d. Percocet prn. 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 Orville Martinez MD 02/14/13 0648 documented in this encounter Miscellaneous Notes * Miscellaneous - Provider, Scanning - 02/14/2013 12:03 PM EDT * Med Student H&P - Kayleigh Castillo - 02/14/2013 5:13 AM EDT Patient Name: Martha Rodriguez Patient Age: 48 y.o. Birthdate: 1965 Admit date: 02/14/2013 Attending Physician: Orville Martinez MD Chief Complaint: LLQ abdominal pain and headache x 4 days HPI: Martha Rodriguez is a 48 y.o. female who presents to the Emergency Department with complaints of abdominal pain and headache x 4 days. Her headache preceded her abdominal pain by 1 day, and she states that it is throbbing in nature, located behind her eyes, causing phonophobia and mild photophobia, and is an 8/10 in discomfort. The pain woke her from sleep 5 days ago at 3:30 AM, and has since been relatively constant even with treatment with Ibuprofen. She says this headache is different from her usual migraines, is a bit worse, and was associated with transient L arm numbness which has completely resolved. She presented to an OSH for it, but work-up was inconclusive. The patient's abdominal pain began 4 days ago and is located in her LLQ with some radiation to the L flank/back. She ranks the pain as a 10/10, and states that it is better when lying down and remaining still. At first she attributed the pain to constipation, but stool softeners have not improved her symptoms. She reports some nausea with movement, but no emesis. She has not had bloody stools. She denies and fevers, vomiting, diarrhea, urinary symptoms, dizziness, chest pain, shortness of breath, numbness, tingling, and rash. Her last menstrual period was 3 weeks ago, and she has regular cycles. Review of Systems Constitutional: Positive for chills and appetite change. Negative for fever. HENT: Positive for congestion. Negative for sore throat. Eyes: Negative for photophobia and visual disturbance. Respiratory: Negative for cough and shortness of breath. Cardiovascular: Negative for chest pain and leg swelling. Gastrointestinal: Positive for nausea, abdominal pain and constipation. Negative for vomiting, diarrhea, blood in stool and abdominal distention. Genitourinary: Positive for flank pain. Negative for dysuria, frequency and difficulty urinating. Neurological: Positive for headaches. Negative for dizziness, weakness, light- headedness and numbness. Physical Exam: BP 142/87 Pulse 111 Temp(Src) 36.9 ??C (98.4 ??F) (Oral) Resp 18 Wt 72.576 kg (160 lb) SpO2 97% LMP 01/24/2013 Physical Exam Constitutional: She appears well-developed and well-nourished. No distress. HENT: Head: Normocephalic and atraumatic. Eyes: Conjunctivae normal and EOM are normal. Pupils are equal, round, and reactive to light. Cardiovascular: Normal rate, regular rhythm, normal heart sounds and intact distal pulses. Pulmonary/Chest: Effort normal and breath sounds normal. Abdominal: Soft. Bowel sounds are normal. There is tenderness. There is no rebound and no guarding. LLQ TTP and RUQ TTP. L CVA tenderness. Musculoskeletal: Normal range of motion. She exhibits edema. Trace bilateral ankle edema Neurological: She is alert. Skin: Skin is warm and dry. ED Course: I reviewed the patients records. Medications and fluids administered: Toradol 30 mg IV once Metronidazole 500 mg once Ciprofloxacin 500 mg once I reviewed the patient's labwork: Recent Results (from the past 24 hour(s)) URINALYSIS WITH MICROSCOPIC Component Value Range Glucose UA Negative Negative mg/dL Protein UA Negative Bilirubin UA Negative Negative mg/dL Urobilinogen UA Normal pH UA 5.5 5.0 - 8.0 Blood UA Trace (*) Neg Ketones UA Negative Nitrite UA Negative Leukocytes UA Negative Appearance UA Clear Clear Spec Barrow UA 1.013 1.002 - 1.030 Color UA Yellow Yellow RBC UA <1 0 - 4 /HPF WBC UA 1 0 - 5 /HPF Bacteria UA Rare (*) None /HPF Squam Epith UA 2 <=4 /HPF Trans Epith UA <1 <=1 /HPF POCT URINE DIPSTICK Component Value Range POC Sp Barrow 1.020 1.002 - 1.030 POC pH, UA 5.0 5.0 - 8.5 POC Leuk, UA negative Negative - Negative POC Nitrite, UA negative Negative - Negative POC Protein, UA negative Negative - Negative mg/dL POC Glucose, UA negative Normal - Normal mg/dL POC Ketone, UA negative Negative - Negative POC Urobil, UA negative 0.2 - 1.0 mg/dL POC Bili, UA negative Negative - Negative POC Blood, UA positive Negative - Negative vernon/uL POCT URINE Component Value Range POC Urine HCG Negative (none) POC Control Internal Controls Acceptable (none) CBC (WITH DIFF) Component Value Range WBC 13.8 (*) 4.0 - 10.0 x10(3)/mcL RBC 4.88 3.93 - 5.22 x10(6)/mcL Hemoglobin 15.2 11.2 - 15.7 gm/dL Hematocrit 43.6 34.0 - 45.0 % MCV 89.3 79.0 - 94.0 fL MCH 31.1 26.6 - 32.2 pg MCHC 34.9 32.0 - 36.5 gm/dL Platelets 330 145 - 370 x10(3)/mcL RDWSD 40.3 35.0 - 46.0 fL RDWCV 12.5 10.9 - 14.4 % MPV 11.6 9.0 - 12.0 fL ELECTROLYTES PANEL Component Value Range Sodium 136 135 - 145 mmol/L Potassium 3.2 (*) 3.5 - 5.0 mmol/L Chloride 99 98 - 107 mmol/L CO2 22 22 - 31 mmol/L Anion Gap 15 5 - 15 mmol/L BUN Component Value Range BUN 14 8 - 18 mg/dL CREATININE Component Value Range Creatinine 0.94 0.70 - 1.20 mg/dL Estimated GFR >60 >=60 GLUCOSE, RANDOM Component Value Range Glucose Lvl 148 60 - 199 mg/dL BLUE TUBE HOLD Component Value Range Blue Hold Sample in lab. DIFFERENTIAL, AUTOMATED Component Value Range Neutrophils % 68.7 34.0 - 71.0 % Neutr Abs (ANC) 9.47 (*) 1.50 - 6.30 x10(3)/mcL Lymphocytes % 19.8 19.0 - 53.0 % Lymphocytes Abs 2.7 1.0 - 3.6 x10(3)/mcL Monocytes % 9.1 4.0 - 13.0 % Monocyte Abs 1.3 (*) 0.2 - 1.0 x10(3)/mcL Eosinophils % 2.2 0.0 - 7.0 % Eosinophils Abs 0.3 0.0 - 0.5 x10(3)/mcL Basophils % 0.1 0.0 - 2.0 % Basophils Abs 0.0 0.0 - 0.2 x10(3)/mcL Immature Gran % 0.10 0.00 - 0.66 % Lindy Gran Abs 0.02 0.00 - 0.05 x10(3)/mcL I reviewed the CT images: CT Abdomen & Pelvis w/o contrast 02/14/2013- Suspicious for diverticulitis Procedures performed by me: Bimanual exam with LLQ pain to outside palpation and minimal cervical motion tenderness. I discussed the case with: Dr. Martinez Assessment and Plan: Martha Rodriguez is a 48 y.o. female who presents to the ED with complaints of headache and LLQ abdominal pain x 4 days. Her LLQ tenderness on exam and CT abdomen suspicious for diverticulitis make diverticulitis the most likely cause of her symptoms. She will be treated with Toradol for pain management and discharged with Metronidazole and Ciprofloxacin for a 10 day course of antibiotics. She is encouraged to follow-up with her PCP within 1 week. #LLQ abdominal pain -Physical exam showed LLQ pain -CBC, BMP, UA wnl except elevated WBC of 13.8 and decreased K of 3.2. -Bimanual equivocal -CT abdomen suggestive of diverticulitis -Toradol 30 mg IV, Metronidazole 500 mg PO and Ciprofloxacin 500 mg PO administered in ED -Dispo: Discharge patient home with prescription for Metronidazole 500 mg BID and Ciprofloxacin 500mg BID for 10 day course, as well as Oxycodone 5 mg IR q4hr prn. Return to ED precautions discussedat length. Xavier Castillo, MS4 #[id number] * ED Triage - Anna Marie Pelayo RN - 02/14/2013 4:27 AM EDT Pt presents with intermittent LLQ pain and a GENTILE x 4 days. She has taken stool softeners and had a loose BM 1 hour ago. She has also had nausea without vomiting and reports taking Ibuprofen for her HAwithout any relief. documented in this encounter Plan of Treatment Not on file documented as of this encounter Procedures Procedure Name Priority Date/Time Associated Diagnosis Comments CT ABDOMEN AND PELVIS WO CONTRAST STAT 02/14/2013 5:51 AM EDT DIFFERENTIAL, AUTOMATED STAT 02/14/2013 4:40 AM EDT BLUE TUBE HOLD STAT 02/14/2013 4:40 AM EDT CREATININE Routine 02/14/2013 4:40 AM EDT CBC (WITH DIFF) STAT 02/14/2013 4:40 AM EDT BUN STAT 02/14/2013 4:40 AM EDT GLUCOSE, RANDOM STAT 02/14/2013 4:40 AM EDT ELECTROLYTES PANEL STAT 02/14/2013 4: 40 AM EDT POCT URINE STAT 02/14/2013 4:24 AM EDT POCT URINE DIPSTICK STAT 02/14/2013 4 :24 AM EDT URINALYSIS WITH REFLEX CULTURE STAT 02/14/2013 4:23 AM EDT documented in this encounter Results * CT abdomen & pelvis WO contrast (02/14/2013 5:51 AM EDT) Anatomical Region Laterality Modality Abdomen, Pelvis Computed Tomogra phy 02/14/2013 5:51 AM EDT Narrative 02/14/2013 8:[address] Abdomen / Pelvis Without Contrast Clinical History left LQ and left flank pain, colicky, hematuria, ? kidney stone Comparison None. Technique Noncontrast CT of the abdomen using stone protocol. ?? Findings No intrarenal stones are seen. There is no hydronephrosis or significant ureteral dilatation. There is no stone along the expected course of the ureters or within the bladder. There are multiple calcifications n the pelvis not in line with ureter, these finding is stable and is compatible with a phleboliths. There is no asymmetric renal enlargement or perinephric stranding. The appendix is visualized and is normal. ??No evidence of periappendiceal strandy change or genesis appendiceal fluid. There is no evidence for small bowel obstruction. Diffuse pericolonic fat stranding is seen in the left lower quadrant adjacent to ??multiple diverticula. No loculated collection to suggest an abscess. The small amount of free fluid is seen layering in the pelvis. ?? There is no intra-abdominal or pelvic free air. ?? Given the lack of contrast, the visualized portions of the liver, spleen, adrenal glands, and the pancreas are grossly unremarkable. The gallbladder is present. There is no abdominal pathologic adenopathy. Impression ? 1. Left lower quadrant pericolonic stranding in setting of diverticula concerning for diverticulitis. ? 2. There are no calculi seen in the kidneys, ureters or the bladder. Film and interpretation reviewed by the attending Procedure Note Dusty Swanson MD - 02/14/[address] Abdomen / Pelvis Without Contrast Clinical History left LQ and left flank pain, colicky, hematuria, ? kidney stone Comparison None. Technique Noncontrast CT of the abdomen using stone protocol. Findings No intrarenal stones are seen. There is no hydronephrosis or significant ureteral dilatation. There is no stone along the expected course of theureters or within the bladder. There are multiple calcifications n the pelvis notin line with ureter, these finding is stable and is compatible with aphleboliths. There is no asymmetric renal enlargement or perinephric stranding. The appendix is visualized and is normal. No evidence of periappendiceal strandy change or genesis appendiceal fluid. There is no evidence for smallbowel obstruction. Diffuse pericolonic fat stranding is seen in the left lower quadrant adjacent to multiple diverticula. No loculated collection tosuggest an abscess. The small amount of free fluid is seen layering in the pelvis. There is no intra-abdominal or pelvic free air. Given the lack of contrast, the visualized portions of the liver, spleen, adrenal glands, and the pancreas are grossly unremarkable. The gallbladderis present. There is no abdominal pathologic adenopathy. Impression 1. Left lower quadrant pericolonic stranding in setting ofdiverticula concerning for diverticulitis. 2. There are no calculi seen in the kidneys, ureters or thebladder. Film and interpretation reviewed by the attending Orville Martinez MD IMG CT ORDERABLES * (ABNORMAL) Differential, Automated (02/14/2013 4:40 AM EDT) Pathologist [facility] Neutrophils % 68.7 34.0 - 71.0 % CERNER MILLENNIUM Neutr Abs (ANC) 9.47(H) 1.50 - 6.30 x10(3)/mc L CERNER MILLENNIUM Lymphocytes % 19.8 19.0 - 53.0 % CERNER MILLENNIUM Lymphocytes Abs 2.7 1.0 - 3.6 x10(3)/mc L CERNER MILLENNIUM Monocytes % 9.1 4.0 - 13.0 % CERNER MILLENNIUM Monocyte Abs 1.3(H) 0.2 - 1.0 x10(3)/mc L CERNER MILLENNIUM Eosinophils % 2.2 0.0 - 7.0 % CERNER MILLENNIUM Eosinophils Abs 0.3 0.0 - 0.5 x10(3)/mc L CERNER MILLENNIUM Basophils % 0.1 0.0 - 2.0 % CERNER MILLENNIUM Basophils Abs 0.0 0.0 - 0.2 x10(3)/mc L CERNER MILLENNIUM Immature Gran % 0.10 0.00 - 0.66 % CERNER MILLENNIUM Comment: Immature granulocytes(IG's)percentage and absolute count will include metamyelocytes, myelocytes, and promyelocytes. Blood smears from CBCs yielding IG's will be scanned manually for concordance. If this scan disagrees with the automated IG or if promyelocytes are noted, a manual differential will be performed. Lindy Gran Abs 0.02 0.00 - 0.05 x10(3)/mc L CERNER MILLENNIUM Blood specimen (specimen) 02/14/2013 4:40 AM EDT 02/14/2013 4:48 AM EDT Orville Martinez MD HEMATOLOGY ORDERABLE S CERNER MILLENNIUM * Blue Tube HOLD (02/14/2013 4:40 AM EDT) Pathologist [facility] Blue Hold Sample in lab. CERNER MILLENNIUM Blood specimen (specimen) 02/14/2013 4:40 AM EDT 02/14/2013 4:48 AM EDT Orville Martinez MD HEMATOLOGY ORDERABLE S Performing Organization Address [facility] Co de Phone Number [facility] * Glucose, random (02/14/2013 4:40 AM EDT) Glucose Lvl 148 60 - 199 mg/dL [facility] Comment:Diabetes: >=200 mg/d L plus symptoms Blood specimen (specimen) 02/14/2013 4:40 AM EDT 02/14/2013 4:48 AM EDT Narrative Resulting Agency Comment Spec In Lab Orville Martinez MD CHEMISTRY ORDERABLES Performing Organization Address [facility] de Phone Number [facility] * Creatinine (02/14/2013 4:40 AM EDT) Creatinine 0.94 0.70 - 1.20 mg/dL [facility] Comment: Please note that the pediatric reference intervals supplied above were not validated at [facility]. Results from pediatric patients should be interpreted in conjunction to the patient's age, height and muscle mass. Estimated GFR >60 >=60 [facility] Comment: This estimated GFR (eGFR) value was calculated using the MDRD equation which has been validated on patients between the ages of 18 and 70. The MDRD should not be used to assess kidney function in patients < 18 years of age or in patients with extremes of body mass, or in patients with acute kidney failure. This value should be multiplied by 1.2 for patients. For further information please copy and paste the following links into your internet browser. http://www.nkdep.nih.gov/lab-evaluation.shtml http://www.kidney.org/professionals/ Blood specimen (specimen) 02/14/2013 4:40 AM EDT 02/14/2013 4:48 AM EDT Narrative Resulting Agency Comment Spec In Lab Orville Martinez MD CHEMISTRY ORDERABLES Performing Organization Address [facility] de Phone Number CERNER MILLENNIUM * BUN (02/14/2013 4:40 AM EDT) BUN 14 8 - 18 mg/dL CERNER MILLENNIUM Blood specimen (specimen) 02/14/2013 4:40 AM EDT 02/14/2013 4:48 AM EDT Narrative Resulting Agency Comment Spec In Lab Orville Martinez MD CHEMISTRY ORDERABLES Performing Organization Address [facility] de Phone Number CERNER MILLENNIUM * (ABNORMAL) Electrolytes panel (02/14/2013 4:40 AM EDT) Sodium 136 135 - 145 mmol/L CERNER MILLENNIUM Potassium 3.2(L) 3.5 - 5.0 mmol/L CERNER MILLENNIUM Comment: Please note: ??Patients with WBC >100,000 may have falsely elevated Potassium levels. ??For accurate Potassium quantification in these patients send serum separator tube (gold top) for subsequent determinations. ??Contact the Clinical Chemistry Laboratory if there are any questions. Chloride 99 98 - 107 mmol/L CERNER MILLENNIUM CO2 22 22 - 31 mmol/L CERNER MILLENNIUM Anion Gap 15 5 - 15 mmol/L CERNER MILLENNIUM Blood specimen (specimen) 02/14/2013 4:40 AM EDT 02/14/2013 4:48 AM EDT Narrative Resulting Agency Comment Spec In Lab Orville Martinez MD CHEMISTRY ORDERABLES Performing Organization Address [facility] de Phone Number CERNER MILLENNIUM * (ABNORMAL) CBC (with Diff) (02/14/2013 4:40 AM EDT) WBC 13.8(H) 4.0 - 10.0 x10(3)/mcL CERNER MILLENNIUM RBC 4.88 3.93 - 5.22 x10(6)/mcL CERNER MILLENNIUM Hemoglobin 15.2 11.2 - 15.7 gm/dL CERNER MILLENNIUM Hematocrit 43.6 34.0 - 45.0 % CERNER MILLENNIUM MCV 89.3 79.0 - 94.0 fL [facility] MCH 31.1 26.6 - 32.2 pg [facility] MCHC 34.9 32.0 - 36.5 gm/dL [facility] Platelets 330 145 - 370 x10(3)/mcL [facility] RDWSD 40.3 35.0 - 46.0 fL [facility] RDWCV 12.5 10.9 - 14.4 % [facility] MPV 11.6 9.0 - 12.0 fL [facility] Blood specimen (specimen) 02/14/2013 4:40 AM EDT 02/14/2013 4:48 AM EDT Narrative Resulting Agency Comment Spec In Lab Orville Martinez MD HEMATOLOGY ORDERABLE S [facility] * POCT urine (02/14/2013 4:24 AM EDT) Pathologist [facility] POC Urine HCG Negative (none) POC Control Internal Controls Acceptable (none) Orville Martinez MD POINT OF CARE TEST O RDERABLES * POCT urine dipstick (02/14/2013 4:24 AM EDT) [facility] POC Sp Barrow 1.020 1.002 - 1.030 POC pH, UA 5.0 5.0 - 8.5 POC Leuk, UA negative Negative - Negative POC Nitrite, UA negative Negative - Negative POC Protein, UA negative Negative - Negative mg/dL POC Glucose, UA negative Normal - Normal mg/dL POC Ketone, UA negative Negative - Negative POC Urobil, UA negative 0.2 - 1.0 mg/dL POC Bili, UA negative Negative - Negative POC Blood, UA positive Negative - Negative vernon/uL Orville Martinez MD POINT OF CARE TEST O RDERABLES * (ABNORMAL) Urinalysis with microscopic (02/14/2013 4:23 AM EDT) [facility] Glucose UA Negative Negative mg/dL [facility] Protein UA Negative mg/dL [facility] Bilirubin UA Negative Negative mg/dL [facility] Urobilinogen UA Normal mg/dL [facility] pH UA 5.5 5.0 - 8.0 [facility] Blood UA Trace(A) Neg [facility] Ketones UA Negative mg/dL [facility] Nitrite UA Negative [facility] Leukocytes UA Negative [facility] Appearance UA Clear Clear [facility] Spec Barrow UA 1.013 1.002 - 1.030 [facility] Color UA Yellow Yellow [facility] RBC UA <1 0 - 4 /HPF [facility] WBC UA 1 0 - 5 /HPF [facility] Bacteria UA Rare(A) None /HPF [facility] Squam Epith UA 2 <=4 /HPF [facility] Trans Epith UA <1 <=1 /HPF [facility] Urine specimen (specimen) 02/14/2013 4:23 AM EDT 02/14/2013 4:32 AM EDT Narrative Resulting Agency Comment Spec In Lab Orville Martinez MD URINE ORDERABLES [facility] documented in this encounter Visit Diagnoses Diagnosis Diverticulitis- Primary Diverticulitis of colon (without mention of hemorrhage) Headache(784.0) Headache HTN (hypertension) Unspecified essential hypertension Migraine headache Migraine, unspecified, without mention of intractable migraine without mention of status migrainosus documented in this encounter Administered Medications Inactive Administered Medications - up to 3 most recent administrations Medication Order MAR Action Action Date Dose Rate Site ciprofloxacin (CIPRO) tablet 500 mg 500 mg, Oral, ONCE, 1 dose, On Sun02/14/13 at 0630, STAT, Indication for (Active or Suspected): for GI/Intra-abdominal Given 02/14/2013 6:12 AM EDT 500 mg ketorolac (TORADOL) injection 30 mg 30 mg, Intravenous, ONCE, 1 dose, On Sun02/14/13 at 0630, STAT Given 02/14/2013 6:10 AM EDT 30 mg metroNIDAZOLE (FLAGYL) tablet 500 mg 500 mg, Oral, ONCE, 1 dose, On Sun02/14/13 at 0630, STAT, Indication for (Active or Suspected): for GI/Intra-abdominal Given 02/14/2013 6:12 AM EDT 500 mg documented in this encounter Active and Recently Administered Medications Times are shown in EDT. Scheduled Medication Order 02/12/2013 02/13/2013 02/14/2013 ciprofloxacin (CIPRO) tablet 500 mg (COMPLETED) 500 mg, Oral, ONCE, 1 dose, On Sun02/14/13 at 0630, STAT, Indication for (Active or Suspected): for GI/Intra-abdominal 0612 (Given - Provid er: Anna Marie Pelayo RN) ketorolac (TORADOL) injection 30 mg (COMPLETED) 30 mg, Intravenous, ONCE, 1 dose, On Sun02/14/13 at 0630, STAT 0610 (Given - Provid er: Anna Marie Pelayo RN) metroNIDAZOLE (FLAGYL) tablet 500 mg (COMPLETED) 500 mg, Oral, ONCE, 1 dose, On Sun02/14/13 at 0630, STAT, Indication for (Active or Suspected): for GI/Intra-abdominal 0612 (Given - Provid er: Anna Marie Pelayo RN) documented in this encounter Care Teams Machining Department Supervisor Relationship Specialty Start Date End Date None None PCP - General 02/14/13 03/29/13 documented as of this encounter
--- OUTSIDE RECORDS SUMMARY | 2024-02-17 09:36 | XMS_ITS | Encounter Summary ---
Author Organization [facility] [place] [address] Care Team Providers Care Complex Care Nurse Name Role Phone Nat Baker MD Primary Care Provider [phone] Encounter Details Date Type Department Care Team (Late st Contact Info) Description 11/29/2018 10:45 PM EDT Ancillary Procedure Radiology at [facility] [address] [place] [phone] Nat Baker MD [address] [place] [address] Social History Tobacco Use Types Packs/Day Years [...] Priority Date/Time Associated Diagnosis Comments FILM LIBRARY STORAGE ONLY MR HEAD Routine 11/29/2018 10:44 PM EDT documented in this encounter Results * Film Library- Storage Only MR Head (11/29/2018 10:44 PM EDT) Narrative [facility] - 11/29/2018 10:44 PM EDT This exam is auto-finalizing. It's purpose is for storage only. Nat Baker MD [facility] FILM LIBRARY ORD ERABLES Performing Organization Address City/State/[facility] Co de Phone Number [facility] [place], [place] documented in this encounter Visit Diagnoses Not on filedocumented in this encounter Care Teams Complex Care Nurse Relationship Specialty Start Date End Date Nat Baker MD [address] [place] [address] PCP - General 11/11/18 02/27/19 documented as of this encounter
--- OUTSIDE RECORDS SUMMARY | 2024-02-17 09:36 | XMS_ITS | Encounter Summary ---
Author Organization [facility] [place] [address] Care Team Providers Care Workers' Compensation Magistrate Name Role Phone Nat Baker MD Primary Care Provider [phone] Encounter Details Date Type Department Care Team (Late st Contact Info) Description 11/29/2018 11:05 PM EDT Ancillary Procedure Radiology at [facility] [address] [place] [phone] Nat Baker MD [address] [place] [address] Social History Tobacco Use Types Packs/Day Years [...] Diagnosis Comments FILM LIBRARY STORAGE ONLY MR SPINE Routine 11/29/2018 10:55 PM EDT documented in this encounter Results * Film Library- Storage Only MR Spine (11/29/2018 10:55 PM EDT) Narrative [facility] - 11/29/2018 10:55 PM EDT This exam is auto-finalizing. It's purpose is for storage only. Nat Baker MD [facility] FILM LIBRARY ORD ERABLES Performing Organization Address City/State/[facility] Co de Phone Number [facility] [place], [place] documented in this encounter Visit Diagnoses Not on filedocumented in this encounter Care Teams Workers' Compensation Magistrate Relationship Specialty Start Date End Date Nat Baker MD [address] [place] [address] PCP - General 11/11/18 02/27/19 documented as of this encounter
--- OUTSIDE RECORDS SUMMARY | 2024-02-17 09:36 | XMS_ITS | Encounter Summary ---
Author Organization [facility] [address] Care Team Providers Care Marketing Content Manager Name Role Phone Nat Baker MD Primary Care Provider [phone] Reason for Visit * Reason Comments Dental Pain Encounter Details Date Type Department Care Team (Late st Contact Info) Description 03/30/2013 4:19 PM EDT - 03/30/2013 6:15 PM EDT Emergency [place] [address] Stew Lira PA [facility] [place] [address] Brian Rios MD [facility] [place] [address] Broken tooth (Primary Dx) Discharge Disposition: Home Social History Tobacco Use [...] Sign Reading Time Taken Comments Blood Pressure 127/77 03/30/2013 4:35 PM EDT Pulse 81 03/30/2013 4:35 PM EDT Temperature 36.5 ??C (97.7 ??F) 03/30/2013 4:35 PM ED T Respiratory Rate 20 03/30/2013 4:35 PM EDT Oxygen Saturation - - Inhaled Oxygen Concentration - - Weight - - Height - - Body Mass Index - - documented in this encounter Discharge Instructions * Discharge Instructions* Stew Lira PA - 03/30/2013 5:57 PM EDT #1. Follow instructions from printed hand out. #2. Apply dental wax as needed. #3 .Follow up with a Dentist ANUP, see handouts Alternatives for Dental Care in [place] and Low Cost Dental Clinics. #4. Follow up in the Emergency Dept. As needed. * Attachments The following attachments cannot be sent through Care Everywhere. * BROKEN TOOTH: AFTER YOUR VISIT (ARMENIAN) documented in this encounter Medications at Time of Discharge Medication Sig Dispensed Refills Start Date End Date lisinopril (PRINIVIL;ZESTRIL) 20 mg tablet Take 20 mg by mouth daily. atenolol (TENORMIN) 25 mg tablet Take 25 mg by mouth daily. OXYcodone (ROXICODONE) 5 mg immediate release tablet Take 1-2 tablets by mouth every 4 hours as needed for Pain. 20 tablet 0 02/14/2013 02/07/2022 documented as of this encounter ED Notes * Stew Lira PA - 03/30/2013 5:42 PM EDT Chief Complaint Patient presents with ??? Dental Pain The history is provided by the patient. The patient is in the ED with a broken tooth, the jagged edge is causing pain on her tongue. No Known Allergies Review of Systems Constitutional: Negative for fever and chills. Respiratory: Negative for cough, choking, chest tightness, shortness of breath, wheezing and stridor. Physical Exam Nursing note and vitals reviewed. Constitutional: She appears well-developed and well-nourished. Tooth #31 is jagged. Not carried, no sign of infection . Procedures MDM 48 yo feamle with a jagged tooth. Given dental wax and hand out for Alternatives in Dental Care in [place] and Low cost Dental Clinics. ED Course: Stew Lira PA 03/30/13 1752 * Sophie Jones RN - 03/30/2013 5:41 PM EDT Ambulatory from triage with reports of right-sided broken tooth yesterday which is causing pain to her tongue. Awaiting evaluation. documented in this encounter Miscellaneous Notes * Discharge Summary - Provider, Scanning - 04/03/2013 8:15 AM EDT * Miscellaneous - Provider, Scanning - 03/30/2013 11:57 PM EDT * ED Triage - Heather Samaniego RN - 03/30/2013 4:35 PM EDT Broken back tooth in the back of her mouth. No pain but the jagged edge is cutting her tongue. documented in this encounter Plan of Treatment Not on file documented as of this encounter Visit Diagnoses Diagnosis Broken tooth- Primary Open wound of tooth (broken) (fractured) (due to trauma), without mention of complication documented in this encounter Care Teams Marketing Content Manager Relationship Specialty Start Date End Date Nat Baker MD [place] [address] PCP - General 03/30/13 11/10/18 documented as of this encounter
--- OUTSIDE RECORDS SUMMARY | 2024-02-17 09:36 | XMS_ITS | Encounter Summary ---
[place] [address] Care Team Providers Care Ham Boner Name Role Phone Nat Baker MD Primary Care Provider [phone] Encounter Details Date Type Department Care Team (Late st Contact Info) Description 04/30/2014 Orders Only Radiology and Cardiology Results [address] [place] [address] Apd Conversion, Results Provider, Social History Tobacco Use Types Packs/Day [...] Procedure Name Priority Date/Time Associated Diagnosis Comments VITAMIN D, 25-HYDROXY Routine 04/30/2014 documented in this encounter Results * (ABNORMAL) Vitamin D, 25-Hydroxy (04/30/2014) 25-OH Vit D Total 21.6(ExtL) 30.0 - 100.0 CONVERSION 04/30/2014 Results Provider Apd Conversion MD GUILLERMO VINSON ORDERABLES CONVERSION documented in this encounter Visit Diagnoses Not on filedocumented in this encounter Care Teams Ham Boner Relationship Specialty Start Date End Date Nat Baker MD [address] [place] [address] PCP - General 11/11/18 02/27/19 documented as of this encounter
--- OUTSIDE RECORDS SUMMARY | 2024-02-17 09:36 | XMS_ITS | Encounter Summary ---
Author Organization [facility] [place] [address] Care Team Providers Care Loan Assistant Name Role Phone Nat Baker MD Primary Care Provider [phone] Encounter Details Date Type Department Care Team (Late st Contact Info) Description 04/07/2014 Abstract C[address]lle Jones Conversion Results [address] [place] [phone] Apd Conversion, Flowsheet Provider, Social History Tobacco [...] Sign Reading Time Taken Comments Blood Pressure 158/110 04/07/2014 11:38 AM EDT Sourced from APD Conversion Pulse - - Temperature - - Respiratory Rate - - Oxygen Saturation - - Inhaled Oxygen Concentration - - Weight 93.2 kg (205 lb 7.5 oz) 04/07/2014 11:38 AM EDT Sourced from APD Conversion Height - - Body Mass Index - - documented in this encounter Plan of Treatment Not on file documented as of this encounter Visit Diagnoses Not on filedocumented in this encounter Care Teams Loan Assistant Relationship Specialty Start Date End Date Nat Baker MD [address] [place] [address] PCP - General 11/11/18 02/27/19 documented as of this encounter
--- OUTSIDE RECORDS SUMMARY | 2024-02-17 09:36 | XMS_ITS | Encounter Summary ---
Author Organization [facility] [address] Care Team Providers Care Hot Iron Worker Name Role Phone Nat Baker MD Primary Care Provider [phone] Encounter Details Date Type Department Care Team (Late st Contact Info) Description 11/29/2018 10:55 PM EDT Ancillary Procedure Radiology at [facility] [address] [place] [phone] Nat Baker MD [address] [place] [address] Social History Tobacco Use Types Packs/Day Years [...] Associated Diagnosis Comments FILM LIBRARY STORAGE ONLY CT HEAD AND SPINE Routine 11/29/2018 10:51 PM EDT documented in this encounter Results * Film Library- Storage Only CT Head And Spine (11/29/2018 10:51 PM EDT) Narrative [facility] - 11/29/2018 10:51 PM EDT This exam is auto-finalizing. It's purpose is for storage only. Nat Baker MD G FILM LIBRARY ORD ERABLES [facility] [place], [place] documented in this encounter Visit Diagnoses Not on filedocumented in this encounter Care Teams Hot Iron Worker Relationship Specialty Start Date End Date Nat Baker MD [address] [place] [address] PCP - General 11/11/18 02/27/19 documented as of this encounter
--- OUTSIDE RECORDS SUMMARY | 2024-02-17 09:36 | XMS_ITS | Encounter Summary ---
Author Organization [facility] [place] [address] Care Team Providers Care Apartment Locator Name Role Phone Nat Baker MD Primary Care Provider [phone] Encounter Details Date Type Department Care Team (Late st Contact Info) Description 04/28/2014 Abstract [address] Jones Conversion Results [address] [place] [phone] Apd Conversion, Flowsheet Provider, Social History Tobacco [...] Sign Reading Time Taken Comments Blood Pressure 110/78 04/28/2014 11:42 AM EDT Sourced from APD Conversion Pulse - - Temperature - - Respiratory Rate - - Oxygen Saturation - - Inhaled Oxygen Concentration - - Weight 91.8 kg (202 lb 6.1 oz) 04/28/2014 11:42 AM EDT Sourced from APD Conversion Height - - Body Mass Index - - documented in this encounter Plan of Treatment Not on file documented as of this encounter Visit Diagnoses Not on filedocumented in this encounter Care Teams Apartment Locator Relationship Specialty Start Date End Date Nat Baker MD [address] [place] [address] PCP - General 11/11/18 02/27/19 documented as of this encounter
--- OUTSIDE RECORDS SUMMARY | 2024-02-17 09:36 | XMS_ITS | Encounter Summary ---
[place] [address] Care Team Providers Care Toaster Operator Name Role Phone Nat Baker MD Primary Care Provider [phone] Encounter Details Date Type Department Care Team (Late st Contact Info) Description 11/29/2018 11:00 PM EDT Ancillary Procedure Radiology at [facility] [address] [place] [phone] Nat Baker MD [address] [place] [address] Social History Tobacco Use Types Packs/Day Years [...] Diagnosis Comments FILM LIBRARY STORAGE ONLY CT CHEST Routine 11/29/2018 10:51 PM EDT documented in this encounter Results * Film Library- Storage Only CT Chest (11/29/2018 10:51 PM EDT) Narrative [facility] - 11/29/2018 10:51 PM EDT This exam is auto-finalizing. It's purpose is for storage only. Nat Baker MD G FILM LIBRARY ORD ERABLES Performing Organization Address City/State/[facility] Co de Phone Number [facility] [place], [place] documented in this encounter Visit Diagnoses Not on filedocumented in this encounter Care Teams Toaster Operator Relationship Specialty Start Date End Date Nat Baker MD [address] [place] [address] PCP - General 11/11/18 02/27/19 documented as of this encounter
--- OUTSIDE RECORDS SUMMARY | 2024-02-17 09:36 | XMS_ITS | Encounter Summary ---
Author Organization [facility] [place] [address] Care Team Providers Care Commercial Loan Administrator Name Role Phone Nat Baker MD Primary Care Provider [phone] Encounter Details Date Type Department Care Team (Late st Contact Info) Description 04/30/2014 Orders Only Radiology and Cardiology Results [address] [place] [address] Apd Conversion, Results Provider, Social [...] Procedure Name Priority Date/Time Associated Diagnosis Comments TSH Routine 04/30/2014 documented in this encounter Results * (ABNORMAL) TSH (04/30/2014) TSH 1.040(Exte rnal Lab) 0.358 - 3.74 DORA JONES CONVERSION 04/30/2014 Results Provider Apd Conversion MD GUILLERMO VINSON ORDERABLES DORA JONES CONVERSION documented in this encounter Visit Diagnoses Not on filedocumented in this encounter Care Teams Commercial Loan Administrator Relationship Specialty Start Date End Date Nat Baker MD [address] [place] [place] [address] PCP - General 11/11/18 02/27/19 documented as of this encounter
--- OUTSIDE RECORDS SUMMARY | 2024-02-17 09:36 | XMS_ITS | Encounter Summary ---
[place] [address] Care Team Providers Care Fmd Teacher Name Role Phone Nat Baker MD Primary Care Provider [phone] Encounter Details Date Type Department Care Team (Late st Contact Info) Description 08/06/2015 Orders Only Radiology and Cardiology Results [address] [place] [address] Apd Conversion, Results Provider, Social [...] Associated Diagnosis Comments VITAMIN D, 25-HYDROXY Routine 08/06/2015 documented in this encounter Results * (ABNORMAL) Vitamin D, 25-Hydroxy (08/06/2015) 25-OH Vit D Total 18.4(ExtL) 30.0 - 100.0 CONVERSION 08/06/2015 Results Provider Apd Conversion MD GUILLERMO VINSON ORDERABLES CONVERSION documented in this encounter Visit Diagnoses Not on filedocumented in this encounter Care Teams Fmd Teacher Relationship Specialty Start Date End Date Nat Baker MD [address] [place] [address] PCP - General 11/11/18 02/27/19 documented as of this encounter
--- OUTSIDE RECORDS SUMMARY | 2024-02-17 09:36 | XMS_ITS | Encounter Summary ---
Author Organization [facility] Address [address] [facility] [place] [address] Care Team Providers Care Rn Rehab Name Role Phone Nat Baker MD Primary Care Provider [phone] Encounter Details Date Type Department Care Team (Late st Contact Info) Description 04/20/2014 Interpretation Only Radiology [address] [facility] [place] [phone] Unknown None Social History Tobacco Use Types Packs/Day Years [...] Procedure Name Priority Date/Time Associated Diagnosis Comments XR CHEST PA AND LATERAL Routine 04/20/2014 9:20 AM EDT documented in this encounter Results * XR Chest PA & Lateral (Generic) (04/20/2014 9:20 AM EDT) Anatomical Region Laterality Modality Chest N/A Radiographic Re ging 04/20/2014 9:20 AM EDT Narrative 04/20/2014 9:20 AM EDT APD Historical Result Principal Cleaning Supervisor: ??ADARSH ??NASCIMENTO CHEST - TWO VIEWS: HISTORY: ??Chest pain. TECHNIQUE: ??PA and lateral views of the chest are performed and interpreted without the benefit of prior studies for comparison. FINDINGS: Heart and mediastinum are normal in size and contour, allowing for slightly low lung volumes. ?? Vascularity is normal. ??Lungs are grossly clear. ??Degenerative change is present in the thoracic spine. IMPRESSION: No acute cardiopulmonary abnormality. Adarsh Nascimento MD Luke [id number] CC: Procedure Note Unknown - 01/20/2019 APD Historical Result Principal Cleaning Supervisor: ADARSH NASCIMENTO CHEST - TWO VIEWS: HISTORY: Chest pain. TECHNIQUE: PA and lateral views of the chest are performed andinterpreted without the benefit of prior studies for comparison. FINDINGS: Heart and mediastinum are normal in size and contour, allowing forslightly low lung volumes. Vascularity is normal. Lungs are grossly clear. Degenerative change ispresent in the thoracic spine. IMPRESSION: No acute cardiopulmonary abnormality. Adarsh Nascimento MD [place] [id number] CC: Unknown IMG DX ORDERABLES documented in this encounter Visit Diagnoses Not on filedocumented in this encounter Care Teams Rn Rehab Relationship Specialty Start Date End Date Nat Baker MD [address] [place] [address] PCP - General 11/11/18 02/27/19 documented as of this encounter
--- OUTSIDE RECORDS SUMMARY | 2024-02-17 09:36 | XMS_ITS | Encounter Summary ---
Author Organization [facility] [place] [address] Care Team Providers Care Steward/Stewardess Bath Name Role Phone Nat Baker MD Primary Care Provider Encounter Details Date Type Department Care Team (Late st Contact Info) Description 08/06/2015 Orders Only Radiology and Cardiology Results [address] [place] [address] Apd Conversion, Results Provider, Social [...] Priority Date/Time Associated Diagnosis Comments TSH Routine 08/06/2015 documented in this encounter Results * (ABNORMAL) TSH (08/06/2015) TSH 2.040(Exte rnal Lab) 0.358 - 3.740 DORA JONES CONVERSION 08/06/2015 Results Provider Apd Conversion MD GUILLERMO VINSON ORDERABLES DORA JONES CONVERSION documented in this encounter Visit Diagnoses Not on filedocumented in this encounter Care Teams Steward/Stewardess Bath Relationship Specialty Start Date End Date Nat Baker MD [address] [place] [address] PCP - General 11/11/18 02/27/19 documented as of this encounter
--- OUTSIDE RECORDS SUMMARY | 2024-02-17 09:36 | XMS_ITS | Encounter Summary ---
[place] [address] Care Team Providers Care Rn Flight Name Role Phone Nat Baker MD Primary Care Provider Reason for Visit * Reason Comments Cough Encounter Details Date Type Department Care Team (Late st Contact Info) Description 04/03/2015 12:15 PM EDT - 04/03/2015 2:50 PM EDT [place] [address] [facility] [place] [address] Acute URI Discharge Disposition: Home Social History Tobacco Use [...] Sign Reading Time Taken Comments Blood Pressure 143/84 04/03/2015 12:18 PM EDT Pulse 81 04/03/2015 12:18 PM EDT Temperature 36.8 ??C (98.2 ??F) 04/03/2015 12:18 PM E DT Respiratory Rate 16 04/03/2015 12:18 PM EDT Oxygen Saturation 99% 04/03/2015 12:18 PM EDT Inhaled Oxygen Concentration - - Weight 90.7 kg (200 lb) 04/03/2015 12:18 PM EDT Height - - Body Mass Index - - documented in this encounter Discharge Instructions * Discharge Instructions* Dorian Brooke MD - 04/03/2015 1:46 PM EDT Images from the original note were not included. [facility] Upper Respiratory Infection (Cold): After Your Visit Your Care Instructions An upper respiratory infection, or URI, is an infection of the nose, sinuses, or throat. URIs are spread by coughs, sneezes, and direct contact. The common cold is the most frequent kind of URI. The flu and sinus infections are other kinds of URIs. Almost all URIs are caused by viruses. Antibiotics won't cure them. But you can treat most infections with home care. This may include drinking lots of fluids and taking sfjz-wee-gkimyna pain medicine. You will probably feel better in 4 to 10 days. The doctor has checked you carefully, but problems can develop later. If you notice any problems ornew symptoms, get medical treatment right away. Follow-up care is a jean-baptiste part of your treatment and safety. Be sure to make and go to all appointments, and call your doctor if you are having problems. It's also a good idea to know your test resultsand keep a list of the medicines you take. How can you care for yourself at home? ?? To prevent dehydration, drink plenty of fluids, enough so that your urine is light yellow or clear like water. Choose water and other caffeine-free clear liquids until you feel better. If you havekidney, heart, or liver disease and have to limit fluids, talk with your doctor before you increasethe amount of fluids you drink. ?? Take an yunj-usg-vqtxypc pain medicine, such as acetaminophen (Tylenol), ibuprofen (Advil, Motrin), or naproxen (Aleve). Read and follow all instructions on the label. ?? If your doctor prescribed antibiotics, take them as directed. Do not stop taking them just because you feel better. You need to take the full course of antibiotics. ?? Before you use cough and cold medicines, check the label. These medicines may not be safe for young children or for people with certain health problems. ?? Be careful when taking hnqq-qae-bgkscej cold or flu medicines and Tylenol at the same time. Manyof these medicines have acetaminophen, which is Tylenol. Read the labels to make sure that you are not taking more than the recommended dose. Too much acetaminophen (Tylenol) can be harmful. ?? Get plenty of rest. ?? Do not smoke or allow others to smoke around you. If you need help quitting, talk to your doctorabout stop-smoking programs and medicines. These can increase your chances of quitting for good. When should you call for help? Call 911 anytime you think you may need emergency care. For example, call if: ?? You have severe trouble breathing. Call your doctor now or seek immediate medical care if: ?? You seem to be getting much sicker. ?? You have new or worse trouble breathing. ?? You have a new or higher fever. ?? You have a new rash. Watch closely for changes in your health, and be sure to contact your doctor if: ?? You have a new symptom, such as a sore throat, an earache, or sinus pain. ?? You cough more deeply or more often, especially if you notice more mucus or a change in the color of your mucus. ?? You do not get better as expected. Where can you learn more? Visit our health information library at [email or web address] You can also view health information on [employer], your personal patient account. Log in or sign up today. Enter K520 in the search box to learn more about Upper Respiratory Infection (Cold): After Your Visit. ?? [id number] [employer]. Care instructions adapted under license by [facility]. This care instruction is for use with your licensed healthcare professional. If you have questions about a medical condition or this instruction, always ask your healthcare professional. [employer] disclaims any warranty or liability for your use of this information. Content Version: 10.4.397136; Current as of: March 31, 2014 documented in this encounter Medications at Time of Discharge Medication Sig Dispensed Refills Start Date End Date benzonatate (TESSALON) 100 mg Capsule Take 1 [...] as of this encounter ED Notes * Dorian Brooke MD - 04/03/2015 1:02 PM EDT Chief Complaint Patient presents with ??? Cough HPI Comments: 50 yof presenting w/ cough. Problematic x 3d. No sob. Nasal congestion. Greenish drainage. Sharp bout of coughing produced pain in R post back. No abd pain. No pain or swelling in legs.No hx DVT or PE. No prolonged immobility. Pt has felt warm but no recorded fevers. No recent injury. No other illness. No vomiting or diarrhea, urine problems. The history is provided by the patient. No exercise scientist was used. No Known Allergies Review of Systems Constitutional: Negative for fever, chills and diaphoresis. HENT: Positive for postnasal drip and rhinorrhea. Negative for congestion and sore throat. Eyes: Negative for discharge and visual disturbance. Respiratory: Positive for cough. Negative for shortness of breath. Cardiovascular: Negative for chest pain. Gastrointestinal: Negative for nausea, vomiting, abdominal pain and diarrhea. Genitourinary: Negative for dysuria and hematuria. Musculoskeletal: Positive for back pain. Negative for joint swelling and arthralgias. Skin: Negative for rash. Neurological: Negative for weakness and numbness. Psychiatric/Behavioral: Negative for dysphoric mood. The patient is not nervous/anxious. All other systems reviewed and are negative. Physical Exam Constitutional: She is oriented to person, place, and time. She appears well- developed and well-nourished. HENT: Head: Normocephalic and atraumatic. Eyes: Conjunctivae are normal. Neck: Neck supple. Cardiovascular: Normal rate, regular rhythm and normal heart sounds. Pulmonary/Chest: Effort normal and breath sounds normal. Abdominal: Soft. Bowel sounds are normal. She exhibits no distension and no mass. There is no tenderness. Musculoskeletal: Normal range of motion. She exhibits no edema. Mild tenderness and spasm in R lumbar paraspinous musculature. Neurological: She is alert and oriented to person, place, and time. Skin: Skin is warm and dry. No rash noted. Psychiatric: She has a normal mood and affect. Her behavior is normal. Judgment and thought contentnormal. Nursing note and vitals reviewed. Procedures MDM Number of Diagnoses or Management Options ED Course: 50 yof w/ cough. WELLS neg for PE. XR Chest Routine PA & Lateral (Final result) Result time: 04/03/15 13:29:34 Procedure changed from XR Generic Chest Final result by Department, Radiology (04/03/15 13:29:34) Impression: IMPRESSION: No acute pathology. Narrative: EXAMINATION: CHEST ROUTINE 2 VIEWS/EDVM CLINICAL HISTORY: cough TECHNIQUE: PA and lateral chest COMPARISON: None FINDINGS: The heart is normal in size and the mediastinum has a normal contour. The lungs are clear and costophrenic angles are sharp. There is no pneumothorax. There is a mild scoliosis of the thoracolumbar spine. No fracture is noted. Pt is afebrile, nontoxic. I do not feel abx are indicated at this time. Will provide tessalon perles for prn use. F/U pcp prn. DX: URI Dispo: Home Dorian Brooke MD 04/03/15 1403 documented in this encounter Miscellaneous Notes * ED Triage - Natalie Miller RN - 04/03/2015 12:16 PM EDT Pt comes to Triage wearing a mask. C/o cough, runny nose when I blow my nose it's green x 3 days.A+O PWD documented in this encounter Plan of Treatment Not on file documented as of this encounter Procedures Procedure Name Priority Date/Time Associated Diagnosis Comments XR CHEST PA AND LATERAL STAT 04/03/2015 1:19 PM EDT documented in this encounter Results * XR Chest Routine PA & Lateral (04/03/2015 1:19 PM EDT) Anatomical Region Laterality Modality Chest N/A Radiographic Re ging 04/03/2015 1:19 PM EDT Impressions 04/03/2015 1:29 PM EDT IMPRESSION: No acute pathology. Narrative 04/03/2015 1:29 PM EDT EXAMINATION: CHEST ROUTINE 2 VIEWS/EDVM CLINICAL HISTORY: cough TECHNIQUE: PA and lateral chest COMPARISON: None FINDINGS: The heart is normal in size and the mediastinum has a normal contour. The lungs are clear and costophrenic angles are sharp. There is no pneumothorax. There is a mild scoliosis of the thoracolumbar spine. No fracture is noted. Procedure Note Ryan Arevalo MD - 04/03/2015 EXAMINATION: CHEST ROUTINE 2 VIEWS/EDVM CLINICAL HISTORY: cough TECHNIQUE: PA and lateral chest COMPARISON: None FINDINGS: The heart is normal in size and the mediastinum has a normal contour. The lungs are clear and costophrenic angles are sharp. There is nopneumothorax. There is a mild scoliosis of the thoracolumbar spine. No fracture isnoted. IMPRESSION IMPRESSION: No acute pathology. Dorian Brooke MD IMG DX ORDERABLES documented in this encounter Visit Diagnoses Diagnosis Acute URI Acute upper respiratory infections of unspecified site documented in this encounter Care Teams Rn Flight Relationship Specialty Start Date End Date Nat Baker MD [place] [address] PCP - General 03/30/13 11/10/18 documented as of this encounter
--- OUTSIDE RECORDS SUMMARY | 2024-02-17 09:36 | XMS_ITS | Encounter Summary ---
Author Organization [facility] [place] [address] Care Team Providers Care Hot Mill Worker Name Role Phone Nat Baker MD Primary Care Provider [phone] Encounter Details Date Type Department Care Team (Late st Contact Info) Description 08/06/2015 Orders Only Radiology and Cardiology Results [address] [place] [address] Apd Conversion, Results Provider, Social [...] Procedure Name Priority Date/Time Associated Diagnosis Comments HEMOGLOBIN A1C Routine 08/06/2015 documented in this encounter Results * (ABNORMAL) Hemoglobin A1c (08/06/2015) Est Avg Gluc 162.8(ExtH ) 82.5 - 116.9 DORA AR[facility] DAY CONVERSION Hemoglobin A1C 7.3(ExtH) 4.5 - 6.2 DORA ARRIAG[facility] DAY CONVERSION 08/06/2015 Results Provider Apd Conversion MD GUILLERMO VINSON ORDERABLES DORARACHEL ARRIAGA DAY CONVERSION documented in this encounter Visit Diagnoses Not on filedocumented in this encounter Care Teams Hot Mill Worker Relationship Specialty Start Date End Date Nat Baker MD [address] [place] [place] [address] PCP - General 11/11/18 02/27/19 documented as of this encounter
--- OUTSIDE RECORDS SUMMARY | 2024-02-17 09:36 | XMS_ITS | Encounter Summary ---
Author Organization [facility] Address [address] [facility] [place] [address] Care Team Providers Care Patrol Officer Name Role Phone Nat Baker MD Primary Care Provider [phone] Encounter Details Date Type Department Care Team (Late st Contact Info) Description 06/21/2014 Interpretation Only Radiology [address] [facility] [place] [id number] Unknown None Social History Tobacco Use Types [...] Name Priority Date/Time Associated Diagnosis Comments XR KNEE AP LAT AXIAL PATELLA RIGHT Routine 06/21/2014 11:54 AM EST documented in this encounter Results * XR Knee 3 Views Right (06/21/2014 11:54 AM EST) Anatomical Region Laterality Modality Knee Right Radiographic Re ging 06/21/2014 11:5 4 AM EST Narrative 06/21/2014 11:54 AM EST APD Historical Result Principal Forensic Photographer: ??ADARSH ??NASCIMENTO RIGHT KNEE - THREE VIEWS: HISTORY: ??Traumatic injury. AP, lateral, and sunrise views of the right knee are obtained. ??The lateral view is obtained in cross-table supine position. FINDINGS: There is mild marginal osteophyte formation. ??Patella is in anatomic alignment. ??No fracture or dislocation is demonstrated. IMPRESSION: Mild degenerative change. Adarsh Nascimento MD Luke [id number] CC: Procedure Note Unknown - 01/20/2019 APD Historical Result Principal Forensic Photographer: ADARSH NASCIMENTO RIGHT KNEE - THREE VIEWS: HISTORY: Traumatic injury. AP, lateral, and sunrise views of the right knee are obtained. Thelateral view is obtained in cross-table supine position. FINDINGS: There is mild marginal osteophyte formation. Patella is in anatomicalignment. No fracture or dislocation is demonstrated. IMPRESSION: Mild degenerative change. Adarsh Nascimento MD Luke [id number] CC: Unknown IMG DX ORDERABLES documented in this encounter Visit Diagnoses Not on filedocumented in this encounter Care Teams Patrol Officer Relationship Specialty Start Date End Date Nat Baker MD [address] [place] [place] [address] PCP - General 11/11/18 02/27/19 documented as of this encounter
--- OUTSIDE RECORDS SUMMARY | 2024-02-17 09:36 | XMS_ITS | Encounter Summary ---
[place] [address] Care Team Providers Care Business Banking Officer Name Role Phone Nat Baker MD Primary Care Provider Reason for Visit * Reason Comments Shoulder Pain Encounter Details Date Type Department Care Team (Late st Contact Info) Description 01/24/2015 11:12 AM EDT - 01/24/2015 1:04 PM EDT Emergency [place] [address] Orville Martinez MD [facility] [place] [address] Osteoarthritis of right shoulder, unspecified osteoarthritis type Discharge Disposition: Home Social History Tobacco Use [...] Sign Reading Time Taken Comments Blood Pressure 186/110 01/24/2015 11:41 AM EDT Pulse 84 01/24/2015 11:41 AM EDT Temperature 36.8 ??C (98.2 ??F) 01/24/2015 11:41 AM E DT Respiratory Rate - - Oxygen Saturation 98% 01/24/2015 11:41 AM EDT Inhaled Oxygen Concentration - - Weight 86.2 kg (190 lb) 01/24/2015 11:41 AM EDT Height - - Body Mass Index - - documented in this encounter Discharge Instructions * Discharge Instructions* Kavita Cotton, CHILD CAREGIVER - 01/24/2015 12:58 PM EDT Images from the original note were not included. [facility] Osteoarthritis: After Your Visit Your Care Instructions Arthritis is a common health problem in which the joints are inflamed. There are several kinds of arthritis. Osteoarthritis is caused by a breakdown of cartilage, the hard, thick tissue that cushionsthe joints. It causes pain, stiffness, and swelling, often in the spine, fingers, hips, and knees. O steoarthritis can happen at any age, but it is most common in older people. Osteoarthritis never goes away completely, but it can be controlled. Medicine and home treatment can reduce the pain and prevent the arthritis from getting worse. Follow-up care is a jean-baptiste part of your treatment and safety. Be sure to make and go to all appointments, and call your doctor if you are having problems. It???s also a good idea to know your test results and keep a list of the medicines you take. How can you care for yourself at home? ?? Take a warm shower or bath in the morning to relieve stiffness. Avoid sitting still afterwards. ?? If the joint is not swollen, use moist heat, like a warm, damp towel, for 20 to 30 minutes, 2 or3 times a day. Do not use heat on a swollen joint. ?? If the joint is swollen, use ice or cold packs for 10 to 20 minutes, once an hour. Cold will help relieve pain and reduce inflammation. Put a thin cloth between the ice and your skin. ?? To prevent stiffness, gently move the joint through its full range of motion several times a day. ?? If the joint hurts, avoid activities that put a strain on it for a few days. Take rest breaks throughout the day. ?? Get regular exercise. Walking, swimming, yoga, biking, and water aerobics are good exercises that are gentle on the joints. ?? Reach and stay at a healthy weight. If you need to lose or maintain weight, regular exercise angela healthy diet will help. Extra weight can strain the joints, especially the knees and hips, and make the pain worse. Losing even a few pounds may help. ?? Take pain medicines exactly as directed. ?? If the doctor gave you a prescription medicine for pain, take it as prescribed. ?? If you are not taking a prescription pain medicine, ask your doctor if you can take an wbqw-tbc-jgqbgio medicine. When should you call for help? Call your doctor now or seek immediate medical care if: ?? The pain is so bad that you cannot use the joint. ?? You have sudden back pain with weakness in your legs or loss of bowel or bladder control. ?? Your stools are black and tarlike or have streaks of blood. ?? You have severe pain and swelling in more than one joint. Watch closely for changes in your health, and be sure to contact your doctor if: ?? You have side effects from the medicines, like belly pain, ongoing heartburn, or nausea. ?? Joint pain continues for more than 6 weeks, and home treatment is not helping. Where can you learn more? Visit our [employer] information library at [email or web address] You can also view health information on [employer], your personal patient account. Log in or sign up today. Enter U459 in the search box to learn more about Osteoarthritis: After Your Visit. ?? [id number] [employer]. Care instructions adapted under license by [facility]. This care instruction is for use with your licensed healthcare professional. If you have questions about a medical condition or this instruction, always ask your healthcare professional. [employer] disclaims any warranty or liability for your use of this information. Content Version: 10.4.233306; Current as of: March 31, 2014 documented in this encounter Medications at Time of Discharge Medication Sig Dispensed Refills Start Date End Date ibuprofen (ADVIL;MOTRIN) 600 mg Tablet Take 1 [...] as of this encounter ED Notes * Kavita Cotton APRN - 01/24/2015 2:17 PM EDT Chief Complaint Patient presents with ??? Shoulder Pain HPI 49 y.o. female presents today with right shoulder pain. 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 Reports right shoulder pain that has flaired back up states she has had similar problems in the past. No Known Allergies Review of Systems Constitutional: Negative for fever, chills and fatigue. Respiratory: Negative for cough, chest tightness, shortness of breath and wheezing. Cardiovascular: Negative for chest pain, palpitations and leg swelling. Gastrointestinal: Negative for nausea and vomiting. Musculoskeletal: Positive for arthralgias. Negative for back pain, joint swelling, gait problem, neck pain and neck stiffness. Right shoulder pain Skin: Negative for rash. Neurological: Negative for weakness and numbness. Hematological: Negative for adenopathy. Physical Exam Constitutional: She is oriented to person, place, and time. She appears well- developed and well-nourished. HENT: Head: Normocephalic and atraumatic. Neck: Normal range of motion. Neck supple. Cardiovascular: Intact distal pulses. Pulmonary/Chest: Effort normal. Musculoskeletal: Right shoulder: She exhibits decreased range of motion, bony tenderness and pain. She exhibits no swelling, no effusion, no crepitus, no deformity and normal strength. Left shoulder: Normal. Right elbow: Normal. Left elbow: Normal. Right wrist: Normal. Left wrist: Normal. Neurological: She is alert and oriented to person, place, and time. Skin: Skin is warm and dry. Psychiatric: She has a normal mood and affect. Procedures MDM Shoulder pain: Repeative use injury. Recurrent. Shoulder strain. Follow up MRI maybe warrented. ED Course: H &PE Shoulder Xray Kavita Cotton APRN 01/24/15 1421 documented in this encounter Miscellaneous Notes * ED Triage - Natalie Miller RN - 01/24/2015 11:36 AM EDT I have tendonitis in my shoulder that acts up every so often. c/o recurrent right shoulder pain and now constant pain from her right shoulder into her hand x 2 days. Pain increases with use of thatjoint. 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 Distal CSM intact. documented in this encounter Plan of Treatment Not on file documented as of this encounter Procedures Procedure Name Priority Date/Time Associated Diagnosis Comments XR SHOULDER STAT 01/24/2015 12:38 PM EDT documented in this encounter Results * XR shoulder (01/24/2015 12:38 PM EDT) Anatomical Region Laterality Modality Shoulder N/A Radiographic Re ging 01/24/2015 12:3 8 PM EDT Impressions 01/24/2015 12:51 PM EDT IMPRESSION: Mild degenerative arthropathy of the acromioclavicular joint. Narrative 01/24/2015 12:51 PM EDT EXAMINATION: SHOULDER MINIMUM TWO VIEWS/RIGHT CLINICAL HISTORY: Shoulder Pain TECHNIQUE: AP, Grashey, scapular Y and axillary of the right shoulder COMPARISON: None FINDINGS: No fracture or dislocation is seen. There is narrowing of the acromioclavicular joint. Procedure Note Ryan Arevalo MD - 01/24/2015 EXAMINATION: SHOULDER MINIMUM TWO VIEWS/RIGHT CLINICAL HISTORY: Shoulder Pain TECHNIQUE: AP, Grashey, scapular Y and axillary of the right shoulder COMPARISON: None FINDINGS: No fracture or dislocation is seen. There is narrowing of the acromioclavicular joint. IMPRESSION IMPRESSION: Mild degenerative arthropathy of the acromioclavicular joint. Sudhir Peraza MD IMG DX ORDERABLES documented in this encounter Visit Diagnoses Diagnosis Osteoarthritis of right shoulder, unspecified osteoarthritis type documented in this encounter Care Teams Business Banking Officer Relationship Specialty Start Date End Date Nat Baker MD [address] [place] [address] PCP - General 03/30/13 11/10/18 documented as of this encounter
--- OUTSIDE RECORDS SUMMARY | 2024-02-17 09:36 | XMS_ITS | Encounter Summary ---
[place] [address] Care Team Providers Care Technical Service Rep Name Role Phone Nat Baker MD Primary Care Provider Reason for Visit * Reason Comments Dizziness Encounter Details Date Type Department Care Team (Late st Contact Info) Description 08/03/2013 2:48 PM EST - 08/03/2013 5:29 PM EST [place] [address] Stew Simpson Jr., MD [facility] [place] [address] Vertigo; Atypical chest pain Discharge Disposition: Home Social History Tobacco [...] Sign Reading Time Taken Comments Blood Pressure 108/62 08/03/2013 5:12 PM EST Pulse 66 08/03/2013 5:12 PM EST Temperature 36.7 ??C (98.1 ??F) 08/03/2013 5:12 PM ES T Respiratory Rate 16 08/03/2013 5:12 PM EST Oxygen Saturation 98% 08/03/2013 5:12 PM EST Inhaled Oxygen Concentration - - Weight 86.2 kg (190 lb) 08/03/2013 2:49 PM EST Height - - Body Mass Index - - documented in this encounter Discharge Instructions * Discharge Instructions* Darian Dockery - 08/03/2013 5:18 PM EST We think your vertigo is related to peripheral vertigo and should improve with meclizine. S3 or chest discomfort, we [id number] low risk for heart attack or a decreased blood flow to your heart but with that said you should followup with your primary care physician and return to the emergency department of your symptoms worsen. * Attachments The following attachments cannot be sent through Care Everywhere. * CHEST PAIN: AFTER YOUR VISIT TO THE EMERGENCY ROOM (HEBREW) * VERTIGO: AFTER YOUR VISIT (HEBREW) documented in this encounter Medications at Time of Discharge Medication Sig Dispensed Refills Start Date End Date meclizine (ANTIVERT) 25 mg tablet Take 1 [...] of this encounter ED Notes * Stew Simpson - 08/03/2013 8:17 PM EST Martha Rodriguez is an 48 y.o. female who presents to the ED with: Vertigo, chest discomfort HPI Martha Rodriguez is a 48 y.o. female who presents to the Emergency Department complaining of vertigo and chest discomfort. The patient has a history of vertigo treated with meclizine in the past. When she woke up this morning she was experiencing the room spinning, nausea, unsteadiness on her feet. Her symptoms would subside when she closed her eyes. She did not have any dysarthria, dysphasia, headache. No recent head injuries, falls. Starting after the dizziness she does describe as twinges throughout her anterior chest wall. No overt pain, no dyspnea, no cough, no shortness of breath. 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 No recent falls or trauma. She has ahistory of hypertension but no known cardiac disease. No diabetes (h/o Gestational DM), does not smoke, no hyperlipidemia. Family history: Father with congestive heart failure, mother COPD Social history: No tobacco use Review of Systems: Review of Systems Constitutional: Negative for fever, chills, diaphoresis, fatigue and unexpected weight change. HENT: Negative for congestion, rhinorrhea, neck pain, neck stiffness, postnasal drip and sinus pressure. Eyes: Negative for pain and visual disturbance. Respiratory: Negative for cough, chest tightness, shortness of breath and wheezing. Cardiovascular: Negative for chest pain, palpitations and leg swelling. Chest twinging Gastrointestinal: Negative for nausea, vomiting, abdominal pain, diarrhea and constipation. Genitourinary: Negative for dysuria, frequency and flank pain. Musculoskeletal: Negative. Skin: Negative. Neurological: Positive for dizziness. Negative for weakness, light-headedness, numbness and headaches. Physical Exam: Last value Range last 24 hrs Temperature Temp: 36.7 ??C (98.1 ??F) Temp: [36.7 ??C (98.1 ??F)-37 ??C (98.6 ??F)] Heart Rate Heart Rate: 66 Heart Rate: [66-89] Blood Pressure BP: 108/62 mmHg BP: (107-132)/(62-82) Respiratory Rate Resp: 16 Resp: [16] SpO2 SpO2: 98 % SpO2: [96 %-100 %] Art BP BP (Arterial Line): -- Physical Exam Constitutional: She is oriented to person, place, and time. Pleasant, conversational, NAD, well developed. HENT: Head: Normocephalic and atraumatic. Right Ear: External ear normal. Left Ear: External ear normal. Nose: Nose normal. Mouth/Throat: Oropharynx is clear and moist. No oropharyngeal exudate. Eyes: Conjunctivae normal and EOM are normal. Pupils are equal, round, and reactive to light. Righteye exhibits normal extraocular motion and no nystagmus. Left eye exhibits normal extraocular motion and no nystagmus. Neck: Trachea normal, normal range of motion, full passive range of motion without pain and phonation normal. Neck supple. No spinous process tenderness and no muscular tenderness present. No edema present. Cardiovascular: Normal rate, regular rhythm, S1 normal, S2 normal, intact distal pulses and normal pulses. No murmur heard. Pulmonary/Chest: Effort normal and breath sounds normal. No respiratory distress. She has no wheezes. She has no rhonchi. She has no rales. She exhibits no tenderness. Abdominal: Soft. Normal appearance and bowel sounds are normal. There is no hepatosplenomegaly. There is no tenderness. Neurological: She is alert and oriented to person, place, and time. She has normal strength and normal reflexes. She displays no atrophy and no tremor. No cranial nerve deficit or sensory deficit. She exhibits normal muscle tone. She displays a negative Romberg sign. She displays no seizure activity. Coordination and gait normal. Skin: Skin is warm, dry and intact. No pallor. ED Course: - Medications, allergies and past medical history reviewed - Medications and fluids administered: Zofran 4mg ODT I reviewed the patient's labwork: Troponin <0.03 I reviewed the EKG: Normal sinus rhythm at 70. Normal intervals. No ST or T wave abnormalities. Assessment and Plan: Assessment: 48 y.o. female with peripheral vertigo and atypical chest wall sensation. The patient has a history of vertigo that was treated with meclizine and I do not suspect a central etiology at this time. She has not had any nystagmus. Her symptoms improve when closing her eyes, no neurologicalfindings and no dysmetria at this time. Her chest symptoms have been continuous throughout the day and are not consistent with acute coronary syndrome, infection, pneumothorax, aortic dissection, or chest wall infection. Plan: - Discharge home with meclizine Follow with primary care physician regarding vertigo and chest discomfort Return precautions given Darian Dockery MD Resident 08/03/132037 ED ATTENDING ATTESTATION NOTE The patient was seen in conjunction with Dr. Dockery, the resident physician. I have independentlyperformed the jean-baptiste portions of the history and physical exam. I have reviewed all diagnostic studiespersonally including labs, imaging studies and EKGs. I have discussed the details of the case with the resident and agree with the assessment and plan as descried in the resident note above unless noted otherwise below. Brief Summary:48 -year-old white female with a history of vertigo, anxiety and atypical chest discomfort presents with complaint of the same. Final Assessment: vertigo, anxiety, atypical chest discomfort with unremarkable EKG and negative troponin. Stew Simpson Jr., MD 08/03/13 [id number] * Stew Moeller RN - 08/03/2013 5:29 PM EST Pt released with instructions. * Stew Moeller RN - 08/03/2013 5:13 PM EST Pt is feeling better after her zofran. She is continuing to have some twinges of chest discomfort. Pt is awake, alert and oriented x 3. Skin color is pink warm and dry. Pt is on the senior quality assurance specialist showing a NSR. Respirations are regular. * Stew Moeller RN - 08/03/2013 3:50 PM EST Pt to 6A. She comes in with dizziness that started this morning when she got out of bed and stood up. The room was spinning. She also reports having twinges in her chest throughout the day. She denies any shortness of breath. Pt is awake, alert and oriented x 3. Skin color is pink warm and dry. Ptis on the senior quality assurance specialist showing a NSR. Respirations are regular. Breath sounds are clear and equal bilaterally. documented in this encounter Miscellaneous Notes * Discharge Summary - Provider, Scanning - 08/04/2013 9:28 AM EST * Miscellaneous - Provider, Scanning - 08/03/2013 3:38 PM EST * ED Triage - Stew Moeller RN - 08/03/2013 2:52 PM EST Pt comes in with a complaint of dizziness and nausea. She noticed this when she woke up this morning. It became worse when she stood up getting out of bed. She also has a slight headache. Pt is awake, alert and oriented x 3. Skin color pink warm and dry. Pt is able to move all 4 extremities and follow commands. No facial droop noted. documented in this encounter Plan of Treatment Not on file documented as of this encounter Procedures Procedure Name Priority Date/Time Associated Diagnosis Comments EKG 12-LEAD STAT 08/03/2013 4:32 PM EST BLUE TUBE HOLD STAT 08/03/2013 4:00 PM EST LAVENDER TUBE HOLD STAT 08/03/2013 4: 00 PM EST TROPONIN STAT 08/03/2013 4:00 PM EST documented in this encounter Results * EKG 12 Lead (08/03/2013 4:32 PM EST) Pathologist [facility] Ventricular rate 70 BPM MUSE SYSTEM Atrial Rate 70 BPM MUSE SYSTEM P-R Interval 148 ms MUSE SYSTEM QRS Duration 80 ms MUSE SYSTEM Q-T Interval 406 ms MUSE SYSTEM QTC Calculated (Bezet) 438 ms MUSE SYSTEM Calculated P Hensley 27 degrees MUSE SYSTEM Calculated R Hensley 19 degrees MUSE SYSTEM Calculated T Hensley -3 degrees MUSE SYSTEM INTERPRETATION Normal sinus rhythm Normal ECG When compared with ECG of 08-MAR-1993 12:08, Inverted T waves have replaced nonspecific T wave abnormality in Inferior leads Confirmed by MD Russell, Guillermo ([id number]) on 08/04/2013 6:16:59 AM MUSE SYSTEM 08/03/2013 4:32 PM EST 08/04/2013 6:16 AM EST Stew Simpson Jr., MD ECG ORDERABLES MUSE SYSTEM * Lavender Tube HOLD (08/03/2013 4:00 PM EST) Lavender Hold Sample in lab. HILLARY DUBON Blood specimen (specimen) 08/03/2013 4:00 PM EST 08/03/2013 4:21 PM EST Stew Simpson Jr., MD HEMATOLOGY ORDERAB LES Performing Organization Address [facility] Co de Phone Number HILLARY DUBON * Blue Tube HOLD (08/03/2013 4:00 PM EST) Blue Hold Sample in lab. HILLARY DUBON Blood specimen (specimen) 08/03/2013 4:00 PM EST 08/03/2013 4:21 PM EST Stew Simpson Jr., MD HEMATOLOGY ORDERAB LES Performing Organization Address [facility] Co de Phone Number HILLARY DUBON * Troponin T (08/03/2013 4:00 PM EST) Pathologist [facility] Troponin-T <0.03 <=0.03 ng/mL HILLARY DUBON Comment: 0.03 ng/mL: Represents the 99th percentile upper reference limit for normals. >0.03 ng/mL: Elevated cardiac troponin T level indicative of myocardial damage. Diagnosis of acute, evolving or recent CT requires a typical rise and gradual fall of cTnT with at least ONE of the following: a) Ischemic symptoms b) Development of pathologic Q waves on the ECG c) ECG changes indicative of eschemia (S-T segment elevation/depression) d) Coronary artery intervention Serial bloods should be obtained for testing on admission, at 6 to 9 hrs and again at 12 to 24 hrs if earlier samples are negative and the clinical index of suspicion is high. Reference: [Myocardial infarction redefined? a consensus document of the Joint Society of Cardiology/[place] [employer] Committee for the redefinition of myocardial infarction. ??Journal of the [place] College [employer] 2000; 36: 959-969] Blood specimen (specimen) 08/03/2013 4:00 PM EST 08/03/2013 4:20 PM EST Narrative Resulting Agency Comment Spec In Lab Stew Simpson Jr., MD CHEMISTRY ORDERABL ES [facility]ILLARY DUBON documented in this encounter Visit Diagnoses Diagnosis Vertigo Dizziness and giddiness Atypical chest pain Other chest pain documented in this encounter Administered Medications Inactive Administered Medications - up to 3 most recent administrations Medication Order MAR Action Action Date Dose Rate Site ondansetron (ZOFRAN-ODT) oral disintegrating tablet 4 mg 4 mg, Oral, ONCE, 1 dose, On 08/03/13 at 1630, STAT Given 08/03/2013 4:30 PM EST 4 mg documented in this encounter Active and Recently Administered Medications Times are shown in EST. Scheduled Medication Order 08/01/2013 08/02/2013 08/03/2013 ondansetron (ZOFRAN-ODT) oral disintegrating tablet 4 mg (COMPLETED) 4 mg, Oral, ONCE, 1 dose, On 08/03/13 at 1630, STAT 1630 (Given - Provid er: Stew Moeller RN) documented in this encounter Care Teams Technical Service Rep Relationship Specialty Start Date End Date Nat Baker MD [address] [place] [address] PCP - General 03/30/13 11/10/18 documented as of this encounter
--- OUTSIDE RECORDS SUMMARY | 2024-02-17 09:36 | XMS_ITS | Encounter Summary ---
Author Organization [facility] Address [facility] [address] Care Team Providers Care Multimedia Services Manager Name Role Phone Nat Baker MD Primary Care Provider [phone] Encounter Details Date Type Department Care Team (Late st Contact Info) Description 08/06/2015 Orders Only Radiology and Cardiology Results [address] [place] [address] Apd Conversion, Results Provider, Social [...] Procedure Name Priority Date/Time Associated Diagnosis Comments U ALBUMIN/CRE RATIO Routine 08/06/2015 documented in this encounter Results * (ABNORMAL) U Albumin/Cre Ratio (08/06/2015) Alb/Cr Ratio, Random 5.0(Credit Consultant al Lab) 0 - 29 [address] [place] DAY CONVERSION U Creatinine 130.2(Exte rnal Lab) DORA ARRIAGA DAY CONVERSION U Albumin Conc, Random 6.6(Credit Consultant al Lab) 0 - 20 DORA [place] DAY CONVERSION 08/06/2015 Results Provider Apd Conversion MD URINE ORDERABLES DORA ARRIAG[place] DAY CONVERSION documented in this encounter Visit Diagnoses Not on filedocumented in this encounter Care Teams Multimedia Services Manager Relationship Specialty Start Date End Date Nat Baker MD [address] [place] [address] PCP - General 11/11/18 02/27/19 documented as of this encounter
--- OUTSIDE RECORDS SUMMARY | 2024-02-17 09:36 | XMS_ITS | Encounter Summary ---
Author Organization [facility] [place] [address] Care Team Providers Care It Infrastructure Engineer Name Role Phone Nat Baker MD Primary Care Provider [phone] Encounter Details Date Type Department Care Team (Late st Contact Info) Description 08/04/2015 Abstract Cherelle Jones Conversion Results [address] [place] [id number] Apd Conversion, Flowsheet Provider, Social History Tobacco [...] Sign Reading Time Taken Comments Blood Pressure 112/84 08/04/2015 2:48 PM EST Petrona rced from APD Conversion Pulse - - Temperature - - Respiratory Rate - - Oxygen Saturation - - Inhaled Oxygen Concentration - - Weight - - Height - - Body Mass Index - - documented in this encounter Plan of Treatment Not on file documented as of this encounter Visit Diagnoses Not on filedocumented in this encounter Care Teams It Infrastructure Engineer Relationship Specialty Start Date End Date Nat Baker MD [address] [place] [address] PCP - General 11/11/18 02/27/19 documented as of this encounter
--- OUTSIDE RECORDS SUMMARY | 2024-02-17 09:36 | XMS_ITS | Encounter Summary ---
[place] [address] Care Team Providers Care Steamboat Captain Name Role Phone Nat Baker MD Primary Care Provider Reason for Visit * Reason Comments Ankle Pain Encounter Details Date Type Department Care Team (Late st Contact Info) Description 08/02/2015 1:23 PM EST - 08/02/2015 2:38 PM EST [place] [address] Sprain of tibiofibular ligament of right ankle, initial encounter; Sprain of right ankle, unspecified ligament, initial encounter; Fall from slipping on ice, initial encounter Discharge Disposition: Home Social History Tobacco Use [...] Sign Reading Time Taken Comments Blood Pressure 130/79 08/02/2015 1:12 PM EST Pulse 100 08/02/2015 1:12 PM EST Temperature 37.3 ??C (99.1 ??F) 08/02/2015 1:12 PM ES T Respiratory Rate 16 08/02/2015 1:12 PM EST Oxygen Saturation 99% 08/02/2015 1:12 PM EST Inhaled Oxygen Concentration - - Weight - - Height - - Body Mass Index - - documented in this encounter Discharge Instructions * Discharge Instructions* Reji Cortez PA - 08/02/2015 2:32 PM EST Weight-bear as tolerated while wearing your ankle brace. You may use crutches if helpful. Ice and elevation as needed for pain and swelling. Tylenol or ibuprofen as needed for pain. Wear your ankle brace for the next 10-14 days. Reevaluate with any worsening symptoms. * Attachments The following attachments cannot be sent through Care Everywhere. * ANKLE SPRAIN (YAKUT) documented in this encounter Medications at Time [...] as of this encounter ED Notes * Reji Cortez PA - 08/02/2015 2:29 PM EST CC: Ankle Pain HPI: Martha Rodriguez is a 50 y.o. female who presents with ankle pain. The pain is lateral on the right ankle and described as mild aching and throbbing pain which started today. Exacerbating factors: weight bearing. History of injury to the affected ankle: twisting injury, slipped on ice. Associatedneurological complaints: none. Ability to Ambulate: mild difficulty. Previous treatments: ice. History of prior injury to the affected ankle: No: no. PMH: Past Medical History Diagnosis Date ??? HTN (hypertension) 02/14/2013 ??? Migraine headache 02/14/2013 MEDS: No current facility-administered medications for this encounter. Current outpatient prescriptions: ibuprofen (ADVIL;MOTRIN) 600 mg Tablet, Take 1 tablet by mouth every 6 hours as needed for Pain., Disp: 30 tablet, Rfl: 0; lisinopril (PRINIVIL;ZESTRIL) 20 mg tablet, Take 20 mg by mouth daily., Disp: , Rfl: ; atenolol (TENORMIN) 25 mg tablet, Take 25 mg by mouth daily., Disp: , Rfl: OXYcodone (ROXICODONE) 5 mg immediate release tablet, Take 1-2 tablets by mouth every 4 hours as needed for Pain., Disp: 20 tablet, Rfl: 0; benzonatate (TESSALON) 100 mg Capsule, Take 1 capsule by mouth 3 times daily as needed for Cough., Disp: 30 tablet, Rfl: 0; meclizine (ANTIVERT) 25 mg tablet, Take 1 tablet by mouth 3 times daily as needed for Dizziness., Disp: 30 tablet, Rfl: 0 ALL: No Known Allergies SOCIAL HX: History Social History ??? Marital Status: Spouse Name: N/A Number of Children: N/A ??? Years of Education: N/A Social History Main Topics ??? Smoking status: Never Smoker ??? Smokeless tobacco: None ??? Alcohol Use: No ??? Drug Use: None ??? Sexual Activity: None Other Topics Concern ??? None Social History Narrative ROS: Pertinent positives and negatives were mentioned in the HPI, all other systems negative. PHYSICAL EXAM: Vitals: BP 130/79 mmHg Pulse 100 Temp(Src) 37.3 ??C (99.1 ??F) (Oral) Resp 16 SpO2 99% Gen: Well appearing female in NAD HEENT: Atraumatic Cardiovascular: Regular rhythm without murmurs, rubs or gallops Pulmonary: CTAB Extremities: right ankle. Obvious deformity: no; Skin: normal; Swelling: minimal; Warmth: no warmth; Tenderness: tender over atf and cfl; ROM: normal; Strength: normal; Stability: stable to testing; Neurological testing: normal; Vascular Exam: normal. Knee tenderness: No: no. ED COURSE: Nursing notes an vitals reviewed Ankle X-ray (I personally reviewed all images): no fracture Analgesics given: none Orthopedics consulted: No: no Other treatments/procedures: none MEDICAL DECISION MAKING: Acute ankle injury likely representing sprain. No radiographic evidence tosuggest fracture. No complicating neurovascular injury suspected based on exam. ASSESSMENT: Ankle sprain PLAN: Natural history and expected course discussed. Questions answered. Rest, ice, compression, elevation (RICE) therapy. Educational materials distributed. Fit with ankle brace for use over next 10 days. OTC analgesics as needed. Follow-up with PCP in 10 days. Reji Cortez PA 08/02/15 1431 documented in this encounter Miscellaneous Notes * ED Triage - Jose Rivera RN - 08/02/2015 1:16 PM EST 50y/o, F, presenting with R ankle pain. Patient slipped and fell on the ice around 0930 this morning. Patient twisted R ankle in the process. Able to stand and ambulate but was limping. No LOC, denies hitting head. Denies numbness/tingling sensation. DP 2+ with good ROM but with pain. Slight swelling noted. AOx4. Skin PWD. Ice pack over area of injury. documented in this encounter Plan of Treatment Not on file documented as of this encounter Procedures Procedure Name Priority Date/Time Associated Diagnosis Comments XR ANKLE MIN 3 VIEWS RIGHT STAT 08/02/2015 1:52 PM EST documented in this encounter Results * XR Ankle Minimum 3 Views Right (GENERIC) (08/02/2015 1:52 PM EST) Anatomical Region Laterality Modality Ankle Right Digital Radiogra phy Addenda Addendum by Diana Crews MD on 08/03/2015 5:05 PM EST CLINICAL HISTORY: Right ankle pain s/p fall on ice. Narrative 08/02/2015 1:55 PM EST EXAMINATION: XR ANKLE MINIMUM 3 VIEWS RIGHT CLINICAL HISTORY: ankle injury after fall on ice, ankle injury after fall on ice TECHNIQUE: ? COMPARISON: None FINDINGS: Bones: No fracture is present. Joints: No dislocation is seen. Congruent Ankle mortise Soft tissue: Soft tissue swelling around the lateral malleolus Impression No acute fracture or dislocation Procedure Note Diana Crews MD - 08/02/2015 EXAMINATION: XR ANKLE MINIMUM 3 VIEWS RIGHT CLINICAL HISTORY: ankle injury after fall on ice, ankle injury after bryan ice TECHNIQUE: COMPARISON: None FINDINGS: Bones: No fracture is present. Joints: No dislocation is seen. Congruent Ankle mortise Soft tissue: Soft tissue swelling around the lateral malleolus Impression No acute fracture or dislocation Lois Baez MD IMG DX ORDERABLES documented in this encounter Visit Diagnoses Diagnosis Sprain of tibiofibular ligament of right ankle, initial encounter Sprain of right ankle, unspecified ligament, initial encounter Fall from slipping on ice, initial encounter documented in this encounter Care Teams Steamboat Captain Relationship Specialty Start Date End Date Nat Baker [place] [place] [address] PCP - General 03/30/13 11/10/18 documented as of this encounter
--- OUTSIDE RECORDS SUMMARY | 2024-02-17 09:36 | XMS_ITS | Encounter Summary ---
[facility] Address [facility] [place] [address] Care Team Providers Care Layout Designer Name Role Phone Nat Baker MD Primary Care Provider [phone] Encounter Details Date Type Department Care Team (Late st Contact Info) Description 09/11/2013 Interpretation Only Radiology [address] [facility] [place] [id number] Unknown None Social History Tobacco Use Types [...] Name Priority Date/Time Associated Diagnosis Comments XR CERVICAL SPINE 4 OR 5 VIEWS Routine 09/11/2013 9:14 AM EST documented in this encounter Results * XR Cervical Spine Any 4 Or 5 Views (09/11/2013 9:14 AM EST) Anatomical Region Laterality Modality L-spine N/A Radiographic Re ging 09/11/2013 9:14 AM EST Narrative 09/11/2013 9:14 AM EST APD Historical Result Principal Infantryman: ??JUDY ??ESCHBACH CERVICAL SPINE: INDICATION: ??Neck pain and has popping, headache. COMPARISON: ??None available. FINDINGS: Six views of cervical spine show alignment to be anatomic. ??There is uncovertebral joint hypertrophy at C5-6 bilaterally without significant foraminal encroachment. ??Vertebral body heights and disc heights are maintained. ??Prevertebral soft tissues are normal. ??Lateral masses of C1 are aligned with C2. IMPRESSION: Minimal degenerative changes at C5-6. ??If there are radicular symptoms, MRI may be beneficial. Judy DO Pedro /mn [id number] CC: Procedure Note Unknown - 01/20/2019 [facility]D Historical Result Principal Infantryman: JUDY GRANDE CERVICAL SPINE: INDICATION: Neck pain and has popping, headache. COMPARISON: None available. FINDINGS: Six views of cervical spine show alignment to be anatomic. There isuncovertebral joint hypertrophy at C5-6 bilaterally without significant foraminalencroachment. Vertebral body heights and disc heights are maintained. Prevertebral soft tissues are normal. Lateralmasses of C1 are aligned with C2. IMPRESSION: Minimal degenerative changes at C5-6. If there are radicularsymptoms, MRI may be beneficial. Judy Grande DO /mn [id number] CC: Unknown IMG DX ORDERABLES documented in this encounter Visit Diagnoses Not on filedocumented in this encounter Care Teams Layout Designer Relationship Specialty Start Date End Date Nat Baker MD [address] [place] [address] PCP - General 11/11/18 02/27/19 documented as of this encounter
--- OUTSIDE RECORDS SUMMARY | 2024-02-17 09:36 | XMS_ITS | Encounter Summary ---
Author Organization [facility] Address [facility] [place] [address] Care Team Providers Care Studio Receptionist Name Role Phone Nat Baker MD Primary Care Provider [phone] Encounter Details Date Type Department Care Team (Late st Contact Info) Description 08/06/2015 Orders Only Radiology and Cardiology Results [address] [place] [address] Apd Conversion, Results Provider, Social [...] LIPID PANEL (REFLEX DIRECT LDL) Routine 08/06/2015 documented in this encounter Results * (ABNORMAL) Lipid Panel (08/06/2015) Chol/HDL Ratio [...] filedocumented in this encounter Care Teams Studio Receptionist Relationship Specialty Start Date End Date Nat Baker MD [address] [place] [address] PCP - General 11/11/18 02/27/19 documented as of this encounter
--- OUTSIDE RECORDS SUMMARY | 2024-02-17 09:36 | XMS_ITS | Encounter Summary ---
Author Organization [facility] [place] [address] Care Team Providers Care Sas Developer Name Role Phone Nat Baker MD Primary Care Provider [phone] Encounter Details Date Type Department Care Team (Late st Contact Info) Description 04/30/2014 Orders Only Radiology and Cardiology Results [address] [place] [address] Apd Conversion, Results Provider, Social [...] Name Priority Date/Time Associated Diagnosis Comments VITAMIN B12 Routine 04/30/2014 documented in this encounter Results * (ABNORMAL) Vitamin B12 (04/30/2014) Vitamin B-12 782(C D Area Supervisor al Lab) 059 - 082 DORA JONES CONVERSION 04/30/2014 Results Provider Apd Conversion MD GUILLERMO VINSON ORDERABLES DORA JONES CONVERSION documented in this encounter Visit Diagnoses Not on filedocumented in this encounter Care Teams Sas Developer Relationship Specialty Start Date End Date Nat Baker MD [address] [place] [place] [address] PCP - General 11/11/18 02/27/19 documented as of this encounter
--- OUTSIDE RECORDS SUMMARY | 2024-02-17 09:36 | XMS_ITS | Encounter Summary ---
Author Organization [facility] [place] [address] Care Team Providers Care Studio Artist Name Role Phone Nat Baker MD Primary Care Provider [phone] Encounter Details Date Type Department Care Team (Late st Contact Info) Description 04/30/2014 Orders Only Radiology and Cardiology Results [address] [place] [address] Apd Conversion, Results Provider, Social [...] Date/Time Associated Diagnosis Comments HEMOGLOBIN A1C Routine 04/30/2014 documented in this encounter Results * (ABNORMAL) Hemoglobin A1c (04/30/2014) Est Avg Gluc 148.5(ExtH ) 82.5 - 116.9 DORA ARRIAGA DAY CONVERSION Hemoglobin A1C 6.8(ExtH) 4.5 - 6.2 DORA ARRIAGA DAY CONVERSION 04/30/2014 Results Provider Apd Conversion MD GUILLERMO VINSON ORDERABLES DORARACHEL ARRIAGA DAY CONVERSION documented in this encounter Visit Diagnoses Not on filedocumented in this encounter Care Teams Studio Artist Relationship Specialty Start Date End Date Nat Baker MD [address] [place] [place] [address] PCP - General 11/11/18 02/27/19 documented as of this encounter
--- OUTSIDE RECORDS SUMMARY | 2024-02-17 09:36 | XMS_ITS | Encounter Summary ---
Author Organization [facility] [place] [address] Care Team Providers Care Biblical Languages Professor Name Role Phone Nat Baker MD Primary Care Provider Encounter Details Date Type Department Care Team (Latest Contact Info) Description 08/31/2017 - 08/31/2017 11:59 PM EST Hospital Encounter [place] [address] [place] [address] Discharge Disposition: Home Social History Tobacco Use Types Packs/Day Years Used Date Smoking Tobacco: Never Alcohol Use Standard Drinks/Week Comments No 0 (1 standard drink = 0.6 oz pur e alcohol) Sex and Gender Information Value Date Recorded Sex Assigned at Not on file Gender Identity Not on file Sexual Orientation Not on file documented as of this encounter Medications at Time of Discharge [...] 02/14/2013 02/07/2022 documented as of this encounter Plan of Treatment Not on file documented as of this encounter Procedures Procedure Name Priority Date/Time Associated Diagnosis Comments FILM LIBRARY- STORAGE ONLY CT FACE Routine 08/31/2017 12:00 AM EST documented in this encounter Results * Film Library-Storage Only CT Face (08/31/2017 12:00 AM EST) Narrative [facility] - 09/01/2017 10:25 AM EST This exam is for storage only and is auto-finalizing. Nat Baker MD IMG FILM LIBRARY OR DERABLES [facility] [place] documented in this encounter Visit Diagnoses Not on filedocumented in this encounter Care Teams Biblical Languages Professor Relationship Specialty Start Date End Date Nat Baker MD [place] [address] PCP - General 03/30/13 11/10/18 documented as of this encounter
[2024-02-17 10:13] LABS: Abs Immature Grans 0.01 10^3/uL (0.0-0.06); Absolute Basophil Count 0.05 10^3/uL (0.0-0.2); Absolute Eosinophil Count 0.27 10^3/uL (0.0-0.7); Absolute Lymphocyte Count 2.63 10^3/uL (1.2-3.4); Absolute Monocyte Count 0.45 10^3/uL (0.1-0.8); Absolute Neutrophil Count 4.84 10^3/uL (1.2-6.7); Basophils % 0.6 %; Eosinophils % 3.3 %; HCT 45.9 % (36.0-46.0); HGB 16.3 g/dL (11.2-15.7); Immature Grans % 0.1 %; Lymphocytes % 31.9 %; MCH 30.8 pg (27.0-33.0); MCHC 35.5 % (32.0-36.0); MCV 87 fL (80-95); MPV 11.4 fL (8.0-11.0); Monocytes % 5.5 %; Neutrophils % 58.6 %; Platelet Count 285 10^3/uL (130-400); RBC 5.29 10^6/uL (3.93-5.22); RDW 11.5 % (11.7-14.6); RDW-SD 36.6 fL; WBC 8.25 10^3/uL (4.4-10.8)
[2024-02-17] MEDS: Sucralfate 1 GM TAB PO (10:17)
[2024-02-17] MEDS: Mylanta Suspension 30 ML CUP (10:17)
[2024-02-17] MEDS: Ondansetron 4 MG/2 ML VIAL IVP (10:17)
[2024-02-17] MEDS: Lidocaine 2% Viscous 15 ML CUP (10:17)
[2024-02-17] MEDS: Normal Saline 1,000 ML 1000 ML IV (10:18)
[2024-02-17 10:30] LABS: ALT 49 U/L (14-59); AST 17 U/L (15-37); Albumin 3.8 g/dL (3.4-5.0); Alkaline Phosphatase 130 U/L (46-116); BUN 18 mg/dL (7-18); Bilirubin, Total 0.48 mg/dL (0.2-1.0); CREATININE 0.8 mg/dL (0.55-1.02); Calcium 9.1 mg/dL (8.5-10.1); Chloride 99 mmol/L (98-107); Glucose 232 mg/dL (74-106); Lipase 30 U/L (16-77); Magnesium 1.1 mg/dL (1.8-2.4); Potassium 3.7 mmol/L (3.5-5.1); Sodium 137 mmol/L (136-145); Total Protein 7.2 g/dL (6.4-8.2); Troponin I < 50 ng/L (< or =60)
[2024-02-17] MEDS: MAGNESIUM SULFATE 4 GM/100 ML BAG IVINF (10:53)
[2024-02-17 11:08] LABS: Bilirubin Negative (Negative); Blood Negative (Negative); Clarity Clear (Clear); Glucose 500 mg/dL (Negative); Ketones Trace mg/dL (Negative); Leukocyte Esterase Negative (Negative); Nitrite Negative (Negative); Specific Gravity 1.025 (1.005-1.025); Urobilinogen 0.2 mg/dL (Up to 0.2)
--- NOTE | 2024-02-17 14:04 | W.ED.GENAD ---
Discharge Plan Disposition Patient Disposition: Home Discharge Details Clinical Impression: Gastritis, Abdominal pain Primary Care Provider: Carl Nixon ED Provider: Lázaro Vides Home Meds and New Rx's Prescriptions: Continued (DME) blood-glucose meter [Easy Touch Glucose Monitor] Misc MISCELLANEOUS Patient Comments: Use 1 unit as directed four times a day (DME) Easy Touch Test Strip Strip MISCELLANEOUS Patient Comments: Use 1 strip via meter four times a day acetaminophen [Tylenol] 325 mg Tablet 650 mg PO Q4H PRN PRNQty: 0 0RF Patient Comments: pt states not taking any of her meds because she cant see her PCP ibuprofen [Ibuprofen IB] 200 mg Tablet 400 mg PO QID PRNQty: 0 0RF Patient Comments: pt states not taking any of her meds because she cant see her PCP hydrochlorothiazide 25 mg tablet 25 mg PO DAILY Qty: 30 1RF insulin glargine [Lantus Solostar U-100 Insulin] 100 unit/mL (3 mL) insulin pen 15 unit subcut HS Qty: 15 0RF metformin 1,000 mg tablet 1,000 mg PO BID Qty: 60 0RF lisinopril 40 mg tablet 40 mg PO DAILY esomeprazole magnesium 40 mg capsule,delayed release(DR/EC) 40 mg PO DAILY Discharge Instructions Instructions: Abdominal Pain, Adult ED, Gastritis ED Additional Instructions: After reviewing your CT and ultrasound imaging from outside hospital along with today's repeat labs I do not feel that further imaging is needed and it is very important that you follow the plan established by [facility] to follow-up with gastroenterology general surgery and your primary care provider. Please take all medications as prescribed Feel free to return to the emergency department for any new or significant worsening of symptoms Referrals: [facility] [Outside] (As previously arranged) Primary Care Provider [Outside] - 1 week (Please follow-up with [facility] for reassessment and further testing as already discussed by [facility]) HPI General Mode of arrival: ambulatory. Date/Time Provider Initiated Documentation: 02/17/24 09:30. Limitations to Documentation: no limitations. Information obtained by: patient and RN notes reviewed. History of Present Illness 59 year old F presents to the emergency department with the chief complaint of Epigastric pain, described as moderate and similar to prior episodes, Quality is described as aching, and is localized to the abdomen. Patient extremity (Right shoulder). Patient started experiencing this week(s) (1) and it has been constant. Eating improves symptom(s), No exacerbating factors reported . Patient notes no other symptoms.. Patient did receive the following treatments prior to arrival, none Related Data Home Medications ?Medication ?Instructions ?Recorded ?Confirmed acetaminophen 325 mg tablet 650 mg (2 x 325 mg) PO Q4H PRN PRN 11/29/18 02/17/24 (Tylenol) #0 tabs ibuprofen 200 mg tablet (Ibuprofen 400 mg (2 x 200 mg) PO QID PRN #0 11/29/18 02/17/24 IB) tabs hydrochlorothiazide 25 mg tablet 25 mg PO DAILY #30 tabs 01/26/23 02/17/24 insulin glargine 100 unit/mL (3 15 unit (0.15 mL) subcut HS #15 mL 06/19/23 02/17/24 mL) subcutaneous pen (Lantus Solostar U-100 Insulin) metformin 1,000 mg tablet 1,000 mg PO BID #60 tabs 06/19/23 02/17/24 blood sugar diagnostic (Easy Touch 07/12/23 02/17/24 Test Strip) blood-glucose meter (Easy Touch 07/12/23 02/17/24 Glucose Monitor) esomeprazole magnesium 40 mg 40 mg PO DAILY 02/17/24 02/17/24 capsule,delayed release lisinopril 40 mg tablet 40 mg PO DAILY 02/17/24 02/17/24 Previous Rx's ?Medication ?Instructions ?Recorded acetaminophen 325 mg tablet 650 mg (2 x 325 mg) PO Q4H PRN PRN 11/29/18 (Tylenol) #0 tabs ibuprofen 200 mg tablet (Ibuprofen 400 mg (2 x 200 mg) PO QID PRN #0 11/29/18 IB) tabs hydrochlorothiazide 25 mg tablet 25 mg PO DAILY #30 tabs 01/26/23 insulin glargine 100 unit/mL (3 15 unit (0.15 mL) subcut HS #15 mL 06/19/23 mL) subcutaneous pen (Lantus Solostar U-100 Insulin) metformin 1,000 mg tablet 1,000 mg PO BID #60 tabs 06/19/23 Allergies Allergy/AdvReac Type Severity Reaction Status Date / Time bacitracin Allergy rash Verified 02/17/24 09:26 Sulfa (Sulfonamide Allergy Hives Verified 02/17/24 09:26 Antibiotics) General Stated Complaint: Abd Prob NELSY: 3 Review of Systems Constitutional Constitutional: Denies chills, Denies fever(s) and Reports poor appetite Cardiovascular Cardiovascular: Denies chest pain and Denies dyspnea Respiratory Respiratory: Denies cough and Denies dyspnea Gastrointestinal Gastrointestinal: Reports as per HPI, Reports abdominal pain, Denies melena, Denies change in bowel habits, Denies constipation, Denies diarrhea, Reports nausea and Denies vomiting Genitourinary Genitourinary: Denies hematuria, Denies urinary incontinence, Denies urinary hesitancy and Denies urinary urgency Integumentary/Breasts Skin/Breast: Denies rash Exam Const General: cooperative Orientation: alert, awake and oriented x3 Resp Effort & Inspection: normal respiratory effort and able to speak in complete sentences Auscultation: clear to auscultation bilaterally Cardio Rate: regular rate Rhythm: regular rhythm Heart Sounds: S1 normal and S2 normal GI Palpation: soft, no hepatosplenomegaly, not firm, no guarding, no masses, no pulsatile masses, not rigid, no splenomegaly and tender in the epigastrum; Buitrago's sign negative, with no rebound tenderness and Rovsing's sign negative Auscultation: normal bowel sounds Back/Spine/Pelvis Back: no CVA tenderness Neuro General: patient alert, patient awake, patient oriented x3, gait normal and moves all extremities Course Vital Signs Vital signs: Vital Signs Temperature 35.7 C L 02/17/24 09:24 Pulse 93 H 02/17/24 09:24 Respiratory Rate 20 02/17/24 09:24 Blood Pressure 193/109 H 02/17/24 09:24 Pulse Oximetry 98 02/17/24 09:24 Temperature 36.6 C 02/17/24 10:41 Temperature Source Oral 02/17/24 10:41 Pulse 78 02/17/24 12:00 Respiratory Rate 18 02/17/24 10:41 Respiratory Effort Normal, Non-Labored 02/17/24 10:41 Blood Pressure 161/72 H 02/17/24 12:00 Blood Pressure Mean 103 02/17/24 12:00 Blood Pressure Position Sitting 02/17/24 10:41 Pulse Oximetry 94 02/17/24 12:00 Oxygen Delivery Method Room Air 02/17/24 10:41 Oxygen Flow Rate 0 02/17/24 09:24 Pain Level 8 02/17/24 10:41 Lab/Test Results Lab/Test Results: Laboratory Tests Range/Units 02/17/24 02/17/24 10:07 10:35 WBC (4.4-10.8) 10^3/uL 8.25 RBC (3.93-5.22) 10^6/uL 5.29 H Hgb (11.2-15.7) g/dL 16.3 H Hct (36.0-46.0) % 45.9 MCV (80-95) fL 87 MCH (27.0-33.0) pg 30.8 MCHC (32.0-36.0) % 35.5 RDW (11.7-14.6) % 11.5 L Plt Count (130-400) 10^3/uL 285 MPV (8.0-11.0) fL 11.4 H Immature Gran % % 0.1 Neutrophils % % 58.6 Lymphocytes % % 31.9 Monocytes % % 5.5 Eosinophils % % 3.3 Basophils % % 0.6 Nucleated RBC % (0.0-0.3) % 0.0 Absolute Neutrophils (1.2-6.7) 10^3/uL 4.84 Absolute Lymphocytes (1.2-3.4) 10^3/uL 2.63 Absolute Monocytes (0.1-0.8) 10^3/uL 0.45 Absolute Eosinophils (0.0-0.7) 10^3/uL 0.27 Absolute Basophils (0.0-0.2) 10^3/uL 0.05 Sodium (136-145) mmol/L 137 Potassium (3.5-5.1) mmol/L 3.7 Chloride (98-107) mmol/L 99 Carbon Dioxide (21.0-32.0) mmol/L 28.0 Anion Gap (3-11) mmol/L 10.0 BUN (7-18) mg/dL 18 Creatinine (0.55-1.02) mg/dL 0.8 Est GFR (CKD-EPI 2020) (mL/min/1.73m2) 84.30 Glucose (74-106) mg/dL 232 H Calcium (8.5-10.1) mg/dL 9.1 Magnesium (1.8-2.4) mg/dL 1.1 L Total Bilirubin (0.2-1.0) mg/dL 0.48 AST (15-37) U/L 17 ALT (14-59) U/L 49 Alkaline Phosphatase (46-116) U/L 130 H Troponin I (< or =60) ng/L < 50 Total Protein (6.4-8.2) g/dL 7.2 Albumin (3.4-5.0) g/dL 3.8 Lipase (16-77) U/L 30 Urine Color (Yellow) Yellow Urine Clarity (Clear) Clear Urine pH (5-8) 7.0 Ur Specific Alpha (1.005-1.025) 1.025 Urine Protein (Neg-Trace) mg/dL Negative Urine Ketones (Negative) mg/dL Trace H Urine Blood (Negative) Negative Urine Nitrite (Negative) Negative Urine Bilirubin (Negative) Negative Urine Urobilinogen (Up to 0.2) mg/dL 0.2 Ur Leukocyte Esterase (Negative) Negative Urine Glucose (Negative) mg/dL 500 H Medical Decision Making Patient presenting to the emergency department for chief complaint of epigastric pain. Patient reports this has been going on for 1 week and was seen by [facility] emergency department 2 days ago and had full workup with ultrasound CT and lab work but feels like she was not really given an answer to what caused her discomfort. Patient denies any significant worsening of symptoms but states discontinuation. Physical exam shows significant epigastric discomfort to palpation. No Buitrago sign or right upper quadrant tenderness, no other surgical abdominal tenderness/findings noted exam is otherwise noncontributory. Given significant workup recently will obtain labs, give IV fluids and request previous imaging before reordering imaging given patient stating no worsening just no improvement. Patient also given GI cocktail and Carafate Review of patient's labs showed no leukocytosis or shift, CMP does show hyperglycemia and slightly elevated alk phos of 130 otherwise other labs including troponin and lipase are within normal range. Of note patient's magnesium is 1.1 which we will replete via IV given shoulder significant hypomagnesemia. Was able to obtain records from previous emergency department visit and no significant worrisome change in labs, of note that patient is noncompliant with her overall medications but was recommended to restart her hypertensive medications which she was noted to be hypertensive here again along with placed on a PPI. Patient's ultrasound did show positive Buitrago sign but no other findings and CT imaging also was nonemergent in findings. Patient was given referrals to gastroenterology, primary care, and general surgery. Reassessed patient and patient does state overall improvement of symptoms. Given this I do not feel that repeat imaging is needed at this time which was discussed with patient and patient agreeable to this plan of care. Patient was encouraged to continue to use her prescribed medications and reassured that no significant worsening of lab values was noted so I do feel that she is able to follow-up on an outpatient basis. Return and follow-up precautions were discussed. After discussion of diagnosis and plan of care patient has no further needs, questions, or concerns and states clear understanding to return to the emergency department for any worsening symptoms. Patient this documentation was generated using [employer] system, please disregard any oddities of phrase or misspellings. Medical Records Medical records reviewed: Yes I reviewed the patient's medical records. Medical records narrative: Reviewed recent records from [facility] dated 02/15/2024. Lab Data Lab results reviewed: Yes I reviewed the patient's lab results. Quality:SDOH Health Related Social Needs: No Data to Display PFSH All Active Problems Abdominal pain (Acute) Gastritis (Acute) No-show for appointment (Acute) Left ACL tear (Acute) Tear of medial meniscus of left knee (Acute ~04/27/23) Lumbago without sciatica (Acute) CAP (community acquired pneumonia) (Acute) Apnea (Acute) Non compliance w medication regimen (Acute) Screening for colon cancer (Acute) GERD (gastroesophageal reflux disease) (Chronic) Type 2 diabetes mellitus (Acute) Constipation (Acute) Erythema multiforme (Acute) Chronic headaches (Acute) Sleeping difficulties (Acute) Benign paroxysmal vertigo (Acute) Arm numbness (Acute) Bilateral carpal tunnel syndrome (Acute) Pulmonary hypertension (Chronic) Diastolic dysfunction (Chronic) Atypical chest pain (Chronic) Herniated nucleus pulposus, C5-6 right (Acute) Diabetes mellitus type 2 in obese (Chronic) Essential hypertension (Chronic) Hypertensive urgency (Acute) Medical History History of depression Herpes simplex Insomnia Complicated grief Early satiety Obesity BPPV (benign paroxysmal positional vertigo) Diabetes mellitus Hypertension Surgical History History of tubal ligation Family History Mother Heart disease Ovarian cancer Social History Smoking/Tobacco Use Status: Never Smoking risk assessment performed?: Yes Alcohol Intake: current Alcohol Intake frequency: holidays/special occasions only Drug use: Never Substance use type: does not use Household members: spouse Housing: house Number of Children: 5 What is your relationship status?: Panel score (0-1 are the most socially isolated patients): 1 Seatbelt use: always Do you feel safe at home: Yes Do you feel safe in your relationship?: Yes History History 6 Para 5 Hx # Term Pregnancies Multiple births Hx # Pregnancies Ectopic pregnancies AB induced Hx Number of Living Children AB spontaneous
== END 2024-02-17 14:22 | disposition home or self-care (01) ==
PROVIDERS: Emergency Provider Nurse Practitioner Family; PCP Nurse Practitioner Family
DX: R10.9 Unspecified abdominal pain (principal); R11.0 Nausea; K29.70 Gastritis, unspecified, without bleeding
CPT/HCPCS: 80053; 83690; 96365; 96366; 96375; 99284; 81003; 83735; 84484; 85025; 99283; J2405; J3475

== ENCOUNTER 2024-06-21 13:22 | Emergency (ER) | payer BC, SELFPAY ==
[2024-06-21] VITALS (38 sets, daily range): BP systolic 100–160; BP diastolic 61–139; PULSE 90–127; RESP 12–27; TEMP 36.4; O2SAT 90–99
--- NOTE | 2024-06-21 13:15 | RT.EKG_ITS ---
APPROVED REPORT Exam: Resting ECG Reason for Exam: abd pain Patient Location: E HR:126 bpm ECG Measurements Heart Rate 126 AXIS TN 123 P 17 QRSd 71 QRS 10 QT 325 T 10 QTc 469 Conclusion Sinus tachycardia 126 normal axis no stemi
--- NOTE | 2024-06-21 14:00 | DI.CT_ITS ---
Exam(s) CT CHEST PE CTA EXAM: CT CHEST PE CTA CLINICAL HISTORY: Chest Pain, hx of breast CA and chemo. TECHNIQUE: Imaging Protocol: Axial CT angiography was performed with multi-slice acquisition and mu lti-planar and/or 3D reconstructions. Lung Computer Aided Detection (CAD) was utilized. CONTRAST MATERIAL: Intravenous: Omnipaque 350 contrast volume:80 mL COMPARISON: CT CT CHEST PE CTA from 12/19/2020 FINDINGS: Tracheobronchial tree: Patent where visualized. No bronchiectasis. Pulmonary parenchyma: No consolidation or dominant measurable mass. No architectural distortion. Ther e are bilateral calcified granuloma. These are stable. Pulmonary Arteries: No evidence of filling defect to suggest pulmonary emboli. Mediastinum and Nancy: No dominant adenopathy or fluid collection. The esophagus is unremarkable. Ca lcified lymph nodes are seen in the mediastinum consistent with prior granulomatous disease. There i s a small hiatal hernia. Visualized thyroid gland: Unremarkable. Pleura: No effusion or pneumothorax. Heart: The heart is not dilated. No coronary artery calcifications are seen. No pericardial effusion. Aorta: Thoracic aorta non-dilated. No evidence of dissection. Mild atherosclerotic calcification. Upper abdomen: There is diverticulosis seen in the colon. Soft tissues: Unremarkable. Bones: Within normal limits for the patient's age. IMPRESSION: 1. No evidence of pulmonary embolism, thoracic aortic dissection or aneurysm. 2. No acute pulmonary process. RADIATION DOSE DELIVERED: 82.59mGy.cm Total DLP DATA REPOSITORY: All CT scans at this facility are submitted to the National Radiology Data Registry (NRDR) Dose Index Registry (DIR) with the [employer] (ACR). RADIATION OPTIMIZATION: All CT scans at this facility use at least one of these dose optimization te chniques: automated exposure control; mA and/or kV adjustment per patient size (includes targeted exa ms where dose is matched to clinical indication); or iterative reconstruction.
[2024-06-21] MEDS: Ondansetron 4 MG/2 ML VIAL IVP (14:06)
[2024-06-21] MEDS: MORPHine 10 MG/ML VIAL 2 MG IVP (14:06)
[2024-06-21 14:08] LABS: Abs Immature Grans 2.16 10^3/uL (0.0-0.06); Basophils % 0.1 %; HCT 38.4 % (36.0-46.0); HGB 13.4 g/dL (11.2-15.7); Immature Grans % 5.2 %; Lymphocytes % 2.4 %; MCH 31.5 pg (27.0-33.0); MCHC 34.9 % (32.0-36.0); MCV 90 fL (80-95); MPV 11.2 fL (8.0-11.0); Neutrophils % 91.3 %; Platelet Count 215 10^3/uL (130-400); RBC 4.26 10^6/uL (3.93-5.22); RDW 14.5 % (11.7-14.6); RDW-SD 47.6 fL
[2024-06-21 14:21] LABS: Absolute Basophil Count 0.04 10^3/uL (0.0-0.2); Absolute Monocyte Count 0.42 10^3/uL (0.1-0.8); Absolute Neutrophil Count 38.15 10^3/uL (1.2-6.7); PTT Activated 20.1 sec (23.6-32.8)
[2024-06-21 14:22] LABS: WBC 41.78 10^3/uL (4.4-10.8)
--- NOTE | 2024-06-21 14:26 | ED.GENADUL_ITS ---
Discharge Plan Discharge Details Chief Complaint: Abd Prob Primary Care Provider: ELLYN KAHN ED Provider: Rita Driver Home Meds and New Rx's Prescriptions: No Action (DME) blood-glucose meter [Easy Touch Glucose Monitor] Misc MISCELLANEOUS Patient Comments: Use 1 unit as directed four times a day (DME) Easy Touch Test Strip Strip MISCELLANEOUS Patient Comments: Use 1 strip via meter four times a day acetaminophen [Tylenol] 325 mg Tablet 650 mg PO Q4H PRN PRNQty: 0 0RF Patient Comments: pt states not taking any of her meds because she cant see her PCP hydrochlorothiazide 25 mg tablet 25 mg PO DAILY Qty: 30 1RF metformin 1,000 mg tablet 1,000 mg PO BID Qty: 60 0RF lisinopril 40 mg tablet 40 mg PO DAILY ondansetron HCl 8 mg tablet 8 mg PO TID glipizide 5 mg tablet 5 mg PO DAILY Patient Comments: Take 1 tablet by mouth every morning for diabetes olanzapine 5 mg tablet 5 mg PO .COMPLEX PRN Patient Comments: TAKE 1 TABLET BY MOUTH NIGHTLY ON NIGHTS ONE THROUGH FOUR OF CHEMOTHERAPY Rx Instructions: 5 mg orally as directed PRN; prochlorperazine maleate 10 mg tablet 10 mg PO Q8H PRN Patient Comments: TAKE 1 TABLET BY MOUTH EVERY 6 HOURS NEEDED FOR NAUSEA insulin glargine [Lantus Solostar U-100 Insulin] 100 unit/mL (3 mL) insulin pen 23 unit subcut HS HPI General Mode of arrival: ambulatory . Date/Time Provider Initiated Documentation: 06/21/24 13:32 . Limitations to Documentation: no limitations . Information obtained by: patient, RN notes reviewed and old records reviewed . HPI Narrative: 59-year-old female presents to the ER with a chief complaint of chest pain which began yesterday. She reports constant in nature, describes as pressure. She is currently undergoing chemotherapy for breast cancer and had a last chemotherapy dose on Sunday. She also did get the Onpro injection to increase her white blood cells. She reports a mild productive cough, some shortness of breath denies any nausea vomiting diarrhea or fever or chills. She is slightly tachycardic upon arrival with a heart rate of 109 at rest. She has chemotherapy once every 2 weeks. Has a history of depression insomnia obesity benign positional vertigo diabetes mellitus and hypertension. Related Data Home Medications ?Medication ?Instructions ?Recorded ?Confirmed acetaminophen 325 mg tablet 650 mg (2 x 325 mg) PO Q4H PRN PRN 11/29/18 06/21/24 (Tylenol) #0 tabs hydrochlorothiazide 25 mg tablet 25 mg PO DAILY #30 tabs 01/26/23 06/21/24 metformin 1,000 mg tablet 1,000 mg PO BID #60 tabs 06/19/23 06/21/24 blood sugar diagnostic (Easy Touch 07/12/23 06/21/24 Test Strip) blood-glucose meter (Easy Touch 07/12/23 06/21/24 Glucose Monitor) lisinopril 40 mg tablet 40 mg PO DAILY 02/17/24 06/21/24 glipizide 5 mg tablet 5 mg PO DAILY 06/21/24 06/21/24 insulin glargine 100 unit/mL (3 23 unit subcut HS 06/21/24 06/21/24 mL) subcutaneous pen (Lantus Solostar U-100 Insulin) olanzapine 5 mg tablet 5 mg PO .COMPLEX PRN 06/21/24 06/21/24 ondansetron HCl 8 mg tablet 8 mg PO TID 06/21/24 06/21/24 prochlorperazine maleate 10 mg 10 mg PO Q8H PRN 06/21/24 06/21/24 tablet Previous Rx's ?Medication ?Instructions ?Recorded acetaminophen 325 mg tablet 650 mg (2 x 325 mg) PO Q4H PRN PRN 11/29/18 (Tylenol) #0 tabs hydrochlorothiazide 25 mg tablet 25 mg PO DAILY #30 tabs 01/26/23 metformin 1,000 mg tablet 1,000 mg PO BID #60 tabs 06/19/23 Allergies Allergy/AdvReac Type Severity Reaction Status Date / Time bacitracin Allergy rash Verified 06/21/24 13:37 Sulfa (Sulfonamide Allergy Hives Verified 06/21/24 13:37 Antibiotics) General Stated Complaint: Abd Prob NELSY: 3 Review of Systems All systems reviewed & are unremarkable except as noted in HPI and below Cardiovascular Cardiovascular: Reports as per HPI, Reports chest pain and Reports dyspnea Respiratory Respiratory: Reports cough and Reports dyspnea Gastrointestinal Gastrointestinal: Denies diarrhea, Denies nausea and Denies vomiting Exam Narrative Exam Narrative: Constitutional: Alert and oriented x3. Appears stated age. Normal body habitus. Appears chronically ill. Head: Normocephalic, no trauma. Eyes: Pupils PERRL, Red reflex noted, EOM's intact. Eyelids symmetrical without lesions, discharge, or swelling. ENT: Bilateral TM's WNL, External ear normal to inspection, no mastoid TTP, swelling, or erythema, Nasal turbinates WNL, no nasal discharge. Normal dentition, Posterior pharynx WNL, no exudate. Chest: Sinus tachycardia rate of 1 10-1 17 normal S1, S2, distal pulses intact. Resp: Lungs clear to auscultation bilaterally, no wheezes, rales, or rhonchi. Abdomen: Soft, non-distended, Normoactive bowel sounds all 4 quads. Musculoskeletal: Normal gait, Moves all 4 extremities without difficulty. Skin: No suspicious rashes or lesions. Capillary refill less than 2 sec. Neurologic: Cranial nerves II-XII intact. Alert and oriented x 3. Motor: No deficits noted. Sensory: Intact bilaterally all 4 extremities. Hematologic/Lymphatic: No ecchymosis, no lymphadenopathy. Course Vital Signs Vital signs: Vital Signs Temperature 36.4 C 06/21/24 13:33 Pulse 102 H 06/21/24 13:33 Respiratory Rate 18 06/21/24 13:33 Blood Pressure 134/99 H 06/21/24 13:33 Pulse Oximetry 99 06/21/24 13:33 Temperature 36.4 C 06/21/24 13:33 Temperature Source Oral 06/21/24 13:33 Pulse 102 H 06/21/24 13:33 Respiratory Rate 18 06/21/24 13:33 Respiratory Effort Normal 06/21/24 14:08 Blood Pressure 134/99 H 06/21/24 13:33 Blood Pressure Position Sitting 06/21/24 13:33 Pulse Oximetry 99 06/21/24 13:33 Oxygen Delivery Method Room Air 06/21/24 13:33 Oxygen Flow Rate 0 06/21/24 13:33 Pain Level 8 06/21/24 13:33 Lab/Test Results Lab/Test Results: Laboratory Tests Range/Units 06/21/24 14:05 PT (9.1-11.1) sec 10.0 INR (0.9-1.1) 1.0 APTT (23.6-32.8) sec 20.1 L Medical Decision Making 59-year-old female presents to the ER with a chief complaint of chest pain which began yesterday. She reports constant in nature, describes as pressure. She is currently undergoing chemotherapy for breast cancer and had a last chemotherapy dose on Sunday. She also did get the Onpro injection to increase her white blood cells. She reports a mild productive cough, some shortness of breath denies any nausea vomiting diarrhea or fever or chills. She is slightly tachycardic upon arrival with a heart rate of 109 at rest. She has chemotherapy once every 2 weeks. Has a history of depression insomnia obesity benign positional vertigo diabetes mellitus and hypertension. Workup ordered CBC CMP troponin, PT PTT proBNP and lipase. CT of chest PE prot ocol ordered to rule out PE. Patient requesting something for pain given 2 mg of morphine and 4 of Zofran. Patient has been taking Tylenol at home. Patient does have a white blood cell count of 41,000 however I do believe that this is due to her Onpro medication which increases her white blood cell count which she received on Sunday. Glucose is 330, magnesium low at 1.4, alk phos 206 initial troponin within normal limits proBNP 22. Lipase 20. Will give p.o. magnesium here in the department. Patient reports some improvement in pain after the morphine. Care is to be handed off to oncoming provider Leora Hooper NP pending CT result and repeat troponin results. Most likely disposition is discharge pending CT result with follow-up with oncology team on Sunday. This text was generated using Ontela dictation system, please disregard any oddities of phrase or misspellings. Medical Records Medical records reviewed: Yes I reviewed the patient's medical records. Lab Data Lab results reviewed: Yes I reviewed the patient's lab results. Labs: Laboratory Tests Range/Units 06/21/24 14:05 WBC (4.4-10.8) 10^3/uL 41.78 H* RBC (3.93-5.22) 10^6/uL 4.26 Hgb (11.2-15.7) g/dL 13.4 Hct (36.0-46.0) % 38.4 MCV (80-95) fL 90 MCH (27.0-33.0) pg 31.5 MCHC (32.0-36.0) % 34.9 RDW (11.7-14.6) % 14.5 Plt Count (130-400) 10^3/uL 215 MPV (8.0-11.0) fL 11.2 H Immature Gran % % 5.2 Neutrophils % % 91.3 Lymphocytes % % 2.4 Monocytes % % 1.0 Eosinophils % % 0.0 Basophils % % 0.1 Nucleated RBC % (0.0-0.3) % 0.0 Absolute Neutrophils (1.2-6.7) 10^3/uL 38.15 H Absolute Lymphocytes (1.2-3.4) 10^3/uL 1.00 L Absolute Monocytes (0.1-0.8) 10^3/uL 0.42 Absolute Eosinophils (0.0-0.7) 10^3/uL 0.00 Absolute Basophils (0.0-0.2) 10^3/uL 0.04 RBC Morphology Normal PT (9.1-11.1) sec 10.0 INR (0.9-1.1) 1.0 APTT (23.6-32.8) sec 20.1 L Sodium (136-145) mmol/L 141 Potassium (3.5-5.1) mmol/L 4.1 Chloride (98-107) mmol/L 101 Carbon Dioxide (21.0-32.0) mmol/L 23.1 Anion Gap (3-11) mmol/L 16.9 H BUN (7-18) mg/dL 28 H Creatinine (0.55-1.02) mg/dL 1.0 Est GFR (CKD-EPI 2020) (mL/min/1.73m2) 64.49 Glucose (74-106) mg/dL 330 H Calcium (8.5-10.1) mg/dL 8.9 Magnesium (1.8-2.4) mg/dL 1.4 L Total Bilirubin (0.2-1.0) mg/dL 0.25 AST (15-37) U/L 9 L ALT (14-59) U/L 22 Alkaline Phosphatase (46-116) U/L 206 H Troponin I (<or=51) ng/L 5 NT-Pro-B Natriuret Pep (<300) pg/mL 22 Total Protein (6.4-8.2) g/dL 7.0 Albumin (3.4-5.0) g/dL 3.7 Lipase (<78) U/L 20 Quality:SDOH Health Related Social Needs: No Data to Display PFSH All Active Problems No-show for appointment (Acute) Left ACL tear (Acute) Tear of medial meniscus of left knee (Acute ~04/27/23) Lumbago without sciatica (Acute) CAP (community acquired pneumonia) (Acute) Apnea (Acute) Non compliance w medication regimen (Acute) Screening for colon cancer (Acute) GERD (gastroesophageal reflux disease) (Chronic) Type 2 diabetes mellitus (Acute) Constipation (Acute) Erythema multiforme (Acute) Chronic headaches (Acute) Sleeping difficulties (Acute) Benign paroxysmal vertigo (Acute) Arm numbness (Acute) Bilateral carpal tunnel syndrome (Acute) Pulmonary hypertension (Chronic) Diastolic dysfunction (Chronic) Atypical chest pain (Chronic) Herniated nucleus pulposus, C5-6 right (Acute) Diabetes mellitus type 2 in obese (Chronic) Essential hypertension (Chronic) Hypertensive urgency (Acute) Medical History History of depression Herpes simplex Insomnia Complicated grief Early satiety Obesity BPPV (benign paroxysmal positional vertigo) Diabetes mellitus Hypertension Surgical History History of tubal ligation Family History Mother Heart disease Ovarian cancer Social History Smoking/Tobacco Use Status: Never Smoking risk assessment performed?: Yes Alcohol Intake: current Alcohol Intake frequency: holidays/special occasions only Drug use: Never Substance use type: does not use Household members: spouse Housing: house Number of Children: 5 What is your relationship status?: Panel score (0-1 are the most socially isolated patients): 1 Seatbelt use: always Do you feel safe at home: Yes Do you feel safe in your relationship?: Yes History History 6 Para 5 Hx # Term Pregnancies Multiple births Hx # Pregnancies Ectopic pregnancies AB induced Hx Number of Living Children AB spontaneous Sign Out Sign Out Data: Sign Out Comment: 59-year-old female who past medical history of breast cancer had chemotherapy on Sunday and Onpro to increase her white blood cells began with upper epigastric pressure yesterday. Initial troponin negative awaiting CT chest rule out PE. Does have white blood cell count of 41,000 I do think this is due to her Onpro medication. Last updated by Rita Driver NP at 06/21/24 15:52
[2024-06-21 14:31] LABS: ALT 22 U/L (14-59); AST 9 U/L (15-37); Albumin 3.7 g/dL (3.4-5.0); Alkaline Phosphatase 206 U/L (46-116); Anion Gap 16.9 mmol/L (3-11); BUN 28 mg/dL (7-18); Bilirubin, Total 0.25 mg/dL (0.2-1.0); CO2 23.1 mmol/L (21.0-32.0); Calcium 8.9 mg/dL (8.5-10.1); Chloride 101 mmol/L (98-107); Estimated GFR 64.49 (mL/min/1.73m2); Glucose 330 mg/dL (74-106); Lipase 20 U/L (<78); Magnesium 1.4 mg/dL (1.8-2.4); NT-proBNP 22 pg/mL (<300); Potassium 4.1 mmol/L (3.5-5.1); Sodium 141 mmol/L (136-145); Troponin I 5 ng/L (<or=51)
[2024-06-21 14:37] LABS: Diff Comment Agrees w/ Instrument; RBC Morphology Normal
[2024-06-21] MEDS: Normal Saline - Diluent 50 ML VIAL IJ (15:09)
[2024-06-21] MEDS: Omnipaque 350 MG/ML 100 ML BTL 80 ML IJ (15:10)
[2024-06-21] MEDS: Normal Saline Flush 10 ML SYR IVP (15:11)
[2024-06-21 15:56] LABS: Troponin I 6 ng/L (<or=51)
--- NOTE | 2024-06-21 16:10 | DI.VRAD_ITS ---
PROCEDURE INFORMATION: Exam: CTA Chest With Contrast Exam date and time: 06/21/2024 3:08 PM Age: 59 years old Clinical indication: Other: Chest pain, HX of breast CA and chemo; Additional info: Injection rate was lowered duet o porr iv access TECHNIQUE: Imaging protocol: Computed tomographic angiography of the chest with contrast. Exam focused on the arteries. 3D rendering (Not supervised by radiologist): MIP and/or 3D reconstructed images were created by the technologist. Contrast material: OMNIPAQUE 350; Contrast volume: 80 ml; Contrast route: INTRAVENOUS (IV); COMPARISON: CT CHEST PE CTA 12/19/2020 10:56 PM FINDINGS: Pulmonary arteries: The pulmonary arteries are not enlarged. There is no evidence of filling defects within the pulmonary arterial circulation to suggest pulmonary embolism. Great vessels off aortic arch: The great vessels are normal. Aorta: The aorta demonstrates mild atherosclerotic calcification. Lungs: There is a right pulmonary parenchymal and mediastinal calcification consistent with remote granulomatous organism exposure. The left lower lobe pneumonia present on 12/19/2020 has resolved. Pleural spaces: There is no evidence of pneumothorax. There are no pleural effusions present. Heart: There is moderate left ventricular hypertrophy.The right ventricular to left ventricular ratio is abnormal measuring 1.5. Consider pulmonary hypertension. Coronary arteries: There is mild atherosclerotic calcification of the coronary arteries. Lymph nodes: There is no evidence of lymphadenopathy. Diaphragm: A small hiatal hernia is present. Bones/joints: Unremarkable. No acute fracture. Soft tissues: The upper abdominal viscera are unremarkable. The soft tissues of the extrathoracic region are unremarkable. IMPRESSION: 1. There is no evidence of filling defects within the pulmonary arterial circulation to suggest pulmonary embolism. 2. No active cardiopulmonary disease. Dictated and Authenticated by: Tomas Erazo MD. Ordering:YASMINE Salinas MD
--- OUTSIDE RECORDS SUMMARY | 2024-06-21 16:10 | XMS_ITS | Continuity of Care Document ---
Author Organization [facility] Ambulatory Clinics Address [address] [place] [address] Care Team Providers Care Plant And Machinery Valuer Name Role Phone ELLYN KAHN APRN Primary Care Physician Encounter [facility] NBR [id number] Date(s): 04/08/24 - 04/08/24 [facility] Ambulatory Clin[facility] [address] [place] [address]- [place] Discharge Disposition: Home Allergies, Adverse Reactions, Alerts Substance Criticality Severity Reaction Reaction Severity Status Triple Antibiotic Low criticality Mild Persist ent redness of skin Active sulfa drugs 1 High criticality Moderate Rash Active 1tolerates hctz, no rash Assessment and Plan Future Appointments Future Scheduled Tests Laboratory* Pathology Request 07/01/23 Radiology* US Abdomen Complete 11/09/23 * US Abdomen Complete 11/26/23 * US Breast Limited Left 02/21/24 * MG Mammo Diagnostic Left 02/28/24 * MG Mammo Diagnostic Left 02/19/24 * MG Mammo Screening Bilateral 02/28/24 * MG Mammo Screening Bilateral 02/19/24 * NM Hepatobiliary Imaging w/ Drug 04/24/24 Immunizations Given and Recorded Vaccine Date Status Refusal Reason influenza, unspecified formulation 05/30/21 Record ed pneumococcal 23-polyvalent vaccine 12/18/19 Record ed Td(adult) unspecified formulation 04/18/12 Recorde d Medications hydroCHLOROthiazide 12.5 mg oral tablet 12.5 [...] 40 mg = 1 cap, Oral, Daily, 30 minutes before evenng meal, # 30 cap, 3 Refill(s), Pharmacy: [id number], 167.64, cm, 03/21/24 8:12:00 EDT, Height, 81.6, kg, 03/21/24 8:16:00 EDT, Weight Dosing Start Date: 03/21/24 Stop Date: 07/19/24 Status: Ordered Tylenol Extra Strength 500 mg oral tablet 1,000 mg = 2 tab, Oral, every 8 hr, PRN as needed for pain, 0 Refill(s) Start Date: 07/15/23 Status: Ordered Problem List Condition Confirmation Course Effective Dates Status H ealth Status Informant Diabetes Confirmed Active Diarrhea Confirmed Active Epigastric pain Confirmed Active Pyrosis Confirmed Active High cholesterol Confirmed Active Hypertension Confirmed Active 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 Procedures Procedure Date Related Diagnosis Body Site Status Mammogram Completed Social History Social History Type Response Tobacco Never tobacco user T obacco Use:. Sex Sex Representation Female (finding) Patient Care team information Care Team Personnel Name: ELLYN KAHN APRN Position: No Access Member Role: Primary Care Physician Address: [address] [place] [address] Care Team Related Persons Name: TRACI ESTRADA Name: TRACI ESTRADA Insurance Providers Guarantor name: EARL ARGUELLOMICHELLE [employer] Plan Information #: 1 Payer: [facility] [employer] Member Number: NA Policy Number: NA
--- OUTSIDE RECORDS SUMMARY | 2024-06-21 16:10 | XMS_ITS | Continuity of Care Document ---
Author Organization [facility] Address [address] [place] [id number] Care Team Providers Care Steel Post Installer Supervisor Name Role Phone ELLYN KAHN APRN Primary Care Physician Encounter [facility] NBR [id number] Date(s): 04/24/24 - 04/24/[address] [address]- Discharge Disposition: Home or Self Care Attending Physician: Royce Robins MD Admitting Physician: Royce Robins MD Referring Physician: Royce Robins MD Allergies, Adverse Reactions, Alerts Substance Criticality Severity [...] 02/28/24 * MG Mammo Screening Bilateral 02/19/24 Immunizations Given and Recorded Vaccine Date Status [...] meal, # 30 cap, 3 Refill(s), Pharmacy: [id number], 167.64, cm, 03/21/24 8:12:00 EDT, Height, 81.6, [...] Related Diagnosis Body Site Status Mammogram Completed Results Radiology Reports * Exam Date Time Procedure Performing Provider Status 04/24/24 11:44 AM NM Hepatobiliary Imaging w/ Drug Hadl ock, Christy; Auth (Verified) Notes: (NM Hepatobiliary Imaging w/ Drug) Reason For Exam: Right upper quadrant abdominal pain, no evidence of gallstones, evaluate for biliary dyskinesia NM Hepatobiliary Imaging w/ Drug EXAM DESCRIPTION: NM Hepatobiliary Imaging w/ Drug 04/24/2024 11:44 RADIOPHARM: A nuclear medicine biliary scan was performed following IV administration of 5.1 mCi of 99 M technetium mebrofenin INDICATION: RIGHT UPPER QUADRANT ABDOMINAL PAIN, NO EVIDENCE OF GALLSTONES, EVALUATE FOR BILIARY DYSKINESIA COMPARISON: None. FINDINGS: Normal visualization of gallbladder, biliary and small bowel activity with no evidence of acute cholecystitis or biliary obstruction. Patient experienced no abdominal pain with CCK infusion. Normal gallbladder ejection fraction of 61%. IMPRESSION: Normal study. JOB #: [id number] Final Signed by: Patricio Quarles MD Signed (Electronic Signature): 04/24/2024 11:56 am Social History Social History Type Response Tobacco Never tobacco user T obacco Use:. Sex Sex Representation Female (finding) Patient Care team information Care Team Personnel Name: ELLYN KAHN APRN Position: No Access Member Role: Primary Care Physician Address: [address] [place] [address] Care Team Related Persons Name: TRACI ESTRADA Name: TRACI ESTRADA Insurance Providers Guarantor name: EARL ESTRADA Health Plan Information #: 1 Payer: [facility] [employer] Member Number: [id number] Policy Number: NA Health Plan Information #: 2 Payer: [facility] [employer] Member Number: [id number] Policy Number: NA
--- OUTSIDE RECORDS SUMMARY | 2024-06-21 16:10 | XMS_ITS | Continuity of Care Document ---
Author Organization [facility] Address [address] [place] [id number] Care Team Providers Care Director Of Sales And Marketing Name Role Phone ELLYN KAHN APRN Primary Care Physician Encounter [facility] NBR [id number] Date(s): 12/27/23 - 04/15/[address] [address] Encounter Diagnosis Instability of left knee joint(Discharge Diagnosis) - 12/27/23 Other instability, left knee(Final) - Discharge Disposition: Home-No Follow Up Attending Physician: May Valdez, PT, DPT Admitting Physician: ELLYN KAHN APRN Referring Physician: ELLYN KAHN APRN Allergies, Adverse Reactions, Alerts Substance Criticality Severity [...] * NM Hepatobiliary Imaging w/ Drug 04/24/24 Functional Status 01/01/24 Prior ADL Status Independent Prior Mobility Status Independent Prior Instrumental ADL Level Independent Prior Cognitive-Communication Skills Ind ependent 12/27/23 Patient's Responsibilities Rehab Employe d Immunizations Given and Recorded Vaccine Date Status [...] meal, # 30 cap, 3 Refill(s), Pharmacy: [id number], 167.64, cm, 03/21/24 8:12:00 EDT, Height, 81.6, [...] Access Member Role: Primary Care Physician Address: [address] [place], [place] [address] Care Team Related Persons Name: TRACI ESTRADA Name: TRACI ESTRADA Insurance Providers Guarantor name: ERAL ESTRADA Health Plan Information #: 1 Payer: [facility] Member Number: [id number] Policy Number: NA Health Plan Information #: 2 Payer: [facility] FEDERAL Member Number: NA Policy Number: NA
--- OUTSIDE RECORDS SUMMARY | 2024-06-21 16:10 | XMS_ITS | Continuity of Care Document ---
Author Organization [facility] Ambulatory Clinics Address [address] [place] [address] Care Team Providers Care Store Grocery Merchandiser Name Role Phone NAT KAHN APRN Primary Care Physician Encounter [facility] FIN NBR [id number] Date(s): 03/21/24 - 03/21/24 [facility] Ambulatory Clinics [address] [place] [address] us Encounter Diagnosis RUQ abdominal pain(Discharge Diagnosis) - 03/21/24 Epigastric pain(Discharge Diagnosis) - 03/21/24 Nausea and vomiting(Discharge Diagnosis) - 03/21/24 Diarrhea(Discharge Diagnosis) - 03/21/24 Pyrosis(Discharge Diagnosis) - 03/21/24 Melena(Discharge Diagnosis) - 03/21/24 Discharge Disposition: Home or Self Care Attending Physician: Hemalatha Bar APRN Referring Physician: NAT KAHN APRN Allergies, Adverse Reactions, Alerts Substance Criticality Severity Reaction Reaction Severity Status Triple Antibiotic Low criticality Mild Persist ent redness of skin Active sulfa drugs 1 High criticality Moderate Rash Active 1tolerates hctz, no rash Assessment and Plan Extracted from: Title:Office Visit Note-GI Author:Hemalatha Bar APRN Date:03/21/24 1.??RUQ abdominal pain??R10. 11 ??Positive Buitrago sign with??abdominal ultrasound.?? No cholelithiasis or cholecystitis seen.?? Will refer patient to Dr. Nickie José in general surgery for further evaluation??of gallbladder disease.?? Pain occurs after eating??but not necessarily with fatty foods. Ordered: Follow-up Appointment Request [facility], *Est. 04/04/24 +/- 2 days, Future Order, after EGD and colonoscopy, In Approximately, [facility] Gastroenterology Surgical Procedure Booking Request [facility], 03/21/24 8:33:00 EDT, 05/22/24 10:00:00 EDT, pyrosis, diarrhea, RUQ abdominal pain Epigastric pain Nausea and vomiting Diarrhea Pyrosis, Outpatient, EGD & Colonoscopy, Primary Procedure, 45, General, 30, Jeffery Batres MD, Consent to read:... ?? 2.??Epigastric pain??R10.13 ??Question if esophagitis or gastritis.?? EGD to assess for mucosal injury, inflammation, H. pylori infection and celiac disease. ??Restart Nexium 40 mg 30 minutes before evening meal. ??Discussed reflux triggering foods and beverages to avoid,??avoid eating 3 hours before bedtime, and small frequent meals. Advised to avoid NSAIDS including Meloxicam. Ordered: Follow-up Appointment Request [facility], *Est. 04/04/24 +/- 2 days, Future Order, after EGD and colonoscopy, In Approximately, [facility] Gastroenterology Surgical Procedure Booking Request [facility], 03/21/24 8:33:00 EDT, 05/22/24 10:00:00 EDT, pyrosis, diarrhea, RUQ abdominal pain Epigastric pain Nausea and vomiting Diarrhea Pyrosis, Outpatient, EGD & Colonoscopy, Primary Procedure, 45, General, 30, Jeffery Batres MD, Consent to read:... ?? 3.??Nausea and vomiting??R11.2 ??EGD as above. Ordered: Follow-up Appointment Request [facility], *Est. 04/04/24 +/- 2 days, Future Order, after EGD and colonoscopy, In Approximately, [facility] Gastroenterology Surgical Procedure Booking Request [facility], 03/21/24 8:33:00 EDT, 05/22/24 10:00:00 EDT, pyrosis, diarrhea, RUQ abdominal pain Epigastric pain Nausea and vomiting Diarrhea Pyrosis, Outpatient, EGD & Colonoscopy, Primary Procedure, 45, General, 30, Jeffery Batres MD, Consent to read:... ?? 4.??Diarrhea??R19.7 ??Colonoscopy to rule out colitis and neoplasia. ??She has never had??colonoscopy.?? She is average risk other than symptoms.?? Recommend high-fiber diet. Ordered: Follow-up Appointment Request [facility], *Est. 04/04/24 +/- 2 days, Future Order, after EGD and colonoscopy, In Approximately, [facility] Gastroenterology Surgical Procedure Booking Request [facility], 03/21/24 8:33:00 EDT, 05/22/24 10:00:00 EDT, pyrosis, diarrhea, RUQ abdominal pain Epigastric pain Nausea and vomiting Diarrhea Pyrosis, Outpatient, EGD & Colonoscopy, Primary Procedure, 45, General, 30, Jeffery Batres MD, Consent to read:... ?? 5.??Pyrosis??R12 ??EGD as above. Ordered: Follow-up Appointment Request [facility], *Est. 04/04/24 +/- 2 days, Future Order, after EGD and colonoscopy, In Approximately, [facility] Gastroenterology Surgical Procedure Booking Request [facility], 03/21/24 8:33:00 EDT, 05/22/24 10:00:00 EDT, pyrosis, diarrhea, RUQ abdominal pain Epigastric pain Nausea and vomiting Diarrhea Pyrosis, Outpatient, EGD & Colonoscopy, Primary Procedure, 45, General, 30, Jeffery Batres MD, Consent to read:... ?? 6.??Melena??K92.1 ??EGD and colonoscopy as aboe. Ordered: Follow-up Appointment Request [facility], *Est. 04/04/24 +/- 2 days, Future Order, after EGD and colonoscopy, In Approximately, [facility] Gastroenterology ?? Orders: NexIUM 40 mg oral delayed release capsule, 40 mg = 1 cap, Oral, Daily, 30 minutes before evenng meal, # 30 cap, 3 Refill(s), Pharmacy: [id number], 167.64, cm, 03/21/24 8:12:00 EDT, Height, 81.6, kg, 03/21/24 8:16:00 EDT, Weight Dosing /trans Future Appointments Future Scheduled Tests Laboratory* Pathology Request 07/01/23 Radiology* US Abdomen Complete 11/09/23 * US Abdomen Complete 11/26/23 * US Breast Limited Left 02/21/24 * MG Mammo Diagnostic Left 02/28/24 * MG Mammo Diagnostic Left 02/19/24 * MG Mammo Screening Bilateral 02/28/24 * MG Mammo Screening Bilateral 02/19/24 Functional Status 03/21/24 Other exposure to Infectious Disease Non e Immunizations Given and Recorded Vaccine Date Status [...] meal, # 30 cap, 3 Refill(s), Pharmacy: [id number], 167.64, cm, 03/21/24 8:12:00 EDT, Height, 81.6, [...] Instability of left knee joint Confirmed Active Melena Confirmed Active Methicillin resistant Staphylococcus aureus 1 Confirmed 07/18/23 Active MRSA infection Confirmed Active Nausea and vomiting Confirmed Active Coccydynia Confirmed Active RUQ abdominal pain Confirmed Active 1Problem added by Rule (LH_IC_MDRO_MRSA) following Wound Culture Deep from Abscess collected on 16-JUL-2023 16:51:00 EST tested positive for MRSA. Procedures Procedure Date Related Diagnosis Body Site Status Arthroscopy of knee 08/2022 Compl eted Vital Signs Most recent to oldest [Reference Range]: 1 Apical Heart Rate [60-100 bpm] 96 bpm (03/21/24 8:12 AM) Blood Pressure [90-140/60-90 mmHg] 130/9 1mmHg (03/21/24 8:12 AM) Mean Arterial Pressure, Cuff [65-140 mmH g] 104 mmHg (03/21/24 8:12 AM) Weight 81.6 kg (03/21/24 8:12 AM) Weight Measured (lbs) 179.897 lb (03/21/24 8:12 AM) Weight Dosing 81.600 kg (03/21/24 8:12 AM) [place] Body Weight Calculated 59.3 kg (03/21/24 8:12 AM) Height 167.64 cm (03/21/24 8:12 AM) Height/Length Measured (inches) 66 inch (03/21/24 8:12 AM) BSA Measured 1.95 m2 (03/21/24 8:12 AM) Body Mass Index 29.04 kg/m2 (03/21/24 8:12 AM) Social History Social History Type Response Tobacco Never tobacco user T obacco Use:. Sex Sex Representation Female (finding) Physician Outpatient Note * Hemalatha Bar APRN: PERFORM Event Display: Office Clinic Note Physician Authored Date: [id number] EARL ESTRADA :1965 Age:59 years Sex:Female Visit Date:03/21/2024 Primary Care Physician: NAT KAHN APRN History of Present Illness Patient is a 59-year-old??female here today at the request??the emergency room??at [facility], patient's PCP is Nat Kahn,??DIRECTOR OF RETAIL ANALYTICS. ??Patient is sent for epigastric pain. ??This is an initial consult.?? Patient reports she has been having??nausea, vomiting and pyrosis for approximately??3 months atleast. ??She is also had diarrhea??3-4 times per day during this time.?? Sometimes she has epigastric pain other times is right upper quadrant pain.?? Usually occurs a few hours after eating, not always fatty meals. ??Denies constipation. ??She does have melena.?? Takes meloxicam??once or twice perweek. ??She is lost approximately??during this time. ??Appetite is normal.?? Pyrosis is at night.?? Denies dyspepsia??or dysphagia. ??Does complain of globus sensation. ?? Patient was discharged home with??Nexium 40??g daily??which??she took fora week and then stopped. ??She did not notice any difference in her symptoms.She is taking it before supper. ?? Labs: -02/14/2021 CBC normal, complete metabolic panel with AST 111, ALT 49, otherwise unremarkable,??GGT??T219, lipase 25,??high-sensitivity??troponin??negative. ?? Imaging: -02/15/2024??abdominal ultrasound showed fatty liver without??cholelithiasis or cholecystitis.?Positive??Buitrago sign. -02/15/2024 CT scan of the abdomen pelvis??was unremarkable for any??gastrointestinal findings. ?? Denies a family history of any gastrointestinal cancers, inflammatory bowel disease or celiac disease. ?? She is accompanied today by her . Review of Systems Pertinent positives and negatives are discussed in HPI. Physical Exam Vitals & Measurements HR:??96??(Apical)?? BP:??130/91?? SpO2:??98%?? HT:??167.64??cm?? WT:??81.6??kg?? BMI:??29.04?? BSA:??1.95?? General: Well-nourished well-developed female??in no acute distress. HEENT: Head is normocephalic, trachea midline, and no cervical lymphadenopathy. Respiratory: Respirations are even and unlabored. ??Lungs are clear to auscultation. Cardiovascular: Regular rate and rhythm with S1 and S2. Abdomen: Positive bowel sounds x4 quadrants, no masses, no guarding, no tenderness. ??No hepatosplenomegaly. ??Abdomen is soft. Skin: Warm, dry, and pink. Neurological: Alert and oriented x3, speech is clear and gait is steady. Psychological: Pleasant, calm and cooperative. Assessment/Plan 1.??RUQ abdominal pain??R10.11 ??Positive Buitrago sign with??abdominal ultrasound.?? No cholelithiasis or cholecystitis seen.?? Will refer patient to Dr. Nickie José in general surgery for further evaluation??of gallbladder disease.?? Pain occurs after eating??but not necessarily with fatty foods. Ordered: Follow-up Appointment Request [facility], *Est. 04/04/24 +/- 2 days, Future Order, after EGD and colonoscopy, In Approximately, [facility] Gastroenterology Surgical Procedure Booking Request LT, 03/21/24 8:33:00 EDT, 05/22/24 10:00:00 EDT, pyrosis, diarrhea, RUQ abdominal pain Epigastric pain Nausea and vomiting Diarrhea Pyrosis, Outpatient, EGD & Colonoscopy, Primary Procedure, 45, General, 30, Jeffery Batres MD, Consent to read:... ?? 2.??Epigastric pain??R10.13 ??Question if esophagitis or gastritis.?? EGD to assess for mucosal injury, inflammation, H. pyloriinfection and celiac disease. ??Restart Nexium 40 mg 30 minutes before evening meal. ??Discussed reflux triggering foods and beverages to avoid,??avoid eating 3 hours before bedtime, and small frequent meals. Advised to avoid NSAIDS including Meloxicam. Ordered: Follow-up Appointment Request [facility], *Est. 04/04/24 +/- 2 days, Future Order, after EGD and colonoscopy, In Approximately, [facility] Gastroenterology Surgical Procedure Booking Request [facility], 03/21/24 8:33:00 EDT, 05/22/24 10:00:00 EDT, pyrosis, diarrhea, RUQ abdominal pain Epigastric pain Nausea and vomiting Diarrhea Pyrosis, Outpatient, EGD & Colonoscopy, Primary Procedure, 45, General, 30, Jeffery Batres MD, Consent to read:... ?? 3.??Nausea and vomiting??R11.2 ??EGD as above. Ordered: Follow-up Appointment Request [facility], *Est. 04/04/24 +/- 2 days, Future Order, after EGD and colonoscopy, In [facility], [facility] Gastroenterology Surgical Procedure Booking Request LTT[facility], 03/21/24 8:33:00 EDT, 05/22/24 10:00:00 EDT, pyrosis, diarrhea, RUQ abdominal pain Epigastric pain Nausea and vomiting Diarrhea Pyrosis, Outpatient, EGD & Colonoscopy, Primary Procedure, 45, General, 30, Jeffery Batres MD, Consent to read:... ?? 4.??Diarrhea??R19.7 ??Colonoscopy to rule out colitis and neoplasia. ??She has never had??colonoscopy.?? She is averagerisk other than symptoms.?? Recommend high- fiber diet. Ordered: Follow-up Appointment Request [facility], *Est. 04/04/24 +/- 2 days, Future Order, after EGD and colonoscopy, In [facility], [facility] Gastroenterology Surgical Procedure Booking Request [facility], 03/21/24 8:33:00 EDT, 05/22/24 10:00:00 EDT, pyrosis, diarrhea, RUQ abdominal pain Epigastric pain Nausea and vomiting Diarrhea Pyrosis, Outpatient, EGD & Colonoscopy, Primary Procedure, , [facility], 30, Jeffery Batres MD, Consent to read:... ?? 5.??Pyrosis??R12 ??EGD as above. Ordered: Follow-up Appointment Request [facility], *Est. 04/04/24 +/- 2 days, Future Order, after EGD and colonoscopy, In [facility], [facility] Gastroenterology Surgical Procedure Booking Request [facility], 03/21/24 8:33:00 EDT, 05/22/24 10:00:00 EDT, pyrosis, diarrhea, RUQ abdominal pain Epigastric pain Nausea and vomiting Diarrhea Pyrosis, Outpatient, EGD & Colonoscopy, Primary Procedure, , General, 30, Jeffery Batres MD, Consent to read:... ?? 6.??Melena??K92.1 ??EGD and colonoscopy as aboe. Ordered: Follow-up Appointment Request [facility], *Est. 04/04/24 +/- 2 days, Future Order, after EGD and colonoscopy, In Approximately, [facility] Gastroenterology ?? Orders: NexIUM 40 mg oral delayed release capsule, 40 mg = 1 cap, Oral, Daily, 30 minutes before evenng meal, # 30 cap, 3 Refill(s), Pharmacy: [id number], 167.64, cm, 03/21/24 8:12:00 EDT, Height,81.6, kg, 03/21/24 8:16:00 EDT, Weight Dosing /trans Referral Orders Referral Management, Medical Service: General Surgery, Reason: RUQ pain after eating with n/v. u/s normal other than + Buitrago's sign, Start: 03/21/24 Problem List/Past Medical History Ongoing Coccydynia Diabetes Diarrhea Epigastric pain High cholesterol Hypertension Instability of left knee joint Melena Methicillin resistant Staphylococcus aureus MRSA infection Nausea and vomiting Pyrosis RUQ abdominal pain Historical RUQ cramping Procedure/Surgical History ???Arthroscopy of knee (08/2022) Medications hydroCHLOROthiazide 12.5 mg oral tablet, 12.5 mg= 1 tab, Oral, every morning Lantus Solostar Pen 100 units/mL subcutaneous solution, 10 units, Subcutaneous, every night at bedtime lisinopril 40 mg oral tablet, 40 mg= 1 tab, Oral, Daily meloxicam 7.5 mg oral tablet, 7.5 mg= 1 tab, Oral, BID metFORMIN 1000 mg oral tablet, 1000 mg= 1 tab, Oral, BID NexIUM 40 mg oral delayed release capsule, 40 mg= 1 cap, Oral, Daily, 3 refills Tylenol Extra Strength 500 mg oral tablet, 1000 mg= 2 tab, Oral, every 8 hr, PRN Allergies sulfa drugs??(Rash) Triple Antibiotic??(Persistent redness of skin) Social History Alcohol Never Electronic Cigarette/Vaping Electronic Cigarette Use: Never. Home/Environment Living situation: Home/Independent. Substance Use Never Tobacco Never tobacco user Tobacco Use:. Family History Cancer of ovary: Mother. Immunizations Vaccine Date Status influenza, unspecified formulation 05/30/2021 Recorded pneumococcal 23-polyvalent vaccine 12/18/2019 Recorded Td(adult) unspecified formulation 04/18/2012 Recorded Electronically Signed on 03/21/2024 08:38 EDT Hemalatha Bar APRN Patient Care team information Care Team Personnel Name: NAT KAHN APRN Position: No Access Member Role: Primary Care Physician Address: [address] [place] [address]- Care Team Related Persons Name: TRACI ESTRADA Name: TRACI ESTRADA Insurance Providers Guarantor name: EARL ESTRADA Health Plan Information #: 1 Payer: [employer] Member Number: [id number] Policy Number: NA Health Plan Information #: 2 Payer: [facility] Member Number: [id number] Policy Number: NA
--- OUTSIDE RECORDS SUMMARY | 2024-06-21 16:10 | XMS_ITS | Continuity of Care Document ---
Author Organization [facility] Address [address] [place] [address] Care Team Providers Care Vessel Engineer Name Role Phone ELLYN KAHN APRN Primary Care Physician Encounter [facility] FIN NBR [id number] Date(s): 03/06/24 - 03/06/[address] [address] Discharge Disposition: Home or Self Care Attending Physician: ELLYN KAHN APRN Admitting Physician: ELLYN KAHN APRN Referring Physician: ELLYN KAHN APRN Allergies, Adverse Reactions, Alerts Substance Reaction [...] 0 Refill(s), 03/16/24 9:23:00 AM CDT, Pharmacy: [facility], 167.6, cm, 02/15/24 7:18:00 EDT, [...] Instability of left knee joint Confirmed Active Methicillin resistant Staphylococcus aureus 1 Confirmed 07/18/23 Active MRSA infection Confirmed Active Coccydynia Confirmed Active 1Problem added by Rule (LH_IC_MDRO_MRSA) following Wound Culture Deep from Abscess collected on 16-JUL-2023 16:51:00 EST tested positive for MRSA. Procedures Procedure Date Related Diagnosis Body Site Status Arthroscopy of knee 08/2022 Compl eted Results Radiology Reports * Exam Date Time Procedure Performing Provider Status 03/06/24 1:48 PM MG Mammo Diagnostic Bilateral Vic Dobbins; Auth (Verified) Notes: (MG Mammo Diagnostic Bilateral) Reason For Exam: LEFT BREAST MASS MG Mammo Diagnostic Bilateral EXAM DESCRIPTION: MG Mammo Diagnostic Bilateral 03/06/2024 INDICATION: LEFT BREAST MASS COMPARISON: Outside facility screening mammogram from 01/19/2021 BREAST DENSITY: There are scattered areas of fibroglandular density. FINDINGS: MLO and CC views were performed with digital breast tomosynthesis. Images were reviewed using computer aided detection Stellate mass in the lateral mid left breast at intermediate depth with irregularly marginated solid mass seen in this region by ultrasound. Left nipple retraction is noted. Findings are highly suspicious for neoplasm. Ultrasound-guided biopsy is recommended Otherwise, no asymmetry, architectural distortion or suspicious grouping of calcifications to suggest malignancy in either breast. Results were discussed with the patient and telephoned to referring provider at the time of interpretation. ASSESSMENT: Highly suggestive of malignancy. BI-RADS category 5. RECOMMENDATION: 1: Biopsy JOB #: [id number] Final Signed by: Patricio Quarles MD Signed (Electronic Signature): 03/06/2024 3:17 pm * Exam Date Time Procedure Performing Provider Status 03/06/24 2:03 PM US Breast Limited Left Natalya Yun; Auth (Verified) Notes: (US Breast Limited Left) Reason For Exam: LEFT BREAST MASS, LEFT NIPPLE RETRACTION US Breast Limited Left EXAM DESCRIPTION: US Breast Limited Left 03/06/2024 INDICATION: Left nipple retraction with left breast mass TECHNIQUE: Limited grayscale ultrasound examination of the left breast was performed targeted to stellate mass on same date diagnostic mammogram. Static and cine clip images were obtained. COMPARISON: Same date diagnostic mammogram FINDINGS: Irregular stellate hypoechoic solid mass with posterior acoustic shadowing at the 3 o'clock position 4 cm from the nipple in the vicinity of stellate mass on same date diagnostic mammogram. Lesion measures 2.4 x 2 x 1.2 cm and is highly suspicious for neoplasm. Ultrasound-guided biopsy is recommended. Results were discussed with the patient at the time of examination and telephoned to referring provider. ASSESSMENT: Highly suggestive of malignancy. BI-RADS category 5. RECOMMENDATION: Biopsy JOB #: [id number] Final Signed by: Patricio Quarles MD Signed (Electronic Signature): 03/06/2024 2:19 pm Social History Social History Type Response Tobacco Never tobacco user T obacco Use:. Sex Patient Care team information Care Team Personnel Name: ELLYN KAHN APRN Position: No Access Member Role: Primary Care Physician Address: Address: [address] [place] [address] Care Team Related Persons Name: TRACI ESTRADA Name: TRACI ESTRADA
--- OUTSIDE RECORDS SUMMARY | 2024-06-21 16:10 | XMS_ITS | Continuity of Care Document ---
Author Organization [facility] Ambulatory Clinics Address [address] [place] [address] Care Team Providers Care Putty Maker Name Role Phone ELLYN KAHN APRN Primary Care Physician Encounter [facility]_OR FIN NBR [id number] Date(s): 04/07/24 - 04/07/24 [facility] Ambulatory Clinics [address] [place], [place] [address] Encounter Diagnosis RUQ abdominal pain(Discharge Diagnosis) - 04/07/24 Discharge Disposition: Home or Self Care Attending Physician: Royce Robins MD Allergies, Adverse Reactions, Alerts Substance Criticality Severity Reaction Reaction Severity Status Triple Antibiotic Low criticality Mild Persist ent redness of skin Active sulfa drugs 1 High criticality Moderate Rash Active 1tolerates hctz, no rash Assessment and Plan Extracted from: Title:Office Visit Note Author:Royce Robins MD Date:04/07/24 1.??RUQ abdominal pain??R10. 11 ??Earl??Jennifer??is a 59-year-old woman??with 5-month history of recurrent episodes of her chronic abdominal pain, nausea, and vomiting.?? She has no evidence of??gallstones or acute cholecystitison ultrasound or CT.Despite this, her symptoms are??consistent with possible biliary dyskinesia.?? Recommend evaluation with HIDA scan.?? If HIDA scan is normal,??she should follow-up with gastroenterology for further??evaluation as planned.?? If her HIDA scan is positive, we will plan to see to her back in follow-up discussed options for treatment. ??In the background of this is a recent diagnosis with??breast cancer which requires further??evaluation and treatment??and will likely take priority.?? I will plan to??see Earl back in follow-up following results of her HIDA scan.?? She will call with questions or concerns in the interim. Ordered: NM Hepatobiliary Imaging w/ Drug, 04/07/24, Routine, Reason: Right upper quadrant abdominal pain, no evidence of gallstones, evaluate for biliary dyskinesia, Transport Mode: Ambulatory, RUQ abdominal pain ?? Future Appointments Future Scheduled Tests Laboratory* Pathology Request 07/01/23 Radiology* US Abdomen Complete 11/09/23 * US Abdomen Complete 11/26/23 * US Breast Limited Left 02/21/24 * MG Mammo Diagnostic Left 02/28/24 * MG Mammo Diagnostic Left 02/19/24 * MG Mammo Screening Bilateral 02/28/24 * MG Mammo Screening Bilateral 02/19/24 * NM Hepatobiliary Imaging w/ Drug 04/24/24 Functional Status 04/07/24 Living Environment Home Environment No qualifying data available Other exposure to Infectious Disease Non e [...] meal, # 30 cap, 3 Refill(s[facility], 167.64, cm, 03/21/24 8:12:00 EDT, Height, 81.6, [...] Related Diagnosis Body Site Status Mammogram Completed Vital Signs Most recent to oldest [Reference Range]: 1 Temperature Temporal Artery [36-38 Deg C ] 36.4 Deg C (04/07/24 1:33 PM) Apical Heart Rate [60-100 bpm] 88 bpm (04/07/24 1:33 PM) Blood Pressure [90-140/60-90 mmHg] 136/8 2mmHg (04/07/24 1:33 PM) Mean Arterial Pressure, Cuff [65-140 mmH g] 100 mmHg (04/07/24 1:33 PM) Weight 80.9 kg (04/07/24 1:33 PM) Weight Measured (lbs) 178.354 lb (04/07/24 1:33 PM) Weight Dosing 80.900 kg (04/07/24 1:33 PM) [place] Body Weight Calculated 59.3 kg (04/07/24 1:33 PM) Height 167.64 cm (04/07/24 1:33 PM) Height/Length Measured (inches) 66 inch (04/07/24 1:33 PM) BSA Measured 1.94 m2 (04/07/24 1:33 PM) Body Mass Index 28.79 kg/m2 (04/07/24 1:33 PM) Social History Social History Type Response Tobacco Never tobacco user T obacco Use:. Sex Sex Representation Female (finding) Physician Outpatient Note * Royce Robins MD: PERFORM Event Display: Office Clinic Note Physician Authored Date: [id number] EARL RODRIGUEZ :1965 Age:59 years Sex:Female Visit Date:04/07/2024 Primary Care Physician: ELLYN KAHN APRN Chief Complaint Right upper quadrant abdominal pain, nausea, and vomiting History of Present Illness Earl Rodriguez is a?59-year-old woman??referred by Hemalatha Bar,??GENE??for evaluation of right upper quadrant abdominal pain.?? Earl reports that for the past??approximately 5 months she has been experiencing??recurrent episodes of right upper quadrant and epigastric abdominal pain with nausea and vomiting. ??Her pain typically occurs after eating. ??It lasts for several hours before improving.??It never resolves completely.?She has identified no specific foods that trigger, but has been avoiding spicy foods.?? She??reports??associated diarrhea without??acholic stools, melena, or hematoc hezia.?? She has not had pain like this before.?? She has no personal history of inflammatory boweldisease. ??She??was evaluated in the emergency department on??02/15/2024. ??Her labs were notable for??no leukocytosis. ??Her AST and alk phos were mildly elevated. ??She??was evaluated with a CT abdomen/pelvis as well as an ultrasound of her abdomen which I have reviewed. ??She had no acute findings on CT. ??She had no evidence of calcified gallstones??or??inflammatory changes of the gallbladder on abdominal ultrasound.?? Incidentally identified on physical exam, she had a left breast nodule. ??This was followed up with an ultrasound and mammography. ??She was diagnosed last week with left breast cancer. ??She has been referred to??[facility] for??further workup and treatment.?? She??continues toexperience intermittent episodes of abdominal pain. ??She was diagnosed with??likely gastritis??anddischarged home from her ED visit. ??She is followed up with her[facility] gastroenterology will plan onperforming??upper and lower endoscopy to evaluate.?? Given the presence of??positive sonographic Mur phy sign on exam??and??typical symptoms of colic, she was recommended??to be??evaluated by general surgery.?? Review of Systems A 10 point review of systems was completed. ??Notable findings are documented above. Physical Exam Vitals & Measurements T:??36.4?C ??(Temporal Artery)?? HR:??88??(Apical)?? BP:??136/82?? SpO2:??95%?? HT:??167.64??cm?? WT:??80.9??kg?? BMI:??28.79?? BSA:??1.94?? General: No acute distress, pleasant and conversant V: RRR Pulmonary: Regular breathing rate and effort Abdomen: Soft, mildly tender in the right upper quadrant and epigastrium??without rebound pain or involuntary guarding, Skin: Warm, dry, no rash or jaundice: Grossly intact Assessment/Plan 1.??RUQ abdominal pain??R10.11 ??Earl??Sallobito??is a 59-year-old woman??with 5-month history of recurrent episodes of her chronic abdominal pain, nausea, and vomiting.?? She has no evidence of??gallstones or acute cholecystitison ultrasound or CT.Despite this, her symptoms are??consistent with possible biliary dyskinesia.?? Recommend evaluation with HIDA scan.?? If HIDA scan is normal,??she should follow-up with gastroenterology for further??evaluation as planned.?? If her HIDA scan is positive, we will plan to see to her back in follow-up discussed options for treatment. ??In the background of this is a recent diagnosis with??breast cancer which requires further??evaluation and treatment??and will likely take priority.??I will plan to??see Earl back in follow-up following results of her HIDA scan.?? She will call with questions or concerns in the interim. Ordered: NM Hepatobiliary Imaging w/ Drug, 04/07/24, Routine, Reason: Right upper quadrant abdominal pain, no evidence of gallstones, evaluate for biliary dyskinesia, Transport Mode: Ambulatory, RUQ abdominalpain ?? Future Orders NM Hepatobiliary Imaging w/ Drug, 04/07/24, Routine, Reason: Right upper quadrant abdominal pain, no evidence of gallstones, evaluate for biliary dyskinesia, Transport Mode: Ambulatory, RUQ abdominalpain Problem List/Past Medical History Ongoing Breast cancer in female Coccydynia Diabetes Diarrhea Epigastric pain High cholesterol Hypertension Instability of left knee joint Melena Methicillin resistant Staphylococcus aureus MRSA infection Nausea and vomiting Pyrosis RUQ abdominal pain Historical RUQ cramping Procedure/Surgical History ???Mammogram Medications hydroCHLOROthiazide 12.5 mg oral tablet, 12.5 [...] 12/18/2019 Recorded Td(adult) unspecified formulation 04/18/2012 Recorded Diagnostic Results ?? CT Abdomen and Pelvis w/ Contrast ?? 02/15/24 09:41:05 EXAM DESCRIPTION: CT Abdomen and Pelvis w/ Contrast ?? 02/15/2024 ?? INDICATION: RUQ PAIN, US NEG YVETTE ?? TECHNIQUE: All CT scans at this facility use at least one of these dose optimization techniques: Automated exposure control; mA and/or kV adjustment per patient size (includes targeted exams where dose is matched to clinical indication); or iterative reconstruction. ?? Technique: Axial CT images of the abdomen/pelvis with IV contrast administration ?? 100 cc of Isovue-300 contrast was utilized ?? COMPARISON: None ?? FINDINGS: Ovoid nodular opacity in the inferior aspect of the left breast. Neoplastic lesion can not be excluded, and mammographic correlation is recommended. ?? No focal hepatic lesion. Normal enhancement of the main hepatic veins and main portal vein ?? Normal spleen size without focal mass ?? No calcified gallstones in the gallbladder. ?? Adrenal glands and pancreas appear within normal limits ?? Tiny low-attenuation lesion involving the mid right kidney which is too small to characterize. This may reflect small cyst. Otherwise no focal renal mass, hydronephrosis or perinephric fluid collection on either side. ?? No pelvic mass identified ?? Normal caliber abdominal aorta ?? No retroperitoneal adenopathy in the abdomen or pelvis. ?? No bowel dilatation to suggest obstruction or ileus. No free intraperitoneal air, ascites or inflammatory changes. Normal appendix. Scattered colonic diverticula. ?? The visualized lung bases are clear. No suspicious regional osseous lesions. Tiny sclerotic focus in the left femoral head likely reflecting bone island. ?? IMPRESSION: Nonobstructive bowel pattern. No free air or inflammatory changes. Normal appendix ?? Tiny low-attenuation right renal lesion which is difficult to characterize based on size. This likely reflects small cyst. Otherwise no abdominal/pelvic mass or adenopathy ?? Ovoid nodular lesion in the left inferior breast. Neoplastic lesion cannot be excluded. Nonemergent mammographic correlation is recommended. ? JOB #: [id number] Electronically Signed By: ?? Signed By: Patricio Quarles MD Ultrasound: ?? US Abdomen Limited ?? 02/15/24 09:06:18 EXAM DESCRIPTION: US Abdomen Limited ?? 02/15/2024 ?? INDICATION: RUQ PAIN HIGH LIKELIHOOD YVETTE ?? TECHNIQUE: Grayscale and color Doppler ultrasound examination of the right upper quadrant region of the abdomen. ?? COMPARISON: None ?? FINDINGS: The liver is mildly enlarged measuring 17.3 cm in maximum dimension. Diffusely increased hepatic echogenicity suggesting hepatic steatosis. No focal hepatic lesion identified. The main portal vein is patent with normal flow direction ?? The pancreas is unremarkable ?? No ascites in right upper quadrant ?? No cholelithiasis, gallbladder wall thickening or pericholecystic fluid accumulation. No biliary dilatation with common bile duct diameter of 4 mm. Positive sonographic B[place]rago sign ?? Right kidney measures 12.7 cm in maximum dimension. No focal right renal mass, hydronephrosis or perinephric fluid collection. ?? IMPRESSION: Mild hepatomegaly with findings suggesting hepatic steatosis. ?? No cholelithiasis or biliary dilatation. ?? Positive sonographic B[place]rago sign. ? JOB #: [id number] Electronically Signed By: ?? Signed By: Patricio Quarles MD ? Electronically Signed on 04/07/2024 18:11 EDT Royce Robins MD Patient Care team information Care Team Personnel Name: ELLYN KAHN APRN Position: No Access Member Role: Primary Care Physician Address: [address] [place] [address] Care Team Related Persons Name: TRACI RODRIGUEZ Name: TRACI RODRIGUEZ Insurance Providers Guarantor name: EARL RODRIGUEZ Health Plan Information #: 1 Payer: [facility] [employer] Member Number: [id number] Policy Number: NA Health Plan Information #: 2 Payer: [facility] [employer] Member Number: [id number] Policy Number: NA
--- OUTSIDE RECORDS SUMMARY | 2024-06-21 16:11 | XMS_ITS | Encounter Summary ---
Author Organization [facility] Address [address] [place] [address] Care Team Providers Care Stonecutter Apprentice Hand Name Role Phone Jim Chadwick MD Primary Care Provider [phone] Encounter Details Date Type Department Care Team (Latest Contact Info) Description 09/08/2010 15:01 EST - 09/08/2010 15:02 [facility] Hospital Encounter [facility] - Other [address] [place] [address] Jim Chadwick MD [address] [facility] [place] [address] Discharge Disposition: Home or Self Care Social History Tobacco Use Types Packs/Day Years Used Date Smoking Tobacco: Never Alcohol Use Standard Drinks/Week Comments No 0 (1 standard drink = 0.6 oz pur e alcohol) Comments Unknown Sex and Gender Information Value Date Recorded Sex Assigned at Not on file Legal Sex Female 18:10 EST Gender Identity Not on file Sexual Orientation Not on file documented as of this encounter Discharge Disposition Disposition Code Departure Means Destination Home or Self Care documented in this encounter Plan of Treatment Not on file documented as of this encounter Visit Diagnoses Not on filedocumented in this encounter Care Teams Stonecutter Apprentice Hand Relationship Specialty Start Date End Date Jim Chadwick MD [address] [facility] [place] [place] [address] PCP - General 07/26/10 01/30/18 documented as of this encounter
--- OUTSIDE RECORDS SUMMARY | 2024-06-21 16:11 | XMS_ITS | Encounter Summary ---
Author Organization [facility] Address [address] [place] [address] Care Team Providers Care Mud Trucker Name Role Phone Jim Chadwick MD Primary Care Provider [phone] None, Provider Primary Care Provider Terese Rob [employer] SPECIAL[employer] COOK Primary Care Provider [phone] Encounter Details Date Type Department Care Team (Late st Contact Info) Description 09/21/2010 Orders Only [facility] Cardiology - [address] [place], [place] [id number] Jim Fowler MD [address] [place] [id number] Chest pain (Primary Dx) Social History Tobacco Use Types Packs/Day Years Used Date Smoking Tobacco: Never Alcohol Use Standard Drinks/Week Comments No 0 (1 standard drink = 0.6 oz pur e alcohol) Interpersonal Safety Answer Date Record ed Physically Hurt Never 02/22/2020 Verbally Threaten Not on file 02/22/2020 Comments No Sex and Gender Information Value Date Recorded [...] unspecified documented in this encounter Care Teams Mud Trucker Relationship Specialty Start Date End Date Jim Chadwick MD [address] [place] [address] PCP - General 07/26/10 01/30/18 None, Provider PCP - General 01/31/18 12/18/18 Terese Fischer NP [address] [place] [phone] PCP - General 12/19/18 documented as of this encounter
--- OUTSIDE RECORDS SUMMARY | 2024-06-21 16:11 | XMS_ITS | Encounter Summary ---
Author Organization [facility] Address [address] [place] [address] Care Team Providers Care Loss Prevention Detective Name Role Phone Aaliyah Terese Dalia MONOGRAM MACHINE OPERATOR Primary Care Provider [phone] Encounter Details Date Type Department Care Team (Late st Contact Info) Description 07/03/2023 Lab Requisition [facility] Pathology & Laboratory Medicine - [address] [address] Clotilde Castillo PA-C [address] [place] [address] Erythema intertrigo; Rash and other nonspecific skin [...] explore management options, if applicable. 07/04/2023 11:12 [facility] Final Diagnosis A. SKIN OF ABDOMEN, RIGHT LOWER, BIOPSY: - Superficial and deep perivascular dermatitis with eosinophils. See microscopic and comment. 07/04/2023 11:12 [facility] Diagnosis Comment The findings are most suggestive of a dermal hypersensitivity reaction. The density and depth of the infiltrate raise an arthropod assault reaction as a consideration. Clinical correlation is recommended. 07/04/2023 11:12 [facility] Attestation By the signature below, the attending physician certifies that they have 1) personally conducted a gross and/or microscopic examination of the described specimen(s), and/or personally interpreted the results of laboratory testing of the described specimen(s), and 2) personally rendered or confirmed the above diagnosis. 07/04/2023 11:12 [facility] at 1112 Microscopic Description Sections [...] collagen bundles show some fibrosis. 07/04/2023 11:12 [facility] Clinical History Rash R lower abdomen; 4 mm punch biopsy for pathology review; clinical diagnosis code: R21, L30.4 07/04/2023 11:12 [facility] Gross Description A. Received in formalin labelled with proper patient identification (initials S, L) and right lower abdomen is a pale hill circular skin, 0.4 cm in diameter and excised to a depth of 0.4 cm. Bisected and entirely submitted in A1. LY ANDREWS(ASCP) 07/03/2023 10:27 07/04/2023 11:12 [facility] Performing Lab [facility] 07/04/2023 11:[address] [facility] Scanned Images 07/04/2023 11:[address] [facility] Tissue SPECIMEN FROM SKIN / Unknown 07/01/2023 14:45 EST 07/03/2023 10:12 EST us Clotilde Castillo PA-C PATHOLOGY ORDERABLES Final Result Performing Organization Address City/State/[facility] Co de Phone Number [facility] [address] [place] [address] documented in this encounter Visit Diagnoses Diagnosis Erythema intertrigo Other specified erythematous condition Rash and other nonspecific skin eruption documented in this encounter Care Teams Loss Prevention Detective Relationship Specialty Start Date End Date Terese Fischer NP [address] [place] [phone] PCP - General 12/19/18 documented as of this encounter
--- OUTSIDE RECORDS SUMMARY | 2024-06-21 16:11 | XMS_ITS | Encounter Summary ---
Author Organization [facility] Address [address] [place] [address] Care Team Providers Care Purchasing Expeditor Name Role Phone Berry Chadwick MD Primary Care Provider [phone] Reason for Visit * Reason Comments Chest [...] 20:18 EST - 09/22/2010 0:04 EST Emergency [facility] Emergency Department - [address] [id number] Heriberto Morrison MD [address] [place] [address], [address] [place] [phone] Emergency, MD Arpan Chest pain Discharge Disposition: Home or Self Care Social History Tobacco Use Types Packs/Day Years Used Date Smoking Tobacco: Never Alcohol Use Standard Drinks/Week Comments No 0 (1 standard drink = 0.6 oz pur e alcohol) Comments No Sex and Gender Information Value [...] symptoms resolve, consider follow up with a type photography supervisor. documented in this encounter Medications at Time of Discharge lisinopril (PRINIVIL, ZESTRIL) 40 mg tablet Take [...] states that pain is better. Continues on cardiac care unit nurse, side rails in upright position, call [place] attached. * Esperanza Gross RN - 09/21/20102047 EST IV established by EMS. Labs drawn and sent. Pt on cardiac care unit nurse, side rails in upright position, call austin [...] 09/21/2010 0:00 EST Physician Inpatient MD PROCEDURE/MINOR SURGICAL ORDERABLES Final Result * (ABNORMAL) PROFILE ED CARDIAC PACK (09/21/2010 20:49 EST) WBC 9.69 4.0 - 12.4 K/cmm [facility] RBC 4.33 3.86 - 5.04 M/cmm [facility] Hemoglobin 12.8 11.6 - 15.2 gm/dl [facility] HCT 37.3 34.9 - 44.4 % [facility] MCV 86 81 - 98 fl [facility] MCH 29.5 26.7 - 33.3 pg [facility] MCHC 34.3 32.1 - 35.9 gm/dl [...] [facility] Type of Diff: Automated [facility] Pro Time 10.4 9.5 - [...] LAB CO2 21(L) 24 - 32 mEq/L [facility] BUN 17 10 - 26 mg/dl [facility] Creatinine 0.80 0.7 - 1.5 mg/dl [facility] GFR, Calculated >60 ml/min/1. 73m2 [facility] Glucose, Screening 117(H) 70 - 100 mg/dl [facility] Magnesium 1.8 1.7 - 2.8 mg/dl [facility] CK 100 30 - 135 U/L [facility] MB 0.7 0 - 5.0 ng/ml [facility] CK-MB Index Not calculated, normal MB. 0 - 2.5 [facility] Troponin I pre 2011 <0.05 <0.81 ng/ml [facility] Comment: Reference Range: Normal: ??Less than 0.05 Indeterminate: ??0.05-0.80 Positive: ?? Greater than 0.80 Blood specimen (specimen) 09/21/2010 20:49 EST 09/21/2010 20:53 EST us Heriberto Morrison MD PACKAGES & DNA PROBE ORDERABLES Final Result Performing Organization Address [facility] Co de Phone Number [facility] [address] [place] [address] * D-DIMER (09/21/2010 20:49 EST) Pathologist [facility] Emergency Department D-Dimer <200 <230 ng/mL [facility] Comment:CUTOFF VALUE FOR THE EXCLUSION OF DVT and PE: 230 ng/mL Blood specimen (specimen) 09/21/2010 20:49 EST 09/21/2010 20:53 EST us Heriberto Morrison MD HEMATOLOGY & PF4 ORD ERABLES Final Result Performing Organization Address [facility] Co de Phone Number [facility] [address] [place] [address] * HOLD BLUE TOP (09/21/2010 20:11 EST) Hold Blue Top Sample for coagulation will be discarded after 4 hours [facility] 09/21/2010 20:1 1 EST 09/21/2010 20:55 EST Heriberto Morrison MD LAB INFO SERVICE AND SUPPORT & PHONE RESULT Final Result [facility] [address] [place] [address] documented in this encounter Visit Diagnoses Diagnosis [...] RN) documented in this encounter Care Teams Purchasing Expeditor Relationship Specialty Start Date End Date Berry Chadwick MD [address] [place] [address] PCP - General 07/26/10 01/30/18 documented as of this encounter
--- OUTSIDE RECORDS SUMMARY | 2024-06-21 16:11 | XMS_ITS | Encounter Summary ---
Author Organization [facility] Address [address] [place] [address] Care Team Providers Care Director Of Architecture Name Role Phone Terese Fischer SAW FILER Primary Care Provider [phone] Encounter Details Date Type Department Care Team (Late st Contact Info) Description 07/13/2020 Lab Requisition [facility] Pathology & Laboratory Medicine - [address] [address] Outr Resulting Lab, Provider Social History Tobacco [...] Procedure Name Priority Date/Time Associated Diagnosis Comments [facility] Routine 07/13/2020 10:45 EST documented in this encounter Results * [facility] (07/13/2020 10:45 EST) Lead <2.0 <=4.9 ug/dL 07/14/2020 11:18 EST [facility] Blood VENOUS BLOOD / Unknown 07/13/2020 10:45 EST 07/13/2020 21:05 EST Narrative [facility] - 07/14/2020 11:18 EST Testing performed using Graphite Furnace Atomic Absorption Spectroscopy. This test was developed and its performance characteristics determined by the [facility]. ??It has not been cleared or approved by the FDA. ??The laboratory is regulated under CLIA as qualified to perform high complexity testing. ??This test is used for clinical purposes. us Provider Outr Resulting Lab CHEMISTRY & BLOOD GA S ORDERABLES Final Result [facility] [address] [place] [address] documented in this encounter Visit Diagnoses Not on filedocumented in this encounter Care Teams Director Of Architecture Relationship Specialty Start Date End Date Terese Fischer NP [address] [place] [phone] PCP - General 12/19/18 documented as of this encounter
--- OUTSIDE RECORDS SUMMARY | 2024-06-21 16:11 | XMS_ITS | Encounter Summary ---
Author Organization [facility] Address [address] [place] [address] Care Team Providers Care Personnel And Payroll Technician Name Role Phone None, Provider Primary Care Provider Unavailabl e Reason for Visit * Reason Comments Genetic Evaluation Encounter Details Date Type Department Care Team (Late st Contact Info) Description 02/12/2018 13:30 EDT Office Visit [facility] Hematology & Oncology - [facility] [address] [place] [address] Unknown, Provider, Rae Zaragoza, MS [address] [place], [place] [id number] Encounter for nonprocreative genetic counseling (Primary Dx); [...] have her blood drawn and sent to [email or web address] laboratory for BRCA1 testing. I will call Martha by phone with her results. If positive, she will return to [facility] to discuss in detail. documented in this encounter Plan of Treatment Not on file documented as of this encounter Procedures Procedure Name Priority Date/Time Associated Diagnosis Comments PATHOLOGY - SCANNED 02/22/2018 20:32 EDT documented in this encounter Results * PATHOLOGY - SCANNED (02/22/2018 20:32 EDT) 02/22/2018 20:3 2 EDT us Scan 2 [employer] LAB INFO SERVICE AND SUPPOR T & PHONE RESULT Final Result documented in this encounter Visit Diagnoses Diagnosis Encounter for nonprocreative genetic counseling- Primary Family history of ovarian cancer Family history of malignant neoplasm of ovary Family history of BRCA1 gene positive Family history of genetic disease carrier documented in this encounter Care Teams Personnel And Payroll Technician Relationship Specialty Start Date End Date None, Provider PCP - General 01/31/18 12/18/18 documented as of this encounter
--- OUTSIDE RECORDS SUMMARY | 2024-06-21 16:11 | XMS_ITS | Encounter Summary ---
Author Organization [facility] Address [address] [place] [address] Care Team Providers Care Landscaping Crew Leader Name Role Phone Terese Fischer ELECTRICAL FITTER Primary Care Provider [phone] Reason for Referral * Radiology Services (Routine) - New Request Specialty Diagnoses / Procedures Referred By Laurel garrett Referred To Contact Diagnoses Neck pain Procedures CERVICAL SPINE 4 OR MORE VIEWS Daily Scott PA-C Phone: tel: fax: Referral ID Status Reason Start Date Expiration Date V isits Requested Visits Authorized [id number] New Request 12/18/2018 1 1 Encounter Details Date Type Department Care Team (Late st Contact Info) Description 12/19/2018 Orders Only [facility] Spine Program - [address] [address] Daily Scott PA-C [address] [place] [address] [place] [address] Neck pain (Primary Dx) Social [...] MORE VIEWS ??12/19/2018 9:42 AM Clinical History/Comments: M54.5-Yittrnhumvs-LOG-10; Neck Pain Comparison: MRI of the cervical spine from [facility] on November 29, 2018 Technique: AP and [...] MORE VIEWS 12/19/2018 9:42 AM Clinical History/Comments: M54.2-Bviscwptlfd-HPH-10; Neck Pain Comparison: MRI of the cervical spine from [facility] on November 29, 2018 Technique: AP and [...] Daily Scott PA-C [facility] DIAGNOST[facility] IMAGING ORDERABLES Final Result documented in this encounter Visit Diagnoses Diagnosis Neck pain- Primary Cervicalgia documented in this encounter Care Teams Landscaping Crew Leader Relationship Specialty Start Date End Date Terese Fischer NP [address] [place] [address] PCP - General 12/19/18 documented as of this encounter
--- OUTSIDE RECORDS SUMMARY | 2024-06-21 16:11 | XMS_ITS | Encounter Summary ---
Author Organization [facility] Address [address] [place] [address] Care Team Providers Care Interlocker Name Role Phone Terese Fischer SEWAGE DISPOSAL WORKER Primary Care Provider [phone] Reason for Referral * PT/OT/ST (Routine) - Specialty Report Received Specialty Diagnoses / Procedures Referred By Laurel t Referred To Contact Diagnoses Neck pain Bilateral arm pain Numbness and tingling Daily Scott PA-C Phone: tel: fax: Referral ID Status Reason Start Date Expiration Date Visits Requested Visits Authorized [id number] Specialty Report Received Specialty Services Required 12/19/2018 1 1 Question Answer Reason for Request: neck pain bl arm pain w/ n/t Reason for Visit * Reason Comments Follow-up MRI Neck Pain * Consult, Test and Treat (Routine) - Closed Specialty Diagnoses / Procedures Referred By Contac t Referred To Contact Orthopedic Surgery Diagnoses Neck pain Unknown, Provider, [facility] Spine Program - [address] [place] [address] Phone: tel: fax: Referral ID Status Reason Start Date Expiration Date Visits Re quested Visits Authorized [id number] Closed 1 1 Encounter Details Date Type Department Care Team (Late st Contact Info) Description 12/19/2018 9:00 EDT Office Visit [facility] Spine Program - [address] [address] Daily Scott PA-C [address] [facility] [place] [address] Neck pain (Primary Dx); Bilateral [...] and therefore went to the ED in [facility] where, per patient work-up ruled out stroke. 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 [...] deltoids, biceps, triceps, wrist extension, wrist flexion job captain, intrinsics bilaterally. Sensation to light touch touch [...] peripheral neuropathy. 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 [...] prepared with speech recognition software and/or keyboard medical data analyst techniques. Minor irregularities may be present. Other [...] may reflect changes made after this encounter. metFORMIN (GLUCOPHAGE) 500 mg tablet Take 500 mg by mouth 2 times daily. added in this encounter Care Teams Interlocker Relationship Specialty Start Date End Date Terese Fischer NP [address] [place] [address] PCP - General 12/19/18 documented as of this encounter
--- OUTSIDE RECORDS SUMMARY | 2024-06-21 16:11 | XMS_ITS | Encounter Summary ---
Author Organization [facility] Address [address] [place] [address] Care Team Providers Care Or Assistant Name Role Phone Jim Chadwick MD Primary Care Provider [phone] Reason for Visit * Reason Comments New Patient Visit Itchy rash that bega n 4 weeks ago Encounter Details Date Type Department Care Team (Late st Contact Info) Description 04/24/2012 13:00 EDT Office Visit [facility] Dermatology [address] [address] Kendy Ash, PAPriyankaC [address] [place] [address], [address] [place] [address] Contact dermatitis and other eczema [...] of this encounter Ordered Prescriptions Prescription Sig Dispense Quantity Refills Last Filled Start Date End Date triamcinolone (KENALOG) 0.1 % ointment Apply and [...] seen by me. SHAHNAZ DOLL MD * Kendy Ash PA - 04/24/2012 1409 EDT DERMATOLOGY OUT PATIENT [...] ago (has 2 other tattoos from another artistic associate who is licensed) 2. About 1 1/2 [...] ILLNESS? No I reviewed outside notes from Milton Kerr's office. OBJECTIVE: No apparent distress. Appropriate [...] may reflect changes made after this encounter. hydrOXYzine (ATARAX) 50 mg tablet Take 50 mg by mouth as needed. predniSONE (DELTASONE) 20 mg tablet Take 20 mg by mouth as needed. cephALEXin (KEFLEX) 500 mg capsule Take 500 mg by mouth 4 times daily. ATENOLOL ORAL Take 40 mg by mouth daily. added in this encounter Care Teams Or Assistant Relationship Specialty Start Date End Date Jim Chadwick MD [address] [place] [address] PCP - General 07/26/10 01/30/18 documented as of this encounter
--- OUTSIDE RECORDS SUMMARY | 2024-06-21 16:11 | XMS_ITS ---
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, estrogen receptor positive 04/07/2024 Overview (04/07/2024): 04/02/24 bx [facility] ER+/SC+/HER2 pending left breast ILC, intermediate grade 04/02/24 left breast U/S bx [facility] 2.4 cm, 3:00, 4 FN HTN (hypertension) 02/14/2013 Migraine headache 02/14/2013 Current Oncology Plans [facility] AMB ONC BREAST CANCER - DOXOrubicin / CYCLOPHOSPHAMIDE (DOSE DENSE) followed by PACLitaxeL (DOSE DENSE)* Plan Start Date:05/07/2024 Plan Provider:Rosalba Patel MD Linked Problems Malignant neoplasm of lower- outer quadrant of left breast of female, estrogen receptor positiveType 2 diabetes mellitus without complication, without long- term current use of insulin Treatment Medications Current Day (Day 1 , Cycle 5 - Planned for 07/02/2024) Next Day (Day 1, Cycle 6 - Planned for 07/16/2024) cycloPHOSphamide (Cytoxan) i n sodium chloride 0.9% 250 mL infusionDOXOrubicin (Adriamycin)PACLitaxeL (Taxol) in Non-PVC sodium chloride 0.9% 500 mL infusion PACLitaxeL (Taxol) 333 mg in sodium chloride 0.9% Non-PVC 555.5 mL infusion PACLitaxeL (Taxol) 333 mg in sodium chloride 0.9% Non-PVC 555.5 mL infusion Past Plans No past plan information found. Radiation Treatments * No radiation treatments are documented for this patient in [facility]. Treatments may have been administered in another system. Lifetime Dose Tracking * Chemical Lifetime Dose Automatic Entry Manual Entr y doxorubicin 239.061 mg/m2 (456 mg) 239.061 mg/m2 (456 mg) 0 mg/m2 (0 mg)
--- OUTSIDE RECORDS SUMMARY | 2024-06-21 16:11 | XMS_ITS | Encounter Summary ---
Author Organization [facility] Address [address] [place] [address] Care Team Providers Care Training Mgr Name Role Phone Jim Chadwick MD Primary Care Provider [phone] Reason for Visit * Reason Comments Pelvic Pain has had a growth in pelvic area,having pain and growth has changed Encounter Details Date Type Department Care Team (Late st Contact Info) Description 07/26/2010 9:41 EST - 07/26/2010 10:48 EST Emergency [facility] Emergency Department - [address] [address] Isra Gutierrez MD [facility] [place] [address] Emergency, MD Arpan Infected sebaceous [...] Everywhere. * SKIN ABSCESS: AFTER YOUR VISIT (CUBAN) documented in this encounter Discharge Disposition Disposition [...] cyst documented in this encounter Care Teams Training Mgr Relationship Specialty Start Date End Date Jim Chadwick MD [address] [place] [address] PCP - General 07/26/10 01/30/18 documented as of this encounter
--- OUTSIDE RECORDS SUMMARY | 2024-06-21 16:11 | XMS_ITS | Encounter Summary ---
Author Organization [facility] Address [address] [place] [address] Care Team Providers Care Market Development Analyst Name Role Phone Aaliyah Terese Dalia JACKSCREW MAN Primary Care Provider [phone] Encounter Details Date Type Department Care Team (Late st Contact Info) Description 08/05/2019 Lab Requisition [facility] Pathology & Laboratory Medicine - [address] [address] Unknown, Provider, Social History Tobacco Use Types [...] Quantiferon Interpretation Negative Negative 08/06/2019 13:25 EST [facility] Comment: No interferon-gamma response to [...] TB1 Ag minus Nil 0.00 IU/ml 08/06/19 13:25 EST [facility] TB2 Ag minus Nil 0.00 IU/mL 08/06/19 20 13:25 EST [facility] Blood VENOUS BLOOD / Unknown 08/04/2019 12:50 EST 08/05/2019 16:12 EST Narrative [facility] - 08/06/2019 13:25 EST Results were obtained with the [employer] QuantiFERON-TB Gold Plus CHEMO. us Provider Unknown CHEMISTRY & BLOOD GAS ORDERA BLES Final Result Performing Organization Address City/State/[facility] Co de Phone Number [facility] [address] [place] [address] documented in this encounter Visit Diagnoses Not on filedocumented in this encounter Care Teams Market Development Analyst Relationship Specialty Start Date End Date Terese Fischer NP [address] [place] [address] PCP - General 12/19/18 documented as of this encounter
--- OUTSIDE RECORDS SUMMARY | 2024-06-21 16:11 | XMS_ITS | Encounter Summary ---
Author Organization [facility] [place] [address] Care Team Providers Care Search Engineer Name Role Phone Nicolas Nat Malloy APRN Primary Care Provider Encounter Details Date Type Department Care Team (Latest Contact Info) Description 06/18/2024 Travel Social History Tobacco Use Types Packs/Day Years Used Date Smoking Tobacco: Never Smokeless Tobacco: Never Alcohol Use Standard Drinks/Week Comments No 0 (1 standard drink = 0.6 oz pur e alcohol) Overall Financial Resource Strain (CARDIA) Answe r Date Recorded How hard is it for you to pa y for the very basics like food, housing, medical care, and heating? Not very hard 04/07/2024 PRAPARE - Transportation Answer Date Re corded In the past 12 months, has l ack of transportation kept you from medical appointments or from getting medications? No 03/23 In the past 12 months, has l ack of transportation kept you from meetings, work, or from getting things needed for daily living? No 04/07/2024 Sex and Gender Information Value Date Recorded Sex Assigned at Not on file Gender Identity Not on file Sexual Orientation Not on file documented as of this encounter Plan of Treatment Upcoming Encounters Date Type Department Care Team (Late st Contact Info) Description 07/02/2024 8:00 AM EST [facility]ment [facility] [place] [address] 07/02/2024 9:00 AM EST Office Visit [place] [address] Rosalba Patel MD [facility] [place] [address] 07/02/2024 10:30 AM EST Appointment [place] [address] 07/07/2024 10:30 AM EST TH Visit (TeleHealth) [place] [address] Hem/Onc, Clinic Pharmacist None 07/17/2024 9:00 AM EST Appointment [place] [address] 07/17/2024 10:00 AM EST Office Visit [place] [address] Rosalba Patel MD [facility] [place] [place] [address] 07/17/2024 11:30 AM EST Appointment [place] [address] 07/30/2024 7:30 AM EST Appointment [place] [address] 07/30/2024 8:30 AM EST Office Visit [place] [address] Yamileth Nur APRN [facility] [place] [address] 07/30/2024 10:00 AM EST Appointment [place] [address] 08/13/2024 8:00 AM EST Appointment [place] [address] 08/13/2024 9:00 AM EST Office Visit [place] [address] Rosalba Patel MD [facility] [place] [address] 08/13/2024 10:30 AM EST Appointment [place] [address] documented as of this encounter Visit Diagnoses Not on filedocumented in this encounter Care Teams Search Engineer Relationship Specialty Start Date End Date Nat Nicolas, NETWORK PROGRAMMER [address] [place] [address] PCP - General Family Medicine 04/02/24 documented as of this encounter
--- OUTSIDE RECORDS SUMMARY | 2024-06-21 16:11 | XMS_ITS | Encounter Summary ---
Author Organization [facility] Address [address] [place] [address] Care Team Providers Care Box Loader Name Role Phone None, Provider Primary Care Provider Unavailabl e Encounter Details Date Type Department Care Team (Late st Contact Info) Description 12/02/2018 Results Only Imaging [facility] [phone] Unknown, Provider, MD Social History Tobacco Use Types Packs/Day Years [...] on filedocumented in this encounter Care Teams Box Loader Relationship Specialty Start Date End Date None, Provider PCP - General 01/31/18 12/18/18 documented as of this encounter
--- OUTSIDE RECORDS SUMMARY | 2024-06-21 16:11 | XMS_ITS | Encounter Summary ---
Author Organization [facility] Address [address] [place] [address] Care Team Providers Care Tool Maintenance Worker Name Role Phone Natanaelbelén Terese Belén HEAD OF GEOGRAPHY Primary Care Provider [phone] Encounter Details Date Type Department Care Team (Late st Contact Info) Description 08/04/2019 Lab Requisition [facility] Pathology & Laboratory Medicine - [address] [address] Unknown, Provider, Social History Tobacco Use Types [...] 21:23 EST) Hold Hold 08/04/2019 22:[address] [facility] Blood VENOUS BLOOD / Unknown 08/04/2019 21:23 EST 08/04/2019 21:23 EST us Provider Unknown MD LAB INFO SERVICE AND SUPPORT & PHONE RESULT Final Result Performing Organization Address City/[facility]/ZIP Co de Phone Number [facility] [address] [place] [address] * HOLD SST (08/04/2019 21:23 EST) Hold Hold 08/04/2019 22:[address] [facility] Blood VENOUS BLOOD / Unknown 08/04/2019 21:23 EST 08/04/2019 21:23 EST us Provider Unknown MD LAB INFO SERVICE AND SUPPORT & PHONE RESULT Final Result Performing Organization Address City/[facility]/ZIP Co de Phone Number [facility] [address] [place] [address] * HOLD SST (08/04/2019 21:23 EST) Hold Hold 08/04/2019 22:[address] [facility] Blood VENOUS BLOOD / Unknown 08/04/2019 21:23 EST 08/04/2019 21:23 EST us Provider Unknown MD LAB INFO SERVICE AND SUPPORT & PHONE RESULT Final Result Performing Organization Address City/[facility]/ZIP Co de Phone Number [facility] [address] [place] [address] * HOLD SST (08/04/2019 21:23 EST) Hold Hold 08/04/2019 22:[address] [facility] Blood VENOUS BLOOD / Unknown 08/04/2019 21:23 EST 08/04/2019 21:23 EST us Provider Unknown LAB INFO SERVICE AND SUPPORT & PHONE RESULT Final Result Performing Organization Address [facility] Co de Phone Number [facility] [address] [place] [address] * HEPATITIS B SURFACE ANTIBODY (08/04/2019 12:50 EST) Hep B Surface Ab, Quantitative 4.6 See Note mIU/mL 08/05/2019 9:[address] [facility] Comment: Reference Range for Hep B Surface Ab, Quant: Positive: >= 10.0 mIU/mL Negative: ??< 10.0 mIU/mL Patient is presumed to not be immune to infection with Hepatitis B Virus. Hep B Surface Ab, Qualitative Negative See Note 08/05/2019 9:[address] [facility] Comment: Reference Range for Hep B Surface Ab, Qual: Unvaccinated: ??Negative Vaccinated: ??Positive Blood VENOUS BLOOD / Unknown Venipuncture / Unknown 08/04/2019 12:50 EST 08/04/2019 21:22 EST us Provider Unknown CHEMISTRY & BLOOD GAS ORDERA BLES Final Result Performing Organization Address [facility] de Phone Number [facility] [address] [place] [address] * MEASLES IGG AB (08/04/2019 12:50 EST) Measles IgG Ab Negative See Note 08/05/2019 11:[address] [facility] Comment:Absence of detectabl e measles virus IgG antibodies. A negative result generally indicates that the patient is susceptible to measles. Blood VENOUS BLOOD / Unknown Venipuncture / Unknown 08/04/2019 12:50 EST 08/04/2019 21:22 EST us Provider Unknown IMMUNOLOGY AND SEROLOGY MARTY WALLIS Final Result Performing Organization Address City/[facility]/ZIP Co de Phone Number [facility] [address] [place] [address] * VARICELLA IGG ANTIBODY (08/04/2019 12:50 EST) Varicella IgG Ab Positive See Note 08/05/2019 11:[address] [facility] Comment:Presence of detectab le Varicella Zoster virus IgG antibodies. Blood VENOUS BLOOD / Unknown Venipuncture / Unknown 08/04/2019 12:50 EST 08/04/2019 21:22 EST us Provider Unknown MD IMMUNOLOGY AND SEROLOGY ORDE RABLES Final Result Performing Organization Address [facility] Co de Phone Number [facility] [address] [place] [address] * MUMPS ANTIBODY IGG (08/04/2019 12:50 EST) Mumps Antibody IgG Negative See Note 08/05/2019 11:[address] [facility] Comment:Absence of detectabl e mumps virus IgG antibodies. A negative result generally indicates that the patient is susceptible to mumps. Blood VENOUS BLOOD / Unknown Venipuncture / Unknown 08/04/2019 12:50 EST 08/04/2019 21:22 EST us Provider Unknown IMMUNOLOGY AND SEROLOGY ORDE RABLES Final Result Performing Organization Address City/[facility] Co de Phone Number [facility] [address] [place] [address] * RUBELLA IGG ANTIBODY (08/04/2019 12:50 EST) Rubella IgG Ab Positive See Note 08/05/2019 11:[address] [facility] Comment:Positive for IgG ant ibodies to Rubella virus. Blood VENOUS BLOOD / Unknown Venipuncture / Unknown 08/04/2019 12:50 EST 08/04/2019 21:22 EST us Provider Unknown MD CHEMISTRY & BLOOD GAS ORDERA BLES Final Result [facility] [address] [place] [address] documented in this encounter Visit Diagnoses Not on filedocumented in this encounter Care Teams Tool Maintenance Worker Relationship Specialty Start Date End Date Terese Fischer, NADEEN [address] [place] [address] PCP - General 12/19/18 documented as of this encounter
--- OUTSIDE RECORDS SUMMARY | 2024-06-21 16:11 | XMS_ITS | Encounter Summary ---
Author Organization [facility] Address [address] [place] [address] Care Team Providers Care Crime Lab Analyst Name Role Phone None, Provider Primary Care Provider Unavailabl e Encounter Details Date Type Department Care Team (Late st Contact Info) Description 02/12/2018 Phlebotomy Only [facility] [address] [place] [address] Geophysical Computer, Outpatient Social History Tobacco Use Types Packs/Day [...] on filedocumented in this encounter Care Teams Crime Lab Analyst Relationship Specialty Start Date End Date None, Provider PCP - General 01/31/18 12/18/18 documented as of this encounter
--- OUTSIDE RECORDS SUMMARY | 2024-06-21 16:11 | XMS_ITS | Clinical Summary ---
Author Organization [facility] Address [facility] [place] [address] Care Team Providers Care Supervisor Maintenance Name Role Phone Nat Nicolas APRN Primary Care Provider Allergies Active Allergy Reactions Criticality Noted Date Comments Sulfa (Sulfonamide Antibiotics) Rash 01/20 Medications Medication Sig Dispensed Refills Start Date End Date Status lisinopril (PRINIVIL;ZESTRIL) 20 mg tablet Take 20 mg by mouth daily. 40MG Active atenolol (TENORMIN) 25 mg tablet Take 25 mg by mouth daily. Active meclizine (ANTIVERT) 25 mg tablet Take 1 tablet by mouth 3 times daily as needed for Dizziness. 30 tablet 0 08/03/2013 Active Additional Information Patient not taking.Reported on 06/04/2024 ibuprofen (ADVIL;MOTRIN) 600 mg Tablet Take 1 tablet by mouth every 6 hours as needed for Pain. 30 tablet 0 01/24/2015 Active Additional Information Patient not taking.Reported on 06/18/2024 benzonatate (TESSALON) 100 mg Capsule Take 1 capsule by mouth 3 times daily as needed for Cough. 30 tablet 0 04/03/2015 Active Additional Information Patient not taking.Reported on 06/18/2024 lisinopriL (Zestril) 20 mg Tablet Take 0.5 tablets by mouth daily. 30 tablet 02/07/2022 Active Additional Information Patient not taking.Reported on 06/18/2024 metFORMIN (FORTAMET) 500 mg Tablet Extended Rel 24 hr Take 1 tablet by mouth 2 times daily (with meals). 60 tablet 3 02/07/2022 Active hydroCHLOROthiazide 12.5 mg tablet Take 12.5 mg by mouth. 11/16/2023 Active lidocaine-prilocain e (EMLA) CreamIndications:Ma lignant neoplasm of lower-outer quadrant of left breast of female, estrogen receptor positive Apply topically 60 minutes prior to accessing port. Apply a thick layer of cream to designated site of intact skin. Cover site with occlusive dressing. 30 g 1 04/30/2024 Active prochlorperazine (Compazine) 10 mg tablet Take 1 tablet by mouth every 6 hours as needed for Nausea. 30 tablet 3 05/08/2024 Active Additional Information Patient not taking.Reported on 06/04/2024 OLANZapine (ZyPREXA) 5 mg tablet Take 1 tablet by mouth nightly. On nights 1-4 of chemotherapy. 16 tablet 1 05/08/2024 Active Additional Information Patient not taking.Reported on 06/04/2024 glipiZIDE (Glucotrol) 5 mg tablet 05/29/2024 Active ondansetron (Zofran) 8 mg tablet Take 1 tablet by mouth every 8 hours as needed for Nausea. 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, estrogen receptor positive 04/07/2024 Overview (04/07/2024): 04/02/24 [place] [facility] [place]+/HER2 pending left breast ILC, intermediate grade 04/02/24 left breast U/S bx [facility] [place]: 2.4 cm, 3:00, 4 FN HTN (hypertension) 02/14/2013 Migraine headache 02/14/2013 Encounters Date Type Department Care Team Description 06/18/2024 3:30 PM EST Office Visit Hematology [place] [address] Lázaro Munoz, [facility] Malignant neoplasm of lower-outer quadrant of left breast of female, estrogen receptor positive 06/18/2024 1:30 PM EST Office Visit Hematology [place] [address] Dallin Falcon, MEDICAL LIAISON Malignant neoplasm of lower-outer quadrant of left breast of female, estrogen receptor positive; Type 2 diabetes mellitus without complication, without long-term current use of insulin; Examination prior to chemotherapy 06/18/2024 1:03 PM EST - 06/18/2024 11:59 PM EST Hospital Encounter Hematology [place] [address] Malignant neoplasm of lower-outer quadrant of left breast of female, estrogen receptor positive; Type 2 diabetes mellitus without complication, without long-term current use of insulin Discharge Disposition: Home 06/18/2024 12:30 PM EST - 06/18/2024 1:02 PM EST Hospital Encounter Hematology [place] [address] Malignant neoplasm of lower-outer quadrant of left breast of female, estrogen receptor positive; Type 2 diabetes mellitus without complication, without long-term current use of insulin Discharge Disposition: Home 06/18/2024 Travel 06/11/2024 2:00 PM EST TH Visit (TeleHealth) Hematology [place] [address] Breezy Long, [facility] Malignant neoplasm of lower-outer quadrant of left breast of female, estrogen receptor positive 06/09/2024 Telephone Hematology [place] [address] Lázaro Fong V, [facility] Results 06/04/2024 11:00 AM EST Office Visit Hematology [place] [address] Rosalba Patel MD Malignant neoplasm of lower-outer quadrant of left breast of female, estrogen receptor positive 06/04/2024 8:58 AM EST - 06/04/2024 11:59 PM EST Hospital Encounter Hematology [place] [address] Malignant neoplasm of lower-outer quadrant of left breast of female, estrogen receptor positive; Type 2 diabetes mellitus without complication, without long-term current use of insulin Discharge Disposition: Home 06/04/2024 8:55 AM EST - 06/04/2024 8:57 AM EST Hospital Encounter Hematology [place] [address] Malignant neoplasm of lower-outer quadrant of left breast of female, estrogen receptor positive; Type 2 diabetes mellitus without complication, without long-term current use of insulin Discharge Disposition: Home 06/04/2024 Travel 05/26/2024 8:30 AM EST TH Visit (TeleHealth) Hematology [place] [address] Andrés Donahue, [facility] Malignant neoplasm of lower-outer quadrant of left breast of female, estrogen receptor positive 05/26/2024 [place] [address] Nat Hess, CLOTH STRETCHER 05/22/2024 10:00 AM EDT Office Visit Hematology [place] [address] Dallin Falcon, GENE Malignant neoplasm of lower-outer quadrant of left breast of female, estrogen receptor positive; H/O insulin dependent diabetes mellitus; Examination prior to chemotherapy 05/22/2024 8:32 AM EDT - 05/22/2024 11:59 PM EDT Hospital Encounter Hematology [place] [address] Malignant neoplasm of lower-outer quadrant of left breast of female, estrogen receptor positive Discharge Disposition: Home 05/22/2024 8:31 AM EDT Hospital Encounter Hematology [place] [address] Malignant neoplasm of lower-outer quadrant of left breast of female, estrogen receptor positive Discharge Disposition: Home 05/22/2024 [place] [address] Nat Hess, CLOTH STRETCHER 05/22/2024 Travel 05/20/2024 [place] [address] Nat Hess, CLOTH STRETCHER 05/19/2024 1:00 PM EDT Office Visit Hematology and Oncology at [place] [phone] Lázaro Fong V, C Malignant neoplasm of lower-outer quadrant of left breast of female, estrogen receptor positive; Family history of ovarian cancer; Family history of BRCA1 gene positive 05/19/2024 Travel 05/16/2024 Notes Only Care Management [place] [phone] Nat Hess, CLOTH STRETCHER 05/15/2024 Orders Only Hematology and Oncology at [place] [phone] Kiana Dickerson, C Malignant neoplasm of lower-outer quadrant of left breast of female, estrogen receptor positive 05/13/2024 10:30 AM EDT TH Visit (TeleHealth) Hematology and Oncology at [place] [phone] Tamela Coats, [facility] Malignant neoplasm of lower-outer quadrant of left breast of female, estrogen receptor positive 05/12/2024 [place] [address] Didi Loredo, RN 05/12/2024 Telephone Hematology and Oncology at [place] [phone] Caroline Bell, RN 05/08/2024 1:00 PM EDT Clinical Support Hematology and Oncology at [place] [phone] Lázaro Munoz, [facility] Malignant neoplasm of lower-outer quadrant of left breast of female, estrogen receptor positive 05/08/2024 11:30 AM EDT Office Visit Hematology and Oncology at [place] [phone] Rosalba Patel MD Malignant neoplasm of lower-outer quadrant of left breast of female, estrogen receptor positive 05/08/2024 9:42 AM EDT - 05/08/2024 11:59 PM EDT Hospital Encounter Hematology [place] [address] Malignant neoplasm of lower-outer quadrant of left breast of female, estrogen receptor positive Discharge Disposition: Home 05/08/2024 9:42 AM EDT - 05/08/2024 11:59 PM EDT Hospital Encounter Hematology [place] [address] Malignant neoplasm of lower-outer quadrant of left breast of female, estrogen receptor positive Discharge Disposition: Home 05/08/2024 6:57 AM EDT - 05/08/2024 9:41 AM EDT Hospital Encounter Mammography at [place] [phone] Daily Amaral MD Malignant neoplasm of left breast in female, estrogen receptor positive, unspecified site of breast Discharge Disposition: Home 05/08/2024 6:56 AM EDT Hospital Encounter Mammography at [place] [phone] Dorota Anderson MD Abnormal finding on breast imaging Discharge Disposition: Home 05/08/2024 6:55 AM EDT Hospital Encounter [place] [address] Dorota Anderson MD Abnormal finding on breast imaging Discharge Disposition: Home 05/08/2024 Travel 05/07/2024 Telephone Hematology and Oncology at [place] [phone] Caroline Bell RN 05/06/2024 Telephone [place] [address] Chasidy Wright 05/06/2024 Telephone Hematology [place] [address] Juani Sosa RN Error 05/05/2024 12:33 PM EDT - 05/05/2024 11:59 PM EDT Hospital Encounter Radiology at [place] [phone] Dallin Falcon APRN Malignant neoplasm of lower-outer quadrant of left breast of female, estrogen receptor positive Discharge Disposition: Home 05/05/2024 10:45 AM EDT - 05/05/2024 12:32 PM EDT Hospital Encounter Non-Invasive [place] [address] Boom Dallindennis Zuñiga APRN Malignant neoplasm of lower-outer quadrant of left breast of female, estrogen receptor positive Discharge Disposition: Home 05/05/2024 Travel 04/30/2024 2:00 PM EDT Office Visit Hematology and Oncology at [place] [phone] Rosalba Patel MD Malignant neoplasm of lower-outer quadrant of left breast of female, estrogen receptor positive 04/30/2024 Notes Only Radiology at [place] [phone] Harriett Ramirez PA 04/29/2024 10:02 AM EDT - 04/29/2024 11:59 PM EDT Hospital Encounter Nuclear Medicine at [place] [phone] Daily Amaral MD Discharge Disposition: Home 04/29/2024 7:20 AM EDT - 04/29/2024 10:01 AM EDT Hospital Encounter [place] [address] Daily Amaral MD Malignant neoplasm of left breast in female, estrogen receptor positive, unspecified site of breast Discharge Disposition: Home 04/29/2024 Telephone Hematology [place] [address] [employer] schumacher Disability Paperwork 04/29/2024 Travel 04/29/2024 Orders Only Hematology [place] [address] Rosalba Patel MD 04/25/2024 11:26 AM EDT - 04/25/2024 11:59 PM EDT Hospital Encounter [place] [address] Daily Amaral MD Malignant neoplasm of left breast in female, estrogen receptor positive, unspecified site of breast Discharge Disposition: Home 04/25/2024 10:35 AM EDT Laboratory Appointment Lab [address] [address] Malignant neoplasm of left breast in female, estrogen receptor positive, unspecified site of breast 04/25/2024 Travel 04/24/2024 Notes Only Hematology and Oncology at [place] [address] Juani Sosa RN Letter Request From Patient 04/16/2024 2:00 PM EDT Office Visit Hematology and Oncology at [place] [address] Rosalba Patel MD Malignant neoplasm of lower-outer quadrant of left breast of female, estrogen receptor positive (Primary Dx); H/O insulin dependent diabetes mellitus 04/16/2024 Notes Only Care Management [place] [address] Nat Hess, CLOTH STRETCHER 04/16/2024 Patient Outreach Hematology and Oncology at [place] [address] Genna Arvizu RN 04/16/2024 Travel 04/16/2024 Telephone Mammography at [place] [address] Didi Loredo, HOANG 04/14/2024 Telephone General Surgery at [place] [address] Royce Newton MD 04/10/2024 Telephone [place] [address] Daily Amaral MD 04/09/2024 12:13 PM EDT - 04/09/2024 11:59 PM EDT Hospital Encounter MRI at [place] [address] Armond Amezcua MD Discharge Disposition: Home 04/09/2024 12:13 PM EDT - 04/09/2024 11:59 PM EDT Hospital Encounter MRI at [address] Armond Amezcua MD Malignant neoplasm of lower-outer quadrant of left breast of female, estrogen receptor positive Discharge Disposition: Home 04/09/2024 9:00 AM EDT Office Visit Hematology and Oncology at [place] [phone] Daily Amaral MD Malignant neoplasm of lower-outer quadrant of left breast of female, estrogen receptor positive (Primary Dx) 04/09/2024 Patient Outreach Hematology and Oncology at [address] Genna Arvizu RN 04/09/2024 Notes Only Care Management [place] [address] Nat Hess, CLOTH STRETCHER 04/08/2024 8:43 AM EDT - 04/08/2024 11:59 PM EDT Hospital Encounter MRI at [place] [phone] Daily Amaral MD Malignant neoplasm of left breast in female, estrogen receptor positive, unspecified site of breast Discharge Disposition: Home 04/08/2024 Orders Only Mammography at [place] [phone] Armond Amezcua MD Malignant neoplasm of lower-outer quadrant of left breast of female, estrogen receptor positive 04/08/2024 Telephone Mammography at [place] [phone] Didi Loredo, RN 04/08/2024 Travel 04/07/2024 Patient Outreach Hematology and Oncology at [place] [phone] Genna Arvizu RN 04/04/2024 Orders Only General Surgery at [place] [phone] Daily Amaral MD Malignant neoplasm of left breast in female, estrogen receptor positive, unspecified site of breast 04/04/2024 Notes Only Hematology [place] [address] Ebony Becerril 04/02/2024 8:28 AM EDT - 04/02/2024 11:59 PM EDT Hospital Encounter [place] [address] Dorota Anderson MD Abnormal finding on breast imaging Discharge Disposition: Home 04/02/2024 7:45 AM EDT - 04/02/2024 8:27 AM EDT Hospital Encounter [place] [address] Dorota Anderson MD Abnormal finding on breast imaging Discharge Disposition: Home 04/02/2024 Travel from Last 3 Months Immunizations Name Administration Dates Next Due Influenza Trivalent w/Preservative 04/18/2012 Td Adult 04/18/2012 Family History Medical History Relation Comments Cancer Maternal Grandmother widely meta static, primary unknown Ovarian Cancer Mother Hereditary Breast and Ovaria n Cancer Syndrome Sister BRCA1+ Ovarian Cancer Sister Breast Cancer Neg Hx Relation Status Comments Father Maternal Grandmother Mother Sister Alive Social History Tobacco Use Types Packs/Day [...] Sign Reading Time Taken Comments Blood Pressure 118/80 06/18/2024 1:35 PM EST Pulse 110 06/18/2024 1:35 PM EST Temperature 36.2 ??C (97.2 ??F) 06/18/2024 1:35 PM ES T Respiratory Rate 18 06/18/2024 1:35 PM EST Oxygen Saturation 96% 06/18/2024 1:35 PM EST Inhaled Oxygen Concentration - - Weight 80.2 kg (176 lb 12.9 oz) 06/18/2024 1:35 PM EST Height 163.1 cm (5' 4.21) 06/18/2024 1:35 PM ES T Body Mass Index 30.15 06/18/2024 1:35 PM EST Plan of Treatment Upcoming Encounters Date Type Department Care Team (Late st Contact Info) Description 07/02/2024 8:00 AM EST Appointment Hematology [place] [address] 07/02/2024 9:00 AM EST Office Visit Hematology [place] [address] Rosalba Patel MD [facility] [place] [address] 07/02/2024 10:30 AM EST Appointment Hematology [place] [address] 07/07/2024 10:30 AM EST TH Visit (TeleHealth) Hematology [place] [address] Hem/Onc, Clinic Pharmacist None 07/17/2024 9:00 AM EST Appointment Hematology [place] [address] 07/17/2024 10:00 AM EST Office Visit Hematology [place] [address] Rosalba Patel MD [facility] [place] [address] 07/17/2024 11:30 AM EST Appointment Hematology [place] [address] 07/30/2024 7:30 AM EST Appointment Hematology [place] [address] 07/30/2024 8:30 AM EST Office Visit Hematology [place] [address] Dallin Falcon APRN [facility] [place] [address] 07/30/2024 10:00 AM EST Appointment Hematology [place] [address] 08/13/2024 8:00 AM EST Appointment Hematology [place] [address] 08/13/2024 9:00 AM EST Office Visit Hematology [place] [address] Rosalba Patel MD [facility] [place] [address] 08/13/2024 10:30 AM EST Appointment Hematology [place] [address] Health Maintenance Due Date Last Done Comments CT Colonography 1964 Colonoscopy 1964 Colorectal Cancer Screening 1964 FIT DNA 1964 FIT 1964 Sigmoidoscopy (10 year) with FIT yearly 1964 Sigmoidoscopy 1964 Pneumococcal Vaccine: At-Ris k 5-64yrs (1 of 2 - PCV) 02/04/1970 DM Opthalmology Exam 02/04/1974 HIV screen 02/04/1982 Hepatitis C Screening 02/04/1982 HPV test 02/04/1994 PAP Smear 02/04/1994 Breast Cancer Share Decision Needed 2004 Breast Cancer screening 2004 Tetanus/Diphtheria/Pertussis Vaccines (1 - Tdap) 04/19/2012 04/18/2012 Zoster vaccine (1 of 2) 02/04/2014 DM Hemoglobin A1c 11/05/2015 08/06/2015, 04/30/2014 DM Urine Microalbumin yearly 08/06/2016 08/06/2015 Advance Directive 02/04/2019 Lipid Screening 08/06/2020 08/06/2015 Covid-19 Vaccine (1 - 2023-2 5 season) 2024 Influenza (Flu) vaccine (1 o f 1 - Influenza standard series) 03/23/2024 04/18/2012 DM Creatinine yearly 06/18/2025 06/18/2024, 06/04/2024, 05/22/2024, Additional history exists Diabetes Screening (HgbA1C o r Glucose) Discontinued 06/18/2024, 06/04/2024, 05/22/2024, Additional history exists Medical Devices Implanted Type Area Molding Technician Device Identifier Shelf Expiration Date Model / Serial / Lot Breast Clip- 4 Implanted:Qty : 1 on 04/02/2024 by Dorota Anderson MD Breast Clip Left: Breast BARD - [employer]Y [employer] ULTRACOR MARKER / / [id number] Description:CHASTITY Breast Clip-05/08/20 Implanted:Qty : 1 on 05/08/2024 by Olive Garcia MD Breast Clip Left: Axilla Bard - 0614 ULTRACOR TWRIL / / [id number] Description:TWRIL Port Infusion 8fr Cath Power Injectable Lp 1lum Ct Ti ([id number])- Implanted:Qty : 1 on 05/05/2024 by Debra Tamayo PA IMPLANTS Right: Chest Wall [employer]ARD [employer] - CR BARD [id number] / / [id number] Description:rij vaccess 8fr power Procedures Procedure Name Priority Date/Time Associated Diagnosis Comments CBC (WITH DIFF) STAT 06/18/2024 1:22 PM EST Malignant neoplasm of lower-outer quadrant of left breast of female, estrogen receptor positive Type 2 diabetes mellitus without complication, without long-term current use of insulin COMPREHENSIVE METABOLIC PANEL STAT 06/18/2024 1:22 PM EST Malignant neoplasm of lower-outer quadrant of left breast of female, estrogen receptor positive Type 2 diabetes mellitus without complication, without long-term current use of insulin CANCER ANTIGEN 15-3 STAT 06/18/2024 1 :22 PM EST Malignant neoplasm of lower-outer quadrant of left breast of female, estrogen receptor positive Type 2 diabetes mellitus without complication, without long-term current use of insulin POC, GLUCOSE Routine 06/04/2024 2:38 PM EST SCAN, PERIPHERAL BLOOD STAT 9:07 AM EST Malignant neoplasm of lower-outer quadrant of left breast of female, estrogen receptor positive Type 2 diabetes mellitus without complication, without long-term current use of insulin CBC (WITH DIFF) STAT 06/04/2024 9:07 AM EST Malignant neoplasm of lower-outer quadrant of left breast of female, estrogen receptor positive Type 2 diabetes mellitus without complication, without long-term current use of insulin COMPREHENSIVE METABOLIC PANEL STAT 06/04/2024 9:07 AM EST Malignant neoplasm of lower-outer quadrant of left breast of female, estrogen receptor positive Type 2 diabetes mellitus without complication, without long-term current use of insulin CANCER ANTIGEN 15-3 STAT 06/04/2024 9 :07 AM EST Malignant neoplasm of lower-outer quadrant of left breast of female, estrogen receptor positive Type 2 diabetes mellitus without complication, without long-term current use of insulin CANCER ANTIGEN 15-3 STAT 05/22/2024 9 :01 AM EDT Malignant neoplasm of lower-outer quadrant of left breast of female, estrogen receptor positive COMPREHENSIVE METABOLIC PANEL STAT 05/22/2024 9:01 AM EDT Malignant neoplasm of lower-outer quadrant of left breast of female, estrogen receptor positive CBC (WITH DIFF) STAT 05/22/2024 9:01 AM EDT Malignant neoplasm of lower-outer quadrant of left breast of female, estrogen receptor positive CANCER ANTIGEN 15-3 STAT 05/08/2024 1 0:25 AM EDT Malignant neoplasm of lower-outer quadrant of left breast of female, estrogen receptor positive COMPREHENSIVE METABOLIC PANEL STAT 05/08/2024 10:25 AM EDT Malignant neoplasm of lower-outer quadrant of left breast of female, estrogen receptor positive CBC (WITH DIFF) STAT 05/08/2024 10:25 AM EDT Malignant neoplasm of lower-outer quadrant of left breast of female, estrogen receptor positive MAMMO US BIOPSY LYMPH NODE LEFT Routine 05/08/2024 9:41 AM EDT Malignant neoplasm of left breast in female, estrogen receptor positive, unspecified site of breast SURGICAL PATHOLOGY Routine 05/08/2024 9: 24 AM EDT Malignant neoplasm of left breast in female, estrogen receptor positive, unspecified site of breast MAMMO US AXILLA LEFT Routine 05/08/2024 8:30 AM EDT Abnormal finding on breast imaging MAMMO BREAST US LIMITED RIGHT Routine 05/08/2024 8:15 AM EDT Abnormal finding on breast imaging IR MEDIPORT PLACEMENT Routine 05/05/2024 3:09 PM EDT Malignant neoplasm of lower-outer quadrant of left breast of female, estrogen receptor positive POC, GLUCOSE Routine 05/05/2024 1:05 PM EDT ECHO COMPLETE Routine 05/05/2024 12:09 PM EDT Malignant neoplasm of lower-outer quadrant of left breast of female, estrogen receptor positive NM BONE SCAN WHOLE BODY Routine 04/29/2024 10:53 AM EDT Malignant neoplasm of left breast in female, estrogen receptor positive, unspecified site of breast CT CHEST ABDOMEN PELVIS W CONTRAST (GENERIC) Routine 04/25/2024 1:50 PM EDT Malignant neoplasm of left breast in female, estrogen receptor positive, unspecified site of breast COMPREHENSIVE METABOLIC PANEL Routine 04/25/2024 11:14 AM EDT Malignant neoplasm of left breast in female, estrogen receptor positive, unspecified site of breast CBC (WITH DIFF) Routine 04/25/2024 11:14 AM EDT Malignant neoplasm of left breast in female, estrogen receptor positive, unspecified site of breast MRI ADDITIONAL VIEW - BREAST Routine 04/09/2024 2:20 PM EDT Malignant neoplasm of lower-outer quadrant of left breast of female, estrogen receptor positive MRI BREAST WWO CONTRAST BILAT Routine 04/08/2024 10:00 AM EDT Malignant neoplasm of left breast in female, estrogen receptor positive, unspecified site of breast MAMMO DIAGNOSTIC WITHOUT CAD LEFT Routine 04/02/2024 9:25 AM EDT Abnormal finding on breast imaging MAMMO US BIOPSY LEFT Routine 04/02/2024 9:14 AM EDT Abnormal finding on breast imaging SURGICAL PATHOLOGY Routine 04/02/2024 9: 12 AM EDT Abnormal finding on breast imaging HER-2 FISH Routine 04/02/2024 9:12 AM EDT Abnormal finding on breast imaging LIPID PANEL (REFLEX DIRECT LDL) Routine 08/06/2015 HEMOGLOBIN A1C Routine 08/06/2015 U ALBUMIN/CRE RATIO Routine 08/06/2015 from Last 3 Months or Most Recently Relevant to Health Maintenance Results * (ABNORMAL) Cancer antigen 15-3 (06/18/2024 1:22 PM EST) Only the most recent of4 resultswithin the time period is included. CA 15-3 39(H) <=25 unit/mL 06/18/2024 2:14 PM EST [facility] Comment:This result was gene rated using a Tani Elías immunoassay. Results obtained from other methods or manufacturers cannot be used interchangeably with this method. Blood VENOUS BLOOD SPECIMEN / Unknown Venipuncture / Unknown 06/18/2024 1:22 PM EST 06/18/2024 1:36 PM EST Rosalba Patel MD CHEMISTRY ORDERABLES [facility] [place] [address] * (ABNORMAL) CBC (with Diff) (06/18/2024 1:22 PM EST) Only the most recent of5 resultswithin the time period is included. White Blood Cell 10.92(H) 4.00 - 9.50 x10(3)/mc L 06/18/2024 1:44 PM [facility] Red Blood Cell 4.05 4.00 - 5.21 x10(6)/mc L 06/18/2024 1:44 PM [facility] Hemoglobin 12.6 11.7 - 15.5 g/dL 06/18/2024 1:44 PM [facility] Hematocrit 37.0 35.7 - 45.8 % 06/18/2024 1:44 PM [facility] Mean Cell Volume 91.4 82.6 - 94.4 fL 06/18/2024 1:44 PM [facility] Mean Cell Hemoglobin 31.1 27.1 - 32.0 pg 06/18/2024 1:44 PM [facility] Mean Cell Hemoglobin Concentration 34.1 31.7 - 35.0 g/dL 06/18/2024 1:44 PM [facility] Platelet 287 145 - 357 x10(3)/mc L 06/18/2024 1:44 PM [facility] Mean Platelet Volume 10.4 7.6 - 12.9 fL 06/18/2024 1:44 PM [facility] RDW Standard Deviation 46.6(H) 37.0 - 46.0 fL 06/18/2024 1:44 PM [facility] RDW coefficient of variation 14.9(H) 11.5 - 14.1 % 06/18/2024 1:44 PM [facility] NRBC% auto 0.0 % 06/18/2024 1:44 PM [facility] NRBC Absolute <0.01 <0.01 x10(3)/mc L 06/18/2024 1:44 PM [facility] Neutrophil % 74.6 % 06/18/2024 1:44 PM [facility] Neutrophil Absolute (ANC) - Automated 8.14(H) 1.70 - 6.10 x10(3)/mc L 06/18/2024 1:44 PM [facility] Lymph % 12.9 % 06/18/2024 1:44 PM [facility] Lymph Absolute 1.41 0.90 - 3.20 x10(3)/mc L 06/18/2024 1:44 PM [facility] Monocyte % 7.7 % 06/18/2024 1:44 PM [facility] Monocyte Absolute 0.84 0.30 - 0.90 x10(3)/mc L 06/18/2024 1:44 PM [facility] Eos % 0.8 % 06/18/2024 1:44 PM [facility] Eos Absolute 0.09 0.00 - 0.40 x10(3)/mc L 06/18/2024 1:44 PM [facility] Basophil % 0.7 % 06/18/2024 1:44 PM [facility] Baso Absolute 0.08 0.00 - 0.10 x10(3)/mc L 06/18/2024 1:44 PM [facility] Immature Gran % 3.3 % 1:44 PM [facility] Immature Gran Absolute 0.36(H) 0.00 - 0.04 x10(3)/mc L 06/18/2024 1:44 PM [facility] Blood VENOUS BLOOD SPECIMEN / Unknown Venipuncture / Unknown 06/18/2024 1:22 PM EST 06/18/2024 1:36 PM EST Rosalba Patel MD HEMATOLOGY ORDERABLE S [facility] [place] [address] * (ABNORMAL) Comprehensive metabolic panel Non-fasting (06/18/2024 1:22 PM EST) Only the most recent of5 resultswithin the time period is included. Glucose 305(H) 65 - 199 mg/dL 06/18/2024 2:08 PM [facility] Comment:Glucose Concentratio n >=200 mg/dL plus symptoms is consistent with Diabetes Mellitus. Blood Urea Nitrogen 20(H) 8 - 18 mg/dL 06/18/2024 2:08 PM [facility] Creatinine 0.63(L) 0.70 - 1.20 mg/dL 06/18/2024 2:08 PM [facility] Sodium 141 135 - 145 mMol/L 06/18/2024 2:08 PM [facility] Potassium 3.9 3.5 - 5.0 mMol/L 06/18/2024 2:08 PM [facility] Chloride 99 98 - 107 mMol/L 06/18/2024 2:08 PM [facility] Carbon Dioxide 25 22 - 31 mMol/L 06/18/2024 2:08 PM [facility] Anion Gap 17(H) 5 - 15 mMol/L 06/18/2024 2:08 PM [facility] Calcium 9.4 8.5 - 10.5 mg/dL 06/18/2024 2:08 PM [facility] Protein, Total 7.0 6.1 - 8.0 g/dL 06/18/2024 2:08 PM [facility] Albumin 4.4 3.2 - 5.2 g/dL 06/18/2024 2:08 PM EST [facility] Aspartate Aminotransferase 12 <=30 unit/L 06/18/2024 2:08 PM EST [facility] Alanine Aminotransferase 17 0 - 30 unit/L 06/18/2024 2:08 PM EST [facility] Alkaline Phosphatase 172(H) 35 - 105 unit/L 06/18/2024 2:08 PM EST [facility] Bilirubin, Total 0.2 <=1.3 mg/dL 06/18/2024 2:08 PM EST [facility] Est Glomerular Filtration Rate - Female 102 mL/min/1. 73 m?? 06/18/2024 2:08 PM [facility] Comment: This patient's estimated GFR was calculated using the 2020 CKD-EPI equation. The estimated GFR can vary from the measured GFR by up to 30% in the absence of rapidly changing kidney function. Assessment of the estimated GFR is not appropriate when creatinine concentrations are rapidly changing. For clinical situations in which a more precise estimate of GFR is necessary, consider alternative methods of GFR estimation such as a 24-hour urine creatinine clearance. Assignment of CKD stage 1 - 5 for patients with an eGFR near the transition point between stages may be based on clinical assessment of muscle mass and symptoms in addition to eGFR. Link: eGFR Calculator [employer] Fasting Status No 06/18/2024 2:08 PM EST [facility] Blood VENOUS BLOOD SPECIMEN / Unknown Venipuncture / Unknown 06/18/2024 1:22 PM EST 06/18/2024 1:36 PM EST Rosalba Patel MD CHEMISTRY ORDERABLES [facility] [place] [address] * (ABNORMAL) POC, GLUCOSE (06/04/2024 2:38 PM EST) Only the most recent of2 resultswithin the time period is included. [facility] Signature Glucometer, POC 350(H) 65 - 199 mg/dL 06/04/2024 2:41 PM EST [facility] Comment:Supplemental ranges: <140 mg/dL before meals <180 mg/dL all other times of the day. Blood CAPILLARY BLOOD / Unknown 06/04/2024 2:38 PM EST 06/04/2024 2:41 PM EST Unknown POINT OF CARE TEST O RDERABLES Performing Organization Address [facility] Co de Phone Number [facility] [place] [address] * Scan, Peripheral Blood (06/04/2024 9:07 AM EST) RBC Morphology Abnormal 06/04/2024 10:30 AM EST [facility] Platelet Estimate Normal Normal 024 10:30 AM EST [facility] Polychromasia Present 06/04/2024 10:30 AM EST [facility] Blood VENOUS BLOOD SPECIMEN / Unknown Mediport Line / Unknown 06/04/2024 9:07 AM EST 06/04/2024 9:29 AM EST Rosalba Patel MD HEMATOLOGY ORDERABLE S Performing Organization Address [facility] Co de Phone Number [facility] [place] [address] * Mammo US Biopsy Lymph Node Left (05/08/2024 9:41 AM EDT) WORKSTATION ID [id number] DH RAD Anatomical Region Laterality Modality Breast Left Mammography Addenda Addendum by Olive Garcia MD on 05/12/2024 10:59 AM EDT --------ADDENDUM #1-------- PATHOLOGIC DIAGNOSIS: - 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 IMPRESSION: Malignant, Concordant result RECOMMENDATION: Surgical consultation as discussed with the patient and conveyed to the Comprehensive Breast Program by Didi Loredo RN. Thank you for letting us participate in the care of this patient. ??If you are a health care provider and have any questions regarding this report, please contact the number below. ??For patients who have questions please contact the health resident care associate that requested your imaging first. ? --------ORIGINAL REPORT -------- EXAMINATION: MAMMO US BIOPSY LYMPH NODE LEFT ? CLINICAL HISTORY: 59F with left locally advanced breast cancer, multiple abnormal left axillary nodes Morphologically abnormal left axillary lymph node PROCEDURAL DETAILS: Informed consent was obtained. Sterile technique was deployed. Approximately 10 cc of 1% lidocaine used for local anesthesia. A small skin incision was made and a biopsy was performed under ultrasound guidance. 3 core biopsy specimens were obtained using a Inrad 18G device. A Bard Twirl marker clip was placed. Cranio-caudal and lateral digital mammography performed to determine biopsy marker placement, which was shown to be at the expected location. COMPLICATIONS: None. ?? PROCEDURAL ATTESTATION: Fellow: Armond Amezcua M.D. Attending: I was present with the resident for the jean-baptiste component(s) of the procedure and otherwise remained immediately available for the duration of the procedure. I attest to having personally viewed the images/test and approve the above interpretation. PATHOLOGIC DIAGNOSIS: Pending IMPRESSION: Pending result, an addendum will be rendered to this report once result is available. RECOMMENDATION: Pending REVIEW PATH CONFERENCE?: No I have personally reviewed the image(s) and the resident's interpretation and agree with the findings, Olive Garcia at 05/08/2024 1:09 PM Thank you for letting us participate in the care of this patient. ??If you are a health care provider and have any questions regarding this report, please contact the number below. ??For patients who have questions please contact the health resident care associate that requested your imaging first. ? Electronically signed by: KALPESH Valerio [facility] ([phone]), at 05/08/2024 1:09 PM Impressions 05/08/2024 1:09 PM EDT Pending result, an addendum will be rendered to this report once result is available. RECOMMENDATION: Pending REVIEW PATH CONFERENCE?: No I have personally reviewed the image(s) and the resident's interpretation and agree with the findings, Olive Garcia at 05/08/2024 1:09 PM Thank you for letting us participate in the care of this patient. ??If you are a health care provider and have any questions regarding this report, please contact the number below. ??For patients who have questions please contact the health resident care associate that requested your imaging first. ? Electronically signed by: KALPESH Valerio [facility] ([phone]), at 05/08/2024 1:[address] [facility] [address], [place] ??[id number] Narrative 05/08/2024 1:09 PM EDT EXAMINATION: MAMMO US BIOPSY LYMPH NODE LEFT ? CLINICAL HISTORY: 59F with left locally advanced breast cancer, multiple abnormal left axillary nodes Morphologically abnormal left axillary lymph node PROCEDURAL DETAILS: Informed consent was obtained. Sterile technique was deployed. Approximately 10 cc of 1% lidocaine used for local anesthesia. A small skin incision was made and a biopsy was performed under ultrasound guidance. 3 core biopsy specimens were obtained using a Inrad 18G device. A Bard Twirl marker clip was placed. Cranio-caudal and lateral digital mammography performed to determine biopsy marker placement, which was shown to be at the expected location. COMPLICATIONS: None. ?? PROCEDURAL ATTESTATION: Fellow: Armond Amezcua M.D. Attending: I was present with the resident for the jean-baptiste component(s) of the procedure and otherwise remained immediately available for the duration of the procedure. I attest to having personally viewed the images/test and approve the above interpretation. PATHOLOGIC DIAGNOSIS: Pending Daily Amaral MD IMG MAMMO ORDERAB LES * (ABNORMAL) Surgical Pathology (05/08/2024 9:24 AM EDT) Only the most recent of2 resultswithin the time period is included. Case Report Surgical Pathology Report ? Case: [id number] ? Authorizing Provider: ??Daily Amaral MD ?? Collected: ? 05/08/2024 0924 ? Ordering Location: ? [place]amm[place] at [facility] [place] ?Received: ?05/08/2024 1240 ? Pathologist: ? Keyla Rodas, DO ? Specimen: ?Breast, Left, left axilla-lymph node ? 05/09/2024 11:03 AM EDT [facility] Final Diagnosis A. 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 05/09/2024 11:03 AM EDT [facility] Clinical Information A. Breast, Left, left axilla-lymph node Rule out malignancy Malignant neoplasm of left breast in female, estrogen receptor positive, unspecified site of breast [C50.912, Z17.0] 05/09/2024 11:03 AM EDT [facility] Gross Description A. Breast, Left, left axilla-lymph node. A - Labeled/Fixati ve: Left axilla lymph node, formalin. Quantity/Size: Three, ranging from 0.5 x 0.1 cm to 1.1 x 0.1 cm Tissue Description: [place]-white needle core biopsies. Sections/Proce ssing: Entirely submitted in 1 cassette labeled A1. Ischemic time: 2 minutes Total fixation time in formalin: 13 hours 34 minutes The ASCO/CAP guideline related to formalin fixation time has been met (6-72 hours). The ASCO/CAP guideline related to cold ischemic time has been met (<1 hour). sns 05/09/2024 11:03 AM EDT [facility] Result Note THIS RESULT REQUIRES PHYSICIAN/KINGS FOLLOW UP(A) 05/09/2024 11:03 AM EDT [facility] Tissue LEFT BREAST STRUCTURE / Unknown 05/08/2024 9:24 AM EDT 05/08/2024 12:40 PM EDT Daily Amaral MD PATHOLOGY/CYTOLOG Y ORDERABLES [facility] [place] [address] * Mammo US Axilla Left (05/08/2024 8:30 AM EDT) WORKSTATION ID [email or web address] 2 RAD Anatomical Region Laterality Modality Breast Left Mammography Impressions 05/08/2024 1:09 PM EDT 1. ??RIGHT BREAST: Two probably benign findings by ultrasound in the inner right breast, which represent possible correlates for the findings on recent MRI. 2. ??LEFT AXILLA: Multiple abnormal level 1 lymph nodes. RECOMMENDATION: RIGHT BREAST: Short interval follow-up ultrasound in 6 months recommended and discussed with the patient. LEFT BREAST: Axillary lymph node biopsy. FINAL ASSESSMENT: Right breast: BI-RADS Category 3: Probably Benign Finding- Short interval follow-up Left breast: BI-RADS Category 4c: Suspicious Finding - Biopsy Should Be Considered. ??High suspicion of malignancy (more than 50% but no more than 95%) I have personally reviewed the image(s) and the resident's interpretation and agree with the findings, Olive Garcia at 05/08/2024 1:09 PM Thank you for letting us participate in the care of this patient. ??If you are a health care provider and have any questions regarding this report, please contact the number below. ??For patients who have questions please contact the health resident care associate that requested your imaging first. ? Narrative 05/08/2024 1:09 PM EDT EXAMINATION: US BREAST LIMITED RIGHT, MAMMO US AXILLA LEFT CLINICAL HISTORY: abnormal finding MRI MRI identified 0.8 cm circumscribed mass with T2 hyperintensity in the lower inner quadrant of the right breast COMPARISONS: Breast MRI 04/09/2024 AREA SCANNED: * ??Right breast Lower inner quadrant * ??Left axilla FINDINGS: RIGHT BREAST: 2 separate sites of possible correlate for the MRI finding are identified in the medial right breast, 3:00 radian, 4 and 6 cm from the nipple. 4 cm from the nipple demonstrates a 0.6 cm oval, parallel, hypoechoic was a circumscribed mass with no significant posterior features. At 6 cm from the nipple there is a 0.7 cm oval, parallel, hypoechoic mostly circumscribed mass. Both of these findings have a probably benign appearance on ultrasound. Right Breast Lesion # 1: 3:00 radian, 4 cm the nipple measuring 0.6 cm Right Breast Lesion # 2: 3:00 radian, 6 cm from the nipple measuring 0.7 cm LEFT AXILLA: At least 5-6 abnormal left level 1 axillary lymph nodes are identified with cortical thickness measuring up to 0.6 cm. One of these abnormal lymph nodes was subsequently targeted for biopsy performed same day. Dorota Anderson MD IMG MAMMO ORDERABLES * US Breast Limited Right (05/08/2024 8:15 AM EDT) WORKSTATION ID [email or web address] 2 DH RAD Anatomical Region Laterality Modality Breast Right Mammography Impressions 05/08/2024 1:09 PM EDT 1. ??RIGHT BREAST: Two probably benign findings by ultrasound in the inner right breast, which represent possible correlates for the findings on recent MRI. 2. ??LEFT AXILLA: Multiple abnormal level 1 lymph nodes. RECOMMENDATION: RIGHT BREAST: Short interval follow-up ultrasound in 6 months recommended and discussed with the patient. LEFT BREAST: Axillary lymph node biopsy. FINAL ASSESSMENT: Right breast: BI-RADS Category 3: Probably Benign Finding- Short interval follow-up Left breast: BI-RADS Category 4c: Suspicious Finding - Biopsy Should Be Considered. ??High suspicion of malignancy (more than 50% but no more than 95%) I have personally reviewed the image(s) and the resident's interpretation and agree with the findings, Olive Garcia at 05/08/2024 1:09 PM Thank you for letting us participate in the care of this patient. ??If you are a health care provider and have any questions regarding this report, please contact the number below. ??For patients who have questions please contact the health resident care associate that requested your imaging first. ? Narrative 05/08/2024 1:09 PM EDT EXAMINATION: US BREAST LIMITED RIGHT, MAMMO US AXILLA LEFT CLINICAL HISTORY: abnormal finding MRI MRI identified 0.8 cm circumscribed mass with T2 hyperintensity in the lower inner quadrant of the right breast COMPARISONS: Breast MRI 04/09/2024 AREA SCANNED: * ??Right breast Lower inner quadrant * ??Left axilla FINDINGS: RIGHT BREAST: 2 separate sites of possible correlate for the MRI finding are identified in the medial right breast, 3:00 radian, 4 and 6 cm from the nipple. 4 cm from the nipple demonstrates a 0.6 cm oval, parallel, hypoechoic was a circumscribed mass with no significant posterior features. At 6 cm from the nipple there is a 0.7 cm oval, parallel, hypoechoic mostly circumscribed mass. Both of these findings have a probably benign appearance on ultrasound. Right Breast Lesion # 1: 3:00 radian, 4 cm the nipple measuring 0.6 cm Right Breast Lesion # 2: 3:00 radian, 6 cm from the nipple measuring 0.7 cm LEFT AXILLA: At least 5-6 abnormal left level 1 axillary lymph nodes are identified with cortical thickness measuring up to 0.6 cm. One of these abnormal lymph nodes was subsequently targeted for biopsy performed same day. Dorota Anderson MD IMG MAMMO ORDERABLES * IR Mediport Placement (05/05/2024 3:09 PM EDT) Anatomical Region Laterality Modality X-Ray Angiograph y Narrative 05/06/2024 2:30 PM EDT Interventional Radiology Procedure Note Procedure: Subcutaneous venous port implant Indication: Breast cancer, durable mcfp central venous access for chemotherapy Procedure summary: 1.) Venous access with ultrasound guidance 2.) Tunneled port insertion under fluoroscopic guidance Pre-procedure: Informed consent for the procedure including risks, benefits, and alternatives was obtained. Active time-out was performed prior to the procedure. The site was prepared and draped. Maximal sterile barrier technique was used throughout the procedure. Sedation: The patient received split doses of intravenous ??midazolam and fentanyl from the interventional radiology nurse while pulse, pressure, and oxygen saturation were continuously monitored. Technique: The right internal jugular vein was sonographically evaluated and determined to be patent. A permanent image was stored. Local anesthetic was administered. The vein was accessed via real-time ultrasound and micropuncture set with 21 gauge needle. A 0.018 wire was advanced into superior vena cava. The remainder of the procedure was performed under fluoroscopic guidance. A 4 Fr introducer sheath was placed and the wire exchanged for a 0.035 J wire. The wire was advanced into the inferior vena cava. Local anesthetic was administered on the anterior chest wall inferolateral to the puncture site. A 2 cm transverse incision was made in the right anterior chest wall, and with blunt dissection the port pocket was created. A trocar was then used to advance the catheter subcutaneously to the venous access site. A 4 Fr introducer sheath was exchanged for a peel-away sheath over the wire. The wire and inner obturator were removed and the catheter advanced into the superior vena cava under fluoroscopic guidance. The catheter was trimmed to the appropriate length and attached to the port. The port was inserted into the pocket and the sheath was removed. Catheter tip location was identified and a permanent image was stored. The port flushed and aspirated well. ??The pocket was closed using a two-layer technique with 2-0 vicryl deep interrupted and 4-0 vicryl running sutures. The skin closed was with dermabond. The port was not left accessed. Medications: Lidocaine 1% <10 cc subcutaneous, lidocaine 1% with epinephrine <20 cc subcutaneous, fentanyl 225 mcg IV, midazolam 4 mg IV Contrast: None Fluoroscopy: 36 seconds Estimated blood loss: 2 mL Complications: No immediate Impression Patent, compressible right internal jugular vein by ultrasound evaluation. Implantation of power-injectable, Bard Vas-Cath 8 F single-lumen port in right chest with tip in the superior cavoatrial junction. The port may be used immediately. Associate provider: Debra Tamayo PA-C I was present during the inter-service time as documented by the interventional radiology nurse. I supervised the physician trainee perform the entire procedure without the presence of an attending radiologist. Resident (buckshot swage operator): Jossy Velasco MD Attending: Patricio Christy MD Not present for the procedure. 05/05/2024 Dallin Zuñiga Boom MEDICAL LIAISON IMG IR ORDERABLES * ECHO COMPLETE (05/05/2024 12:09 PM EDT) EF 59 HEARTLAB SYSTEM Anatomical Region Laterality Modality Cardiac Other 05/05/2024 11:2 2 AM EDT Narrative 05/05/2024 1:06 PM EDT [address] [place] [address] ? Echocardiogram Report Name: MARTHA ESTRADA ?Study Date: 05/05/2024 11:22 AMBP: 127/82 mmHg : 1965 ? Height: 164 cm ? Account: [id number] Age: 59 yrs ? Weight: 82 kg Gender: Female ?BSA: 1.9 m2 Ordering Physician: DALLIN FALCON Referring Physician: DALLIN FALCON Performed By: NATALIIA Haque Reason For Study: Malignant neoplasm of lower-outer quadrant of left breast of female Exam Location: [facility]. Interpretation Summary 1. Mildly increased left ventricual wall thickness normal chamber size and systolic function. The left ventricular ejection fraction is 59% by 3D. Maximal longitudinal strain was seen in 3 chamber view -16.4%. Suboptimal speckle tracking in other views. 2. Normal right ventriclar size and systolic function. The peak right ventricular systolic pressure is 22.7 mmHg. 3. Mild tricuspid regurgitation. No prior study for comparison. Procedure Complete-[id number]. Satisfactory quality. There is normal sinus rhythm. Left Ventricle Left ventricle is of normal size. Mildly increased thickness of the basal septum with no obstruction to LV outflow. There is no ventricular septal defect. Left ventricular systolic function is normal. The left ventricular ejection fraction is 59% by 3D volumetric assessment. There are no segmental wall motion abnormalities. Right Ventricle The right ventricle is of normal size. Right ventricular systolic function is mildly decreased. Left Atrium The left atrium is normal. There is no evidence for a patent foramen ovale. Right Atrium The right atrium is normal. Aortic Valve The aortic valve is tricuspid. There is no aortic stenosis. There is no aortic regurgitation. Mitral Valve The mitral valve is structurally normal. There is no mitral stenosis. There is trace mitral regurgitation. Tricuspid Valve The tricuspid valve is structurally normal. There is no tricuspid stenosis. There is mild tricuspid regurgitation. Pulmonic Valve The pulmonic valve appears to be structurally normal. There is no valvular pulmonic stenosis. There is no pulmonic valve regurgitation. Great Arteries The diameter at the level of the sinuses of Valsalva is 2.8 cm. The maximum diameter of the proximal ascending aorta is 2.9 cm. No abnormalities of the pulmonary artery are identified. Venous Inferior vena cava is normal in size. Inferior vena cava collapse greater than 50% with respiration. Pericardium/Pleural There is no pericardial effusion. Hemodynamics The peak right ventricular systolic pressure is 22.7 mmHg . The estimated right atrial pressure is 3mmHg. Left ventricular filling pressure is normal. There is Grade I LV diastolic dysfunction (abnormal relaxation with normal left ventricular filling pressure). Ejection Fraction ?2D Measurements ? Volumes 4D EF: 59.1 % ? IVSd: 1.2 cm ? LAV(MOD- bp) Indexed: ?LVIDd: 3.8 cm ?LVPWd: 1.0 cm ?22.1 ml/m2 ?RWT: 0.53 {ratio} ?RA A4Cs_phl: 11.6 cm2 ? 3D ESV: 34.8 ml ?LV mass(C)d: 135.6 grams ? 3D EDV: 85.1 ml ?LV mass(C)dI: 71.9 grams/m2 ?Ao root diam: 2.8 cm ? 3DEDV Indexed: 45.1 ml/m2 ?Ao root diam index: 1.5 ?3DESV Indexed: 18.5 ml/m2 ?asc Aorta Diam: 2.9 cm ? SV(LVOT): 30.6 ml ?LVOT diam: 1.4 cm ?TAPSE_phl: 1.5 cm ?SI(LVOT): 16.2 ml/m2 Doppler ?3D/Strain/TomTec LV V1 VTI: 18.6 cm ?LV GLS (S3P): -12.0 % MV E max chester: 57.6 cm/sec MV A max chester: 108.6 cm/sec MV E/A: 0.53 MV dec time: 0.17 sec Lat Peak E' Chester: 5.2 cm/sec E/e' (lat): 11.0 Med Peak E' Chester: 4.1 cm/sec E/e' (med): 14.0 E/e' Average: 12.5 TR max chester: 221.8 cm/sec RVSP(TR): 22.7 mmHg I ?WMSI = 1.00 ? % Normal = 100 ?Segments ??Size X - Cannot ?2 - ?4 - ?1-2 ? small Interpret ?1 - Normal ?? Hypokinetic 3 - Akinetic Dyskinetic ?? 3-5 ? moderate 5 - ? 6-14 ?large Aneurysmal ?15-16 ?? diffuse Procedure Note Chantel Villavicencio MD - 05/05/[address] [place] [address] Echocardiogram Report Name: MARTHA ESTRADA Study Date: :22 AMBP: 127/82 mmHg : 1965 Height: 164 cm Account: [id number] Age: 59 yrs Weight: 82 kg Gender: Female BSA: 1.9 m2 Ordering Physician: DALLIN FALCON Referring Physician: DALLIN FALCON Performed By: NATALIIA Haque Reason For Study: Malignant neoplasm of lower-outer quadrant of leftbreast of female Exam Location: [facility]. Interpretation Summary 1. Mildly increased left ventricual wall thickness normal chamber sizeand systolic function. The left ventricular ejection fraction is 59% by 3D.Maximal longitudinal strain was seen in 3 chamber view -16.4%. Suboptimal speckletracking in other views. 2. Normal right ventriclar size and systolic function. The peak rightventricular systolic pressure is 22.7 mmHg. 3. Mild tricuspid regurgitation. No prior study for comparison. Procedure Complete-[id number]. Satisfactory quality. There is normal sinus rhythm. Left Ventricle Left ventricle is of normal size. Mildly increased thickness of the basalseptum with no obstruction to LV outflow. There is no ventricular septal defect.Left ventricular systolic function is normal. The left ventricular ejectionfraction is 59% by 3D volumetric assessment. There are no segmental wall motionabnormalities. Right Ventricle The right ventricle is of normal size. Right ventricular systolic functionis mildly decreased. Left Atrium The left atrium is normal. There is no evidence for a patent foramenovale. Right Atrium The right atrium is normal. Aortic Valve The aortic valve is tricuspid. There is no aortic stenosis. There is noaortic regurgitation. Mitral Valve The mitral valve is structurally normal. There is no mitral stenosis.There is trace mitral regurgitation. Tricuspid Valve The tricuspid valve is structurally normal. There is no tricuspidstenosis. There is mild tricuspid regurgitation. Pulmonic Valve The pulmonic valve appears to be structurally normal. There is novalvular pulmonic stenosis. There is no pulmonic valve regurgitation. Great Arteries The diameter at the level of the sinuses of Valsalva is 2.8 cm. Themaximum diameter of the proximal ascending aorta is 2.9 cm. No abnormalities ofthe pulmonary artery are identified. Venous Inferior vena cava is normal in size. Inferior vena cava collapse greaterthan 50% with respiration. Pericardium/Pleural There is no pericardial effusion. Hemodynamics The peak right ventricular systolic pressure is 22.7 mmHg . The estimatedright atrial pressure is 3mmHg. Left ventricular filling pressure is normal.There is Grade I LV diastolic dysfunction (abnormal relaxation with normal leftventricular filling pressure). Ejection Fraction 2D Measurements Volumes 4D EF: 59.1 % IVSd: 1.2 cm LAV(MOD-bp)Indexed: LVIDd: 3.8 cm LVPWd: 1.0 cm 22.1 ml/m2 RWT: 0.53 {ratio} RA A4Cs_phl: 11.6cm2 3D ESV: 34.8 ml LV mass(C)d: 135.6 grams 3D EDV: 85.1 ml LV mass(C)dI: 71.9 grams/m2 Ao root diam: 2.8 cm 3DEDV Indexed:45.1 ml/m2 Ao root diam index: 1.5 3DESV Indexed:18.5 ml/m2 asc Aorta Diam: 2.9 cm SV(LVOT): 30.6ml LVOT diam: 1.4 cm TAPSE_phl: 1.5 cm SI(LVOT): 16.2ml/m2 Doppler 3D/Strain/TomTec LV V1 VTI: 18.6 cm LV GLS (S3P): -12.0 % MV E max chester: 57.6 cm/sec MV A max chester: 108.6 cm/sec MV E/A: 0.53 MV dec time: 0.17 sec Lat Peak E' Chester: 5.2 cm/sec E/e' (lat): 11.0 Med Peak E' Chester: 4.1 cm/sec E/e' (med): 14.0 E/e' Average: 12.5 TR max chester: 221.8 cm/sec RVSP(TR): 22.7 mmHg I WMSI = 1.00 % Normal = 100 SegmentsSize X - Cannot 2 - 4 - 1-2small Interpret 1 - Normal Hypokinetic 3 - Akinetic Dyskinetic 3-5moderate 5 - 6-14large Aneurysmal 15-16diffuse Dallin Zuñiga Boom MEDICAL LIAISON ECHO ORDERABLES * NM Bone Scan Whole Body (04/29/2024 10:53 AM EDT) WORKSTATION ID [id number] RAD Anatomical Region Laterality Modality Nuclear Medicine Impressions 04/29/2024 11:33 AM EDT No skeletal metastasis. I have personally reviewed the image(s) and the resident's interpretation and agree with the findings, Jay Loyola MD at 04/29/2024 11:33 AM Thank you for letting us participate in the care of this patient. ??If you are a health care provider and have any questions regarding this report, please contact the number below. ??For patients who have questions please contact the health resident care associate that requested your imaging first. ? Narrative 04/29/2024 11:33 AM EDT EXAMINATION: NM BONE SCAN WHOLE BODY CLINICAL HISTORY: 59F with left locally advanced breast cancer - staging, rule out bone mets C50.912, Malignant neoplasm of unspecified site of left female breast - Z17.0, Estrogen receptor positive status (ER+) TECHNIQUE: Three hours following the intravenous administration of 25.2 mCi of technetium-99m MDP, planar images of the skeleton in anterior and posterior projection were obtained. COMPARISON: CT chest abdomen pelvis 04/25/2024. FINDINGS: No abnormal activity is seen. Normal activity is present in the kidneys and urinary bladder. Procedure Note Jay Loyola MD - 04/29/2024 EXAMINATION: NM BONE SCAN WHOLE BODY CLINICAL HISTORY: 59F with left locally advanced breast cancer - staging,rule out bone mets C50.912, Malignant neoplasm of unspecified site of left female breast -Z17.0, Estrogen receptor positive status (ER+) TECHNIQUE: Three hours following the intravenous administration of 25.2mCi of technetium-99m MDP, planar images of the skeleton in anterior andposterior projection were obtained. COMPARISON: CT chest abdomen pelvis 04/25/2024. FINDINGS: No abnormal activity is seen. Normal activity is present in the kidneys and urinary bladder. IMPRESSION No skeletal metastasis. I have personally reviewed the image(s) and the resident's interpretationand agree with the findings, Jay Loyola MD at 04/29/2024 11:33 AM Thank you for letting us participate in the care of this patient. If youare a health care provider and have any questions regarding this report,please contact the number below. For patients who have questions please contactthe health resident care associate that requested your imaging first. Daily Amaral MD [facility] [place] ORDERABLES * CT Chest Abdomen Pelvis w Contrast (Generic) (04/25/2024 1:50 PM EDT) WORKSTATION ID [id number] RAD Anatomical Region Laterality Modality Abdomen, Pelvis Computed Tomogra phy Impressions 04/28/2024 10:09 AM EDT 1. ??Left breast known malignancy and subcentimeter right breast mass as seen by MRI. 2. ??Left axillary lymphadenopathy highly suspicious for joel metastases. 3. ??Asymmetric borderline enlarged left retroclavicular lymph nodes may also be metastatic. Thank you for letting us participate in the care of this patient. ??If you are a health care provider and have any questions regarding this report, please contact the number below. ??For patients who have questions please contact the health resident care associate that requested your imaging first. ? Electronically signed by: ANAMARIA VELAZQUEZ MD, [facility] ([phone]), at 04/28/2024 10:09 AM Narrative 04/28/2024 10:09 AM EDT EXAMINATION: CT CHEST ABDOMEN PELVIS W CONTRAST (GENERIC) CLINICAL HISTORY: 59F with locally advanced left breast cancer - staging C50.912, Malignant neoplasm of unspecified site of left female breast - Z17.0, Estrogen receptor positive status (ER+) TECHNIQUE: Helical CT of the chest, abdomen, and pelvis following the intravenous administration of contrast. Administered 106.0 ml of OMNIPAQUE 350.00 mg/ml. Oral contrast was administered. COMPARISON: CT 02/14/2013. MRI breast 04/09/2024. FINDINGS: Chest: Lungs and large airways: A few calcified granulomas are present. No suspicious pulmonary nodule. The central airways are patent. Pleura: No effusion. Heart/vasculature: The heart is normal in size. Trace mitral annular calcification. No pericardial effusion. Nonaneurysmal thoracic aorta and normal caliber main pulmonary artery. Normal variant two-vessel aortic arch. Lymph nodes: Rounded and enlarged left axillary lymph nodes. Additional asymmetrically prominent left retroclavicular 1 cm nodes. No mediastinal or hilar lymphadenopathy. No internal mammary lymphadenopathy. Mediastinum and aislinn: Normal. Chest wall: Left spiculated breast mass with biopsy clip. Additional subcentimeter right breast mass is seen by MRI. Abdomen/pelvis: Liver: Normal size and attenuation without lesions. Bile ducts: Nondilated. Gallbladder: No calcified gallstones. Normal caliber wall. Pancreas: Normal attenuation without ductal dilatation. Spleen: Normal. Adrenals: Normal. Kidneys: Symmetric enhancement. No hydronephrosis. Urinary Bladder: Normal. Vasculature: No abdominal aortic aneurysm. Patent portal vein. Lymph Nodes: No enlarged lymph nodes. Bowel: Nondilated small and large bowel. Diverticulosis coli. No wall thickening. Peritoneum and retroperitoneum: No free fluid or loculated fluid collection. No pneumoperitoneum. No mesenteric inflammation. Abdominal wall: Normal. Reproductive organs: Normal. Osseous structures: No suspicious lesions. Procedure Note Anamaria Velazquez MD - 04/28/2024 EXAMINATION: CT CHEST ABDOMEN PELVIS W CONTRAST (GENERIC) CLINICAL HISTORY: 59F with locally advanced left breast cancer - staging C50.912, Malignant neoplasm of unspecified site of left female breast -Z17.0, Estrogen receptor positive status (ER+) TECHNIQUE: Helical CT of the chest, abdomen, and pelvis following the intravenous administration of contrast. Administered 106.0 ml ofOMNIPAQUE 350.00 mg/ml. Oral contrast was administered. COMPARISON: CT 02/14/2013. MRI breast 04/09/2024. FINDINGS: Chest: Lungs and large airways: A few calcified granulomas are present. Nosuspicious pulmonary nodule. The central airways are patent. Pleura: No effusion. Heart/vasculature: The heart is normal in size. Trace mitral annular calcification. No pericardial effusion. Nonaneurysmal thoracic aorta andnormal caliber main pulmonary artery. Normal variant two-vessel aortic arch. Lymph nodes: Rounded and enlarged left axillary lymph nodes. Additional asymmetrically prominent left retroclavicular 1 cm nodes. No mediastinalor hilar lymphadenopathy. No internal mammary lymphadenopathy. Mediastinum and aislinn: Normal. Chest wall: Left spiculated breast mass with biopsy clip. Additional subcentimeter right breast mass is seen by MRI. Abdomen/pelvis: Liver: Normal size and attenuation without lesions. Bile ducts: Nondilated. Gallbladder: No calcified gallstones. Normal caliber wall. Pancreas: Normal attenuation without ductal dilatation. Spleen: Normal. Adrenals: Normal. Kidneys: Symmetric enhancement. No hydronephrosis. Urinary Bladder: Normal. Vasculature: No abdominal aortic aneurysm. Patent portal vein. Lymph Nodes: No enlarged lymph nodes. Bowel: Nondilated small and large bowel. Diverticulosis coli. No wall thickening. Peritoneum and retroperitoneum: No free fluid or loculated fluidcollection. No pneumoperitoneum. No mesenteric inflammation. Abdominal wall: Normal. Reproductive organs: Normal. Osseous structures: No suspicious lesions. IMPRESSION 1. Left breast known malignancy and subcentimeter right breast mass asseen by MRI. 2. Left axillary lymphadenopathy highly suspicious for nodalmetastases. 3. Asymmetric borderline enlarged left retroclavicular lymph nodes mayalso be metastatic. Thank you for letting us participate in the care of this patient. If youare a health care provider and have any questions regarding this report,please contact the number below. For patients who have questions please contactthe health resident care associate that requested your imaging first. Daily Amaral MD IMG CT ORDERABLES * MRI Additional Views - Breast (04/09/2024 2:20 PM EDT) WORKSTATION ID [id number] RAD Anatomical Region Laterality Modality Breast Magnetic Resonan ce Impressions 04/10/2024 12:28 PM EDT 1. ??Biopsy-proven malignancy (lesion #1) corresponds to 4.0 cm spiculated mass in the lower inner quadrant. Biopsy marker artifact is present anteriorly within the mass. 2. ??Separate left breast spiculated mass measuring 2.5 cm in the central upper breast, which is located 1.5 cm superiorly and 0.8 cm medially to the biopsy-proven malignancy (lesion #2). 3. ??Extensive regional nonmass enhancement concerning for malignancy with total extent measuring 7.6 x 5.4 x 6.5 cm and involving the nipple. The measurements for nonmass enhancement includes the biopsy-proven malignancy (lesion #1) and the separate superior-medial spiculated mass (lesion #2). 4. ??At least 4 morphologically abnormal left axillary lymph nodes at the level 1 and 2 joel stations. Please note that the entire left axilla was not included within the examination. 5. ??Right lower inner quadrant, middle third, 0.8 cm oval mass which demonstrates T2 hyperintensity, for which MRI directed ultrasound recommended. If this lesion is not seen by ultrasound, MRI guided biopsy recommended. 6. ??No right axillary or internal mammary adenopathy. RECOMMENDATION: * ??Definitive surgical/oncologic management of known left breast malignancy. There is nipple involvement as well as foci of enhancement within the far posterior central left breast. * ??If breast conservation therapy is being considered, MRI guided biopsy of left breast lesion #2 recommended. * ??Morphologically abnormal left axillary lymph nodes. Diagnostic ultrasound and ultrasound-guided biopsy can be performed, if clinically appropriate. * ??MRI directed ultrasound of right breast lower inner quadrant mass. If this mass is not seen by ultrasound, MRI guided biopsy recommended. FINAL ASSESSMENT: LEFT BREAST: BI-RADS Category 6: Known Biopsy-Proven Malignancy RIGHT BREAST: BI-RADS Category 4b: Suspicious Finding - Biopsy Should Be Considered. ??Moderate suspicion of malignancy (more than 10% but no more than 50%) I have personally reviewed the image(s) and the resident's interpretation and agree with the findings, Olive Garcia at 04/10/2024 12:28 PM Thank you for letting us participate in the care of this patient. ??If you are a health care provider and have any questions regarding this report, please contact the number below. ??For patients who have questions please contact the health resident care associate that requested your imaging first. ? Narrative 04/10/2024 12:28 PM EDT EXAMINATION: MRI ADDITIONAL VIEW - BREAST CLINICAL INDICATION: new breast cancer - repeat imaging. Left breast ILC, ER-positive ME positive and HER-2 negative TECHNIQUE: Multiplanar sequences were obtained pre- and post- Dotarem enhancement, to include SPGR weighted dynamic run-off and subtraction sequences obtained after the intravenous administration of 16 ccs of Dotarem. Computer algorithm analysis for lesion detection and kinetic contrast enhancement curve analysis was performed, using [employer] software. COMPARISON STUDIES: Compared and/or correlated with prior studies including bilateral breast MRI 04/08/2024, ultrasound-guided biopsy 04/02/2024, diagnostic mammogram and ultrasound 03/06/2024. FINDINGS: Background Enhancement Pattern (first post Dotarem image): Mild (25-50% breast) Amount of Fibroglandular Tissue: There are scattered areas of fibroglandular density. LEFT Breast: The biopsy proven malignancy corresponds to a 3.5 cm anterior posterior by 3.1 cm transverse by 4.0 cm spiculated mass with washout kinetics in the lower outer quadrant, middle third (lesion #1; postcontrast axial image 50 and 53, and sagittal image 45). Biopsy marker artifact is present anteriorly within the mass. Within the upper central left breast, 12:00 radian, 1 cm above the nipple there is an additional spiculated mass measuring approximately 2.5 cm transverse by 1.5 cm craniocaudal by 2.0 cm anterior posterior (postcontrast axial image 73 and sagittal image 58) (lesion #2). There is adjacent regional clumped nonmass enhancement including and extending medially and anteriorly from the spiculated mass to involve the nipple, which is inverted. The overall area of abnormal enhancement including the spiculated mass measures 7.6 cm anterior posterior by 5.4 cm transverse by 6.5 cm craniocaudal (lesion #1; postcontrast axial images 36-84). LEFT BREAST LESION #1: ??2.5 x 3.1 x 4.0 cm Mass Upper central ??12 O'Clock 1 cm above the nipple by MRI. Mass/post surgical change: Shape: Irregular Margins: Not circumscribed - Spiculated Enhancement: Heterogeneous Kinetics: Initial upslope: Fast Delayed phase: Washout LEFT BREAST LESION #2: ??2.5 x 1.5 x 2.0 cm Mass - located 1.5 cm superiorly and 0.8 cm medially from the biopsy-proven malignancy. Upper central ??12 O'Clock 1 cm above the nipple by MRI. Mass/post surgical change: Shape: Irregular Margins: Not circumscribed - Spiculated Enhancement: Heterogeneous Kinetics: Initial upslope: Fast Delayed phase: Washout LEFT BREAST LESION #3: ??7.6 cm x 5.4 cm x 6.5 cm cm clumped nonmass enhancement - measurements include spiculated masses lesion #1 and #2 and adjacent clumped regional nonmass enhancement. Retroareolar region involving the nipple and extending posterior laterally into the posterior third of the breast tissue RIGHT Breast: In the lower inner quadrant of the right breast, middle third, there is a 0.8 cm circumscribed oval mass that is T2 hyperintense with washout kinetics (postcontrast axial image 38 and sagittal image 149). RIGHT BREAST LESION #1: ??0.8 cm Mass Lower inner quadrant ??3:30 O'Clock 2.2 cm medial from the nipple and 0.2 cm below the nipple by MRI. Mass/post surgical change: Shape: Oval/lobulated ??Margins: Circumscribed Enhancement: Homogenous Kinetics: Initial upslope: Fast Delayed phase: Washout Lymph Node Basins/Other: There are at least 4 morphologically abnormal left axillary lymph nodes at the level 1 and level 2 joel stations (postcontrast axial image 88-106). There are 2 foci of enhancement within the far posterior left breast/axillary tail (postcontrast axial image 69 and sagittal image 50 as well as postcontrast axial image 103 and sagittal image 42). These may represent far posterior intramammary or low axillary lymph nodes. Please note that the entire left axilla was not included within the examination. There is nipple involvement on the left. No pectoralis or chest wall involvement. Procedure Note Olive Garcia MD - 04/10/2024 EXAMINATION: MRI ADDITIONAL VIEW - BREAST CLINICAL INDICATION: new breast cancer - repeat imaging. Left breastILC, ER-positive ME positive and HER-2 negative TECHNIQUE: Multiplanar sequences were obtained pre- and post- Dotarem enhancement,to include SPGR weighted dynamic run-off and subtraction sequences obtainedafter the intravenous administration of 16 ccs of Dotarem. Computer algorithmanalysis for lesion detection and kinetic contrast enhancement curve analysis was performed, using [employer] software. COMPARISON STUDIES: Compared and/or correlated with prior studies including bilateral breastMRI 04/08/2024, ultrasound-guided biopsy 04/02/2024, diagnostic mammogram and ultrasound 03/06/2024. FINDINGS: Background Enhancement Pattern (first post Dotarem image): Mild (25-50%breast) Amount of Fibroglandular Tissue: There are scattered areas offibroglandular density. LEFT Breast: The biopsy proven malignancy corresponds to a 3.5 cmanterior posterior by 3.1 cm transverse by 4.0 cm spiculated mass with washoutkinetics in the lower outer quadrant, middle third (lesion #1; postcontrast axialimage 50 and 53, and sagittal image 45). Biopsy marker artifact is presentanteriorly within the mass. Within the upper central left breast, 12:00 radian, 1 cm above the nipplethere is an additional spiculated mass measuring approximately 2.5 cm transverseby 1.5 cm craniocaudal by 2.0 cm anterior posterior (postcontrast axial image73 and sagittal image 58) (lesion #2). There is adjacent regional clumped nonmass enhancement including andextending medially and anteriorly from the spiculated mass to involve the nipple,which is inverted. The overall area of abnormal enhancement including thespiculated mass measures 7.6 cm anterior posterior by 5.4 cm transverse by 6.5 cmcraniocaudal (lesion #1; postcontrast axial images 36-84). LEFT BREAST LESION #1: 2.5 x 3.1 x 4.0 cm Mass Upper central 12 O'Clock 1 cm above the nipple by MRI. Mass/post surgical change: Shape: Irregular Margins: Not circumscribed - Spiculated Enhancement: Heterogeneous Kinetics: Initial upslope: FastDelayed phase: Washout LEFT BREAST LESION #2: 2.5 x 1.5 x 2.0 cm Mass - located 1.5 cmsuperiorly and 0.8 cm medially from the biopsy-proven malignancy. Upper central 12 O'Clock 1 cm above the nipple by MRI. Mass/post surgical change: Shape: Irregular Margins: Not circumscribed - Spiculated Enhancement: Heterogeneous Kinetics: Initial upslope: FastDelayed phase: Washout LEFT BREAST LESION #3: 7.6 cm x 5.4 cm x 6.5 cm cm clumped nonmassenhancement - measurements include spiculated masses lesion #1 and #2 and adjacentclumped regional nonmass enhancement. Retroareolar region involving the nippleand extending posterior laterally into the posterior third of the breasttissue RIGHT Breast: In the lower inner quadrant of the right breast, middlethird, there is a 0.8 cm circumscribed oval mass that is T2 hyperintense withwashout kinetics (postcontrast axial image 38 and sagittal image 149). RIGHT BREAST LESION #1: 0.8 cm Mass Lower inner quadrant 3:30 O'Clock 2.2 cm medial from the nipple and 0.2cm below the nipple by MRI. Mass/post surgical change: Shape: Oval/lobulated Margins: Circumscribed Enhancement: Homogenous Kinetics: Initial upslope: Fast Delayed phase:Washout Lymph Node Basins/Other: There are at least 4 morphologically abnormalleft axillary lymph nodes at the level 1 and level 2 joel stations(postcontrast axial image 88-106). There are 2 foci of enhancement within the farposterior left breast/axillary tail (postcontrast axial image 69 and sagittal image50 as well as postcontrast axial image 103 and sagittal image 42). These mayrepresent far posterior intramammary or low axillary lymph nodes. Please note thatthe entire left axilla was not included within the examination. There isnipple involvement on the left. No pectoralis or chest wall involvement. IMPRESSION 1. Biopsy-proven malignancy (lesion #1) corresponds to 4.0 cm spiculatedmass in the lower inner quadrant. Biopsy marker artifact is present anteriorlywithin the mass. 2. Separate left breast spiculated mass measuring 2.5 cm in the centralupper breast, which is located 1.5 cm superiorly and 0.8 cm medially to the biopsy-proven malignancy (lesion #2). 3. Extensive regional nonmass enhancement concerning for malignancy withtotal extent measuring 7.6 x 5.4 x 6.5 cm and involving the nipple. Themeasurements for nonmass enhancement includes the biopsy-proven malignancy (lesion #1)and the separate superior-medial spiculated mass (lesion #2). 4. At least 4 morphologically abnormal left axillary lymph nodes at thelevel 1 and 2 joel stations. Please note that the entire left axilla was notincluded within the examination. 5. Right lower inner quadrant, middle third, 0.8 cm oval mass which demonstrates T2 hyperintensity, for which MRI directed ultrasoundrecommended. If this lesion is not seen by ultrasound, MRI guided biopsy recommended. 6. No right axillary or internal mammary adenopathy. RECOMMENDATION: * Definitive surgical/oncologic management of known left breastmalignancy. There is nipple involvement as well as foci of enhancement within thefar posterior central left breast. * If breast conservation therapy is being considered, MRI guided biopsyof left breast lesion #2 recommended. * Morphologically abnormal left axillary lymph nodes. Diagnosticultrasound and ultrasound-guided biopsy can be performed, if clinically appropriate. * MRI directed ultrasound of right breast lower inner quadrant mass. Ifthis mass is not seen by ultrasound, MRI guided biopsy recommended. FINAL ASSESSMENT: LEFT BREAST: BI-RADS Category 6: Known Biopsy-Proven Malignancy RIGHT BREAST: BI-RADS Category 4b: Suspicious Finding - Biopsy Should Be Considered. Moderate suspicion of malignancy (more than 10% but no morethan 50%) I have personally reviewed the image(s) and the resident's interpretationand agree with the findings, Olive Garcia at 04/10/2024 12:28 PM Thank you for letting us participate in the care of this patient. If youare a health care provider and have any questions regarding this report,please contact the number below. For patients who have questions please contactthe health resident care associate that requested your imaging first. Armond Amezcua MD IMG MRI ORDERABLES * MRI Breast wwo Contrast Bilat (04/08/2024 10:00 AM EDT) WORKSTATION ID [id number] RAD Anatomical Region Laterality Modality Breast Bilateral Magnetic Resonan ce Impressions 04/08/2024 4:02 PM EDT Nondiagnostic examination. The patient be contacted for additional imaging. RECOMMENDATION: Additional imaging, which was discussed with the patient's surgeon Dr. Amaral. The patient will be contacted for scheduling. FINAL ASSESSMENT: LEFT BREAST: BI-RADS Category 0: Incomplete-Need Additional Imaging Evaluation RIGHT BREAST: BI-RADS Category 0: Incomplete-Need Additional Imaging Evaluation I have personally reviewed the image(s) and the resident's interpretation and agree with the findings, Olive Garcia at 04/08/2024 4:02 PM Thank you for letting us participate in the care of this patient. ??If you are a health care provider and have any questions regarding this report, please contact the number below. ??For patients who have questions please contact the health resident care associate that requested your imaging first. ? Narrative 04/08/2024 4:02 PM EDT EXAMINATION: MRI BREAST WWO CONTRAST BILAT CLINICAL INDICATION: new breast cancer. History of left breast ILC ER/ME positive TECHNIQUE: Multiplanar sequences were obtained pre- and post- Dotarem enhancement, to include SPGR weighted dynamic run-off and subtraction sequences obtained after the intravenous administration of 18 ccs of Dotarem. Per the technologist reports the patient experienced discomfort during the exam, which was terminated early. The kinetic enhancement curve was unable to be obtained due to early termination of the exam. COMPARISON STUDIES: Compared and/or correlated with prior studies including prior mammograms dating back to 2020. FINDINGS: The exam is incomplete and significantly limited by patient motion. This is a nondiagnostic examination. The patient will be contacted for additional images. Daily Amaral MD IM MRI ORDERABLE S * Mammo Diagnostic Without Cad Left (04/02/2024 9:25 AM EDT) Pathologist [employer] WORKSTATION ID [email or web address] 1 DH RAD Anatomical Region Laterality Modality Breast Left Mammography Narrative 04/02/2024 2:48 PM EDT E EXAMINATION: MAMMO DIAGNOSTIC WITHOUT CAD LEFT CLINICAL INDICATION: Check marker placement. Ultrasound-guided left breast mass biopsy. TECHNIQUE: Cranio-caudal and lateral digital mammography of the right breast was performed to determine biopsy marker placement COMPARISON: Pre biopsy imaging. BREAST DENSITY: The breast tissue is heterogeneously dense, which may obscure small masses. FINDINGS: LEFT: The Chastity marker clip is in the expected location. ??3 o'clock, middle. ASSESSMENT: Post procedure mammogram for marker placement Preliminary report signed by: Kalie Jorgensen at 04/02/2024 9:31 AM I have personally reviewed the image(s) and the resident's interpretation and agree with the findings, Dorota Anderson MD at 04/02/2024 2:48 PM Thank you for letting us participate in the care of this patient. ??If you are a health care provider and have any questions regarding this report, please contact the number below. ??For patients who have questions please contact the health resident care associate that requested your imaging first. ? Electronically signed by: Dorota Anderson MD, [facility] ([phone]), at 04/02/2024 2:[address] PM [facility] [address] [place], [place] ??[id number] Dorota Anderson MD IMG MAMMO ORDERABLES * Mammo Us Biopsy Left (04/02/2024 9:14 AM EDT) [employer]™ WORKSTATION ID [id number] 1 RAD Anatomical Region Laterality Modality Breast Left Mammography Addenda Addendum by Dorota Anderson MD on 04/15/2024 4:08 PM EDT --------ADDENDUM #1-------- PATHOLOGIC DIAGNOSIS: - Invasive lobular carcinoma, intermediate grade (modified SBR score = 7), measuring at least 14 mm. - Lymphovascular invasion not identified. IMPRESSION: Concordant result RECOMMENDATION: Surgical consultation preceeded by breast MRI as discussed with the patient and conveyed to the Comprehensive Breast Program. Preliminary report signed by: Kalie Jorgensen at 04/04/2024 1:09 PM I have personally reviewed the image(s) and the resident's interpretation and agree with the findings, Dorota Anderson MD at 04/15/2024 4:03 PM Thank you for letting us participate in the care of this patient. ??If you are a health care provider and have any questions regarding this report, please contact the number below. ??For patients who have questions please contact the health resident care associate that requested your imaging first. ? Electronically signed by: Dorota Anderson MD, [facility] ([phone]), at 04/15/2024 4:03 PM --------ORIGINAL REPORT -------- EXAMINATION: MAMMO US BIOPSY LEFT CLINICAL HISTORY: abnormal finding 2nd read 2.4 cm Mass in the left breast 3:00 Radian 4 cm from the nipple. PROCEDURAL DETAILS: Informed consent was obtained. Sterile technique was deployed. Approximately 15 cc of 1% lidocaine used for local anesthesia. A small skin incision was made and a biopsy was performed under ultrasound guidance. 2 core biopsy specimens were obtained using a Achieve 14g device. Satisfactory sampling was obtained. A [employer] 14G marker clip was placed. Cranio-caudal and lateral digital mammography performed to determine biopsy marker placement, which was shown to be at the expected location. COMPLICATIONS: None. PROCEDURAL ATTESTATION: Resident: Kalie Jorgensen M.D. Attending: I was present with the resident for the jean-baptiste component(s) of the procedure and otherwise remained immediately available for the duration of the procedure. I attest to having personally viewed the images/test and approve the above interpretation. PATHOLOGIC DIAGNOSIS: Pending IMPRESSION: Pending result RECOMMENDATION: Pending REVIEW PATH CONFERENCE?: No Preliminary report signed by: Kalie Jorgensen at 04/02/2024 9:29 AM I have personally reviewed the image(s) and the resident's interpretation and agree with the findings, Dorota Anderson MD at 04/03/2024 4:37 PM Thank you for letting us participate in the care of this patient. ??If you are a health care provider and have any questions regarding this report, please contact the number below. ??For patients who have questions please contact the health resident care associate that requested your imaging first. ? Electronically signed by: Dorota Anderson MD, [facility] ([phone]), at 04/03/2024 4:37 PM Impressions 04/03/2024 4:37 PM EDT Pending result RECOMMENDATION: Pending REVIEW PATH CONFERENCE?: No Preliminary report signed by: Kalie Jorgensen at 04/02/2024 9:29 AM I have personally reviewed the image(s) and the resident's interpretation and agree with the findings, Dorota Anderson MD at 04/03/2024 4:37 PM Thank you for letting us participate in the care of this patient. ??If you are a health care provider and have any questions regarding this report, please contact the number below. ??For patients who have questions please contact the health resident care associate that requested your imaging first. ? Electronically signed by: Dorota Anderson MD, [facility] ([phone]), at 04/03/2024 4:[address] PM [facility] [address] [place], [place] ??[address] Narrative 04/03/2024 4:37 PM EDT EXAMINATION: MAMMO US BIOPSY LEFT CLINICAL HISTORY: abnormal finding 2nd read 2.4 cm Mass in the left breast 3:00 Radian 4 cm from the nipple. PROCEDURAL DETAILS: Informed consent was obtained. Sterile technique was deployed. Approximately 15 cc of 1% lidocaine used for local anesthesia. A small skin incision was made and a biopsy was performed under ultrasound guidance. 2 core biopsy specimens were obtained using a Achieve 14g device. Satisfactory sampling was obtained. A [employer] 14G marker clip was placed. Cranio-caudal and lateral digital mammography performed to determine biopsy marker placement, which was shown to be at the expected location. COMPLICATIONS: None. PROCEDURAL ATTESTATION: Resident: Kalie Jorgensen M.D. Attending: I was present with the resident for the jean-baptiste component(s) of the procedure and otherwise remained immediately available for the duration of the procedure. I attest to having personally viewed the images/test and approve the above interpretation. PATHOLOGIC DIAGNOSIS: Pending Dorota Anderson MD [facility] MAMMO ORDERABLES * HER-2 FISH (04/02/2024 9:12 AM EDT) Indication for Study 04/09/2024 9:17 AM [facility] Specimen Tissue Case/Block ID [id number] 04/09/2024 9:17 AM [facility] HER2 FISH Final Report Method Fluorescence in situ hybridization (FISH) with chromosome 17 centromere (17p11.1-q11.1) probe and a locus specific probe for the HER2 gene locus (17q11.2-q12). 04/09/2024 9:17 AM [facility] HER2/GEENA FISH Results Negative 04/09/2024 9:17 AM [facility] Total # signals/Total # nuclei counted for HER2 probe 321 04/09/2024 9:17 AM [facility] Total # Signals/Total # Nuclei counted for CEP-17 probe 184 04/09/2024 9:17 AM [facility] HER2 to CEP-17 Ratio (Normal Range <2.0) 1.7 04/09/2024 9:17 AM [facility] Total # Nuclei Counted 60 04/09/2024 9:17 AM [facility] Average # HER2 Signals/Cell 5.4 04/09/2024 9:17 AM [facility] HER2 FISH Interpretation Paraffin-embedded tissue sections were submitted for HER2 (ERBB2) gene amplification analysis by FISH. Direct analysis was performed using the Ulaboxion Kit. Slide adequacy and signal enumeration were evaluated and satisfactory for both control and patient slides. A signal ratio derived from the HER2 probe and the CEP-17 centromere probe of greater than or equal to 2.0 is considered positive for HER2 gene amplification. The 2013 ASCO/CAP guideline recommendation for HER2 testing in breast cancer states that samples with a HER2 to CEP-17 ratio of less than 2.0 are non-amplified. Specimens with a HER2 to CEP-17 range of greater than or equal to 2.0 are considered amplified. This test is approved by the U.S. FDA for clinical diagnostic use. Reference: Darleen GRUBBS et al. Recommendations for human epidermal growth factor receptor 2 testing in breast cancer: [place] Society of Clinical Oncology/College of [place] Pathologists clinical practice guideline update. J Clin Oncol. 2013 May 23. Darleen GRUBBS et al. Human Epidermal Growth Factor Receptor 2 Testing in Breast Cancer: [place] Society of Clinical Oncology/College of [place] Pathologists Clinical Practice Guideline Focused Update. Arch Pathol Lab Med. 2017December 19/J Clin Oncol. 2017December 19. 04/09/2024 9:17 AM EDT [facility] Sign-out by This result has been reviewed by MAGDALENA ARMSTRONG MD, on 04/09/24 at 9:17 AM. 04/09/2024 9:17 AM EDT [facility] Tissue LEFT BREAST STRUCTURE / Unknown 04/02/2024 9:12 AM EDT 04/03/2024 10:16 AM EDT Dorota Anderson MD MOLECULAR ORDERABLES [facility] [place] [address] * (ABNORMAL) U Albumin/Cre Ratio (08/06/2015) Pathologist [facility] Albumin / Creatinin Ratio, Urine 5.0(Testing Machine Operator al Lab) 0 - 29 [facility] CON[facility] Creatinine, Urine 130.2(Exte rnal Lab) [facility] Albumin, Urine 6.6(Testing Machine Operator al Lab) 0 - 20 [facility] CONVERSION 08/06/2015 Results Provider Apd Conversion URINE ORDERABLES [facility] * (ABNORMAL) Hemoglobin A1c (08/06/2015) Pathologist [facility] Estimated Average Glucose 162.8(ExtH ) 82.5 - 116.9 [facility] CON[facility] Hemoglobin A1c 7.3(ExtH) 4.5 - 6.2 [facility] CONVERSION 08/06/2015 Results Provider Apd Conversion MD GUILLERMO VINSON ORDERABLES [facility] * (ABNORMAL) Lipid Panel (08/06/2015) Cholesterol/HDL Ratio 3.3(Exter nal Lab) 3.2 - 4.4 [facility] CON[facility] VLDL 25.2(Exte rnal Lab) [facility] CON[facility] LDL Cholesterol 119(Exter nal Lab) [facility] CON[facility] HDL Cholesterol 64(ExtH) 40 - 60 ALIC E [facility] DAY CONVERSION Triglyceride 126(Exter nal Lab) 30 - 150 [facility] CONVERSION Cholesterol, Total 208(ExtH) 50 - 200 [facility] CONVERSION 08/06/2015 Results Provider Apd Conversion MD GUILLERMO VINSON ORDERABLES [facility] CONVERSION from Last 3 Months or Most Recently Relevant to Health Maintenance Advance Directives Documents on File Type Date Recorded Patient Insulation Cupola Charger Expl anation Personal Insulation Cupola Charger 04/11/2024 2:25 PM Colleeneri Foleyshaq - Daughter VERBAL ONLY Personal Insulation Cupola Charger 04/09/2024 3:40 PM Erik Estrada - Spouse VERBAL ONLY * Attempt Cardiopulmonary Resuscitation - Inpatient (Latest Code Status on File) Date Activated Date Inactivated Comments 05/05/2024 12:55 PM 05/06/2024 4:33 AM Question Answer Comments Code Status decision made by: Patient Content of discussion: full code Care Teams Supervisor Maintenance Relationship Specialty Start Date End Date Nat Nicolas, [address] [place] [address] PCP - General Family Medicine 04/02/24
--- OUTSIDE RECORDS SUMMARY | 2024-06-21 16:11 | XMS_ITS | Encounter Summary ---
Author Organization [facility] Address [address] [place] [address] Care Team Providers Care Grid Casting Machine Operator Helper Name Role Phone Terese Fischer CLINICAL PROGRAM MANAGER Primary Care Provider [phone] Encounter Details Date Type Department Care Team (Late st Contact Info) Description 01/27/2023 Lab Requisition [facility] Pathology & Laboratory Medicine - [address] [address] Outr Resulting Lab, Provider Social History Tobacco [...] Lyme Ab Negative Negative 01/29/2023 11:53 EDT [facility] Blood VENOUS BLOOD / Unknown 01/26/2023 15:55 EDT 01/27/2023 21:28 EDT us Provider Outr Resulting Lab IMMUNOLOGY AND SEROL OGY ORDERABLES Final Result [facility] [address] [place] [address] documented in this encounter Visit Diagnoses Not on filedocumented in this encounter Care Teams Grid Casting Machine Operator Helper Relationship Specialty Start Date End Date Terese Fischer NP [address] [place] [phone] PCP - General 12/19/18 documented as of this encounter
--- OUTSIDE RECORDS SUMMARY | 2024-06-21 16:11 | XMS_ITS | Encounter Summary ---
Author Organization [facility] Address [address] [place] [address] Care Team Providers Care Asbestos Hazard Abatement Worker Name Role Phone None, Provider Primary Care Provider Unavailabl e Encounter Details Date Type Department Care Team (Late st Contact Info) Description 02/12/2018 Results Only [facility] Hematology & Oncology - [facility] [address] [place] [address] [place] [address] [place] [phone] Social History Tobacco Use Types Packs/Day [...] Family Variant Testing, BRCA1 02/12/2018 15:13 EDT [facility] Result See Pathology Scanned Report in PRISM. 02/25/2018 11:06 EDT [facility] Comment:Assayed at [facility], [place], [place] Ref Lab [facility] 02/12/2018 15:13 EDT [facility] Date Sample Shipped 02/12/2018 02/12/2018 15:13 EDT [facility] TOPOGRAPHY UNKNOWN / Unknown 02/12/2018 14:51 EDT 02/12/2018 15:12 EDT us Irene Lopez MD LAB INFO SERVICE AND SUPPORT & P [place] RESULT Final Result Performing Organization Address City/State/[facility] Co de Phone Number [facility] [address] [place] [address] documented in this encounter Visit Diagnoses Not on filedocumented in this encounter Care Teams Asbestos Hazard Abatement Worker Relationship Specialty Start Date End Date None, Provider PCP - General 01/31/18 12/18/18 documented as of this encounter
--- OUTSIDE RECORDS SUMMARY | 2024-06-21 16:11 | XMS_ITS | Encounter Summary ---
Author Organization [facility] Address [address] [place] [address] Care Team Providers Care Universal Banker Name Role Phone Terese Fischer DETENTION WORKER Primary Care Provider [phone] Encounter Details Date Type Department Care Team (Late st Contact Info) Description 12/21/2020 Lab Requisition [facility] Pathology & Laboratory Medicine - [address] [address] Outr Resulting Lab, Provider Social History Tobacco [...] Unknown 12/20/2020 0:15 EDT 12/21/2020 16:10 EDT us Provider Outr Resulting Lab MICROBIOLOGY - GENER AL ORDERABLES Final Result [facility] [address] [place] [address] * COVID-19 TESTING (12/20/2020 0:15 EDT) COVID-19 rt-PCR Result Negative Negative 12/22/2020 14:54 EDT [facility] Comment: This test has [...] developed and its performance characteristics determined by [facility]. It has not been cleared or approved [...] testing. This test is based on the [facility] COVID-19 Emergency Use Authorization (EUA) assay, with minor modification as defined by the FDA Performed on the [employer] 7 Flex RT-PCR System. Performing Lab [facility] Lab 12/22/2020 14:54 EDT [facility] Swab 12/20/2020 0:15 EDT 12/21/2020 16:10 EDT us Provider Outr Resulting Lab MICROBIOLOGY - GENER AL ORDERABLES Final Result [facility] [address] [place] [address] documented in this encounter Visit Diagnoses Not on filedocumented in this encounter Care Teams Universal Banker Relationship Specialty Start Date End Date Terese Fischer, NADEEN [address] [place] [phone] PCP - General 12/19/18 documented as of this encounter
--- OUTSIDE RECORDS SUMMARY | 2024-06-21 16:11 | XMS_ITS | Referral Summary ---
Author Organization [facility] Address [address] [place] [address] Care Team Providers Care Bean Weigher Name Role Phone Aaliyah Terese Dalia LICENSING OFFICER Primary Care Provider Allergies No known active allergies Medications lisinopril (PRINIVIL, ZESTRIL) 40 mg tablet Take [...] until rash is gone 60 g 1 2 Active Additional Information Patient not taking.Reported on 12/19/2018 triamcinolone (KENALOG) 0.1 % ointment Apply and rub in well to the less itchy areas 60 g 0 2 Active Additional Information Patient not taking.Reported on [...] EST Plan of Treatment Not on [place] [id number] Care Teams Bean Weigher Relationship Specialty Start Date End Date Terese Fischer NP [address] [place] [phone] PCP - General 12/19/18
--- OUTSIDE RECORDS SUMMARY | 2024-06-21 16:11 | XMS_ITS | Encounter Summary ---
Author Organization [facility] Address [address] [place] [address] Care Team Providers Care Plastic Fixture Builder Name Role Phone Berry Chadwick MD Primary Care Provider [phone] Reason for Visit * Reason Comments Chest Pain Onset right sided ch est pain yesterday with numbness to right hand. Denies SOB/N/V. Skin pink/warm/dry. Encounter Details Date Type Department Care Team (Late st Contact Info) Description 09/19/2010 9:39 EST - 09/19/2010 11:47 EST Emergency [facility] Emergency Department - [address] [address] Rashid Alfaro MD Emergency, MD Arpan Chest [...] 09/19/2010 0:00 EST Physician Inpatient MD PROCEDURE/MINOR SURGICAL ORDERABLES Final Result * CHEST PA AND LATERAL (09/19/2010 10:44 [...] Impression: No significant abnormality Rashid Alfaro MD [facility] DIAGNOSTIC IMAGING OR DERABLES Final Result * TROPONIN I (09/19/2010 10:11 EST) Troponin I pre 2011 <0.05 <0.81 ng/ml [facility] Comment: Reference Range: Normal: ??Less than 0.05 Indeterminate: ??0.05-0.80 Positive: ?? Greater than 0.80 Blood specimen (specimen) 09/19/2010 10:11 EST 09/19/2010 10:24 EST us Rashid Alfaro MD CHEMISTRY & BLOOD GAS ORD ERABLES Final Result Performing Organization Address [facility] Co de Phone Number [facility] [address] [place] [address] * D-DIMER (09/19/2010 10:11 EST) D-Dimer <200 <230 ng/mL [facility] Comment:CUTOFF VALUE FOR THE EXCLUSION OF DVT and PE: 230 ng/mL Blood specimen (specimen) 09/19/2010 10:11 EST 09/19/2010 10:24 EST us Rashid Alfaro MD HEMATOLOGY & PF4 ORDERABL ES Final Result Performing Organization Address [facility] de Phone Number [facility] [address] [place] [address] documented in this encounter Visit Diagnoses Diagnosis Chest wall pain Painful respiration documented in this encounter Historical Medications * This list may reflect changes made after this encounter. lisinopril (PRINIVIL, ZESTRIL) 40 mg tablet Take 80 mg by mouth daily. added in this encounter Orders EKG Orders Without Results Count Last Ordered D ate First Ordered Date EKG 12-LEAD 1 09/19/2010 documented in this encounter Care Teams Plastic Fixture Builder Relationship Specialty Start Date End Date Berry Chadwick MD [address] [place] [address] PCP - General 07/26/10 01/30/18 documented as of this encounter
--- OUTSIDE RECORDS SUMMARY | 2024-06-21 16:11 | XMS_ITS | Clinical Summary ---
Author Organization [facility] Address [address] [place] [address] Care Team Providers Care Auto Accessories Installer Name Role Phone Aaliyah Terese Dalia MICROBIOLOGY LAB ASSISTANT Primary Care Provider [phone] Allergies No known active allergies Medications lisinopril [...] Last Done Comments Hepatitis C Screen 1965 COVID-19 Vaccine (2023-25 season) 2024 RSV Immunization ( o r 60+ Years) (1 - 1-dose 75+ series) 02/04/2039 [place] [id number] Care Teams Auto Accessories Installer Relationship Specialty Start Date End Date Terese Fischer NP [address] [place] [id number] PCP - General 12/19/18
--- OUTSIDE RECORDS SUMMARY | 2024-06-21 16:11 | XMS_ITS | Encounter Summary ---
Author Organization [facility] Address [address] [place] [address] Care Team Providers Care Auto Servicer Name Role Phone None, Provider Primary Care Provider Unavailabl e Encounter Details Date Type Department Care Team (Late st Contact Info) Description 11/30/2018 Results Only Imaging [facility] [phone] Unknown, Provider, MD Social History Tobacco Use [...] on filedocumented in this encounter Care Teams Auto Servicer Relationship Specialty Start Date End Date None, Provider PCP - General 01/31/18 12/18/18 documented as of this encounter
--- OUTSIDE RECORDS SUMMARY | 2024-06-21 16:11 | XMS_ITS | Encounter Summary ---
Author Organization [facility] Address [address] [place] [address] Care Team Providers Care Comic Book Artist Name Role Phone Terese Fischer REFINERY OPERATOR COKING Primary Care Provider [phone] Reason for Referral * Referral (Routine) - Closed Specialty Diagnoses / Procedures Referred By Contact Referred To Contact Physical Medicine and Rehab Diagnoses Neck pain Hand numbness Procedures EMG/NERVE CONDUCTION STUDY Daily Scott PA-C Phone: tel: fax: [facility] - [place] [address] [place] [address] Phone: tel: fax: Referral ID Status Reason Start Date Expiration Date Visits Re quested Visits Authorized [id number] Closed 12/19/2018 1 1 Reason for Visit * Reason Onset Date Comments Neck Pain 12/19/2018 Encounter Details Date Type Department Care Team (Late st Contact Info) Description 12/19/2018 Orders Only [facility] - [facility] [place] [address] Daily Scott PA-C [address] [place] [address] [place] [address] Neck pain (Primary Dx); Hand numbness [...] sensation documented in this encounter Care Teams Comic Book Artist Relationship Specialty Start Date End Date Terese Fischer NP [address] [place] [address] PCP - General 12/19/18 documented as of this encounter
--- OUTSIDE RECORDS SUMMARY | 2024-06-21 16:11 | XMS_ITS | Encounter Summary ---
Author Organization [facility] Address [address] [place] [address] Care Team Providers Care C Developer Name Role Phone Jim Chadwick MD Primary Care Provider [phone] Encounter Details Date Type Department Care Team (Late st Contact Info) Description 09/08/2010 Results Only [facility] - [facility] ([facility] [address] [place] [address] Jim Chadwick MD [address] [place] [id number] Social History Tobacco Use Types Packs/Day Years [...] Acid 5.1 2.2 - 7.7 mg/dl [facility] 09/08/2010 9:30 EST 09/08/2010 19:21 EST Jim Chadwick MD CHEMISTRY & BLOOD GAS ORDERABLE S Final Result Performing Organization Address [facility] de Phone Number [facility] [address] [place] [address] * TSH (09/08/2010 9:30 EST) Pathologist [facility] TSH 1.58 0.35 - 5.00 uIU/ml [facility] 09/08/2010 9:30 EST 09/08/2010 19:21 EST Jim Chadwick MD CHEMISTRY & BLOOD GAS ORDERABLE S Final Result Performing Organization Address [facility] de Phone Number [facility] [address] [place] [address] * LIPID PROFILE (INCLUDES CHOLESTEROL, TRIGLYCERIDES, HDL, LDL) (09/08/2010 9:30 EST) Pathologist [facility] Cholesterol 183 mg/dl [facility] Comment:Desirable:<200 Borde rline High:200-239 High:>pk=090 Triglycerides 69 35 - 160 mg/dl [facility] HDL 66 mg/dl [facility] Comment:Low:<40 High(Desirab le):>or=60 LDL, Calculated 103 mg/dl [facility] Comment: Optimal:<100 Above optimal:100-129 Borderline High:130-159 High:160-189 Very High:>bi=312 Chol/HDL Ratio 2.8 [facility] Fasting? Yes [facility] 09/08/2010 9:30 EST 09/08/2010 19:21 EST Jim Chadwick MD CHEMISTRY & BLOOD GAS ORDERABLE S Final Result Performing Organization Address City/[facility]/ZIP Co de Phone Number [facility] [address] [place] [address] * (ABNORMAL) COMPREHENSIVE METABOLIC PANEL (CMP) (09/08/2010 [...] EST Jim Chadwick MD CHEMISTRY & BLOOD GAS ORDERABLE S Final Result Performing Organization Address City/[facility]/ZIP Co de Phone Number [facility] [address] [place] [address] * HEMAGRAM (09/08/2010 9:30 EST) WBC 8.00 [...] EST Jim Chadwick MD HEMATOLOGY & PF4 ORDERABLES Fin al Result Performing Organization Address [facility] de Phone Number [facility] [address] [place] [address] * CA 125 (09/08/2010 9:30 EST) CA 125 32 0 - 35 U/ml [facility] Comment: ??Serum CA125 concentrations should not be interpreted as absolute evidence for the presence or absence of malignant disease. ?? Assayed utilizing [employer] technology. Values obtained by using different assay methods cannot be used interchangeably. 09/08/2010 9:30 EST 09/08/2010 19:21 EST Jim Chadwick MD CHEMISTRY & BLOOD GAS ORDERABLE S Final Result Performing Organization Address [facility] de Phone Number [facility] [address] [place] [address] documented in this encounter Visit Diagnoses Not on filedocumented in this encounter Care Teams C Developer Relationship Specialty Start Date End Date Jim Chadwick MD [address] [place] [address] PCP - General 07/26/10 01/30/18 documented as of this encounter
--- OUTSIDE RECORDS SUMMARY | 2024-06-21 16:11 | XMS_ITS | Encounter Summary ---
Author Organization [facility] Address [address] [place] [address] Care Team Providers Care Distribution Spec Name Role Phone Unavailable Primary Care Provider Unavailabl e Encounter Details Date Type Department Care Team (Late st Contact Info) Description 01/05/2003 14:55 EDT Hospital Encounter [facility] - Other [address] [place] [address] Ad Hwang MD [address] [place], [place] [id number] Social History Tobacco Use Types Packs/Day Years [...] ? EARL RODRIGUEZ ? Accession #: ? [id number] : ? 1965 (Age: 37) ??F ?Collect [...] End of Report [facility] 01/05/2003 01/06/2003 us Ad Hwang MD PATHOLOGY ORDERABLES Fi nal Result [facility] [address] [place] [address] documented in this encounter Visit Diagnoses Not on filedocumented in this encounter
--- OUTSIDE RECORDS SUMMARY | 2024-06-21 16:12 | XMS_ITS | Encounter Summary ---
[place] [address] Care Team Providers Care Slat Pickler Name Role Phone Nat Nicolas APRN Primary Care Provider Encounter Details Date Type Department Care Team (Latest Contact Info) Description 05/13/2024 10:30 AM EDT TH Visit (TeleHealth) Hematology [place] [address] Tamela Coats, [facility] Malignant neoplasm of lower-outer quadrant of left breast of female, estrogen receptor positive Social History Tobacco Use Types Packs/Day Years [...] as of this encounter Progress Notes * Tamela Coats, [facility] - 05/13/2024 10:30 AM EDT Oncology Clinical Pharmacist Consultation: Cycle 2, Day 1 / CINV follow-up Visit Type: Telephone Subjective: Patient ID: Martha Rodriguez is a 59 y.o. female diagnosed with breast cancer who presents today for cycle 2, day 6 of AC. Chemotherapy regimen including supportive care was reviewed during the visit with the patient. Allergies and Drug intolerance: Allergies Allergen Reactions Sulfa (Sulfonamide Antibiotics) Rash Chemotherapy Regimen includes the following agents: cyclophosphamide 600 mg/m2 IV once every 14 days doxorubicin Liposomal (Doxil) 60 mg/m2 IV once every 14 days [place] Antiemetic Regimen Aloxi (palonosetron) 0.25 mg IV once prior to chemotherapy Cinvanti (aprepitant) 130 mg IV once prior to chemotherapy Decadron (dexamethasone) 10 mg IV or PO prior to chemotherapy Home Antiemetic Regimen Compazine (prochlorperazine) 10 mg PO every 6 hours as needed for nausea Zyprexa (olanzapine) 5 mg PO nightly on days 1-4 CINV Assessment: Did you experience any nausea and/or vomiting during cycle 1? Little queasiness If yes, when did the nausea and/or vomiting occur and how long did it last? 2 days ago Did you need to utilize any PRN antinausea medications? Will try compazine Did you have any difficulty filling your antinausea medications? no Do you need any refills of any antinausea medications? no Do you believe your nausea is adequately controlled on your current regimen? yes Patient reports the following additional side effects during cycle 1: Nausea - little queasiness starting 2 days ago - but no vomiting Headache - started night of chemotherapy and has not improved. Taking tylenol and started ibuprofenyesterday, which is not helping. Endorses vision changes at night - blurry / impaired vision. Assessment and Recommendations: Martha Rodriguez is a 59 y.o. female diagnosed with breast cancer who presents today for cycle 2, day 6 of AC. She reported the following side effects during cycle 1 of therapy: The chemotherapy schedule, antiemetic regimen, and ways to manage side effects were discussed with the patient during the visit today. The following side effect mitigation and management strategies were discussed with the patient: Nausea - advised to take compazine scheduled for today and then as needed. Headache - continue to eat and stay hydrated (specifically with electrolyte containing beverages). I will contact team re: vision changes and no improvement despite taking tylenol / ibuprofen. Antiemetic Plan: Continue current regimen as above. If compazine does not help alleviate queasiness, could consider extending duration of olanzapine. Pharmacy follow up appointment: 05/26/24 Tamela Coats RPH 05/13/24 15 minutes were spent providing patient education. documented in this encounter Plan of Treatment Upcoming Encounters Date Type Department Care Team (Late st Contact Info) Description 07/02/2024 8:00 AM EST Appointment Hematology [place] [address] 07/02/2024 9:00 AM EST Office Visit Hematology [place] [address] Rosalba Patel MD [facility] [place] [address] 07/02/2024 10:30 AM EST Appointment Hematology [place] [address] 07/07/2024 10:30 AM EST TH Visit (TeleHealth) Hematology [place] [address] Hem/Onc, Clinic Pharmacist None 07/17/2024 9:00 AM EST Appointment Hematology [place] [address] 07/17/2024 10:00 AM EST Office Visit Hematology [place] [address] Rosalba Patel MD [facility] [place] [address] 07/17/2024 11:30 AM EST Appointment Hematology [place] [address] 07/30/2024 7:30 AM EST Appointment Hematology [place] [address] 07/30/2024 8:30 AM EST Office Visit Hematology and Oncology at [place] [phone] Yamileth Nur APRN [facility] [place] [address] 07/30/2024 10:00 AM EST Appointment Hematology [place] [address] 08/13/2024 8:00 AM EST Appointment Hematology [place] [address] 08/13/2024 9:00 AM EST Office Visit Hematology [place] [address] Rosalba Patel MD [facility] [place] [address] 08/13/2024 10:30 AM EST Appointment Hematology and Oncology at [place] [phone] documented as of this encounter Visit Diagnoses Diagnosis Malignant neoplasm of lower-outer quadrant of left breast of female, estrogen receptor positive documented in this encounter Care Teams Slat Pickler Relationship Specialty Start Date End Date Nat Nicolas APRN [address] [place] [address] PCP - General Family Medicine 04/02/24 documented as of this encounter
--- OUTSIDE RECORDS SUMMARY | 2024-06-21 16:12 | XMS_ITS | Encounter Summary ---
[facility] [place] [address] Care Team Providers Care Investigations Director Name Role Phone NicolasZcaNatcarlos Malloy APRN Primary Care Provider Encounter Details Date Type Department Care Team (Latest Contact Info) Description 06/04/2024 Travel Social History Tobacco Use Types Packs/Day [...] AM EST Appointment [facility] [place] [address] 07/02/2024 9:00 AM EST Office Visit Hematology [place] [address] Rosalba Patel MD [facility] [address] [place] [address] 07/02/2024 10:30 AM EST Appointment Hematology [place] [address] 07/07/2024 10:30 AM EST TH Visit (TeleHealth) Hematology [place] [address] Hem/Onc, Clinic Pharmacist None 07/17/2024 9:00 AM EST Appointment Hematology [place] [address] 07/17/2024 10:00 AM EST Office Visit Hematology [place] [address] Rosalba Patel MD [facility] [address] [place] [address] 07/17/2024 11:30 AM EST Appointment Hematology [place] [address] 07/30/2024 7:30 AM EST Appointment Hematology [place] [address] 07/30/2024 8:30 AM EST Office Visit Hematology [place] [address] Yamileth Nur APRN [facility] [address] [place] [address] 07/30/2024 10:00 AM EST Appointment Hematology [place] [address] 08/13/2024 8:00 AM EST Appointment Hematology [place] [address] 08/13/2024 9:00 AM EST Office Visit Hematology [place] [address] Rosalba Patel MD [facility] [address] [place] [address] 08/13/2024 10:30 AM EST Appointment Hematology [place] [address] documented as of this encounter Visit Diagnoses Not on filedocumented in this encounter Care Teams Investigations Director Relationship Specialty Start Date End Date Nat Nicolas, [facility] [address] [place] [address] PCP - General Family Medicine 04/02/24 documented as of this encounter
--- OUTSIDE RECORDS SUMMARY | 2024-06-21 16:12 | XMS_ITS | Encounter Summary ---
[place] [address] Care Team Providers Care Product Safety Head Name Role Phone Nat Nicolas APRN Primary Care Provider Encounter Details Date Type Department Care Team (Latest Contact Info) Description 06/04/2024 8:58 AM EST - 06/04/2024 11:59 PM [facility] Hospital Encounter Hematology [place] [address] Malignant neoplasm of lower-outer quadrant of left breast of female, estrogen receptor positive; Type 2 diabetes mellitus without complication, without long-term current use of insulin Discharge Disposition: Home Social History Tobacco Use [...] Sig Dispensed Refills Start Date End Date glipiZIDE (Glucotrol) 5 mg tablet 05/29/2024 lidocaine-prilocaine (EMLA) CreamIndications:Malign ant neoplasm of lower-outer quadrant of left breast of female, estrogen receptor positive Apply topically 60 minutes prior to accessing port. Apply a thick layer of cream to designated site of intact skin. Cover site with occlusive dressing. 30 g 1 04/30/2024 hydroCHLOROthiazide 12.5 mg tablet Take 12.5 mg by mouth. 11/16/2023 metFORMIN (FORTAMET) 500 mg Tablet Extended Rel 24 hr Take 1 tablet by mouth 2 times daily (with meals). 60 tablet 3 02/07/2022 lisinopril (PRINIVIL;ZESTRIL) 20 mg tablet Take 20 mg by mouth daily. 40MG atenolol (TENORMIN) 25 mg tablet Take 25 mg by mouth daily. prochlorperazine (Compazine) 10 mg tablet Take 1 tablet by mouth every 6 hours as needed for Nausea. 30 tablet 3 05/08/2024 OLANZapine (ZyPREXA) 5 mg tablet Take 1 tablet by mouth nightly. On nights 1-4 of chemotherapy. 16 tablet 1 05/08/2024 lisinopriL (Zestril) 20 mg Tablet Take 0.5 tablets by mouth daily. 30 tablet 02/07/2022 benzonatate (TESSALON) 100 mg Capsule Take [...] needed for Dizziness. 30 tablet 0 08/03/2013 documented as of this encounter Progress Notes * Brea Ramos RN - 06/04/2024 9:08 AM EST Patient Name: Martha Rodriguez Patient Age: 59 y.o. Birthdate: 1965 Admit date: 06/04/2024 Attending Physician: No att. providers found Access visit. See MAR and/or flowsheet. documented in this encounter Plan of Treatment Upcoming Encounters Date Type Department Care Team (Late st Contact Info) Description 07/02/2024 8:00 AM EST Appointment Hematology [place] [address] 07/02/2024 9:00 AM EST Office Visit Hematology [place] [address] Rosalba Patel MD [facility] [place] [address] 07/02/2024 10:30 AM EST Appointment Hematology [place] [address] 07/07/2024 10:30 AM EST TH Visit (TeleHealth) Hematology [place] [address] Hem/Onc, Clinic Pharmacist None 07/17/2024 9:00 AM EST Appointment Hematology [place] [address] 07/17/2024 10:00 AM EST Office Visit Hematology [place] [address] Rosalba Patel MD [facility] [place] [address] 07/17/2024 11:30 AM EST Appointment Hematology [place] [address] 07/30/2024 7:30 AM EST Appointment Hematology [place] [address] 07/30/2024 8:30 AM EST Office Visit Hematology [place] [address] Yamileth Nur APRN [facility] [place] [address] 07/30/2024 10:00 AM EST Appointment Hematology [place] [address] 08/13/2024 8:00 AM EST Appointment Hematology [place] [address] 08/13/2024 9:00 AM EST Office Visit Hematology [place] [address] Rosalba Patel MD [facility] [place] [address] 08/13/2024 10:30 AM EST Appointment Hematology [place] [address] documented as of this encounter Visit Diagnoses Diagnosis Malignant neoplasm of lower-outer quadrant of left breast of female, estrogen receptor positive Type 2 diabetes mellitus without complication, without long-term current use of insulin documented in this encounter Care Teams Product Safety Head Relationship Specialty Start Date End Date Nat Nicolas APRN [address] [place] [address] PCP - General Family Medicine 04/02/24 documented as of this encounter
--- OUTSIDE RECORDS SUMMARY | 2024-06-21 16:12 | XMS_ITS | Encounter Summary ---
[place] [address] Care Team Providers Care Sales Development Director Name Role Phone Nat Nicolas APRN Primary Care Provider Encounter Details Date Type Department Care Team (Latest Contact Info) Description 06/11/2024 2:00 PM EST TH Visit (TeleHealth) [place]ology [place] [address] Breezy Long, [facility] Malignant neoplasm of lower-outer quadrant of left breast of female, estrogen receptor positive Social History Tobacco Use Types Packs/Day Years Used Date Smoking Tobacco: Never Smokeless Tobacco: Never Alcohol Use Standard Drinks/Week Comments No 0 (1 standard drink = 0.6 oz pur e alcohol) Overall Financial Resource Strain (CARDIA) Kimberly steven Date Recorded How hard is it for [...] as of this encounter Progress Notes * Breezy Long RPH - 06/11/2024 2:00 PM EST The patient's current telephone number on file is incorrect. Martha was subsequently unable to be reached for her CINV follow up visit today. The clinic pharmacist will plan to follow up with Martha ather next infusion appointment. documented in this encounter Plan of Treatment Upcoming Encounters Date Type Department Care Team (Late st Contact Info) Description 07/02/2024 8:00 AM EST Appointment H[place] [address] 07/02/2024 9:00 AM EST Office Visit [place]ematology [place] [address] Rosalba Patel MD [facility] [place] [address] 07/02/2024 10:30 AM EST Appointment Hematology [place] [address] 07/07/2024 10:30 AM EST TH Visit (TeleHealth) Hematology [place] [address] Hem/Onc, Clinic Pharmacist None 07/17/2024 9:00 AM EST Appointment H[place] [address] 07/17/2024 10:00 AM EST Office Visit [place]ematology [place] [address] Rosalba Patel MD [facility] [place] [address] 07/17/2024 11:30 AM EST Appointment Hematology [place] [address] 07/30/2024 7:30 AM EST Appointment Hematology [place] [address] 07/30/2024 8:30 AM EST Office Visit [place]ology [place] [address] Yamileth Nur APRN [facility] [place] [address] 07/30/2024 10:00 AM EST Appointment Hematology [place] [address] 08/13/2024 8:00 AM EST Appointment Hematology [place] [address] 08/13/2024 9:00 AM EST Office Visit [place]ematology [place] [address] Rosalba Patel MD [facility] [place] [address] 08/13/2024 10:30 AM EST Appointment Hematology and Oncology at [place] [phone] documented as of this encounter Visit Diagnoses Diagnosis Malignant neoplasm of lower-outer quadrant of left breast of female, estrogen receptor positive documented in this encounter Care Teams Sales Development Director Relationship Specialty Start Date End Date Nat Nicolas APRN [address] [place] [address] PCP - General Family Medicine 04/02/24 documented as of this encounter
--- OUTSIDE RECORDS SUMMARY | 2024-06-21 16:12 | XMS_ITS | Encounter Summary ---
Author Organization [facility] [place] [address] Care Team Providers Care Career Center Director Name Role Phone Nat Nicolas APRN Primary Care Provider Reason for Visit * Reason Comments Follow-up Encounter Details Date Type Department Care Team (Late st Contact Info) Description 06/04/2024 11:00 AM EST Office Visit Hematology [place] [address] Rosalba Patel MD [facility] [place] [address] Malignant neoplasm of lower-outer quadrant of left [...] Sign Reading Time Taken Comments Blood Pressure 156/94 06/04/2024 10:53 AM EST Pulse 88 06/04/2024 10:53 AM EST Temperature 37 ??C (98.6 ??F) 06/04/2024 10: 53 AM EST Respiratory Rate 18 06/04/2024 10:5 3 AM EST Oxygen Saturation 97% 06/04/2024 10: 53 AM EST Inhaled Oxygen Concentration - - Weight 80.6 kg (177 lb 11.1 oz) 024 10:53 AM EST Height 160.6 cm (5' 3.23) 06/04/2024 1 0:53 AM EST Body Mass Index 31.25 06/04/2024 10:53 AM EST documented in this encounter Progress Notes * Rosalba Patel MD - 06/04/2024 11:00 AM EST Images from the original note were not included. [facility] Patient Name: Martha Rodriguez is a 59 y.o. female [place] (1 [place] away). : 1965 Visit Date: 06/03/2024 PCP: Nat Nicolas APRN Breast surgical oncology: Lashay Amaral MD Radiation oncology: Referral pending Reason for visit: Scheduled f/up for ddAC-T Summary: Martha Rodriguez is a 59 y.o. female with clinical Stage IIA ([id number]) multifocal invasive lobular carcinoma of the left breast, ER + / OR + / HER2 -, diagnosed on 03/06/2024. She presents today for neoadjuvant ddAC-T. DIAGNOSIS: Breast cancer pathology & staging: Clinical stage: [id number] Stage IIA Pathological stage: pending surgery Pathology: Invasive lobular carcinoma, grade 2, LVI-. Surgical pathology pending. Lauryn status: 4 abnormal axillary nodes, level I and II, seen on MRI - axillary u/s and biopsy 05/08/2024 positive for metastatic carcinoma Receptor status: ER positive (>90%, strong) OR positive (>70% strong) HER2 negative by FISH, total # signals for HER2 = 321, total # signals for CEP- 17 = 184; ratio = 1.7, Ave # HER2 signal/cell = 5.4 Oncotype DX RS: N/A Genetics: 02/22/2018- [facility] test for BRCA1 only ([facility]) - referred for updated testing - scheduled 05/19/2024 NGS: N/A Menopausal Status: Post-menopausal CURRENT TX: neoadjuvant ddAC-T ONCOLOGIC HX: 03/06/2024-screening mammogram Left breast: There is approximately 2.5 cm spiculated mass in the lower outer quadrant? At 3:00, 4 cm from the nipple. With architectural distortion and nipple retraction. Extending inferior and medial from this mass are microcalcifications likely additional sites of malignancy. Ultrasound was conco rdant with a 2.5 cm hypoechoic shadowing avascular spiculated mass. BI-RADS Category 5. 04/02/2024- core needle biopsy ILC, grade 2, LVI- ER positive (>90%, strong) OR positive (>70% strong) HER2 negative by FISH, total # signals for HER2 = 321, total # signals for CEP- 17 = 184; ratio = 1.7, Ave # HER2 signal/cell = 5.4 04/09/2024- MRI breast, repeat imaging LEFT breast Lesion 1 - 2.5 x 3.1 x 4.0 cm, 12 o'clock 1cm above the nipple Lesion 2 - 2.5 x 1.5 x 2.0 cm, located superior and medial to Lesion 1 Lesion 3 - 7.6 x 5.4 x 6.5 cm clumped nonmass enhancement that include lesions 1 and 2, and involves the nipple, extending back and laterally into the posterior 1/3 of the breast. RIGHT breast Lesion 1 - 0.8cm mass in the lower inner quadrant Lymph nodes: there are at least 4 abnormal LEFT Lns at the level 1 and level 2 stations, with 2 foci of enhancement in the far poseterior left breast / axillary tail that may be additional Lns. The entire axilla was not included in this MRI. There is no pectoralis or chest wall involvement. 04/25 - CT CAP - no evidence of metastatic disease; possible retroclavicular LN involvement 04/29 - BS - no skeletal metastases 05/08 - biopsy LEFT axillary LN and RIGHT (contralateral) breast mass LEFT axillary LN: At least 5-6 abnormal left level 1 axillary Lns; one of these was biopsied and positive for metastatic carcinoma RIGHT breast: NOT biopsied; appearance on ultrasound was likely benign lesions #1 at 3:00, 4cm fromnipple measuring 0.6cm and #2 at 3:00, 6cm from the nipple measuring 0.7cm - recommended 6-month f/up imaging 05/08/2024- C1D1 ddAC-T 05/22/2024- C2D1 ddAC-T 06/04/2024- C3D1 ddAC-T Assessment & Plan: Martha Rodriguez is a 59 y.o. female with PMHx significant for but not limited to HTN, diabetes, migraines, medication non-compliance, and new diagnosis of multifocal invasive lobular carcinoma of the LEFT breast, ER+OR+Her2-, who presents today in scheduled follow-up for neoadjuvant ddAC-T. # Left breast cancer, ILC, ER positive, OR positive, HER2 negative - Risk scoring: Predict 10-year survival of 59y/o female without breast cancer: 95% Survival with breast cancer treated with surgery alone: 76% + radiotherapy: 79% + hormone therapy: 84% + chemotherapy: 87% + bisphosphonates: 89% - Screening for metastatic disease: CT and bone scan 04/25 and 04/29 - no distant metastases - Imaging: Will need repeat ultrasound RIGHT breast in October 2024 Consider repeat MRI and axillary LN u/s after neoadj chemo completed in discussion with surgery (Dr. Amaral) -Treatment: Neoadjuvant ddAC-T Monitoring Treatment related toxicities: -Fatigue/weakness: rest as needed -Elevated LFTs: headache and taking Tylenol/Ibuprofen frequently will monitor with next cycle - N/V: limited continue using anti-emetics Monitoring compliance/adherence: N/A Bone health: DEXA scan will be needed when hormonal therapy begins Has history of vitamin D deficiency; recheck level Encourage appropriate supplementation and weightbearing exercise #Insulin-dependent diabetes High risk for CIPN - encourage use of frozen gloves/mitts PCP co-management encouraged Consider nutrition consult High BG 387 today, could be cause of headaches, reviewed with Dr. Patel who will consider adding NPHbefore steroids and will send patient message to f/u with PCP # Right breast mass seen on MRI - biopsy deferred due to benign appearance of 2 lesions seen on ultrasound 05/08/2024 - f/up with repeat ultrasound in 6 months (did not order today) Recommendations/Plan: Given her performance status, with adequate labs, proceed with C3D1 neoadjuvant ddACT Follow-up: RTC in 2 weeks for labs, MD/SENIOR SAFETY MANAGEMENT CONSULTANT visit and C4D1 neoadj ddAC-T Interval History: 06/04/2024 C3D1 ddAC-T #Left hip pain, low back pain (sometimes sciatica) - taking Tylenol-Advil dual tablets, which helps, taking every day for the last 3 days. #FMLA - denied; her job is not fully protected at this point which makes her nervous. She is going to appeal this. She is trying to work through chemotherapy but not always able. #Headaches - ongoing, but improved since better glucose control #BG - improved today but still high, 253; will provide NPH with steroids during pre-meds #PCP - Nat Monten[place]ro - last week - was dehydrated - she was placed on another medicine for diabetes and increased her insulin. She is checking her sugar at home. 05/22/2024 Here for C2D1 ddAC-T N/V: nausea, anti-emetics helped Headache: after first infusion 4-5 days could not get rid of it. Tylenol and Advil together did help, but alone nothing helped. Night time vision was hard, denies double vision. Front of head, deniesnumbness/tingling in face. Denies fevers Woke up with sniffles today, congestion and milder headache. Joint aches, feeling weaker Vulva is sore and red LFTs elevated BG elevated today 05/08/2024 Here for C1D1 ddAC-T Had LN biopsy today; did not know she was getting chemo today Scheduling issue - due for scope/EGD on 05/22 at OSH - wondering how to time this with chemo 04/30/2024 Here to discuss staging scans and next steps Martha presents with Patel, and family on the phone She is doing well. Relieved to hear that the scans did not show metastatic disease. 04/16/2024- here to establish care Martha presents with daughters Colleen and Iggy, grandson Jackson, and Patel. She is understandably anxious about the diagnosis. She is able to continue working and has good social support. She has tenderness to her left breast that makes it difficult to do her job. 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 She does not have swelling in her arm. She has had a 10lb unintentional weight loss over the last 6 months She has a history of migraine that is well controlled No cough, back pain, bone pain Medications are outdated in our chart #Risk factors: History Oral contraceptive use None Menarche age 14 LMP Years ago Menopausal symptoms Mild hot flashes Personal history of hormone replacement therapy None Other menopausal sx control None Family history of breast cancer None Family history of ovarian cancer Sister Family history of prostate cancer * Ashkenazi [employer]ism heritage * Personal history of known genetic mutation Sister is BRCA2? positive, Martha is negative by report As per HPI, all other systems were reviewed and are negative. Review of Systems - Oncology Current Medications: Current Outpatient Medications Medication Sig prochlorperazine (Compazine) 10 mg tablet Take 1 tablet by mouth every 6 hours as needed for Nausea. OLANZapine (ZyPREXA) 5 mg tablet Take 1 tablet by mouth nightly. On nights 1-4 of chemotherapy. lidocaine-prilocaine (EMLA) Cream Apply topically 60 minutes prior to accessing port. Apply a thicklayer of cream to designated site of intact skin. Cover site with occlusive dressing. hydroCHLOROthiazide 12.5 mg tablet Take 12.5 mg by mouth. lisinopriL (Zestril) 20 mg Tablet Take 0.5 tablets by mouth daily. metFORMIN (FORTAMET) 500 mg Tablet Extended Rel 24 hr Take 1 tablet by mouth 2 times daily (with meals). benzonatate (TESSALON) 100 mg Capsule Take 1 capsule by mouth 3 times daily as needed for Cough. ibuprofen (ADVIL;MOTRIN) 600 mg Tablet Take 1 tablet by mouth every 6 hours as needed for Pain. meclizine (ANTIVERT) 25 mg tablet Take 1 tablet by mouth 3 times daily as needed for Dizziness. lisinopril (PRINIVIL;ZESTRIL) 20 mg tablet Take 20 mg by mouth daily. atenolol (TENORMIN) 25 mg tablet Take 25 mg by mouth daily. Physical Exam: Vital signs and weight : Wt Readings from Last 3 Encounters: 05/22/24 79.5 kg (175 lb 4.3 oz) 05/08/24 81.2 kg (179 lb 0.2 oz) 04/30/24 82 kg (180 lb 12.4 oz) Temp Readings from Last 3 Encounters: 05/22/24 36.4 ??C (97.5 ??F) (Temporal) 05/08/24 36.6 ??C (97.9 ??F) (Temporal) 05/05/24 36.8 ??C (98.3 ??F) (Temporal) BP Readings from Last 3 Encounters: 05/22/24 125/78 05/08/24 (!) 154/96 05/05/24 143/78 Pulse Readings from Last 3 Encounters: 05/22/24 100 05/08/24 63 05/05/24 87 ECOG PS: 1 Physical Exam Vitals reviewed. Constitutional: General: She is not in acute distress. Appearance: Normal appearance. She is not ill-appearing. HENT: Head: Normocephalic and atraumatic. Mouth/Throat: Mouth: Mucous membranes are moist. Pharynx: Oropharynx is clear. Eyes: Extraocular Movements: Extraocular movements intact. Conjunctiva/sclera: Conjunctivae normal. Pupils: Pupils are equal, round, and reactive to light. Cardiovascular: Rate and Rhythm: Normal rate and regular rhythm. Heart sounds: No murmur heard. Pulmonary: Effort: Pulmonary effort is normal. Breath sounds: Normal breath sounds. Chest: Chest wall: Mass (Axillary nodes are matted (left) at baseline. on 06/04, no longer matted. Smallernode appreciated.) present. No tenderness, edema or bony tenderness. Breasts: No breast swelling. Right: No inverted nipple, mass or skin change. Left: Inverted nipple, mass (No longer tender (06/04)) and tenderness present. No skin change. Abdominal: General: Abdomen is flat. Bowel sounds are normal. Palpations: Abdomen is soft. Musculoskeletal: General: No swelling or tenderness. Normal range of motion. Skin: General: Skin is warm and dry. Findings: No lesion or rash. Neurological: General: No focal deficit present. Mental Status: She is alert and oriented to person, place, and time. Mental status is at baseline. Psychiatric: Mood and Affect: Mood normal. Behavior: Behavior normal. Thought Content: Thought content normal. Labs: Lab Results Component Value Date WBC 12.05 (H) 05/22/2024 HGB 13.5 05/22/2024 HCT 39.0 05/22/2024 MCV 89.4 05/22/2024 PLATELET 279 05/22/2024 Lab Results Component Value Date NEUTROABS 8.85 (H) 05/22/2024 Lab Results Component Value Date NA 134 (L) 05/22/2024 K 4.0 05/22/2024 CL 95 (L) 05/22/2024 CO2 26 05/22/2024 BUN 17 05/22/2024 CREATININE 0.59 (L) 05/22/2024 GLUCOSE 387 (H) 05/22/2024 CALCIUM 9.4 05/22/2024 ESTGFR 103 05/22/2024 Lab Results Component Value Date ALT 57 (H) 05/22/2024 AST 13 05/22/2024 ALKPHOS 226 (H) 05/22/2024 BILITOT 0.2 05/22/2024 ALBUMIN 4.2 05/22/2024 PROT 7.0 05/22/2024 Pathology: Surgical Pathology s/p definitive breast surgery: Pending Breast Imaging: None new Annual mammogram: Per surgery; not yet due. Schedule pending surgical date. Imaging: DEXA scan: Pending Cardiac oncology: EKG: N/A TTE 05/05/2024: Interpretation Summary 1. Mildly increased left ventricual [...] tricuspid regurgitation. No prior study for comparison. Total time spent: 60 minutes with > 50% spend in discussion of above, [id number] time and coordination of care with the patient today Rylie Patel MD Medical Oncology [facility] Gas Meter RepairerChief Of Harbor Patrol, [facility] Office Cancer.[facility] documented in this encounter Plan of Treatment Upcoming Encounters Date Type Department Care Team (Late st Contact Info) Description 07/02/2024 8:00 AM EST Appointment Hematology [place] [phone] 07/02/2024 9:00 AM EST Office Visit Hematology [place] [address] Rosalba Patel MD [facility] [place] [address] 07/02/2024 10:30 AM EST Appointment Hematology and Oncology at [place] [phone] 07/07/2024 10:30 AM EST TH Visit (TeleHealth) Hematology and Oncology at [place] [phone] Hem/Onc, Clinic Pharmacist None 07/17/2024 9:00 AM EST Appointment Hematology [place] [phone] 07/17/2024 10:00 AM EST Office Visit Hematology and Oncology at [place] [phone] Rosalba Patel MD [facility] [place] [place] [address] 07/17/2024 11:30 AM EST Appointment Hematology [place] [address] 07/30/2024 7:30 AM EST Appointment Hematology [place] [phone] 07/30/2024 8:30 AM EST Office Visit Hematology [place] [address] Yamileth Nur APRN [facility] [place] [address] 07/30/2024 10:00 AM EST Appointment Hematology [place] [address] 08/13/2024 8:00 AM EST Appointment Hematology [place] [address] 08/13/2024 9:00 AM EST Office Visit Hematology [place] [address] Rosalba Patel MD [facility] [place] [address] 08/13/2024 10:30 AM EST Appointment Hematology [place] [address] documented as of this encounter Visit Diagnoses Diagnosis Malignant neoplasm of lower-outer quadrant of left breast of female, estrogen receptor positive documented in this encounter Care Teams Career Center Director Relationship Specialty Start Date End Date Nat Nicolas APRN [address] [place] [address] PCP - General Family Medicine 04/02/24 documented as of this encounter
--- OUTSIDE RECORDS SUMMARY | 2024-06-21 16:12 | XMS_ITS | Encounter Summary ---
Author [place] [address] Care Team Providers Care It Consulting Manager Name Role Phone Nat Nicolas APRN Primary Care Provider Encounter Details Date Type Department Care Team (Late st Contact Info) Description 05/15/2024 Orders Only Hematology [place] [address] Kiana Dickerson, [facility] [address] [facility] [place] [address] Malignant neoplasm of lower-outer quadrant of left [...] AM EST Appointment Hematology [place] [address] 07/02/2024 9:00 AM EST Office Visit Hematology [place] [address] Rosalba Patel MD [facility] [place] [address] 07/02/2024 10:30 AM EST Appointment Hematology [place] [address] 07/07/2024 10:30 AM EST TH Visit (TeleHealth) Hematology [place] [address] Hem/Onc, Clinic Pharmacist None 07/17/2024 9:00 AM EST Appointment Hematology [place] [address] 07/17/2024 10:00 AM EST Office Visit Hematology [place] [address] Rosalba Patel MD [facility] [place] [address] 07/17/2024 11:30 AM EST Appointment Hematology [place] [address] 07/30/2024 7:30 AM EST Appointment Hematology [place] [address] 07/30/2024 8:30 AM EST Office Visit Hematology [place] [address] Yamileth Nur APRN [facility] [place] [address] 07/30/2024 10:00 AM EST Appointment Hematology [place] [address] 08/13/2024 8:00 AM EST Appointment Hematology [place] [address] 08/13/2024 9:00 AM EST Office Visit Hematology [place] [address] Rosalba Patel MD [facility] [place] [address] 08/13/2024 10:30 AM EST Appointment Hematology [place] [address] Scheduled Orders Name Type Priority Associated Diagnoses Orde r Schedule Miscellaneous Lab request Lab Routine Malignant neoplasm of lower-outer quadrant of left breast of female, estrogen receptor positive Expected: 05/19/2024, Expires: 11/18/2024 documented as of this encounter Visit Diagnoses Diagnosis Malignant neoplasm of lower-outer quadrant of left breast of female, estrogen receptor positive documented in this encounter Care Teams It Consulting Manager Relationship Specialty Start Date End Date Nat Nicolas APRN [address] [place] [address] PCP - General Family Medicine 04/02/24 documented as of this encounter
--- OUTSIDE RECORDS SUMMARY | 2024-06-21 16:12 | XMS_ITS | Encounter Summary ---
[place] [address] Care Team Providers Care Outdoor Power Equipment Mechanic Name Role Phone Nat Nicolas APRN Primary Care Provider Reason for Visit * Treatment/Therapy Plan Authorization (Routine) - Authorized Specialty Diagnoses / Procedures Referred By Contgiuliana t Referred To Contact Hematology and Oncology Diagnoses Malignant neoplasm of lower-outer quadrant of left breast of female, estrogen receptor positive Type 2 diabetes mellitus without complication, without long-term current use of insulin Rosalba Patel MD [facility] [place] [address] [address] Referral ID Status Reason Start Date Expiration Date V isits Requested Visits Authorized [id number] Authorized 04/29/2024 04/29/2025 99 107 Encounter Details Date Type Department Care Team (Latest Contact Info) Description 06/18/2024 12:30 PM EST - 06/18/2024 1:02 PM EST Hospital Encounter Hematology [place] [address] Malignant neoplasm of lower-outer quadrant of left [...] as of this encounter Progress Notes * Harriett Campos RN - 06/18/2024 1:22 PM EST Patient Name: Martha Rodriguez Patient Age: 59 y.o. Birthdate: 1965 Admit date: 06/18/2024 Attending Physician: Lucy att. providers found Access visit. See MAR and/or flowsheet. documented in this encounter Plan of Treatment Upcoming Encounters Date Type Department Care Team (Late st Contact Info) Description 07/02/2024 8:00 AM EST Appointment Hematology [place] [address] 07/02/2024 9:00 AM EST Office Visit Hematology [place] [address] Rosalba Patel MD [facility] [place] [address] 07/02/2024 10:30 AM EST Appointment Hematology [place] [address] 07/07/2024 10:30 AM EST TH Visit (TeleHealth) Hematology [place] [address] Hem/Onc, Clinic Pharmacist None 07/17/2024 9:00 AM EST Appointment Hematology [place] [address] 07/17/2024 10:00 AM EST Office Visit Hematology [place] [address] Rosalba Patel MD [facility] [place] [address] 07/17/2024 11:30 AM EST Appointment Hematology and Oncology at [place] [phone] 07/30/2024 7:30 AM EST Appointment Hematology and Oncology at [place] [phone] 07/30/2024 8:30 AM EST Office Visit Hematology and Oncology at [place] [phone] Yamileth Nur APRN [facility] [address] [place] [address] 07/30/2024 10:00 AM EST Appointment Hematology [place] [address] 08/13/2024 8:00 AM EST Appointment Hematology and Oncology at [place] [phone] 08/13/2024 9:00 AM EST Office Visit Hematology and Oncology at [place] [phone] Rosalba Patel MD [facility] [place] [address] 08/13/2024 10:30 AM EST Appointment Hematology [place] [address] documented as of this encounter Procedures Procedure Name Priority Date/Time Associated Diagnosis Comments CANCER ANTIGEN 15-3 STAT 06/18/2024 1 :22 PM EST Malignant neoplasm of lower-outer quadrant of left breast of female, estrogen receptor positive Type 2 diabetes mellitus without complication, without long-term current use of insulin CBC (WITH DIFF) STAT 06/18/2024 1:22 PM [...] use of insulin documented in this encounter Results * (ABNORMAL) Cancer antigen 15-3 (06/18/2024 1:22 PM EST) CA 15-3 39(H) <=25 unit/mL 06/18/2024 2:14 PM EST [facility] Comment:This result was gene rated using a Tani Elías immunoassay. Results obtained from other methods or manufacturers cannot be used interchangeably with this method. Blood VENOUS BLOOD SPECIMEN / Unknown Venipuncture / Unknown 06/18/2024 1:22 PM EST 06/18/2024 1:36 PM EST Rosalba Patel MD CHEMISTRY ORDERABLES [facility] [place] [address] * (ABNORMAL) Comprehensive metabolic panel Non-fasting (06/18/2024 1:22 PM EST) Glucose 305(H) 65 - 199 mg/dL 06/18/2024 2:08 PM EST [facility] Comment:Glucose Concentratio n >=200 mg/dL plus symptoms is consistent with Diabetes Mellitus. Blood Urea Nitrogen 20(H) 8 - 18 mg/dL 06/18/2024 2:08 PM EST [facility] Creatinine 0.63(L) 0.70 - 1.20 mg/dL 06/18/2024 2:08 PM EST [facility] Sodium 141 135 - 145 mMol/L 06/18/2024 2:08 PM EST [facility] Potassium 3.9 3.5 - 5.0 mMol/L 06/18/2024 2:08 PM [facility] Chloride 99 98 - 107 mMol/L 06/18/2024 2:08 PM [facility] Carbon Dioxide 25 22 - 31 mMol/L 06/18/2024 2:08 PM [facility] Anion Gap 17(H) 5 - 15 mMol/L 06/18/2024 2:08 PM [facility] Calcium 9.4 8.5 - 10.5 mg/dL 06/18/2024 2:08 PM [facility] Protein, Total 7.0 6.1 - 8.0 g/dL 06/18/2024 2:08 PM [facility] Albumin 4.4 3.2 - 5.2 g/dL 06/18/2024 2:08 PM [facility] Aspartate Aminotransferase 12 <=30 unit/L 06/18/2024 2:08 PM [facility] Alanine Aminotransferase 17 0 - 30 unit/L 06/18/2024 2:08 PM [facility] Alkaline Phosphatase 172(H) 35 - 105 unit/L 06/18/2024 2:08 PM [facility] Bilirubin, Total 0.2 <=1.3 mg/dL 06/18/2024 2:08 PM [facility] Est Glomerular Filtration Rate - Female 102 mL/min/1. 73 m?? 06/18/2024 2:08 PM [facility] Comment: This patient's estimated GFR [...] Foundation Fasting Status No 06/18/2024 2:08 PM [facility] Blood VENOUS BLOOD SPECIMEN / Unknown Venipuncture / Unknown 06/18/2024 1:22 PM EST 06/18/2024 1:36 PM EST Rosalba Patel MD CHEMISTRY ORDERABLES [facility] [place] [address] * (ABNORMAL) CBC (with Diff) (06/18/2024 1:22 PM EST) White Blood Cell 10.92(H) 4.00 - 9.50 x10(3)/mc L 06/18/2024 1:44 PM [facility] Red Blood Cell 4.05 4.00 - 5.21 x10(6)/mc L 06/18/2024 1:44 PM [facility] Hemoglobin 12.6 11.7 - 15.5 g/dL 06/18/2024 1:44 PM [facility] Hematocrit 37.0 35.7 - 45.8 % 06/18/2024 1:44 PM [facility] Mean Cell Volume 91.4 82.6 - 94.4 fL 06/18/2024 1:44 PM [facility] Mean Cell Hemoglobin 31.1 27.1 - 32.0 pg 06/18/2024 1:44 PM [facility] Mean Cell Hemoglobin Concentration 34.1 31.7 - 35.0 g/dL 06/18/2024 1:44 PM [facility] Platelet 287 145 - 357 x10(3)/mc L 06/18/2024 1:44 PM [facility] Mean Platelet Volume 10.4 7.6 - 12.9 fL 06/18/2024 1:44 PM [facility] RDW Standard Deviation 46.6(H) 37.0 - 46.0 fL 06/18/2024 1:44 PM [facility] RDW coefficient of variation 14.9(H) 11.5 - 14.1 % 06/18/2024 1:44 PM [facility] NRBC% auto 0.0 % 06/18/2024 1:44 PM [facility] NRBC Absolute <0.01 <0.01 x10(3)/mc L 06/18/2024 1:44 PM [facility] Neutrophil % 74.6 % 06/18/2024 1:44 PM [facility] Neutrophil Absolute (ANC) - Automated 8.14(H) 1.70 - 6.10 x10(3)/mc L 06/18/2024 1:44 PM [facility] Lymph % 12.9 % 06/18/2024 1:44 PM [facility] Lymph Absolute 1.41 0.90 - 3.20 x10(3)/mc L 06/18/2024 1:44 PM [facility] Monocyte % 7.7 % 06/18/2024 1:44 PM [facility] Monocyte Absolute 0.84 0.30 - 0.90 x10(3)/mc L 06/18/2024 1:44 PM [facility] Eos % 0.8 % 06/18/2024 1:44 PM [facility] Eos Absolute 0.09 0.00 - 0.40 x10(3)/mc L 06/18/2024 1:44 PM [facility] Basophil % 0.7 % 06/18/2024 1:44 PM [facility] Baso Absolute 0.08 0.00 - 0.10 x10(3)/mc L 06/18/2024 1:44 PM [facility] Immature Gran % 3.3 % 1:44 PM [facility] Immature Gran Absolute 0.36(H) 0.00 - 0.04 x10(3)/mc L 06/18/2024 1:44 PM [facility] Blood VENOUS BLOOD SPECIMEN / Unknown Venipuncture / Unknown 06/18/2024 1:22 PM EST 06/18/2024 1:36 PM EST Rosalba Patel MD HEMATOLOGY ORDERABLE [facility] [address] [place] [address] documented in this encounter Visit Diagnoses Diagnosis Malignant neoplasm of lower-outer quadrant of left breast of female, estrogen receptor positive Type 2 diabetes mellitus without complication, without long-term current use of insulin documented in this encounter Administered Medications Inactive Administered Medications - up to 3 most recent administrations Medication Order MAR Action Action Date Dose Rate Site sodium chloride 0.9 % (flush) (BD PosiFlush Normal Saline 0.9) flush 5-20 mL 5-20 mL, Intravenous, EVERY 1 MIN PRN, Starting on Sun06/18/24 at 1308, Until Millie 06/19/24 at 0433, Line Care, Flush pertains to all indwelling lines. Flush per protocol found in the job aid using the link provided on this medication record. Refer to Intravenous (IV) Job Aid: Adult Flushing & Catheter Care (4613) job aid for additional information regarding guidelines and administration., Routine Given 06/18/2024 1:22 PM EST 20 mLs documented in this encounter Care Teams Outdoor Power Equipment Mechanic Relationship Specialty Start Date End Date Nat Nicolas APRN [address] [place] [address] PCP - General Family Medicine 04/02/24 documented as of this encounter
--- OUTSIDE RECORDS SUMMARY | 2024-06-21 16:12 | XMS_ITS | Encounter Summary ---
Author Organization [facility] [place] [address] Care Team Providers Care Emt I/99 Name Role Phone Nat Nicolas APRN Primary Care Provider Encounter Details Date Type Department Care Team (Late st Contact Info) Description 05/16/2024 [place] [address] Nat Hess MSW Social History Tobacco Use Types Packs/Day Years [...] as of this encounter Progress Notes * Nat Hess MSW - 05/16/2024 4:34 PM EDTSummary: Comprehensive Breast Program: Social Work Note I attempt to contact Martha twice today per her messages; first call or contact centre manager answering phone call requests that I call back as Martha has stepped inside a store; second attempt no answer. LM with my contact information and stated purpose of call, encouraging call back at her convenience. I follow up with message to her [employer] account, containing information and resources for financial grants and hospital financial assistance application. We're able to connect by phone on 05/19. Martha reports she is receiving monthly assistance from [employer], and would like to utilize [facility] for recent heating oil delivery from [employer]. She gives me permission to contact the [employer] on her behalf ([phone]) to request invoice. Company staff agrees to send statement to me so I can arrange payment. Completed today: Financial resources Community Resource Patient Financial Assistance/Insurance Nat ???Fide?? LAUREL Hess Social Work, Breast and Gynecology Oncology [email or web address] documented in this encounter Plan of Treatment Upcoming Encounters Date Type Department Care Team (Late st Contact Info) Description 07/02/2024 8:00 AM EST Appointment Hematology [place] [address] 07/02/2024 9:00 AM EST Office Visit Hematology [place] [address] Rosalba Patel MD [facility] [place] [address] 07/02/2024 10:30 AM EST Appointment Hematology [place] [address] 07/07/2024 10:30 AM EST TH Visit (TeleHealth) Hematology [place] [address] Hem/Onc, Clinic Pharmacist None 07/17/2024 9:00 AM EST Appointment Hematology [place] [address] 07/17/2024 10:00 AM EST Office Visit Hematology [place] [address] Rosalba Patel MD [facility] [place] [address] 07/17/2024 11:30 AM EST Appointment Hematology [place] [address] 07/30/2024 7:30 AM EST Appointment Hematology [place] [address] 07/30/2024 8:30 AM EST Office Visit Hematology [place] [phone] Yamileth Nur APRN [facility] [place] [address] 07/30/2024 10:00 AM EST Appointment Hematology [place] [address] 08/13/2024 8:00 AM EST Appointment Hematology [place] [address] 08/13/2024 9:00 AM EST Office Visit Hematology [place] [address] Rosalba Patel MD [facility] [place] [address] 08/13/2024 10:30 AM EST Appointment Hematology [place] [address] documented as of this encounter Visit Diagnoses Not on filedocumented in this encounter Care Teams Emt I/99 Relationship Specialty Start Date End Date Nat Nicolas, AUTOMATIC GRINDING MACHINE OPERATOR [address] [place] [address] PCP - General Family Medicine 04/02/24 documented as of this encounter
--- OUTSIDE RECORDS SUMMARY | 2024-06-21 16:12 | XMS_ITS | Encounter Summary ---
Author Organization [facility] [place] [address] Care Team Providers Care J2Ee Engineer Name Role Phone Nat Nicolas APRN Primary Care Provider Encounter Details Date Type Department Care Team (Late st Contact Info) Description 05/22/2024 Notes [place] [address] Nat Hess MSW Social History Tobacco Use [...] Progress Notes * Nat Hess MSW - 05/22/2024 11:20 AM EDTSummary: Comprehensive Breast Program: Social Work Note I'm able to forward Martha's paperwork to Dr. Rosalba Patel's clinical secretary administrative assistant for processing. Completed today: Care Coordination Nat ???Fide?? LAUREL Hess Social Work, Breast and Gynecology Oncology [email or web address] documented in this encounter Plan of Treatment Upcoming Encounters Date Type Department Care Team (Late st Contact Info) Description 07/02/2024 8:00 AM EST Appointment Hematology and Oncology at [place] [phone] 07/02/2024 9:00 AM EST Office Visit Hematology and Oncology at [place] [phone] Rosalba Patel MD [facility] [place] [address] 07/02/2024 10:30 AM EST Appointment Hematology [place] [address] 07/07/2024 10:30 AM EST TH Visit (TeleHealth) Hematology and Oncology at [place] [phone] Hem/Onc, Clinic Pharmacist None 07/17/2024 9:00 AM EST Appointment Hematology [place] [phone] 07/17/2024 10:00 AM EST Office Visit Hematology [place] [phone] Rosalba Patel MD [facility] [place] [address] 07/17/2024 11:30 AM EST Appointment Hematology [place] [address] 07/30/2024 7:30 AM EST Appointment Hematology [place] [address] 07/30/2024 8:30 AM EST Office Visit Hematology [place] [address] Yamileth Nur APRN [facility] [place] [address] 07/30/2024 10:00 AM EST Appointment Hematology [place] [address] 08/13/2024 8:00 AM EST Appointment Hematology [place] [address] 08/13/2024 9:00 AM EST Office Visit Hematology [place] [address] Rosalba Patel MD [facility] [place] [address] 08/13/2024 10:30 AM EST Appointment Hematology and Oncology at [place] [phone] documented as of this encounter Visit Diagnoses Not on filedocumented in this encounter Care Teams J2Ee Engineer Relationship Specialty Start Date End Date Nat Nicolas APRN [address] [place] [address] PCP - General Family Medicine 04/02/24 documented as of this encounter
--- OUTSIDE RECORDS SUMMARY | 2024-06-21 16:12 | XMS_ITS | Encounter Summary ---
[place] [address] Care Team Providers Care Manager Assurance Name Role Phone Nat Nicolas APRN Primary Care Provider Reason for Visit * Treatment/Therapy Plan Authorization (Routine) - Authorized Specialty Diagnoses / Procedures Referred By Contac t Referred To Contact Hematology and Oncology Diagnoses Malignant neoplasm of lower-outer quadrant of left breast of female, estrogen receptor positive Type 2 diabetes mellitus without complication, without long-term current use of insulin Rosalba Patel MD [facility] [place] [address] [address] Referral ID Status Reason Start Date Expiration Date V isits Requested Visits Authorized [id number] Authorized 04/29/2024 04/29/2025 99 [id number] Encounter Details Date Type Department Care Team (Latest Contact Info) Description 05/22/2024 8:31 AM EDT Hospital Encounter Hematology [place] [address] Malignant neoplasm of lower-outer quadrant of left breast of female, estrogen receptor positive Discharge Disposition: Home Social History Tobacco Use [...] Sig Dispensed Refills Start Date End Date lidocaine-prilocaine (EMLA) CreamIndications:Malign ant neoplasm of lower-outer [...] as of this encounter Progress Notes * Daily Quinn RN - 05/22/2024 9:14 AM EDT Patient Name: Martha Rodriguez Patient Age: 59 y.o. Birthdate: 1965 Admit date: 05/22/2024 Attending Physician: Lucy att. providers found Access visit. See MAR and/or flowsheet. documented in this encounter Plan of Treatment Upcoming Encounters Date Type Department Care Team (Late st Contact Info) Description 07/02/2024 8:00 AM EST Appointment Hematology [place] [address] 07/02/2024 9:00 AM EST Office Visit Hematology [place] [address] Rosalba Patel MD [facility] [place] [address] 07/02/2024 10:30 AM EST Appointment Hematology [place] [address] 07/07/2024 10:30 AM EST TH Visit (TeleHealth) Hematology [place] [address] Hem/Onc, Clinic Pharmacist None 07/17/2024 9:00 AM EST Appointment Hematology [place] [address] 07/17/2024 10:00 AM EST Office Visit Hematology [place] [address] Rosalba Patel MD [facility] [place] [address] 07/17/2024 11:30 AM EST Appointment Hematology [place] [address] 07/30/2024 7:30 AM EST Appointment Hematology [place] [address] 07/30/2024 8:30 AM EST Office Visit Hematology [place] [address] Yamileth Nur APRN [facility] [place] [address] 07/30/2024 10:00 AM EST Appointment Hematology [place] [address] 08/13/2024 8:00 AM EST Appointment Hematology [place] [address] 08/13/2024 9:00 AM EST Office Visit Hematology [place] [address] Rosalba Patel MD [facility] [address] [place] [address] 08/13/2024 10:30 AM EST Appointment Hematology [place] [address] Scheduled Orders Name Type Priority Associated Diagnoses Orde r Schedule Miscellaneous Lab request Lab Routine Malignant neoplasm of lower-outer quadrant of left breast of female, estrogen receptor positive 1 Occurrences starting 05/22/2024 until 05/22/2024 documented as of this encounter Procedures Procedure Name Priority Date/Time Associated Diagnosis Comments CANCER ANTIGEN 15-3 STAT 05/22/2024 9 :01 [...] estrogen receptor positive documented in this encounter Results * Cancer antigen 15-3 (05/22/2024 9:01 AM EDT) CA 15-3 21 <=25 unit/mL 05/22/2024 10:24 AM EDT [facility] Comment:This result was gene rated using a Tani Elías immunoassay. Results obtained from other methods or manufacturers cannot be used interchangeably with this method. Blood VENOUS BLOOD SPECIMEN / Unknown Mediport Line / Unknown 05/22/2024 9:01 AM EDT 05/22/2024 9:34 AM EDT Rosalba Patel MD CHEMISTRY ORDERABLES [facility] [place] [address] * (ABNORMAL) Comprehensive metabolic panel Non-fasting (05/22/2024 9:01 AM EDT) Glucose 387(H) 65 - 199 mg/dL 05/22/2024 10:18 AM EDT [facility] Comment:Glucose Concentratio n >=200 mg/dL plus symptoms is consistent with Diabetes Mellitus. Blood Urea Nitrogen 17 8 - 18 mg/dL 05/22/2024 10:18 AM EDT [facility] Creatinine 0.59(L) 0.70 - 1.20 mg/dL 05/22/2024 10:18 AM EDT [facility] Sodium 134(L) 135 - 145 mMol/L 05/22/2024 10:18 AM EDT [facility] Potassium 4.0 3.5 - 5.0 mMol/L 05/22/2024 10:18 AM EDT [facility] Chloride 95(L) 98 - 107 mMol/L 05/22/2024 10:18 AM [facility] Carbon Dioxide 26 22 - 31 mMol/L 05/22/2024 10:18 AM [facility] Anion Gap 13 5 - 15 mMol/L 05/22/2024 10:18 AM [facility] Calcium 9.4 8.5 - 10.5 mg/dL 05/22/2024 10:18 AM [facility] Protein, Total 7.0 6.1 - 8.0 g/dL 05/22/2024 10:18 AM [facility] Albumin 4.2 3.2 - 5.2 g/dL 05/22/2024 10:18 AM [facility] Aspartate Aminotransferase 13 <=30 unit/L 05/22/2024 10:18 AM [facility] Alanine Aminotransferase 57(H) 0 - 30 unit/L 05/22/2024 10:18 AM [facility] Alkaline Phosphatase 226(H) 35 - 105 unit/L 05/22/2024 10:18 AM [facility] Bilirubin, Total 0.2 <=1.3 mg/dL 05/22/2024 10:18 AM [facility] Est Glomerular Filtration Rate - Female 103 mL/min/1. 73 m?? 05/22/2024 10:18 AM [facility] Comment: This patient's estimated GFR was [...] Calculator [employer] Fasting Status No 05/22/2024 10:18 AM [facility] Blood VENOUS BLOOD SPECIMEN / Unknown Mediport Line / Unknown 05/22/2024 9:01 AM EDT 05/22/2024 9:34 AM EDT Rosalba Patel MD CHEMISTRY ORDERABLES [facility] [place] [address] * (ABNORMAL) CBC (with Diff) (05/22/2024 9:01 AM EDT) White Blood Cell 12.05(H) 4.00 - 9.50 x10(3)/mc L 05/22/2024 9:57 AM EDT [facility] Red Blood Cell 4.36 4.00 - 5.21 x10(6)/mc L 05/22/2024 9:57 AM EDT [facility] Hemoglobin 13.5 11.7 - 15.5 g/dL 05/22/2024 9:57 AM EDT [facility] Hematocrit 39.0 35.7 - 45.8 % 05/22/2024 9:57 AM EDT [facility] Mean Cell Volume 89.4 82.6 - 94.4 fL 05/22/2024 9:57 AM EDT [facility] Mean Cell Hemoglobin 31.0 27.1 - 32.0 pg 05/22/2024 9:57 AM EDT [facility] Mean Cell Hemoglobin Concentration 34.6 31.7 - 35.0 g/dL 05/22/2024 9:57 AM EDT [facility] Platelet 279 145 - 357 x10(3)/mc L 05/22/2024 9:57 AM EDT [facility] Mean Platelet Volume 11.3 7.6 - 12.9 fL 05/22/2024 9:57 AM EDT [facility] RDW Standard Deviation 37.2 37.0 - 46.0 fL 05/22/2024 9:57 AM EDT [facility] RDW coefficient of variation 11.6 11.5 - 14.1 % 05/22/2024 9:57 AM [facility] NRBC% auto 0.0 % 05/22/2024 9:57 AM [facility] NRBC Absolute <0.01 <0.01 x10(3)/mc L 05/22/2024 9:57 AM [facility] Neutrophil % 73.5 % 05/22/2024 9:57 AM [facility] Neutrophil Absolute (ANC) - Automated 8.85(H) 1.70 - 6.10 x10(3)/mc L 05/22/2024 9:57 AM [facility] Lymph % 16.5 % 05/22/2024 9:57 AM [facility] Lymph Absolute 1.99 0.90 - 3.20 x10(3)/mc L 05/22/2024 9:57 AM [facility] Monocyte % 4.8 % 05/22/2024 9:57 AM [facility] Monocyte Absolute 0.58 0.30 - 0.90 x10(3)/mc L 05/22/2024 9:57 AM [facility] Eos % 1.3 % 05/22/2024 9:57 AM [facility] Eos Absolute 0.16 0.00 - 0.40 x10(3)/mc L 05/22/2024 9:57 AM [facility] Basophil % 0.8 % 05/22/2024 9:57 AM [facility] Baso Absolute 0.10 0.00 - 0.10 x10(3)/mc L 05/22/2024 9:57 AM [facility] Immature Gran % 3.1 % 9:57 AM [facility] Immature Gran Absolute 0.37(H) 0.00 - 0.04 x10(3)/mc L 05/22/2024 9:57 AM EDT [facility] Blood VENOUS BLOOD SPECIMEN / Unknown Mediport Line / Unknown 05/22/2024 9:01 AM EDT 05/22/2024 9:34 AM EDT Rosalba Patel MD HEMATOLOGY ORDERABLE S [facility] [address] [place] [address] documented in this encounter Visit Diagnoses Diagnosis Malignant neoplasm of lower-outer quadrant of left breast of female, estrogen receptor positive documented in this encounter Administered Medications Inactive Administered Medications - up to 3 most recent administrations Medication Order MAR Action Action Date Dose Rate Site sodium chloride 0.9 % (flush) (BD PosiFlush Normal Saline 0.9) flush 5-20 mL 5-20 mL, Intravenous, EVERY 1 MIN PRN, Starting on Millie 05/22/24 at 0838, Until 05/23/24 at 0434, Line Care, Flush pertains to all indwelling lines. Flush per protocol found in the job aid using the link provided on this medication record. Refer to Intravenous (IV) Job Aid: Adult Flushing & Catheter Care (1103) job aid for additional information regarding guidelines and administration., Routine Given 05/22/2024 9:14 AM EDT 20 mLs documented in this encounter Care Teams Manager Assurance Relationship Specialty Start Date End Date Nat Nicolas APRN [address] [place] [address] PCP - General Family Medicine 04/02/24 documented as of this encounter
--- OUTSIDE RECORDS SUMMARY | 2024-06-21 16:12 | XMS_ITS | Encounter Summary ---
[place] [address] Care Team Providers Care School Crossing Guard Name Role Phone NicoalsZacNatcarlos Malloy APRN Primary Care Provider Encounter Details Date Type Department Care Team (Late Contact Info) Description 05/12/2024 [place] [phone] Didi Loredo, RN Social History Tobacco Use Types Packs/Day Years [...] Encounters Date Type Department Care Team (Late Contact Info) Description 07/02/2024 8:00 AM EST Appointment [place] [address] 07/02/2024 9:00 AM EST Office Visit [place]ematology [place] [address] Rosalba Patel MD [facility] [place] [address] 07/02/2024 10:30 AM EST Appointment Hematology [place] [address] 07/07/2024 10:30 AM EST TH Visit (TeleHealth) Hematology and Oncology at [place] [phone] Hem/Onc, Clinic Pharmacist None 07/17/2024 9:00 AM EST Appointment H[place] [address] 07/17/2024 10:00 AM EST Office Visit [place]ematology [place] [address] Rosalba Patel MD [facility] [place] [address] 07/17/2024 11:30 AM EST Appointment [place] [address] 07/30/2024 7:30 AM EST Appointment [place] [address] 07/30/2024 8:30 AM EST Office Visit [place] [address] Yamileth Nur APRN [facility] [place] [place] [address] 07/30/2024 10:00 AM EST Appointment [place] [address] 08/13/2024 8:00 AM EST Appointment [place] [address] 08/13/2024 9:00 AM EST Office Visit [place] [address] Rosalba Patel MD [facility] [place] [place] [address] 08/13/2024 10:30 AM EST Appointment [place]ology [place] [address] documented as of this encounter Visit Diagnoses Not on filedocumented in this encounter Care Teams School Crossing Guard Relationship Specialty Start Date End Date Nat Nicolas APRN [address] [place] [address] PCP - General Family Medicine 04/02/24 documented as of this encounter
--- OUTSIDE RECORDS SUMMARY | 2024-06-21 16:12 | XMS_ITS | Encounter Summary ---
Author Organization [facility] [place] [address] Care Team Providers Care Regrinder Operator Name Role Phone Nat Nicolas APRN Primary Care Provider Encounter Details Date Type Department Care Team (Late st Contact Info) Description 05/20/2024 Notes [place] [address] Nat Hess MSW Social History Tobacco Use [...] Progress Notes * Nat Hess MSW - 05/20/2024 10:11 AM EDTSummary: Comprehensive Breast Program: Financial Resources Per planning with Martha, I'm able to submit application to cancer support foundation ([employer]) for assistance with her recent oil delivery. Martha aware and in agreement. Completed today: Financial resources Community Resource Nat ???Fide?? LAUREL Hess Social Work, Breast and Gynecology Oncology [email or web address] documented in this encounter Plan of Treatment Upcoming Encounters Date Type Department Care Team (Late st Contact Info) Description 07/02/2024 8:00 AM EST Appointment Hematology [place] [address] 07/02/2024 9:00 AM EST Office Visit Hematology [place] [address] Rosalba Patel MD [facility] [place] [address] 07/02/2024 10:30 AM EST Appointment Hematology [place] [address] 07/07/2024 10:30 AM EST TH Visit (TeleHealth) [place]ematology [place] [address] Hem/Onc, Clinic Pharmacist None 07/17/2024 9:00 AM EST Appointment Hematology [place] [address] 07/17/2024 10:00 AM EST Office Visit Hematology [place] [phone] Rosalba Patel MD [facility] [place] [address] 07/17/2024 11:30 AM EST Appointment Hematology [place] [address] 07/30/2024 7:30 AM EST Appointment Hematology [place] [address] 07/30/2024 8:30 AM EST Office Visit Hematology and Oncology at [place] [phone] Yamileth Nur APRN [facility] [place] [address] 07/30/2024 10:00 AM EST Appointment Hematology [place] [address] 08/13/2024 8:00 AM EST Appointment Hematology [place] [address] 08/13/2024 9:00 AM EST Office Visit Hematology [place] [address] Rosalba Patel MD [facility] [place] [place] [address] 08/13/2024 10:30 AM EST Appointment Hematology and Oncology at [place] [phone] documented as of this encounter Visit Diagnoses Not on filedocumented in this encounter Care Teams Regrinder Operator Relationship Specialty Start Date End Date Nat Nicolas APRN [address] [place] [address] PCP - General Family Medicine 04/02/24 documented as of this encounter
--- OUTSIDE RECORDS SUMMARY | 2024-06-21 16:12 | XMS_ITS | Encounter Summary ---
[place] [address] Care Team Providers Care Food And Drug Inspector Name Role Phone Nat Nicolas APRN Primary Care Provider Encounter Details Date Type Department Care Team (Latest Contact Info) Description 05/26/2024 8:30 AM EST TH Visit (TeleHealth) Hematology [place] [address] Andrés Donahue, [facility] Malignant neoplasm of lower-outer quadrant of left [...] as of this encounter Progress Notes * Andrés Donahue, [facility] - 05/26/2024 8:30 AM EST Oncology Clinical Pharmacist Consultation: CINV follow-up Visit Type: Telephone Subjective: Patient ID: Martha Rodriguez is a 59 y.o. female diagnosed with breast cancer who is being seen in follow-up today for chemotherapy-induced nausea and vomiting management. Allergies and Drug intolerance: Allergies Allergen Reactions Sulfa (Sulfonamide Antibiotics) Rash Chemotherapy Regimen includes the following agents (ddAC--> T): cyclophosphamide 600 mg/m2 IV once every 14 days doxorubicin Liposomal (Doxil) 60 mg/m2 IV once every 14 days C2 was given 05/22. Today is day 5 [place] Antiemetic Regimen Aloxi (palonosetron) 0.25 mg IV once prior to chemotherapy Cinvanti (aprepitant) 130 mg IV once prior to chemotherapy Decadron (dexamethasone) 10 mg IV or PO prior to chemotherapy Lorazepam 0.5 mg IV/PO prior to chemotherapy Home Antiemetic Regimen Compazine (prochlorperazine) 10 mg PO every 6 hours as needed for nausea Zyprexa (olanzapine) 5 mg PO nightly on days 1-4 CINV Assessment: Did you experience any nausea and/or vomiting during your last cycle of chemotherapy? Little nausea. No vomiting If yes, when did the nausea and/or vomiting occur and how long did it last? Yesterday (Day 4). Happened in middle of night (3-4 AM) and woke her up. Lasted about an hour. Did you need to utilize any PRN antinausea medications? Yes (just yesterday) Did you have any difficulty filling your antinausea medications? No Do you need any refills of any antinausea medications? No Do you believe your nausea is adequately controlled on your current regimen? Yes Slight headache, nothing major (not as bad as before, still lingering unsure if has to do with hairfalling out). Hair falling out. Difficult time coping with the hair loss. Asked if wanted me to reach out to social work/care team re:Rx for wig if covered. She is interested but doesn't have money to get one. Recently received a $100 certificate but doesn't know where it went to. -Encouraged her to wear hats/keep head warm with the colder weather coming. Tired/low energy. Starting to come down with a cold she says (runny nose, coughing). Denies any fevers when asked. Denies any SOB. She will trial tylenol cold product. Recommended temp prior and not to exceed recommended tylenol doses (in general + minimal lft bump they we will be trending). Assessment and Recommendations: Martha Rodriguez is a 59 y.o. female diagnosed with breast cancer who was seen in follow up today for chemotherapy-induced nausea and vomiting management. Pharmacy will continue to regularly meet with aMrtha until an optimal antiemetic regimen is determined. Antiemetic Plan: Continue above, consider dose reduction of dex premed with BG levels pending future readings at home/PCP recs. Will reach out to care team. Pharmacy follow up appointment: 06/11/24 Andrés Donahue RPH 05/26/24 15 minutes were spent providing patient education. documented in this encounter Plan of Treatment Upcoming Encounters Date Type Department Care Team (Late st Contact Info) Description 07/02/2024 8:00 AM EST Appointment Hematology [place] [address] 07/02/2024 9:00 AM EST Office Visit Hematology [place] [address] Rosalba Patel MD [facility] [place] [address] 07/02/2024 10:30 AM EST Appointment Hematology [place] [address] 07/07/2024 10:30 AM EST TH Visit (TeleHealth) Hematology [place] [address] Hem/Onc, Clinic Pharmacist None 07/17/2024 9:00 AM EST Appointment Hemat[place] [address] 07/17/2024 10:00 AM EST Office Visit [place]ematology [place] [address] Rosalba Patel MD [facility] [place] [address] 07/17/2024 11:30 AM EST Appointment Hematology [place] [address] 07/30/2024 7:30 AM EST Appointment Hemat[place] [address] 07/30/2024 8:30 AM EST Office Visit Hematology [place] [phone] Yamileth Nur APRN [facility] [place] [address] 07/30/2024 10:00 AM EST Appointment Hematology [place] [address] 08/13/2024 8:00 AM EST Appointment Hemat[place] [address] 08/13/2024 9:00 AM EST Office Visit [place]ematology [place] [address] Rosalba Patel MD [facility] [place] [address] 08/13/2024 10:30 AM EST Appointment Hematology [place] [address] documented as of this encounter Visit Diagnoses Diagnosis Malignant neoplasm of lower-outer quadrant of left breast of female, estrogen receptor positive documented in this encounter Care Teams Food And Drug Inspector Relationship Specialty Start Date End Date Nat Nicolas APRN [address] [place] [address] PCP - General Family Medicine 04/02/24 documented as of this encounter
--- OUTSIDE RECORDS SUMMARY | 2024-06-21 16:12 | XMS_ITS | Encounter Summary ---
[place] [address] Care Team Providers Care Incubator Operator Name Role Phone Nat Nicolas APRN Primary Care Provider Reason for Visit * Reason Comments Genetic Evaluation * Consultation (STAT) - Closed Specialty Diagnoses / Procedures Referred By Laurel garrett Referred To Contact Genetics Diagnoses Malignant neoplasm of lower-outer quadrant of left breast of female, estrogen receptor positive Rosalba Patel MD [facility] [place] [address] [facility] [address] [place] [address] Referral ID Status Reason Start Date Expiration Date V isits Requested Visits Authorized [id number] Closed Consult, Test & Treat 04/30/2024 04/30/2025 1 1 Encounter Details Date Type Department Care Team (Late st Contact Info) Description 05/19/2024 1:00 PM EDT Office Visit Hematology [place] [address] Lázaro Fong V [facility] Hematology/[place] [address] Malignant neoplasm of lower-outer quadrant of left breast of female, estrogen receptor positive; Family history of ovarian cancer; Family history of BRCA1 gene positive Social History Tobacco Use Types Packs/Day [...] as of this encounter Progress Notes * Lázaro Fong LGC - 05/19/2024 1:00 PM EDT Martha Rodriguez was seen by JOY Harvey in consultation at the request of Rosalba mendoza regarding possible heritable predisposition to cancer. I spent 20 minutes of this face to face encounter with the patient gathering medical and family history and discussing the likelihood of a genetic predisposition to cancer and the option of genetic testing. Genetic counselor JOY Dillon was present for today's visit, with Martha's permission. Reason for referral/Chief complaint Personal history of breast cancer and family history of ovarian cancer. 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 She is following with Dr. Patel for her treatment with neoadjuvant ddAC-T. Martha had previously completed genetic testing in 2018 through [facility] which was negative for a known familial BRCA1 mutation that was first identified in Martha's sister with ovarian cancer. No genes beyond BRCA1 were included in this analysis. Martha denies any other personal history of genetic testing. Family History of Cancer Problem Relation Age of Onset Ovarian Cancer Mother 70 - 79 Ovarian Cancer Sister 59 Hereditary Breast and Ovarian Cancer Syndrome Sister BRCA1+ Cancer Maternal Grandmother widely metastatic, primary unknown Breast Cancer Neg Hx Maternal ethnic background is Faroese. Paternal ethnic background is , Monegasque Cuban. There is no known Ashkenazi Mandaeism ancestry. Genetic risk assessment Based on personal and/or family history, the likelihood that Martha would be found to have a mutation in a cancer predisposition gene is high enough to offer the option of genetic testing. Specifically, Martha meets NCCN criteria for BRCA1/2 testing due to her personal history of breast cancer and family history of ovarian cancer in her mother. Although Martha's sister with ovarian cancer was previously tested and was positive for a BRCA1 mutation for which Martha also tested and was negative, it was never confirmed whether her sister's mutation was maternally or paternally inherited. It is possible that Martha's sister inherited her BRCA1 mutation from their father, who had four brother and no s isters which could explain the lack of BRCA1-associated cancers, and their mother could have carried a different BRCA1/2 mutation that Martha could have also inherited. Given this possibility and the potential impacts to Martha's care as well as the care of her children, updated genetic testing to include full BRCA1 and BRCA2 sequencing and deletion/duplication analyses is recommended. The lifetime cancer risks and medical management recommendations associated with mutations in the BRCA1 and BRCA2 genes include high-risk breast cancer screening with mammography and breast MRIs vs prophylactic bilateral mastectomy, as well as prophylactic removal of the ovaries and fallopian tubes(bilateral salpingo-oophorectomy). Panel genetic testing for an inherited predisposition to cancer, including breast and ovarian cancer, was discussed. The risks, benefits and limitations of panel genetic testing were reviewed, specifically a high rate of identifying a variant of uncertain significance, lack of knowledge of cancer risk for newly identified, moderate risk genes included in the panel and lack of effective screening,as well as cancer risk for other cancers not observed in the family. We reviewed dominant inheritance, meaning that if a mutation is detected there is a 50% chance for Martha's children and siblings to have also inherited the same gene alteration. Martha notes that at least one of her daughters is considering genetic testing at this time. It was recommended that her daughters wait until Martha's updated genetic testing is completed as this will help inform them what testing is recommended, if any. We discussed the Genetic Information Nondiscrimination Act (COLETTE), a federal law prohibiting discrimination by health insurance companies and most employers based on genetic information. COLETTE does not apply to life insurance, disability insurance or long-term care insurance. More information about COLETTE may be found at [employer]org. Martha opted for testing with [facility]' CancerNext-Expanded +RNAinsight Panel, a next generation sequencing panel that simultaneously analyzes 71 genes, including BRCA1 and BRCA2, that contribute to increased risk for cancer. Martha was consented. Her blood sample will be drawn prior to her next infusion on 05/22/24 and sent to [facility]. Testing will take up to 3 weeks from when the lab receives the sample. Martha will be contacted via telephone once her test results become available. At that time, we will discuss with Martha the implications that this test result may have for her as well as her family members, review any recommendedscreening guidelines for cancer prevention and early detection, and answer any questions she may have. documented in this encounter Plan of Treatment Upcoming Encounters Date Type Department Care Team (Late st Contact Info) Description 07/02/2024 8:00 AM EST Appointment H[place]ology [place] [address] 07/02/2024 9:00 AM EST Office Visit Hematology [place] [address] Rosalba Patel MD [facility] [place] [address] 07/02/2024 10:30 AM EST Appointment Hematology [place] [address] 07/07/2024 10:30 AM EST TH Visit (TeleHealth) [place]ematology [place] [address] Hem/Onc, Clinic Pharmacist None 07/17/2024 9:00 AM EST Appointment Hematology [place] [address] 07/17/2024 10:00 AM EST Office Visit Hematology and Oncology at [place] [id number] Rosalba Patel MD [facility] [place] [address] 07/17/2024 11:30 AM EST Appointment Hematology and Oncology at [place] [id number] 07/30/2024 7:30 AM EST Appointment Hematology and Oncology at [place] [id number] 07/30/2024 8:30 AM EST Office Visit Hematology and Oncology at [place] [id number] Yamileth Nur APRN [facility] [place] [address] 07/30/2024 10:00 AM EST Appointment Hematology and Oncology at [place] [id number] 08/13/2024 8:00 AM EST Appointment Hematology [place] [address] 08/13/2024 9:00 AM EST Office Visit Hematology and Oncology at [place] [phone] Rosalba Patel MD [facility] [place] [place] [address] 08/13/2024 10:30 AM EST Appointment Hematology and Oncology at [place] [phone] Scheduled Referrals Name Type Priority Associated Diagnoses Orde r Schedule Referral to Familial Cancer Program (Genetics) Outpatient Referral Routine Malignant neoplasm of lower-outer quadrant of left breast of female, estrogen receptor positive Ordered: 04/30/2024 documented as of this encounter Visit Diagnoses Diagnosis Malignant neoplasm of lower-outer quadrant of left breast of female, estrogen receptor positive Family history of ovarian cancer Family history of malignant neoplasm of ovary Family history of BRCA1 gene positive Family history of genetic disease carrier documented in this encounter Care Teams Incubator Operator Relationship Specialty Start Date End Date Nat Nicolas APRN [address] [place] [address] PCP - General Family Medicine 04/02/24 documented as of this encounter
--- OUTSIDE RECORDS SUMMARY | 2024-06-21 16:12 | XMS_ITS | Encounter Summary ---
[place] [address] Care Team Providers Care Vision Care Associate Name Role Phone Nat Nicolas APRN Primary Care Provider Reason for Visit * Reason Comments Follow-up Encounter Details Date Type Department Care Team (Late st Contact Info) Description 05/22/2024 10:00 AM EDT Office Visit [place]ematology [place] [phone] Yamileth Nur APRN [facility] [place] [address] Malignant neoplasm of lower-outer quadrant of left breast of female, estrogen receptor positive; H/O insulin dependent diabetes mellitus; Examination prior to chemotherapy Social History Tobacco Use Types Packs/Day Years [...] Sign Reading Time Taken Comments Blood Pressure 125/78 05/22/2024 9:35 AM EDT Pulse 100 05/22/2024 9:35 AM EDT Temperature 36.4 ??C (97.5 ??F) 05/22/2024 9:35 AM ED T Respiratory Rate 18 05/22/2024 9:35 AM EDT Oxygen Saturation 100% 05/22/2024 9:35 AM EDT Inhaled Oxygen Concentration - - Weight 79.5 kg (175 lb 4.3 oz) 05/22/2024 9:35 A M EDT Height 164 cm (5' 4.57) 05/22/2024 9:35 AM EDT Body Mass Index 29.56 05/22/2024 9:35 AM EDT documented in this encounter Progress Notes * Yamileth Nur APRN - 05/22/2024 10:00 AM EDT Images from the original note were not included. [facility] Patient Name: Martha Rodriguez is a 59 y.o. female from [place], [place] (1 hour 10 min away). : 1965 Visit Date: 05/22/2024 PCP: Nat Nicolas APRN Breast surgical oncology: Lashay Amaral MD Radiation oncology: Referral pending Reason for visit: Scheduled f/up for C1D1 ddAC-T Summary: Martha Rodriguez is a 59 y.o. female with clinical Stage IIA ([id number]) multifocal invasive lobular carcinoma of the left breast, ER + / TX + / HER2 -, diagnosed on 03/06/2024. She presents today for neoadjuvant ddAC-T. DIAGNOSIS: Breast cancer pathology & staging: Clinical stage: [id number] Stage IIA Pathological stage: pending surgery Pathology: Invasive lobular carcinoma, grade 2, LVI-. Surgical pathology pending. Joel status: 4 abnormal axillary nodes, level I and II, seen on MRI - axillary u/s and biopsy 05/08/2024 positive for metastatic carcinoma Receptor status: ER positive (>90%, strong) TX positive (>70% strong) HER2 negative by FISH, total # signals for HER2 = 321, total # signals for CEP- 17 = 184; ratio = 1.7, Ave # HER2 signal/cell = 5.4 Oncotype DX RS: N/A Genetics: 02/22/2018- [facility] test for BRCA1 only ([facility]) - referred for updated testing - scheduled 05/19/2024 NGS: N/A Menopausal Status: Post-menopausal CURRENT TX: 05/08/2024 - C1D1 ddAC-T ONCOLOGIC HX: 03/06/2024-screening mammogram Left breast: [...] grade 2, LVI- ER positive (>90%, strong) TX positive (>70% strong) HER2 negative by FISH, [...] measuring 0.7cm - recommended 6-month f/up imaging 05/08- C1D1 ddAC-T Assessment & Plan: Martha Rodriguez is a 59 y.o. female with PMHx significant for but not limited to HTN, diabetes, migraines, medication non-compliance, and new diagnosis of multifocal invasive lobular carcinoma of the LEFT breast, ER+TX+Her2-, who presents today in scheduled follow-up for C1D1 ddAC-T. 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 positive, Martha is negative by report Review of Symptoms: As per HPI, all other systems were reviewed and are negative. Review of Systems - Oncology Allergies: Allergies as of 05/22/2024 - Review Complete 05/22/2024 Allergen Reaction Noted Sulfa (sulfonamide antibiotics) Rash 02/07/2022 Medical History: Past Medical History: Diagnosis Date HTN (hypertension) 02/14/2013 Migraine headache 02/14/2013 Current Medications: Current Outpatient Medications Medication Sig [...] tablet Take 25 mg by mouth daily. Surgical History: Past Surgical History: Procedure Laterality Date IR MEDIPORT PLACEMENT 05/05/2024 IR Mediport Placement 05/05/2024 Debra Tamayo PA [facility] INTERVENTIONL RAD MAMMO US BIOPSY LEFT Left 04/02/2024 Mammo Us Biopsy Left 04/02/2024 Dorota Anderson MD [facility] RAD MAMMOGRAPHY MAMMO US BIOPSY LYMPH NODE LEFT Left 05/08/2024 Mammo US Biopsy Lymph Node Left 05/08/2024 Olive Garcia MD [facility] RAD MAMMOGRAPHY Family History: Family History Problem (# of Occurrences) Relation (Name,Age of Onset) Cancer (1) Maternal Grandmother: widely metastatic, primary unknown Ovarian Cancer (2) Mother (70 - 79), Sister (59) Hereditary Breast and Ovarian Cancer Syndrome (1) Sister: BRCA1+ Negative family history of: Breast Cancer Social History: reports that she has never smoked. She has never used smokeless tobacco. She reports that she does not drink alcohol and does not use drugs. Physical Exam: Vital signs and weight : [...] Chest wall: Mass (Axillary nodes are matted (left)) present. No tenderness, edema or bony tenderness. Breasts: No breast swelling. Right: No inverted nipple, mass or skin change. Left: Inverted nipple, mass and tenderness present. No skin change. Abdominal: [...] ALBUMIN 4.2 05/22/2024 PROT 7.0 05/22/2024 Pathology: Biopsy - Pathology : Status: Final result Visible to patient: Yes (not seen) Next appt: 04/25/2024 at 10:35 AM in Lab ([facility]) Dx: Abnormal finding on breast imaging 0 Result Notes Component Ref Range & Units Case Report Surgical Pathology Report Case: [id number] Authorizing Provider: Dorota Anderson MD Collected: 04/02/2024 0912 Ordering Location: Mammography at [facility] Received: 04/02/2024 1254 Pathologist: Keyla Rodas DO Specimen: Breast, Left, LEFT BREAST US BX Final Diagnosis A. Left breast, core needle biopsy: - Invasive lobular carcinoma, intermediate grade (modified SBR score = 7), measuring at least 14 mm. - Lymphovascular invasion not identified. at 1151 Additional Studies Estrogen Receptor (ER) immunoreactivity: Positive Cancer cells with immunostaining: >90% Stain intensity: Strong Progesterone Receptor (TX) immunoreactivity: Positive Cancer cells with immunostainin% Stain intensity: Strong HER2 FISH: separate report to follow Task ID IHC/Special Stains Result A1-8 Synaptophysin Focal nonspecific staining A1-9 Chromogranin A Negative A1-10 E-Cadherin Predominantly negative, focal weak, granular, cytoplasmic staining *Diagnostic jean-baptiste for hormone receptors (ASCO/CAP GUIDELINES, 2020): Negative immunoreactivity: <1% tumor cells with immunostaining Positive immunoreactivity: >=1% tumor cells with immunostaining Low Positive: 1-10% tumor cells with immunostaining* *There are limited data on the overall benefit of endocrine therapies for patients with low level (1-10%) ER expression, but they currently suggest possible benefit, so patients are considered eligible for endocrine treatment. There are data that suggest invasive cancers with these results are heter ogeneous in both behavior and biology and often have gene expression profiles more similar to ER-negative cancers. Disclaimer(s) Formalin-fixed, paraffin-embedded tissue sections are studied using the polymer technique with appropriate positive and negative controls. These IHC studies provide the pathologist with adjunctive diagnostic information. Antibody specificity has been verified by testing antibodies on a series of in-house tissues with known immunohistochemical performance characteristics. The clinical interpretation of any antibody positive staining or its absence is evaluated within the context of clinical presentation, morphology, histopathological criteria and other diagnostic tests. Immunohistochemical assays were performed on paraffin-embedded tissue sections fixed in 10% neutralbuffered formalin for 6-72 hours using the polymer system technique with appropriate controls. The assays were performed according to the director of officiating's instructions using Anti-ER (SP1) and Anti-TX (16) antibodies. These tests were developed and their performance characteristics determined by [facility]. They may not have been cleared or approved by the US Food and Drug Administration. The FDA does not require such tests to go through premarket FDA review. These tests are used for clinical purposes and should not be regarded as investigational or for research. This laboratory is certified under the Clinical Laboratory Improvement Amendments (CLIA) as qualified to perform high complexity clinical laboratory testing. Clinical Information A. Breast, Left, LEFT BREAST US BX Mass Rule out malignancy LEFT BREAST US BX Gross Description A. Breast, Left, LEFT BREAST US BX. A - Labeled/Fixative: Left breast ultrasound biopsy, formalin. Quantity/Size: Two, 0.7 x 0.2 cm-1.5 x 0.2 cm Tissue Description: [place]-white fibrofatty needle core biopsies. Sections/Processing: Entirely submitted in 1 cassette labeled A1. Ischemic time: 1 minute ajw Result Note THIS RESULT REQUIRES PHYSICIAN/KINGS FOLLOW UP Abnormal Resulting Agency [facility] Specimen Collected: 04/02/24 09:12 Last Resulted: 04/04/24 11:51 Surgical Pathology s/p definitive breast surgery: Pending Breast Imaging: Screening mammogram: Diagnostic mammogram and U/S: Status: Final result Visible to patient: Yes (not seen) Next appt: 04/25/2024 at 10:35 AM in Lab ([facility]) Dx: Mass of left breast, unspecified quad... 0 Result Notes Details Reading Physician Reading Date Result Priority Dorota Anderson MD [phone] 2501 03/10/2024 Narrative & Impression INTERPRETATION OF OUTSIDE BREAST IMAGING I have been asked to consult on this patient by Dr. Nicolas because he/she believes a review of this study may change or alter the care of this patient. STUDIES FROM: [facility] CLINICAL HISTORY: ? bx; Sending Institution [facility]; Date of exam [id number]; I believe a reinterpretation of this exam may alter care of Patient. Yes; Left breast mass, nipple retraction, Cat 5. DATES and TYPE OF EXAM: Bilateral screening mammograms from 03/06/2024 and ultrasound from the same date VIEWS: Bilateral CC, bilateral MLO COMPARISONS: Multiple priors BREAST DENSITY: There are scattered areas of fibroglandular density FINDINGS: RIGHT breast: Normal and unchanged LEFT breast: There is approximately 2.5 cm spiculated mass in the mid lateral aspect of the LEFT breast with architectural distortion and nipple retraction. Extending inferior and medial from this mass are a few scattered fine pleomorphic microcalcifications which are likely additional sites of malignancy Ultrasound of this mass showed a concordant 2.5 cm hypoechoic shadowing avascular spiculated mass DIAGNOSTIC SUMMARY: LEFT BREAST LESION #1 2.5 cm Mass Lower Outer Quadrant 3 OClock 4 cm from the nipple INTERPRETATION: BI-RADS 5. Highly suspicious for malignancy MANAGEMENT: Ultrasound-guided biopsy of the LEFT breast mass. I would recommend magnification views are obtained of the area of LEFT breast microcalcifications at the time of biopsy, as depending on future management and staging these may need to be biopsied * Regular screening mammograms starting between age 40 and 50 reduces the risk of from breast cancer. * All screening tests have both risks and benefits. These risks and benefits should be assessed for each individual patient through discussion with their provider to determine their preferred breast cancer screening schedule. * Women should report any breast changes to a health care provider right away. * Some women, because of their family history, a genetic tendency, or other factors, should be screened with annual breast MRI as well as with mammograms. (The number of women who fall into this category is very small). Patients and health care providers should discuss each patients history to decide if earlier screening and/or breast MRI are appropriate. * Screening should continue as long as a woman is in good health and is expected to live 10 years or longer. * Screening mammography may not detect 10-15% of breast cancers. Please note: The interpretation of the [facility] Breast Imaging Radiologist subspecialist may differ from the original radiologists interpretation. This is usually not due to a deficiency of the original interpreting radiologist, rather due to the greater skill level afforded by sub-specialization in the field and/or reasonable variations in interpretations. If you have a concern regarding the D- interpretation you may contact the [facility] Breast Chief Lifestyle Officer Office at . Thank you for letting us participate in the care of this patient. If you are a health care provider and have any questions regarding this report, please contact the number below. For patients who have questions please contact the health spiritual care coordinator that requested your imaging first. Electronically signed by: Dorota Anderson MD, [facility] ([phone]), at 03/10/2024 2:42 PM Component 1 mo ago WORKSTATION ID [id number] Resulting Agency [facility] Exam Ended: 03/10/24 07:30 Last Resulted: 03/10/24 14:42 MRI breast: Status: Final result Visible to patient: Yes (not seen) Next appt: 04/25/2024 at 10:35 AM in Lab ([facility]) Dx: Malignant neoplasm of left breast in ... 0 Result Notes Assessment Overall Left Right 0 - Incomplete: Needs Additional Imaging Evaluation 0 - Incomplete: Needs Additional Imaging Evaluation 0 - Incomplete: Needs Additional Imaging Evaluation Mammography Recommendations Recommendation Side Due Technical Repeat Bilateral Resolved Details Reading Physician Reading Date Result Priority Olive Garcia MD [phone] 2533 04/08/2024 Armond Amezcua MD 04/08/2024 Narrative & Impression EXAMINATION: MRI BREAST WWO CONTRAST BILAT CLINICAL INDICATION: new breast cancer. History of left breast ILC ER/TX positive TECHNIQUE: Multiplanar sequences were obtained pre- [...] patient will be contacted for additional images. IMPRESSION Nondiagnostic examination. The patient be contacted for [...] in the care of this patient. If you are a health care provider and have any questions regarding this report, please contact the number below. For patients who have questions please contact the health spiritual care coordinator that requested your imaging first. Electronically signed by: KALPESH Valerio [facility] ([phone]), at 04/08/2024 4:02 PM Component 2 wk ago WORKSTATION ID [id number] [facility]ing Agency [facility] Exam Ended: 04/08/24 10:00 Last Resulted: 09/17/24 16:02 Status: Final result Visible to patient: Yes (not seen) Next appt: 04/25/2024 at 10:35 AM in Lab ([facility]) Dx: Malignant neoplasm of lower-outer cole... 0 Result Notes Details Reading Physician Reading Date Result Priority Olive Garcia MD [phone] 2533 04/10/2024 Armond Amezcua MD 04/10/2024 Narrative & Impression EXAMINATION: MRI ADDITIONAL VIEW - BREAST CLINICAL INDICATION: new breast cancer - repeat imaging. Left breast ILC, ER-positive TX positive and HER-2 negative TECHNIQUE: Multiplanar sequences were obtained pre- and post- Dotarem enhancement, to include SPGR weighted dynamic run-off and subtraction sequences obtained after the intravenous administration of 16 ccs of Dotarem. Computer algorithm analysis for lesion detection and kinetic contrast enhancement curve analysis was performed, using buySAFE software. COMPARISON STUDIES: Compared and/or correlated with [...] Delayed phase: Washout LEFT BREAST LESION #2: 2.5 x 1.5 x 2.0 cm Mass - located 1.5 cm superiorly and 0.8 cm medially from the biopsy-proven malignancy. Upper central 12 O'Clock 1 cm above the nipple by MRI. Mass/post surgical change: Shape: Irregular Margins: Not circumscribed - Spiculated Enhancement: Heterogeneous Kinetics: Initial upslope: Fast Delayed phase: Washout LEFT BREAST LESION #3: 7.6 [...] is present anteriorly within the mass. 2. Separate left breast spiculated mass measuring 2.5 cm in the central upper breast, which is located 1.5 cm superiorly and 0.8 cm medially to the biopsy-proven malignancy (lesion #2). 3. Extensive regional nonmass enhancement concerning for malignancy with [...] was not included within the examination. 5. Right lower inner quadrant, middle third, 0.8 cm oval mass which demonstrates T2 hyperintensity, for which MRI directed ultrasound recommended. If this lesion is not seen by ultrasound, MRI guided biopsy recommended. 6. No right axillary or internal mammary adenopathy. RECOMMENDATION: * Definitive surgical/oncologic management of known left breast malignancy. There is nipple involvement as well as foci of enhancement within the far posterior central left breast. * If breast conservation therapy is being considered, MRI guided biopsy of left breast lesion #2 recommended. * Morphologically abnormal left axillary lymph nodes. Diagnostic ultrasound [...] in the care of this patient. If you are a health care provider and have any questions regarding this report, please contact the number below. For patients who have questions please contact the health spiritual care coordinator that requested your imaging first. Electronically signed by: Olive Garcia [facility] ([phone]), at 04/10/2024 12:28 PM Component 13 d ago WORKSTATION ID [id number] Resulting Agency [facility] Exam Ended: 04/09/24 14:20 Last Resulted: 04/10/24 12:28 Annual mammogram: Per surgery; not yet due. Schedule pending surgical date. Imaging: CT C/A/P with contrast: Status: Final result Visible to patient: Yes (seen) Next appt: 05/08/2024 at 07:35 AM in Radiology (Mammo Room) Dx: Malignant neoplasm of left breast in ... 0 Result Notes Details Reading Physician Reading Date Result Priority Anamaria Lopez MD [phone] 2954 04/28/2024 Narrative & Impression EXAMINATION: CT CHEST ABDOMEN PELVIS W CONTRAST [...] breast mass as seen by MRI. 2. Left axillary lymphadenopathy highly suspicious for joel metastases. 3. Asymmetric borderline enlarged left retroclavicular lymph nodes may also be metastatic. Thank you for letting us participate in the care of this patient. If you are a health care provider and have any questions regarding this report, please contact the number below. For patients who have questions please contact the health spiritual care coordinator that requested your imaging first. Electronically signed by: ANAMARIA LOPEZ MD, [facility] ([phone]), at 04/28/2024 10:09 AM Component 12 d ago WORKSTATION ID [id number] [facility]ing [facility] Exam Ended: 04/25/24 13:50 Last Resulted: 04/28/24 10:09 Bone scan: Status: Final result Visible to patient: Yes (seen) Next appt: 05/08/2024 at 07:35 AM in Radiology (Mammo Room) Dx: Malignant neoplasm of left breast in ... 0 Result Notes Details Reading Physician Reading Date Result Priority Jay Loyola MD [phone] 200604/29/2024 Kalie Jorgensen MD [phone] 36504/29/2024 Narrative & Impression EXAMINATION: NM BONE SCAN WHOLE BODY CLINICAL [...] in the care of this patient. If you are a health care provider and have any questions regarding this report, please contact the number below. For patients who have questions please contact the health spiritual care coordinator that requested your imaging first. Electronically signed by: Jay Loyola MD, [facility] ([phone]), at 04/29/2024 11:33 AM Component 8 d ago WORKSTATION ID [id number] Resulting Agency Rad Exam Ended: 04/29/24 10:53 Last Resulted: 04/29/24 11:[address]: N/A DEXA scan: Pending Cardiac oncology: EKG: N/A [...] tricuspid regurgitation. No prior study for comparison. Counseling: Total time spent: 40 minutes with > 50% spend in discussion of above, [id number] time and coordination of care with the patient today Records were reviewed which included imaging ( mammogram, US, MRI, PET/CT, Ultrasounds that were non breast, CTs, ), surgical reports, pathology reports and physician notes. The patient was counseled extensively. We discussed the results of all recent diagnostic tests and what these results mean. We discussed the prognosis of the disease. We discussed the risks and benefits of the treatment plan at length. The patient was given instruction for treatment and the follow up appointments were reviewed. We reviewed all the medications and educated the patient about their appropriate uses. The importance of compliance with all medications and instruction was emphasized. All aspects of the plan were discussed with the patient. The patient was given opportunities to askquestions, which we answered. Martha Rodriguez has endorsed agreement and understanding of the treatment plan. ASCO Quality Metrics -Toxicity: Potential toxicities of therapy discussed in length with patient. Patient educated on symptom management interventions. -Pain Plan: Pain score noted in vitals above. -Fertility Risk: Post-menopausal -Advanced Care Planning: Not discussed on this visit -Oral Chemotherapy: N/A -Patient asked to Call the team with concerning symptoms and if being admitted to other hospitals. Patient to contact team via my portal or triage line with non urgent questions and concerns. Yamileth Nur, RUDDY, ELECTRICIAN, NP- Women's Health Nurse Practitioner Breast Oncology Pager: [phone] [facility] documented in this encounter Plan of Treatment Upcoming Encounters Date Type Department Care Team (Late st Contact Info) Description 07/02/2024 8:00 AM EST Appointment Hematology and Oncology at [place] [phone] 07/02/2024 9:00 AM EST Office Visit [place]ology [place] [phone] Rosalba Patel MD [facility] [place] [address] 07/02/2024 10:30 AM EST Appointment [place] [phone] 07/07/2024 10:30 AM EST TH Visit (TeleHealth) [place] [phone] Hem/Onc, Clinic Pharmacist None 07/17/2024 9:00 AM EST Appointment [place] [phone] 07/17/2024 10:00 AM EST Office Visit [place]ology [place] [phone] Rosalba Patel MD [facility] [place] [address] 07/17/2024 11:30 AM EST Appointment [place]ology [place] [phone] 07/30/2024 7:30 AM EST Appointment [place]ology [place] [address] 07/30/2024 8:30 AM EST Office Visit [place] [address] Yamileth Nur APRN [facility] [place] [address] 07/30/2024 10:00 AM EST Appointment [place]ology [place] [address] 08/13/2024 8:00 AM EST Appointment [place]ology [place] [address] 08/13/2024 9:00 AM EST Office Visit [place] [address] Rosalba Patel MD [facility] [place] [address] 08/13/2024 10:30 AM EST Appointment [place]ology [place] [address] documented as of this encounter Visit Diagnoses Diagnosis Malignant neoplasm of lower-outer quadrant of left breast of female, estrogen receptor positive H/O insulin dependent diabetes mellitus Personal history of other endocrine, metabolic, and immunity disorders Examination prior to chemotherapy Other specified pre-operative examination documented in this encounter Care Teams Vision Care Associate Relationship Specialty Start Date End Date Nat Nicolas APRN [address] [place] [address] PCP - General Family Medicine 04/02/24 documented as of this encounter
--- OUTSIDE RECORDS SUMMARY | 2024-06-21 16:12 | XMS_ITS | Encounter Summary ---
[place] [address] Care Team Providers Care Director Of Security Name Role Phone Nat Nicolas APRN Primary Care Provider Reason for Visit * Reason Comments Chemotherapy Adriamycin/cytoxan * Treatment/Therapy Plan Authorization (Routine) - Authorized Specialty Diagnoses / Procedures Referred By Laurel t Referred To Contact Hematology and Oncology Diagnoses Malignant neoplasm of lower-outer quadrant of left breast of female, estrogen receptor positive Type 2 diabetes mellitus without complication, without long-term current use of insulin Rosalba Patel MD [facility] [place] [address] [address] Referral ID Status Reason Start Date Expiration Date V isits Requested Visits Authorized [id number] Authorized 04/29/2024 04/29/2025 99 107 Encounter Details Date Type Department Care Team (Latest Contact Info) Description 06/04/2024 8:55 AM EST - 06/04/2024 8:57 AM EST Hospital Encounter Hematology [place] [address] Malignant neoplasm of lower-outer quadrant [...] as of this encounter Progress Notes * Shannon Madrigal RN - 06/04/2024 3:49 PM EST Patient Name: Martha Rodriguez Patient Age: 59 y.o. Birthdate: 1965 Admit date: 06/04/2024 Attending Physician: Lucy att. providers found TIME TREATMENT STARTED: 1435 TIME TREATMENT ENDED: 1610 Martha Rodirguez, 59 y.o. female with diagnosis of 1. Malignant neoplasm of lower-outer quadrant of left breast of female, estrogen receptor positive 2. Type 2 diabetes mellitus without complication, without long-term current use of insulin is here for chemotherapy infusion of adriamycin/cytoxan w/ neulasta onpro application. PROTOCOL: n/a CYCLE: 3 DAY: 1 S: Pt. offers no complaints at this time. Reviewed plan of care for infusion visit, patient verbalized understanding of plan as outlined. O: Chemotherapy orders independently verified for correct drug name, route and dosage per patient'sheight, weight and BSA by Shannon Madrigal RN, RN and onsite pharmacist. Chemotherapy administered per protocol. REACTIONS (DESCRIPTION, TIME, INTERVENTION AND EFFECTIVENESS) none A: Pt. Tolerated treatment without issue. Martha Rodriguez confirms that all questions and issues havebeen addressed. Onpro flashing green, reads 'full' at discharge, patient verbalizes understanding of instructions. P: Return to clinic as scheduled. documented in this encounter Plan of Treatment Upcoming Encounters Date Type Department Care Team (Late st Contact Info) Description 07/02/2024 8:00 AM EST Appointment Hematology [place] [address] 07/02/2024 9:00 AM EST Office Visit Hematology [place] [address] Rosalba Patel MD [facility] [place] [address] 07/02/2024 10:30 AM EST Appointment Hematology [place] [address] 07/07/2024 10:30 AM EST TH Visit (TeleHealth) Hematology [place] [address] Hem/Onc, Clinic Pharmacist None 07/17/2024 9:00 AM EST Appointment Hematology [place] [address] 07/17/2024 10:00 AM EST Office Visit Hematology [place] [address] Rosalba Patel MD [facility] [place] [address] 07/17/2024 11:30 AM EST Appointment Hematology [place] [address] 07/30/2024 7:30 AM EST Appointment Hematology [place] [address] 07/30/2024 8:30 AM EST Office Visit Hematology [place] [address] Yamileth Nur APRN [facility] [place] [address] 07/30/2024 10:00 AM EST Appointment Hematology [place] [address] 08/13/2024 8:00 AM EST Appointment Hematology [place] [address] 08/13/2024 9:00 AM EST Office Visit Hematology [place] [address] Rosalba Patel MD [facility] [place] [address] 08/13/2024 10:30 AM EST Appointment Hematology [place] [address] documented as of this encounter Procedures Procedure Name Priority Date/Time Associated Diagnosis Comments POC, GLUCOSE Routine 06/04/2024 2:38 PM EST documented in this encounter Results * (ABNORMAL) POC, GLUCOSE (06/04/2024 2:38 PM EST) Glucometer, POC 350(H) 65 - 199 mg/dL 06/04/2024 2:41 PM EST [facility] Comment:Supplemental ranges: <140 mg/dL before meals <180 mg/dL all other times of the day. Blood CAPILLARY BLOOD / Unknown 06/04/2024 2:38 PM EST 06/04/2024 2:41 PM EST Unknown POINT OF CARE TEST O RDERABLES [facility] [place] [address] * (ABNORMAL) Cancer antigen 15-3 (06/04/2024 9:07 AM EST) CA 15-3 30(H) <=25 unit/mL 06/04/2024 10:13 AM EST [facility] Comment:This result was gene rated using a Tani Elías immunoassay. Results obtained from other methods or manufacturers cannot be used interchangeably with this method. Blood VENOUS BLOOD SPECIMEN / Unknown Mediport Line / Unknown 06/04/2024 9:07 AM EST 06/04/2024 9:29 AM EST Rosalba Patel MD CHEMISTRY ORDERABLES [facility] [place] [address] * (ABNORMAL) Comprehensive metabolic panel Non-fasting (06/04/2024 9:07 AM EST) Glucose 253(H) 65 - 199 mg/dL 06/04/2024 10:04 AM [facility] Comment:Glucose Concentratio n >=200 mg/dL plus symptoms is consistent with Diabetes Mellitus. Blood Urea Nitrogen 12 8 - 18 mg/dL 06/04/2024 10:04 AM [facility] Creatinine 0.47(L) 0.70 - 1.20 mg/dL 06/04/2024 10:04 AM [facility] Sodium 138 135 - 145 mMol/L 06/04/2024 10:04 AM [facility] Potassium 4.0 3.5 - 5.0 mMol/L 06/04/2024 10:04 AM [facility] Chloride 101 98 - 107 mMol/L 06/04/2024 10:04 AM [facility] Carbon Dioxide 25 22 - 31 mMol/L 06/04/2024 10:04 AM [facility] Anion Gap 12 5 - 15 mMol/L 06/04/2024 10:04 AM [facility] Calcium 9.1 8.5 - 10.5 mg/dL 06/04/2024 10:04 AM [facility] Protein, Total 6.8 6.1 - 8.0 g/dL 06/04/2024 10:04 AM [facility] Albumin 4.2 3.2 - 5.2 g/dL 06/04/2024 10:04 AM [facility] Aspartate Aminotransferase 11 <=30 unit/L 06/04/2024 10:04 AM [facility] Alanine Aminotransferase 23 0 - 30 unit/L 06/04/2024 10:04 AM [facility] Alkaline Phosphatase 196(H) 35 - 105 unit/L 06/04/2024 10:04 AM [facility] Bilirubin, Total 0.2 <=1.3 mg/dL 06/04/2024 10:04 AM [facility] Est Glomerular Filtration Rate - Female 109 mL/min/1. 73 m?? 06/04/2024 10:04 AM [facility] Comment: This patient's estimated GFR [...] Calculator [employer] Fasting Status No 06/04/2024 10:04 AM [facility] Blood VENOUS BLOOD SPECIMEN / Unknown Mediport Line / Unknown 06/04/2024 9:07 AM EST 06/04/2024 9:29 AM EST Rosalba Patel MD CHEMISTRY ORDERABLES [facility] [place] [address] * (ABNORMAL) CBC (with Diff) (06/04/2024 9:07 AM EST) White Blood Cell 13.39(H) 4.00 - 9.50 x10(3)/mc L 06/04/2024 10:30 AM EST [facility] Red Blood Cell 4.15 4.00 - 5.21 x10(6)/mc L 06/04/2024 10:30 AM [facility] Hemoglobin 12.8 11.7 - 15.5 g/dL 06/04/2024 10:30 AM [facility] Hematocrit 37.1 35.7 - 45.8 % 06/04/2024 10:30 AM [facility] Mean Cell Volume 89.4 82.6 - 94.4 fL 06/04/2024 10:30 AM [facility] Mean Cell Hemoglobin 30.8 27.1 - 32.0 pg 06/04/2024 10:30 AM [facility] Mean Cell Hemoglobin Concentration 34.5 31.7 - 35.0 g/dL 06/04/2024 10:30 AM [facility] Platelet 235 145 - 357 x10(3)/mc L 06/04/2024 10:30 AM [facility] Mean Platelet Volume 10.9 7.6 - 12.9 fL 06/04/2024 10:30 AM [facility] RDW Standard Deviation 38.5 37.0 - 46.0 fL 06/04/2024 10:30 AM [facility] RDW coefficient of variation 12.2 11.5 - 14.1 % 06/04/2024 10:30 AM [facility] NRBC% auto 0.4 % 06/04/2024 10:30 AM [facility] NRBC Absolute 0.06(H) <0.01 x10(3)/mc L 06/04/2024 10:30 AM [facility] Neutrophil % 62.1 % 06/04/2024 10:30 AM [facility] Comment:This is an appended report. These results have been appended to a previously preliminary verified report. Neutrophil Absolute (ANC) - Automated 8.32(H) 1.70 - 6.10 x10(3)/mc L 06/04/2024 10:30 AM [facility] Comment:This is an appended report. These results have been appended to a previously preliminary verified report. Lymph % 15.0 % 06/04/2024 10:30 AM [facility] Comment:This is an appended report. These results have been appended to a previously preliminary verified report. Lymph Absolute 2.01 0.90 - 3.20 x10(3)/mc L 06/04/2024 10:30 AM [facility] Comment:This is an appended report. These results have been appended to a previously preliminary verified report. Monocyte % 6.8 % 06/04/2024 10:30 AM [facility] Comment:This is an appended report. These results have been appended to a previously preliminary verified report. Monocyte Absolute 0.91(H) 0.30 - 0.90 x10(3)/mc L 06/04/2024 10:30 AM [facility] Comment:This is an appended report. These results have been appended to a previously preliminary verified report. Eos % 0.4 % 06/04/2024 10:30 AM [facility] Comment:This is an appended report. These results have been appended to a previously preliminary verified report. Eos Absolute 0.05 0.00 - 0.40 x10(3)/mc L 06/04/2024 10:30 AM [facility] Comment:This is an appended report. These results have been appended to a previously preliminary verified report. Basophil % 1.4 % 06/04/2024 10:30 AM [facility] Comment:This is an appended report. These results have been appended to a previously preliminary verified report. Baso Absolute 0.19(H) 0.00 - 0.10 x10(3)/mc L 06/04/2024 10:30 AM [facility] Comment:This is an appended report. These results have been appended to a previously preliminary verified report. Immature Gran % 14.3 % 10:30 AM [facility] Comment:This is an appended report. These results have been appended to a previously preliminary verified report. Immature Gran Absolute 1.91(H) 0.00 - 0.04 x10(3)/mc L 06/04/2024 10:30 AM [facility] Comment:This is an appended report. These results have been appended to a previously preliminary verified report. Blood VENOUS BLOOD SPECIMEN / Unknown Mediport Line / Unknown 06/04/2024 9:07 AM EST 06/04/2024 9:29 AM EST Rosalba Patel MD HEMATOLOGY ORDERABLE S [facility] [place] [address] documented in this encounter Visit Diagnoses Diagnosis Malignant neoplasm of lower-outer quadrant of left breast of female, estrogen receptor positive Type 2 diabetes mellitus without complication, without long-term current use of insulin documented in this encounter Administered Medications Inactive Administered Medications - up to 3 most recent administrations Medication Order MAR Action Action Date Dose Rate Site aprepitant (Cinvanti) (7.2 mg/mL) injection emulsion 130 mg 130 mg, Intravenous, Administer over 2 Minutes, ONCE, 1 dose, On Sun06/04/24 at 1245, Alternative administration of IV push over 2 minutes is a recommendation from the rf engineer. Administer prior to chemotherapy., Routine Given 06/04/2024 3:02 PM EST 130 mg cycloPHOSphamide (Cytoxan) 1,140 mg in sodium chloride 0.9% 307 mL infusion 1,140 mg (600 mg/m2/dose ? 1.9 m2 Treatment Plan BSA from Recorded weight), Intravenous, ONCE, 1 dose, On Sun06/04/24 at 1345, Administer over 30 Minutes, Warning Vesicant/Irritant Medication New Bag 06/04/2024 3:26 PM EST 1,140 mg 614 mL/hr dexAMETHasone (Decadron) tablet 10 mg 10 mg, Oral, ONCE, 1 dose, On Sun06/04/24 at 1245, Administer prior to chemotherapy, Routine Given 06/04/2024 3:00 PM EST 10 mg DOXOrubicin (Adriamycin) injection 114 mg 114 mg (60 mg/m2/dose ? 1.9 m2 Treatment Plan BSA from Recorded weight), Intravenous, ONCE, 1 dose, On Sun06/04/24 at 1345, Administer each syringe over a minimum of 3 minutes per syringe. Warning Vesicant/Irritant Medication Given 06/04/2024 3:17 PM EST 114 mg insulin NPH human isophane (HumuLin N,NovoLIN N) (100 unit/mL) subcutaneous injection vial 5 Units 5 Units, Subcutaneous, ONCE, 1 dose, On Sun06/04/24 at 1245, Please give to reduce glucose spikes with dexamethasone, Routine Given 06/04/2024 3:05 PM EST 5 Units LORazepam (Ativan) tablet 0.5 mg 0.5 mg, Oral, ONCE, 1 dose, On Sun06/04/24 at 1245, Administer prior to chemotherapy, Routine Given 06/04/2024 2:59 PM EST 0.5 mg palonosetron (Aloxi) (0.05 mg/mL) injection 0.25 mg 0.25 mg, Intravenous, ONCE, 1 dose, On Sun06/04/24 at 1245, Administer over 30 seconds. Administer prior to chemotherapy, Routine Given 06/04/2024 3:01 PM EST 0.25 mg pegfilgrastim (Neulasta Onpro) (6 mg/0.6 mL) injection kit 6 mg 6 mg, Subcutaneous, ONCE, 1 dose, On Sun06/04/24 at 1245, Allow the prefilled syringe co-packaged with the on-body injector to reach room temperature at least 30 minutes prior to administration., Routine, This agent is restricted to outpatient use. Is this drug being given as an outpatient? Yes Given 06/04/2024 4:03 PM EST 6 mg Right Arm documented in this encounter Care Teams Director Of Security Relationship Specialty Start Date End Date Nat Nicolas APRN [address] [place] [address] PCP - General Family Medicine 04/02/24 documented as of this encounter
--- OUTSIDE RECORDS SUMMARY | 2024-06-21 16:12 | XMS_ITS | Encounter Summary ---
[place] [address] Care Team Providers Care Mechanical Engineering Lecturer Name Role Phone Maria Isabel Nat Malloy APRN Primary Care Provider Reason for Visit * Reason Onset Date Comments Results 06/09/2024 Encounter Details Date Type Department Care Team (Late st Contact Info) Description 06/09/2024 Telephone Hematology [place] [phone] Lázaro Fong V, [facility] Hematology/[place] [address] Results Social History Tobacco Use Types Packs/Day Years [...] on file documented as of this encounter Miscellaneous Notes * Telephone Encounter - Lázaro Fong [facility] - 06/09/2024 12:50 PM EST A copy of the test results have been scanned in the medical record and sent to Martha. A summary of the results is provided below. Please be advised that [place] law requires that all health care workers respect the confidentiality of this information and not pass it along to other health careproviders, insurance companies, or individuals without the written permission of the patient. The Familial Cancer Program welcomes any questions about these matters. Our phone number is: [phone]. On 05/19/2024 Martha was seen for genetic counseling and subsequently underwent genetic testing for a hereditary predisposition to cancers in eight major organ systems including breast, gynecologic, gastrointestinal, endocrine, genitourinary, skin, brain/nervous system, sarcoma and hematologic. Following are the results of this test. Result: [facility]'s CancerNext-Expanded +RNAinsight Panel showed no pathogenic mutations were detected. This means that Martha does not carry a mutation in the genes detectable by this test. The following 71 genes were analyzed: AIP, ALK, APC, LORI, BAP1, BARD1, BMPR1A, BRCA1, BRCA2, BRIP1, CDC73, CDH1, CDK4, CDKN1B, CDKN2A, CHEK2, DICER1, FH, FLCN, KIF1B, LZTR1, MAX, MEN1, MET, MLH1, MSH2, MSH6, MUTYH, NF1, NF2, NTHL1, PALB2, PHOX2B, PMS2, POT1, LILSE5S, PTCH1, PTEN, RAD51C, RAD51D, RB1, RET, SDHA, SDHAF2, SDHB, SDHC, SDHD, SMAD4, SMARCA4, SMARCB1, SMARCE1, STK11, SUFU, QZEB623, TP53, TSC1, TSC2 and VHL (sequencing and deletion/duplication); AXIN2, CTNNA1, EGFR, EGLN1, HOXB13, KIT, MITF, MSH3, PDGFRA, POLD1 and POLE (sequencing only); EPCAM and GREM1 (deletion/duplication only) Interpretation: This test did not identify an underlying genetic cause for the personal history of breast cancer orfamily history of ovarian cancer. Possible explanations for this negative test result include: Martha's cancer and the cancer in her family may be due to non genetic, environmental causes. There could be a mutation in Martha's family that Martha did not inherit. Martha's sister with ovarian cancer did previously test positive for a pathogenic BRCA1 gene mutation. While it was never confirmed that Martha's mother with ovarian cancer also carried the same mutation, the mutation in her sister was most likely maternally inherited based on the reported family history. There could be mutations in other cancer genes not included in this test, or in genes yet to be discovered. There is a very small chance that a pathogenic variant/mutation could be missed due to limitations in the testing. Based on these results, Martha's children do not need genetic testing for hereditary cancer risk dueto their maternal family history. If their father's family history is of concern, we would recommend further evaluation of that side of the family by a genetic counselor. Additional germline genetic testing for Martha is not recommended at this time. Screening Recommendations Based on genetic test results and personal and/or family history, we recommend: Breast cancer screening Clinical breast exams and imaging as recommended by Martha's oncologists. Gynecologic cancer screening Pelvic exams and/or Pap smears as recommended by Martha's competitive athlete or primary care provider. Given the family history of ovarian cancers are most likely both due to pathogenic BRCA1 mutations which Martha did not inherit, there is no indication that Martha would need surgical intervention for ovarian cancer risk reduction. Colon cancer screening Baseline colorectal cancer screening starting by age 45-50 is important for everyone, regardless ofgenetic predisposition. Periodic colonoscopy screening as recommended by Martha's turnaround engineer. Skin cancer screening Skin cancer screening and sun protection are important for everyone, regardless of genetic predisposition. Consideration of routine dermatologic/skin exams, as recommended by Martha's primary care provider or lens molding equipment operator. documented in this encounter Plan of Treatment Upcoming Encounters Date Type Department Care Team (Late st Contact Info) Description 07/02/2024 8:00 AM EST Appointment Hematology [place] [phone] 07/02/2024 9:00 AM EST Office Visit Hematology [place] [address] Rosalba Patel MD [facility] [place] [address] 07/02/2024 10:30 AM EST Appointment Hematology [place] [address] 07/07/2024 10:30 AM EST TH Visit (TeleHealth) Hematology [place] [address] Hem/Onc, Clinic Pharmacist None 07/17/2024 9:00 AM EST Appointment Hematology [place] [address] 07/17/2024 10:00 AM EST Office Visit Hematology [place] [address] Rosalba Patel MD [facility] [place] [address] 07/17/2024 11:30 AM EST Appointment Hematology [place] [address] 07/30/2024 7:30 AM EST Appointment Hematology [place] [address] 07/30/2024 8:30 AM EST Office Visit Hematology [place] [address] Yamileth Nur APRN [facility] [place] [address] 07/30/2024 10:00 AM EST Appointment Hematology [place] [address] 08/13/2024 8:00 AM EST Appointment Hematology [place] [address] 08/13/2024 9:00 AM EST Office Visit Hematology [place] [address] Rosalba Patel MD [facility] [place] [address] 08/13/2024 10:30 AM EST Appointment Hematology [place] [address] documented as of this encounter Visit Diagnoses Not on filedocumented in this encounter Care Teams Mechanical Engineering Lecturer Relationship Specialty Start Date End Date Nat Nicolas APRN [address] [place] [address] PCP - General Family Medicine 04/02/24 documented as of this encounter
--- OUTSIDE RECORDS SUMMARY | 2024-06-21 16:12 | XMS_ITS | Encounter Summary ---
Author Organization [facility] [place] [address] Care Team Providers Care Bottoming Room Inspector Name Role Phone Nat Nicolas APRN Primary Care Provider Encounter Details Date Type Department Care Team (Late st Contact Info) Description 05/26/2024 Notes [place] [address] Nat Hess MSW Social History Tobacco Use [...] Progress Notes * Nat Hess MSW - 05/26/2024 12:20 PM ESTSummary: Comprehensive Breast Program: Gynecologic Cancer Program: Social Work Note Per request from care team I reach out to Martha via her personal email account re: resources for hair/appearance. I provide promo codes to [employer] in case Martha would like to select a wig for $100 for free; I also provide information on [employer]avita Urias, including accepted insurance list and contact information. I encourage Martha to reach out to me with any questions about the provided resources or other questions. Completed today: Community Resource Wig/hair loss resources Nat ???Fide?? LAUREL Hess Social Work, Breast and Gynecology Oncology [email or web address] documented in this encounter Plan of Treatment Upcoming Encounters Date Type Department Care Team (Late st Contact Info) Description 07/02/2024 8:00 AM EST Appointment Hematology [place] [address] 07/02/2024 9:00 AM EST Office Visit Hematology [place] [address] Rosalba Patel MD [facility] [place] [address] 07/02/2024 10:30 AM EST Appointment Hematology [place] [address] 07/07/2024 10:30 AM EST TH Visit (TeleHealth) Hematology [place] [address] Hem/Onc, Clinic Pharmacist None 07/17/2024 9:00 AM EST Appointment Hematology [place] [address] 07/17/2024 10:00 AM EST Office Visit Hematology [place] [address] Rosalba Patel MD [facility] [place] [address] 07/17/2024 11:30 AM EST Appointment Hematology [place] [address] 07/30/2024 7:30 AM EST Appointment Hematology [place] [address] 07/30/2024 8:30 AM EST Office Visit Hematology and Oncology at [place] [phone] Yamileth Nur APRN [facility] [place] [address] 07/30/2024 10:00 AM EST Appointment Hematology [place] [address] 08/13/2024 8:00 AM EST Appointment Hematology [place] [address] 08/13/2024 9:00 AM EST Office Visit Hematology [place] [address] Rosalba Patel MD [facility] [place] [address] 08/13/2024 10:30 AM EST Appointment Hematology [place] [address] documented as of this encounter Visit Diagnoses Not on filedocumented in this encounter Care Teams Bottoming Room Inspector Relationship Specialty Start Date End Date Nat Nicolas APRN [address] [place] [address] PCP - General Family Medicine 04/02/24 documented as of this encounter
--- OUTSIDE RECORDS SUMMARY | 2024-06-21 16:12 | XMS_ITS | Encounter Summary ---
[place] [address] Care Team Providers Care Assembly Machine Set Up Mechanic Name Role Phone Nat Nicolas APRN Primary Care Provider Reason for Visit * Treatment/Therapy Plan Authorization (Routine) - Authorized Specialty Diagnoses / Procedures Referred By Contac t Referred To Contact Hematology and Oncology Diagnoses Malignant neoplasm of lower-outer quadrant of left breast of female, estrogen receptor positive Type 2 diabetes mellitus without complication, without long-term current use of insulin Rosalba Patel MD [facility] [place] [address] [address] Referral ID Status Reason Start Date Expiration Date V isits Requested Visits Authorized [id number] Authorized 04/29/2024 04/29/2025 99 [id number] Encounter Details Date Type Department Care Team (Latest Contact Info) Description 05/22/2024 8:32 AM EDT - 05/22/2024 11:59 PM EDT Hospital Encounter Hematology [place] [address] Malignant neoplasm of lower-outer quadrant [...] of this encounter Progress Notes * Shannon Al RN - 05/22/2024 2:08 PM EDT Patient Name: Martha Rodriguez Patient Age: 59 y.o. Birthdate: 1965 Admit date: 05/22/2024 Attending Physician: No att. providers found Martha Rodriguez, 59 y.o. female with diagnosis of 1. Malignant neoplasm of lower-outer quadrant of left breast of female, estrogen receptor positive is here for chemotherapy infusion of doxorubicin and cyclophosphamide with Neulasta OnPro. PROTOCOL: no CYCLE: 2 DAY: 1 S: Pt. offers no complaints at this time. Reviewed plan of care for infusion visit, patient verbalized understanding of plan as outlined. O: Chemotherapy orders independently verified for correct drug name, route and dosage per patient'sheight, weight and BSA by Shannon Al RN, pharmacy RN and onsite pharmacist. Chemotherapy administered per protocol. REACTIONS (DESCRIPTION, TIME, INTERVENTION AND EFFECTIVENESS) none A: Pt. Tolerated treatment with out issue. Martha Rodriguez confirms that all questions and issues have been addressed. P: Return to clinic as scheduled. documented in this encounter Plan of Treatment Upcoming Encounters Date Type Department Care Team (Late st Contact Info) Description 07/02/2024 8:00 AM EST Appointment H[place]ology [place] [address] 07/02/2024 9:00 AM EST Office Visit Hematology [place] [address] Rosalba Patel MD [facility] [place] [address] 07/02/2024 10:30 AM EST Appointment Hematology [place] [address] 07/07/2024 10:30 AM EST TH Visit (TeleHealth) [place]ematology [place] [address] Hem/Onc, Clinic Pharmacist None 07/17/2024 9:00 AM EST Appointment Hematology [place] [address] 07/17/2024 10:00 AM EST Office Visit Hematology [place] [address] Rosalba Patel MD [facility] [place] [address] 07/17/2024 11:30 AM EST Appointment Hematology [place] [address] 07/30/2024 7:30 AM EST Appointment Hematology [place] [address] 07/30/2024 8:30 AM EST Office Visit Hematology [place] [address] Yamileth Nur APRN [facility] [place] [address] 07/30/2024 10:00 AM EST Appointment Hematology [place] [address] 08/13/2024 8:00 AM EST Appointment Hematology [place] [address] 08/13/2024 9:00 AM EST Office Visit Hematology [place] [address] Rosalba Patel MD [facility] [place] [address] 08/13/2024 10:30 AM EST Appointment Hematology [place] [address] documented as of this encounter Results * Cancer antigen 15-3 (05/22/2024 9:01 AM EDT) CA 15-3 21 <=25 unit/mL 05/22/2024 10:24 AM EDT [facility] Comment:This result was gene rated using a Tani Elías immunoassay. Results obtained from other methods or manufacturers cannot be used interchangeably with this method. Blood VENOUS BLOOD SPECIMEN / Unknown Mediport Line / Unknown 05/22/2024 9:01 AM EDT 05/22/2024 9:34 AM EDT Rosalba Patel MD CHEMISTRY ORDERABLES [facility] [place] [address] * (ABNORMAL) Comprehensive metabolic panel Non-fasting (05/22/2024 9:01 AM EDT) Pathologist [facility] [place] Glucose 387(H) 65 - 199 mg/dL 05/22/2024 10:18 AM EDT [facility] Comment:Glucose Concentratio n >=200 mg/dL plus symptoms is consistent with Diabetes Mellitus. Blood Urea Nitrogen 17 8 - 18 mg/dL 05/22/2024 10:18 AM EDT [facility] Creatinine 0.59(L) 0.70 - 1.20 mg/dL 05/22/2024 10:18 AM EDT [facility] Sodium 134(L) 135 - 145 mMol/L 05/22/2024 10:18 AM EDT [facility] Potassium 4.0 3.5 - 5.0 mMol/L 05/22/2024 10:18 AM EDT [facility] Chloride 95(L) 98 - 107 mMol/L 05/22/2024 10:18 AM EDT [facility] Carbon Dioxide 26 22 - 31 mMol/L 05/22/2024 10:18 AM [facility] Anion Gap 13 5 - 15 mMol/L 05/22/2024 10:18 AM [facility] Calcium 9.4 8.5 - 10.5 mg/dL 05/22/2024 10:18 AM [facility] Protein, Total 7.0 6.1 - 8.0 g/dL 05/22/2024 10:18 AM [facility] Albumin 4.2 3.2 - 5.2 g/dL 05/22/2024 10:18 AM [facility] Aspartate Aminotransferase 13 <=30 unit/L 05/22/2024 10:18 AM [facility] Alanine Aminotransferase 57(H) 0 - 30 unit/L 05/22/2024 10:18 AM [facility] Alkaline Phosphatase 226(H) 35 - 105 unit/L 05/22/2024 10:18 AM [facility] Bilirubin, Total 0.2 <=1.3 mg/dL 05/22/2024 10:18 AM [facility] Est Glomerular Filtration Rate - Female 103 mL/min/1. 73 m?? 05/22/2024 10:18 AM [facility] Comment: This patient's estimated GFR was [...] Foundation Fasting Status No 05/22/2024 10:18 AM [facility] Blood VENOUS BLOOD SPECIMEN / Unknown Mediport Line / Unknown 05/22/2024 9:01 AM EDT 05/22/2024 9:34 AM EDT Rosalba Patel MD CHEMISTRY ORDERABLES [facility] [place] [address] * (ABNORMAL) CBC (with Diff) (05/22/2024 9:01 AM EDT) White Blood Cell 12.05(H) 4.00 - 9.50 x10(3)/mc L 05/22/2024 9:57 AM EDT [facility] Red Blood Cell 4.36 4.00 - 5.21 x10(6)/mc L 05/22/2024 9:57 AM EDT [facility] Hemoglobin 13.5 11.7 - 15.5 g/dL 05/22/2024 9:57 AM EDT [facility] Hematocrit 39.0 35.7 - 45.8 % 05/22/2024 9:57 AM EDT [facility] Mean Cell Volume 89.4 82.6 - 94.4 fL 05/22/2024 9:57 AM EDT [facility] Mean Cell Hemoglobin 31.0 27.1 - 32.0 pg 05/22/2024 9:57 AM EDT [facility] Mean Cell Hemoglobin Concentration 34.6 31.7 - 35.0 g/dL 05/22/2024 9:57 AM EDT [facility] Platelet 279 145 - 357 x10(3)/mc L 05/22/2024 9:57 AM EDT [facility] Mean Platelet Volume 11.3 7.6 - 12.9 fL 05/22/2024 9:57 AM EDT [facility] RDW Standard Deviation 37.2 37.0 - 46.0 fL 05/22/2024 9:57 AM EDT [facility] RDW coefficient of variation 11.6 11.5 - 14.1 % 05/22/2024 9:[facility] NRBC% auto 0.0 % 05/22/2024 9:57 AM [facility] NRBC Absolute <0.01 <0.01 x10(3)/mc L 05/22/2024 9:57 AM [facility] Neutrophil % 73.5 % 05/22/2024 9:57 AM [facility] Neutrophil Absolute (ANC) - Automated 8.85(H) 1.70 - 6.10 x10(3)/mc L 05/22/2024 9:57 AM [facility] Lymph % 16.5 % 05/22/2024 9:57 AM [facility] Lymph Absolute 1.99 0.90 - 3.20 x10(3)/mc L 05/22/2024 9:57 AM [facility] Monocyte % 4.8 % 05/22/2024 9:57 AM [facility] Monocyte Absolute 0.58 0.30 - 0.90 x10(3)/mc L 05/22/2024 9:57 AM [facility] Eos % 1.3 % 05/22/2024 9:57 AM [facility] Eos Absolute 0.16 0.00 - 0.40 x10(3)/mc L 05/22/2024 9:57 AM [facility] Basophil % 0.8 % 05/22/2024 9:57 AM [facility] Baso Absolute 0.10 0.00 - 0.10 x10(3)/mc L 05/22/2024 9:57 AM [facility] Immature Gran % 3.1 % 9:57 AM [facility] Immature Gran Absolute 0.37(H) 0.00 - 0.04 x10(3)/mc L 05/22/2024 9:57 AM [facility] Blood VENOUS BLOOD SPECIMEN / Unknown Mediport Line / Unknown 05/22/2024 9:01 AM EDT 05/22/2024 9:34 AM EDT Rosalba Patel MD HEMATOLOGY ORDERABLE S [facility] [place] [address] documented in this encounter Visit Diagnoses Diagnosis [...] over 2 Minutes, ONCE, 1 dose, On Millie 05/22/24 at 1345, Alternative administration of IV push over 2 minutes is a recommendation from the sand mixer. Administer prior to chemotherapy., Routine Given 05/22/2024 2:00 PM EDT 130 mg cycloPHOSphamide (Cytoxan) 1,140 mg in sodium chloride 0.9% 307 mL infusion 1,140 mg (600 mg/m2/dose ? 1.9 m2 Treatment Plan BSA from Recorded weight), Intravenous, ONCE, 1 dose, On Millie 05/22/24 at 1445, Administer over 30 Minutes, Warning Vesicant/Irritant Medication New Bag 05/22/2024 3:26 PM EDT 1,140 mg 614 mL/hr dexAMETHasone (Decadron) tablet 10 mg 10 mg, Oral, ONCE, 1 dose, On Millie 05/22/24 at 1345, Administer prior to chemotherapy, Routine Given 05/22/2024 1:59 PM EDT 10 mg DOXOrubicin (Adriamycin) injection 114 mg 114 mg (60 mg/m2/dose ? 1.9 m2 Treatment Plan BSA from Recorded weight), Intravenous, ONCE, 1 dose, On Millie 05/22/24 at 1445, Administer each syringe over a minimum of 3 minutes per syringe. Warning Vesicant/Irritant Medication Given 05/22/2024 3:20 PM EDT 114 mg LORazepam (Ativan) tablet 0.5 mg 0.5 mg, Oral, ONCE, 1 dose, On Millie 05/22/24 at 1345, Administer prior to chemotherapy, Routine Given 05/22/2024 1:59 PM EDT 0.5 mg palonosetron (Aloxi) (0.05 mg/mL) injection 0.25 mg 0.25 mg, Intravenous, ONCE, 1 dose, On Millie 05/22/24 at 1345, Administer over 30 seconds. Administer prior to chemotherapy, Routine Given 05/22/2024 1:59 PM EDT 0.25 mg pegfilgrastim (Neulasta Onpro) (6 mg/0.6 mL) injection kit 6 mg 6 mg, Subcutaneous, ONCE, 1 dose, On Millie 05/22/24 at 1345, Allow the prefilled syringe co-packaged with the on-body injector to reach room temperature at least 30 minutes prior to administration., Routine, This agent is restricted to outpatient use. Is this drug being given as an outpatient? Yes Given 05/22/2024 4:38 PM EDT 6 mg Right Arm documented in this encounter Care Teams Assembly Machine Set Up Mechanic Relationship Specialty Start Date End Date Nat Nicolas APRN [address] [place] [address] PCP - General Family Medicine 04/02/24 documented as of this encounter
--- OUTSIDE RECORDS SUMMARY | 2024-06-21 16:12 | XMS_ITS | Encounter Summary ---
[place] [address] Care Team Providers Care Dental Hygienist Name Role Phone Nat Nicolas APRN Primary Care Provider Reason for Visit * Treatment/Therapy Plan Authorization (Routine) - Authorized Specialty Diagnoses / Procedures Referred By Contgiuliana t Referred To Contact Hematology and Oncology Diagnoses Malignant neoplasm of lower-outer quadrant of left breast of female, estrogen receptor positive Type 2 diabetes mellitus without complication, without long-term current use of insulin Rosalba Patel MD [facility] [place] [address] [address] Referral ID Status Reason Start Date Expiration Date V isits Requested Visits Authorized [id number] Authorized 04/29/2024 04/29/2025 99 [phone] Encounter Details Date Type Department Care Team (Latest Contact Info) Description 06/18/2024 1:03 PM EST - 06/18/2024 11:59 PM EST Hospital Encounter Hematology [place] [address] Malignant neoplasm of lower-outer quadrant [...] tablet Take 25 mg by mouth daily. ondansetron (Zofran) 8 mg tablet Take 1 tablet by mouth every 8 hours as needed for Nausea. 20 tablet 2 06/18/2024 prochlorperazine (Compazine) 10 mg tablet Take 1 [...] Progress Notes * Shannon Al RN - 06/18/2024 4:02 PM EST Patient Name: Martha Rodriguez Patient Age: 59 y.o. Birthdate: 1965 Admit date: 06/18/2024 Attending Physician: No att. providers found Martha Rodriguez, 59 y.o. female with diagnosis of 1. Malignant neoplasm of lower-outer quadrant of left breast of female, estrogen receptor positive 2. Type 2 diabetes mellitus without complication, without long-term current use of insulin is here for chemotherapy infusion of adriamycin and cyclophosphamide with Neulasta OnPro. PROTOCOL: no CYCLE: 4 DAY: 1 S: Pt. offers no complaints [...] AM EST Appointment Hematology [place] [address] 07/02/2024 9:00 AM EST Office Visit Hematology [place] [address] Rosalba Patel MD [facility] [place] [address] 07/02/2024 10:30 AM EST Appointment Hematology [place] [address] 07/07/2024 10:30 AM EST TH Visit (TeleHealth) Hematology [place] [address] Hem/Onc, Clinic Pharmacist None 07/17/2024 9:00 AM EST Appointment Hematology [place] [address] 07/17/2024 10:00 AM EST Office Visit Hematology [place] [address] Rosalba Patel MD [facility] [place] [address] 07/17/2024 11:30 AM EST Appointment Hematology [place] [address] 07/30/2024 7:30 AM EST Appointment Hematology [place] [address] 07/30/2024 8:30 AM EST Office Visit Hematology [place] [address] Yamileth Nur APRN [facility] [place] [address] 07/30/2024 10:00 AM EST Appointment Hematology [place] [address] 08/13/2024 8:00 AM EST Appointment Hematology [place] [address] 08/13/2024 9:00 AM EST Office Visit Hematology [place] [address] Rosalba Patel MD [facility] [place] [address] 08/13/2024 10:30 AM EST Appointment Hematology [place] [address] documented as of this encounter Visit Diagnoses [...] over 2 Minutes, ONCE, 1 dose, On Sun06/18/24 at 1515, Alternative administration of IV push over 2 minutes is a recommendation from the computer aided design drafter. Administer prior to chemotherapy., Routine Given 06/18/2024 3:28 PM EST 130 mg cycloPHOSphamide (Cytoxan) 1,140 mg in sodium chloride 0.9% 307 mL infusion 1,140 mg (600 mg/m2/dose ? 1.9 m2 Treatment Plan BSA from Recorded weight), Intravenous, ONCE, 1 dose, On Sun06/18/24 at 1615, Administer over 30 Minutes, Warning Vesicant/Irritant Medication New Bag 06/18/2024 3:58 PM EST 1,140 mg 614 mL/hr dexAMETHasone (Decadron) tablet 10 mg 10 mg, Oral, ONCE, 1 dose, On Sun06/18/24 at 1515, Administer prior to chemotherapy, Routine Given 06/18/2024 3:28 PM EST 10 mg DOXOrubicin (Adriamycin) injection 114 mg 114 mg (60 mg/m2/dose ? 1.9 m2 Treatment Plan BSA from Recorded weight), Intravenous, ONCE, 1 dose, On Sun06/18/24 at 1615, Administer over 3 Minutes, Administer each syringe over a minimum of 3 minutes per syringe. Warning Vesicant/Irritant Medication Given 06/18/2024 3:53 PM EST 114 mg insulin NPH human isophane (HumuLin N,NovoLIN N) (100 unit/mL) subcutaneous injection vial 5 Units 5 Units, Subcutaneous, ONCE, 1 dose, On Sun06/18/24 at 1515, Please give to reduce glucose spikes with dexamethasone, Routine Given 06/18/2024 3:28 PM EST 5 Units Left Arm LORazepam (Ativan) tablet 0.5 mg 0.5 mg, Oral, ONCE, 1 dose, On Sun06/18/24 at 1515, Administer prior to chemotherapy, Routine Given 06/18/2024 3:45 PM EST 0.5 mg palonosetron (Aloxi) (0.05 mg/mL) injection 0.25 mg 0.25 mg, Intravenous, ONCE, 1 dose, On Sun06/18/24 at 1515, Administer over 30 seconds. Administer prior to chemotherapy, Routine Given 06/18/2024 3:28 PM EST 0.25 mg documented in this encounter Care Teams Dental Hygienist Relationship Specialty Start Date End Date Nat Nicolas, G[address] [place] [address] PCP - General Family Medicine 04/02/24 documented as of this encounter
--- OUTSIDE RECORDS SUMMARY | 2024-06-21 16:12 | XMS_ITS | Encounter Summary ---
Author Organization [facility] [place] [address] Care Team Providers Care Ore Crusher Name Role Phone Nicolas Nat Malloy APRN Primary Care Provider Encounter Details Date Type Department Care Team (Latest Contact Info) Description 05/22/2024 Travel Social History Tobacco Use Types Packs/Day [...] AM EST App[facility]ment [facility] [place] [address] 07/02/2024 9:00 AM EST Office Visit Hematology [place] [address] Rosalba Patle MD [facility] [place] [address] 07/02/2024 10:30 AM EST Appointment Hematology [place] [address] 07/07/2024 10:30 AM EST TH Visit (TeleHealth) [place]ematology [place] [address] Hem/Onc, Clinic Pharmacist None 07/17/2024 9:00 AM EST Appointment Hematology [place] [address] 07/17/2024 10:00 AM EST Office Visit [place]ematology [place] [address] Rosalba Patel MD [facility] [place] [address] 07/17/2024 11:30 AM EST Appointment Hematology [place] [address] 07/30/2024 7:30 AM EST Appointment Hematology [place] [address] 07/30/2024 8:30 AM EST Office Visit [place]ematology [place] [address] Yamileth Nur APRN [facility] [place] [address] 07/30/2024 10:00 AM EST Appointment Hematology [place] [address] 08/13/2024 8:00 AM EST Appointment Hematology [place] [address] 08/13/2024 9:00 AM EST Office Visit [place]ematology [place] [address] Rosalba Patel MD [facility] [place] [address] 08/13/2024 10:30 AM EST Appointment Hematology [place] [address] documented as of this encounter Visit Diagnoses Not on filedocumented in this encounter Care Teams Ore Crusher Relationship Specialty Start Date End Date Nat Nicolas, UNDERGRADUATE INTERN [address] [place] [address] PCP - General Family Medicine 04/02/24 documented as of this encounter
--- OUTSIDE RECORDS SUMMARY | 2024-06-21 16:12 | XMS_ITS | Encounter Summary ---
Author Organization [facility] [place] [address] Care Team Providers Care Management Manager Name Role Phone Nicolas Nat Malloy APRN Primary Care Provider Encounter Details Date Type Department Care Team (Latest Contact Info) Description 05/19/2024 Travel Social History Tobacco Use Types Packs/Day [...] AM EST Appointment [facility] [place] [address] 07/02/2024 9:00 AM EST Office Visit Hematology [place] [address] Rosalba Patel MD [facility] [place] [address] 07/02/2024 10:30 AM EST Appointment Hematology [place] [address] 07/07/2024 10:30 AM EST TH Visit (TeleHealth) Hematology [place] [address] Hem/Onc, Clinic Pharmacist None 07/17/2024 9:00 AM EST Appointment Hematology [place] [address] 07/17/2024 10:00 AM EST Office Visit Hematology [place] [address] Rosalba Patel MD [facility] [place] [address] 07/17/2024 11:30 AM EST Appointment Hematology [place] [address] 07/30/2024 7:30 AM EST Appointment Hematology [place] [address] 07/30/2024 8:30 AM EST Office Visit Hematology [place] [address] Yamileth Nur APRN [facility] [place] [address] 07/30/2024 10:00 AM EST Appointment Hematology [place] [address] 08/13/2024 8:00 AM EST Appointment Hematology [place] [address] 08/13/2024 9:00 AM EST Office Visit Hematology [place] [address] Rosalba Patel MD [facility] [place] [address] 08/13/2024 10:30 AM EST Appointment Hematology [place] [address] documented as of this encounter Visit Diagnoses Not on filedocumented in this encounter Care Teams Management Manager Relationship Specialty Start Date End Date Nat Nicolas, ENVELOPE ADJUSTER [address] [place] [address] PCP - General Family Medicine 04/02/24 documented as of this encounter
--- OUTSIDE RECORDS SUMMARY | 2024-06-21 16:12 | XMS_ITS | Encounter Summary ---
Author Organization [facility] [place] [address] Care Team Providers Care Clinical Social Work Therapist Name Role Phone Nat Nicolas APRN Primary Care Provider Encounter Details Date Type Department Care Team (Latest Contact Info) Description 05/08/2024 6:55 AM EDT Hospital En[place] [address] Dorota Anderson MD [facility] [place] [address] Abnormal finding on breast imaging Discharge Disposition: Home Social History Tobacco Use [...] tablet Take 25 mg by mouth daily. lisinopriL (Zestril) 20 mg Tablet Take 0.5 [...] 0 08/03/2013 documented as of this encounter Plan of Treatment Upcoming Encounters Date Type Department Care Team (Late st Contact Info) Description 07/02/2024 8:00 AM EST Appointment Hematology [place] [address] 07/02/2024 9:00 AM EST Office Visit Hematology [place] [address] Rosalba Patel MD [facility] [place] [address] 07/02/2024 10:30 AM EST Appointment Hematology [place] [address] 07/07/2024 10:30 AM EST TH Visit (TeleHealth) Hematology and Oncology at [place] [phone] Hem/Onc, Clinic Pharmacist None 07/17/2024 9:00 AM EST Appointment Hematology [place] [address] 07/17/2024 10:00 AM EST Office Visit Hematology and Oncology at [place] [phone] Rosalba Patel MD [facility] [place] [address] 07/17/2024 11:30 AM EST Appointment Hematology [place] [address] 07/30/2024 7:30 AM EST Appointment Hematology [place] [address] 07/30/2024 8:30 AM EST Office Visit Hematology and Oncology at [place] [phone] Yamileth Nur APRN [facility] [place] [address] 07/30/2024 10:00 AM EST Appointment Hematology [place] [address] 08/13/2024 8:00 AM EST Appointment Hematology [place] [address] 08/13/2024 9:00 AM EST Office Visit Hematology [place] [address] Rosalba Patel MD [facility] [place] [address] 08/13/2024 10:30 AM EST Appointment Hematology [place] [address] documented as of this encounter Procedures Procedure Name Priority Date/Time Associated Diagnosis Comments MAMMO US AXILLA LEFT Routine 05/08/2024 8:30 AM EDT Abnormal finding on breast imaging documented in this encounter Results * Mammo US Axilla Left (05/08/2024 8:30 AM EDT) WORKSTATION ID [id number] DH RAD Anatomical Region Laterality Modality [...] who have questions please contact the health skin care instructor that requested your imaging first. ? Narrative [...] day. Dorota Anderson MD IMG MAMMO ORDERABLES documented in this encounter Visit Diagnoses Diagnosis Abnormal finding on breast imaging Other (abnormal) findings on radiological examination of breast documented in this encounter Care Teams Clinical Social Work Therapist Relationship Specialty Start Date End Date Nat Nicolas APRN [address] [place] [address] PCP - General Family Medicine 04/02/24 documented as of this encounter
--- OUTSIDE RECORDS SUMMARY | 2024-06-21 16:12 | XMS_ITS | Encounter Summary ---
[place] [address] Care Team Providers Care Pleating Supervisor Name Role Phone Nat Nicolas APRN Primary Care Provider Encounter Details Date Type Department Care Team (Late st Contact Info) Description 05/12/2024 Telephone Hematology [place] [address] Caroline Bell, RN Social History Tobacco Use Types Packs/Day [...] encounter Miscellaneous Notes * Telephone Encounter - Caroline Bell RN - 05/12/2024 8:35 AM EDT Chemotherapy Follow-up Call Placed call to patient to assess tolerance of first time chemotherapy treatment. Regimen received: A/C dd and Onpro Date of treatment: 05/08 Assessment: Symptom Present (yes[y]/no[n]/ stable[s] from baseline) Additional information/Assessment GI Nausea Y mild Vomiting N Nausea medication N Tolerating diet Y Eating more frequently smaller portion meals Maintaining fluid intake (indicate volume) 7-8 glasses Bowel movements regular Y Diarrhea N Mouth sores N General Pain (0 none - 10 high) H/A daily since chemo Stayed home from work today Using pain medications tylenol No relief, was told to not take ibuprofen, has a history of H/A Fever N 98.7 Neuro Level of fatigue (0 - 5) 1 Falls N Numbness/tingling in arms/legs N Cognitive changes Y Sometimes it takes a minute to think of what I have say Skin Skin changes N Pinpoint red dots N Other s/s of bleeding N IV site/VAD problems N Musculoskeletal Joint swelling or tenderness Y mild Arthralgias or myalgias Y mild Voiding problems N Color and quality of urine Clear/yellow Adequate amount Cardio-pulmonary Shortness of breath N Chest pain N Swelling in legs N Calf pain or tenderness N Cough (productive/non-productive) N Psychosocial Coping Pt states she has a very good support system Need prescription renewals Other issues : H/A tylenol doesn't touch it balance issues sometimes, denies visual changes, HX of H/A Education provided:Fatigue- a little activity can increase energy, alternate rest/activity, stayinghydrated, accepting help from support team Plan: Will follow up with patient re H/A and options for relief Reinforced to patient/care-overnight caregiver to call facility 12/02 with any new/worsening signs and symptoms orconcerns or questions. Phone number provided. Pt verbalized understanding and is in agreement with plan. Per GENE Jade: If tylenol is not helping we generally say patient can try ibuprofen we will monitor labs with eachcycle and if anything is an issue we will discuss in clinic. She should start with the lowest dose that will help. Patient was called and was instructed it is OK to take ibuprofen and start at the lowest dose that will help. documented in this encounter Plan of Treatment Upcoming Encounters Date Type Department Care Team (Late st Contact Info) Description 07/02/2024 8:00 AM EST Appointment Hematology [place] [address] 07/02/2024 9:00 AM EST Office Visit Hematology [place] [address] Rosalba Patel MD [facility] [place] [address] 07/02/2024 10:30 AM EST Appointment Hematology [place] [address] 07/07/2024 10:30 AM EST TH Visit (TeleHealth) Hematology [place] [address] Hem/Onc, Clinic Pharmacist None 07/17/2024 9:00 AM EST Appointment Hematology [place] [address] 07/17/2024 10:00 AM EST Office Visit Hematology [place] [address] Rosalba Patel MD [facility] [place] [place] [address] 07/17/2024 11:30 AM EST Appointment Hematology [place] [address] 07/30/2024 7:30 AM EST Appointment Hematology [place] [address] 07/30/2024 8:30 AM EST Office Visit Hematology [place] [address] Yamileth Nur APRN [facility] [place] [address] 07/30/2024 10:00 AM EST Appointment Hematology [place] [address] 08/13/2024 8:00 AM EST Appointment Hematology [place] [address] 08/13/2024 9:00 AM EST Office Visit [place]ematology [place] [address] Rosalba Patel MD [facility] [place] [place] [address] 08/13/2024 10:30 AM EST Appointment Hematology [place] [address] documented as of this encounter Visit Diagnoses Not on filedocumented in this encounter Care Teams Pleating Supervisor Relationship Specialty Start Date End Date Nat Nicolas, MECHANICAL PENCILS ASSEMBLER [address] [place] [address] PCP - General Family Medicine 04/02/24 documented as of this encounter
--- OUTSIDE RECORDS SUMMARY | 2024-06-21 16:12 | XMS_ITS | Encounter Summary ---
[place] [address] Care Team Providers Care [employer] Name Role Phone Nat Nicolas APRN Primary Care Provider Reason for Visit * Treatment/Therapy Plan Authorization (Routine) - Authorized Specialty Diagnoses / Procedures Referred By Contac t Referred To Contact Hematology and Oncology Diagnoses Malignant neoplasm of lower-outer quadrant of left breast of female, estrogen receptor positive Type 2 diabetes mellitus without complication, without long-term current use of insulin Rosalba Patel MD [facility] [place] [address] [address] Referral ID Status Reason Start Date Expiration Date V isits Requested Visits Authorized [id number] Authorized 04/29/2024 04/29/2025 99 107 Encounter Details Date Type Department Care Team (Late st Contact Info) Description 06/18/2024 3:30 PM EST Office Visit Hematology [place] [address] Lázaro Munoz, [facility] Malignant neoplasm of lower-outer quadrant of [...] of this encounter Progress Notes * Lázaro Munoz, [facility] - 06/18/2024 3:30 PM EST Oncology Clinical Pharmacist Consultation: CINV follow-up Visit Type: In-Person Subjective: Patient ID: Martha Rodriguez is a 59 y.o. female diagnosed with breast cancer who is being seen in follow-up today for chemotherapy-induced nausea and vomiting management. Allergies and Drug intolerance: Allergies Allergen Reactions Sulfa (Sulfonamide Antibiotics) Rash Chemotherapy Regimen includes the following agents: cyclophosphamide 600 mg/m2 IV once every 14 days cycles 1-4 doxorubicin (Adriamycin) 60 mg/m2 IV once every 14 days cycles 1-4 paclitaxel (Taxol) 175 mg/m2 IV once every 14 days cycles 5-8 [place] Antiemetic Regimen Aloxi (palonosetron) 0.25 mg IV [...] vomiting during your last cycle of chemotherapy? yes If yes, when did the nausea and/or vomiting occur and how long did it last? The last couple of days(D14-15) Did you need to utilize any PRN antinausea medications? compazine Did you have any difficulty filling your antinausea medications? no Do you need any refills of any antinausea medications? no Do you believe your nausea is adequately controlled on your current regimen? no Assessment and Recommendations: Martha Rodriguez is a 59 y.o. female diagnosed with breast cancer who was seen in follow up today for chemotherapy-induced nausea and vomiting management. Pharmacy will continue to regularly meet with her until an optimal antiemetic regimen is determined. Antiemetic Plan: Patient has some delayed nausea, I added some zofran with instructions not to take within 72 hours of this cycle Went over changes with regimen, switching to paclitaxel next cycle With infusion she will receive zofran 8 mg and dexamethasone 10 mg. At home she can take zofran or compazine since there will be no delay after receiving chemo. She can take both at the same time if needed, as long as the schedule is followed. Pharmacy follow up appointment: 07/07 Lázaro Munoz RPH 06/18/24 30 minutes were spent providing patient education. documented in this encounter Plan of Treatment Upcoming Encounters Date Type Department Care Team (Late st Contact Info) Description 07/02/2024 8:00 AM EST Appointment Hematology [place] [address] 07/02/2024 9:00 AM EST Office Visit Hematology [place] [address] Rosalba Patel MD [facility] [place] [address] 07/02/2024 10:30 AM EST Appointment Hematology [place] [address] 07/07/2024 10:30 AM EST TH Visit (TeleHealth) Hematology [place] [address] Hem/Onc, Clinic Pharmacist None 07/17/2024 9:00 AM EST Appointment Hematology [place] [address] 07/17/2024 10:00 AM EST Office Visit Hematology [place] [address] Rosalba Patel MD [facility] [place] [address] 07/17/2024 11:30 AM EST Appointment Hematology [place] [address] 07/30/2024 7:30 AM EST Appointment Hematology [place] [address] 07/30/2024 8:30 AM EST Office Visit Hematology and Oncology at [place] [phone] Yamileth Nur APRN [facility] [place] [address] 07/30/2024 10:00 AM EST Appointment Hematology [place] [address] 08/13/2024 8:00 AM EST Appointment Hematology [place] [address] 08/13/2024 9:00 AM EST Office Visit Hematology and Oncology at [place] [phone] Rosalba Patel MD [facility] [place] [address] 08/13/2024 10:30 AM EST Appointment Hematology [place] [address] documented as of this encounter Visit Diagnoses Diagnosis Malignant neoplasm of lower-outer quadrant of left breast of female, estrogen receptor positive documented in this encounter Administered Medications Inactive Administered Medications - up to 3 most recent administrations Medication Order MAR Action Action Date Dose Rate Site pegfilgrastim (Neulasta Onpro) (6 mg/0.6 mL) injection kit 6 mg 6 mg, Subcutaneous, ONCE, 1 dose, On Sun06/18/24 at 1515, Allow the prefilled syringe co-packaged with the on-body injector to reach room temperature at least 30 minutes prior to administration., Routine, This agent is restricted to outpatient use. Is this drug being given as an outpatient? Yes Given 06/18/2024 4:20 PM EST 6 mg documented in this encounter Care Teams [employer] Relationship Specialty Start Date End Date Nat Nicolas APRN [address] [place] [address] PCP - General Family Medicine 04/02/24 documented as of this encounter
--- OUTSIDE RECORDS SUMMARY | 2024-06-21 16:12 | XMS_ITS | Encounter Summary ---
Author Organization [facility] [place] [address] Care Team Providers Care Product Introduction Manager Name Role Phone Nat Nicolas APRN Primary Care Provider Encounter Details Date Type Department Care Team (Latest Contact Info) Description 05/08/2024 6:56 AM EDT Hospital En[place] [address] Dorota Anderson MD [facility] DR [place] [address] Abnormal finding on breast imaging Discharge Disposition: [...] AM EST Appointment Hematology [place] [address] 07/02/2024 9:00 AM EST Office Visit Hematology [place] [address] Rosalba Patel MD [facility] [place] [address] 07/02/2024 10:30 AM EST Appointment Hematology [place] [address] 07/07/2024 10:30 AM EST TH Visit (TeleHealth) Hematology and Oncology at [place] [phone] Hem/Onc, Clinic Pharmacist None 07/17/2024 9:00 AM EST Appointment Hematology [place] [address] 07/17/2024 10:00 AM EST Office Visit Hematology and Oncology at [place] [phone] Rosalba Patel MD [facility] [place] [address] 07/17/2024 11:30 AM EST Appointment Hematology [place] [address] 07/30/2024 7:30 AM EST Appointment Hematology [place] [address] 07/30/2024 8:30 AM EST Office Visit Hematology and Oncology at [place] [phone] Yamileth Nur APRN [facility] [place] [address] 07/30/2024 10:00 AM EST Appointment Hematology [place] [address] 08/13/2024 8:00 AM EST Appointment Hematology [place] [address] 08/13/2024 9:00 AM EST Office Visit Hematology [place] [address] Rosalba Patel MD [facility] [place] [address] 08/13/2024 10:30 AM EST Appointment Hematology [place] [address] documented as of this encounter Procedures Procedure Name Priority Date/Time Associated Diagnosis Comments MAMMO BREAST US LIMITED RIGHT Routine 05/08/2024 8:15 AM EDT Abnormal finding on breast imaging documented in this encounter Results * US Breast Limited Right (05/08/2024 8:15 AM EDT) WORKSTATION ID [id number] DH RAD Anatomical Region Laterality Modality [...] questions please contact the health resident care aide that requested your imaging first. ? Narrative [...] breast documented in this encounter Care Teams Product Introduction Manager Relationship Specialty Start Date End Date Nat Nicolas APRN [address] [place] [address] PCP - General Family Medicine 04/02/24 documented as of this encounter
--- OUTSIDE RECORDS SUMMARY | 2024-06-21 16:12 | XMS_ITS | Encounter Summary ---
Author Organization [facility] [place] [address] Care Team Providers Care Telephone Betting Clerk Name Role Phone Nicolas Nat Malloy APRN Primary Care Provider Encounter Details Date Type Department Care Team (Latest Contact Info) Description 05/08/2024 Travel Social History Tobacco Use Types Packs/Day [...] AM EST Appointment [facility] [place] [address] 07/02/2024 9:00 AM EST Office Visit Hematology [place] [address] Rosalba Patel MD [facility] [place] [address] 07/02/2024 10:30 AM EST Appointment Hematology [place] [address] 07/07/2024 10:30 AM EST TH Visit (TeleHealth) [place]ematology [place] [address] Hem/Onc, Clinic Pharmacist None 07/17/2024 9:00 AM EST Appointment Hematology [place] [address] 07/17/2024 10:00 AM EST Office Visit [place]ematology [place] [address] Rosalba Patel MD [facility] [place] [address] 07/17/2024 11:30 AM EST Appointment Hematology [place] [address] 07/30/2024 7:30 AM EST Appointment Hematology [place] [address] 07/30/2024 8:30 AM EST Office Visit [place]ematology [place] [address] Yamileth Nur APRN [facility] [place] [address] 07/30/2024 10:00 AM EST Appointment Hematology [place] [address] 08/13/2024 8:00 AM EST Appointment Hematology [place] [address] 08/13/2024 9:00 AM EST Office Visit [place]ematology [place] [address] Rosalba Patel MD [facility] [place] [address] 08/13/2024 10:30 AM EST Appointment Hematology [place] [address] documented as of this encounter Visit Diagnoses Not on filedocumented in this encounter Care Teams Telephone Betting Clerk Relationship Specialty Start Date End Date Nat Nicolas, SHOE STITCHER [address] [place] [address] PCP - General Family Medicine 04/02/24 documented as of this encounter
--- OUTSIDE RECORDS SUMMARY | 2024-06-21 16:12 | XMS_ITS | Encounter Summary ---
[place] [address] Care Team Providers Care Environmental Compliance Engineer Name Role Phone aNt Nicolas APRN Primary Care Provider Reason for Visit * Reason Comments Follow-up Encounter Details Date Type Department Care Team (Late st Contact Info) Description 06/18/2024 1:30 PM EST Office Visit H[place]ology [place] [phone] Yamileth Nur APRN [facility] [place] [address] Malignant neoplasm of lower-outer quadrant of left breast of female, estrogen receptor positive; Type 2 diabetes mellitus without complication, without long-term current use of insulin; Examination prior to chemotherapy Social History Tobacco [...] medical appointments or from getting medications? No 09/1 12/2023 In the past 12 months, has l [...] Mass Index 30.15 06/18/2024 1:35 PM EST documented in this encounter Progress Notes * Yamileth Nur APRN - 06/18/2024 1:30 PM EST Images from the original note were not included. [facility] Patient Name: Martha Rodriguez is a 59 y.o. female from [place], [place] (1 hour 10 min away). : 1965 Visit Date: 06/20/2024 PCP: Nat Nicolas APRN Breast surgical oncology: Lashay Amaral MD Radiation oncology: Referral pending Reason for visit: Scheduled f/up for ddAC-T Summary: Martha Rodriguez is a 59 y.o. female with clinical Stage IIA ([id number]) multifocal invasive lobular carcinoma of the left breast, ER + / ND + / HER2 -, diagnosed on 03/06/2024. She presents today for neoadjuvant ddAC-T. DIAGNOSIS: Breast cancer pathology & staging: Clinical stage: [id number] Stage IIA Pathological stage: pending surgery Pathology: Invasive lobular carcinoma, grade 2, LVI-. Surgical pathology pending. Lauryn status: 4 abnormal axillary nodes, level I and II, seen on MRI - axillary u/s and biopsy 05/08/2024 positive for metastatic carcinoma Receptor status: ER positive (>90%, strong) ND positive (>70% strong) HER2 negative by FISH, [...] grade 2, LVI- ER positive (>90%, strong) ND positive (>70% strong) HER2 negative by FISH, [...] ddAC-T 05/22/2024- C2D1 ddAC-T 06/04/2024- C3D1 ddAC-T 06/18/2024- C4D1 ddAC-T Interval History: 06/18/2024 C4D1 ddAC-T #left hip pain: comes and goes #headaches: better #BG: improving, will continue NPH with steroids during pre-meds, was checking sugar at home but BG monitor battery . #n/v: denies, took some first couple days. #GI:upset stomach, indigestion, denies d/c or nausea. Tums helps some. Reviewed some education for Taxol next time but has full pharm teach later today in infusion. 06/04/2024 C3D1 ddAC-T #Left hip pain, low [...] Family history of prostate cancer * Ashkenazi Bahai heritage * Personal history of known genetic mutation Sister is BRCA2? positive, Martha is negative by report Assessment & Plan: Martha Rodriguez is a 59 y.o. female with PMHx significant for but not limited to HTN, diabetes, migraines, medication non-compliance, and new diagnosis of multifocal invasive lobular carcinoma of the LEFT breast, ER+ND+Her2-, who presents today in scheduled follow-up for neoadjuvant ddAC-T. # Left breast cancer, ILC, ER positive, ND positive, HER2 negative - Risk scoring: UK [...] for CIPN - encourage use of frozen gloves/mitts, especially with Taxol portion, has now and will make sure they are ready for next cycle. PCP co-management encouraged Consider nutrition consult NPH before steroids and continue f/u with PCP for better BG control # Right breast mass seen on MRI - biopsy deferred due to benign appearance of 2 lesions seen on ultrasound 05/08/2024 - f/up with repeat ultrasound in 6 months (did not order today) Recommendations/Plan: Given her performance status, with adequate labs, proceed with C4D1 neoadjuvant ddACT Follow-up: RTC in 2 weeks for labs, MD/SUPPORT SERVICES COORDINATOR visit and C5D1 neoadj ddAC-T Review of Systems: Constitutional: Negative. Negative for chills, fatigue and fever. HENT: Negative. Eyes: Negative. Respiratory: Negative. Negative for cough, dizziness on exertion and shortness of breath. Cardiovascular: Negative. Negative for chest pain and leg swelling. Gastrointestinal: Negative. Endocrine: Negative. Genitourinary: Negative. Musculoskeletal: Negative. Skin: Negative. Neurological: Negative. Hematological: Negative. Psychiatric/Behavioral: Negative. All other systems reviewed and are negative. Current Medications: Current Outpatient Medications Medication Sig glipiZIDE (Glucotrol) 5 mg tablet lidocaine-prilocaine (EMLA) Cream Apply topically 60 minutes prior to accessing port. Apply a thicklayer of cream to designated site of intact skin. Cover site with occlusive dressing. hydroCHLOROthiazide 12.5 mg tablet Take 12.5 mg by mouth. metFORMIN (FORTAMET) 500 mg Tablet Extended Rel 24 hr Take 1 tablet by mouth 2 times daily (with meals). lisinopril (PRINIVIL;ZESTRIL) 20 mg tablet Take 20 mg by mouth daily. 40MG atenolol (TENORMIN) 25 mg tablet Take 25 mg by mouth daily. ondansetron (Zofran) 8 mg tablet Take 1 tablet by mouth every 8 hours as needed for Nausea. prochlorperazine (Compazine) 10 mg tablet Take 1 tablet by mouth every 6 hours as needed for Nausea. (Patient not taking: Reported on 06/04/2024) OLANZapine (ZyPREXA) 5 mg tablet Take 1 tablet by mouth nightly. On nights 1-4 of chemotherapy. (Patient not taking: Reported on 06/04/2024) lisinopriL (Zestril) 20 mg Tablet Take 0.5 tablets by mouth daily. (Patient not taking: Reported on06/18/2024) benzonatate (TESSALON) 100 mg Capsule Take 1 capsule by mouth 3 times daily as needed for Cough. (Patient not taking: Reported on 06/18/2024) ibuprofen (ADVIL;MOTRIN) 600 mg Tablet Take 1 tablet by mouth every 6 hours as needed for Pain. (Patient not taking: Reported on 06/18/2024) meclizine (ANTIVERT) 25 mg tablet Take 1 tablet by mouth 3 times daily as needed for Dizziness. (Patient not taking: Reported on 06/04/2024) Physical Exam: Vital signs and weight : Wt Readings from Last 3 Encounters: 06/18/24 80.2 kg (176 lb 12.9 oz) 06/04/24 80.6 kg (177 lb 11.1 oz) 05/22/24 79.5 kg (175 lb 4.3 oz) Temp Readings from Last 3 Encounters: 06/18/24 36.2 ??C (97.2 ??F) (Temporal) 06/04/24 37 ??C (98.6 ??F) (Temporal) 05/22/24 36.4 ??C (97.5 ??F) (Temporal) BP Readings from Last 3 Encounters: 06/18/24 118/80 06/04/24 (S) (!) 156/94 05/22/24 125/78 Pulse Readings from Last 3 Encounters: 06/18/24 (!) 110 06/04/24 88 05/22/24 100 ECOG PS: 1 Physical Exam Vitals reviewed. [...] Labs: Lab Results Component Value Date WBC 10.92 (H) 06/18/2024 HGB 12.6 06/18/2024 HCT 37.0 06/18/2024 MCV 91.4 06/18/2024 PLATELET 287 06/18/2024 Lab Results Component Value Date NEUTROABS 8.14 (H) 06/18/2024 Lab Results Component Value Date NA 141 06/18/2024 K 3.9 06/18/2024 CL 99 06/18/2024 CO2 25 06/18/2024 BUN 20 (H) 06/18/2024 CREATININE 0.63 (L) 06/18/2024 GLUCOSE 305 (H) 06/18/2024 CALCIUM 9.4 06/18/2024 ESTGFR 102 06/18/2024 Lab Results Component Value Date ALT 17 06/18/2024 AST 12 06/18/2024 ALKPHOS 172 (H) 06/18/2024 BILITOT 0.2 06/18/2024 ALBUMIN 4.4 06/18/2024 PROT 7.0 06/18/2024 Pathology: Surgical Pathology s/p definitive breast surgery: [...] prior study for comparison. Total time spent: 40 minutes with > 50% spend in discussion of above, [id number] time and coordination of care with the patient today Yamileth Nur DNP, CAR RENTAL SALES ASSISTANT, NADEEN- Women's Health Nurse Practitioner Breast Oncology Pager: [phone] [facility] documented in this encounter Plan of Treatment Upcoming Encounters Date Type Department Care Team (Late st Contact Info) Description 07/02/2024 8:00 AM EST Appointment H[place]ology [place] [phone] 07/02/2024 9:00 AM EST Office Visit Hematology [place] [phone] Rosalba Patel MD [facility] [place] [address] 07/02/2024 10:30 AM EST Appointment Hematology [place] [address] 07/07/2024 10:30 AM EST TH Visit (TeleHealth) Hematology and Oncology at [place] [phone] Hem/Onc, Clinic Pharmacist None 07/17/2024 9:00 AM EST Appointment H[place] [address] 07/17/2024 10:00 AM EST Office Visit [place]ematology [place] [address] Rosalba Patel MD [facility] [place] [address] 07/17/2024 11:30 AM EST Appointment H[place]ology [place] [address] 07/30/2024 7:30 AM EST Appointment [place] [address] 07/30/2024 8:30 AM EST Office Visit Hematology and Oncology at [place] [phone] Yamileth Nur APRN [facility] [place] [address] 07/30/2024 10:00 AM EST Appointment Hematology [place] [phone] 08/13/2024 8:00 AM EST Appointment Hematology [place] [address] 08/13/2024 9:00 AM EST Office Visit [place]ematology [place] [phone] Rosalba Patel MD [facility] [place] [address] 08/13/2024 10:30 AM EST Appointment Hematology [place] [address] documented as of this encounter Visit Diagnoses Diagnosis Malignant neoplasm of lower-outer quadrant of left breast of female, estrogen receptor positive Type 2 diabetes mellitus without complication, without long-term current use of insulin Examination prior to chemotherapy Other specified pre-operative examination documented in this encounter Care Teams Environmental Compliance Engineer Relationship Specialty Start Date End Date Nat Nicolas APRN [address] [place] [address] PCP - General Family Medicine 04/02/24 documented as of this encounter
--- OUTSIDE RECORDS SUMMARY | 2024-06-21 16:13 | XMS_ITS | Encounter Summary ---
[place] [address] Care Team Providers Care Ssrs Report Developer Name Role Phone Maria Isabel Nat Malloy APRN Primary Care Provider Encounter Details Date Type Department Care Team (Late st Contact Info) Description 04/16/2024 Patient Outreach Hematology [place] [address] Genna Arvizu, RN Social History Tobacco Use Types Packs/Day [...] as of this encounter Progress Notes * Genna Arvizu, RN - 04/16/2024 3:29 PM EDT Comprehensive Breast Program (CBP) Nurse Navigator Note Martha Rodriguez is a 59 y.o. 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 I met with the patient and her , Patel and daughters, Iggy and Colleen (and Colleen's son, Aurea), after her medical oncology consultation. Martha plans for neoadjuvant chemotherapy. She understands if we can coordinate her 04/25 CT and 04/29 bone scan tests on one day we will do so. She is aware of 05/08 left axillary lymph node biopsy and right breast ultrasound and biopsy. Dr. Amaral will follow up with her with these results. We will always attempt to coordinate her appts. related to her travel distance from [facility]. SPECIFIC TEACHIN. Contact phone number for Dr. Patel and her schedulers provided. 2. Discussed hair loss during chemotherapy and resources for wigs, scarfs, hats. Local Resource Guide - Wigs and Personal Care handout ([facility] 2023) and the [employer] [employer]'s TLC catalogue provided. ACS wig voucher (up to $100) provided. Twenty minutes was spent in education and providing support. She verbalized understanding of the plan of care and states all her questions were answered for now. Martha has our contact information. documented in this encounter Plan of Treatment Upcoming Encounters Date Type Department Care Team (Late st Contact Info) Description 07/02/2024 8:00 AM EST Appointment Hematology [place] [address] 07/02/2024 9:00 AM EST Office Visit Hematology [place] [address] Rosalba Patel MD [facility] [place] [address] 07/02/2024 10:30 AM EST Appointment Hematology [place] [address] 07/07/2024 10:30 AM EST TH Visit (TeleHealth) Hematology [place] [address] Hem/Onc, Clinic Pharmacist None 07/17/2024 9:00 AM EST Appointment Hematology [place] [address] 07/17/2024 10:00 AM EST Office Visit Hematology [place] [address] Rosalba Patel MD [facility] [place] [address] 07/17/2024 11:30 AM EST Appointment Hematology [place] [address] 07/30/2024 7:30 AM EST Appointment Hematology [place] [address] 07/30/2024 8:30 AM EST Office Visit Hematology [place] [address] Yamileth Nur APRN [facility] [place] [address] 07/30/2024 10:00 AM EST Appointment Hematology [place] [address] 08/13/2024 8:00 AM EST Appointment Hematology [place] [address] 08/13/2024 9:00 AM EST Office Visit Hematology [place] [address] Rosalba Patel MD [facility] [place] [address] 08/13/2024 10:30 AM EST Appointment Hematology [place] [address] documented as of this encounter Visit Diagnoses Not on filedocumented in this encounter Care Teams Ssrs Report Developer Relationship Specialty Start Date End Date Nat Nicolas, CHALK MOLDING MACHINE OPERATOR [address] [place] [address] PCP - General Family Medicine 04/02/24 documented as of this encounter
--- OUTSIDE RECORDS SUMMARY | 2024-06-21 16:13 | XMS_ITS | Encounter Summary ---
[place] [address] Care Team Providers Care Director Of Ancillary Services Name Role Phone Nat Nicolas APRN Primary Care Provider Reason for Visit * Diagnostic Test (Routine) - Closed Specialty Diagnoses / Procedures Referred By Laurel garrett Referred To Contact Radiology Diagnoses Malignant neoplasm of left breast in female, estrogen receptor positive, unspecified site of breast Procedures NM Bone Scan Whole Body Daily Amaral MD [facility] [place] [address] [place] [address] Referral ID Status Reason Start Date Expiration Date V isits Requested Visits Authorized [id number] Closed Specialty Service Requested 04/10/2024 10/08/2025 1 1 Encounter Details Date Type Department Care Team (Latest Contact Info) Description 04/29/2024 10:02 AM EDT - 04/29/2024 11:59 PM EDT Hospital Encounter [place] [address] Daily Amaral MD [facility] [place] [address] Discharge Disposition: Home Social History Tobacco Use [...] Sig Dispensed Refills Start Date End Date hydroCHLOROthiazide 12.5 mg tablet Take 12.5 mg [...] AM EST Appointment Hematology [place] [address] 07/02/2024 9:00 AM EST Office Visit [place]ematology [place] [address] Rosalba Patel MD [facility] [address] [place] [address] 07/02/2024 10:30 AM EST Appointment Hematology [place] [address] 07/07/2024 10:30 AM EST TH Visit (TeleHealth) [place] [address] Hem/Onc, Clinic Pharmacist None 07/17/2024 9:00 AM EST Appointment H[place] [address] 07/17/2024 10:00 AM EST Office Visit [place]ematology [place] [address] Rosalba Patel MD [facility] [address] [place] [address] 07/17/2024 11:30 AM EST Appointment Hematology [place] [address] 07/30/2024 7:30 AM EST Appointment Hematology [place] [address] 07/30/2024 8:30 AM EST Office Visit [place]ematology [place] [address] Yamileth Nur APRN [facility] [address] [place] [address] 07/30/2024 10:00 AM EST Appointment H[place]ology [place] [address] 08/13/2024 8:00 AM EST Appointment Hematology [place] [address] 08/13/2024 9:00 AM EST Office Visit [place]ematology [place] [address] Rosalba Patel MD [facility] [address] [place] [address] 08/13/2024 10:30 AM EST Appointment Hematology [place] [address] documented as of this encounter Procedures Procedure Name Priority Date/Time Associated Diagnosis Comments NM BONE SCAN WHOLE BODY Routine 04/29/2024 10:53 AM EDT Malignant neoplasm of left breast in female, estrogen receptor positive, unspecified site of breast documented in this encounter Results * NM Bone Scan Whole Body (04/29/2024 10:53 AM EDT) WORKSTATION ID [id number] RAD Anatomical Region Laterality Modality Nuclear Medicine [...] who have questions please contact the health landcare facilitator that requested your imaging first. ? Narrative [...] patients who have questions please contactthe health landcare facilitator that requested your imaging first. Daily Amaral MD IMG NM ORDERABLES documented in this encounter Visit Diagnoses Not on filedocumented in this encounter Care Teams Director Of Ancillary Services Relationship Specialty Start Date [place] [address] PCP - General Family Medicine 04/02/24 documented as of this encounter
--- OUTSIDE RECORDS SUMMARY | 2024-06-21 16:13 | XMS_ITS | Encounter Summary ---
Author Organization [place] [address] Care Team Providers Care Customer Solutions Supervisor Name Role Phone Nat Nicolas APRN Primary Care Provider Encounter Details Date Type Department Care Team (Late st Contact Info) Description 04/29/2024 Orders Only Hematology [place] [address] Rosalba Patel MD [facility] [place] [address] Social History Tobacco Use Types Packs/Day Years [...] AM EST Appointment Hematology and Oncology at [place] [phone] 07/02/2024 9:00 AM EST Office Visit Hematology [place] [address] Rosalba Patel MD [facility] [place] [address] 07/02/2024 10:30 AM EST Appointment Hematology and Oncology at [place] [phone] 07/07/2024 10:30 AM EST TH Visit (TeleHealth) Hematology and Oncology at [place] [phone] Hem/Onc, Clinic Pharmacist None 07/17/2024 9:00 AM EST Appointment Hematology [place] [address] 07/17/2024 10:00 AM EST Office Visit Hematology and Oncology at [place] [phone] Rosalba Patel MD [facility] [place] [address] 07/17/2024 11:30 AM EST Appointment Hematology [place] [address] 07/30/2024 7:30 AM EST Appointment Hematology [place] [address] 07/30/2024 8:30 AM EST Office Visit Hematology [place] [address] Yamileth Nur APRN [facility] [place] [address] 07/30/2024 10:00 AM EST Appointment Hematology [place] [address] 08/13/2024 8:00 AM EST Appointment Hematology [place] [address] 08/13/2024 9:00 AM EST Office Visit Hematology [place] [address] Rosalba Patel MD [facility] [place] [address] 08/13/2024 10:30 AM EST Appointment Hematology and Oncology at [place] [phone] documented as of this encounter Visit Diagnoses Not on filedocumented in this encounter Care Teams Customer Solutions Supervisor Relationship Specialty Start Date End Date Nat Nicolas, AUDIO DIRECTOR [address] [place] [address] PCP - General Family Medicine 04/02/24 documented as of this encounter
--- OUTSIDE RECORDS SUMMARY | 2024-06-21 16:13 | XMS_ITS | Encounter Summary ---
Author Organization [facility] [place] [address] Care Team Providers Care Police Officer Booking Name Role Phone NicolasZacNatcarlos Malloy APRN Primary Care Provider Encounter Details Date Type Department Care Team (Latest Contact Info) Description 05/05/2024 Travel Social History Tobacco Use Types Packs/Day [...] AM EST App[facility]ment [facility] [place] [address] 07/02/2024 9:00 AM EST Office Visit Hematology [place] [address] Rosalba Patel MD [facility] [place] [address] 07/02/2024 10:30 AM EST Appointment Hematology [place] [address] 07/07/2024 10:30 AM EST TH Visit (TeleHealth) Hematology [place] [address] Hem/Onc, Clinic Pharmacist None 07/17/2024 9:00 AM EST Appointment Hematology [place] [address] 07/17/2024 10:00 AM EST Office Visit Hematology [place] [address] Rosalba Patel MD [facility] [place] [address] 07/17/2024 11:30 AM EST Appointment Hematology [place] [address] 07/30/2024 7:30 AM EST Appointment Hematology [place] [address] 07/30/2024 8:30 AM EST Office Visit Hematology [place] [address] Yamileth Nur APRN [facility] [place] [address] 07/30/2024 10:00 AM EST Appointment Hematology [place] [address] 08/13/2024 8:00 AM EST Appointment Hematology [place] [address] 08/13/2024 9:00 AM EST Office Visit Hematology [place] [address] Rosalba Patel MD [facility] [place] [address] 08/13/2024 10:30 AM EST Appointment Hematology [place] [address] documented as of this encounter Visit Diagnoses Not on filedocumented in this encounter Care Teams Police Officer Booking Relationship Specialty Start Date End Date Nat Nicolas, ASSISTANT VICE PRESIDENT [address] [place] [address] PCP - General Family Medicine 04/02/24 documented as of this encounter
--- OUTSIDE RECORDS SUMMARY | 2024-06-21 16:13 | XMS_ITS | Encounter Summary ---
[place] [address] Care Team Providers Care Concrete Swimming Pool Installer Name Role Phone Nat Nicolas APRN Primary Care Provider Encounter Details Date Type Department Care Team (Late st Contact Info) Description 05/06/2024 Telephone [place] [phone] Chasidy Wright Social History Tobacco Use Types Packs/Day Years [...] encounter Miscellaneous Notes * Telephone Encounter - Chasidy Wright - 05/06/2024 4:09 PM EDTSummary: Molecular cancer testing review - CPT 53836 is a covered benefit NO PATIENT ACTION NEEDED_INFORMATIONAL ONLY Molecular cancer testing: CPT 42273 is a covered benefit and does not require prior authorization completed outpatient. E-mail from Niurka in [employer] ([id number]) requesting coverage review for CPT 36178 being done on the patient???s left breast tissue obtained on 04/02/24. Accession number is [id number]. Ordering provider is Dorota Anderson MD. Upon review, patient's primary insurance is [employer] policy # [id number]. No secondary insurance was found. Per call to [employer], CPT 59634 is a covered benefit with no authorization needed under calendar-year policy. Dx: code was not used in determination. Ref: [id number]. Will update Niurka. documented in this encounter Plan of Treatment Upcoming Encounters Date Type Department Care Team (Late st Contact Info) Description 07/02/2024 8:00 AM EST Appointment Hematology and Oncology at [place] [phone] 07/02/2024 9:00 AM EST Office Visit Hematology [place] [address] Rosalba Patel MD [facility] [place] [address] 07/02/2024 10:30 AM EST Appointment Hematology [place] [address] 07/07/2024 10:30 AM EST TH Visit (TeleHealth) Hematology [place] [address] Hem/Onc, Clinic Pharmacist None 07/17/2024 9:00 AM EST Appointment Hematology [place] [address] 07/17/2024 10:00 AM EST Office Visit Hematology and Oncology at [place] [phone] Rosalba Patel MD [facility] [place] [address] 07/17/2024 11:30 AM EST Appointment Hematology and Oncology at [place] [phone] 07/30/2024 7:30 AM EST Appointment Hematology and Oncology at [place] [phone] 07/30/2024 8:30 AM EST Office Visit Hematology and Oncology at [place] [address] Yamileth Nur APRN [facility] [place] [address] 07/30/2024 10:00 AM EST Appointment Hematology and Oncology at [place] [phone] 08/13/2024 8:00 AM EST Appointment Hematology and Oncology at [place] [address] 08/13/2024 9:00 AM EST Office Visit Hematology and Oncology at [place] [phone] Rosalba Patel MD [facility] [place] [address] 08/13/2024 10:30 AM EST Appointment Hematology [place] [phone] documented as of this encounter Visit Diagnoses Not on filedocumented in this encounter Care Teams Concrete Swimming Pool Installer Relationship Specialty Start Date End Date Nat Nicolas APRN [address] [place] [address] PCP - General Family Medicine 04/02/24 documented as of this encounter
--- OUTSIDE RECORDS SUMMARY | 2024-06-21 16:13 | XMS_ITS | Encounter Summary ---
[place] [address] Care Team Providers Care Community Case Manager Name Role Phone NicolasZacNatcarlos Malloy APRN Primary Care Provider Encounter Details Date Type Department Care Team (Late Contact Info) Description 04/16/2024 Telephone [place] [phone] Didi Loredo, RN Social History Tobacco Use [...] EST Appointment Hematology [place] [address] 07/02/2024 9:00 AM EST Office Visit Hematology [place] [address] Rosalba Patel MD [facility] [place] [address] 07/02/2024 10:30 AM EST Appointment Hematology [place] [address] 07/07/2024 10:30 AM EST TH Visit (TeleHealth) Hematology and Oncology at [place] [phone] Hem/Onc, Clinic Pharmacist None 07/17/2024 9:00 AM EST Appointment Hematology [place] [address] 07/17/2024 10:00 AM EST Office Visit Hematology [place] [address] Rosalba Patel MD [facility] [place] [address] 07/17/2024 11:30 AM EST Appointment Hematology [place] [address] 07/30/2024 7:30 AM EST Appointment Hematology [place] [address] 07/30/2024 8:30 AM EST Office Visit Hematology [place] [address] Yamileth Nur APRN [facility] [place] [address] 07/30/2024 10:00 AM EST Appointment Hematology [place] [address] 08/13/2024 8:00 AM EST Appointment Hematology [place] [address] 08/13/2024 9:00 AM EST Office Visit Hematology [place] [address] Rosalba Patel MD [facility] [place] [address] 08/13/2024 10:30 AM EST Appointment Hematology [place] [address] documented as of this encounter Visit Diagnoses Not on filedocumented in this encounter Care Teams Community Case Manager Relationship Specialty Start Date End Date Nat Nicolas APRN [address] [place] [address] PCP - General Family Medicine 04/02/24 documented as of this encounter
--- OUTSIDE RECORDS SUMMARY | 2024-06-21 16:13 | XMS_ITS | Encounter Summary ---
[place] [address] Care Team Providers Care Circuit Court Judge Name Role Phone Nat Nicolas APRN Primary Care Provider Reason for Referral * Diagnostic Test (Routine) - Closed Specialty Diagnoses / Procedures Referred By Contgiuliana t Referred To Contact Radiology Diagnoses Malignant neoplasm of lower-outer quadrant of left breast of female, estrogen receptor positive Procedures IR Mediport Placement Yamileth Nur EXTENSION AGENT [facility] [place] [address] [place] [address] Referral ID Status Reason Start Date Expiration Date V isits Requested Visits Authorized [id number] Closed Specialty Service Requested 04/30/2024 10/29/2025 1 1 Reason for Visit * Diagnostic Test (Routine) - Closed Specialty Diagnoses / Procedures Referred By Contgiuliana t Referred To Contact Radiology Diagnoses Malignant neoplasm of lower-outer quadrant of left breast of female, estrogen receptor positive Procedures IR Mediport Placement Yamileth Nur APRN [facility] [place] [address] [place] [address] Referral ID Status Reason Start Date Expiration Date V isits Requested Visits Authorized [id number] Closed Specialty Service Requested 04/30/2024 10/29/2025 1 1 Encounter Details Date Type Department Care Team (Latest Contact Info) Description 05/05/2024 12:33 PM EDT - 05/05/2024 11:59 PM EDT Hospital [place] [address] Yamileth Nur APRN [facility] [place] [address] Malignant neoplasm of lower-outer quadrant [...] Sign Reading Time Taken Comments Blood Pressure 143/78 05/05/2024 3:30 PM EDT Pulse 87 05/05/2024 3:00 PM EDT Temperature 36.8 ??C (98.3 ??F) 05/05/2024 3:13 PM ED T Respiratory Rate 16 05/05/2024 3:30 PM EDT Oxygen Saturation 92% 05/05/2024 3:30 PM EDT Inhaled Oxygen Concentration - - Weight - - Height - - Body Mass Index - - documented in this encounter Discharge Instructions * Discharge Instructions* Yessenia Fong RN - 05/05/2024 2:17 PM EDT Department of Vascular and Interventional Radiology Discharge Instructions for your Chest Port You have received a ???Power Port?? , which provides access for infusions and blood draws. What makes this a ???Power Port?? is the unique ability to ???power inject?? contrast (intravenous dye) through the port when getting a CT scan, which produces superior images (pictures). Patients who don???t have these special ports need to have an IV started if they need dye injected for their CT scan. Your port is printed with the letters ???CT?? which can be detected by x- ray to identify it as a ???Power Port?? . You will be provided with an ID card stating the technical agronomist and type of port you have. Please carry this with you in a safe place. Bandage: There is a sterile dressing over the port site consisting of small gauze with a clear dressing (Tegaderm or [id number] ). This dressing should be left in place for 48 hours. If the clear dressing becomes loose you should place tape over the edges to secure it in place. Note: If you have steri-strips beneath your dressing, simply allow them to fall off. Do not peel them off. There may be Jamul-bowman (skin glue) also, allow this to flake off. Pain: Apply ice bag to site (s) at 30 minute intervals (30 minutes on and 30 minutes off) for 24 hours?? . May use as needed for pain and/or bruising after 24 hours. Bathing: Do not take a shower until 48 hours after your port is placed; after this time you may shower with the dressing in place, then remove it and pat your skin dry. After 48 hours, we recommend that you cover the area with THE AQUA GUARD PROVIDED for 1 week while showering, facing away from theshower stream. You may use a bandaid to cover the site after the 48 hours are up if there is any drainage. No tub baths, whirlpools or swimming for one week following port placement. Flushing the mediport: If your port has not been used, it must be flushed every 30 days. What to expect when your port is accessed: 1. You may feel tenderness the first few times it is accessed but generally this subsides over time. Ask your healthcare provider to use a local anesthetic on the site if discomfort is a problem for you. You may ask for a prescription for a topical cream (EMLA) from your clinician; you may apply athome prior to your appointments, to help numb the skin over your port. 2. The clinician should be wearing sterile gloves and a mask during the access procedure. Anyone inthe room with you should also have a mask on. 3. The skin over and 2 inches around the port should be cleaned with a disinfectant 4. Tell the clinician if you would like the skin numbed (lidocaine) before the access needle is placed. 5. Unless you are unable to take heparin (blood thinner), the port should be injected with a heparin solution before deaccess (at end of each treatment or blood draw). When to call your healthcare provider: If you notice bleeding from the puncture site in your neck, or from the port incision on your chest, you should apply firm pressure over the site for 10-15 minutes, keeping the site covered. Call if you are still bleeding after 10-15 minutes. If you develop pain, redness, drainage or swelling at or around the port site, or the puncture sitein the neck If you develop fever (elevation of more than 2 degrees or greater than 101F) and/or shaking chills When to call the Interventional Radiology Department: Please call with any questions or concerns. If it is during regular office hours, please call [phone]. If it is after regular office hours, or on weekends or holidays, please call [phone] and ask to speak to the Valet Parker data reduction technician for Interventional Radiology. XXX You have received medication during your procedure to help lessen anxiety and keep you comfortable. These medications affect judgement and reaction time. We recommend that you do not drive, operate equipment, sign any important documents, or smoke unattended for 24 hours following your procedure. Because of the sedation, be careful on stairs, as you may be unsteady on your feet. You may resume your regular diet as tolerated. IV site -- slight redness, or tenderness is normal, you can use a warm compress. If tenderness and redness increases or foul drainage occurs, please contact your M. D. Revised 05/08/19 documented in this encounter Medications at Time [...] as of this encounter Progress Notes * Yessenia Fogn RN - 05/05/2024 11:59 PM EDT Follow up call completed for Martha Rodriguez on 05/06/24 and a voicemail was left encouraging the patient to call the IR Department should they have any ongoing question or concerns. * Yessenia Fong RN - 05/05/2024 2:53 PM EDT [facility] Name: Martha Rodriguez Date of : 1965 AGE: 59 y.o. [address]: [address] [place] [id number] (home) Mobile: Telephone Information: Referring Provider: Yamileth Nur REASON FOR VISIT: Order Questions Answers Where will study be performed? [facility] Radiology [120] To be scheduled Next available after expected date Is the patient on anticoagulant / antiplatelet therapy ? No Reason for exam and clinical history: ER+ BC, starting chemo in next 2 weeks Planned procedure: Mediport implant - single lumen Labs to be performed day of procedure: No labs Sedation: Moderate (Conscious sedation) Prophylactic antibiotic : None Contrast: No contrast Additional medications for procedure: Lidocaine Planned access site: RIGHT IJ Position: Supine Consent: Pending Medications to discontinue (and days held): None Case Urgency:: G2- Elective Outpatient intervention within 8-14 days Allergies Allergen Reactions Sulfa (Sulfonamide Antibiotics) Rash Pertinent PMH: Patient Active Problem List Diagnosis Code HTN (hypertension) I10 Migraine headache G43.909 Malignant neoplasm of lower-outer quadrant of left breast of female, estrogen receptor positive C50.512, Z17.0 Date/Procedure Meds Given/Comments 05/05/24 Mediport Placement Fentanyl 225 mcg IV, Versed 4 mg IV 1344 to procedure room 6 via stretcher. Onto table supine. All monitors, O2, safety strap in place.Meds per protocol. Laboratory Results: Lab Results Component Value Date CREATININE 0.59 (L) 04/25/2024 CREATININE 0.94 02/14/2013 Lab Results Component Value Date K 4.2 04/25/2024 K 3.2 (L) 02/14/2013 Lab Results Component Value Date PLATELET 317 04/25/2024 PLATELET 330 02/14/2013 documented in this encounter H&P Notes * Debra Tamayo PA - 05/05/2024 12:55 PM EDT INTERVENTIONAL RADIOLOGY FOCUSED H&P: Procedure: Port implant The patient's history and physical exam have been reviewed and completed. There has been no interval change from that of the pre-operative history and physical exam done within the last 30 days. Physical Exam: Cardiovascular: Regular, Normal Pulmonary: Breath sounds clear to auscultation The planned procedure (and sedation plan if appropriate) , its benefits and risks, and alternativeswere discussed with the patient. The patient consented to the procedure. PRE-SEDATION ASSESSMENT: Sedation Plan: moderate (conscious sedation) ASA: 2: Patient with mild systemic disease Mallampati: II: tonsillar pillars are blocked by the tongue Confirm NPO status: Yes History of anesthetic complications: No Current medications reviewed: Yes Allergies reviewed: Yes Source Note - [place] PA - 04/30/2024 2:18 PM EDT Images from the original note were not included. Interventional Radiology Focused Pre-procedure H&P: PCP: Nat Nicolas APRN Referring Provider: No ref. provider found Planned procedure: Mediport implant - single lumen Procedure indication: Left breast cancer, need for long-term durable venous access for systemic chemotherapy IR workflow: Procedure request received through Interventional Radiology eDH order queue. There are no answered order specific questions. History of Present Illness: Per chart review, Martha Rodriguez is a 59 y.o. female with PMH of left breast cancer who presents to Interventional Radiology to undergo Mediport implant. First infusion is 05/08. Past medical history is significant for HTN, T2DM, migraines. Remainder of patient's medical and surgical history, allergies, medications, and social/family history obtained below as previously outlined in patient's medical record. IR History: None at [facility] Anticoagulation/Antiplatelet: None listed Labs: Lab Results Component Value Date HGB 15.2 04/25/2024 HGB 15.2 02/14/2013 HCT 43.7 04/25/2024 HCT 43.6 02/14/2013 WBC 9.09 04/25/2024 WBC 13.8 (H) 02/14/2013 PLATELET 317 04/25/2024 PLATELET 330 02/14/2013 BUN 14 04/25/2024 BUN 14 02/14/2013 CREATININE 0.59 (L) 04/25/2024 CREATININE 0.94 02/14/2013 ALBUMIN 4.4 04/25/2024 BILITOT <0.2 04/25/2024 AST 20 04/25/2024 ALT 29 04/25/2024 ALKPHOS 141 (H) 04/25/2024 Allergies: Sulfa (sulfonamide antibiotics) Imaging: CT chest 04/25/24 Assessment: 59 y.o. female with left breast cancer presenting to Interventional Radiology for rightsided Mediport implant. Plan Planned procedure: Mediport implant - single lumen Labs to be performed day of procedure: No labs Sedation: Moderate (Conscious sedation) Prophylactic antibiotic : None Contrast: No contrast Additional medications for procedure: Lidocaine Planned access site: RIGHT IJ Position: Supine Consent: Pending Medications to discontinue (and days held): None Cytopathology presence needed: No Case Urgency:: G2- Elective Outpatient intervention within 8-14 days Medications: Current Outpatient Medications on File Prior to Visit Medication Sig Dispense Refill lidocaine-prilocaine (EMLA) Cream Apply topically 60 minutes prior to accessing port. Apply a thicklayer of cream to designated site of intact skin. Cover site with occlusive dressing. 30 g 1 hydroCHLOROthiazide 12.5 mg tablet Take 12.5 mg by mouth. lisinopriL (Zestril) 20 mg Tablet Take 0.5 tablets by mouth daily. (Patient not taking: Reported on04/09/2024) 30 tablet 0 metFORMIN (FORTAMET) 500 mg Tablet Extended Rel 24 hr Take 1 tablet by mouth 2 times daily (with meals). 60 tablet 3 benzonatate (TESSALON) 100 mg Capsule Take 1 capsule by mouth 3 times daily as needed for Cough. (Patient not taking: Reported on 04/09/2024) 30 tablet 0 ibuprofen (ADVIL;MOTRIN) 600 mg Tablet Take 1 tablet by mouth every 6 hours as needed for Pain. (Patient not taking: Reported on 04/16/2024) 30 tablet 0 meclizine (ANTIVERT) 25 mg tablet Take 1 tablet by mouth 3 times daily as needed for Dizziness. (Patient not taking: Reported on 04/09/2024) 30 tablet 0 lisinopril (PRINIVIL;ZESTRIL) 20 mg tablet Take 20 mg by mouth daily. atenolol (TENORMIN) 25 mg tablet Take 25 mg by mouth daily. No current facility-administered medications on file prior to visit. Past Medical/Surgical history: Patient Active Problem List Diagnosis Code HTN (hypertension) I10 Migraine headache G43.909 Malignant neoplasm of lower-outer quadrant of left breast of female, estrogen receptor positive C50.512, Z17.0 Past Medical History: Diagnosis Date HTN (hypertension) 02/14/2013 Migraine headache 02/14/2013 Past Surgical History: Procedure Laterality Date MAMMO US BIOPSY LEFT Left 04/02/2024 Mammo Us Biopsy Left 04/02/2024 Dorota Anderson MD [facility] RAD MAMMOGRAPHY Social History and Habits: Social History Tobacco Use Smoking status: Never Smokeless tobacco: Never Vaping Use Vaping status: Never Used Substance Use Topics Alcohol use: No Drug use: Never Significant Family History: Family History Problem Relation Age of Onset Ovarian Cancer Mother 70 's. of same Ovarian Cancer Sister 59 Breast Cancer Neg Hx Pertinent ROS: as per HPI Physical Exam: Pending (to be performed in IR the day of procedure) ASA: Pending (to be assessed in IR the day of procedure) Mallampati class: Pending (to be assessed in IR the day of procedure) 04/30/2024 Harriett Ramirez PA-C documented in this encounter Plan of Treatment Upcoming Encounters Date Type Department Care Team (Late st Contact Info) Description 07/02/2024 8:00 AM EST Appointment Hematology [place] [address] 07/02/2024 9:00 AM EST Office Visit Hematology [place] [address] Rosalba Patel MD [facility] [place] [address] 07/02/2024 10:30 AM EST Appointment Hematology [place] [address] 07/07/2024 10:30 AM EST TH Visit (TeleHealth) Hematology [place] [address] Hem/Onc, Clinic Pharmacist None 07/17/2024 9:00 AM EST Appointment Hematology and Oncology at [place] [phone] 07/17/2024 10:00 AM EST Office Visit Hematology and Oncology at [place] [phone] Rosalba Patel MD [facility] [place] [address] 07/17/2024 11:30 AM EST Appointment Hematology and Oncology at [place] [phone] 07/30/2024 7:30 AM EST Appointment Hematology [place] [address] 07/30/2024 8:30 AM EST Office Visit Hematology and Oncology at [place] [phone] Yamileth Nur APRN [facility] [place] [address] 07/30/2024 10:00 AM EST Appointment Hematology [place] [address] 08/13/2024 8:00 AM EST Appointment Hematology [place] [address] 08/13/2024 9:00 AM EST Office Visit Hematology [place] [address] Rosalba Patel MD [facility] [place] [address] 08/13/2024 10:30 AM EST Appointment Hematology [place] [address] documented as of this encounter Procedures Procedure Name Priority Date/Time Associated Diagnosis Comments IR MEDIPORT PLACEMENT Routine 05/05/2024 3:09 PM EDT Malignant neoplasm of lower-outer quadrant of left breast of female, estrogen receptor positive POC, GLUCOSE Routine 05/05/2024 1:05 PM EDT documented in this encounter Results * IR Mediport Placement (05/05/2024 3:09 PM EDT) Anatomical Region Laterality Modality X-Ray Angiograph y Narrative 05/06/2024 2:30 PM EDT Interventional Radiology Procedure Note Procedure: Subcutaneous venous port implant Indication: Breast cancer, durable halfway central venous access for chemotherapy Procedure summary: [...] the presence of an attending radiologist. Resident (screen printing machine operator helper): Jossy Velasco MD Attending: Patricio Christy MD Not present for the procedure. 05/05/2024 Yamilethhira Nur EXTENSION AGENT IMG IR ORDERABLES * (ABNORMAL) POC, GLUCOSE (05/05/2024 1:05 PM EDT) [facility] Signature Glucometer, POC 243(H) 65 - 199 mg/dL 05/05/2024 1:06 PM EDT [facility] Comment:Supplemental ranges: <140 mg/dL before meals <180 mg/dL all other times of the day. Blood CAPILLARY BLOOD / Unknown 05/05/2024 1:05 PM EDT 05/05/2024 1:06 PM EDT Yamileth Yogesh Nur EXTENSION AGENT POINT OF CARE TEST ORDERABLES [facility] [place] [address] documented in this encounter Visit Diagnoses Diagnosis Malignant neoplasm of lower-outer quadrant of left breast of female, estrogen receptor positive documented in this encounter Administered Medications Inactive Administered Medications - up to 3 most recent administrations Medication Order MAR Action Action Date Dose Rate Site fentaNYL (pf) (50 mcg/mL) multi-dose injection 25-50 mcg 25-50 mcg, Intravenous, EVERY 3 MIN PRN, Starting on Sun05/05/24 at 1258, Until Sun05/05/24 at 1542, Pain, per unit protocol, For use in Interventional Radiology (IR) only for procedural sedation with direct provider supervision and verbal order. - Start dose: 50 mcg (reduce dose to 25 mcg if history of sedation sensitivity). - Titration dose: 25-50 mcg IV, (based on patient response) every 3 minutes PRN to maintain procedural pain less than 2 per Pain Scale. Maximum dose: 50 mcg/dose, 250 mcg/hour, Angio/IR (Intra-Procedure), Routine Given 05/05/2024 2:46 PM EDT 25 mcg Given 05/05/2024 2:43 PM EDT 50 mcg Given 05/05/2024 2:40 PM EDT 25 mcg lidocaine (Xylocaine) 1% (10 mg/mL) injection 10 mg 10 mg, Subcutaneous, ONCE, 1 dose, On Sun05/05/24 at 1315, For use in Interventional Radiology (IR) only for procedure with direct provider supervision and verbal order., Angio/IR (Intra-Procedure), Routine Given 05/05/2024 2:16 PM EDT 10 mg lidocaine-EPINEPHrine (1% - 1:100,000) injection 20 mL 20 mL, Intradermal, ONCE, 1 dose, On Sun05/05/24 at 1315, For use in Interventional Radiology (IR) only for procedure with direct provider supervision and verbal order. *This order is NOT a Venous Ablation Order / Dose., Angio/IR (Intra-Procedure), Routine Given 05/05/2024 2:27 PM EDT 20 mLs midazolam (pf) (Versed) (1 mg/mL) multi-dose injection 0.5-1 mg 0.5-1 mg, Intravenous, EVERY 3 MIN PRN, Starting on Sun05/05/24 at 1258, Until Sun05/05/24 at 1542, Sedation, For use in Interventional Radiology (IR) only for procedural sedation with direct provider supervision and verbal order. - Start dose: 1 mg (Reduce dose to 0.5 mg if history of sedation sensitivity). - Titration dose: 0.5 mg - 1 mg (based on patient response) every 3 minutes PRN to obtain RASS score of -3. Maximum dose: 1 mg/dose, 5 mg/hour., Angio/IR (Intra-Procedure), Routine Given 05/05/2024 2:38 PM EDT 0.5 mg Given 05/05/2024 2:26 PM EDT 0.5 mg Given 05/05/2024 2:21 PM EDT 0.5 mg documented in this encounter Care Teams Circuit [address] Judge Relationship Specialty Start Date End Date Nat Nicolas, EXTENSION AGENT [address] [place] [address] PCP - General Family Medicine 04/02/24 documented as of this encounter
--- OUTSIDE RECORDS SUMMARY | 2024-06-21 16:13 | XMS_ITS | Encounter Summary ---
Author Organization [facility] [place] [address] Care Team Providers Care Delinquency Prevention Social Worker Name Role Phone Maria Isabel Nat Malloy APRN Primary Care Provider Encounter Details Date Type Department Care Team (Latest Contact Info) Description 05/08/2024 6:57 AM EDT - 05/08/2024 9:41 AM EDT Hospital En[place] [phone] Daily Amaral MD [facility] [place] [address] Malignant neoplasm of left breast in female, estrogen receptor positive, unspecified site of breast Discharge Disposition: Home Social History Tobacco Use [...] EST Appointment Hematology [place] [address] 07/02/2024 9:00 AM EST Office Visit Hematology [place] [address] Rosalba Patel MD [facility] [place] [address] 07/02/2024 10:30 AM EST Appointment Hematology [place] [phone] 07/07/2024 10:30 AM EST TH Visit (TeleHealth) Hematology [place] [address] Hem/Onc, Clinic Pharmacist None 07/17/2024 9:00 AM EST Appointment Hematology [place] [address] 07/17/2024 10:00 AM EST Office Visit Hematology [place] [phone] Rosalba Patel MD [facility] [place] [address] 07/17/2024 11:30 AM EST Appointment Hematology [place] [phone] 07/30/2024 7:30 AM EST Appointment Hematology [place] [phone] 07/30/2024 8:30 AM EST Office Visit Hematology [place] [phone] Yamileth Nur APRN [facility] [place] [address] 07/30/2024 10:00 AM EST Appointment Hematology [place] [address] 08/13/2024 8:00 AM EST Appointment Hematology [place] [phone] 08/13/2024 9:00 AM EST Office Visit Hematology [place] [phone] Rosalba Patel MD [facility] [place] [address] 08/13/2024 10:30 AM EST Appointment Hematology [place] [address] documented as of this encounter Procedures Procedure Name Priority Date/Time Associated Diagnosis Comments MAMMO US BIOPSY LYMPH NODE LEFT Routine 05/08/2024 9:41 AM EDT Malignant neoplasm of left breast in female, estrogen receptor positive, unspecified site of breast SURGICAL PATHOLOGY Routine 05/08/2024 9: 24 AM EDT Malignant neoplasm of left breast in female, estrogen receptor positive, unspecified site of breast documented in this encounter Results * Mammo US Biopsy Lymph Node Left (05/08/2024 9:41 AM EDT) WORKSTATION ID [id number] RAD Anatomical Region Laterality Modality Breast [...] who have questions please contact the health home health care respiratory therapist that requested your imaging first. ? --------ORIGINAL [...] obtained using a Inrad 18G device. A Dermal Life Twirl marker clip was placed. Cranio-caudal and [...] who have questions please contact the health home health care respiratory therapist that requested your imaging first. ? Impressions 05/08/2024 1:09 PM EDT Pending result, [...] who have questions please contact the health home health care respiratory therapist that requested your imaging first. ? [facility] [address] [place] [place] ??[id number] Narrative 05/08/2024 1:09 PM EDT EXAMINATION: MAMMO [...] (ABNORMAL) Surgical Pathology (05/08/2024 9:24 AM EDT) Case Report Surgical Pathology Report ? Case: [id number] ? Authorizing Provider: ??Daily Amaral MD ?? Collected: ? 05/08/2024 0924 ? Ordering Location: ? Mammography at [facility] ?Received: ?05/08/2024 1240 ? Pathologist: ? Keyla Rodas, ? Specimen: ?Breast, Left, left axilla-lymph node ? 05/09/2024 11:03 AM EDT [facility] Final Diagnosis A. 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 05/09/2024 11:03 AM EDT [facility] Clinical Information A. Breast, Left, left axilla-lymph node Rule out malignancy Malignant neoplasm of left breast in female, estrogen receptor positive, unspecified site of breast [C50.912, Z17.0] 05/09/2024 11:03 AM EDT [facility] Gross Description A. Breast, Left, left axilla-lymph node. A - Labeled/Fixati ve: Left axilla lymph node, formalin. Quantity/Size: Three, ranging from 0.5 x 0.1 cm to 1.1 x 0.1 cm Tissue Description: [place]-white needle core biopsies. Sections/Proce ssing: Entirely submitted in 1 cassette labeled A1. Ischemic time: 2 minutes Total fixation time in formalin: 13 hours 34 minutes The ASCO/CAP guideline related to formalin fixation time has been met (6-72 hours). The ASCO/CAP guideline related to cold ischemic time has been met (<1 hour). sns 05/09/2024 11:03 AM EDT [facility] Result Note THIS RESULT REQUIRES PHYSICIAN/KINGS FOLLOW UP(A) 05/09/2024 11:03 AM EDT [facility] Tissue LEFT BREAST STRUCTURE / Unknown 05/08/2024 9:24 AM EDT 05/08/2024 12:40 PM EDT Daily Amaral MD PATHOLOGY/CYTOLOG Y ORDERABLES Performing Organization Address City/State/[facility] Co de Phone Number [facility] [place] [address] documented in this encounter Visit Diagnoses Diagnosis Malignant neoplasm of left breast in female, estrogen receptor positive, unspecified site of breast documented in this encounter Care Teams Delinquency Prevention Social Worker Relationship Specialty Start Date End Date Nat Nicolas, PLATEN DRIER OPERATOR [address] [place] [address] PCP - General Family Medicine 04/02/24 documented as of this encounter
--- OUTSIDE RECORDS SUMMARY | 2024-06-21 16:13 | XMS_ITS | Encounter Summary ---
[facility] [place] [address] Care Team Providers Care Open Winder Name Role Phone Nicolas Nat Malloy APRN Primary Care Provider Encounter Details Date Type Department Care Team (Latest Contact Info) Description 04/29/2024 Travel Social History Tobacco Use Types Packs/Day [...] AM EST Appointment [facility] [place] [address] 07/02/2024 9:00 AM EST Office Visit [place]ematology [place] [address] Rosalba Patel MD [facility] [place] [address] 07/02/2024 10:30 AM EST Appointment [place]ology [place] [address] 07/07/2024 10:30 AM EST TH Visit (TeleHealth) [place] [address] Hem/Onc, Clinic Pharmacist None 07/17/2024 9:00 AM EST Appointment [place] [address] 07/17/2024 10:00 AM EST Office Visit [place] [address] Rosalba Patel MD [facility] [place] [address] 07/17/2024 11:30 AM EST Appointment [place] [address] 07/30/2024 7:30 AM EST Appointment [place] [address] 07/30/2024 8:30 AM EST Office Visit [place] [address] Yamileth Nur APRN [facility] [place] [address] 07/30/2024 10:00 AM EST Appointment [place] [address] 08/13/2024 8:00 AM EST Appointment [place] [address] 08/13/2024 9:00 AM EST Office Visit [place] [address] Rosalba Patel MD [facility] [place] [address] 08/13/2024 10:30 AM EST Appointment [place] [address] documented as of this encounter Visit Diagnoses Not on filedocumented in this encounter Care Teams Open Winder Relationship Specialty Start Date End Date Nat Nicolas, RETIREMENT PLAN COUNSELOR [address] [place] [address] PCP - General Family Medicine 04/02/24 documented as of this encounter
--- OUTSIDE RECORDS SUMMARY | 2024-06-21 16:13 | XMS_ITS | Encounter Summary ---
[place] [address] Care Team Providers Care Dinkey Motor Operator Name Role Phone Nat Nicolas APRN Primary Care Provider Reason for Visit * Treatment/Therapy Plan Authorization (Routine) - Authorized Specialty Diagnoses / Procedures Referred By Contac t Referred To Contact Hematology and Oncology Diagnoses Malignant neoplasm of lower-outer quadrant of left breast of female, estrogen receptor positive Type 2 diabetes mellitus without complication, without long-term current use of insulin Rosalba Patel MD [facility] [place] [address] [address] Referral ID Status Reason Start Date Expiration Date V isits Requested Visits Authorized [id number] Authorized 04/29/2024 04/29/2025 99 107 Encounter Details Date Type Department Care Team (Latest Contact Info) Description 05/08/2024 9:42 AM EDT - 05/08/2024 11:59 PM EDT Hospital Encounter [place]ematology [place] [address] Malignant neoplasm of lower-outer quadrant [...] as of this encounter Progress Notes * Bethany Pressley RN - 05/08/2024 10:28 AM EDT Patient Name: Martha Rodriguez Patient Age: 59 y.o. Birthdate: 1965 Admit date: 05/08/2024 Attending Physician: No att. providers found Access visit. See MAR and/or flowsheet. documented in this encounter Plan of Treatment Upcoming Encounters Date Type Department Care Team (Late st Contact Info) Description 07/02/2024 8:00 AM EST Appointment Hematology and Oncology at [place] [phone] 07/02/2024 9:00 AM EST Office Visit Hematology and Oncology at [place] [phone] Rosalba Patel MD [facility] [place] [address] 07/02/2024 10:30 AM EST Appointment [place] [address] 07/07/2024 10:30 AM EST TH Visit (TeleHealth) [place] [address] Hem/Onc, Clinic Pharmacist None 07/17/2024 9:00 AM EST Appointment [place] [address] 07/17/2024 10:00 AM EST Office Visit [place] [address] Rosalba Patel MD [facility] [place] [address] 07/17/2024 11:30 AM EST Appointment Hematology and Oncology at [place] [phone] 07/30/2024 7:30 AM EST Appointment Hematology [place] [address] 07/30/2024 8:30 AM EST Office Visit [place]ology [place] [address] Yamileht Nur APRN [facility] [place] [address] 07/30/2024 10:00 AM EST Appointment H[place]ology [place] [address] 08/13/2024 8:00 AM EST Appointment [place] [address] 08/13/2024 9:00 AM EST Office Visit [place] [address] Rosalba Patel MD [facility] [place] [address] 08/13/2024 10:30 AM EST Appointment [place]ology [place] [address] documented as of this encounter Procedures Procedure Name Priority Date/Time Associated Diagnosis Comments CANCER ANTIGEN 15-3 STAT 05/08/2024 1 0:25 [...] this encounter Results * Cancer antigen 15-3 (05/08/2024 10:25 AM EDT) CA 15-3 14 <=25 unit/mL 05/08/2024 11:41 AM EDT [facility] Comment:This result was gene rated using a Tani Elías immunoassay. Results obtained from other methods or manufacturers cannot be used interchangeably with this method. Blood VENOUS BLOOD SPECIMEN / Unknown Mediport Line / Unknown 05/08/2024 10:25 AM EDT 05/08/2024 10:38 AM EDT Rosalba Patel MD CHEMISTRY ORDERABLES [facility] [place] [address] * (ABNORMAL) Comprehensive metabolic panel Non-fasting (05/08/2024 10:25 AM EDT) Glucose 284(H) 65 - 199 mg/dL 05/08/2024 11:33 AM EDT [facility] Comment:Glucose Concentratio n >=200 mg/dL plus symptoms is consistent with Diabetes Mellitus. Blood Urea Nitrogen 19(H) 8 - 18 mg/dL 05/08/2024 11:33 AM EDT [facility] Creatinine 0.57(L) 0.70 - 1.20 mg/dL 05/08/2024 11:33 AM EDT [facility] Sodium 140 135 - 145 mMol/L 05/08/2024 11:33 AM EDT [facility] Potassium 4.4 3.5 - 5.0 mMol/L 05/08/2024 11:33 AM EDT [facility] Chloride 101 98 - 107 mMol/L 05/08/2024 11:33 AM EDT [facility] Carbon Dioxide 25 22 - 31 mMol/L 05/08/2024 11:33 AM [facility] Anion Gap 14 5 - 15 mMol/L 05/08/2024 11:33 AM [facility] Calcium 9.7 8.5 - 10.5 mg/dL 05/08/2024 11:33 AM [facility] Protein, Total 7.1 6.1 - 8.0 g/dL 05/08/2024 11:33 AM [facility] Albumin 4.6 3.2 - 5.2 g/dL 05/08/2024 11:33 AM [facility] Aspartate Aminotransferase 21 <=30 unit/L 05/08/2024 11:33 AM [facility] Alanine Aminotransferase 24 0 - 30 unit/L 05/08/2024 11:33 AM [facility] Alkaline Phosphatase 126(H) 35 - 105 unit/L 05/08/2024 11:33 AM [facility] Bilirubin, Total 0.3 <=1.3 mg/dL 05/08/2024 11:33 AM [facility] Est Glomerular Filtration Rate - Female 104 mL/min/1. 73 m?? 05/08/2024 11:33 AM [facility] Comment: This [...] Calculator [employer] Fasting Status No 05/08/2024 11:33 AM [facility] Blood VENOUS BLOOD SPECIMEN / Unknown Mediport Line / Unknown 05/08/2024 10:25 AM EDT 05/08/2024 10:38 AM EDT Rosalba Patel MD CHEMISTRY ORDERABLES [facility] [place] [address] * CBC (with Diff) (05/08/2024 10:25 AM EDT) White Blood Cell 6.69 4.00 - 9.50 x10(3)/mcL 05/08/2024 10:53 AM EDT [facility] Red Blood Cell 4.77 4.00 - 5.21 x10(6)/mcL 05/08/2024 10:53 AM EDT [facility] Hemoglobin 14.8 11.7 - 15.5 g/dL 05/08/2024 10:[facility] Hematocrit 42.8 35.7 - 45.8 % 05/08/2024 10:53 AM EDT [facility] Mean Cell Volume 89.7 82.6 - 94.4 fL 05/08/2024 10:53 AM EDT [facility] Mean Cell Hemoglobin 31.0 27.1 - 32.0 pg 05/08/2024 10:53 AM T [facility] Mean Cell Hemoglobin Concentration 34.6 31.7 - 35.0 g/dL 05/08/2024 10:53 AM EDT [facility] Platelet 299 145 - 357 x10(3)/mcL 05/08/2024 10:53 AM EDT [facility] Mean Platelet Volume 12.2 7.6 - 12.9 fL 05/08/2024 10:53 AM EDT [facility] RDW Standard Deviation 38.8 37.0 - 46.0 fL 05/08/2024 10:53 AM [facility] RDW coefficient of variation 11.9 11.5 - 14.1 % 05/08/2024 10:53 [facility] NRBC% auto 0.0 % 05/08/2024 10:53 AM [facility] NRBC Absolute <0.01 <0.01 x10(3)/mcL 05/08/2024 10:53 [facility] Neutrophil % 54.0 % 05/08/2024 10:53 AM [facility] Neutrophil Absolute (ANC) - Automated 3.61 1.70 - 6.10 x10(3)/mcL 05/08/2024 10:53 AM [facility] Lymph % 34.5 % 05/08/2024 10:53 AM [facility] Lymph Absolute 2.31 0.90 - 3.20 x10(3)/mcL 05/08/2024 10:53 AM [facility] Monocyte % 6.3 % 05/08/2024 10:53 AM [facility] Monocyte Absolute 0.42 0.30 - 0.90 x10(3)/mcL 05/08/2024 10:53 AM [facility] Eos % 4.0 % 05/08/2024 10:53 AM [facility] Eos Absolute 0.27 0.00 - 0.40 x10(3)/mcL 05/08/2024 10:53 AM [facility] Basophil % 0.9 % 05/08/2024 10:53 AM [facility] Baso Absolute 0.06 0.00 - 0.10 x10(3)/mcL 05/08/2024 10:53 AM [facility] Immature Gran % 0.3 % 10:53 AM [facility] Immature Gran Absolute <0.04 0.00 - 0.04 x10(3)/mcL 05/08/2024 10:53 AM [facility] Blood VENOUS BLOOD SPECIMEN / Unknown Mediport Line / Unknown 05/08/2024 10:25 AM EDT 05/08/2024 10:38 AM EDT Rosalba P Jorge MD HEMATOLOGY ORDERABLE S [facility] [address] [place] [address] documented in this encounter Visit Diagnoses Diagnosis [...] EVERY 1 MIN PRN, Starting on Millie 05/08/24 at 0953, Until 05/09/24 at 0434, Line Care, Flush pertains to all indwelling lines. Flush per protocol found in the job aid using the link provided on this medication record. Refer to Intravenous (IV) Job Aid: Adult Flushing & Catheter Care (3634) job aid for additional information regarding guidelines and administration., Routine Given 05/08/2024 10:27 AM EDT 20 mLs documented in this encounter Care Teams Dinkey Motor Operator Relationship Specialty Start Date End Date Nat Nicolas, MARKETING CONTENT MANAGER [address] [place] [address] PCP - General Family Medicine 04/02/24 documented as of this encounter
--- OUTSIDE RECORDS SUMMARY | 2024-06-21 16:13 | XMS_ITS | Encounter Summary ---
[place] [address] Care Team Providers Care School Secretary Name Role Phone Nat Nicolas APRN Primary Care Provider Encounter Details Date Type Department Care Team (Late st Contact Info) Description 05/08/2024 1:00 PM EDT Clinical Support Hematology [place] [address] Lázaro Munoz, [facility] Malignant neoplasm of lower-outer quadrant of left [...] this encounter Progress Notes * Lázaro Munoz, [facility] - 05/08/2024 1:00 PM EDT Pharmacist New Chemo Teach Visit PATIENT ID: Martha Rodriguez is a 59 y.o. female with breast cancer who presents today for chemotherapy teaching and is accompanied by her Patel. The plan is for doxorubicin/cyclophosphamide given every 2 weeks for 4 cycles followed by paclitaxel given every 2 weeks for 4 cycles. The following information was reviewed with the patient and Patel. Drug-Drug / Drug-Herb Interactions: none Antitumor Therapy Schedule: Doxorubicin (Adriamycin) and Cyclophosphamide (Cytoxan) every 2 weeks for 4 cycles Followed by Paclitaxel (Taxol) every 2 weeks for 4 cycles Possible Side Effects include, but are not limited to: Doxorubicin (Adriamycin): The most common potential side effects include: Decrease in blood counts (decrease in white blood cells, red blood cells and platelets, resulting in increased risk of infection, anemia and bleeding), nausea/vomiting, hair loss, temporary red discoloration of urine. Less common side effects include mouth sores, damage to the heart, secondary malignancies Cyclophosphamide (Cytoxan): The most common potential side effects include: Hair loss, nausea/vomiting, diarrhea, decrease in blood counts, infertility, changes in skin or nails, and fatigue. Less common side effects include a risk of developing a blood cancer such as leukemia, bladder irritation with high doses and mucositis. Paclitaxel (Taxol): The most common potential side effects include: Decrease in blood counts (decrease in white blood cells, red blood cells and platelets, resulting in increased risk of infection, anemia and bleeding), numbness and tingling in the hands and feet, infusion reactions, nausea/vomiting, hair loss, diarrhea. Less common side effects include rash, muscle aches. CINV Collaborative Practice Agreement (CPA): Martha Rodriguez has consented to participate in the pharmacist CINV CPA program: yes CINV Risk Assessment: Age < 50 years: no Female gender: yes History of morning sickness during : yes Prone to motion sickness: no History of prior CINV: no History of anxiety or high pretreatment expectation of severe nausea: no The prevention and management of CINV was reviewed with the patient. Martha Rodriguez demonstrated understanding of how and when to take home prescriptions for antinausea management, and will bulk picker their prescriptions at [facility] in [place], [place]. Martha Rodriguez was given the oncology pharmacist contact information should any issues arise when filling antinausea prescriptions, or if modifications to the antiemetic regimen are needed to better control CINV. [place] Antiemetics: Cycles 1 through 4 Aprepitant 130 mg IV x 1 Palonosetron 0.25 mg IV x 1 Dexamethasone 10 mg IV/PO x 1 Cycles 5 through 8 Ondansetron 8 mg IV/PO x 1 Antiemetic Prescriptions: the following medications should be picked up before starting treatment Olanzapine 5 mg PO nightly on days 1 through 4 for cycles 1 through 4 only Prochlorperazine 10 mg PO Q6H PRN nausea/vomiting Plan: Martha was given written information regarding chemotherapy regimen, side effects and management strategies. she was given an opportunity to ask questions and verbalized understanding of the information and treatment plan. No barriers to learning were identified. she was counseled on how to call for any further questions or concerns. Chemotherapy is scheduled to begin on 05/08/24 Mediport placement: 05/05/24 Echocardiogram: 05/05/24 = 59 % Supportive Care: To reduce the risk of neutropenia, She will need injections of pegfilgrastim given the day following chemotherapy for Cycles 1 through 4. Pegfilgrastim may cause skeletal pain for several days after each injection. Claritin (loratadine) may be helpful in alleviating pegfilgrastim related bone pain.she may take 10 mg starting before Her injection and continue to take daily for 5-7 days. Initial antiemetic regimen includes compazine olanzapine Prescriptions for other supportive care agents will be reviewed with patient and written by the [facility]. Reviewed possible side effects of constipation and diarrhea. Martha Rodriguez should call the clinic if > 3 loose stools per day or > 2 days without a bowel movement. Reviewed the following medications for constipation: polyethylene glycol (MiraLAX), senna (Senokot), docusate (Colace). Reviewed the following medication for diarrhea: loperamide (Imodium A-D). Reviewed that fatigue is a common side effect of cancer treatment. Rest, but not too much: Plan your day so you have time to rest. Take naps that are 30 minutes or less. Try to sleep 7-8 hours each night. Stay active: Stay as active as possible with moderate exercise like walking. Save your energy: Prioritize activities that are most important and plan ahead to spread out activities throughout the day with rest as needed. Get help: Ask family or friends for help if needed. Get support: Consider joining a support group. Sharing feelings can ease the burden of fatigue and you may learn some other coping strategies from others. Eat well: Drink at least 64 fluid ounces of water daily if possible. Prioritize eating healthy fruits, vegetables, and protein. Call your doctor: If you are unable to get out of bed for a 24-hour period, confused, dizzy, or experience shortness of breath, contact the clinic. Reviewed sexual activity and fertility. Reviewed the risks of infection and bleeding. Recommended barrier protection in the days following each infusion to prevent any trace chemotherapy in body fluids from affecting a partner. Reviewed hair loss. Most patients will start to notice this 2-4 weeks after starting chemotherapy. Provided a list of local resources for wigs, scarves, and hats. Chemotherapy exposure precautions were reviewed. Advanced directives: A copy of the Advanced Directive form was given to the patient. Will refer to social work to assist with completion. Martha Rodriguez was given the contact information for the breast oncology team ([phone]) and wasinstructed to call with any questions or concerns during normal business hours (Sunday-Sunday 8 am - 5 pm). The hospital packaging line operator phone number ([phone]) was provided to reach the on-call oncology fellow during nights, weekends, and holidays. Pharmacy follow up appointment: 05/13/24 45 of this 60 minute face to face encounter was spent in counseling, education and coordination of care. documented in this encounter Plan of Treatment Upcoming Encounters Date Type Department Care Team (Late st Contact Info) Description 07/02/2024 8:00 AM EST Appointment Hematology [place] [address] 07/02/2024 9:00 AM EST Office Visit Hematology [place] [address] Rosalba Patel MD [facility] [place] [address] 07/02/2024 10:30 AM EST Appointment Hematology [place] [address] 07/07/2024 10:30 AM EST TH Visit (TeleHealth) Hematology [place] [address] Hem/Onc, Clinic Pharmacist None 07/17/2024 9:00 AM EST Appointment Hematology [place] [address] 07/17/2024 10:00 AM EST Office Visit Hematology [place] [address] Rosalba Patel MD [facility] [place] [address] 07/17/2024 11:30 AM EST Appointment Hematology [place] [address] 07/30/2024 7:30 AM EST Appointment Hematology [place] [address] 07/30/2024 8:30 AM EST Office Visit Hematology [place] [address] Yamileth Nur APRN [facility] [place] [address] 07/30/2024 10:00 AM EST Appointment Hematology [place] [address] 08/13/2024 8:00 AM EST Appointment Hematology [place] [address] 08/13/2024 9:00 AM EST Office Visit Hematology [place] [address] Rosalba Patel MD [facility] [place] [address] 08/13/2024 10:30 AM EST Appointment Hematology [place] [address] documented as of this encounter Visit Diagnoses Diagnosis Malignant neoplasm of lower-outer quadrant of left breast of female, estrogen receptor positive documented in this encounter Care Teams School Secretary Relationship Specialty Start Date End Date Nat Nicolas APRN [address] [place] [address] PCP - General Family Medicine 04/02/24 documented as of this encounter
--- OUTSIDE RECORDS SUMMARY | 2024-06-21 16:13 | XMS_ITS | Encounter Summary ---
[place] [address] Care Team Providers Care Fisher Dip Net Name Role Phone Nat Nicolas APRN Primary Care Provider Reason for Visit * Reason Onset Date Comments Disability Paperwork 04/29/2024 Encounter Details Date Type Department Care Team (Late st Contact Info) Description 04/29/2024 Telephone Hematology [place] [phone] Iris Lafleur Disability Paperwork Social History Tobacco Use Types Packs/Day Years [...] encounter Miscellaneous Notes * Telephone Encounter - Iris Lafleur - 04/29/2024 12:24 PM EDT FMLA FMLA form completed. Pending provider review and signature. 05/23/24: FMLA form signed. Sent to patient via portal. Copy scanned to chart. documented in this encounter Plan of Treatment Upcoming Encounters Date Type Department Care Team (Late st Contact Info) Description 07/02/2024 8:00 AM EST Appointment Hematology [place] [address] 07/02/2024 9:00 AM EST Office Visit Hematology [place] [address] Rosalba Patel MD [facility] [place] [address] 07/02/2024 10:30 AM EST Appointment Hematology [place] [address] 07/07/2024 10:30 AM EST TH Visit (TeleHealth) Hematology [place] [address] Hem/Onc, Clinic Pharmacist None 07/17/2024 9:00 AM EST Appointment Hematology [place] [address] 07/17/2024 10:00 AM EST Office Visit Hematology [place] [address] Rosalba Patel MD [facility] [place] [address] 07/17/2024 11:30 AM EST Appointment Hematology [place] [address] 07/30/2024 7:30 AM EST Appointment Hematology [place] [address] 07/30/2024 8:30 AM EST Office Visit Hematology and Oncology at [place] [phone] Yamileth Nur APRN [facility] [place] [address] 07/30/2024 10:00 AM EST Appointment Hematology and Oncology at [place] [phone] 08/13/2024 8:00 AM EST Appointment Hematology [place] [address] 08/13/2024 9:00 AM EST Office Visit Hematology [place] [address] Rosalba Patel MD [facility] [place] [address] 08/13/2024 10:30 AM EST Appointment Hematology and Oncology at [place] [address] documented as of this encounter Visit Diagnoses Not on filedocumented in this encounter Care Teams Fisher Dip Net Relationship Specialty Start Date End Date Nat Nicolas APRN [address] [place] [address] PCP - General Family Medicine 04/02/24 documented as of this encounter
--- OUTSIDE RECORDS SUMMARY | 2024-06-21 16:13 | XMS_ITS | Encounter Summary ---
[place] [address] Care Team Providers Care Glue Jointer Feeder Name Role Phone Nat Nicolas APRN Primary Care Provider Reason for Visit * Treatment/Therapy Plan Authorization (Routine) - Authorized Specialty Diagnoses / Procedures Referred By Contac t Referred To Contact Hematology and Oncology Diagnoses Malignant neoplasm of lower-outer quadrant of left breast of female, estrogen receptor positive Type 2 diabetes mellitus without complication, without long-term current use of insulin Rosalba Patel MD [facility] [place] [address] [address] Referral ID Status Reason Start Date Expiration Date V isits Requested Visits Authorized [id number] Authorized 04/29/2024 04/29/2025 99 107 Encounter Details Date Type Department Care Team (Latest Contact Info) Description 05/08/2024 9:42 AM EDT - 05/08/2024 11:59 PM EDT Hospital Encounter Hematology [place] [address] Malignant neoplasm of lower-outer quadrant [...] file documented as of this encounter Discharge Instructions * Patient Instructions* Alessia Ott RN - 05/08/2024 3:29 PM EDT Teaching Instructions Reinforced: Please be sure to drink 24-48 ounces of fluid daily (8-10 cups) Perform oral care (brushing, mouth rinse, etc) three to four times daily Inspect the skin for new cuts/bumps/bruises/rashes daily Protect skin from sun exposure & wear sunscreen when outdoors (SPF 30 minimum) Take measures to prevent infection (such as frequent handwashing for 20-30 seconds, avoiding loved ones if they are ill, and social distancing in public) Follow food safety guidelines (No self-served bars or salads, thoroughly wash fruits & vegetables, no raw meat, ensure meat is cooked well, adhere to best-by dates). Eat as well as you can, prioritizing healthy fruits, vegetables, and protein. Remain active even through fatigue, this can help your energy levels increase. Take your time to get acclimated from sitting to standing Take your temperature daily. Please call with a fever of 100.4 or greater & wait to take medicine for fever until speaking to an oncologist Report any significant constipation/diarrhea (constipation greater than 2 days, or diarrhea greaterthan 3 episodes in a day) * Attachments The following attachments cannot be sent through Care Everywhere. * Cancer: Nausea and Vomiting (Slovak) * Chemotherapy: Managing Side Effects (Sl[place]) documented in this encounter Medications at Time [...] as of this encounter Progress Notes * Alessia Ott RN - 05/08/2024 4:33 PM EDT Patient Name: Martha Rodriguez Patient Age: 59 y.o. Birthdate: 1965 Admit date: 05/08/2024 Attending Physician: No att. providers found Martha Rodriguez, 59 y.o. female with diagnosis of 1. Malignant neoplasm of lower-outer quadrant of left breast of female, estrogen receptor positive is here for chemotherapy infusion of Doxorubicin/Cytoxan/OnPro (green light flashing). PROTOCOL: n/a CYCLE: 1 DAY: 1 S: Patient offers no complaints at this time. O: Chemotherapy orders independently verified for correct drug name, route and dosage per patient'sheight, weight and BSA by Alessia Ott RN and a [facility] pharmacist. Chemotherapy administered per protocol. REACTIONS (DESCRIPTION, TIME, INTERVENTION AND EFFECTIVENESS) none A: Patient tolerated treatment well. Martha Diego Jennifer confirms that all questions and concerns have been addressed prior to departure. P: Return to for care as scheduled. documented in this encounter Plan of Treatment Upcoming Encounters Date Type Department Care Team (Late st Contact Info) Description 07/02/2024 8:00 AM EST Appointment Hematology and Oncology at [place] [phone] 07/02/2024 9:00 AM EST Office Visit Hematology [place] [address] Rosalba Patel MD [facility] [place] [address] 07/02/2024 10:30 AM EST Appointment Hematology [place] [address] 07/07/2024 10:30 AM EST TH Visit (TeleHealth) Hematology [place] [address] Hem/Onc, Clinic Pharmacist None 07/17/2024 9:00 AM EST Appointment Hematology [place] [address] 07/17/2024 10:00 AM EST Office Visit Hematology [place] [address] Rosalba Patel MD [facility] [place] [address] 07/17/2024 11:30 AM EST Appointment Hematology [place] [address] 07/30/2024 7:30 AM EST Appointment Hematology [place] [address] 07/30/2024 8:30 AM EST Office Visit Hematology [place] [address] Yamileth Nur APRN [facility] [place] [place] [address] 07/30/2024 10:00 AM EST Appointment Hematology [place] [address] 08/13/2024 8:00 AM EST Appointment Hematology [place] [address] 08/13/2024 9:00 AM EST Office Visit Hematology [place] [address] Rosalba Patel MD [facility] [place] [place] [address] 08/13/2024 10:30 AM EST Appointment Hematology [place] [address] documented as of this encounter Visit Diagnoses [...] 2 Minutes, ONCE, 1 dose, On Millie 05/08/24 at 1230, Alternative administration of IV push over 2 minutes is a recommendation from the alternative financing specialist. Administer prior to chemotherapy., Routine Given 05/08/2024 2:17 PM EDT 130 mg cycloPHOSphamide (Cytoxan) 1,140 mg in sodium chloride 0.9% 307 mL infusion 1,140 mg (600 mg/m2/dose ? 1.9 m2 Treatment Plan BSA from Recorded weight), Intravenous, ONCE, 1 dose, On Millie 05/08/24 at 1330, Administer over 30 Minutes, Warning Vesicant/Irritant Medication New Bag 05/08/2024 2:55 PM EDT 1,140 mg 614 mL/hr dexAMETHasone (Decadron) tablet 10 mg 10 mg, Oral, ONCE, 1 dose, On Millie 05/08/24 at 1230, Administer prior to chemotherapy, Routine Given 05/08/2024 2:14 PM EDT 10 mg DOXOrubicin (Adriamycin) injection 114 mg 114 mg (60 mg/m2/dose ? 1.9 m2 Treatment Plan BSA from Recorded weight), Intravenous, ONCE, 1 dose, On Millie 05/08/24 at 1330, Administer each syringe over a minimum of 3 minutes per syringe. Warning Vesicant/Irritant Medication Given 05/08/2024 2:46 PM EDT 114 mg LORazepam (Ativan) tablet 0.5 mg 0.5 mg, Oral, ONCE, 1 dose, On Millie 05/08/24 at 1230, Administer prior to chemotherapy, Routine Given 05/08/2024 2:14 PM EDT 0.5 mg palonosetron (Aloxi) (0.05 mg/mL) injection 0.25 mg 0.25 mg, Intravenous, ONCE, 1 dose, On Millie 05/08/24 at 1230, Administer over 30 seconds. Administer prior to chemotherapy, Routine Given 05/08/2024 2:16 PM EDT 0.25 mg pegfilgrastim (Neulasta Onpro) (6 mg/0.6 mL) injection kit 6 mg 6 mg, Subcutaneous, ONCE, 1 dose, On Millie 05/08/24 at 1230, Allow the prefilled syringe co-packaged with the on-body injector to reach room temperature at least 30 minutes prior to administration., Routine, This agent is restricted to outpatient use. Is this drug being given as an outpatient? Yes Given 05/08/2024 3:15 PM EDT 6 mg Right Arm documented in this encounter Care Teams Glue Jointer Feeder Relationship Specialty Start Date End Date Nat Nicolas, VESSEL SPECIALIST [address] [place] [address] PCP - General Family Medicine 04/02/24 documented as of this encounter
--- OUTSIDE RECORDS SUMMARY | 2024-06-21 16:13 | XMS_ITS | Encounter Summary ---
[place] [address] Care Team Providers Care Railroader Name Role Phone Nat Nicolas APRN Primary Care Provider Reason for Referral * Diagnostic Test (Routine) - Closed Specialty Diagnoses / Procedures Referred By Contgiuliana t Referred To Contact Cardiology Diagnoses Malignant neoplasm of lower-outer quadrant of left breast of female, estrogen receptor positive Procedures Echocardiogram Transthoracic Dallin Falcon APRN [facility] [place] [address] [facility] [place] [address] Referral ID Status Reason Start Date Expiration Date V isits Requested Visits Authorized [id number] Closed Specialty Service Requested 04/30/2024 04/30/2025 1 1 Reason for Visit * Diagnostic Test (Routine) - Closed Specialty Diagnoses / Procedures Referred By Contgiuliana t Referred To Contact Cardiology Diagnoses Malignant neoplasm of lower-outer quadrant of left breast of female, estrogen receptor positive Procedures Echocardiogram Transthoracic Dallin Falcon APRN [facility] [place] [address] [facility] [place] [address] Referral ID Status Reason Start Date Expiration Date V isits Requested Visits Authorized [id number] Closed Specialty Service Requested 04/30/2024 04/30/2025 1 1 Encounter Details Date Type Department Care Team (Latest Contact Info) Description 05/05/2024 10:45 AM EDT - 05/05/2024 12:32 PM EDT Hospital Encounter Non-[place] [id number] Dallin Falcon APRN [facility] [place] [address] Malignant neoplasm of lower-outer quadrant [...] AM EST Appointment Hematology [place] [address] 07/02/2024 9:00 AM EST Office Visit [place] [address] Rosalba Patel MD [facility] [place] [address] 07/02/2024 10:30 AM EST Appointment H[place]ology [place] [address] 07/07/2024 10:30 AM EST TH Visit (TeleHealth) [place] [address] Hem/Onc, Clinic Pharmacist None 07/17/2024 9:00 AM EST Appointment H[place]ology [place] [address] 07/17/2024 10:00 AM EST Office Visit [place]ology [place] [address] Rosalba Patel MD [facility] [place] [address] 07/17/2024 11:30 AM EST Appointment H[place]ology [place] [address] 07/30/2024 7:30 AM EST Appointment H[place]ology [place] [address] 07/30/2024 8:30 AM EST Office Visit Hematology and Oncology at [place] [phone] Dallin Falcon APRN [facility] [place] [address] 07/30/2024 10:00 AM EST Appointment [place]ology [place] [address] 08/13/2024 8:00 AM EST Appointment [place]ology [place] [address] 08/13/2024 9:00 AM EST Office Visit [place]ology [place] [address] Rosalba Patel MD [facility] [place] [address] 08/13/2024 10:30 AM EST Appointment H[place]ology [place] [address] documented as of this encounter Procedures Procedure Name Priority Date/Time Associated Diagnosis Comments ECHO COMPLETE Routine 05/05/2024 12:09 PM EDT Malignant neoplasm of lower-outer quadrant of left breast of female, estrogen receptor positive documented in this encounter Results * ECHO COMPLETE (05/05/2024 12:09 PM EDT) EF 59 HEARTLAB SYSTEM Anatomical Region Laterality Modality Cardiac Other 05/05/2024 11:2 2 AM EDT Narrative 05/05/2024 1:06 PM EDT [address] [place] [address] ? Echocardiogram Report Name: EARL RODRIGUEZ ?Study Date: 05/05/2024 11:22 AMBP: 127/82 mmHg : 1965 ? Height: 164 cm ? Account: [id number] Age: 59 yrs ? Weight: 82 kg Gender: Female ?BSA: 1.9 m2 Ordering Physician: DALLIN FALCON Referring Physician: DALLIN FALCON Performed By: NATALIIA Haque Reason For Study: Malignant neoplasm of lower-outer quadrant of left breast of female Exam Location: [facility]. Interpretation Summary 1. Mildly increased left [...] regurgitation. No prior study for comparison. Procedure Complete-[id number]. Satisfactory quality. There is normal sinus rhythm. [...] Note Chantel Villavicencio MD - 05/05/2024 [address] [place] [address] Echocardiogram Report Name: EARL RODRIGUEZ Study Date: 411:22 AMBP: 127/82 mmHg : 1965 Height: 164 cm Account: [id number] Age: 59 yrs Weight: 82 kg Gender: Female BSA: 1.9 m2 Ordering Physician: DALLIN FALCON Referring Physician: DALLIN FALCON Performed By: NATALIIA Haque Reason For Study: Malignant neoplasm of lower-outer quadrant of leftbreast of female Exam Location: [facility]. Interpretation Summary 1. Mildly increased left [...] regurgitation. No prior study for comparison. Procedure Complete-[id number]. Satisfactory quality. There is normal sinus rhythm. [...] 3-5moderate 5 - 6-14large Aneurysmal 15-16diffuse Dallin Falcon APRN ECHO ORDERABLES documented in this encounter Visit Diagnoses Diagnosis Malignant neoplasm of lower-outer quadrant of left breast of female, estrogen receptor positive documented in this encounter Care Teams Railroader Relationship Specialty Start Date End Date Nat Nicolas APRN [address] [place] [address] PCP - General Family Medicine 04/02/24 documented as of this encounter
--- OUTSIDE RECORDS SUMMARY | 2024-06-21 16:13 | XMS_ITS | Encounter Summary ---
Author Organization [facility] [place] [address] Care Team Providers Care Grain Broker Name Role Phone Nicolas Nat Malloy APRN Primary Care Provider Encounter Details Date Type Department Care Team (Latest Contact Info) Description 04/25/2024 Travel Social History Tobacco Use Types Packs/Day [...] AM EST [facility] [place] [address] 07/02/2024 9:00 AM EST Office Visit Hematology [place] [address] Rosalba Patel MD [facility] [place] [address] 07/02/2024 10:30 AM EST Appointment Hematology [place] [address] 07/07/2024 10:30 AM EST TH Visit (TeleHealth) Hematology [place] [address] Hem/Onc, Clinic Pharmacist None 07/17/2024 9:00 AM EST Appointment Hematology [place] [address] 07/17/2024 10:00 AM EST Office Visit Hematology [place] [address] Rosalba Patel MD [facility] [place] [address] 07/17/2024 11:30 AM EST Appointment Hematology [place] [address] 07/30/2024 7:30 AM EST Appointment Hematology [place] [address] 07/30/2024 8:30 AM EST Office Visit Hematology [place] [address] Yamileth Nur APRN [facility] [place] [address] 07/30/2024 10:00 AM EST Appointment Hematology [place] [address] 08/13/2024 8:00 AM EST Appointment Hematology [place] [address] 08/13/2024 9:00 AM EST Office Visit Hematology [place] [address] Rosalba Patel MD [facility] [place] [address] 08/13/2024 10:30 AM EST Appointment Hematology [place] [address] documented as of this encounter Visit Diagnoses Not on filedocumented in this encounter Care Teams Grain Broker Relationship Specialty Start Date End Date Nat Nicolas, CONTENT DESIGNER [address] [place] [address] PCP - General Family Medicine 04/02/24 documented as of this encounter
--- OUTSIDE RECORDS SUMMARY | 2024-06-21 16:13 | XMS_ITS | Encounter Summary ---
Author Organization [facility] [place] [address] Care Team Providers Care Patternmaker Apprentice Wood Name Role Phone Nat Nicolas APRN Primary Care Provider Reason for Visit * Reason Comments Advice Only * Consultation (Routine) - Closed Specialty Diagnoses / Procedures Referred By Laurel garrett Referred To Contact Hematology and Oncology Diagnoses Breast cancer Procedures NEW PATIENT Daily Amaral MD [facility] [place] [address] Rosalba Patel MD [facility] [place] [place] [address] Referral ID Status Reason Start Date Expiration Date Visits Re quested Visits Authorized [id number] Closed 04/16/2024 04/16/2025 1 1 Encounter Details Date Type Department Care Team (Late st Contact Info) Description 04/16/2024 2:00 PM EDT Office Visit [place] [address] Rosalba Patel MD [facility] [place] [place] [address] Malignant neoplasm of lower-outer quadrant of left breast of female, estrogen receptor positive (Primary Dx); H/O insulin dependent diabetes mellitus Social History Tobacco Use Types Packs/Day Years [...] Sign Reading Time Taken Comments Blood Pressure 143/106 04/16/2024 2:05 PM EDT provider notified Pulse 90 04/16/2024 2:05 PM EDT Temperature 36.6 ??C (97.9 ??F) 04/16/2024 2 :05 PM EDT Respiratory Rate 18 04/16/2024 2:05 PM EDT Oxygen Saturation 97% 04/16/2024 2:0 5 PM EDT Inhaled Oxygen Concentration - - Weight 79.3 kg (174 lb 13.2 oz) 04/16/2024 2:05 PM EDT Height 164.2 cm (5' 4.65) 04/16/2024 2 :05 PM EDT Body Mass Index 29.41 04/16/2024 2:05 PM EDT documented in this encounter Progress Notes * Rosalba Patel MD - 04/16/2024 2:00 PM EDT Images from the original note were not included. [facility] Patient Name: Martha Rodriguez is a 59 y.o. female from [place], [place] (1 hour 10 min away). : 1965 Visit Date: 04/22/2024 PCP: Nat Nicolas APRN Breast surgical oncology: Lashay Amaral MD Radiation oncology: Referral pending Referring provider: Daily Amaral MD [facility] [place] [address] Reason for visit: Consultation was requested by Dr. Amaral for new diagnosis of breast cancer. Summary: Martha Rodriguez is a 59 y.o. 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, ER + / AZ + / HER2 -, diagnosed on 03/06/2024, clinically node positive (biopsy pending). She presents today to establish care and discuss next steps. DIAGNOSIS: Breast cancer pathology & staging: Clinical stage: cT2NX Pathological stage: pending surgery Pathology: Invasive lobular carcinoma, grade 2, LVI-. Surgical pathology pending. Joel status: 4 abnormal nodes seen on MRI - awaiting biopsy Receptor status: ER positive (>90%, strong) AZ positive (>70% strong) HER2 negative by FISH, total # signals for HER2 = 321, total # signals for CEP- 17 = 184; ratio = 1.7, Ave # HER2 signal/cell = 5.4 Oncotype DX RS: N/A Genetics: obtain records from [facility] NGS: N/A Menopausal Status: Post-menopausal [place]: ONCOLOGIC HX: 03/06/2024-screening mammogram Left breast: There [...] grade 2, LVI- ER positive (>90%, strong) AZ positive (>70% strong) HER2 negative by FISH, [...] is no pectoralis or chest wall involvement. Pendin/4 - CT CAP 04/29 - BS 05/08 - biopsy Pending scheduling of biopsy of RIGHT breast mass, and LEFT axillary LN Assessment & Plan: Martha Rodriguez is a 59 y.o. female with PMHx significant for but not limited to HTN, diabetes, migraines, medication non-compliance, and new diagnosis of multifocal invasive lobular carcinoma of the LEFT breast, ER+AZ+Her2-, who presents today to establish care. Today we discussed the diagnosis of breast cancer in broad strokes. I explained the evolution from atypia to invasive disease. I reviewed her imaging and pathology reports with her and her family, explaining in great detail. We discussed the rationale for complete staging. She is scheduled for CT and BS on 04/25 and 04/29, respectively. If the disease is localized I will recommend neoadjuvant chemotherapy. I would not recommend hormonal therapy alone given the number of suspicious nodes seen on MRI and appreciated on exam. Given the number of suspicious nodes is greater than 3, Oncotype is not indicated. I explained the rationale for neoadjuvant chemotherapy is to improve surgical outcomes, specifically avoiding an axillary lymph node dissection. Given the number of abnormal nodes seen on MRI (at least 4), I would recommend dose dense AC-T. We briefly discussed the schedule of dose dense AC-T, every 2 weeks for atotal of 8 treatments. We briefly discussed hormonal therapy with letrozole. I described this is anoral pill taken once a day with side effects including hot flashes arthralgias mood change weight change and vaginal dryness. She would also be a candidate for CDK 4 6 inhibitor with Ribociclib. If the disease is metastatic I let her know that the chemotherapy would not be the first approach to treatment. I emphasized the importance of her tumors biomarkers allowing for a more targeted approach with hormonal therapy. I will see her back on 04/30 to finalize plans. She has another mass in the right breast, measuring 0.8 cm, that also requires biopsy. If positive,this would change the surgical plan but is unlikely to influence the chemotherapy plan. This is scheduled on 05/08. She and her family asked excellent questions which I answered to the best of my ability. I gave da card and contact information and encouraged her to reach out with any questions or concerns. # Left breast cancer, ILC, ER positive, AZ positive, HER2 negative - Risk scoring: Awaiting staging scans and additional biopsies - Screening for metastatic disease: CT and bone scan scheduled for 04/25 and 04/29 - Imaging: As above -Treatment: Pending staging scans - neoadjuvant ddAC-T vs first-line hormonal therapy with AI + CDK4/6 Monitoring Treatment related toxicities: N/A Monitoring compliance/adherence: N/A Bone health: DEXA scan will be needed when hormonal therapy begins Has history of vitamin D deficiency; recheck level Encourage appropriate supplementation and weightbearing exercise #Insulin-dependent diabetes High risk for CIPN - encourage use of frozen gloves/mitts PCP co-management encouraged Consider nutrition consult Recommendations/Plan: Await staging scans Neoadjuvant chemotherapy versus first-line hormonal therapy pending above Follow-up right breast biopsy, left axillary joel biopsy Records from [facility] (genetic testing) and PCP Follow-up: RTC on 04/30 for 60 minutes with MD/CARRIAGE OPERATOR to finalize treatment plan Interval History: 04/16/2024- Martha presents with daughters Colleen and Iggy, grandson Jackson, and Patel. She is understandably anxious about the diagnosis. She is able to continue working and has good social support. #Recovery s/p surgery: n/a #Breast concerns: She has tenderness to her left breast that makes it difficult to do her job. 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 She does not have swelling in her arm. She is not currently on hormonal therapy-the following are her baseline: Monitoring treatment related side effects #Arthralgia: None #Myalgia: None #H/o hot flashes: Occasional #Fatigue: None #Sexual health not discussed #Neuropathy: None #History of cardiac disease: Denies #Monitoring compliance with/adherence to treatment Not applicable #ROS: # H/O chronic cough: No #Headaches: Yes, history of migraines, well-controlled #Back/bone pain: No #Weight loss: 10lb unintentional over last 6 months #Medications: Needs to be updated in the chart - several she is on that are not listed including insulin #Risk factors: History Oral contraceptive use None Menarche age 14 LMP Years ago Menopausal symptoms Mild hot flashes Personal history of hormone replacement therapy None Other menopausal sx control None Family history of breast cancer None Family history of ovarian cancer Sister Family history of prostate cancer * Ashkenazi Bahai heritage * Personal history of known genetic mutation Sister is BRCA2 positive, Martha is negative by report Review of Symptoms: As per HPI, all other systems were reviewed and are negative. Review of Systems - Oncology Allergies: Allergies as of 04/16/2024 - Review Complete 04/16/2024 Allergen Reaction Noted Sulfa (sulfonamide antibiotics) Rash 02/07/2022 Medical History: Past Medical History: Diagnosis Date HTN (hypertension) 02/14/2013 Migraine headache 02/14/2013 Current Medications: Current Outpatient Medications Medication Sig hydroCHLOROthiazide 12.5 mg tablet Take 12.5 mg [...] mouth daily. (Patient not taking: Reported on04/09/2024) benzonatate (TESSALON) 100 mg Capsule Take 1 capsule by mouth 3 times daily as needed for Cough. (Patient not taking: Reported on 04/09/2024) ibuprofen (ADVIL;MOTRIN) 600 mg Tablet Take 1 tablet by mouth every 6 hours as needed for Pain. (Patient not taking: Reported on 04/16/2024) meclizine (ANTIVERT) 25 mg tablet Take 1 tablet by mouth 3 times daily as needed for Dizziness. (Patient not taking: Reported on 04/09/2024) Surgical History: Past Surgical History: Procedure Laterality Date MAMMO US BIOPSY LEFT Left 04/02/2024 Mammo Us Biopsy Left 04/02/2024 Dorota Anderson MD [facility] RAD MAMMOGRAPHY Family History: Family History Problem (# of Occurrences) Relation (Name,Age of Onset) Ovarian Cancer (2) Mother (70): 's. of same, Sister (59) Negative family history of: Breast Cancer Social History: reports that she has never smoked. She has never used smokeless tobacco. She reports that she does not drink alcohol and does not use drugs. Physical Exam: Vital signs and weight : Wt Readings from Last 3 Encounters: 04/16/24 79.3 kg (174 lb 13.2 oz) 04/09/24 81.3 kg (179 lb 3.7 oz) 04/04/24 83.9 kg (185 lb) Temp Readings from Last 3 Encounters: 04/16/24 36.6 ??C (97.9 ??F) (Temporal) 04/09/24 36.5 ??C (97.7 ??F) (Temporal) 08/02/15 37.3 ??C (99.1 ??F) (Oral) BP Readings from Last 3 Encounters: 04/16/24 (!) 143/106 04/09/24 144/89 02/07/22 (!) 221/117 Pulse Readings from Last 3 Encounters: 04/16/24 90 04/09/24 (!) 109 02/07/22 93 ECOG PS: 1 Physical Exam Vitals reviewed. [...] normal. Thought Content: Thought content normal. Labs: CBC: Lab Results Component Value Date WBC 13.8 (H) 02/14/2013 RBC 4.88 02/14/2013 HGB 15.2 02/14/2013 HCT 43.6 02/14/2013 MCV 89.3 02/14/2013 MCH 31.1 02/14/2013 MCHC 34.9 02/14/2013 PLATELET 330 02/14/2013 RDWCV 12.5 02/14/2013 CMP: Lab Results Component Value Date NA 136 02/14/2013 K 3.2 (L) 02/14/2013 CL 99 02/14/2013 CO2 22 02/14/2013 BUN 14 02/14/2013 CREATININE 0.94 02/14/2013 GLUCOSE 148 02/14/2013 ESTGFR >60 02/14/2013 No results found for: ALT, AST, GGT, ALKPHOS, BILITOT, BILIDIR, ALBUMIN, PROT Pathology: Biopsy - Pathology : Status: Final result Visible to patient: Yes (not seen) Next appt: 04/25/2024 at 10:35 AM in Lab ([facility]) Dx: Abnormal finding on breast imaging 0 Result Notes Component Ref Range & Units Case Report Surgical Pathology Report Case: [id number] Authorizing Provider: Dorota Anderson MD Collected: 04/02/2024 0912 Ordering Location: Mammography at [facility] Received: 04/02/2024 1254 Pathologist: Keyla Rodas DO Specimen: Breast, Left, LEFT BREAST US BX Final Diagnosis A. Left breast, core needle biopsy: - Invasive lobular carcinoma, intermediate grade (modified SBR score = 7), measuring at least 14 mm. - Lymphovascular invasion not identified. at 1151 Additional Studies Estrogen Receptor (ER) immunoreactivity: Positive Cancer cells with immunostaining: >90% Stain intensity: Strong Progesterone Receptor (AZ) immunoreactivity: Positive Cancer cells with immunostainin% Stain [...] The assays were performed according to the hull drafter's instructions using Anti-ER (SP1) and Anti-AZ (16) antibodies. These tests were developed and their performance characteristics determined by [facility]. They may not have been cleared or [...] 0.2 cm-1.5 x 0.2 cm Tissue Description: [place]-white fibrofatty needle core biopsies. Sections/Processing: Entirely submitted in 1 cassette labeled A1. Ischemic time: 1 minute ajw Result Note THIS RESULT REQUIRES PHYSICIAN/KINGS FOLLOW UP Abnormal [facility] Specimen Collected: 04/02/24 09:12 Last Resulted: [...] Reading Date Result Priority Dorota Anderson MD [phone] 03/10/2024 Narrative & Impression INTERPRETATION OF OUTSIDE BREAST IMAGING I have been asked to consult on this patient by Dr. Nicolas because he/she believes a review of this study may change or alter the care of this patient. STUDIES FROM: [facility] CLINICAL HISTORY: ? bx; Sending Institution [facility]; Date of exam [id number]; I believe [...] cancers. Please note: The interpretation of the [facility] Breast Imaging Radiologist subspecialist may differ from the original radiologists interpretation. This is usually not due to a deficiency of the original interpreting radiologist, rather due to the greater skill level afforded by sub-specialization in the field and/or reasonable variations in interpretations. If you have a concern regarding the D- interpretation you may contact the [facility] [place] [facility] at . Thank you for letting us participate in the care of this patient. If you are a health care provider and have any questions regarding this report, please contact the number below. For patients who have questions please contact the health healthcare account manager that requested your imaging first. Electronically signed by: Dorota Anderson MD, [facility] ([phone]), at 03/10/2024 2:42 PM Component 1 mo ago WORKSTATION ID [id number] Resulting Agency [facility] Exam Ended: 03/10/24 07:30 Last Resulted: 03/10/24 [...] Reading Date Result Priority Olive Garcia MD [phone] 2533 04/08/2024 Armond Amezcua MD 04/08/2024 Narrative & Impression EXAMINATION: MRI BREAST WWO CONTRAST BILAT CLINICAL INDICATION: new breast cancer. History of left breast ILC ER/AZ positive TECHNIQUE: Multiplanar sequences were obtained pre- [...] who have questions please contact the health healthcare account manager that requested your imaging first. Component 2 wk ago WORKSTATION ID [id number] Resulting Agency [facility] Exam Ended: 04/08/24 10:00 Last Resulted: 04/08/24 16:02 Status: Final result Visible to patient: Yes (not seen) Next appt: 04/25/2024 at 10:35 AM in Lab ([facility]) Dx: Malignant neoplasm of lower-outer cole... 0 Result Notes Details Reading Physician Reading Date Result Priority Olive Garcia MD [phone] 2533 04/10/2024 Armond Amezcua MD 04/10/2024 Narrative & Impression EXAMINATION: MRI ADDITIONAL VIEW - BREAST CLINICAL INDICATION: new breast cancer - repeat imaging. Left breast ILC, ER-positive AZ positive and HER-2 negative TECHNIQUE: Multiplanar sequences were obtained pre- and post- Dotarem enhancement, to include SPGR weighted dynamic run-off and subtraction sequences obtained after the intravenous administration of 16 ccs of Dotarem. Computer algorithm analysis for lesion detection and kinetic contrast enhancement curve analysis was performed, using [employer] software. COMPARISON STUDIES: Compared and/or correlated with [...] who have questions please contact the health healthcare account manager that requested your imaging first. Component 13 d ago WORKSTATION ID [id number] Resulting Agency [facility] Exam Ended: 04/09/24 14:20 Last Resulted: 04/10/24 12:28 Annual mammogram: Per surgery; not yet due. Schedule pending surgical date. Imaging: CT C/A/P with contrast: scheduled 04/25 Bone scan: scheduled 10/[address]: N/A DEXA scan: Pending Cardiac oncology: EKG: N/A TTE: Pending Counseling: Total time spent: 120 minutes with > 50% spend in discussion of above, [id number] time and coordination of care with the [...] opportunities to askquestions, which we answered. Martha Diego Jennifer has endorsed agreement and understanding of the [...] line with non urgent questions and concerns. Rylie Patel MD Medical Oncology [facility] Application TesterSheet Catcher, [facility] [employer] [facility] Office Cancer.[facility] documented in this encounter Plan of Treatment Upcoming Encounters Date Type Department Care Team (Late st Contact Info) Description 07/02/2024 8:00 AM EST Appointment [place]ematology [place] [address] 07/02/2024 9:00 AM EST Office Visit [place]ematology [place] [address] Rosalba Patel MD [facility] [place] [address] 07/02/2024 10:30 AM EST Appointment Hematology and Oncology at [place] [phone] 07/07/2024 10:30 AM EST TH Visit (TeleHealth) Hematology and Oncology at [place] [phone] Hem/Onc, Clinic Pharmacist None 07/17/2024 9:00 AM EST Appointment [place] [address] 07/17/2024 10:00 AM EST Office Visit Hematology and Oncology at [place] [phone] Rosalba Patel MD [facility] [place] [address] 07/17/2024 11:30 AM EST Appointment [place] [address] 07/30/2024 7:30 AM EST Appointment [place] [address] 07/30/2024 8:30 AM EST Office Visit [place]ology [place] [address] Yamileth Nur APRN [facility] [place] [address] 07/30/2024 10:00 AM EST Appointment [place] [address] 08/13/2024 8:00 AM EST Appointment [place] [address] 08/13/2024 9:00 AM EST Office Visit [place] [address] Rosalba Patel MD [facility] [place] [address] 08/13/2024 10:30 AM EST Appointment [place] [address] documented as of this encounter Visit Diagnoses Diagnosis Malignant neoplasm of lower-outer quadrant of left breast of female, estrogen receptor positive- Primary H/O insulin dependent diabetes mellitus Personal history of other endocrine, metabolic, and immunity disorders documented in this encounter Care Teams Patternmaker Apprentice Wood Relationship Specialty Start Date End Date Nat Nicolas, CAN HANDLER [address] [place] [address] PCP - General Family Medicine 04/02/24 documented as of this encounter
--- OUTSIDE RECORDS SUMMARY | 2024-06-21 16:13 | XMS_ITS | Encounter Summary ---
Author Organization [facility] [place] [address] Care Team Providers Care Garage Worker Name Role Phone NicolasZacNatcarlos Malloy APRN Primary Care Provider Encounter Details Date Type Department Care Team (Latest Contact Info) Description 04/16/2024 Travel Social History Tobacco Use Types Packs/Day [...] AM EST App[facility]ment [facility] [place] [address] 07/02/2024 9:00 AM EST Office Visit [place]ematology [place] [address] Rosalba Patel MD [facility] [place] [address] 07/02/2024 10:30 AM EST Appointment Hematology [place] [address] 07/07/2024 10:30 AM EST TH Visit (TeleHealth) [place]ology [place] [address] Hem/Onc, Clinic Pharmacist None 07/17/2024 9:00 AM EST Appointment Hematology [place] [address] 07/17/2024 10:00 AM EST Office Visit [place]ematology [place] [address] Rosalba Patel MD [facility] [place] [address] 07/17/2024 11:30 AM EST Appointment [place]ology [place] [address] 07/30/2024 7:30 AM EST Appointment Hematology [place] [address] 07/30/2024 8:30 AM EST Office Visit [place]ematology [place] [address] Yamileth Nur APRN [facility] [place] [address] 07/30/2024 10:00 AM EST Appointment Hematology [place] [address] 08/13/2024 8:00 AM EST Appointment Hematology [place] [address] 08/13/2024 9:00 AM EST Office Visit [place]ematology [place] [address] Rosalba Patel MD [facility] [place] [address] 08/13/2024 10:30 AM EST Appointment [place]ematology [place] [address] documented as of this encounter Visit Diagnoses Not on filedocumented in this encounter Care Teams Garage Worker Relationship Specialty Start Date End Date Nat Nicolas, SPEECH CLINICIAN [address] [place] [address] PCP - General Family Medicine 04/02/24 documented as of this encounter
--- OUTSIDE RECORDS SUMMARY | 2024-06-21 16:13 | XMS_ITS | Encounter Summary ---
[place] [address] Care Team Providers Care Compensation Agent Name Role Phone Nat Nicloas APRN Primary Care Provider Encounter Details Date Type Department Care Team (Late st Contact Info) Description 05/07/2024 Telephone Hematology [place] [address] Caroline Bell, RN Social History Tobacco Use [...] Telephone Encounter - Caroline Bell RN - 05/07/2024 9:45 AM EDT 05/07 1030 Called patient for C1D1 chemo teaching and received a recorded message that calls are not being accepted currently 1400 Called patient and received same message that calls are not being accepted at this time and tocall back. 1530 and 1630 Attempted to talk with patient for chemo teaching and same message received as above. C1D1 scheduled on 05/08/[address] Patel 1300 pharmacy teach 1400 chemo Patient scheduled to receive: DOXOrubicin / CYCLOPHOSPHAMIDE (DOSE DENSE) followed by PACLitaxeL (DOSE DENSE) documented in this encounter Plan of Treatment Upcoming Encounters Date Type Department Care Team (Late st Contact Info) Description 07/02/2024 8:00 AM EST Appointment Hematology and Oncology at [place] [phone] 07/02/2024 9:00 AM EST Office Visit Hematology and Oncology at [place] [phone] Rosalba Patel MD [facility] [place] [address] 07/02/2024 10:30 AM EST Appointment Hematology [place] [address] 07/07/2024 10:30 AM EST TH Visit (TeleHealth) [place]ematology [place] [address] Hem/Onc, Clinic Pharmacist None 07/17/2024 9:00 AM EST Appointment Hematology [place] [address] 07/17/2024 10:00 AM EST Office Visit [place]ematology [place] [address] Rosalba Patel MD [facility] [place] [address] 07/17/2024 11:30 AM EST Appointment H[place]ology [place] [address] 07/30/2024 7:30 AM EST Appointment [place]ematology [place] [address] 07/30/2024 8:30 AM EST Office Visit [place]ematology [place] [address] Yamileth Nur APRN [facility] [place] [address] 07/30/2024 10:00 AM EST Appointment Hematology [place] [address] 08/13/2024 8:00 AM EST Appointment Hematology [place] [address] 08/13/2024 9:00 AM EST Office Visit [place]ematology [place] [address] Rosalba Patel MD [facility] [place] [address] 08/13/2024 10:30 AM EST Appointment Hematology and Oncology at [place] [phone] documented as of this encounter Visit Diagnoses Not on filedocumented in this encounter Care Teams Compensation Agent Relationship Specialty Start Date End Date Nat Nicolas APRN [address] [place] [address] PCP - General Family Medicine 04/02/24 documented as of this encounter
--- OUTSIDE RECORDS SUMMARY | 2024-06-21 16:13 | XMS_ITS | Encounter Summary ---
[place] [address] Care Team Providers Care Director Of Public Health Name Role Phone Nat Nicolas APRN Primary Care Provider Reason for Referral * Diagnostic Test (Routine) - Closed Specialty Diagnoses / Procedures Referred By Laurel garrett Referred To Contact Cardiology Diagnoses Malignant neoplasm of lower-outer quadrant of left breast of female, estrogen receptor positive Procedures Echocardiogram Transthoracic Dallin Falcon APRN [facility] [place] [address] [facility] [place] [address] Referral ID Status Reason Start Date Expiration Date V isits Requested Visits Authorized [id number] Closed Specialty Service Requested 04/30/2024 04/30/2025 1 1 * Diagnostic Test (Routine) - Closed Specialty Diagnoses / Procedures Referred By Laurel garrett Referred To Contact Radiology Diagnoses Malignant neoplasm of lower-outer quadrant of left breast of female, estrogen receptor positive Procedures IR Mediport Placement Dallin Falcon APRN [facility] [place] [address] [facility] [place] [address] Referral ID Status Reason Start Date Expiration Date V isits Requested Visits Authorized [id number] Closed Specialty Service Requested 04/30/2024 10/29/2025 1 1 * Consultation (STAT) - Closed Specialty Diagnoses / Procedures Referred By Laurel t Referred To Contact Genetics Diagnoses Malignant neoplasm of lower-outer quadrant of left breast of female, estrogen receptor positive Rosalba Patel MD [facility] [place] [address] [facility] Hem [place]c [address] [place] [address] Referral ID Status Reason Start Date Expiration Date V isits Requested Visits Authorized [id number] Closed Consult, Test & Treat 04/30/2024 04/30/2025 1 1 Reason for Visit * Reason Comments Follow-up Encounter Details Date Type Department Care Team (Late Contact Info) Description 04/30/2024 2:00 PM EDT Office Visit Hematology [place] [address] Rosalba Patel MD [facility] [place] [address] Malignant neoplasm of lower-outer quadrant of left [...] Sign Reading Time Taken Comments Blood Pressure 180/107 04/30/2024 1:58 PM EDT Pulse 82 04/30/2024 1:58 PM EDT Temperature 36.5 ??C (97.7 ??F) 04/30/2024 1:58 PM ED T Respiratory Rate 18 04/30/2024 1:58 PM EDT Oxygen Saturation 96% 04/30/2024 1:58 PM EDT Inhaled Oxygen Concentration - - Weight 82 kg (180 lb 12.4 oz) 04/30/2024 1:58 PM EDT Height 163.9 cm (5' 4.53) 04/30/2024 1:58 PM ED T Body Mass Index 30.52 04/30/2024 1:58 PM EDT documented in this encounter Progress Notes * Rosalba Patel MD - 04/30/2024 2:00 PM EDT Images from the original note were not included. [facility] Patient Name: Martha Estrada is a 59 y.o. female from [place], [place] (1 hour 10 min away). : 1965 Visit Date: 05/07/2024 PCP: Nat Nicolas APRN Breast surgical oncology: Lashay Amaral MD Radiation oncology: Referral pending Reason for visit: Follow-up to discuss neoadjuvant chemotherapy plan Summary: Martha Estrada is a 59 y.o. 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, ER + / AR + / HER2 -, diagnosed on 03/06/2024, clinically node positive; possible contralateral disease (biopsy pending). She presents today for scheduled follow-up to discuss next steps. DIAGNOSIS: Breast cancer pathology & staging: Clinical stage: cT2NX Pathological stage: pending surgery Pathology: Invasive lobular carcinoma, grade 2, LVI-. Surgical pathology pending. Joel status: 4 abnormal nodes seen on MRI - awaiting biopsy Receptor status: ER positive (>90%, strong) AR positive (>70% strong) HER2 negative by FISH, total # signals for HER2 = 321, total # signals for CEP- 17 = 184; ratio = 1.7, Ave # HER2 signal/cell = 5.4 Oncotype DX RS: N/A Genetics: 02/23/2028- [facility] test for BRCA1 only ([facility]) - referred for updated testing NGS: N/A Menopausal Status: Post-menopausal [place]: Pending ONCOLOGIC HX: 03/06/2024-screening mammogram Left breast: There [...] grade 2, LVI- ER positive (>90%, strong) AR positive (>70% strong) HER2 negative by FISH, [...] is no pectoralis or chest wall involvement. 10/4 - CT CAP - no evidence of metastatic disease; possible retroclavicular LN involvement 04/29 - BS - no skeletal metastases Pendin/17 - biopsy Pending scheduling of biopsy of RIGHT breast mass, and LEFT axillary LN Assessment & Plan: Martha Estrada is a 59 y.o. female with PMHx significant for but not limited to HTN, diabetes, migraines, medication non-compliance, and new diagnosis of multifocal invasive lobular carcinoma of the LEFT breast, ER+AR+Her2-, who presents today in scheduled follow-up to discuss neoadjuvant chemotherapy. Today we reviewed the recent CT and bone scan results which thankfully showed no evidence of metastatic disease. I reviewed the recommended treatment plan for ddAC-T with curative intent. This is a standard chemotherapy for node positive breast cancer. She would receive four cycles of AC (adriamycin and cyclophosphamide) given IV over two hours every two weeks for four cycles, followed by paclitaxel given over four hours every two weeks for four cycles. The side effects of AC would include nausea and vomiting for one to four days, mouth sores, pain on swallowing, stomach upset, and diarrhea, a fall in herwhite cell count, which would put her at risk of developing a fever or infection with chemotherapy.She would receive an injection of a pegfilgrastim, a growth factor for the bone marrow, to be giventhe day after chemotherapy, to reduce the risk of developing a fever or infection, likely via the OnPro device which is placed on the skin the day of her chemotherapy cycle. She will begin to lose her scalp hair on day 15, and most of the hair will be gone by day 21. She may also see thinning of eyelashes and eyebrows. There is a 2% risk of injury to the heart muscle, and a 0.2% risk of preleukemia or leukemia, which are generally very difficult to treat. She may have fatigue and chemo-brain with difficulty with concentration, memory, or verbal recall. The side effects of paclitaxel may include infusional reactions such as flushing, chest tightness, or shortness of breath, minor nausea, mouth sores, diarrhea, numbness and tingling in her fingers or toes, cracking, splitting, or lysis of fingernails or toenails, and ongoing loss of hair. The paclitaxel would not require the pegfilgrastim. If she is interested, we can help her arrange a cold cap, which may decrease her risk of losing her hair, and I asked Ana Arvizu to meet with her to discuss the cold cap. Before getting started, Martha Estrada will need placement of a mediport in the left chest wall, an echocardiogram, and a chemotherapy teaching session with one of our pharmacists. I will request a meeting with the Familial Cancer program to discuss genetic testing. She will plan to have surgery about 2-4 weeks after the last dose of chemotherapy. She will start radiotherapy about three to four weeks after that. She will start endocrine therapy about two weeks after the last fraction of radiotherapy. I would recommend treatment with letrozole. The potential side effects include hot flashes, night sweats, mood swings, vaginal dryness, loss of libido, a fall in her bone density, pain or stiffness of her joints, an increase in her cholesterol, and an increase in her blood pressure. She is a candidate for CDK 4/6 inhibitor with ribiciclib as well. We have not discussed this in detail yet but I have mentioned it was a possibility in the future. # Left breast cancer, ILC, ER positive, AR positive, HER2 negative # Right breast mass, biopsy pending - Risk scoring: - Screening for metastatic disease: CT and bone scan 04/25 and 04/29 - no distant metastases - Imaging: As above -Treatment: Recommended neoadjuvant ddAC-T Monitoring Treatment related toxicities: N/A Monitoring compliance/adherence: N/A Bone health: DEXA scan will be needed when hormonal therapy begins Has history of vitamin D deficiency; recheck level Encourage appropriate supplementation and weightbearing exercise #Insulin-dependent diabetes High risk for CIPN - encourage use of frozen gloves/mitts PCP co-management encouraged Consider nutrition consult Recommendations/Plan: Neoadjuvant chemotherapy with ddAC-T; will need echo, mediport, chemo teach Follow-up right breast biopsy, left axillary joel biopsy Genetics referral Follow-up: RTC in 1-2 weeks for start of neoadj ddAC-T Interval History: 04/30/2024 Here to discuss staging scans and next steps Martha presents with Patel, and family on the phone She is doing well. Relieved to hear that the scans did not show metastatic disease. 04/16/2024- Martha presents with daughters Colleen and [...] Family history of prostate cancer * Ashkenazi Moravian heritage * Personal history of known genetic mutation Sister is BRCA2? positive, Martha is negative by report Review of Symptoms: As per HPI, all other systems were reviewed and are negative. Review of Systems - Oncology Allergies: Allergies as of 04/30/2024 - Review Complete 04/30/2024 Allergen Reaction Noted Sulfa (sulfonamide antibiotics) Rash [...] tablet Take 25 mg by mouth daily. lidocaine-prilocaine (EMLA) Cream Apply topically 60 minutes prior to accessing port. Apply a thicklayer of cream to designated site of intact skin. Cover site with occlusive dressing. lisinopriL (Zestril) 20 mg Tablet Take 0.5 [...] IR Mediport Placement 05/05/[address] [facility] INTER[facility] RAD MAMMO US BIOPSY LEFT Left 04/02/2024 Mammo Us Biopsy Left 04/02/[address] [facility] RAD MAMMOGRAPHY Family History: Family History [...] : Wt Readings from Last 3 Encounters: 04/30/24 82 kg (180 lb 12.4 oz) 04/16/24 79.3 kg (174 lb 13.2 oz) 04/09/24 81.3 kg (179 lb 3.7 oz) Temp Readings from Last 3 Encounters: 05/05/24 36.8 ??C (98.3 ??F) (Temporal) 04/30/24 36.5 ??C (97.7 ??F) (Temporal) 04/16/24 36.6 ??C (97.9 ??F) (Temporal) BP Readings from Last 3 Encounters: 05/05/24 143/78 04/30/24 (!) 180/107 04/16/24 (!) 143/106 Pulse Readings from Last 3 Encounters: 05/05/24 87 04/30/24 82 04/16/24 90 ECOG PS: 1 Physical Exam Vitals reviewed. [...] CBC: Lab Results Component Value Date WBC 9.09 04/25/2024 WBC 13.8 (H) 02/14/2013 RBC 4.96 04/25/2024 RBC 4.88 02/14/2013 HGB 15.2 04/25/2024 HGB 15.2 02/14/2013 HCT 43.7 04/25/2024 HCT 43.6 02/14/2013 MCV 88.1 04/25/2024 MCV 89.3 02/14/2013 MCH 30.6 04/25/2024 MCH 31.1 02/14/2013 MCHC 34.8 04/25/2024 MCHC 34.9 02/14/2013 PLATELET 317 04/25/2024 PLATELET 330 02/14/2013 RDWCV 12.0 04/25/2024 RDWCV 12.5 02/14/2013 CMP: Lab Results Component Value Date NA 138 04/25/2024 NA 136 02/14/2013 K 4.2 04/25/2024 K 3.2 (L) 02/14/2013 CL 101 04/25/2024 CL 99 02/14/2013 CO2 24 04/25/2024 CO2 22 02/14/2013 BUN 14 04/25/2024 BUN 14 02/14/2013 CREATININE 0.59 (L) 04/25/2024 CREATININE 0.94 02/14/2013 GLUCOSE 385 (H) 04/25/2024 GLUCOSE 148 02/14/2013 CALCIUM 9.9 04/25/2024 ESTGFR >60 02/14/2013 Lab Results Component Value Date ALT 29 04/25/2024 AST 20 04/25/2024 ALKPHOS 141 (H) 04/25/2024 BILITOT <0.2 04/25/2024 ALBUMIN 4.4 04/25/2024 PROT 7.0 04/25/2024 Pathology: Biopsy - Pathology : Status: Final result Visible to patient: Yes (not seen) Next appt: 04/25/2024 at 10:35 AM in Lab ([facility]) Dx: Abnormal finding on breast imaging 0 Result Notes Component Ref Range & Units Case Report Surgical Pathology Report Case: [id number] Authorizing Provider: Dorota Anderson MD Collected: 04/02/2024 0912 Ordering Location: Mammography at [facility] [place] Received: 04/02/2024 1254 Pathologist: Keyla Rodas DO Specimen: Breast, Left, LEFT BREAST US BX Final Diagnosis A. Left breast, core needle biopsy: - Invasive lobular carcinoma, intermediate grade (modified SBR score = 7), measuring at least 14 mm. - Lymphovascular invasion not identified. at 1151 Additional Studies Estrogen Receptor (ER) immunoreactivity: Positive Cancer cells with immunostaining: >90% Stain intensity: Strong Progesterone Receptor (AR) immunoreactivity: Positive Cancer cells with immunostainin% Stain [...] The assays were performed according to the teletype technician's instructions using Anti-ER (SP1) and Anti-AR (16) antibodies. These tests were developed and their performance characteristics determined by [facility]. They may not have been cleared or [...] 0.2 cm-1.5 x 0.2 cm Tissue Description: [place]-white fibrofatty needle core biopsies. Sections/Processing: Entirely submitted in 1 cassette labeled A1. Ischemic time: 1 minute ajw Result Note THIS RESULT REQUIRES PHYSICIAN/KINGS FOLLOW UP Abnormal Resulting Agency [facility] Specimen Collected: 04/02/24 09:12 Last Resulted: 04/04/24 11:51 Surgical Pathology s/p definitive breast surgery: Pending Breast Imaging: Screening mammogram: Diagnostic mammogram and U/S: Status: Final result Visible to patient: Yes (not seen) Next appt: 04/25/2024 at 10:35 AM in Lab ([facility]) Dx: Mass of left breast, unspecified quad... 0 Result Notes Details Reading Physician Reading Date Result Priority Dorota Anderson MD [phone] 2505 03/10/2024 Narrative & Impression INTERPRETATION OF OUTSIDE BREAST IMAGING I have been asked to consult on this patient by Dr. Nicolas because he/she believes a review of this study may change or alter the care of this patient. STUDIES FROM: [[facility] CLINICAL HISTORY: ? bx; Sending Institution [facility]; Date of exam [id number]; I believe a [...] cancers. Please note: The interpretation of the [facility] Breast Imaging Radiologist subspecialist may differ from the original radiologists interpretation. This is usually not due to a deficiency of the original interpreting radiologist, rather due to the greater skill level afforded by sub-specialization in the field and/or reasonable variations in interpretations. If you have a concern regarding the - interpretation you may contact the [facility] Breast [place] [employer] Office at . Thank you for letting us participate in the care of this patient. If you are a health care provider and have any questions regarding this report, please contact the number below. For patients who have questions please contact the health day care home provider that requested your imaging first. Electronically signed by: Dorota Anderson MD, [facility] ([phone]), at 03/10/2024 2:42 PM Component 1 mo ago WORKSTATION ID [id number] Resulting Agency [facility] Exam Ended: 03/10/24 07:30 Last Resulted: 03/10/24 [...] Reading Date Result Priority Olive Garcia MD [phone] 2533 04/08/2024 Armond Amezcua MD 04/08/2024 Narrative & Impression EXAMINATION: MRI BREAST WWO CONTRAST BILAT CLINICAL INDICATION: new breast cancer. History of left breast ILC ER/AR positive TECHNIQUE: Multiplanar sequences were obtained pre- [...] who have questions please contact the health day care home provider that requested your imaging first. Component 2 wk ago WORKSTATION ID [id number] Resulting Agency [facility] Exam Ended: 04/08/24 10:00 Last Resulted: 04/08/24 16:02 Status: Final result Visible to patient: Yes (not seen) Next appt: 04/25/2024 at 10:35 AM in Lab ([facility]) Dx: Malignant neoplasm of lower-outer cole... 0 Result Notes Details Reading Physician Reading Date Result Priority Olive Garcia MD [phone] 2533 04/10/2024 Armond Amezcua MD 04/10/2024 Narrative & Impression EXAMINATION: MRI ADDITIONAL VIEW - BREAST CLINICAL INDICATION: new breast cancer - repeat imaging. Left breast ILC, ER-positive AR positive and HER-2 negative TECHNIQUE: Multiplanar sequences were obtained pre- and post- Dotarem enhancement, to include SPGR weighted dynamic run-off and subtraction sequences obtained after the intravenous administration of 16 ccs of Dotarem. Computer algorithm analysis for lesion detection and kinetic contrast enhancement curve analysis was performed, using [employer] software. COMPARISON STUDIES: Compared and/or correlated with [...] who have questions please contact the health day care home provider that requested your imaging first. Component 13 d ago WORKSTATION ID [id number] Resulting Agency [facility] Exam Ended: 04/09/24 14:20 Last Resulted: 04/10/24 12:28 Annual mammogram: Per surgery; not yet due. Schedule pending surgical date. Imaging: CT C/A/P with contrast: Status: Final result Visible to patient: Yes (seen) Next appt: 05/08/2024 at 07:35 AM in Radiology (Mammo Room) Dx: Malignant neoplasm of left breast in ... 0 Result Notes Details Reading Physician Reading Date Result Priority Anamaria Velazquez MD [phone] 2954 04/28/2024 Narrative & Impression EXAMINATION: CT [...] who have questions please contact the health day care home provider that requested your imaging first. Electronically signed by: ANAMARIA VELAZQUEZ MD, [facility] ([phone]), at 04/28/2024 10:09 AM Component 12 d ago WORKSTATION ID [id number] Resulting Agency [facility] Exam Ended: 04/25/24 13:50 Last Resulted: 04/28/24 10:09 Bone scan: Status: Final result Visible to patient: Yes (seen) Next appt: 05/08/2024 at 07:35 AM in Radiology (Mammo Room) Dx: Malignant neoplasm of left breast in ... 0 Result Notes Details Reading Physician Reading Date Result Priority Jay Loyola MD [phone] 200604/29/2024 Kalie Jorgensen MD [phone] 36504/29/2024 Narrative & Impression EXAMINATION: NM BONE [...] who have questions please contact the health day care home provider that requested your imaging first. Electronically signed by: Jay Loyola MD, [facility] ([phone]), at 04/29/2024 11:33 AM Component 8 d ago WORKSTATION ID [id number] Resulting Agency [facility] Exam Ended: 04/29/24 10:53 Last Resulted: 10/08/24 11:[address]: N/A DEXA scan: Pending Cardiac oncology: EKG: N/A TTE: Pending Counseling: Total time spent: 60 minutes with > 50% spend in discussion of above, [id number] time and coordination of care with the [...] opportunities to askquestions, which we answered. Martha S Jennifer has endorsed agreement and understanding of [...] and concerns. Rylie Patel MD Medical Oncology [facility] Ribbon WinderInput Output Clerk, [facility] [employer] Office Cancer.[facility] documented in this encounter Plan of Treatment Upcoming Encounters Date Type Department Care Team (Late st Contact Info) Description 07/02/2024 8:00 AM EST Appointment Hematology [place] [address] 07/02/2024 9:00 AM EST Office Visit Hematology [place] [phone] Rosalba Patel MD [facility] [place] [address] 07/02/2024 10:30 AM EST Appointment Hematology and Oncology at [place] [phone] 07/07/2024 10:30 AM EST TH Visit (TeleHealth) Hematology and Oncology at [place] [phone] Hem/Onc, Clinic Pharmacist None 07/17/2024 9:00 AM EST Appointment Hematology [place] [phone] 07/17/2024 10:00 AM EST Office Visit Hematology and Oncology at [place] [phone] Rosalba Patel MD [facility] [place] [address] 07/17/2024 11:30 AM EST Appointment Hematology [place] [address] 07/30/2024 7:30 AM EST Appointment Hematology [place] [address] 07/30/2024 8:30 AM EST Office Visit Hematology [place] [address] Dallin Falcon APRN [facility] [place] [address] 07/30/2024 10:00 AM EST Appointment Hematology [place] [address] 08/13/2024 8:00 AM EST Appointment Hematology [place] [address] 08/13/2024 9:00 AM EST Office Visit Hematology [place] [address] Rosalba Patel MD [facility] [place] [address] 08/13/2024 10:30 AM EST Appointment Hematology [place] [address] Scheduled Referrals Name Type Priority Associated Diagnoses Orde r Schedule Referral to Familial Cancer Program (Genetics) Outpatient Referral Routine Malignant neoplasm of lower-outer quadrant of left breast of female, estrogen receptor positive Ordered: 04/30/2024 documented as of this encounter Results * IR Mediport Placement (05/05/2024 3:09 PM EDT) Anatomical Region Laterality Modality X-Ray Angiograph y Narrative 05/06/2024 2:30 PM EDT Interventional Radiology Procedure Note Procedure: Subcutaneous venous port implant Indication: Breast cancer, durable nursing home central venous access for chemotherapy Procedure summary: [...] the presence of an attending radiologist. Resident (amusement equipment operator): Jossy Velasco MD Attending: Patricio Christy MD Not present for the procedure. 05/05/2024 Dallin Falcon INTERIOR DESIGN PROGRAM CHAIR IMG IR ORDERABLES * ECHO COMPLETE (05/05/2024 12:09 PM EDT) EF 59 HEARTLAB SYSTEM Anatomical Region Laterality Modality Cardiac Other 05/05/2024 11:2 2 AM EDT Narrative 05/05/2024 1:06 PM EDT [address] [place] [address] ? Echocardiogram Report Name: MARTHA ESTRADA ?Study Date: 05/05/2024 11:22 AMBP: 127/82 mmHg : 1965 ? Height: 164 cm ? Account: [id number] Age: 59 yrs ? Weight: 82 kg Gender: Female ?BSA: 1.9 m2 Ordering Physician: DALLIN FALCON Referring Physician: DALLIN FALCON Performed By: NATALIIA Haque Reason For Study: Malignant neoplasm of lower-outer quadrant of left breast of female Exam Location: [facility]. Interpretation Summary 1. Mildly increased left ventricual [...] regurgitation. No prior study for comparison. Procedure Complete-[id number]. Satisfactory quality. There is normal sinus rhythm. [...] Note Chantel Villavicencio MD - 05/05/[address] [place] [address] Echocardiogram Report Name: MARTHA ESTRADA Study Date: :22 AMBP: 127/82 mmHg : 1965 Height: 164 cm Account: [id number] Age: 59 yrs Weight: 82 kg Gender: Female BSA: 1.9 m2 Ordering Physician: DALLIN FALCON Referring Physician: DALLIN FALCON Performed By: NATALIIA Haque Reason For Study: Malignant neoplasm of lower-outer quadrant of leftbreast of female Exam Location: [facility]. Interpretation Summary 1. Mildly increased left ventricual wall thickness normal chamber sizeand systolic function. The left ventricular ejection fraction is 59% by 3D.Maximal longitudinal strain was seen in 3 chamber view -16.4%. Suboptimal speckletracking in other views. 2. Normal right ventriclar size and systolic function. The peak rightventricular systolic pressure is 22.7 mmHg. 3. Mild tricuspid regurgitation. No prior study for comparison. Procedure Complete-62048. Satisfactory quality. There is normal sinus rhythm. [...] 5 - 6-14large Aneurysmal 15-16diffuse Dallin Falcon INTERIOR DESIGN PROGRAM CHAIR ECHO ORDERABLES documented in this encounter Visit Diagnoses Diagnosis Malignant neoplasm of lower-outer quadrant of left breast of female, estrogen receptor positive Malignant neoplasm of lower-outer quadrant of left breast of female, estrogen receptor positive Malignant neoplasm of lower-outer quadrant of left breast of female, estrogen receptor positive documented in this encounter Care Teams Director Of Public Health Relationship Specialty Start Date End Date Nat Nicolas APRN [address] [place] [address] PCP - General Family Medicine 04/02/24 documented as of this encounter
--- OUTSIDE RECORDS SUMMARY | 2024-06-21 16:13 | XMS_ITS | Encounter Summary ---
[place] [address] Care Team Providers Care Business Systems Consultant Name Role Phone NicolasZacNatcarlos Malloy APRN Primary Care Provider Encounter Details Date Type Department Care Team (Late st Contact Info) Description 04/30/2024 Notes [place] [address] Harriett Ramirez PA [facility] [place] [address] Social History Tobacco Use Types Packs/Day Years [...] on file documented as of this encounter H&P Notes * Harriett Ramirez PA - 04/30/2024 2:18 PM EDT Images [...] patient's medical record. IR History: None at [facility] Anticoagulation/Antiplatelet: None listed Labs: Lab Results Component [...] Us Biopsy Left 04/02/2024 Dorota Anderson MD [facility] RAD MAMMOGRAPHY Social History and Habits: Social [...] AM EST Appointment Hematology [place] [address] 07/02/2024 9:00 AM EST Office Visit Hematology [place] [address] Rosalba Patel MD [facility] [place] [address] 07/02/2024 10:30 AM EST Appointment Hematology [place] [address] 07/07/2024 10:30 AM EST TH Visit (TeleHealth) Hematology [place] [address] Hem/Onc, Clinic Pharmacist None 07/17/2024 9:00 AM EST Appointment Hematology [place] [address] 07/17/2024 10:00 AM EST Office Visit Hematology [place] [address] Rosalba Patel MD [facility] [place] [address] 07/17/2024 11:30 AM EST Appointment Hematology [place] [address] 07/30/2024 7:30 AM EST Appointment Hematology [place] [address] 07/30/2024 8:30 AM EST Office Visit Hematology and Oncology at [place] [phone] Yamileth Nur APRN [facility] [place] [address] 07/30/2024 10:00 AM EST Appointment Hematology [place] [address] 08/13/2024 8:00 AM EST Appointment Hematology [place] [address] 08/13/2024 9:00 AM EST Office Visit Hematology [place] [address] Rosalba Patel MD [facility] [place] [address] 08/13/2024 10:30 AM EST Appointment Hematology and Oncology at [place] [phone] documented as of this encounter Visit Diagnoses Not on filedocumented in this encounter Care Teams Business Systems Consultant Relationship Specialty Start Date End Date Nat Nicolas APRN [address] [place] [address] PCP - General Family Medicine 04/02/24 documented as of this encounter
--- OUTSIDE RECORDS SUMMARY | 2024-06-21 16:13 | XMS_ITS | Encounter Summary ---
[place] [address] Care Team Providers Care It Risk And Assurance Senior Manager Name Role Phone Nat Nicolas APRN Primary Care Provider Encounter Details Date Type Department Care Team (Latest Contact Info) Description 04/25/2024 10:35 AM EDT Laboratory Appointment Lab [address] [place] [phone] Malignant neoplasm of left breast in female, estrogen receptor positive, unspecified site of breast Social History Tobacco Use Types Packs/Day Years [...] AM EST Appointment Hematology [place] [phone] 07/02/2024 9:00 AM EST Office Visit Hematology [place] [phone] Rosalba Patel MD [facility] [place] [address] 07/02/2024 10:30 AM EST Appointment Hematology and Oncology at [place] [phone] 07/07/2024 10:30 AM EST TH Visit (TeleHealth) Hematology and Oncology at [place] [phone] Hem/Onc, Clinic Pharmacist None 07/17/2024 9:00 AM EST Appointment Hematology [place] [phone] 07/17/2024 10:00 AM EST Office Visit Hematology and Oncology at [place] [phone] Rosalba Patel MD [facility] [place] [address] 07/17/2024 11:30 AM EST Appointment Hematology [place] [address] 07/30/2024 7:30 AM EST Appointment Hematology [place] [phone] 07/30/2024 8:30 AM EST Office Visit Hematology [place] [phone] Yamileth Nur APRN [facility] [place] [address] 07/30/2024 10:00 AM EST Appointment Hematology [place] [address] 08/13/2024 8:00 AM EST Appointment Hematology [place] [address] 08/13/2024 9:00 AM EST Office Visit Hematology [place] [phone] Rosalba Patel MD [facility] [place] [address] 08/13/2024 10:30 AM EST Appointment Hematology [place] [phone] documented as of this encounter Procedures Procedure Name Priority Date/Time Associated Diagnosis Comments CBC (WITH DIFF) Routine 04/25/2024 11:14 AM EDT Malignant neoplasm of left breast in female, estrogen receptor positive, unspecified site of breast COMPREHENSIVE METABOLIC PANEL Routine 04/25/2024 11:14 AM EDT Malignant neoplasm of left breast in female, estrogen receptor positive, unspecified site of breast documented in this encounter Results * (ABNORMAL) Comprehensive metabolic panel Non-fasting (04/25/2024 11:14 AM EDT) Glucose 385(H) 65 - 199 mg/dL 04/25/2024 11:57 AM T [facility] Comment:Glucose Concentratio n >=200 mg/dL plus symptoms is consistent with Diabetes Mellitus. Blood Urea Nitrogen 14 8 - 18 mg/dL 04/25/2024 11:57 AM [facility] Creatinine 0.59(L) 0.70 - 1.20 mg/dL 04/25/2024 11:57 AM [facility] Sodium 138 135 - 145 mMol/L 04/25/2024 11:57 AM [facility] Potassium 4.2 3.5 - 5.0 mMol/L 04/25/2024 11:57 AM [facility] Chloride 101 98 - 107 mMol/L 04/25/2024 11:57 AM [facility] Carbon Dioxide 24 22 - 31 mMol/L 04/25/2024 11:57 AM [facility] Anion Gap 13 5 - 15 mMol/L 04/25/2024 11:57 AM [facility] Calcium 9.9 8.5 - 10.5 mg/dL 04/25/2024 11:57 AM [facility] Protein, Total 7.0 6.1 - 8.0 g/dL 04/25/2024 11:57 AM [facility] Albumin 4.4 3.2 - 5.2 g/dL 04/25/2024 11:57 AM [facility] Aspartate Aminotransferase 20 <=30 unit/L 04/25/2024 11:57 AM [facility] Alanine Aminotransferase 29 0 - 30 unit/L 04/25/2024 11:57 AM [facility] Alkaline Phosphatase 141(H) 35 - 105 unit/L 04/25/2024 11:57 AM [facility] Bilirubin, Total <0.2 <=1.3 mg/dL 04/25/2024 11:57 AM [facility] Est Glomerular Filtration Rate - Female 103 mL/min/1. 73 m?? 04/25/2024 11:57 AM [facility] Comment: This patient's estimated GFR [...] Calculator [employer] Fasting Status No 04/25/2024 11:57 AM EDT [facility] Blood VENOUS BLOOD SPECIMEN / Unknown Venipuncture / Unknown 04/25/2024 11:14 AM EDT 04/25/2024 11:14 AM EDT Daily Amaral MD CHEMISTRY ORDERAB LES Performing Organization Address City/State/[facility] Co de Phone Number [facility] [place] [address] * CBC (with Diff) (04/25/2024 11:14 AM EDT) White Blood Cell 9.09 4.00 - 9.50 x10(3)/mcL 04/25/2024 11:32 AM EDT [facility] Red Blood Cell 4.96 4.00 - 5.21 x10(6)/mcL 04/25/2024 11:32 AM EDT [facility] Hemoglobin 15.2 11.7 - 15.5 g/dL 04/25/2024 11:32 AM EDT [facility] Hematocrit 43.7 35.7 - 45.8 % 04/25/2024 11:32 AM EDT [facility] Mean Cell Volume 88.1 82.6 - 94.4 fL 04/25/2024 11:32 AM EDT [facility] Mean Cell Hemoglobin 30.6 27.1 - 32.0 pg 04/25/2024 11:32 AM EDT [facility] Mean Cell Hemoglobin Concentration 34.8 31.7 - 35.0 g/dL 04/25/2024 11:32 AM EDT [facility] Platelet 317 145 - 357 x10(3)/mcL 04/25/2024 11:32 AM EDT [facility] Mean Platelet Volume 11.5 7.6 - 12.9 fL 04/25/2024 [facility] RDW Standard Deviation 38.4 37.0 - 46.0 fL 04/25/2024 11:32 AM [facility] RDW coefficient of variation 12.0 11.5 - 14.1 % 04/25/2024 11:32 AM [facility] NRBC% auto 0.0 % 04/25/2024 11:32 AM [facility] NRBC Absolute <0.01 <0.01 x10(3)/mcL 04/25/2024 11:32 AM [facility] Neutrophil % 57.8 % 04/25/2024 11:32 AM [facility] Neutrophil Absolute (ANC) - Automated 5.24 1.70 - 6.10 x10(3)/mcL 04/25/2024 11:32 AM [facility] Lymph % 30.1 % 04/25/2024 11:32 AM [facility] Lymph Absolute 2.74 0.90 - 3.20 x10(3)/mcL 04/25/2024 11:32 AM [facility] Monocyte % 7.0 % 04/25/2024 11:32 AM [facility] Monocyte Absolute 0.64 0.30 - 0.90 x10(3)/mcL 04/25/2024 11:32 AM [facility] Eos % 4.3 % 04/25/2024 11:32 AM [facility] Eos Absolute 0.39 0.00 - 0.40 x10(3)/mcL 04/25/2024 11:32 AM [facility] Basophil % 0.4 % 04/25/2024 11:32 AM [facility] Baso Absolute 0.04 0.00 - 0.10 x10(3)/mcL 04/25/2024 11:32 AM [facility] Immature Gran % 0.4 % 11:32 AM [facility] Immature Gran Absolute 0.04 0.00 - 0.04 x10(3)/mcL 04/25/2024 11:32 AM EDT [facility] Blood VENOUS BLOOD SPECIMEN / Unknown Venipuncture / Unknown 04/25/2024 11:14 AM EDT 04/25/2024 11:14 AM EDT Daily Amaral MD HEMATOLOGY ORDERA BLES [facility] [place] [address] documented in this encounter Visit Diagnoses Diagnosis Malignant neoplasm of left breast in female, estrogen receptor positive, unspecified site of breast documented in this encounter Care Teams It Risk And Assurance Senior Manager Relationship Specialty Start Date End Date Nat Nicolas, GLUING MACHINE OPERATOR [address] [place] [address] PCP - General Family Medicine 04/02/24 documented as of this encounter
--- OUTSIDE RECORDS SUMMARY | 2024-06-21 16:13 | XMS_ITS | Encounter Summary ---
Author Organization [facility] [place] [address] Care Team Providers Care Digital Sales Representative Name Role Phone Nat Nicolas APRN Primary Care Provider Encounter Details Date Type Department Care Team (Late st Contact Info) Description 04/16/2024 Notes [place] [address] Nat Hess, CHRISTIANO Social History Tobacco Use Types Packs/Day Years [...] Progress Notes * Nat Hess MSW - 04/16/2024 3:42 PM EDTSummary: Social Work Note: Comprehensive Breast Program I'm able to forward Martha's [place] paperwork to Dr. Patel's clinical stenographer secretary for processing. Messagesent to Martha via her [facility] account with stenographer secretary contact information in case she has any questions. Completed today: Care Coordination Nat ???Fide?? LAUREL Hess Social Work, Breast and Gynecology Oncology [email or web address] documented in this encounter Plan of Treatment Upcoming Encounters Date Type Department Care Team (Late st Contact Info) Description 07/02/2024 8:00 AM EST Appointment Hematology and Oncology at [place] [phone] 07/02/2024 9:00 AM EST Office Visit Hematology and Oncology at [place] [phone] Rosalba Patel MD [facility] [place] [address] 07/02/2024 10:30 AM EST Appointment Hematology and Oncology at [place] [phone] 07/07/2024 10:30 AM EST TH Visit (TeleHealth) Hematology and Oncology at [place] [phone] Hem/Onc, Clinic Pharmacist None 07/17/2024 9:00 AM EST Appointment Hematology [place] [phone] 07/17/2024 10:00 AM EST Office Visit Hematology [place] [phone] Rosalba Patel MD [facility] [place] [address] 07/17/2024 11:30 AM EST Appointment Hematology [place] [address] 07/30/2024 7:30 AM EST Appointment Hematology [place] [address] 07/30/2024 8:30 AM EST Office Visit [place]ematology [place] [address] Yamileth Nur APRN [facility] [place] [address] 07/30/2024 10:00 AM EST Appointment Hematology [place] [address] 08/13/2024 8:00 AM EST Appointment Hematology [place] [address] 08/13/2024 9:00 AM EST Office Visit [place]ematology [place] [address] Rosalba Patel MD [facility] [place] [address] 08/13/2024 10:30 AM EST Appointment Hematology and Oncology at [place] [phone] documented as of this encounter Visit Diagnoses Not on filedocumented in this encounter Care Teams Digital Sales Representative Relationship Specialty Start Date End Date Nat Nicolas APRN [address] [place] [address] PCP - General Family Medicine 04/02/24 documented as of this encounter
--- OUTSIDE RECORDS SUMMARY | 2024-06-21 16:13 | XMS_ITS | Encounter Summary ---
Author Organization Formerly [facility] [place] [address] Care Team Providers Care Conference Planner Name Role Phone Nat Nicolas APRN Primary Care Provider Reason for Visit * Reason Comments Follow-up Encounter Details Date Type Department Care Team (Late st Contact Info) Description 05/08/2024 11:30 AM EDT Office Visit Hematology [place] [address] Rosalba Patel MD [facility] [place] [address] Malignant neoplasm of lower-outer quadrant of left [...] Sign Reading Time Taken Comments Blood Pressure 154/96 05/08/2024 10:31 AM EDT Pulse 63 05/08/2024 10:31 AM EDT Temperature 36.6 ??C (97.9 ??F) 05/08/2024 10:31 AM E DT Respiratory Rate 19 05/08/2024 10:31 AM EDT Oxygen Saturation 100% 05/08/2024 10:31 AM EDT Inhaled Oxygen Concentration - - Weight 81.2 kg (179 lb 0.2 oz) 05/08/2024 10:31 AM EDT Height 163.9 cm (5' 4.53) 05/08/2024 10:31 AM E DT Body Mass Index 30.23 05/08/2024 10:31 AM EDT documented in this encounter Progress Notes * Rosalba Patel MD - 05/08/2024 11:30 AM EDT Images from the original note were not included. [facility] Patient Name: Martha Rodriguez is a 59 y.o. female from [place], [place] (1 hour 10 min away). : 1965 Visit Date: 05/07/2024 PCP: Nat Nicolas APRN Breast surgical oncology: Lashay Amaral MD Radiation oncology: Referral pending Reason for visit: Scheduled f/up for C1D1 ddAC-T Summary: Martha Rodriguez is a 59 y.o. 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 She presents today for neoadjuvant ddAC-T. DIAGNOSIS: Breast cancer pathology & staging: Clinical stage: [id number] Stage IIA Pathological stage: pending surgery Pathology: Invasive lobular carcinoma, grade 2, LVI-. Surgical pathology pending. Joel status: 4 abnormal axillary nodes, level I and II, seen on MRI - axillary u/s and biopsy 05/08/2024 positive for metastatic carcinoma Receptor status: ER positive (>90%, strong) PA positive (>70% strong) HER2 negative by FISH, [...] grade 2, LVI- ER positive (>90%, strong) PA positive (>70% strong) HER2 negative by FISH, [...] invasive lobular carcinoma of the LEFT breast, ER+PA+Her2-, who presents today in scheduled follow-up for C1D1 ddAC-T. # Left breast cancer, ILC, ER positive, PA positive, HER2 negative - Risk scoring: UK [...] -Treatment: Neoadjuvant ddAC-T Monitoring Treatment related toxicities: N/A Monitoring compliance/adherence: N/A Bone health: DEXA scan will be needed when hormonal therapy begins Has history of vitamin D deficiency; recheck level Encourage appropriate supplementation and weightbearing exercise #Insulin-dependent diabetes High risk for CIPN - encourage use of frozen gloves/mitts PCP co-management encouraged Consider nutrition consult # Right breast mass seen on MRI - biopsy deferred due to benign appearance of 2 lesions seen on ultrasound 05/08/2024 - f/up with repeat ultrasound in 6 months (did not order today) Recommendations/Plan: Given her performance status, with adequate labs, proceed with C1D1 neoadjuvant ddACT Follow-up: RTC in 2 weeks for labs, MD/CUSTOMER ACQUISITION MANAGER visit and C2D1 neoadj ddAC-T Interval History: 05/08/2024 Here for C1D1 ddAC-T Had LN [...] Family history of prostate cancer * Ashkenazi Mandaeism heritage * Personal history of known genetic mutation Sister is BRCA2? positive, Martha is negative by report Review of Symptoms: As per HPI, all other systems were reviewed and are negative. Review of Systems - Oncology Allergies: Allergies as of 05/08/2024 - Review Complete 05/05/2024 Allergen Reaction Noted Sulfa (sulfonamide antibiotics) Rash 02/07/2022 Medical History: Past Medical History: Diagnosis Date HTN (hypertension) 02/14/2013 Migraine headache 02/14/2013 Current Medications: Current Outpatient Medications Medication Sig lidocaine-prilocaine (EMLA) Cream Apply topically 60 minutes prior to accessing port. Apply a thicklayer of cream to designated site of intact skin. Cover site with occlusive dressing. hydroCHLOROthiazide 12.5 mg tablet Take 12.5 mg by mouth. lisinopriL (Zestril) 20 mg Tablet Take 0.5 tablets by mouth daily. (Patient not taking: Reported on04/09/2024) metFORMIN (FORTAMET) 500 mg Tablet Extended Rel [...] Dizziness. (Patient not taking: Reported on 04/09/2024) lisinopril (PRINIVIL;ZESTRIL) 20 mg tablet Take 20 mg by mouth daily. atenolol (TENORMIN) 25 mg tablet Take 25 mg by mouth daily. Surgical History: Past Surgical History: Procedure Laterality Date IR MEDIPORT PLACEMENT 05/05/2024 IR Mediport Placement 05/05/2024 Debra Tamayo PA [facility] INTERVENTIONL RAD MAMMO US BIOPSY LEFT Left 04/02/2024 Mammo Us Biopsy Left 04/02/2024 Dorota Anderson MD [facility] RAD MAMMOGRAPHY Family History: Family History Problem [...] Readings from Last 3 Encounters: 05/05/24 143/78 10/09/24 (!) 180/107 04/16/24 (!) 143/106 Pulse Readings [...] Units Case Report Surgical Pathology Report Case: [id number] Authorizing Provider: Dorota Anderson MD Collected: 04/02/2024 0912 Ordering Location: Mammography at [facility] Received: 04/02/2024 1254 Pathologist: [...] immunostaining: >90% Stain intensity: Strong Progesterone Receptor (PA) immunoreactivity: Positive Cancer cells with immunostainin% Stain [...] The assays were performed according to the home supervisor's instructions using Anti-ER (SP1) and Anti-PA (16) antibodies. These tests were developed and their performance characteristics determined by [facility]. They may not have been cleared or [...] 0.2 cm-1.5 x 0.2 cm Tissue Description: Dequincy-white fibrofatty needle core biopsies. Sections/Processing: Entirely submitted in 1 cassette labeled A1. Ischemic time: 1 minute ajw Result Note THIS RESULT REQUIRES PHYSICIAN/KINGS FOLLOW UP Abnormal Resulting Agency [facility] Spec[facility] Collected: 04/02/24 09:12 Last Resulted: 04/04/24 11:51 Surgical Pathology s/p definitive breast surgery: Pending Breast Imaging: Screening mammogram: Diagnostic mammogram and U/S: Status: Final result Visible to patient: Yes (not seen) Next appt: 04/25/2024 at 10:35 AM in Lab ([facility]) Dx: Mass of left breast, unspecified quad... 0 Result Notes Details Reading Physician Reading Date Result Priority Dorota Anderson MD [phone] 2501 03/10/2024 Narrative & Impression INTERPRETATION OF OUTSIDE BREAST IMAGING I have been asked to consult on this patient by Dr. Nicolas because he/she believes a review of this study may change or alter the care of this patient. STUDIES FROM: [facility] CLINICAL HISTORY: ? bx; Sending Institution [facility]; Date of exam [id number]; I believe [...] cancers. Please note: The interpretation of the [facility] Breast Imaging Radiologist subspecialist may differ from the original radiologists interpretation. This is usually not due to a deficiency of the original interpreting radiologist, rather due to the greater skill level afforded by sub-specialization in the field and/or reasonable variations in interpretations. If you have a concern regarding the [facility] interpretation you may contact the [facility] at . Thank you for letting us participate in the care of this patient. If you are a health care provider and have any questions regarding this report, please contact the number below. For patients who have questions please contact the health care management coordinator that requested your imaging first. Electronically signed by: Dorota Anderson MD, [facility] ([phone]), at 03/10/2024 2:42 PM Component 1 mo ago WORKSTATION ID [id number] Resulting Agency [facility] Exam Ended: 03/10/24 07:30 Last Resulted: 03/10/24 [...] Reading Date Result Priority Olive Garcia MD [phone] 2533 04/08/2024 Armond Amezcua MD 04/08/2024 Narrative & Impression EXAMINATION: MRI BREAST WWO CONTRAST BILAT CLINICAL INDICATION: new breast cancer. History of left breast ILC ER/PA positive TECHNIQUE: Multiplanar sequences were obtained pre- [...] who have questions please contact the health care management coordinator that requested your imaging first. Component 2 wk ago WORKSTATION ID [id number] Resulting Agency [facility] Exam Ended: 04/08/24 10:00 Last Resulted: 04/08/24 16:02 Status: Final result Visible to patient: Yes (not seen) Next appt: 04/25/2024 at 10:35 AM in Lab ([facility]) Dx: Malignant neoplasm of lower-outer cole... 0 Result Notes Details Reading Physician Reading Date Result Priority Olive Garcia MD [phone] 2533 04/10/2024 Armond Amezcua MD 04/10/2024 Narrative & Impression EXAMINATION: MRI ADDITIONAL VIEW - BREAST CLINICAL INDICATION: new breast cancer - repeat imaging. Left breast ILC, ER-positive PA positive and HER-2 negative TECHNIQUE: Multiplanar sequences were obtained pre- and post- Dotarem enhancement, to include SPGR weighted dynamic run-off and subtraction sequences obtained after the intravenous administration of 16 ccs of Dotarem. Computer algorithm analysis for lesion detection and kinetic contrast enhancement curve analysis was performed, using [employer] software. COMPARISON STUDIES: Compared and/or correlated with [...] who have questions please contact the health care management coordinator that requested your imaging first. Component 13 d ago WORKSTATION ID [id number] Resulting Agency [facility] Exam Ended: 04/09/24 14:20 Last Resulted: 04/10/24 12:28 Annual mammogram: Per surgery; not yet due. Schedule pending surgical date. Imaging: CT C/A/P with contrast: Status: Final result Visible to patient: Yes (seen) Next appt: 05/08/2024 at 07:35 AM in Radiology (Mammo Room) Dx: Malignant neoplasm of left breast in ... 0 Result Notes Details Reading Physician Reading Date Result Priority Anamaria Lopez MD [phone] 2954 04/28/2024 Narrative & Impression EXAMINATION: CT [...] who have questions please contact the health care management coordinator that requested your imaging first. Electronically signed by: ANAMARIA LOPEZ MD, [facility] ([phone]), at 04/28/2024 10:09 AM Component 12 d ago WORKSTATION ID [id number] Resulting Agency [facility] Exam Ended: 04/25/24 13:50 Last Resulted: 04/28/24 10:09 Bone scan: Status: Final result Visible to patient: Yes (seen) Next appt: 05/08/2024 at 07:35 AM in Radiology (Mammo Room) Dx: Malignant neoplasm of left breast in ... 0 Result Notes Details Reading Physician Reading Date Result Priority Jay Loyola MD [phone] 200604/29/2024 Kalie Jorgensen MD [phone] 36504/29/2024 Narrative & Impression EXAMINATION: NM BONE [...] who have questions please contact the health care management coordinator that requested your imaging first. Electronically signed by: Jay Loyola MD, [facility] ([phone]), at 04/29/2024 11:33 AM Component 8 d ago WORKSTATION ID [id number] Resulting Agency [facility] Exam Ended: 04/29/24 10:53 Last Resulted: 04/29/24 [...] study for comparison. Counseling: Total time spent: 60 minutes with > 50% spend in discussion of above, [id number] time and coordination of care with the [...] and concerns. Rylie Patel MD Medical Oncology [facility] Animal TaxonomistInventory Assistant, [facility] [employer] Office Cancer.[facility] documented in this encounter Plan of Treatment Upcoming Encounters Date Type Department Care Team (Late st Contact Info) Description 07/02/2024 8:00 AM EST Appointment Hematology and Oncology at [place] [phone] 07/02/2024 9:00 AM EST Office Visit Hematology [place] [address] Rosalba Patel MD [facility] [place] [address] 07/02/2024 10:30 AM EST Appointment Hematology [place] [address] 07/07/2024 10:30 AM EST TH Visit (TeleHealth) Hematology and Oncology at [place] [phone] Hem/Onc, Clinic Pharmacist None 07/17/2024 9:00 AM EST Appointment Hematology [place] [address] 07/17/2024 10:00 AM EST Office Visit Hematology [place] [address] Rosalba Patel MD [facility] [place] [address] 07/17/2024 11:30 AM EST Appointment Hematology [place] [address] 07/30/2024 7:30 AM EST Appointment Hematology [place] [address] 07/30/2024 8:30 AM EST Office Visit Hematology [place] [address] Yamileth Nur APRN [facility] [place] [address] 07/30/2024 10:00 AM EST Appointment Hematology [place] [address] 08/13/2024 8:00 AM EST Appointment Hematology [place] [address] 08/13/2024 9:00 AM EST Office Visit Hematology [place] [address] Rosalba aPtel MD [facility] [place] [address] 08/13/2024 10:30 AM EST Appointment Hematology [place] [address] documented as of this encounter Visit Diagnoses Diagnosis Malignant neoplasm of lower-outer quadrant of left breast of female, estrogen receptor positive documented in this encounter Care Teams Conference Planner Relationship Specialty Start Date End Date Nat Nicolas APRN [address] [place] [address] PCP - General Family Medicine 04/02/24 documented as of this encounter
--- OUTSIDE RECORDS SUMMARY | 2024-06-21 16:13 | XMS_ITS | Encounter Summary ---
[place] [address] Care Team Providers Care Filter Screen Cleaner Name Role Phone Nat Nicolas APRN Primary Care Provider Reason for Referral * Diagnostic Test (Routine) - Closed Specialty Diagnoses / Procedures Referred By Laurel t Referred To Contact Radiology Diagnoses Malignant neoplasm of left breast in female, estrogen receptor positive, unspecified site of breast Procedures CT Chest Abdomen Pelvis w Contrast (Generic) Daily Amaral MD [facility] [place] [address] [facility] [place] [address] Referral ID Status Reason Start Date Expiration Date V isits Requested Visits Authorized [id number] Closed Specialty Service Requested 04/10/2024 10/08/2025 1 1 Reason for Visit * Diagnostic Test (Routine) - Closed Specialty Diagnoses / Procedures Referred By Laurel garrett Referred To Contact Radiology Diagnoses Malignant neoplasm of left breast in female, estrogen receptor positive, unspecified site of breast Procedures CT Chest Abdomen Pelvis w Contrast (Generic) Daily Amaral MD [facility] [place] [address] [facility] [place] [address] Referral ID Status Reason Start Date Expiration Date V isits Requested Visits Authorized [id number] Closed Specialty Service Requested 04/10/2024 10/08/2025 1 1 Encounter Details Date Type Department Care Team (Latest Contact Info) Description 04/25/2024 11:26 AM EDT - 04/25/2024 11:59 PM EDT Hospital [place] [address] Daily Amaral MD [facility] [place] [address] Malignant neoplasm of left breast in female, [...] AM EST Appointment Hematology [place] [address] 07/02/2024 9:00 AM EST Office Visit Hematology [place] [address] Rosalba Patel MD [facility] [place] [address] 07/02/2024 10:30 AM EST Appointment Hematology [place] [address] 07/07/2024 10:30 AM EST TH Visit (TeleHealth) Hematology [place] [address] Hem/Onc, Clinic Pharmacist None 07/17/2024 9:00 AM EST Appointment Hematology [place] [address] 07/17/2024 10:00 AM EST Office Visit Hematology [place] [address] Rosalba Patel MD [facility] [place] [address] 07/17/2024 11:30 AM EST Appointment Hematology [place] [address] 07/30/2024 7:30 AM EST Appointment Hematology [place] [address] 07/30/2024 8:30 AM EST Office Visit Hematology [place] [address] Yamileth Nur APRN [facility] [place] [address] 07/30/2024 10:00 AM EST Appointment Hematology [place] [address] 08/13/2024 8:00 AM EST Appointment Hematology [place] [address] 08/13/2024 9:00 AM EST Office Visit Hematology [place] [address] Rosalba Patel MD [facility] [place] [address] 08/13/2024 10:30 AM EST Appointment Hematology [place] [address] documented as of this encounter Procedures Procedure Name Priority Date/Time Associated Diagnosis Comments CT CHEST ABDOMEN PELVIS W CONTRAST (GENERIC) Routine 04/25/2024 1:50 PM EDT Malignant neoplasm of left breast in female, estrogen receptor positive, unspecified site of breast documented in this encounter Results * CT Chest Abdomen Pelvis w Contrast (Generic) (04/25/2024 1:50 PM EDT) WORKSTATION ID [id number] RAD Anatomical Region Laterality Modality Abdomen, Pelvis [...] have questions please contact the health care taker that requested your imaging first. ? Electronically signed by: ANAMARIA LOPEZ MD, [facility] ([phone]), at 04/28/2024 10:09 AM Narrative 04/28/2024 10:09 [...] structures: No suspicious lesions. Procedure Note Anamaria Lopez MD - 04/28/2024 EXAMINATION: CT CHEST ABDOMEN [...] patients who have questions please contactthe health care taker that requested your imaging first. Electronically signed by: ANAMARIA LOPEZ MD, [facility]([phone]), at 04/28/2024 10:09 AM Daily Amaral MD IMG CT ORDERABLES documented in this encounter Visit Diagnoses Diagnosis Malignant neoplasm of left breast in female, estrogen receptor positive, unspecified site of breast documented in this encounter Administered Medications Inactive Administered Medications - up to 3 most recent administrations Medication Order MAR Action Action Date Dose Rate Site iohexoL (Omnipaque) (350 mg/mL) solution 0-200 mL 0-200 mL, Intravenous, ONCE PRN, 1 dose, Starting on Sun04/25/24 at 1331, Until Sun04/25/24 at 1331, Per Protocol, Warning Vesicant/Irritant Medication , Radiology Contrast, Routine Given 04/25/2024 1:31 PM EDT 106 mLs iohexoL (Omnipaque) (350 mg/mL) solution 0-50 mL 0-50 mL, Oral, ONCE, 1 dose, On Sun04/25/24 at 1430, Warning Vesicant/Irritant Medication , Radiology Contrast, Routine Given 04/25/2024 2:30 PM EDT 50 mLs documented in this encounter Care Teams Filter Screen Cleaner Relationship Specialty Start Date End Date Nat Nicolas, PUMPING STATION SUPERVISOR [address] [place] [address] PCP - General Family Medicine 04/02/24 documented as of this encounter
--- OUTSIDE RECORDS SUMMARY | 2024-06-21 16:13 | XMS_ITS | Encounter Summary ---
[place] [address] Care Team Providers Care Zone Supervisor Firearms Name Role Phone Nat Nicolas APRN Primary Care Provider Encounter Details Date Type Department Care Team (Late st Contact Info) Description 04/14/2024 Telephone [place] [phone] Royce Newton MD [facility] [place] [address] Social History Tobacco Use Types Packs/Day Years [...] encounter Miscellaneous Notes * Telephone Encounter - Royce Newton MD - 04/14/2024 5:32 PM EDT Patient phone call returned at 5:32 PM ID: Martha Rodriguez is a 59 y.o. female who underwent recent MRI with biopsy for malignant neoplasm of her left breast with Dr. mAaral. Martha calls today in regards to her recent biopsy results. She is asking if there is nipple involvement. Per Dr. Amaral's most recent note on 04/10/2024, I informed the patient that there is some nipple involvement. She then asked about her next follow up appointments. I informed her that she had a follow up with Heme/onc on 04/16/24, and that she is scheduled for a CT scan on 04/25. She may call the clinic tomorrow to inquire about follow up in the surgery clinic. The patient then informed me she had some new soreness to her nipple. She denies any new symptoms of fevers, chills, masses, skin changes, adenopathy or discharge. I informed her to continue monitoring for these symptoms, and to call back immediately if she develops these in the event she may need to visit the ED. She expressed understanding of these return precautions. Royce Newton MD Resident, General Surgery Pager [phone] 04/14/24 5:32 PM documented in this encounter Plan of Treatment Upcoming Encounters Date Type Department Care Team (Late st Contact Info) Description 07/02/2024 8:00 AM EST Appointment Hematology [place] [address] 07/02/2024 9:00 AM EST Office Visit Hematology [place] [address] Rosalba Patel MD [facility] [place] [address] 07/02/2024 10:30 AM EST Appointment Hematology [place] [address] 07/07/2024 10:30 AM EST TH Visit (TeleHealth) Hematology and Oncology at [place] [phone] Hem/Onc, Clinic Pharmacist None 07/17/2024 9:00 AM EST Appointment Hematology [place] [address] 07/17/2024 10:00 AM EST Office Visit Hematology [place] [address] Rosalba Patel MD [facility] [place] [address] 07/17/2024 11:30 AM EST Appointment Hematology [place] [address] 07/30/2024 7:30 AM EST Appointment Hematology [place] [address] 07/30/2024 8:30 AM EST Office Visit Hematology [place] [address] Yamileth Nur APRN [facility] [place] [address] 07/30/2024 10:00 AM EST Appointment Hematology [place] [address] 08/13/2024 8:00 AM EST Appointment Hematology [place] [address] 08/13/2024 9:00 AM EST Office Visit Hematology [place] [address] Rosalba Patel MD [facility] [place] [address] 08/13/2024 10:30 AM EST Appointment Hematology [place] [address] documented as of this encounter Visit Diagnoses Not on filedocumented in this encounter Care Teams Zone Supervisor Firearms Relationship Specialty Start Date End Date Nat Nicolas APRN [address] [place] [address] PCP - General Family Medicine 04/02/24 documented as of this encounter
--- OUTSIDE RECORDS SUMMARY | 2024-06-21 16:13 | XMS_ITS | Encounter Summary ---
[place] [address] Care Team Providers Care Tool Room Attendant Name Role Phone Nat Nicolas APRN Primary Care Provider Reason for Referral * Diagnostic Test (Routine) - Closed Specialty Diagnoses / Procedures Referred By Contac t Referred To Contact Radiology Diagnoses Malignant neoplasm of left breast in female, estrogen receptor positive, unspecified site of breast Procedures NM Bone Scan Whole Body Daily Amaral MD [facility] [place] [address] [facility] [place] [address] Referral ID Status Reason Start Date Expiration Date V isits Requested Visits Authorized [id number] Closed Specialty Service Requested 04/10/2024 10/08/2025 1 1 Reason for Visit * Diagnostic Test (Routine) - Closed Specialty Diagnoses / Procedures Referred By Contac t Referred To Contact Radiology Diagnoses Malignant neoplasm of left breast in female, estrogen receptor positive, unspecified site of breast Procedures NM Bone Scan Whole Body Daily Amaral MD [facility] [place] [place] [address] [facility] [place] [address] Referral ID Status Reason Start Date Expiration Date V isits Requested Visits Authorized [id number] Closed Specialty Service Requested 04/10/2024 10/08/2025 1 1 Encounter Details Date Type Department Care Team (Latest Contact Info) Description 04/29/2024 7:20 AM EDT - 04/29/2024 10:01 AM EDT Hospital Encounter [place] [address] Daily Amaral MD [facility] [place] [address] Malignant neoplasm of left breast [...] AM EST Appointment Hematology [place] [address] 07/02/2024 9:00 AM EST Office Visit Hematology [place] [address] Rosalba Patel MD [facility] [place] [address] 07/02/2024 10:30 AM EST Appointment Hematology [place] [address] 07/07/2024 10:30 AM EST TH Visit (TeleHealth) Hematology [place] [address] Hem/Onc, Clinic Pharmacist None 07/17/2024 9:00 AM EST Appointment Hematology [place] [address] 07/17/2024 10:00 AM EST Office Visit Hematology [place] [address] Rosalba Patel MD [facility] [place] [address] 07/17/2024 11:30 AM EST Appointment Hematology [place] [address] 07/30/2024 7:30 AM EST Appointment Hematology [place] [address] 07/30/2024 8:30 AM EST Office Visit Hematology [place] [address] Yamileth Nur APRN [facility] [place] [address] 07/30/2024 10:00 AM EST Appointment Hematology [place] [address] 08/13/2024 8:00 AM EST Appointment Hematology [place] [address] 08/13/2024 9:00 AM EST Office Visit Hematology [place] [address] Rosalba Patel MD [facility] [place] [address] 08/13/2024 10:30 AM EST Appointment Hematology [place] [address] documented as of this encounter Procedures Procedure Name Priority Date/Time Associated Diagnosis Comments NM BONE SCAN WHOLE BODY Routine 04/29/2024 10:53 AM EDT Malignant neoplasm of left breast in female, estrogen receptor positive, unspecified site of breast documented in this encounter Results * NM Bone Scan Whole Body (04/29/2024 10:53 AM EDT) WORKSTATION ID [id number] [facility] Anatomical Region Laterality Modality Nuclear Medicine Impressions [...] who have questions please contact the health manager wound care that requested your imaging first. ? Electronically signed by: Jay Loyola MD, [facility] ([phone]), at 04/29/2024 11:33 AM Narrative 04/29/2024 11:33 AM EDT EXAMINATION: NM [...] patients who have questions please contactthe health manager wound care that requested your imaging first. Electronically signed by: Jay Loyola MD, [facility]([phone]), at 04/29/2024 11:33 AM Daily Amaral MD IM NM ORDERABLES documented in this encounter Visit Diagnoses Diagnosis Malignant neoplasm of left breast in female, estrogen receptor positive, unspecified site of breast documented in this encounter Administered Medications Inactive Administered Medications - up to 3 most recent administrations Medication Order MAR Action Action Date Dose Rate Site technetium (Tc-99m) methylene diphosphonate (MDP) injection 0-30 mCi 0-30 mCi, Intravenous, ONCE PRN, 1 dose, Starting on Sun04/29/24 at 0753, Until Sun04/29/24 at 0750, Per Protocol, Radiology Contrast, Routine Given 04/29/2024 7:50 AM EDT 25.2 mCi Right Arm documented in this encounter Care Teams Tool Room Attendant Relationship Specialty Start Date End Date Nat Nicolas APRN [address] [place] [address] PCP - General Family Medicine 04/02/24 documented as of this encounter
--- OUTSIDE RECORDS SUMMARY | 2024-06-21 16:13 | XMS_ITS | Encounter Summary ---
[place] [address] Care Team Providers Care Supervisor Malted Milk Name Role Phone Maria Isabel Nat Malloy APRN Primary Care Provider Reason for Visit * Reason Onset Date Comments Error 05/06/2024 Encounter Details Date Type Department Care Team (Late st Contact Info) Description 05/06/2024 Telephone Hematology [place] [phone] Jauni Sosa RN Error Social History Tobacco Use Types Packs/Day Years [...] encounter Miscellaneous Notes * Telephone Encounter - Juani Sosa RN - 05/06/2024 7:34 AM EDTSummary: duplicate encounter Duplicate encounter documented in this encounter Plan of Treatment Upcoming Encounters Date Type Department Care Team (Late st Contact Info) Description 07/02/2024 8:00 AM EST Appointment Hematology [place] [address] 07/02/2024 9:00 AM EST Office Visit Hematology [place] [address] Rosalba Patel MD [facility] [place] [address] 07/02/2024 10:30 AM EST Appointment Hematology [place] [address] 07/07/2024 10:30 AM EST TH Visit (TeleHealth) Hematology [place] [address] Hem/Onc, Clinic Pharmacist None 07/17/2024 9:00 AM EST Appointment Hematology [place] [address] 07/17/2024 10:00 AM EST Office Visit Hematology [place] [address] Rosalba Patel MD [facility] [place] [address] 07/17/2024 11:30 AM EST Appointment Hematology [place] [address] 07/30/2024 7:30 AM EST Appointment Hematology [place] [address] 07/30/2024 8:30 AM EST Office Visit Hematology [place] [address] Yamileth Nur APRN [facility] [place] [address] 07/30/2024 10:00 AM EST Appointment Hematology [place] [address] 08/13/2024 8:00 AM EST Appointment Hematology [place] [address] 08/13/2024 9:00 AM EST Office Visit Hematology [place] [address] Rosalba Patel MD [facility] [place] [address] 08/13/2024 10:30 AM EST Appointment Hematology [place] [address] documented as of this encounter Visit Diagnoses Not on filedocumented in this encounter Care Teams Supervisor Malted Milk Relationship Specialty Start Date End Date Nat Nicolas APRN [address] [place] [address] PCP - General Family Medicine 04/02/24 documented as of this encounter
--- OUTSIDE RECORDS SUMMARY | 2024-06-21 16:13 | XMS_ITS | Encounter Summary ---
[place] [address] Care Team Providers Care Regulatory Scientist Name Role Phone Maria Isabel Nat Malloy APRN Primary Care Provider Reason for Visit * Reason Onset Date Comments Letter Request From Patient 04/24/2024 Encounter Details Date Type Department Care Team (Late st Contact Info) Description 04/24/2024 Notes Only Hematology [place] [phone] Juani Sosa, RN Letter Request From Patient Social History Tobacco Use Types Packs/Day Years [...] as of this encounter Progress Notes * Juani Sosa RN - 04/24/2024 7:24 AM EDTSummary: letter Request for work letter received. Letter written and pended to provider for review and signature. Patient requests letter be sent to [email or web address] documented in this encounter Plan of Treatment Upcoming Encounters Date Type Department Care Team (Late st Contact Info) Description 07/02/2024 8:00 AM EST Appointment Hematology [place] [address] 07/02/2024 9:00 AM EST Office Visit Hematology [place] [address] Rosalba Patel MD [facility] [place] [address] 07/02/2024 10:30 AM EST Appointment Hematology [place] [address] 07/07/2024 10:30 AM EST TH Visit (TeleHealth) [place] [address] Hem/Onc, Clinic Pharmacist None 07/17/2024 9:00 AM EST Appointment Hematology [place] [address] 07/17/2024 10:00 AM EST Office Visit Hematology [place] [address] Rosalba Patel MD [facility] [place] [address] 07/17/2024 11:30 AM EST Appointment Hematology [place] [address] 07/30/2024 7:30 AM EST Appointment Hematology [place] [address] 07/30/2024 8:30 AM EST Office Visit Hematology [place] [address] Yamileth Nur APRN [facility] [place] [address] 07/30/2024 10:00 AM EST Appointment Hematology [place] [address] 08/13/2024 8:00 AM EST Appointment Hematology and Oncology at [place] [phone] 08/13/2024 9:00 AM EST Office Visit Hematology [place] [address] Rosalba Patel MD [facility] [place] [address] 08/13/2024 10:30 AM EST Appointment Hematology and Oncology at [address] documented as of this encounter Visit Diagnoses Not on filedocumented in this encounter Care Teams Regulatory Scientist Relationship Specialty Start Date End Date Nat Nicolas APRN [address] [place] [address] PCP - General Family Medicine 04/02/24 documented as of this encounter
--- OUTSIDE RECORDS SUMMARY | 2024-06-21 16:14 | XMS_ITS | Encounter Summary ---
Author Organization [facility] [place] [address] Care Team Providers Care Financial Institution Treasurer Name Role Phone Carl Garvey DNP Primary Care Provider Encounter Details Date Type Department Care Team (Late st Contact Info) Description 03/06/2024 1:30 PM EDT Ancillary Procedure Radiology [facility] at [facility] [place] [address] Maricruz Dumont RN Social History Tobacco Use Types Packs/Day [...] AM EST Appointment Hematology [place] [address] 07/02/2024 9:00 AM EST Office Visit [place] [address] Rosalba Patel MD [facility] [place] [address] 07/02/2024 10:30 AM EST Appointment H[place] [address] 07/07/2024 10:30 AM EST TH Visit (TeleHealth) [place] [address] Hem/Onc, Clinic Pharmacist None 07/17/2024 9:00 AM EST Appointment [place] [address] 07/17/2024 10:00 AM EST Office Visit [place] [address] Rosalba Patel MD [facility] [address] [place] [address] 07/17/2024 11:30 AM EST Appointment [place] [address] 07/30/2024 7:30 AM EST Appointment [place] [address] 07/30/2024 8:30 AM EST Office Visit [place] [address] Yamileth Nur APRN [facility] [address] [place] [address] 07/30/2024 10:00 AM EST Appointment [place] [address] 08/13/2024 8:00 AM EST Appointment [place] [address] 08/13/2024 9:00 AM EST Office Visit [place]emat[place] [address] Rosalba Patel MD [facility] [place] [address] 08/13/2024 10:30 AM EST Appointment [place] [address] documented as of this encounter Procedures Procedure Name Priority Date/Time Associated Diagnosis Comments FILM LIBRARY STORAGE ONLY MAMMO Routine 03/06/2024 1:30 PM EDT documented in this encounter Results * Film Library- Storage Only Mammo (03/06/2024 1:30 PM EDT) 03/10/2024 7:15 AM EDT Narrative [facility] - 03/10/2024 7:15 AM EDT This exam is auto-finalizing. It's purpose is for storage only. Maricruz Dumont RN IMG FILM LIBRARY ORD ERABLES [place], [place] documented in this encounter Visit Diagnoses Not on filedocumented in this encounter Care Teams Financial Institution Treasurer Relationship Specialty Start Date End Date Carl Garvey DNP [address] [place] [address] PCP - General Family Medicine 05/03/20 04/01/24 documented as of this encounter
--- OUTSIDE RECORDS SUMMARY | 2024-06-21 16:14 | XMS_ITS | Encounter Summary ---
Author Organization [facility] [place] [address] Care Team Providers Care Reinforced Ironworker Name Role Phone Nat Nicolas APRN Primary Care Provider Reason for Visit * Reason Comments Advice Only * Consultation (Routine) - Closed Specialty Diagnoses / Procedures Referred By Contgiuliana t Referred To Contact Hematology and Oncology Diagnoses Abnormal mammogram Breast cancer Carl Garvey, DNP [address] [place] [address] [facility] [address] [place] [address] Referral ID Status Reason Start Date Expiration Date V isits Requested Visits Authorized [id number] Closed Consult, Test & Treat PCP Updated and/or Approved 03/07/2024 03/07/2025 1 1 Encounter Details Date Type Department Care Team (Late st Contact Info) Description 04/09/2024 9:00 AM EDT Office Visit Hematology [place] [address] Emily Amaral MD [facility] [place] [address] Malignant neoplasm of lower-outer quadrant of left breast of female, estrogen receptor positive (Primary Dx) Social History Tobacco Use Types [...] Sign Reading Time Taken Comments Blood Pressure 144/89 04/09/2024 8:38 AM EDT Pulse 109 04/09/2024 8:38 AM EDT Temperature 36.5 ??C (97.7 ??F) 04/09/2024 8:38 AM ED T Respiratory Rate 18 04/09/2024 8:38 AM EDT Oxygen Saturation 96% 04/09/2024 8:38 AM EDT Inhaled Oxygen Concentration - - Weight 81.3 kg (179 lb 3.7 oz) 04/09/2024 8:38 A M EDT Height 164.2 cm (5' 4.65) 04/09/2024 8:38 AM ED T Body Mass Index 30.15 04/09/2024 8:38 AM EDT documented in this encounter Progress Notes * Emily Amaral MD - 04/09/2024 9:00 AM EDT BREAST CLINIC OUTPATIENT CONSULTATION Patient: Martha Rodriguez : 1965 AGE: 59 y.o. CONSULTING PHYSICIAN: Emily Amaral MD REFERRING PHYSICIAN: Carl Garvey PRIMARY CARE PHYSICIAN: Nat Nicolas APRN REASON FOR VISIT New patient visit HISTORY OF PRESENT ILLNESS: Martha is a 59 y.o. female who presents today for a comprehensive breastclinic consultation regarding newly diagnosed left breast cancer. Patient reports having longstanding abdominal pain with intermittent worsening symptoms and went to an ED for evaluation were imagingincidentally found a breast mass. On 03/06 bilateral screening mammogram showed a 2.5cm spiculated mass in the mid lateral breast witharchitectural distortion and nipple retraction. Calcifications were extending inferior and mediallyfrom the mass along with a few scattered pleomorphic calcifications. Right breast showed no suspicious findings. Left breast ultrasound showed a 2.5cm mass at 3:00 4cm FN Biopsy of this mass showed Invasive Lobular Carcinoma, intermediate grade, ER+ (>90%, storng) / NE+ (70%, strong), HER2 negative by FISH. [place] clip was placed at the site. On 04/08 breast MRI was non-diagnostic due to motion artifact. Plan has been made to repeat the MRI later today. She denies other breast symptoms of masses, skin changes, nipple discharge, or adenopathy. She alsodenies any new constitutional symptoms of fatigue, weight loss, fever, or headache. No blurry vision, abdominal pain or deep bone or joint pain. Past Medical History: Diagnosis Date HTN (hypertension) 02/14/2013 Migraine headache 02/14/2013 Past Surgical History: Procedure Laterality Date MAMMO US BIOPSY LEFT Left 04/02/2024 Mammo Us Biopsy Left 04/02/2024 Dorota Anderson MD [facility] RAD MAMMOGRAPHY MEDICATIONS: atenoloL, benzonatate, hydroCHLOROthiazide, ibuprofen, lisinopriL, meclizine, and metFORMIN Allergies Allergen Reactions Sulfa (Sulfonamide Antibiotics) Rash Family History Problem Relation Age of Onset Ovarian Cancer Mother 70 's. of same Ovarian Cancer Sister 59 Breast Cancer Neg Hx Social History Tobacco Use Smoking status: Never Smokeless tobacco: Never Vaping Use Vaping status: Never Used Substance Use Topics Alcohol use: No Drug use: Never Age of menarche: 14 Age of menopause: yrs ago /Para: Age of first live : 23 OCP use: None HRT use: None Prior breast biopsies: None prior REVIEW OF SYSTEMS: Relevant positive review of systems as above, remainder of a 14-point review of systems negative. Vitals: 04/09/24 0838 BP: 144/89 Patient Position: Sitting Pulse: (!) 109 Resp: 18 Temp: 36.5 ??C (97.7 ??F) TempSrc: Temporal SpO2: 96% Weight: 81.3 kg (179 lb 3.7 oz) Height: 164.2 cm (5' 4.65) PHYSICAL EXAM: General: well appearing, alert and oriented x 3. No acute distress. Head and neck: Normocephalic, atraumatic. Sclerae are anicteric. Neck is soft and supple. No masses. No cervical or clavicular adenopathy. Chest/Lungs: CTAB Heart: RRR, no m/r/g Abdomen: Soft, nontender, and nondistended. No palpable masses. No organomegaly detected. Extremities: No cyanosis, clubbing, or edema. Breast exam: A multi-positional bilateral breast exam was performed. There is no skin dimpling, left nipple is retracted. Right breast: no palpable dominant masses, no nipple discharge, no skin changes. Right axilla: no palpable adenopathy. Left breast: palpable mass in the central lateral breast measuring 3 x 3cm with nipple retraction, no nipple discharge, no skin changes. Left axilla: no palpable adenopathy.- IMAGING: I personally reviewed the following radiology image(s) and report(s) in detail as part of today's consultation -- DH READ OF OUTSIDE IMAGING -- DATES and TYPE OF EXAM: Bilateral screening mammograms from 03/06/2024 and ultrasound from the same date FINDINGS: RIGHT breast: Normal and unchanged LEFT [...] staging these may need to be biopsied ----- Left ultrasound guided biopsy CLINICAL HISTORY: abnormal finding 2nd read 2.4 cm Mass in the left breast 3:00 Radian 4 cm from the nipple. PROCEDURAL DETAILS: Informed consent was obtained. Sterile technique was deployed. Approximately 15cc of 1% lidocaine used for local anesthesia. A small skin incision was made and a biopsy was performed under ultrasoundguidance. 2 core biopsy specimens were obtained using a Achieve 14g device. Satisfactory sampling was obtained. A ArchipelagorImmunetrics [place] 14G marker clip was placed. Cranio-caudal and lateral digital mammography performed to determine biopsy marker placement, which was shown to be at the expected location. COMPLICATIONS: None. PATHOLOGIC DIAGNOSIS: Pending IMPRESSION Pending result RECOMMENDATION: Pending Breast MRI 04/08/24 Non-diagnostic, being repeated today. PATHOLOGY: I personally reviewed the following pathology report(s) in detail as part of today's consultation Final Diagnosis A. Left breast, core needle biopsy: - Invasive lobular carcinoma, intermediate grade (modified SBR score = 7), measuring at least 14 mm. - Lymphovascular invasion not identified. at 1151 Additional Studies Estrogen Receptor (ER) immunoreactivity: Positive Cancer cells with immunostaining: >90% Stain intensity: Strong Progesterone Receptor (NE) immunoreactivity: Positive Cancer cells with immunostainin% Stain intensity: Strong HER2 FISH: separate report to follow ASSESSMENT: Martha is a 59 y.o. woman with left ILC, G2, ER/NE+ HER2- (2.5cm by US) with nipple retraction, hereto discuss management. We reviewed general surgical options for the locoregional management of breast cancer including breast conservation or total mastectomy with or without immediate reconstruction. I discussed these options for the locoregional management of her breast cancer in detail and reviewed the survival and local recurrence data for both options. She understands that that risk of local recurrence is a bit higher with breast conservation and that radiation therapy is usually recommended if she opts for partial mastectomy to help reduce this risk, but that overall survival is equivalent regardless of her surgical choice. She also understands that adjuvant systemic therapy recommendations (endocrine and/or chemotherapy) are also independent of her surgical choice and that she will meet with medical oncology after surgery to discuss this further. We discussed the fact that negative surgical margins arenecessary, and that additional surgery may be required to achieve this depending on final pathology. I also explained that partial mastectomy may result in some asymmetry in comparison to the contralateral breast. We reviewed the rationale and technique of axillary staging and the fact that she will need joel evaluation with a sentinel lymph node excision with either procedure. She understands that that if significant joel disease is identified with the sentinel lymph node, that a complete axillary lymph node dissection may be recommended. Unfortunately her MRI yesterday was non-diagnostic and needs to be repeated today for a better assessment of extent of disease. On exam the breast cancer feels larger than estimated by ultrasound, nopalpable nodes were noted. She is scheduled for a breast MRI later today which will help define extent of disease and subsequent surgical plan. We reviewed the fact that the size of lobular cancer can often be underestimated by mammogram and ultrasound. Pending the MRI results, may refer to medicaloncology to see if any role for neoadjuvant therapy. All of the above was discussed with the patient who was in agreement with the plan. FOLLOW-UP PLAN: - Breast MRI today - Follow up with me after the results to review and discuss next steps in management I have spent a total of 65 minutes on this patient's care today. This time includes [id number] time with the patient as well as time spent reviewing patient records, coordinating/communicating withcare teams and documenting the patient visit. EMILY AMARAL MD 04/09/2024 documented in this encounter Plan of Treatment Upcoming Encounters Date Type Department Care Team (Late st Contact Info) Description 07/02/2024 8:00 AM EST Appointment Hematology [place] [address] 07/02/2024 9:00 AM EST Office Visit Hematology [place] [address] Rosalba Patel MD [facility] [place] [address] 07/02/2024 10:30 AM EST Appointment Hematology [place] [address] 07/07/2024 10:30 AM EST TH Visit (TeleHealth) [place]ematology [place] [address] Hem/Onc, Clinic Pharmacist None 07/17/2024 9:00 AM EST Appointment Hematology and Oncology at [place] [phone] 07/17/2024 10:00 AM EST Office Visit Hematology and Oncology at [place] [phone] Rosalba Patel MD [facility] [place] [address] 07/17/2024 11:30 AM EST Appointment Hematology and Oncology at [place] [phone] 07/30/2024 7:30 AM EST Appointment Hematology [place] [address] 07/30/2024 8:30 AM EST Office Visit Hematology and Oncology at [place] [phone] Yamileth Nur APRN [facility] [place] [address] 07/30/2024 10:00 AM EST Appointment Hematology [place] [address] 08/13/2024 8:00 AM EST Appointment Hematology [place] [address] 08/13/2024 9:00 AM EST Office Visit [place]ematology [place] [address] Rosalba Patel MD [facility] [place] [address] 08/13/2024 10:30 AM EST Appointment Hematology and Oncology at [place] [phone] documented as of this encounter Visit Diagnoses Diagnosis Malignant neoplasm of lower-outer quadrant of left breast of female, estrogen receptor positive- Primary documented in this encounter Care Teams Reinforced Ironworker Relationship Specialty Start Date End Date Nat Nicolas, FLIGHT TECHNICIAN [address] [place] [address] PCP - General Family Medicine 04/02/24 documented as of this encounter
--- OUTSIDE RECORDS SUMMARY | 2024-06-21 16:14 | XMS_ITS | Encounter Summary ---
Author Organization [facility] [place] [address] Care Team Providers Care Family Educator Name Role Phone Carl Garvey DNP Primary Care Provider [phone] Encounter Details Date Type Department Care Team (Late Contact Info) Description 03/11/2024 [place] [phone] Didi Loredo, RN Social History Tobacco Use [...] AM EST Appointment Hematology [place] [address] 07/02/2024 9:00 AM EST Office Visit Hematology [place] [address] Rosalba Patel MD [facility] [place] [address] 07/02/2024 10:30 AM EST Appointment Hematology [place] [address] 07/07/2024 10:30 AM EST TH Visit (TeleHealth) Hematology [place] [address] Hem/Onc, Clinic Pharmacist None 07/17/2024 9:00 AM EST Appointment Hematology [place] [address] 07/17/2024 10:00 AM EST Office Visit Hematology [place] [address] Rosalba Patel MD [facility] [place] [address] 07/17/2024 11:30 AM EST Appointment Hematology [place] [address] 07/30/2024 7:30 AM EST Appointment Hematology [place] [address] 07/30/2024 8:30 AM EST Office Visit Hematology [place] [address] Yamileth Nur APRN [facility] [place] [address] 07/30/2024 10:00 AM EST Appointment Hematology [place] [address] 08/13/2024 8:00 AM EST Appointment Hematology [place] [address] 08/13/2024 9:00 AM EST Office Visit Hematology [place] [address] Rosalba Patel MD [facility] [place] [address] 08/13/2024 10:30 AM EST Appointment Hematology [place] [address] documented as of this encounter Visit Diagnoses Not on filedocumented in this encounter Care Teams Family Educator Relationship Specialty Start Date End Date Carl Garvey DNP [address] [place] [address] PCP - General Family Medicine 05/03/20 04/01/24 documented as of this encounter
--- OUTSIDE RECORDS SUMMARY | 2024-06-21 16:14 | XMS_ITS | Encounter Summary ---
Author Organization [facility] [place] [address] Care Team Providers Care Marine Photographer Name Role Phone Carl Garvey DNP Primary Care Provider [phone] Encounter Details Date Type Department Care Team (Late Contact Info) Description 03/12/2024 [place] [phone] Didi Loredo, RN Social History Tobacco Use [...] AM EST Appointment Hematology [place] [address] 07/02/2024 9:00 AM EST Office Visit Hematology [place] [address] Rosalba Patel MD [facility] [place] [address] 07/02/2024 10:30 AM EST Appointment Hematology [place] [address] 07/07/2024 10:30 AM EST TH Visit (TeleHealth) Hematology [place] [address] Hem/Onc, Clinic Pharmacist None 07/17/2024 9:00 AM EST Appointment Hematology [place] [address] 07/17/2024 10:00 AM EST Office Visit Hematology [place] [address] Rosalba Patel MD [facility] [place] [address] 07/17/2024 11:30 AM EST Appointment Hematology [place] [address] 07/30/2024 7:30 AM EST Appointment Hematology [place] [address] 07/30/2024 8:30 AM EST Office Visit Hematology [place] [address] Yamileth Nur APRN [facility] [place] [address] 07/30/2024 10:00 AM EST Appointment Hematology [place] [address] 08/13/2024 8:00 AM EST Appointment Hematology [place] [address] 08/13/2024 9:00 AM EST Office Visit Hematology [place] [address] Rosalba Patel MD [facility] [place] [address] 08/13/2024 10:30 AM EST Appointment Hematology [place] [address] documented as of this encounter Visit Diagnoses Not on filedocumented in this encounter Care Teams Marine Photographer Relationship Specialty Start Date End Date Carl Garvey DNP [address] [place] [address] PCP - General Family Medicine 05/03/20 04/01/24 documented as of this encounter
--- OUTSIDE RECORDS SUMMARY | 2024-06-21 16:14 | XMS_ITS | Encounter Summary ---
[place] [address] Care Team Providers Care Audio Visual Facilities Engineer Name Role Phone Maria Isabel Nat Malloy APRN Primary Care Provider Encounter Details Date Type Department Care Team (Late st Contact Info) Description 04/09/2024 Patient Outreach Hematology [place] [address] Ad Coates, RN Social History Tobacco Use Types Packs/Day [...] as of this encounter Progress Notes * Ad Coates, RN - 04/09/2024 7:07 PM EDT Comprehensive Breast Program (CBP) Nurse Navigator Note Martha Rodriguez is a 59 y.o. female with ER/MT+/HER2 negative left breast cancer. I met with the patient and her , Patel, and daughter, Colleen, after her surgical oncology consultation. As of now Martha is not sure of plan for surgery (she believes it might be a mastectomy) and she is awaiting additional MRI to be done later today. (04/08 breast MRI was non-diagnostic due to motion artifact.) Should mastectomy be recommended she is interested in a consultation with a plastic surgeonto discuss reconstruction options. She understands that Dr. Amaral will contact her with breast MRI results once they are known and together they will come up with a plan for treatment. Dr. Amaral may recommend a meeting with one of our breast medical oncologists in the near future. Martha understands this could possibly be scheduled on 04/16 in the afternoon (exact date/time TBD) and inquired about this as she would like her daughter Colleen to come with her. Martha has another daughter, Annabelle, who lives with she and her along with her daughter's two children. Colleen lives about 30 minutes away from them. We will always attempt to coordinate her post operative appts. related to her travel distance from [facility]. SPECIFIC TEACHIN. Breast Cancer Treatment Handbook (Genoveva Sanchez, 2021) was sent via mail. 2. She understands she will meet with a medical oncologist (possibly next week) and, possibly, a radiation oncologist ([facility]) after surgery and that [facility] will arrange these appts. as well as afollow up with Dr. Amaral post operatively. 3. Contact phone number for questions or concerns in the immediate post- operative period. 4. Comprehensive Breast Program Binder provided. 5. Post Breast Surgery Exercises handout created by physical therapists at [facility] (not reviewed). 6. Breast Cancer Treatment Process care map provided and reviewed. 7. Contact information for the general surgery clinic nurses was given and the doctor travel registered nurse oncology system explained. Twenty minutes was spent in education and providing support. She verbalized understanding of the plan of care and states all her questions were answered. Martha has our contact information. Pre-op MRI: 04/08/24 Referrals made today Social work Martha met with our CBP social media designer today. AD COATES, RN documented in this encounter Plan of Treatment Upcoming Encounters Date Type Department Care Team (Late st Contact Info) Description 07/02/2024 8:00 AM EST Appointment Hematology [place] [address] 07/02/2024 9:00 AM EST Office Visit Hematology [place] [address] Rosalba Patel MD [facility] [place] [address] 07/02/2024 10:30 AM EST Appointment Hematology [place] [address] 07/07/2024 10:30 AM EST TH Visit (TeleHealth) Hematology [place] [address] Hem/Onc, Clinic Pharmacist None 07/17/2024 9:00 AM EST Appointment Hematology [place] [address] 07/17/2024 10:00 AM EST Office Visit Hematology [place] [address] Rosalba Patel MD [facility] [place] [address] 07/17/2024 11:30 AM EST Appointment Hematology [place] [address] 07/30/2024 7:30 AM EST Appointment Hematology [place] [address] 07/30/2024 8:30 AM EST Office Visit Hematology [place] [address] Yamileth Nur APRN [facility] [place] [address] 07/30/2024 10:00 AM EST Appointment Hematology and Oncology at [place] [phone] 08/13/2024 8:00 AM EST Appointment Hematology and Oncology at [place] [phone] 08/13/2024 9:00 AM EST Office Visit Hematology and Oncology at [place] [phone] Rosalba Patel MD [facility] [place] [address] 08/13/2024 10:30 AM EST Appointment Hematology and Oncology at [place] [address] documented as of this encounter Visit Diagnoses Not on filedocumented in this encounter Care Teams Audio Visual Facilities Engineer Relationship Specialty Start Date End Date Nat Nicolas APRN [address] [place] [address] PCP - General Family Medicine 04/02/24 documented as of this encounter
--- OUTSIDE RECORDS SUMMARY | 2024-06-21 16:14 | XMS_ITS | Encounter Summary ---
Author [facility] [place] [address] Care Team Providers Care Radio Commentator Name Role Phone Zac Nicolascarlos Malloy APRN Primary Care Provider Encounter Details Date Type Department Care Team (Latest Contact Info) Description 04/02/2024 Travel Social History Tobacco Use Types Packs/Day [...] AM EST Appointment Hematology [place] [address] 07/02/2024 9:00 AM EST Office Visit [place]ematology [place] [address] Rosalba Patel MD [facility] [place] [address] 07/02/2024 10:30 AM EST Appointment Hematology [place] [address] 07/07/2024 10:30 AM EST TH Visit (TeleHealth) [place] [address] Hem/Onc, Clinic Pharmacist None 07/17/2024 9:00 AM EST Appointment Hemat[place] [address] 07/17/2024 10:00 AM EST Office Visit [place]ology [place] [address] Rosalba Patel MD [facility] [place] [address] 07/17/2024 11:30 AM EST Appointment [place] [address] 07/30/2024 7:30 AM EST Appointment [place] [address] 07/30/2024 8:30 AM EST Office Visit [place] [address] Yamileth Nur APRN [facility] [place] [address] 07/30/2024 10:00 AM EST Appointment [place] [address] 08/13/2024 8:00 AM EST Appointment [place] [address] 08/13/2024 9:00 AM EST Office Visit [place]ematology [place] [address] Rosalba Patel MD [facility] [place] [address] 08/13/2024 10:30 AM EST Appointment [place] [address] documented as of this encounter Visit Diagnoses Not on filedocumented in this encounter Care Teams Radio Commentator Relationship Specialty Start Date End Date Nat Nicolas APRN [address] [place] [address] PCP - General Family Medicine 04/02/24 documented as of this encounter
--- OUTSIDE RECORDS SUMMARY | 2024-06-21 16:14 | XMS_ITS | Encounter Summary ---
Author Organization [facility] [place] [address] Care Team Providers Care Instrumentation Instructor Name Role Phone Zac Nicolascarlos Malloy APRN Primary Care Provider Encounter Details Date Type Department Care Team (Latest Contact Info) Description 04/02/2024 7:45 AM EDT - 04/02/2024 8:27 AM EDT Hospital [place] [phone] Dorota Anderson MD [facility] DR [place] [address] Abnormal finding on breast imaging Discharge Disposition: [...] as of this encounter Progress Notes * Kalie Jorgensen MD - 04/01/2024 10:38 AM EDT Pre-procedure note for needle breast biopsies performed in radiology. Procedure date: Tomorrow Procedure type: left breast ultrasound guided biopsy Allergies: Sulfa (sulfonamide antibiotics) Medications: Current Outpatient Medications: lisinopriL (Zestril) 20 mg Tablet, Take 0.5 tablets by mouth daily., Disp: 30 tablet, Rfl: 0 metFORMIN (FORTAMET) 500 mg Tablet Extended Rel 24 hr, Take 1 tablet by mouth 2 times daily (with meals)., Disp: 60 tablet, Rfl: 3 benzonatate (TESSALON) 100 mg Capsule, Take 1 capsule by mouth 3 times daily as needed for Cough., Disp: 30 tablet, Rfl: 0 ibuprofen (ADVIL;MOTRIN) 600 mg Tablet, Take 1 tablet by mouth every 6 hours as needed for Pain., Disp: 30 tablet, Rfl: 0 meclizine (ANTIVERT) 25 mg tablet, Take 1 tablet by mouth 3 times daily as needed for Dizziness., Disp: 30 tablet, Rfl: 0 lisinopril (PRINIVIL;ZESTRIL) 20 mg tablet, Take 20 mg by mouth daily., Disp: , Rfl: atenolol (TENORMIN) 25 mg tablet, Take 25 mg by mouth daily., Disp: , Rfl: Anticoagulation status: none stopped on: N/A Imaging reviewed and procedural plan approved by Dr. Kalie Jorgensen MD documented in this encounter Plan of Treatment Upcoming Encounters Date Type Department Care Team (Late st Contact Info) Description 07/02/2024 8:00 AM EST Appointment Hematology and Oncology at [place] [phone] 07/02/2024 9:00 AM EST Office Visit [place]ematology [place] [address] Rosalba Patel MD [facility] [place] [address] 07/02/2024 10:30 AM EST Appointment [place]ology [place] [address] 07/07/2024 10:30 AM EST TH Visit (TeleHealth) Hematology and Oncology at [place] [phone] Hem/Onc, Clinic Pharmacist None 07/17/2024 9:00 AM EST Appointment [place] [address] 07/17/2024 10:00 AM EST Office Visit [place] [address] Rosalba Patel MD [facility] [place] [address] 07/17/2024 11:30 AM EST Appointment [place] [address] 07/30/2024 7:30 AM EST Appointment [place] [address] 07/30/2024 8:30 AM EST Office Visit [place]ology [place] [phone] Yamileth Nur APRN [facility] [place] [address] 07/30/2024 10:00 AM EST Appointment [place]ology [place] [address] 08/13/2024 8:00 AM EST Appointment [place]ology [place] [address] 08/13/2024 9:00 AM EST Office Visit [place]ology [place] [phone] Rosalba Patel MD [facility] [place] [address] 08/13/2024 10:30 AM EST Appointment [place] [address] documented as of this encounter Procedures Procedure Name Priority Date/Time Associated Diagnosis Comments MAMMO US BIOPSY LEFT Routine 04/02/2024 9:14 AM EDT Abnormal finding on breast imaging HER-2 FISH Routine 04/02/2024 9:12 AM EDT Abnormal finding on breast imaging SURGICAL PATHOLOGY Routine 04/02/2024 9: 12 AM EDT Abnormal finding on breast imaging documented in this encounter Results * Mammo Us Biopsy Left (04/02/2024 9:14 AM EDT) WORKSTATION ID [id number] 1 RAD Anatomical [...] who have questions please contact the health assurance services manager health care that requested your imaging first. ? --------ORIGINAL [...] 14g device. Satisfactory sampling was obtained. A [facility] Chastity 14G marker clip was placed. Cranio-caudal and [...] who have questions please contact the health assurance services manager health care that requested your imaging first. ? Impressions 04/03/2024 4:37 PM EDT Pending result [...] who have questions please contact the health assurance services manager health care that requested your imaging first. ? Electronically signed by: Dorota Anderson MD, [facility]ly [facility] ([phone]), at 04/03/2024 4:[address] [facility] [address] [place], [place] ??[address] Narrative 04/03/2024 4:37 PM EDT EXAMINATION: MAMMO [...] 14g device. Satisfactory sampling was obtained. A Triond 14G marker clip was placed. Cranio-caudal and [...] interpretation. PATHOLOGIC DIAGNOSIS: Pending Dorota Anderson [place] [facility] [place] * HER-2 FISH (04/02/2024 9:12 AM EDT) Indication for Study 04/09/2024 9:17 AM EDT [facility] Specimen Tissue Case/Block ID [id number] 04/09/2024 9:17 AM T [facility] HER2 FISH Final Report Method Fluorescence in situ hybridization (FISH) with chromosome 17 centromere (17p11.1-q11.1) probe and a locus specific probe for the HER2 gene locus (17q11.2-q12). 04/09/2024 9:17 AM T [facility] HER2/GEENA FISH Results Negative 04/09/2024 9:17 AM [facility] Total # signals/Total # nuclei counted for HER2 probe 321 04/09/2024 9:17 AM [facility] Total # Signals/Total # Nuclei counted for CEP-17 probe 184 04/09/2024 9:17 AM [facility] HER2 to CEP-17 Ratio (Normal Range <2.0) 1.7 04/09/2024 9:17 AM [facility] Total # Nuclei Counted 60 04/09/2024 9:17 AM [facility] Average # HER2 Signals/Cell 5.4 04/09/2024 9:17 AM [facility] HER2 FISH Interpretation Paraffin-embedded tissue sections were submitted for HER2 (ERBB2) gene amplification analysis by FISH. Direct analysis was performed using the HackSurferion Kit. Slide adequacy and signal enumeration were [...] FDA for clinical diagnostic use. Reference: Darleen GRUBBS, et al. Recommendations for human epidermal growth factor receptor 2 testing in breast cancer: [place] Society of Clinical Oncology/College of Scottish Pathologists clinical practice guideline update. J Clin Oncol. 2013 May 23. Darleen GRUBBS, et al. Human Epidermal Growth Factor Receptor 2 Testing in Breast Cancer: [place] Society of Clinical Oncology/College of Scottish Pathologists Clinical Practice Guideline Focused Update. Arch Pathol Lab Med. 2017December 19/J Clin Oncol. 2017December 19. 04/09/2024 9:17 AM [facility] Sign-out by This result has been reviewed by MAGDALENA ARMSTRONG MD, on 04/09/24 at 9:17 AM. 04/09/2024 9:17 AM [facility] Tissue LEFT BREAST STRUCTURE / Unknown 04/02/2024 9:12 AM EDT 04/03/2024 10:16 AM EDT Dorota Anderson MD MOLECULAR ORDERABLES [facility] [place] [address] * (ABNORMAL) Surgical Pathology (04/02/2024 9:12 AM EDT) Case Report Surgical Pathology Report ? Case: [id number] ? Authorizing Provider: ??Dorota Anderson MD ? Collected: ? 04/02/2024 0912 ? Ordering Location: ? [place] [facility]Received: ?04/02/2024 1254 ? Pathologist: ? Keyla Rodas, DO ? Specimen: ?Breast, Left, LEFT BREAST US BX ? 04/04/2024 11:51 AM EDT [facility] Final Diagnosis A. Left breast, core needle biopsy: - Invasive lobular carcinoma, intermediate grade (modified SBR score = 7), measuring at least 14 mm. - Lymphovascular invasion not identified. 04/04/2024 11:51 AM [facility] Additional Studies Estrogen Receptor (ER) immunoreactivity: Positive Cancer cells with immunostaining: >90% Stain intensity: Strong Progesterone Receptor (NM) immunoreactivity: Positive Cancer cells with immunostainin% Stain [...] suggest invasive cancers with these results are heterogeneous in both behavior and biology and often have gene expression profiles more similar to ER-negative cancers. 04/04/2024 11:51 AM [facility] Disclaimer(s) Formalin-fixed, paraffin-embedded tissue sections are studied [...] on paraffin-embedded tissue sections fixed in 10% neutral buffered formalin for 6-72 hours using the polymer system technique with appropriate controls. The assays were performed according to the wrist liner's instructions using Anti-ER (SP1) and Anti-NM (16) antibodies. These tests were developed and their performance characteristics determined by [facility]. They may not have been cleared [...] to perform high complexity clinical laboratory testing. 04/04/2024 11:51 AM EDT [facility] Clinical Information A. Breast, Left, LEFT BREAST US BX Mass Rule out malignancy LEFT BREAST US BX 04/04/2024 11:51 AM EDT [facility] Gross Description A. Breast, Left, LEFT BREAST US BX. A - Labeled/Fixative: Left breast ultrasound biopsy, formalin. Quantity/Size: Two, 0.7 x 0.2 cm-1.5 x 0.2 cm Tissue Description: [place]-white fibrofatty needle core biopsies. Sections/Processing: Entirely submitted in 1 cassette labeled A1. Ischemic time: 1 minute ajw 04/04/2024 11:51 AM EDT [facility] Result Note THIS RESULT REQUIRES PHYSICIAN/KINGS FOLLOW UP(A) 04/04/2024 11:51 AM EDT [facility] Tissue LEFT BREAST STRUCTURE / Unknown 04/02/2024 9:12 AM EDT 04/02/2024 12:54 PM EDT Comment:LEFT BREAST US BX Dorota Anderson MD PATHOLOGY/CYTOLOGY O RDERABLES [facility] [place] [address] documented in this encounter Visit Diagnoses Diagnosis Abnormal finding on breast imaging Other (abnormal) findings on radiological examination of breast documented in this encounter Administered Medications Inactive Administered Medications - up to 3 most recent administrations Medication Order MAR Action Action Date Dose Rate Site lidocaine (Xylocaine) 1% (10 mg/mL) injection 0-200 mg 0-200 mg (0-20 mL), Subcutaneous, ONCE, 1 dose, On Sun04/02/24 at 0915, Radiology Protocol Medication, Routine Given 04/02/2024 9:04 AM EDT 20 mg documented in this encounter Care Teams Instrumentation Instructor Relationship Specialty Start Date End Date Nat Nicolas APRN [address] [place] [address] PCP - General Family Medicine 04/02/24 documented as of this encounter
--- OUTSIDE RECORDS SUMMARY | 2024-06-21 16:14 | XMS_ITS | Encounter Summary ---
[place] [address] Care Team Providers Care Hydro Plant Site Manager Name Role Phone NicolasZacNatcarlos Malloy APRN Primary Care Provider Encounter Details Date Type Department Care Team (Late Contact Info) Description 04/08/2024 Tele[place] [phone] Didi Loredo, RN Social History Tobacco Use [...] AM EST Appointment Hematology [place] [address] 07/02/2024 9:00 AM EST Office Visit Hematology [place] [address] Rosalba Patel MD [facility] [place] [address] 07/02/2024 10:30 AM EST Appointment Hematology [place] [address] 07/07/2024 10:30 AM EST TH Visit (TeleHealth) Hematology and Oncology at [place] [phone] Hem/Onc, Clinic Pharmacist None 07/17/2024 9:00 AM EST Appointment Hematology [place] [address] 07/17/2024 10:00 AM EST Office Visit Hematology [place] [address] Rosalba Patel MD [facility] [place] [address] 07/17/2024 11:30 AM EST Appointment Hematology [place] [address] 07/30/2024 7:30 AM EST Appointment Hematology [place] [address] 07/30/2024 8:30 AM EST Office Visit Hematology [place] [address] Yamileth Nur APRN [facility] [place] [address] 07/30/2024 10:00 AM EST Appointment Hematology [place] [address] 08/13/2024 8:00 AM EST Appointment Hematology [place] [address] 08/13/2024 9:00 AM EST Office Visit Hematology [place] [address] Rosalba Patel MD [facility] [place] [address] 08/13/2024 10:30 AM EST Appointment Hematology [place] [address] documented as of this encounter Visit Diagnoses Not on filedocumented in this encounter Care Teams Hydro Plant Site Manager Relationship Specialty Start Date End Date Nat Nicolas APRN [address] [place] [address] PCP - General Family Medicine 04/02/24 documented as of this encounter
--- OUTSIDE RECORDS SUMMARY | 2024-06-21 16:14 | XMS_ITS | Encounter Summary ---
[place] [address] Care Team Providers Care Blood Coordinator Name Role Phone Nat Nicolas APRN Primary Care Provider Reason for Referral * Diagnostic Test (Routine) - Closed Specialty Diagnoses / Procedures Referred By Laurel garrett Referred To Contact Radiology Diagnoses Malignant neoplasm of left breast in female, estrogen receptor positive, unspecified site of breast Procedures MRI Breast wwo Contrast Daily Samano MD [facility] [place] [address] [place] [address] Referral ID Status Reason Start Date Expiration Date V isits Requested Visits Authorized [id number] Closed Specialty Service Requested 04/04/2024 10/02/2025 1 1 Reason for Visit * Diagnostic Test (Routine) - Closed Specialty Diagnoses / Procedures Referred By Laurel garrett Referred To Contact Radiology Diagnoses Malignant neoplasm of left breast in female, estrogen receptor positive, unspecified site of breast Procedures MRI Breast wwo Contrast Daily Samano MD [facility] [place] [address] [facility] [place] [address] Referral ID Status Reason Start Date Expiration Date V isits Requested Visits Authorized [id number] Closed Specialty Service Requested 04/04/2024 10/02/2025 1 1 Encounter Details Date Type Department Care Team (Latest Contact Info) Description 04/08/2024 8:43 AM EDT - 04/08/2024 11:59 PM EDT Hospital [place] [address] Daily Amaral MD [facility] [place] [address] Malignant neoplasm of left breast [...] AM EST Appointment Hematology [place] [address] 07/02/2024 9:00 AM EST Office Visit Hematology [place] [address] Rosalba Patel MD [facility] [place] [address] 07/02/2024 10:30 AM EST Appointment Hematology [place] [address] 07/07/2024 10:30 AM EST TH Visit (TeleHealth) Hematology [place] [address] Hem/Onc, Clinic Pharmacist None 07/17/2024 9:00 AM EST Appointment Hematology [place] [address] 07/17/2024 10:00 AM EST Office Visit Hematology [place] [address] Rosalba Patel MD [facility] [place] [address] 07/17/2024 11:30 AM EST Appointment Hematology [place] [address] 07/30/2024 7:30 AM EST Appointment Hematology [place] [address] 07/30/2024 8:30 AM EST Office Visit Hematology [place] [address] Yamileth Nur APRN [facility] [place] [address] 07/30/2024 10:00 AM EST Appointment Hematology [place] [address] 08/13/2024 8:00 AM EST Appointment Hematology [place] [address] 08/13/2024 9:00 AM EST Office Visit Hematology [place] [address] Rosalba Patel MD [facility] [place] [address] 08/13/2024 10:30 AM EST Appointment Hematology [place] [address] documented as of this encounter Procedures Procedure Name Priority Date/Time Associated Diagnosis Comments MRI BREAST WWO CONTRAST BILAT Routine 04/08/2024 10:00 AM EDT Malignant neoplasm of left breast in female, estrogen receptor positive, unspecified site of breast documented in this encounter Results * MRI Breast wwo Contrast Bilat (04/08/2024 10:00 AM EDT) WORKSTATION ID [id number] 2 DH RAD Anatomical Region Laterality Modality Breast Bilateral [...] have questions please contact the health care aid that requested your imaging first. ? Narrative 04/08/2024 4:02 PM EDT EXAMINATION: MRI BREAST WWO CONTRAST BILAT CLINICAL INDICATION: new breast cancer. History of left breast ILC ER/NJ positive TECHNIQUE: Multiplanar sequences were obtained pre- [...] contacted for additional images. Daily Amaral MD [facility] [place] S documented in this encounter Visit Diagnoses Diagnosis Malignant neoplasm of left breast in female, estrogen receptor positive, unspecified site of breast documented in this encounter Administered Medications Inactive Administered Medications - up to 3 most recent administrations Medication Order MAR Action Action Date Dose Rate Site gadoterate meglumine (Dotarem) (0.5 mMol/mL) injection solution 0-100 mL 0-100 mL, Intravenous, ONCE PRN, 1 dose, Starting on Sun04/08/24 at 1123, Until Sun04/08/24 at 0945, Per Protocol, Radiology Contrast, Routine Given 04/08/2024 9:45 AM EDT 18 mLs documented in this encounter Care Teams Blood Coordinator Relationship Specialty Start Date End Date Nat Nicolas, PRACTICE MANAGEMENT CONSULTANT [address] [place], [place] [phone] PCP - General Family Medicine 04/02/24 documented as of this encounter
--- OUTSIDE RECORDS SUMMARY | 2024-06-21 16:14 | XMS_ITS | Encounter Summary ---
Author Organization [facility] [place] [address] Care Team Providers Care Apartment Property Manager Name Role Phone Carl Garvey DNP Primary Care Provider Encounter Details Date Type Department Care Team (Late st Contact Info) Description 03/06/2024 1:50 PM EDT Ancillary Procedure Radiology Library at [facility] [place] [address] Maricruz Dumont RN Social History Tobacco Use [...] AM EST Appointment Hematology [place] [address] 07/02/2024 9:00 AM EST Office Visit Hematology [place] [address] Rosalba Patel MD [facility] [place] [address] 07/02/2024 10:30 AM EST Appointment Hematology [place] [address] 07/07/2024 10:30 AM EST TH Visit (TeleHealth) Hematology [place] [address] Hem/Onc, Clinic Pharmacist None 07/17/2024 9:00 AM EST Appointment Hematology [place] [address] 07/17/2024 10:00 AM EST Office Visit Hematology [place] [address] Rosalba Patel MD [facility] [place] [address] 07/17/2024 11:30 AM EST Appointment Hematology [place] [address] 07/30/2024 7:30 AM EST Appointment Hematology [place] [address] 07/30/2024 8:30 AM EST Office Visit Hematology [place] [address] Yamileth Nur APRN [facility] [place] [address] 07/30/2024 10:00 AM EST Appointment Hematology [place] [address] 08/13/2024 8:00 AM EST Appointment Hematology [place] [address] 08/13/2024 9:00 AM EST Office Visit Hematology [place] [address] Rosalba Patel MD [facility] [place] [address] 08/13/2024 10:30 AM EST Appointment Hematology [place] [address] documented as of this encounter Procedures Procedure Name Priority Date/Time Associated Diagnosis Comments FILM LIBRARY STORAGE ONLY ULTRASOUND STUDY Routine 03/06/2024 1:50 PM EDT documented in this encounter Results * Film Library- Storage Only Ultrasound Study (03/06/2024 1:50 PM EDT) 03/10/2024 7:15 AM EDT Narrative [facility] - 03/10/2024 7:15 AM EDT This exam is auto-finalizing. It's purpose is for storage only. Maricruz Dumont RN IMG FILM LIBRARY ORD ERABLES [place], [place] documented in this encounter Visit Diagnoses Not on filedocumented in this encounter Care Teams Apartment Property Manager Relationship Specialty Start Date End Date Carl Garvey DNP [address] [place] [address] PCP - General Family Medicine 05/03/20 04/01/24 documented as of this encounter
--- OUTSIDE RECORDS SUMMARY | 2024-06-21 16:14 | XMS_ITS | Encounter Summary ---
[place] [address] Care Team Providers Care Breaker Off Name Role Phone Nat Nicolas APRN Primary Care Provider Encounter Details Date Type Department Care Team (Late st Contact Info) Description 04/04/2024 Notes Only Hematology [place] [address] Ebony Becerril Social History Tobacco Use Types Packs/Day Years [...] as of this encounter Progress Notes * Ebony Becerril - 04/04/2024 1:43 PM EDTSummary: CBP-newly diagnosed breast cancer New Breast Cancer Referral Martha Rodriguez [id number] Biopsy Location: Biopsy Date: 04.02.2024 Date of referral: 04.04.2024 []Packet sent []Patient notified of appointments [x] Ana to deliver packet at first appt Diagnoses: L ILC Receptors:ER/MA+ Her2 - Tumor size: 2.5 cm Scans: MRI 04.08.2024 Lab: CBC,CMP 04.08.2024 Surgeon: Cristin 04.09.2024 Plastics: Date of Surgery: Med/Onc: Rad/Onc: Physical Therapy: Outside Records: []Path slides [] Images [] Clinic notes [] Image review ordered Neoadjuvant []Yes []No documented in this encounter Plan of Treatment Upcoming Encounters Date Type Department Care Team (Late st Contact Info) Description 07/02/2024 8:00 AM EST Appointment Hematology [place] [address] 07/02/2024 9:00 AM EST Office Visit Hematology [place] [address] Rosalba Patel MD [facility] [place] [address] 07/02/2024 10:30 AM EST Appointment Hematology [place] [address] 07/07/2024 10:30 AM EST TH Visit (TeleHealth) Hematology [place] [address] Hem/Onc, Clinic Pharmacist None 07/17/2024 9:00 AM EST Appointment Hematology [place] [address] 07/17/2024 10:00 AM EST Office Visit Hematology [place] [address] Rosalba Patel MD [facility] [place] [address] 07/17/2024 11:30 AM EST Appointment Hematology [place] [address] 07/30/2024 7:30 AM EST Appointment Hematology [place] [address] 07/30/2024 8:30 AM EST Office Visit Hematology and Oncology at [place] [phone] Yamileth Nur APRN [facility] [place] [address] 07/30/2024 10:00 AM EST Appointment Hematology [place] [address] 08/13/2024 8:00 AM EST Appointment Hematology [place] [address] 08/13/2024 9:00 AM EST Office Visit Hematology [place] [address] Rosalba Patel MD [facility] [place] [address] 08/13/2024 10:30 AM EST Appointment Hematology [place] [address] documented as of this encounter Visit Diagnoses Not on filedocumented in this encounter Care Teams Breaker Off Relationship Specialty Start Date End Date Nat Nicolas APRN [address] [place] [address] PCP - General Family Medicine 04/02/24 documented as of this encounter
--- OUTSIDE RECORDS SUMMARY | 2024-06-21 16:14 | XMS_ITS | Encounter Summary ---
Author Organization [facility] [place] [address] Care Team Providers Care Stone Derrickman And Rigger Name Role Phone Carl Garvey DNP Primary Care Provider Encounter Details Date Type Department Care Team (Late Contact Info) Description 03/06/2024 Interpretation Only Radiology Library at [facility] [place] [address] Maricruz Dumont RN Social History Tobacco Use [...] AM EST Appointment H[place] [address] 07/02/2024 9:00 AM EST Office Visit [place] [phone] Rosalba Patel MD [facility] [place] [address] 07/02/2024 10:30 AM EST Appointment Hematology [place] [address] 07/07/2024 10:30 AM EST TH Visit (TeleHealth) Hematology and Oncology at [place] [phone] Hem/Onc, Clinic Pharmacist None 07/17/2024 9:00 AM EST Appointment H[place] [address] 07/17/2024 10:00 AM EST Office Visit [place]ematology [place] [address] Rosalba Patel MD [facility] [place] [address] 07/17/2024 11:30 AM EST Appointment H[place]ology [place] [address] 07/30/2024 7:30 AM EST Appointment [place] [address] 07/30/2024 8:30 AM EST Office Visit [place]ology [place] [address] Yamileth Nur APRN [facility] [place] [address] 07/30/2024 10:00 AM EST Appointment Hematology [place] [address] 08/13/2024 8:00 AM EST Appointment [place] [address] 08/13/2024 9:00 AM EST Office Visit [place]ematology [place] [address] Rosalba Patel MD [facility] [place] [address] 08/13/2024 10:30 AM EST Appointment [place] [address] documented as of this encounter Procedures Procedure Name Priority Date/Time Associated Diagnosis Comments FILM LIBRARY STORAGE ONLY MAMMO Routine 03/06/2024 1:30 PM EDT documented in this encounter Results * Film Library- Storage Only Mammo (03/06/2024 1:30 PM EDT) 03/10/2024 7:15 AM EDT Narrative [facility] - 03/10/2024 7:15 AM EDT This exam is auto-finalizing. It's purpose is for storage only. Maricruz Dumont RN IMG FILM LIBRARY ORD ERABLES [place], [place] documented in this encounter Visit Diagnoses Not on filedocumented in this encounter Care Teams Stone Derrickman And Rigger Relationship Specialty Start Date End Date Carl Garvey DNP [address] [place] [address] PCP - General Family Medicine 05/03/20 04/01/24 documented as of this encounter
--- OUTSIDE RECORDS SUMMARY | 2024-06-21 16:14 | XMS_ITS | Encounter Summary ---
Author Organization [facility] [place] [address] Care Team Providers Care State Farm Agent Name Role Phone Carl Garvey DNP Primary Care Provider [phone] Encounter Details Date Type Department Care Team (Late st Contact Info) Description 02/08/2021 Ancillary Procedure Radiology Library at [facility] [place] [address] Nat Nicolas, HYDRAULIC ROCK DRILL OPERATOR [address] [place] [address] Social History Tobacco Use Types Packs/Day Years [...] AM EST Appointment Hematology [place] [address] 07/02/2024 9:00 AM EST Office Visit Hematology [place] [phone] Rosalba Patel MD [facility] [place] [address] 07/02/2024 10:30 AM EST Appointment Hematology and Oncology at [place] [phone] 07/07/2024 10:30 AM EST TH Visit (TeleHealth) Hematology and Oncology at [place] [phone] Hem/Onc, Clinic Pharmacist None 07/17/2024 9:00 AM EST Appointment Hematology [place] [address] 07/17/2024 10:00 AM EST Office Visit Hematology and Oncology at [place] [phone] Rosalba Patel MD [facility] [place] [address] 07/17/2024 11:30 AM EST Appointment Hematology [place] [address] 07/30/2024 7:30 AM EST Appointment Hematology [place] [address] 07/30/2024 8:30 AM EST Office Visit [place]ematology [place] [address] Yamileth Nur APRN [facility] [place] [address] 07/30/2024 10:00 AM EST Appointment Hematology [place] [address] 08/13/2024 8:00 AM EST Appointment Hematology [place] [address] 08/13/2024 9:00 AM EST Office Visit [place]ematology [place] [address] Rosalba Patel MD [facility] [place] [address] 08/13/2024 10:30 AM EST Appointment Hematology [place] [address] documented as of this encounter Procedures Procedure Name Priority Date/Time Associated Diagnosis Comments FILM LIBRARY STORAGE ONLY MAMMO Routine 02/08/2021 12:00 AM EDT documented in this encounter Results * Film Library- Storage Only Mammo (02/08/2021 12:00 AM EDT) Narrative [facility] - 03/10/2024 7:23 AM EDT This exam is auto-finalizing. It's purpose is for storage only. Nat Nicolas HYDRAULIC ROCK DRILL OPERATOR IMG FILM LAKSHMI RY ORDERABLES Performing Organization Address City/State/[facility] Co de Phone Number [place], [place] documented in this encounter Visit Diagnoses Not on filedocumented in this encounter Care Teams State Farm Agent Relationship Specialty Start Date End Date Carl Garvey DNP [facility] [address] [place] [address] PCP - General Family Medicine 05/03/20 04/01/24 documented as of this encounter
--- OUTSIDE RECORDS SUMMARY | 2024-06-21 16:14 | XMS_ITS | Encounter Summary ---
Author Organization [facility] [place] [address] Care Team Providers Care Tube Operator Name Role Phone Carl Garvey RUDDY Primary Care Provider [phone] Encounter Details Date Type Department Care Team (Late Contact Info) Description 05/06/2020 Telephone [place] [address] Ruthann Xie Social History Tobacco Use Types [...] AM EST Appointment Hematology [place] [address] 07/02/2024 9:00 AM EST Office Visit Hematology [place] [phone] Rosalba Patel MD [facility] [place] [address] 07/02/2024 10:30 AM EST Appointment Hematology [place] [address] 07/07/2024 10:30 AM EST TH Visit (TeleHealth) Hematology and Oncology at [place] [phone] Hem/Onc, Clinic Pharmacist None 07/17/2024 9:00 AM EST Appointment Hematology [place] [address] 07/17/2024 10:00 AM EST Office Visit Hematology [place] [address] Rosalba Patel MD [facility] [place] [address] 07/17/2024 11:30 AM EST Appointment Hematology [place] [address] 07/30/2024 7:30 AM EST Appointment Hematology [place] [address] 07/30/2024 8:30 AM EST Office Visit Hematology [place] [address] Yamileth Nur APRN [facility] [place] [address] 07/30/2024 10:00 AM EST Appointment Hematology [place] [address] 08/13/2024 8:00 AM EST Appointment Hematology [place] [address] 08/13/2024 9:00 AM EST Office Visit Hematology [place] [address] Rosalba Patel MD [facility] [place] [address] 08/13/2024 10:30 AM EST Appointment Hematology [place] [address] documented as of this encounter Visit Diagnoses Not on filedocumented in this encounter Care Teams Tube Operator Relationship Specialty Start Date End Date Carl Garvey DNP [facility] [address] [place] [address] PCP - General Family Medicine 05/03/20 04/01/24 documented as of this encounter
--- OUTSIDE RECORDS SUMMARY | 2024-06-21 16:14 | XMS_ITS | Encounter Summary ---
[place] [address] Care Team Providers Care Software Product Specialist Name Role Phone Nat Nicolas APRN Primary Care Provider Reason for Referral * Diagnostic Test (Routine) - Closed Specialty Diagnoses / Procedures Referred By Laurel garrett Referred To Contact Radiology Diagnoses Malignant neoplasm of lower-outer quadrant of left breast of female, estrogen receptor positive Procedures MRI Additional Views - Breast Armond Amezcua MD [facility] [place] [address] [facility] [place] [address] Referral ID Status Reason Start Date Expiration Date V isits Requested Visits Authorized [id number] Closed Specialty Service Requested 04/08/2024 10/06/2025 1 1 Encounter Details Date Type Department Care Team (Late st Contact Info) Description 04/08/2024 Orders [place] [address] Armond Amezcua MD [facility] [place] [address] Malignant neoplasm of lower-outer quadrant [...] AM EST Appointment Hematology and Oncology at [place] [phone] 07/02/2024 9:00 AM EST Office Visit Hematology [place] [address] Rosalba Patel MD [facility] [place] [address] 07/02/2024 10:30 AM EST Appointment Hematology [place] [address] 07/07/2024 10:30 AM EST TH Visit (TeleHealth) Hematology [place] [address] Hem/Onc, Clinic Pharmacist None 07/17/2024 9:00 AM EST Appointment Hematology [place] [address] 07/17/2024 10:00 AM EST Office Visit Hematology [place] [address] Rosalba Patel MD [facility] [place] [address] 07/17/2024 11:30 AM EST Appointment Hematology [place] [address] 07/30/2024 7:30 AM EST Appointment Hematology [place] [address] 07/30/2024 8:30 AM EST Office Visit [place]ematology [place] [address] Yamileth Nur APRN [facility] [place] [address] 07/30/2024 10:00 AM EST Appointment Hematology [place] [address] 08/13/2024 8:00 AM EST Appointment Hematology [place] [address] 08/13/2024 9:00 AM EST Office Visit [place]ematology [place] [address] Rosalba Patel MD [facility] [place] [address] 08/13/2024 10:30 AM EST Appointment Hematology [place] [address] documented as of this encounter Results * MRI Additional Views - Breast (04/09/2024 [...] resident's interpretation and agree with the findings, Oliev Garcia at 04/10/2024 12:28 PM Thank you for letting us participate in the care of this patient. ??If you are a health care provider and have any questions regarding this report, please contact the number below. ??For patients who have questions please contact the health home care specialist that requested your imaging first. ? Narrative 04/10/2024 12:28 PM EDT EXAMINATION: MRI ADDITIONAL VIEW - BREAST CLINICAL INDICATION: new breast cancer - repeat imaging. Left breast ILC, ER-positive NC positive and HER-2 negative TECHNIQUE: Multiplanar sequences were obtained pre- and post- Dotarem enhancement, to include SPGR weighted dynamic run-off and subtraction sequences obtained after the intravenous administration of 16 ccs of Dotarem. Computer algorithm analysis for lesion detection and kinetic contrast enhancement curve analysis was performed, using [employer] software. COMPARISON STUDIES: Compared and/or correlated with [...] cancer - repeat imaging. Left breastILC, ER-positive NC positive and HER-2 negative TECHNIQUE: Multiplanar sequences were obtained pre- and post- Dotarem enhancement,to include SPGR weighted dynamic run-off and subtraction sequences obtainedafter the intravenous administration of 16 ccs of Dotarem. Computer algorithmanalysis for lesion detection and kinetic contrast enhancement curve analysis was performed, using [employer] software. COMPARISON STUDIES: Compared and/or correlated with [...] patients who have questions please contactthe health home care specialist that requested your imaging first. Armond Amezcua MD IMG MRI ORDERABLES documented in this encounter Visit Diagnoses Diagnosis Malignant neoplasm of lower-outer quadrant of left breast of female, estrogen receptor positive Malignant neoplasm of lower-outer quadrant of left breast of female, estrogen receptor positive documented in this encounter Care Teams Software Product Specialist Relationship Specialty Start Date End Date Nat Nicolas APRN [address] [place] [address] PCP - General Family Medicine 04/02/24 documented as of this encounter
--- OUTSIDE RECORDS SUMMARY | 2024-06-21 16:14 | XMS_ITS | Encounter Summary ---
Author Organization [facility] [address] Care Team Providers Care Offset Printing Pressmen Name Role Phone Nat Nicolas APRN Primary Care Provider Encounter Details Date Type Department Care Team (Late st Contact Info) Description 04/09/2024 [place] [address] Nat Hess, CHRISTIANO Social History Tobacco Use [...] Progress Notes * Nat Hess MSW - 04/09/2024 2:51 PM EDTSummary: Social Work Consult: Comprehensive Breast Program (CBP) I'm able to meet with Martha to introduce myself as social work associate and review this role within CBP team while she is here today for surgical oncology consultation with Dr. Daily Amaral. She is accompanied in the exam room by her Patel and her daughter Colleen, and presents with stable moodand affect appropriate to situation. She makes eye contact and engages in conversation about her psychosocial health in the context of breast cancer diagnosis and treatment. Martha understands from her conversation with Dr. Amaral that additional imaging is needed before treatment plan is finalized. We review CBP goal of reducing logistical barriers of attending appointments and connecting patients with supports to reduce/cope with stress associated with breast cancerdiagnosis and treatment. Examples given include resources for any issues that may present as barriers to care, such as transportation, financial stress, and emotional distress. Martha agrees to be in touch with care team members as needed. She signs Designation of Personal Slot Machine Floor Person forms for Patel and Colleen, and per their request I send message to Patel at [email or web address] and Colleen at [email or web address] so they can keep in touch as needed. I LM for Martha on 04/14 to see how she is doing after MRI results, encouraging call back at her convenience. Re-assess at future follow up: Review need for financial assistance, need/interest resources for mental health Completed today: Brief assessment Care Coordination Financial resources Nat ???Fide?? LAUREL Hess Social Work, Breast and Gynecology Oncology .[employer] documented in this encounter Plan of Treatment Upcoming Encounters Date Type Department Care Team (Late st Contact Info) Description 07/02/2024 8:00 AM EST Appointment Hematology [place] [address] 07/02/2024 9:00 AM EST Office Visit Hematology [place] [address] Rosalba Patel MD [facility] [place] [address] 07/02/2024 10:30 AM EST Appointment Hematology [place] [address] 07/07/2024 10:30 AM EST TH Visit (TeleHealth) Hematology [place] [address] Hem/Onc, Clinic Pharmacist None 07/17/2024 9:00 AM EST Appointment Hematology [place] [address] 07/17/2024 10:00 AM EST Office Visit Hematology [place] [address] Rosalba Patel MD [facility] [place] [address] 07/17/2024 11:30 AM EST Appointment Hematology [place] [address] 07/30/2024 7:30 AM EST Appointment Hematology [place] [address] 07/30/2024 8:30 AM EST Office Visit [place]ematology [place] [address] Yamileth Nur APRN [facility] [place] [address] 07/30/2024 10:00 AM EST Appointment Hematology [place] [address] 08/13/2024 8:00 AM EST Appointment Hematology [place] [address] 08/13/2024 9:00 AM EST Office Visit [place]ematology [place] [address] Rosalba Patel MD [facility] [place] [address] 08/13/2024 10:30 AM EST Appointment Hematology [place] [address] documented as of this encounter Visit Diagnoses Not on filedocumented in this encounter Care Teams Offset Printing Pressmen Relationship Specialty Start Date End Date Nat Nicolas, FLOOR CARE TECHNICIAN [address] [place] [address] PCP - General Family Medicine 04/02/24 documented as of this encounter
--- OUTSIDE RECORDS SUMMARY | 2024-06-21 16:14 | XMS_ITS | Encounter Summary ---
Author Organization [facility] [place] [address] Care Team Providers Care Borderer Name Role Phone Carl Garvey RUDDY Primary Care Provider Reason for Visit * (Routine) - Pending Review Specialty Diagnoses / Procedures Referred By Laurel garrett Referred To Contact Radiology Diagnoses Mass of left breast, unspecified quadrant Procedures Request for 2nd read Mammo Nat Nicolas, LARD BLEACHER [address] [facility] [place] [address] Referral ID Status Reason Start Date Expiration Date V isits Requested Visits Authorized [id number] Pending Review 03/10/2024 03/10/2025 1 1 Encounter Details Date Type Department Care Team (Late st Contact Info) Description 03/10/2024 7:35 AM EDT Ancillary Procedure Radiology Library at [facility] [place] [address] Nat Nicolas, LARD BLEACHER [address] [facility] [place] [address] Mass of left breast, unspecified quadrant Social History Tobacco Use Types Packs/Day Years [...] EST Appointment Hematology [place] [address] 07/02/2024 9:00 AM EST Office Visit Hematology [place] [address] Rosalba Patel MD [facility] [place] [address] 07/02/2024 10:30 AM EST Appointment Hematology [place] [address] 07/07/2024 10:30 AM EST TH Visit (TeleHealth) Hematology [place] [address] Hem/Onc, Clinic Pharmacist None 07/17/2024 9:00 AM EST Appointment Hematology [place] [address] 07/17/2024 10:00 AM EST Office Visit Hematology [place] [address] Rosalba Patel MD [facility] [place] [address] 07/17/2024 11:30 AM EST Appointment Hematology [place] [address] 07/30/2024 7:30 AM EST Appointment Hematology [place] [address] 07/30/2024 8:30 AM EST Office Visit Hematology [place] [address] Yamileth Nur APRN [facility] [place] [address] 07/30/2024 10:00 AM EST Appointment Hematology [place] [address] 08/13/2024 8:00 AM EST Appointment Hematology [place] [address] 08/13/2024 9:00 AM EST Office Visit Hematology [place] [address] Rosalba Patel MD [facility] [place] [address] 08/13/2024 10:30 AM EST Appointment Hematology [place] [address] documented as of this encounter Procedures Procedure Name Priority Date/Time Associated Diagnosis Comments REQUEST FOR 2ND READ MAMMO Routine 03/10/2024 7:30 AM EDT Mass of left breast, unspecified quadrant documented in this encounter Results * Request for 2nd read Mammo (03/10/2024 7:30 AM EDT) WORKSTATION ID [id number] 1 DH RAD Anatomical Region Laterality Modality SO Narrative 03/10/2024 2:42 PM EDT INTERPRETATION OF OUTSIDE BREAST IMAGING I have been asked to consult on this patient by Dr. Nicolas because he/she believes a review of this study may change or alter the care of this patient. STUDIES FROM: [[facility] CLINICAL HISTORY: ? bx; Sending Institution [facility]; Date of exam [id number]; I believe a reinterpretation of this exam may alter care of Patient. Yes; Left breast mass, nipple retraction, Cat 5. ?? DATES and TYPE OF EXAM: Bilateral screening [...] LEFT BREAST LESION #1 2.5 cm Mass ??Lower Outer Quadrant 3 OClock 4 cm from the nipple INTERPRETATION: BI-RADS 5. Highly suspicious for malignancy MANAGEMENT: Ultrasound-guided biopsy of the LEFT breast mass. I would recommend magnification views are obtained of the area of LEFT breast microcalcifications at the time of biopsy, as depending on future management and staging these may need to be biopsied * ??Regular screening mammograms starting between age 40 and 50 reduces the risk of from breast cancer. * ??All screening tests have both risks and benefits. These risks and benefits should be assessed for each individual patient through discussion with their provider to determine their preferred breast cancer screening schedule. * ??Women should report any breast changes to a health care provider right away. * ??Some women, because of their family history, a genetic tendency, or other factors, should be screened with annual breast MRI as well as with mammograms. (The number of women who fall into this category is very small). Patients and health care providers should discuss each patients history to decide if earlier screening and/or breast MRI are appropriate. * ??Screening should continue as long as a woman is in good health and is expected to live 10 years or longer. * ??Screening mammography may not detect 10-15% of breast cancers. Please note: The interpretation of the [facility] Breast Imaging Radiologist subspecialist may differ from the original radiologists interpretation. This is usually not due to a deficiency of the original interpreting radiologist, rather due to the greater skill level afforded by sub-specialization in the field and/or reasonable variations in interpretations. If you have a concern regarding the D- interpretation you may contact the [facility] Breast Enterprise Engineer Office at . Thank you for letting us participate in the care of this patient. ??If you are a health care provider and have any questions regarding this report, please contact the number below. ??For patients who have questions please contact the health palliative care nurse that requested your imaging first. ? Procedure Note Dorota Anderson MD - 03/10/2024 INTERPRETATION OF OUTSIDE BREAST IMAGING I have been asked to consult on this patient by Dr. Nicolas becausehe/she believes a review of this study may change or alter the care of thispatient. STUDIES FROM: [facility] CLINICAL HISTORY: ? bx; Sending Institution [facility];Date of exam [id number]; I believe a reinterpretation of this exam may alter careof Patient. Yes; Left breast mass, nipple retraction, Cat 5. DATES and TYPE OF EXAM: Bilateral screening mammograms from 03/06/2024nd ultrasound from the same date VIEWS: Bilateral CC, bilateral MLO COMPARISONS: Multiple priors BREAST DENSITY: There are scattered areas of fibroglandular density FINDINGS: RIGHT breast: Normal and unchanged LEFT breast: There is approximately 2.5 cm spiculated mass in the midlateral aspect of the LEFT breast with architectural distortion and nippleretraction. Extending inferior and medial from this mass are a few scattered fine pleomorphic microcalcifications which are likely additional sites ofmalignancy Ultrasound of this mass showed a concordant 2.5 cm hypoechoic shadowing avascular spiculated mass DIAGNOSTIC SUMMARY: LEFT BREAST LESION #1 2.5 cm Mass Lower Outer Quadrant 3 OClock 4 cm from the nipple INTERPRETATION: BI-RADS 5. Highly suspicious for malignancy MANAGEMENT: Ultrasound-guided biopsy of the LEFT breast mass. I would recommend magnification views are obtained of the area of LEFT breastmicrocalcifications at the time of biopsy, as depending on future management and staging thesemay need to be biopsied * Regular screening mammograms starting between age 40 and 50 reduces therisk of from breast cancer. * All screening tests have both risks and benefits. These risks andbenefits should be assessed for each individual patient through discussion withtheir provider to determine their preferred breast cancer screening schedule. * Women should report any breast changes to a health care provider rightaway. * Some women, because of their family history, a genetic tendency, orother factors, should be screened with annual breast MRI as well as withmammograms. (The number of women who fall into this category is very small). Patientsand health care providers should discuss each patients history to decide ifearlier screening and/or breast MRI are appropriate. * Screening should continue as long as a woman is in good health and is expected to live 10 years or longer. * Screening mammography may not detect 10-15% of breast cancers. Please note: The interpretation of the [facility] BreastImaging Radiologist subspecialist may differ from the original radiologists interpretation. This is usually not due to a deficiency of the original interpreting radiologist, rather due to the greater skill level affordedby sub-specialization in the field and/or reasonable variations ininterpretations. If you have a concern regarding the D-H interpretation you may contact the[facility] Breast Enterprise Engineer Office at . Thank you for letting us participate in the care of this patient. If youare a health care provider and have any questions regarding this report,please contact the number below. For patients who have questions please contactthe health palliative care nurse that requested your imaging first. Nat Nicolas APRN IMG OUTSIDE IN TERPRETATION ORDERABLES documented in this encounter Visit Diagnoses Diagnosis Mass of left breast, unspecified quadrant documented in this encounter Care Teams Borderer Relationship Specialty Start Date End Date Carl Garvey DNP [address] [place] [address] PCP - General Family Medicine 05/03/20 04/01/24 documented as of this encounter
--- OUTSIDE RECORDS SUMMARY | 2024-06-21 16:14 | XMS_ITS | Encounter Summary ---
[place] [address] Care Team Providers Care Senior Network Security Architect Name Role Phone Nat Nicolas APRN Primary Care Provider Reason for Visit * Diagnostic Test (Routine) - Closed Specialty Diagnoses / Procedures Referred By Laurel garrett Referred To Contact Radiology Diagnoses Malignant neoplasm of lower-outer quadrant of left breast of female, estrogen receptor positive Procedures MRI Additional Views - Breast Armond Amezcua MD [facility] [place] [address] [facility] [place] [address] Referral ID Status Reason Start Date Expiration Date V isits Requested Visits Authorized [id number] Closed Specialty Service Requested 04/08/2024 10/06/2025 1 1 Encounter Details Date Type Department Care Team (Latest Contact Info) Description 04/09/2024 12:13 PM EDT - 04/09/2024 11:59 PM EDT Hospital [place] [address] Armond Amezcua MD [facility] [place] [address] Discharge Disposition: Home Social History [...] AM EST Appointment Hematology [place] [address] 07/02/2024 9:00 AM EST Office Visit Hematology [place] [address] Rosalba Patel MD [facility] [place] [address] 07/02/2024 10:30 AM EST Appointment Hematology and Oncology at [place] [phone] 07/07/2024 10:30 AM EST TH Visit (TeleHealth) Hematology and Oncology at [place] [phone] Hem/Onc, Clinic Pharmacist None 07/17/2024 9:00 AM EST Appointment Hematology [place] [address] 07/17/2024 10:00 AM EST Office Visit Hematology and Oncology at [place] [phone] Rosalba Patel MD [facility] [place] [address] 07/17/2024 11:30 AM EST Appointment Hematology [place] [address] 07/30/2024 7:30 AM EST Appointment Hematology [place] [address] 07/30/2024 8:30 AM EST Office Visit Hematology [place] [address] Yamileth Nur APRN [facility] [place] [address] 07/30/2024 10:00 AM EST Appointment Hematology [place] [address] 08/13/2024 8:00 AM EST Appointment Hematology [place] [address] 08/13/2024 9:00 AM EST Office Visit Hematology [place] [address] Rosalba Patel MD [facility] [place] [address] 08/13/2024 10:30 AM EST Appointment Hematology [place] [address] documented as of this encounter Procedures Procedure Name Priority Date/Time Associated Diagnosis Comments MRI ADDITIONAL VIEW - BREAST Routine 04/09/2024 2:20 PM EDT Malignant neoplasm of lower-outer quadrant of left breast of female, estrogen receptor positive documented in this encounter Visit Diagnoses Not on filedocumented in this encounter Administered Medications Inactive Administered Medications - up to 3 most recent administrations Medication Order MAR Action Action Date Dose Rate Site gadoterate meglumine (Dotarem) (0.5 mMol/mL) injection solution 0-100 mL 0-100 mL, Intravenous, ONCE PRN, 1 dose, Starting on Sun04/09/24 at 1453, Until Sun04/09/24 at 1400, Per Protocol, Radiology Contrast, Routine Given 04/09/2024 2:00 PM EDT 16 mLs documented in this encounter Care Teams Senior Network Security Architect Relationship Specialty Start Date End Date Nat Nicolas APRN [address] [place] [address] PCP - General Family Medicine 04/02/24 documented as of this encounter
--- OUTSIDE RECORDS SUMMARY | 2024-06-21 16:14 | XMS_ITS | Encounter Summary ---
Author Organization [facility] [place] [address] Care Team Providers Care Finish Carpenter Name Role Phone Zac Nicolascarlos Malloy APRN Primary Care Provider Encounter Details Date Type Department Care Team (Latest Contact Info) Description 04/02/2024 8:28 AM EDT - 04/02/2024 11:59 PM EDT Hospital [place] [phone] Dorota Anderson MD [facility] [place] [address] Abnormal finding on breast imaging Discharge Disposition: [...] AM EST Appointment Hematology [place] [address] 07/02/2024 9:00 AM EST Office Visit [place]ematology [place] [address] Rosalba Patel MD [facility] [place] [address] 07/02/2024 10:30 AM EST Appointment Hematology [place] [address] 07/07/2024 10:30 AM EST TH Visit (TeleHealth) [place]ology [place] [address] Hem/Onc, Clinic Pharmacist None 07/17/2024 9:00 AM EST Appointment Hematology [place] [address] 07/17/2024 10:00 AM EST Office Visit Hematology [place] [address] Rosalba Patel MD [facility] [place] [address] 07/17/2024 11:30 AM EST Appointment Hematology [place] [address] 07/30/2024 7:30 AM EST Appointment Hematology [place] [address] 07/30/2024 8:30 AM EST Office Visit [place]ematology [place] [address] Yamileth Nur APRN [facility] [place] [address] 07/30/2024 10:00 AM EST Appointment H[place]ology [place] [address] 08/13/2024 8:00 AM EST Appointment Hematology [place] [address] 08/13/2024 9:00 AM EST Office Visit [place]ematology [place] [address] Rosalba Patel MD [facility] [place] [address] 08/13/2024 10:30 AM EST Appointment Hematology [place] [address] documented as of this encounter Procedures Procedure Name Priority Date/Time Associated Diagnosis Comments MAMMO DIAGNOSTIC WITHOUT CAD LEFT Routine 04/02/2024 9:25 AM EDT Abnormal finding on breast imaging documented in this encounter Results * Mammo Diagnostic Without Cad Left (04/02/2024 9:25 AM EDT) WORKSTATION ID [id number] 1 RAD [...] who have questions please contact the health career development coordinator/teacher that requested your imaging first. ? Electronically signed by: Dorota Anderson MD, [facility] ([phone]), at 04/02/2024 2:48 PM [facility] [place] [address] [place] ??[id number] Dorota Anderson MD IMG MAMMO ORDERABLES documented in this encounter Visit Diagnoses Diagnosis Abnormal finding on breast imaging Other (abnormal) findings on radiological examination of breast documented in this encounter Care Teams Finish Carpenter Relationship Specialty Start Date End Date Nat Nicolas APRN [address] [place] [address] PCP - General Family Medicine 04/02/24 documented as of this encounter
--- OUTSIDE RECORDS SUMMARY | 2024-06-21 16:14 | XMS_ITS | Encounter Summary ---
Author Organization [facility] [place] [address] Care Team Providers Care Laborer Electroplating Name Role Phone Carl Garvey DNP Primary Care Provider Encounter Details Date Type Department Care Team (Late Contact Info) Description 03/06/2024 Interpretation Only Radiology Library at [facility] [place] [address] Maricruz Dumont RN Social History Tobacco Use [...] AM EST Appointment Hematology [place] [address] 07/02/2024 9:00 AM EST Office Visit Hematology [place] [address] Rosalba Patel MD [facility] [place] [address] 07/02/2024 10:30 AM EST Appointment Hematology [place] [address] 07/07/2024 10:30 AM EST TH Visit (TeleHealth) Hematology and Oncology at [place] [phone] Hem/Onc, Clinic Pharmacist None 07/17/2024 9:00 AM EST Appointment Hematology [place] [address] 07/17/2024 10:00 AM EST Office Visit Hematology [place] [address] Rosalba Patel MD [facility] [place] [address] 07/17/2024 11:30 AM EST Appointment Hematology [place] [address] 07/30/2024 7:30 AM EST Appointment Hematology [place] [address] 07/30/2024 8:30 AM EST Office Visit Hematology [place] [address] Yamileth Nur APRN [facility] [place] [address] 07/30/2024 10:00 AM EST Appointment Hematology [place] [address] 08/13/2024 8:00 AM EST Appointment Hematology [place] [address] 08/13/2024 9:00 AM EST Office Visit Hematology [place] [address] Rosalba Patel MD [facility] [place] [address] 08/13/2024 10:30 AM EST Appointment Hematology [place] [address] documented as of this encounter Procedures Procedure Name Priority Date/Time Associated Diagnosis Comments FILM LIBRARY STORAGE ONLY ULTRASOUND STUDY Routine 03/06/2024 1:50 PM EDT documented in this encounter Results * Film Library- Storage Only Ultrasound Study (03/06/2024 1:50 PM EDT) 03/10/2024 7:15 AM EDT Narrative [facility] - 03/10/2024 7:15 AM EDT This exam is auto-finalizing. It's purpose is for storage only. Maricruz Dumont RN IMG FILM LIBRARY ORD ERABLES [place], [place] documented in this encounter Visit Diagnoses Not on filedocumented in this encounter Care Teams Laborer Electroplating Relationship Specialty Start Date End Date Carl Garvey DNP [address] [place] [address] PCP - General Family Medicine 05/03/20 04/01/24 documented as of this encounter
--- OUTSIDE RECORDS SUMMARY | 2024-06-21 16:14 | XMS_ITS | Encounter Summary ---
Author Organization [facility] [place] [address] Care Team Providers Care Puzzle Assembler Name Role Phone Nat Nicolas APRN Primary Care Provider Reason for Referral * Diagnostic Test (Routine) - Closed Specialty Diagnoses / Procedures Referred By Contac t Referred To Contact Radiology Diagnoses Malignant neoplasm of lower-outer quadrant of left breast of female, estrogen receptor positive Procedures MRI Additional Views - Breast Armond Amezcua MD [facility] [place] [address] [place] [address] Referral ID Status Reason Start Date Expiration Date V isits Requested Visits Authorized [id number] Closed Specialty Service Requested 04/08/2024 10/06/2025 1 1 Reason for Visit * Diagnostic Test (Routine) - Closed Specialty Diagnoses / Procedures Referred By Contgiuliana t Referred To Contact Radiology Diagnoses Malignant neoplasm of lower-outer quadrant of left breast of female, estrogen receptor positive Procedures MRI Additional Views - Breast Armond Amezcua MD [facility] [place] [address] [place] [address] Referral ID Status Reason Start Date Expiration Date V isits Requested Visits Authorized [id number] Closed Specialty Service Requested 04/08/2024 10/06/2025 1 1 Encounter Details Date Type Department Care Team (Latest Contact Info) Description 04/09/2024 12:13 PM EDT - 04/09/2024 11:59 PM EDT Hospital Encounter MRI at [facility] [place] [phone] Armond Amezcua MD [facility] [place] [address] Malignant neoplasm of lower-outer quadrant of left [...] as of this encounter Discharge Instructions * Discharge Instructions* Rae Amezcua, RN - 04/09/2024 12:38 PM EDT [facility] Department of Radiology MRI Nursing Martha Rodriguez 1965 [id number] April 09, 2024 You have received oral sedation medication for your MRI to help with claustrophobia and anxiety. This medication affects your judgement and reaction time. 1. Do not drive, operate machinery, drink alcoholic beverages, or make important decisions for 24 hours. 2. Be careful on stairs, as you may be unsteady on your feet. 3. You may eat a regular diet as tolerated. 4. If you smoke, do not smoke if you are alone. Call with any questions or concerns: During regular office hours call: [phone]. If it is afterregular office hours, weekends or holidays, please call [phone] and ask to speak to the Wardrobe Specialist neon technician for Interventional Radiology. Updated 12/09/21 documented in this encounter Medications at Time [...] as of this encounter Progress Notes * Rae Amezcua RN - 04/09/2024 12:47 PM EDT MRI PRE-SEDATION ASSESSMENT NOTE NAME: Martha Rodriguez AGE: 59 y.o. : [address] [place] [id number] Female [phone] (home) Telephone Information: Nat Nicolas APRN None Allergies Allergen Reactions Sulfa (Sulfonamide Antibiotics) Rash Date/Time of call: April 08, 2024/3:59 PM/ SCHEDULED SCAN: MRI ADDITIONAL VIEW - BREAST [[id number]] HEIGHT: 5'4 WEIGHT: 185lb Have you had a PREVIOUS MRI SCAN? Yes Are you claustrophobic or anxious in the scanner? Yes CAN YOU LAY FLAT? Yes Do you have trouble breathing when lying flat? No DO YOU HAVE ANY INVOLUNTARY MOVEMENTS? No (explain) DO YOU TAKE PAIN MEDICATION ON A DAILY BASIS? No (explain) PLAN: Ativan (unless MRI previously tolerated with Valium) You must have a otr driver present when you check in. This patient has been informed that they require a otr driver to drive them home after this procedure. In the absence of a otr driver, IR will not be able tosedate for your scan. Pt verbalized understanding of these instructions during the pre-procedure education via phone. Yes Name of otr driver: Phone number: PRIOR SCAN DATE/S SEDATION TYPE SUCCESSFUL 04/08/24 MRI Breast Bilateral wwo none yes 04/09/24 MRI Breast Ativan 1 mg x 2 PO Yes Revised 01/16/2023 documented in this encounter Plan of Treatment Upcoming Encounters Date Type Department Care Team (Late st Contact Info) Description 07/02/2024 8:00 AM EST Appointment Hematology [place] [address] 07/02/2024 9:00 AM EST Office Visit Hematology [place] [address] Rosalba Patel MD [facility] [place] [address] 07/02/2024 10:30 AM EST Appointment Hematology [place] [address] 07/07/2024 10:30 AM EST TH Visit (TeleHealth) Hematology [place] [address] Hem/Onc, Clinic Pharmacist None 07/17/2024 9:00 AM EST Appointment Hematology [place] [address] 07/17/2024 10:00 AM EST Office Visit Hematology and Oncology at [place] [phone] Rosalba Patel MD [facility] [place] [address] 07/17/2024 11:30 AM EST Appointment Hematology and Oncology at [place] [phone] 07/30/2024 7:30 AM EST Appointment Hematology [place] [address] 07/30/2024 8:30 AM EST Office Visit Hematology [place] [address] Yamileth Nur APRN [facility] [place] [address] 07/30/2024 10:00 AM EST Appointment Hematology and Oncology at [place] [phone] 08/13/2024 8:00 AM EST Appointment Hematology [place] [address] 08/13/2024 9:00 AM EST Office Visit Hematology [place] [address] Rosalba Patel MD [facility] [place] [address] 08/13/2024 10:30 AM EST Appointment Hematology [place] [address] documented as of this encounter Procedures Procedure Name Priority Date/Time Associated Diagnosis Comments MRI ADDITIONAL VIEW - BREAST Routine 04/09/2024 2:20 PM EDT Malignant neoplasm of lower-outer quadrant of left breast of female, estrogen receptor positive documented in this encounter Results * MRI Additional Views - Breast (04/09/2024 2:20 PM EDT) WORKSTATION ID [id number] 1 DH RAD Anatomical Region Laterality Modality Breast Magnetic [...] have questions please contact the health care trainer that requested your imaging first. ? Narrative 04/10/2024 12:28 PM EDT EXAMINATION: MRI ADDITIONAL VIEW - BREAST CLINICAL INDICATION: new breast cancer - repeat imaging. Left breast ILC, ER-positive CO positive and HER-2 negative TECHNIQUE: Multiplanar sequences were obtained pre- and post- Dotarem enhancement, to include SPGR weighted dynamic run-off and subtraction sequences obtained after the intravenous administration of 16 ccs of Dotarem. Computer algorithm analysis for lesion detection and kinetic contrast enhancement curve analysis was performed, using Winmedical software. COMPARISON STUDIES: Compared and/or correlated with [...] cancer - repeat imaging. Left breastILC, ER-positive CO positive and HER-2 negative TECHNIQUE: Multiplanar sequences were obtained pre- and post- Dotarem enhancement,to include SPGR weighted dynamic run-off and subtraction sequences obtainedafter the intravenous administration of 16 ccs of Dotarem. Computer algorithmanalysis for lesion detection and kinetic contrast enhancement curve analysis was performed, using Winmedical software. COMPARISON STUDIES: Compared and/or correlated with [...] who have questions please contactthe health care trainer that requested your imaging first. Armond Amezcua MD IMG MRI ORDERABLES documented in this encounter Visit Diagnoses Diagnosis Malignant neoplasm of lower-outer quadrant of left breast of female, estrogen receptor positive documented in this encounter Administered Medications Inactive Administered Medications - up to 3 most recent administrations Medication Order MAR Action Action Date Dose Rate Site LORazepam (Ativan) tablet 1 mg 1 mg, Oral, EVERY 30 MIN PRN, 2 doses, Starting on Sun04/09/24 at 1232, Until Sun04/09/24 at 1316, Anxiety, Minimal Sedation per Department of Radiology Adult Minimal Sedation Guidelines: Give 50 minutes prior to scan., Routine Given 04/09/2024 1:16 PM EDT 1 mg Given 04/09/2024 12:41 PM EDT 1 mg documented in this encounter Care Teams Puzzle Assembler Relationship Specialty Start Date End Date Nat Nicolas, [address] [place] [address] PCP - General Family Medicine 04/02/24 documented as of this encounter
--- OUTSIDE RECORDS SUMMARY | 2024-06-21 16:14 | XMS_ITS | Encounter Summary ---
[place] [address] Care Team Providers Care Euclid Operator Name Role Phone Carl Garvey RUDDY Primary Care Provider [phone] Encounter Details Date Type Department Care Team (Late st Contact Info) Description 03/07/2024 Notes Only Hematology [place] [address] Ebony Becerril Social History Tobacco Use Types [...] encounter Progress Notes * Ebony Becerril - 03/07/2024 10:23 AM EDT Martha Rodriguez 1965 [id number] Referring provider: Nat Nicolas APRN Date of Referral: 03.07.2024 Please review outside breast imaging dated: 03.06.2024 Reason for exam and clinical history: Left breast mass, nipple retraction Category: 5 Questions to be answered: ? BX Sending Institution: [place] Patient would like treatment at: Call pt at: Mobile Not on file. documented in this encounter Plan of Treatment Upcoming Encounters Date Type Department Care Team (Late st Contact Info) Description 07/02/2024 8:00 AM EST Appointment Hematology [place] [address] 07/02/2024 9:00 AM EST Office Visit Hematology [place] [address] Rosalba Patel MD [facility] [place] [address] 07/02/2024 10:30 AM EST Appointment Hematology [place] [address] 07/07/2024 10:30 AM EST TH Visit (TeleHealth) Hematology [place] [address] Hem/Onc, Clinic Pharmacist None 07/17/2024 9:00 AM EST Appointment Hematology [place] [address] 07/17/2024 10:00 AM EST Office Visit Hematology [place] [phone] Rosalba Patel MD [facility] [place] [address] 07/17/2024 11:30 AM EST Appointment Hematology [place] [address] 07/30/2024 7:30 AM EST Appointment Hematology [place] [address] 07/30/2024 8:30 AM EST Office Visit Hematology [place] [address] Yamileth Nur APRN [facility] [place] [address] 07/30/2024 10:00 AM EST Appointment Hematology [place] [address] 08/13/2024 8:00 AM EST Appointment Hematology [place] [address] 08/13/2024 9:00 AM EST Office Visit [place]ematology [place] [address] Rosalba Patel MD [facility] [place] [address] 08/13/2024 10:30 AM EST Appointment Hematology [place] [address] documented as of this encounter Visit Diagnoses Not on filedocumented in this encounter Care Teams Euclid Operator Relationship Specialty Start Date End Date Carl Garvey DNP [address] [place] [address] PCP - General Family Medicine 05/03/20 04/01/24 documented as of this encounter
--- OUTSIDE RECORDS SUMMARY | 2024-06-21 16:14 | XMS_ITS | Encounter Summary ---
Author Organization [facility] Address [facility] [place] [address] Care Team Providers Care Quality Control Director Name Role Phone Carl Garvey DNP Primary Care Provider Reason for Visit * Reason Comments Urinary Frequency ? UTI or yeast Encounter Details Date Type Department Care Team (Late st Contact Info) Description 02/07/2022 7:58 AM EDT - 02/07/2022 10:15 AM EDT Emergency Emergency Services at [facility] [address] [facility] [place] [phone] Carter Murphy MD [facility] [place] [address] Hyperglycemia; Hypertension, unspecified type; Vaginal pain Discharge [...] prescribed. Your prescriptions have been sent to [facility] in [place]. Please pick them up today and start taking as prescribed. If you experience any new or worsening symptoms including difficulty breathing, chest pain, fever, chills, confusion, loss of vision, numbness, weakness or any other concerning symptoms please seek medical care immediately. documented in this encounter Medications at Time of Discharge Medication Sig Dispensed Refills Start Date End Date metFORMIN (FORTAMET) 500 mg Tablet Extended Rel [...] needed for Dizziness. 30 tablet 0 08/03/2013 fluconazole (Diflucan) 150 mg Tablet Take 1 [...] She was seen one week ago at [facility] and was told she had a [...] AM EST Appointment [place]ology [place] [address] 07/02/2024 9:00 AM EST Office Visit [place] [address] Rosalba Patel MD [facility] [place] [address] 07/02/2024 10:30 AM EST Appointment [place] [address] 07/07/2024 10:30 AM EST TH Visit (TeleHealth) [place] [address] Hem/Onc, Clinic Pharmacist None 07/17/2024 9:00 AM EST Appointment [place] [address] 07/17/2024 10:00 AM EST Office Visit [place] [address] Rosalba Patel MD [facility] [place] [address] 07/17/2024 11:30 AM EST Appointment [place] [address] 07/30/2024 7:30 AM EST Appointment [place] [address] 07/30/2024 8:30 AM EST Office Visit [place] [address] Yamileth Nur APRN [facility] [place] [address] 07/30/2024 10:00 AM EST Appointment [place] [address] 08/13/2024 8:00 AM EST Appointment [place] [address] 08/13/2024 9:00 AM EST Office Visit [place] [address] Rosalba Patel MD [facility] [place] [address] 08/13/2024 10:30 AM EST Appointment [place] [address] documented as of this encounter Procedures Procedure [...] AM EDT) Yeast Culture Rare Kaye albicans(A) [facility] Organism Kaye albicans(A) [facility] Vaginal 02/07/2022 8:27 AM EDT 02/07/2022 11:58 AM EDT Narrative Resulting Agency Comment Spec In Lab Carter Murphy MD MICROBIOLOGY - GENER AL ORDERABLES Performing Organization Address [facility]/ZIP Co de Phone Number [facility] [place] [address] * (ABNORMAL) POCT Glucose (02/07/2022 8:23 AM EDT) Glucose, POC 428(H) 65 - 199 mg/dL LABORATORY Comment: Supplemental ranges: <140 mg/dL before meals <180 mg/dL all other times of the day Blood 02/07/2022 8:23 AM EDT 02/07/2022 8:23 AM EDT Carter Murphy MD POINT OF CARE TEST O RDERABLES Performing Organization Address City/[facility]/ZIP Co de Phone Number LABORATORY [address] [place] [address] * (ABNORMAL) Urinalysis Microscopic Exam (02/07/2022 7:58 AM EDT) RBC, Urine 6(H) 0 - 4 /HPF [facility] WBC, Urine 2 0 - 5 /HPF [facility] Bacteria, Urine Few(A) None /HPF [facility] Budding Yeast, Urine Few(A) None /HPF [facility] Squamous Epithelial Cells Raw Data, Urine 4 <=4 /HPF [facility] Transitional Epithelial Cells, Urine <1 <=1 /HPF LABORATORY Clean Catch Urine 02/07/2022 7:58 AM EDT 02/07/2022 8:15 AM EDT Narrative Resulting Agency Comment Spec In Lab Krysten Frey MD URINE ORDERABLES LABORATORY [address] [place] [address] * (ABNORMAL) Urinalysis with reflex Culture (02/07/2022 7:58 AM EDT) Glucose, Urine Dipstick >=500(Critic al) Negative mg/dL LABORATORY Comment: Urinalysis result NOT critical without a combination of Glucose greater than or equal to 500mg/dl AND Ketones greater than or equal to 80mg/dl. 02/07/22 08:18 KJW Protein, Urine Dipstick Negative Negative LABORATORY Bilirubin, Urine Dipstick Negative Negative LABORATORY Comment: Clinical correlation required for positive Urine Bilirubin results as false positive may occur with some drugs and drug related products. If a false positive is suspected a serum total bilirubin should be considered if clinically indicated. Urobilinogen, Urine Dipstick Normal Normal mg/dL LABORATORY pH, Urn (dipstick) 5.0 5.0 - 8.0 LABORATORY Blood, Urine Dipstick Trace(A) Negative LABORATORY Ketone, Urine Dipstick Negative Negative LABORATORY Nitrite, Urine Dipstick Negative Negative LABORATORY Leukocytes, Urine Dipstick Negative Negative LABORATORY Appearance, Urine Dipstick Clear Clear LABORATORY Specific [place] Urine Automated 1.010 1.006 - 1.030 LABORATORY Color, Urine Dipstick Yellow Yellow LABORATORY Reflex to Culture No LABORATORY Clean Catch Urine 02/07/2022 7:58 AM EDT 02/07/2022 8:15 AM EDT Narrative Resulting Agency Comment Spec In Lab Carter Murphy MD URINE ORDERABLES [facility] [address] [place] [address] documented in this encounter Visit Diagnoses Diagnosis [...] RN) documented in this encounter Care Teams Quality Control Director Relationship Specialty Start Date End Date Carl Garvey DNP [facility] [address] [place] [address] PCP - General Family Medicine 05/03/20 04/01/24 documented as of this encounter
--- OUTSIDE RECORDS SUMMARY | 2024-06-21 16:14 | XMS_ITS | Encounter Summary ---
[place] [address] Care Team Providers Care Felt Cutting Machine Operator Name Role Phone Maria Isabel Nat Malloy APRN Primary Care Provider Encounter Details Date Type Department Care Team (Late st Contact Info) Description 04/07/2024 Patient Outreach Hematology [place] [address] Genna Arvizu, RN Social History Tobacco Use [...] Progress Notes * Genna Arvizu, RN - 04/07/2024 4:34 PM EDT Cancer Center Nurse Navigation Patient Care Plan for the Comprehensive Breast Program (CBP) Date of call: 04/07 Reason for call: contacted Martha Rodriguez via phone to assess for nurse navigation services after Dr.'s Anderson and Jameel, [facility] [place], informed her that her breast biopsy results indicated she has breast cancer, and to introduce her to the CBP. Martha Rodriguez is a 59 y.o. female with newly diagnosed ER/[place]+/Her-2 pending left breast invasive lobular carcinoma (left breast biopsy [place]02/2024 at [facility] Martha sounds positive, though a bit teary, and has support. Her and daughter will accompany to appointments. She appears to be coping ok but is anxious to meet with a breast surgeon to determine a treatment plan. 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 She states they are sending her [employer] paperwork for completion via mail and she will try to bring this with her on 04/09. She was with 2 of her grandchildren as we spoke and states they live with she and her . We reviewed that Dr. Amaral will discuss surgical options (partial mastectomy or mastectomy) withher on 04/09 and she will meet with a breast medical oncologist after surgery to discuss systemic treatment options (may include endocrine therapy) after surgery. Menopausal status: Postmenopausal Jack is active. Plan: Appointments for breast MRI and consultation with a breast surgeon have been scheduled. She was introduced to the CBP and told she would receive information about her diagnosis and treatment for her review (the Breast Cancer Treatment Handbook). Plan to meet with Martha on the day of her surgical oncology consultation. She understands that Fide Hess, [place], [facility], our web content & social media manager, and I are available to her for support/concerns. Addressed her questions and encouraged her to contact me with any additional questions or concerns.She has our contact information. FAMILY HISTORY Ovarian Cancer: Mother (believes it was ovarian cancer) in her 70's who of same (no treatment was offered at time of dx) Sister, Joyce, at age 59 or 60 (4 years ago) who underwent surgery, chemotherapy and radiation. She is now 64. Martha states she underwent genetic testing about 4-5 years ago. [facility] She states they tested her for BRCA genes and these were negative. Her sister (Joyce) tested positive. Laterality:Left Is this a recurrence:No Family history of breast cancer:No Family history of ovarian cancer: Yes Personal history or breast cancer:No Method of detection: Patient detected Method of diagnosis: Ultrasound Core Biopsy Identified Barriers: Patient comments or concerns: She has no concerns regarding insurance, finances or transportation at this time. States her insurance has been pretty good covering claims for her (Federal BC/BS). documented in this encounter Plan of Treatment Upcoming Encounters Date Type Department Care Team (Late st Contact Info) Description 07/02/2024 8:00 AM EST Appointment Hematology [place] [address] 07/02/2024 9:00 AM EST Office Visit Hematology [place] [address] Rosalba Patel MD [facility] [place] [address] 07/02/2024 10:30 AM EST Appointment Hematology [place] [address] 07/07/2024 10:30 AM EST TH Visit (TeleHealth) Hematology [place] [address] Hem/Onc, Clinic Pharmacist None 07/17/2024 9:00 AM EST Appointment Hematology [place] [address] 07/17/2024 10:00 AM EST Office Visit Hematology [place] [address] Rosalba Patel MD [facility] [place] [address] 07/17/2024 11:30 AM EST Appointment Hematology [place] [address] 07/30/2024 7:30 AM EST Appointment Hematology [place] [address] 07/30/2024 8:30 AM EST Office Visit Hematology and Oncology at [place] [phone] Yamileth Nur APRN [facility] [place] [address] 07/30/2024 10:00 AM EST Appointment Hematology [place] [address] 08/13/2024 8:00 AM EST Appointment Hematology [place] [address] 08/13/2024 9:00 AM EST Office Visit Hematology [place] [address] Rosalba Patel MD [facility] [place] [address] 08/13/2024 10:30 AM EST Appointment Hematology and Oncology at [place] [phone] documented as of this encounter Visit Diagnoses Not on filedocumented in this encounter Care Teams Felt Cutting Machine Operator Relationship Specialty Start Date End Date Nat Nicolas APRN [address] [place] [address] PCP - General Family Medicine 04/02/24 documented as of this encounter
--- OUTSIDE RECORDS SUMMARY | 2024-06-21 16:14 | XMS_ITS | Encounter Summary ---
Author Organization [facility] [place] [address] Care Team Providers Care Slater Apprentice Name Role Phone Carl Garvey DNP Primary Care Provider Encounter Details Date Type Department Care Team (Late Contact Info) Description 02/08/2021 12:05 AM EDT Ancillary Procedure Radiology Library [place] [facility] [place] [phone] Nat Nicolas, SEAM RUBBER [address] [place] [address] Social History Tobacco Use Types Packs/Day Years [...] AM EST Appointment [place] [address]-1000 07/02/2024 9:00 AM EST Office Visit [place]ematology [place] [phone] Rosalba Patel MD [facility] MEDICAL ONCOLOGY [place], [place] [phone] 07/02/2024 10:30 AM EST Appointment [place]ematology [place] [address] 07/07/2024 10:30 AM EST TH Visit (TeleHealth) [place] [address] Hem/Onc, Clinic Pharmacist None 07/17/2024 9:00 AM EST Appointment [place] [address] 07/17/2024 10:00 AM EST Office Visit [place]ematology [place] [address] Rosalba Patel MD [facility] [place] [address] 07/17/2024 11:30 AM EST Appointment [place] [address] 07/30/2024 7:30 AM EST Appointment [place]ology [place] [address] 07/30/2024 8:30 AM EST Office Visit [place]ology [place] [address] Yamileth Nur APRN [facility] [place] [address] 07/30/2024 10:00 AM EST Appointment [place]ology [place] [address] 08/13/2024 8:00 AM EST Appointment [place] [address] 08/13/2024 9:00 AM EST Office Visit [place]ematology [place] [address] Rosalba Patel MD [facility] [place] [address] 08/13/2024 10:30 AM EST Appointment [place]ology [place] [address] documented as of this encounter Procedures Procedure Name Priority Date/Time Associated Diagnosis Comments FILM LIBRARY-STORAGE ONLY US BREAST Routine 02/08/2021 12:05 AM EDT documented in this encounter Results * Film Library Storage Only US Breast (02/08/2021 12:05 AM EDT) Narrative [facility] - 03/10/2024 7:23 AM EDT This exam is auto-finalizing. It's purpose is for storage only. Nat Nicolas SEAM RUBBER IMG FILM LAKSHMI RY ORDERABLES Performing Organization Address City/State/[facility] Co de Phone Number [place], [place] documented in this encounter Visit Diagnoses Not on filedocumented in this encounter Care Teams Slater Apprentice Relationship Specialty Start Date End Date Carl Garvey DNP [facility] [address] [place] [address] PCP - General Family Medicine 05/03/20 04/01/24 documented as of this encounter
--- OUTSIDE RECORDS SUMMARY | 2024-06-21 16:14 | XMS_ITS | Encounter Summary ---
Author Organization [facility] [place] [address] Care Team Providers Care Preparer Name Role Phone Carl Garvey DNP Primary Care Provider +1 [phone] Encounter Details Date Type Department Care Team (Late Contact Info) Description 07/15/2023 10:35 AM EST Ancillary Procedure Radiology Library at [facility] [place] [address] Romulo Kamara MD [facility] [place] [address] Social History Tobacco Use Types Packs/Day Years [...] AM EST Appointment Hematology [place] [phone] 07/02/2024 9:00 AM EST Office Visit [place]ematology [place] [phone] Rosalba Patel MD [facility] [place] [address] 07/02/2024 10:30 AM EST Appointment Hematology [place] [address] 07/07/2024 10:30 AM EST TH Visit (TeleHealth) [place] [address] Hem/Onc, Clinic Pharmacist None 07/17/2024 9:00 AM EST Appointment Hematology [place] [address] 07/17/2024 10:00 AM EST Office Visit [place]ematology [place] [address] Rosalba Patel MD [facility] [place] [address] 07/17/2024 11:30 AM EST Appointment H[place]ology [place] [address] 07/30/2024 7:30 AM EST Appointment Hematology [place] [address] 07/30/2024 8:30 AM EST Office Visit [place]ematology [place] [address] Yamileth Nur APRN [facility] [place] [address] 07/30/2024 10:00 AM EST Appointment [place]ology [place] [address] 08/13/2024 8:00 AM EST Appointment H[place] [address] 08/13/2024 9:00 AM EST Office Visit [place]ematology [place] [address] Rosalba Patel MD [facility] [place] [address] 08/13/2024 10:30 AM EST Appointment Hematology and Oncology at [facility] [place] [phone] documented as of this encounter Procedures Procedure Name Priority Date/Time Associated Diagnosis Comments FILM LIBRARY - STORAGE ONLY CT NECK Routine 07/15/2023 10:33 AM EST documented in this encounter Results * Film Library- Storage Only CT Neck (07/15/2023 10:33 AM EST) Narrative [facility] - 07/15/2023 10:33 AM EST This exam is auto-finalizing. It's purpose is for storage only. Romulo Kamara MD IM FILM LIBRARY ORD ERABLES Performing Organization Address City/State/[facility] Co de Phone Number [place], [place] documented in this encounter Visit Diagnoses Not on filedocumented in this encounter Care Teams Preparer Relationship Specialty Start Date End Date Carl Garvey DNP [address] [place] [address] PCP - General Family Medicine 05/03/20 04/01/24 documented as of this encounter
--- OUTSIDE RECORDS SUMMARY | 2024-06-21 16:14 | XMS_ITS | Encounter Summary ---
[place] [address] Care Team Providers Care Aircraft Riveter Name Role Phone Nat Nicolas APRN Primary Care Provider Reason for Referral * Diagnostic Test (Routine) - Closed Specialty Diagnoses / Procedures Referred By Laurel garrett Referred To Contact Radiology Diagnoses Malignant neoplasm of left breast in female, estrogen receptor positive, unspecified site of breast Procedures MRI Breast wwo Contrast Bilat Daily Amaral MD [facility] [place] [address] [place] [address] Referral ID Status Reason Start Date Expiration Date V isits Requested Visits Authorized [id number] Closed Specialty Service Requested 04/04/2024 10/02/2025 1 1 Encounter Details Date Type Department Care Team (Late st Contact Info) Description 04/04/2024 Orders [place] [address] Daily Amaral MD [facility] [place] [address] Malignant neoplasm of left breast [...] AM EST Appointment [place] [address] 07/02/2024 9:00 AM EST Office Visit [place] [address] Rosalba Patel MD [facility] [place] [address] 07/02/2024 10:30 AM EST Appointment [place] [address] 07/07/2024 10:30 AM EST TH Visit (TeleHealth) [place] [address] Hem/Onc, Clinic Pharmacist None 07/17/2024 9:00 AM EST Appointment [place] [address] 07/17/2024 10:00 AM EST Office Visit [place] [address] Rosalba Patel MD [facility] [place] [address] 07/17/2024 11:30 AM EST Appointment [place] [address] 07/30/2024 7:30 AM EST Appointment [place] [address]1000 07/30/2024 8:30 AM EST Office Visit [place] [address]1000 Yamileth Nur APRN [facility] [place] [address] 07/30/2024 10:00 AM EST Appointment [place] [address] 08/13/2024 8:00 AM EST Appointment [place] [address] 08/13/2024 9:00 AM EST Office Visit [place] [address]1000 Rosalba Patel MD [facility] [place] [address] 08/13/2024 10:30 AM EST Appointment [place] [address] documented as of this encounter Results * (ABNORMAL) Comprehensive metabolic panel Non-fasting (04/25/2024 11:14 AM EDT) [facility] Glucose 385(H) 65 - 199 mg/dL 04/25/2024 11:57 AM EDT [facility] Comment:Glucose Concentratio n >=200 mg/dL plus symptoms is consistent with Diabetes Mellitus. Blood Urea Nitrogen 14 8 - 18 mg/dL 04/25/2024 11:57 AM EDT [facility] Creatinine 0.59(L) 0.70 - 1.20 mg/dL 04/25/2024 11:57 AM T [facility] Sodium 138 135 - 145 mMol/L 04/25/2024 11:57 AM EDT [facility] Potassium 4.2 3.5 - 5.0 mMol/L 04/25/2024 11:57 AM [facility] Chloride 101 98 - 107 mMol/L 04/25/2024 11:57 AM [facility] Carbon Dioxide 24 22 - 31 mMol/L 04/25/2024 11:57 AM [facility] Anion Gap 13 5 - 15 mMol/L 04/25/2024 11:57 AM [facility] Calcium 9.9 8.5 - 10.5 mg/dL 04/25/2024 11:57 AM [facility] Protein, Total 7.0 6.1 - 8.0 g/dL 04/25/2024 11:57 AM [facility] Albumin 4.4 3.2 - 5.2 g/dL 04/25/2024 11:57 AM [facility] Aspartate Aminotransferase 20 <=30 unit/L 04/25/2024 11:57 AM [facility] Alanine Aminotransferase 29 0 - 30 unit/L 04/25/2024 11:57 AM [facility] Alkaline Phosphatase 141(H) 35 - 105 unit/L 04/25/2024 11:57 AM [facility] Bilirubin, Total <0.2 <=1.3 mg/dL 04/25/2024 11:57 AM [facility] Est Glomerular Filtration Rate - Female 103 mL/min/1. 73 m?? 04/25/2024 11:57 AM [facility] Comment: This patient's estimated [...] Fasting Status No 04/25/2024 11:57 AM EDT [facility] Blood VENOUS BLOOD SPECIMEN / Unknown Venipuncture / Unknown 04/25/2024 11:14 AM EDT 04/25/2024 11:14 AM EDT Daily Amaral MD CHEMISTRY ORDERAB LES [facility] [place] [address] * CBC (with Diff) (04/25/2024 11:14 AM EDT) White Blood Cell 9.09 4.00 - 9.50 x10(3)/mcL 04/25/2024 11:32 AM EDT [facility] Red Blood Cell 4.96 4.00 - 5.21 x10(6)/mcL 04/25/2024 11:32 AM EDT [facility] Hemoglobin 15.2 11.7 - 15.5 g/dL 04/25/2024 11:32 AM EDT [facility] Hematocrit 43.7 35.7 - 45.8 % 04/25/2024 11:32 AM EDT [facility] Mean Cell Volume 88.1 82.6 - 94.4 fL 04/25/2024 11:32 AM EDT [facility] Mean Cell Hemoglobin 30.6 27.1 - 32.0 pg 04/25/2024 11:32 AM EDT [facility] Mean Cell Hemoglobin Concentration 34.8 31.7 - 35.0 g/dL 04/25/2024 11:32 AM EDT [facility] Platelet 317 145 - 357 x10(3)/mcL 04/25/2024 11:32 AM EDT [facility] Mean Platelet Volume 11.5 7.6 - 12.9 fL 04/25/2024 11:32 AM EDT [facility] RDW Standard Deviation 38.4 37.0 - 46.0 fL 04/25/2024 11:32 AM EDT [facility] RDW coefficient of variation 12.0 11.5 - 14.1 % 04/25/2024 11:32 AM [facility] NRBC% auto 0.0 % 04/25/2024 11:32 AM [facility] NRBC Absolute <0.01 <0.01 x10(3)/mcL 04/25/2024 11:32 AM [facility] Neutrophil % 57.8 % 04/25/2024 11:32 AM [facility] Neutrophil Absolute (ANC) - Automated 5.24 1.70 - 6.10 x10(3)/mcL 04/25/2024 11:32 AM [facility] Lymph % 30.1 % 04/25/2024 11:32 AM [facility] Lymph Absolute 2.74 0.90 - 3.20 x10(3)/mcL 04/25/2024 11:32 AM [facility] Monocyte % 7.0 % 04/25/2024 11:32 AM [facility] Monocyte Absolute 0.64 0.30 - 0.90 x10(3)/mcL 04/25/2024 11:32 AM [facility] Eos % 4.3 % 04/25/2024 11:32 AM [facility] Eos Absolute 0.39 0.00 - 0.40 x10(3)/mcL 04/25/2024 11:32 AM [facility] Basophil % 0.4 % 04/25/2024 11:32 AM [facility] Baso Absolute 0.04 0.00 - 0.10 x10(3)/mcL 04/25/2024 11:32 AM [facility] Immature Gran % 0.4 % 11:32 AM [facility] Immature Gran Absolute 0.04 0.00 - 0.04 x10(3)/mcL 04/25/2024 11:32 AM [facility] Blood VENOUS BLOOD SPECIMEN / Unknown Venipuncture / Unknown 04/25/2024 11:14 AM EDT 04/25/2024 11:14 AM EDT Daily Amaral MD HEMATOLOGY CHRISTOPHER HAAS [facility] [place] [address] * MRI Breast wwo Contrast Bilat (04/08/2024 10:00 AM EDT) [employer] WORKSTATION ID [id number] 2 DH RAD Anatomical [...] who have questions please contact the health rental boats caretaker that requested your imaging first. ? Narrative 04/08/2024 4:02 PM EDT EXAMINATION: MRI BREAST WWO CONTRAST BILAT CLINICAL INDICATION: new breast cancer. History of left breast ILC ER/CT positive TECHNIQUE: Multiplanar sequences were obtained pre- [...] contacted for additional images. Daily Amaral MD IMG MRI ORDERABLE S documented in this encounter Visit Diagnoses Diagnosis Malignant neoplasm of left breast in female, estrogen receptor positive, unspecified site of breast Malignant neoplasm of left breast in female, estrogen receptor positive, unspecified site of breast documented in this encounter Care Teams Aircraft Riveter Relationship Specialty Start Date End Date Nat Nicolas, [address] [place] [address] PCP - General Family Medicine 04/02/24 documented as of this encounter
--- OUTSIDE RECORDS SUMMARY | 2024-06-21 16:14 | XMS_ITS | Encounter Summary ---
Author Organization [facility] [place] [address] Care Team Providers Care Bike Technician Name Role Phone Carl Garvey DNP Primary Care Provider [phone] [phone] Encounter Details Date Type Department Care Team (Late st Contact Info) Description 01/19/2021 Ancillary Procedure Radiology Library at [facility] [place] [address] Nat Nicolas, DOWELER [address] [place] [address] Social History Tobacco Use Types Packs/Day Years [...] AM EST Appointment Hematology [place] [address]1000 07/02/2024 9:00 AM EST Office Visit Hematology [place] [address]1000 Rosalba Patel MD [facility] DR MEDICAL ONCOLOGY [place] [address] 07/02/2024 10:30 AM EST Appointment Hematology and Oncology at [place] [phone] 07/07/2024 10:30 AM EST TH Visit (TeleHealth) Hematology and Oncology at [place] [phone] Hem/Onc, Clinic Pharmacist None 07/17/2024 9:00 AM EST Appointment Hematology [place] [address] 07/17/2024 10:00 AM EST Office Visit Hematology and Oncology at [place] [phone] Rosalba Patel MD [facility] [place] [address] 07/17/2024 11:30 AM EST Appointment Hematology [place] [address] 07/30/2024 7:30 AM EST Appointment Hematology [place] [address] 07/30/2024 8:30 AM EST Office Visit [place]ematology [place] [address] Yamileth Nur APRN [facility] [address] [place] [address] 07/30/2024 10:00 AM EST Appointment Hematology [place] [address] 08/13/2024 8:00 AM EST Appointment Hematology [place] [address] 08/13/2024 9:00 AM EST Office Visit [place]ematology [place] [address] Rosalba Patel MD [facility] [place] [address] 08/13/2024 10:30 AM EST Appointment Hematology [place] [address] documented as of this encounter Procedures Procedure Name Priority Date/Time Associated Diagnosis Comments FILM LIBRARY STORAGE ONLY MAMMO Routine 01/19/2021 12:00 AM EDT documented in this encounter Results * Film Library- Storage Only Mammo (01/19/2021 12:00 AM EDT) Narrative [facility] - 03/10/2024 7:23 AM EDT This exam is auto-finalizing. It's purpose is for storage only. Nat Nicolas DOWELER IMG FILM LAKSHMI RY ORDERABLES Performing Organization Address City/State/[facility] Co de Phone Number [place], [place] documented in this encounter Visit Diagnoses Not on filedocumented in this encounter Care Teams Bike Technician Relationship Specialty Start Date End Date Carl Garvey DNP [facility] [address] [place] [address] PCP - General Family Medicine 05/03/20 04/01/24 documented as of this encounter
--- OUTSIDE RECORDS SUMMARY | 2024-06-21 16:14 | XMS_ITS | Encounter Summary ---
Author Organization [facility] [place] [address] Care Team Providers Care Education Diagnostician Name Role Phone Carl Garvey DNP Primary Care Provider [phone] Encounter Details Date Type Department Care Team (Late st Contact Info) Description 07/15/2023 Notes Only [place] [address] Bethanie Candelaria MD [facility] [place] [address] Social History Tobacco Use Types Packs/Day Years [...] by Transfer Center by Dr. Lizarraga at [facility] on 07/15 regarding Martha Rodriguez. Martha Rodriguez [...] for the patient to continue care at [facility]. We reviewed for any clinical changes, or [...] AM EST Appointment Hematology [place] [address] 07/02/2024 9:00 AM EST Office Visit Hematology [place] [address] Rosalba Patel MD [facility] [place] [address] 07/02/2024 10:30 AM EST Appointment Hematology [place] [address] 07/07/2024 10:30 AM EST TH Visit (TeleHealth) Hematology [place] [address] Hem/Onc, Clinic Pharmacist None 07/17/2024 9:00 AM EST Appointment Hematology [place] [address] 07/17/2024 10:00 AM EST Office Visit Hematology and Oncology at [place] [phone] Rosalba Patel MD [facility] [place] [address] 07/17/2024 11:30 AM EST Appointment Hematology [place] [address] 07/30/2024 7:30 AM EST Appointment Hematology and Oncology at [place] [phone] 07/30/2024 8:30 AM EST Office Visit Hematology and Oncology at [place] [phone] Yamileth Nur APRN [facility] [place] [address] 07/30/2024 10:00 AM EST Appointment Hematology and Oncology at [place] [phone] 08/13/2024 8:00 AM EST Appointment Hematology [place] [address] 08/13/2024 9:00 AM EST Office Visit Hematology [place] [address] Rosalba Patel MD [facility] [place] [address] 08/13/2024 10:30 AM EST Appointment Hematology [place] [address] documented as of this encounter Visit Diagnoses Not on filedocumented in this encounter Care Teams Education Diagnostician Relationship Specialty Start Date End Date Carl Garvey DNP [address] [place] [address] PCP - General Family Medicine 05/03/20 04/01/24 documented as of this encounter
--- OUTSIDE RECORDS SUMMARY | 2024-06-21 16:14 | XMS_ITS | Encounter Summary ---
Author Organization [facility] [place] [address] Care Team Providers Care Trench Pipe Layer Name Role Phone NicolasZacNatcarlos Malloy APRN Primary Care Provider Encounter Details Date Type Department Care Team (Latest Contact Info) Description 04/08/2024 Travel Social History Tobacco Use Types Packs/Day [...] AM EST [facility] [place] [address] 07/02/2024 9:00 AM EST Office Visit [place]ematology [place] [address] Rosalba Patel MD [facility] [place] [place] [address] 07/02/2024 10:30 AM EST Appointment [place]emat[place] [address] 07/07/2024 10:30 AM EST TH Visit (TeleHealth) [place] [address] Hem/Onc, Clinic Pharmacist None 07/17/2024 9:00 AM EST Appointment H[place] [address] 07/17/2024 10:00 AM EST Office Visit [place]ematology [place] [address] Rosalba Patel MD [facility] [place] [place] [address] 07/17/2024 11:30 AM EST Appointment [place] [address] 07/30/2024 7:30 AM EST Appointment [place] [address] 07/30/2024 8:30 AM EST Office Visit [place] [address] Yamileth Nur APRN [facility] [place] [place] [address] 07/30/2024 10:00 AM EST Appointment [place] [address] 08/13/2024 8:00 AM EST Appointment [place]emat[place] [address] 08/13/2024 9:00 AM EST Office Visit [place]ematology [place] [address] Rosalba Patel MD [facility] [place] [place] [address] 08/13/2024 10:30 AM EST Appointment Hematology [place] [address] documented as of this encounter Visit Diagnoses Not on filedocumented in this encounter Care Teams Trench Pipe Layer Relationship Specialty Start Date End Date Nat Nicolas, [employer] SYSTEM[employer] ARCHITECT [address] [place] [address] PCP - General Family Medicine 04/02/24 documented as of this encounter
--- OUTSIDE RECORDS SUMMARY | 2024-06-21 16:14 | XMS_ITS | Encounter Summary ---
[place] [address] Care Team Providers Care Sterile Processing Technician Name Role Phone Nat Nicolas APRN Primary Care Provider Reason for Referral * Diagnostic Test (Routine) - Closed Specialty Diagnoses / Procedures Referred By Contac t Referred To Contact Radiology Diagnoses Malignant neoplasm of left breast in female, estrogen receptor positive, unspecified site of breast Procedures NM Bone Scan Whole Body Daily Amaral MD [facility] [place] [address] [facility] [place] [address] Referral ID Status Reason Start Date Expiration Date V isits Requested Visits Authorized [id number] Closed Specialty Service Requested 04/10/2024 10/08/2025 1 1 * Diagnostic Test (Routine) - Closed Specialty Diagnoses / Procedures Referred By Contac t Referred To Contact Radiology Diagnoses Malignant neoplasm of left breast in female, estrogen receptor positive, unspecified site of breast Procedures CT Chest Abdomen Pelvis w Contrast (Generic) Daily Amaral MD [facility] [place] [address] [facility] [place] [address] Referral ID Status Reason Start Date Expiration Date V isits Requested Visits Authorized [id number] Closed Specialty Service Requested 04/10/2024 10/08/2025 1 1 Encounter Details Date Type Department Care Team (Late st Contact Info) Description 04/10/2024 Telephone [place] [address] Daily Amaral MD [facility] [place] [address] Social History Tobacco Use Types Packs/Day Years [...] encounter Miscellaneous Notes * Telephone Encounter - Daily Amaral MD - 04/10/2024 5:19 PM EDT Called patient to discuss recent breast MRI results. MRI showed: 1. Biopsy-proven malignancy (lesion #1) corresponds to 4.0 cm spiculated mass in the lower inner quadrant. Biopsy marker artifact is present anteriorly within the mass. 2. Separate left breast spiculated mass measuring 2.5 cm in the central upper breast, which is located 1.5 cm superiorly and 0.8 cm medially to the biopsy- proven malignancy (lesion #2). 3. Extensive regional nonmass enhancement concerning for malignancy with total extent measuring 7.6x 5.4 x 6.5 cm and involving the [...] 0.8 cm oval mass which demonstrates T2 hyperintensity,for which MRI directed ultrasound recommended. If this lesion is not seen by ultrasound, MRI guidedbiopsy recommended. 6. No right axillary or internal [...] seen by ultrasound, MRI guided biopsy recommended. These results were discussed with the patient along with the following plan: - Left axillary lymph node biopsy - Right breast MRI directed ultrasound and biopsy - Staging scans - CT C/A/P + NM Bone scan - Medical oncology appointment (04/16 at 2pm) to discuss possible neoadjuvant therapy - Follow up with me She was in agreement with the above procedure/appointments. Daily Amaral MD 04/10/2024 documented in this encounter Plan of Treatment Upcoming Encounters Date Type Department Care Team (Late st Contact Info) Description 07/02/2024 8:00 AM EST Appointment Hematology [place] [address] 07/02/2024 9:00 AM EST Office Visit Hematology [place] [address] Rosalba Patel MD [facility] [place] [address] 07/02/2024 10:30 AM EST Appointment Hematology [place] [address] 07/07/2024 10:30 AM EST TH Visit (TeleHealth) Hematology [place] [phone] Hem/Onc, Clinic Pharmacist None 07/17/2024 9:00 AM EST Appointment Hematology [place] [address] 07/17/2024 10:00 AM EST Office Visit Hematology [place] [address] Rosalba Patel MD [facility] [place] [address] 07/17/2024 11:30 AM EST Appointment Hematology [place] [address] 07/30/2024 7:30 AM EST Appointment Hematology [place] [address] 07/30/2024 8:30 AM EST Office Visit Hematology [place] [address] Yamileth Nur APRN [facility] [place] [address] 07/30/2024 10:00 AM EST Appointment Hematology [place] [address] 08/13/2024 8:00 AM EST Appointment Hematology [place] [address] 08/13/2024 9:00 AM EST Office Visit Hematology [place] [address] Rosalba Patel MD [facility] [place] [address] 08/13/2024 10:30 AM EST Appointment Hematology [place] [address] documented as of this encounter Results * Mammo US Biopsy Lymph Node Left (05/08/2024 9:41 AM EDT) WORKSTATION ID [id number] RAD [...] have questions please contact the health manager critical care unit that requested your imaging first. ? --------ORIGINAL [...] have questions please contact the health manager critical care unit that requested your imaging first. ? Electronically signed by: Olive Garcia [facility] ([phone]), at 05/08/2024 1:09 PM Impressions 05/08/2024 1:09 [...] have questions please contact the health manager critical care unit that requested your imaging first. ? Electronically signed by: Olive Garcia [facility] ([phone]), at 05/08/2024 1:[address] [facility] [address] [place], [place] ??[address] Narrative 05/08/2024 1:09 PM EDT EXAMINATION: MAMMO [...] Amaral MD IMG MAMMO ORDERAB LES * NM Bone Scan Whole Body (04/29/2024 10:53 AM EDT) Pathologist [employer] WORKSTATION ID [id number] RAD Anatomical Region Laterality Modality Nuclear Medicine [...] have questions please contact the health manager critical care unit that requested your imaging first. ? Electronically signed by: Jay Loyola MD, [facility] ([phone]), at 04/29/2024 11:33 AM Narrative 04/29/2024 11:33 [...] who have questions please contactthe health manager critical care unit that requested your imaging first. Electronically signed by: Jay Loyola MD, [facility]([phone]), at 04/29/2024 11:33 AM Daily Amaral MD IMG NM ORDERABLES * CT Chest Abdomen Pelvis w Contrast (Generic) (04/25/2024 1:50 PM EDT) WORKSTATION ID [id number] RAD Anatomical Region Laterality Modality Abdomen, Pelvis [...] have questions please contact the health manager critical care unit that requested your imaging first. ? Electronically signed by: ANAMARIA LOPEZ MD, [facility] ([phone]), at 04/28/2024 10:09 AM Narrative 04/28/2024 10:09 [...] who have questions please contactthe health manager critical care unit that requested your imaging first. Daily Amaral MD IMG CT ORDERABLES documented in this encounter Visit Diagnoses Diagnosis Malignant neoplasm of left breast in female, estrogen receptor positive, unspecified site of breast Mass of lower inner quadrant of right breast Malignant neoplasm of left breast in female, estrogen receptor positive, unspecified site of breast Malignant neoplasm of left breast in female, estrogen receptor positive, unspecified site of breast Malignant neoplasm of left breast in female, estrogen receptor positive, unspecified site of breast documented in this encounter Care Teams Sterile Processing Technician Relationship Specialty Start Date End Date Nat Nicolas APRN [address] [place] [address] PCP - General Family Medicine 04/02/24 documented as of this encounter
--- OUTSIDE RECORDS SUMMARY | 2024-06-21 16:15 | XMS_ITS | Encounter Summary ---
Author Organization [facility] [address] [place] [address] Care Team Providers Care Vocational Instructor Name Role Phone Nat Baker MD Primary Care Provider [phone] Encounter Details Date Type Department Care Team (Latest Contact Info) Description 08/31/2017 - 08/31/2017 11:59 PM EST Hospital Encounter Radiology Library [place] [facility] [address] [place] [address] Discharge Disposition: Home Social History Tobacco Use [...] tablet Take 25 mg by mouth daily. benzonatate (TESSALON) 100 mg Capsule Take 1 capsule by mouth 3 times daily as needed for Cough. 30 tablet 0 04/03/2015 ibuprofen (ADVIL;MOTRIN) 600 mg Tablet Take 1 tablet by mouth every 6 hours as needed for Pain. 30 tablet 0 01/24/2015 meclizine (ANTIVERT) 25 mg tablet Take 1 tablet by mouth 3 times daily as needed for Dizziness. 30 tablet 0 08/03/2013 OXYcodone (ROXICODONE) 5 mg immediate release tablet Take 1-2 tablets by mouth every 4 hours as needed for Pain. 20 tablet 0 02/14/2013 02/07/2022 documented as of this encounter Plan of Treatment Upcoming Encounters Date Type Department Care Team (Late st Contact Info) Description 07/02/2024 8:00 AM EST Appointment Hematology [place] [address] 07/02/2024 9:00 AM EST Office Visit Hematology [place] [address] Rosalba Patel MD [facility] [place] [address] 07/02/2024 10:30 AM EST Appointment Hematology [place] [address] 07/07/2024 10:30 AM EST TH Visit (TeleHealth) [place]ematology [place] [address] Hem/Onc, Clinic Pharmacist None 07/17/2024 9:00 AM EST Appointment Hematology [place] [address] 07/17/2024 10:00 AM EST Office Visit Hematology [place] [address] Rosalba Patel MD [facility] [place] [address] 07/17/2024 11:30 AM EST Appointment Hematology [place] [address] 07/30/2024 7:30 AM EST Appointment Hematology [place] [address] 07/30/2024 8:30 AM EST Office Visit [place]ematology [place] [address] Yamileth Nur APRN [facility] DR [place] [address] 07/30/2024 10:00 AM EST Appointment Hematology [place] [address] 08/13/2024 8:00 AM EST Appointment Hematology [place] [address] 08/13/2024 9:00 AM EST Office Visit Hematology [place] [address] Rosalba Patel MD [facility] DR [place] [address] 08/13/2024 10:30 AM EST Appointment Hematology [place] [address] documented as of this encounter Procedures Procedure Name Priority Date/Time Associated Diagnosis Comments FILM LIBRARY- STORAGE ONLY CT FACE Routine 08/31/2017 12:00 AM EST documented in this encounter Results * Film Library-Storage Only CT Face (08/31/2017 12:00 AM EST) Narrative [facility] - 09/01/2017 10:25 AM EST This exam is for storage only and is auto-finalizing. Nat Baker MD IMG FILM LIBRARY OR DERABLES [place], [place] documented in this encounter Visit Diagnoses Not on filedocumented in this encounter Care Teams Vocational Instructor Relationship Specialty Start Date End Date Nat [place] [place] [address] PCP - General 03/30/13 11/10/18 documented as of this encounter
--- OUTSIDE RECORDS SUMMARY | 2024-06-21 16:15 | XMS_ITS | Encounter Summary ---
Author Organization [facility] [place] [address] Care Team Providers Care Keno Attendant Name Role Phone Nat Baker MD Primary Care Provider [phone] Encounter Details Date Type Department Care Team (Late Contact Info) Description 04/20/2014 Interpretation Only Radiology [address] [place] [address] [place] [address] Unknown None Social History Tobacco Use Types [...] AM EST Appointment Hematology [place] [address] 07/02/2024 9:00 AM EST Office Visit Hematology [place] [address] Rosalba Patel MD [facility] [place] [address] 07/02/2024 10:30 AM EST Appointment Hematology [place] [address] 07/07/2024 10:30 AM EST TH Visit (TeleHealth) Hematology and Oncology at [place] [phone] Hem/Onc, Clinic Pharmacist None 07/17/2024 9:00 AM EST Appointment Hematology [place] [address] 07/17/2024 10:00 AM EST Office Visit Hematology and Oncology at [place] [phone] Rosalba Patel MD [facility] [place] [address] 07/17/2024 11:30 AM EST Appointment Hematology [place] [address] 07/30/2024 7:30 AM EST Appointment Hematology and Oncology at [place] [phone] 07/30/2024 8:30 AM EST Office Visit Hematology and Oncology at [place] [phone] Yamileth Nur APRN [facility] [place] [address] 07/30/2024 10:00 AM EST Appointment Hematology [place] [address] 08/13/2024 8:00 AM EST Appointment Hematology [place] [address] 08/13/2024 9:00 AM EST Office Visit Hematology [place] [address] Rosalba Patel MD [facility] [place] [address] 08/13/2024 10:30 AM EST Appointment Hematology [place] [address] documented as of this encounter Procedures Procedure Name Priority Date/Time Associated Diagnosis Comments XR CHEST PA AND LATERAL Routine 04/20/2014 9:20 AM EDT documented in this encounter Results * XR Chest PA & Lateral (Generic) (04/20/2014 9:20 AM EDT) Anatomical Region Laterality Modality Chest N/A Radiographic Re ging 04/20/2014 9:20 AM EDT Narrative 04/20/2014 9:20 AM EDT APD Historical Result Principal Patient Relations Representative: ??ADARSH ??CHRISSY CHEST - TWO VIEWS: HISTORY: ??Chest pain. [...] acute cardiopulmonary abnormality. Adarsh Nascimento MD [place] [id number] CC: Procedure Note Unknown - 01/20/2019 APD Historical Result Principal Patient Relations Representative: ADARSH NASCIMENTO CHEST - TWO VIEWS: HISTORY: [...] acute cardiopulmonary abnormality. Adarsh Nascimento MD [place] [id number] CC: Unknown IMG DX ORDERABLES documented in this encounter Visit Diagnoses Not on filedocumented in this encounter Care Teams Keno Attendant Relationship Specialty Start Date End Date Nat Baker MD [address] [place] [address] PCP - General 11/11/18 02/27/19 documented as of this encounter
--- OUTSIDE RECORDS SUMMARY | 2024-06-21 16:15 | XMS_ITS | Encounter Summary ---
[place] [address] Care Team Providers Care Animation Producer Name Role Phone Nat Baker MD Primary Care Provider [phone] Encounter Details Date Type Department Care Team (Late Contact Info) Description 04/30/2014 Orders Only Radiology and Cardiology Results [address] [place] [phone] Apd Conversion, Results Provider, Social History Tobacco [...] AM EST Appointment Hematology [place] [address] 07/02/2024 9:00 AM EST Office Visit Hematology [place] [address] Roaslba Patel MD [facility] [place] [address] 07/02/2024 10:30 AM EST Appointment Hematology [place] [address] 07/07/2024 10:30 AM EST TH Visit (TeleHealth) [place]ematology [place] [address] Hem/Onc, Clinic Pharmacist None 07/17/2024 9:00 AM EST Appointment Hematology [place] [address] 07/17/2024 10:00 AM EST Office Visit Hematology [place] [address] Rosalba Patel MD [facility] [place] [address] 07/17/2024 11:30 AM EST Appointment Hematology [place] [address] 07/30/2024 7:30 AM EST Appointment Hematology [place] [address] 07/30/2024 8:30 AM EST Office Visit Hematology [place] [address] Yamileth Nur APRN [facility] [place] [address] 07/30/2024 10:00 AM EST Appointment Hematology [place] [address] 08/13/2024 8:00 AM EST Appointment Hematology [place] [address] 08/13/2024 9:00 AM EST Office Visit Hematology [place] [address] Rosalba Patel MD [facility] [place] [address] 08/13/2024 10:30 AM EST Appointment Hematology [place] [address] documented as of this encounter Procedures Procedure Name Priority Date/Time Associated Diagnosis Comments VITAMIN B12 Routine 04/30/2014 documented in this encounter Results * (ABNORMAL) Vitamin B12 (04/30/2014) Vitamin B12 782(Official Court Interpreter al Lab) [phone] DORA JONES CONVERSION 04/30/2014 Results Provider Apd Conversion [facility]SON ORDERABLES DORA JONES CONVERSION documented in this encounter Visit Diagnoses Not on filedocumented in this encounter Care Teams Animation Producer Relationship Specialty Start Date End Date Nat Baker MD [address] [place] [address] PCP - General 11/11/18 02/27/19 documented as of this encounter
--- OUTSIDE RECORDS SUMMARY | 2024-06-21 16:15 | XMS_ITS | Encounter Summary ---
[place] [address] Care Team Providers Care Paperhanger Pipe Name Role Phone None Primary Care Provider Unavailabl e Reason for Visit * Reason Comments Abdominal Pain Encounter Details Date Type Department Care Team (Late st Contact Info) Description 02/14/2013 4:03 AM EDT - 02/14/2013 6:19 AM EDT [place] [address] Orville Martinez MD [facility] [place] [address] Diverticulitis (Primary Dx); Headache Discharge Disposition: Home [...] Care Everywhere. * DIVERTICULITIS: AFTER YOUR VISIT (SPANISH) * HEADACHE: AFTER YOUR VISIT TO THE EMERGENCY ROOM (SPANISH) documented in this encounter Medications at Time [...] exam c/w with early diverticulitis without complication. Rumney rhonda stable for outpatient management. Considered stone but unlikely given CT findings. Considered ovarian pathology but pelvic exam less concerning and alternative dx more likely. 2. Headache. Low suspicion for SAH. No concern for meningitis. Low suspicion for mass lesion. Assessment: 1. Diveritulitis; 2. Primary Headache Plan: Discharge. Cipro/flagyl x 10d. Percocet prn. F/U LAMP STACK DEVELOPER in 1 week. Orville Martinez MD 02/14/13 0648 documented in this encounter Miscellaneous Notes * Miscellaneous - Provider, Scanning - 02/14/2013 12:03 PM EDT * Med Student H&P - NubiaNildaJ Carlosra Whitaker - 02/14/2013 5:13 AM EDT Patient Name: [...] UA Negative Appearance UA Clear Clear Spec [place] UA 1.013 1.002 - 1.030 Color UA Yellow Yellow RBC UA <1 0 - 4 /HPF WBC UA 1 0 - 5 /HPF Bacteria UA Rare (*) None /HPF Squam Epith UA 2 <=4 /HPF Trans Epith UA <1 <=1 /HPF POCT URINE DIPSTICK Component Value Range POC Sp [place] 1.020 1.002 - 1.030 POC pH, UA [...] ED precautions discussedat length. Xavier Castillo, MS4 #[id number] * ED Triage - Anna Marie Pelayo [...] AM EST Appointment Hematology and Oncology at [place] [phone] 07/02/2024 9:00 AM EST Office Visit Hematology [place] [address] Rosalba Patel MD [facility] [place] [address] 07/02/2024 10:30 AM EST Appointment Hematology and Oncology at [place] [phone] 07/07/2024 10:30 AM EST TH Visit (TeleHealth) Hematology and Oncology at [place] [phone] Hem/Onc, Clinic Pharmacist None 07/17/2024 9:00 AM EST Appointment Hematology [place] [address] 07/17/2024 10:00 AM EST Office Visit Hematology and Oncology at [place] [phone] Rosalba Patel MD [facility] [place] [address] 07/17/2024 11:30 AM EST Appointment Hematology [place] [address] 07/30/2024 7:30 AM EST Appointment Hematology [place] [address] 07/30/2024 8:30 AM EST Office Visit Hematology [place] [phone] Yamileth Nur APRN [facility] [place] [address] 07/30/2024 10:00 AM EST Appointment Hematology [place] [address] 08/13/2024 8:00 AM EST Appointment [place]ology [place] [address] 08/13/2024 9:00 AM EST Office Visit [place]ematology [place] [address] Rosalba Patel MD [facility] [place] [address] 08/13/2024 10:30 AM EST Appointment Hematology [place] [address] documented as of this encounter Procedures Procedure Name Priority Date/Time Associated Diagnosis Comments CT ABDOMEN AND PELVIS WO CONTRAST STAT 02/14/2013 5:51 AM EDT DIFFERENTIAL, AUTOMATED STAT 02/14/2013 4:40 AM EDT BLUE TUBE HOLD STAT 02/14/2013 4:40 AM EDT CREATININE Routine 02/14/2013 4:40 AM EDT CBC (WITH DIFF) STAT 02/14/2013 4:40 AM EDT BUN STAT 02/14/2013 4:40 AM EDT GLUCOSE STAT 02/14/2013 4:40 AM EDT ELECTROLYTES PANEL [...] (ABNORMAL) Differential, Automated (02/14/2013 4:40 AM EDT) Neutrophil % 68.7 34.0 - 71.0 % CERNER MILLENNIUM Neutrophil Absolute 9.47(H) 1.50 - 6.30 x10(3)/mc L CERNER MILLENNIUM Lymph % 19.8 19.0 - 53.0 % CERNER MILLENNIUM Lymphocytes Abs 2.7 1.0 - 3.6 x10(3)/mc L CERNER MILLENNIUM Monocyte % 9.1 4.0 - 13.0 % CERNER MILLENNIUM Monocyte Abs 1.3(H) 0.2 - 1.0 x10(3)/mc L CERNER MILLENNIUM Eos % 2.2 0.0 - 7.0 % CERNER MILLENNIUM Eosinophils Abs 0.3 0.0 - 0.5 x10(3)/mc L CERNER MILLENNIUM Basophil % 0.1 0.0 - 2.0 % CERNER MILLENNIUM Baso Absolute 0.0 0.0 - 0.2 x10(3)/mc L CERNER MILLENNIUM Immature Gran % 0.10 0.00 - 0.66 % [facility] Comment: Immature granulocytes(IG's)percentage and absolute count will include metamyelocytes, myelocytes, and promyelocytes. Blood smears from CBCs yielding IG's will be scanned manually for concordance. If this scan disagrees with the automated IG or if promyelocytes are noted, a manual differential will be performed. Immature Gran Absolute 0.02 0.00 - 0.05 x10(3)/mc L [facility] Blood specimen (specimen) 02/14/2013 4:40 AM EDT 02/14/2013 4:48 AM EDT Orville Martinez MD HEMATOLOGY ORDERABLE S Performing Organization Address [facility] de Phone Number [facility] * Blue Tube HOLD (02/14/2013 4:40 AM EDT) Pathologist [facility] Emergency Department Blue Hold Sample in lab. [facility] Blood specimen (specimen) 02/14/2013 4:40 AM EDT 02/14/2013 4:48 AM EDT Orville Martinez MD HEMATOLOGY ORDERABLE S Performing Organization Address [facility] de Phone Number [facility] * Glucose, random (02/14/2013 4:40 AM EDT) Glucose 148 60 - 199 mg/dL [facility] Comment:Diabetes: >=200 mg/d L plus symptoms Blood specimen (specimen) 02/14/2013 4:40 AM EDT 02/14/2013 4:48 AM EDT Narrative Resulting Agency Comment Spec In Lab Orville Martinez MD CHEMISTRY ORDERABLES Performing Organization Address [facility] Phone Number [facility] * Creatinine (02/14/2013 4:40 AM EDT) Creatinine 0.94 0.70 - 1.20 mg/dL [facility] Comment: Please note that the pediatric reference intervals supplied above were not validated at [facility]. Results from pediatric patients should be interpreted in conjunction to the patient's age, height and muscle mass. Est Glomerular Filtration Rate >60 >=60 CERNER MILLENNIUM Comment: This estimated GFR (eGFR) value was [...] Martinez MD CHEMISTRY ORDERABLES Performing Organization Address [facility] Co de Phone Number CERNER MILLENNIUM * BUN (02/14/2013 4:40 AM EDT) Blood Urea Nitrogen 14 8 - 18 mg/dL CERNER MILLENNIUM Blood specimen (specimen) 02/14/2013 4:40 AM EDT 02/14/2013 4:48 AM EDT Narrative Resulting Agency Comment Spec In Lab Orville Martinez MD CHEMISTRY ORDERABLES Performing Organization Address [facility] de Phone Number CERLEXI MILLENNIUM * (ABNORMAL) Electrolytes panel (02/14/2013 4:40 [...] 99 98 - 107 mmol/L CERNER MILLENNIUM Carbon Dioxide 22 22 - 31 mmol/L CERNER MILLENNIUM Anion Gap 15 5 - 15 mmol/L CERNER MILLENNIUM Blood specimen (specimen) 02/14/2013 4:40 AM EDT 02/14/2013 4:48 AM EDT Narrative Resulting Agency Comment Spec In Lab Orville Martinez MD CHEMISTRY ORDERABLES Performing Organization Address City/[facility]/ZIP Co de Phone Number HILLARY HAYESIUM * (ABNORMAL) CBC (with Diff) (02/14/2013 4:40 AM EDT) White Blood Cell 13.8(H) 4.0 - 10.0 x10(3)/mc L CERNER MILLENNIUM Red Blood Cell 4.88 3.93 - 5.22 x10(6)/mc L CERNER MILLENNIUM Hemoglobin 15.2 11.2 - 15.7 gm/dL CERNER MILLENNIUM Hematocrit 43.6 34.0 - 45.0 % CERNER MILLENNIUM Mean Cell Volume 89.3 79.0 - 94.0 fL CERNER MILLENNIUM Mean Cell Hemoglobin 31.1 26.6 - 32.2 pg CERNER MILLENNIUM Mean Cell Hemoglobin Concentration 34.9 32.0 - 36.5 gm/dL CERNER MILLENNIUM Platelet 330 145 - 370 x10(3)/mc L CERNER MILLENNIUM RDW Standard Deviation 40.3 35.0 - 46.0 fL CERNER MILLENNIUM RDW coefficient of variation 12.5 10.9 - 14.4 % CERNER MILLENNIUM Mean Platelet Volume 11.6 9.0 - 12.0 fL CERNER MILLENNIUM Blood specimen (specimen) 02/14/2013 4:40 AM EDT 02/14/2013 4:48 AM EDT Narrative Resulting Agency Comment Spec In Lab Orville Martinez MD HEMATOLOGY ORDERABLE S Performing Organization Address [facility]/ZIP Co de Phone Number HILLARY DUBON * POCT urine (02/14/2013 4:24 AM EDT) POC Urine HCG Negative (none) POC Control Internal Controls Acceptable (none) Orville Martinez MD POINT OF CARE TEST O RDERABLES * POCT urine dipstick (02/14/2013 4:24 AM EDT) POC Sp [place] 1.020 1.002 - 1.030 POC pH, UA [...] Urinalysis with microscopic (02/14/2013 4:23 AM EDT) Glucose, Urine Dipstick Negative Negative mg/dL CERNER MILLENNIUM Protein, Urine Dipstick Negative mg/dL CERNER MILLENNIUM Bilirubin, Urine Dipstick Negative Negative mg/dL CERNER MILLENNIUM Urobilinogen, Urine Dipstick Normal mg/dL CERNER MILLENNIUM pH, Urn (dipstick) 5.5 5.0 - 8.0 CERNER MILLENNIUM Blood, Urine Dipstick Trace(A) Neg CERNER MILLENNIUM Ketone, Urine Dipstick Negative mg/dL CERNER MILLENNIUM Nitrite, Urine Dipstick Negative CERNER MILLENNIUM Leukocytes, Urine Dipstick Negative mcL CERNER MILLENNIUM Appearance, Urine Dipstick Clear Clear CERNER MILLENNIUM Specific [place] Urine Automated 1.013 1.002 - 1.030 CERNER MILLENNIUM Color, Urine Dipstick Yellow Yellow CERNER MILLENNIUM RBC, Urine <1 0 - 4 /HPF CERNER MILLENNIUM WBC, Urine 1 0 - 5 /HPF CERNER MILLENNIUM Bacteria, Urine Rare(A) None /HPF CERN ER MILLENNIUM Squamous Epithelial Cells, Urine 2 <=4 /HPF CERNER MILLENNIUM Transitional Epithelial Cells, Urine <1 <=1 /HPF CERNER MILLENNIUM Urine specimen (specimen) 02/14/2013 4:23 AM EDT 02/14/2013 4:32 AM EDT Narrative Resulting Agency Comment Spec In Lab Orville Martinez MD URINE ORDERABLES HILLARY DUBON documented in this encounter Visit [...] RN) documented in this encounter Care Teams Paperhanger Pipe Relationship Specialty Start Date End Date None None PCP - General 02/14/13 03/29/13 documented as of this encounter
--- OUTSIDE RECORDS SUMMARY | 2024-06-21 16:15 | XMS_ITS | Encounter Summary ---
[place] [address] Care Team Providers Care Glass Crusher Name Role Phone Nat Baker MD Primary Care Provider [phone] Encounter Details Date Type Department Care Team (Late st Contact Info) Description 11/29/2018 10:45 PM EDT Ancillary Procedure Radiology at [facility] [address] [place] [address] Nat Baker MD [address] [place] [address] Social History Tobacco Use Types Packs/Day Years [...] AM EST Appointment Hematology [place] [address] 07/02/2024 9:00 AM EST Office Visit Hematology [place] [address] Rosalba Patel MD [facility] [place] [address] 07/02/2024 10:30 AM EST Appointment Hematology [place] [address] 07/07/2024 10:30 AM EST TH Visit (TeleHealth) Hematology [place] [address] Hem/Onc, Clinic Pharmacist None 07/17/2024 9:00 AM EST Appointment Hematology [place] [address] 07/17/2024 10:00 AM EST Office Visit Hematology [place] [address] Rosalba Patel MD [facility] [place] [address] 07/17/2024 11:30 AM EST Appointment Hematology [place] [address] 07/30/2024 7:30 AM EST Appointment Hematology [place] [address] 07/30/2024 8:30 AM EST Office Visit Hematology [place] [address] Yamileth Nru APRN [facility] [place] [address] 07/30/2024 10:00 AM EST Appointment Hematology [place] [address] 08/13/2024 8:00 AM EST Appointment Hematology [place] [address] 08/13/2024 9:00 AM EST Office Visit Hematology [place] [address] Rosalba Patel MD [facility] [place] [address] 08/13/2024 10:30 AM EST Appointment Hematology and Oncology at [facility] [place] [place] [address] documented as of this encounter Procedures Procedure Name Priority Date/Time Associated Diagnosis Comments FILM LIBRARY STORAGE ONLY MR HEAD Routine 11/29/2018 10:44 PM EDT documented in this encounter Results * Film Library- Storage Only MR Head (11/29/2018 10:44 PM EDT) Narrative [facility] - 11/29/2018 10:44 PM EDT This exam is auto-finalizing. It's purpose is for storage only. Nat Baker MD G FILM LIBRARY ORD ERABLES Performing Organization Address City/State/[facility] Co de Phone Number [place], [place] documented in this encounter Visit Diagnoses Not on filedocumented in this encounter Care Teams Glass Crusher Relationship Specialty Start Date End Date Nat Baker MD [address] [place] [address] PCP - General 11/11/18 02/27/19 documented as of this encounter
--- OUTSIDE RECORDS SUMMARY | 2024-06-21 16:15 | XMS_ITS | Encounter Summary ---
Author Organization [facility] [place] [address] Care Team Providers Care Lime Trimmer Name Role Phone Unavailable Primary Care Provider Unavailabl e Encounter Details Date Type Department Care Team (Late Contact Info) Description 03/20/2006 Ancillary Procedure Radiology Library at [facility] [place] [address] Nat Nicolas, CHIEF PSYCHOLOGY [address] [place] [address] Social History Tobacco Use Types Packs/Day Years Used Date Smoking Tobacco: Never Assessed Sex and Gender Information Value Date Recorded Sex Assigned at Not on file Gender Identity Not on file Sexual Orientation Not on file documented as of this encounter Plan of Treatment Upcoming Encounters Date Type Department Care Team (Late Contact Info) Description 07/02/2024 8:00 AM EST Appointment Hematology [place] [address] 07/02/2024 9:00 AM EST Office Visit Hematology [place] [address] Rosalba Patel MD [facility] [place] [address] 07/02/2024 10:30 AM EST Appointment Hematology [place] [address] 07/07/2024 10:30 AM EST TH Visit (TeleHealth) Hematology and Oncology at [place] [phone] Hem/Onc, Clinic Pharmacist None 07/17/2024 9:00 AM EST Appointment Hematology [place] [address] 07/17/2024 10:00 AM EST Office Visit Hematology [place] [address] Rosalba Patel MD [facility] [place] [address] 07/17/2024 11:30 AM EST Appointment Hematology [place] [address] 07/30/2024 7:30 AM EST Appointment Hematology [place] [address] 07/30/2024 8:30 AM EST Office Visit Hematology [place] [address] Yamileth Nur APRN [facility] [place] [address] 07/30/2024 10:00 AM EST Appointment Hematology [place] [address] 08/13/2024 8:00 AM EST Appointment Hematology [place] [address] 08/13/2024 9:00 AM EST Office Visit Hematology [place] [address] Rosalba Patel MD [facility] [place] [address] 08/13/2024 10:30 AM EST Appointment Hematology [place] [address] documented as of this encounter Procedures Procedure Name Priority Date/Time Associated Diagnosis Comments FILM LIBRARY STORAGE ONLY MAMMO Routine 03/20/2006 12:00 AM EDT documented in this encounter Results * Film Library- Storage Only Mammo (03/20/2006 12:00 AM EDT) Narrative [facility] - 03/10/2024 7:23 AM EDT This exam is auto-finalizing. It's purpose is for storage only. Nat Nicolas APRN IMG FILM LAKSHMI RY ORDERABLES [place], [place] documented in this encounter Visit Diagnoses Not on filedocumented in this encounter
--- OUTSIDE RECORDS SUMMARY | 2024-06-21 16:15 | XMS_ITS | Encounter Summary ---
Author Organization [facility] [place] [address] Care Team Providers Care Delivery Of Shopping News Name Role Phone Nat Baker MD Primary Care Provider [phone] Encounter Details Date Type Department Care Team (Late st Contact Info) Description 10/06/2019 Ancillary Procedure Radiology Library at [facility] [place] [address] Nat Nicolas, PUG MILL OPERATOR HELPER [address] [place] [address] Social History Tobacco Use Types Packs/Day Years [...] AM EST Appointment Hematology [place] [address] 07/02/2024 9:00 AM EST Office Visit Hematology [place] [address] Rosalba Patel MD [facility] [place] [address] 07/02/2024 10:30 AM EST Appointment Hematology and Oncology at [address] 07/07/2024 10:30 AM EST TH Visit (TeleHealth) Hematology and Oncology at [place] [phone] Hem/Onc, Clinic Pharmacist None 07/17/2024 9:00 AM EST Appointment Hematology and Oncology at [place] [phone] 07/17/2024 10:00 AM EST Office Visit Hematology and Oncology at [place] [phone] Rosalba Patel MD [facility] [place] [address] 07/17/2024 11:30 AM EST Appointment Hematology and Oncology at [place] [phone] 07/30/2024 7:30 AM EST Appointment Hematology and Oncology at [place] [phone] 07/30/2024 8:30 AM EST Office Visit Hematology and Oncology at [place] [phone] Yamileth Nur APRN [facility] [place] [address] 07/30/2024 10:00 AM EST Appointment Hematology [place] [address] 08/13/2024 8:00 AM EST Appointment Hematology [place] [address] 08/13/2024 9:00 AM EST Office Visit Hematology [place] [address] Rosalba Patel MD [facility] [place] [address] 08/13/2024 10:30 AM EST Appointment Hematology [place] [address] documented as of this encounter Procedures Procedure Name Priority Date/Time Associated Diagnosis Comments FILM LIBRARY STORAGE ONLY MAMMO Routine 10/06/2019 12:00 AM EDT documented in this encounter Results * Film Library- Storage Only Mammo (10/06/2019 12:00 AM EDT) Narrative [facility] - 03/10/2024 7:23 AM EDT This exam is auto-finalizing. It's purpose is for storage only. Nat Nicolas PUG MILL OPERATOR HELPER IMG FILM LAKSHMI RY ORDERABLES Performing Organization Address City/State/[facility] Co de Phone Number [place], [place] documented in this encounter Visit Diagnoses Not on filedocumented in this encounter Care Teams Delivery Of Shopping News Relationship Specialty Start Date End Date Nat Baker MD [address] [place] [address] PCP - General Family Medicine 02/28/19 05/02/20 documented as of this encounter
--- OUTSIDE RECORDS SUMMARY | 2024-06-21 16:15 | XMS_ITS | Encounter Summary ---
[place] [address] Care Team Providers Care Field Crop Harvest Contractor Name Role Phone Nat Baker MD Primary Care Provider [phone] Encounter Details Date Type Department Care Team (Late Contact Info) Description 12/02/2018 External Results Non-Invasive [place] [address] Social History Tobacco Use Types Packs/Day Years [...] AM EST Appointment Hematology [place] [address] 07/02/2024 9:00 AM EST Office Visit Hematology [place] [address] Rosalba Patel MD [facility] [place] [address] 07/02/2024 10:30 AM EST Appointment Hematology [place] [address] 07/07/2024 10:30 AM EST TH Visit (TeleHealth) Hematology [place] [address] Hem/Onc, Clinic Pharmacist None 07/17/2024 9:00 AM EST Appointment Hematology [place] [address] 07/17/2024 10:00 AM EST Office Visit Hematology [place] [address] Rosalba Patel MD [facility] [place] [address] 07/17/2024 11:30 AM EST Appointment Hematology [place] [address] 07/30/2024 7:30 AM EST Appointment Hematology [place] [address] 07/30/2024 8:30 AM EST Office Visit Hematology [place] [address] Yamileth Nur APRN [facility] [place] [address] 07/30/2024 10:00 AM EST Appointment Hematology [place] [address] 08/13/2024 8:00 AM EST Appointment Hematology [place] [address] 08/13/2024 9:00 AM EST Office Visit Hematology [place] [address] Rosalba Patel MD [facility] [place] [address] 08/13/2024 10:30 AM EST Appointment Hematology [place] [address] documented as of this encounter Procedures Procedure Name Priority Date/Time Associated Diagnosis Comments ECHO SCAN (SCAN) Routine 12/02/2018 documented in this encounter Results * Scan Doc: Echo (12/02/2018) Anatomical Region Laterality Modality Cardiac Other Historical Provider MD MARTINEZ MGR SCAN EX T ORDR/RSLT documented in this encounter Visit Diagnoses Not on filedocumented in this encounter Care Teams Field Crop Harvest Contractor Relationship Specialty Start Date End Date Nat Baker MD [address] [place] [address] PCP - General 11/11/18 02/27/19 documented as of this encounter
--- OUTSIDE RECORDS SUMMARY | 2024-06-21 16:15 | XMS_ITS | Encounter Summary ---
[place] [address] Care Team Providers Care Nurse Practitioner Physician Assistant Name Role Phone Nat Baker MD Primary Care Provider [phone] Reason for Visit * Reason Comments Cough Encounter Details Date Type Department Care Team (Late st Contact Info) Description 04/03/2015 12:15 PM EDT - 04/03/2015 2:50 PM EDT Emergency [place] [address] Dorian Brooke MD [facility] [place] [address] Acute URI Discharge Disposition: Home Social History [...] from the original note were not included. [facility] Upper Respiratory Infection (Cold): After Your [...] include drinking lots of fluids and taking kdzy-rhu-jkrhpiz pain medicine. You will probably feel better [...] of fluids you drink. ?? Take an uqaf-ota-gxuihmt pain medicine, such as acetaminophen (Tylenol), ibuprofen [...] health problems. ?? Be careful when taking xfos-mha-bfslrng cold or flu medicines and Tylenol at [...] more? Visit our health information library at [email or web address] You can also view health information on Loom, your personal patient account. Log in or sign up today. Enter K520 in the search box to learn more about Upper Respiratory Infection (Cold): After Your Visit. ?? [id number] [employer], [employer]. Care instructions adapted under license by [facility]. This care instruction is for use with your licensed healthcare professional. If you have questions about a medical condition or this instruction, always ask your healthcare professional. A Fourth Act disclaims any warranty or liability for your use of this information. Content Version: 10.4.129366; Current as of: March 31, 2014 documented [...] history is provided by the patient. No separating machine operator was used. No Known Allergies Review of [...] URI Dispo: Home Dorian Brooke MD 04/03/15 7471 documented in this encounter Miscellaneous Notes * [...] Appointment Hematology and Oncology at [place] [phone] 07/02/2024 9:00 AM EST Office Visit Hematology [place] [address] Rosalba Patel MD [facility] [place] [address] 07/02/2024 10:30 AM EST Appointment Hematology and Oncology at [place] [phone] 07/07/2024 10:30 AM EST TH Visit (TeleHealth) Hematology [place] [address] Hem/Onc, Clinic Pharmacist None 07/17/2024 9:00 AM EST Appointment H[place]ology [place] [address] 07/17/2024 10:00 AM EST Office Visit Hematology [place] [address] Rosalba Patel MD [facility] [place] [address] 07/17/2024 11:30 AM EST Appointment H[place]ology [place] [address] 07/30/2024 7:30 AM EST Appointment H[place]ology [place] [address] 07/30/2024 8:30 AM EST Office Visit Hematology [place] [address] Yamileth Nur APRN [facility] [place] [address] 07/30/2024 10:00 AM EST Appointment Hematology [place] [address] 08/13/2024 8:00 AM EST Appointment Hematology [place] [address] 08/13/2024 9:00 AM EST Office Visit [place]ematology [place] [address] Rosalba Patel MD [facility] [place] [address] 08/13/2024 10:30 AM EST Appointment Hematology [place] [address] documented as of this encounter Procedures Procedure [...] site documented in this encounter Care Teams Nurse Practitioner Physician Assistant Relationship Specialty Start Date End Date [place] [address] [place] [address] PCP - General 03/30/13 11/10/18 documented as of this encounter
--- OUTSIDE RECORDS SUMMARY | 2024-06-21 16:15 | XMS_ITS | Encounter Summary ---
[place] [address] Care Team Providers Care Surveyor Chain Helper Name Role Phone Nat Baker MD Primary Care Provider [phone] Encounter Details Date Type Department Care Team (Late Contact Info) Description 08/06/2015 Orders Only Radiology and Cardiology Results [address] [place] [phone] Apd Conversion, Results Provider, Social History Tobacco [...] AM EST Appointment Hematology [place] [address] 07/02/2024 9:00 AM EST Office Visit Hematology [place] [address] Rosalba Patel MD [facility] [place] [place] [address] 07/02/2024 10:30 AM EST Appointment Hematology [place] [address] 07/07/2024 10:30 AM EST TH Visit (TeleHealth) [place] [address] Hem/Onc, Clinic Pharmacist None 07/17/2024 9:00 AM EST Appointment Hematology [place] [address] 07/17/2024 10:00 AM EST Office Visit [place]ematology [place] [address] Rosalba Patel MD [facility] [place] [address] 07/17/2024 11:30 AM EST Appointment Hematology [place] [address] 07/30/2024 7:30 AM EST Appointment H[place]ology [place] [address] 07/30/2024 8:30 AM EST Office Visit [place]ematology [place] [address] Yamileth Nur APRN [facility] [place] [place] [address] 07/30/2024 10:00 AM EST Appointment H[place]ology [place] [address] 08/13/2024 8:00 AM EST Appointment Hematology [place] [address] 08/13/2024 9:00 AM EST Office Visit [place]ematology [place] [address] Rosalba Patel MD [facility] [place] [place] [address] 08/13/2024 10:30 AM EST Appointment Hematology [place] [address] documented as of this encounter Procedures Procedure Name Priority Date/Time Associated Diagnosis Comments HEMOGLOBIN A1C Routine 08/06/2015 documented in this encounter Results * (ABNORMAL) Hemoglobin A1c (08/06/2015) Estimated Average Glucose 162.8(ExtH ) 82.5 - 116.9 DORA ARRIAGA DAY CONVERSION Hemoglobin A1c 7.3(ExtH) 4.5 - 6.2 DORA ARRIAGA DAY CONVERSION 08/06/2015 Results Provider Apd Conversion MD GUILLERMO VINSON ORDERABLES DORA JONES CONVERSION documented in this encounter Visit Diagnoses Not on filedocumented in this encounter Care Teams Surveyor Chain Helper Relationship Specialty Start Date End Date Nat Baker MD [address] [place] [address] PCP - General 11/11/18 02/27/19 documented as of this encounter
--- OUTSIDE RECORDS SUMMARY | 2024-06-21 16:15 | XMS_ITS | Encounter Summary ---
Author Organization [facility] [place] [address] Care Team Providers Care Through Freight Engineer Name Role Phone Nat Baker MD Primary Care Provider [phone] Encounter Details Date Type Department Care Team (Late st Contact Info) Description 10/17/2019 Ancillary Procedure Radiology Library at [facility] [place] [address] Nat Nicolas, BODY FINISHER [address] [place] [address] Social History Tobacco Use Types Packs/Day Years [...] AM EST Appointment Hematology [place] [address] 07/02/2024 9:00 AM EST Office Visit Hematology [place] [address] Rosalba Patel MD [facility] [place] [address] 07/02/2024 10:30 AM EST Appointment Hematology and Oncology at [address] 07/07/2024 10:30 AM EST TH Visit (TeleHealth) Hematology and Oncology at [place] [phone] Hem/Onc, Clinic Pharmacist None 07/17/2024 9:00 AM EST Appointment Hematology and Oncology at [place] [phone] 07/17/2024 10:00 AM EST Office Visit Hematology and Oncology at [place] [phone] Rosalba Patel MD [facility] [place] [address] 07/17/2024 11:30 AM EST Appointment Hematology and Oncology at [place] [phone] 07/30/2024 7:30 AM EST Appointment Hematology and Oncology at [place] [phone] 07/30/2024 8:30 AM EST Office Visit Hematology and Oncology at [place] [phone] Yamileth Nur APRN [facility] [place] [address] 07/30/2024 10:00 AM EST Appointment Hematology [place] [address] 08/13/2024 8:00 AM EST Appointment H[place] [address] 08/13/2024 9:00 AM EST Office Visit Hematology [place] [address] Rosalba Patel MD [facility] [place] [address] 08/13/2024 10:30 AM EST Appointment Hematology [place] [address] documented as of this encounter Procedures Procedure Name Priority Date/Time Associated Diagnosis Comments FILM LIBRARY STORAGE ONLY MAMMO Routine 10/17/2019 12:00 AM EDT documented in this encounter Results * Film Library- Storage Only Mammo (10/17/2019 12:00 AM EDT) Narrative [facility] - 03/10/2024 7:23 AM EDT This exam is auto-finalizing. It's purpose is for storage only. Nat Nicolas BODY FINISHER IMG FILM LAKSHMI RY ORDERABLES Performing Organization Address City/State/[facility] Co de Phone Number [place], [place] documented in this encounter Visit Diagnoses Not on filedocumented in this encounter Care Teams Through Freight Engineer Relationship Specialty Start Date End Date Nat Baker MD [address] [place] [address] PCP - General Family Medicine 02/28/19 05/02/20 documented as of this encounter
--- OUTSIDE RECORDS SUMMARY | 2024-06-21 16:15 | XMS_ITS | Encounter Summary ---
[place] [address] Care Team Providers Care Motorman/Woman Name Role Phone Nat Baker MD Primary Care Provider [phone] Encounter Details Date Type Department Care Team (Late Contact Info) Description 04/07/2014 Abstract Cherelle Jones Conversion Results [address] [place] [address] Apd Conversion, Flowsheet Provider, Social History Tobacco [...] AM EST Appointment Hematology [place] [address] 07/02/2024 9:00 AM EST Office Visit Hematology [place] [address] Rosalba Patel MD [facility] [place] [address] 07/02/2024 10:30 AM EST Appointment Hematology [place] [address] 07/07/2024 10:30 AM EST TH Visit (TeleHealth) Hematology [place] [address] Hem/Onc, Clinic Pharmacist None 07/17/2024 9:00 AM EST Appointment Hematology [place] [address] 07/17/2024 10:00 AM EST Office Visit Hematology [place] [address] Rosalba Patel MD [facility] [place] [address] 07/17/2024 11:30 AM EST Appointment Hematology [place] [address] 07/30/2024 7:30 AM EST Appointment Hematology [place] [address] 07/30/2024 8:30 AM EST Office Visit Hematology [place] [address] Yamileth Nur APRN [facility] [place] [address] 07/30/2024 10:00 AM EST Appointment Hematology [place] [address] 08/13/2024 8:00 AM EST Appointment Hematology [place] [address] 08/13/2024 9:00 AM EST Office Visit Hematology [place] [address] Rosalba Patel MD [facility] [place] [address] 08/13/2024 10:30 AM EST Appointment Hematology [place] [address] documented as of this encounter Visit Diagnoses Not on filedocumented in this encounter Care Teams Motorman/Woman Relationship Specialty Start Date End Date Nat Baker MD [address] [place] [place] [address] PCP - General 11/11/18 02/27/19 documented as of this encounter
--- OUTSIDE RECORDS SUMMARY | 2024-06-21 16:15 | XMS_ITS | Encounter Summary ---
[place] [address] Care Team Providers Care Landscaper Helper Name Role Phone Nat Baker MD Primary Care Provider [phone] Encounter Details Date Type Department Care Team (Late Contact Info) Description 08/06/2015 Orders Only Radiology and Cardiology Results [address] [place] [phone] Apd Conversion, Results Provider, Social History Tobacco [...] AM EST Appointment [place] [address] 07/02/2024 9:00 AM EST Office Visit [place] [address] Rosalba Patel MD [facility] [place] [address] 07/02/2024 10:30 AM EST Appointment [place] [address] 07/07/2024 10:30 AM EST TH Visit (TeleHealth) [place] [address] Hem/Onc, Clinic Pharmacist None 07/17/2024 9:00 AM EST Appointment [place] [address] 07/17/2024 10:00 AM EST Office Visit [place] [address] Rosalba Patel MD [facility] [place] [address] 07/17/2024 11:30 AM EST Appointment [place] [address] 07/30/2024 7:30 AM EST Appointment [place] [address] 07/30/2024 8:30 AM EST Office Visit [place] [address] Yamileth Nur APRN [facility] [place] [address] 07/30/2024 10:00 AM EST Appointment [place] [address] 08/13/2024 8:00 AM EST Appointment [place] [address] 08/13/2024 9:00 AM EST Office Visit [place] [address] Rosalba Patel MD [facility] [place] [address] 08/13/2024 10:30 AM EST Appointment [place] [address] documented as of this encounter Procedures Procedure Name Priority Date/Time Associated Diagnosis Comments LIPID PANEL (REFLEX DIRECT LDL) Routine 08/06/2015 documented in this encounter Results * (ABNORMAL) Lipid Panel (08/06/2015) Cholesterol/HDL Ratio [...] GUILLERMO VINSON ORDERABLES DORA ARRIAGA DAY CONVERSION documented in this encounter Visit Diagnoses Not on filedocumented in this encounter Care Teams Landscaper Helper Relationship Specialty Start Date End Date Nat Baker MD [address] [place] [place] [address] PCP - General 11/11/18 02/27/19 documented as of this encounter
--- OUTSIDE RECORDS SUMMARY | 2024-06-21 16:15 | XMS_ITS | Encounter Summary ---
[place] [address] Care Team Providers Care Lead Die Molder Name Role Phone Nat Baker MD Primary Care Provider [phone] Reason for Visit * Reason Comments Ankle Pain Encounter Details Date Type Department Care Team (Late st Contact Info) Description 08/02/2015 1:23 PM EST - 08/02/2015 2:38 PM EST [place] [address] Sprain of tibiofibular ligament of right ankle, [...] sent through Care Everywhere. * ANKLE SPRAIN (LIBYAN) documented in this encounter Medications at Time [...] Miscellaneous Notes * ED Triage - Jose Rivera, RN - 08/02/2015 1:16 PM EST 50y/o, [...] AM EST Appointment Hematology [place] [address] 07/02/2024 9:00 AM EST Office Visit Hematology [place] [address] Rosalba Patel MD [facility] [place] [address] 07/02/2024 10:30 AM EST Appointment Hematology [place] [address] 07/07/2024 10:30 AM EST TH Visit (TeleHealth) Hematology [place] [address] Hem/Onc, Clinic Pharmacist None 07/17/2024 9:00 AM EST Appointment Hematology [place] [address] 07/17/2024 10:00 AM EST Office Visit Hematology [place] [address] Rosalba Patel MD [facility] [place] [address] 07/17/2024 11:30 AM EST Appointment Hematology [place] [address] 07/30/2024 7:30 AM EST Appointment Hematology [place] [address] 07/30/2024 8:30 AM EST Office Visit Hematology [place] [address] Yamileth Nur APRN [facility] [place] [address] 07/30/2024 10:00 AM EST Appointment Hematology [place] [address] 08/13/2024 8:00 AM EST Appointment Hematology [place] [address] 08/13/2024 9:00 AM EST Office Visit Hematology [place] [address] Rosalba Patel MD [facility] [place] [address] 08/13/2024 10:30 AM EST Appointment Hematology and Oncology at [facility] [place] [address] documented as of this encounter Procedures Procedure Name Priority Date/Time Associated Diagnosis Comments XR ANKLE MIN 3 VIEWS RIGHT STAT 08/02/2015 1:52 PM EST documented in this encounter Results * XR Ankle Minimum 3 Views Right (GENERIC) (08/02/2015 1:52 PM EST) Anatomical Region Laterality Modality Ankle Right Digital Radiogra phy Addenda Addendum by Diana Crwes MD on 08/03/2015 5:05 PM EST CLINICAL [...] encounter documented in this encounter Care Teams Lead Die Molder Relationship Specialty Start Date End Date [place] [address] PCP - General 03/30/13 11/10/18 documented as of this encounter
--- OUTSIDE RECORDS SUMMARY | 2024-06-21 16:15 | XMS_ITS | Encounter Summary ---
[place] [address] Care Team Providers Care Second Facing Baster Name Role Phone Nat Baker MD Primary Care Provider [phone] Encounter Details Date Type Department Care Team (Late st Contact Info) Description 11/29/2018 10:55 PM EDT Ancillary Procedure Radiology at [facility] [address] [place] [address] Nat Baker MD [address] [facility] [address] [place] [address] Social History Tobacco Use Types Packs/Day Years [...] AM EST Appointment Hematology [place] [address] 07/02/2024 9:00 AM EST Office Visit Hematology [place] [address] Rosalba Patel MD [facility] [place] [address] 07/02/2024 10:30 AM EST Appointment Hematology [place] [address] 07/07/2024 10:30 AM EST TH Visit (TeleHealth) Hematology [place] [address] Hem/Onc, Clinic Pharmacist None 07/17/2024 9:00 AM EST Appointment Hematology [place] [address] 07/17/2024 10:00 AM EST Office Visit Hematology [place] [address] Rosalba Patel MD [facility] [place] [address] 07/17/2024 11:30 AM EST Appointment Hematology [place] [address] 07/30/2024 7:30 AM EST Appointment Hematology [place] [address] 07/30/2024 8:30 AM EST Office Visit Hematology [place] [address] Yamileth Nur APRN [facility] [place] [address] 07/30/2024 10:00 AM EST Appointment Hematology [place] [address] 08/13/2024 8:00 AM EST Appointment Hematology [place] [address] 08/13/2024 9:00 AM EST Office Visit Hematology [place] [address] Rosalba Patel MD [facility] [place] [address] 08/13/2024 10:30 AM EST Appointment Hematology [place] [address] documented as of this encounter Procedures Procedure Name Priority Date/Time Associated Diagnosis Comments FILM LIBRARY STORAGE ONLY CT HEAD AND SPINE Routine 11/29/2018 10:51 PM EDT documented in this encounter Results * Film Library- Storage Only CT Head And Spine (11/29/2018 10:51 PM EDT) Narrative [facility] - 11/29/2018 10:51 PM EDT This exam is auto-finalizing. It's purpose is for storage only. Nat Baker MD IMG FILM LIBRARY ORD ERABLES [place], [place] documented in this encounter Visit Diagnoses Not on filedocumented in this encounter Care Teams Second Facing Baster Relationship Specialty Start Date End Date Nat Baker MD [address] [place] [address] PCP - General 11/11/18 02/27/19 documented as of this encounter
--- OUTSIDE RECORDS SUMMARY | 2024-06-21 16:15 | XMS_ITS | Encounter Summary ---
Author Organization [facility] [place] [address] Care Team Providers Care Steel Die Printer Name Role Phone Nat Baker MD Primary Care Provider [phone] Encounter Details Date Type Department Care Team (Late Contact Info) Description 07/08/2014 Abstract Cherelle Jones Conversion Results [address] [place] [address] Apd Conversion, Flowsheet Provider, Social History Tobacco [...] AM EST Appointment Hematology [place] [address] 07/02/2024 9:00 AM EST Office Visit Hematology [place] [address] Rosalba Patel MD [facility] [place] [address] 07/02/2024 10:30 AM EST Appointment Hematology [place] [address] 07/07/2024 10:30 AM EST TH Visit (TeleHealth) Hematology [place] [address] Hem/Onc, Clinic Pharmacist None 07/17/2024 9:00 AM EST Appointment Hematology [place] [address] 07/17/2024 10:00 AM EST Office Visit Hematology [place] [address] Rosalba Patel MD [facility] [place] [address] 07/17/2024 11:30 AM EST Appointment Hematology [place] [address] 07/30/2024 7:30 AM EST Appointment Hematology [place] [address] 07/30/2024 8:30 AM EST Office Visit Hematology [place] [address] Yamileth Nur APRN [facility] [place] [address] 07/30/2024 10:00 AM EST Appointment Hematology [place] [address] 08/13/2024 8:00 AM EST Appointment Hematology [place] [address] 08/13/2024 9:00 AM EST Office Visit Hematology [place] [address] Rosalba Patel MD [facility] [place] [address] 08/13/2024 10:30 AM EST Appointment Hematology [place] [address] documented as of this encounter Visit Diagnoses Not on filedocumented in this encounter Care Teams Steel Die Printer Relationship Specialty Start Date End Date Nat Baker MD [address] [place] [address] PCP - General 11/11/18 02/27/19 documented as of this encounter
--- OUTSIDE RECORDS SUMMARY | 2024-06-21 16:15 | XMS_ITS | Encounter Summary ---
[place] [address] Care Team Providers Care Talent Development Consultant Name Role Phone Nat Baker MD Primary Care Provider [phone] Encounter Details Date Type Department Care Team (Late Contact Info) Description 08/06/2015 Orders Only Radiology and Cardiology Results [address] [place] [phone] Apd Conversion, Results Provider, Social History Tobacco [...] AM EST Appointment Hematology [place] [address] 07/02/2024 9:00 AM EST Office Visit Hematology [place] [address] Rosalba Patel MD [facility] [place] [address] 07/02/2024 10:30 AM EST Appointment Hematology [place] [address] 07/07/2024 10:30 AM EST TH Visit (TeleHealth) Hematology [place] [address] Hem/Onc, Clinic Pharmacist None 07/17/2024 9:00 AM EST Appointment Hematology [place] [address] 07/17/2024 10:00 AM EST Office Visit Hematology [place] [address] Rosalba Patel MD [facility] [place] [address] 07/17/2024 11:30 AM EST Appointment Hematology [place] [address] 07/30/2024 7:30 AM EST Appointment Hematology [place] [address] 07/30/2024 8:30 AM EST Office Visit Hematology [place] [address] Yamileth Nur APRN [facility] [place] [address] 07/30/2024 10:00 AM EST Appointment Hematology [place] [address] 08/13/2024 8:00 AM EST Appointment Hematology [place] [address] 08/13/2024 9:00 AM EST Office Visit Hematology [place] [address] Rosalba Patel MD [facility] [place] [address] 08/13/2024 10:30 AM EST Appointment Hematology [place] [address] documented as of this encounter Procedures Procedure Name Priority Date/Time Associated Diagnosis Comments U ALBUMIN/CRE RATIO Routine 08/06/2015 documented in this encounter Results * (ABNORMAL) U Albumin/Cre Ratio (08/06/2015) Albumin / Creatinin Ratio, Urine 5.0(Movie Projectionist al Lab) 0 - 29 DORA DAY CONVERSION Creatinine, Urine 130.2(Exte rnal Lab) DORA ARRIAGA DAY CONVERSION Albumin, Urine 6.6(Movie Projectionist al Lab) 0 - 20 DORA ARRIAGA DAY CONVERSION 08/06/2015 Results Provider Apd Conversion URINE ORDERABLES CONVERSION documented in this encounter Visit Diagnoses Not on filedocumented in this encounter Care Teams Talent Development Consultant Relationship Specialty Start Date End Date Nat Baker MD [address] [facility] [place] [address] PCP - General 11/11/18 02/27/19 documented as of this encounter
--- OUTSIDE RECORDS SUMMARY | 2024-06-21 16:15 | XMS_ITS | Encounter Summary ---
[place] [address] Care Team Providers Care Die Cleaner Name Role Phone Nat Baker MD Primary Care Provider [phone] Encounter Details Date Type Department Care Team (Late Contact Info) Description 04/28/2014 Abstract Cherelle Jones Conversion Results [address] [place] [address] Apd Conversion, Flowsheet Provider, Social History Tobacco [...] AM EST Appointment Hematology [place] [address] 07/02/2024 9:00 AM EST Office Visit Hematology [place] [address] Rosalba Patel MD [facility] [place] [address] 07/02/2024 10:30 AM EST Appointment Hematology [place] [address] 07/07/2024 10:30 AM EST TH Visit (TeleHealth) H[place]ology [place] [address] Hem/Onc, Clinic Pharmacist None 07/17/2024 9:00 AM EST Appointment Hematology [place] [address] 07/17/2024 10:00 AM EST Office Visit Hematology [place] [address] Rosalba Patel MD [facility] [place] [address] 07/17/2024 11:30 AM EST Appointment Hematology [place] [address] 07/30/2024 7:30 AM EST Appointment Hematology [place] [address] 07/30/2024 8:30 AM EST Office Visit Hematology [place] [address] Yamileth Nur APRN [facility] [place] [address] 07/30/2024 10:00 AM EST Appointment Hematology [place] [address] 08/13/2024 8:00 AM EST Appointment Hematology [place] [address] 08/13/2024 9:00 AM EST Office Visit Hematology [place] [address] Rosalba Patel MD [facility] [place] [address] 08/13/2024 10:30 AM EST Appointment Hematology [place] [address] documented as of this encounter Visit Diagnoses Not on filedocumented in this encounter Care Teams Die Cleaner Relationship Specialty Start Date End Date Nat Baker MD [address] [place] [place] [address] PCP - General 11/11/18 02/27/19 documented as of this encounter
--- OUTSIDE RECORDS SUMMARY | 2024-06-21 16:15 | XMS_ITS | Encounter Summary ---
[place] [address] Care Team Providers Care Die Attaching Machine Tender Name Role Phone Nat Baker MD Primary Care Provider [phone] Encounter Details Date Type Department Care Team (Late Contact Info) Description 08/06/2015 Orders Only Radiology and Cardiology Results [address] [place] [phone] Apd Conversion, Results Provider, Social History Tobacco [...] AM EST Appointment Hematology [place] [address] 07/02/2024 9:00 AM EST Office Visit [place]ematology [place] [address] Rosalba Patel MD [facility] [place] [address] 07/02/2024 10:30 AM EST Appointment Hematology [place] [address] 07/07/2024 10:30 AM EST TH Visit (TeleHealth) [place] [address] Hem/Onc, Clinic Pharmacist None 07/17/2024 9:00 AM EST Appointment [place] [address] 07/17/2024 10:00 AM EST Office Visit [place] [address] Rosalba Patel MD [facility] [place] [address] 07/17/2024 11:30 AM EST Appointment H[place] [address] 07/30/2024 7:30 AM EST Appointment [place] [address] 07/30/2024 8:30 AM EST Office Visit [place] [address] Yamileth Nur APRN [facility] [place] [address] 07/30/2024 10:00 AM EST Appointment H[place]ology [place] [address] 08/13/2024 8:00 AM EST Appointment [place] [address] 08/13/2024 9:00 AM EST Office Visit [place] [address] Rosalba Patel MD [facility] [place] [address] 08/13/2024 10:30 AM EST Appointment Hematology [place] [address] documented as of this encounter Procedures Procedure Name Priority Date/Time Associated Diagnosis Comments TSH Routine 08/06/2015 documented in this encounter Results * (ABNORMAL) TSH (08/06/2015) Thyroid Stimulating Hormone 2.040(Ext ernal Lab) 0.358 - 3.740 DORA JONES CONVERSION 08/06/2015 Results Provider Apd Conversion MD GUILLERMO VINSON ORDERABLES DORA JONES CONVERSION documented in this encounter Visit Diagnoses Not on filedocumented in this encounter Care Teams Die Attaching Machine Tender Relationship Specialty Start Date End Date Nat Baker MD [address] [place] [address] PCP - General 11/11/18 02/27/19 documented as of this encounter
--- OUTSIDE RECORDS SUMMARY | 2024-06-21 16:15 | XMS_ITS | Encounter Summary ---
[place] [address] Care Team Providers Care Chest Painting And Sealing Supervisor Name Role Phone Nat Baker MD Primary Care Provider [phone] Encounter Details Date Type Department Care Team (Late Contact Info) Description 04/30/2014 Orders Only Radiology and Cardiology Results [address] [place] [phone] Apd Conversion, Results Provider, Social History Tobacco [...] AM EST Appointment Hematology [place] [address] 07/02/2024 9:00 AM EST Office Visit Hematology [place] [address] Rosalba Patel MD [facility] [address] [place] [address] 07/02/2024 10:30 AM EST Appointment Hematology [place] [address] 07/07/2024 10:30 AM EST TH Visit (TeleHealth) Hematology [place] [address] Hem/Onc, Clinic Pharmacist None 07/17/2024 9:00 AM EST Appointment Hematology [place] [address] 07/17/2024 10:00 AM EST Office Visit Hematology [place] [address] Rosalba Patel MD [facility] [address] [place] [address] 07/17/2024 11:30 AM EST Appointment Hematology [place] [address] 07/30/2024 7:30 AM EST Appointment Hematology [place] [address] 07/30/2024 8:30 AM EST Office Visit Hematology [place] [address] Yamileth Nur APRN [facility] [address] [place]ICAL [place] [address] 07/30/2024 10:00 AM EST Appointment Hematology [place] [address] 08/13/2024 8:00 AM EST Appointment Hematology [place] [address] 08/13/2024 9:00 AM EST Office Visit Hematology [place] [address] Rosalba Patel MD [facility] [address] [place]ICAL [place] [address] 08/13/2024 10:30 AM EST Appointment Hematology [place] [address] documented as of this encounter Procedures Procedure Name Priority Date/Time Associated Diagnosis Comments VITAMIN D, 25-HYDROXY Routine 04/30/2014 documented in this encounter Results * (ABNORMAL) Vitamin D, 25-Hydroxy (04/30/2014) Vitamin D Total 25 OH 21.6(ExtL) 30.0 - 100.0 DORA JONES CONVERSION 04/30/2014 Results Provider Apd Conversion CHEMBlank VINSON ORDERABLES DORA JONES CONVERSION documented in this encounter Visit Diagnoses Not on filedocumented in this encounter Care Teams Chest Painting And Sealing Supervisor Relationship Specialty Start Date End Date Nat Baker MD [address] [place] [address] PCP - General 11/11/18 02/27/19 documented as of this encounter
--- OUTSIDE RECORDS SUMMARY | 2024-06-21 16:15 | XMS_ITS | Encounter Summary ---
[place] [address] Care Team Providers Care Manager Test Name Role Phone Nat Baker MD Primary Care Provider [phone] Encounter Details Date Type Department Care Team (Late Contact Info) Description 11/29/2018 11:05 PM EDT Ancillary Procedure Radiology at [facility] [address] [place] [address] Nat Baker MD 10 [facility] [place] [address] Social History Tobacco Use Types Packs/Day Years [...] AM EST Appointment Hematology [place] [address] 07/02/2024 9:00 AM EST Office Visit Hematology [place] [address] Rosalba Patel MD [facility] [place] [address] 07/02/2024 10:30 AM EST Appointment Hematology [place] [address] 07/07/2024 10:30 AM EST TH Visit (TeleHealth) Hematology [place] [address] Hem/Onc, Clinic Pharmacist None 07/17/2024 9:00 AM EST Appointment Hematology [place] [address] 07/17/2024 10:00 AM EST Office Visit Hematology [place] [address] Rosalba Patel MD [facility] [place] [address] 07/17/2024 11:30 AM EST Appointment Hematology [place] [address] 07/30/2024 7:30 AM EST Appointment Hematology [place] [address] 07/30/2024 8:30 AM EST Office Visit Hematology [place] [address] Yamileth Nur APRN [facility] [place] [address] 07/30/2024 10:00 AM EST Appointment Hematology [place] [address] 08/13/2024 8:00 AM EST Appointment Hematology [place] [address] 08/13/2024 9:00 AM EST Office Visit Hematology [place] [address] Rosalba Ptael MD [facility] [place] [address] 08/13/2024 10:30 AM EST Appointment Hematology and Oncology at [facility] [place] [address] documented as of this encounter Procedures Procedure Name Priority Date/Time Associated Diagnosis Comments FILM LIBRARY STORAGE ONLY MR SPINE Routine 11/29/2018 10:55 PM EDT documented in this encounter Results * Film Library- Storage Only MR Spine (11/29/2018 10:55 PM EDT) Narrative [facility] - 11/29/2018 10:55 PM EDT This exam is auto-finalizing. It's purpose is for storage only. Nat Baker MD IMG FILM LIBRARY ORD ERABLES Performing Organization Address City/State/[facility] Co de Phone Number [place], [place] documented in this encounter Visit Diagnoses Not on filedocumented in this encounter Care Teams Manager Test Relationship Specialty Start Date End Date Nat Baker MD [address] [place] [address] PCP - General 11/11/18 02/27/19 documented as of this encounter
--- OUTSIDE RECORDS SUMMARY | 2024-06-21 16:15 | XMS_ITS | Encounter Summary ---
[place] [address] Care Team Providers Care Clothes Wringer Name Role Phone Nat Baker MD Primary Care Provider [phone] Encounter Details Date Type Department Care Team (Late Contact Info) Description 08/06/2015 Orders Only Radiology and Cardiology Results [address] [place] [phone] Apd Conversion, Results Provider, Social History Tobacco [...] AM EST Appointment Hematology [place] [address] 07/02/2024 9:00 AM EST Office Visit Hematology [place] [address] Rosalba Patel MD [facility] [place] [address] 07/02/2024 10:30 AM EST Appointment Hematology [place] [address] 07/07/2024 10:30 AM EST TH Visit (TeleHealth) Hematology [place] [address] Hem/Onc, Clinic Pharmacist None 07/17/2024 9:00 AM EST Appointment Hematology [place] [address] 07/17/2024 10:00 AM EST Office Visit Hematology [place] [address] Rosalba Patel MD [facility] [place] [address] 07/17/2024 11:30 AM EST Appointment Hematology [place] [address] 07/30/2024 7:30 AM EST Appointment Hematology [place] [address] 07/30/2024 8:30 AM EST Office Visit Hematology [place] [address] Yamileth Nur APRN [facility] [place] [address] 07/30/2024 10:00 AM EST Appointment Hematology [place] [address] 08/13/2024 8:00 AM EST Appointment Hematology [place] [address] 08/13/2024 9:00 AM EST Office Visit Hematology [place] [address] Rosalba Patel MD [facility] [place] [address] 08/13/2024 10:30 AM EST Appointment Hematology [place] [address] documented as of this encounter Procedures Procedure Name Priority Date/Time Associated Diagnosis Comments VITAMIN D, 25-HYDROXY Routine 08/06/2015 documented in this encounter Results * (ABNORMAL) Vitamin D, 25-Hydroxy (08/06/2015) Vitamin D Total 25 OH 18.4(ExtL) 30.0 - 100.0 DORA JONES CONVERSION 08/06/2015 Results Provider Apd Conversion CHEMBlank VINSON ORDERABLES DORA JONES CONVERSION documented in this encounter Visit Diagnoses Not on filedocumented in this encounter Care Teams Clothes Wringer Relationship Specialty Start Date End Date Nat Baker MD [address] [place] [place] [address] PCP - General 11/11/18 02/27/19 documented as of this encounter
--- OUTSIDE RECORDS SUMMARY | 2024-06-21 16:15 | XMS_ITS | Encounter Summary ---
Author Organization [facility] [place] [address] Care Team Providers Care Devops Name Role Phone Nat Baker MD Primary Care Provider [phone] Encounter Details Date Type Department Care Team (Late Contact Info) Description 10/17/2019 12:05 AM EDT Ancillary Procedure Radiology Library at [facility] [place] [address] Nat Nicolas, COMPRESS TRUCKER [address] [place] [address] Social History Tobacco Use Types Packs/Day Years [...] AM EST Appointment Hematology [place] [address] 07/02/2024 9:00 AM EST Office Visit Hematology [place] [address] Rosalba Patel MD [facility] [address] MEDICAL [place], [place] [address] 07/02/2024 10:30 AM EST Appointment Hematology [place] [address] 07/07/2024 10:30 AM EST TH Visit (TeleHealth) Hematology [place] [address] Hem/Onc, Clinic Pharmacist None 07/17/2024 9:00 AM EST Appointment Hematology [place] [address] 07/17/2024 10:00 AM EST Office Visit Hematology [place] [address] Rosalba Patel MD [facility] [place] [place] [address] 07/17/2024 11:30 AM EST Appointment Hematology [place] [address] 07/30/2024 7:30 AM EST Appointment Hematology [place] [address] 07/30/2024 8:30 AM EST Office Visit Hematology [place] [address] Yamileth Nur APRN [facility] [place] [place] [address] 07/30/2024 10:00 AM EST Appointment Hematology [place] [address] 08/13/2024 8:00 AM EST Appointment Hematology [place] [address] 08/13/2024 9:00 AM EST Office Visit Hematology [place] [address] Rosalba Patel MD [facility] [place] [place] [address] 08/13/2024 10:30 AM EST Appointment Hematology and Oncology at [facility] [place] [address] documented as of this encounter Procedures Procedure Name Priority Date/Time Associated Diagnosis Comments FILM LIBRARY-STORAGE ONLY US BREAST Routine 10/17/2019 12:05 AM EDT documented in this encounter Results * Film Library Storage Only US Breast (10/17/2019 12:05 AM EDT) Narrative [facility] - 03/10/2024 7:23 AM EDT This exam is auto-finalizing. It's purpose is for storage only. Nat Nicolas COMPRESS TRUCKER IMG FILM LAKSHMI RY ORDERABLES [place], [place] documented in this encounter Visit Diagnoses Not on filedocumented in this encounter Care Teams Devops Relationship Specialty Start Date End Date Nat Baker MD [address] [place] [address] PCP - General Family Medicine 02/28/19 05/02/20 documented as of this encounter
--- OUTSIDE RECORDS SUMMARY | 2024-06-21 16:15 | XMS_ITS | Encounter Summary ---
[place] [address] Care Team Providers Care Precise Winder Name Role Phone Nat Baker MD Primary Care Provider [phone] Encounter Details Date Type Department Care Team (Late Contact Info) Description 04/30/2014 Orders Only Radiology and Cardiology Results [address] [place] [phone] Apd Conversion, Results Provider, Social History Tobacco [...] AM EST Appointment Hematology [place] [address] 07/02/2024 9:00 AM EST Office Visit Hematology [place] [address] Rosalba Patel MD [facility] [place] [address] 07/02/2024 10:30 AM EST Appointment Hematology [place] [address] 07/07/2024 10:30 AM EST TH Visit (TeleHealth) Hematology [place] [address] Hem/Onc, Clinic Pharmacist None 07/17/2024 9:00 AM EST Appointment Hematology [place] [address] 07/17/2024 10:00 AM EST Office Visit Hematology [place] [address] Rosalba Patel MD [facility] [place] [address] 07/17/2024 11:30 AM EST Appointment Hematology [place] [address] 07/30/2024 7:30 AM EST Appointment Hematology [place] [address] 07/30/2024 8:30 AM EST Office Visit Hematology [place] [address] Yamileth Nur APRN [facility] [place] [address] 07/30/2024 10:00 AM EST Appointment Hematology [place] [address] 08/13/2024 8:00 AM EST Appointment Hematology [place] [address] 08/13/2024 9:00 AM EST Office Visit [place]ematology [place] [address] Rosalba Patel MD [facility] [place] [address] 08/13/2024 10:30 AM EST Appointment Hematology [place] [address] documented as of this encounter Procedures Procedure Name Priority Date/Time Associated Diagnosis Comments TSH Routine 04/30/2014 documented in this encounter Results * (ABNORMAL) TSH (04/30/2014) Thyroid Stimulating Hormone 1.040(Ext ernal Lab) 0.358 - 3.74 DORA JONES CONVERSION 04/30/2014 Results Provider Apd Conversion MD GUILLERMO VINSON ORDERABLES DORA JONES CONVERSION documented in this encounter Visit Diagnoses Not on filedocumented in this encounter Care Teams Precise Winder Relationship Specialty Start Date End Date Nat Baker MD [address] [place] [address] PCP - General 11/11/18 02/27/19 documented as of this encounter
--- OUTSIDE RECORDS SUMMARY | 2024-06-21 16:15 | XMS_ITS | Encounter Summary ---
[place] [address] Care Team Providers Care Chief Wheelage Clerk Name Role Phone Nat Baker MD Primary Care Provider Reason for Visit * Reason Comments Dizziness Encounter Details Date Type Department Care Team (Late st Contact Info) Description 08/03/2013 2:48 PM EST - 08/03/2013 5:29 PM EST [place] [phone] Stew Simpson Jr., MD [facility] [address] [place] [address] Vertigo; Atypical chest pain Discharge Disposition: Home [...] with meclizine. S3 or chest discomfort, we agpek-omwl-eqs low risk for heart attack or a decreased blood flow to your heart but with that said you should followup with your primary care physician and return to the emergency department of your symptoms worsen. * Attachments The following attachments cannot be sent through Care Everywhere. * CHEST PAIN: AFTER YOUR VISIT TO THE EMERGENCY ROOM (BELGIAN) * VERTIGO: AFTER YOUR VISIT (BELGIAN) documented in this encounter Medications at Time of Discharge Medication Sig Dispensed Refills Start Date End Date lisinopril (PRINIVIL;ZESTRIL) 20 mg tablet Take 20 mg by mouth daily. 40MG atenolol (TENORMIN) 25 mg tablet Take 25 mg by mouth daily. meclizine (ANTIVERT) 25 mg tablet Take 1 [...] negative troponin. Stew Simpson Jr., MD 08/03/13 2219 * Stew Moeller RN - 08/03/2013 5:29 PM EST Pt released with instructions. * Stew Moeller RN - 08/03/2013 5:13 PM EST Pt is feeling better after her zofran. She is continuing to have some twinges of chest discomfort. Pt is awake, alert and oriented x 3. Skin color is pink warm and dry. Pt is on the city planning engineer showing a NSR. Respirations are regular. * [...] pink warm and dry. Ptis on the city planning engineer showing a NSR. Respirations are regular. Breath sounds are clear and equal bilaterally. documented in this encounter Miscellaneous Notes * Discharge Summary - Provider, Scanning - 08/04/2013 9:28 AM EST * Miscellaneous - Provider, Scanning - 08/03/2013 3:38 PM EST * ED Triage - Stew Moeller, RN - 08/03/2013 2:52 PM EST Pt [...] EST Appointment Hematology [place] [address] 07/02/2024 9:00 AM EST Office Visit Hematology [place] [address] Rosalba Patel MD [facility] [place] [address] 07/02/2024 10:30 AM EST Appointment Hematology [place] [address] 07/07/2024 10:30 AM EST TH Visit (TeleHealth) Hematology [place] [address] Hem/Onc, Clinic Pharmacist None 07/17/2024 9:00 AM EST Appointment Hematology [place] [address] 07/17/2024 10:00 AM EST Office Visit Hematology [place] [address] Rosalba Patel MD [facility] [place] [address] 07/17/2024 11:30 AM EST Appointment Hematology [place] [address] 07/30/2024 7:30 AM EST Appointment Hematology [place] [address] 07/30/2024 8:30 AM EST Office Visit Hematology [place] [address] Yamileth Nur APRN [facility] [place] [address] 07/30/2024 10:00 AM EST Appointment Hematology [place] [address] 08/13/2024 8:00 AM EST Appointment Hematology [place] [address] 08/13/2024 9:00 AM EST Office Visit Hematology [place] [address] Rosalba Patel MD [facility] [place] [address] 08/13/2024 10:30 AM EST Appointment Hematology [place] [address] documented as of this encounter Procedures Procedure Name Priority Date/Time Associated Diagnosis Comments EKG 12-LEAD STAT 08/03/2013 4:32 PM EST BLUE TUBE HOLD STAT 08/03/2013 4:00 PM EST LAVENDER TUBE HOLD STAT 08/03/2013 4: 00 PM EST TROPONIN STAT 08/03/2013 4:00 PM EST documented in this encounter Results * EKG 12 Lead (08/03/2013 4:32 PM EST) Ventricular rate 70 BPM MUSE SYSTEM Atrial Rate 70 BPM MUSE SYSTEM P-R Interval 148 ms MUSE SYSTEM QRS Duration 80 ms MUSE SYSTEM Q-T Interval 406 ms MUSE SYSTEM QTC Calculated (Bezet) 438 ms MUSE SYSTEM Calculated P [place] 27 degrees MUSE SYSTEM Calculated R [place] 19 degrees MUSE SYSTEM Calculated T [place] -3 degrees MUSE SYSTEM INTERPRETATION Normal sinus rhythm Normal ECG When compared with ECG of 08-MAR-1993 12:08, Inverted T waves have replaced nonspecific T wave abnormality in Inferior leads Confirmed by MD Russell, Guillermo ([id number]) on 08/04/2013 6:16:59 AM MUSE SYSTEM 08/03/2013 4:32 PM EST 08/04/2013 6:16 AM EST Stew Simpson Jr., MD ECG ORDERABLES Performing Organization Address [facility] Co [place] Phone Number MUSE SYSTEM * Lavender Tube HOLD (08/03/2013 4:00 PM EST) Pathologist [facility] Lavender Hold Sample in lab. HILLARY DUBON Blood specimen (specimen) 08/03/2013 4:00 PM EST 08/03/2013 4:21 PM EST Stew Simpson Jr., MD HEMATOLOGY ORDERAB LES Performing Organization Address [facility] de Phone Number HILLARY DUBON * Blue Tube HOLD (08/03/2013 4:00 PM EST) Pathologist [facility] Blue Hold Sample in lab. HILLARY HAYESIUM Blood specimen (specimen) 08/03/2013 4:00 PM EST 08/03/2013 4:21 PM EST Stew Simpson Jr., MD HEMATOLOGY ORDERAB LES Performing Organization Address City/[facility] Co de Phone Number HILLARY HAYESIUM * Troponin T (08/03/2013 4:00 PM EST) Pathologist [facility] Troponin-T <0.03 <=0.03 ng/mL HILLARY DUBON Comment: 0.03 ng/mL: Represents the 99th percentile upper reference limit for normals. >0.03 ng/mL: Elevated cardiac troponin T level indicative of myocardial damage. Diagnosis of acute, evolving or recent DE requires a typical rise and gradual fall [...] consensus document of the Joint Society of Cardiology/[place] College of Cardiology Committee for the redefinition of myocardial infarction. ??Journal of the [place] College of Cardiology 2000; 36: 959-969] Blood specimen (specimen) 08/03/2013 4:00 PM EST 08/03/2013 4:20 PM EST Narrative Resulting Agency Comment Spec In Lab Stew Simpson Jr., MD CHEMISTRY ORDERABL ES [facility] documented in this encounter Visit Diagnoses [...] RN) documented in this encounter Care Teams Chief Wheelage Clerk Relationship Specialty Start Date End Date Nat Baker MD [address] [place] [address] PCP - General 03/30/13 11/10/18 documented as of this encounter
--- OUTSIDE RECORDS SUMMARY | 2024-06-21 16:15 | XMS_ITS | Encounter Summary ---
Author Organization [facility] [place] [address] Care Team Providers Care Supervisor Sheet Manufacturing Name Role Phone Nat Baker MD Primary Care Provider [phone] Encounter Details Date Type Department Care Team (Late st Contact Info) Description 09/11/2013 Interpretation Only Radiology [address] [place] [address] [place] [address] Unknown None Social History Tobacco Use Types [...] AM EST Appointment Hematology [place] [address] 07/02/2024 9:00 AM EST Office Visit Hematology [place] [address] Rosalba Patel MD [facility] [place] [address] 07/02/2024 10:30 AM EST Appointment Hematology [place] [address] 07/07/2024 10:30 AM EST TH Visit (TeleHealth) Hematology and Oncology at [place] [phone] Hem/Onc, Clinic Pharmacist None 07/17/2024 9:00 AM EST Appointment Hematology [place] [address] 07/17/2024 10:00 AM EST Office Visit Hematology and Oncology at [place] [phone] Rosalba Patel MD [facility] [place] [address] 07/17/2024 11:30 AM EST Appointment Hematology [place] [address] 07/30/2024 7:30 AM EST Appointment Hematology and Oncology at [place] [phone] 07/30/2024 8:30 AM EST Office Visit Hematology and Oncology at [place] [phone] Yamileth Nur APRN [facility] [place] [address] 07/30/2024 10:00 AM EST Appointment Hematology [place] [address] 08/13/2024 8:00 AM EST Appointment Hematology [place] [address] 08/13/2024 9:00 AM EST Office Visit Hematology [place] [address] Rosalba Patel MD [facility] [place] [address] 08/13/2024 10:30 AM EST Appointment Hematology [place] [address] documented as of this encounter Procedures Procedure [...] 9:14 AM EST APD Historical Result Principal Entry Level Management: ??DASH ??CHRISTIANE CERVICAL SPINE: INDICATION: ??Neck pain and has [...] are radicular symptoms, MRI may be beneficial. Dash Grande DO ALEE/bunny [id number] CC: Procedure Note Unknown - 01/20/2019 APD Historical Result Principal Entry Level Management: DASH GRANDE CERVICAL SPINE: INDICATION: Neck pain and [...] there are radicularsymptoms, MRI may be beneficial. Dash Grande DO Reji [id number] CC: Unknown IMG DX ORDERABLES documented in this encounter Visit Diagnoses Not on filedocumented in this encounter Care Teams Supervisor Sheet Manufacturing Relationship Specialty Start Date End Date Nat Baker MD [address] [place] [address] PCP - General 11/11/18 02/27/19 documented as of this encounter
--- OUTSIDE RECORDS SUMMARY | 2024-06-21 16:15 | XMS_ITS | Encounter Summary ---
[place] [address] Care Team Providers Care Length Control Tester Name Role Phone Nat Baker MD Primary Care Provider [phone] Encounter Details Date Type Department Care Team (Late Contact Info) Description 11/29/2018 11:00 PM EDT Ancillary Procedure Radiology at [facility] [address] [place] [address] Nat Baker MD [address] [facility] [place] [address] Social History Tobacco Use Types Packs/Day Years [...] AM EST Appointment Hematology [place] [address] 07/02/2024 9:00 AM EST Office Visit Hematology [place] [address] Rosalba Patel MD [facility] [place] [address] 07/02/2024 10:30 AM EST Appointment Hematology [place] [address] 07/07/2024 10:30 AM EST TH Visit (TeleHealth) Hematology [place] [address] Hem/Onc, Clinic Pharmacist None 07/17/2024 9:00 AM EST Appointment Hematology [place] [address] 07/17/2024 10:00 AM EST Office Visit Hematology [place] [address] Rosalba Patel MD [facility] [place] [address] 07/17/2024 11:30 AM EST Appointment Hematology [place] [address] 07/30/2024 7:30 AM EST Appointment Hematology [place] [address] 07/30/2024 8:30 AM EST Office Visit Hematology [place] [address] Yamileth Nur APRN [facility] [place] [address] 07/30/2024 10:00 AM EST Appointment Hematology [place] [address] 08/13/2024 8:00 AM EST Appointment Hematology [place] [address] 08/13/2024 9:00 AM EST Office Visit Hematology [place] [address] Rosalba Patel MD [facility] [place] [address] 08/13/2024 10:30 AM EST Appointment Hematology and Oncology at [facility] [place] [address] documented as of this encounter Procedures Procedure Name Priority Date/Time Associated Diagnosis Comments FILM LIBRARY STORAGE ONLY CT CHEST Routine 11/29/2018 10:51 PM EDT documented in this encounter Results * Film Library- Storage Only CT Chest (11/29/2018 10:51 PM EDT) Narrative [facility] - 11/29/2018 10:51 PM EDT This exam is auto-finalizing. It's purpose is for storage only. Nat Baker MD G FILM LIBRARY ORD ERABLES Performing Organization Address City/State/[facility] Co de Phone Number [place], [place] documented in this encounter Visit Diagnoses Not on filedocumented in this encounter Care Teams Length Control Tester Relationship Specialty Start Date End Date Nat Baker MD [address] [place] [address] PCP - General 11/11/18 02/27/19 documented as of this encounter
--- OUTSIDE RECORDS SUMMARY | 2024-06-21 16:15 | XMS_ITS | Encounter Summary ---
[place] [address] Care Team Providers Care Area Forester Name Role Phone Nat Baker MD Primary Care Provider Reason for Visit * Reason Comments Dental Pain Encounter Details Date Type Department Care Team (Late st Contact Info) Description 03/30/2013 4:19 PM EDT - 03/30/2013 6:15 PM EDT [place] [address] Stew Lira PA [facility] [place] [address] Brian Rios MD [facility] [place] [address] Broken tooth (Primary Dx) Discharge Disposition: Home [...] see handouts Alternatives for Dental Care in [place] and Low Cost Dental Clinics. #4. Follow up in the Emergency Dept. As needed. * Attachments The following attachments cannot be sent through Care Everywhere. * BROKEN TOOTH: AFTER YOUR VISIT (SLOVENIAN) documented in this encounter Medications at Time [...] out for Alternatives in Dental Care in [place] and Low cost Dental Clinics. ED Course: [...] AM EST Appointment Hematology [place] [address] 07/02/2024 9:00 AM EST Office Visit Hematology [place] [address] Rosalba Patel MD [facility] [place] [address] 07/02/2024 10:30 AM EST Appointment Hematology [place] [address] 07/07/2024 10:30 AM EST TH Visit (TeleHealth) Hematology and Oncology at [place] [phone] Hem/Onc, Clinic Pharmacist None 07/17/2024 9:00 AM EST Appointment Hematology [place] [address] 07/17/2024 10:00 AM EST Office Visit Hematology and Oncology at [place] [phone] Rosalba Patel MD [facility] [place] [address] 07/17/2024 11:30 AM EST Appointment Hematology [place] [address] 07/30/2024 7:30 AM EST Appointment Hematology [place] [address] 07/30/2024 8:30 AM EST Office Visit Hematology and Oncology at [place] [phone] Yamileth Nur APRN [facility] [place] [address] 07/30/2024 10:00 AM EST Appointment Hematology [place] [address] 08/13/2024 8:00 AM EST Appointment Hematology [place] [address] 08/13/2024 9:00 AM EST Office Visit Hematology [place] [address] Rosalba Patel MD [facility] [place] [address] 08/13/2024 10:30 AM EST Appointment Hematology [place] [address] documented as of this encounter Visit Diagnoses Diagnosis Broken tooth- Primary Open wound of tooth (broken) (fractured) (due to trauma), without mention of complication documented in this encounter Care Teams Area Forester Relationship Specialty Start Date End Date [place] [address] PCP - General 03/30/13 11/10/18 documented as of this encounter
--- OUTSIDE RECORDS SUMMARY | 2024-06-21 16:15 | XMS_ITS | Encounter Summary ---
[place] [address] Care Team Providers Care Fitness Management Director Name Role Phone Nat Baker MD Primary Care Provider [phone] Reason for Visit * Reason Comments Shoulder Pain Encounter Details Date Type Department Care Team (Late st Contact Info) Description 01/24/2015 11:12 AM EDT - 01/24/2015 1:04 PM EDT [place] [address] Orville Martinez MD [facility] [place] [address] Osteoarthritis of right shoulder, unspecified osteoarthritis type [...] encounter Discharge Instructions * Discharge Instructions* Kavita Cotton APRN - 01/24/2015 12:58 PM EDT Images from the original note were not included. [facility] Osteoarthritis: After Your Visit Your Care [...] your doctor if you can take an cogg-krh-zbvakly medicine. When should you call for help? [...] more? Visit our health information library at [email or web address] You can also view health information on [employer], your personal patient account. Log in or sign up today. Enter U459 in the search box to learn more about Osteoarthritis: After Your Visit. ?? [phone] [employer]. Care instructions adapted under license by [facility]. This care instruction is for use with your licensed healthcare professional. If you have questions about a medical condition or this instruction, always ask your healthcare professional. [employer] disclaims any warranty or liability for your use of this information. Content Version: 10.4.063092; Current as of: March 31, 2014 documented in this encounter Medications at Time of Discharge Medication Sig Dispensed Refills Start Date End Date lisinopril (PRINIVIL;ZESTRIL) 20 mg tablet Take 20 mg by mouth daily. 40MG atenolol (TENORMIN) 25 mg tablet Take 25 mg by mouth daily. 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 Reports right shoulder pain that has flaired [...] with use of thatjoint. 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 Distal CSM intact. documented in this encounter Plan of Treatment Upcoming Encounters Date Type Department Care Team (Late st Contact Info) Description 07/02/2024 8:00 AM EST Appointment Hematology and Oncology at [place] [phone] 07/02/2024 9:00 AM EST Office Visit Hematology [place] [address] Rosalba Patel MD [facility] [place] [address] 07/02/2024 10:30 AM EST Appointment Hematology [place] [address] 07/07/2024 10:30 AM EST TH Visit (TeleHealth) [place]emat[place] [address] Hem/Onc, Clinic Pharmacist None 07/17/2024 9:00 AM EST Appointment Hematology [place] [address] 07/17/2024 10:00 AM EST Office Visit Hematology [place] [address] Rosalba Patel MD [facility] [place] [address] 07/17/2024 11:30 AM EST Appointment Hematology [place] [address] 07/30/2024 7:30 AM EST Appointment Hematology [place] [address] 07/30/2024 8:30 AM EST Office Visit Hematology [place] [address] Yamileth Nur APRN [facility] [place] [address] 07/30/2024 10:00 AM EST Appointment Hematology [place] [address] 08/13/2024 8:00 AM EST Appointment Hematology [place] [address] 08/13/2024 9:00 AM EST Office Visit Hematology [place] [address] Rosalba Patel MD [facility] [place] [address] 08/13/2024 10:30 AM EST Appointment Hematology [place] [address] documented as of this encounter Procedures Procedure [...] type documented in this encounter Care Teams Fitness Management Director Relationship Specialty Start Date End Date Nat Baker MD [place] [address] PCP - General 03/30/13 11/10/18 documented as of this encounter
--- OUTSIDE RECORDS SUMMARY | 2024-06-21 16:15 | XMS_ITS | Encounter Summary ---
Author Organization [facility] [place] [address] Care Team Providers Care Knife Operator Name Role Phone Nat Baker MD Primary Care Provider [phone] Encounter Details Date Type Department Care Team (Late Contact Info) Description 06/21/2014 Interpretation Only Radiology [address] [place] [address] [place] [address] Unknown None Social History Tobacco Use Types [...] AM EST Appointment H[place]ology [place] [address] 07/02/2024 9:00 AM EST Office Visit [place] [address] Rosalba Patel MD [facility] [place] [address] 07/02/2024 10:30 AM EST Appointment [place] [address] 07/07/2024 10:30 AM EST TH Visit (TeleHealth) Hematology and Oncology at [place] [phone] Hem/Onc, Clinic Pharmacist None 07/17/2024 9:00 AM EST Appointment [place] [address] 07/17/2024 10:00 AM EST Office Visit Hematology and Oncology at [place] [phone] Rosalba Patel MD [facility] [place] [address] 07/17/2024 11:30 AM EST Appointment [place] [address] 07/30/2024 7:30 AM EST Appointment Hematology and Oncology at [place] [phone] 07/30/2024 8:30 AM EST Office Visit Hematology and Oncology at [place] [phone] Yamileth Nur APRN [facility] [place] [address] 07/30/2024 10:00 AM EST Appointment [place] [address] 08/13/2024 8:00 AM EST Appointment [place] [address] 08/13/2024 9:00 AM EST Office Visit [place] [address] Rosalba Patel MD [facility] [place] [address] 08/13/2024 10:30 AM EST Appointment [place] [address] documented as of this encounter Procedures Procedure Name Priority Date/Time Associated Diagnosis Comments XR KNEE AP LAT AXIAL PATELLA RIGHT Routine 06/21/2014 11:54 AM EST documented in this encounter Results * XR Knee 3 Views Right (06/21/2014 11:54 AM EST) Anatomical Region Laterality Modality Knee Right Radiographic Re ging 06/21/2014 11:5 4 AM EST Narrative 06/21/2014 11:54 AM EST APD Historical Result Principal Vat Cleaner: ??ADARSH ?STEFANIE RIGHT KNEE - THREE VIEWS: HISTORY: ??Traumatic injury. AP, lateral, and sunrise views of the right knee are obtained. ??The lateral view is obtained in cross-table supine position. FINDINGS: There is mild marginal osteophyte formation. ??Patella is in anatomic alignment. ??No fracture or dislocation is demonstrated. IMPRESSION: Mild degenerative change. Adarsh Nascimento MD [facility] [id number] CC: Procedure Note Unknown - 01/20/2019 APD Historical Result Principal Vat Cleaner: ADARSH NASCIMENTO RIGHT KNEE - THREE VIEWS: HISTORY: Traumatic injury. AP, lateral, and sunrise views of the right knee are obtained. Thelateral view is obtained in cross-table supine position. FINDINGS: There is mild marginal osteophyte formation. Patella is in anatomicalignment. No fracture or dislocation is demonstrated. IMPRESSION: Mild degenerative change. Adarsh Nascimento MD [facility] [id number] CC: Unknown IMG DX ORDERABLES documented in this encounter Visit Diagnoses Not on filedocumented in this encounter Care Teams Knife Operator Relationship Specialty Start Date End Date Nat Baker MD [address] [place] [address] PCP - General 11/11/18 02/27/19 documented as of this encounter
--- OUTSIDE RECORDS SUMMARY | 2024-06-21 16:15 | XMS_ITS | Encounter Summary ---
[place] [address] Care Team Providers Care Glazier Artist Name Role Phone Nat Baker MD Primary Care Provider [phone] Encounter Details Date Type Department Care Team (Late Contact Info) Description 04/30/2014 Orders Only Radiology and Cardiology Results [address] [place] [phone] Apd Conversion, Results Provider, Social History Tobacco [...] AM EST Appointment Hematology [place] [address] 07/02/2024 9:00 AM EST Office Visit [place]emat[place] [address] Rosalba Patel MD [facility] [place] [address] 07/02/2024 10:30 AM EST Appointment Hemat[place] [address] 07/07/2024 10:30 AM EST TH Visit (TeleHealth) [place] [address] Hem/Onc, Clinic Pharmacist None 07/17/2024 9:00 AM EST Appointment H[place] [address] 07/17/2024 10:00 AM EST Office Visit [place]ology [place] [address] Rosalba Patel MD [facility] [place] [address] 07/17/2024 11:30 AM EST Appointment H[place] [address] 07/30/2024 7:30 AM EST Appointment Hemat[place] [address] 07/30/2024 8:30 AM EST Office Visit [place]ology [place] [address] Yamileth Nur APRN [facility] [place] [address] 07/30/2024 10:00 AM EST Appointment Hematology [place] [address] 08/13/2024 8:00 AM EST Appointment Hematology [place] [address] 08/13/2024 9:00 AM EST Office Visit [place] [address] Rosalba Patel MD [facility] [place] [address] 08/13/2024 10:30 AM EST Appointment H[place]ology [place] [address] documented as of this encounter Procedures Procedure Name Priority Date/Time Associated Diagnosis Comments HEMOGLOBIN A1C Routine 04/30/2014 documented in this encounter Results * (ABNORMAL) Hemoglobin A1c (04/30/2014) Estimated Average Glucose 148.5(ExtH ) 82.5 - 116.9 DORA ARRIAGA DAY CONVERSION Hemoglobin A1c 6.8(ExtH) 4.5 - 6.2 DORA ARRIAGA CONVERSION 04/30/2014 Results Provider Apd Conversion MD GUILLERMO VINSON ORDERABLES DORA JONES CONVERSION documented in this encounter Visit Diagnoses Not on filedocumented in this encounter Care Teams Glazier Artist Relationship Specialty Start Date End Date Nat Baker MD [address] [place] [address] PCP - General 11/11/18 02/27/19 documented as of this encounter
--- OUTSIDE RECORDS SUMMARY | 2024-06-21 16:15 | XMS_ITS | Encounter Summary ---
Author Organization [facility] [place] [address] Care Team Providers Care Molding Machine Setter Name Role Phone Nat Baker MD Primary Care Provider [phone] Encounter Details Date Type Department Care Team (Late Contact Info) Description 08/04/2015 Abstract Cherelle Jones Conversion Results [address] [place] [address] Apd Conversion, Flowsheet Provider, Social History Tobacco [...] AM EST Appointment Hematology [place] [address] 07/02/2024 9:00 AM EST Office Visit Hematology [place] [address] Rosalba Patel MD [facility] [place] [address] 07/02/2024 10:30 AM EST Appointment Hematology [place] [address] 07/07/2024 10:30 AM EST TH Visit (TeleHealth) Hematology [place] [address] Hem/Onc, Clinic Pharmacist None 07/17/2024 9:00 AM EST Appointment Hematology [place] [address] 07/17/2024 10:00 AM EST Office Visit Hematology [place] [address] Rosalba Patel MD [facility] [place] [address] 07/17/2024 11:30 AM EST Appointment Hematology [place] [address] 07/30/2024 7:30 AM EST Appointment Hematology [place] [address] 07/30/2024 8:30 AM EST Office Visit Hematology [place] [address] Yamileth Nur APRN [facility] [place] [address] 07/30/2024 10:00 AM EST Appointment Hematology [place] [address] 08/13/2024 8:00 AM EST Appointment Hematology [place] [address] 08/13/2024 9:00 AM EST Office Visit Hematology [place] [address] Rosalba Patel MD [facility] [place] [address] 08/13/2024 10:30 AM EST Appointment Hematology [place] [address] documented as of this encounter Visit Diagnoses Not on filedocumented in this encounter Care Teams Molding Machine Setter Relationship Specialty Start Date End Date Nat Baker MD [address] [place] [address] PCP - General 11/11/18 02/27/19 documented as of this encounter
[2024-06-21] MEDS: Magnesium Oxide 400 MG TAB PO (16:31)
--- NOTE | 2024-06-21 16:59 | ED.FU.B_ITS ---
Follow Up Plan: Handoff report received from slick Hassan CARD TABLE ATTENDANT. Please see her note for full HPI, ROS, PE, and lab results. Martha is a 59-year-old female currently undergoing chemotherapy for cancer treatment who presented to the emergency department today for evaluation of lower anterior chest discomfort that started yesterday, is worsened with deep breathing. She reports she has also had a cough for couple of days. Also reports low energy, but this is consistent with chemotherapy on Sunday. She denies associated fever/chills, radiation of pain, sweating, dizziness, difficulty breathing, nausea/vomiting, abdominal pain, change in bowel or bladder function. No history of blood clots. She has received 4 doses of Onpro as well as her chemotherapy, is not sure how high her white cell count usually is. I did perform a brief physical exam. Martha is alert and oriented, no acute distress. Pain is not reproducible with palpation. Easy work of breathing, lung sounds clear bilaterally. Abdomen soft, nondistended, nontender palpation. Workup overall reassuring only significant for leukocytosis and mild dehydration. CBC notable for significant leukocytosis, white cell count 41.78. Creatinine 1.0 with BUN 28; CMP otherwise reassuring. Troponins flat at 5 and 6. BNP and lipase unremarkable. EKG reassuring, sinus tachycardia, no arrhythmias noted. CTA PE study performed, no acute abnormalities noted by radiologist While in the emergency department Martha received Magic mouthwash and Pepcid for probable GERD Overall cardiac and pulmonary workup today reassuring. Unclear etiology of chest pressure, likely GERD or muscle spasm. Call placed to [facility] [place]. Discussed case with Dr Guzman, fire protection engineering technician/oncology fellow. Reviewed patient labs, vital signs, and diagnostic imaging. She feels that the leukocytosis with neutrophilia is most consistent with the marginalization/normal effect of the Onpro, which usually has peak effect at 3 days. Patient did have tachycardia with heart rate 110 noted at last visit on the . No other workup recommended. She recommends patient calling on Sunday and checking patient portal for new appointments, next scheduled appointment at this time is 07/02. Reviewed discharge instructions with patient and her . Imaging and Studies Imaging and Studies Study information below may be from another EMR and interpreted by another provider. Please see original notes in EMR for more complete details. EKG Summary: EKG shows sinus tachycardia, no changes c/w acute ischemia. Normal intervals Stress Test Interpretation: No Data to Display Echo Interpretation: Echocardiogram Ultrasound 11/29/18 07:30 CT Summary: PROCEDURE INFORMATION: Exam: CTA Chest With Contrast Exam date and time: 06/21/2024 3:08 PM Age: 59 years old Clinical indication: Other: Chest pain, HX of breast CA and chemo; Additional info: Injection rate was lowered duet o porr iv access TECHNIQUE: Imaging protocol: Computed tomographic angiography of the chest with contrast. Exam focused on the arteries. 3D rendering (Not supervised by radiologist): MIP and/or 3D reconstructed images were created by the technologist. Contrast material: OMNIPAQUE 350; Contrast volume: 80 ml; Contrast route: INTRAVENOUS (IV); COMPARISON: CT CHEST PE CTA 12/19/2020 10:56 PM FINDINGS: Pulmonary arteries: The pulmonary arteries are not enlarged. There is no evidence of filling defects within the pulmonary arterial circulation to suggest pulmonary embolism. Great vessels off aortic arch: The great vessels are normal. Aorta: The aorta demonstrates mild atherosclerotic calcification. Lungs: There is a right pulmonary parenchymal and mediastinal calcification consistent with remote granulomatous organism exposure. The left lower lobe pneumonia present on 12/19/2020 has resolved. Pleural spaces: There is no evidence of pneumothorax. There are no pleural effusions present. Heart: There is moderate left ventricular hypertrophy.The right ventricular to left ventricular ratio is abnormal measuring 1.5. Consider pulmonary hypertension. Coronary arteries: There is mild atherosclerotic calcification of the coronary arteries. Lymph nodes: There is no evidence of lymphadenopathy Diaphragm: A small hiatal hernia is present. Bones/joints: Unremarkable. No acute fracture. Soft tissues: The upper abdominal viscera are unremarkable. The soft tissues of the extrathoracic region are unremarkable. IMPRESSION: 1. There is no evidence of filling defects within the pulmonary arterial circulation to suggest pulmonary embolism. 2. No active cardiopulmonary disease. Thank you for allowing us to participate in the care of your patient. Carotid Artery US: Neck CTA 11/29/18 01:31 Pulmonary Function Test Interpretation: 2 No Data to Display
[2024-06-21] MEDS: Magic Mouthwash 119 ML BTL 10 ML PO (17:24)
[2024-06-21] MEDS: Famotidine 20 MG/2 ML VIAL IVP (17:24)
[2024-06-21 17:40] LABS: Troponin I 7 ng/L (<or=51)
== END 2024-06-21 17:41 | disposition home or self-care (01) ==
PROVIDERS: Registered Nurse Emergency; Emergency Provider Nurse Practitioner Family; PCP Nurse Practitioner Primary Care
DX: R05.1 Acute cough; R06.02 Shortness of breath; R07.89 Other chest pain; E11.9 Type 2 diabetes mellitus without complications; Z85.3 Personal history of malignant neoplasm of breast; Z92.21 Personal history of antineoplastic chemotherapy
CPT/HCPCS: 36415; 71275; 80053; 83690; 93005; 96374; 96375; 99285; 83735; 83880; 84484; 85025; 85610; 85730; 93010; 99284; J2270; J2405; J3490

== ENCOUNTER 2024-07-17 09:52 | Emergency (ER) | payer BC, SELFPAY ==
[2024-07-17] VITALS (12 sets, daily range): BP systolic 112–160; BP diastolic 52–110; PULSE 76–111; RESP 15–32; TEMP 36.9; O2SAT 92–98
--- OUTSIDE RECORDS SUMMARY | 2024-07-17 10:02 | XMS_ITS | Continuity of Care Document ---
Author Organization [facility] Address [address] [place] [address] Care Team Providers Care Lead Cytogenetic Technologist Name Role Phone ELLYN KAHN APRN Primary Care Physician Encounter TL_OR FIN R [id number] Date(s): 07/11/24 - 07/11/[address] [address] Discharge Disposition: Home or Self Care Attending Physician: MIGUELINA OSEGUERA MD Admitting Physician: MIGUELINA OSEGUERA MD Referring Physician: ELLYN KAHN APRN Encounter Type: Outpatient Allergies, Adverse Reactions, Alerts Substance Criticality Severity Reaction Reaction Severity Status Triple Antibiotic Low criticality Mild Persist ent redness of skin Active sulfa drugs 1 High criticality Moderate Rash Active 1tolerates hctz, no rash Assessment and Plan Future Appointments Future Scheduled Tests Radiology* US Abdomen Complete 11/09/23 * US [...] every morning Start Date: 11/16/23 Status: Ordered Repeat number: 1 Lantus Solostar Pen 100 units/mL subcutaneous solution 10 units =, Subcutaneous, every night at bedtime Start Date: 11/16/23 Status: Ordered Repeat number: 1 lisinopril 40 mg oral tablet 40 mg = 1 tab, Oral, Daily, for high blood pressure Start Date: 11/16/23 Status: Ordered Repeat number: 1 meloxicam 7.5 mg oral tablet 7.5 mg = 1 tab, Oral, BID, take with food for pain Start Date: 11/16/23 Status: Ordered Repeat number: 1 metFORMIN 1000 mg oral tablet 1,000 mg = 1 tab, Oral, BID, # 180 tab, 0 Refill(s) Start Date: 09/28/22 Status: Ordered Quantity: 180.0 Unit: tab Repeat number: 1 NexIUM 40 mg oral delayed release capsule 40 mg = 1 cap, Oral, Daily, 30 minutes before evenng meal, # 30 cap, 3 Refill(s), Pharmacy: [facility] 2681, 167.64, cm, 03/21/24 8:12:00 EDT, Height, 81.6, kg, 03/21/24 8:16:00 EDT, Weight Dosing Start Date: 03/21/24 Stop Date: 07/19/24 Status: Ordered Quantity: 30.0 Unit: cap Repeat number: 4 Tylenol Extra Strength 500 mg oral tablet 1,000 mg = 2 tab, Oral, every 8 hr, PRN as needed for pain, 0 Refill(s) Start Date: 07/15/23 Status: Ordered Repeat number: 1 Problem List Condition Confirmation Course Effective Dates [...] Access Member Role: Primary Care Physician Address: [address] [place] [address]- Telecom: Care Team Related Persons Name: TRACI ESTRADA Name: TRACI ESTRADA Insurance Providers Guarantor name: EARL ESTRADA Health Plan Information #: 1 Payer: [facility] [employer] Member Number: [id number] Policy Number: NA Group Number: [id number] Health Plan Information #: 2 Payer: [facility] [employer] Member Number: [id number] Policy Number: NA Group Number: [id number]
--- OUTSIDE RECORDS SUMMARY | 2024-07-17 10:03 | XMS_ITS | Encounter Summary ---
Author Organization [facility] Address [address] [place] [address] Care Team Providers Care Orthodontic Technician Assistant Name Role Phone Jim Chadwick MD Primary Care Provider [phone] None, Provider Primary Care Provider Terese Rob ESCAPEMENT MAKER Primary Care Provider [phone] Encounter Details Date Type Department Care Team (Late st Contact Info) Description 09/21/2010 Orders Only [facility] Cardiology - [address] [place], [place] [id number] Jim Fowler MD [address] [place] [id number] Chest pain (Primary Dx) Social History Tobacco [...] unspecified documented in this encounter Care Teams Orthodontic Technician Assistant Relationship Specialty Start Date End Date Jim Chadwick MD [address] [place] [address] PCP - General 07/26/10 01/30/18 None, Provider PCP - General 01/31/18 12/18/18 Terese Fischer NP [address] [place] [phone] PCP - General 12/19/18 documented as of this encounter
--- OUTSIDE RECORDS SUMMARY | 2024-07-17 10:03 | XMS_ITS | Encounter Summary ---
Author Organization [facility] Address [address] [place] [address] Care Team Providers Care Size Stamper Name Role Phone Terese Fischer FOOTWEAR SALES LEADER Primary Care Provider [phone] Reason for Referral * (Routine/Next Available) - Receiving Office to Obtain Authorization Specialty Diagnoses / Procedures Referred By Contac t Referred To Contact Procedures CT OUTSIDE IMAGES NECK Unknown, Provider, Referral ID Status Reason Start Date Expiration Date Visits Requested Visits Authorized [id number] Receiving Office to Obtain Authorization 06/25/2024 1 1 Reason for Visit * (Routine/Next Available) - Receiving Office to Obtain Authorization Specialty Diagnoses / Procedures Referred By Contac t Referred To Contact Procedures CT OUTSIDE IMAGES NECK Unknown, Provider, MD Referral ID Status Reason Start Date Expiration Date Visits Requested Visits Authorized [id number] Receiving Office to Obtain Authorization 06/25/2024 1 1 Encounter Details Date Type Department Care Team (Latest Contact Info) Description 06/25/2024 21:51 EST - 06/25/2024 23:59 EST Hospital Encounter [facility] Secondary Reads [place] Discharge Disposition: Home or Self Care Social [...] this encounter Medications at Time of Discharge ATENOLOL ORAL Take 40 mg by mouth daily. cephALEXin (KEFLEX) 500 mg capsule Take 500 mg by mouth 4 times daily. clobetasol (TEMOVATE) 0.05 % cream Use once a day and rub in well until rash is gone 60 g 1 04/24/2012 hydrOXYzine (ATARAX) 50 mg tablet Take 50 mg by mouth as needed. lisinopril (PRINIVIL, ZESTRIL) 40 mg tablet Take 80 mg by mouth daily. metFORMIN (GLUCOPHAGE) 500 mg tablet Take 500 mg by mouth 2 times daily. predniSONE (DELTASONE) 20 mg tablet Take 20 mg by mouth as needed. triamcinolone (KENALOG) 0.1 % ointment Apply and rub in well to the less itchy areas 60 g 0 04/24/2012 documented as of this encounter Discharge Disposition Disposition Code Departure Means Destination Home or Self Care documented in this encounter Plan of Treatment Not on file documented as of this encounter Procedures Procedure Name Priority Date/Time Associated Diagnosis Comments CT OUTSIDE IMAGES NECK Routine 06/25/2024 21:51 EST documented in this encounter Results * CT OUTSIDE IMAGES NECK (06/25/2024 21:51 EST) Narrative 06/25/2024 21:51 EST This is a non-reportable exam. us Provider Unknown MD CLOUD OTHER IMAGING ORDERABLES Final Result documented in this encounter Visit Diagnoses Not on filedocumented in this encounter Care Teams Size Stamper Relationship Specialty Start Date End Date Terese Fischer NP [address] [place] [address] PCP - General 12/19/18 documented as of this encounter
--- OUTSIDE RECORDS SUMMARY | 2024-07-17 10:03 | XMS_ITS | Encounter Summary ---
Author Organization [facility] Address [address] [place] [address] Care Team Providers Care Sheet Sewer Name Role Phone Unavailable Primary Care Provider Unavailabl e Encounter Details Date Type Department Care Team (Late st Contact Info) Description 01/05/2003 14:55 EDT Hospital Encounter [facility] - Other [address] [place] [address] Ad Hwang MD [address] [place], [place] [address] Social History Tobacco Use Types Packs/Day Years [...] ? EARL RODRIGUEZ ? Accession #: ? [id number] : ? 1965 (Age: 37) ??F ?Collect [...] ORDERABLES Fi nal Result ALEX GEORGE [address] [place] [address] documented in this encounter Visit Diagnoses Not on filedocumented in this encounter
--- OUTSIDE RECORDS SUMMARY | 2024-07-17 10:03 | XMS_ITS | Encounter Summary ---
Author Organization [facility] Address [address] [place] [address] Care Team Providers Care Sewing Machine Repairer Helper Name Role Phone None, Provider Primary Care Provider Unavailabl e Encounter Details Date Type Department Care Team (Late st Contact Info) Description 11/30/2018 Results Only Imaging [facility] [phone] Unknown, Provider, MD Social History Tobacco Use [...] on filedocumented in this encounter Care Teams Sewing Machine Repairer Helper Relationship Specialty Start Date End Date None, Provider PCP - General 01/31/18 12/18/18 documented as of this encounter
--- OUTSIDE RECORDS SUMMARY | 2024-07-17 10:03 | XMS_ITS | Encounter Summary ---
Author Organization [facility] Address [address] [place] [address] Care Team Providers Care Customer Support Representative Name Role Phone Terese Fischer MEDIA MARKETING DIRECTOR Primary Care Provider [phone] Encounter Details Date Type Department Care Team (Late st Contact Info) Description 07/13/2020 Lab Requisition [facility] Pathology & Laboratory Medicine - [address] [address] Outr Resulting Lab, Provider Social History Tobacco [...] Procedure Name Priority Date/Time Associated Diagnosis Comments [facility] Routine 07/13/2020 10:45 EST documented in this encounter Results * [facility] (07/13/2020 10:45 EST) Lead <2.0 <=4.9 ug/dL 07/14/2020 11:18 EST [facility] Blood VENOUS BLOOD / Unknown 07/13/2020 10:45 EST 07/13/2020 21:05 EST Narrative [facility] - 07/14/2020 11:18 EST [...] & BLOOD GA S ORDERABLES Final Result [facility] [address] [place] [address] documented in this encounter Visit Diagnoses Not on filedocumented in this encounter Care Teams Customer Support Representative Relationship Specialty Start Date End Date Terese Fischer NP [address] [place] [phone] PCP - General 12/19/18 documented as of this encounter
--- OUTSIDE RECORDS SUMMARY | 2024-07-17 10:03 | XMS_ITS | Encounter Summary ---
Author Organization [facility] Address [address] [place] [address] Care Team Providers Care Dry Cleaning Teacher Name Role Phone Aaliyah Terese Dalia SCIENTIFIC DIVER Primary Care Provider [phone] Encounter Details Date Type Department Care Team (Late st Contact Info) Description 08/05/2019 Lab Requisition [facility] Pathology & Laboratory Medicine - [address] [address] Unknown, Provider, Social History Tobacco Use Types [...] Quantiferon Interpretation Negative Negative 08/06/2019 13:[address] [facility] Comment: No interferon-gamma response [...] minus Nil 0.00 IU/ml 08/06/19 13:[address] [facility] TB2 Ag minus Nil 0.00 IU/mL 08/06/19 20 13:[address] [facility] Blood VENOUS BLOOD / Unknown 08/04/2019 12:50 EST 08/05/2019 16:12 EST Narrative [facility] - 08/06/2019 13:25 EST Results were obtained with the [employer] QuantiFERON-TB Gold Plus CHEMO. us Provider Unknown CHEMISTRY & BLOOD GAS ORDERA BLES Final Result Performing Organization Address City/State/[facility] Co de Phone Number [facility] [address] [place] [address] documented in this encounter Visit Diagnoses Not on filedocumented in this encounter Care Teams Dry Cleaning Teacher Relationship Specialty Start Date End Date Terese Fischer NP [address] [place] [address] PCP - General 12/19/18 documented as of this encounter
--- OUTSIDE RECORDS SUMMARY | 2024-07-17 10:03 | XMS_ITS | Encounter Summary ---
Author Organization [facility] Address [address] [place] [address] Care Team Providers Care Business Objects Analyst Name Role Phone Aaliyah Terese Dalia ASIAN ART CURATOR Primary Care Provider Encounter Details Date Type Department Care Team (Late st Contact Info) Description 08/04/2019 Lab Requisition [facility] Pathology & Laboratory Medicine - [address] [address] Unknown, Provider, Social History Tobacco Use Types [...] 21:23 EST) Hold Hold 08/04/2019 22:30 EST [facility] Blood VENOUS BLOOD / Unknown 08/04/2019 21:23 EST 08/04/2019 21:23 EST us Provider Unknown MD LAB INFO SERVICE AND SUPPORT & PHONE RESULT Final Result Performing Organization Address City/[facility]/ZIP Co de Phone Number [facility] [address] [place] [address] * HOLD SST (08/04/2019 21:23 EST) Hold Hold 08/04/2019 22:30 EST [facility] Blood VENOUS BLOOD / Unknown 08/04/2019 21:23 EST 08/04/2019 21:23 EST us Provider Unknown MD LAB INFO SERVICE AND SUPPORT & PHONE RESULT Final Result Performing Organization Address City/[facility]/ZIP Co de Phone Number [facility] [address] [place] [address] * HOLD SST (08/04/2019 21:23 EST) Hold Hold 08/04/2019 22:30 EST [facility] Blood VENOUS BLOOD / Unknown 08/04/2019 21:23 EST 08/04/2019 21:23 EST us Provider Unknown MD LAB INFO SERVICE AND SUPPORT & PHONE RESULT Final Result Performing Organization Address City/[facility]/ZIP Co de Phone Number [facility] [address] [place] [address] * HOLD SST (08/04/2019 21:23 EST) Hold Hold 08/04/2019 22:30 EST [facility] Blood VENOUS BLOOD / Unknown 08/04/2019 21:23 EST 08/04/2019 21:23 EST us Provider Unknown LAB INFO SERVICE AND SUPPORT & PHONE RESULT Final Result Performing Organization Address [facility] Co de Phone Number [facility] [address] [place] [address] * HEPATITIS B SURFACE ANTIBODY (08/04/2019 12:50 EST) Hep B Surface Ab, Quantitative 4.6 See Note mIU/mL 08/05/2019 9:06 EST [facility] Comment: Reference Range for Hep B Surface Ab, Quant: Positive: >= 10.0 mIU/mL Negative: ??< 10.0 mIU/mL Patient is presumed to not be immune to infection with Hepatitis B Virus. Hep B Surface Ab, Qualitative Negative See Note 08/05/2019 9:06 EST [facility] Comment: Reference Range for Hep B Surface Ab, Qual: Unvaccinated: ??Negative Vaccinated: ??Positive Blood VENOUS BLOOD / Unknown Venipuncture / Unknown 08/04/2019 12:50 EST 08/04/2019 21:22 EST us Provider Unknown CHEMISTRY & BLOOD GAS ORDERA BLES Final Result Performing Organization Address [facility] de Phone Number [facility] [address] [place] [address] * MEASLES IGG AB (08/04/2019 12:50 EST) Measles IgG Ab Negative See Note 08/05/2019 11:16 EST [facility] Comment:Absence of detectabl e measles virus IgG antibodies. A negative result generally indicates that the patient is susceptible to measles. Blood VENOUS BLOOD / Unknown Venipuncture / Unknown 08/04/2019 12:50 EST 08/04/2019 21:22 EST us Provider Unknown IMMUNOLOGY AND SEROLOGY MARTY WALLIS Final Result Performing Organization Address City/[facility]/ZIP Co de Phone Number [facility] [address] [place] [address] * VARICELLA IGG ANTIBODY (08/04/2019 12:50 EST) Varicella IgG Ab Positive See Note 08/05/2019 11:16 EST [facility] Comment:Presence of detectab le Varicella Zoster virus IgG antibodies. Blood VENOUS BLOOD / Unknown Venipuncture / Unknown 08/04/2019 12:50 EST 08/04/2019 21:22 EST us Provider Unknown MD IMMUNOLOGY AND SEROLOGY ORDE RABLES Final Result Performing Organization Address [facility] Co de Phone Number [facility] [address] [place] [address] * MUMPS ANTIBODY IGG (08/04/2019 12:50 EST) Mumps Antibody IgG Negative See Note 08/05/2019 11:16 EST [facility] Comment:Absence of detectabl e mumps virus IgG antibodies. A negative result generally indicates that the patient is susceptible to mumps. Blood VENOUS BLOOD / Unknown Venipuncture / Unknown 08/04/2019 12:50 EST 08/04/2019 21:22 EST us Provider Unknown IMMUNOLOGY AND SEROLOGY ORDE RABLES Final Result Performing Organization Address City/[facility] Co de Phone Number [facility] [address] [place] [address] * RUBELLA IGG ANTIBODY (08/04/2019 12:50 EST) Rubella IgG Ab Positive See Note 08/05/2019 11:16 EST [facility] Comment:Positive for IgG ant ibodies to Rubella virus. Blood VENOUS BLOOD / Unknown Venipuncture / Unknown 08/04/2019 12:50 EST 08/04/2019 21:22 EST us Provider Unknown MD CHEMISTRY & BLOOD GAS ORDERA BLES Final Result [facility] [address] [place] [address] documented in this encounter Visit Diagnoses Not on filedocumented in this encounter Care Teams Business Objects Analyst Relationship Specialty Start Date End Date Terese Fischer, NADEEN [address] [place] [address] PCP - General 12/19/18 documented as of this encounter
--- OUTSIDE RECORDS SUMMARY | 2024-07-17 10:03 | XMS_ITS | Encounter Summary ---
Author Organization [facility] Address [address] [place] [address] Care Team Providers Care Supervisor Mixing Name Role Phone Berry Chadwick MD Primary Care Provider Reason for Visit * Reason Comments Chest Pain Onset right sided ch est pain yesterday with numbness to right hand. Denies SOB/N/V. Skin pink/warm/dry. Encounter Details Date Type Department Care Team (Late st Contact Info) Description 09/19/2010 9:39 EST - 09/19/2010 11:47 EST Emergency [facility] Emergency Department - [address] [address] Rashid Alfaro MD Emergency, MD Arpan Chest [...] ORD ERABLES Final Result Performing Organization Address [facility] Co de Phone Number [facility] [address] [place] [address] * D-DIMER (09/19/2010 10:11 EST) D-Dimer <200 <230 ng/mL [facility] Comment:CUTOFF VALUE FOR THE EXCLUSION OF DVT and PE: 230 ng/mL Blood specimen (specimen) 09/19/2010 10:11 EST 09/19/2010 10:24 EST us Rashid Alfaro MD HEMATOLOGY & PF4 ORDERABL ES Final Result Performing Organization Address [facility] de Phone Number [facility] [address] [place] [address] documented in this encounter Visit Diagnoses Diagnosis [...] 09/19/2010 documented in this encounter Care Teams Supervisor Mixing Relationship Specialty Start Date End Date Berry Chadwick MD [address] [place] [address] PCP - General 07/26/10 01/30/18 documented as of this encounter
--- OUTSIDE RECORDS SUMMARY | 2024-07-17 10:03 | XMS_ITS | Encounter Summary ---
Author Organization [facility] Address [address] [place] [address] Care Team Providers Care Tool Polisher Name Role Phone Jim Chadwick MD Primary Care Provider [phone] Encounter Details Date Type Department Care Team (Late st Contact Info) Description 09/08/2010 Results Only [facility] Laboratory Services - [facility] ([facility] [address] [place] [address] Jim Chadwick MD [address] [place] [address] Social History Tobacco Use Types Packs/Day Years [...] ORDERABLE S Final Result Performing Organization Address [facility] de Phone Number [facility] [address] [place] [address] * TSH (09/08/2010 9:30 EST) Pathologist [facility] TSH 1.58 0.35 - 5.00 uIU/ml [facility] 09/08/2010 9:30 EST 09/08/2010 19:21 EST Jim Chadwick MD CHEMISTRY & BLOOD GAS ORDERABLE S Final Result Performing Organization Address [facility] de Phone Number [facility] [address] [place] [address] * LIPID PROFILE (INCLUDES CHOLESTEROL, TRIGLYCERIDES, HDL, LDL) (09/08/2010 9:30 EST) Pathologist [facility] Cholesterol 183 mg/dl [facility] Comment:Desirable:<200 Borde rline High:200-239 High:>ap=683 Triglycerides 69 35 - 160 mg/dl [facility] HDL 66 mg/dl [facility] Comment:Low:<40 High(Desirab le):>or=60 LDL, Calculated 103 mg/dl [facility] Comment: Optimal:<100 Above optimal:100-129 Borderline High:130-159 High:160-189 Very High:>fp=253 Chol/HDL Ratio 2.8 [facility] Fasting? Yes [facility] 09/08/2010 9:30 EST 09/08/2010 19:21 EST Jim Chadwick MD CHEMISTRY & BLOOD GAS ORDERABLE S Final Result Performing Organization Address City/[facility]/ZIP Co de Phone Number [facility] [address] [place] [address] * (ABNORMAL) COMPREHENSIVE METABOLIC PANEL (CMP) (09/08/2010 9:30 EST) Potassium 4.4 3.5 - 5.0 mEq/L [facility] Sodium 139 136 - 145 [...] ORDERABLE S Final Result Performing Organization Address City/[facility]/ZIP Co de Phone Number [facility] [address] [place] [address] * HEMAGRAM (09/08/2010 9:30 EST) WBC 8.00 [...] ORDERABLES Fin al Result Performing Organization Address [facility] de Phone Number [facility] [address] [place] [address] * CA 125 (09/08/2010 9:30 EST) CA 125 32 0 - 35 U/ml [facility] Comment: ??Serum CA125 concentrations should not be interpreted as absolute evidence for the presence or absence of malignant disease. ?? Assayed utilizing [employer] Clinical Diagnostics technology. Values obtained by using different assay methods cannot be used interchangeably. 09/08/2010 9:30 EST 09/08/2010 19:21 EST Jim Chadwick MD CHEMISTRY & BLOOD GAS ORDERABLE S Final Result Performing Organization Address City/[facility] de Phone Number [facility] [address] [place] [address] documented in this encounter Visit Diagnoses Not on filedocumented in this encounter Care Teams Tool Polisher Relationship Specialty Start Date End Date Jim Chadwick MD [address] [place] [address] PCP - General 07/26/10 01/30/18 documented as of this encounter
--- OUTSIDE RECORDS SUMMARY | 2024-07-17 10:03 | XMS_ITS | Encounter Summary ---
Author Organization [facility] Address [address] [place] [address] Care Team Providers Care Deputy County Clerk Name Role Phone Terese Fischer CORK PRESSING MACHINE OPERATOR Primary Care Provider [phone] Reason for Referral * (Routine/Next Available) - Receiving Office to Obtain Authorization Specialty Diagnoses / Procedures Referred By Contac t Referred To Contact Procedures CT OUTSIDE IMAGES HEAD Unknown, Provider, Referral ID Status Reason Start Date Expiration Date Visits Requested Visits Authorized [id number] Receiving Office to Obtain Authorization 06/25/2024 1 1 Reason for Visit * (Routine/Next Available) - Receiving Office to Obtain Authorization Specialty Diagnoses / Procedures Referred By Contac t Referred To Contact Procedures CT OUTSIDE IMAGES HEAD Unknown, Provider, MD Referral ID Status Reason Start Date Expiration Date Visits Requested Visits Authorized [id number] Receiving Office to Obtain Authorization 06/25/2024 1 1 Encounter Details Date Type Department Care Team (Latest Contact Info) Description 06/25/2024 21:51 EST - 06/25/2024 23:59 EST Hospital Encounter [facility] [place] Discharge Disposition: Home or [...] Date/Time Associated Diagnosis Comments CT OUTSIDE IMAGES HEAD Routine 06/25/2024 21:52 EST documented in this encounter Results * CT OUTSIDE IMAGES HEAD (06/25/2024 21:52 EST) Narrative 06/25/2024 21:52 EST This is a non-reportable exam. us Provider Unknown MD CLOUD OTHER IMAGING ORDERABLES Final Result documented in this encounter Visit Diagnoses Not on filedocumented in this encounter Care Teams Deputy County Clerk Relationship Specialty Start Date End Date Terese Fischer NP [address] [place] [address] PCP - General 12/19/18 documented as of this encounter
--- OUTSIDE RECORDS SUMMARY | 2024-07-17 10:03 | XMS_ITS | Clinical Summary ---
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 04/24/2012 Encounters Date Type Department Care Team Description 06/25/2024 21:51 EST - 06/25/2024 23:59 EST Hospital Encounter [facility] [place] Discharge Disposition: Home or Self Care 06/25/2024 21:51 EST - 06/25/2024 23:59 EST Hospital Encounter [facility] [place] Discharge Disposition: Home or Self Care 06/25/2024 21:51 EST - 06/25/2024 23:59 EST Hospital Encounter [facility] [place] Discharge Disposition: Home or Self Care from Last 3 Months Surgical History Surgery Date Site/Laterality Comments CARDIAC [...] Comments Hepatitis C Screen 1965 COVID-19 Vaccine ( season) 2024, 07/19/2020 RSV Immunization ( o r 60+ Years) (1 - 1-dose 75+ series) 02/04/2039 Procedures Procedure Name Priority Date/Time Associated Diagnosis Comments CT OUTSIDE IMAGES HEAD Routine 06/25/2024 21:[address] OUTSIDE IMAGES HEAD Routine 06/25/2024 21:[address] OUTSIDE IMAGES NECK Routine 06/25/2024 21:51 EST from Last 3 Months Results * CT OUTSIDE IMAGES HEAD (06/25/2024 21:52 EST) Narrative 06/25/2024 21:52 EST This is a non-reportable exam. us Provider Unknown IMJulianne OTHER IMAGING ORDERABLES Final Result * CT OUTSIDE IMAGES HEAD (06/25/2024 21:51 EST) Narrative 06/25/2024 21:52 EST This is a non-reportable exam. us Provider Unknown MD IMG OTHER IMAGING ORDERABLES Final Result * CT OUTSIDE IMAGES NECK (06/25/2024 21:51 EST) Narrative 06/25/2024 21:51 EST This is a non-reportable exam. us Provider Unknown MD CLOUD OTHER IMAGING ORDERABLES Final Result from Last 3 Mon[place] [id number] Care Teams Petroleum Engineer Relationship Specialty Start Date End Date Terese Fischer NP [address] [place] [address] PCP - General 12/19/18
--- OUTSIDE RECORDS SUMMARY | 2024-07-17 10:03 | XMS_ITS | Encounter Summary ---
Author Organization [facility] Address [address] [place] [address] Care Team Providers Care Narrative Writer Name Role Phone None, Provider Primary Care Provider Unavailabl e Encounter Details Date Type Department Care Team (Late st Contact Info) Description 02/12/2018 Phlebotomy Only [facility] [address] [place] [address] Opal Polisher, Outpatient Social History Tobacco Use Types Packs/Day [...] on filedocumented in this encounter Care Teams Narrative Writer Relationship Specialty Start Date End Date None, Provider PCP - General 01/31/18 12/18/18 documented as of this encounter
--- OUTSIDE RECORDS SUMMARY | 2024-07-17 10:03 | XMS_ITS | Encounter Summary ---
Author Organization [facility] Address [address] [place] [address] Care Team Providers Care Merchandising Manager Name Role Phone Aaliyah Terese Dalia SANDER HAND Primary Care Provider [phone] Encounter Details Date Type Department Care Team (Late st Contact Info) Description 07/03/2023 Lab Requisition [facility] Pathology & Laboratory Medicine - [address] [address] Clotilde Castillo PA-C [address] [place] [address] Erythema intertrigo; Rash and other nonspecific skin [...] explore management options, if applicable. 07/04/2023 11:12 [facility] Final Diagnosis A. SKIN OF ABDOMEN, RIGHT LOWER, BIOPSY: - Superficial and deep perivascular dermatitis with eosinophils. See microscopic and comment. 07/04/2023 11:12 [facility] Diagnosis Comment The findings are most suggestive of a dermal hypersensitivity reaction. The density and depth of the infiltrate raise an arthropod assault reaction as a consideration. Clinical correlation is recommended. 07/04/2023 11:12 [facility] Attestation By the signature below, the attending physician certifies that they have 1) personally conducted a gross and/or microscopic examination of the described specimen(s), and/or personally interpreted the results of laboratory testing of the described specimen(s), and 2) personally rendered or confirmed the above diagnosis. 07/04/2023 11:12 [facility] at 1112 Microscopic Description [...] collagen bundles show some fibrosis. 07/04/2023 11:12 [facility] Clinical History Rash R lower abdomen; 4 mm punch biopsy for pathology review; clinical diagnosis code: R21, L30.4 07/04/2023 11:12 [facility] Gross Description A. Received in formalin labelled with proper patient identification (initials S, L) and right lower abdomen is a pale hill circular skin, 0.4 cm in diameter and excised to a depth of 0.4 cm. Bisected and entirely submitted in A1. LY ANDREWS(ASCP) 07/03/2023 10:27 07/04/2023 11:12 [facility] Performing Lab [facility] 07/04/2023 11:12 EST [facility] Scanned Images 07/04/2023 11:12 EST [facility] Tissue SPECIMEN FROM SKIN / Unknown 07/01/2023 14:45 EST 07/03/2023 10:12 EST us Clotilde Castillo PA-C PATHOLOGY ORDERABLES Final Result Performing Organization Address City/State/[facility] Co de Phone Number [facility] [address] [place] [address] documented in this encounter Visit Diagnoses Diagnosis Erythema intertrigo Other specified erythematous condition Rash and other nonspecific skin eruption documented in this encounter Care Teams Merchandising Manager Relationship Specialty Start Date End Date Terese Fischer NP [address] [place] [phone] PCP - General 12/19/18 documented as of this encounter
--- OUTSIDE RECORDS SUMMARY | 2024-07-17 10:03 | XMS_ITS | Encounter Summary ---
Author Organization [facility] Address [address] [place] [address] Care Team Providers Care C.O.D. Audit Clerk Name Role Phone Terese Fischer CONSTRUCTION MILLWRIGHT Primary Care Provider [phone] Reason for Referral * Referral (Routine) - Closed Specialty Diagnoses / Procedures Referred By Contact Referred To Contact Physical Medicine and Rehab Diagnoses Neck pain Hand numbness Procedures EMG/NERVE CONDUCTION STUDY Daily Scott PA-C Phone: tel: fax: [facility] Physical Medicine & Rehabilitation - [place] [address] [place] [address] Phone: tel: fax: Referral ID Status Reason Start Date Expiration Date Visits Re quested Visits Authorized [id number] Closed 12/19/2018 1 1 Reason for Visit * Reason Onset Date Comments Neck Pain 12/19/2018 Encounter Details Date Type Department Care Team (Late st Contact Info) Description 12/19/2018 Orders Only [facility] Spine Program - [facility] [place] [address] Daily Scott PA-C [address] [place] [address] [place] [address] Neck pain (Primary Dx); Hand [...] sensation documented in this encounter Care Teams C.O.D. Audit Clerk Relationship Specialty Start Date End Date Terese Fischer NP [address] [place] [address] PCP - General 12/19/18 documented as of this encounter
--- OUTSIDE RECORDS SUMMARY | 2024-07-17 10:03 | XMS_ITS | Encounter Summary ---
Author Organization [facility] Address [address] [place] [address] Care Team Providers Care Child Monitor Name Role Phone Terese Fischer REGIONAL SALES LEADER Primary Care Provider [phone] Reason for Referral * Radiology Services (Routine) - New Request Specialty Diagnoses / Procedures Referred By Laurel garrett Referred To Contact Diagnoses Neck pain Procedures CERVICAL SPINE 4 OR MORE VIEWS Daily Scott PA-C Phone: tel: fax: Referral ID Status Reason Start Date Expiration Date V isits Requested Visits Authorized [id number] New Request 12/18/2018 1 1 Encounter Details Date Type Department Care Team (Late st Contact Info) Description 12/19/2018 Orders Only [facility] Spine Program - [address] [address] Daily Scott PA-C [address] [place] [address] [place] [address] Neck pain (Primary Dx) Social [...] MORE VIEWS ??12/19/2018 9:42 AM Clinical History/Comments: M54.3-[id number]-[id number]-10; Neck Pain Comparison: MRI of the cervical spine from [facility] on November 29, 2018 Technique: AP and [...] MORE VIEWS 12/19/2018 9:42 AM Clinical History/Comments: M54.7-Ileyyrrputy-ULX-10; Neck Pain Comparison: MRI of the cervical spine from [facility] on November 29, 2018 Technique: AP and [...] Cervicalgia documented in this encounter Care Teams Child Monitor Relationship Specialty Start Date End Date Terese Fischer NP [address] [place] [address] PCP - General 12/19/18 documented as of this encounter
--- OUTSIDE RECORDS SUMMARY | 2024-07-17 10:03 | XMS_ITS | Encounter Summary ---
Author Organization [facility] Address [address] [place] [address] Care Team Providers Care Bumper Machine Operator Name Role Phone Jim Chadwick MD Primary Care Provider [phone] Encounter Details Date Type Department Care Team (Latest Contact Info) Description 09/08/2010 15:01 EST - 09/08/2010 15:02 [facility] Hospital Encounter [facility] - Other [address] [place] [address] Jim Chadwick MD [address] [facility] [place] [address] Discharge Disposition: Home or Self Care Social [...] on filedocumented in this encounter Care Teams Bumper Machine Operator Relationship Specialty Start Date End Date Jim Chadwick MD [address] [facility] [place] [address] PCP - General 07/26/10 01/30/18 documented as of this encounter
--- OUTSIDE RECORDS SUMMARY | 2024-07-17 10:03 | XMS_ITS | Encounter Summary ---
Author Organization [facility] Address [address] [place] [address] Care Team Providers Care Fish Cake Maker Name Role Phone None, Provider Primary Care Provider Unavailabl e Reason for Visit * Reason Comments Genetic Evaluation Encounter Details Date Type Department Care Team (Late st Contact Info) Description 02/12/2018 13:30 EDT Office Visit [facility] Hematology & Oncology - [place] [facility] [address] [place] [address] Unknown, Provider, aRe Zaragoza, [place] [address] [place], [place] [id number] Encounter for nonprocreative genetic counseling (Primary Dx); [...] have her blood drawn and sent to [facility] for BRCA1 testing. I will call Martha by phone with her results. If positive, she will return to [facility] to discuss in detail. documented in this encounter Plan of Treatment Not on file documented as of this encounter Procedures Procedure Name Priority Date/Time Associated Diagnosis Comments PATHOLOGY - SCANNED 02/22/2018 20:32 EDT documented in this encounter Results * PATHOLOGY - SCANNED (02/22/2018 20:32 EDT) 02/22/2018 20:3 2 EDT us Scan 2 Nursing Staffing Coordinator LAB INFO SERVICE AND SUPPOR T & PHONE RESULT Final Result documented in this encounter Visit Diagnoses Diagnosis Encounter for nonprocreative genetic counseling- Primary Family history of ovarian cancer Family history of malignant neoplasm of ovary Family history of BRCA1 gene positive Family history of genetic disease carrier documented in this encounter Care Teams Fish Cake Maker Relationship Specialty Start Date End Date None, Provider PCP - General 01/31/18 12/18/18 documented as of this encounter
--- OUTSIDE RECORDS SUMMARY | 2024-07-17 10:03 | XMS_ITS | Encounter Summary ---
Author Organization [facility] Address [address] [place] [address] Care Team Providers Care Buckle Inspector Name Role Phone Terese Fischer ADMITTING REPRESENTATIVE Primary Care Provider [phone] Encounter Details Date Type Department Care Team (Late st Contact Info) Description 12/21/2020 Lab Requisition [facility] Pathology & Laboratory Medicine - [address] [address] Outr Resulting Lab, Provider Social History Tobacco [...] MICROBIOLOGY - GENER AL ORDERABLES Final Result [facility] [address] [place] [address] * COVID-19 TESTING (12/20/2020 0:15 EDT) COVID-19 rt-PCR Result Negative Negative 12/22/2020 14:54 EDT [facility] Comment: This test has [...] developed and its performance characteristics determined by [facility]. It has not been cleared or approved [...] testing. This test is based on the [facility] COVID-19 Emergency Use Authorization (EUA) assay, with minor modification as defined by the FDA Performed on the [employer] 7 Flex RT-PCR System. Performing Lab [facility] Lab 12/22/2020 14:54 EDT [facility] Swab 12/20/2020 0:15 EDT 12/21/2020 16:10 EDT us Provider Outr Resulting Lab MICROBIOLOGY - GENER AL ORDERABLES Final Result [facility] [address] [place] [address] documented in this encounter Visit Diagnoses Not on filedocumented in this encounter Care Teams Buckle Inspector Relationship Specialty Start Date End Date Terese Fischer, NADEEN [address] [place] [address] PCP - General 12/19/18 documented as of this encounter
--- OUTSIDE RECORDS SUMMARY | 2024-07-17 10:03 | XMS_ITS | Encounter Summary ---
Author Organization [facility] Address [address] [place] [address] Care Team Providers Care Marking Room Supervisor Name Role Phone Terese Fischer DATA BASE ADMINISTRATOR Primary Care Provider [phone] Reason for Referral * PT/OT/ST (Routine) - Specialty Report Received Specialty Diagnoses / Procedures Referred By Laurel t Referred To Contact Diagnoses Neck pain Bilateral arm pain Numbness and tingling Daily Scott PA-C Phone: tel: fax: Referral ID Status Reason Start Date Expiration Date Visits Requested Visits Authorized [id number] Specialty Report Received Specialty Services Required 12/19/2018 1 1 Question Answer Reason for Request: neck pain bl arm pain w/ n/t Reason for Visit * Reason Comments Follow-up MRI Neck Pain * Consult, Test and Treat (Routine) - Closed Specialty Diagnoses / Procedures Referred By Contac t Referred To Contact Orthopedic Surgery Diagnoses Neck pain Unknown, Provider, [facility] [place] [address] Phone: tel: fax: Referral ID Status Reason Start Date Expiration Date Visits Re quested Visits Authorized [id number] Closed 1 1 Encounter Details Date Type Department Care Team (Late st Contact Info) Description 12/19/2018 9:00 EDT Office Visit [facility] [place] [address] Daily Scott PA-C [address] [facility] [place] [address] Neck pain (Primary Dx); Bilateral [...] and therefore went to the ED in [facility] where, per patient work-up ruled out [...] 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 Sensation to light touch touch [...] peripheral neuropathy. 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 Minor irregularities may be present. [...] daily. added in this encounter Care Teams Marking Room Supervisor Relationship Specialty Start Date End Date Terese Fischer NP [address] [place] [address] PCP - General 12/19/18 documented as of this encounter
--- OUTSIDE RECORDS SUMMARY | 2024-07-17 10:03 | XMS_ITS | Encounter Summary ---
Author Organization [facility] Address [address] [place] [address] Care Team Providers Care Teletype Adjuster Name Role Phone None, Provider Primary Care Provider Unavailabl e Encounter Details Date Type Department Care Team (Late st Contact Info) Description 02/12/2018 Results Only [facility] Hematology & Oncology - [facility] [address] [place] [address] [place] [address] [place] [phone] Social History Tobacco Use Types Packs/Day [...] Family Variant Testing, BRCA1 02/12/2018 15:13 EDT [facility] Result See Pathology Scanned Report in [facility]. 02/25/2018 11:06 EDT [facility] Comment:Assayed at [facility], [place], [place] Ref Lab [facility] 02/12/2018 15:13 EDT [facility] Date Sample Shipped 02/12/2018 02/12/2018 15:13 EDT [facility] TOPOGRAPHY UNKNOWN / Unknown 02/12/2018 14:51 EDT 02/12/2018 15:12 EDT us Irene Lopez MD LAB INFO SERVICE AND SUPPORT & P HALEIGH RESULT Final Result Performing Organization Address City/State/[facility] Co de Phone Number [facility] [address] [place] [address] documented in this encounter Visit Diagnoses Not on filedocumented in this encounter Care Teams Teletype Adjuster Relationship Specialty Start Date End Date None, Provider PCP - General 01/31/18 12/18/18 documented as of this encounter
--- OUTSIDE RECORDS SUMMARY | 2024-07-17 10:03 | XMS_ITS | Encounter Summary ---
Author Organization [facility] Address [address] [place] [address] Care Team Providers Care Furnace Process Plant Operator Name Role Phone Berry Chadwick MD Primary Care Provider [phone] Reason for Visit * Reason Comments Chest [...] 20:18 EST - 09/22/2010 0:04 EST Emergency [facility] Emergency Department - [address] [id number] Heriberto Morrison MD [address] [place] [address], [address] [place] [phone] Emergency, MD Arpan Chest pain Discharge Disposition: [...] this encounter Discharge Instructions * Discharge Instructions* Herbierto Morrison IV, MD - 09/21/2010 23:52 EST You will be contacted by the cardiology service to arrange an outpatient stress test. Discuss your symptoms with your primary care provider. Try an antacid; if your symptoms resolve, consider follow up with a mailroom manager. documented in this encounter Medications at Time [...] states that pain is better. Continues on probate clerk, side rails in upright position, call austin attached. * Esperanza Gross RN - 09/21/20102047 EST IV established by EMS. Labs drawn and sent. Pt on probate clerk, side rails in upright position, call austin [...] LAB [facility] 29.5 26.7 - 33.3 pg [facility] MCHC 34.3 32.1 - 35.9 gm/dl [...] PROBE ORDERABLES Final Result Performing Organization Address [facility] Co de Phone Number [facility] [address] [place] [address] * D-DIMER (09/21/2010 20:49 EST) Pathologist [facility] D-Dimer <200 <230 ng/mL [facility] Comment:CUTOFF VALUE FOR THE EXCLUSION OF DVT and PE: 230 ng/mL Blood specimen (specimen) 09/21/2010 20:49 EST 09/21/2010 20:53 EST us Heriberto Morrison MD HEMATOLOGY & PF4 ORD ERABLES Final Result Performing Organization Address [facility] Co de Phone Number [facility] [address] [place] [address] * HOLD BLUE TOP (09/21/2010 20:11 EST) Hold Blue Top Sample for coagulation will be discarded after 4 hours [facility] 09/21/2010 20:1 1 EST 09/21/2010 20:55 EST Heriberto Morrison MD LAB INFO SERVICE AND SUPPORT & PHONE RESULT Final Result [facility] [address] [place] [address] documented in this encounter Visit Diagnoses Diagnosis [...] RN) documented in this encounter Care Teams Furnace Process Plant Operator Relationship Specialty Start Date End Date Berry Chadwick MD [address] [place] [address] PCP - General 07/26/10 01/30/18 documented as of this encounter
--- OUTSIDE RECORDS SUMMARY | 2024-07-17 10:03 | XMS_ITS | Referral Summary ---
Author Organization [facility] Address [address] [place] [address] Care Team Providers Care Stove Cleaner Name Role Phone Aaliyah Terese Dalia CHANGE AGENT Primary Care Provider [phone] Encounters Date Type Department Care Team Description 06/25/2024 21:51 EST - 06/25/2024 23:59 EST Hospital Encounter [facility] [place] Discharge Disposition: Home or Self Care 06/25/2024 21:51 EST - 06/25/2024 23:59 EST Hospital Encounter [facility] [place] Discharge Disposition: Home or Self Care 06/25/2024 21:51 EST - 06/25/2024 23:59 EST Hospital Encounter [facility] [place] Discharge Disposition: Home or Self Care from Last 3 Months Allergies No known active allergies Medications lisinopril [...] the less itchy areas 60 g 0 10/03/201 2 Active Additional Information Patient not taking.Reported [...] EST Plan of Treatment Not on file Procedures Procedure Name Priority Date/Time Associated Diagnosis [...] MD CLOUD OTHER IMAGING ORDERABLES Final Result * CT OUTSIDE IMAGES HEAD (06/25/2024 21:51 EST) Narrative 06/25/2024 21:52 EST This is a non-reportable exam. us Provider Unknown MD CLOUD OTHER IMAGING ORDERABLES Final Result * CT OUTSIDE IMAGES NECK (06/25/2024 21:51 EST) Narrative 06/25/2024 21:51 EST This is a non-reportable exam. us Provider Unknown MD CLOUD OTHER IMAGING ORDERABLES Final Result from Last 3 Mon[place] [id number] Care Teams Stove Cleaner Relationship Specialty Start Date End Date Terese Fischer NP [address] [place] [phone] PCP - General 12/19/18
--- OUTSIDE RECORDS SUMMARY | 2024-07-17 10:03 | XMS_ITS | Encounter Summary ---
Author Organization [facility] Address [address] [place] [address] Care Team Providers Care Food Technologist Name Role Phone Terese Fischer INTERNAL GRINDER TENDER Primary Care Provider [phone] Reason for Referral * (Routine/Next Available) - Receiving Office to Obtain Authorization Specialty Diagnoses / Procedures Referred By Contac t Referred To Contact Procedures CT OUTSIDE IMAGES HEAD Unknown, Provider, Referral ID Status Reason Start Date Expiration Date Visits Requested Visits Authorized [id number] Receiving Office to Obtain Authorization 06/25/2024 1 1 Reason for Visit * (Routine/Next Available) - Receiving Office to Obtain Authorization Specialty Diagnoses / Procedures Referred By Contac t Referred To Contact Procedures CT OUTSIDE IMAGES HEAD Unknown, Provider, MD Referral ID Status Reason Start Date Expiration Date Visits Requested Visits Authorized [id number] Receiving Office to Obtain Authorization 06/25/2024 1 1 Encounter Details Date Type Department Care Team (Latest Contact Info) Description 06/25/2024 21:51 EST - 06/25/2024 23:59 EST Hospital Encounter [facility] [place] Discharge Disposition: Home [...] Comments CT OUTSIDE IMAGES HEAD Routine 06/25/2024 21:51 EST documented in this encounter Results * CT OUTSIDE IMAGES HEAD (06/25/2024 21:51 EST) Narrative 06/25/2024 21:52 EST This is a non-reportable exam. us Provider Unknown MD CLOUD OTHER IMAGING ORDERABLES Final Result documented in this encounter Visit Diagnoses Not on filedocumented in this encounter Care Teams Food Technologist Relationship Specialty Start Date End Date Terese Fischer NP [address] [place] [address] PCP - General 12/19/18 documented as of this encounter
--- OUTSIDE RECORDS SUMMARY | 2024-07-17 10:03 | XMS_ITS | Encounter Summary ---
Author Organization [facility] Address [address] [place] [address] Care Team Providers Care Network Support Specialist Name Role Phone Jim Chadwick MD Primary Care Provider [phone] Reason for Visit * Reason Comments Pelvic Pain has had a growth in pelvic area,having pain and growth has changed Encounter Details Date Type Department Care Team (Late st Contact Info) Description 07/26/2010 9:41 EST - 07/26/2010 10:48 EST Emergency [facility] Emergency Department - [address] [address] Isra Gutierrez MD [facility] [place] [address] Emergency, MD Arpan Infected sebaceous [...] Everywhere. * SKIN ABSCESS: AFTER YOUR VISIT (ANGUILLAN) documented in this encounter Discharge Disposition Disposition [...] cyst documented in this encounter Care Teams Network Support Specialist Relationship Specialty Start Date End Date Jim Chadwick MD [address] [place] [address] PCP - General 07/26/10 01/30/18 documented as of this encounter
--- OUTSIDE RECORDS SUMMARY | 2024-07-17 10:03 | XMS_ITS | Encounter Summary ---
Author Organization [facility] Address [address] [place] [address] Care Team Providers Care Director Of User Experience Name Role Phone None, Provider Primary Care Provider Unavailabl e Encounter Details Date Type Department Care Team (Late st Contact Info) Description 12/02/2018 Results Only [facility] [phone] Unknown, Provider, MD Social History Tobacco Use [...] in this encounter Care Teams Director Of User Experience Relationship Specialty Start Date End Date None, Provider PCP - General 01/31/18 12/18/18 documented as of this encounter
--- OUTSIDE RECORDS SUMMARY | 2024-07-17 10:03 | XMS_ITS | Encounter Summary ---
Author Organization [facility] Address [address] [place] [address] Care Team Providers Care Oyster Sorter Name Role Phone Terese Fischer PHARMACIST APPRENTICE Primary Care Provider [phone] Encounter Details Date Type Department Care Team (Late st Contact Info) Description 01/27/2023 Lab Requisition [facility] Pathology & Laboratory Medicine - [address] [address] Outr Resulting Lab, Provider Social History Tobacco [...] Lyme Ab Negative Negative 01/29/2023 11:53 EDT [facility] Blood VENOUS BLOOD / Unknown 01/26/2023 15:55 EDT 01/27/2023 21:28 EDT us Provider Outr Resulting Lab IMMUNOLOGY AND SEROL OGY ORDERABLES Final Result [facility] [address] [place] [address] documented in this encounter Visit Diagnoses Not on filedocumented in this encounter Care Teams Oyster Sorter Relationship Specialty Start Date End Date Terese Fischer NP [address] [place] [phone] PCP - General 12/19/18 documented as of this encounter
--- OUTSIDE RECORDS SUMMARY | 2024-07-17 10:03 | XMS_ITS | Encounter Summary ---
Author Organization [facility] Address [address] [place] [address] Care Team Providers Care Manager Transmission Name Role Phone Jim Chadwick MD Primary Care Provider [phone] Reason for Visit * Reason Comments New Patient Visit Itchy rash that bega n 4 weeks ago Encounter Details Date Type Department Care Team (Late st Contact Info) Description 04/24/2012 13:00 EDT Office Visit [facility] Dermatology [address] [address] Kendy Ash, PAPriyankaC [address] [place] [address], [address] [place] [address] Contact dermatitis and other eczema [...] ago (has 2 other tattoos from another environment artist who is licensed) 2. About 1 [...] daily. added in this encounter Care Teams Manager Transmission Relationship Specialty Start Date End Date Jim Chadwick MD [address] [place] [address] PCP - General 07/26/10 01/30/18 documented as of this encounter
--- OUTSIDE RECORDS SUMMARY | 2024-07-17 10:04 | XMS_ITS | Encounter Summary ---
[place] [address] Care Team Providers Care Pearl Cutter Name Role Phone Nat Nicolas APRN Primary Care Provider Reason for Referral * Physical Therapy (Routine) - Authorized Specialty Diagnoses / Procedures Referred By Laurel garrett Referred To Contact Physical Therapy Diagnoses Acute stroke due to ischemia Rosalba Patel MD [facility] [place] [address] [facility] [place] [address] Referral ID Status Reason Start Date Expiration Date Visits Requested Visits Authorized [id number] Authorized Evaluate and Treat 07/10/2024 07/10/2025 12 12 Reason for Visit * Reason Comments Follow-up Encounter Details Date Type Department Care Team (Late st Contact Info) Description 07/10/2024 9:00 AM EST Office Visit Hematology [place] [address] Rosalba Patel MD [facility] [place] [address] Acute stroke due to ischemia; Malignant neoplasm of lower-outer quadrant of left breast of female, estrogen receptor positive; Typical atrial flutter Social History Tobacco Use Types Packs/Day Years [...] Sign Reading Time Taken Comments Blood Pressure 149/88 07/10/2024 8:17 AM EST Pulse 63 07/10/2024 8:17 AM EST Temperature 36.3 ??C (97.3 ??F) 07/10/2024 8:17 AM ES T Respiratory Rate 20 07/10/2024 8:17 AM EST Oxygen Saturation 100% 07/10/2024 8:17 AM EST Inhaled Oxygen Concentration - - Weight 81 kg (178 lb 9.2 oz) 07/10/2024 8:17 AM EST Height 163.1 cm (5' 4.21) 07/10/2024 8:17 AM ES T Body Mass Index 30.45 07/10/2024 8:17 AM EST documented in this encounter Progress Notes * Rosalba Patel MD - 07/10/2024 9:00 AM EST Images from the original note were not included. [facility] Patient Name: Martha Rodriguez is a 59 y.o. female from [place], [place] (1 hour 10 min away). : 1965 Visit Date: 07/10/2024 PCP: Nat Nicolas APRN Breast surgical oncology: Lashay Amaral MD Radiation oncology: Referral pending Reason for visit: Scheduled f/up for ddAC-T Summary: Martha Rodriguez is a 59 y.o. 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 She presents today for neoadjuvant ddAC-T. DIAGNOSIS: Breast cancer pathology & staging: Clinical stage: [id number] Stage IIA Pathological stage: pending surgery Pathology: Invasive lobular carcinoma, grade 2, LVI-. Surgical pathology pending. Lauryn status: 4 abnormal axillary nodes, level I and II, seen on MRI - axillary u/s and biopsy 05/08/2024 positive for metastatic carcinoma Receptor status: ER positive (>90%, strong) KY positive (>70% strong) HER2 negative by FISH, total # signals for HER2 = 321, total # signals for CEP- 17 = 184; ratio = 1.7, Ave # HER2 signal/cell = 5.4 Oncotype DX RS: N/A Genetics: 02/22/2018- [facility] test for BRCA1 only ([facility]) - referred for updated testing - scheduled 05/19/2024 06/04/2024- [facility]Expanded 71-gene panel - no pathogenic mutations, no VUS or gross deletions/duplications NGS: N/A Menopausal Status: Post-menopausal CURRENT [place]: [...] grade 2, LVI- ER positive (>90%, strong) KY positive (>70% strong) HER2 negative by FISH, [...] ddAC-T 06/04/2024- C3D1 ddAC-T 06/18/2024- C4D1 ddAC-T [06/25/2024- 06/28/2024] - Admission for stroke - small acute cortical infarct involving the medial left parietal lobe 07/02/2024- C5D1 ddAC-T - deferred due to hospital admission for stroke and atrial flutter 07/10/2024- C5D1 Interval History: 07/10/2024 C5D1 ddAC-T - start of Taxol Since her last visit she was hospitalized at [facility] for acute stroke that manifested as left-sided hemiparesis and dysphasia. Found to have Aflutter during that admission. Now on ASA, atorvastatin, diltiazem, apixaban. Recovered almost complete function motor function with only minimal residual left leg weakness, and otherwise feels to be at her baseline. Her HR is regular rate and rhythm now. She is monitoring her HR at home, twice per day. She has f/up planned with Cardiology and Neurology at [facility]. 06/18/2024 C4D1 ddAC-T #left hip pain: comes [...] Family history of prostate cancer * Ashkenazi Cheondoism heritage * Personal history of known genetic mutation Sister is BRCA2? positive, Martha is negative by report Assessment & Plan: Martha Rodriguez is a 59 y.o. female with PMHx significant for but not limited to HTN, diabetes, migraines, medication non-compliance, and new diagnosis of multifocal invasive lobular carcinoma of the LEFT breast, ER+KY+Her2-, who presents today in scheduled follow-up for neoadjuvant ddAC-T. Since our last visit Martha developed an acute stroke of the medial left parietal lobe. During her admission she was also found to have atrial flutter - and this was thought to be the cause of the stroke. She has follow-up planned with Cardiology and Neurology. Martha and Jaylen were understandably concerned about possibility that chemotherapy caused her stroke. I let her know, there was no evidence to support an association of this chemotherapy regimen with stroke - and reminded her that she had multiple risk factors for stroke at baseline, and a strongfamily history. Similarly, I did not think the chemotherapy caused atrial flutter. I suspect the arrhythmia may have been present for some time, and that she developed a clot over time that then caused her stroke. I let her know that cardiac arrhythmias can be exacerbated by stress of any kind, andthat chemotherapy can be stressful on her body. This may have contributed in part to her arrhythmia. Fortunately, Martha is nearly fully recovered from these events, and now on a medication regime thatwill lower her risk of a recurrent event. Given her high risk breast cancer, and near complete functional recovery, I think the benefit of continuing chemotherapy outweighs the risk. Return precautions carefully reviewed. She knows to call right away for any chest pain, palpitations, lightheadedness, shortness of breath, leg swelling, falls, numbness/tingling, weakness, confusion, or other new orconcerning symptom. Martha and Jaylen voiced understanding and agreed with the plan. # Left breast cancer, ILC, ER positive, KY positive, HER2 negative - Risk scoring: UK [...] in 6 months (did not order today) #Acute stroke, left medial parietal lobe #Atrial flutter -f/up with Neurology and Cardiology -continue ASA, statin, apixaban, diltiazem -PT referral -Return precautions discussed Recommendations/Plan: Continue neoadjuvant ddACT Referral to PT Follow-up: RTC in 2 weeks for labs, MD/ADMINISTRATOR [employer] visit and C6D1 neoadj ddAC-T Review of Systems: Constitutional: Negative. [...] Current Medications: Current Outpatient Medications Medication Sig ondansetron (Zofran) 8 mg tablet Take 1 tablet by mouth every 8 hours as needed for Nausea. glipiZIDE (Glucotrol) 5 mg tablet prochlorperazine (Compazine) 10 mg tablet Take 1 [...] : Wt Readings from Last 3 Encounters: 07/10/24 81 kg (178 lb 9.2 oz) 06/18/24 80.2 kg (176 lb 12.9 oz) 06/04/24 80.6 kg (177 lb 11.1 oz) Temp Readings from Last 3 Encounters: 07/10/24 36.3 ??C (97.3 ??F) (Temporal) 06/18/24 36.2 ??C (97.2 ??F) (Temporal) 06/04/24 37 ??C (98.6 ??F) (Temporal) BP Readings from Last 3 Encounters: 07/10/24 149/88 06/18/24 118/80 06/04/24 (S) (!) 156/94 Pulse Readings from Last 3 Encounters: 07/10/24 63 06/18/24 (!) 110 06/04/24 88 ECOG PS: 1 Physical Exam Vitals reviewed. [...] baseline. on 06/04, no longer matted. Smallernode appreciated. On 07/10 - no nodes appreciated.) present. No tenderness, edema or bony tenderness. Breasts: No breast swelling. Right: No inverted nipple, mass or skin change. Left: Inverted nipple, mass (No longer tender (06/04). On 07/10 - masses still present.) and tenderness present. No skin change. Abdominal: [...] Labs: Lab Results Component Value Date WBC 8.46 07/10/2024 HGB 12.0 07/10/2024 HCT 35.6 (L) 07/10/2024 MCV 94.2 07/10/2024 PLATELET 411 (H) 07/10/2024 Lab Results Component Value Date NEUTROABS 6.10 07/10/2024 Lab Results Component Value Date NA 143 07/10/2024 K 4.0 07/10/2024 CL 107 07/10/2024 CO2 22 07/10/2024 BUN 21 (H) 07/10/2024 CREATININE 0.59 (L) 07/10/2024 GLUCOSE 194 07/10/2024 CALCIUM 9.2 07/10/2024 ESTGFR 103 07/10/2024 Lab Results Component Value Date ALT 14 07/10/2024 AST 12 07/10/2024 ALKPHOS 105 07/10/2024 BILITOT 0.2 07/10/2024 ALBUMIN 4.2 07/10/2024 PROT 6.5 07/10/2024 Pathology: Surgical Pathology s/p definitive breast surgery: Pending Breast Imaging: None new Annual mammogram: Per surgery; not yet due. Schedule pending surgical date. Imaging: DEXA scan: Pending MRI OF THE HEAD INDICATION: Transient ischemic attack (TIA). COMPARISON: None. TECHNIQUE: Multiplanar and multisequence imaging was performed without and with 8 mL of Gadavist intravenous contrast. FINDINGS: Intracranial hemorrhage: None. Cerebral and cerebellar parenchyma: There is small focal area of cortical T2 hyperintensity involving the medial left parietal lobe with associated restricted diffusion consistent with an acute infarct. There is no enhancing mass , mass effect, or shift of the midline structures. No abnormal susceptibility changes are present on GRE/SWI imaging. Normal vascular flow voids are present. Extra-axial lesions: None. Ventricles and extra-axial CSF spaces: Within normal limits for age and without hydrocephalus. Midline structures (pituitary, corpus callosum, pineal gland, vermis, and cerebellar tonsils): Within normal limits. Paranasal sinuses and mastoid air cells: Clear. Orbits: Normal. Soft tissues: Normal. Osseous structures: No significant abnormality. IMPRESSION: Small focal acute cortical infarct involving the medial left parietal lobe Electronically signed by: Timothy Krause MD 06/26/2024 4:28 PM Cardiac oncology: EKG: N/A TTE 05/05/2024: Interpretation [...] prior study for comparison. Total time spent: 80 minutes with > 50% spend in discussion of above, [id number] time and coordination of care with the patient today Rylie Patel MD Medical Oncology [facility] Promotion SpecialistLine Clearance Foreman, [facility] Office Cancer.[facility] documented in this encounter Plan of Treatment Upcoming Encounters Date Type Department Care Team (Late st Contact Info) Description 08/07/2024 9:00 AM EST Appointment Hematology [place] [address] 08/07/2024 10:00 AM EST Office Visit Hematology [place] [address] Rosalba Patel MD [facility] [place] [address] 08/07/2024 12:00 PM EST Appointment Hematology [place] [address] 08/21/2024 8:30 AM EST Appointment Hematology [place] [address] 08/21/2024 10:00 AM EST Office Visit Hematology [place] [address] Rosalba Patel MD [facility] [place] [address] 08/21/2024 11:30 AM EST Appointment Hematology [place] [address] Scheduled Referrals Name Type Priority Associated Diagnoses Orde r Schedule Referral to Physical Therapy Outpatient Referral Routine Acute stroke due to ischemia Ordered: 07/10/2024 documented as of this encounter Visit Diagnoses Diagnosis Acute stroke due to ischemia Malignant neoplasm of lower-outer quadrant of left breast of female, estrogen receptor positive Typical atrial flutter Atrial flutter documented in this encounter Care Teams Pearl Cutter Relationship Specialty Start Date End Date Nat Nicolas, CLERICAL ASSOCIATE [address] [place] [address] PCP - General Family Medicine 04/02/24 documented as of this encounter
--- OUTSIDE RECORDS SUMMARY | 2024-07-17 10:04 | XMS_ITS | Encounter Summary ---
Author Organization [facility] [place] [address] Care Team Providers Care Tire Wrapper Name Role Phone NicolasZacNatcarlos Malloy APRN Primary [...] AM EST Appointment [facility] [place] [address] 08/07/2024 10:00 AM EST Office Visit Hematology [place] [address] Rosalba Patel MD [facility] [place] [address] 08/07/2024 12:00 PM EST Appointment Hematology [place] [address] 08/21/2024 8:30 AM EST Appointment H[place]ology [place] [address] 08/21/2024 10:00 AM EST Office Visit Hematology [place] [address] Rosalba Patel MD [facility] [place] [address] 08/21/2024 11:30 AM EST Appointment Hematology [place] [address] documented as of this encounter Visit Diagnoses Not on filedocumented in this encounter Care Teams Tire Wrapper Relationship Specialty Start Date End Date Nat Nicolas APRN [address] [place] [address] PCP - General Family Medicine 04/02/24 documented as of this encounter
--- OUTSIDE RECORDS SUMMARY | 2024-07-17 10:04 | XMS_ITS | Encounter Summary ---
[place] [address] Care Team Providers Care Electronics Engineering Technologist Name Role Phone Nat Nicolas APRN Primary Care Provider Encounter Details Date Type Department Care Team (Latest Contact Info) Description 06/11/2024 2:00 PM EST TH Visit (TeleHealth) Hematology [place] [address] Breezy Long, [facility] Malignant neoplasm of lower-outer quadrant of left [...] this encounter Progress Notes * Breezy Long RP - 06/11/2024 2:00 PM EST The patient's current telephone number on file is incorrect. Martha was subsequently unable to be reached for her CINV follow up visit today. The clinic pharmacist will plan to follow up with Martha larose next infusion appointment. documented in this encounter Plan of Treatment Upcoming Encounters Date Type Department Care Team (Late st Contact Info) Description 08/07/2024 9:00 AM EST Appointment Hematology [place] [address] 08/07/2024 10:00 AM EST Office Visit Hematology and Oncology at [place] [phone] Rosalba Patel MD [facility] [place] [address] 08/07/2024 12:00 PM EST Appointment Hematology [place] [address] 08/21/2024 8:30 AM EST Appointment Hematology [place] [address] 08/21/2024 10:00 AM EST Office Visit Hematology [place] [address] Rosalba Patel MD [facility] [place] [address] 08/21/2024 11:30 AM EST Appointment Hematology [place] [address] documented as of this encounter Visit Diagnoses Diagnosis Malignant neoplasm of lower-outer quadrant of left breast of female, estrogen receptor positive documented in this encounter Care Teams Electronics Engineering Technologist Relationship Specialty Start Date End Date Nat Nicolas APRN [address] [place] [address] PCP - General Family Medicine 04/02/24 documented as of this encounter
--- OUTSIDE RECORDS SUMMARY | 2024-07-17 10:04 | XMS_ITS | Encounter Summary ---
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 Nat Nicolas APRN [address] [place] [address] [facility] [address] [place] [phone] Referral ID Status Reason Start Date Expiration Date Visits Requested Visits Authorized [id number] Authorized Consult, Test & Treat 07/13/2024 07/13/2025 1 1 Encounter Details Date Type Department Care Team (Late st Contact Info) Description 07/13/2024 Transcribe Orders eD Incoming Referrals [phone] Nat Nicolas APRN [address] [facility] [place] [address] 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 (Primary Dx) Social History Tobacco Use Types [...] AM EST Appointment Hematology [place] [address] 08/07/2024 10:00 AM EST Office Visit Hematology [place] [address] Rosalba Patel MD [facility] [place] [address] 08/07/2024 12:00 PM EST Appointment Hematology [place] [address] 08/21/2024 8:30 AM EST Appointment Hematology [place] [address] 08/21/2024 10:00 AM EST Office Visit Hematology [place] [address] Rosalba Patel MD [facility] [place] [address] 08/21/2024 11:30 AM EST Appointment Hematology [place] [address] Scheduled Referrals Name Type Priority Associated Diagnoses Orde r Schedule Referral to Neurology Outpatient Referral Routine 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
--- OUTSIDE RECORDS SUMMARY | 2024-07-17 10:04 | XMS_ITS | Encounter Summary ---
Author Organization [facility] [place] [address] Care Team Providers Care Lease Out Worker Name Role Phone NicolasZacNatcarlos Malloy APRN Primary Care Provider Encounter Details Date Type Department Care Team (Latest Contact Info) Description 07/10/2024 Travel Social History Tobacco Use Types Packs/Day [...] Appointment Hematology [facility] [place] at [facility] [place] 2[place] [address] 08/07/2024 10:00 AM EST Office Visit Hematology [place] [address] Rosalba Patel MD [facility] [place] [address] 08/07/2024 12:00 PM EST Appointment Hematology [place] [address] 08/21/2024 8:30 AM EST Appointment Hematology [place] [address] 08/21/2024 10:00 AM EST Office Visit Hematology [place] [address] Rosalba Patel MD [facility] [place] [address] 08/21/2024 11:30 AM EST Appointment Hematology [place] [address] documented as of this encounter Visit Diagnoses Not on filedocumented in this encounter Care Teams Lease Out Worker Relationship Specialty Start Date End Date Nat Nicolas APRN [address] [place] [address] PCP - General Family Medicine 04/02/24 documented as of this encounter
--- OUTSIDE RECORDS SUMMARY | 2024-07-17 10:04 | XMS_ITS | Encounter Summary ---
[place] [address] Care Team Providers Care Early Childhood Education Specialist Name Role Phone Nat Nicolas APRN Primary Care Provider Encounter Details Date Type Department Care Team (Late st Contact Info) Description 06/30/2024 Telephone Hematology [place] [phone] Lakesha Johnson RN Social History Tobacco Use Types Packs/Day [...] encounter Miscellaneous Notes * Telephone Encounter - Lakesha Johnson RN - 06/30/2024 11:25 AM ESTSummary: F/U on [facility] Admission Called Pt to check on her since hospital d/c on Sunday. Voicemail not set up. Unable to leave a message. ----- Message from Juani Bansal RN sent at 06/26/2024 11:26 AM EST ----- Regarding: follow up admission at [facility] for TIA follow up admission at [facility] for TIA documented in this encounter Plan of Treatment Upcoming Encounters Date Type Department Care Team (Late st Contact Info) Description 08/07/2024 9:00 AM EST Appointment Hematology [place] [address] 08/07/2024 10:00 AM EST Office Visit Hematology [place] [address] Rosalba Patel MD [facility] [place] [address] 08/07/2024 12:00 PM EST Appointment Hematology [place] [address] 08/21/2024 8:30 AM EST Appointment Hematology [place] [address] 08/21/2024 10:00 AM EST Office Visit Hematology [place] [address] Rosalba Patel MD [facility] [place] [address] 08/21/2024 11:30 AM EST Appointment Hematology [place] [address] documented as of this encounter Visit Diagnoses Not on filedocumented in this encounter Care Teams Early Childhood Education Specialist Relationship Specialty Start Date End Date Nat Nicolas APRN [address] [place] [address] PCP - General Family Medicine 04/02/24 documented as of this encounter
--- OUTSIDE RECORDS SUMMARY | 2024-07-17 10:04 | XMS_ITS | Encounter Summary ---
[place] [address] Care Team Providers Care Mail Order Clerk Name Role Phone Nat Nicolas APRN Primary Care Provider Reason for Visit * Treatment/Therapy Plan Authorization (Routine) - Authorized Specialty Diagnoses / Procedures Referred By Contgiuliana t Referred To Contact Hematology and Oncology Diagnoses Malignant neoplasm of lower-outer quadrant of left breast of female, estrogen receptor positive Type 2 diabetes mellitus without complication, without long-term current use of insulin Rosalba Patel MD [facility] [place] [address] [address] Referral ID Status Reason Start Date Expiration Date V isits Requested Visits Authorized [id number] Authorized 04/29/2024 04/29/2025 99 [id number] Encounter Details Date Type Department Care Team (Latest Contact Info) Description 06/18/2024 12:30 PM EST - 06/18/2024 1:02 PM EST Hospital Encounter [place]ematology [place] [address] Malignant neoplasm of lower-outer quadrant [...] Date glipiZIDE (Glucotrol) 5 mg tablet 05/29/2024 prochlorperazine (Compazine) 10 mg tablet Take 1 tablet by mouth every 6 hours as needed for Nausea. 30 tablet 3 05/08/2024 OLANZapine (ZyPREXA) 5 mg tablet Take 1 tablet by mouth nightly. On nights 1-4 of chemotherapy. 16 tablet 1 05/08/2024 lidocaine-prilocaine (EMLA) CreamIndications:Malign ant neoplasm of lower-outer quadrant of left breast of female, estrogen receptor positive Apply topically 60 minutes prior to accessing port. Apply a thick layer of cream to designated site of intact skin. Cover site with occlusive dressing. 30 g 1 04/30/2024 hydroCHLOROthiazide 12.5 mg tablet Take 12.5 mg by mouth. 11/16/2023 lisinopriL (Zestril) 20 mg Tablet Take 0.5 [...] tablet Take 25 mg by mouth daily. documented as of this encounter Progress Notes [...] AM EST Appointment Hematology [place] [address] 08/07/2024 10:00 AM EST Office Visit Hematology and Oncology at [place] [phone] Rosalba Patel MD [facility] [place] [address] 08/07/2024 12:00 PM EST Appointment H[place]ology [place] [address] 08/21/2024 8:30 AM EST Appointment [place]ematology [place] [address] 08/21/2024 10:00 AM EST Office Visit [place]ematology [place] [address] Rosalba Patel MD [facility] [place] [address] 08/21/2024 11:30 AM EST Appointment [place]ology [place] [phone] documented as of this encounter Procedures Procedure [...] 39(H) <=25 unit/mL 06/18/2024 2:14 PM EST [facility] Comment:This result was gene rated using a Tani Elías immunoassay. Results obtained from other methods or manufacturers cannot be used interchangeably with this method. Blood VENOUS BLOOD SPECIMEN / Unknown Venipuncture / Unknown 06/18/2024 1:22 PM EST 06/18/2024 1:36 PM EST Rosalba Patel MD CHEMISTRY ORDERABLES [facility] [place] [place] [address] * (ABNORMAL) Comprehensive metabolic panel Non-fasting (06/18/2024 1:22 PM EST) Glucose 305(H) 65 - 199 mg/dL 06/18/2024 2:08 PM [facility] Comment:Glucose Concentratio n >=200 mg/dL plus symptoms is consistent with Diabetes Mellitus. Blood Urea Nitrogen 20(H) 8 - 18 mg/dL 06/18/2024 2:08 PM [facility] Creatinine 0.63(L) 0.70 - 1.20 mg/dL 06/18/2024 2:08 PM [facility] Sodium 141 135 - 145 mMol/L 06/18/2024 2:08 PM [facility] Potassium 3.9 3.5 - 5.0 mMol/L 06/18/2024 2:08 PM [facility] Chloride 99 98 - 107 mMol/L 06/18/2024 2:08 PM [facility] Carbon Dioxide 25 22 - 31 mMol/L 06/18/2024 2:08 PM [facility] Anion Gap 17(H) 5 - 15 mMol/L 06/18/2024 2:08 PM [facility] Calcium 9.4 8.5 - 10.5 mg/dL 06/18/2024 2:08 PM [facility] Protein, Total 7.0 6.1 - 8.0 g/dL 06/18/2024 2:08 PM [facility] Albumin 4.4 3.2 - 5.2 g/dL 06/18/2024 2:08 PM [facility] Aspartate Aminotransferase 12 <=30 unit/L 06/18/2024 2:08 PM [facility] Alanine Aminotransferase 17 0 - 30 unit/L 06/18/2024 2:08 PM [facility] Alkaline Phosphatase 172(H) 35 - 105 unit/L 06/18/2024 2:08 PM [facility] Bilirubin, Total 0.2 <=1.3 mg/dL 06/18/2024 2:08 PM [facility] Est Glomerular Filtration Rate - Female 102 mL/min/1. 73 m?? 06/18/2024 2:08 PM [facility] Comment: This patient's estimated [...] Foundation Fasting Status No 06/18/2024 2:08 PM [facility] Blood VENOUS BLOOD SPECIMEN / Unknown Venipuncture / Unknown 06/18/2024 1:22 PM EST 06/18/2024 1:36 PM EST Rosalba Patel MD CHEMISTRY ORDERABLES Performing Organization Address City/State/[facility] Co de Phone Number [facility] [place] [address] * (ABNORMAL) CBC (with Diff) (06/18/2024 1:22 PM EST) White Blood Cell 10.92(H) 4.00 - 9.50 x10(3)/mc L 06/18/2024 1:44 PM [facility] Red Blood Cell 4.05 4.00 - 5.21 x10(6)/mc L 06/18/2024 1:44 PM [facility] Hemoglobin 12.6 11.7 - 15.5 g/dL 06/18/2024 1:44 PM [facility] Hematocrit 37.0 35.7 - 45.8 % 06/18/2024 1:44 PM [facility] Mean Cell Volume 91.4 82.6 - 94.4 fL 06/18/2024 1:44 PM [facility] Mean Cell Hemoglobin 31.1 27.1 - 32.0 pg 06/18/2024 1:44 PM [facility] Mean Cell Hemoglobin Concentration 34.1 31.7 - 35.0 g/dL 06/18/2024 1:44 PM [facility] Platelet 287 145 - 357 x10(3)/mc L 06/18/2024 1:44 PM [facility] Mean Platelet Volume 10.4 7.6 - 12.9 fL 06/18/2024 1:44 PM [facility] RDW Standard Deviation 46.6(H) 37.0 - 46.0 fL 06/18/2024 1:44 PM [facility] RDW coefficient of variation 14.9(H) 11.5 - 14.1 % 06/18/2024 1:44 PM [facility] NRBC% auto 0.0 % 06/18/2024 1:44 PM [facility] NRBC Absolute <0.01 <0.01 x10(3)/mc L 06/18/2024 1:44 PM [facility] Neutrophil % 74.6 % 06/18/2024 1:44 PM [facility] Neutrophil Absolute (ANC) - Automated 8.14(H) 1.70 - 6.10 x10(3)/mc L 06/18/2024 1:44 PM [facility] Lymph % 12.9 % 06/18/2024 1:44 PM [facility] Lymph Absolute 1.41 0.90 - 3.20 x10(3)/mc L 06/18/2024 1:44 PM [facility] Monocyte % 7.7 % 06/18/2024 1:44 PM [facility] Monocyte Absolute 0.84 0.30 - 0.90 x10(3)/mc L 06/18/2024 1:44 PM [facility] Eos % 0.8 % 06/18/2024 1:44 PM [facility] Eos Absolute 0.09 0.00 - 0.40 x10(3)/mc L 06/18/2024 1:44 PM [facility] Basophil % 0.7 % 06/18/2024 1:44 PM EST [facility] Baso Absolute 0.08 0.00 - 0.10 x10(3)/mc L 06/18/2024 1:44 PM EST [facility] Immature Gran % 3.3 % 1:44 PM EST [facility] Immature Gran Absolute 0.36(H) 0.00 - 0.04 x10(3)/mc L 06/18/2024 1:44 PM EST [facility] Blood VENOUS BLOOD SPECIMEN / Unknown Venipuncture / Unknown 06/18/2024 1:22 PM EST 06/18/2024 1:36 PM EST Rosalba Patel MD HEMATOLOGY ORDERABLE S Performing Organization Address City/State/[facility] Co de Phone Number [facility] [place] [place] [address] documented in this encounter Visit Diagnoses Diagnosis [...] PRN, Starting on Sun06/18/24 at 1308, Until Sun06/19/24 at 0433, Line Care, Flush pertains to all indwelling lines. Flush per protocol found in the job aid using the link provided on this medication record. Refer to Intravenous (IV) Job Aid: Adult Flushing & Catheter Care (5372) job aid for additional information regarding guidelines and administration., Routine Given 06/18/2024 1:22 PM EST 20 mLs documented in this encounter Care Teams Mail Order Clerk Relationship Specialty Start Date End Date Nat Nicolas APRN [address] [place] [address] PCP - General Family Medicine 9/11/24 documented as of this encounter
--- OUTSIDE RECORDS SUMMARY | 2024-07-17 10:04 | XMS_ITS ---
Author Organization [facility] [place] [address] Care Team Providers Care Wet Press Tender Name Role Phone Maria Isabel Natcarlos Malloy APRN Primary Care Provider Active Problems Problem Noted Date Diagnosed Date Diabetes mellitus 05/23/2024 Malignant neoplasm of lower- outer quadrant of left breast of female, estrogen receptor positive 04/07/2024 Overview (04/07/2024): 04/02/24 bx [facility] [place] [facility]: ER+/[place]+/HER2 pending left breast ILC, intermediate grade 04/02/24 left breast U/S bx [facility]: 2.4 cm, 3:00, 4 FN HTN (hypertension) 02/14/2013 Migraine headache 02/14/2013 Current Oncology Plans [facility] AMB ONC BREAST CANCER - DOXOrubicin / CYCLOPHOSPHAMIDE (DOSE DENSE) followed by PACLitaxeL (DOSE DENSE)* Plan Start Date:05/07/2024 Plan Provider:Rosalba Patel MD Linked Problems Malignant neoplasm of lower- outer quadrant of left breast of female, estrogen receptor positiveType 2 diabetes mellitus without complication, without long- term current use of insulin Treatment Medications Current Day (Day 1 , Cycle 6 - Planned for 07/24/2024) Next Day (Day 1, Cycle 7 - Planned for 08/07/2024) cycloPHOSphamide (Cytoxan) i n sodium chloride 0.9% 250 mL infusionDOXOrubicin (Adriamycin)PACLitaxeL (Taxol) in Non-PVC sodium chloride 0.9% 500 mL infusion PACLitaxeL (Taxol) 333 mg in sodium chloride 0.9% Non-PVC 555.5 mL infusion PACLitaxeL (Taxol) 333 mg in sodium chloride 0.9% Non-PVC 555.5 mL infusion Past Plans No past plan information found. Radiation Treatments * No radiation treatments are documented for this patient in [facility]. Treatments may have been administered in another system. Lifetime Dose Tracking * Chemical Lifetime Dose Automatic Entry Manual Entr y doxorubicin 239.061 mg/m2 (456 mg) 239.061 mg/m2 (456 mg) 0 mg/m2 (0 mg)
--- OUTSIDE RECORDS SUMMARY | 2024-07-17 10:04 | XMS_ITS | Encounter Summary ---
[place] [address] Care Team Providers Care International Marketing Coordinator Name Role Phone Maria Isabel Nat Malloy APRN Primary Care Provider Reason for Visit * Reason Onset Date Comments Results 06/09/2024 Encounter Details Date Type Department Care Team (Late st Contact Info) Description 06/09/2024 Telephone Hematology [place] [phone] Lázaro Fong V, [facility] Hematology/[place] [address] Results Social History Tobacco Use Types Packs/Day [...] is provided below. Please be advised that [place] law requires that all health care workers respect the confidentiality of this information and not pass it along to other health careproviders, insurance companies, or individuals without the written permission of the patient. The [facility]amil[facility] welcomes any questions about these matters. Our phone number is: [phone]. On 05/19/2024 Martha was seen for genetic counseling and subsequently underwent genetic testing for a hereditary predisposition to cancers in eight major organ systems including breast, gynecologic, gastrointestinal, endocrine, genitourinary, skin, brain/nervous system, sarcoma and hematologic. Following are the results of this test. Result: [facility]'s CancerNext-Expanded +RNAinsight Panel showed no pathogenic mutations [...] NF1, NF2, NTHL1, PALB2, PHOX2B, PMS2, POT1, JTGFX5X, PTCH1, PTEN, RAD51C, RAD51D, RB1, RET, SDHA, SDHAF2, SDHB, SDHC, SDHD, SMAD4, SMARCA4, SMARCB1, SMARCE1, STK11, SUFU, OQWH758, TP53, TSC1, TSC2 and VHL (sequencing and [...] and/or Pap smears as recommended by Martha's in class special education teacher or primary care provider. Given the family [...] Periodic colonoscopy screening as recommended by Martha's crisis manager. Skin cancer screening Skin cancer screening and sun protection are important for everyone, regardless of genetic predisposition. Consideration of routine dermatologic/skin exams, as recommended by Martha's primary care provider or safety intern. documented in this encounter Plan of Treatment Upcoming Encounters Date Type Department Care Team (Late st Contact Info) Description 08/07/2024 9:00 AM EST Appointment H[place]ology [place] [address] 08/07/2024 10:00 AM EST Office Visit Hematology [place] [address] Rosalba Patel MD [facility] DR MEDICAL [place] [address] 08/07/2024 12:00 PM EST Appointment Hematology [place] [address] 08/21/2024 8:30 AM EST Appointment Hematology [place] [address] 08/21/2024 10:00 AM EST Office Visit [place]ematology [place] [address] Rosalba Patel MD [facility] DR MEDICAL [place] [address] 08/21/2024 11:30 AM EST Appointment Hematology [place] [address] documented as of this encounter Visit Diagnoses Not on filedocumented in this encounter Care Teams International Marketing Coordinator Relationship Specialty Start Date End Date Nat Nicolas APRN [address] [place] [address] PCP - General Family Medicine 04/02/24 documented as of this encounter
--- OUTSIDE RECORDS SUMMARY | 2024-07-17 10:04 | XMS_ITS | Encounter Summary ---
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, estrogen receptor positive Type 2 diabetes mellitus without complication, without long-term current use of insulin Rosalba Patel MD [facility] [place] [address] [address] Referral ID Status Reason Start Date Expiration Date V isits Requested Visits Authorized [id number] Authorized 04/29/2024 04/29/2025 99 [id number] Encounter Details Date Type Department Care Team (Latest Contact Info) Description 07/10/2024 7:56 AM EST - 07/10/2024 11:59 PM EST Hospital Encounter Hematology [place] [address] Malignant neoplasm of lower-outer quadrant [...] Sig Dispensed Refills Start Date End Date ondansetron (Zofran) 8 mg tablet Take 1 tablet by mouth every 8 hours as needed for Nausea. 20 tablet 2 06/18/2024 glipiZIDE (Glucotrol) 5 mg tablet 05/29/2024 prochlorperazine [...] as of this encounter Progress Notes * Rosy Calderon RN - 07/10/2024 11:55 AM EST Patient Name: Martha Rodriguez Patient Age: 59 y.o. Birthdate: 1965 Admit date: 07/10/2024 Attending Physician: No att. providers found TIME TREATMENT STARTED: 1130 TIME TREATMENT ENDED: 161 Martha Rodriguez, 59 y.o. female with diagnosis of 1. Malignant neoplasm of lower-outer quadrant of left breast of female, estrogen receptor positive 2. Type 2 diabetes mellitus without complication, without long-term current use of insulin is here for chemotherapy infusion of Paclitaxel. PROTOCOL: NA CYCLE: 5 DAY: 1 S: Pt. offers no complaints at this time. Chemo checks performed per policy. Reviewed plan of care for Infusion visit, patient verbalized understanding of plan as outlined. Patient discharged to home O: Patient's Chemotherapy orders independently verified for correct drug name, route and dosage perpatient's height, weight and BSA by Rosy Calderon, HOANG/pharmacy RN and Pharmacist. REACTIONS (DESCRIPTION, TIME, INTERVENTION AND EFFECTIVENESS) None noted. A: Pt. Tolerated treatment well. Martha Rodriguez confirms that all questions and issues have been addressed. Fluid intake, exercise, watching for a fever and handwashing discussed with patient. P: Return to clinic per routine. documented in this encounter Plan of Treatment Upcoming Encounters Date Type Department Care Team (Late st Contact Info) Description 08/07/2024 9:00 AM EST Appointment Hematology [place] [address] 08/07/2024 10:00 AM EST Office Visit Hematology [place] [address] Rosalba Patel MD [facility] [place] [address] 08/07/2024 12:00 PM EST Appointment Hematology [place] [address] 08/21/2024 8:30 AM EST Appointment Hematology [place] [address] 08/21/2024 10:00 AM EST Office Visit Hematology [place] [address] Rosalba Patel MD [facility] [place] [address] 08/21/2024 11:30 AM EST Appointment Hematology [place] [address] documented as of this encounter Procedures Procedure Name Priority Date/Time Associated Diagnosis Comments POC, GLUCOSE Routine 07/10/2024 11:39 AM EST documented in this encounter Results * (ABNORMAL) POC, GLUCOSE (07/10/2024 11:39 AM EST) [facility] Signature Glucometer, POC 227(H) 65 - 199 mg/dL 07/10/2024 11:40 AM EST [facility] Comment:Supplemental ranges: <140 mg/dL before meals <180 mg/dL all other times of the day. Blood CAPILLARY BLOOD / Unknown 07/10/2024 11:39 AM EST 07/10/2024 11:40 AM EST Unknown POINT OF CARE TEST O RDERABLES [facility] [place] [address] * (ABNORMAL) Cancer antigen 15-3 (07/10/2024 8:11 AM EST) CA 15-3 26(H) <=25 unit/mL 07/10/2024 10:16 AM EST [facility] Comment:This result was gene rated using a Tani Elías immunoassay. Results obtained from other methods or manufacturers cannot be used interchangeably with this method. Blood VENOUS BLOOD SPECIMEN / Unknown Venipuncture / Unknown 07/10/2024 8:11 AM EST 07/10/2024 8:27 AM EST Rosalba Patel MD CHEMISTRY ORDERABLES Performing Organization Address [facility]/ZIP Co de Phone Number [facility] [place] [address] * (ABNORMAL) Comprehensive metabolic panel Non-fasting (07/10/2024 8:11 AM EST) Pathologist [facility] Glucose 194 65 - 199 mg/dL 07/10/2024 9:04 AM [facility] Comment:Glucose Concentratio n >=200 mg/dL plus symptoms is consistent with Diabetes Mellitus. Blood Urea Nitrogen 21(H) 8 - 18 mg/dL 07/10/2024 9:04 AM [facility] Creatinine 0.59(L) 0.70 - 1.20 mg/dL 07/10/2024 9:04 AM [facility] Sodium 143 135 - 145 mMol/L 07/10/2024 9:04 AM [facility] Potassium 4.0 3.5 - 5.0 mMol/L 07/10/2024 9:04 AM [facility] Chloride 107 98 - 107 mMol/L 07/10/2024 9:04 AM [facility] Carbon Dioxide 22 22 - 31 mMol/L 07/10/2024 9:04 AM [facility] Anion Gap 14 5 - 15 mMol/L 07/10/2024 9:04 AM [facility] Calcium 9.2 8.5 - 10.5 mg/dL 07/10/2024 9:04 AM [facility] Protein, Total 6.5 6.1 - 8.0 g/dL 07/10/2024 9:04 AM [facility] Albumin 4.2 3.2 - 5.2 g/dL 07/10/2024 9:04 AM [facility] Aspartate Aminotransferase 12 <=30 unit/L 07/10/2024 9:04 AM [facility] Alanine Aminotransferase 14 0 - 30 unit/L 07/10/2024 9:04 AM [facility] Alkaline Phosphatase 105 35 - 105 unit/L 07/10/2024 9:04 AM [facility] Bilirubin, Total 0.2 <=1.3 mg/dL 07/10/2024 9:04 AM [facility] Est Glomerular Filtration Rate - Female 103 mL/min/1. 73 m?? 07/10/2024 9:04 AM [facility] Comment: This patient's estimated GFR [...] Calculator [employer] Fasting Status No 07/10/2024 9:04 AM [facility] Blood VENOUS BLOOD SPECIMEN / Unknown Venipuncture / Unknown 07/10/2024 8:11 AM EST 07/10/2024 8:27 AM EST Rosalba Patel MD CHEMISTRY ORDERABLES [facility] [place] [address] * (ABNORMAL) CBC (with Diff) (07/10/2024 8:11 AM EST) White Blood Cell 8.46 4.00 - 9.50 x10(3)/mc L 07/10/2024 8:35 AM [facility] Red Blood Cell 3.78(L) 4.00 - 5.21 x10(6)/mc L 07/10/2024 8:35 AM [facility] Hemoglobin 12.0 11.7 - 15.5 g/dL 07/10/2024 8:35 AM [facility] Hematocrit 35.6(L) 35.7 - 45.8 % 07/10/2024 8:35 AM [facility] Mean Cell Volume 94.2 82.6 - 94.4 fL 07/10/2024 8:35 AM [facility] Mean Cell Hemoglobin 31.7 27.1 - 32.0 pg 07/10/2024 8:35 AM [facility] Mean Cell Hemoglobin Concentration 33.7 31.7 - 35.0 g/dL 07/10/2024 8:35 AM [facility] Platelet 411(H) 145 - 357 x10(3)/mc L 07/10/2024 8:35 AM [facility] Mean Platelet Volume 10.6 7.6 - 12.9 fL 07/10/2024 8:35 AM [facility] RDW Standard Deviation 54.1(H) 37.0 - 46.0 fL 07/10/2024 8:35 AM [facility] RDW coefficient of variation 15.9(H) 11.5 - 14.1 % 07/10/2024 8:35 AM [facility] NRBC% auto 0.0 % 07/10/2024 8:35 AM [facility] NRBC Absolute <0.01 <0.01 x10(3)/mc L 07/10/2024 8:35 AM [facility] Neutrophil % 72.0 % 07/10/2024 8:35 AM [facility] Neutrophil Absolute (ANC) - Automated 6.10 1.70 - 6.10 x10(3)/mc L 07/10/2024 8:35 AM [facility] Lymph % 15.0 % 07/10/2024 8:35 AM [facility] Lymph Absolute 1.27 0.90 - 3.20 x10(3)/mc L 07/10/2024 8:35 AM [facility] Monocyte % 8.9 % 07/10/2024 8:35 AM [facility] Monocyte Absolute 0.75 0.30 - 0.90 x10(3)/mc L 07/10/2024 8:35 AM [facility] Eos % 2.6 % 07/10/2024 8:35 AM [facility] Eos Absolute 0.22 0.00 - 0.40 x10(3)/mc L 07/10/2024 8:35 AM [facility] Basophil % 1.1 % 07/10/2024 8:35 AM [facility] Baso Absolute 0.09 0.00 - 0.10 x10(3)/mc L 07/10/2024 8:35 AM [facility] Immature Gran % 0.4 % 8:35 AM [facility] Immature Gran Absolute <0.04 0.00 - 0.04 x10(3)/mc L 07/10/2024 8:35 AM [facility] Blood VENOUS BLOOD SPECIMEN / Unknown Venipuncture / Unknown 07/10/2024 8:11 AM EST 07/10/2024 8:27 AM EST Rosalba Patel MD HEMATOLOGY ORDERABLE S [facility] [place] [address] documented in this encounter Visit Diagnoses Diagnosis Malignant neoplasm of lower-outer quadrant of left breast of female, estrogen receptor positive Type 2 diabetes mellitus without complication, without long-term current use of insulin documented in this encounter Administered Medications Inactive Administered Medications - up to 3 most recent administrations Medication Order MAR Action Action Date Dose Rate Site dexAMETHasone (PF) (Decadron) (10 mg/mL) injection 10 mg 10 mg, Intravenous, ONCE, 1 dose, On Millie 07/10/24 at 1045, Administer 30 minutes prior to PACLitaxeL. Given 07/10/2024 11:41 AM EST 10 mg diphenhydrAMINE (Benadryl) capsule 50 mg 50 mg, Oral, ONCE, 1 dose, On Millie 07/10/24 at 1015, Administer 30 minutes prior to PACLitaxeL., Routine Given 07/10/2024 11:41 AM EST 50 mg famotidine (Pepcid) (10 mg/mL) injection 20 mg 20 mg, Intravenous, ONCE, 1 dose, On Millie 07/10/24 at 1045, Administer 30 minutes prior to PACLitaxeL. Given 07/10/2024 11:41 AM EST 20 mg insulin NPH human isophane (HumuLin N,NovoLIN N) (100 unit/mL) subcutaneous injection vial 5 Units 5 Units, Subcutaneous, ONCE, 1 dose, On Millie 07/10/24 at 1015, Please give to reduce glucose spikes with dexamethasone, Routine Given 07/10/2024 11:45 AM EST 5 Units ondansetron (Zofran) tablet 8 mg 8 mg, Oral, ONCE, 1 dose, On Millie 07/10/24 at 1015, Administer prior to chemotherapy, Routine Given 07/10/2024 11:41 AM EST 8 mg PACLitaxeL (Taxol) 333 mg in sodium chloride 0.9% Non-PVC 555.5 mL infusion 333 mg (rounded from 332.5 mg = 175 mg/m2/dose ? 1.9 m2 Treatment Plan BSA from Recorded weight), Intravenous, ONCE, 1 dose, On Millie 07/10/24 at 1115, Administer over 3 Hours, Warning Vesicant/Irritant Medication Priming Step: Always start at rate of 60 mL/hr for 1 minute - RN to remain with patient. Step 1: Start infusion at a rate of 1.9 mL/hr for 15 minutes. (1% of final rate) Step 2: Increase rate to 18.5 mL/hr for 15 minutes. (10% of final rate) Step 3: Increase to regular infusion rate 185.2 mL/hr for remainder of infusion. (100% of final rate) Warning Vesicant/Irritant Medication , Should this infusion follow 3 Step Titration (Initial Dosing) or Standard Infusion? Initial: 3 Step Titration New Bag 07/10/2024 12:24 PM EST 333 mg 185.2 mL/hr pegfilgrastim (Neulasta Onpro) (6 mg/0.6 mL) injection kit 6 mg 6 mg, Subcutaneous, ONCE, 1 dose, On Millie 07/10/24 at 1015, Allow the prefilled syringe co-packaged with the on-body injector to reach room temperature at least 30 minutes prior to administration., Routine, This agent is restricted to outpatient use. Is this drug being given as an outpatient? Yes Given 07/10/2024 4:16 PM EST 6 mg documented in this encounter Care Teams Aquatics Director Relationship Specialty Start Date End Date Nat Nicolas APRN [address] [place] [address] PCP - General Family Medicine 04/02/24 documented as of this encounter
--- OUTSIDE RECORDS SUMMARY | 2024-07-17 10:04 | XMS_ITS | Encounter Summary ---
Author Organization [facility] [place] [address] Care Team Providers Care Staffing And Scheduling Coordinator Name Role Phone Nat Nicolas APRN Primary Care Provider Encounter Details Date Type Department Care Team (Late st Contact Info) Description 07/01/2024 Notes [place] [address] Nat Hess, CHRISTIANO Social History Tobacco Use [...] Progress Notes * Nat Hess MSW - 07/01/2024 3:42 PM ESTSummary: Comprehensive Breast Program: Social Work Note Per referral from triage nurse Gabriela Sosa RN I attempt to contact Martha to assess for needed supports and resources following recent hospitalization. Unable to LM as voicemail is not set up. We're able to connect on 07/03/2024. Martha is uncertain about her employment future since having a stroke; she has appointments upcoming with neuro and cardiology. The [facility] is helping her apply for SSDI in case she qualifies, but in the meantime Martha is worried about making ends meet. She is two months behind in rent and interested in assistance for her car payment. We review options for additional breast cancer support foundations, state fuel assistance and food stamps, as well as [facility] through the cancer center. I send information on these resources to her and her 's emails as follows: The [employer]: [employer] Nick Application We also have the food program here at the [facility], and you can go online and order groceries for pickers material handlers the next time you're here. Click on this link for the online ordering platform. You can open the link on your phone or computer and select from available groceries in real time. At checkout, you can select a time and date for the order and choose either takeout (pickers material handlers your order at the pantry in 2K) or curbside (delivery right to your vehicle). Please note that when you submit your first online order, the [employer] staff will reach out to you with a one-time survey that must be completed before they can fill your order. This is to ensure that we're only filling orders from our patients, and to make sure we're reaching everyone we should. After the survey is complete you'll be in our database, and there will be no additional verification needed for subsequent orders. Also check out the various benefits through the [facility], as you might qualify for things like food stamps or fuel assistance - anything that will shave costs off! Financial & Employment [employer] Completed today: Care Coordination Nat ???Fide?? LAUREL Hess Social Work, Breast and Gynecology Oncology [email or web address] documented in this encounter Plan of Treatment Upcoming Encounters Date Type Department Care Team (Late st Contact Info) Description 08/07/2024 9:00 AM EST Appointment Hematology [place] [address] 08/07/2024 10:00 AM EST Office Visit Hematology [place] [address] Rosalba Patel MD [facility] [place] [address] 08/07/2024 12:00 PM EST Appointment Hematology [place] [address] 08/21/2024 8:30 AM EST Appointment Hematology [place] [address] 08/21/2024 10:00 AM EST Office Visit Hematology [place] [address] Rosalba Patel MD [facility] [place] [address] 08/21/2024 11:30 AM EST Appointment Hematology [place] [address] documented as of this encounter Visit Diagnoses Not on filedocumented in this encounter Care Teams Staffing And Scheduling Coordinator Relationship Specialty Start Date End Date Nat Nicolas APRN [address] [place] [address] PCP - General Family Medicine 04/02/24 documented as of this encounter
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
--- OUTSIDE RECORDS SUMMARY | 2024-07-17 10:04 | XMS_ITS | Encounter Summary ---
[place] [address] Care Team Providers Care Drop Wire Stringer Name Role Phone Nat Nicolas APRN Primary Care Provider Reason for Visit * Reason Onset Date Comments Tachycardia 06/24/2024 Follow up Encounter Details Date Type Department Care Team (Late st Contact Info) Description 06/24/2024 Telephone Hematology [place] [address] Juani Sosa RN Tachycardia (Follow up) Social History Tobacco Use Types Packs/Day Years [...] Telephone Encounter - Juani Sosa RN - 06/24/2024 9:26 AM ESTSummary: Tachycardia Scheduling - can we track down the ED note for this visit? I don't see anything in care everywhere. Triage - would you please call her and check on how she is feeling? Will probably order an echo butwait to hear from you. Call placed to patient and left VM messages. Three attempts were made with no answer. RN noticed in chart that patient is admitted at [place]. [facility] to team with new information. Note to triage to Follow up next week once patient is discharged. Separate message received from scheduling that we have the wrong number for Martha. New number is now in the chart. documented in this encounter Plan of Treatment Upcoming Encounters Date Type Department Care Team (Late st Contact Info) Description 08/07/2024 9:00 AM EST Appointment Hematology [place] [address] 08/07/2024 10:00 AM EST Office Visit Hematology and Oncology at [place] [phone] Rosalba Patel MD [facility] [place] [address] 08/07/2024 12:00 PM EST Appointment Hematology [place] [address] 08/21/2024 8:30 AM EST Appointment Hematology [place] [address] 08/21/2024 10:00 AM EST Office Visit [place]ematology [place] [address] Rosalba Patel MD [facility] [place] [address] 08/21/2024 11:30 AM EST Appointment Hematology [place] [address] documented as of this encounter Visit Diagnoses Not on filedocumented in this encounter Care Teams Drop Wire Stringer Relationship Specialty Start Date End Date Nat Nicolas, GREENHOUSE TRANSPLANTER [address] [place] [address] PCP - General Family Medicine 04/02/24 documented as of this encounter
--- OUTSIDE RECORDS SUMMARY | 2024-07-17 10:04 | XMS_ITS | Encounter Summary ---
[place] [address] Care Team Providers Care Dividend Deposit Voucher Clerk Name Role Phone Nat Nicolas APRN Primary Care Provider Encounter Details Date Type Department Care Team (Late st Contact Info) Description 06/21/2024 Telephone Hematology [place] [address] Lita Guzman MD 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 She follows with Dr. Rosalba Patel MD and Yamileth Nur APRN in the outpatient setting. She is on neoadjuvant ddAC-T (last infusion on 06/18/24). Oncology was paged by OSH provider as the patient presented to the OSH ED due to a pressure sensation under the ribs that has been present since the day prior to presentation. She does not have any known cardiac history. CTA chest was performed to assess for PE and was completely unremarkable even for infectious etiologies. EKG is significant for sinus tachycardia. At her last office visit, pulse was noted to be 110. Bloodwork reveals WBC 41.78K with neutrophilic predominance significant for reactive neutrophilia as infectious etiologies are ruled out and patient is afebrile. Patient has responded to morphine and is anticipated to be discharged on Tylenol and Ibuprofen. Hernext follow-up with Dr. Jorge MD is on 07/02/24. Currently, do not have any additional recommendations at this time. Will reach out to primary oncologist to assess for need of sooner appointment. Thank you for involving me in the care of the patient. Please call with any questions or concerns. CC-Dr. Rosalba Patel MD and GENE Pandey MD [facility] Hematology/Oncology Fellow [facility] Pager#[phone] documented in this encounter Plan of Treatment Upcoming Encounters Date Type Department Care Team (Late st Contact Info) Description 08/07/2024 9:00 AM EST Appointment Hematology [place] [address] 08/07/2024 10:00 AM EST Office Visit Hematology [place] [address] Rosalba Patel MD [facility] [place] [address] 08/07/2024 12:00 PM EST Appointment Hematology [place] [address] 08/21/2024 8:30 AM EST Appointment Hematology [place] [address] 08/21/2024 10:00 AM EST Office Visit Hematology [place] [address] Rosalba Patel MD [facility] [place] [address] 08/21/2024 11:30 AM EST Appointment Hematology [place] [address] documented as of this encounter Visit Diagnoses Not on filedocumented in this encounter Care Teams Dividend Deposit Voucher Clerk Relationship Specialty Start Date End Date Nat Nicolas, [employer] [address] [place] [address] PCP - General Family Medicine 04/02/24 documented as of this encounter
--- OUTSIDE RECORDS SUMMARY | 2024-07-17 10:04 | XMS_ITS | Encounter Summary ---
Author Organization [facility] [place] [address] Care Team Providers Care Drapery Operator Name Role Phone Nat Nicolas APRN Primary Care Provider Reason for Visit * Reason Comments Follow-up Encounter Details Date Type Department Care Team (Late st Contact Info) Description 06/04/2024 11:00 AM EST Office Visit Hematology [place] [address] Rosalba Patel MD [facility] [place] [address] Malignant neoplasm of lower-outer quadrant of left [...] from the original note were not included. [facility] Patient Name: Martha Rodriguez is a 59 y.o. female from [place], [place] (1 hour 10 min away). : 1965 Visit Date: 06/03/2024 PCP: Nat Nicolas APRN Breast surgical oncology: Lashay Amaral MD Radiation oncology: Referral pending Reason for visit: Scheduled f/up for ddAC-T Summary: Martha Rodriguez is a 59 y.o. female with clinical Stage IIA ([id number]) multifocal invasive lobular carcinoma of the left breast, ER + / MN + / HER2 -, diagnosed on 03/06/2024. She presents today for neoadjuvant ddAC-T. DIAGNOSIS: Breast cancer pathology & staging: Clinical stage: [id number] Stage IIA Pathological stage: pending surgery Pathology: Invasive lobular carcinoma, grade 2, LVI-. Surgical pathology pending. Lauryn status: 4 abnormal axillary nodes, level I and II, seen on MRI - axillary u/s and biopsy 05/08/2024 positive for metastatic carcinoma Receptor status: ER positive (>90%, strong) MN positive (>70% strong) HER2 negative by FISH, [...] grade 2, LVI- ER positive (>90%, strong) MN positive (>70% strong) HER2 negative by FISH, [...] invasive lobular carcinoma of the LEFT breast, ER+MN+Her2-, who presents today in scheduled follow-up for neoadjuvant ddAC-T. # Left breast cancer, ILC, ER positive, MN positive, HER2 negative - Risk scoring: Predict [...] Follow-up: RTC in 2 weeks for labs, MD/CEMENT TRUCK DRIVER visit and C4D1 neoadj ddAC-T Interval History: [...] > 50% spend in discussion of above, [id number] time and coordination of care with the patient today Rylie Patel MD Medical Oncology [facility] Powder CompounderPackaging Engineer, [facility] Office Cancer.[facility] documented in this encounter Plan of Treatment Upcoming Encounters Date Type Department Care Team (Late st Contact Info) Description 08/07/2024 9:00 AM EST Appointment Hematology [place] [address] 08/07/2024 10:00 AM EST Office Visit Hematology [place] [address] Rosalba Patel MD [facility] [place] [address] 08/07/2024 12:00 PM EST Appointment Hematology [place] [address] 08/21/2024 8:30 AM EST Appointment Hematology [place] [address] 08/21/2024 10:00 AM EST Office Visit Hematology [place] [address] Rosalba Ptael MD [facility] [place] [address] 08/21/2024 11:30 AM EST Appointment Hematology [place] [address] documented as of this encounter Visit Diagnoses Diagnosis Malignant neoplasm of lower-outer quadrant of left breast of female, estrogen receptor positive documented in this encounter Care Teams Drapery Operator Relationship Specialty Start Date End Date Nat Nicolas APRN [address] [place] [address] PCP - General Family Medicine 04/02/24 documented as of this encounter
--- OUTSIDE RECORDS SUMMARY | 2024-07-17 10:04 | XMS_ITS | Encounter Summary ---
[place] [address] Care Team Providers Care Devops Name Role Phone Nat Nicolas APRN Primary Care Provider Reason for Visit * Treatment/Therapy Plan Authorization (Routine) - Authorized Specialty Diagnoses / Procedures Referred By Contac t Referred To Contact Hematology and Oncology Diagnoses Malignant neoplasm of lower-outer quadrant of left breast of female, estrogen receptor positive Type 2 diabetes mellitus without complication, without long-term current use of insulin Rosalba Patel MD [facility] [place] [address] [address] Referral ID Status Reason Start Date Expiration Date V isits Requested Visits Authorized [id number] Authorized 04/29/2024 04/29/2025 99 107 Encounter Details Date Type Department Care Team (Late st Contact Info) Description 06/18/2024 3:30 PM EST Office Visit Hematology [place] [address] Lázaro Munoz, [facility] Malignant neoplasm of lower-outer quadrant [...] this encounter Progress Notes * Lázaro Munoz, [facility] - 06/18/2024 3:30 PM EST Oncology Clinical [...] IV once every 14 days cycles 5-8 Flora Antiemetic Regimen Aloxi (palonosetron) 0.25 mg IV [...] AM EST Appointment Hematology [place] [address] 08/07/2024 10:00 AM EST Office Visit Hematology [place] [address] Rosalba Patel MD [facility] [place] [address] 08/07/2024 12:00 PM EST Appointment Hematology [place] [address] 08/21/2024 8:30 AM EST Appointment Hematology [place] [address] 08/21/2024 10:00 AM EST Office Visit Hematology [place] [address] Rosalba Patel MD [facility] [place] [address] 08/21/2024 11:30 AM EST Appointment Hematology and Oncology at [facility] [place] [address] documented as of this encounter Visit Diagnoses [...] mg documented in this encounter Care Teams Devops Relationship Specialty Start Date End Date Nat Nicolas APRN [address] [place] [address] PCP - General Family Medicine 04/02/24 documented as of this encounter
--- OUTSIDE RECORDS SUMMARY | 2024-07-17 10:04 | XMS_ITS | Encounter Summary ---
Author Organization [facility] Address [facility] [place] [address] Care Team Providers Care Well Driller Name Role Phone NicolasZacNatcarlos Malloy APRN Primary Care Provider Encounter Details Date Type Department Care Team (Late st Contact Info) Description 06/21/2024 4:40 PM EST Ancillary Procedure Radiology Library at [facility] [place] [address] Tani Robertson MD [facility] [place] [address] Social History Tobacco Use Types Packs/Day Years [...] AM EST Appointment Hematology [place] [address] 08/07/2024 10:00 AM EST Office Visit [place]ematology [place] [address] Rosalba Patel MD [facility] [place] [address] 08/07/2024 12:00 PM EST Appointment Hematology [place] [address] 08/21/2024 8:30 AM EST Appointment Hematology [place] [address] 08/21/2024 10:00 AM EST Office Visit [place]ematology [place] [address] Rosalba Patel MD [facility] [place] [address] 08/21/2024 11:30 AM EST Appointment [place]ematology [place] [address] documented as of this encounter Procedures Procedure Name Priority Date/Time Associated Diagnosis Comments FILM LIBRARY STORAGE ONLY CT CHEST Routine 06/21/2024 4:38 PM EST documented in this encounter Results * Film Library- Storage Only CT Chest (06/21/2024 4:38 PM EST) Narrative [facility][NOTE 3] - 06/21/2024 4:38 PM EST This exam is auto-finalizing. It's purpose is for storage only. Tani Robertson MD IMG FILM LIBRARY ORD ERABLES [place], [place] documented in this encounter Visit Diagnoses Not on filedocumented in this encounter Care Teams Well Driller Relationship Specialty Start Date End Date Nat Nicolas, PIPE SMOKING MACHINE OFFBEARER [address] [place] [address] PCP - General Family Medicine 04/02/24 documented as of this encounter
--- OUTSIDE RECORDS SUMMARY | 2024-07-17 10:04 | XMS_ITS | Encounter Summary ---
[place] [address] Care Team Providers Care Wigs Salesperson Name Role Phone Nat Nicolas APRN Primary Care Provider Reason for Visit * Treatment/Therapy Plan Authorization (Routine) - Authorized Specialty Diagnoses / Procedures Referred By Contgiuliana t Referred To Contact Hematology and Oncology Diagnoses Malignant neoplasm of lower-outer quadrant of left breast of female, estrogen receptor positive Type 2 diabetes mellitus without complication, without long-term current use of insulin Rosalba Patel MD [facility] [place] [address] [address] Referral ID Status Reason Start Date Expiration Date V isits Requested Visits Authorized [id number] Authorized 04/29/2024 04/29/2025 99 107 Encounter Details Date Type Department Care Team (Latest Contact Info) Description 07/10/2024 7:56 AM EST - 07/10/2024 11:59 PM EST Hospital Encounter Hematology [place] [address] Malignant neoplasm of lower-outer quadrant [...] Progress Notes * Brea Ramos RN - 07/10/2024 8:12 AM EST Patient Name: Martha Rodriguez Patient Age: 59 y.o. Birthdate: 1965 Admit date: 07/10/2024 Attending Physician: No att. providers found Access visit. See MAR and/or flowsheet. documented in this encounter Plan of Treatment Upcoming Encounters Date Type Department Care Team (Late st Contact Info) Description 08/07/2024 9:00 AM EST Appointment Hematology [place] [address] 08/07/2024 10:00 AM EST Office Visit Hematology [place] [address] Rosalba Patel MD [facility] [place] [address] 08/07/2024 12:00 PM EST Appointment Hematology [place] [address] 08/21/2024 8:30 AM EST Appointment Hematology [place] [address] 08/21/2024 10:00 AM EST Office Visit Hematology [place] [address] Rosalba Patel MD [facility] [place] [address] 08/21/2024 11:30 AM EST Appointment Hematology and Oncology at [facility] [place] [address] documented as of this encounter Procedures Procedure Name Priority Date/Time Associated Diagnosis Comments CANCER ANTIGEN 15-3 STAT 07/10/2024 8 :11 AM EST Malignant neoplasm of lower-outer quadrant of left breast of female, estrogen receptor positive Type 2 diabetes mellitus without complication, without long-term current use of insulin CBC (WITH DIFF) STAT 07/10/2024 8:11 AM EST Malignant neoplasm of lower-outer quadrant of left breast of female, estrogen receptor positive Type 2 diabetes mellitus without complication, without long-term current use of insulin COMPREHENSIVE METABOLIC PANEL STAT 07/10/2024 8:11 AM EST Malignant neoplasm of lower-outer quadrant of left breast of female, estrogen receptor positive Type 2 diabetes mellitus without complication, without long-term current use of insulin documented in this encounter Results * (ABNORMAL) CBC (with Diff) (07/10/2024 8:11 AM EST) White Blood Cell 8.46 4.00 - 9.50 x10(3)/mc L 07/10/2024 8:35 AM EST [facility] Red Blood Cell 3.78(L) 4.00 - 5.21 x10(6)/mc L 07/10/2024 8:35 AM EST [facility] Hemoglobin 12.0 11.7 - 15.5 g/dL 07/10/2024 8:35 AM [facility] Hematocrit 35.6(L) 35.7 - 45.8 % 07/10/2024 8:35 AM [facility] Mean Cell Volume 94.2 82.6 - 94.4 fL 07/10/2024 8:35 AM [facility] Mean Cell Hemoglobin 31.7 27.1 - 32.0 pg 07/10/2024 8:35 AM [facility] Mean Cell Hemoglobin Concentration 33.7 31.7 - 35.0 g/dL 07/10/2024 8:35 AM [facility] Platelet 411(H) 145 - 357 x10(3)/mc L 07/10/2024 8:35 AM [facility] Mean Platelet Volume 10.6 7.6 - 12.9 fL 07/10/2024 8:35 AM [facility] RDW Standard Deviation 54.1(H) 37.0 - 46.0 fL 07/10/2024 8:35 AM [facility] RDW coefficient of variation 15.9(H) 11.5 - 14.1 % 07/10/2024 8:35 AM [facility] NRBC% auto 0.0 % 07/10/2024 8:35 AM [facility] NRBC Absolute <0.01 <0.01 x10(3)/mc L 07/10/2024 8:35 AM [facility] Neutrophil % 72.0 % 07/10/2024 8:35 AM [facility] Neutrophil Absolute (ANC) - Automated 6.10 1.70 - 6.10 x10(3)/mc L 07/10/2024 8:35 AM [facility] Lymph % 15.0 % 07/10/2024 8:35 AM [facility] Lymph Absolute 1.27 0.90 - 3.20 x10(3)/mc L 07/10/2024 8:35 AM [facility] Monocyte % 8.9 % 07/10/2024 8:35 AM [facility] Monocyte Absolute 0.75 0.30 - 0.90 x10(3)/mc L 07/10/2024 8:35 AM [facility] Eos % 2.6 % 07/10/2024 8:35 AM [facility] Eos Absolute 0.22 0.00 - 0.40 x10(3)/mc L 07/10/2024 8:35 AM EST [facility] Basophil % 1.1 % 07/10/2024 8:35 AM [facility] Baso Absolute 0.09 0.00 - 0.10 x10(3)/mc L 07/10/2024 8:35 AM [facility] Immature Gran % 0.4 % 8:35 AM [facility] Immature Gran Absolute <0.04 0.00 - 0.04 x10(3)/mc L 07/10/2024 8:35 AM [facility] Blood VENOUS BLOOD SPECIMEN / Unknown Venipuncture / Unknown 07/10/2024 8:11 AM EST 07/10/2024 8:27 AM EST Rosalba Patel MD HEMATOLOGY ORDERABLE S Performing Organization Address City/State/[facility] Co de Phone Number [facility] [address] * (ABNORMAL) Comprehensive metabolic panel Non-fasting (07/10/2024 8:11 AM EST) Glucose 194 65 - 199 mg/dL 07/10/2024 9:04 AM [facility] Comment:Glucose Concentratio n >=200 mg/dL plus symptoms is consistent with Diabetes Mellitus. Blood Urea Nitrogen 21(H) 8 - 18 mg/dL 07/10/2024 9:04 AM [facility] Creatinine 0.59(L) 0.70 - 1.20 mg/dL 07/10/2024 9:04 AM [facility] Sodium 143 135 - 145 mMol/L 07/10/2024 9:04 AM [facility] Potassium 4.0 3.5 - 5.0 mMol/L 07/10/2024 9:04 AM [facility] Chloride 107 98 - 107 mMol/L 07/10/2024 9:04 AM [facility] Carbon Dioxide 22 22 - 31 mMol/L 07/10/2024 9:04 AM [facility] Anion Gap 14 5 - 15 mMol/L 07/10/2024 9:04 AM [facility] Calcium 9.2 8.5 - 10.5 mg/dL 07/10/2024 9:04 AM [facility] Protein, Total 6.5 6.1 - 8.0 g/dL 07/10/2024 9:04 AM [facility] Albumin 4.2 3.2 - 5.2 g/dL 07/10/2024 9:04 AM [facility] Aspartate Aminotransferase 12 <=30 unit/L 07/10/2024 9:04 AM [facility] Alanine Aminotransferase 14 0 - 30 unit/L 07/10/2024 9:04 AM [facility] Alkaline Phosphatase 105 35 - 105 unit/L 07/10/2024 9:04 AM [facility] Bilirubin, Total 0.2 <=1.3 mg/dL 07/10/2024 9:04 AM [facility] Est Glomerular Filtration Rate - Female 103 mL/min/1. 73 m?? 07/10/2024 9:04 AM [facility] [...] Foundation Fasting Status No 07/10/2024 9:04 AM [facility] Blood VENOUS BLOOD SPECIMEN / Unknown Venipuncture / Unknown 07/10/2024 8:11 AM EST 07/10/2024 8:27 AM EST Rosalba Patel MD CHEMISTRY ORDERABLES Performing Organization Address City/[facility]/ZIP Co de Phone Number [facility] [place] [address] * (ABNORMAL) Cancer antigen 15-3 (07/10/2024 8:11 AM EST) CA 15-3 26(H) <=25 unit/mL 07/10/2024 10:16 AM EST [facility] Comment:This result was gene rated using a Tani Elías immunoassay. Results obtained from other methods or manufacturers cannot be used interchangeably with this method. Blood VENOUS BLOOD SPECIMEN / Unknown Venipuncture / Unknown 07/10/2024 8:11 AM EST 07/10/2024 8:27 AM EST Rosalba Patel MD CHEMISTRY ORDERABLES Performing Organization Address City/[facility] Co de Phone Number [facility] [place] [address] documented in this encounter Visit Diagnoses Diagnosis [...] EVERY 1 MIN PRN, Starting on Millie 07/10/24 at 0758, Until Sun07/11/24 at 0433, Line Care, Flush pertains to all indwelling lines. Flush per protocol found in the job aid using the link provided on this medication record. Refer to Intravenous (IV) Job Aid: Adult Flushing & Catheter Care (0832) job aid for additional information regarding guidelines and administration., Routine Given 07/10/2024 8:12 AM EST 20 mLs documented in this encounter Care Teams Wigs Salesperson Relationship Specialty Start Date End Date Nat Nicolas APRN [address] [place] [address] PCP - General Family Medicine 04/02/24 documented as of this encounter
--- OUTSIDE RECORDS SUMMARY | 2024-07-17 10:04 | XMS_ITS | Encounter Summary ---
Author Organization [facility] [place] [address] Care Team Providers Care Project Management Engineer Name Role Phone Nat Nicolas APRN Primary Care Provider Encounter Details Date Type Department Care Team (Late st Contact Info) Description 05/26/2024 [place] [address] Nat Hess MSW Social History Tobacco Use [...] for hair/appearance. I provide promo codes to [employer] site [employer] in case Martha would like to select a wig for $100 for free; I also provide information on Kavita Urias, including accepted insurance list and contact information. I encourage Martha to reach out to me with any questions about the provided resources or other questions. Completed today: Community Resource Wig/hair loss resources Nat ???Fide?? [place] Hess Social Work, Breast and Gynecology Oncology [email or web address] documented in this encounter Plan of Treatment Upcoming Encounters Date Type Department Care Team (Late st Contact Info) Description 08/07/2024 9:00 AM EST Appointment Hematology and Oncology at [place] [phone] 08/07/2024 10:00 AM EST Office Visit Hematology and Oncology at [place] [phone] Rsoalba Patel MD [facility] [place] [address] 08/07/2024 12:00 PM EST Appointment Hematology [place] [address] 08/21/2024 8:30 AM EST Appointment Hematology [place] [address] 08/21/2024 10:00 AM EST Office Visit Hematology [place] [address] Rosalba Patel MD [facility] [place] [address] 08/21/2024 11:30 AM EST Appointment Hematology [place] [address] documented as of this encounter Visit Diagnoses Not on filedocumented in this encounter Care Teams Project Management Engineer Relationship Specialty Start Date End Date Nat Nicolas, WOOD STRIP BLOCK FLOOR INSTALLER [address] [place] [address] PCP - General Family Medicine 04/02/24 documented as of this encounter
--- OUTSIDE RECORDS SUMMARY | 2024-07-17 10:04 | XMS_ITS | Encounter Summary ---
[place] [address] Care Team Providers Care Channel Sales Director Name Role Phone Nat Nicolas APRN Primary Care Provider Encounter Details Date Type Department Care Team (Latest Contact Info) Description 06/04/2024 8:58 AM EST - 06/04/2024 11:59 PM [facility] Hospital Encounter Hematology [place] [phone] Malignant neoplasm of lower-outer quadrant of left [...] AM EST Appointment Hematology [place] [address] 08/07/2024 10:00 AM EST Office Visit Hematology [place] [address] Rosalba Patel MD [facility] [place] [address] 08/07/2024 12:00 PM EST Appointment Hematology [place] [address] 08/21/2024 8:30 AM EST Appointment Hematology [place] [address] 08/21/2024 10:00 AM EST Office Visit Hematology [place] [address] Rosalba Patel MD [facility] [place] [address] 08/21/2024 11:30 AM EST Appointment Hematology [place] [address] documented as of this encounter Visit Diagnoses Diagnosis Malignant neoplasm of lower-outer quadrant of left breast of female, estrogen receptor positive Type 2 diabetes mellitus without complication, without long-term current use of insulin documented in this encounter Care Teams Channel Sales Director Relationship Specialty Start Date End Date Nat Nicolas APRN [address] [place] [address] PCP - General Family Medicine 04/02/24 documented as of this encounter
--- OUTSIDE RECORDS SUMMARY | 2024-07-17 10:04 | XMS_ITS | Encounter Summary ---
Author [place] [address] Care Team Providers Care Compliance Testing Analyst Name Role Phone Nat Nicolas APRN Primary Care Provider Encounter Details Date Type Department Care Team (Late st Contact Info) Description 06/27/2024 Telephone Hematology [place] [phone] Lakesha Johnson RN Social History Tobacco Use [...] encounter Miscellaneous Notes * Telephone Encounter - Arina Estevez - 06/27/2024 3:36 PM EST Received call from pt's stating pt is in the hospital at [facility] and that she's had a stroke. I forwarded the call to the nurse line. * Telephone Encounter - Lakesha Johnson RN - 06/27/2024 2:04 PM ESTSummary: ED Admission Pt called to let us know she is currently admitted for mini stroke at [facility] in [place]. No deficits. L leg is a little weaker but she is working with PT and is set to be discharged tomorrow. Pt stated that she will be at her follow up appt next Sunday. Notifying provider. documented in this encounter Plan of Treatment Upcoming Encounters Date Type Department Care Team (Late st Contact Info) Description 08/07/2024 9:00 AM EST Appointment H[place]ology [place] [address] 08/07/2024 10:00 AM EST Office Visit Hematology and Oncology at [place] [phone] Rosalba Patel MD [facility] [place] [address] 08/07/2024 12:00 PM EST Appointment H[place]ology [place] [address] 08/21/2024 8:30 AM EST Appointment [place]ology [place] [address] 08/21/2024 10:00 AM EST Office Visit [place]ology [place] [address] Rosalba Patel MD [facility] [place] [address] 08/21/2024 11:30 AM EST Appointment H[place]ology [place] [address] documented as of this encounter Visit Diagnoses Not on filedocumented in this encounter Care Teams Compliance Testing Analyst Relationship Specialty Start Date End Date Nat Nicolas APRN [address] [place] [address] PCP - General Family Medicine 04/02/24 documented as of this encounter
--- OUTSIDE RECORDS SUMMARY | 2024-07-17 10:04 | XMS_ITS | Clinical Summary ---
Author Organization [facility] Address [facility] [place] [address] Care Team Providers Care Orchid Hand Name Role Phone Nat Nicolas APRN Primary [...] for Nausea. 30 tablet 3 05/08/2024 Active OLANZapine (ZyPREXA) 5 mg tablet Take 1 tablet by mouth nightly. On nights 1-4 of chemotherapy. 16 tablet 1 05/08/2024 Active glipiZIDE (Glucotrol) 5 mg tablet 05/29/2024 Active ondansetron (Zofran) 8 mg tablet Take 1 tablet by mouth every 8 hours as needed for Nausea. 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, estrogen receptor positive 04/07/2024 Overview (04/07/2024): 04/02/24 bx [facility]: ER+/MO+/HER2 pending left breast ILC, intermediate grade 04/02/24 left breast U/S bx [facility]: 2.4 cm, 3:00, 4 FN HTN (hypertension) 02/14/2013 Migraine headache 02/14/2013 Encounters Date Type Department Care Team Description 07/14/2024 Telephone Hematology [place] [address] Caroline Bell RN Headache 07/13/2024 Transcribe Orders eD Incoming Referrals [phone] Nat Nicolas, ELECTROMECHANICAL EQUIPMENT TESTER 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 (Primary Dx) 07/10/2024 9:00 AM EST Office Visit Hematology [place] [address] Rosalba Patel MD Acute stroke due to ischemia; Malignant neoplasm of lower-outer quadrant of left breast of female, estrogen receptor positive; Typical atrial flutter 07/10/2024 7:56 AM EST - 07/10/2024 11:59 PM EST Hospital Encounter Hematology [place] [address] Malignant neoplasm of lower-outer quadrant of left breast of female, estrogen receptor positive; Type 2 diabetes mellitus without complication, without long-term current use of insulin Discharge Disposition: Home 07/10/2024 7:56 AM EST - 07/10/2024 11:59 PM EST Hospital Encounter Hematology [place] [address] Malignant neoplasm of lower-outer quadrant of left breast of female, estrogen receptor positive; Type 2 diabetes mellitus without complication, without long-term current use of insulin Discharge Disposition: Home 07/10/2024 Telephone Cardiology at [address] [address] Deja Blandon, wheelchair van operator first responder 07/10/2024 Travel 07/01/2024 [place] [address] Nat Hess, HAND KNITTER 07/01/2024 Telephone Hematology [place] [address] Juani Sosa, RN Medical Care Coordination 06/30/2024 Telephone Hematology [place] [address] Lakesha Johnson, RN 06/28/2024 Telephone Hematology Oncology Level [address] [place] [address] Jeffery Polanco MD 06/27/2024 Telephone Hematology [place] [address] Lakesha Johnson, RN 06/25/2024 6:25 PM EST Telehealth [place] [address] Telehealth, Neurology 06/24/2024 Telephone Hematology and Oncology at [place] [phone] Juani Sosa RN Tachycardia (Follow up) 06/21/2024 4:40 PM EST Ancillary Procedure Radiology Library at [facility] [address] Tani Robertson MD 06/21/2024 Telephone Hematology and Oncology at [place] [phone] Lita Guzman MD 06/18/2024 3:30 PM EST Office Visit Hematology and Oncology at [place] [phone] Lázaro Munoz, [facility] Malignant neoplasm of lower-outer quadrant of left breast of female, estrogen receptor positive 06/18/2024 1:30 PM EST Office Visit Hematology and Oncology at [place] [phone] Dallin Falcon, ELECTROMECHANICAL EQUIPMENT TESTER Malignant neoplasm of lower-outer quadrant of left breast of female, estrogen receptor positive; Type 2 diabetes mellitus without complication, without long-term current use of insulin; Examination prior to chemotherapy 06/18/2024 1:03 PM EST - 06/18/2024 11:59 PM EST Hospital Encounter Hematology and Oncology at [place] [phone] Malignant neoplasm of lower-outer quadrant of left breast of female, estrogen receptor positive; Type 2 diabetes mellitus without complication, without long-term current use of insulin Discharge Disposition: Home 06/18/2024 12:30 PM EST - 06/18/2024 1:02 PM EST Hospital Encounter Hematology and Oncology at [place] [phone] Malignant neoplasm of lower-outer quadrant of left breast of female, estrogen receptor positive; Type 2 diabetes mellitus without complication, without long-term current use of insulin Discharge Disposition: Home 06/18/2024 Travel 06/11/2024 2:00 PM EST TH Visit (TeleHealth) [place]ology [place] [address] Breezy Long, [facility] Malignant neoplasm of lower-outer quadrant of left breast of female, estrogen receptor positive 06/09/2024 Telephone Hematology and Oncology at [place] [phone] Lázaro Fong V, [facility] Results 06/04/2024 11:00 AM EST Office Visit Hematology and Oncology at [place] [phone] Rosalba Patel MD Malignant neoplasm of lower-outer quadrant of left breast of female, estrogen receptor positive 06/04/2024 8:58 AM EST - 06/04/2024 11:59 PM EST Hospital Encounter Hematology and Oncology at [place] [phone] Malignant neoplasm of lower-outer quadrant of left breast of female, estrogen receptor positive; Type 2 diabetes mellitus without complication, without long-term current use of insulin Discharge Disposition: Home 06/04/2024 8:55 AM EST - 06/04/2024 8:57 AM EST Hospital Encounter Hematology and Oncology at [place] [phone] Malignant neoplasm of lower-outer quadrant of left breast of female, estrogen receptor positive; Type 2 diabetes mellitus without complication, without long-term current use of insulin Discharge Disposition: Home 06/04/2024 Travel 05/26/2024 8:30 AM EST TH Visit (TeleHealth) Hematology and Oncology at [place] [phone] Andrés Donahue, [facility] Malignant neoplasm of lower-outer quadrant of left breast of female, estrogen receptor positive 05/26/2024 Notes Only Care Management [place] [phone] Nat Hess MSW 05/22/2024 10:00 AM EDT Office Visit Hematology and Oncology at [place] [phone] Sacks, Dallin L, ELECTROMECHANICAL EQUIPMENT TESTER Malignant neoplasm of lower-outer quadrant of left breast of female, estrogen receptor positive; H/O insulin dependent diabetes mellitus; Examination prior to chemotherapy 05/22/2024 8:32 AM EDT - 05/22/2024 11:59 PM EDT Hospital Encounter Hematology and Oncology at [place] [phone] Malignant neoplasm of lower-outer quadrant of left breast of female, estrogen receptor positive Discharge Disposition: Home 05/22/2024 8:31 AM EDT Hospital Encounter [place]ology [place] [address] Malignant neoplasm of lower-outer quadrant of left breast of female, estrogen receptor positive Discharge Disposition: Home 05/22/2024 [place] [address] Nat Hess, HAND KNITTER 05/22/2024 Travel 05/20/2024 [place] [address] Nat Hess, HAND KNITTER 05/19/2024 1:00 PM EDT Office Visit Hematology [place] [address] Lázaro Fong V, [facility] Malignant neoplasm of lower-outer quadrant of left breast of female, estrogen receptor positive; Family history of ovarian cancer; Family history of BRCA1 gene positive 05/19/2024 Travel 05/16/2024 [place] [address] Nat Hess, HAND KNITTER 05/15/2024 Orders Only Hematology [place] [address] Kiana Dickerson, LGC Malignant neoplasm of lower-outer quadrant of left breast of female, estrogen receptor positive 05/13/2024 10:30 AM EDT TH Visit (TeleHealth) [place]ology [place] [address] Tamela Coats, [facility] Malignant neoplasm of lower-outer quadrant of left breast of female, estrogen receptor positive 05/12/2024 Telephone Mammography at [place] [phone] Didi Loredo, RN 05/12/2024 Telephone Hematology and Oncology at [place] [phone] Caroline Bell RN 05/08/2024 1:00 PM EDT Clinical Support Hematology and Oncology at [place] [phone] Lázaro Munoz, [facility] Malignant neoplasm of lower-outer quadrant of left breast of female, estrogen receptor positive 05/08/2024 11:30 AM EDT Office Visit Hematology and Oncology at [place] [phone] Rosalba Patel MD Malignant neoplasm of lower-outer quadrant of left breast of female, estrogen receptor positive 05/08/2024 9:42 AM EDT - 05/08/2024 11:59 PM EDT Hospital Encounter Hematology and Oncology at [place] [phone] Malignant neoplasm of lower-outer quadrant of left breast of female, estrogen receptor positive Discharge Disposition: Home 05/08/2024 9:42 AM EDT - 05/08/2024 11:59 PM EDT Hospital Encounter Hematology and Oncology at [place] [phone] Malignant neoplasm of lower-outer quadrant of left breast of female, estrogen receptor positive Discharge Disposition: Home 05/08/2024 6:57 AM EDT - 05/08/2024 9:41 AM EDT Hospital Encounter Mammography at [place] [phone] Daily Amaral MD Malignant neoplasm of left breast in female, estrogen receptor positive, unspecified site of breast Discharge Disposition: Home 05/08/2024 6:56 AM EDT Hospital [place] [address] Dorota Anderson MD Abnormal finding on breast imaging Discharge Disposition: Home 05/08/2024 6:55 AM EDT Hospital [place] [address] Dorota Anderson MD Abnormal finding on breast imaging Discharge Disposition: Home 05/08/2024 Travel 05/07/2024 Telephone Hematology and Oncology at [place] [phone] Caroline Bell RN 05/06/2024 Telephone [place] [address] Chasidy Wright 05/06/2024 Telephone [place]ology [place] [address] Juani Sosa RN Error 05/05/2024 12:33 PM EDT - 05/05/2024 11:59 PM EDT Hospital [place] [address] Dallin Falcon APRN Malignant neoplasm of lower-outer quadrant of left breast of female, estrogen receptor positive Discharge Disposition: Home 05/05/2024 10:45 AM EDT - 05/05/2024 12:32 PM EDT Hospital Encounter [place] [address] Dallin Falcon ELECTROMECHANICAL EQUIPMENT TESTER Malignant neoplasm of lower-outer quadrant of left breast of female, estrogen receptor positive Discharge Disposition: Home 05/05/2024 Travel 04/30/2024 2:00 PM EDT Office Visit [place]ology [place] [phone] Rosalba Patel MD Malignant neoplasm of lower-outer quadrant of left breast of female, estrogen receptor positive 04/30/2024 [place] [address] Harriett Ramirez PA 04/29/2024 10:02 AM EDT - 04/29/2024 11:59 PM EDT Hospital Encounter [place] [address] Daily Amaral MD Discharge Disposition: Home 04/29/2024 7:20 AM EDT - 04/29/2024 10:01 AM EDT Hospital Encounter Nuclear Medicine at [place] [phone] Daily Amaral MD Malignant neoplasm of left breast in female, estrogen receptor positive, unspecified site of breast Discharge Disposition: Home 04/29/2024 Telephone Hematology and Oncology at [place] [phone] TherIris schumacher Disability Paperwork 04/29/2024 Travel 04/29/2024 Orders Only Hematology and Oncology at [place] [phone] Rosalba Patel MD 04/25/2024 11:26 AM EDT - 04/25/2024 11:59 PM EDT Hospital Encounter CT Scan at [place] [phone] Daily Amaral MD Malignant neoplasm of left breast in female, estrogen receptor positive, unspecified site of breast Discharge Disposition: Home 04/25/2024 10:35 AM EDT Laboratory Appointment Lab [address] [place] [address] Malignant neoplasm of left breast in female, estrogen receptor positive, unspecified site of breast 04/25/2024 Travel 04/24/2024 Notes Only [place] [address] Juani Sosa, RN Letter Request From Patient from Last 3 Months Immunizations Name Administration [...] Mass Index 30.45 07/10/2024 8:17 AM EST Plan of Treatment Upcoming Encounters Date Type Department Care Team (Late st Contact Info) Description 08/07/2024 9:00 AM EST Appointment H[place]ology [place] [address] 08/07/2024 10:00 AM EST Office Visit [place]ematology [place] [phone] Rosalba Patel MD [facility] [place] [address] 08/07/2024 12:00 PM EST Appointment H[place]ology [place] [address] 08/21/2024 8:30 AM EST Appointment H[place]ology [place] [address] 08/21/2024 10:00 AM EST Office Visit [place]ematology [place] [address] Rosalba Patel MD [facility] [place] [place] [address] 08/21/2024 11:30 AM EST Appointment [place]ology [place] [address] Health Maintenance Due Date Last Done Comments CT Colonography 1964 Colonoscopy 1964 Colorectal Cancer Screening 1964 FIT DNA 1964 FIT 1964 Sigmoidoscopy (10 year) with FIT yearly 1964 Sigmoidoscopy 1964 DM Opthalmology Exam 02/04/1974 HIV screen 02/04/1982 Hepatitis C Screening 02/04/1982 Pneumococcal Vaccine: At-Ris k 5-64yrs (1 of 2 - PCV) 02/04/1983 HPV test 02/04/1994 PAP Smear 02/04/1994 [...] standard series) 03/23/2024 04/18/2012 DM Creatinine yearly 07/10/2025 07/10/2024, 06/18/2024, 06/04/2024, Additional history exists Diabetes Screening (HgbA1C o r Glucose) Discontinued 07/10/2024, 06/18/2024, 06/04/2024, Additional history exists Medical Devices Implanted Type Area Jewel Stripper Device Identifier Shelf Expiration Date Model / Serial / Lot Breast Clip- 4 Implanted:Qty : 1 on 04/02/2024 by Dorota Anderson MD Breast Clip Left: Breast BARD - ELY [employer] ULTRACOR MARKER / / [id number] Description:YUDELKA Breast Clip-05/08/20 Implanted:Qty : 1 on 05/08/2024 by Olive Garcia MD Breast Clip Left: Axilla Bard - 0614 ULTRACOR TWRIL / / [id number] Description:TWRIL Port Infusion 8fr Cath Power Injectable Lp 1lum Ct Ti ([id number])- Implanted:Qty : 1 on 05/05/2024 by Debra Tamayo PA IMPLANTS Right: Chest Wall [employer] - CR BARD [id number] / / [id number] Description:rij vaccess 8fr power Procedures Procedure Name Priority Date/Time Associated Diagnosis Comments POC, GLUCOSE Routine 07/10/2024 11:39 AM EST CBC (WITH DIFF) STAT 07/10/2024 8:11 AM [...] use of insulin CANCER ANTIGEN 15-3 STAT 07/10/2024 8 :11 AM EST Malignant neoplasm of lower-outer quadrant of left breast of female, estrogen receptor positive Type 2 diabetes mellitus without complication, without long-term current use of insulin FILM LIBRARY STORAGE ONLY CT CHEST Routine 06/21/2024 4:38 PM EST CBC (WITH DIFF) STAT 06/18/2024 1:22 PM [...] estrogen receptor positive, unspecified site of breast LIPID PANEL (REFLEX DIRECT LDL) Routine 08/06/2015 HEMOGLOBIN A1C Routine 08/06/2015 U ALBUMIN/CRE RATIO Routine 08/06/2015 from Last 3 Months or Most Recently Relevant to Health Maintenance Results * (ABNORMAL) POC, GLUCOSE (07/10/2024 11:39 AM EST) Only the most recent of3 resultswithin the time period is included. Glucometer, POC 227(H) 65 - 199 mg/dL 07/10/2024 11:40 AM EST [facility] Comment:Supplemental ranges: <140 mg/dL before meals <180 mg/dL all other times of the day. Blood CAPILLARY BLOOD / Unknown 07/10/2024 11:39 AM EST 07/10/2024 11:40 AM EST Unknown POINT OF CARE TEST O RDERABLES [facility] [place] [address] * (ABNORMAL) Cancer antigen 15-3 (07/10/2024 8:11 AM EST) Only the most recent of5 resultswithin the time period is included. CA 15-3 26(H) <=25 unit/mL 07/10/2024 10:16 AM [facility] Comment:This result was gene rated using a Tain Elías immunoassay. Results obtained from other methods or manufacturers cannot be used interchangeably with this method. Blood VENOUS BLOOD SPECIMEN / Unknown Venipuncture / Unknown 07/10/2024 8:11 AM EST 07/10/2024 8:27 AM EST Rosalba Patel MD CHEMISTRY ORDERABLES [facility] [place] [address] * (ABNORMAL) CBC (with Diff) (07/10/2024 8:11 AM EST) Only the most recent of6 resultswithin the time period is included. White Blood Cell 8.46 4.00 - 9.50 x10(3)/mc L 07/10/2024 8:35 AM [facility] Red Blood Cell 3.78(L) 4.00 - 5.21 x10(6)/mc L 07/10/2024 8:35 AM [facility] Hemoglobin 12.0 11.7 - 15.5 g/dL 07/10/2024 8:35 AM [facility] Hematocrit 35.6(L) 35.7 - 45.8 % 07/10/2024 8:35 AM [facility] Mean Cell Volume 94.2 82.6 - 94.4 fL 07/10/2024 8:35 AM [facility] Mean Cell Hemoglobin 31.7 27.1 - 32.0 pg 07/10/2024 8:35 AM [facility] Mean Cell Hemoglobin Concentration 33.7 31.7 - 35.0 g/dL 07/10/2024 8:35 AM [facility] Platelet 411(H) 145 - 357 x10(3)/mc L 07/10/2024 8:35 AM [facility] Mean Platelet Volume 10.6 7.6 - 12.9 fL 07/10/2024 8:35 AM [facility] RDW Standard Deviation 54.1(H) 37.0 - 46.0 fL 07/10/2024 8:35 AM [facility] RDW coefficient of variation 15.9(H) 11.5 - 14.1 % 07/10/2024 8:35 AM [facility] NRBC% auto 0.0 % 07/10/2024 8:35 AM [facility] NRBC Absolute <0.01 <0.01 x10(3)/mc L 07/10/2024 8:35 AM [facility] Neutrophil % 72.0 % 07/10/2024 8:35 AM [facility] Neutrophil Absolute (ANC) - Automated 6.10 1.70 - 6.10 x10(3)/mc L 07/10/2024 8:35 AM [facility] Lymph % 15.0 % 07/10/2024 8:35 AM [facility] Lymph Absolute 1.27 0.90 - 3.20 x10(3)/mc L 07/10/2024 8:35 AM [facility] Monocyte % 8.9 % 07/10/2024 8:35 AM [facility] Monocyte Absolute 0.75 0.30 - 0.90 x10(3)/mc L 07/10/2024 8:35 AM [facility] Eos % 2.6 % 07/10/2024 8:35 AM [facility] Eos Absolute 0.22 0.00 - 0.40 x10(3)/mc L 07/10/2024 8:35 AM [facility] Basophil % 1.1 % 07/10/2024 8:35 AM [facility] Baso Absolute 0.09 0.00 - 0.10 x10(3)/mc L 07/10/2024 8:35 AM [facility] Immature Gran % 0.4 % 8:35 AM [facility] Immature Gran Absolute <0.04 0.00 - 0.04 x10(3)/mc L 07/10/2024 8:35 AM [facility] Blood VENOUS BLOOD SPECIMEN / Unknown Venipuncture / Unknown 07/10/2024 8:11 AM EST 07/10/2024 8:27 AM EST Rosalba Patel MD HEMATOLOGY ORDERABLE S [facility] [place] [address] * (ABNORMAL) Comprehensive metabolic panel Non-fasting (07/10/2024 8:11 AM EST) Only the most recent of6 resultswithin the time period is included. Glucose 194 65 - 199 mg/dL 07/10/2024 9:04 AM [facility] Comment:Glucose Concentratio n >=200 mg/dL plus symptoms is consistent with Diabetes Mellitus. Blood Urea Nitrogen 21(H) 8 - 18 mg/dL 07/10/2024 9:04 AM [facility] Creatinine 0.59(L) 0.70 - 1.20 mg/dL 07/10/2024 9:04 AM [facility] Sodium 143 135 - 145 mMol/L 07/10/2024 9:04 AM [facility] Potassium 4.0 3.5 - 5.0 mMol/L 07/10/2024 9:04 AM [facility] Chloride 107 98 - 107 mMol/L 07/10/2024 9:04 AM [facility] Carbon Dioxide 22 22 - 31 mMol/L 07/10/2024 9:04 AM [facility] Anion Gap 14 5 - 15 mMol/L 07/10/2024 9:04 AM [facility] Calcium 9.2 8.5 - 10.5 mg/dL 07/10/2024 9:04 AM [facility] Protein, Total 6.5 6.1 - 8.0 g/dL 07/10/2024 9:04 AM [facility] Albumin 4.2 3.2 - 5.2 g/dL 07/10/2024 9:04 AM [facility] Aspartate Aminotransferase 12 <=30 unit/L 07/10/2024 9:04 AM [facility] Alanine Aminotransferase 14 0 - 30 unit/L 07/10/2024 9:04 AM [facility] Alkaline Phosphatase 105 35 - 105 unit/L 07/10/2024 9:04 AM [facility] Bilirubin, Total 0.2 <=1.3 mg/dL 07/10/2024 9:04 AM [facility] Est Glomerular Filtration Rate - Female 103 mL/min/1. 73 m?? 07/10/2024 9:04 AM [facility] Comment: This patient's estimated GFR [...] Foundation Fasting Status No 07/10/2024 9:04 AM EST [facility] Blood VENOUS BLOOD SPECIMEN / Unknown Venipuncture / Unknown 07/10/2024 8:11 AM EST 07/10/2024 8:27 AM EST Rosalba Patel MD CHEMISTRY ORDERABLES [facility] [place] [address] * Film Library- Storage Only CT Chest (06/21/2024 4:38 PM EST) Narrative DH RAD - 06/21/2024 4:38 PM EST This exam is auto-finalizing. It's purpose is for storage only. Tani Robertson MD IMG FILM LIBRARY ORD ERABLES [place], [place] * Scan, Peripheral Blood (06/04/2024 9:07 AM EST) RBC Morphology Abnormal 06/04/2024 10:30 AM EST [facility] Platelet Estimate Normal Normal 024 10:30 AM EST [facility] Polychromasia Present 06/04/2024 10:30 AM EST [facility] Blood VENOUS BLOOD SPECIMEN / Unknown Mediport Line / Unknown 06/04/2024 9:07 AM EST 06/04/2024 9:29 AM EST Rosalba Patel MD HEMATOLOGY ORDERABLE S Performing Organization Address City/[facility] Co de Phone Number [facility] [place] [address] * Mammo US Biopsy Lymph Node Left (05/08/2024 9:41 AM EDT) WORKSTATION ID [id number] 1 [facility] Anatomical Region Laterality Modality Breast Left Mammography [...] who have questions please contact the health lawn care technician that requested your imaging first. ? --------ORIGINAL [...] obtained using a Inrad 18G device. A [place] Twirl marker clip was placed. Cranio-caudal and [...] who have questions please contact the health lawn care technician that requested your imaging first. ? Impressions [...] who have questions please contact the health lawn care technician that requested your imaging first. ? [facility] [place] [address] [place] ??[id number] Narrative 05/08/2024 1:09 PM EDT EXAMINATION: MAMMO [...] obtained using a Inrad 18G device. A [place] Twirl marker clip was placed. Cranio-caudal and [...] Case Report Surgical Pathology Report ? Case: [id number] ? Authorizing Provider: ??Daily Amaral MD ?? Collected: ? 05/08/2024 0924 ? Ordering Location: ? Mammography at [facility] ?Received: ?05/08/2024 1240 ? Pathologist: ? Keyla Rodas, DO ? Specimen: ?Breast, Left, left axilla-lymph node ? 05/09/2024 11:03 AM EDT [facility] Final Diagnosis A. 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 05/09/2024 11:03 AM EDT [facility] Clinical Information A. Breast, Left, left axilla-lymph node Rule out malignancy Malignant neoplasm of left breast in female, estrogen receptor positive, unspecified site of breast [C50.912, Z17.0] 05/09/2024 11:03 AM EDT [facility] Gross Description A. Breast, Left, left axilla-lymph node. A - Labeled/Fixati ve: Left axilla lymph node, formalin. Quantity/Size: Three, ranging from 0.5 x 0.1 cm to 1.1 x 0.1 cm Tissue Description: [place]-white needle core biopsies. Sections/Proce ssing: Entirely submitted in 1 cassette labeled A1. Ischemic time: 2 minutes Total fixation time in formalin: 13 hours 34 minutes The ASCO/CAP guideline related to formalin fixation time has been met (6-72 hours). The ASCO/CAP guideline related to cold ischemic time has been met (<1 hour). sns 05/09/2024 11:03 AM EDT [facility] [facility] Result Note THIS RESULT REQUIRES PHYSICIAN/KINGS FOLLOW UP(A) 05/09/2024 11:03 AM EDT [facility] Tissue LEFT BREAST STRUCTURE / Unknown 05/08/2024 9:24 AM EDT 05/08/2024 12:40 PM EDT Daily Amaral MD PATHOLOGY/CYTOLOG Y ORDERABLES [facility] [place] [address] * Mammo US Axilla Left (05/08/2024 8:30 AM EDT) WORKSTATION ID [id number] DH [...] who have questions please contact the health lawn care technician that requested your imaging first. ? Narrative [...] Right (05/08/2024 8:15 AM EDT) WORKSTATION ID [id number] DH RAD Anatomical Region Laterality Modality [...] who have questions please contact the health lawn care technician that requested your imaging first. ? Narrative [...] venous port implant Indication: Breast cancer, durable long-term central venous access for chemotherapy Procedure summary: [...] the presence of an attending radiologist. Resident (tassel making machine operator): Jossy Velasco MD Attending: Patricio Christy MD Not present for the procedure. 05/05/2024 Dallin Falcon ELECTROMECHANICAL EQUIPMENT TESTER IMG IR ORDERABLES * ECHO COMPLETE (05/05/2024 12:09 PM EDT) EF 59 HEARTLAB SYSTEM Anatomical Region Laterality Modality Cardiac Other 05/05/2024 11:2 2 AM EDT Narrative 05/05/2024 1:06 PM EDT [address] [place] [address] ? Echocardiogram Report Name: JOSMICHELLEMARTHA ?Study Date: 05/05/2024 11:22 AMBP: 127/82 mmHg : 1965 ? Height: 164 cm ? Account: [id number] Age: 59 yrs ? Weight: 82 kg Gender: Female ?BSA: 1.9 m2 Ordering Physician: DALLIN FALCON Referring Physician: DALLIN FALCON Performed By: NATALIIA Haque Reason For Study: Malignant neoplasm of lower-outer quadrant of left breast of female Exam Location: [facility]. Interpretation Summary 1. Mildly increased left [...] regurgitation. No prior study for comparison. Procedure Complete-[id number]. Satisfactory quality. There is normal sinus rhythm. [...] Note Chantel Villavicencio MD - 05/05/2024 [address] [place] [address] Echocardiogram Report Name: MARTHA ESTRADA Study Date: :22 AMBP: 127/82 mmHg : 1965 Height: 164 cm Account: [id number] Age: 59 yrs Weight: 82 kg Gender: Female BSA: 1.9 m2 Ordering Physician: DALLIN FALCON Referring Physician: DALLIN FALCON Performed By: NATALIIA Haque Reason For Study: Malignant neoplasm of lower-outer quadrant of leftbreast of female Exam Location: [facility]. Interpretation Summary 1. Mildly increased left [...] regurgitation. No prior study for comparison. Procedure Complete-[id number]. Satisfactory quality. There is normal sinus rhythm. [...] Aneurysmal 15-16diffuse Dallin Falcon APRN ECHO ORDERABLES * NM Bone Scan Whole Body (04/29/2024 10:53 AM EDT) WORKSTATION ID [id number] DH RAD Anatomical Region Laterality Modality Nuclear Medicine [...] who have questions please contact the health lawn care technician that requested your imaging first. ? Narrative [...] patients who have questions please contactthe health lawn care technician that requested your imaging first. Daily Amaral MD [facility] ORDERABLES * CT Chest Abdomen Pelvis w Contrast (Generic) (04/25/2024 1:50 PM EDT) WORKSTATION ID [id number] RAD Anatomical Region Laterality Modality Abdomen, Pelvis [...] who have questions please contact the health lawn care technician that requested your imaging first. ? Narrative 04/28/2024 10:09 AM EDT EXAMINATION: CT [...] patients who have questions please contactthe health lawn care technician that requested your imaging first. Daily Amaral MD IMG CT ORDERABLES * (ABNORMAL) U Albumin/Cre Ratio (08/06/2015) Albumin / Creatinin Ratio, Urine 5.0([facility]) 0 - 29 DORA ARRIAGA DAY CONVERSION Creatinine, Urine 130.2(Exte rnal Lab) DORA ARRIAGA DAY CONVERSION Albumin, Urine 6.6([facility]) 0 - 20 DORA ARRIAGA DAY CONVERSION 08/06/2015 Results Provider Apd Conversion URINE ORDERABLES CONVERSION * (ABNORMAL) Hemoglobin A1c (08/06/2015) Estimated Average [...] CONVERSION Cholesterol, Total 208(ExtH) 50 - 200 ODRA ARRIAGA DAY CONVERSION 08/06/2015 Results Provider Apd Conversion MD GUILLERMO ARRIAGAABLES Performing Organization Address City/[facility] de Phone Number DORA ARRIAGA DAY CONVERSION from Last 3 Months or Most Recently Relevant to Health Maintenance Advance Directives Documents on File Type Date Recorded Patient Tube Roller Expl anation Personal Tube Roller 04/11/2024 2:25 PM Colleen Adler - Daughter VERBAL ONLY Personal Tube Roller 04/09/2024 3:40 PM Erik Estrada - Spouse VERBAL ONLY * Attempt Cardiopulmonary Resuscitation - Inpatient (Latest Code Status on File) Date Activated Date Inactivated Comments 05/05/2024 12:55 PM 05/06/2024 4:33 AM Question Answer Comments Code Status decision made by: Patient Content of discussion: full code Care Teams Orchid Hand Relationship Specialty Start Date End Date Nat Nicolas, ELECTROMECHANICAL EQUIPMENT TESTER [address] [place] [address] PCP - General Family Medicine 04/02/24
--- OUTSIDE RECORDS SUMMARY | 2024-07-17 10:04 | XMS_ITS | Encounter Summary ---
Author Organization [facility] [place] [address] Care Team Providers Care System Support Developer Name Role Phone NicolasZacNatcarlos Malloy APRN Primary [...] EST Appointment [facility] [place] [place] [address] 08/07/2024 10:00 AM EST Office Visit Hematology [place] [address] Rosalba Patel MD [facility] [place] [address] 08/07/2024 12:00 PM EST Appointment Hematology [place] [address] 08/21/2024 8:30 AM EST Appointment Hematology [place] [address] 08/21/2024 10:00 AM EST Office Visit Hematology [place] [address] Rosalba Patel MD [facility] [place] [address] 08/21/2024 11:30 AM EST Appointment Hematology [place] [address] documented as of this encounter Visit Diagnoses Not on filedocumented in this encounter Care Teams System Support Developer Relationship Specialty Start Date End Date Nat Nicolas APRN [address] [place] [address] PCP - General Family Medicine 04/02/24 documented as of this encounter
--- OUTSIDE RECORDS SUMMARY | 2024-07-17 10:04 | XMS_ITS | Encounter Summary ---
[place] [address] Care Team Providers Care Semiautomatic Stitcher Operator Name Role Phone Nat Nicolas APRN Primary Care Provider Reason for Visit * Reason Onset Date Comments Referral 07/10/2024 Encounter Details Date Type Department Care Team (Late st Contact Info) Description 07/10/2024 Telephone Cardiology at [address] [address] Deja Blandon, concrete block maker Social History Tobacco Use Types Packs/Day Years [...] encounter Miscellaneous Notes * Telephone Encounter - Deja Blandon, RN - 07/10/2024 9:16 AM EST Cardiology referral documented in this encounter Plan of Treatment Upcoming Encounters Date Type Department Care Team (Late st Contact Info) Description 08/07/2024 9:00 AM EST Appointment [place]ology [place] [address] 08/07/2024 10:00 AM EST Office Visit [place]ematology [place] [address] Rosalba Patel MD [facility] [place] [address] 08/07/2024 12:00 PM EST Appointment H[place]ology [place] [address] 08/21/2024 8:30 AM EST Appointment H[place]ology [place] [address] 08/21/2024 10:00 AM EST Office Visit [place]ology [place] [address] Rosalba Patel MD [facility] [place] [address] 08/21/2024 11:30 AM EST Appointment [place]ology [place] [address] documented as of this encounter Visit Diagnoses Not on filedocumented in this encounter Care Teams Semiautomatic Stitcher Operator Relationship Specialty Start Date End Date Nat Nicolas APRN [address] [place] [address] PCP - General Family Medicine 04/02/24 documented as of this encounter
--- OUTSIDE RECORDS SUMMARY | 2024-07-17 10:04 | XMS_ITS | Encounter Summary ---
[place] [address] Care Team Providers Care Director Professional Services Name Role Phone Nat Nicolas APRN Primary Care Provider Reason for Visit * Reason Comments Follow-up Encounter Details Date Type Department Care Team (Late st Contact Info) Description 06/18/2024 1:30 PM EST Office Visit Hematology [place] [address] Yamileth Nur APRN [facility] [place] [address] Malignant neoplasm of lower-outer quadrant of left [...] from the original note were not included. [facility] Patient Name: Martha Rodriguez is a 59 y.o. female from [place], [place] (1 hour 10 min away). : 1965 Visit Date: 06/20/2024 PCP: Nat Nicolas APRN Breast surgical oncology: Lashay Amaral MD Radiation oncology: Referral pending Reason for visit: Scheduled f/up for ddAC-T Summary: Martha Rodriguez is a 59 y.o. female with clinical Stage IIA ([id number]) multifocal invasive lobular carcinoma of the left breast, ER + / MS + / HER2 -, diagnosed on 03/06/2024. She presents today for neoadjuvant ddAC-T. DIAGNOSIS: Breast cancer pathology & staging: Clinical stage: [id number] Stage IIA Pathological stage: pending surgery Pathology: Invasive lobular carcinoma, grade 2, LVI-. Surgical pathology pending. Lauryn status: 4 abnormal axillary nodes, level I and II, seen on MRI - axillary u/s and biopsy 05/08/2024 positive for metastatic carcinoma Receptor status: ER positive (>90%, strong) MS positive (>70% strong) HER2 negative by FISH, [...] grade 2, LVI- ER positive (>90%, strong) MS positive (>70% strong) HER2 negative by FISH, [...] Family history of prostate cancer * Ashkenazi Catholic heritage * Personal history of known genetic mutation Sister is BRCA2? positive, Martha is negative by report Assessment & Plan: Martha Rodriguez is a 59 y.o. female with PMHx significant for but not limited to HTN, diabetes, migraines, medication non-compliance, and new diagnosis of multifocal invasive lobular carcinoma of the LEFT breast, ER+MS+Her2-, who presents today in scheduled follow-up for neoadjuvant ddAC-T. # Left breast cancer, ILC, ER positive, MS positive, HER2 negative - Risk scoring: UK [...] Follow-up: RTC in 2 weeks for labs, MD/METER CALIBRATOR visit and C5D1 neoadj ddAC-T Review of [...] > 50% spend in discussion of above, [id number] time and coordination of care with the patient today Yamileth Nur DNP, DATA ENTRY EMAIL PROCESSOR, NADEEN- Women's Health Nurse Practitioner Breast Oncology Pager: [phone] documented in this encounter Plan of Treatment Upcoming Encounters Date Type Department Care Team (Late st Contact Info) Description 08/07/2024 9:00 AM EST Appointment Hematology [place] [address] 08/07/2024 10:00 AM EST Office Visit Hematology [place] [address] Rosalba Patel MD [facility] [place] [address] 08/07/2024 12:00 PM EST Appointment Hematology [place] [address] 08/21/2024 8:30 AM EST Appointment Hematology [place] [address] 08/21/2024 10:00 AM EST Office Visit Hematology [place] [address] Rosalba Patel MD [facility] [place] [address] 08/21/2024 11:30 AM EST Appointment Hematology [place] [address] documented as of this encounter Visit Diagnoses Diagnosis Malignant neoplasm of lower-outer quadrant of left breast of female, estrogen receptor positive Type 2 diabetes mellitus without complication, without long-term current use of insulin Examination prior to chemotherapy Other specified pre-operative examination documented in this encounter Care Teams Director Professional Services Relationship Specialty Start Date End Date Nat Nicolas, DATA ENTRY EMAIL PROCESSOR [address] [place] [address] PCP - General Family Medicine 04/02/24 documented as of this encounter
--- OUTSIDE RECORDS SUMMARY | 2024-07-17 10:04 | XMS_ITS | Encounter Summary ---
[place] [address] Care Team Providers Care Tax Economist Name Role Phone Nat Nicolas APRN Primary [...] [facility] [address] [place] [address] [address] Referral ID Status Reason Start Date Expiration Date V isits Requested Visits Authorized [id number] Authorized 04/29/2024 04/29/2025 99 107 Encounter Details Date Type Department Care Team (Latest Contact Info) Description 06/18/2024 1:03 PM EST - 06/18/2024 11:59 PM EST Hospital Encounter Hematology [place] [address] Malignant neoplasm of lower-outer quadrant [...] AM EST Appointment Hematology [place] [address] 08/07/2024 10:00 AM EST Office Visit Hematology [place] [address] Rosalba Patel MD [facility] [address] [place] [address] 08/07/2024 12:00 PM EST Appointment Hematology [place] [address] 08/21/2024 8:30 AM EST Appointment Hematology [place] [address] 08/21/2024 10:00 AM EST Office Visit Hematology [place] [address] Rosalba Patel MD [facility] [address] [place] [address] 08/21/2024 11:30 AM EST Appointment Hematology [place] [address] documented as of this encounter Visit Diagnoses [...] 2 minutes is a recommendation from the assistant professor of biochemistry. Administer prior to chemotherapy., Routine Given 06/18/2024 [...] mg documented in this encounter Care Teams Tax Economist Relationship Specialty Start Date End Date Nat Nicolas APRN [address] [place] [address] PCP - General Family Medicine 04/02/24 documented as of this encounter
--- OUTSIDE RECORDS SUMMARY | 2024-07-17 10:04 | XMS_ITS | Encounter Summary ---
Author Organization [facility] [address] Care Team Providers Care Technical Support Engineer Name Role Phone Nat Nicolas APRN Primary Care Provider Encounter Details Date Type Department Care Team (Late st Contact Info) Description 06/25/2024 6:25 PM EST Telehealth [place] [address] Telehealth, Neurology None Social History Tobacco Use Types Packs/Day [...] as of this encounter Miscellaneous Notes * Consult Note - Cherelle Love, - 06/25/2024 6:25 PM EST [facility] TELENEUROLOGY EMERGENT TELENEUROLOGY CONSULT NOTE Date 06/25/24 Patient: Martha Rodriguez : 1965 Gender: female VISIT Requesting Location: [facility] Requesting Physician: Dr Sánchez Diagnosis/Reason for Consult: transient ischemic attack (Note: not a tPA or thrombectomy candidate) Arrival Date: 06/25/2024 Arrival Time: 1700 Consult Request Time: 606PM Start Time of Video Consult: 8PM Time Last Known Well: 1650 PROVIDER History: Martha Rodriguez is a 59 yr old woman who has known breast CA and is receiving chemotherapy for that. Patient was seen in the ED Sunday for difficulty breathing and was discharged. 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 She felt completely paralyzed like her entire body couldn't move and felt very confused. She couldn't move to [id number], she couldn't steer the car, she couldn't put the car into park, and she felt like she couldn'tdrive. She said that she was driving the car about 5 mph and was all over the road and drove intothe post office building and someone helped her at that time. Her last chemotherapy for breast CA was Jun 18. She did not have numbness on one side of her body, but felt like both sides of her bodydid not feel normal. Her vision felt double and blurred. She does have a headache. She had 1 gramof IV acetaminophen. She occasionally does get headaches so this is not unusual for her. This headache She felt very confused and lightheaded during the event. The whole event took 30 mins to 45 mins to resolve- but she doesn't feel back to normal. She feels very tired. Past Medical History: Past Medical History: Diagnosis Date HTN (hypertension) 02/14/2013 Migraine headache 02/14/2013 Breast CA - receiving chemotherapy Type 2 DM Hyperlipidemia GERD Current Medications: Metformin/Glipizide HCTZ Lancet/Insulin Lisinopril Norvasc Nexium Allergies: Sulfa Neurologic Social History: Are you a current smoker or have you ever smoked: no Do you consume alcohol: no Vitals: Pulse: 110 Blood pressure: 131/84 NIH STROKE SCALE 1A. Level of Consciousness 0 1B. LOC Questions 0 1C. LOC Commands 0 2. Best Gaze 0 3. Visual 0 4. Facial Palsy 0 5. Motor Arm Left Arm 0 Right Arm 0 6. Motor Leg Left Leg 1 Right Leg 0 7. Limb Ataxia 0 8. Sensory 0 9. Best Language 0 10. Dysarthria 0 11. Extinction and Inattention (formerly neglect) 0 TOTAL 1 Additional Neurologic Examination Findings: Patient states she doesn't feel at her usual baseline. 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 Patient still doesn't feel like L leg is completely back to normal. Patient is hypercoagulable due to breast CA. Patient was not hypoglycemic. BP was ok during the event. Patient is not having abnormal heart rhythm to account for event on monitor currently. Also would r/o seizure, thought 30 mins is very long time frame. Patient c/o confusion during the event. RECOMMENDATIONS/PLAN: 1) Bedside swallow study 2) if swallow ok, give ASA 325 now 3) permissive hypertension 4) plan for MRI with and without contrast 5) neuro checks 6) recommend EEG 7) cardiac monitoring r/o heart arrhythmia OBSERVATION/ADMISSION/TRANSFER: Admit, likely needs tertiary care center w/neuro for MRI/EEG Discussed with Dr. Sánchez, ED @ [facility] Cherelle Love DO [facility] Neurology Telehealth documented in this encounter Plan of Treatment Upcoming Encounters Date Type Department Care Team (Late st Contact Info) Description 08/07/2024 9:00 AM EST Appointment Hematology [place] [address] 08/07/2024 10:00 AM EST Office Visit Hematology [place] [address] Rosalba Patel MD [facility] [place] [address] 08/07/2024 12:00 PM EST Appointment Hematology [place] [address] 08/21/2024 8:30 AM EST Appointment Hematology [place] [address] 08/21/2024 10:00 AM EST Office Visit Hematology [place] [address] Rosalba Patel MD [facility] [place] [place] [address] 08/21/2024 11:30 AM EST Appointment Hematology [place] [address] documented as of this encounter Visit Diagnoses Not on filedocumented in this encounter Care Teams Technical Support Engineer Relationship Specialty Start Date End Date Nat Nicolas, JEEPER OPERATOR [address] [place] [address] PCP - General Family Medicine 04/02/24 documented as of this encounter
--- OUTSIDE RECORDS SUMMARY | 2024-07-17 10:04 | XMS_ITS | Encounter Summary ---
[place] [address] Care Team Providers Care Drug Safety Data Management Specialist Name Role Phone Nat Nicolas APRN Primary Care Provider Encounter Details Date Type Department Care Team (Late st Contact Info) Description 06/28/2024 Telephone Hematology Oncology Level [address] [place] [address] Jeffery Polanco MD [facility] DR HEMATOLOGY/[place] [address] Social History Tobacco Use Types Packs/Day Years [...] encounter Miscellaneous Notes * Telephone Encounter - Jeffery Polanco MD - 06/28/2024 2:29 PM EST Received a page to call Martha . I called but there was no answer. Mailbox full. documented in this encounter Plan of Treatment Upcoming Encounters Date Type Department Care Team (Late st Contact Info) Description 08/07/2024 9:00 AM EST Appointment Hematology [place] [address] 08/07/2024 10:00 AM EST Office Visit Hematology [place] [address] Rosalba Patel MD [facility] [place] [address] 08/07/2024 12:00 PM EST Appointment Hematology [place] [address] 08/21/2024 8:30 AM EST Appointment Hematology [place] [address] 08/21/2024 10:00 AM EST Office Visit Hematology [place] [address] Rosalba Patel MD [facility] [place] [address] 08/21/2024 11:30 AM EST Appointment Hematology [place] [address] documented as of this encounter Visit Diagnoses Not on filedocumented in this encounter Care Teams Drug Safety Data Management Specialist Relationship Specialty Start Date End Date Nat Nicolas APRN [address] [place] [address] PCP - General Family Medicine 04/02/24 documented as of this encounter
--- OUTSIDE RECORDS SUMMARY | 2024-07-17 10:04 | XMS_ITS | Encounter Summary ---
[place] [address] Care Team Providers Care Veneer Splicer Name Role Phone Nat Nicolas APRN Primary [...] current use of insulin Rosalba Patel MD [facility] [place] [address] [address] Referral ID Status Reason Start Date Expiration Date V isits Requested Visits Authorized [id number] Authorized 04/29/2024 04/29/2025 99 [id number] Encounter Details Date Type Department Care Team (Latest Contact Info) Description 06/04/2024 8:55 AM EST - 06/04/2024 8:57 AM EST Hospital Encounter Hematology [place] [address] Malignant neoplasm of lower-outer quadrant [...] STARTED: 1435 TIME TREATMENT ENDED: 1610 Martha Rodriguez, 59 y.o. female with diagnosis [...] AM EST Appointment Hematology [place] [address] 08/07/2024 10:00 AM EST Office Visit Hematology [place] [address] Rosalba Patel MD [facility] [place] [place] [address] 08/07/2024 12:00 PM EST Appointment Hematology [place] [address] 08/21/2024 8:30 AM EST Appointment Hematology [place] [address] 08/21/2024 10:00 AM EST Office Visit [place]ematology [place] [address] Rosalba Patel MD [facility] [place] [place] [address] 08/21/2024 11:30 AM EST Appointment Hematology [place] [address] documented as of this encounter Procedures Procedure Name Priority Date/Time Associated Diagnosis Comments POC, GLUCOSE Routine 06/04/2024 2:38 PM EST documented in this encounter Results * (ABNORMAL) POC, GLUCOSE (06/04/2024 2:38 PM EST) [facility] Signature Glucometer, POC 350(H) 65 - 199 mg/dL 06/04/2024 2:41 PM EST [facility] Comment:Supplemental ranges: <140 mg/dL before meals <180 mg/dL all other times of the day. Blood CAPILLARY BLOOD / Unknown 06/04/2024 2:38 PM EST 06/04/2024 2:41 PM EST Unknown POINT OF CARE TEST O RDERABLES [facility] [place] [address] * (ABNORMAL) Cancer antigen 15-3 (06/04/2024 9:07 AM EST) Pathologist [facility] CA 15-3 30(H) <=25 unit/mL 06/04/2024 10:13 AM [facility] Comment:This result was gene rated using a Tani Elías immunoassay. Results obtained from other methods or manufacturers cannot be used interchangeably with this method. Blood VENOUS BLOOD SPECIMEN / Unknown Mediport Line / Unknown 06/04/2024 9:07 AM EST 06/04/2024 9:29 AM EST Rosalba Patel MD CHEMISTRY ORDERABLES [facility] [place] [address] * (ABNORMAL) Comprehensive metabolic panel Non-fasting (06/04/2024 9:07 AM EST) [facility] Glucose 253(H) 65 - 199 mg/dL 06/04/2024 10:04 AM [facility] Comment:Glucose Concentratio n >=200 mg/dL plus symptoms is consistent with Diabetes Mellitus. Blood Urea Nitrogen 12 8 - 18 mg/dL 06/04/2024 10:04 AM [facility] Creatinine 0.47(L) 0.70 - 1.20 mg/dL 06/04/2024 10:04 AM [facility] Sodium 138 135 - 145 mMol/L 06/04/2024 10:04 AM [facility] Potassium 4.0 3.5 - 5.0 mMol/L 06/04/2024 10:04 AM [facility] Chloride 101 98 - 107 mMol/L 06/04/2024 10:04 AM [facility] Carbon Dioxide 25 22 - 31 mMol/L 06/04/2024 10:04 AM [facility] Anion Gap 12 5 - 15 mMol/L 06/04/2024 10:04 AM [facility] Calcium 9.1 8.5 - 10.5 mg/dL 06/04/2024 10:04 AM [facility] Protein, Total 6.8 6.1 - 8.0 g/dL 06/04/2024 10:04 AM [facility] Albumin 4.2 3.2 - 5.2 g/dL 06/04/2024 10:04 AM [facility] Aspartate Aminotransferase 11 <=30 unit/L 06/04/2024 10:04 AM [facility] Alanine Aminotransferase 23 0 - 30 unit/L 06/04/2024 10:04 AM [facility] Alkaline Phosphatase 196(H) 35 - 105 unit/L 06/04/2024 10:04 AM [facility] Bilirubin, Total 0.2 <=1.3 mg/dL 06/04/2024 10:04 AM [facility] Est Glomerular Filtration Rate - Female 109 mL/min/1. 73 m?? 06/04/2024 10:04 AM [facility] Comment: This patient's estimated GFR [...] Foundation Fasting Status No 06/04/2024 10:04 AM [facility] Blood VENOUS BLOOD SPECIMEN / Unknown Mediport Line / Unknown 06/04/2024 9:07 AM EST 06/04/2024 9:29 AM EST Rosalba Patel MD CHEMISTRY ORDERABLES [facility] [place] [address] * (ABNORMAL) CBC (with Diff) (06/04/2024 9:07 AM [facility]) White Blood Cell 13.39(H) 4.00 - 9.50 x10(3)/mc L 06/04/2024 10:30 AM [facility] Red Blood Cell 4.15 4.00 - 5.21 x10(6)/mc L 06/04/2024 10:30 AM [facility] Hemoglobin 12.8 11.7 - 15.5 g/dL 06/04/2024 10:30 AM [facility] Hematocrit 37.1 35.7 - 45.8 % 06/04/2024 10:30 AM [facility] Mean Cell Volume 89.4 82.6 - 94.4 fL 06/04/2024 10:30 AM [facility] Mean Cell Hemoglobin 30.8 27.1 - 32.0 pg 06/04/2024 10:30 AM [facility] Mean Cell Hemoglobin Concentration 34.5 31.7 - 35.0 g/dL 06/04/2024 10:30 AM [facility] Platelet 235 145 - 357 x10(3)/mc L 06/04/2024 10:30 AM [facility] Mean Platelet Volume 10.9 7.6 - 12.9 fL 06/04/2024 10:30 AM [facility] RDW Standard Deviation 38.5 37.0 - 46.0 fL 06/04/2024 10:30 AM [facility] RDW coefficient of variation 12.2 11.5 - 14.1 % 06/04/2024 10:30 AM [facility] NRBC% auto 0.4 % 06/04/2024 10:30 AM [facility] NRBC Absolute 0.06(H) <0.01 x10(3)/mc L 06/04/2024 10:30 AM [facility] Neutrophil % 62.1 % 06/04/2024 10:30 AM [facility] Comment:This is an appended report. These results have been appended to a previously preliminary verified report. Neutrophil Absolute (ANC) - Automated 8.32(H) 1.70 - 6.10 x10(3)/mc L 06/04/2024 10:30 AM [facility] Comment:This is an appended report. These results have been appended to a previously preliminary verified report. Lymph % 15.0 % 06/04/2024 10:30 AM [facility] Comment:This is an appended report. These results have been appended to a previously preliminary verified report. Lymph Absolute 2.01 0.90 - 3.20 x10(3)/mc L 06/04/2024 10:30 AM [facility] Comment:This is an appended report. These results have been appended to a previously preliminary verified report. Monocyte % 6.8 % 06/04/2024 10:30 AM [facility] Comment:This is an appended report. These results have been appended to a previously preliminary verified report. Monocyte Absolute 0.91(H) 0.30 - 0.90 x10(3)/mc L 06/04/2024 10:30 AM [facility] Comment:This is an appended report. These results have been appended to a previously preliminary verified report. Eos % 0.4 % 06/04/2024 10:30 AM [facility] Comment:This is an appended report. These results have been appended to a previously preliminary verified report. Eos Absolute 0.05 0.00 - 0.40 x10(3)/mc L 06/04/2024 10:30 AM [facility] Comment:This is an appended report. These results have been appended to a previously preliminary verified report. Basophil % 1.4 % 06/04/2024 10:30 AM [facility] Comment:This is an appended report. These results have been appended to a previously preliminary verified report. Baso Absolute 0.19(H) 0.00 - 0.10 x10(3)/mc L 06/04/2024 10:30 AM EST [facility] Comment:This is an appended report. These results have been appended to a previously preliminary verified report. Immature Gran % 14.3 % 10:30 AM EST [facility] Comment:This is an appended report. These results have been appended to a previously preliminary verified report. Immature Gran Absolute 1.91(H) 0.00 - 0.04 x10(3)/mc L 06/04/2024 10:30 AM EST [facility] Comment:This is an appended report. These results have been appended to a previously preliminary verified report. Blood VENOUS BLOOD SPECIMEN / Unknown Mediport Line / Unknown 06/04/2024 9:07 AM EST 06/04/2024 9:29 AM EST Rosalba Patel MD HEMATOLOGY ORDERABLE S [facility] [place] [address] documented in this encounter Visit Diagnoses Diagnosis [...] 2 minutes is a recommendation from the licensed reactor operator. Administer prior to chemotherapy., Routine Given 06/04/2024 [...] Arm documented in this encounter Care Teams Veneer Splicer Relationship Specialty Start Date End Date Nat Nicolas APRN [address] [place] [address] PCP - General Family Medicine 04/02/24 documented as of this encounter
--- OUTSIDE RECORDS SUMMARY | 2024-07-17 10:04 | XMS_ITS | Encounter Summary ---
[place] [address] Care Team Providers Care Wine Manager Name Role Phone Nat Nicolas APRN Primary Care Provider Reason for Visit * Reason Onset Date Comments Headache 07/14/2024 Encounter Details Date Type Department Care Team (Late st Contact Info) Description 07/14/2024 Telephone Hematology [place] [id number] Caroline Bell, RN Headache Social History Tobacco Use Types Packs/Day Years [...] Telephone Encounter - Caroline Bell RN - 07/14/2024 8:23 AM EST TRIAGE CALL Message received from physician office secretary: Reason for call: not feeling well Martha has had a really bad headache for the past 2 days and nothing she takes is helping. Also she has been sick to her stomach. Malignant neoplasm of lower-outer quadrant of left breast, estrogen positive. Received C5 Paclitaxel + Onpro on 07/10; recent acute stroke; being followed by cnc lathe machinist Plan of care and actions for worsening condition per Telephone Triage for Oncology Nurses, 3rd Edition, [employer] [facility], 2019/Telephone Triage Protocols for Nurses 6th Edition, Krysten Tarango/ [facility] Standard Practice and/or discussion w/ provider . Caller: Martha Rodriguez (patient) Identified via name and : Yes Patient reports having a headache for 2 days.She has taken tylenol and Advil without relief. Reported nausea/emesis X1 a few days ago. Currently denies nausea but continues to have a stomachache. Patient is on a heart monitor and states that she cannot keep the probes connected. Encouraged patient to follow up with prescribing MD-her cnc lathe machinist. Reports HR of 95, 105, 110; BP 148/87, 124/94; PCP recently adjusted her medication to include lisinopril.Patient also monitors her BG and reports recent readings of 168,368, 163, 121. Insulin recently adjusted and increased by PCP. Patient reports drinking 2-3 glasses of water a day and states that it is hard to drink. Suggested other ways to stay hydrated (hot herbal teas, broth) . Encouraged patient into increase fluid intake. Informed patient that dehydration can cause headaches. Encouraged patient to take tylenol and zofran if nauseated, although zofran can cause headaches. Reports appetite is normal. Denies SOB,chest pain, visual changes, balance issues or any other new symptoms. H/A rated at a 10. BM are normal. Plan of Care and actions for worsening condition patient will follow up with her PCP . Patient willcall PCP if cannot resolve headaches. And will try increasing fluid intake. Pt/responsible caregiver able to read back and verbalize understanding of plan and intention to comply with plan/disposition: Yes Pt/responsible caregiver able to verbalize understanding of and intention to call clinic with any new or worsening signs or symptoms. Yes Follow up needed? no, patient will follow up with PCP documented in this encounter Plan of Treatment Upcoming Encounters Date Type Department Care Team (Late st Contact Info) Description 08/07/2024 9:00 AM EST Appointment Hematology [place] [address] 08/07/2024 10:00 AM EST Office Visit Hematology [place] [address] Rosalba Patel MD [facility] [place] [address] 08/07/2024 12:00 PM EST Appointment Hematology [place] [address] 08/21/2024 8:30 AM EST Appointment Hematology [place] [address] 08/21/2024 10:00 AM EST Office Visit Hematology [place] [address] Rosalba Patel MD [facility] [place] [address] 08/21/2024 11:30 AM EST Appointment Hematology [place] [address] documented as of this encounter Visit Diagnoses Not on filedocumented in this encounter Care Teams Wine Manager Relationship Specialty Start Date End Date Nat Nicolas APRN [address] [place] [address] PCP - General Family Medicine 04/02/24 documented as of this encounter
--- OUTSIDE RECORDS SUMMARY | 2024-07-17 10:04 | XMS_ITS | Encounter Summary ---
[place] [address] Care Team Providers Care Leasing Manager Name Role Phone Nat Nicolas APRN Primary Care Provider Encounter Details Date Type Department Care Team (Latest Contact Info) Description 05/26/2024 8:30 AM EST TH Visit (TeleHealth) Hematology [place] [address] Andrés Donahue, [facility] Malignant neoplasm of lower-outer quadrant of [...] this encounter Progress Notes * Andrés Donahue, [facility] - 05/26/2024 8:30 AM EST Oncology Clinical [...] was given 05/22. Today is day [address] Antiemetic Regimen Aloxi (palonosetron) 0.25 mg IV [...] Pharmacy will continue to regularly meet with Martha until an optimal antiemetic regimen is determined. [...] AM EST Appointment Hematology [place] [address] 08/07/2024 10:00 AM EST Office Visit Hematology [place] [address] Rosalba Patel MD [facility] [place] [address] 08/07/2024 12:00 PM EST Appointment Hematology [place] [address] 08/21/2024 8:30 AM EST Appointment Hematology [place] [address] 08/21/2024 10:00 AM EST Office Visit [place]ematology [place] [address] Rosalba Patel MD [facility] [place] [address] 08/21/2024 11:30 AM EST Appointment Hematology [place] [address] documented as of this encounter Visit Diagnoses Diagnosis Malignant neoplasm of lower-outer quadrant of left breast of female, estrogen receptor positive documented in this encounter Care Teams Leasing Manager Relationship Specialty Start Date End Date Nat Nicolas APRN [address] [place] [address] PCP - General Family Medicine 04/02/24 documented as of this encounter
--- OUTSIDE RECORDS SUMMARY | 2024-07-17 10:05 | XMS_ITS | Encounter Summary ---
Author Organization [facility] [place] [address] Care Team Providers Care Abrasive Sawyer Name Role Phone Nat Nicolas APRN Primary Care Provider Reason for Visit * Reason Comments Follow-up Encounter Details Date Type Department Care Team (Late st Contact Info) Description 05/08/2024 11:30 AM EDT Office Visit Hematology [place] [address] Rosalba Patel MD [facility] [address] Malignant neoplasm of lower-outer quadrant of left [...] from the original note were not included. [facility] Patient Name: Martha Rodriguez is a 59 y.o. female from [place], [place] (1 hour 10 min away). : 1965 Visit Date: 05/07/2024 PCP: Nat Nicolas APRN Breast surgical oncology: Lashay Amaral MD Radiation oncology: Referral pending Reason for visit: Scheduled f/up for C1D1 ddAC-T Summary: Martha Rodriguez is a 59 y.o. 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 She presents today for neoadjuvant ddAC-T. DIAGNOSIS: Breast cancer pathology & staging: Clinical stage: [id number] Stage IIA Pathological stage: pending surgery Pathology: [...] Follow-up: RTC in 2 weeks for labs, MD/PUBLIC AFFAIRS DIRECTOR visit and C2D1 neoadj ddAC-T Interval History: 05/08/2024 Here for C1D1 ddAC-T Had LN biopsy today; did not know she was getting chemo today Scheduling issue - due for scope/EGD on 05/22 at OSH - wondering how to time this with chemo 04/30/2024 Here to discuss staging scans and next steps Marhta presents with Patel, and family on the [...] Family history of prostate cancer * Ashkenazi Rastafarian heritage * Personal history of known genetic [...] IR Mediport Placement 05/05/2024 Debra Tamayo PA [facility] INTERVENTIONL RAD MAMMO US BIOPSY LEFT Left 04/02/2024 Mammo Us Biopsy Left 04/02/2024 Dorota Anderson MD [facility] RAD MAMMOGRAPHY Family History: Family History [...] Units Case Report Surgical Pathology Report Case: [id number] Authorizing Provider: Dorota Anderson MD Collected: 04/02/2024 0912 Ordering Location: Mammography at [facility] Received: 04/02/2024 1254 Pathologist: Keyla Rodas DO Specimen: Breast, Left, LEFT BREAST US BX Final Diagnosis A. Left breast, core needle biopsy: - Invasive lobular carcinoma, intermediate grade (modified SBR score = 7), measuring at least 14 mm. - Lymphovascular invasion not identified. at 1151 Additional Studies Estrogen Receptor (ER) immunoreactivity: Positive Cancer cells with immunostaining: >90% Stain intensity: Strong Progesterone Receptor (MS) immunoreactivity: Positive Cancer cells with immunostainin% Stain [...] The assays were performed according to the contact lens edge buffer's instructions using Anti-ER (SP1) and Anti-MS (16) antibodies. These tests were developed and their performance characteristics determined by [facility]. They may not have been cleared or [...] 0.2 cm-1.5 x 0.2 cm Tissue Description: [place]-white fibrofatty needle core biopsies. Sections/Processing: Entirely submitted in 1 cassette labeled A1. Ischemic time: 1 minute ajw Result Note THIS RESULT REQUIRES PHYSICIAN/KINGS FOLLOW UP Abnormal [facility] Spec[facility] Collected: 04/02/24 09:12 Last Resulted: [...] Reading Date Result Priority Dorota Anderson MD [phone] 03/10/2024 Narrative & Impression INTERPRETATION OF OUTSIDE BREAST IMAGING I have been asked to consult on this patient by Dr. Nicolas because he/she believes a review of this study may change or alter the care of this patient. STUDIES FROM: [facility] CLINICAL HISTORY: ? bx; Sending Institution [facility]; Date of exam [id number]; I believe [...] cancers. Please note: The interpretation of the [facility] Breast Imaging Radiologist subspecialist may differ from the original radiologists interpretation. This is usually not due to a deficiency of the original interpreting radiologist, rather due to the greater skill level afforded by sub-specialization in the field and/or reasonable variations in interpretations. If you have a concern regarding the D-H interpretation you may contact the D Breast Photo Editor Office at . Thank you for letting us participate in the care of this patient. If you are a health care provider and have any questions regarding this report, please contact the number below. For patients who have questions please contact the health career coach that requested your imaging first. Electronically signed by: Dorota Anderson MD, [facility] ([phone]), at 03/10/2024 2:42 PM Component 1 mo ago WORKSTATION ID [id number] Resulting Agency [facility] Exam Ended: 03/10/24 07:30 Last Resulted: [...] Reading Date Result Priority Olive Garcia MD [phone] 04/08/2024 Armond Amezcua MD 04/08/2024 Narrative & Impression EXAMINATION: MRI BREAST WWO CONTRAST BILAT CLINICAL INDICATION: new breast cancer. History of left breast ILC ER/MS positive TECHNIQUE: Multiplanar sequences were obtained pre- [...] have questions please contact the health career coach that requested your imaging first. Electronically signed by: Olive Garcia [facility] ([phone]), at 04/08/2024 4:02 PM Component 2 wk ago WORKSTATION ID [id number] Resulting Agency [facility] Exam Ended: 04/08/24 10:00 Last Resulted: 04/08/24 16:02 Status: Final result Visible to patient: Yes (not seen) Next appt: 04/25/2024 at 10:35 AM in Lab ([facility]) Dx: Malignant neoplasm of lower-outer cole... 0 Result Notes Details Reading Physician Reading Date Result Priority Olive Garcia MD [phone] 2533 04/10/2024 Armond Amezcua MD 04/10/2024 Narrative & Impression EXAMINATION: MRI ADDITIONAL VIEW - BREAST CLINICAL INDICATION: new breast cancer - repeat imaging. Left breast ILC, ER-positive MS positive and HER-2 negative TECHNIQUE: Multiplanar sequences were obtained pre- and post- Dotarem enhancement, to include SPGR weighted dynamic run-off and subtraction sequences obtained after the intravenous administration of 16 ccs of Dotarem. Computer algorithm analysis for lesion detection and kinetic contrast enhancement curve analysis was performed, using [employer] software. COMPARISON STUDIES: Compared and/or correlated with [...] have questions please contact the health career coach that requested your imaging first. Electronically signed by: Olive Garcia [facility] ([phone]), at 04/10/2024 12:28 PM Component 13 d ago WORKSTATION ID [id number] Resulting Agency [facility] Exam Ended: 04/09/24 14:20 Last Resulted: [...] Reading Date Result Priority Anamaria Lopez MD [phone] 04/28/2024 Narrative & Impression EXAMINATION: CT [...] have questions please contact the health career coach that requested your imaging first. Electronically signed by: ANAMARIA LOPEZ MD, [facility] ([phone]), at 04/28/2024 10:09 AM Component 12 d ago WORKSTATION ID [id number] Resulting Agency [facility] Exam Ended: 04/25/24 13:50 Last Resulted: 04/28/24 10:09 Bone scan: Status: Final result Visible to patient: Yes (seen) Next appt: 05/08/2024 at 07:35 AM in Radiology (Mammo Room) Dx: Malignant neoplasm of left breast in ... 0 Result Notes Details Reading Physician Reading Date Result Priority Jay Loyola MD [phone] 200604/29/2024 Kalie Jorgensen MD [phone] 36504/29/2024 Narrative & Impression EXAMINATION: NM BONE [...] have questions please contact the health career coach that requested your imaging first. Electronically signed by: Jay Loyola MD, [facility] ([phone]), at 04/29/2024 11:33 AM Component 8 d ago WORKSTATION ID [id number] Resulting Agency [facility] Exam Ended: 04/29/24 10:53 [...] > 50% spend in discussion of above, [id number] time and coordination of care with the [...] and concerns. Rylie Patel MD Medical Oncology [facility] Airplane DispatcherStorage Architect, [facility] [employer] Office Cancer.[facility] documented in this encounter Plan of Treatment Upcoming Encounters Date Type Department Care Team (Late st Contact Info) Description 08/07/2024 9:00 AM EST Appointment Hematology [place] [address] 08/07/2024 10:00 AM EST Office Visit Hematology [place] [address] Rosalba Patel MD [facility] [place] [address] 08/07/2024 12:00 PM EST Appointment Hematology [place] [address] 08/21/2024 8:30 AM EST Appointment Hematology [place] [address] 08/21/2024 10:00 AM EST Office Visit Hematology [place] [address] Rosalba Patel MD [facility] [place] [address] 08/21/2024 11:30 AM EST Appointment Hematology [place] [address] documented as of this encounter Visit Diagnoses Diagnosis Malignant neoplasm of lower-outer quadrant of left breast of female, estrogen receptor positive documented in this encounter Care Teams Abrasive Sawyer Relationship Specialty Start Date End Date Nat Nicolas APRN [address] [place] [address] PCP - General Family Medicine 04/02/24 documented as of this encounter
--- OUTSIDE RECORDS SUMMARY | 2024-07-17 10:05 | XMS_ITS | Encounter Summary ---
[place] [address] Care Team Providers Care Hospice Entrance Attendant Name Role Phone Nat Nicolas APRN Primary Care Provider Encounter Details Date Type Department Care Team (Late st Contact Info) Description 05/12/2024 Telephone Hematology [place] [address] Caroline Bell, RN Social History Tobacco Use [...] H/A and options for relief Reinforced to patient/care-caddy master to call facility 12/02 with any new/worsening [...] AM EST Appointment Hematology [place] [address] 08/07/2024 10:00 AM EST Office Visit Hematology [place] [address] Rosalba Patel MD [facility] [place] [address] 08/07/2024 12:00 PM EST Appointment Hematology [place] [address] 08/21/2024 8:30 AM EST Appointment Hematology [place] [address] 08/21/2024 10:00 AM EST Office Visit Hematology [place] [address] Rosalba Patel MD [facility] [place] [address] 08/21/2024 11:30 AM EST Appointment Hematology [place] [address] documented as of this encounter Visit Diagnoses Not on filedocumented in this encounter Care Teams Hospice Entrance Attendant Relationship Specialty Start Date End Date Nat Nicolas APRN [address] [place] [address] PCP - General Family Medicine 04/02/24 documented as of this encounter
--- OUTSIDE RECORDS SUMMARY | 2024-07-17 10:05 | XMS_ITS | Encounter Summary ---
Author Organization [facility] [place] [address] Care Team Providers Care Urology Teacher Name Role Phone NicolasZacNatcarlos Malloy APRN Primary [...] AM EST Appointment [facility] [place] [address] 08/07/2024 10:00 AM EST Office Visit Hematology [place] [address] Rosalba Patel MD [facility] [place] [place] [address] 08/07/2024 12:00 PM EST Appointment Hematology [place] [address] 08/21/2024 8:30 AM EST Appointment Hematology [place] [address] 08/21/2024 10:00 AM EST Office Visit Hematology [place] [address] Rosalba Patel MD [facility] [place] [address] 08/21/2024 11:30 AM EST Appointment Hematology [place] [address] documented as of this encounter Visit Diagnoses Not on filedocumented in this encounter Care Teams Urology Teacher Relationship Specialty Start Date End Date Nat Nicolas APRN [address] [place] [address] PCP - General Family Medicine 04/02/24 documented as of this encounter
--- OUTSIDE RECORDS SUMMARY | 2024-07-17 10:05 | XMS_ITS | Encounter Summary ---
Author Organization [facility] [place] [address] Care Team Providers Care Van Driver Helper Name Role Phone Maria Isabel Nat Malloy APRN Primary Care Provider Encounter Details Date Type Department Care Team (Latest Contact Info) Description 05/08/2024 6:57 AM EDT - 05/08/2024 9:41 AM EDT Hospital Encounter [place] [address] Daily Amaral MD [facility] [address] Malignant neoplasm of left breast in female, [...] mouth daily. documented as of this encounter Plan of Treatment Upcoming Encounters Date Type Department Care Team (Late st Contact Info) Description 08/07/2024 9:00 AM EST Appointment Hematology [place] [address] 08/07/2024 10:00 AM EST Office Visit Hematology [place] [address] Rosalba Patel MD [facility] [place] [address] 08/07/2024 12:00 PM EST Appointment Hematology [place] [address] 08/21/2024 8:30 AM EST Appointment Hematology [place] [address] 08/21/2024 10:00 AM EST Office Visit Hematology [place] [address] Rosalba Patel MD [facility] [place] [address] 08/21/2024 11:30 AM EST Appointment Hematology [place] [address] documented as of this encounter Procedures Procedure [...] who have questions please contact the health personal care worker that requested your imaging first. ? --------ORIGINAL [...] who have questions please contact the health personal care worker that requested your imaging first. ? Impressions [...] who have questions please contact the health personal care worker that requested your imaging first. ? [facility] [place] [address] [place] [place] ??[address] Narrative 05/08/2024 1:09 PM EDT EXAMINATION: MAMMO [...] interpretation. PATHOLOGIC DIAGNOSIS: Pending Daily Amaral MD [facility] MAMMO ORDERAB LES * (ABNORMAL) Surgical Pathology (05/08/2024 9:24 AM EDT) Case Report Surgical Pathology Report ? Case: [id number] ? Authorizing Provider: ??Daily Amraal MD ?? Collected: ? 05/08/2024 0924 ? Ordering Location: ? Mammography at [facility] ?Received: ?05/08/2024 1240 ? Pathologist: ? Keyla Rodas, DO ? Specimen: ?Breast, Left, left axilla-lymph node ? 05/09/2024 11:[address] [facility] Final Diagnosis A. 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 05/09/2024 11:[address] [facility] Clinical Information A. Breast, Left, left axilla-lymph node Rule out malignancy Malignant neoplasm of left breast in female, estrogen receptor positive, unspecified site of breast [C50.912, Z17.0] 05/09/2024 11:[address] [facility] Gross Description A. Breast, Left, left axilla-lymph node. A - Labeled/Fixati ve: Left axilla lymph node, formalin. Quantity/Size: Three, ranging from 0.5 x 0.1 cm to 1.1 x 0.1 cm Tissue Description: [place]-white needle core biopsies. Sections/Proce ssing: Entirely submitted in 1 cassette labeled A1. Ischemic time: 2 minutes Total fixation time in formalin: 13 hours 34 minutes The ASCO/CAP guideline related to formalin fixation time has been met (6-72 hours). The ASCO/CAP guideline related to cold ischemic time has been met (<1 hour). sns 05/09/2024 11:[address] [facility] Result Note THIS RESULT REQUIRES PHYSICIAN/KINGS FOLLOW UP(A) 05/09/2024 11:[address] [facility] Tissue LEFT BREAST STRUCTURE / Unknown 05/08/2024 9:24 AM EDT 05/08/2024 12:40 PM EDT Daily Amaral MD PATHOLOGY/CYTOLOG Y ORDERABLES [facility] [place] [address] documented in this encounter Visit Diagnoses Diagnosis Malignant neoplasm of left breast in female, estrogen receptor positive, unspecified site of breast documented in this encounter Care Teams Van Driver Helper Relationship Specialty Start Date End Date Nat Nicolas, BRIDGE CRANE OPERATOR [address] [place] [address] PCP - General Family Medicine 04/02/24 documented as of this encounter
--- OUTSIDE RECORDS SUMMARY | 2024-07-17 10:05 | XMS_ITS | Encounter Summary ---
[place] [address] Care Team Providers Care Test Bore Helper Name Role Phone NicolasZacNatcarlos Malloy APRN Primary Care Provider Encounter Details Date Type Department Care Team (Late st Contact Info) Description 04/30/2024 Notes [place] [address] Harriett Ramirez PA [facility] [place] [address] Social History Tobacco Use Types Packs/Day Years [...] patient's medical record. [place]: [place] [facility] Anticoagulation/Antiplatelet: None listed Labs: Lab Results Component [...] Biopsy Left 04/02/[address] [facility] RAD MAMMOGRAPHY Social History and Habits: Social [...] Appointment Hematology [place] [address] 08/07/2024 10:00 AM EST Office Visit Hematology and Oncology at [place] [phone] Rosalba Patel MD [facility] [place] [address] 08/07/2024 12:00 PM EST Appointment Hematology [place] [address] 08/21/2024 8:30 AM EST Appointment Hematology [place] [address] 08/21/2024 10:00 AM EST Office Visit Hematology [place] [address] Rosalba Patel MD [facility] [place] [address] 08/21/2024 11:30 AM EST Appointment Hematology [place] [address] documented as of this encounter Visit Diagnoses Not on filedocumented in this encounter Care Teams Test Bore Helper Relationship Specialty Start Date End Date Nat Nicolas APRN [address] [place] [address] PCP - General Family Medicine 04/02/24 documented as of this encounter
--- OUTSIDE RECORDS SUMMARY | 2024-07-17 10:05 | XMS_ITS | Encounter Summary ---
Author Organization [facility] [place] [address] Care Team Providers Care Head Men'S Tennis Coach Name Role Phone NicolasZacNatcarlos Malloy APRN Primary [...] AM EST Appointment [facility] [address] 08/07/2024 10:00 AM EST Office Visit Hematology [place] [address] Rosalba Patel MD [facility] [place] [place] [address] 08/07/2024 12:00 PM EST Appointment Hematology [place] [address] 08/21/2024 8:30 AM EST Appointment Hematology [place] [address] 08/21/2024 10:00 AM EST Office Visit [place]ematology [place] [address] Rosalba Patel MD [facility] [place] [place] [address] 08/21/2024 11:30 AM EST Appointment Hematology [place] [address] documented as of this encounter Visit Diagnoses Not on filedocumented in this encounter Care Teams Head Men'S Tennis Coach Relationship Specialty Start Date End Date Nat Nicolas APRN [address] [place] [address] PCP - General Family Medicine 04/02/24 documented as of this encounter
--- OUTSIDE RECORDS SUMMARY | 2024-07-17 10:05 | XMS_ITS | Encounter Summary ---
Author [facility] [place] [address] Care Team Providers Care Machine Sorter Name Role Phone NicolasZacNatcarlos Malloy APRN Primary [...] EST Appointment Hematology [facility] [place] [address] 08/07/2024 10:00 AM EST Office Visit [place]ology [place] [address] Rosalba Patel MD [facility] [place] [address] 08/07/2024 12:00 PM EST Appointment [place] [address] 08/21/2024 8:30 AM EST Appointment [place] [address] 08/21/2024 10:00 AM EST Office Visit [place] [address] Rosalba Patel MD [facility] [place] [address] 08/21/2024 11:30 AM EST Appointment [place] [address] documented as of this encounter Visit Diagnoses Not on filedocumented in this encounter Care Teams Machine Sorter Relationship Specialty Start Date End Date Nat Nicolas APRN [address] [place] [address] PCP - General Family Medicine 04/02/24 documented as of this encounter
--- OUTSIDE RECORDS SUMMARY | 2024-07-17 10:05 | XMS_ITS | Encounter Summary ---
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, estrogen receptor positive Type 2 diabetes mellitus without complication, without long-term current use of insulin Rosalba Patel MD [facility] [place] [address] [address] Referral ID Status Reason Start Date Expiration Date V isits Requested Visits Authorized [id number] Authorized 04/29/2024 04/29/2025 99 107 Encounter Details Date Type Department Care Team (Latest Contact Info) Description 05/22/2024 8:32 AM EDT - 05/22/2024 11:59 PM EDT Hospital Encounter [place]ology [place] [address] Malignant neoplasm of lower-outer quadrant [...] Sig Dispensed Refills Start Date End Date prochlorperazine (Compazine) 10 mg tablet Take 1 [...] AM EST Appointment H[place] [address] 08/07/2024 10:00 AM EST Office Visit [place]ology [place] [address] Rosalba Patel MD [facility] [place] [address] 08/07/2024 12:00 PM EST Appointment H[place]ology [place] [address] 08/21/2024 8:30 AM EST Appointment [place]ology [place] [address] 08/21/2024 10:00 AM EST Office Visit [place]ology [place] [address] Rosalba Patel MD [facility] [place] [address] 08/21/2024 11:30 AM EST Appointment H[place]ology [place] [address] documented as of this encounter Results * Cancer antigen 15-3 (05/22/2024 9:01 AM EDT) [facility] [place] 15-3 21 <=25 unit/mL 05/22/2024 10:24 AM EDT [facility] Comment:This result was gene rated using a Tani Elías immunoassay. Results obtained from other methods or manufacturers cannot be used interchangeably with this method. Blood VENOUS BLOOD SPECIMEN / Unknown Mediport Line / Unknown 05/22/2024 9:01 AM EDT 05/22/2024 9:34 AM EDT Rosalba Patel MD CHEMISTRY ORDERABLES [facility] [place] [address] * (ABNORMAL) Comprehensive metabolic panel Non-fasting (05/22/2024 9:01 AM EDT) Pathologist [facility] Glucose 387(H) 65 - 199 mg/dL 05/22/2024 10:18 AM EDT [facility] Comment:Glucose Concentratio n >=200 mg/dL plus symptoms is consistent with Diabetes Mellitus. Blood Urea Nitrogen 17 8 - 18 mg/dL 05/22/2024 10:18 AM EDT [facility] Creatinine 0.59(L) 0.70 - 1.20 mg/dL 05/22/2024 10:18 AM [facility] Sodium 134(L) 135 - 145 mMol/L 05/22/2024 10:18 AM [facility] Potassium 4.0 3.5 - 5.0 mMol/L 05/22/2024 10:18 AM [facility] Chloride 95(L) 98 - 107 mMol/L [...] Foundation Fasting Status No 05/22/2024 10:18 AM EDT [facility] Blood VENOUS BLOOD SPECIMEN / Unknown Mediport Line / Unknown 05/22/2024 9:01 AM EDT 05/22/2024 9:34 AM EDT Rosalba Patel MD CHEMISTRY ORDERABLES [facility] [place] [address] * (ABNORMAL) CBC (with Diff) (05/22/2024 9:01 AM EDT) White Blood Cell 12.05(H) 4.00 - 9.50 x10(3)/mc L 05/22/2024 9:57 AM EDT [facility] Red Blood Cell 4.36 4.00 - 5.21 x10(6)/mc L 05/22/2024 9:57 AM EDT [facility] Hemoglobin 13.5 11.7 - 15.5 g/dL 05/22/2024 9:57 AM EDT [facility] Hematocrit 39.0 35.7 - 45.8 % 05/22/2024 9:57 AM EDT [facility] Mean Cell Volume 89.4 82.6 - 94.4 fL 05/22/2024 9:57 AM EDT [facility] Mean Cell Hemoglobin 31.0 27.1 - 32.0 pg 05/22/2024 9:57 AM EDT [facility] Mean Cell Hemoglobin Concentration 34.6 31.7 - 35.0 g/dL 05/22/2024 9:57 AM EDT [facility] Platelet 279 145 - 357 x10(3)/mc L 05/22/2024 9:57 AM [facility] Mean Platelet Volume 11.3 7.6 - 12.9 fL 05/22/2024 9:57 AM [facility] RDW Standard Deviation 37.2 37.0 - 46.0 fL 05/22/2024 9:57 AM [facility] RDW coefficient of variation 11.6 11.5 [...] - 0.10 x10(3)/mc L 05/22/2024 9:57 AM EDT [facility] Immature Gran % 3.1 % 9:57 AM EDT [facility] Immature Gran Absolute 0.37(H) 0.00 - 0.04 x10(3)/mc L 05/22/2024 9:57 AM EDT [facility] Blood VENOUS BLOOD SPECIMEN / Unknown Mediport Line / Unknown 05/22/2024 9:01 AM EDT 05/22/2024 9:34 AM EDT Rosalba Patel MD HEMATOLOGY ORDERABLE S Performing Organization Address City/State/[facility] Co de Phone Number [facility] [place] [address] documented in this encounter Visit Diagnoses Diagnosis [...] 2 minutes is a recommendation from the arbor press operator. Administer prior to chemotherapy., Routine Given 05/22/2024 [...] Arm documented in this encounter Care Teams Adult Nurse Practitioner Relationship Specialty Start Date End Date Nat Nicolas APRN [address] [place] [address] PCP - General Family Medicine 04/02/24 documented as of this encounter
--- OUTSIDE RECORDS SUMMARY | 2024-07-17 10:05 | XMS_ITS | Encounter Summary ---
[place] [address] Care Team Providers Care Psychiatric Assistant Name Role Phone NicolasZacNatcarlos Malloy APRN Primary Care Provider Encounter Details Date Type Department Care Team (Late Contact Info) Description 05/12/2024 [place] [phone] Didi Loredo, RN Social History Tobacco Use [...] Department Care Team (Late Contact Info) Description 08/07/2024 9:00 AM EST Appointment Hematology [place] [address] 08/07/2024 10:00 AM EST Office Visit [place]ematology [place] [address] Rosalba Patel MD [facility] [place] [address] 08/07/2024 12:00 PM EST Appointment Hematology [place] [address] 08/21/2024 8:30 AM EST Appointment Hematology [place] [address] 08/21/2024 10:00 AM EST Office Visit [place]ematology [place] [address] Rosalba Patel MD [facility] [place] [address] 08/21/2024 11:30 AM EST Appointment [place]ematology [place] [address] documented as of this encounter Visit Diagnoses Not on filedocumented in this encounter Care Teams Psychiatric Assistant Relationship Specialty Start Date End Date Nat Nicolas APRN [address] [place] [address] PCP - General Family Medicine 04/02/24 documented as of this encounter
--- OUTSIDE RECORDS SUMMARY | 2024-07-17 10:05 | XMS_ITS | Encounter Summary ---
Author Organization [facility] [place] [address] Care Team Providers Care Electronic Prepress Operator Name Role Phone Nat Nicolas APRN Primary Care Provider Encounter Details Date Type Department Care Team (Late st Contact Info) Description 05/16/2024 Notes [place] [address] Nat Hess MSW Social History Tobacco Use [...] twice today per her messages; first call center specialist answering phone call requests that I call back as Martha has stepped inside a store; second attempt no answer. LM with my contact information and stated purpose of call, encouraging call back at her convenience. I follow up with message to her [facility] account, containing information and resources for financial grants and hospital financial assistance application. We're able to connect by phone on 05/19. Martha reports she is receiving monthly assistance from [employer], and would like to utilize [facility] for recent heating oil delivery from [employer]. She gives me permission to contact the [employer] on her behalf ([phone]) to request invoice. Company staff agrees to send statement to me so I can arrange payment. Completed today: Financial resources Community Resource Patient Financial Assistance/Insurance Nat ???Fide?? LAUREL Hess Social Work, Breast and Gynecology Oncology [email or web address] documented in this encounter Plan of Treatment Upcoming Encounters Date Type Department Care Team (Late st Contact Info) Description 08/07/2024 9:00 AM EST Appointment Hematology [place] [address] 08/07/2024 10:00 AM EST Office Visit Hematology [place] [address] Rosalba Patel MD [facility] [place] [address] 08/07/2024 12:00 PM EST Appointment Hematology [place] [address] 08/21/2024 8:30 AM EST Appointment Hematology [place] [address] 08/21/2024 10:00 AM EST Office Visit Hematology [place] [address] Rosalba Patel MD [facility] [place] [address] 08/21/2024 11:30 AM EST Appointment Hematology [place] [address] documented as of this encounter Visit Diagnoses Not on filedocumented in this encounter Care Teams Electronic Prepress Operator Relationship Specialty Start Date End Date Nat Nicolas APRN [address] [place] [address] PCP - General Family Medicine 04/02/24 documented as of this encounter
--- OUTSIDE RECORDS SUMMARY | 2024-07-17 10:05 | XMS_ITS | Encounter Summary ---
[place] [address] Care Team Providers Care Residential Green Building Designer Name Role Phone Nat Nicolas APRN Primary Care Provider Reason for Referral * Diagnostic Test (Routine) - Closed Specialty Diagnoses / Procedures Referred By Contgiuliana t Referred To Contact Cardiology Diagnoses Malignant neoplasm of lower-outer quadrant of left breast of female, estrogen receptor positive Procedures Echocardiogram Transthoracic Dallin Falcon APRN [facility] [address] [facility] [place] [address] Referral ID Status Reason Start Date Expiration Date V isits Requested Visits Authorized [id number] Closed Specialty Service Requested 04/30/2024 04/30/2025 1 1 Reason for Visit * Diagnostic Test (Routine) - Closed Specialty Diagnoses / Procedures Referred By Contgiuliana t Referred To Contact Cardiology Diagnoses Malignant neoplasm of lower-outer quadrant of left breast of female, estrogen receptor positive Procedures Echocardiogram Transthoracic Dallin Falcon APRN [facility] [address] [facility] [place] [address] Referral ID Status Reason Start Date Expiration Date V isits Requested Visits Authorized [id number] Closed Specialty Service Requested 04/30/2024 04/30/2025 1 1 Encounter Details Date Type Department Care Team (Latest Contact Info) Description 05/05/2024 10:45 AM EDT - 05/05/2024 12:32 PM EDT Hospital Encounter Non-Invasive [place] [address] Dallin Falcon APRN [facility] [place] [address] Malignant neoplasm of lower-outer quadrant [...] AM EST Appointment Hematology [place] [address] 08/07/2024 10:00 AM EST Office Visit [place]ematology [place] [address] Rosalba Patel MD [facility] [place] [address] 08/07/2024 12:00 PM EST Appointment Hematology [place] [address] 08/21/2024 8:30 AM EST Appointment Hematology [place] [address] 08/21/2024 10:00 AM EST Office Visit [place]ematology [place] [address] Rosalba Paetl MD [facility] [place] [address] 08/21/2024 11:30 AM EST Appointment Hematology and Oncology at [facility] [place] [address] documented as of this encounter Procedures Procedure [...] AM EDT Narrative 05/05/2024 1:06 PM EDT [address] [place] [address] ? Echocardiogram Report Name: EARL RODRIGUEZ ?Study Date: 05/05/2024 11:22 AMBP: 127/82 mmHg : 1965 ? Height: 164 cm ? Account: [id number] Age: 59 yrs ? Weight: 82 kg Gender: Female ?BSA: 1.9 m2 Ordering Physician: DALLIN FALCON Referring Physician: DALLIN FALCON Performed By: NATALIIA Haque Reason For Study: Malignant neoplasm of lower-outer quadrant of left breast of female Exam Location: [facility]. Interpretation Summary 1. Mildly increased left ventricual [...] regurgitation. No prior study for comparison. Procedure Complete-[id number]. Satisfactory quality. There is normal sinus rhythm. [...] Procedure Note Chantel Villavicencio MD - 05/05/[address] [place] [address] Echocardiogram Report Name: EARL RODRIGUEZ Study Date: 411:22 AMBP: 127/82 mmHg : 1965 Height: 164 cm Account: [id number] Age: 59 yrs Weight: 82 kg Gender: Female BSA: 1.9 m2 Ordering Physician: DALLIN FALCON Referring Physician: DALLIN FALCON Performed By: NATALIIA Haque Reason For Study: Malignant neoplasm of lower-outer quadrant of leftbreast of female Exam Location: [facility]. Interpretation Summary 1. Mildly increased left ventricual wall thickness normal chamber sizeand systolic function. The left ventricular ejection fraction is 59% by 3D.Maximal longitudinal strain was seen in 3 chamber view -16.4%. Suboptimal speckletracking in other views. 2. Normal right ventriclar size and systolic function. The peak rightventricular systolic pressure is 22.7 mmHg. 3. Mild tricuspid regurgitation. No prior study for comparison. Procedure Complete-[id number]. Satisfactory quality. There is normal sinus rhythm. [...] positive documented in this encounter Care Teams Residential Green Building Designer Relationship Specialty Start Date End Date Nat Nicolas APRN [address] [place] [address] PCP - General Family Medicine 04/02/24 documented as of this encounter
--- OUTSIDE RECORDS SUMMARY | 2024-07-17 10:05 | XMS_ITS | Encounter Summary ---
Author Organization [facility] [place] [address] Care Team Providers Care Roofing Contractor Name Role Phone NicolasZacNatcarlos Malloy APRN Primary [...] AM EST Appointment [facility] [place] [address] 08/07/2024 10:00 AM EST Office Visit Hematology [place] [address] Rosalba Patel MD [facility] [place] [address] 08/07/2024 12:00 PM EST Appointment Hematology [place] [address] 08/21/2024 8:30 AM EST Appointment Hematology [place] [address] 08/21/2024 10:00 AM EST Office Visit Hematology [place] [address] Rosalba Patel MD [facility] [place] [address] 08/21/2024 11:30 AM EST Appointment Hematology [place] [address] documented as of this encounter Visit Diagnoses Not on filedocumented in this encounter Care Teams Roofing Contractor Relationship Specialty Start Date End Date Nat Nicolas APRN [address] [place] [address] PCP - General Family Medicine 04/02/24 documented as of this encounter
--- OUTSIDE RECORDS SUMMARY | 2024-07-17 10:05 | XMS_ITS | Encounter Summary ---
[place] [address] Care Team Providers Care Assistant Film Editor Name Role Phone Nat Nicolas APRN Primary Care Provider Reason for Referral * Diagnostic Test (Routine) - Closed Specialty Diagnoses / Procedures Referred By Contgiuliana t Referred To Contact Radiology Diagnoses Malignant neoplasm of lower-outer quadrant of left breast of female, estrogen receptor positive Procedures IR Mediport Placement Yamileth Nur TOLL RELIEF OPERATOR [facility] [place] [address] [place] [address] Referral ID Status Reason Start Date Expiration Date V isits Requested Visits Authorized [id number] Closed Specialty Service Requested 04/30/2024 10/29/2025 1 1 Reason for Visit * Diagnostic Test (Routine) - Closed Specialty Diagnoses / Procedures Referred By Contgiuliana t Referred To Contact Radiology Diagnoses Malignant neoplasm of lower-outer quadrant of left breast of female, estrogen receptor positive Procedures IR Mediport Placement Yamileth Nur APRN [facility] [address] [facility] [place] [address] Referral ID Status Reason Start Date Expiration Date V isits Requested Visits Authorized [id number] Closed Specialty Service Requested 04/30/2024 10/29/2025 1 1 Encounter Details Date Type Department Care Team (Latest Contact Info) Description 05/05/2024 12:33 PM EDT - 05/05/2024 11:59 PM EDT Hospital En[place] [address] Yamileth Nur APRN [facility] [place] [address] Malignant neoplasm of lower-outer quadrant [...] provided with an ID card stating the wood heel back liner and type of port you have. Please carry this with you in a safe place. Bandage: There is a sterile dressing over the port site consisting of small gauze with a clear dressing (Tegaderm or [id number] ). This dressing should be left in place for 48 hours. If the clear dressing becomes loose you should place tape over the edges to secure it in place. Note: If you have steri-strips beneath your dressing, simply allow them to fall off. Do not peel them off. There may be [place] (skin glue) also, allow this to flake [...] is during regular office hours, please call [phone]. If it is after regular office hours, or on weekends or holidays, please call [phone] and ask to speak to the Heating Equipment Installer consumer insights intern for Interventional Radiology. XXX You have received [...] of this encounter Progress Notes * Yessenia Fong RN - 05/05/2024 11:59 PM EDT Follow up call completed for Martha Rodriguez on 05/06/24 and a voicemail was left encouraging the patient to call the IR Department should they have any ongoing question or concerns. * Yessenia Fong RN - 05/05/2024 2:53 PM EDT [facility] NURSING DATABASE Name: Martha Rodriguez Date of : 1965 AGE: 59 y.o. Address: [address] [place] [address] (home) Mobile: Telephone Information: Referring Provider: Yamileth Nur REASON FOR VISIT: Order Questions Answers Where will study be performed? [facility] Radiology [120] To be scheduled Next available [...] Yes Allergies reviewed: Yes Source Note - IrvineHarriett PA - 04/30/2024 2:18 PM EDT Images [...] patient's medical record. IR History: None at [facility] Anticoagulation/Antiplatelet: None listed Labs: Lab Results Component [...] Us Biopsy Left 04/02/2024 Dorota Anderson MD [facility] RAD MAMMOGRAPHY Social History and Habits: [...] EST Appointment Hematology [place] [address] 08/07/2024 10:00 AM EST Office Visit Hematology [place] [address] Rosalba Patel MD [facility] [place] [address] 08/07/2024 12:00 PM EST Appointment Hematology [place] [address] 08/21/2024 8:30 AM EST Appointment Hematology [place] [address] 08/21/2024 10:00 AM EST Office Visit Hematology [place] [address] Rosalba Patel MD [facility] [place] [address] 08/21/2024 11:30 AM EST Appointment Hematology [place] [address] documented as of this encounter Procedures Procedure [...] venous port implant Indication: Breast cancer, durable fpc central venous access for chemotherapy Procedure summary: [...] the presence of an attending radiologist. Resident (flaring machine operator): Jossy Velasco MD Attending: Patricio Christy MD Not present for the procedure. 05/05/2024 Yamilethdennis Nur TOLL RELIEF OPERATOR IMG IR ORDERABLES * (ABNORMAL) POC, GLUCOSE (05/05/2024 1:05 PM EDT) [facility] Glucometer, POC 243(H) 65 - 199 mg/dL 05/05/2024 1:06 PM EDT [facility] Comment:Supplemental ranges: <140 mg/dL before meals <180 mg/dL all other times of the day. Blood CAPILLARY BLOOD / Unknown 05/05/2024 1:05 PM EDT 05/05/2024 1:06 PM EDT Yamileth Nur APRN POINT OF CARE TEST ORDERABLES [facility] [place] [address] documented in this encounter Visit Diagnoses Diagnosis [...] mg documented in this encounter Care Teams Assistant Film Editor Relationship Specialty Start Date End Date Nat Nicolas, TOLL RELIEF OPERATOR [address] [place] [address] PCP - General Family Medicine 04/02/24 documented as of this encounter
--- OUTSIDE RECORDS SUMMARY | 2024-07-17 10:05 | XMS_ITS | Encounter Summary ---
[place] [address] Care Team Providers Care Hand Painter Name Role Phone Nat Nicolas APRN Primary Care Provider Encounter Details Date Type Department Care Team (Latest Contact Info) Description 05/13/2024 10:30 AM EDT TH Visit (TeleHealth) [place]ology [place] [address] Tamela Coats, [facility] Malignant neoplasm of lower-outer [...] this encounter Progress Notes * Tamela Coats, [facility] - 05/13/2024 10:30 AM EDT Oncology Clinical [...] 60 mg/m2 IV once every 14 days [place] Antiemetic Regimen Aloxi (palonosetron) 0.25 mg IV [...] AM EST Appointment [place] [address] 08/07/2024 10:00 AM EST Office Visit [place] [address] Rosalba Patel MD [facility] [place] [address] 08/07/2024 12:00 PM EST Appointment H[place]ology [place] [address] 08/21/2024 8:30 AM EST Appointment [place] [address] 08/21/2024 10:00 AM EST Office Visit [place] [address] Rosalba Patel MD [facility] [place] [address] 08/21/2024 11:30 AM EST Appointment [place]ology [place] [address] documented as of this encounter Visit Diagnoses Diagnosis Malignant neoplasm of lower-outer quadrant of left breast of female, estrogen receptor positive documented in this encounter Care Teams Hand Painter Relationship Specialty Start Date End Date Nat Nicolas, GENE [address] [place] [address] PCP - General Family Medicine 04/02/24 documented as of this encounter
--- OUTSIDE RECORDS SUMMARY | 2024-07-17 10:05 | XMS_ITS | Encounter Summary ---
[place] [address] Care Team Providers Care Welt Maker Name Role Phone Nat Nicolas APRN Primary Care Provider Reason for Visit * Reason Comments Genetic Evaluation * Consultation (STAT) - Closed Specialty Diagnoses / Procedures Referred By Laurel garrett Referred To Contact Genetics Diagnoses Malignant neoplasm of lower-outer quadrant of left breast of female, estrogen receptor positive Rosalba Patel MD [facility] [address] [place] [address] [facility] [address] [place] [address] Referral ID Status Reason Start Date Expiration Date V isits Requested Visits Authorized [id number] Closed Consult, Test & Treat 04/30/2024 04/30/2025 1 1 Encounter Details Date Type Department Care Team (Late st Contact Info) Description 05/19/2024 1:00 PM EDT Office Visit [place]ology [place] [address] Lázaro Fong V [facility] Hematology/[place] [address] Malignant neoplasm of lower-outer quadrant [...] was recently diagnosed with with clinical StageIIA ([id number]) 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 She is following with Dr. Patel for her treatment with neoadjuvant ddAC-T. Martha had previously completed genetic testing in 2018 through [facility] which was negative for a known [...] Cancer Neg Hx Maternal ethnic background is Yi. Paternal ethnic background is , Croatian Egyptian. There is no known Ashkenazi Mosque ancestry. Genetic risk assessment Based on personal [...] at [email or web address]. Martha opted for testing with [facility]' CancerNext-Expanded +RNAinsight Panel, a next generation sequencing panel that simultaneously analyzes 71 genes, including BRCA1 and BRCA2, that contribute to increased risk for cancer. Martha was consented. Her blood sample will be drawn prior to her next infusion on 05/22/24 and sent to [facility]. Testing will take up to 3 weeks [...] AM EST Appointment Hematology [place] [address] 08/07/2024 10:00 AM EST Office Visit Hematology [place] [address] Rosalba Patel MD [facility] [address] [place]ICAL [place] [address] 08/07/2024 12:00 PM EST Appointment Hematology [place] [address] 08/21/2024 8:30 AM EST Appointment Hematology [place] [address] 08/21/2024 10:00 AM EST Office Visit Hematology [place] [address] Rosalba Patel MD [facility] [address] [place]ICAL [place] [address] 08/21/2024 11:30 AM EST Appointment Hematology [place] [phone] Scheduled Referrals Name Type Priority Associated Diagnoses [...] carrier documented in this encounter Care Teams Welt Maker Relationship Specialty Start Date End Date Nat Nicolas APRN [address] [place] [address] PCP - General Family Medicine 04/02/24 documented as of this encounter
--- OUTSIDE RECORDS SUMMARY | 2024-07-17 10:05 | XMS_ITS | Encounter Summary ---
[place] [address] Care Team Providers Care Production Mechanic Name Role Phone Nat Nicolas APRN Primary Care Provider Reason for Visit * Treatment/Therapy Plan Authorization (Routine) - Authorized Specialty Diagnoses / Procedures Referred By Contac t Referred To Contact Hematology and Oncology Diagnoses Malignant neoplasm of lower-outer quadrant of left breast of female, estrogen receptor positive Type 2 diabetes mellitus without complication, without long-term current use of insulin Rosalba Patel MD [facility] [place] [address] [address] Referral ID Status Reason Start Date Expiration Date V isits Requested Visits Authorized [id number] Authorized 04/29/2024 04/29/2025 99 107 Encounter Details Date Type Department Care Team (Latest Contact Info) Description 05/08/2024 9:42 AM EDT - 05/08/2024 11:59 PM EDT Hospital Encounter Hematology [place] [address] Malignant neoplasm of lower-outer quadrant [...] Birthdate: 1965 Admit date: 05/08/2024 Attending Physician: Lucy att. providers found Access visit. See MAR and/or flowsheet. documented in this encounter Plan of Treatment Upcoming Encounters Date Type Department Care Team (Late st Contact Info) Description 08/07/2024 9:00 AM EST Appointment Hematology and Oncology at [place] [phone] 08/07/2024 10:00 AM EST Office Visit Hematology and Oncology at [place] [phone] Rosalba Patel MD [facility] [place] [address] 08/07/2024 12:00 PM EST Appointment Hematology [place] [address] 08/21/2024 8:30 AM EST Appointment Hematology [place] [address] 08/21/2024 10:00 AM EST Office Visit Hematology [place] [address] Rosalba Patel MD [facility] [address] [place] [address] 08/21/2024 11:30 AM EST Appointment Hematology [place] [address] documented as of this encounter Procedures Procedure [...] 14 <=25 unit/mL 05/08/2024 11:41 AM EDT [facility] Comment:This result was gene rated using a Tani Elías immunoassay. Results obtained from other methods or manufacturers cannot be used interchangeably with this method. Blood VENOUS BLOOD SPECIMEN / Unknown Mediport Line / Unknown 05/08/2024 10:25 AM EDT 05/08/2024 10:38 AM EDT Rosalba Patel MD CHEMISTRY ORDERABLES [facility] [place] [address] * (ABNORMAL) Comprehensive metabolic panel Non-fasting (05/08/2024 10:25 AM EDT) Glucose 284(H) 65 - 199 mg/dL 05/08/2024 11:33 AM EDT [facility] Comment:Glucose Concentratio n >=200 mg/dL plus symptoms is consistent with Diabetes Mellitus. Blood Urea Nitrogen 19(H) 8 - 18 mg/dL 05/08/2024 11:33 AM EDT [facility] Creatinine 0.57(L) 0.70 - 1.20 mg/dL 05/08/2024 11:33 AM [facility] Sodium 140 135 - 145 mMol/L 05/08/2024 11:33 AM [facility] Potassium 4.4 3.5 - 5.0 mMol/L 05/08/2024 11:33 AM [facility] Chloride 101 98 - 107 mMol/L 05/08/2024 11:33 AM [facility] Carbon Dioxide 25 22 - 31 mMol/L 05/08/2024 11:33 AM [facility] Anion Gap 14 5 - 15 mMol/L 05/08/2024 11:33 AM [facility] Calcium 9.7 8.5 - 10.5 mg/dL 05/08/2024 11:33 AM [facility] Protein, Total 7.1 6.1 - 8.0 g/dL 05/08/2024 11:33 AM [facility] Albumin 4.6 3.2 - 5.2 g/dL 05/08/2024 11:33 AM [facility] Aspartate Aminotransferase 21 <=30 unit/L 05/08/2024 11:33 AM [facility] Alanine Aminotransferase 24 0 - 30 unit/L 05/08/2024 11:33 AM [facility] Alkaline Phosphatase 126(H) 35 - 105 unit/L 05/08/2024 11:33 AM [facility] Bilirubin, Total 0.3 <=1.3 mg/dL 05/08/2024 11:33 AM [facility] Est Glomerular Filtration Rate - Female 104 mL/min/1. 73 m?? 05/08/2024 11:33 AM [facility] Comment: This patient's estimated GFR was [...] Foundation Fasting Status No 05/08/2024 11:33 AM EDT [facility] Blood VENOUS BLOOD SPECIMEN / Unknown Mediport Line / Unknown 05/08/2024 10:25 AM EDT 05/08/2024 10:38 AM EDT Rosalba Patel MD CHEMISTRY ORDERABLES [facility] [place] [address] * CBC (with Diff) (05/08/2024 10:25 AM EDT) White Blood Cell 6.69 4.00 - 9.50 x10(3)/mcL 05/08/2024 10:53 AM [facility] Red Blood Cell 4.77 4.00 - 5.21 x10(6)/mcL 05/08/2024 10:53 AM [facility] Hemoglobin 14.8 11.7 - 15.5 g/dL 05/08/2024 10:53 AM [facility] Hematocrit 42.8 35.7 - 45.8 % 05/08/2024 10:53 AM [facility] Mean Cell Volume 89.7 82.6 - 94.4 fL 05/08/2024 10:53 AM [facility] Mean Cell Hemoglobin 31.0 27.1 - 32.0 pg 05/08/2024 10:53 AM [facility] Mean Cell Hemoglobin Concentration 34.6 31.7 - 35.0 g/dL 05/08/2024 10:53 AM [facility] Platelet 299 145 - 357 x10(3)/mcL 05/08/2024 10:53 AM [facility] Mean Platelet Volume 12.2 7.6 - 12.9 fL 05/08/2024 10:53 AM [facility] RDW Standard Deviation 38.8 37.0 - 46.0 fL 05/08/2024 10:53 AM [facility] RDW coefficient of variation 11.9 11.5 - 14.1 % 05/08/2024 10:53 AM [facility] NRBC% auto 0.0 % 05/08/2024 10:53 AM [facility] NRBC Absolute <0.01 <0.01 x10(3)/mcL 05/08/2024 10:53 AM [facility] Neutrophil % 54.0 % 05/08/2024 10:53 AM [facility] Neutrophil Absolute (ANC) - Automated 3.61 1.70 - 6.10 x10(3)/mcL 05/08/2024 10:53 AM [facility] Lymph % 34.5 % 05/08/2024 10:53 AM [facility] Lymph Absolute 2.31 0.90 - 3.20 x10(3)/mcL 05/08/2024 10:53 AM [facility] Monocyte % 6.3 % 05/08/2024 10:53 AM [facility] Monocyte Absolute 0.42 0.30 - 0.90 x10(3)/mcL 05/08/2024 10:53 AM [facility] Eos % 4.0 % 05/08/2024 10:53 AM [facility] Eos Absolute 0.27 0.00 - 0.40 x10(3)/mcL 05/08/2024 10:53 AM [facility] Basophil % 0.9 % 05/08/2024 10:53 AM [facility] Baso Absolute 0.06 0.00 - 0.10 x10(3)/mcL 05/08/2024 10:53 AM EDT [facility] Immature Gran % 0.3 % 10:53 AM EDT [facility] Immature Gran Absolute <0.04 0.00 - 0.04 x10(3)/mcL 05/08/2024 10:53 AM EDT [facility] Blood VENOUS BLOOD SPECIMEN / Unknown Mediport Line / Unknown 05/08/2024 10:25 AM EDT 05/08/2024 10:38 AM EDT Rosalba Patel MD HEMATOLOGY ORDERABLE S [facility] [place] [address] documented in this encounter Visit Diagnoses Diagnosis [...] Starting on Millie 05/08/24 at 0953, Until Sun05/09/24 at 0434, Line Care, Flush pertains to all indwelling lines. Flush per protocol found in the job aid using the link provided on this medication record. Refer to Intravenous (IV) Job Aid: Adult Flushing & Catheter Care (3145) job aid for additional information regarding guidelines and administration., Routine Given 05/08/2024 10:27 AM EDT 20 mLs documented in this encounter Care Teams Production Mechanic Relationship Specialty Start Date End Date Nat Nicolas APRN [address] [place] [address] PCP - General Family Medicine 04/02/24 documented as of this encounter
--- OUTSIDE RECORDS SUMMARY | 2024-07-17 10:05 | XMS_ITS | Encounter Summary ---
[place] [address] Care Team Providers Care Certified Novell Engineer Name Role Phone Nat Nicolas APRN Primary Care Provider Reason for Visit * Reason Onset Date Comments Error 05/06/2024 Encounter Details Date Type Department Care Team (Late st Contact Info) Description 05/06/2024 Telephone Hematology [place] [phone] Juani Sosa RN Error Social History Tobacco Use [...] AM EST Appointment Hematology [place] [address] 08/07/2024 10:00 AM EST Office Visit Hematology [place] [address] Rosalba Patel MD [facility] [place] [address] 08/07/2024 12:00 PM EST Appointment Hematology [place] [address] 08/21/2024 8:30 AM EST Appointment Hematology [place] [address] 08/21/2024 10:00 AM EST Office Visit [place]ematology [place] [address] Rosalba Patel MD [facility] [place] [address] 08/21/2024 11:30 AM EST Appointment Hematology [place] [address] documented as of this encounter Visit Diagnoses Not on filedocumented in this encounter Care Teams Certified Novell Engineer Relationship Specialty Start Date End Date Nat Nicolas APRN [address] [place] [address] PCP - General Family Medicine 04/02/24 documented as of this encounter
--- OUTSIDE RECORDS SUMMARY | 2024-07-17 10:05 | XMS_ITS | Encounter Summary ---
[place] [address] Care Team Providers Care Deportation Officer Name Role Phone Nat Nicolas APRN Primary [...] of insulin Rosalba Patel MD [facility] [place] [place] [address] [address] Referral ID Status Reason Start Date Expiration Date V isits Requested Visits Authorized [id number] Authorized 04/29/2024 04/29/2025 99 107 Encounter Details Date Type Department Care Team (Latest Contact Info) Description 05/22/2024 8:31 AM EDT Hospital Encounter Hematology [place] [address] Malignant neoplasm of lower-outer quadrant [...] AM EST Appointment Hemat[place] [address] 08/07/2024 10:00 AM EST Office Visit Hematology [place] [address] Rosalba Patel MD [facility] [place] [address] 08/07/2024 12:00 PM EST Appointment H[place] [address] 08/21/2024 8:30 AM EST Appointment Hematology [place] [address] 08/21/2024 10:00 AM EST Office Visit [place]ematology [place] [address] Rosalba Patel MD [facility] [place] [place] [address] 08/21/2024 11:30 AM EST Appointment [place]ology [place] [address] Scheduled Orders Name Type Priority Associated Diagnoses [...] 21 <=25 unit/mL 05/22/2024 10:24 AM EDT [facility] Comment:This result was gene rated using a Tani Elías immunoassay. Results obtained from other methods or manufacturers cannot be used interchangeably with this method. Blood VENOUS BLOOD SPECIMEN / Unknown Mediport Line / Unknown 05/22/2024 9:01 AM EDT 05/22/2024 9:34 AM EDT Rosalba Patel MD CHEMISTRY ORDERABLES [facility] [place] [address] * (ABNORMAL) Comprehensive metabolic panel Non-fasting (05/22/2024 9:01 AM EDT) Glucose 387(H) 65 - 199 mg/dL 05/22/2024 10:18 AM EDT [facility] Comment:Glucose Concentratio n >=200 mg/dL plus symptoms is consistent with Diabetes Mellitus. Blood Urea Nitrogen 17 8 - 18 mg/dL 05/22/2024 10:[address] [facility] Creatinine 0.59(L) 0.70 - 1.20 mg/dL 05/22/2024 10:[address] [facility] Sodium 134(L) 135 - 145 mMol/L 05/22/2024 10:[address] [facility] Potassium 4.0 3.5 - 5.0 mMol/L 05/22/2024 10:[address] [facility] Chloride 95(L) 98 - 107 mMol/L 05/22/2024 10:[address] [facility] Carbon Dioxide 26 22 - 31 mMol/L 05/22/2024 10:[address] [facility] Anion Gap 13 5 - 15 mMol/L 05/22/2024 10:[address] [facility] Calcium 9.4 8.5 - 10.5 mg/dL 05/22/2024 10:[address] [facility] Protein, Total 7.0 6.1 - 8.0 g/dL 05/22/2024 10:[address] [facility] Albumin 4.2 3.2 - 5.2 g/dL 05/22/2024 10:[address] [facility] Aspartate Aminotransferase 13 <=30 unit/L 05/22/2024 10:[address] [facility] Alanine Aminotransferase 57(H) 0 - 30 unit/L 05/22/2024 10:[address] [facility] Alkaline Phosphatase 226(H) 35 - 105 unit/L 05/22/2024 10:[address] [facility] Bilirubin, Total 0.2 <=1.3 mg/dL 05/22/2024 10:[address] [facility] Est Glomerular Filtration Rate - Female 103 mL/min/1. 73 m?? 05/22/2024 10:[address] [facility] Comment: This patient's estimated GFR [...] Fasting Status No 05/22/2024 10:18 AM EDT [facility] Blood VENOUS BLOOD SPECIMEN / Unknown Mediport Line / Unknown 05/22/2024 9:01 AM EDT 05/22/2024 9:34 AM EDT Rosalba Patel MD CHEMISTRY ORDERABLES [facility] [place] [address] * (ABNORMAL) CBC (with Diff) (05/22/2024 9:01 AM EDT) White Blood Cell 12.05(H) 4.00 - 9.50 x10(3)/mc L 05/22/2024 9:57 AM EDT [facility] Red Blood Cell 4.36 4.00 - 5.21 x10(6)/mc L 05/22/2024 9:[address] [facility] Hemoglobin 13.5 11.7 - 15.5 g/dL 05/22/2024 9:57 AM EDT [facility] Hematocrit 39.0 35.7 - 45.8 % 05/22/2024 9:[address] [facility] Mean Cell Volume 89.4 82.6 - 94.4 fL 05/22/2024 9:[facility] Mean Cell Hemoglobin 31.0 27.1 - 32.0 pg 05/22/2024 9:[address] [facility] Mean Cell Hemoglobin Concentration 34.6 31.7 - 35.0 g/dL 05/22/2024 9:[address] [facility] Platelet 279 145 - 357 x10(3)/mc L 05/22/2024 9:[address] [facility] Mean Platelet Volume 11.3 7.6 - 12.9 fL 05/22/2024 9:[address] [facility] RDW Standard Deviation 37.2 37.0 - 46.0 fL 05/22/2024 9:[address] [facility] RDW coefficient of variation 11.6 11.5 - 14.1 % 05/22/2024 9:[address] [facility] NRBC% auto 0.0 % 05/22/2024 9:[address] [facility] NRBC Absolute <0.01 <0.01 x10(3)/mc L 05/22/2024 9:[address] [facility] Neutrophil % 73.5 % 05/22/2024 9:[address] [facility] Neutrophil Absolute (ANC) - Automated 8.85(H) 1.70 - 6.10 x10(3)/mc L 05/22/2024 9:[address] [facility] Lymph % 16.5 % 05/22/2024 9:[address] [facility] Lymph Absolute 1.99 0.90 - 3.20 x10(3)/mc L 05/22/2024 9:[address] [facility] Monocyte % 4.8 % 05/22/2024 9:[address] [facility] Monocyte Absolute 0.58 0.30 - 0.90 x10(3)/mc L 05/22/2024 9:[address] [facility] Eos % 1.3 % 05/22/2024 9:[address] [facility] Eos Absolute 0.16 0.00 - 0.40 x10(3)/mc L 05/22/2024 9:[address] [facility] Basophil % 0.8 % 05/22/2024 9:57 AM EDT [facility] Baso Absolute 0.10 0.00 - 0.10 x10(3)/mc L 05/22/2024 9:57 AM EDT [facility] Immature Gran % 3.1 % 9:57 AM EDT [facility] Immature Gran Absolute 0.37(H) 0.00 - 0.04 x10(3)/mc L 05/22/2024 9:57 AM EDT [facility] Blood VENOUS BLOOD SPECIMEN / Unknown Mediport Line / Unknown 05/22/2024 9:01 AM EDT 05/22/2024 9:34 AM EDT Rosalba Patel MD HEMATOLOGY ORDERABLE S [facility] [place] [address] documented in this encounter Visit Diagnoses Diagnosis [...] Starting on Millie 05/22/24 at 0838, Until Sun05/23/24 at 0434, Line Care, Flush pertains to all indwelling lines. Flush per protocol found in the job aid using the link provided on this medication record. Refer to Intravenous (IV) Job Aid: Adult Flushing & Catheter Care (9400) job aid for additional information regarding guidelines and administration., Routine Given 05/22/2024 9:14 AM EDT 20 mLs documented in this encounter Care Teams Deportation Officer Relationship Specialty Start Date End Date Nat Nicolas APRN [address] [place] [address] PCP - General Family Medicine 04/02/24 documented as of this encounter
--- OUTSIDE RECORDS SUMMARY | 2024-07-17 10:05 | XMS_ITS | Encounter Summary ---
Author Organization [place] [address] Care Team Providers Care Marine Oil Terminal Superintendent Name Role Phone Nat Nicolas APRN Primary Care Provider Encounter Details Date Type Department Care Team (Late st Contact Info) Description 05/22/2024 [place] [address] Nat Hess MSW Social History Tobacco Use [...] Martha's paperwork to Dr. Rosalba Patel's clinical payroll secretary for processing. Completed today: Care Coordination Nat ???Fide?? LAUREL Hess Social Work, Breast and Gynecology Oncology [email or web address] documented in this encounter Plan of Treatment Upcoming Encounters Date Type Department Care Team (Late st Contact Info) Description 08/07/2024 9:00 AM EST Appointment Hematology and Oncology at [place] [phone] 08/07/2024 10:00 AM EST Office Visit Hematology and Oncology at [place] [phone] Rosalba Patel MD [facility] [place] [place] [address] 08/07/2024 12:00 PM EST Appointment Hematology [place] [address] 08/21/2024 8:30 AM EST Appointment Hematology [place] [address] 08/21/2024 10:00 AM EST Office Visit Hematology [place] [address] Rosalba Patel MD [facility] [place] [address] 08/21/2024 11:30 AM EST Appointment Hematology [place] [address] documented as of this encounter Visit Diagnoses Not on filedocumented in this encounter Care Teams [employer] Superintendent Relationship Specialty Start Date End Date Nat Nicolas, GENE [address] [place] [address] PCP - General Family Medicine 04/02/24 documented as of this encounter
--- OUTSIDE RECORDS SUMMARY | 2024-07-17 10:05 | XMS_ITS | Encounter Summary ---
[place] [address] Care Team Providers Care Ball Sorter Name Role Phone Nat Nicolas APRN Primary [...] [facility] [place] [place] [address] [address] Referral ID Status Reason Start Date Expiration Date V isits Requested Visits Authorized [id number] Authorized 04/29/2024 04/29/2025 99 107 Encounter Details Date Type Department Care Team (Latest Contact Info) Description 05/08/2024 9:42 AM EDT - 05/08/2024 11:59 PM EDT Hospital Encounter Hematology [place] [address] Malignant neoplasm of lower-outer quadrant [...] Care Everywhere. * Cancer: Nausea and Vomiting (Palestinian) * Chemotherapy: Managing Side Effects (Palestinian) documented in this encounter Medications at Time [...] BSA by Alessia Ott RN and a [facility] pharmacist. Chemotherapy administered per protocol. REACTIONS (DESCRIPTION, [...] AM EST Appointment Hematology and Oncology at [place] [phone] 08/07/2024 10:00 AM EST Office Visit Hematology and Oncology at [place] [phone] Rosalba Patel MD [facility] [place] [address] 08/07/2024 12:00 PM EST Appointment Hematology [place] [address] 08/21/2024 8:30 AM EST Appointment Hematology [place] [address] 08/21/2024 10:00 AM EST Office Visit Hematology [place] [address] Rosalba Patel MD [facility] [place] [address] 08/21/2024 11:30 AM EST Appointment Hematology [place] [address] documented as of this encounter Visit Diagnoses [...] 2 minutes is a recommendation from the medical examiner. Administer prior to chemotherapy., Routine Given 05/08/2024 [...] Arm documented in this encounter Care Teams Ball Sorter Relationship Specialty Start Date End Date Nta Nicolas APRN [address] [place] [address] PCP - General Family Medicine 04/02/24 documented as of this encounter
--- OUTSIDE RECORDS SUMMARY | 2024-07-17 10:05 | XMS_ITS | Encounter Summary ---
Author Organization [facility] [place] [address] Care Team Providers Care Die Cutter Operator Name Role Phone Nat Nicolas APRN Primary Care Provider Encounter Details Date Type Department Care Team (Late st Contact Info) Description 05/20/2024 Notes [place] [address] Nat Hess MSW Social History Tobacco Use [...] today: Financial resources Community Resource Nat ???Fide?? Jimena [facility] Social Work, Breast and Gynecology Oncology [email or web address] documented in this encounter Plan of Treatment Upcoming Encounters Date Type Department Care Team (Late st Contact Info) Description 08/07/2024 9:00 AM EST Appointment Hematology [place] [address] 08/07/2024 10:00 AM EST Office Visit Hematology [place] [address] Rosalba Patel MD [facility] [place] [address] 08/07/2024 12:00 PM EST Appointment Hematology [place] [address] 08/21/2024 8:30 AM EST Appointment Hematology [place] [address] 08/21/2024 10:00 AM EST Office Visit Hematology [place] [address] Rosalba Patel MD [facility] [place] [address] 08/21/2024 11:30 AM EST Appointment Hematology [place] [address] documented as of this encounter Visit Diagnoses Not on filedocumented in this encounter Care Teams Die Cutter Operator Relationship Specialty Start Date End Date Nat Nicolas, HEAD BAKER [address] [place] [address] PCP - General Family Medicine 04/02/24 documented as of this encounter
--- OUTSIDE RECORDS SUMMARY | 2024-07-17 10:05 | XMS_ITS | Encounter Summary ---
[place] [address] Care Team Providers Care Cutter Operator Asbestos Shingle Name Role Phone Nat Nicolas APRN Primary Care Provider Encounter Details Date Type Department Care Team (Late st Contact Info) Description 05/08/2024 1:00 PM EDT Clinical Support Hematology [place] [address] Lázaro Munoz, [facility] Malignant neoplasm of lower-outer quadrant [...] this encounter Progress Notes * Lázaro Munoz, [facility] - 05/08/2024 1:00 PM EDT Pharmacist New [...] home prescriptions for antinausea management, and will turkey picker their prescriptions at [facility] in [place], [place]. Martha Rodriguez was given the oncology pharmacist contact information should any issues arise when filling antinausea prescriptions, or if modifications to the antiemetic regimen are needed to better control CINV. [place] Antiemetics: Cycles 1 through 4 Aprepitant 130 [...] contact information for the breast oncology team ([phone]) and wasinstructed to call with any questions or concerns during normal business hours (Sunday-Sunday 8 am - 5 pm). The hospital cocoa mill operator phone number ([phone]) was provided to reach the on-call oncology [...] AM EST Appointment Hematology [place] [address] 08/07/2024 10:00 AM EST Office Visit Hematology [place] [address] Rosalba Patel MD [facility] [place] [address] 08/07/2024 12:00 PM EST Appointment Hematology [place] [address] 08/21/2024 8:30 AM EST Appointment Hematology [place] [address] 08/21/2024 10:00 AM EST Office Visit Hematology [place] [address] Rosalba Patel MD [facility] [place] [address] 08/21/2024 11:30 AM EST Appointment Hematology [place] [address] documented as of this encounter Visit Diagnoses Diagnosis Malignant neoplasm of lower-outer quadrant of left breast of female, estrogen receptor positive documented in this encounter Care Teams Cutter Operator Asbestos Shingle Relationship Specialty Start Date End Date Nta Nicolas, [facility] PHYSICIAN [address] [place] [address] PCP - General Family Medicine 04/02/24 documented as of this encounter
--- OUTSIDE RECORDS SUMMARY | 2024-07-17 10:05 | XMS_ITS | Encounter Summary ---
Author Organization [facility] [place] [address] Care Team Providers Care Hand Molder And Caster Name Role Phone Nat Nicolas APRN Primary Care Provider Encounter Details Date Type Department Care Team (Latest Contact Info) Description 05/08/2024 6:55 AM EDT Hospital Encounter [place] [address] Dorota Anderson MD [facility] [place] [address] Abnormal finding on breast imaging Discharge Disposition: [...] AM EST Appointment Hematology [place] [address] 08/07/2024 10:00 AM EST Office Visit Hematology [place] [address] Rosalba Patel MD [facility] [place] [address] 08/07/2024 12:00 PM EST Appointment Hematology [place] [address] 08/21/2024 8:30 AM EST Appointment Hematology [place] [address] 08/21/2024 10:00 AM EST Office Visit Hematology [place] [address] Rosalba Patel MD [facility] [place] [address] 08/21/2024 11:30 AM EST Appointment Hematology [place] [address] documented as of this encounter Procedures Procedure Name Priority Date/Time Associated Diagnosis Comments MAMMO US AXILLA LEFT Routine 05/08/2024 8:30 AM EDT Abnormal finding on breast imaging documented in this encounter Results * Mammo US Axilla Left (05/08/2024 8:30 AM EDT) WORKSTATION ID [id number] DH RAD Anatomical Region Laterality Modality [...] who have questions please contact the health careers counsellor that requested your imaging first. ? Narrative [...] breast documented in this encounter Care Teams Hand Molder And Caster Relationship Specialty Start Date End Date Nat Nicolas, GASTROENTEROLOGY PHYSICIAN [address] [place] [address] PCP - General Family Medicine 04/02/24 documented as of this encounter
--- OUTSIDE RECORDS SUMMARY | 2024-07-17 10:05 | XMS_ITS | Encounter Summary ---
[place] [address] Care Team Providers Care Board Hammer Operator Name Role Phone Nat Nicolas APRN Primary Care Provider Reason for Visit * Reason Comments Follow-up Encounter Details Date Type Department Care Team (Late st Contact Info) Description 05/22/2024 10:00 AM EDT Office Visit Hematology [place] [address] Yamileth Nur APRN [facility] [place] [address] Malignant neoplasm of lower-outer quadrant of left [...] from the original note were not included. [facility] BREAST MEDICAL ON[facility] Patient Name: Martha Rodriguez is a 59 y.o. female from [place], [place] (1 hour 10 min away). : 1965 Visit Date: 05/22/2024 PCP: Nat Nicolas APRN Breast surgical oncology: Lashay Amaral MD Radiation oncology: Referral pending Reason for visit: Scheduled f/up for C1D1 ddAC-T Summary: Martha Rodriguez is a 59 y.o. 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 She presents today for neoadjuvant ddAC-T. DIAGNOSIS: Breast cancer pathology & staging: Clinical stage: [id number] Stage IIA Pathological stage: pending surgery Pathology: Invasive lobular carcinoma, grade 2, LVI-. Surgical pathology pending. Joel status: 4 abnormal axillary nodes, level I and II, seen on MRI - axillary u/s and biopsy 05/08/2024 positive for metastatic carcinoma Receptor status: ER positive (>90%, strong) IL positive (>70% strong) HER2 negative by FISH, [...] grade 2, LVI- ER positive (>90%, strong) IL positive (>70% strong) HER2 negative by FISH, [...] invasive lobular carcinoma of the LEFT breast, ER+IL+Her2-, who presents today in scheduled follow-up for C1D1 ddAC-T. # Left breast cancer, ILC, ER positive, IL positive, HER2 negative - Risk scoring: [place] [...] Follow-up: RTC in 2 weeks for labs, MD/HERPETOLOGIST visit and C3D1 neoadj ddAC-T Interval History: [...] Family history of prostate cancer * Ashkenazi Caodaism heritage * Personal history of known genetic [...] IR Mediport Placement 05/05/2024 Debra Tamayo PA [facility] INTERVENTIONL RAD MAMMO US BIOPSY LEFT Left 04/02/2024 Mammo Us Biopsy Left 04/02/2024 Dorota Anderson MD [facility] RAD MAMMOGRAPHY MAMMO US BIOPSY LYMPH NODE LEFT Left 05/08/2024 Mammo US Biopsy Lymph Node Left 05/08/2024 Olive Garcia MD [facility] RAD MAMMOGRAPHY Family History: Family History [...] Units Case Report Surgical Pathology Report Case: [id number] Authorizing Provider: Dorota Anderson MD Collected: 04/02/2024 0912 Ordering Location: Mammography at [facility] Received: 04/02/2024 1254 Pathologist: Keyla Rodas DO Specimen: Breast, Left, LEFT BREAST US BX Final Diagnosis A. Left breast, core needle biopsy: - Invasive lobular carcinoma, intermediate grade (modified SBR score = 7), measuring at least 14 mm. - Lymphovascular invasion not identified. at 1151 Additional Studies Estrogen Receptor (ER) immunoreactivity: Positive Cancer cells with immunostaining: >90% Stain intensity: Strong Progesterone Receptor (IL) immunoreactivity: Positive Cancer cells with immunostainin% Stain [...] The assays were performed according to the client support manager's instructions using Anti-ER (SP1) and Anti-IL (16) antibodies. These tests were developed and their performance characteristics determined by [facility]. They may not have been [...] 0.2 cm-1.5 x 0.2 cm Tissue Description: [place]-white fibrofatty needle core biopsies. Sections/Processing: Entirely submitted in 1 cassette labeled A1. Ischemic time: 1 minute ajw Result Note THIS RESULT REQUIRES PHYSICIAN/KINGS FOLLOW UP Abnormal Resulting Agency [facility] Specimen Collected: 04/02/24 09:12 Last Resulted: [...] Reading Date Result Priority Dorota Anderson MD [phone] 2501 03/10/2024 Narrative & Impression INTERPRETATION OF OUTSIDE BREAST IMAGING I have been asked to consult on this patient by Dr. Nicolas because he/she believes a review of this study may change or alter the care of this patient. STUDIES FROM: [facility] CLINICAL HISTORY: ? bx; Sending Institution [facility]; Date of exam [id number]; I believe [...] cancers. Please note: The interpretation of the [facility] Breast Imaging Radiologist subspecialist may differ from the original radiologists interpretation. This is usually not due to a deficiency of the original interpreting radiologist, rather due to the greater skill level afforded by sub-specialization in the field and/or reasonable variations in interpretations. If you have a concern regarding the D- interpretation you may contact the [facility] Breast Spout Liner Office at . Thank you for letting us participate in the care of this patient. If you are a health care provider and have any questions regarding this report, please contact the number below. For patients who have questions please contact the health insurance healthcare representative that requested your imaging first. Electronically signed by: Dorota Anderson MD, [facility] ([phone]), at 03/10/2024 2:42 PM Component 1 mo ago WORKSTATION ID [id number] Resulting Agency [facility] Exam Ended: 03/10/24 07:30 Last [...] Reading Date Result Priority Olive Garcia MD [phone] 2533 04/08/2024 Armond Amezcua MD 04/08/2024 Narrative & Impression EXAMINATION: MRI BREAST WWO CONTRAST BILAT CLINICAL INDICATION: new breast cancer. History of left breast ILC ER/IL positive TECHNIQUE: Multiplanar sequences were obtained pre- [...] who have questions please contact the health insurance healthcare representative that requested your imaging first. Electronically signed by: KALPESH Valerio [facility] ([phone]), at 04/08/2024 4:02 PM Component 2 wk ago WORKSTATION ID [id number] Resulting Agency [facility] Exam Ended: 04/08/24 10:00 Last Resulted: 09/17/24 16:02 Status: Final result Visible to patient: Yes (not seen) Next appt: 04/25/2024 at 10:35 AM in Lab ([facility]) Dx: Malignant neoplasm of lower-outer cole... 0 Result Notes Details Reading Physician Reading Date Result Priority Olive Garcia MD [phone] 2533 04/10/2024 Armond Amezcua MD 04/10/2024 Narrative & Impression EXAMINATION: MRI ADDITIONAL VIEW - BREAST CLINICAL INDICATION: new breast cancer - repeat imaging. Left breast ILC, ER-positive IL positive and HER-2 negative TECHNIQUE: Multiplanar sequences were obtained pre- and post- Dotarem enhancement, to include SPGR weighted dynamic run-off and subtraction sequences obtained after the intravenous administration of 16 ccs of Dotarem. Computer algorithm analysis for lesion detection and kinetic contrast enhancement curve analysis was performed, using Double Encore software. COMPARISON STUDIES: Compared and/or correlated with [...] who have questions please contact the health insurance healthcare representative that requested your imaging first. Component 13 d ago WORKSTATION ID [id number] Resulting Agency [facility] Exam Ended: 04/09/24 14:20 [...] Reading Date Result Priority Anamaria Lopez MD [phone] 2954 04/28/2024 Narrative & Impression EXAMINATION: CT [...] who have questions please contact the health insurance healthcare representative that requested your imaging first. Electronically signed by: ANAMARIA LOPEZ MD, [facility] ([phone]), at 04/28/2024 10:09 AM Component 12 d ago WORKSTATION ID [id number] Resulting Agency [facility] Exam Ended: 04/25/24 13:50 Last Resulted: 04/28/24 10:09 Bone scan: Status: Final result Visible to patient: Yes (seen) Next appt: 05/08/2024 at 07:35 AM in Radiology (Mammo Room) Dx: Malignant neoplasm of left breast in ... 0 Result Notes Details Reading Physician Reading Date Result Priority Jay Loyola MD [phone] 200604/29/2024 Kalie Jorgensen MD [phone] [address]/29/2024 Narrative & Impression EXAMINATION: NM BONE [...] who have questions please contact the health insurance healthcare representative that requested your imaging first. Electronically signed by: Jay Loyola MD, [facility] ([phone]), at 04/29/2024 11:33 AM Component 8 d ago WORKSTATION ID [id number] Resulting Agency Rad Exam Ended: 04/29/24 10:53 [...] > 50% spend in discussion of above, [id number] time and coordination of care with the [...] with non urgent questions and concerns. Yamileth Nur DNP, PROFESSOR OF COMMUNICATION ARTS, NP- Women's Health Nurse Practitioner Breast Oncology Pager: [phone] [facility] documented in this encounter Plan of Treatment Upcoming Encounters Date Type Department Care Team (Late st Contact Info) Description 08/07/2024 9:00 AM EST Appointment Hematology [place] [address] 08/07/2024 10:00 AM EST Office Visit Hematology [place] [address] Rosalba Patel MD [facility] [place] [address] 08/07/2024 12:00 PM EST Appointment Hematology [place] [address] 08/21/2024 8:30 AM EST Appointment Hematology [place] [address] 08/21/2024 10:00 AM EST Office Visit [place]ematology [place] [address] Rosalba Patel MD [facility] [place] [address] 08/21/2024 11:30 AM EST Appointment Hematology [place] [address] documented as of this encounter Visit Diagnoses Diagnosis Malignant neoplasm of lower-outer quadrant of left breast of female, estrogen receptor positive H/O insulin dependent diabetes mellitus Personal history of other endocrine, metabolic, and immunity disorders Examination prior to chemotherapy Other specified pre-operative examination documented in this encounter Care Teams Board Hammer Operator Relationship Specialty Start Date End Date Nat Nicolas, PROFESSOR OF COMMUNICATION ARTS [address] [place] [address] PCP - General Family Medicine 04/02/24 documented as of this encounter
--- OUTSIDE RECORDS SUMMARY | 2024-07-17 10:05 | XMS_ITS | Encounter Summary ---
Author Organization [facility] [place] [address] Care Team Providers Care Squadron Worker Name Role Phone Nat Nicolas APRN Primary Care Provider Encounter Details Date Type Department Care Team (Latest Contact Info) Description 05/08/2024 6:56 AM EDT Hospital [place] [address] Dorota Anderson MD [facility] [place] [address] Abnormal finding on breast imaging Discharge Disposition: [...] AM EST Appointment Hematology [place] [address] 08/07/2024 10:00 AM EST Office Visit [place]ematology [place] [address] Rosalba Patel MD [facility] [place] [address] 08/07/2024 12:00 PM EST Appointment Hematology [place] [address] 08/21/2024 8:30 AM EST Appointment [place]ology [place] [address] 08/21/2024 10:00 AM EST Office Visit [place]ematology [place] [address] Rosalba Patel MD [facility] [place] [address] 08/21/2024 11:30 AM EST Appointment [place]ematology [place] [address] documented as of this encounter Procedures Procedure Name Priority Date/Time Associated Diagnosis Comments MAMMO BREAST US LIMITED RIGHT Routine 05/08/2024 8:15 AM EDT Abnormal finding on breast imaging documented in this encounter Results * US Breast Limited Right (05/08/2024 8:15 AM EDT) WORKSTATION ID [id number] DH RAD Anatomical Region Laterality Modality [...] who have questions please contact the health family day care worker that requested your imaging first. ? Narrative [...] breast documented in this encounter Care Teams Squadron Worker Relationship Specialty Start Date End Date Nat Nicolas APRN [address] [place] [address] PCP - General Family Medicine 04/02/24 documented as of this encounter
--- OUTSIDE RECORDS SUMMARY | 2024-07-17 10:05 | XMS_ITS | Encounter Summary ---
[place] [address] Care Team Providers Care Act English Tutor Name Role Phone Nat Nicolas APRN Primary Care Provider Encounter Details Date Type Department Care Team (Late st Contact Info) Description 05/06/2024 Telephone [place] [address] Chasidy Wright Social History Tobacco Use Types [...] EDTSummary: Molecular cancer testing review - CPT 58424 is a covered benefit NO PATIENT ACTION NEEDED_INFORMATIONAL ONLY Molecular cancer testing: CPT 38707 is a covered benefit and does not require prior authorization completed outpatient. E-mail from Niurka in [employer] ([id number]) requesting coverage review for CPT 43979 being done on the patient???s left breast tissue obtained on 04/02/24. Accession number is [id number]. Ordering provider is Dorota Anderson MD. Upon review, patient's primary insurance is [employer] policy # [id number]. No secondary insurance was found. Per call to [employer], CPT 49067 is a covered benefit with no authorization needed under calendar-year policy. Dx: code was not used in determination. Ref: [id number]. Will update Niurka. documented in this encounter Plan of Treatment Upcoming Encounters Date Type Department Care Team (Late st Contact Info) Description 08/07/2024 9:00 AM EST Appointment Hematology and Oncology at [place] [phone] 08/07/2024 10:00 AM EST Office Visit Hematology and Oncology at [place] [phone] Rosalba Patel MD [facility] [place] [address] 08/07/2024 12:00 PM EST Appointment Hematology [place] [address] 08/21/2024 8:30 AM EST Appointment Hematology [place] [address] 08/21/2024 10:00 AM EST Office Visit Hematology [place] [address] Rosalba Patel MD [facility] [place] [address] 08/21/2024 11:30 AM EST Appointment Hematology [place] [address] documented as of this encounter Visit Diagnoses Not on filedocumented in this encounter Care Teams Act English Tutor Relationship Specialty Start Date End Date Nat Nicolas APRN [address] [place] [address] PCP - General Family Medicine 04/02/24 documented as of this encounter
--- OUTSIDE RECORDS SUMMARY | 2024-07-17 10:05 | XMS_ITS | Encounter Summary ---
[place] [address] Care Team Providers Care Fire Protection Fabricator Name Role Phone Nat Nicolas APRN Primary Care Provider Encounter Details Date Type Department Care Team (Late st Contact Info) Description 05/15/2024 Orders Only [place]ematology [place] [address] Kiana Dickerson, [facility] [address] [facility] HEMATOLOGY [place] [address] Malignant neoplasm of lower-outer quadrant of left [...] AM EST Appointment [place] [address] 08/07/2024 10:00 AM EST Office Visit [place] [address] Rosalba Patel MD [facility] [place] [address] 08/07/2024 12:00 PM EST Appointment [place] [address] 08/21/2024 8:30 AM EST Appointment [place] [address] 08/21/2024 10:00 AM EST Office Visit [place] [address] Rosalba Patel MD [facility] [place] [address] 08/21/2024 11:30 AM EST Appointment [place] [address] Scheduled Orders Name Type Priority Associated Diagnoses Orde r Schedule Miscellaneous Lab request Lab Routine Malignant neoplasm of lower-outer quadrant of left breast of female, estrogen receptor positive Expected: 05/19/2024, Expires: 11/18/2024 documented as of this encounter Visit Diagnoses Diagnosis Malignant neoplasm of lower-outer quadrant of left breast of female, estrogen receptor positive documented in this encounter Care Teams Fire Protection Fabricator Relationship Specialty Start Date End Date Nat Nicolas APRN [address] [place] [address] PCP - General Family Medicine 04/02/24 documented as of this encounter
--- OUTSIDE RECORDS SUMMARY | 2024-07-17 10:05 | XMS_ITS | Encounter Summary ---
[place] [address] Care Team Providers Care Hole Digger Operator Name Role Phone Nat Nicolas APRN Primary Care Provider Encounter Details Date Type Department Care Team (Late st Contact Info) Description 05/07/2024 Telephone Hematology [place] [address] Caroline Bell, RN Social History Tobacco Use [...] AM EST Appointment Hematology [place] [address] 08/07/2024 10:00 AM EST Office Visit Hematology [place] [address] Rosalba Patel MD [facility] [place] [address] 08/07/2024 12:00 PM EST Appointment Hematology [place] [address] 08/21/2024 8:30 AM EST Appointment Hematology [place] [address] 08/21/2024 10:00 AM EST Office Visit Hematology [place] [address] Rosalba Patel MD [facility] [place] [address] 08/21/2024 11:30 AM EST Appointment Hematology [place] [address] documented as of this encounter Visit Diagnoses Not on filedocumented in this encounter Care Teams Hole Digger Operator Relationship Specialty Start Date End Date Nat Nicolas, TECHNICAL WRITER AND EDITOR [address] [place] [address] PCP - General Family Medicine 04/02/24 documented as of this encounter
--- OUTSIDE RECORDS SUMMARY | 2024-07-17 10:06 | XMS_ITS | Encounter Summary ---
[place] [address] Care Team Providers Care Airplane Pilot Commercial Name Role Phone Nat Nicolas APRN Primary Care Provider Reason for Visit * Reason Onset Date Comments Disability Paperwork 04/29/2024 Encounter Details Date Type Department Care Team (Late st Contact Info) Description 04/29/2024 Telephone Hematology [place] [address] Iris Lafleur Disability Paperwork Social History Tobacco [...] AM EST Appointment Hematology [place] [address] 08/07/2024 10:00 AM EST Office Visit Hematology [place] [address] Rosalba Patel MD [facility] [place] [address] 08/07/2024 12:00 PM EST Appointment Hematology [place] [address] 08/21/2024 8:30 AM EST Appointment Hematology [place] [address] 08/21/2024 10:00 AM EST Office Visit Hematology [place] [address] Rosalba Patel MD [facility] [place] [address] 08/21/2024 11:30 AM EST Appointment Hematology [place] [address] documented as of this encounter Visit Diagnoses Not on filedocumented in this encounter Care Teams Airplane Pilot Commercial Relationship Specialty Start Date End Date Nat Nicolas APRN [address] [place] [address] PCP - General Family Medicine 04/02/24 documented as of this encounter
--- OUTSIDE RECORDS SUMMARY | 2024-07-17 10:06 | XMS_ITS | Encounter Summary ---
[place] [address] Care Team Providers Care Road Oiling Truck Driver Name Role Phone Nat Nicolas APRN Primary Care Provider Encounter Details Date Type Department Care Team (Late st Contact Info) Description 04/04/2024 Notes Only Hematology [place] [address] Ebony Becerril Social History Tobacco Use Types [...] cancer New Breast Cancer Referral Martha Rodriguez [id number] Biopsy Location: Biopsy Date: 04.02.2024 Date of [...] AM EST Appointment Hematology [place] [address] 08/07/2024 10:00 AM EST Office Visit Hematology and Oncology at [place] [phone] Rosalba Patel MD [facility] [place] [address] 08/07/2024 12:00 PM EST Appointment Hematology [place] [address] 08/21/2024 8:30 AM EST Appointment Hematology [place] [address] 08/21/2024 10:00 AM EST Office Visit Hematology [place] [address] Rosalba Patel MD [facility] [place] [address] 08/21/2024 11:30 AM EST Appointment Hematology [place] [address] documented as of this encounter Visit Diagnoses Not on filedocumented in this encounter Care Teams Road Oiling Truck Driver Relationship Specialty Start Date End Date Nat Nicolas APRN [address] [place] [address] PCP - General Family Medicine 04/02/24 documented as of this encounter
--- OUTSIDE RECORDS SUMMARY | 2024-07-17 10:06 | XMS_ITS | Encounter Summary ---
Author Organization [facility] [place] [address] Care Team Providers Care Bacteriologist Industrial Name Role Phone NicolasZacNatcarlos Malloy APRN Primary [...] AM EST Appointment [facility] [place] [address] 08/07/2024 10:00 AM EST Office Visit [place] [address] Rosalba Patel MD [facility] [place] [address] 08/07/2024 12:00 PM EST Appointment [place] [address] 08/21/2024 8:30 AM EST Appointment [place] [address] 08/21/2024 10:00 AM EST Office Visit [place] [address] Rosalba Patel MD [facility] [place] [address] 08/21/2024 11:30 AM EST Appointment [place] [address] documented as of this encounter Visit Diagnoses Not on filedocumented in this encounter Care Teams Bacteriologist Industrial Relationship Specialty Start Date End Date Nat Nicolas APRN [address] [place] [address] PCP - General Family Medicine 04/02/24 documented as of this encounter
--- OUTSIDE RECORDS SUMMARY | 2024-07-17 10:06 | XMS_ITS | Encounter Summary ---
[place] [address] Care Team Providers Care Face Boss Name Role Phone Nat Nicolas APRN Primary Care Provider Reason for Referral * Diagnostic Test (Routine) - Closed Specialty Diagnoses / Procedures Referred By Laurel garrett Referred To Contact Radiology Diagnoses Malignant neoplasm of left breast in female, estrogen receptor positive, unspecified site of breast Procedures MRI Breast wwo Contrast Bilat Daily Amaral MD [facility] [place] [address] [place] [address] Referral ID Status Reason Start Date Expiration Date V isits Requested Visits Authorized [id number] Closed Specialty Service Requested 04/04/2024 10/02/2025 1 1 Encounter Details Date Type Department Care Team (Late st Contact Info) Description 04/04/2024 Orders Only [place] [address] Daily Amaral MD [facility] [place] [address] Malignant neoplasm of left breast [...] EST Appointment Hematology [place] [address] 08/07/2024 10:00 AM EST Office Visit Hematology [place] [address] Rosalba Patel MD [facility] [place] [address] 08/07/2024 12:00 PM EST Appointment Hematology [place] [address] 08/21/2024 8:30 AM EST Appointment Hematology [place] [address] 08/21/2024 10:00 AM EST Office Visit Hematology [place] [address] Rosalba Patel MD [facility] [place] [address] 08/21/2024 11:30 AM EST Appointment Hematology [place] [address] documented as of this encounter Results * (ABNORMAL) Comprehensive metabolic panel Non-fasting (04/25/2024 11:14 AM EDT) Glucose 385(H) 65 - 199 mg/dL 04/25/2024 11:57 AM EDT [facility] Comment:Glucose Concentratio n >=200 mg/dL plus symptoms is consistent with Diabetes Mellitus. Blood Urea Nitrogen 14 8 - 18 mg/dL 04/25/2024 11:57 AM [facility] Creatinine 0.59(L) 0.70 - 1.20 mg/dL 04/25/2024 11:57 AM [facility] Sodium 138 135 - 145 mMol/L 04/25/2024 11:57 AM [facility] Potassium 4.2 3.5 - 5.0 mMol/L 04/25/2024 11:57 AM [facility] Chloride 101 98 - 107 mMol/L 04/25/2024 11:57 AM [facility] Carbon Dioxide 24 22 - 31 mMol/L 04/25/2024 11:57 AM [facility] Anion Gap 13 5 - 15 mMol/L 04/25/2024 11:57 AM [facility] Calcium 9.9 8.5 - 10.5 mg/dL 04/25/2024 11:57 AM [facility] Protein, Total 7.0 6.1 - 8.0 g/dL 04/25/2024 11:57 AM [facility] Albumin 4.4 3.2 - 5.2 g/dL 04/25/2024 11:57 AM [facility] Aspartate Aminotransferase 20 <=30 unit/L 04/25/2024 11:57 AM [facility] Alanine Aminotransferase 29 0 - 30 unit/L 04/25/2024 11:57 AM [facility] Alkaline Phosphatase 141(H) 35 - 105 unit/L 04/25/2024 11:57 AM [facility] Bilirubin, Total <0.2 <=1.3 mg/dL 04/25/2024 11:57 AM [facility] Est Glomerular Filtration Rate - Female 103 mL/min/1. 73 m?? 04/25/2024 11:57 AM [facility] [...] Fasting Status No 04/25/2024 11:57 AM EDT [facility] Blood VENOUS BLOOD SPECIMEN / Unknown Venipuncture / Unknown 04/25/2024 11:14 AM EDT 04/25/2024 11:14 AM EDT Daily Amaral MD CHEMISTRY ORDERAB LES [facility] [place] [address] * CBC (with Diff) (04/25/2024 11:14 AM EDT) White Blood Cell 9.09 4.00 - 9.50 x10(3)/mcL 04/25/2024 11:[facility] Red Blood Cell 4.96 4.00 - 5.21 x10(6)/mcL 04/25/2024 11:32 AM [facility] Hemoglobin 15.2 11.7 - 15.5 g/dL 04/25/2024 11:32 AM [facility] Hematocrit 43.7 35.7 - 45.8 % 04/25/2024 11:32 AM [facility] Mean Cell Volume 88.1 82.6 - 94.4 fL 04/25/2024 11:32 AM [facility] Mean Cell Hemoglobin 30.6 27.1 - 32.0 pg 04/25/2024 11:32 AM [facility] Mean Cell Hemoglobin Concentration 34.8 31.7 - 35.0 g/dL 04/25/2024 11:32 AM [facility] Platelet 317 145 - 357 x10(3)/mcL 04/25/2024 11:32 AM [facility] Mean Platelet Volume 11.5 7.6 - 12.9 fL 04/25/2024 11:32 AM [facility] RDW Standard Deviation 38.4 37.0 - 46.0 fL 04/25/2024 11:32 AM [facility] RDW coefficient of variation 12.0 11.5 - 14.1 % 04/25/2024 11:32 AM [facility] NRBC% auto 0.0 % 04/25/2024 11:32 AM [facility] NRBC Absolute <0.01 <0.01 x10(3)/mcL 04/25/2024 11:32 AM [facility] Neutrophil % 57.8 % 04/25/2024 11:32 AM [facility] Neutrophil Absolute (ANC) - Automated 5.24 1.70 - 6.10 x10(3)/mcL 04/25/2024 11:32 AM [facility] Lymph % 30.1 % 04/25/2024 11:32 AM [facility] Lymph Absolute 2.74 0.90 - 3.20 x10(3)/mcL 04/25/2024 11:32 AM [facility] Monocyte % 7.0 % 04/25/2024 11:32 AM [facility] Monocyte Absolute 0.64 0.30 - 0.90 x10(3)/mcL 04/25/2024 11:32 AM [facility] Eos % 4.3 % 04/25/2024 11:32 AM [facility] Eos Absolute 0.39 0.00 - 0.40 x10(3)/mcL 04/25/2024 11:32 AM [facility] Basophil % 0.4 % 04/25/2024 11:32 AM EDT [facility] Baso Absolute 0.04 0.00 - 0.10 x10(3)/mcL 04/25/2024 11:32 AM EDT [facility] Immature Gran % 0.4 % 11:32 AM EDT [facility] Immature Gran Absolute 0.04 0.00 - 0.04 x10(3)/mcL 04/25/2024 11:32 AM EDT [facility] Blood VENOUS BLOOD SPECIMEN / Unknown Venipuncture / Unknown 04/25/2024 11:14 AM EDT 04/25/2024 11:14 AM EDT Daily Amaral MD HEMATOLOGY ORDERA BLES Performing Organization Address City/State/[facility] Co de Phone Number [facility] [place] [address] * MRI Breast wwo Contrast Bilat (04/08/2024 10:00 AM EDT) WORKSTATION ID DNA [id number] DH RAD Anatomical Region Laterality Modality [...] interpretation and agree with the findings, Olive Gracia at 04/08/2024 4:02 PM Thank you for letting us participate in the care of this patient. ??If you are a health care provider and have any questions regarding this report, please contact the number below. ??For patients who have questions please contact the health health care administrator that requested your imaging first. ? Electronically signed by: Olive Garcia [facility] ([phone]), at 04/08/2024 4:02 PM Narrative 04/08/2024 4:02 PM EDT EXAMINATION: MRI BREAST WWO CONTRAST BILAT CLINICAL INDICATION: new breast cancer. History of left breast ILC ER/WI positive TECHNIQUE: Multiplanar sequences were obtained pre- [...] breast documented in this encounter Care Teams Face Boss Relationship Specialty Start Date End Date Nat Nicolas, CLOTH TESTER QUALITY [address] [place] [address] PCP - General Family Medicine 04/02/24 documented as of this encounter
--- OUTSIDE RECORDS SUMMARY | 2024-07-17 10:06 | XMS_ITS | Encounter Summary ---
[place] [address] Care Team Providers Care Metalworking Instructor Name Role Phone NicolasZacNatcarlos Malloy APRN Primary Care Provider Encounter Details Date Type Department Care Team (Late Contact Info) Description 04/16/2024 Telephone [place] [address] Didi Loredo, RN Social History Tobacco Use [...] AM EST Appointment Hematology [place] [address] 08/07/2024 10:00 AM EST Office Visit Hematology [place] [address] Rosalba Patel MD [facility] [place] [address] 08/07/2024 12:00 PM EST Appointment Hematology [place] [address] 08/21/2024 8:30 AM EST Appointment Hematology [place] [address] 08/21/2024 10:00 AM EST Office Visit Hematology [place] [address] Rosalba Patel MD [facility] [place] [address] 08/21/2024 11:30 AM EST Appointment Hematology [place] [address] documented as of this encounter Visit Diagnoses Not on filedocumented in this encounter Care Teams Metalworking Instructor Relationship Specialty Start Date End Date Nat Nicolas APRN [address] [place] [address] PCP - General Family Medicine 04/02/24 documented as of this encounter
--- OUTSIDE RECORDS SUMMARY | 2024-07-17 10:06 | XMS_ITS | Encounter Summary ---
Author Organization [facility] [place] [address] Care Team Providers Care Mirror Maker Name Role Phone NicolasZacNatcarlos Malloy APRN Primary [...] EST Appointment [facility] [place] [address] 08/07/2024 10:00 AM EST Office Visit Hematology [place] [address] Rosalba Patel MD [facility] [place] [address] 08/07/2024 12:00 PM EST Appointment Hematology [place] [address] 08/21/2024 8:30 AM EST Appointment Hematology [place] [address] 08/21/2024 10:00 AM EST Office Visit Hematology [place] [address] Rosalba Patel MD [facility] [place] [address] 08/21/2024 11:30 AM EST Appointment Hematology [place] [address] documented as of this encounter Visit Diagnoses Not on filedocumented in this encounter Care Teams Mirror Maker Relationship Specialty Start Date End Date Nat Nicolas APRN [address] [place] [address] PCP - General Family Medicine 04/02/24 documented as of this encounter
--- OUTSIDE RECORDS SUMMARY | 2024-07-17 10:06 | XMS_ITS | Encounter Summary ---
Author Organization [facility] [place] [address] Care Team Providers Care Harness Maker Name Role Phone Nat Nicolas APRN Primary Care Provider Encounter Details Date Type Department Care Team (Late st Contact Info) Description 04/09/2024 [place] [address] Nat Hess, CHRISTIANO Social History Tobacco Use [...] with Martha to introduce myself as social organization professor and review this role within CBP team [...] as needed. She signs Designation of Personal Stock Lifter forms for Patel and Colleen, and per their request I send message to Patel at [email or web address] and Colleen at [email or web address] so they can keep in touch as needed. I LM for Martha on 04/14 to see how she is doing after MRI results, encouraging call back at her convenience. Re-assess at future follow up: Review need for financial assistance, need/interest resources for mental health Completed today: Brief assessment Care Coordination Financial resources Nat ???Fide?? LAUREL Hess Social Work, Breast and Gynecology Oncology [email or web address] documented in this encounter Plan of Treatment Upcoming Encounters Date Type Department Care Team (Late st Contact Info) Description 08/07/2024 9:00 AM EST Appointment Hematology [place] [address] 08/07/2024 10:00 AM EST Office Visit Hematology [place] [address] Rosalba Patel MD [facility] [place] [address] 08/07/2024 12:00 PM EST Appointment Hematology [place] [address] 08/21/2024 8:30 AM EST Appointment Hematology [place] [address] 08/21/2024 10:00 AM EST Office Visit Hematology [place] [address] Rosalba Patel MD [facility] [place] [address] 08/21/2024 11:30 AM EST Appointment Hematology [place] [address] documented as of this encounter Visit Diagnoses Not on filedocumented in this encounter Care Teams Harness Maker Relationship Specialty Start Date End Date aNt Nicolas APRN [address] [place] [address] PCP - General Family Medicine 04/02/24 documented as of this encounter
--- OUTSIDE RECORDS SUMMARY | 2024-07-17 10:06 | XMS_ITS | Encounter Summary ---
Author Organization [facility] [place] [address] Care Team Providers Care Binding Stitcher Name Role Phone Nat Nicolas APRN Primary Care Provider Encounter Details Date Type Department Care Team (Late st Contact Info) Description 04/16/2024 [place] [address] Nat Hess, CHRISTIANO Social History Tobacco Use [...] Martha's [place] paperwork to Dr. Patel's clinical department secretary for processing. Messagesent to Martha via her [facility] account with department secretary contact information in case she has any questions. Completed today: Care Coordination Nat ???Fide?? LAUREL Hess Social Work, Breast and Gynecology Oncology [email or web address] documented in this encounter Plan of Treatment Upcoming Encounters Date Type Department Care Team (Late st Contact Info) Description 08/07/2024 9:00 AM EST Appointment H[place]ology [place] [address] 08/07/2024 10:00 AM EST Office Visit Hematology and Oncology at [place] [phone] Rosalba Patel MD [facility] [place] [address] 08/07/2024 12:00 PM EST Appointment Hematology [place] [address] 08/21/2024 8:30 AM EST Appointment Hematology [place] [address] 08/21/2024 10:00 AM EST Office Visit Hematology [place] [address] Rosalba Patel MD [facility] [place] [address] 08/21/2024 11:30 AM EST Appointment Hematology [place] [address] documented as of this encounter Visit Diagnoses Not on filedocumented in this encounter Care Teams Binding Stitcher Relationship Specialty Start Date End Date Nat Nicolas, LOG CHAIN FEEDER [address] [place] [address] PCP - General Family Medicine 04/02/24 documented as of this encounter
--- OUTSIDE RECORDS SUMMARY | 2024-07-17 10:06 | XMS_ITS | Encounter Summary ---
[place] [address] Care Team Providers Care Agricultural Crop Farm Manager Name Role Phone Nat Nicolas APRN Primary Care Provider Reason for Referral * Diagnostic Test (Routine) - Closed Specialty Diagnoses / Procedures Referred By Laurel garrett Referred To Contact Radiology Diagnoses Malignant neoplasm of lower-outer quadrant of left breast of female, estrogen receptor positive Procedures MRI Additional Views - Breast Armond Amezcua MD [facility] [place] [address] [facility] [place] [address] Referral ID Status Reason Start Date Expiration Date V isits Requested Visits Authorized [id number] Closed Specialty Service Requested 04/08/2024 10/06/2025 1 1 Encounter Details Date Type Department Care Team (Late st Contact Info) Description 04/08/2024 [place] [address] Armond Amezcua MD [facility] [place] [address] Malignant neoplasm of lower-outer quadrant [...] Appointment Hematology and Oncology at [place] [phone] 08/07/2024 10:00 AM EST Office Visit Hematology and Oncology at [place] [phone] Rosalba Patel MD [facility] [place] [address] 08/07/2024 12:00 PM EST Appointment [place] [address] 08/21/2024 8:30 AM EST Appointment [place] [address] 08/21/2024 10:00 AM EST Office Visit [place] [address] Rosalba Patel MD [facility] [place] [address] 08/21/2024 11:30 AM EST Appointment [place] [address] documented as of this encounter Results * [...] have questions please contact the health health and social care teacher that requested your imaging first. ? Electronically signed by: Olive Garcia [facility] ([phone]), at 04/10/2024 12:28 PM Narrative 04/10/2024 12:28 PM EDT EXAMINATION: MRI ADDITIONAL VIEW - BREAST CLINICAL INDICATION: new breast cancer - repeat imaging. Left breast ILC, ER-positive GA positive and HER-2 negative TECHNIQUE: Multiplanar sequences were obtained pre- and post- Dotarem enhancement, to include SPGR weighted dynamic run-off and subtraction sequences obtained after the intravenous administration of 16 ccs of Dotarem. Computer algorithm analysis for lesion detection and kinetic contrast enhancement curve analysis was performed, using [email or web address] software. COMPARISON STUDIES: Compared and/or correlated with [...] cancer - repeat imaging. Left breastILC, ER-positive GA positive and HER-2 negative TECHNIQUE: Multiplanar sequences were obtained pre- and post- Dotarem enhancement,to include SPGR weighted dynamic run-off and subtraction sequences obtainedafter the intravenous administration of 16 ccs of Dotarem. Computer algorithmanalysis for lesion detection and kinetic contrast enhancement curve analysis was performed, using [email or web address] software. COMPARISON STUDIES: Compared and/or correlated with [...] patients who have questions please contactthe health health and social care teacher that requested your imaging first. Electronically signed by: Olive Garcia [facility]([phone]), at 04/10/2024 12:28 PM Armond Amezcua MD IMG MRI ORDERABLES documented in this encounter Visit Diagnoses Diagnosis Malignant neoplasm of lower-outer quadrant of left breast of female, estrogen receptor positive Malignant neoplasm of lower-outer quadrant of left breast of female, estrogen receptor positive documented in this encounter Care Teams Agricultural Crop Farm Manager Relationship Specialty Start Date End Date Nat Nicolas, [address] [place] [address] PCP - General Family Medicine 04/02/24 documented as of this encounter
--- OUTSIDE RECORDS SUMMARY | 2024-07-17 10:06 | XMS_ITS | Encounter Summary ---
[place] [address] Care Team Providers Care Planogrammer Name Role Phone NicolasZacNatcarlos Malloy APRN Primary Care Provider Encounter Details Date Type Department Care Team (Late Contact Info) Description 04/08/2024 [place] [phone] Didi Loredo, RN Social History Tobacco Use [...] AM EST Appointment [place]ology [place] [address] 08/07/2024 10:00 AM EST Office Visit [place]ematology [place] [address] Rosalba Patel MD [facility] [place] [address] 08/07/2024 12:00 PM EST Appointment Hematology [place] [address] 08/21/2024 8:30 AM EST Appointment Hematology [place] [address] 08/21/2024 10:00 AM EST Office Visit [place]ematology [place] [address] Rosalba Patel MD [facility] [place] [address] 08/21/2024 11:30 AM EST Appointment [place]ology [place] [address] documented as of this encounter Visit Diagnoses Not on filedocumented in this encounter Care Teams Planogrammer Relationship Specialty Start Date End Date Nat Nicolas APRN [address] [place] [address] PCP - General Family Medicine 04/02/24 documented as of this encounter
--- OUTSIDE RECORDS SUMMARY | 2024-07-17 10:06 | XMS_ITS | Encounter Summary ---
Author Organization [facility] [place] [address] Care Team Providers Care Gear Inspector Name Role Phone Carl Garvey DNP Primary Care Provider [phone] Encounter Details Date Type Department Care Team (Late Contact Info) Description 03/11/2024 [place] [phone] Didi Loredo, RN Social History Tobacco Use [...] AM EST Appointment Hematology [place] [address] 08/07/2024 10:00 AM EST Office Visit Hematology [place] [phone] Rosalba Patel MD [facility] [place] [address] 08/07/2024 12:00 PM EST Appointment Hematology [place] [address] 08/21/2024 8:30 AM EST Appointment Hematology [place] [address] 08/21/2024 10:00 AM EST Office Visit [place]ematology [place] [address] Rosalba Patel MD [facility] [place] [address] 08/21/2024 11:30 AM EST Appointment Hematology [place] [address] documented as of this encounter Visit Diagnoses Not on filedocumented in this encounter Care Teams Gear Inspector Relationship Specialty Start Date End Date Carl Garvey DNP [facility] [address] [place] [address] PCP - General Family Medicine 05/03/20 04/01/24 documented as of this encounter
--- OUTSIDE RECORDS SUMMARY | 2024-07-17 10:06 | XMS_ITS | Encounter Summary ---
[place] [address] Care Team Providers Care Manufacturing Supervisor 2Nd Shift Name Role Phone Nat Nicolas APRN Primary Care Provider Encounter Details Date Type Department Care Team (Late st Contact Info) Description 04/29/2024 Orders Only Hematology [place] [address] Rosalba Patel MD [facility] [place] [address] Social History Tobacco Use Types Packs/Day Years [...] AM EST Appointment Hematology [place] [address] 08/07/2024 10:00 AM EST Office Visit Hematology [place] [address] Rosalba Patel MD [facility] [place] [address] 08/07/2024 12:00 PM EST Appointment Hematology [place] [address] 08/21/2024 8:30 AM EST Appointment Hematology [place] [address] 08/21/2024 10:00 AM EST Office Visit Hematology [place] [address] Rosalba Patel MD [facility] [place] [address] 08/21/2024 11:30 AM EST Appointment Hematology [place] [address] documented as of this encounter Visit Diagnoses Not on filedocumented in this encounter Care Teams Manufacturing Supervisor 2Nd Shift Relationship Specialty Start Date End Date Nat Nicolas, ACID ADJUSTER [address] [place] [address] PCP - General Family Medicine 04/02/24 documented as of this encounter
--- OUTSIDE RECORDS SUMMARY | 2024-07-17 10:06 | XMS_ITS | Encounter Summary ---
[place] [address] Care Team Providers Care Communications Equipment Installer Name Role Phone Nat Nicolas APRN Primary Care Provider Reason for Visit * Reason Comments Advice Only * Consultation (Routine) - Closed Specialty Diagnoses / Procedures Referred By Contgiuliana t Referred To Contact Hematology and Oncology Diagnoses Abnormal mammogram Breast cancer Carl Garvey, DNP [address] [place] [address] [facility] Hem Onc [address] [place] [address] Referral ID Status Reason Start Date Expiration Date V isits Requested Visits Authorized [id number] Closed Consult, Test & Treat PCP Updated and/or Approved 03/07/2024 03/07/2025 1 1 Encounter Details Date Type Department Care Team (Late st Contact Info) Description 04/09/2024 9:00 AM EDT Office Visit [place]ematology [place] [address] Emily Amaral MD [facility] [place] [address] Malignant neoplasm of lower-outer quadrant [...] Carcinoma, intermediate grade, ER+ (>90%, storng) / TX+ (70%, strong), HER2 negative by FISH. Olin clip was placed at the site. On [...] Anderson MD [facility] RAD MAMMOGRAPHY MEDICATIONS: atenoloL, benzonatate, hydroCHLOROthiazide, ibuprofen, [...] 14g device. Satisfactory sampling was obtained. [employer] Olin 14G marker clip was placed. Cranio-caudal and [...] 59 y.o. woman with left ILC, G2, ER/TX+ HER2- (2.5cm by US) with nipple retraction, [...] this patient's care today. This time includes [id number] time with the patient as well as time spent reviewing patient records, coordinating/communicating withcare teams and documenting the patient visit. EMILY AMARAL MD 04/09/2024 documented in this encounter Plan of Treatment Upcoming Encounters Date Type Department Care Team (Late st Contact Info) Description 08/07/2024 9:00 AM EST Appointment [place] [address] 08/07/2024 10:00 AM EST Office Visit [place]ematology [place] [address] Rosalba Patel MD [facility] [place] [address] 08/07/2024 12:00 PM EST Appointment Hematology [place] [address] 08/21/2024 8:30 AM EST Appointment Hematology [place] [address] 08/21/2024 10:00 AM EST Office Visit [place]ematology [place] [address] Rosalba Patel MD [facility] [place] [address] 08/21/2024 11:30 AM EST Appointment [place]ology [place] [address] documented as of this encounter Visit Diagnoses Diagnosis Malignant neoplasm of lower-outer quadrant of left breast of female, estrogen receptor positive- Primary documented in this encounter Care Teams Communications Equipment Installer Relationship Specialty Start Date End Date Nat Nicolas APRN [address] [place] [address] PCP - General Family Medicine 04/02/24 documented as of this encounter
--- OUTSIDE RECORDS SUMMARY | 2024-07-17 10:06 | XMS_ITS | Encounter Summary ---
[place] [address] Care Team Providers Care Painter And Body Mechanic Apprentice Name Role Phone Nat Nicolas APRN Primary Care Provider Reason for Referral * Diagnostic Test (Routine) - Closed Specialty Diagnoses / Procedures Referred By Laurel t Referred To Contact Radiology Diagnoses Malignant neoplasm of left breast in female, estrogen receptor positive, unspecified site of breast Procedures CT Chest Abdomen Pelvis w Contrast (Generic) Daily Amaral MD [facility] [place] [address] [facility] [place] [address] Referral ID Status Reason Start Date Expiration Date V isits Requested Visits Authorized [id number] Closed Specialty Service Requested 04/10/2024 10/08/2025 1 1 Reason for Visit * Diagnostic Test (Routine) - Closed Specialty Diagnoses / Procedures Referred By Laurel garrett Referred To Contact Radiology Diagnoses Malignant neoplasm of left breast in female, estrogen receptor positive, unspecified site of breast Procedures CT Chest Abdomen Pelvis w Contrast (Generic) Daily Amaral MD [facility] [place] [address] [facility] [place] [address] Referral ID Status Reason Start Date Expiration Date V isits Requested Visits Authorized [id number] Closed Specialty Service Requested 04/10/2024 10/08/2025 1 1 Encounter Details Date Type Department Care Team (Latest Contact Info) Description 04/25/2024 11:26 AM EDT - 04/25/2024 11:59 PM EDT Hospital [place] [address] Daily Amaral MD [facility] [address] Malignant neoplasm of left breast [...] AM EST Appointment Hematology [place] [address] 08/07/2024 10:00 AM EST Office Visit [place]ematology [place] [address] Rosalba Patel MD [facility] [place] [address] 08/07/2024 12:00 PM EST Appointment Hematology [place] [address] 08/21/2024 8:30 AM EST Appointment H[place]ology [place] [address] 08/21/2024 10:00 AM EST Office Visit [place]ematology [place] [address] Rosalba Patel MD [facility] [place] [address] 08/21/2024 11:30 AM EST Appointment [place]ematology [place] [address] documented as of this encounter Procedures Procedure Name Priority Date/Time Associated Diagnosis Comments CT CHEST ABDOMEN PELVIS W CONTRAST (GENERIC) Routine 04/25/2024 1:50 PM EDT Malignant neoplasm of left breast in female, estrogen receptor positive, unspecified site of breast documented in this encounter Results * CT Chest Abdomen Pelvis w Contrast (Generic) (04/25/2024 1:50 PM EDT) WORKSTATION ID [id number] RAD Anatomical Region Laterality Modality Abdomen, Pelvis [...] questions please contact the health health care coordinator that requested your imaging first. ? Narrative [...] structures: No suspicious lesions. Procedure Note Anamaria Loepz MD - 04/28/2024 EXAMINATION: CT CHEST ABDOMEN [...] who have questions please contactthe health health care coordinator that requested your imaging first. Daily Amaral [...] mLs documented in this encounter Care Teams Painter And Body Mechanic Apprentice Relationship Specialty Start Date End Date Nat Nicolas, GLASS CUTTING MACHINE FEEDER [address] [place] [address] PCP - General Family Medicine 04/02/24 documented as of this encounter
--- OUTSIDE RECORDS SUMMARY | 2024-07-17 10:06 | XMS_ITS | Encounter Summary ---
[place] [address] Care Team Providers Care Area Development Manager Name Role Phone Maria Isabel Nat Malloy APRN Primary Care Provider Encounter Details Date Type Department Care Team (Late st Contact Info) Description 04/07/2024 Patient Outreach Hematology [place] [address] Genna Arvizu, RN Social History Tobacco Use [...] navigation services after Dr.'s Anderson and Jameel, [facility] radiologists, informed her that her breast biopsy results indicated she has breast cancer, and to introduce her to the CBP. Martha Rodriguez is a 59 y.o. female with newly diagnosed ER/NC+/Her-2 pending left breast invasive lobular carcinoma (left breast biopsy 04/02/2024 at [facility]). Martha sounds positive, though a bit teary, and has support. Her and daughter will accompany to appointments. She appears to be coping ok but is anxious to meet with a breast surgeon to determine a treatment plan. 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 She states they are sending her [employer] paperwork for completion via mail and she [...] consultation. She understands that Fide Hess, CHRISTIANO, [facility], our socially responsible investment adviser, and I are available to her for [...] ago. She will try to obtain results [facility]. She states they tested her for BRCA [...] AM EST Appointment Hematology [place] [address] 08/07/2024 10:00 AM EST Office Visit Hematology [place] [address] Rosalba Patel MD [facility] [place] [address] 08/07/2024 12:00 PM EST Appointment Hematology [place] [address] 08/21/2024 8:30 AM EST Appointment Hematology [place] [address] 08/21/2024 10:00 AM EST Office Visit Hematology [place] [address] Rosalba Patel MD [facility] [place] [address] 08/21/2024 11:30 AM EST Appointment Hematology [place] [address] documented as of this encounter Visit Diagnoses Not on filedocumented in this encounter Care Teams Area Development Manager Relationship Specialty Start Date End Date Nat Nicolas, PATIENT CARE REPRESENTATIVE [address] [place] [address] PCP - General Family Medicine 04/02/24 documented as of this encounter
--- OUTSIDE RECORDS SUMMARY | 2024-07-17 10:06 | XMS_ITS | Encounter Summary ---
Author [place] [address] Care Team Providers Care Orthopedic Shoe Fitter Name Role Phone Nat Nicolas APRN Primary Care Provider Encounter Details Date Type Department Care Team (Latest Contact Info) Description 04/25/2024 10:35 AM EDT Laboratory Appointment Lab [address] [place] [phone] Malignant neoplasm of left breast in female, [...] AM EST Appointment Hematology [place] [address] 08/07/2024 10:00 AM EST Office Visit Hematology [place] [address] Rosalba Patel MD [facility] [place] [address] 08/07/2024 12:00 PM EST Appointment Hematology [place] [address] 08/21/2024 8:30 AM EST Appointment Hematology [place] [address] 08/21/2024 10:00 AM EST Office Visit [place]ematology [place] [address] Rosalba Patel MD [facility] [place] [address] 08/21/2024 11:30 AM EST Appointment Hematology [place] [address] documented as of this encounter Procedures Procedure [...] 65 - 199 mg/dL 04/25[facility]2024 11:[facility] Comment:Glucose Concentratio n >=200 mg/dL plus symptoms is consistent with Diabetes Mellitus. Blood Urea Nitrogen 14 8 - 18 mg/dL 04/25/2024 11:57 AM [facility] Creatinine 0.59(L) 0.70 - 1.20 mg/dL 04/25/2024 11:57 AM [facility] Sodium 138 135 - 145 mMol/L 04/25/2024 11:57 AM [facility] Potassium 4.2 3.5 - 5.0 mMol/L 04/25/2024 11:57 AM [facility] Chloride 101 98 - 107 mMol/L 04/25/2024 11:57 AM [facility] Carbon Dioxide 24 22 - 31 mMol/L 04/25/2024 11:57 AM [facility] Anion Gap 13 5 - 15 mMol/L 04/25/2024 11:57 AM [facility] Calcium 9.9 8.5 - 10.5 mg/dL 04/25/2024 11:57 AM [facility] Protein, Total 7.0 6.1 - 8.0 g/dL 04/25/2024 11:57 AM [facility] Albumin 4.4 3.2 - 5.2 g/dL 04/25/2024 11:57 AM [facility] Aspartate Aminotransferase 20 <=30 unit/L 04/25/2024 11:57 AM [facility] Alanine Aminotransferase 29 0 - 30 unit/L 04/25/2024 11:57 AM [facility] Alkaline Phosphatase 141(H) 35 - 105 unit/L 04/25/2024 11:57 AM [facility] Bilirubin, Total <0.2 <=1.3 mg/dL 04/25/2024 11:57 AM [facility] Est Glomerular Filtration Rate - Female 103 mL/min/1. 73 m?? 04/25/2024 11:57 AM [facility] Comment: This patient's [...] Foundation Fasting Status No 04/25/2024 11:57 AM [facility] Blood VENOUS BLOOD SPECIMEN / Unknown Venipuncture / Unknown 04/25/2024 11:14 AM EDT 04/25/2024 11:14 AM EDT Daily Amaral MD CHEMISTRY ORDERAB LES Performing Organization Address City/State/[facility] Co de Phone Number [facility] [place] [address] * CBC (with Diff) (04/25/2024 11:14 AM EDT) White Blood Cell 9.09 4.00 - 9.50 x10(3)/mcL 04/25/2024 11:32 AM [facility] Red Blood Cell 4.96 4.00 - 5.21 x10(6)/mcL 04/25/2024 11:32 AM EDT [facility] Hemoglobin 15.2 11.7 - 15.5 g/dL 04/25/2024 11:32 AM [facility] Hematocrit 43.7 35.7 - 45.8 % 04/25/2024 11:32 AM [facility] Mean Cell Volume 88.1 82.6 - 94.4 fL 04/25/2024 11:32 AM [facility] Mean Cell Hemoglobin 30.6 27.1 - 32.0 pg 04/25/2024 11:32 AM [facility] Mean Cell Hemoglobin Concentration 34.8 31.7 - 35.0 g/dL 04/25/2024 11:32 AM [facility] Platelet 317 145 - 357 x10(3)/mcL 04/25/2024 11:32 AM [facility] Mean Platelet Volume 11.5 7.6 - 12.9 fL 04/25/2024 11:32 AM [facility] RDW Standard Deviation 38.4 37.0 - 46.0 fL 04/25/2024 11:32 AM [facility] RDW coefficient of variation 12.0 11.5 - 14.1 % 04/25/2024 11:32 AM [facility] NRBC% auto 0.0 % 04/25/2024 11:32 AM [facility] NRBC Absolute <0.01 <0.01 x10(3)/mcL 04/25/2024 11:32 AM [facility] Neutrophil % 57.8 % 04/25/2024 11:32 AM [facility] Neutrophil Absolute (ANC) - Automated 5.24 1.70 - 6.10 x10(3)/mcL 04/25/2024 11:32 AM [facility] Lymph % 30.1 % 04/25/2024 11:32 AM [facility] Lymph Absolute 2.74 0.90 - 3.20 x10(3)/mcL 04/25/2024 11:32 AM [facility] Monocyte % 7.0 % 04/25/2024 11:32 AM [facility] Monocyte Absolute 0.64 0.30 - 0.90 x10(3)/mcL 04/25/2024 11:32 AM [facility] Eos % 4.3 % 04/25/2024 11:32 AM [facility] Eos Absolute 0.39 0.00 - 0.40 x10(3)/mcL 04/25/2024 11:32 AM EDT [facility] Basophil % 0.4 % 04/25/2024 11:32 AM EDT [facility] Baso Absolute 0.04 0.00 - 0.10 x10(3)/mcL 04/25/2024 11:32 AM EDT [facility] Immature Gran % 0.4 % 11:32 AM EDT [facility] Immature Gran Absolute 0.04 0.00 - 0.04 x10(3)/mcL 04/25/2024 11:32 AM EDT [facility] Blood VENOUS BLOOD SPECIMEN / Unknown Venipuncture / Unknown 04/25/2024 11:14 AM EDT 04/25/2024 11:14 AM EDT Daily Amaral MD HEMATOLOGY ORDERA BLES Performing Organization Address City/State/[facility] Co de Phone Number [facility] [place] [address] documented in this encounter Visit Diagnoses Diagnosis Malignant neoplasm of left breast in female, estrogen receptor positive, unspecified site of breast documented in this encounter Care Teams Orthopedic Shoe Fitter Relationship Specialty Start Date End Date Nat Nicolas, GEOLOGY SCIENTIST [address] [place] [address] PCP - General Family Medicine 04/02/24 documented as of this encounter
--- OUTSIDE RECORDS SUMMARY | 2024-07-17 10:06 | XMS_ITS | Encounter Summary ---
Author Organization [facility] [place] [address] Care Team Providers Care Chief Catalyst Operator Name Role Phone Zac Nicolascarlos Malloy APRN Primary Care Provider Encounter Details Date Type Department Care Team (Latest Contact Info) Description 04/02/2024 8:28 AM EDT - 04/02/2024 11:59 PM EDT Hospital [place] [phone] Dorota Anderson MD [facility] [place] [address] Abnormal finding on breast imaging Discharge Disposition: [...] AM EST Appointment H[place]ology [place] [address] 08/07/2024 10:00 AM EST Office Visit H[place]ology [place] [address] Rosalba aPtel MD [facility] [place] [address] 08/07/2024 12:00 PM EST Appointment H[place]ology [place] [address] 08/21/2024 8:30 AM EST Appointment [place] [address] 08/21/2024 10:00 AM EST Office Visit [place]ology [place] [address] Rosalba Patel MD [facility] [address] 08/21/2024 11:30 AM EST Appointment [place] [address] documented as of this encounter Procedures Procedure [...] may obscure small masses. FINDINGS: LEFT: The [place] marker clip is in the expected location. [...] questions please contact the health day care attendant that requested your imaging first. ? [facility] [address] [place], [place] ??[address] Dorota Anderson MD IMG MAMMO ORDERABLES documented in this encounter Visit Diagnoses Diagnosis Abnormal finding on breast imaging Other (abnormal) findings on radiological examination of breast documented in this encounter Care Teams Chief Catalyst Operator Relationship Specialty Start Date End Date Nat Nicolas, HEEL EDGE INKER MACHINE [address] [place] [address] PCP - General Family Medicine 04/02/24 documented as of this encounter
--- OUTSIDE RECORDS SUMMARY | 2024-07-17 10:06 | XMS_ITS | Encounter Summary ---
[facility] [place] [address] Care Team Providers Care Greens Picker Name Role Phone NicolasZacNatcarlos Malloy APRN Primary [...] AM EST App[facility]ment [facility] [place] [address] 08/07/2024 10:00 AM EST Office Visit Hematology [place] [address] Rosalba Patel MD [facility] [place] [address] 08/07/2024 12:00 PM EST Appointment Hematology [place] [address] 08/21/2024 8:30 AM EST Appointment Hematology [place] [address] 08/21/2024 10:00 AM EST Office Visit Hematology [place] [address] Rosalba Patel MD [facility] [place] [address] 08/21/2024 11:30 AM EST Appointment Hematology [place] [address] documented as of this encounter Visit Diagnoses Not on filedocumented in this encounter Care Teams Greens Picker Relationship Specialty Start Date End Date Nat Nicolas APRN [address] [place] [address] PCP - General Family Medicine 04/02/24 documented as of this encounter
--- OUTSIDE RECORDS SUMMARY | 2024-07-17 10:06 | XMS_ITS | Encounter Summary ---
[place] [address] Care Team Providers Care Final Inspector Name Role Phone Nat Nicolas APRN Primary Care Provider Reason for Referral * Diagnostic Test (Routine) - Closed Specialty Diagnoses / Procedures Referred By Laurel garrett Referred To Contact Cardiology Diagnoses Malignant neoplasm of lower-outer quadrant of left breast of female, estrogen receptor positive Procedures Echocardiogram Transthoracic Dallin Falcon APRN [facility] [place] [address] [facility] [place] [address] Referral ID Status Reason Start Date Expiration Date V isits Requested Visits Authorized [id number] Closed Specialty Service Requested 04/30/2024 04/30/2025 1 1 * Diagnostic Test (Routine) - Closed Specialty Diagnoses / Procedures Referred By Laurel garrett Referred To Contact Radiology Diagnoses Malignant neoplasm of lower-outer quadrant of left breast of female, estrogen receptor positive Procedures IR Mediport Placement Dallin Falcon APRN [facility] [place] [address] [facility] [place] [address] Referral ID Status Reason Start Date Expiration Date V isits Requested Visits Authorized [id number] Closed Specialty Service Requested 04/30/2024 10/29/2025 1 1 * Consultation (STAT) - Closed Specialty Diagnoses / Procedures Referred By Laurel t Referred To Contact Genetics Diagnoses Malignant neoplasm of lower-outer quadrant of left breast of female, estrogen receptor positive Rosalba Patel MD [facility] [place] [address] [facility] [address] [place] [address] Referral ID Status Reason Start Date Expiration Date V isits Requested Visits Authorized [id number] Closed Consult, Test & Treat 04/30/2024 04/30/2025 1 1 Reason for Visit * Reason Comments Follow-up Encounter Details Date Type Department Care Team (Late Contact Info) Description 04/30/2024 2:00 PM EDT Office Visit [place]ology [place] [address] Rosalba Patel MD [facility] [place] [address] Malignant neoplasm of lower-outer quadrant of left [...] note were not included. [facility] Patient Name: Martha Estrada is a 59 y.o. female from [place], [place] (1 hour 10 min away). : 1965 Visit Date: 05/07/2024 PCP: Nat Nicolas APRN Breast surgical oncology: Lashay Amaral MD Radiation oncology: Referral pending Reason for visit: Follow-up to discuss neoadjuvant chemotherapy plan Summary: Martha sEtrada is a 59 y.o. 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 -, diagnosed on 03/06/2024, [...] biopsy Receptor status: ER positive (>90%, strong) ND [...] ER+ND+Her2-, who presents today in scheduled follow-up to [...] ILC, ER positive, ND positive, HER2 negative # Right breast mass, [...] Family history of prostate cancer * Ashkenazi Baptist heritage * Personal history of known genetic [...] IR Mediport Placement 05/05/2024 Debra Tamayo PA [facility] INTERVENTIONL RAD MAMMO US BIOPSY LEFT Left 04/02/2024 Mammo Us Biopsy Left 04/02/2024 Dorota Anderson MD [facility] RAD MAMMOGRAPHY Family History: Family [...] Units Case Report Surgical Pathology Report Case: [id number] Authorizing Provider: Dorota Anderson MD Collected: 04/02/2024 0912 Ordering [place] [facility] [place]ceived: 04/02/2024 1254 Pathologist: Keyla [...] immunostaining: >90% Stain intensity: Strong Progesterone Receptor (ND) immunoreactivity: Positive Cancer cells with immunostainin% Stain [...] The assays were performed according to the pocket and pulley machine operator's instructions using Anti-ER (SP1) and Anti-ND (16) antibodies. These tests were developed and their performance characteristics determined by [facility]. They may not have been cleared or [...] 0.2 cm-1.5 x 0.2 cm Tissue Description: [place]-white fibrofatty needle core biopsies. Sections/Processing: Entirely submitted in 1 cassette labeled A1. Ischemic time: 1 minute ajw Result Note THIS RESULT REQUIRES PHYSICIAN/KINGS FOLLOW UP Abnormal Resulting Agency [facility] Specimen Collected: 04/02/24 09:12 Last Resulted: 04/04/24 11:51 Surgical Pathology s/p definitive breast surgery: Pending Breast Imaging: Screening mammogram: Diagnostic mammogram and U/S: Status: Final result Visible to patient: Yes (not seen) Next appt: 04/25/2024 at 10:35 AM in Lab ([facility]) Dx: Mass of left breast, unspecified quad... 0 Result Notes Details Reading Physician Reading Date Result Priority Dorota Anderson MD [phone] 2508 03/10/2024 Narrative & Impression INTERPRETATION OF OUTSIDE BREAST IMAGING I have been asked to consult on this patient by Dr. Nicolas because he/she believes a review of this study may change or alter the care of this patient. STUDIES FROM: [Pending Sale To [facility] CLINICAL HISTORY: ? bx; Sending Institution [facility]; Date of exam [id number]; I believe [...] cancers. Please note: The interpretation of the [facility] Breast Imaging Radiologist subspecialist may differ from the original radiologists interpretation. This is usually not due to a deficiency of the original interpreting radiologist, rather due to the greater skill level afforded by sub-specialization in the field and/or reasonable variations in interpretations. If you have a concern regarding the - interpretation you may contact the [facility] Breast Recordist Office at . Thank you for letting us participate in the care of this patient. If you are a health care provider and have any questions regarding this report, please contact the number below. For patients who have questions please contact the health respiratory care instructor that requested your imaging first. Electronically signed by: Dorota Anderson MD, [facility] ([phone]), at 03/10/2024 2:42 PM Component 1 mo ago WORKSTATION ID [id number] Resulting Agency [facility] Exam Ended: 03/10/24 07:30 Last Resulted: 03/10/24 [...] Reading Date Result Priority Olive Garcia MD [phone] 2533 04/08/2024 Armond Amezcua MD 04/08/2024 Narrative & Impression EXAMINATION: MRI BREAST WWO CONTRAST BILAT CLINICAL INDICATION: new breast cancer. History of left breast ILC ER/ND positive TECHNIQUE: Multiplanar sequences were obtained pre- [...] who have questions please contact the health respiratory care instructor that requested your imaging first. Component 2 wk ago WORKSTATION ID [id number] Resulting Agency [facility] Exam Ended: 04/08/24 10:00 Last Resulted: 04/08/24 16:02 Status: Final result Visible to patient: Yes (not seen) Next appt: 04/25/2024 at 10:35 AM in Lab ([facility]) Dx: Malignant neoplasm of lower-outer cole... 0 Result Notes Details Reading Physician Reading Date Result Priority Olive Garcia MD [phone] 2533 04/10/2024 Armond Amezcua MD 04/10/2024 Narrative & Impression EXAMINATION: MRI ADDITIONAL VIEW - BREAST CLINICAL INDICATION: new breast cancer - repeat imaging. Left breast ILC, ER-positive ND positive and HER-2 negative TECHNIQUE: Multiplanar sequences were obtained pre- and post- Dotarem enhancement, to include SPGR weighted dynamic run-off and subtraction sequences obtained after the intravenous administration of 16 ccs of Dotarem. Computer algorithm analysis for lesion detection and kinetic contrast enhancement curve analysis was performed, using [employer] software. COMPARISON STUDIES: Compared and/or correlated with [...] who have questions please contact the health respiratory care instructor that requested your imaging first. Electronically signed by: Olive Garcia [facility] ([phone]), at 04/10/2024 12:28 PM Component 13 d ago WORKSTATION ID [id number] Resulting Agency [facility] Exam Ended: 04/09/24 14:20 Last Resulted: 04/10/24 12:28 Annual mammogram: Per surgery; not yet due. Schedule pending surgical date. Imaging: CT C/A/P with contrast: Status: Final result Visible to patient: Yes (seen) Next appt: 05/08/2024 at 07:35 AM in Radiology (Mammo Room) Dx: Malignant neoplasm of left breast in ... 0 Result Notes Details Reading Physician Reading Date Result Priority Anamaria Velazquez MD [phone] 2954 04/28/2024 Narrative & Impression EXAMINATION: CT [...] who have questions please contact the health respiratory care instructor that requested your imaging first. Electronically signed by: ANAMARIA VELAZQUEZ MD, [facility] ([phone]), at 04/28/2024 10:09 AM Component 12 d ago WORKSTATION ID [id number] Resulting Agency [facility] Exam Ended: 04/25/24 13:50 Last Resulted: 04/28/24 10:09 Bone scan: Status: Final result Visible to patient: Yes (seen) Next appt: 05/08/2024 at 07:35 AM in Radiology (Mammo Room) Dx: Malignant neoplasm of left breast in ... 0 Result Notes Details Reading Physician Reading Date Result Priority Jay Loyola MD [phone] 200604/29/2024 Kalie Jorgensen MD [phone] [address]/29/2024 Narrative & Impression EXAMINATION: NM BONE [...] who have questions please contact the health respiratory care instructor that requested your imaging first. Electronically signed by: Jay Loyola MD, [facility] ([phone]), at 04/29/2024 11:33 AM Component 8 d ago WORKSTATION ID [id number] Resulting Agency [facility] Exam Ended: 04/29/24 10:53 Last Resulted: 10/08/24 11:[address]: N/A DEXA scan: Pending Cardiac oncology: EKG: N/A TTE: Pending Counseling: Total time spent: 60 minutes with > 50% spend in discussion of above, [id number] time and coordination of care with the [...] and concerns. Rylie Patel MD Medical Oncology [facility] Machine Ii EngraverBreak Off Worker, [employer] Office Cancer.[facility] documented in this encounter Plan of Treatment Upcoming Encounters Date Type Department Care Team (Late st Contact Info) Description 08/07/2024 9:00 AM EST Appointment [place] [address] 08/07/2024 10:00 AM EST Office Visit [place]ology [place] [address] Rosalba Patel MD [facility] [place] [address] 08/07/2024 12:00 PM EST Appointment [place] [address] 08/21/2024 8:30 AM EST Appointment [place] [address] 08/21/2024 10:00 AM EST Office Visit [place] [address] Rosalba Patel MD [facility] [place] [address] 08/21/2024 11:30 AM EST Appointment [place] [address] Scheduled Referrals Name Type Priority Associated Diagnoses [...] the presence of an attending radiologist. Resident (electronic typesetting machine operator): Jossy Velasco MD Attending: Patricio Christy MD Not present for the procedure. 05/05/2024 Daliln Falcon CAROUSEL OPERATOR IMG IR ORDERABLES * ECHO COMPLETE (05/05/2024 12:09 PM EDT) EF 59 HEARTLAB SYSTEM Anatomical Region Laterality Modality Cardiac Other 05/05/2024 11:2 2 AM EDT Narrative 05/05/2024 1:06 PM EDT [address] [place] [address] ? Echocardiogram Report Name: MARTHA ESTRADA ?Study Date: 05/05/2024 11:22 AMBP: 127/82 mmHg : 1965 ? Height: 164 cm ? Account: [id number] Age: 59 yrs ? Weight: 82 kg Gender: Female ?BSA: 1.9 m2 Ordering Physician: DALLIN FALCON Referring Physician: DALLIN FALCON Performed By: NATALIIA Haque Reason For Study: Malignant neoplasm of lower-outer quadrant of left breast of female Exam Location: [facility]. Interpretation Summary 1. Mildly increased left ventricual [...] regurgitation. No prior study for comparison. Procedure Complete-[id number]. Satisfactory quality. There is normal sinus rhythm. [...] Note Chantel Villavicencio MD - 05/05/2024 1 [place] [address] Echocardiogram Report Name: MARTHA ESTRADA Study Date: 1:22 AMBP: 127/82 mmHg : 1965 Height: 164 cm Account: [id number] Age: 59 yrs Weight: 82 kg Gender: Female BSA: 1.9 m2 Ordering Physician: DALLIN FALCON Referring Physician: DALLIN FALCON Performed By: NATALIIA Haque Reason For Study: Malignant neoplasm of lower-outer quadrant of leftbreast of female Exam Location: [facility]. Interpretation Summary 1. Mildly increased left ventricual wall thickness normal chamber sizeand systolic function. The left ventricular ejection fraction is 59% by 3D.Maximal longitudinal strain was seen in 3 chamber view -16.4%. Suboptimal speckletracking in other views. 2. Normal right ventriclar size and systolic function. The peak rightventricular systolic pressure is 22.7 mmHg. 3. Mild tricuspid regurgitation. No prior study for comparison. Procedure Complete-[id number]. Satisfactory quality. There is normal sinus rhythm. [...] positive documented in this encounter Care Teams Final Inspector Relationship Specialty Start Date End Date Nat Nicolas APRN [address] [place] [address] PCP - General Family Medicine 04/02/24 documented as of this encounter
--- OUTSIDE RECORDS SUMMARY | 2024-07-17 10:06 | XMS_ITS | Encounter Summary ---
[place] [address] Care Team Providers Care Auto Tester Name Role Phone Nat Nicolas APRN Primary Care Provider Reason for Referral * Diagnostic Test (Routine) - Closed Specialty Diagnoses / Procedures Referred By Laurel garrett Referred To Contact Radiology Diagnoses Malignant neoplasm of left breast in female, estrogen receptor positive, unspecified site of breast Procedures MRI Breast wwo Contrast Daily Samano MD [facility] [place] [address] [place] [address] Referral ID Status Reason Start Date Expiration Date V isits Requested Visits Authorized [id number] Closed Specialty Service Requested 04/04/2024 10/02/2025 1 1 Reason for Visit * Diagnostic Test (Routine) - Closed Specialty Diagnoses / Procedures Referred By Laurel garrett Referred To Contact Radiology Diagnoses Malignant neoplasm of left breast in female, estrogen receptor positive, unspecified site of breast Procedures MRI Breast wwo Contrast Daily Samano MD [facility] [place] [address] [place] [address] Referral ID Status Reason Start Date Expiration Date V isits Requested Visits Authorized [id number] Closed Specialty Service Requested 04/04/2024 10/02/2025 1 1 Encounter Details Date Type Department Care Team (Latest Contact Info) Description 04/08/2024 8:43 AM EDT - 04/08/2024 11:59 PM EDT Hospital [place] [address] Daily Amaral MD [facility] [place] [address] Malignant neoplasm of left breast [...] AM EST Appointment Hematology [place] [address] 08/07/2024 10:00 AM EST Office Visit Hematology [place] [address] Rosalba Patel MD [facility] [place] [address] 08/07/2024 12:00 PM EST Appointment Hematology [place] [address] 08/21/2024 8:30 AM EST Appointment Hematology [place] [address] 08/21/2024 10:00 AM EST Office Visit Hematology [place] [address] Rosalba Patel MD [facility] [place] [address] 08/21/2024 11:30 AM EST Appointment Hematology [place] [address] documented as of this encounter Procedures Procedure [...] who have questions please contact the health pediatric critical care nurse that requested your imaging first. ? Narrative 04/08/2024 4:02 PM EDT EXAMINATION: MRI BREAST WWO CONTRAST BILAT CLINICAL INDICATION: new breast cancer. History of left breast ILC ER/[place] positive TECHNIQUE: Multiplanar sequences were obtained pre- [...] Intravenous, ONCE PRN, 1 dose, Starting on Tu04/08/24 at 1123, Until Sun04/08/24 at 0945, Per Protocol, Radiology Contrast, Routine Given 04/08/2024 9:45 AM EDT 18 mLs documented in this encounter Care Teams Auto Tester Relationship Specialty Start Date End Date Nat Nicolas APRN [address] [place] [address] PCP - General Family Medicine 04/02/24 documented as of this encounter
--- OUTSIDE RECORDS SUMMARY | 2024-07-17 10:06 | XMS_ITS | Encounter Summary ---
[place] [address] Care Team Providers Care Fig Caprifier Name Role Phone Nat Nicolas APRN Primary Care Provider Encounter Details Date Type Department Care Team (Late st Contact Info) Description 04/14/2024 Telephone [place] [address] Royce Newton MD [facility] [place] [address] Social History Tobacco Use Types Packs/Day Years [...] neoplasm of her left breast with Dr. Amaral. Martha calls today in regards to her [...] Royce Newton MD Resident, General Surgery Pager [phone] 04/14/24 5:32 PM documented in this encounter Plan of Treatment Upcoming Encounters Date Type Department Care Team (Late st Contact Info) Description 08/07/2024 9:00 AM EST Appointment Hematology [place] [address] 08/07/2024 10:00 AM EST Office Visit Hematology [place] [address] Rosalba Patel MD [facility] [place] [address] 08/07/2024 12:00 PM EST Appointment Hematology [place] [address] 08/21/2024 8:30 AM EST Appointment Hematology [place] [address] 08/21/2024 10:00 AM EST Office Visit Hematology [place] [address] Rosalba Patel MD [facility] [place] [address] 08/21/2024 11:30 AM EST Appointment Hematology [place] [address] documented as of this encounter Visit Diagnoses Not on filedocumented in this encounter Care Teams Fig Caprifier Relationship Specialty Start Date End Date Nat Nciolas APRN [address] [place] [address] PCP - General Family Medicine 04/02/24 documented as of this encounter
--- OUTSIDE RECORDS SUMMARY | 2024-07-17 10:06 | XMS_ITS | Encounter Summary ---
[place] [address] Care Team Providers Care Project Manager/Team Coach Name Role Phone Nat Nicolas APRN Primary Care Provider Reason for Referral * Diagnostic Test (Routine) - Closed Specialty Diagnoses / Procedures Referred By Contac t Referred To Contact Radiology Diagnoses Malignant neoplasm of left breast in female, estrogen receptor positive, unspecified site of breast Procedures NM Bone Scan Whole Body Daily Amaral MD [facility] [place] [address] [facility] [place] [address] Referral ID Status Reason Start Date Expiration Date V isits Requested Visits Authorized [id number] Closed Specialty Service Requested 04/10/2024 10/08/2025 1 1 * Diagnostic Test (Routine) - Closed Specialty Diagnoses / Procedures Referred By Contac t Referred To Contact Radiology Diagnoses Malignant neoplasm of left breast in female, estrogen receptor positive, unspecified site of breast Procedures CT Chest Abdomen Pelvis w Contrast (Generic) Daily Amaral MD [facility] [place] [address] [facility] [place] [address] Referral ID Status Reason Start Date Expiration Date V isits Requested Visits Authorized [id number] Closed Specialty Service Requested 04/10/2024 10/08/2025 1 1 Encounter Details Date Type Department Care Team (Late st Contact Info) Description 04/10/2024 Telephone [place] [address] Daily Amaral MD [facility] [place] [address] Social History Tobacco Use Types [...] AM EST Appointment Hematology [place] [address] 08/07/2024 10:00 AM EST Office Visit [place]ematology [place] [address] Rosalba Patel MD [facility] [place] [address] 08/07/2024 12:00 PM EST Appointment Hematology [place] [address] 08/21/2024 8:30 AM EST Appointment Hematology [place] [address] 08/21/2024 10:00 AM EST Office Visit Hematology [place] [address] Rosalba Patel MD [facility] [place] [address] 08/21/2024 11:30 AM EST Appointment Hematology [place] [address] documented as of this encounter Results * Mammo US Biopsy Lymph Node Left (05/08/2024 9:41 AM EDT) WORKSTATION ID [id number] RAD Anatomical Region Laterality Modality Breast [...] who have questions please contact the health laboratory animal caretaker that requested your imaging first. ? Electronically signed by: Olive Garcia [facility] ([phone]), at 05/12/2024 10:54 AM --------ORIGINAL REPORT -------- EXAMINATION: MAMMO US BIOPSY [...] who have questions please contact the health laboratory animal caretaker that requested your imaging first. ? Electronically signed by: KALPESH [facility] ([phone]), at 05/08/2024 1:09 PM Impressions 05/08/2024 1:09 [...] who have questions please contact the health laboratory animal caretaker that requested your imaging first. ? Electronically signed by: KALPESH [facility] ([phone]), at 05/08/2024 1:09 PM Ltac, Located Within [facility] [place] [address] [place] ??[address] Narrative 05/08/2024 1:09 PM EDT EXAMINATION: MAMMO [...] obtained using a Inrad 18G device. A Taktio Twirl marker clip was placed. Cranio-caudal and [...] Body (04/29/2024 10:53 AM EDT) WORKSTATION ID [id number] RAD Anatomical Region Laterality Modality Nuclear Medicine [...] who have questions please contact the health laboratory animal caretaker that requested your imaging first. ? Electronically signed by: Jay Loyola MD, [facility] ([phone]), at 04/29/2024 11:33 AM Narrative 04/29/2024 11:33 [...] patients who have questions please contactthe health laboratory animal caretaker that requested your imaging first. Electronically signed by: Jay Loyola MD, [facility]([phone]), at 04/29/2024 11:33 AM Daily Amaral MD [facility] ORDERABLES * CT Chest Abdomen Pelvis w Contrast (Generic) (04/25/2024 1:50 PM EDT) WORKSTATION ID [id number] RAD Anatomical Region Laterality Modality Abdomen, Pelvis [...] who have questions please contact the health laboratory animal caretaker that requested your imaging first. ? Electronically signed by: ANAMARIA LOPEZ MD, [facility] ([phone]), at 04/28/2024 10:09 AM Narrative 04/28/2024 10:09 [...] patients who have questions please contactthe health laboratory animal caretaker that requested your imaging first. Electronically signed by: ANAMARIA LOPEZ MD, [facility]([phone]), at 04/28/2024 10:09 AM Daily Amaral MD [...] breast documented in this encounter Care Teams Project Manager/Team Coach Relationship Specialty Start Date End Date Nat Nicolas, [address] [place] [address] PCP - General Family Medicine 04/02/24 documented as of this encounter
--- OUTSIDE RECORDS SUMMARY | 2024-07-17 10:06 | XMS_ITS | Encounter Summary ---
Author Organization [facility] [address] Care Team Providers Care Maintenance Service Supervisor Name Role Phone Zac Nicolascarlos Malloy APRN Primary Care Provider Encounter Details Date Type Department Care Team (Latest Contact Info) Description 04/02/2024 7:45 AM EDT - 04/02/2024 8:27 AM EDT Hospital [place] [address] Dorota Anderson MD [facility] [place] [address] Abnormal finding on breast imaging Discharge Disposition: [...] AM EST Appointment Hematology [place] [address] 08/07/2024 10:00 AM EST Office Visit Hematology [place] [address] Rosalba Patel MD [facility] [place] [address] 08/07/2024 12:00 PM EST Appointment Hematology [place] [address] 08/21/2024 8:30 AM EST Appointment Hematology [place] [address] 08/21/2024 10:00 AM EST Office Visit [place]ematology [place] [address] Rosalba Patel MD [facility] [place] [address] 08/21/2024 11:30 AM EST Appointment Hematology [place] [address] documented as of this encounter Procedures Procedure [...] who have questions please contact the health child daycare worker that requested your imaging first. ? Electronically signed by: Dorota Anderson MD, [facility] ([phone]), at 04/15/2024 4:03 PM --------ORIGINAL REPORT -------- [...] 14g device. Satisfactory sampling was obtained. A LeversenserAuto Mute Chastity 14G marker clip was placed. Cranio-caudal [...] who have questions please contact the health child daycare worker that requested your imaging first. ? [...] who have questions please contact the health child daycare worker that requested your imaging first. ? Electronically signed by: Dorota Anderson MD, [facility] ([phone]), at 04/03/2024 4:[address] [facility] [address], [place] ??[address] Narrative 04/03/2024 4:37 PM EDT EXAMINATION: MAMMO [...] 14g device. Satisfactory sampling was obtained. A Senomark [place] 14G marker clip was placed. Cranio-caudal and [...] interpretation. PATHOLOGIC DIAGNOSIS: Pending Dorota Anderson MD [facility] MAMMO ORDERABLES * HER-2 FISH (04/02/2024 9:12 AM EDT) Pathologist [facility] Indication for Study 04/09/2024 9:17 AM [facility] Specimen Tissue Case/Block ID [id number] 04/09/2024 9:17 AM [facility] HER2 FISH Final Report Method Fluorescence in situ hybridization (FISH) with chromosome 17 centromere (17p11.1-q11.1) probe and a locus specific probe for the HER2 gene locus (17q11.2-q12). 04/09/2024 9:17 AM [facility] HER2/GEENA FISH Results Negative 04/09/2024 9:17 AM [facility] Total # signals/Total # nuclei counted for HER2 probe 321 04/09/2024 9:17 AM [facility] Total # Signals/Total # Nuclei counted for CEP-17 probe 184 04/09/2024 9:17 AM [facility] HER2 to CEP-17 Ratio (Normal Range <2.0) 1.7 04/09/2024 9:17 AM [facility] Total # Nuclei Counted 60 04/09/2024 9:17 AM [facility] Average # HER2 Signals/Cell 5.4 04/09/2024 9:17 AM [facility] HER2 FISH Interpretation Paraffin-embedded tissue sections were submitted for HER2 (ERBB2) gene amplification analysis by FISH. Direct analysis was performed using the PathVysion Kit. Slide adequacy and signal enumeration were [...] factor receptor 2 testing in breast cancer: [place] Society of Clinical Oncology/College of [place] Pathologists clinical practice guideline update. J Clin Oncol. 2013 Nov 1. Darleen AC, et al. Human Epidermal Growth Factor Receptor 2 Testing in Breast Cancer: [place] Society of Clinical Oncology/College of Citizen Of [place] Pathologists Clinical Practice Guideline Focused Update. Arch Pathol Lab Med. 2018 December 19/J Clin Oncol. 2017December 19. 04/09/2024 9:17 AM EDT [facility] Sign-out by This result has been reviewed by MAGDALENA ARMSTRONG MD, on 04/09/24 at 9:17 AM. 04/09/2024 9:17 AM EDT [facility] Tissue LEFT BREAST STRUCTURE / Unknown 04/02/2024 9:12 AM EDT 04/03/2024 10:16 AM EDT Dorota Anderson MD MOLECULAR ORDERABLES Performing Organization Address [facility]/State/[facility] Co de Phone Number [facility] [place] [address] * (ABNORMAL) Surgical Pathology (04/02/2024 9:12 AM EDT) Case Report Surgical Pathology Report ? Case: [id number] ? Authorizing Provider: ??Dorota Anderson MD ? Collected: ? 04/02/2024 0912 ? Ordering Location: ? Mammography at [facility] ?Received: ?04/02/2024 1254 ? Pathologist: ? Keyla Rodas, DO ? Specimen: ?Breast, Left, LEFT BREAST US BX ? 04/04/2024 11:51 AM [facility] Final Diagnosis A. Left breast, core needle biopsy: - Invasive lobular carcinoma, intermediate grade (modified SBR score = 7), measuring at least 14 mm. - Lymphovascular invasion not identified. 04/04/2024 11:51 AM [facility] Additional Studies Estrogen Receptor (ER) [...] similar to ER-negative cancers. 04/04/2024 11:51 AM [facility] Disclaimer(s) Formalin-fixed, paraffin-embedded tissue sections [...] The assays were performed according to the elevator runner's instructions using Anti-ER (SP1) and Anti-PA (16) antibodies. These tests were developed and their performance characteristics determined by [facility]. They may not have been cleared or [...] clinical laboratory testing. 04/04/2024 11:51 AM EDT [facility] Clinical Information A. Breast, Left, LEFT BREAST US BX Mass Rule out malignancy LEFT BREAST US BX 04/04/2024 11:51 AM EDT [facility] Gross Description A. Breast, Left, LEFT BREAST US BX. A - Labeled/Fixative: Left breast ultrasound biopsy, formalin. Quantity/Size: Two, 0.7 x 0.2 cm-1.5 x 0.2 cm Tissue Description: Wray-white fibrofatty needle core biopsies. Sections/Processing: Entirely submitted in 1 cassette labeled A1. Ischemic time: 1 minute ajw 04/04/2024 11:51 AM EDT [facility] Result Note THIS RESULT REQUIRES PHYSICIAN/KINGS FOLLOW UP(A) 04/04/2024 11:51 AM EDT [facility] Tissue LEFT BREAST STRUCTURE / Unknown 04/02/2024 9:12 AM EDT 04/02/2024 12:54 PM EDT Comment:LEFT BREAST US BX Dorota Anderson MD PATHOLOGY/CYTOLOGY O RDERABLES [facility] [place] [address] documented in this encounter Visit Diagnoses Diagnosis [...] mg documented in this encounter Care Teams Maintenance Service Supervisor Relationship Specialty Start Date End Date Nat Nicolas APRN [address] [place] [address] PCP - General Family Medicine 04/02/24 documented as of this encounter
--- OUTSIDE RECORDS SUMMARY | 2024-07-17 10:06 | XMS_ITS | Encounter Summary ---
[place] [address] Care Team Providers Care Land Resource Specialist Name Role Phone Nat Nicolas APRN Primary Care Provider Reason for Visit * Diagnostic Test (Routine) - Closed Specialty Diagnoses / Procedures Referred By Laurel garrett Referred To Contact Radiology Diagnoses Malignant neoplasm of lower-outer quadrant of left breast of female, estrogen receptor positive Procedures MRI Additional Views - Breast Armond Amezcua MD [facility] [place] [address] [facility] [place] [address] Referral ID Status Reason Start Date Expiration Date V isits Requested Visits Authorized [id number] Closed Specialty Service Requested 04/08/2024 10/06/2025 1 1 Encounter Details Date Type Department Care Team (Latest Contact Info) Description 04/09/2024 12:13 PM EDT - 04/09/2024 11:59 PM EDT Hospital [place] [address] Armond Amezcua MD [facility] [place] [address] Discharge Disposition: Home Social History [...] AM EST Appointment Hematology [place] [address] 08/07/2024 10:00 AM EST Office Visit Hematology [place] [address] Rosalba Patel MD [facility] [place] [address] 08/07/2024 12:00 PM EST Appointment Hematology [place] [address] 08/21/2024 8:30 AM EST Appointment Hematology [place] [address] 08/21/2024 10:00 AM EST Office Visit Hematology [place] [address] Rosalba Patel MD [facility] [place] [address] 08/21/2024 11:30 AM EST Appointment Hematology [place] [address] documented as of this encounter Procedures Procedure [...] mLs documented in this encounter Care Teams Land Resource Specialist Relationship Specialty Start Date End Date Nat Nicolas APRN [address] [place] [address] PCP - General Family Medicine 04/02/24 documented as of this encounter
--- OUTSIDE RECORDS SUMMARY | 2024-07-17 10:06 | XMS_ITS | Encounter Summary ---
[place] [address] Care Team Providers Care Health Technician Name Role Phone Maria Isabel Nat Malloy APRN Primary Care Provider Encounter Details Date Type Department Care Team (Late st Contact Info) Description 04/16/2024 Patient Outreach Hematology [place] [address] Genna Arvizu, RN Social History Tobacco Use [...] Rodriguez is a 59 y.o. female with ER/LA+/HER2 negative left breast cancer. I met with [...] appts. related to her travel [place] [facility] SPECIFIC TEACHIN. Contact phone number for Dr. Patel and her schedulers provided. 2. Discussed hair loss during chemotherapy and resources for wigs, scarfs, hats. Local Resource Guide - Wigs and Personal Care handout ([facility] 2023) and the [employer]'s TLC catalogue provided. ACS wig [...] AM EST Appointment Hematology [place] [address] 08/07/2024 10:00 AM EST Office Visit Hematology [place] [address] Rosalba Patel MD [facility] [place] [address] 08/07/2024 12:00 PM EST Appointment Hematology [place] [address] 08/21/2024 8:30 AM EST Appointment Hematology [place] [address] 08/21/2024 10:00 AM EST Office Visit Hematology [place] [address] Rosalba Patel MD [facility] [place] [address] 08/21/2024 11:30 AM EST Appointment Hematology [place] [address] documented as of this encounter Visit Diagnoses Not on filedocumented in this encounter Care Teams Health Technician Relationship Specialty Start Date End Date Nat Nicolas, [employer] WHEAT FARMER [address] [place] [address] PCP - General Family Medicine 04/02/24 documented as of this encounter
--- OUTSIDE RECORDS SUMMARY | 2024-07-17 10:06 | XMS_ITS | Encounter Summary ---
Author Organization [facility] [place] [address] Care Team Providers Care Long Winder Tender Name Role Phone Carl Garvey RUDDY Primary Care Provider [phone] Reason for Visit * (Routine) - Pending Review Specialty Diagnoses / Procedures Referred By Laurel garrett Referred To Contact Radiology Diagnoses Mass of left breast, unspecified quadrant Procedures Request for 2nd read Mammo Nat Nicolas, BOX REPAIRER [address] [facility] [place] [address] Referral ID Status Reason Start Date Expiration Date V isits Requested Visits Authorized [id number] Pending Review 03/10/2024 03/10/2025 1 1 Encounter Details Date Type Department Care Team (Late st Contact Info) Description 03/10/2024 7:35 AM EDT Ancillary Procedure Radiology Library [place] [address] Nat Nicolas, BOX REPAIRER [address] [facility] [place] [address] Mass of left breast, unspecified quadrant Social [...] AM EST Appointment Hematology [place] [address] 08/07/2024 10:00 AM EST Office Visit Hematology [place] [address] Rosalba Patel MD [facility] [place] [address] 08/07/2024 12:00 PM EST Appointment Hematology [place] [address] 08/21/2024 8:30 AM EST Appointment Hematology [place] [address] 08/21/2024 10:00 AM EST Office Visit [place]ematology [place] [address] Rosalba Patel MD [facility] [place] [address] 08/21/2024 11:30 AM EST Appointment Hematology [place] [address] documented as of this encounter Procedures Procedure Name Priority Date/Time Associated Diagnosis Comments REQUEST FOR 2ND READ MAMMO Routine 03/10/2024 7:30 AM EDT Mass of left breast, unspecified quadrant documented in this encounter Results * Request for 2nd read Mammo (03/10/2024 7:30 AM EDT) WORKSTATION ID [id number] RAD Anatomical Region Laterality Modality SO Narrative 03/10/2024 2:42 PM EDT INTERPRETATION OF OUTSIDE BREAST IMAGING I have been asked to consult on this patient by Dr. Nicolas because he/she believes a review of this study may change or alter the care of this patient. STUDIES FROM: [[facility] CLINICAL HISTORY: ? bx; Sending Institution [...] cancers. Please note: The interpretation of the [facility] Breast Imaging Radiologist subspecialist may differ from the original radiologists interpretation. This is usually not due to a deficiency of the original interpreting radiologist, rather due to the greater skill level afforded by sub-specialization in the field and/or reasonable variations in interpretations. If you have a concern regarding the D-H interpretation you may contact the [facility] Breast Dispatcher Chief [place] Office at . Thank you for letting us participate in the care of this patient. ??If you are a health care provider and have any questions regarding this report, please contact the number below. ??For patients who have questions please contact the health healthcare liaison that requested your imaging first. ? Electronically signed by: Dorota Anderson MD, [facility] ([phone]), at 03/10/2024 2:42 PM Procedure Note Dorota Anderson MD - 03/10/2024 INTERPRETATION OF OUTSIDE BREAST IMAGING I have been asked to consult on this patient by Dr. Nicolas becausehe/she believes a review of this study may change or alter the care of thispatient. STUDIES FROM: [facility] CLINICAL HISTORY: ? bx; Sending Institution [facility];Date of exam [id number]; I believe a [...] cancers. Please note: The interpretation of the [facility] BreastImaging Radiologist subspecialist may differ from the original radiologists interpretation. This is usually not due to a deficiency of the original interpreting radiologist, rather due to the greater skill level affordedby sub-specialization in the field and/or reasonable variations ininterpretations. If you have a concern regarding the -H interpretation you may [facility] Dis[facility] [place] [facility] at . Thank you for letting us participate in the care of this patient. If youare a health care provider and have any questions regarding this report,please contact the number below. For patients who have questions please contactthe health healthcare liaison that requested your imaging first. Electronically signed by: Dorota Anderson MD, [facility]([phone]), at 03/10/2024 2:42 PM Nat Nicolas BOX REPAIRER IMG OUTSIDE IN TERPRETATION ORDERABLES documented in this encounter Visit Diagnoses Diagnosis Mass of left breast, unspecified quadrant documented in this encounter Care Teams Long Winder Tender Relationship Specialty Start Date End Date Carl Garvey, [facility] [address] [place] [address] PCP - General Family Medicine 05/03/20 04/01/24 documented as of this encounter
--- OUTSIDE RECORDS SUMMARY | 2024-07-17 10:06 | XMS_ITS | Encounter Summary ---
Author Organization [facility] [place] [address] Care Team Providers Care Remediation Consultant Name Role Phone NicolasZacNatcarlos Malloy APRN [...] [facility] [place] [address] 08/07/2024 10:00 AM EST Office Visit [place]ology [place] [address] Rosalba Patel MD [facility] [place] [address] 08/07/2024 12:00 PM EST Appointment [place] [address] 08/21/2024 8:30 AM EST Appointment [place] [address] 08/21/2024 10:00 AM EST Office Visit [place] [address] Rosalba Patel MD [facility] [place] [address] 08/21/2024 11:30 AM EST Appointment [place]ematology [place] [address] documented as of this encounter Visit Diagnoses Not on filedocumented in this encounter Care Teams Remediation Consultant Relationship Specialty Start Date End Date Nat Nicolas APRN [address] [place] [address] PCP - General Family Medicine 04/02/24 documented as of this encounter
--- OUTSIDE RECORDS SUMMARY | 2024-07-17 10:06 | XMS_ITS | Encounter Summary ---
[place] [address] Care Team Providers Care Spiral Winding Machine Helper Name Role Phone Nat Nicolas APRN Primary Care Provider Reason for Referral * Diagnostic Test (Routine) - Closed Specialty Diagnoses / Procedures Referred By Contac t Referred To Contact Radiology Diagnoses Malignant neoplasm of left breast in female, estrogen receptor positive, unspecified site of breast Procedures NM Bone Scan Whole Body Daily Amaral MD [facility] [place] [address] [facility] [address] [place] [address] Referral ID Status Reason Start Date Expiration Date V isits Requested Visits Authorized [id number] Closed Specialty Service Requested 04/10/2024 10/08/2025 1 1 Reason for Visit * Diagnostic Test (Routine) - Closed Specialty Diagnoses / Procedures Referred By Contac t Referred To Contact Radiology Diagnoses Malignant neoplasm of left breast in female, estrogen receptor positive, unspecified site of breast Procedures NM Bone Scan Whole Body Daily Amaral MD [facility] [place] [address] [facility] [place] [address] Referral ID Status Reason Start Date Expiration Date V isits Requested Visits Authorized [id number] Closed Specialty Service Requested 04/10/2024 10/08/2025 1 1 Encounter Details Date Type Department Care Team (Latest Contact Info) Description 04/29/2024 7:20 AM EDT - 04/29/2024 10:01 AM EDT Hospital Encounter [place] [address] Daily Amaral MD [facility] [place] [address] Malignant neoplasm of left breast [...] EST Appointment Hematology [place] [address] 08/07/2024 10:00 AM EST Office Visit Hematology [place] [address] Rosalba Patel MD [facility] [place] [address] 08/07/2024 12:00 PM EST Appointment Hematology [place] [address] 08/21/2024 8:30 AM EST Appointment Hematology [place] [address] 08/21/2024 10:00 AM EST Office Visit Hematology [place] [address] Rosalba Patel MD [facility] [place] [address] 08/21/2024 11:30 AM EST Appointment Hematology [place] [address] documented as of this encounter Procedures Procedure Name Priority Date/Time Associated Diagnosis Comments NM BONE SCAN WHOLE BODY Routine 04/29/2024 10:53 AM EDT Malignant neoplasm of left breast in female, estrogen receptor positive, unspecified site of breast documented in this encounter Results * NM Bone Scan Whole Body (04/29/2024 10:53 AM EDT) WORKSTATION ID [id number] RAD Anatomical Region Laterality Modality Nuclear Medicine [...] who have questions please contact the health long term care social worker that requested your imaging first. ? [...] patients who have questions please contactthe health long term care social worker that requested your imaging first. Daily Amaral MD [facility] ORDERABLES documented in this encounter Visit Diagnoses [...] Intravenous, ONCE PRN, 1 dose, Starting on Tu04/29/24 at 0753, Until Tu04/29/24 at 0750, Per Protocol, Radiology Contrast, Routine Given 04/29/2024 7:50 AM EDT 25.2 mCi Right Arm documented in this encounter Care Teams Spiral Winding Machine Helper Relationship Specialty Start Date End Date Nat Nicolas APRN [address] [place] [address] PCP - General Family Medicine 04/02/24 documented as of this encounter
--- OUTSIDE RECORDS SUMMARY | 2024-07-17 10:06 | XMS_ITS | Encounter Summary ---
Author Organization [facility] [place] [address] Care Team Providers Care Medical Records Administrator Name Role Phone Zac Nicolascarlos Malloy APRN [...] AM EST Appointment Hematology [place] [address] 08/07/2024 10:00 AM EST Office Visit [place]ematology [place] [address] Rosalba Patel MD [facility] [place] [address] 08/07/2024 12:00 PM EST Appointment H[place]ology [place] [address] 08/21/2024 8:30 AM EST Appointment H[place]ology [place] [address] 08/21/2024 10:00 AM EST Office Visit [place]ematology [place] [address] Rosalba Patel MD [facility] [place] [address] 08/21/2024 11:30 AM EST Appointment Hematology [place] [address] documented as of this encounter Visit Diagnoses Not on filedocumented in this encounter Care Teams Medical Records Administrator Relationship Specialty Start Date End Date Nat Nicolas APRN [address] [place] [address] PCP - General Family Medicine 04/02/24 documented as of this encounter
--- OUTSIDE RECORDS SUMMARY | 2024-07-17 10:06 | XMS_ITS | Encounter Summary ---
Author Organization [place] [address] Care Team Providers Care Inventory Specialist Name Role Phone Nat Nicolas APRN Primary Care Provider Reason for Referral * Diagnostic Test (Routine) - Closed Specialty Diagnoses / Procedures Referred By Contac t Referred To Contact Radiology Diagnoses Malignant neoplasm of lower-outer quadrant of left breast of female, estrogen receptor positive Procedures MRI Additional Views - Breast Armond Amezcua MD [facility] [place] [address] [place] [address] Referral ID Status Reason Start Date Expiration Date V isits Requested Visits Authorized [id number] Closed Specialty Service Requested 04/08/2024 10/06/2025 1 1 Reason for Visit * Diagnostic Test (Routine) - Closed Specialty Diagnoses / Procedures Referred By Contgiuliana t Referred To Contact Radiology Diagnoses Malignant neoplasm of lower-outer quadrant of left breast of female, estrogen receptor positive Procedures MRI Additional Views - Breast Armond Amezcua MD [facility] [place] [address] [place] [address] Referral ID Status Reason Start Date Expiration Date V isits Requested Visits Authorized [id number] Closed Specialty Service Requested 04/08/2024 10/06/2025 1 1 Encounter Details Date Type Department Care Team (Latest Contact Info) Description 04/09/2024 12:13 PM EDT - 04/09/2024 11:59 PM EDT Hospital Encounter MRI at [facility] [place] [address] Armond Amezcua MD [facility] [place] [address] Malignant neoplasm of lower-outer quadrant of left [...] Amezcua, RN - 04/09/2024 12:38 PM EDT [facility] Department of Radiology MRI Nursing Martha Rodriguez 1965 [id number] April 09, 2024 You have received oral [...] or concerns: During regular office hours call: [phone]. If it is afterregular office hours, weekends or holidays, please call [phone] and ask to speak to the Assistant Therapy Aide semiconductor processing group leader for Interventional Radiology. Updated 12/09/21 documented in [...] Martha Rodriguez AGE: 59 y.o. : [address] [place] [address] Female [phone] (home) Telephone Information: Nat Nicolas APRN None Allergies Allergen Reactions Sulfa (Sulfonamide Antibiotics) Rash Date/Time of call: April 08, 2024/3:59 PM/ SCHEDULED SCAN: MRI ADDITIONAL VIEW - BREAST [[id number]] HEIGHT: 5'4 WEIGHT: 185lb Have you had [...] tolerated with Valium) You must have a customer service driver present when you check in. This patient has been informed that they require a customer service driver to drive them home after this procedure. In the absence of a customer service driver, IR will not be able tosedate for your scan. Pt verbalized understanding of these instructions during the pre-procedure education via phone. Yes Name of customer service driver: Phone number: PRIOR SCAN DATE/S SEDATION TYPE SUCCESSFUL 04/08/24 MRI Breast Bilateral wwo none yes 04/09/24 MRI Breast Ativan 1 mg x 2 PO Yes Revised 01/16/2023 documented in this encounter Plan of Treatment Upcoming Encounters Date Type Department Care Team (Late st Contact Info) Description 08/07/2024 9:00 AM EST Appointment Hematology [place] [address] 08/07/2024 10:00 AM EST Office Visit Hematology [place] [address] Rosalba Patel MD [facility] [place] [address] 08/07/2024 12:00 PM EST Appointment Hematology [place] [address] 08/21/2024 8:30 AM EST Appointment Hematology [place] [address] 08/21/2024 10:00 AM EST Office Visit Hematology [place] [address] Rosalba Patel MD [facility] [place] [address] 08/21/2024 11:30 AM EST Appointment Hematology and Oncology at [facility] [place] [address] documented as of this encounter Procedures Procedure [...] who have questions please contact the health sub acute care nurse that requested your imaging first. [...] contrast enhancement curve analysis was performed, using Devshop software. COMPARISON STUDIES: Compared and/or correlated with [...] contrast enhancement curve analysis was performed, using Devshop software. COMPARISON STUDIES: Compared and/or correlated with [...] patients who have questions please contactthe health sub acute care nurse that requested your imaging first. Armond Amezcua [...] mg documented in this encounter Care Teams Inventory Specialist Relationship Specialty Start Date End Date Nat Nicolas APRN [address] [place] [address] PCP - General Family Medicine 04/02/24 documented as of this encounter
--- OUTSIDE RECORDS SUMMARY | 2024-07-17 10:06 | XMS_ITS | Encounter Summary ---
[place] [address] Care Team Providers Care Linen Worker Name Role Phone Nat Nicolas APRN Primary Care Provider Reason for Visit * Diagnostic Test (Routine) - Closed Specialty Diagnoses / Procedures Referred By Laurel garrett Referred To Contact Radiology Diagnoses Malignant neoplasm of left breast in female, estrogen receptor positive, unspecified site of breast Procedures NM Bone Scan Whole Body Daily Amaral MD [facility] [place] [address] [place] [address] Referral ID Status Reason Start Date Expiration Date V isits Requested Visits Authorized [id number] Closed Specialty Service Requested 04/10/2024 10/08/2025 1 1 Encounter Details Date Type Department Care Team (Latest Contact Info) Description 04/29/2024 10:02 AM EDT - 04/29/2024 11:59 PM EDT Hospital Encounter [place] [address] Daily Amaral MD [facility] [place] [address] Discharge Disposition: Home Social History [...] AM EST Appointment Hematology [place] [address] 08/07/2024 10:00 AM EST Office Visit Hematology [place] [address] Rosalba Patel MD [facility] [place] [address] 08/07/2024 12:00 PM EST Appointment Hematology [place] [address] 08/21/2024 8:30 AM EST Appointment Hematology [place] [address] 08/21/2024 10:00 AM EST Office Visit Hematology [place] [address] Rosalba Patel MD [facility] [place] [address] 08/21/2024 11:30 AM EST Appointment Hematology [place] [address] documented as of this encounter Procedures Procedure Name Priority Date/Time Associated Diagnosis Comments NM BONE SCAN WHOLE BODY Routine 04/29/2024 10:53 AM EDT Malignant neoplasm of left breast in female, estrogen receptor positive, unspecified site of breast documented in this encounter Results * NM Bone Scan Whole Body (04/29/2024 10:53 AM EDT) WORKSTATION ID [id number] RAD Anatomical Region Laterality Modality Nuclear Medicine [...] questions please contact the health career development specialist that requested your imaging first. ? Electronically signed by: Jay Loyola MD, [facility] ([phone]), at 04/29/2024 11:33 AM Narrative 04/29/2024 11:33 [...] patients who have questions please contactthe health career development specialist that requested your imaging first. Electronically signed by: Jay Loyola MD, [facility]([phone]), at 04/29/2024 11:33 AM Daily Amaral MD [facility] ORDERABLES documented in this encounter Visit Diagnoses Not on filedocumented in this encounter Care Teams Linen Worker Relationship Specialty Start Date End Date Nat Nicolas, SALES MARKETING COORDINATOR [address] [place] [address] PCP - General Family Medicine 04/02/24 documented as of this encounter
--- OUTSIDE RECORDS SUMMARY | 2024-07-17 10:06 | XMS_ITS | Encounter Summary ---
[place] [address] Care Team Providers Care Rag Cutting Machine Feeder Name Role Phone Maria Isabel Nat Malloy APRN Primary Care Provider Encounter Details Date Type Department Care Team (Late st Contact Info) Description 04/09/2024 Patient Outreach Hematology [place] [address] Ad Coates, RN Social History Tobacco Use [...] as of this encounter Progress Notes * dA Coates, RN - 04/09/2024 7:07 PM EDT Comprehensive Breast Program (CBP) Nurse Navigator Note Martha Rodriguez is a 59 y.o. female with ER/OR+/HER2 negative left breast cancer. I met with [...] appts. related to her travel distance from [facility]. SPECIFIC TEACHIN. Breast Cancer Treatment Handbook (Genoveva Sanchez, 2021) was sent via mail. 2. She understands she will meet with a medical oncologist (possibly next week) and, possibly, a radiation oncologist ([facility]) after surgery and that [facility] will arrange these appts. as well as afollow up with Dr. Amaral post operatively. 3. Contact phone number for questions or concerns in the immediate post- operative period. 4. Comprehensive Breast Program Binder provided. 5. Post Breast Surgery Exercises handout created by physical therapists at [facility] (not reviewed). 6. Breast Cancer Treatment Process care map provided and reviewed. 7. Contact information for the general surgery clinic nurses was given and the doctor stone operator system explained. Twenty minutes was spent in education and providing support. She verbalized understanding of the plan of care and states all her questions were answered. Martha has our contact information. Pre-op MRI: 04/08/24 Referrals made today Social work Martha met with our CBP social human services assistants today. AD COATES, RN documented in this encounter Plan of Treatment Upcoming Encounters Date Type Department Care Team (Late st Contact Info) Description 08/07/2024 9:00 AM EST Appointment H[place]ology [place] [address] 08/07/2024 10:00 AM EST Office Visit Hematology [place] [address] Rosalba Patel MD [facility] [place] [address] 08/07/2024 12:00 PM EST Appointment Hematology [place] [address] 08/21/2024 8:30 AM EST Appointment H[place]ology [place] [address] 08/21/2024 10:00 AM EST Office Visit [place]ematology [place] [address] Rosalba Patel MD [facility] [place] [address] 08/21/2024 11:30 AM EST Appointment [place]ematology [place] [address] documented as of this encounter Visit Diagnoses Not on filedocumented in this encounter Care Teams Rag Cutting Machine Feeder Relationship Specialty Start Date End Date Nat Nicolas APRN [address] [place] [address] PCP - General Family Medicine 04/02/24 documented as of this encounter
--- OUTSIDE RECORDS SUMMARY | 2024-07-17 10:06 | XMS_ITS | Encounter Summary ---
Author Organization [facility] [place] [address] Care Team Providers Care Avionics Repair Technician Name Role Phone Nat Nicolas APRN Primary Care Provider Reason for Visit * Reason Comments Advice Only * Consultation (Routine) - Closed Specialty Diagnoses / Procedures Referred By Lauerl garrett Referred To Contact Hematology and Oncology Diagnoses Breast cancer Procedures NEW PATIENT Daily Amaral MD [facility] [place] [address] Rosalba Patel MD [facility] [place] [place] [address] Referral ID Status Reason Start Date Expiration Date Visits Re quested Visits Authorized [id number] Closed 04/16/2024 04/16/2025 1 1 Encounter Details Date Type Department Care Team (Late st Contact Info) Description 04/16/2024 2:00 PM EDT Office Visit Hematology [place] [address] Rosalba Patel MD [facility] [place] [address] Malignant neoplasm of lower-outer quadrant of left [...] from the original note were not included. [facility] Patient Name: Martha Rodriguez is a 59 y.o. female from [place], [place] (1 hour 10 min away). : 1965 Visit Date: 04/22/2024 PCP: Nat Nicolas APRN Breast surgical oncology: Lashay Amaral MD Radiation oncology: Referral pending Referring provider: Daily Amaral MD [facility] [place] [address] Reason for visit: Consultation was requested by Dr. Amaral for new diagnosis of breast cancer. Summary: Martha Rodriguez is a 59 y.o. 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 She presents today to establish care and discuss next steps. DIAGNOSIS: Breast cancer pathology & staging: Clinical stage: cT2NX Pathological stage: pending surgery Pathology: Invasive lobular carcinoma, grade 2, LVI-. Surgical pathology pending. Joel status: 4 abnormal nodes seen on MRI - awaiting biopsy Receptor status: ER positive (>90%, strong) NY positive (>70% strong) HER2 negative by FISH, total # signals for HER2 = 321, total # signals for CEP- 17 = 184; ratio = 1.7, Ave # HER2 signal/cell = 5.4 Oncotype DX RS: N/A Genetics: obtain records from [facility] NGS: N/A Menopausal Status: Post-menopausal [place]: [...] grade 2, LVI- ER positive (>90%, strong) NY positive (>70% strong) HER2 negative by FISH, [...] invasive lobular carcinoma of the LEFT breast, ER+NY+Her2-, who presents today to establish care. Today [...] # Left breast cancer, ILC, ER positive, NY positive, HER2 negative - Risk scoring: Awaiting [...] RTC on 04/30 for 60 minutes with MD/DATABASE MARKETING SPECIALIST to finalize treatment plan Interval History: 04/16/2024- [...] Family history of prostate cancer * Ashkenazi Judaism heritage * Personal history of known genetic [...] Us Biopsy Left 04/02/2024 Dorota Anderson MD [facility] RAD MAMMOGRAPHY Family History: Family History [...] Units Case Report Surgical Pathology Report Case: [id number] Authorizing Provider: Dorota Anderson MD Collected: 04/02/2024 0912 Ordering Location: Mammography at [facility] Received: 04/02/2024 1254 Pathologist: Keyla Rodas DO Specimen: Breast, Left, LEFT BREAST US BX Final Diagnosis A. Left breast, core needle biopsy: - Invasive lobular carcinoma, intermediate grade (modified SBR score = 7), measuring at least 14 mm. - Lymphovascular invasion not identified. at 1151 Additional Studies Estrogen Receptor (ER) immunoreactivity: Positive Cancer cells with immunostaining: >90% Stain intensity: Strong Progesterone Receptor (NY) immunoreactivity: Positive Cancer cells with immunostainin% Stain [...] The assays were performed according to the microcomputer technician's instructions using Anti-ER (SP1) and Anti-NY (16) antibodies. These tests were developed and their performance characteristics determined by [facility]. They may not have been cleared or [...] 0.2 cm-1.5 x 0.2 cm Tissue Description: Alma-white fibrofatty needle core biopsies. Sections/Processing: Entirely submitted in 1 cassette labeled A1. Ischemic time: 1 minute ajw Result Note THIS RESULT REQUIRES PHYSICIAN/KINGS FOLLOW UP Abnormal Resulting Agency [facility] Specimen Collected: 04/02/24 09:12 Last Resulted: [...] Reading Date Result Priority Dorota Anderson MD [phone] 03/10/2024 Narrative & Impression INTERPRETATION OF OUTSIDE BREAST IMAGING I have been asked to consult on this patient by Dr. Nicolas because he/she believes a review of this study may change or alter the care of this patient. STUDIES FROM: [facility] CLINICAL HISTORY: ? bx; Sending Institution [facility]; Date of exam [id number]; I believe [...] cancers. Please note: The interpretation of the [facility] Breast Imaging Radiologist subspecialist may differ from the original radiologists interpretation. This is usually not due to a deficiency of the original interpreting radiologist, rather due to the greater skill level afforded by sub-specialization in the field and/or reasonable variations in interpretations. If you have a concern regarding the D- interpretation you may contact the [facility] Breast Cultured Marble Products Maker Office at . Thank you for letting us participate in the care of this patient. If you are a health care provider and have any questions regarding this report, please contact the number below. For patients who have questions please contact the health child care aide that requested your imaging first. Electronically signed by: Dorota Anderson MD, [facility] ([phone]), at 03/10/2024 2:42 PM Component 1 mo ago WORKSTATION ID [id number] Resulting Agency [facility] Exam Ended: 03/10/24 07:30 Last Resulted: 03/10/24 [...] Reading Date Result Priority Olive Garcia MD [phone] 2533 04/08/2024 Armond Amezcua MD 04/08/2024 Narrative [...] have questions please contact the health child care aide that requested your imaging first. Component 2 wk ago WORKSTATION ID [id number] Resulting Agency [facility] Exam Ended: 04/08/24 10:00 Last Resulted: 04/08/24 16:02 Status: Final result Visible to patient: Yes (not seen) Next appt: 04/25/2024 at 10:35 AM in Lab ([facility]) Dx: Malignant neoplasm of lower-outer cole... 0 Result Notes Details Reading Physician Reading Date Result Priority Olive Garcia MD [phone] 2533 04/10/2024 Armond Amezcua MD 04/10/2024 Narrative & Impression EXAMINATION: MRI ADDITIONAL VIEW - BREAST CLINICAL INDICATION: new breast cancer - repeat imaging. Left breast ILC, ER-positive NY positive and HER-2 negative TECHNIQUE: Multiplanar sequences were obtained pre- and post- Dotarem enhancement, to include SPGR weighted dynamic run-off and subtraction sequences obtained after the intravenous administration of 16 ccs of Dotarem. Computer algorithm analysis for lesion detection and kinetic contrast enhancement curve analysis was performed, using PopUp software. COMPARISON STUDIES: Compared and/or correlated with [...] have questions please contact the health child care aide that requested your imaging first. Component 13 d ago WORKSTATION ID [id number] Resulting Agency [facility] Exam Ended: 04/09/24 14:20 Last Resulted: 04/10/24 12:28 Annual mammogram: Per surgery; not yet due. Schedule pending surgical date. Imaging: CT C/A/P with contrast: scheduled 04/25 Bone scan: scheduled 10/[address]: N/A DEXA scan: Pending Cardiac oncology: EKG: N/A TTE: Pending Counseling: Total time spent: 120 minutes with > 50% spend in discussion of above, [id number] time and coordination of care with the [...] concerns. Rylie Patel MD Medical Oncology [facility] Donor [employer] Creative + Content Marketing, [facility], [facility] Office Cancer.[facility] documented in this encounter Plan of Treatment Upcoming Encounters Date Type Department Care Team (Late st Contact Info) Description 08/07/2024 9:00 AM EST Appointment Hematology [place] [address] 08/07/2024 10:00 AM EST Office Visit Hematology [place] [address] Rosalba Patel MD [facility] [place] [address] 08/07/2024 12:00 PM EST Appointment Hematology [place] [address] 08/21/2024 8:30 AM EST Appointment Hematology [place] [address] 08/21/2024 10:00 AM EST Office Visit Hematology [place] [address] Rosalba Patel MD [facility] [place] [place] [address] 08/21/2024 11:30 AM EST Appointment Hematology [place] [address] documented as of this encounter Visit Diagnoses Diagnosis Malignant neoplasm of lower-outer quadrant of left breast of female, estrogen receptor positive- Primary H/O insulin dependent diabetes mellitus Personal history of other endocrine, metabolic, and immunity disorders documented in this encounter Care Teams Avionics Repair Technician Relationship Specialty Start Date End Date Nat Nicolas APRN [address] [place] [address] PCP - General Family Medicine 04/02/24 documented as of this encounter
--- OUTSIDE RECORDS SUMMARY | 2024-07-17 10:06 | XMS_ITS | Encounter Summary ---
[place] [address] Care Team Providers Care Financial Assistance Advisor Name Role Phone Maria Isabel Nat Malloy APRN Primary Care Provider Reason for Visit * Reason Onset Date Comments Letter Request From Patient 04/24/2024 Encounter Details Date Type Department Care Team (Late st Contact Info) Description 04/24/2024 Notes Only [place]ology [place] [phone] Juani Sosa, RN Letter Request From Patient [...] signature. Patient requests letter be sent to [email or web address] documented in this encounter Plan of Treatment Upcoming Encounters Date Type Department Care Team (Late st Contact Info) Description 08/07/2024 9:00 AM EST Appointment H[place]ology [place] [address] 08/07/2024 10:00 AM EST Office Visit Hematology [place] [address] Rosalba Patel MD [facility] [place] [address] 08/07/2024 12:00 PM EST Appointment H[place]ology [place] [address] 08/21/2024 8:30 AM EST Appointment Hematology [place] [address] 08/21/2024 10:00 AM EST Office Visit [place]ology [place] [address] Rosalba Patel MD [facility] [place] [address] 08/21/2024 11:30 AM EST Appointment [place]ology [place] [address] documented as of this encounter Visit Diagnoses Not on filedocumented in this encounter Care Teams Financial Assistance Advisor Relationship Specialty Start Date End Date Nat Nicolas APRN [address] [place] [address] (work) PCP - General Family Medicine 04/02/24 documented as of this encounter
--- OUTSIDE RECORDS SUMMARY | 2024-07-17 10:06 | XMS_ITS | Encounter Summary ---
Author Organization [facility] [place] [address] Care Team Providers Care Finishing Machine Tender Name Role Phone Carl Garvey DNP Primary Care Provider [phone] Encounter Details Date Type Department Care Team (Late Contact Info) Description 03/12/2024 Tele[place] [phone] Didi Loredo, RN Social History Tobacco Use [...] AM EST Appointment Hematology [place] [address] 08/07/2024 10:00 AM EST Office Visit Hematology [place] [address] Rosalba Patel MD [facility] [place] [address] 08/07/2024 12:00 PM EST Appointment Hematology [place] [address] 08/21/2024 8:30 AM EST Appointment Hematology [place] [address] 08/21/2024 10:00 AM EST Office Visit Hematology [place] [address] Rosalba Patel MD [facility] [place] [address] 08/21/2024 11:30 AM EST Appointment Hematology [place] [address] documented as of this encounter Visit Diagnoses Not on filedocumented in this encounter Care Teams Finishing Machine Tender Relationship Specialty Start Date End Date Carl Garvey DNP [facility] [address] [place] [address] PCP - General Family Medicine 05/03/20 04/01/24 documented as of this encounter
--- OUTSIDE RECORDS SUMMARY | 2024-07-17 10:07 | XMS_ITS | Encounter Summary ---
[place] [address] Care Team Providers Care Administrative Judge Name Role Phone Nat Baker MD Primary Care Provider [phone] Encounter Details Date Type Department Care Team (Late Contact Info) Description 04/30/2014 Orders Only Radiology and Cardiology Results [address] [place] [phone] Apd Conversion, Results Provider, Social History Tobacco [...] AM EST Appointment Hematology [place] [address] 08/07/2024 10:00 AM EST Office Visit Hematology [place] [address] Rosalba Patel MD [facility] [place] [address] 08/07/2024 12:00 PM EST Appointment Hematology [place] [address] 08/21/2024 8:30 AM EST Appointment Hematology [place] [address] 08/21/2024 10:00 AM EST Office Visit Hematology [place] [address] Rosalba Patel MD [facility] [place] [address] 08/21/2024 11:30 AM EST Appointment Hematology [place] [address] documented as of this encounter Procedures Procedure Name Priority Date/Time Associated Diagnosis Comments VITAMIN B12 Routine 04/30/2014 documented in this encounter Results * (ABNORMAL) Vitamin B12 (04/30/2014) Vitamin B12 782(Installation And Repair Technician al Lab) 211 - 617 DORA JONES CONVERSION 04/30/2014 Results Provider Apd Conversion MD GUILLERMO VINSON ORDERABLES DORA JONES CONVERSION documented in this encounter Visit Diagnoses Not on filedocumented in this encounter Care Teams Administrative Judge Relationship Specialty Start Date End Date Nat Baker MD [address] [place] [place] [address] PCP - General 11/11/18 02/27/19 documented as of this encounter
--- OUTSIDE RECORDS SUMMARY | 2024-07-17 10:07 | XMS_ITS | Encounter Summary ---
Author Organization [facility] [place] [address] Care Team Providers Care Pulper Tender Name Role Phone Nat Baker MD Primary Care Provider [phone] Encounter Details Date Type Department Care Team (Late Contact Info) Description 10/17/2019 12:05 AM EDT Ancillary Procedure Radiology Library at [facility] [place] [address] Nat Nicolas, DIGITAL MARKETING INTERN [address] [place] [address] Social History Tobacco Use Types Packs/Day Years [...] AM EST Appointment Hematology [place] [address] 08/07/2024 10:00 AM EST Office Visit Hematology [place] [address] Rosalba Patel MD [facility] [place] [address] 08/07/2024 12:00 PM EST Appointment Hematology [place] [address] 08/21/2024 8:30 AM EST Appointment Hematology [place] [address] 08/21/2024 10:00 AM EST Office Visit Hematology [place] [address] Rosalba Patel MD [facility] [place] [address] 08/21/2024 11:30 AM EST Appointment Hematology [place] [address] documented as of this encounter Procedures Procedure Name Priority Date/Time Associated Diagnosis Comments FILM LIBRARY-STORAGE ONLY US BREAST Routine 10/17/2019 12:05 AM EDT documented in this encounter Results * Film Library Storage Only US Breast (10/17/2019 12:05 AM EDT) Narrative [facility] - 03/10/2024 7:23 AM EDT This exam is auto-finalizing. It's purpose is for storage only. Nat Nicolas DIGITAL MARKETING INTERN IMG FILM LAKSHMI RY ORDERABLES [place], [place] documented in this encounter Visit Diagnoses Not on filedocumented in this encounter Care Teams Pulper Tender Relationship Specialty Start Date End Date Nat Baker MD [address] [place] [address] PCP - General Family Medicine 02/28/19 05/02/20 documented as of this encounter
--- OUTSIDE RECORDS SUMMARY | 2024-07-17 10:07 | XMS_ITS | Encounter Summary ---
[place] [address] Care Team Providers Care Skidder Name Role Phone Nat Baker MD Primary Care Provider [phone] Encounter Details Date Type Department Care Team (Late Contact Info) Description 04/30/2014 Orders Only Radiology and Cardiology Results [address] [place] [phone] Apd Conversion, Results Provider, Social History Tobacco [...] AM EST Appointment Hematology [place] [address] 08/07/2024 10:00 AM EST Office Visit Hematology [place] [address] Rosalba Patel MD [facility] [place] [address] 08/07/2024 12:00 PM EST Appointment Hematology [place] [address] 08/21/2024 8:30 AM EST Appointment Hematology [place] [address] 08/21/2024 10:00 AM EST Office Visit Hematology [place] [address] Rosalba Patel MD [facility] [place] [address] 08/21/2024 11:30 AM EST Appointment Hematology [place] [address] documented as of this encounter Procedures Procedure Name Priority Date/Time Associated Diagnosis Comments TSH Routine 04/30/2014 documented in this encounter Results * (ABNORMAL) TSH (04/30/2014) Thyroid Stimulating Hormone 1.040(Ext ernal Lab) 0.358 - 3.74 DORA JONES CONVERSION 04/30/2014 Results Provider Apd Conversion MD GUILLERMO VINSON ORDERABLES DORA JONES CONVERSION documented in this encounter Visit Diagnoses Not on filedocumented in this encounter Care Teams Skidder Relationship Specialty Start Date End Date Nat Baker MD [address] [place] [address] PCP - General 11/11/18 02/27/19 documented as of this encounter
--- OUTSIDE RECORDS SUMMARY | 2024-07-17 10:07 | XMS_ITS | Encounter Summary ---
Author Organization [facility] [address] Care Team Providers Care Milk Bottling Machine Operator Name Role Phone Nat Baker MD Primary Care Provider [phone] Encounter Details Date Type Department Care Team (Late Contact Info) Description 04/20/2014 Interpretation Only Radiology [address] [place] [address] [place] [address] Unknown None Social History Tobacco Use Types [...] AM EST Appointment Hematology [place] [address] 08/07/2024 10:00 AM EST Office Visit Hematology [place] [address] Rosalba Patel MD [facility] [place] [address] 08/07/2024 12:00 PM EST Appointment Hematology [place] [address] 08/21/2024 8:30 AM EST Appointment Hematology [place] [address] 08/21/2024 10:00 AM EST Office Visit Hematology [place] [address] Rosalba Patel MD [facility] [place] [address] 08/21/2024 11:30 AM EST Appointment Hematology [place] [address] documented as of this encounter Procedures Procedure Name Priority Date/Time Associated Diagnosis Comments XR CHEST PA AND LATERAL Routine 04/20/2014 9:20 AM EDT documented in this encounter Results * XR Chest PA & Lateral (Generic) (04/20/2014 9:20 AM EDT) Anatomical Region Laterality Modality Chest N/A Radiographic Re ging 04/20/2014 9:20 AM EDT Narrative 04/20/2014 9:20 AM EDT APD Historical Result Principal It Solutions Architect: ??ADARSH ??CHRISSY CHEST - TWO VIEWS: HISTORY: [...] No acute cardiopulmonary abnormality. Adarsh Nascimento MD NILE/bunny [id number] CC: Procedure Note Unknown - 01/20/2019 APD Historical Result Principal It Solutions Architect: ADARSH NASCIMENTO CHEST - TWO VIEWS: HISTORY: [...] No acute cardiopulmonary abnormality. Adarsh Nascimento MD NILE/bunny [id number] CC: Unknown IMG DX ORDERABLES documented in this encounter Visit Diagnoses Not on filedocumented in this encounter Care Teams Milk Bottling Machine Operator Relationship Specialty Start Date End Date Nat Baker MD [address] [place] [address] PCP - General 11/11/18 02/27/19 documented as of this encounter
--- OUTSIDE RECORDS SUMMARY | 2024-07-17 10:07 | XMS_ITS | Encounter Summary ---
Author Organization [facility] [place] [address] Care Team Providers Care Vacuum Extractor Operator Name Role Phone Carl Garvey RUDDY Primary Care Provider [phone] Encounter Details Date Type Department Care Team (Late Contact Info) Description 05/06/2020 Telephone [place] [address] Ruthann Xie Social History Tobacco Use Types [...] EST Appointment Hematology [place] [address] 08/07/2024 10:00 AM EST Office Visit Hematology [place] [address] Roaslba Patel MD [facility] [place] [address] 08/07/2024 12:00 PM EST Appointment Hematology [place] [address] 08/21/2024 8:30 AM EST Appointment Hematology [place] [address] 08/21/2024 10:00 AM EST Office Visit Hematology [place] [address] Rosalba Patel MD [facility] [place] [address] 08/21/2024 11:30 AM EST Appointment Hematology [place] [address] documented as of this encounter Visit Diagnoses Not on filedocumented in this encounter Care Teams Vacuum Extractor Operator Relationship Specialty Start Date End Date Carl Garvey DNP [address] [place] [address] PCP - General Family Medicine 05/03/20 04/01/24 documented as of this encounter
--- OUTSIDE RECORDS SUMMARY | 2024-07-17 10:07 | XMS_ITS | Encounter Summary ---
Author Organization [facility] [place] [address] Care Team Providers Care Sausage Cutter Name Role Phone Nat Baker MD Primary Care Provider [phone] Encounter Details Date Type Department Care Team (Late Contact Info) Description 09/11/2013 Interpretation Only Radiology [address] [place] [address] [place] [address] Unknown None Social History Tobacco Use Types [...] AM EST Appointment Hematology [place] [address] 08/07/2024 10:00 AM EST Office Visit Hematology [place] [address] Rosalba Patel MD [facility] [place] [address] 08/07/2024 12:00 PM EST Appointment Hematology [place] [address] 08/21/2024 8:30 AM EST Appointment Hematology [place] [address] 08/21/2024 10:00 AM EST Office Visit Hematology [place] [address] Rosalba Patel MD [facility] [place] [address] 08/21/2024 11:30 AM EST Appointment Hematology [place] [address] documented as of this encounter Procedures Procedure [...] 9:14 AM EST APD Historical Result Principal Railroad Commissioner: ??JUDY ??CHRISTIANE CERVICAL SPINE: INDICATION: ??Neck pain and [...] radicular symptoms, MRI may be beneficial. Judy Grande DO Reji [id number] CC: Procedure Note Unknown - 01/20/2019 APD Historical Result Principal Railroad Commissioner: JUDY GRANDE CERVICAL SPINE: INDICATION: Neck pain [...] MRI may be beneficial. Judy Grande DO Reji [id number] CC: Unknown IMG DX ORDERABLES documented in this encounter Visit Diagnoses Not on filedocumented in this encounter Care Teams Sausage Cutter Relationship Specialty Start Date End Date Nat Baker MD [address] [place] [address] PCP - General 11/11/18 02/27/19 documented as of this encounter
--- OUTSIDE RECORDS SUMMARY | 2024-07-17 10:07 | XMS_ITS | Encounter Summary ---
[place] [address] Care Team Providers Care Bobbin Cleaner Name Role Phone Carl Garvey RUDDY Primary Care Provider [phone] Encounter Details Date Type Department Care Team (Late st Contact Info) Description 03/07/2024 Notes Only [place]ology [place] [address] Ebony Becerril Social History Tobacco Use Types [...] 03/07/2024 10:23 AM EDT Martha Rodriguez 1965 [id number] Referring provider: Nat Nicolas APRN Date of Referral: 03.07.2024 Please review outside breast imaging dated: 03.06.2024 Reason for exam and clinical history: Left breast mass, nipple retraction Category: 5 Questions to be answered: ? BX Sending Institution: [place] Patient would like treatment at: Call pt at: Mobile Not on file. documented in this encounter Plan of Treatment Upcoming Encounters Date Type Department Care Team (Late st Contact Info) Description 08/07/2024 9:00 AM EST Appointment [place] [address] 08/07/2024 10:00 AM EST Office Visit [place]ematology [place] [address] Rosalba Patel MD [facility] [place] [address] 08/07/2024 12:00 PM EST Appointment H[place]ology [place] [address] 08/21/2024 8:30 AM EST Appointment Hematology [place] [address] 08/21/2024 10:00 AM EST Office Visit [place] [address] Rosalba Patel MD [facility] [place] [address] 08/21/2024 11:30 AM EST Appointment [place]ology [place] [address] documented as of this encounter Visit Diagnoses Not on filedocumented in this encounter Care Teams Bobbin Cleaner Relationship Specialty Start Date End Date Carl Garvey DNP [facility] [address] [place] [address] PCP - General Family Medicine 05/03/20 04/01/24 documented as of this encounter
--- OUTSIDE RECORDS SUMMARY | 2024-07-17 10:07 | XMS_ITS | Encounter Summary ---
Author Organization [facility] [place] [address] Care Team Providers Care Edge Cutting Machine Operator Name Role Phone Nat Baker MD Primary Care Provider [phone] Encounter Details Date Type Department Care Team (Late st Contact Info) Description 10/06/2019 Ancillary Procedure Radiology Library at [facility] [place] [address] Nat Nicolas, ASSOCIATE PROFESSOR OF SURGERY [address] [place] [address] Social History Tobacco Use Types Packs/Day Years [...] AM EST Appointment Hematology [place] [address] 08/07/2024 10:00 AM EST Office Visit Hematology [place] [address] Rosalba Patel MD [facility] [place] [address] 08/07/2024 12:00 PM EST Appointment Hematology [place] [address] 08/21/2024 8:30 AM EST Appointment H[place]ology [place] [address] 08/21/2024 10:00 AM EST Office Visit [place]ematology [place] [address] Rosalba Patel MD [facility] [place] [address] 08/21/2024 11:30 AM EST Appointment Hematology [place] [address] documented as of this encounter Procedures Procedure Name Priority Date/Time Associated Diagnosis Comments FILM LIBRARY STORAGE ONLY MAMMO Routine 10/06/2019 12:00 AM EDT documented in this encounter Results * Film Library- Storage Only Mammo (10/06/2019 12:00 AM EDT) Narrative [facility] - 03/10/2024 7:23 AM EDT This exam is auto-finalizing. It's purpose is for storage only. Nat Nicolas ASSOCIATE PROFESSOR OF SURGERY IMG FILM LAKSHMI RY ORDERABLES [place], [place] documented in this encounter Visit Diagnoses Not on filedocumented in this encounter Care Teams Edge Cutting Machine Operator Relationship Specialty Start Date End Date Nat Baker MD [address] [place] [address] PCP - General Family Medicine 02/28/19 05/02/20 documented as of this encounter
--- OUTSIDE RECORDS SUMMARY | 2024-07-17 10:07 | XMS_ITS | Encounter Summary ---
Author Organization [facility] [place] [address] Care Team Providers Care Associate Professor Of History Name Role Phone Carl Garvey DNP Primary Care Provider [phone] Encounter Details Date Type Department Care Team (Late st Contact Info) Description 01/19/2021 Ancillary Procedure Radiology Library at [facility] [place] [address] Nat Nicolas, BINDERY MACHINE TENDER [address] [place] [address] Social History Tobacco Use Types Packs/Day Years [...] AM EST Appointment Hematology [place] [address] 08/07/2024 10:00 AM EST Office Visit Hematology [place] [address] Rosalba Patel MD [facility] [place] [address] 08/07/2024 12:00 PM EST Appointment Hematology [place] [address] 08/21/2024 8:30 AM EST Appointment Hematology [place] [address] 08/21/2024 10:00 AM EST Office Visit Hematology [place] [address] Rosalba Patel MD [facility] [place] [address] 08/21/2024 11:30 AM EST Appointment Hematology [place] [address] documented as of this encounter Procedures Procedure Name Priority Date/Time Associated Diagnosis Comments FILM LIBRARY STORAGE ONLY MAMMO Routine 01/19/2021 12:00 AM EDT documented in this encounter Results * Film Library- Storage Only Mammo (01/19/2021 12:00 AM EDT) Narrative [facility] - 03/10/2024 7:23 AM EDT This exam is auto-finalizing. It's purpose is for storage only. Nat Nicolas BINDERY MACHINE TENDER IMG FILM LAKSHMI RY ORDERABLES [place], [place] documented in this encounter Visit Diagnoses Not on filedocumented in this encounter Care Teams Associate Professor Of History Relationship Specialty Start Date End Date Carl Garvey DNP [address] [place] [address] PCP - General Family Medicine 05/03/20 04/01/24 documented as of this encounter
--- OUTSIDE RECORDS SUMMARY | 2024-07-17 10:07 | XMS_ITS | Encounter Summary ---
[place] [address] Care Team Providers Care Biomedical Engineering Director Name Role Phone Nat Baker MD Primary Care Provider [phone] Encounter Details Date Type Department Care Team (Late Contact Info) Description 11/29/2018 10:55 PM EDT Ancillary Procedure Radiology at [facility] [address] [place] [address] Nat Baker MD [address] [facility] [place] [address] Social History Tobacco Use Types Packs/Day Years [...] AM EST Appointment Hematology [place] [address] 08/07/2024 10:00 AM EST Office Visit Hematology [place] [address] Rosalba Patel MD [facility] [place] [address] 08/07/2024 12:00 PM EST Appointment Hematology [place] [address] 08/21/2024 8:30 AM EST Appointment Hematology [place] [address] 08/21/2024 10:00 AM EST Office Visit Hematology [place] [address] Rosalba Patel MD [facility] [place] [address] 08/21/2024 11:30 AM EST Appointment Hematology [place] [address] documented as of this encounter Procedures Procedure Name Priority Date/Time Associated Diagnosis Comments FILM LIBRARY STORAGE ONLY CT HEAD AND SPINE Routine 11/29/2018 10:51 PM EDT documented in this encounter Results * Film Library- Storage Only CT Head And Spine (11/29/2018 10:51 PM EDT) Narrative [facility] - 11/29/2018 10:51 PM EDT This exam is auto-finalizing. It's purpose is for storage only. Nat Baker MD [facility] FILM LIBRARY ORD ERABLES [place], [place] documented in this encounter Visit Diagnoses Not on filedocumented in this encounter Care Teams Biomedical Engineering Director Relationship Specialty Start Date End Date Nat Baker MD [address] [place] [place] [address] PCP - General 11/11/18 02/27/19 documented as of this encounter
--- OUTSIDE RECORDS SUMMARY | 2024-07-17 10:07 | XMS_ITS | Encounter Summary ---
[place] [address] Care Team Providers Care Pulp House Supervisor Name Role Phone Nat Baker MD Primary Care Provider [phone] Encounter Details Date Type Department Care Team (Late Contact Info) Description 04/28/2014 Abstract Cherelle Jones Conversion Results [address] [place] [address] Apd Conversion, Flowsheet Provider, Social History Tobacco [...] AM EST Appointment H[place]ology [place] [address] 08/07/2024 10:00 AM EST Office Visit Hematology [place] [address] Rosalba Patel MD [facility] [place] [address] 08/07/2024 12:00 PM EST Appointment Hematology [place] [address] 08/21/2024 8:30 AM EST Appointment Hematology [place] [address] 08/21/2024 10:00 AM EST Office Visit [place]ematology [place] [address] Rosalba Patel MD [facility] [place] [address] 08/21/2024 11:30 AM EST Appointment Hematology [place] [address] documented as of this encounter Visit Diagnoses Not on filedocumented in this encounter Care Teams Pulp House Supervisor Relationship Specialty Start Date End Date Nat Baker MD [address] [place] [address] PCP - General 11/11/18 02/27/19 documented as of this encounter
--- OUTSIDE RECORDS SUMMARY | 2024-07-17 10:07 | XMS_ITS | Encounter Summary ---
Author Organization [facility] Address [facility] [place] [address] Care Team Providers Care Supervisor Reinforced Steel Placing Name Role Phone Carl Garvey DNP Primary Care Provider Reason for Visit * Reason Comments Urinary Frequency ? UTI or yeast Encounter Details Date Type Department Care Team (Late st Contact Info) Description 02/07/2022 7:58 AM EDT - 02/07/2022 10:15 AM EDT Emergency Emergency Services at [address] [place] [address] Carter Murphy MD [facility] [place] [address] Hyperglycemia; Hypertension, unspecified type; Vaginal pain Discharge [...] prescribed. Your prescriptions have been sent to [facility] in [place]. Please pick them up today and start [...] She was seen one week ago at [facility] and was told she had a [...] AM EST Appointment Hematology [place] [address] 08/07/2024 10:00 AM EST Office Visit [place]ematology [place] [address] Rosalba Patel MD [facility] [place] [address] 08/07/2024 12:00 PM EST Appointment Hematology [place] [address] 08/21/2024 8:30 AM EST Appointment Hematology [place] [address] 08/21/2024 10:00 AM EST Office Visit [place]ematology [place] [address] Rosalba Patel MD [facility] [place] [address] 08/21/2024 11:30 AM EST Appointment Hematology [place] [address] documented as of this encounter Procedures Procedure [...] AM EDT) Yeast Culture Rare Kaye albicans(A) [facility] Organism Akye albicans(A) [facility] Vaginal 02/07/2022 8:27 AM EDT 02/07/2022 11:58 AM EDT Narrative Resulting Agency Comment Spec In Lab Carter Murphy MD MICROBIOLOGY - GENER AL ORDERABLES Performing Organization Address City/[facility]/ZIP Co de Phone Number [facility] [place] [address] * (ABNORMAL) POCT Glucose (02/07/2022 8:23 AM EDT) Glucose, POC 428(H) 65 - 199 mg/dL [facility] Comment: Supplemental ranges: <140 mg/dL before meals <180 mg/dL all other times of the day Blood 02/07/2022 8:23 AM EDT 02/07/2022 8:23 AM EDT Carter Murphy MD POINT OF CARE TEST O RDERABLES Performing Organization Address City/[facility]/ZIP Co de Phone Number [facility] [address] [place] [address] * (ABNORMAL) Urinalysis Microscopic Exam (02/07/2022 7:58 AM EDT) RBC, Urine 6(H) 0 - 4 /HPF [facility] WBC, Urine 2 0 - 5 /HPF [facility] Bacteria, Urine Few(A) None /HPF [facility] Budding Yeast, Urine Few(A) None /HPF LABORATORY Squamous Epithelial Cells Raw Data, Urine 4 <=4 /HPF [facility] Transitional Epithelial Cells, Urine <1 <=1 /HPF LABORATORY Clean Catch Urine 02/07/2022 7:58 AM EDT 02/07/2022 8:15 AM EDT Narrative Resulting Agency Comment Spec In Lab Krysten Frey MD URINE ORDERABLES Performing Organization Address City/State/[facility] Co de Phone Number LABORATORY [address] [place] [address] * (ABNORMAL) Urinalysis with reflex Culture (02/07/2022 [...] Appearance, Urine Dipstick Clear Clear LABORATORY Specific [place] Urine Automated 1.010 1.006 - 1.030 LABORATORY Color, Urine Dipstick Yellow Yellow LABORATORY Reflex to Culture No LABORATORY Clean Catch Urine 02/07/2022 7:58 AM EDT 02/07/2022 8:15 AM EDT Narrative Resulting Agency Comment Spec In Lab Carter Murphy MD URINE ORDERABLES LABORATORY [address] [place] [address] documented in this encounter Visit Diagnoses Diagnosis [...] RN) documented in this encounter Care Teams Supervisor Reinforced Steel Placing Relationship Specialty Start Date End Date Carl Garvey DNP [facility] [address] [place] [address] PCP - General Family Medicine 05/03/20 04/01/24 documented as of this encounter
--- OUTSIDE RECORDS SUMMARY | 2024-07-17 10:07 | XMS_ITS | Encounter Summary ---
Author Organization [facility] [place] [address] Care Team Providers Care Wire Stripper Name Role Phone Carl Garvey DNP Primary Care Provider [phone] Encounter Details Date Type Department Care Team (Late st Contact Info) Description 07/15/2023 Notes [place] [address] Bethanie Candelaria MD [facility] [place] [place] [address] Social History Tobacco Use Types Packs/Day Years [...] by Transfer Center by Dr. Lizarraga at [place] on 07/15 regarding Martha Rodriguez. Martha Rodriguez [...] for the patient to continue care at [facility]. We reviewed for any clinical changes, or [...] AM EST Appointment H[place] [address] 08/07/2024 10:00 AM EST Office Visit [place]ology [place] [address] Rosalba Patel MD [facility] [place] [address] 08/07/2024 12:00 PM EST Appointment Hematology [place] [address] 08/21/2024 8:30 AM EST Appointment H[place] [address] 08/21/2024 10:00 AM EST Office Visit [place] [address] Rosalba Patel MD [facility] [place] [address] 08/21/2024 11:30 AM EST Appointment Hematology [place] [address] documented as of this encounter Visit Diagnoses Not on filedocumented in this encounter Care Teams Wire Stripper Relationship Specialty Start Date End Date Carl Garvey DNP [address] [place] [address] PCP - General Family Medicine 05/03/20 04/01/24 documented as of this encounter
--- OUTSIDE RECORDS SUMMARY | 2024-07-17 10:07 | XMS_ITS | Encounter Summary ---
[place] [address] Care Team Providers Care Agriculture Intern Name Role Phone Nat Baker MD Primary Care Provider [phone] Reason for Visit * Reason Comments Shoulder Pain Encounter Details Date Type Department Care Team (Late st Contact Info) Description 01/24/2015 11:12 AM EDT - 01/24/2015 1:04 PM EDT [place] [address] Orville Martinez MD [facility] [place] [address] Osteoarthritis of right shoulder, unspecified osteoarthritis type [...] from the original note were not included. [facility] Osteoarthritis: After Your Visit Your Care Instructions [...] your doctor if you can take an [id number]-[id number] medicine. When should you call for help? [...] more? Visit our health information library at [email or web address] You can also view health information on Se[employer], your personal patient account. Log in or sign up today. Enter U459 in the search box to learn more about Osteoarthritis: After Your Visit. ?? [id number] [employer], [employer]. Care instructions adapted under license by [facility]. This care instruction is for use with your licensed healthcare professional. If you have questions about a medical condition or this instruction, always ask your healthcare professional. [employer] disclaims any warranty or liability for your use of this information. 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 Reports right shoulder pain that has flaired [...] use of thatjoint. 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 Distal CSM intact. documented in this encounter Plan of Treatment Upcoming Encounters Date Type Department Care Team (Late st Contact Info) Description 08/07/2024 9:00 AM EST Appointment Hematology [place] [address] 08/07/2024 10:00 AM EST Office Visit Hematology [place] [address] Rosalba Patel MD [facility] [place] [address] 08/07/2024 12:00 PM EST Appointment Hematology [place] [address] 08/21/2024 8:30 AM EST Appointment Hematology [place] [address] 08/21/2024 10:00 AM EST Office Visit Hematology [place] [address] Rosalba Patel MD [facility] [place] [address] 08/21/2024 11:30 AM EST Appointment Hematology [place] [address] documented as of this encounter Procedures Procedure [...] type documented in this encounter Care Teams Agriculture Intern Relationship Specialty Start Date End Date Nat Baker [place] [address] PCP - General 03/30/13 11/10/18 documented as of this encounter
--- OUTSIDE RECORDS SUMMARY | 2024-07-17 10:07 | XMS_ITS | Encounter Summary ---
[place] [address] Care Team Providers Care Annual Giving Manager Name Role Phone Nat Baker MD Primary Care Provider [phone] Encounter Details Date Type Department Care Team (Late Contact Info) Description 04/30/2014 Orders Only Radiology and Cardiology Results [address] [place] [id number] Apd Conversion, Results Provider, Social History Tobacco [...] AM EST Appointment Hematology [place] [address] 08/07/2024 10:00 AM EST Office Visit [place]ology [place] [address] Rosalba Patel MD [facility] [place] [address] 08/07/2024 12:00 PM EST Appointment Hematology [place] [address] 08/21/2024 8:30 AM EST Appointment Hematology [place] [address] 08/21/2024 10:00 AM EST Office Visit [place]ematology [place] [address] Rosalba Patel MD [facility] [place] [address] 08/21/2024 11:30 AM EST Appointment Hematology [place] [address] documented as of this encounter Procedures Procedure Name Priority Date/Time Associated Diagnosis Comments HEMOGLOBIN A1C Routine 04/30/2014 documented in this encounter Results * (ABNORMAL) Hemoglobin A1c (04/30/2014) Estimated Average Glucose 148.5(ExtH ) 82.5 - 116.9 DORA ARRIAGA DAY CONVERSION Hemoglobin A1c 6.8(ExtH) 4.5 - 6.2 DORA ARRIAGA DAY CONVERSION 04/30/2014 Results Provider Apd Conversion MD GUILLERMO VINSON ORDERABLES DORA JONES CONVERSION documented in this encounter Visit Diagnoses Not on filedocumented in this encounter Care Teams Annual Giving Manager Relationship Specialty Start Date End Date Nat Baker MD [address] [place] [place] [address] PCP - General 11/11/18 02/27/19 documented as of this encounter
--- OUTSIDE RECORDS SUMMARY | 2024-07-17 10:07 | XMS_ITS | Encounter Summary ---
[place] [address] Care Team Providers Care Laboratory Apparatus Glass Blower Name Role Phone Nat Baker MD Primary Care Provider [phone] Encounter Details Date Type Department Care Team (Late Contact Info) Description 04/07/2014 Abstract Cherelle Jones Conversion Results [address] [place] [address] Apd Conversion, Flowsheet Provider, Social History Tobacco [...] AM EST Appointment Hematology [place] [address] 08/07/2024 10:00 AM EST Office Visit Hematology [place] [address] Rosalba Ptael MD [facility] [place] [address] 08/07/2024 12:00 PM EST Appointment Hematology [place] [address] 08/21/2024 8:30 AM EST Appointment Hematology [place] [address] 08/21/2024 10:00 AM EST Office Visit Hematology [place] [address] Rosalba Patel MD [facility] [place] [address] 08/21/2024 11:30 AM EST Appointment Hematology [place] [address] documented as of this encounter Visit Diagnoses Not on filedocumented in this encounter Care Teams Laboratory Apparatus Glass Blower Relationship Specialty Start Date End Date Nat Baker MD [address] [place] [place] [address] PCP - General 11/11/18 02/27/19 documented as of this encounter
--- OUTSIDE RECORDS SUMMARY | 2024-07-17 10:07 | XMS_ITS | Encounter Summary ---
Author Organization [facility] [place] [address] Care Team Providers Care Roll Filler Name Role Phone Nat Baker MD Primary Care Provider [phone] Encounter Details Date Type Department Care Team (Late st Contact Info) Description 10/17/2019 Ancillary Procedure Radiology Library at [facility] [place] [address] Nat Nicolas, CANDY PULLER [address] [place] [address] Social History Tobacco Use Types Packs/Day Years [...] AM EST Appointment Hematology [place] [address] 08/07/2024 10:00 AM EST Office Visit Hematology [place] [address] Rosalba Patel MD [facility] [place] [address] 08/07/2024 12:00 PM EST Appointment Hematology [place] [address] 08/21/2024 8:30 AM EST Appointment Hematology [place] [address] 08/21/2024 10:00 AM EST Office Visit Hematology [place] [address] Rosalba Patel MD [facility] [place] [address] 08/21/2024 11:30 AM EST Appointment Hematology [place] [address] documented as of this encounter Procedures Procedure Name Priority Date/Time Associated Diagnosis Comments FILM LIBRARY STORAGE ONLY MAMMO Routine 10/17/2019 12:00 AM EDT documented in this encounter Results * Film Library- Storage Only Mammo (10/17/2019 12:00 AM EDT) Narrative [facility] - 03/10/2024 7:23 AM EDT This exam is auto-finalizing. It's purpose is for storage only. Nat Nicolas CANDY PULLER IMG FILM LAKSHMI RY ORDERABLES [place], [place] documented in this encounter Visit Diagnoses Not on filedocumented in this encounter Care Teams Roll Filler Relationship Specialty Start Date End Date Nat Baker MD [address] [place] [address] PCP - General Family Medicine 02/28/19 05/02/20 documented as of this encounter
--- OUTSIDE RECORDS SUMMARY | 2024-07-17 10:07 | XMS_ITS | Encounter Summary ---
[place] [address] Care Team Providers Care Bridge Maintainer Name Role Phone Nat Baker MD Primary Care Provider [phone] Reason for Visit * Reason Comments Cough Encounter Details Date Type Department Care Team (Late st Contact Info) Description 04/03/2015 12:15 PM EDT - 04/03/2015 2:50 PM EDT Emergency [place] [address] Dorian Brooke MD [facility] DR [place] [address] Acute URI Discharge Disposition: Home Social History [...] from the original note were not included. [facility] Upper Respiratory Infection (Cold): After Your [...] include drinking lots of fluids and taking pdvq-jyc-pogfcgm pain medicine. You will probably feel better [...] of fluids you drink. ?? Take an ktry-gmv-vtdguub pain medicine, such as acetaminophen (Tylenol), ibuprofen [...] health problems. ?? Be careful when taking sirk-igy-qrqmwcg cold or flu medicines and Tylenol at [...] more? Visit our health information library at [email or web address] You can also view health information on Amnis, your personal patient account. Log in or sign up today. Enter K520 in the search box to learn more about Upper Respiratory Infection (Cold): After Your Visit. ?? [id number] [employer], [place]. Care instructions adapted under license by [facility]. This care instruction is for use with your licensed healthcare professional. If you have questions about a medical condition or this instruction, always ask your healthcare professional. [employer] disclaims any warranty or liability for your use of this information. Content Version: 10.4.584596; Current as of: March 31, 2014 documented [...] history is provided by the patient. No rigger helper was used. No Known Allergies Review of [...] URI Dispo: Home Dorian Brooke MD 04/03/15 5224 documented in this encounter Miscellaneous Notes * [...] AM EST Appointment [place] [address] 08/07/2024 10:00 AM EST Office Visit [place] [address] Rosalba Patel MD [facility] [place] [address] 08/07/2024 12:00 PM EST Appointment H[place] [address] 08/21/2024 8:30 AM EST Appointment H[place]ology [place] [address] 08/21/2024 10:00 AM EST Office Visit [place]ology [place] [address] Rosalba Patel MD [facility] [place] [address] 08/21/2024 11:30 AM EST Appointment Hematology [place] [address] documented as of this encounter Procedures Procedure [...] site documented in this encounter Care Teams Bridge Maintainer Relationship Specialty Start Date End Date Nat Baker MD [address] [place] [address] PCP - General 03/30/13 11/10/18 documented as of this encounter
--- OUTSIDE RECORDS SUMMARY | 2024-07-17 10:07 | XMS_ITS | Encounter Summary ---
Author Organization [facility] [place] [address] Care Team Providers Care Underwater Roboticist Name Role Phone Carl Garvey DNP Primary Care Provider [phone] Encounter Details Date Type Department Care Team (Late Contact Info) Description 07/15/2023 10:35 AM EST Ancillary Procedure Radiology Library at [facility] [place] [address] Romulo Kamara MD [facility] [place] [address] Social History Tobacco Use Types Packs/Day Years [...] EST Appointment Hematology [place] [address] 08/07/2024 10:00 AM EST Office Visit Hematology [place] [address] Rosalba Patel MD [facility] [place] [address] 08/07/2024 12:00 PM EST Appointment Hematology [place] [address] 08/21/2024 8:30 AM EST Appointment Hematology [place] [address] 08/21/2024 10:00 AM EST Office Visit Hematology [place] [address] Rosalba Patel MD [facility] [place] [address] 08/21/2024 11:30 AM EST Appointment Hematology [place] [address] documented as of this encounter Procedures Procedure Name Priority Date/Time Associated Diagnosis Comments FILM LIBRARY - STORAGE ONLY CT NECK Routine 07/15/2023 10:33 AM EST documented in this encounter Results * Film Library- Storage Only CT Neck (07/15/2023 10:33 AM EST) Narrative [facility] - 07/15/2023 10:33 AM EST This exam is auto-finalizing. It's purpose is for storage only. Romulo Kamara MD IMG FILM LIBRARY ORD ERABLES [place], [place] documented in this encounter Visit Diagnoses Not on filedocumented in this encounter Care Teams Underwater Roboticist Relationship Specialty Start Date End Date Carl Garvey DNP [address] [place] [address] PCP - General Family Medicine 05/03/20 04/01/24 documented as of this encounter
--- OUTSIDE RECORDS SUMMARY | 2024-07-17 10:07 | XMS_ITS | Encounter Summary ---
[place] [address] Care Team Providers Care Mail Messenger Contractor Name Role Phone Nat Baker MD Primary Care Provider [phone] Encounter Details Date Type Department Care Team (Late Contact Info) Description 08/06/2015 Orders Only Radiology and Cardiology Results [address] [place] [phone] Apd Conversion, Results Provider, Social History Tobacco [...] AM EST Appointment Hematology [place] [address] 08/07/2024 10:00 AM EST Office Visit Hematology [place] [address] Rosalba Patel MD [facility] [place] [address] 08/07/2024 12:00 PM EST Appointment Hematology [place] [address] 08/21/2024 8:30 AM EST Appointment Hematology [place] [address] 08/21/2024 10:00 AM EST Office Visit Hematology [place] [address] Rosalba Patel MD [facility] [place] [address] 08/21/2024 11:30 AM EST Appointment Hematology [place] [address] documented as of this encounter Procedures Procedure Name Priority Date/Time Associated Diagnosis Comments U ALBUMIN/CRE RATIO Routine 08/06/2015 documented in this encounter Results * (ABNORMAL) U Albumin/Cre Ratio (08/06/2015) Albumin / Creatinin Ratio, Urine 5.0(Secondary School Teacher Librarian al Lab) 0 - 29 [place]A [place] DAY CONVERSION Creatinine, Urine 130.2(Exte rnal Lab) DORA ARRIAG[place] DAY CONVERSION Albumin, Urine 6.6(Secondary School Teacher Librarian al Lab) 0 - 20 DORA ARRIAGA DAY CONVERSION 08/06/2015 Results Provider Apd Conversion URINE ORDERABLES Performing Organization Address City/State/[facility] [[email or web address]] Co de Phone Number DORA ARRIAGA DAY CONVERSION documented in this encounter Visit Diagnoses Not on filedocumented in this encounter Care Teams Mail Messenger Contractor Relationship Specialty Start Date End Date Nat Baker MD [address] [place] [address] PCP - General 11/11/18 02/27/19 documented as of this encounter
--- OUTSIDE RECORDS SUMMARY | 2024-07-17 10:07 | XMS_ITS | Encounter Summary ---
Author Organization [facility] [place] [address] Care Team Providers Care Unstacker Name Role Phone Carl Garvey DNP Primary Care Provider [phone] Encounter Details Date Type Department Care Team (Late st Contact Info) Description 02/08/2021 Ancillary Procedure Radiology Library at [facility] [place] [address] Nat Nicolas, NEWS PRODUCER [address] [place] [address] Social History Tobacco Use Types Packs/Day Years [...] AM EST Appointment Hematology [place] [address] 08/07/2024 10:00 AM EST Office Visit Hematology [place] [address] Rosalba Patel MD [facility] [place] [address] 08/07/2024 12:00 PM EST Appointment Hematology [place] [address] 08/21/2024 8:30 AM EST Appointment Hematology [place] [address] 08/21/2024 10:00 AM EST Office Visit [place]ematology [place] [address] Rosalba Patel MD [facility] [place] [address] 08/21/2024 11:30 AM EST Appointment Hematology [place] [address] documented as of this encounter Procedures Procedure Name Priority Date/Time Associated Diagnosis Comments FILM LIBRARY STORAGE ONLY MAMMO Routine 02/08/2021 12:00 AM EDT documented in this encounter Results * Film Library- Storage Only Mammo (02/08/2021 12:00 AM EDT) Narrative [facility] - 03/10/2024 7:23 AM EDT This exam is auto-finalizing. It's purpose is for storage only. Nat Nicolas NEWS PRODUCER IMG FILM LAKSHMI RY ORDERABLES [place], [place] documented in this encounter Visit Diagnoses Not on filedocumented in this encounter Care Teams Unstacker Relationship Specialty Start Date End Date Carl Garvey DNP [address] [place] [address] PCP - General Family Medicine 05/03/20 04/01/24 documented as of this encounter
--- OUTSIDE RECORDS SUMMARY | 2024-07-17 10:07 | XMS_ITS | Encounter Summary ---
[place] [address] Care Team Providers Care Boat Camp Operator Name Role Phone Nat Baker MD Primary Care Provider [phone] Encounter Details Date Type Department Care Team (Late Contact Info) Description 04/30/2014 Orders Only Radiology and Cardiology Results [address] [place] [phone] Apd Conversion, Results Provider, Social History Tobacco [...] AM EST Appointment Hematology [place] [address] 08/07/2024 10:00 AM EST Office Visit Hematology [place] [address] Rosalba Patel MD [facility] [place] [address] 08/07/2024 12:00 PM EST Appointment Hematology [place] [address] 08/21/2024 8:30 AM EST Appointment Hematology [place] [address] 08/21/2024 10:00 AM EST Office Visit Hematology [place] [address] Rosalba Patel MD [facility] [place] [address] 08/21/2024 11:30 AM EST Appointment Hematology [place] [address] documented as of this encounter Procedures Procedure [...] on filedocumented in this encounter Care Teams Boat Camp Operator Relationship Specialty Start Date End Date Nat Baker MD [address] [place] [place] [address] PCP - General 11/11/18 02/27/19 documented as of this encounter
--- OUTSIDE RECORDS SUMMARY | 2024-07-17 10:07 | XMS_ITS | Encounter Summary ---
Author Organization [facility] [place] [address] Care Team Providers Care Injection Molding Engineer Name Role Phone Carl Garvey DNP Primary Care Provider [phone] Encounter Details Date Type Department Care Team (Late st Contact Info) Description 03/06/2024 1:30 PM EDT Ancillary Procedure Radiology Library at [facility] [place] [address] Maricruz Dumont RN Social History Tobacco Use [...] AM EST Appointment Hematology [place] [address] 08/07/2024 10:00 AM EST Office Visit [place]ematology [place] [address] Rosalba Patel MD [facility] [place] [address] 08/07/2024 12:00 PM EST Appointment [place] [address] 08/21/2024 8:30 AM EST Appointment [place] [address] 08/21/2024 10:00 AM EST Office Visit [place] [address] Rosalba Patel MD [facility] [place] [address] 08/21/2024 11:30 AM EST Appointment H[place]ology [place] [address] documented as of this encounter Procedures Procedure Name Priority Date/Time Associated Diagnosis Comments FILM LIBRARY STORAGE ONLY MAMMO Routine 03/06/2024 1:30 PM EDT documented in this encounter Results * Film Library- Storage Only Mammo (03/06/2024 1:30 PM EDT) 03/10/2024 7:15 AM EDT Narrative [facility] 03/10/2024 7:15 AM EDT This exam is auto-finalizing. It's purpose is for storage only. Maricruz Dumont RN IMG FILM LIBRARY ORD ERABLES [place], [place] documented in this encounter Visit Diagnoses Not on filedocumented in this encounter Care Teams Injection Molding Engineer Relationship Specialty Start Date End Date Carl Garvey DNP [address] [place] [address] PCP - General Family Medicine 05/03/20 04/01/24 documented as of this encounter
--- OUTSIDE RECORDS SUMMARY | 2024-07-17 10:07 | XMS_ITS | Encounter Summary ---
Author Organization [facility] [address] Care Team Providers Care Tabulating Clerk Name Role Phone Carl Garvey DNP Primary Care Provider [phone] Encounter Details Date Type Department Care Team (Late Contact Info) Description 03/06/2024 Interpretation Only Radiology Library at [facility] [place] [place] [address] Maricruz Dumont RN Social History Tobacco Use [...] AM EST Appointment Hematology [place] [address] 08/07/2024 10:00 AM EST Office Visit Hematology [place] [address] Rosalba Patel MD [facility] [place] [address] 08/07/2024 12:00 PM EST Appointment Hematology [place] [address] 08/21/2024 8:30 AM EST Appointment Hematology [place] [address] 08/21/2024 10:00 AM EST Office Visit Hematology [place] [address] Rosalba Patel MD [facility] [place] [address] 08/21/2024 11:30 AM EST Appointment Hematology [place] [address] documented as of this encounter Procedures Procedure Name Priority Date/Time Associated Diagnosis Comments FILM LIBRARY STORAGE ONLY ULTRASOUND STUDY Routine 03/06/2024 1:50 PM EDT documented in this encounter Results * Film Library- Storage Only Ultrasound Study (03/06/2024 1:50 PM EDT) 03/10/2024 7:15 AM EDT Narrative [facility] 03/10/2024 7:15 AM EDT This exam is auto-finalizing. It's purpose is for storage only. Maricruz Dumont RN IMG FILM LIBRARY ORD ERABLES [place], [place] documented in this encounter Visit Diagnoses Not on filedocumented in this encounter Care Teams Tabulating Clerk Relationship Specialty Start Date End Date Carl Garvey DNP [address] [place] [address] PCP - General Family Medicine 05/03/20 04/01/24 documented as of this encounter
--- OUTSIDE RECORDS SUMMARY | 2024-07-17 10:07 | XMS_ITS | Encounter Summary ---
[place] [address] Care Team Providers Care Waste Collector Name Role Phone Nat Baker MD Primary Care Provider [phone] Encounter Details Date Type Department Care Team (Late Contact Info) Description 11/29/2018 11:00 PM EDT Ancillary Procedure Radiology at [facility] [address] [facility] [place] [address] Nat Baker MD 10 [facility] [place] [address] Social History Tobacco Use Types Packs/Day Years [...] AM EST Appointment Hematology [place] [address] 08/07/2024 10:00 AM EST Office Visit Hematology [place] [address] Rosalba Patel MD [facility] [place] [place] [address] 08/07/2024 12:00 PM EST Appointment Hematology [place] [address] 08/21/2024 8:30 AM EST Appointment Hematology [place] [address] 08/21/2024 10:00 AM EST Office Visit Hematology [place] [address] Rosalba Patel MD [facility] [place] [address] 08/21/2024 11:30 AM EST Appointment Hematology [place] [address] documented as of this encounter Procedures Procedure Name Priority Date/Time Associated Diagnosis Comments FILM LIBRARY STORAGE ONLY CT CHEST Routine 11/29/2018 10:51 PM EDT documented in this encounter Results * Film Library- Storage Only CT Chest (11/29/2018 10:51 PM EDT) Narrative [facility] - 11/29/2018 10:51 PM EDT This exam is auto-finalizing. It's purpose is for storage only. Nat Baker MD [facility] FILM LIBRARY ORD ERABLES [place], [place] documented in this encounter Visit Diagnoses Not on filedocumented in this encounter Care Teams Waste Collector Relationship Specialty Start Date End Date Nat Baker MD [address] [place] [address] PCP - General 11/11/18 02/27/19 documented as of this encounter
--- OUTSIDE RECORDS SUMMARY | 2024-07-17 10:07 | XMS_ITS | Encounter Summary ---
Author Organization [facility] [place] [address] Care Team Providers Care Disease Intervention Specialist Name Role Phone Nat Baker MD Primary Care Provider [phone] Encounter Details Date Type Department Care Team (Late Contact Info) Description 07/08/2014 Abstract Cherelle Nickolas Jones Conversion Results [address] [place] [address] Apd Conversion, Flowsheet Provider, Social History Tobacco [...] EST Appointment Hematology [place] [address] 08/07/2024 10:00 AM EST Office Visit Hematology [place] [address] Rosalba Patel MD [facility] [place] [address] 08/07/2024 12:00 PM EST Appointment Hematology [place] [address] 08/21/2024 8:30 AM EST Appointment Hematology [place] [address] 08/21/2024 10:00 AM EST Office Visit Hematology [place] [address] Rosalba Patel MD [facility] [place] [address] 08/21/2024 11:30 AM EST Appointment Hematology [place] [address] documented as of this encounter Visit Diagnoses Not on filedocumented in this encounter Care Teams Disease Intervention Specialist Relationship Specialty Start Date End Date Nat Baker MD [address] [place] [place] [address] PCP - General 11/11/18 02/27/19 documented as of this encounter
--- OUTSIDE RECORDS SUMMARY | 2024-07-17 10:07 | XMS_ITS | Encounter Summary ---
Author Organization [facility] [place] [address] Care Team Providers Care Communications Marketing Intern Name Role Phone Nat Baker MD Primary Care Provider [phone] Encounter Details Date Type Department Care Team (Late Contact Info) Description 08/04/2015 Abstract Cherelle Jones Conversion Results [address] [place] [address] Apd Conversion, Flowsheet Provider, Social History Tobacco [...] AM EST Appointment [place]ology [place] [address] 08/07/2024 10:00 AM EST Office Visit [place] [address] Rosalba Patel MD [facility] [place] [address] 08/07/2024 12:00 PM EST Appointment [place] [address] 08/21/2024 8:30 AM EST Appointment [place] [address] 08/21/2024 10:00 AM EST Office Visit [place] [address] Rosalba Patel MD [facility] [place] [address] 08/21/2024 11:30 AM EST Appointment [place]ology [place] [address] documented as of this encounter Visit Diagnoses Not on filedocumented in this encounter Care Teams Communications Marketing Intern Relationship Specialty Start Date End Date Nat Baker MD [address] [place] [place] [address] PCP - General 11/11/18 02/27/19 documented as of this encounter
--- OUTSIDE RECORDS SUMMARY | 2024-07-17 10:07 | XMS_ITS | Encounter Summary ---
[place] [address] Care Team Providers Care Soaker Hides Name Role Phone Nat Baker MD Primary Care Provider [phone] Encounter Details Date Type Department Care Team (Late Contact Info) Description 08/06/2015 Orders Only Radiology and Cardiology Results [address] [place] [phone] Apd Conversion, Results Provider, Social History Tobacco [...] AM EST Appointment Hematology [place] [address] 08/07/2024 10:00 AM EST Office Visit [place]ematology [place] [address] Rosalba Patel MD [facility] [place] [address] 08/07/2024 12:00 PM EST Appointment Hematology [place] [address] 08/21/2024 8:30 AM EST Appointment Hematology [place] [address] 08/21/2024 10:00 AM EST Office Visit Hematology [place] [address] Rosalba Patel MD [facility] [place] [address] 08/21/2024 11:30 AM EST Appointment Hematology [place] [address] documented as of this encounter Procedures Procedure [...] DAY CONVERSION 08/06/2015 Results Provider Apd Conversion CHEMBlank STRRu ORDERABLES DORA ARRIAGA DAY CONVERSION documented in this encounter Visit Diagnoses Not on filedocumented in this encounter Care Teams Soaker Hides Relationship Specialty Start Date End Date Nat Baker MD [address] [place] [address] PCP - General 11/11/18 02/27/19 documented as of this encounter
--- OUTSIDE RECORDS SUMMARY | 2024-07-17 10:07 | XMS_ITS | Encounter Summary ---
Author Organization [facility] [place] [address] Care Team Providers Care General Counselor Name Role Phone Carl Garvey DNP Primary Care Provider [phone] Encounter Details Date Type Department Care Team (Late Contact Info) Description 02/08/2021 12:05 AM EDT Ancillary Procedure Radiology Library at [facility] [place] [address] Nat Nicolas, FAMILY AND MARRIAGE COUNSELLOR [address] [place] [address] Social History Tobacco Use Types Packs/Day Years [...] AM EST Appointment H[place]ology [place] [address] 08/07/2024 10:00 AM EST Office Visit Hematology [place] [address] Rosalba Patel MD [facility] MEDICAL ONCOLOGY [place], [place] [id number] 08/07/2024 12:00 PM EST Appointment H[place]ology [place] [address] 08/21/2024 8:30 AM EST Appointment Hematology [place] [address] 08/21/2024 10:00 AM EST Office Visit [place]ematology [place] [address] Rosalba Patel MD [facility] [place] [address] 08/21/2024 11:30 AM EST Appointment Hematology [place] [address] documented as of this encounter Procedures Procedure Name Priority Date/Time Associated Diagnosis Comments FILM LIBRARY-STORAGE ONLY US BREAST Routine 02/08/2021 12:05 AM EDT documented in this encounter Results * Film Library Storage Only US Breast (02/08/2021 12:05 AM EDT) Narrative [facility] - 03/10/2024 7:23 AM EDT This exam is auto-finalizing. It's purpose is for storage only. Nat Nicolas APRN IMG FILM LAKSHMI RY ORDERABLES Performing Organization Address City/State/[facility] Co de Phone Number [place], [place] documented in this encounter Visit Diagnoses Not on filedocumented in this encounter Care Teams General Counselor Relationship Specialty Start Date End Date Carl Garvey DNP [facility] [address] [place] [address] PCP - General Family Medicine 05/03/20 04/01/24 documented as of this encounter
--- OUTSIDE RECORDS SUMMARY | 2024-07-17 10:07 | XMS_ITS | Encounter Summary ---
[place] [address] Care Team Providers Care Customer Operations Manager Name Role Phone Nat Baker MD Primary Care Provider [phone] Reason for Visit * Reason Comments Ankle Pain Encounter Details Date Type Department Care Team (Late st Contact Info) Description 08/02/2015 1:23 PM EST - 08/02/2015 2:38 PM EST [place] [address] Sprain of tibiofibular ligament of right ankle, [...] sent through Care Everywhere. * ANKLE SPRAIN (RUSSIAN) documented in this encounter Medications at Time [...] AM EST Appointment Hematology [place] [address] 08/07/2024 10:00 AM EST Office Visit Hematology [place] [address] Rosalba Patel MD [facility] [place] [address] 08/07/2024 12:00 PM EST Appointment Hematology [place] [address] 08/21/2024 8:30 AM EST Appointment Hematology [place] [address] 08/21/2024 10:00 AM EST Office Visit Hematology and Oncology at [facility] [place] [address] Rosalba Patel MD [facility] [place] [address] 08/21/2024 11:30 AM EST Appointment Hematology [place] [address] documented as of this encounter Procedures Procedure [...] encounter documented in this encounter Care Teams Customer Operations Manager Relationship Specialty Start Date End Date Nat Baker MD [address] [place] [address] PCP - General 03/30/13 11/10/18 documented as of this encounter
--- OUTSIDE RECORDS SUMMARY | 2024-07-17 10:07 | XMS_ITS | Encounter Summary ---
[place] [address] Care Team Providers Care Analysis Or Research Safety Inspector Name Role Phone Nat Baker MD Primary Care Provider [phone] Encounter Details Date Type Department Care Team (Late st Contact Info) Description 11/29/2018 10:45 PM EDT Ancillary Procedure Radiology at [facility] [address] [place] [address] Nat Baker MD [address] [facility] [place] [place] [address] Social History Tobacco Use Types Packs/Day Years [...] AM EST Appointment Hematology [place] [address] 08/07/2024 10:00 AM EST Office Visit [place]ematology [place] [address] Rosalba Patel MD [facility] [place] [address] 08/07/2024 12:00 PM EST Appointment [place]ology [place] [address] 08/21/2024 8:30 AM EST Appointment [place]ematology [place] [address] 08/21/2024 10:00 AM EST Office Visit [place]ology [place] [address] Rosalba Patel MD [facility] [place] [address] 08/21/2024 11:30 AM EST Appointment [place]ematology [place] [address] documented as of this encounter Procedures Procedure Name Priority Date/Time Associated Diagnosis Comments FILM LIBRARY STORAGE ONLY MR HEAD Routine 11/29/2018 10:44 PM EDT documented in this encounter Results * Film Library- Storage Only MR Head (11/29/2018 10:44 PM EDT) Narrative [facility] - 11/29/2018 10:44 PM EDT This exam is auto-finalizing. It's purpose is for storage only. Nat Baker MD [facility] FILM LIBRARY ORD ERABLES [place], [place] documented in this encounter Visit Diagnoses Not on filedocumented in this encounter Care Teams Analysis Or Research Safety Inspector Relationship Specialty Start Date End Date Nat Baker MD [address] [place] [address] PCP - General 11/11/18 02/27/19 documented as of this encounter
--- OUTSIDE RECORDS SUMMARY | 2024-07-17 10:07 | XMS_ITS | Encounter Summary ---
[place] [address] Care Team Providers Care Statistician Name Role Phone Nat Baker MD Primary Care Provider [phone] Encounter Details Date Type Department Care Team (Late Contact Info) Description 08/06/2015 Orders Only Radiology and Cardiology Results [address] [place] [phone] Apd Conversion, Results Provider, Social History Tobacco [...] AM EST Appointment Hematology [place] [address] 08/07/2024 10:00 AM EST Office Visit Hematology [place] [address] Rosalba Patel MD [facility] [place] [address] 08/07/2024 12:00 PM EST Appointment Hematology [place] [address] 08/21/2024 8:30 AM EST Appointment Hematology [place] [address] 08/21/2024 10:00 AM EST Office Visit Hematology [place] [address] Rosalba Patel MD [facility] [place] [address] 08/21/2024 11:30 AM EST Appointment Hematology [place] [address] documented as of this encounter Procedures Procedure [...] on filedocumented in this encounter Care Teams Statistician Relationship Specialty Start Date End Date Nat Baker MD [address] [place] [address] PCP - General 11/11/18 02/27/19 documented as of this encounter
--- OUTSIDE RECORDS SUMMARY | 2024-07-17 10:07 | XMS_ITS | Encounter Summary ---
Author Organization [facility] Address [facility] [address] [place] [address] Care Team Providers Care Refund Clerk Name Role Phone Nat Baker MD Primary Care Provider [phone] Encounter Details Date Type Department Care Team (Latest Contact Info) Description 08/31/2017 - 08/31/2017 11:59 PM EST Hospital Encounter Radiology Library at [facility] [place] [address] [place] [address] Discharge Disposition: Home Social History Tobacco Use [...] EST Appointment Hematology [place] [address] 08/07/2024 10:00 AM EST Office Visit Hematology [place] [address] Rosalba Patel MD [facility] [place] [address] 08/07/2024 12:00 PM EST Appointment Hematology [place] [address] 08/21/2024 8:30 AM EST Appointment Hematology [place] [address] 08/21/2024 10:00 AM EST Office Visit Hematology [place] [address] Rosalba Patel MD [facility] [place] [address] 08/21/2024 11:30 AM EST Appointment Hematology [place] [address] documented as of this encounter Procedures Procedure Name Priority Date/Time Associated Diagnosis Comments FILM LIBRARY- STORAGE ONLY CT FACE Routine 08/31/2017 12:00 AM EST documented in this encounter Results * Film Library-Storage Only CT Face (08/31/2017 12:00 AM EST) Narrative RAD - 09/01/2017 10:25 AM EST This exam is for storage only and is auto-finalizing. Nat Baker MD IMG FILM LIBRARY OR DERABLES [place], [place] documented in this encounter Visit Diagnoses Not on filedocumented in this encounter Care Teams Refund Clerk Relationship Specialty Start Date End Date Nat Baker MD [address] [place] [address] PCP - General 03/30/13 11/10/18 documented as of this encounter
--- OUTSIDE RECORDS SUMMARY | 2024-07-17 10:07 | XMS_ITS | Encounter Summary ---
[place] [address] Care Team Providers Care Clinical Quality Manager Name Role Phone Nat Baker MD Primary Care Provider [phone] Encounter Details Date Type Department Care Team (Late Contact Info) Description 12/02/2018 External Results Non-In[place] [address] Social History Tobacco Use Types Packs/Day Years [...] AM EST Appointment H[place] [address] 08/07/2024 10:00 AM EST Office Visit [place] [address] Rosalba Patel MD [facility] [place] [address] 08/07/2024 12:00 PM EST Appointment [place] [address] 08/21/2024 8:30 AM EST Appointment [place] [address] 08/21/2024 10:00 AM EST Office Visit [place] [address] Rosalba Patel MD [facility] [place] [address] 08/21/2024 11:30 AM EST Appointment [place] [address] documented as of this encounter Procedures Procedure Name Priority Date/Time Associated Diagnosis Comments ECHO SCAN (SCAN) Routine 12/02/2018 documented in this encounter Results * Scan Doc: Echo (12/02/2018) Anatomical Region Laterality Modality Cardiac Other Historical Provider MD MARTINEZ MGR SCAN EX T ORDR/RSLT documented in this encounter Visit Diagnoses Not on filedocumented in this encounter Care Teams Clinical Quality Manager Relationship Specialty Start Date End Date Nat Baker MD [address] [place] [address] PCP - General 11/11/18 02/27/19 documented as of this encounter
--- OUTSIDE RECORDS SUMMARY | 2024-07-17 10:07 | XMS_ITS | Encounter Summary ---
[place] [address] Care Team Providers Care Consultant Education Name Role Phone Nat Baker MD Primary Care Provider [phone] Reason for Visit * Reason Comments Dizziness Encounter Details Date Type Department Care Team ([facility] st Contact Info) Description 08/03/2013 2:48 PM EST - 08/03/2013 5:29 PM EST [place] [address] Stew Simpson Jr., MD Vertigo; Atypical chest pain Discharge Disposition: Home [...] with meclizine. S3 or chest discomfort, we [id number] low risk for heart attack or a decreased blood flow to your heart but with that said you should followup with your primary care physician and return to the emergency department of your symptoms worsen. * Attachments The following attachments cannot be sent through Care Everywhere. * CHEST PAIN: AFTER YOUR VISIT TO THE EMERGENCY ROOM ([facility]) * VERTIGO: AFTER YOUR VISIT ([place]ES) documented in this encounter Medications at Time [...] negative troponin. Stew Simpson Jr., MD 08/03/13 7567 * Stew Moeller RN - 08/03/2013 5:29 PM EST Pt released with instructions. * Stew Moeller RN - 08/03/2013 5:13 PM EST Pt is feeling better after her zofran. She is continuing to have some twinges of chest discomfort. Pt is awake, alert and oriented x 3. Skin color is pink warm and dry. Pt is on the planning supervisor showing a NSR. Respirations are regular. * [...] pink warm and dry. Ptis on the planning supervisor showing a NSR. Respirations are regular. Breath [...] AM EST Appointment H[place]ology [place] [address] 08/07/2024 10:00 AM EST Office Visit Hematology [place] [address] Rosalba Patel MD [facility] [place] [address] 08/07/2024 12:00 PM EST Appointment Hematology [place] [address] 08/21/2024 8:30 AM EST Appointment Hematology [place] [address] 08/21/2024 10:00 AM EST Office Visit Hematology [place] [address] Rosalba Patel MD [facility] [place] [address] 08/21/2024 11:30 AM EST Appointment Hematology [place] [address] documented as of this encounter Procedures Procedure [...] (Bezet) 438 ms MUSE SYSTEM Calculated P [place] 27 degrees MUSE SYSTEM Calculated R [place] 19 degrees MUSE SYSTEM Calculated T [place] -3 degrees MUSE SYSTEM INTERPRETATION Normal sinus rhythm Normal ECG When compared with ECG of 08-MAR-1993 12:08, Inverted T waves have replaced nonspecific T wave abnormality in Inferior leads Confirmed by MD Russell, Guillermo ([id number]) on 08/04/2013 6:16:59 AM MUSE SYSTEM 08/03/2013 4:32 PM EST 08/04/2013 6:16 AM EST Stew Simpson Jr., MD ECG ORDERABLES Performing Organization Address [facility] Co de Phone Number MUSE SYSTEM * Lavender Tube HOLD (08/03/2013 4:00 PM EST) Lavender Hold Sample in lab. HILLARY ROSARIOENNIUM Blood specimen (specimen) 08/03/2013 4:00 PM EST 08/03/2013 4:21 PM EST Stew Simpson Jr., MD HEMATOLOGY ORDERAB LES CERLEXI ROSARIOENNIUM * Blue Tube HOLD (08/03/2013 4:00 PM EST) Blue Hold Sample in lab. CERNER MILLENNIUM Blood specimen (specimen) 08/03/2013 4:00 PM EST 08/03/2013 4:21 PM EST Stew Simpson Jr., MD HEMATOLOGY ORDERAB LES Performing Organization Address [facility] Co de Phone Number HILLARY DUBON * Troponin T (08/03/2013 4:00 PM EST) Troponin-T <0.03 <=0.03 ng/mL HILLAYR DUBON Comment: 0.03 ng/mL: Represents the 99th percentile upper reference limit for normals. >0.03 ng/mL: Elevated cardiac troponin T level indicative of myocardial damage. Diagnosis of acute, evolving or recent [place] requires a typical rise and gradual fall [...] consensus document of the Joint Society of Cardiology/[place] [employer] Committee for the redefinition of myocardial infarction. ??Journal of the [place] [employer] 2000; 36: 959-969] Blood specimen (specimen) 08/03/2013 4:00 PM EST 08/03/2013 4:20 PM EST Narrative Resulting Agency Comment Spec In Lab Stew Simspon Jr., MD CHEMISTRY ORDERABL ES Performing Organization Address [facility] Co ut Phone Number HILLARY DUBON documented in this encounter Visit [...] RN) documented in this encounter Care Teams Consultant Education Relationship Specialty Start Date End Date Nat Baker MD [address] [place] [address] PCP - General 03/30/13 11/10/18 documented as of this encounter
--- OUTSIDE RECORDS SUMMARY | 2024-07-17 10:07 | XMS_ITS | Encounter Summary ---
Author Organization [facility] [place] [address] Care Team Providers Care Classroom Coordinator Name Role Phone Carl Garvey DNP Primary Care Provider [phone] Encounter Details Date Type Department Care Team (Late Contact Info) Description 03/06/2024 Interpretation Only Radiology Library at [facility] [place] [address] Maricruz Dumont RN Social History Tobacco Use [...] EST Appointment Hematology [place] [address] 08/07/2024 10:00 AM EST Office Visit Hematology [place] [address] Rosalba Patel MD [facility] [place] [address] 08/07/2024 12:00 PM EST Appointment Hematology [place] [address] 08/21/2024 8:30 AM EST Appointment Hematology [place] [address] 08/21/2024 10:00 AM EST Office Visit Hematology [place] [address] Rosalba Patel MD [facility] [place] [address] 08/21/2024 11:30 AM EST Appointment Hematology [place] [address] documented as of this encounter Procedures Procedure Name Priority Date/Time Associated Diagnosis Comments FILM LIBRARY STORAGE ONLY MAMMO Routine 03/06/2024 1:30 PM EDT documented in this encounter Results * Film Library- Storage Only Mammo (03/06/2024 1:30 PM EDT) 03/10/2024 7:15 AM EDT Narrative [facility] 03/10/2024 7:15 AM EDT This exam is auto-finalizing. It's purpose is for storage only. Maricruz Dumont RN IMG FILM LIBRARY ORD ERABLES [place], [place] documented in this encounter Visit Diagnoses Not on filedocumented in this encounter Care Teams Classroom Coordinator Relationship Specialty Start Date End Date Carl Garvey DNP [address] [place] [address] PCP - General Family Medicine 05/03/20 04/01/24 documented as of this encounter
--- OUTSIDE RECORDS SUMMARY | 2024-07-17 10:07 | XMS_ITS | Encounter Summary ---
Author Organization [facility] [place] [address] Care Team Providers Care Coding Compliance Auditor Name Role Phone Carl Garvey DNP Primary Care Provider [phone] Encounter Details Date Type Department Care Team (Late st Contact Info) Description 03/06/2024 1:50 PM EDT Ancillary Procedure Radiology Library at [facility] [place] [address] Maricruz Dumont RN Social History Tobacco Use [...] AM EST Appointment Hematology [place] [address] 08/07/2024 10:00 AM EST Office Visit Hematology [place] [address] Rosalba Patel MD [facility] [place] [address] 08/07/2024 12:00 PM EST Appointment Hematology [place] [address] 08/21/2024 8:30 AM EST Appointment Hematology [place] [address] 08/21/2024 10:00 AM EST Office Visit Hematology [place] [address] Rosalba Patel MD [facility] [place] [address] 08/21/2024 11:30 AM EST Appointment Hematology [place] [address] documented as of this encounter Procedures Procedure Name Priority Date/Time Associated Diagnosis Comments FILM LIBRARY STORAGE ONLY ULTRASOUND STUDY Routine 03/06/2024 1:50 PM EDT documented in this encounter Results * Film Library- Storage Only Ultrasound Study (03/06/2024 1:50 PM EDT) 03/10/2024 7:15 AM EDT Narrative [facility] 03/10/2024 7:15 AM EDT This exam is auto-finalizing. It's purpose is for storage only. Maricruz Dumont RN IMG FILM LIBRARY ORD ERABLES [place], [place] documented in this encounter Visit Diagnoses Not on filedocumented in this encounter Care Teams Coding Compliance Auditor Relationship Specialty Start Date End Date Carl Garvey DNP [address] [place] [address] PCP - General Family Medicine 05/03/20 04/01/24 documented as of this encounter
--- OUTSIDE RECORDS SUMMARY | 2024-07-17 10:07 | XMS_ITS | Encounter Summary ---
Author Organization [facility] [place] [address] Care Team Providers Care Rubber Worker Name Role Phone Nat Baker MD Primary Care Provider [phone] Encounter Details Date Type Department Care Team (Late Contact Info) Description 06/21/2014 Interpretation Only Radiology [address] [place] [address] [place] [address] Unknown None Social History Tobacco Use Types [...] AM EST Appointment Hematology [place] [address] 08/07/2024 10:00 AM EST Office Visit Hematology [place] [address] Rosalba Patel MD [facility] [place] [address] 08/07/2024 12:00 PM EST Appointment Hematology [place] [address] 08/21/2024 8:30 AM EST Appointment Hematology [place] [address] 08/21/2024 10:00 AM EST Office Visit Hematology [place] [address] Rosalba Patel MD [facility] [place] [address] 08/21/2024 11:30 AM EST Appointment Hematology [place] [address] documented as of this encounter Procedures Procedure Name Priority Date/Time Associated Diagnosis Comments XR KNEE AP LAT AXIAL PATELLA RIGHT Routine 06/21/2014 11:54 AM EST documented in this encounter Results * XR Knee 3 Views Right (06/21/2014 11:54 AM EST) Anatomical Region Laterality Modality Knee Right Radiographic Re ging 06/21/2014 11:5 4 AM EST Narrative 06/21/2014 11:54 AM EST APD Historical Result Principal Helicopter Dispatcher: ??ADARSH ??CHRISSY RIGHT KNEE - THREE VIEWS: HISTORY: ??Traumatic injury. AP, lateral, and sunrise views of the right knee are obtained. ??The lateral view is obtained in cross-table supine position. FINDINGS: There is mild marginal osteophyte formation. ??Patella is in anatomic alignment. ??No fracture or dislocation is demonstrated. IMPRESSION: Mild degenerative change. Adarsh Nascimento MD NILE/bunny [id number] CC: Procedure Note Unknown - 01/20/2019 APD Historical Result Principal Helicopter Dispatcher: ADARSH NASCIMENTO RIGHT KNEE - THREE VIEWS: HISTORY: Traumatic injury. AP, lateral, and sunrise views of the right knee are obtained. Thelateral view is obtained in cross-table supine position. FINDINGS: There is mild marginal osteophyte formation. Patella is in anatomicalignment. No fracture or dislocation is demonstrated. IMPRESSION: Mild degenerative change. Adarsh Nascimento MD NILE/bunny [id number] CC: Unknown IMG DX ORDERABLES documented in this encounter Visit Diagnoses Not on filedocumented in this encounter Care Teams Rubber Worker Relationship Specialty Start Date End Date Nat Baker MD [address] [place] [address] PCP - General 11/11/18 02/27/19 documented as of this encounter
--- OUTSIDE RECORDS SUMMARY | 2024-07-17 10:07 | XMS_ITS | Encounter Summary ---
[place] [address] Care Team Providers Care Relief Driller Name Role Phone Nat Baker MD Primary Care Provider [phone] Encounter Details Date Type Department Care Team (Late Contact Info) Description 08/06/2015 Orders Only Radiology and Cardiology Results [address] [place] [phone] Apd Conversion, Results Provider, Social History Tobacco [...] AM EST Appointment Hematology [place] [address] 08/07/2024 10:00 AM EST Office Visit Hematology [place] [address] Rosalba Patel MD [facility] [place] [place] [address] 08/07/2024 12:00 PM EST Appointment Hematology [place] [address] 08/21/2024 8:30 AM EST Appointment Hematology [place] [address] 08/21/2024 10:00 AM EST Office Visit Hematology [place] [address] Rosalba Patel MD [facility] [place] [address] 08/21/2024 11:30 AM EST Appointment Hematology [place] [address] documented as of this encounter Procedures Procedure Name Priority Date/Time Associated Diagnosis Comments TSH Routine 08/06/2015 documented in this encounter Results * (ABNORMAL) TSH (08/06/2015) Thyroid Stimulating Hormone 2.040(Ext ernal Lab) 0.358 - 3.740 DORA JONES CONVERSION 08/06/2015 Results Provider Apd Conversion MD GUILLERMO VINSON ORDERABLES DORA JONES CONVERSION documented in this encounter Visit Diagnoses Not on filedocumented in this encounter Care Teams Relief Driller Relationship Specialty Start Date End Date Nat Baker MD [address] [place] [address] PCP - General 11/11/18 02/27/19 documented as of this encounter
--- OUTSIDE RECORDS SUMMARY | 2024-07-17 10:07 | XMS_ITS | Encounter Summary ---
[place] [address] Care Team Providers Care Operating Room Surgical Technician Name Role Phone Nat Baker MD Primary Care Provider Encounter Details Date Type Department Care Team (Late Contact Info) Description 11/29/2018 11:05 PM EDT Ancillary Procedure Radiology at [facility] [address] [place] [address] Nat Baker MD [address] [facility] [place] [address] Social History Tobacco Use Types Packs/Day Years [...] EST Appointment Hematology [place] [address] 08/07/2024 10:00 AM EST Office Visit Hematology [place] [address] Rosalba Patel MD [facility] [place] [address] 08/07/2024 12:00 PM EST Appointment Hematology [place] [address] 08/21/2024 8:30 AM EST Appointment Hematology [place] [address] 08/21/2024 10:00 AM EST Office Visit Hematology [place] [address] Rosalba Patel MD [facility] [place] [address] 08/21/2024 11:30 AM EST Appointment Hematology [place] [address] documented as of this encounter Procedures Procedure Name Priority Date/Time Associated Diagnosis Comments FILM LIBRARY STORAGE ONLY MR SPINE Routine 11/29/2018 10:55 PM EDT documented in this encounter Results * Film Library- Storage Only MR Spine (11/29/2018 10:55 PM EDT) Narrative [facility] - 11/29/2018 10:55 PM EDT This exam is auto-finalizing. It's purpose is for storage only. Nat Baker MD [facility] [place]RARY [place]D ERABLES [place], [place] documented in this encounter Visit Diagnoses Not on filedocumented in this encounter Care Teams Operating Room Surgical Technician Relationship Specialty Start Date End Date Nat Baker MD [address] [place] [address] PCP - General 11/11/18 02/27/19 documented as of this encounter
--- OUTSIDE RECORDS SUMMARY | 2024-07-17 10:07 | XMS_ITS | Encounter Summary ---
[place] [address] Care Team Providers Care Manager Country Name Role Phone Nat Baker MD Primary Care Provider [phone] Encounter Details Date Type Department Care Team (Late Contact Info) Description 08/06/2015 Orders Only Radiology and Cardiology Results [address] [place] [phone] Apd Conversion, Results Provider, Social History Tobacco [...] AM EST Appointment [place]ology [place] [address] 08/07/2024 10:00 AM EST Office Visit [place]ematology [place] [address] Rosalba Patel MD [facility] [place] [address] 08/07/2024 12:00 PM EST Appointment [place]ology [place] [address] 08/21/2024 8:30 AM EST Appointment [place]ology [place] [address] 08/21/2024 10:00 AM EST Office Visit [place]ematology [place] [address] Rosalba Patel MD [facility] [place] [address] 08/21/2024 11:30 AM EST Appointment [place]ematology [place] [address] documented as of this encounter Procedures Procedure Name Priority Date/Time Associated Diagnosis Comments HEMOGLOBIN A1C Routine 08/06/2015 documented in this encounter Results * (ABNORMAL) Hemoglobin A1c (08/06/2015) Estimated Average Glucose 162.8(ExtH ) 82.5 - 116.9 DORA ARRIAGA DAY CONVERSION Hemoglobin A1c 7.3(ExtH) 4.5 - 6.2 CONVERSION 08/06/2015 Results Provider Apd Conversion MD GUILLERMO VINSON ORDERABLES DORA JONES CONVERSION documented in this encounter Visit Diagnoses Not on filedocumented in this encounter Care Teams Manager Country Relationship Specialty Start Date End Date Nat Baker MD [address] [place] [address] PCP - General 11/11/18 02/27/19 documented as of this encounter
--- OUTSIDE RECORDS SUMMARY | 2024-07-17 10:08 | XMS_ITS | Encounter Summary ---
[place] [address] Care Team Providers Care Marketing Administrator Name Role Phone Nat Baker MD Primary Care Provider Reason for Visit * Reason Comments Dental Pain Encounter Details Date Type Department Care Team (Late st Contact Info) Description 03/30/2013 4:19 PM EDT - 03/30/2013 6:15 PM EDT [place] [address] Stew Lira PA [facility] [place] [address] Brian Rios MD [facility] [place] [address] Broken tooth (Primary Dx) Discharge Disposition: Home [...] see handouts Alternatives for Dental Care in [place] and Low Cost Dental Clinics. #4. Follow up in the Emergency Dept. As needed. * Attachments The following attachments cannot be sent through Care Everywhere. * BROKEN TOOTH: AFTER YOUR VISIT (PALESTINIAN) documented in this encounter Medications at Time [...] out for Alternatives in Dental Care in [place] and Low cost Dental Clinics. ED Course: [...] AM EST Appointment Hematology [place] [address] 08/07/2024 10:00 AM EST Office Visit Hematology [place] [address] Rosalba Patel MD [facility] [place] [address] 08/07/2024 12:00 PM EST Appointment Hematology [place] [address] 08/21/2024 8:30 AM EST Appointment Hematology [place] [address] 08/21/2024 10:00 AM EST Office Visit [place]ematology [place] [address] Rosalba Patel MD [facility] [place] [address] 08/21/2024 11:30 AM EST Appointment [place]ology [place] [address] documented as of this encounter Visit Diagnoses Diagnosis Broken tooth- Primary Open wound of tooth (broken) (fractured) (due to trauma), without mention of complication documented in this encounter Care Teams Marketing Administrator Relationship Specialty Start Date End Date Nat Baker MD [address] [place] [address] PCP - General 03/30/13 11/10/18 documented as of this encounter
--- OUTSIDE RECORDS SUMMARY | 2024-07-17 10:08 | XMS_ITS | Encounter Summary ---
Author Organization [facility] [place] [place] [address] Care Team Providers Care Outsole Cutter Machine Name Role Phone Unavailable Primary Care Provider Unavailabl e Encounter Details Date Type Department Care Team (Late Contact Info) Description 03/20/2006 Ancillary Procedure Radiology Library at [facility] [place] [address] Nat Nicolas, PRECISION MACHINIST [address] [place] [address] Social History Tobacco Use Types Packs/Day Years [...] AM EST Appointment Hematology [place] [address] 08/07/2024 10:00 AM EST Office Visit Hematology [place] [address] Rosalba Patel MD [facility] [place] [address] 08/07/2024 12:00 PM EST Appointment Hematology [place] [address] 08/21/2024 8:30 AM EST Appointment Hematology [place] [address] 08/21/2024 10:00 AM EST Office Visit [place]ematology [place] [address] Rosalba Patel MD [facility] [place] [address] 08/21/2024 11:30 AM EST Appointment Hematology [place] [address] documented as of this encounter Procedures Procedure Name Priority Date/Time Associated Diagnosis Comments FILM LIBRARY STORAGE ONLY MAMMO Routine 03/20/2006 12:00 AM EDT documented in this encounter Results * Film Library- Storage Only Mammo (03/20/2006 12:00 AM EDT) Narrative [facility] - 03/10/2024 7:23 AM EDT This exam is auto-finalizing. It's purpose is for storage only. Nat Nicolas APRN IMG FILM LAKSHMI RY ORDERABLES [place], [place] documented in this encounter Visit Diagnoses Not on filedocumented in this encounter
--- OUTSIDE RECORDS SUMMARY | 2024-07-17 10:08 | XMS_ITS | Encounter Summary ---
[place] [address] Care Team Providers Care Sample Tailor Name Role Phone None Primary Care Provider Unavailabl e Reason for Visit * Reason Comments Abdominal Pain Encounter Details Date Type Department Care Team (Late st Contact Info) Description 02/14/2013 4:03 AM EDT - 02/14/2013 6:19 AM EDT [place] [address] Orville Martinez MD [facility] DR [place] [address] Diverticulitis (Primary Dx); Headache Discharge Disposition: Home [...] Care Everywhere. * DIVERTICULITIS: AFTER YOUR VISIT (LITHUANIAN) * HEADACHE: AFTER YOUR VISIT TO THE EMERGENCY ROOM (LITHUANIAN) documented in this encounter Medications at Time [...] exam c/w with early diverticulitis without complication. [place] rhonda stable for outpatient management. Considered stone but unlikely given CT findings. Considered ovarian pathology but pelvic exam less concerning and alternative dx more likely. 2. Headache. Low suspicion for SAH. No concern for meningitis. Low suspicion for mass lesion. Assessment: 1. Diveritulitis; 2. Primary Headache Plan: Discharge. Cipro/flagyl x 10d. Percocet prn. 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 Orville Martinez MD 02/14/13 [...] UA Negative Appearance UA Clear Clear Spec [place] UA 1.013 1.002 - 1.030 Color UA Yellow Yellow RBC UA <1 0 - 4 /HPF WBC UA 1 0 - 5 /HPF Bacteria UA Rare (*) None /HPF Squam Epith UA 2 <=4 /HPF Trans Epith UA <1 <=1 /HPF POCT URINE DIPSTICK Component Value Range POC Sp [place] 1.020 1.002 - 1.030 POC pH, UA [...] ED precautions discussedat length. Xavier Castillo, MS4 #[id number] * ED Triage - Anna Marie Pelayo [...] AM EST Appointment Hematology [place] [address] 08/07/2024 10:00 AM EST Office Visit Hematology [place] [address] Rosalba Patel MD [facility] [place] [address] 08/07/2024 12:00 PM EST Appointment Hematology [place] [address] 08/21/2024 8:30 AM EST Appointment Hematology [place] [address] 08/21/2024 10:00 AM EST Office Visit Hematology [place] [address] Rosalba Patel MD [facility] [place] [address] 08/21/2024 11:30 AM EST Appointment Hematology [place] [address] documented as of this encounter Procedures Procedure [...] reviewed by the attending Orville Martinez MD [facility] [place] * (ABNORMAL) Differential, Automated (02/14/2013 [...] Absolute 0.02 0.00 - 0.05 x10(3)/mc L HILLARY DUBON Blood specimen (specimen) 02/14/2013 4:40 AM EDT 02/14/2013 4:48 AM EDT Orville Martinez MD HEMATOLOGY ORDERABLE S Performing Organization Address [facility] Co de Phone Number HILLARY DUBON * Blue Tube HOLD (02/14/2013 4:40 AM EDT) Blue Hold Sample in lab. HILLARY DUBON Blood specimen (specimen) 02/14/2013 4:40 AM EDT 02/14/2013 4:48 AM EDT Orville Martinez MD HEMATOLOGY ORDERABLE S Performing Organization Address City/State/[facility] Co de Phone Number HILLARY DUBON * Glucose, random (02/14/2013 4:40 AM EDT) Glucose 148 60 - 199 mg/dL [facility] Comment:Diabetes: >=200 mg/d L plus symptoms Blood specimen (specimen) 02/14/2013 4:40 AM EDT 02/14/2013 4:48 AM EDT Narrative Resulting Agency Comment Spec In Lab Orville Martinez MD CHEMISTRY ORDERABLES Performing Organization Address [facility] de Phone Number HILLARY DUBON * Creatinine (02/14/2013 4:40 AM EDT) Creatinine 0.94 0.70 - 1.20 mg/dL CERLEXI ROSARIOENNIUM Comment: Please note that the pediatric reference intervals supplied above were not validated at [facility]. Results from pediatric patients should be interpreted in conjunction to the patient's age, height and muscle mass. Est Glomerular Filtration Rate >60 >=60 CERNER GlassbeamENNIUM Comment: This estimated GFR (eGFR) value was [...] Martinez MD CHEMISTRY ORDERABLES Performing Organization Address [facility] de Phone Number HILLARY HAYESIUM * BUN (02/14/2013 4:40 AM EDT) Blood Urea Nitrogen 14 8 - 18 mg/dL CERLEXI GlassbeamENNIUM Blood specimen (specimen) 02/14/2013 4:40 AM EDT 02/14/2013 4:48 AM EDT Narrative Resulting Agency Comment Spec In Lab Orville Martinez MD CHEMISTRY ORDERABLES Performing Organization Address [facility] de Phone Number CERNER MILLENNIUM [...] In Lab Orville Martinez MD CHEMISTRY ORDERABLES CERNER MILLENNIUM * (ABNORMAL) CBC (with Diff) [...] Lab Orville Martinez MD HEMATOLOGY ORDERABLE S CERNER MILLENNIUM * POCT urine (02/14/2013 4:24 AM EDT) POC Urine HCG Negative (none) POC Control Internal Controls Acceptable (none) Orville Martinez MD POINT OF CARE TEST O RDERABLES * POCT urine dipstick (02/14/2013 4:24 AM EDT) Pathologist [facility] POC Sp [place] 1.020 1.002 - 1.030 POC pH, UA [...] Urinalysis with microscopic (02/14/2013 4:23 AM EDT) Pathologist [facility] Glucose, Urine Dipstick Negative Negative mg/dL CERNER [...] Urine Dipstick Clear Clear CERNER MILLENNIUM Specific [place] Urine Automated 1.013 1.002 - 1.030 CERNER [...] In Lab Orville Martinez MD URINE ORDERABLES CERLEXI DUBON documented in this encounter Visit Diagnoses [...] RN) documented in this encounter Care Teams Sample Tailor Relationship Specialty Start Date End Date None None PCP - General 02/14/13 03/29/13 documented as of this encounter
--- NOTE | 2024-07-17 10:30 | DI.CT_ITS ---
Exam(s) CT HEAD WO EXAM: CT HEAD WO CLINICAL HISTORY: HEADACHE. TECHNIQUE: Imaging Protocol: Axial computed tomography images with coronal and sagittal reformatted images were created and reviewed COMPARISON: CT CT HEAD FOR STROKE PROTOCOL from 11/29/2018 FINDINGS: Ventricles and Extra axial spaces: Normal in size and morphology for the patient's age. Hemorrhage: None. Cerebral parenchyma: No evidence of acute infarct or mass. Midline shift: None. Brainstem/Cerebellum: Normal. Calvarium: Normal. Visualized Paranasal sinuses:Clear. Mastoids: Clear. Soft Tissues: Unremarkable. ORBITS: Unremarkable. PITUITARY: Not enlarged. IMPRESSION: No acute intracranial process. RADIATION DOSE DELIVERED: 802.35mGy.cm Total DLP DATA REPOSITORY: All CT scans at this facility are submitted to the National Radiology Data Registry (NRDR) Dose Index Registry (DIR) with the [employer] (ACR). RADIATION OPTIMIZATION: All CT scans at this facility use at least one of these dose optimization te chniques: automated exposure control; mA and/or kV adjustment per patient size (includes targeted exa ms where dose is matched to clinical indication); or iterative reconstruction.
[2024-07-17 11:08] LABS: HGB 12.1 g/dL (11.2-15.7); MCH 32.1 pg (27.0-33.0); MCHC 34.6 % (32.0-36.0); MCV 93 fL (80-95); MPV 10.6 fL (8.0-11.0); Platelet Count 232 10^3/uL (130-400); RBC 3.77 10^6/uL (3.93-5.22); RDW 14.9 % (11.7-14.6); RDW-SD 51.2 fL
--- NOTE | 2024-07-17 11:12 | W.ED.GENAD ---
Discharge Plan Disposition Patient Disposition: Home Discharge Details Clinical Impression: Headache Primary Care Provider: ELLYN KAHN ED Provider: Sandi Swift Home Meds and New Rx's Prescriptions: New uyoylpnuww-tylctofwrddyt-gdhl [Fioricet] 50-300-40 mg capsule 1 cap PO TID PRN (Reason: headache) Qty: 20 0RF magnesium oxide 400 mg magnesium tablet 400 mg PO DAILY Qty: 30 0RF prochlorperazine maleate [Compazine] 10 mg tablet 10 mg PO TID PRN (Reason: headache, nausea) Qty: 30 0RF No Action (DME) blood-glucose meter [Easy Touch Glucose Monitor] Misc MISCELLANEOUS Patient Comments: Use 1 unit as directed four times a day (DME) Easy Touch Test Strip Strip MISCELLANEOUS Patient Comments: Use 1 strip via meter four times a day acetaminophen [Tylenol] 325 mg Tablet 650 mg PO Q4H PRN PRNQty: 0 0RF Patient Comments: pt states not taking any of her meds because she cant see her PCP metformin 1,000 mg tablet 1,000 mg PO BID Qty: 60 0RF lisinopril 40 mg tablet 40 mg PO DAILY ondansetron HCl 8 mg tablet 8 mg PO TID glipizide 5 mg tablet 5 mg PO DAILY Patient Comments: Take 1 tablet by mouth every morning for diabetes olanzapine 5 mg tablet 5 mg PO .COMPLEX PRN Patient Comments: TAKE 1 TABLET BY MOUTH NIGHTLY ON NIGHTS ONE THROUGH FOUR OF CHEMOTHERAPY Rx Instructions: 5 mg orally as directed PRN; prochlorperazine maleate 10 mg tablet 10 mg PO Q8H PRN Patient Comments: TAKE 1 TABLET BY MOUTH EVERY 6 HOURS NEEDED FOR NAUSEA insulin glargine [Lantus Solostar U-100 Insulin] 100 unit/mL (3 mL) insulin pen 23 unit subcut HS Discharge Instructions Instructions: Headache, Adult ED Additional Instructions: You were given medications today to treat your headache. Your brain scan does not reveal any acute abnormalities cough but if your headache persists, your oncology team may want to evaluate for metastatic lesions. Please make sure you are drinking lots of water at home. Start the magnesium daily. Take the Compazine and the Fioricet as needed to help with headache. You can also continue Tylenol. Please follow-up with your oncology team with any additional symptoms. HPI General Date/Time Provider Initiated Documentation: 07/17/24 10:15. Limitations to Documentation: no limitations. Information obtained by: patient. HPI Narrative: 59-year-old female with past medical history including diabetes, hypertension, malignancy currently on chemotherapy presents for evaluation of 5 days of headache and head pressure. Reports not acute onset. Not associated with fever, photophobia, phonophobia, nausea or vomiting. Notes neck stiffness she reports that she has not had any relief with mtgx-fnf-yhcltfv headache medications. She reports some body aches and sinus fullness. She did discuss the symptoms with her oncology team, and they encouraged her to follow-up for reevaluation of the symptoms did not resolve. She states that her last chemotherapy was on July 10 and reports that the chemotherapy given at that time was a new medication that she had not previously had. Related Data Home Medications ?Medication ?Instructions ?Recorded ?Confirmed acetaminophen 325 mg tablet 650 mg (2 x 325 mg) PO Q4H PRN PRN 11/29/18 07/17/24 (Tylenol) #0 tabs metformin 1,000 mg tablet 1,000 mg PO BID #60 tabs 06/19/23 07/17/24 blood sugar diagnostic (Easy Touch 07/12/23 07/17/24 Test Strip) blood-glucose meter (Easy Touch 07/12/23 07/17/24 Glucose Monitor) lisinopril 40 mg tablet 40 mg PO DAILY 02/17/24 07/17/24 glipizide 5 mg tablet 5 mg PO DAILY 06/21/24 07/17/24 insulin glargine 100 unit/mL (3 23 unit subcut HS 06/21/24 07/17/24 mL) subcutaneous pen (Lantus Solostar U-100 Insulin) olanzapine 5 mg tablet 5 mg PO .COMPLEX PRN 06/21/24 07/17/24 ondansetron HCl 8 mg tablet 8 mg PO TID 06/21/24 07/17/24 prochlorperazine maleate 10 mg 10 mg PO Q8H PRN 06/21/24 07/17/24 tablet kyaugnrynk-yatwmkdisjusk-hmalwmzo 1 cap PO TID PRN headache #20 caps 07/17/24 50 mg-300 mg-40 mg capsule (Fioricet) magnesium oxide 400 mg PO DAILY #30 tabs 07/17/24 prochlorperazine maleate 10 mg 10 mg PO TID PRN headache, nausea 07/17/24 tablet (Compazine) #30 tabs Previous Rx's ?Medication ?Instructions ?Recorded acetaminophen 325 mg tablet 650 mg (2 x 325 mg) PO Q4H PRN PRN 11/29/18 (Tylenol) #0 tabs metformin 1,000 mg tablet 1,000 mg PO BID #60 tabs 06/19/23 jrzuflmsve-rigcizphqfoob-wolkglul 1 cap PO TID PRN headache #20 caps 07/17/24 50 mg-300 mg-40 mg capsule (Fioricet) magnesium oxide 400 mg PO DAILY #30 tabs 07/17/24 prochlorperazine maleate 10 mg 10 mg PO TID PRN headache, nausea 07/17/24 tablet (Compazine) #30 tabs Allergies Allergy/AdvReac Type Severity Reaction Status Date / Time bacitracin Allergy rash Verified 07/17/24 10:06 Sulfa (Sulfonamide Allergy Hives Verified 07/17/24 10:06 Antibiotics) General Stated Complaint: Headache NELSY: 3 Exam Narrative Exam Narrative: Review of Systems: All systems reviewed & are unremarkable except as noted in HPI and below Well-developed, ill-appearing NCAT PERRL, normal conjunctiva bilateral TMs Without effusion bulging or erythema Oropharynx with some missing teeth, no signs of odontogenic infection, no significant cervical adenopathy. 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 Port in chest wall nontender Unlabored respiratory effort clear bilaterally Nondistended abdomen soft nontender no focal neurologic deficits Appropriate mood and affect Course Vital Signs Vital signs: Vital Signs Temperature 36.9 C 07/17/24 10:03 Pulse 111 H 07/17/24 10:03 Respiratory Rate 18 07/17/24 10:03 Blood Pressure 160/110 H 07/17/24 10:03 Pulse Oximetry 98 07/17/24 10:03 Temperature 36.9 C 07/17/24 10:03 Pulse 111 H 07/17/24 10:03 Respiratory Rate 18 07/17/24 10:03 Blood Pressure 160/110 H 07/17/24 10:03 Pulse Oximetry 98 07/17/24 10:03 Pain Level 6 07/17/24 11:06 Medical Decision Making Emergent evaluation of headache and bodyaches. Patient is a cancer patient currently on chemotherapy. She is not having any signs or symptoms concerning for meningitis. She has no obvious signs of infection otherwise on examination. Headache has been ongoing for 5 days. Doubt subarachnoid hemorrhage. She did have a stroke subacutely and is on blood thinner, would also consider hemorrhagic transformation intracranial bleeding. Will get head CT to evaluate. Given her additional body aches and subjective fever chills, would consider viral illness as well. Will give medications to treat her headache and reassess. [address] reviewed, there is no sign of acute process that could be causing her headache. Viral testing is negative. Lab work reviewed and reveals a significant leukocytosis which is secondary to her Onpro administration after chemotherapy She was reporting some minimal signs of improvement but was noted to be intermittently napping to think she was more comfortable than she was indicating additional medication was given and the patient did report improvement but not resolution of her headache symptoms. Recommending some additional medication prescriptions which have been sent to the pharmacy and as well as increased oral intake. Recommend close follow-up with her oncology team. Return precautions advised. Medical Records Medical records reviewed: Yes I reviewed the patient's medical records. Medical records narrative: Followed by [facility] oncology. Malignant neoplasm of left outer quadrant of left breast, estrogen positive received C5 paclitaxel plus onpro 07/10 Quality:SDOH Health Related Social Needs: No Data to Display PFSH All Active Problems (Updated 07/17/24 @ 13:19 by Sandi Swift MD) Headache (Acute) Chest pressure (Acute) No-show for appointment (Acute) Left ACL tear (Acute) Tear of medial meniscus of left knee (Acute ~04/27/23) Lumbago without sciatica (Acute) CAP (community acquired pneumonia) (Acute) Apnea (Acute) Non compliance w medication regimen (Acute) Screening for colon cancer (Acute) GERD (gastroesophageal reflux disease) (Chronic) Type 2 diabetes mellitus (Acute) Constipation (Acute) Erythema multiforme (Acute) Chronic headaches (Acute) Sleeping difficulties (Acute) Benign paroxysmal vertigo (Acute) Arm numbness (Acute) Bilateral carpal tunnel syndrome (Acute) Pulmonary hypertension (Chronic) Diastolic dysfunction (Chronic) Atypical chest pain (Chronic) Herniated nucleus pulposus, C5-6 right (Acute) Diabetes mellitus type 2 in obese (Chronic) Essential hypertension (Chronic) Hypertensive urgency (Acute) Medical History History of depression Herpes simplex Insomnia Complicated grief Early satiety Obesity BPPV (benign paroxysmal positional vertigo) Diabetes mellitus Hypertension Surgical History History of tubal ligation Family History Mother Heart disease Ovarian cancer Social History Smoking/Tobacco Use Status: Never Smoking risk assessment performed?: Yes Alcohol Intake: current Alcohol Intake frequency: holidays/special occasions only Drug use: Never Substance use type: does not use Household members: spouse Housing: house Number of Children: 5 What is your relationship status?: Panel score (0-1 are the most socially isolated patients): 1 Seatbelt use: always Do you feel safe at home: Yes Do you feel safe in your relationship?: Yes History History 6 Para 5 Hx # Term Pregnancies Multiple births Hx # Pregnancies Ectopic pregnancies AB induced Hx Number of Living Children AB spontaneous
[2024-07-17 11:15] LABS: Anion Gap 9.3 mmol/L (3-11); BUN 10 mg/dL (7-18); CO2 27.7 mmol/L (21.0-32.0); CREATININE 0.7 mg/dL (0.55-1.02); Calcium 8.5 mg/dL (8.5-10.1); Chloride 106 mmol/L (98-107); Estimated GFR 98.95 (mL/min/1.73m2); Glucose 161 mg/dL (74-106); Potassium 3.6 mmol/L (3.5-5.1); Sodium 143 mmol/L (136-145)
[2024-07-17 11:16] LABS: Prothrombin Time 10.2 sec (9.1-11.1)
[2024-07-17] MEDS: MAGNESIUM SULFATE 2 GM/50 ML BAG IVINF (11:26)
[2024-07-17] MEDS: Prochlorperazine 10 MG/2 ML VIAL IVP (11:26)
[2024-07-17] MEDS: diphenhydrAMINE 50 MG/ML VIAL 25 MG IVP (11:26)
[2024-07-17 11:37] LABS: Absolute Eosinophil Count 0.37 10^3/uL (0.0-0.7); Absolute Lymphocyte Count 2.19 10^3/uL (1.2-3.4); Absolute Monocyte Count 2.92 10^3/uL (0.1-0.8); Absolute Neutrophil Count 30.32 10^3/uL (1.2-6.7); Atypical Lymphocytes % 2 %; Bands % 15 %; Metamyelocytes % 2; Myelocytes % 0; Other Cells % 0; Promyelocytes % 0
[2024-07-17 11:38] LABS: Anisocytosis 1+; Diff Comment Manual Differential; Polychromasia Present
[2024-07-17 11:40] LABS: WBC 36.53 10^3/uL (4.4-10.8)
[2024-07-17] MEDS: Ondansetron 4 MG/2 ML VIAL IVP (11:58)
[2024-07-17] MEDS: MORPHine 10 MG/ML VIAL 6 MG IVP (11:59)
== END 2024-07-17 13:30 | disposition home or self-care (01) ==
PROVIDERS: Emergency Provider Emergency Medicine; PCP Nurse Practitioner Primary Care
DX: R51.9 Headache, unspecified (principal); C50.412 Malignant neoplasm of upper-outer quadrant of left female breast; C50.512 Malignant neoplasm of lower-outer quadrant of left female breast
CPT/HCPCS: 36415; 80048; 87426; 96365; 96375; 99284; 70450; 85025; 85610; J0780; J1200; J2270; J2405; J3475

== ENCOUNTER 2024-09-21 09:17 | Emergency (ER) | payer BC, SELFPAY ==
[2024-09-21] VITALS (24 sets, daily range): BP systolic 186–216; BP diastolic 105–127; PULSE 84–113; RESP 15–39; TEMP 37; O2SAT 90–98
--- NOTE | 2024-09-21 09:32 | W.ED.GENAD ---
Discharge Plan Disposition Patient Disposition: Home Condition: Good Discharge Details Clinical Impression: Leg pain, right, Elevated blood pressure reading Primary Care Provider: ELLYN KAHN ED Provider: Yokasta Yi Home Meds and New Rx's Prescriptions: New gabapentin 300 mg capsule 300 mg PO TID Qty: 30 0RF Continued (DME) blood-glucose meter [Easy Touch Glucose Monitor] Mis MISCELLANEOUS Patient Comments: Use 1 unit as directed four times a day (DME) Easy Touch Test Strip Strip MISCELLANEOUS Patient Comments: Use 1 strip via meter four times a day diltiazem HCl [Cartia XT] 240 mg capsule,extended release 24hr PO Patient Comments: TAKE 1 CAPSULE BY MOUTH ONCE DAILY DIRECTED FOR BLOOD PRESSURE acetaminophen [Tylenol] 325 mg Tablet 650 mg PO Q4H PRN PRNQty: 0 0RF Patient Comments: pt states not taking any of her meds because she cant see her PCP metformin 1,000 mg tablet 1,000 mg PO BID Qty: 60 0RF lisinopril 40 mg tablet 10 mg PO DAILY ondansetron HCl 8 mg tablet 8 mg PO TID olanzapine 5 mg tablet 5 mg PO .COMPLEX PRN Patient Comments: TAKE 1 TABLET BY MOUTH NIGHTLY ON NIGHTS ONE THROUGH FOUR OF CHEMOTHERAPY Rx Instructions: 5 mg orally as directed PRN; insulin glargine [Lantus Solostar U-100 Insulin] 100 unit/mL (3 mL) insulin pen 23 unit subcut HS magnesium oxide 400 mg magnesium tablet 400 mg PO DAILY Qty: 30 0RF Discharge Instructions Instructions: Leg Pain (ED) Additional Instructions: As we discussed, your blood work was reassuring as was your ultrasound. No evidence of blood clot. However, I am concerned that some of your discomfort may be associated with your chemotherapy and may be associated with nerve pain particularly as you are having some abnormal sensations in both of your legs. I think treating this with a medication that works more closely on nerve pain, such as the gabapentin prescribed, will be of benefit. This has been sent to your local pharmacy. Please take as directed on packaging. Please continue to encourage hydration. Please keep your upcoming appointment with mental health. Referral for palliative care has been sent. Please reach out to the comprehensive breast cancer program at [facility] to discuss some of your surgical options further. If you develop any new or worsening symptoms please seek care urgently once again. Your blood pressure was high while here, please follow-up with your primary care provider discuss this further. Referrals: ELLYN KAHN [Primary Care Provider] - Discharge Data Discharge Date/Time-TO BE ENTERED AT DEPARTURE: 09/21/24 13:19 HPI General Date/Time Provider Initiated Documentation: 09/21/24 09:32. Limitations to Documentation: no limitations. Information obtained by: patient, RN notes reviewed and old records reviewed. History of Present Illness 59 year old F presents to the emergency department with the chief complaint of RLE pain, described as severe, and is localized to the right and lower extremity. Patient started experiencing this day(s) and it has been constant. No relieving factors improve symptom(s), No exacerbating factors reported . Patient notes malaise (associates with chemo) and weakness (chronic in LLE, bilateral numbness); denies chest pain, diaphoresis, fever/chills, nausea/vomiting, rash and shortness of breath. Patient did receive the following treatments prior to arrival, none Related Data Home Medications ?Medication ?Instructions ?Recorded ?Confirmed acetaminophen 325 mg tablet 650 mg (2 x 325 mg) PO Q4H PRN PRN 11/29/18 09/21/24 (Tylenol) #0 tabs metformin 1,000 mg tablet 1,000 mg PO BID #60 tabs 06/19/23 09/21/24 blood sugar diagnostic (Easy Touch 07/12/23 09/21/24 Test Strip) blood-glucose meter (Easy Touch 07/12/23 09/21/24 Glucose Monitor) lisinopril 40 mg tablet 10 mg PO DAILY 02/17/24 09/21/24 insulin glargine 100 unit/mL (3 23 unit subcut HS 06/21/24 09/21/24 mL) subcutaneous pen (Lantus Solostar U-100 Insulin) olanzapine 5 mg tablet 5 mg PO .COMPLEX PRN 06/21/24 09/21/24 ondansetron HCl 8 mg tablet 8 mg PO TID 06/21/24 09/21/24 magnesium oxide 400 mg PO DAILY #30 tabs 07/17/24 09/21/24 diltiazem HCl 240 mg mg PO 09/21/24 capsule,extended release 24 hr (Cartia XT) gabapentin 300 mg capsule 300 mg PO TID #30 caps 09/21/24 Previous Rx's ?Medication ?Instructions ?Recorded acetaminophen 325 mg tablet 650 mg (2 x 325 mg) PO Q4H PRN PRN 11/29/18 (Tylenol) #0 tabs metformin 1,000 mg tablet 1,000 mg PO BID #60 tabs 06/19/23 magnesium oxide 400 mg PO DAILY #30 tabs 07/17/24 gabapentin 300 mg capsule 300 mg PO TID #30 caps 09/21/24 Allergies Allergy/AdvReac Type Severity Reaction Status Date / Time bacitracin Allergy rash Verified 09/21/24 09:51 Sulfa (Sulfonamide Allergy Hives Verified 09/21/24 09:51 Antibiotics) General Stated Complaint: Vascular NELSY: 3 Review of Systems Constitutional Constitutional: Reports as per HPI, Denies chills, Denies fever(s) and Denies headache(s) ENT Ears, Nose, Mouth, and Throat: Denies headache(s) Cardiovascular Cardiovascular: Reports as per HPI Respiratory Respiratory: Reports as per HPI and Denies cough Musculoskeletal Musculoskeletal: Reports as per HPI Integumentary/Breasts Skin/Breast: Reports as per HPI, Denies rash and Denies wounds Neurologic Neurologic: Reports as per HPI, Denies headache(s) and Denies paresthesias Exam Const General: cooperative, comfortable, no acute distress, well developed and well groomed Nutritional Appearance: well nourished and overweight Orientation: alert and awake Resp Effort & Inspection: normal respiratory effort, able to speak in complete sentences and no respiratory distress Cardio Rate: regular rate Rhythm: regular rhythm Skin General skin exam: no rashes or lesions noted Lesions: no lesions Rashes: no rashes Trauma: no lacerations or abrasions Neuro General: patient alert and patient awake Cognition: normal cognition Speech: speech normal Gait: normal gait Motor: muscle tone normal throughout Sensory Exam: no sensory deficits noted Extrem General: capillary refill normal, no joint enlargement, no pedal edema, no calf tenderness, normal gait, no edema and other (right calf 2cm greater than contralateral side) Course Vital Signs Vital signs: Vital Signs Temperature 37.0 C 09/21/24 09:23 Pulse 113 H 09/21/24 09:23 Respiratory Rate 16 09/21/24 09:23 Blood Pressure 193/115 H 09/21/24 09:23 Pulse Oximetry 96 09/21/24 09:23 Temperature 37.0 C 09/21/24 09:23 Temperature Source Oral 09/21/24 09:23 Pulse 113 H 09/21/24 09:23 Respiratory Rate 16 09/21/24 09:23 Blood Pressure 193/115 H 09/21/24 09:23 Blood Pressure Position Sitting 09/21/24 09:23 Pulse Oximetry 96 09/21/24 09:23 Oxygen Delivery Method Room Air 09/21/24 09:23 Oxygen Flow Rate 0 09/21/24 09:23 End Tidal Co2 9 09/21/24 09:23 Medical Decision Making Patient is a pleasant 59-year-old female with past medical history significant for left-sided breast cancer, giant cell arteritis on prednisone taper, stroke in June associated with atrial flutter, anticoagulated on Eliquis, presenting today with complaint of right lower extremity discomfort that began 3 days ago. She states that the leg is felt swollen and uncomfortable, particularly anteriorly. States that she has had some paresthesias bilaterally which in part she associates with stroke, on the left side, as well as associates with a side effect of chemotherapy regimen. However, this discomfort is new and with her history of CVA, patient's concern for DVT. She denies any shortness of breath or chest pain. Has not taken anything for her discomfort today. Patient also endorses some depression, denies any suicidal ideation. Seems to be struggling with upcoming mastectomy and being unclear at this point what route she wants to take regarding bilateral versus unilateral with implant. Has not had any missed doses of her anticoagulation. Did recently decrease her prednisone to 40 mg daily. On exam, patient appears upset but is otherwise hemodynamically stable and appropriate. Exam of the lower extremities revealed to have 2+distal pulses, equal bilateral. Circumference of the right calf is 2 cm greater than the left. However, this is unclear if associated with acute edema versus chronic wasting of the left leg as this is the area where he was affected by her stroke in June. Patient has had antalgic gait but is now ambulating without assistive device. She does note that the left leg is continued is the weaker than the right. No pain with palpation posteriorly. Negative Homans' sign. No palpable cord. Lungs are clear, normal cardiac exam. Have had manufacturing lab technician paged and will see if we are able to get a DVT study today. Will also screen with a D-dimer. Also concerned about patient's mental health and current support system. Have referred her to palliative care, discussed this at length with the patient and she is interested in this. Will also have mental health speak with her. While the patient does not seem to be an acute risk to herself or others, she certainly struggling with current medical condition and would benefit from increased support. I have also try to find a resource for through [facility] regarding her difficult choices with her upcoming mastectomy. Patient D-dimer within normal limits. Out of abundance of caution, ultrasound was still obtained and was also found to be negative. No acute abnormality. Labs were fairly unremarkable, no emergent findings. I discussed this with the patient. She is feeling much improved after speaking with mental health and has a plan to speak with them tomorrow as well. I also did some research for her about Sublocade at [facility], she will be reaching out to the comprehensive breast cancer treatment team. In regard to the right leg pain, she has been developing some bilateral numbness in her lower extremities since beginning her chemotherapy and was warned that this could potentially be a side effect. On questioning of her discomfort as well as the neuropathy is associated without which may be better treated by gabapentin rather than continued on opioids. First dose given here today. She is not able to get to the pharmacy a few more pills are given home for later dosing. I also referred her to palliative care. Return precautions were discussed. All of her questions and concerns were addressed and patient is in agreement with this plan. This documentation was generated using [employer] dictation system, please disregard any oddities of phrase or misspellings. Quality:SDOH Health Related Social Needs: No Data to Display PFSH All Active Problems (Updated 09/21/24 @ 12:17 by LY Vazquez) Elevated blood pressure reading (Acute) Leg pain, right (Acute) No-show for appointment (Acute) Left ACL tear (Acute) Tear of medial meniscus of left knee (Acute ~04/27/23) Lumbago without sciatica (Acute) CAP (community acquired pneumonia) (Acute) Apnea (Acute) Non compliance w medication regimen (Acute) Screening for colon cancer (Acute) GERD (gastroesophageal reflux disease) (Chronic) Type 2 diabetes mellitus (Acute) Constipation (Acute) Erythema multiforme (Acute) Chronic headaches (Acute) Sleeping difficulties (Acute) Benign paroxysmal vertigo (Acute) Arm numbness (Acute) Bilateral carpal tunnel syndrome (Acute) Pulmonary hypertension (Chronic) Diastolic dysfunction (Chronic) Atypical chest pain (Chronic) Herniated nucleus pulposus, C5-6 right (Acute) Diabetes mellitus type 2 in obese (Chronic) Essential hypertension (Chronic) Hypertensive urgency (Acute) Medical History History of depression Herpes simplex Insomnia Complicated grief Early satiety Obesity BPPV (benign paroxysmal positional vertigo) Diabetes mellitus Hypertension Surgical History History of tubal ligation Family History Mother Heart disease Ovarian cancer Social History Smoking/Tobacco Use Status: Never Smoking risk assessment performed?: Yes Alcohol Intake: former Drug use: Never Substance use type: does not use Household members: spouse Housing: house Number of Children: 5 What is your relationship status?: Panel score (0-1 are the most socially isolated patients): 1 Seatbelt use: always Do you feel safe at home: Yes Do you feel safe in your relationship?: Yes History History 6 Para 5 Hx # Term Pregnancies Multiple births Hx # Pregnancies Ectopic pregnancies AB induced Hx Number of Living Children AB spontaneous
[2024-09-21] MEDS: oxyCODONE 5 MG TAB PO (10:08)
[2024-09-21 10:09] LABS: Abs Immature Grans 0.08 10^3/uL (0.0-0.06); Absolute Basophil Count 0.06 10^3/uL (0.0-0.2); Absolute Eosinophil Count 0.19 10^3/uL (0.0-0.7); Absolute Lymphocyte Count 0.99 10^3/uL (1.2-3.4); Absolute Neutrophil Count 8.88 10^3/uL (1.2-6.7); Basophils % 0.5 %; Eosinophils % 1.7 %; HCT 38.8 % (36.0-46.0); HGB 13.1 g/dL (11.2-15.7); Immature Grans % 0.7 %; Lymphocytes % 8.9 %; MCH 32.8 pg (27.0-33.0); MCHC 33.8 % (32.0-36.0); MCV 97 fL (80-95); MPV 9.9 fL (8.0-11.0); Monocytes % 8.1 %; Neutrophils % 80.1 %; Platelet Count 354 10^3/uL (130-400); RBC 3.99 10^6/uL (3.93-5.22); RDW-SD 43.2 fL; WBC 11.08 10^3/uL (4.4-10.8)
[2024-09-21 10:24] LABS: PTT Activated 23.6 sec (20.6-30.2); Prothrombin Time 10.4 sec (9.1-11.1)
[2024-09-21 10:26] LABS: ALT 20 U/L (14-59); AST 8 U/L (15-37); Albumin 3.3 g/dL (3.4-5.0); Alkaline Phosphatase 103 U/L (46-116); Anion Gap 8.5 mmol/L (3-11); BUN 20 mg/dL (7-18); Bilirubin, Total 0.26 mg/dL (0.2-1.0); CO2 27.5 mmol/L (21.0-32.0); CREATININE 0.7 mg/dL (0.55-1.02); Calcium 9.3 mg/dL (8.5-10.1); Chloride 104 mmol/L (98-107); Estimated GFR 98.95 (mL/min/1.73m2); Glucose 288 mg/dL (74-106); Potassium 3.5 mmol/L (3.5-5.1); Sodium 140 mmol/L (136-145); Total Protein 6.5 g/dL (6.4-8.2)
[2024-09-21] MEDS: Lisinopril 10 MG TAB PO (10:27)
[2024-09-21] MEDS: dilTIAZem CD 120 MG CAPCR 240 MG PO (10:27)
[2024-09-21 10:49] LABS: D-Dimer 219 ng/mlFEU (<500)
--- NOTE | 2024-09-21 10:58 | PDOC.MHCN_ITS ---
Date of service: 09/21/24 Time of Service: 10:44 PHQ-9 Over the last 2 weeks, how often have you been bothered by any of the following problems? 1. Little interest or pleasure in doing things: several days 2. Feeling down, depressed, or hopeless: more than half the days 3. Trouble falling or staying asleep, or sleeping too much: nearly every day 4. Feeling tired or having little energy: more than half the days 5. Poor appetite or overeating: several days 6. Feeling bad about yourself - or that you are a failure or have let yourself and your family down: several days 7. Trouble concentrating on things, such as reading the newspaper or watching television: not at all 8. Moving or speaking so slowly that other people could have noticed? - Or the opposite - being so fidgety or restless that you have been moving around a lot more than usual: not at all 9. Thoughts that you would be better off or of hurting yourself in some way: not at all Total score: 10 Source: Developed by Drs. Heriberto Regalado, Caroline Valentine, Jose Taylor and colleagues, with an educational natalee from [employer]. Suicide Severity Rate CSSRS Have you wished you were or wished you could go to sleep and not wake up?: No Have you actually had any thoughts of killing yourself?: No CSSRS3 Have you ever done anything, started to do anything or prepared to do anything to end your life?: No Screening Score Total Score: 0 Screening: Negative Mental Health Emergency Note Release [facility] release signed:: Yes Reason for Visit Martha presented to [facility] to medical issues but is being seen today due to recent life events In the last 2 weeks has the pt presented for ES prior to today?: Unknown Client Information Client is: New Well Housed: Yes Non Suicidal Self Injury Current: No History: No Safety Risk/Harm to Self or Others Current Ideation to Harm Self or Others: No Risk: Does risk to harm exist?: No Risk: N/A Duty to warn indicated: No Asssessment/Mental Status Appearance: Unremarkable Attitude: Cooperative Behavior: Unremarkable Speech: Normal Affect: Cogruent with mood Mood: Sad and Stressed Thought process: Unremarkable Hallucinations: No evidence Delusions: No evidence Attention: Unremarkable Perception: Not impaired Orientation: Fully orientated Memory: Intact Insight: Good Judgement: Good Neurovegetative Symptoms Sleep: Decrease Appetitie: No change Interests: Decrease Energy: Decrease Libido: Not applicable Substance Use: Do you use nicotine?: No Have you used substances in the last 7 days?: No Additional Issues: Assaultive/Threatening Behavior: No Medical Concerns: No Client engaged in active self harm w/weapon: No Threatening to run away: No Child reported abuse/neglect: No Voluntarily presenting for services: Yes Domestic violence is a concern: No Extreme Psychosis or extreme behavior is present: No Impression Martha is a [age] year old, , female who is not previously known to [facility]. Martha presented to [facility] today due to medical issues and the provider asked for this documentation writer to speak with Martha as she was seen tearful regarding current life stressors. Martha presents to this documentation writer laying in the hospital bed, Martha reports she is okay very stressed out. Martha reports she was diagnosed with cancer in February and received her last chemo treatment about one month ago. Martha is currently waiting for a surgery date to have one of her breasts removed and is trying to make the hard decision of if she is going to have both removed. Martha also recently suffered from a stroke and has a few other medical issues happening as well. Martha reports she has a good support system between her and her daughters and she has a cancer team down in [facility]. Martha is not set up with a therapist and is interested in beginning this service. Martha reports poor sleep and that she has always had a difficult time with sleep. Martha reports no changes to her appetite, and reports she is getting frustrated that she cannot really do anything. Martha is not endorsing SI, HI, or NSSI at this time. Resources Reosurces reviewed and given:: [id number] Plan/Disposition Recommended Disposition: [facility] Services [facility] Services: Therapy. Plan: Martha is in need of outpatient supports like case management and therapy which she is open to as well as an in person check in at her home [address] [place] [address] in [facility] on SundaySeptember 24 in the afternoon. Person reported agreement to plan: Yes Reports/communication Outcome discussed with: ED/Personnel
--- NOTE | 2024-09-21 11:00 | DI.US_ITS ---
Exam(s) US LOWER EXTREMITY VENOUS RT EXAM: US LOWER EXTREMITY VENOUS RT CLINICAL HISTORY: RLE swelling, pain, hx of clot. TECHNIQUE: Lower extremity venous ultrasound performed using grayscale, color-flow, and spectral Do ppler analysis. COMPARISON: No exams were available for comparison FINDINGS: The common femoral, femoral and popliteal veins demonstrate normal compressibility, augmentation, and color Doppler. The posterior tibial and peroneal veins are patent. No saphenous vein thrombosis or other superficial venous thrombosis is seen. No hematoma or Arce's cyst is seen. IMPRESSION: Negative lower extremity ultrasound. No evidence of DVT. DATA REPOSITORY:
--- NOTE | 2024-09-21 12:10 | DI.VRAD_ITS ---
PROCEDURE INFORMATION: Exam: US Duplex Right Lower Extremity Veins, Limited Exam date and time: 09/21/2024 11:34 AM Age: 59 years old Clinical indication: Other: RT posterior calf/medial RT foot cramping TECHNIQUE: Imaging protocol: Real-time duplex ultrasound of the right extremity with 2-D mehta scale, color Doppler flow and spectral waveform analysis including responses to compression and other maneuvers (when performed) with image documentation. Limited exam was focused on the right lower extremity veins. COMPARISON: No relevant prior studies available. FINDINGS: Right deep veins: Unremarkable. The common femoral, femoral, proximal profunda femoral and popliteal veins are patent without thrombus. Normal Doppler waveforms. Normal compressibility and/or augmentation response. Superficial veins: Greater saphenous vein at the saphenofemoral junction is patent without thrombus. Soft tissues: Unremarkable. IMPRESSION: No evidence of deep vein thrombosis. Dictated and Authenticated by: Mike Irvin MD. Orderin Kd Templeton MD
[2024-09-21] MEDS: Gabapentin 300 MG CAP PO (12:24)
[2024-09-21] MEDS: Gabapentin 300 MG CAP 900 MG PO (12:45)
--- NOTE | 2024-09-21 13:25 | NUR.NOTE ---
gabapentin x 3 given to pt to take homeNursing Note:
== END 2024-09-21 13:19 | disposition home or self-care (01) ==
PROVIDERS: Emergency Provider Physician Assistant; PCP Nurse Practitioner Primary Care
DX: M79.661 Pain in right lower leg (principal); E11.9 Type 2 diabetes mellitus without complications; I10 Essential (primary) hypertension; M31.6 Other giant cell arteritis; C50.919 Malignant neoplasm of unspecified site of unspecified female breast; Z86.73 Personal history of transient ischemic attack (TIA), and cerebral infarction without residual deficits; Z79.4 Long term (current) use of insulin; Z79.84 Long term (current) use of oral hypoglycemic drugs; Z79.52 Long term (current) use of systemic steroids; Z92.21 Personal history of antineoplastic chemotherapy
CPT/HCPCS: 00123; 36415; 80053; 96127; 99284; 85025; 85379; 85610; 85730; 93971

== ENCOUNTER 2025-04-04 19:49 | Emergency (ER) | payer BC, SELFPAY ==
[2025-04-04] VITALS (7 sets, daily range): BP systolic 170–195; BP diastolic 128–136; PULSE 98–129; RESP 13–23; TEMP 36.6; O2SAT 94–98
--- NOTE | 2025-04-04 20:00 | DI.RAD_ITS ---
Exam(s) XR CHEST 2V PA LATERAL EXAM: XR CHEST 2V PA LATERAL CLINICAL HISTORY: cough. TECHNIQUE: 2D digital imaging was performed. COMPARISON: CR,XR XR CHEST 2V PA LATERAL from 04/21/2023 FINDINGS: 2 views: Heart size is normal. The mediastinum is not widened. Lungs are clear. No infiltrates nor pleural effusions. Surgical clips are now evident in the left axilla, not previously present in 2022. IMPRESSION: No acute pulmonary findings. DATA REPOSITORY: RADIATION DOSE DELIVERED:
--- NOTE | 2025-04-04 20:17 | W.ED.GENAD ---
Discharge Plan Disposition Patient Disposition: Home Condition: Stable Discharge Details Clinical Impression: Respiratory infection Primary Care Provider: ELLYN KAHN ED Provider: Dusty Israel Home Meds and New Rx's Prescriptions: New doxycycline hyclate 100 mg tablet 100 mg PO BID Qty: 27 0RF amoxicillin-pot clavulanate 875-125 mg tablet 1 tab PO BID Qty: 14 0RF Continued gabapentin 300 mg capsule 600 mg PO TID prednisone 20 mg tablet 5 mg PO DAILY (DME) blood-glucose meter [Easy Touch Glucose Monitor] Misc MISCELLANEOUS Patient Comments: Use 1 unit as directed four times a day (DME) Easy Touch Test Strip Strip MISCELLANEOUS Patient Comments: Use 1 strip via meter four times a day diltiazem HCl [Cartia XT] 240 mg capsule,extended release 24hr 240 mg PO DAILY Patient Comments: TAKE 1 CAPSULE BY MOUTH ONCE DAILY DIRECTED FOR BLOOD PRESSURE acetaminophen [Tylenol] 325 mg Tablet 650 mg PO Q4H PRN PRNQty: 0 0RF Patient Comments: pt states not taking any of her meds because she cant see her PCP metformin 1,000 mg tablet 1,000 mg PO BID Qty: 60 0RF lisinopril 40 mg tablet 10 mg PO DAILY ondansetron HCl 8 mg tablet 8 mg PO TID olanzapine 5 mg tablet 5 mg PO .COMPLEX PRN Patient Comments: TAKE 1 TABLET BY MOUTH NIGHTLY ON NIGHTS ONE THROUGH FOUR OF CHEMOTHERAPY Rx Instructions: 5 mg orally as directed PRN; insulin glargine [Lantus Solostar U-100 Insulin] 100 unit/mL (3 mL) insulin pen 23 unit subcut HS magnesium oxide 400 mg magnesium tablet 400 mg PO DAILY Qty: 30 0RF Discharge Instructions Additional Instructions: Take the antibiotic as prescribed. Follow-up with your primary care provider this week if not improving. If you feel more ill or have new symptoms such as persistent vomiting or high fevers return to the emergency department for reevaluation. HPI General Mode of arrival: ambulatory. Date/Time Provider Initiated Documentation: 04/04/25 19:51. Limitations to Documentation: no limitations. Information obtained by: patient. History of Present Illness 60 year old F presents to the emergency department with the chief complaint of cough, described as moderate, Patient started experiencing this day(s) (1) and it has been constant. No relieving factors improve symptom(s), No exacerbating factors reported . Patient notes cough and nausea/vomiting; denies chest pain. Patient did receive the following treatments prior to arrival, none Related Data Home Medications ?Medication ?Instructions ?Recorded ?Confirmed acetaminophen 325 mg tablet 650 mg (2 x 325 mg) PO Q4H PRN PRN 11/29/18 04/04/25 (Tylenol) #0 tabs metformin 1,000 mg tablet 1,000 mg PO BID #60 tabs 06/19/23 04/04/25 blood sugar diagnostic (Easy Touch 07/12/23 04/04/25 Test Strip) blood-glucose meter (Easy Touch 07/12/23 04/04/25 Glucose Monitor) lisinopril 40 mg tablet 10 mg PO DAILY 02/17/24 04/04/25 insulin glargine 100 unit/mL (3 23 unit subcut HS 06/21/24 04/04/25 mL) subcutaneous pen (Lantus Solostar U-100 Insulin) olanzapine 5 mg tablet 5 mg PO .COMPLEX PRN 06/21/24 04/04/25 ondansetron HCl 8 mg tablet 8 mg PO TID 06/21/24 04/04/25 magnesium oxide 400 mg PO DAILY #30 tabs 07/17/24 04/04/25 diltiazem HCl 240 mg 240 mg PO DAILY 09/21/24 04/04/25 capsule,extended release 24 hr (Cartia XT) gabapentin 300 mg capsule 600 mg PO TID 09/26/24 04/04/25 prednisone 20 mg tablet 5 mg PO DAILY 09/26/24 04/04/25 amoxicillin 875 mg-potassium 1 tab PO BID #14 tabs 04/04/25 clavulanate 125 mg tablet doxycycline hyclate 100 mg tablet 100 mg PO BID #27 tabs 04/04/25 Previous Rx's ?Medication ?Instructions ?Recorded acetaminophen 325 mg tablet 650 mg (2 x 325 mg) PO Q4H PRN PRN 11/29/18 (Tylenol) #0 tabs metformin 1,000 mg tablet 1,000 mg PO BID #60 tabs 06/19/23 magnesium oxide 400 mg PO DAILY #30 tabs 07/17/24 amoxicillin 875 mg-potassium 1 tab PO BID #14 tabs 04/04/25 clavulanate 125 mg tablet doxycycline hyclate 100 mg tablet 100 mg PO BID #27 tabs 04/04/25 Allergies Allergy/AdvReac Type Severity Reaction Status Date / Time bacitracin Allergy rash Verified 04/04/25 19:59 Sulfa (Sulfonamide Allergy Hives Verified 04/04/25 19:59 Antibiotics) General Stated Complaint: GenMedical NELSY: 3 Review of Systems All systems reviewed & are unremarkable except as noted in HPI and below Constitutional Constitutional: Denies chills, Denies fever(s) and Denies weakness Cardiovascular Cardiovascular: Denies chest pain and Reports dyspnea Respiratory Respiratory: Reports cough and Reports dyspnea Gastrointestinal Gastrointestinal: Denies abdominal pain, Denies nausea and Denies vomiting Neurologic Neurologic: Denies weakness Exam Const General: no acute distress Orientation: alert HENMT Head: normal to inspection Ears: external ears normal General nose exam: external nose normal Mouth: moist mucous membranes Eyes General: appearance normal, both eyes and all related structures Neck Neck: normal visual inspection Resp Effort & Inspection: normal respiratory effort and able to speak in complete sentences Auscultation: clear to auscultation bilaterally Cardio Jugular venous pressure: no JVD Rate: regular rate GI Palpation: soft and nontender Skin General skin exam: no rashes or lesions noted Neuro General: patient alert and patient oriented x3 Extrem General: normal to inspection Psych Mental Status: mental status grossly normal Course Vital Signs Vital signs: Vital Signs Temperature 36.6 C 04/04/25 19:56 Pulse 129 H 04/04/25 19:56 Respiratory Rate 16 04/04/25 19:56 Blood Pressure 179/128 H 04/04/25 19:56 Pulse Oximetry 98 04/04/25 19:56 Temperature 36.6 C 04/04/25 20:01 Pulse 129 H 04/04/25 20:01 Respiratory Rate 16 04/04/25 20:01 Blood Pressure 179/128 H 04/04/25 20:01 Pulse Oximetry 98 04/04/25 20:01 Medical Decision Making 60-year-old female with a history of pulmonary hypertension, type 2 diabetes, breast cancer states she is not getting chemotherapy currently, comes in with looking up with a productive cough this morning and when she has a coughing fit she has had an episode of vomiting. Denies any fevers, chills, chest pain. She says when she is coughing persistently feels short of breath but otherwise does not have shortness of breath when she not coughing. She speaking full sentences clearly. She has clear lung sounds, she is intermittently coughing during the exam. Given the cough we will proceed with checking a CBC and CMP and a chest x-ray treat her symptoms with steroids reassess. She has no abdominal tenderness and I doubt intra-abdominal pathology such as small bowel obstruction. X-ray on my read shows no acute findings, labs show mild elevation of LFTs. Patient is stable and feeling improved. She has absolutely no abdominal tenderness. No guarding or rebound. I suspect her respiratory infection given her cough, I go to start her on doxycycline and augmentin. She is stable for discharge and will follow-up with her PCP, return precautions given. Differential Diagnosis Differential Diagnosis: Posttussive emesis, pneumonia, URI PFSH All Active Problems (Updated 04/04/25 @ 21:33 by Dusty Israel MD) Respiratory infection (Acute) Acute pain of right lower extremity (Acute) Cancer of left breast (Acute) No-show for appointment (Acute) Left ACL tear (Acute) Tear of medial meniscus of left knee (Acute ~04/27/23) Lumbago without sciatica (Acute) CAP (community acquired pneumonia) (Acute) Apnea (Acute) Non compliance w medication regimen (Acute) Screening for colon cancer (Acute) GERD (gastroesophageal reflux disease) (Chronic) Type 2 diabetes mellitus (Acute) Constipation (Acute) Erythema multiforme (Acute) Chronic headaches (Acute) Sleeping difficulties (Acute) Benign paroxysmal vertigo (Acute) Arm numbness (Acute) Bilateral carpal tunnel syndrome (Acute) Pulmonary hypertension (Chronic) Diastolic dysfunction (Chronic) Atypical chest pain (Chronic) Herniated nucleus pulposus, C5-6 right (Acute) Diabetes mellitus type 2 in obese (Chronic) Essential hypertension (Chronic) Hypertensive urgency (Acute) Medical History (Updated 04/04/25 @ 21:33 by Dusty Israel MD) Palliative care patient History of depression Herpes simplex Insomnia Complicated grief Early satiety Obesity BPPV (benign paroxysmal positional vertigo) Diabetes mellitus Hypertension Surgical History History of tubal ligation Family History Mother Heart disease Ovarian cancer Social History Smoking/Tobacco Use Status: Never Smoking risk assessment performed?: Yes Alcohol Intake: former Drug use: Never Substance use type: does not use Household members: spouse Housing: house Number of Children: 5 What is your relationship status?: Panel score (0-1 are the most socially isolated patients): 1 Seatbelt use: always Do you feel safe at home: Yes Do you feel safe in your relationship?: Yes History History 6 Para 5 Hx # Term Pregnancies Multiple births Hx # Pregnancies Ectopic pregnancies AB induced Hx Number of Living Children AB spontaneous
[2025-04-04] MEDS: Normal Saline 1,000 ML 1000 ML IV (20:34)
[2025-04-04] MEDS: methylPREDNISolone SUCC 125 MG VIAL IVP (20:35)
[2025-04-04 20:43] LABS: Abs Immature Grans 0.02 10^3/uL (0.0-0.06); HCT 42.9 % (36.0-46.0); HGB 15.0 g/dL (11.2-15.7); Immature Grans % 0.3 %; MCH 31.0 pg (27.0-33.0); MCHC 35.0 % (32.0-36.0); MCV 89 fL (80-95); MPV 11.1 fL (8.0-11.0); Platelet Count 297 10^3/uL (130-400); RBC 4.84 10^6/uL (3.93-5.22); RDW 12.3 % (11.7-14.6); RDW-SD 40.1 fL; WBC 6.29 10^3/uL (4.4-10.8)
[2025-04-04 20:58] LABS: ALT 121 U/L (14-59); AST 82 U/L (15-37); Albumin 4.0 g/dL (3.4-5.0); Alkaline Phosphatase 147 U/L (46-116); Anion Gap 10.0 mmol/L (3-11); BUN 12 mg/dL (7-18); Bilirubin, Total 0.3 mg/dL (0.2-1.0); CO2 27.0 mmol/L (21.0-32.0); Calcium 9.5 mg/dL (8.5-10.1); Chloride 106 mmol/L (98-107); Estimated GFR 72.73 (mL/min/1.73m2); Glucose 373 mg/dL (74-106); Magnesium 1.7 mg/dL (1.8-2.4); Potassium 4.0 mmol/L (3.5-5.1); Sodium 143 mmol/L (136-145); Total Protein 7.3 g/dL (6.4-8.2)
[2025-04-04 21:20] LABS: COVID-19 PCR Negative (Negative); RSV PCR Negative (Negative)
[2025-04-04 21:35] LABS: Glucose 500 mg/dL (Negative)
[2025-04-04] MEDS: Doxycycline Hyclate 100 MG CAP PO (21:49)
--- NOTE | 2025-04-04 21:56 | DI.VRAD_ITS ---
PROCEDURE INFORMATION: Exam: XR Chest Exam date and time: 04/04/2025 8:15 PM Age: 60 years old Clinical indication: Cough TECHNIQUE: Imaging protocol: Radiologic exam of the chest. Views: 2 views. COMPARISON: CT CHEST PE CTA 06/21/2024 3:08 PM FINDINGS: Lungs: Subtle patchy airspace opacities are projected over the left cardiac margin, likely within the left lower lobe. The lungs are otherwise clear. Pleural spaces: No pleural effusion or pneumothorax. Heart/Mediastinum: The heart is normal size. Bones/joints: Unremarkable. Soft tissues: Surgical clips are projected over the left axilla and left breast suggesting prior joel dissection and lumpectomy. IMPRESSION: Patchy opacities within the left lower lobe suspicious for aspiration/infection. Short interval follow-up is recommended to exclude underlying pulmonary pathology. Dictated and Authenticated by: Asiya Manning MD. Orderin Jhonatan Montano MD
== END 2025-04-04 21:56 | disposition home or self-care (01) ==
PROVIDERS: Emergency Provider Emergency Medicine; PCP Nurse Practitioner Primary Care
DX: J98.8 Other specified respiratory disorders (principal); I27.20 Pulmonary hypertension, unspecified; I48.92 Unspecified atrial flutter; E11.9 Type 2 diabetes mellitus without complications; I10 Essential (primary) hypertension; Z79.84 Long term (current) use of oral hypoglycemic drugs
CPT/HCPCS: 80053; 87637; 96361; 96374; 99284; 71046; 81003; 83735; 85025; J2919

== ENCOUNTER 2025-07-18 12:13 | Emergency (ER) | payer BC, SELFPAY ==
[2025-07-18 12:17] VITALS: BP 184/112; PULSE 114; RESP 20; TEMP 37; O2SAT 95
--- NOTE | 2025-07-18 12:30 | RT.EKG_ITS ---
APPROVED REPORT Exam: Resting ECG Reason for Exam: sob Patient Location: E HR:97 bpm ECG Measurements Heart Rate 97 AXIS IL 133 P 29 QRSd 78 QRS 11 QT 354 T 5 QTc 450 Conclusion Sinus rhythm...normal P axis, V-rate 60- 99 No STEMI
--- NOTE | 2025-07-18 12:30 | DI.CT_ITS ---
Exam(s) CT CHEST PE CTA EXAM: CT CHEST PE CTA CLINICAL HISTORY: sob, tachy hx of malignancy. TECHNIQUE: Imaging Protocol: CT angiography of the chest was performed using pulmonary embolus protocol. Multi planar reconstructions were performed. CONTRAST MATERIAL: Intravenous: Omnipaque 350 Contrast volume: 100 cc COMPARISON: CT CT CHEST PE CTA from 06/21/2024 FINDINGS: CHEST: PULMONARY ARTERIES: There are no intraluminal filling defects to suggest acute pulmonary emboli. LUNGS: There is significant infiltrate in the left lung apex as well as subpleural infiltrate in the anterior segment of the left upper lobe posterior to the unilateral left breast implant. There is also some high ground-glass infiltrate throughout both lung hess. There are no associated pleural ef fusions.. MEDIASTINUM: There is no hilar nor mediastinal adenopathy. Visualized thyroid unremarkable. CARDIAC: Heart size is normal. There is no pericardial effusion.Caliber of the thoracic aorta is within normal limits. No evidence of dissection. There is no significant shift of the interventricular septum. PARTIALLY VISUALIZED UPPERMOST ABDOMEN: There is no IV contrast reflux into the intrahepatic IVC. No adrenal masses. OSSEOUS: No significant osseous lesions.No fractures.. IMPRESSION: 1. No evidence of acute pulmonary emboli. No evidence of pulmonary infarction. 2. There is significant infiltrate in the apical segment of the left upper lobe as well as anteriorly in left upper lobe at subpleural location subjacent to the unilateral left breast prosthesis.. Findings may be related to post radiation pneumonitis, infectious etiology, or probably a combination of both. 3. In addition, there are subtle ground-glass increased markings throughout both lung hess, possibly infectious. There are no pleural effusions evident. Preliminary V rad report was reviewed. RADIATION DOSE DELIVERED: 92.91mGy.cm Total DLP DATA REPOSITORY: All CT scans at this facility are submitted to the National Radiology Data Registry (NRDR) Dose Index Registry (DIR) with the [employer] [place] [employer] ([employer]). RADIATION OPTIMIZATION: All CT scans at this facility use at least one of these dose optimization techniques: automated exposure control; mA and/or kV adjustment per patient size (includes targeted exams where dose is matched to clinical indication); or iterative reconstruction.
[2025-07-18 12:35] VITALS: BP 184/112; PULSE 114; RESP 20; TEMP 37; O2SAT 95
[2025-07-18 13:14] LABS: Abs Immature Grans 0.02 10^3/uL (0.0-0.06); HCT 43.1 % (36.0-46.0); HGB 14.6 g/dL (11.2-15.7); Immature Grans % 0.4 %; MCH 30.5 pg (27.0-33.0); MCHC 33.9 % (32.0-36.0); MCV 90 fL (80-95); MPV 11.2 fL (8.0-11.0); Platelet Count 261 10^3/uL (130-400); RBC 4.78 10^6/uL (3.93-5.22); RDW 11.4 % (11.7-14.6); RDW-SD 37.7 fL; WBC 4.97 10^3/uL (4.4-10.8)
--- NOTE | 2025-07-18 13:15 | RT.EKG_ITS ---
APPROVED REPORT Exam: Resting ECG Reason for Exam: chest pain Patient Location: E HR:88 bpm ECG Measurements Heart Rate 88 AXIS OR 134 P 41 QRSd 78 QRS 21 QT 356 T 20 QTc 430 Conclusion Sinus rhythm...normal P axis, V-rate 60- 99 Low voltage, precordial leads...precordial leads <1.0mV No STEMI
[2025-07-18] MEDS: ACETAMINOPHEN 1,000 MG/100 ML BAG 400 MG IVPB (13:20)
[2025-07-18] MEDS: Normal Saline 1,000 ML 1000 ML IV (13:20)
[2025-07-18 13:34] LABS: Troponin I 5 ng/L (<35)
[2025-07-18 13:36] LABS: ALT 33 U/L (10-49); AST 25 U/L (<34); Albumin 4.2 g/dL (3.2-5.0); Alkaline Phosphatase 151 U/L (46-116); Anion Gap 7.7 mmol/L (3-11); BUN 14 mg/dL (9-23); Bilirubin, Total 0.3 mg/dL (0.2-1.2); CO2 27.3 mmol/L (20.0-31.0); Calcium 9.0 mg/dL (8.3-10.6); Chloride 107 mmol/L (98-107); Glucose 213 mg/dL (74-106); Lipase 27 U/L (<53); Magnesium 1.7 mg/dL (1.6-2.6); Potassium 3.9 mmol/L (3.5-5.1); Sodium 142 mmol/L (136-145); Total Protein 6.7 g/dL (5.7-8.2)
[2025-07-18 13:46] LABS: INR 1.0 (0.9-1.1); PTT Activated 26.1 sec (20.6-30.2); Prothrombin Time 9.6 sec (9.1-11.1)
[2025-07-18] MEDS: Normal Saline Flush 10 ML SYR IVP (13:58)
[2025-07-18] MEDS: Normal Saline - Diluent 50 ML VIAL IJ (13:58)
[2025-07-18] MEDS: Omnipaque 350 MG/ML 100 ML BTL IJ (13:59)
--- NOTE | 2025-07-18 14:13 | DI.VRAD_ITS ---
PROCEDURE INFORMATION: Exam: CTA Chest With Contrast Exam date and time: 07/18/2025 1:49 PM Age: 60 years old Clinical indication: Other: SOB tachy HX of malignancy TECHNIQUE: Imaging protocol: Computed tomographic angiography of the chest with contrast. Exam focused on the arteries. 3D rendering (Not supervised by radiologist): MIP and/or 3D reconstructed images were created by the technologist. Radiation optimization: All CT scans at this facility use at least one of these dose optimization techniques: automated exposure control; mA and/or kV adjustment per patient size (includes targeted exams where dose is matched to clinical indication); or iterative reconstruction. Contrast material: OMNI 350; Contrast volume: 100 ml; Contrast route: INTRAVENOUS (IV); COMPARISON: CT CHEST PE CTA 12/19/2020 10:56 PM FINDINGS: Pulmonary arteries: No acute pulmonary emboli. Aorta: Unremarkable. No aortic aneurysm. No aortic dissection. Lungs: See Soft tissues finding. Pleural spaces: Unremarkable. No pneumothorax. No pleural effusion. Heart: Minimal calcification of the mitral valve annulus particularly small-sized hiatal hernia. Lymph nodes: Unremarkable. No enlarged lymph nodes. Bones/joints: Multilevel thoracic spine degenerative disc space narrowing and osteophyte formation. Soft tissues: Changes of prior left mastectomy with left breast prosthesis. Multiple surgical clips within the left axilla and left chest wall. Patchy ground-glass and consolidative opacities within the left lung apex and periphery of the left upper lobe, most compatible with radiation pneumonitis/scarring from left breast therapy. IMPRESSION: 1. No acute pulmonary emboli. 2. Patchy ground-glass and consolidative opacities within the left lung apex and periphery of the left upper lobe, most compatible with radiation pneumonitis/scarring from left breast therapy. Dictated and Authenticated by: Milton Rodriguez MD. Orderin Hu Tsang MD
[2025-07-18 14:20] LABS: Glucose 500 mg/dL (Negative)
[2025-07-18] MEDS: Droperidol 5 MG/2 ML VIAL 2.5 MG IVP (14:22)
[2025-07-18] MEDS: diphenhydrAMINE 50 MG/ML VIAL 12.5 MG IVP (14:23)
--- NOTE | 2025-07-18 14:24 | W.ED.GENAD ---
Discharge Plan Disposition Patient Disposition: Home Discharge Details Clinical Impression: COVID-19 Primary Care Provider: ELLYN KAHN ED Provider: Sharan Lui Home Meds and New Rx's Prescriptions: New Paxlovid 300 mg (150 mg x 2)-100 mg tablets,dose pack See Rx Instructions .ROUTE .COMPLEX Qty: 30 0RF Rx Instructions: take TWO 150 mg tablets of nirmatrelvir with ONE 100 mg tablet of ritonavir twice daily for 5 days ipratropium bromide 17 mcg/actuation HFA aerosol inhaler 2 puff inhalation QID Qty: 12.9 0RF No Action gabapentin 300 mg capsule 600 mg PO TID prednisone 20 mg tablet 5 mg PO DAILY (DME) blood-glucose meter [Easy Touch Glucose Monitor] Mis MISCELLANEOUS Patient Comments: Use 1 unit as directed four times a day (DME) Easy Touch Test Strip Strip MISCELLANEOUS Patient Comments: Use 1 strip via meter four times a day diltiazem HCl [Cartia XT] 240 mg capsule,extended release 24hr 240 mg PO DAILY Patient Comments: TAKE 1 CAPSULE BY MOUTH ONCE DAILY DIRECTED FOR BLOOD PRESSURE acetaminophen [Tylenol] 325 mg Tablet 650 mg PO Q4H PRN PRNQty: 0 0RF Patient Comments: pt states not taking any of her meds because she cant see her PCP metformin 1,000 mg tablet 1,000 mg PO BID Qty: 60 0RF lisinopril 40 mg tablet 10 mg PO DAILY ondansetron HCl 8 mg tablet 8 mg PO TID olanzapine 5 mg tablet 5 mg PO .COMPLEX PRN Patient Comments: TAKE 1 TABLET BY MOUTH NIGHTLY ON NIGHTS ONE THROUGH FOUR OF CHEMOTHERAPY Rx Instructions: 5 mg orally as directed PRN; insulin glargine [Lantus Solostar U-100 Insulin] 100 unit/mL (3 mL) insulin pen 23 unit subcut HS magnesium oxide 400 mg magnesium tablet 400 mg PO DAILY Qty: 30 0RF atorvastatin 40 mg tablet 40 mg PO DAILY diltiazem HCl 120 mg capsule,extended release 24hr 120 mg PO DAILY Eliquis 5 mg tablet 5 mg PO BID Patient Comments: TAKE 1 TABLET BY MOUTH TWICE DAILY DIRECTED FOR BLOOD CLOT PREVENTION Discharge Instructions Instructions: COVID-19 ED Additional Instructions: Please take the prescribed Paxlovid to help prevent progression of your COVID-19 infection to becoming severe. At this time you have no indications for acute hospitalization, I would also recommend using the prescribed ipratropium inhaler to help control your cough. Please follow-up with your primary care provider regarding your visit to the emergency department today. Be sure to discuss results of all test performed here today to include radiology, and laboratory testing as well as results for any pending cultures. Should your symptoms worsen, or if you develop new concerning symptoms, please return immediately emergency department for further evaluation. Stand Alone Forms: Portal Information HPI General Date/Time Provider Initiated Documentation: 07/18/25 12:33. HPI Narrative: MDM/Narrative: 60-year-old female past med history of breast cancer status posttreatment, diabetes, TIA, presents for evaluation of multiple complaints including myalgias, cough fatigue headache. Vital signs notable for tachycardia. Although symptoms are most consistent with viral syndrome, given patient's past medical history in fact has not been on her anticoagulants, will obtain CT imaging to rule out pulmonary embolus, as well as assess for signs of ACS with troponin EKG. Will also consider pneumonia. ED course: Labs are unremarkable, EKG shows no acute ischemia, CTA shows no acute pulmonary emboli or pulmonary infiltrates. Patient is COVID-positive, given her medical comorbidities will start her on Paxlovid, and reduced dose of Eliquis. On reassessment patient notes improvement following administration of medications. Will discharge follow-up primary care. Disposition: Home HPI: 60-year-old female past medical history of left-sided breast cancer status post mastectomy, chemo and radiation, diabetes, TIA, presents for evaluation of cough, body aches, fatigue, headache, and chest pain x 4 days. Patient notes she has been so unwell for the past 2 days she has been unable to take any of her medications including her apixaban. Denies any leg pain, leg swelling, vomiting, fever, chills or any other concerning symptoms. ROS: Negative besides as mentioned above Exam: Gen: A&O NAD HEENT: NCAT, EOMI, not icteric. External ears normal. No rhinorrhea. Moist mucous membranes. Neck: Supple, full range of motion, no observable masses, No meningeal sign. Lungs: No Respiratory distress. CV: RRR, no edema. Abdomen: Soft, nondistended, No rebound tenderness. MSK: No joint swelling, no redness. Skin: No rashes, petechiae, lesions. Normal color per patient. Neuro: Normal Gait, Grossly intact. Psych: Appropriate for situation. Rhythm: NSR Rate: Golf: Normal axis Intervals: Normal intervals Other findings: No acute ST segment or T wave changes to suggest acute ischemia. Labs: Laboratory Tests Range/Units 07/18/25 07/18/25 07/18/25 13:06 13:20 14:07 WBC (4.4-10.8) 10^3/uL 4.97 RBC (3.93-5.22) 10^6/uL 4.78 Hgb (11.2-15.7) g/dL 14.6 Hct (36.0-46.0) % 43.1 MCV (80-95) fL 90 MCH (27.0-33.0) pg 30.5 MCHC (32.0-36.0) % 33.9 RDW (11.7-14.6) % 11.4 L Plt Count (130-400) 10^3/uL 261 MPV (8.0-11.0) fL 11.2 H Immature Gran % % 0.4 Neutrophils % % 58.0 Lymphocytes % % 20.9 Monocytes % % 14.1 Eosinophils % % 6.0 Basophils % % 0.6 Nucleated RBC % (0.0-0.3) % 0.0 Absolute Neutrophils (1.2-6.7) 10^3/uL 2.88 Absolute Lymphocytes (1.2-3.4) 10^3/uL 1.04 L Absolute Monocytes (0.1-0.8) 10^3/uL 0.70 Absolute Eosinophils (0.0-0.7) 10^3/uL 0.30 Absolute Basophils (0.0-0.2) 10^3/uL 0.03 PT (9.1-11.1) sec 9.6 INR (0.9-1.1) 1.0 APTT (20.6-30.2) sec 26.1 VBG Lactate (<or=2.0) mmol/L 1.5 Sodium (136-145) mmol/L 142 Potassium (3.5-5.1) mmol/L 3.9 Chloride (98-107) mmol/L 107 Carbon Dioxide (20.0-31.0) mmol/L 27.3 Anion Gap (3-11) mmol/L 7.7 BUN (9-23) mg/dL 14 Creatinine (0.55-1.02) mg/dL 0.62 Est GFR (CKD-EPI 2020) (mL/min/1.73m2) 97.71 Glucose (74-106) mg/dL 213 H Calcium (8.3-10.6) mg/dL 9.0 Magnesium (1.6-2.6) mg/dL 1.7 Total Bilirubin (0.2-1.2) mg/dL 0.3 AST (<34) U/L 25 ALT (10-49) U/L 33 Alkaline Phosphatase (46-116) U/L 151 H Troponin I (<35) ng/L 5 NT-Pro-B Natriuret Pep (<300) pg/mL 40 Total Protein (5.7-8.2) g/dL 6.7 Albumin (3.2-5.0) g/dL 4.2 Lipase (<53) U/L 27 Urine Color (Yellow) Yellow Urine Clarity (Clear) Clear Urine pH (5-8) 6.0 Ur Specific [place] (1.005-1.025) 1.015 Urine Protein (Neg-Trace) mg/dL 30 H Urine Ketones (Negative) mg/dL Trace H Urine Blood (Negative) Negative Urine Nitrite (Negative) Negative Urine Bilirubin (Negative) Negative Urine Urobilinogen (Up to 0.2) mg/dL 0.2 Ur Leukocyte Esterase (Negative) Negative Urine RBC (0-2) HPF 0-2 Urine WBC (0-5) HPF 3-5 Ur Epithelial Cells (Negative) HPF Few Urine Crystals (Negative) HPF Negative Urine Bacteria (Negative) HPF Rare Urine Casts (Negative) LPF 3-5 Hyaline Urine Mucus (Negative) Moderate Urine Other (Negative) Rare Transitional Ur Culture Indicated? No Urine Glucose (Negative) mg/dL 500 H COVID-19 Source Nasopharynx SARS-CoV-2 (PCR) (Negative) Positive A Influenza Type A (PCR) (Negative) Negative Influenza Type B (PCR) (Negative) Negative RSV (PCR) (Negative) Negative Range/Units 07/18/25 14:20 WBC (4.4-10.8) 10^3/uL RBC (3.93-5.22) 10^6/uL Hgb (11.2-15.7) g/dL Hct (36.0-46.0) % MCV (80-95) fL MCH (27.0-33.0) pg MCHC (32.0-36.0) % RDW (11.7-14.6) % Plt Count (130-400) 10^3/uL MPV (8.0-11.0) fL Immature Gran % % Neutrophils % % Lymphocytes % % Monocytes % % Eosinophils % % Basophils % % Nucleated RBC % (0.0-0.3) % Absolute Neutrophils (1.2-6.7) 10^3/uL Absolute Lymphocytes (1.2-3.4) 10^3/uL Absolute Monocytes (0.1-0.8) 10^3/uL Absolute Eosinophils (0.0-0.7) 10^3/uL Absolute Basophils (0.0-0.2) 10^3/uL PT (9.1-11.1) sec INR (0.9-1.1) APTT (20.6-30.2) sec VBG Lactate (<or=2.0) mmol/L Sodium (136-145) mmol/L Potassium (3.5-5.1) mmol/L Chloride (98-107) mmol/L Carbon Dioxide (20.0-31.0) mmol/L Anion Gap (3-11) mmol/L BUN (9-23) mg/dL Creatinine (0.55-1.02) mg/dL Est GFR (CKD-EPI 2020) (mL/min/1.73m2) Glucose (74-106) mg/dL Calcium (8.3-10.6) mg/dL Magnesium (1.6-2.6) mg/dL Total Bilirubin (0.2-1.2) mg/dL AST (<34) U/L ALT (10-49) U/L Alkaline Phosphatase (46-116) U/L Troponin I (<35) ng/L 5 NT-Pro-B Natriuret Pep (<300) pg/mL Total Protein (5.7-8.2) g/dL Albumin (3.2-5.0) g/dL Lipase (<53) U/L Urine Color (Yellow) Urine Clarity (Clear) Urine pH (5-8) Ur Specific [place] (1.005-1.025) Urine Protein (Neg-Trace) mg/dL Urine Ketones (Negative) mg/dL Urine Blood (Negative) Urine Nitrite (Negative) Urine Bilirubin (Negative) Urine Urobilinogen (Up to 0.2) mg/dL Ur Leukocyte Esterase (Negative) Urine RBC (0-2) HPF Urine WBC (0-5) HPF Ur Epithelial Cells (Negative) HPF Urine Crystals (Negative) HPF Urine Bacteria (Negative) HPF Urine Casts (Negative) LPF Urine Mucus (Negative) Urine Other (Negative) Ur Culture Indicated? Urine Glucose (Negative) mg/dL COVID-19 Source SARS-CoV-2 (PCR) (Negative) Influenza Type A (PCR) (Negative) Influenza Type B (PCR) (Negative) RSV (PCR) (Negative) Radiology: PROCEDURE INFORMATION: Exam: CTA Chest With Contrast Exam date and time: 07/18/2025 1:49 PM Age: 60 years old Clinical indication: Other: SOB tachy HX of malignancy TECHNIQUE: Imaging protocol: Computed tomographic angiography of the chest with contrast. Exam focused on the arteries. 3D rendering (Not supervised by radiologist): MIP and/or 3D reconstructed images were created by the technologist. Radiation optimization: All CT scans at this facility use at least one of these dose optimization techniques: automated exposure control; mA and/or kV adjustment per patient size (includes targeted exams where dose is matched to clinical indication); or iterative reconstruction. Contrast material: OMNI 350; Contrast volume: 100 ml; Contrast route: INTRAVENOUS (IV); COMPARISON: CT CHEST PE CTA 12/19/2020 10:56 PM FINDINGS: Pulmonary arteries: No acute pulmonary emboli. Aorta: Unremarkable. No aortic aneurysm. No aortic dissection. Lungs: See Soft tissues finding. Pleural spaces: Unremarkable. No pneumothorax. No pleural effusion. Heart: Minimal calcification of the mitral valve annulus particularly small-sized hiatal hernia. Lymph nodes: Unremarkable. No enlarged lymph nodes. Bones/joints: Multilevel thoracic spine degenerative disc space narrowing and osteophyte formation. Soft tissues: Changes of prior left mastectomy with left breast prosthesis. Multiple surgical clips within the left axilla and left chest wall. Patchy ground-glass and consolidative opacities within the left lung apex and periphery of the left upper lobe, most compatible with radiation pneumonitis/scarring from left breast therapy. IMPRESSION: 1. No acute pulmonary emboli. 2. Patchy ground-glass and consolidative opacities within the left lung apex and periphery of the left upper lobe, most compatible with radiation pneumonitis/scarring from left breast therapy. Thank you for allowing us to participate in the care of your patient. Dictated and Authenticated by: Milton Rodriguez MD Related Data Home Medications ?Medication ?Instructions ?Recorded ?Confirmed acetaminophen 325 mg tablet 650 mg (2 x 325 mg) PO Q4H PRN PRN 11/29/18 07/18/25 (Tylenol) #0 tabs metformin 1,000 mg tablet 1,000 mg PO BID #60 tabs 06/19/23 07/18/25 blood sugar diagnostic (Easy Touch 07/12/23 07/18/25 Test Strip) blood-glucose meter (Easy Touch 07/12/23 07/18/25 Glucose Monitor) lisinopril 40 mg tablet 10 mg PO DAILY 02/17/24 07/18/25 insulin glargine 100 unit/mL (3 23 unit subcut HS 06/21/24 07/18/25 mL) subcutaneous pen (Lantus Solostar U-100 Insulin) olanzapine 5 mg tablet 5 mg PO .COMPLEX PRN 06/21/24 07/18/25 ondansetron HCl 8 mg tablet 8 mg PO TID 06/21/24 07/18/25 magnesium oxide 400 mg PO DAILY #30 tabs 07/17/24 07/18/25 diltiazem HCl 240 mg 240 mg PO DAILY 09/21/24 07/18/25 capsule,extended release 24 hr (Cartia XT) gabapentin 300 mg capsule 600 mg PO TID 09/26/24 07/18/25 prednisone 20 mg tablet 5 mg PO DAILY 09/26/24 07/18/25 apixaban 5 mg tablet (Eliquis) 5 mg PO BID 07/18/25 07/18/25 atorvastatin 40 mg tablet 40 mg PO DAILY 07/18/25 07/18/25 diltiazem HCl 120 mg 120 mg PO DAILY 07/18/25 07/18/25 capsule,extended release 24 hr ipratropium bromide 17 2 puff inhalation QID #12.9 grams 07/18/25 mcg/actuation HFA aerosol inhaler nirmatrelvir 300 mg (150 mg See Rx Instructions PO .COMPLEX 07/18/25 x2)-ritonavir 100 mg tablet,dose #30 tabs pack (Paxlovid) Previous Rx's ?Medication ?Instructions ?Recorded acetaminophen 325 mg tablet 650 mg (2 x 325 mg) PO Q4H PRN PRN 11/29/18 (Tylenol) #0 tabs metformin 1,000 mg tablet 1,000 mg PO BID #60 tabs 06/19/23 magnesium oxide 400 mg PO DAILY #30 tabs 07/17/24 ipratropium bromide 17 2 puff inhalation QID #12.9 grams 07/18/25 mcg/actuation HFA aerosol inhaler nirmatrelvir 300 mg (150 mg See Rx Instructions PO .COMPLEX 07/18/25 x2)-ritonavir 100 mg tablet,dose #30 tabs pack (Paxlovid) Allergies Allergy/AdvReac Type Severity Reaction Status Date / Time bacitracin Allergy rash Verified 07/18/25 12:25 Sulfa (Sulfonamide Allergy Hives Verified 07/18/25 12:25 Antibiotics) General Stated Complaint: RespSymp NELSY: 3 Course Vital Signs Vital signs: Vital Signs Temperature 37.0 C 07/18/25 12:17 Pulse 114 H 07/18/25 12:17 Respiratory Rate 20 07/18/25 12:17 Blood Pressure 184/112 H 07/18/25 12:17 Pulse Oximetry 95 07/18/25 12:17 Temperature 37.0 C 07/18/25 12:35 Temperature Source Oral 07/18/25 12:35 Pulse 114 H 07/18/25 12:35 Respiratory Rate 20 07/18/25 12:35 Respiratory Effort Normal 07/18/25 12:41 Respiratory Depth Normal 07/18/25 12:41 Blood Pressure 184/112 H 07/18/25 12:35 Blood Pressure Position Sitting 07/18/25 12:35 Pulse Oximetry 95 07/18/25 12:35 Oxygen Delivery Method Room Air 07/18/25 12:35 Oxygen Flow Rate 0 07/18/25 12:35 Pain Level 7 07/18/25 12:35 Lab/Test Results Lab/Test Results: Laboratory Tests Range/Units 07/18/25 07/18/25 07/18/25 13:06 13:20 14:07 WBC (4.4-10.8) 10^3/uL 4.97 RBC (3.93-5.22) 10^6/uL 4.78 Hgb (11.2-15.7) g/dL 14.6 Hct (36.0-46.0) % 43.1 MCV (80-95) fL 90 MCH (27.0-33.0) pg 30.5 MCHC (32.0-36.0) % 33.9 RDW (11.7-14.6) % 11.4 L Plt Count (130-400) 10^3/uL 261 MPV (8.0-11.0) fL 11.2 H Immature Gran % % 0.4 Neutrophils % % 58.0 Lymphocytes % % 20.9 Monocytes % % 14.1 Eosinophils % % 6.0 Basophils % % 0.6 Nucleated RBC % (0.0-0.3) % 0.0 Absolute Neutrophils (1.2-6.7) 10^3/uL 2.88 Absolute Lymphocytes (1.2-3.4) 10^3/uL 1.04 L Absolute Monocytes (0.1-0.8) 10^3/uL 0.70 Absolute Eosinophils (0.0-0.7) 10^3/uL 0.30 Absolute Basophils (0.0-0.2) 10^3/uL 0.03 PT (9.1-11.1) sec 9.6 INR (0.9-1.1) 1.0 APTT (20.6-30.2) sec 26.1 VBG Lactate (<or=2.0) mmol/L 1.5 Sodium (136-145) mmol/L 142 Potassium (3.5-5.1) mmol/L 3.9 Chloride (98-107) mmol/L 107 Carbon Dioxide (20.0-31.0) mmol/L 27.3 Anion Gap (3-11) mmol/L 7.7 BUN (9-23) mg/dL 14 Creatinine (0.55-1.02) mg/dL 0.62 Est GFR (CKD-EPI 2020) (mL/min/1.73m2) 97.71 Glucose (74-106) mg/dL 213 H Calcium (8.3-10.6) mg/dL 9.0 Magnesium (1.6-2.6) mg/dL 1.7 Total Bilirubin (0.2-1.2) mg/dL 0.3 AST (<34) U/L 25 ALT (10-49) U/L 33 Alkaline Phosphatase (46-116) U/L 151 H Troponin I (<35) ng/L 5 NT-Pro-B Natriuret Pep (<300) pg/mL 40 Total Protein (5.7-8.2) g/dL 6.7 Albumin (3.2-5.0) g/dL 4.2 Lipase (<53) U/L 27 Urine Color (Yellow) Yellow Urine Clarity (Clear) Clear Urine pH (5-8) 6.0 Ur Specific [place] (1.005-1.025) 1.015 Urine Protein (Neg-Trace) mg/dL 30 H Urine Ketones (Negative) mg/dL Trace H Urine Blood (Negative) Negative Urine Nitrite (Negative) Negative Urine Bilirubin (Negative) Negative Urine Urobilinogen (Up to 0.2) mg/dL 0.2 Ur Leukocyte Esterase (Negative) Negative Urine Glucose (Negative) mg/dL 500 H PFSH All Active Problems (Updated 07/18/25 @ 15:18 by Sharan Lui MD) COVID-19 (Acute) Acute pain of right lower extremity (Acute) Cancer of left breast (Acute) No-show for appointment (Acute) Left ACL tear (Acute) Tear of medial meniscus of left knee (Acute ~04/27/23) Lumbago without sciatica (Acute) CAP (community acquired pneumonia) (Acute) Apnea (Acute) Non compliance w medication regimen (Acute) Screening for colon cancer (Acute) GERD (gastroesophageal reflux disease) (Chronic) Type 2 diabetes mellitus (Acute) Constipation (Acute) Erythema multiforme (Acute) Chronic headaches (Acute) Sleeping difficulties (Acute) Benign paroxysmal vertigo (Acute) Arm numbness (Acute) Bilateral carpal tunnel syndrome (Acute) Pulmonary hypertension (Chronic) Diastolic dysfunction (Chronic) Atypical chest pain (Chronic) Herniated nucleus pulposus, C5-6 right (Acute) Diabetes mellitus type 2 in obese (Chronic) Essential hypertension (Chronic) Hypertensive urgency (Acute) Medical History (Updated 07/18/25 @ 15:18 by Sharan Lui MD) Palliative care patient History of depression Herpes simplex Insomnia Complicated grief Early satiety Obesity BPPV (benign paroxysmal positional vertigo) Diabetes mellitus Hypertension Surgical History History of tubal ligation Family History Mother Heart disease Ovarian cancer Social History Smoking/Tobacco Use Status: Never Smoking risk assessment performed?: Yes Alcohol Intake: former Drug use: Never Substance use type: does not use Household members: spouse Housing: house Number of Children: 5 What is your relationship status?: Panel score (0-1 are the most socially isolated patients): 1 Seatbelt use: always Do you feel safe at home: Yes Do you feel safe in your relationship?: Yes History History 6 Para 5 Hx # Term Pregnancies Multiple births Hx # Pregnancies Ectopic pregnancies AB induced Hx Number of Living Children AB spontaneous
[2025-07-18 14:30] LABS: RBC 0-2 HPF (0-2)
[2025-07-18 14:31] LABS: C & S Indicated? No
[2025-07-18 14:53] LABS: Troponin I 5 ng/L (<35)
[2025-07-18 15:12] LABS: RSV PCR Negative (Negative)
[2025-07-18 15:15] LABS: COVID-19 PCR Positive (Negative)
[2025-07-18 15:37] VITALS: BP 103/96; PULSE 88; RESP 16; O2SAT 97
== END 2025-07-18 15:39 | disposition home or self-care (01) ==
PROVIDERS: Emergency Provider General Practice; PCP Nurse Practitioner Primary Care
DX: U07.1 COVID-19 (principal); Z11.52 Encounter for screening for COVID-19; Z86.79 Personal history of other diseases of the circulatory system
CPT/HCPCS: 36415; 71275; 80053; 83690; 87637; 93005; 96361; 96374; 96375; 99285; 81003; 81015; 83605; 83735; 83880; 84484; 85025; 85610; 85730; 93010; 99284; J0131; J1200; J1790; J3490